=== PATIENT | male | born 1950 | race Caucasian/White ===

== ENCOUNTER 2024-02-01 20:30 | Outpatient (REF) | payer MEDICARE, SELFPAY ==
[2024-02-01 18:27] LABS: HCT 51.8 % (40.0-50.0); HGB 16.5 g/dL (13.5-17.5); MCH 28.1 pg (27.0-33.0); MCHC 31.9 % (32.0-36.0); MCV 88 fL (80-95); MPV 10.2 fL (8.0-11.0); Platelet Count 182 10^3/uL (130-400); RBC 5.88 10^6/uL (4.36-5.78); RDW 17.2 % (11.8-14.1); RDW-SD 54.5 fL; WBC 5.01 10^3/uL (4.4-10.8)
[2024-02-01 18:37] LABS: ALT 50 U/L (16-63); AST 28 U/L (15-37); Albumin 4.1 g/dL (3.4-5.0); Alkaline Phosphatase 80 U/L (46-116); Anion Gap 9.9 mmol/L (3-11); BUN 18 mg/dL (7-18); CO2 27.1 mmol/L (21.0-32.0); CREATININE 1.1 mg/dL (0.70-1.30); Calcium 9.7 mg/dL (8.5-10.1); Calculated LDL 135 mg/dL (<100); Chloride 104 mmol/L (98-107); Cholesterol 226 mg/dL (<200); Estimated GFR 71.32 (mL/min/1.73m2); Glucose 94 mg/dL (74-106); HDL Cholesterol 46 mg/dL (40-60); Potassium 4.6 mmol/L (3.5-5.1); Sodium 141 mmol/L (136-145); Total Protein 7.9 g/dL (6.4-8.2); Triglyceride 226 mg/dL (<150)
[2024-02-10 13:06] LABS: Testosterone, Free 3.07 ng/dL (3.28-12.2); Testosterone, Total 78 ng/dL (240-950)
== END 2024-02-01 20:31 | disposition home or self-care (01) ==
LOC: NCHCN 20:30
PROVIDERS: Visit Provider Family Medicine
DX: E78.5 Hyperlipidemia, unspecified (principal); E29.1 Testicular hypofunction
CPT/HCPCS: 80053; 80061; 84402; 84403; 85027

== ENCOUNTER 2024-07-19 22:07 | Outpatient (REF) | payer MEDICARE, SELFPAY ==
[2024-07-19 21:31] LABS: Bilirubin Negative (Negative); Blood Negative (Negative); Clarity Clear (Clear); Glucose Negative (Negative); Ketones Negative (Negative); Leukocyte Esterase Negative (Negative); Nitrite Negative (Negative); Specific Gravity 1.025 (1.005-1.025); Urobilinogen 0.2 mg/dL (Up to 0.2)
[2024-07-19 21:32] LABS: Abs Immature Grans 0.02 10^3/uL (0.0-0.06); Absolute Basophil Count 0.06 10^3/uL (0.0-0.2); Absolute Eosinophil Count 0.16 10^3/uL (0.0-0.7); Absolute Lymphocyte Count 2.15 10^3/uL (1.2-3.4); Absolute Monocyte Count 0.78 10^3/uL (0.1-0.8); Absolute Neutrophil Count 3.69 10^3/uL (1.2-6.7); Basophils % 0.9 %; Eosinophils % 2.3 %; HCT 54.9 % (40.0-50.0); Immature Grans % 0.3 %; Lymphocytes % 31.3 %; MCH 30.9 pg (27.0-33.0); MCHC 32.8 % (32.0-36.0); MCV 94 fL (80-95); MPV 9.9 fL (8.0-11.0); Monocytes % 11.4 %; Neutrophils % 53.8 %; Platelet Count 198 10^3/uL (130-400); RBC 5.83 10^6/uL (4.36-5.78); RDW 14.8 % (11.8-14.1); RDW-SD 51.6 fL; WBC 6.86 10^3/uL (4.4-10.8)
[2024-07-19 21:53] LABS: ALT 57 U/L (16-63); AST 30 U/L (15-37); Alkaline Phosphatase 74 U/L (46-116); Anion Gap 9.4 mmol/L (3-11); BUN 15 mg/dL (7-18); CO2 26.6 mmol/L (21.0-32.0); CREATININE 1.1 mg/dL (0.70-1.30); Chloride 101 mmol/L (98-107); Estimated GFR 70.88 (mL/min/1.73m2); Glucose 83 mg/dL (74-106); Lipase 42 U/L (16-77); Potassium 4.3 mmol/L (3.5-5.1); Sodium 137 mmol/L (136-145); Total Protein 7.8 g/dL (6.4-8.2)
[2024-07-19 21:58] LABS: Calcium 9.8 mg/dL (8.5-10.1)
--- OUTSIDE RECORDS SUMMARY | 2024-07-19 22:10 | XMS_ITS | Encounter Summary ---
Author Organization [facility] Address [address] [place] [address] Care Team Providers Care Electrical Assembler Name Role Phone Marco Aleman MD Primary Care Provider [phone] Reason for Visit * Auth/Cert (Routine) Specialty Diagnoses / Procedures Referred By Yi cummings Referred To Contact Diagnoses Chronic pain of left knee Chronic pain of left knee [M25.562, G89.29] Procedures ME ARTHROSCOPY KNEE REMOVAL LOOSE/FOREIGN BODY ME ARTHRS KNEE W/MENISCECTOMY MED&LAT W/SHAVING ME ARTHRS KNEE DEBRIDEMENT/SHAVING ARTCLR CRTLG ME ARTHROSCOPY KNEE SYNOVECTOMY LIMITED SPX ARTHROSCOPY, KNEE, WITH LOOSE OR FOREIGN BODY REMOVAL MENISCECTOMY, KNEE, MEDIAL AND LATERAL, ARTHROSCOPIC, WITH ARTICULAR CARTILAGE SHAVING ARTHROSCOPY, KNEE, WITH DEBRIDEMENT OR SHAVING OF ARTICULAR CARTILAGE ARTHROSCOPY, KNEE, WITH LIMITED SYNOVECTOMY Referral ID Status Reason Start Date Expiration Date Visits Re quested Visits Authorized [id number] 1 1 Encounter Details Date Type Department Care Team (Late st Contact Info) Description 02/16/2024 13:05 EDT - 02/16/2024 14:15 EDT Surgery [facility] Room [address] [place], [place] [id number] Asad Patel MD [address] [facility] [address] [place], [place] [address] ARTHROSCOPY, KNEE, WITH LOOSE OR FOREIGN BODY REMOVAL [[id number] (CPT??)] Surgery Details Date/Time Status Location OR Service Patient Class Case Cl ass Case Type Trauma Case? 02/16/24 1305 Posted [facility] [place] OR Orthopedics [facility] Outpatient Surgery H - Elective Panel 1 Procedure LRB Anes Op Region Wound Class Comments ARTHROSCOPY, KNEE, WITH LOOS E OR FOREIGN BODY REMOVAL Left General Knee Class I/ Clean MENISCECTOMY, KNEE, MEDIAL A ND LATERAL, ARTHROSCOPIC, WITH ARTICULAR CARTILAGE SHAVING Left General Knee Class I/ Clean ARTHROSCOPY, KNEE, WITH DEBR IDEMENT OR SHAVING OF ARTICULAR CARTILAGE Left General Knee Class I/ C lean ARTHROSCOPY, KNEE, WITH LIMI JORDEN SYNOVECTOMY Left General Knee Class I/ Clean Surgeon Surgeon Role Service Panel Asad Patel MD Primary Orthopedics 1 Mami Grover PA-C Assisting Orthopedics 1 Special Needs CM documented in this encounter Social History Tobacco Use Types Packs/Day Years Used Date Smoking Tobacco: Former Cigarettes 1 15 Smokeless Tobacco: Never Alcohol Use Standard Drinks/Week Comments Yes 7 (1 standard drink = 0.6 oz pur e alcohol) Interpersonal Safety Answer Date Record ed Physically Hurt Never 06/03/2020 Verbally Threaten Not on file 06/03/2020 Sex and Gender Information Value Date Recorded Sex Assigned at Male 12/26/2021 11:38 EST Gender Identity Male 06/20/2020 15:19 EDT Sexual Orientation Straight 12/26/2021 11 :37 EST documented as of this encounter Last Filed Vital Signs Vital Sign Reading Time Taken Comments Blood Pressure 158/81 02/16/2024 1144 EDT Pulse - - Temperature 36.5 ??C (97.7 ??F) 02/16/2024 1144 EDT Respiratory Rate 18 02/16/2024 1231 EDT Oxygen Saturation 96% 02/16/2024 1231 EDT Inhaled Oxygen Concentration - - Weight 111.1 kg (245 lb) 02/16/2024 1130 EDT Height 180.3 cm (5' 11) 02/16/2024 1130 EDT Body Mass Index 34.17 02/16/2024 1130 EDT documented in this encounter Functional Status Functional Status Response Date of Assess ment Are you deaf or do you have serious difficulty h earing? No 02/10/2023 Are you blind or do you have serious difficulty seeing, even when wearing glasses? No 02/10/2023 Do you have serious difficul ty walking or climbing stairs? (5 years old or older) No 02/10/2023 Do you have difficulty dress ing or bathing? (5 years old or older) No 02/10/2023 Because of a physical, menta l, or emotional condition, do you have difficulty doing errands alone such as visiting a doctor's office or shopping? (15 years old or older) No 02/10/2023 Cognitive Status Response Date of Assessm ent Because of a physical, menta l, or emotional condition, do you have serious difficulty concentrating, remembering, or making decisions? (5 years old or older) No 02/10/2023 documented as of this encounter Discharge Instructions * Discharge Instructions* Teresa Ortiz RN - 02/16/2024 12:00 EDT Knee Surgery Patient Information Packet Post-Operative Care Instructions In this packet, we have complied some information to make your recovery easier after surgery. If you have any questions, please don't hesitate to call the office and we will try our best to answer your questions are quickly and completely as possible. Medications You will be provided with specific prescriptions for medications at your pre- operative appointment.These medications may include specific pain medications, medications to relieve muscle spasm, anxiety, and insomnia, nausea, and medication to help prevent blood clots. In all cases, please take these medications according to the respective instructions. Post-Operative medications Medication Dosage Frequency Reason Oxycodone 5mg 1-2 tab per 6 hours Pain Robaxin 500mg 1-2 tabs per 6 hours Muscle spasm Ondansetron (Zofran) 4mg 1 per 6-8 hours Nausea Aspirin 325mg Depending on surgery DVT prevention Prescription pain Medication Take this medication with food. Additionally, pain medications may cause post- operative constipation. Please drink plenty of fluids, and take the prescribed stool softeners. Please do not: Mix with alcohol or marijuana Drive while taking prescription pain medication Take any additional Tylenol if on Vicodin, Percocet, or [place] unless instructed to by a doctor No more than 3000mg (3g) of Tylenol per 24 hour period Anti Inflammatory USE Please try to limit the use of nonsteroidal anti-inflammatories for the first 4 weeks after surgery. This does not include aspirin or indomethacin prescribed during some procedures. Should your pain not be controlled on the prescribed medications or with the addition of Tylenol at home, please contact our office for discussion regarding the possible addition of nonsteroidal anti-inflammatory medication to your pain control plan. Post-Operative Care Instructions Crutch Use Depending of the type of surgery performed, you may be required to use crutches. You will be provided with a specific physical therapy protocol which will explain the details of crutch use. BRACE/SLING Use Weight-bearing ? Non-weight bearing: No pressure may be applied to affected leg. ? Toe Touch Weight Bearing: A small amount of your weight (no more than 10 lbs) may be supported bythe affected leg. ? Partial Weight Bearing: % of your total weight may be supported by the affected leg. X Full Weight Bearing: All of your weight may be supported by the affected leg. aCTIVE fOOT/calf Pumps 10 up and down pumps of feet every hour while awake. Please perform these particularly when at rest, in a vehicle, or on an airplane Breathing Exercises You will be provided with an incentive spirometer after surgery. Please use this to perform 10 deep breaths every hour while awake. Icing AND eLEVATION Ice your knee, particularly in the first several weeks, is encouraged Icing may be performed by applying ice in a 30 minutes on/off pattern. Always have a protective layer between your skin and the ice. Elevation of the leg aids in preventing swelling and with pain control. Dressing Changes and SHOWERING Please keep dressings clean and intact You may remove the JAY JAY wrap after 3 days but keep underlying dressing intact If showering, avoid direct contact of water with dressing. Sutures Dissolvable These look like clear fishing line. They require no care. Some incisions have ???tails?? of suturefrom either end. If this is the case, they will be cut during the first follow-up appointment. These sutures gradually resorb on their own below the skin. physical therapy You will be provided with a physical therapy prescription. Please contact if any questions. It is extremely important to remain complaint with the instructions. Physical therapy typically begins the day after the surgery. fOLLOW-UP aPPOINTMENTS You will be scheduled for a follow-up appointment prior to your surgery. At this visit, your surgeon and the staff will ensure that the incision is healing well, will remove sutures if necessary, will review post-operative instructions and operative findings, and answer any and all questions that you may have. Questions / Problems Call our office or present to your primary doctor or an emergency room if the following occur: Fever (greater than 101.8 degrees F), chills, sweats Non-clear drainage from the incision and/or significant redness surrounding incision Calf swelling, redness, pain, chest pain, difficulty breathing Office Contact Number: [phone] You had tylenol 975 mg at 4 pm, next dose due at 10 pm if needed documented in this encounter Medications at Time of Discharge Medication Sig Dispensed Refills Start Date End Date ascorbic acid, vitamin C, (VITAMIN C) 500 mg tablet Take 2 Tablets by mouth daily. aspirin 325 mg tablet Take 1 Tablet by mouth daily. BENFOTIAMINE ORAL Take by mouth daily. blood glucose meter Glucose monitor,Sig: test once a day once a day 07/19/2018 blood glucose test strips Brand: One Touch Ultra, test blood sugar once daily 100 Each 3 02/04/2021 buPROPion (WELLBUTRIN SR) 150 mg SR tablet Take 1 tablet by mouth once daily 90 Tablet 09/11/2023 cholecalciferol, Vitamin D3, 125 mcg (5000 unit) capsule Take by mouth daily. clopidogreL (PLAVIX) 75 mg tabletIndications:Dyslip idemia Take 1 Tablet by mouth daily. 90 Tablet 3 10/16/2022 DIABETIC SUPPLIES, [facility] Sy[facility]cc 02/17/2017 diazePAM (VALIUM) 5 mg tablet Take 1-2 tabs 1 hr prior to flights and before procedure 10 Tablet 03/12/2023 famotidine (PEPCID) 40 mg tablet Take 1 Tablet by mouth daily. lamoTRIgine (LAMICTAL) 25 mg tablet One po bid 180 Tablet 5 02/22/2023 LANCETS & BLOOD GLUCOSE STRIPS [facility] test strips and lancets for glucose monitor , Sig: test once a day test once a day 09/20/2018 Magnesium 250 mg tablet Take 500 mg by mouth daily. niacin (NICOTINIC ACID) 100 mg tablet Take 1 Tablet by mouth daily. nitroGLYCERIN (NITROSTAT) 0.[address] 1 Tablet under the tongue as needed. 07/07/2014 Ggwrx-0-KVS-EPA-Fish Oil 1,000 (120-180) mg capsule Take 1,000 mg by mouth 2 times daily. POTASSIUM ACETATE MISC 90 mg by misc (non-drug; combo route) route daily. propRANolol (INDERAL) 10 mg tablet Take 1 Tablet by mouth 2 times daily. 20mg in AM, 10mg in PM testosterone cypionate (DEPO-TESTOSTERONE) 200 mg/mL injection Inject 1.5 mL into the muscle once a week. 2 vials of 10mL please Daily Max: 300 mg 20 mL 1 05/21/2023 VITAMIN B COMPLEX ORAL Take by mouth daily. vitamin E mixed/tocotrienol (VITAMIN E COMPLEX ORAL) Take 400 mg by mouth daily. erythromycin (ROMYCIN) 5 mg/gram (0.5 %) ophthalmic ointment Apply 11/05 strip 3.5 g 10/10/2021 06/03/2024 L.acid/L.casei/B.bif/B.l on/FOS (PROBIOTIC BLEND ORAL) Take by mouth daily. 06/03/2024 MEDICAL MARIJUANA 06/03/2024 methocarbamoL (ROBAXIN) 500 mg tablet Take 1 Tablet by mouth 4 times daily as needed for Muscle Spasms or Pain. 20 Tablet 02/16/2024 06/03/2024 ondansetron (ZOFRAN-ODT) 4 mg disintegrating tablet Take 1 Tablet by mouth every 8 hours as needed for Nausea. 15 Tablet 02/16/2024 06/03/2024 oxyCODONE (ROXICODONE) 5 mg immediate release tablet Take 1 Tablet by mouth every 6 hours as needed for Pain. Daily Max: 20 mg 9 Tablet 02/16/2024 06/03/2024 pantoprazole (PROTONIX) 40 mg tablet Take 1 tablet by mouth once daily 90 Tablet 09/11/2023 06/03/2024 ubidecarenone/vitamin E mixed (COQ10 SG 100 ORAL) Take by mouth daily. 06/03/2024 documented as of this encounter Ordered Prescriptions Prescription Sig Dispensed Refills Start Date End Da te ondansetron (ZOFRAN-ODT) 4 mg disintegrating tablet Take 1 Tablet by mouth every 8 hours as needed for Nausea. 15 Tablet 02/16/2024 06/03/2024 methocarbamoL (ROBAXIN) 500 mg tablet Take 1 Tablet by mouth 4 times daily as needed for Muscle Spasms or Pain. 20 Tablet 02/16/2024 06/03/2024 oxyCODONE (ROXICODONE) 5 mg immediate release tablet Take 1 Tablet by mouth every 6 hours as needed for Pain. Daily Max: 20 mg 9 Tablet 02/16/2024 06/03/2024 documented in this encounter Discharge Disposition Disposition Code Departure Means Destination Comment s Home or Self Care Car Home documented in this encounter H&P Notes * Asad Patel MD - 02/16/2024 1200 EDT The preoperative history and physical which was performed within 30 days of this procedure has been reviewed and the clinically appropriate elements of the physical examination have been repeated. There are no changes to the documented history and physical or if so such changes are documented below General Exam: GENERAL APPEARANCE: no acute distress, pleasant, cooperative. CHEST: normal shape and expansion. HEART: regular rate and rhythm, no murmurs. LUNGS: clear to auscultation, unlabored. ABDOMEN: no deformity, distention, no obvious distress Asad Patel MD 02/16/2024 12:00 Source Note - Asad Patel MD - 02/16/2024 11:59 EDT The patient presents today for surgical consultation. Please see prior notes full HPI. Primary concern at this time is mechanical symptoms associated with a loose body throughout the knee. At baseline, he reports that he has minimal pain. He is aware that he does have significant radiographic signsof arthritis. Interested in surgical alleviation of the mechanical symptoms. The patient is unable to tolerate an MRI secondary to severe claustrophobia. A 10-point review of systems has been reviewed and all are negative unless noted above. Past Medical History: Diagnosis Date Abnormal stress test 04/20/2017 s/p JANET Activity, other involving cardiorespiratory exercise 01/30/23- able to climb 2 FOS w/o SOB Amblyopia per pt-left eye Anemia 02/10/2023 Anomaly, cardiac cardiac stents Arrhythmia 01/30/23- currently has zio patch for palpitations, CP, and SOB Cancer ([facility]) prostates and skin cancer Cerebral artery occlusion with cerebral infarction ([facility]) 2018 01/30/23-Acute ischemic left MCA stroke. no residual deficits Chest pain 01/30/23- currently has zio patch for palpitations, CP, and SOB Claustrophobia 01/30/23- in closed room Colon polyp Exercise involving housework GERD (gastroesophageal reflux disease) 01/30/23- controlled w/ Protonix, sleeps on side for comfort History of general anesthesia Hyperlipidemia Hypertension 01/30/23- well controlled per pt LA (myocardial infarction) ([facility]) 2007 x2. 2008 & 2010. JANET x4 Poor dentition 01/30/23- reports having 2 broken teeth Rash 01/30/23- eczema on face Seizures ([facility]) 2019 01/30/23- well controlled on Lamictal, thought to be due to high dose Wellbutrin. None since 2018 Shortness of breath 01/30/23- currently has zio patch for palpitations, CP, and SOB Social History Tobacco Use Smoking status: Former Smokeless tobacco: Never Substance Use Topics Alcohol use: Yes Alcohol/week: 7.0 standard drinks of alcohol Types: 7 Glasses of wine per week Past Surgical History: Procedure Laterality Date CARDIAC CATHERIZATION 12/2004 normal - [address] Evans [facility] COLONOSCOPY 12/2004 WNL - Dr. Turcios f/u 10 yrs CORONARY ANGIOPLASTY WITH STENT PLACEMENT 2010 NSTEMI s/p JANET FOOT SURGERY Right tendon surgery RADICAL PROSTATECTOMY 12/2004 Laparoscopic radical prostatectomy, umbilical hernia repair - Dr. Encinas [facility] SINUS SURGERY nasal / sinus surgery Allergies Allergen Reactions Other - See Comments Lisinopril Swelling of tongue Sulfa (Sulfonamide Antibiotics) Shortness Of Breath and Swelling Cyclobenzaprine Other reaction(s): Unknown Ibuprofen Swelling Other reaction(s): edema Naproxen Sodium Swelling Other reaction(s): edema Tramadol Other (See Comments) Other reaction(s): DIZZINESS Medications Prior to Today's Visit Medication Sig ascorbic acid, vitamin C, (VITAMIN C) 500 mg tablet Take 2 Tablets by mouth daily. aspirin 325 mg tablet Take 1 Tablet by mouth daily. BENFOTIAMINE ORAL Take by mouth daily. blood glucose meter Glucose monitor,Sig: test once a day once a day (Patient not taking: Reported on 12/08/2023) blood glucose test strips Brand: One Touch Ultra, test blood sugar once daily (Patient not taking: Reported on 12/08/2023) buPROPion (WELLBUTRIN SR) 150 mg SR tablet Take 1 tablet by mouth once daily cholecalciferol, Vitamin D3, 125 mcg (5000 unit) capsule Take by mouth daily. clopidogreL (PLAVIX) 75 mg tablet Take 1 Tablet by mouth daily. DIABETIC SUPPLIES, MISCELLAN. MISC Syringe 3cc (Patient not taking: Reported on 12/08/2023) diazePAM (VALIUM) 5 mg tablet Take 1-2 tabs 1 hr prior to flights and before procedure erythromycin (ROMYCIN) 5 mg/gram (0.5 %) ophthalmic ointment Apply 11/05 strip (Patient not taking: Reported on 12/08/2023) L.acid/L.casei/B.bif/B.mila/FOS (PROBIOTIC BLEND ORAL) Take by mouth daily. (Patient not taking: Reported on 12/08/2023) lamoTRIgine (LAMICTAL) 25 mg tablet One po bid LANCETS & BLOOD GLUCOSE STRIPS MIS test strips and lancets for glucose monitor , Sig: test once a day test once a day Magnesium 250 mg tablet Take 500 mg by mouth daily. MEDICAL MARIJUANA niacin (NICOTINIC ACID) 100 mg tablet Take 1 Tablet by mouth 2 times daily. nitroGLYCERIN (NITROSTAT) 0.[address] 1 Tablet under the tongue as needed. Ayggw-4-HDU-EPA-Fish Oil 1,000 (120-180) mg capsule Take 1,000 mg by mouth 2 times daily. pantoprazole (PROTONIX) 40 mg tablet Take 1 tablet by mouth once daily (Patient not taking: Reported on 12/08/2023) POTASSIUM ACETATE MISC 90 mg by misc (non-drug; combo route) route daily. testosterone cypionate (DEPO-TESTOSTERONE) 200 mg/mL injection Inject 1.5 mL into the muscle once aweek. 2 vials of 10mL please Daily Max: 300 mg ubidecarenone/vitamin E mixed (COQ10 SG 100 ORAL) Take by mouth daily. vitamin E mixed/tocotrienol (VITAMIN E COMPLEX ORAL) Take 400 mg by mouth daily. No facility-administered medications prior to visit. OBJECTIVE: There were no vitals taken for this visit. On physical exam, the patient is found to be an alert and cooperative male who appears to be alert and oriented x 3. He is well-developed, well-nourished and in no significant distress. Breathing is unlabored. Skin is warm pink and dry to inspection and palpation. Overlying skin intact. No gross deformity. Mechanical symptoms not palpable currently, but the patient reports that this is not unusual for him. He states that he does have periods of time where he is asymptomatic, and then the loose body changes into a symptomatic area in his knee with significantdiscomfort. Stable to stress throughout. Distally neurovascular intact. ASSESSMENT: Left knee loose body PLAN: I had a detailed discussion with the patient today. Overall, he has a good understanding thatany potential surgical intervention from an arthroscopic standpoint would not be treating his underlying degenerative changes, but only his mechanical symptoms and loose body. He voiced understandingof this and would like to proceed. Written informed sent was obtained. He will meet with the surgery coordinator to discuss the details of operative booking. The patient will require clearance from both primary care as well as cardiology. All questions answered in detail. * Asad Patel MD - 02/16/2024 1159 EDT The patient presents today for surgical consultation. Please see prior notes full HPI. Primary concern at this time is mechanical symptoms associated with a loose body throughout the knee. At baseline, he reports that he has minimal pain. He is aware that he does have significant radiographic signsof arthritis. Interested in surgical alleviation of the mechanical symptoms. The patient is unable to tolerate an MRI secondary to severe claustrophobia. A 10-point review of systems has been reviewed and all are negative unless noted above. Past Medical History: Diagnosis Date Abnormal stress test 04/20/2017 s/p JANET Activity, other involving cardiorespiratory exercise 01/30/23- able to climb 2 FOS w/o SOB Amblyopia per pt-left eye Anemia 02/10/2023 Anomaly, cardiac cardiac stents Arrhythmia 01/30/23- currently has zio patch for palpitations, CP, and SOB Cancer ([facility]) prostates and skin cancer Cerebral artery occlusion with cerebral infarction ([facility]) 2018 01/30/23-Acute ischemic left MCA stroke. no residual deficits Chest pain 01/30/23- currently has zio patch for palpitations, CP, and SOB Claustrophobia 01/30/23- in closed room Colon polyp Exercise involving housework GERD (gastroesophageal reflux disease) 01/30/23- controlled w/ Protonix, sleeps on side for comfort History of general anesthesia Hyperlipidemia Hypertension 01/30/23- well controlled per pt LA (myocardial infarction) ([facility]) 2007 x2. 2008 & 2011. JANET x4 Poor dentition 01/30/23- reports having 2 broken teeth Rash 01/30/23- eczema on face Seizures ([facility]) 2019 01/30/23- well controlled on Lamictal, thought to be due to high dose Wellbutrin. None since 2018 Shortness of breath 01/30/23- currently has zio patch for palpitations, CP, and SOB Social History Tobacco Use Smoking status: Former Smokeless tobacco: Never Substance Use Topics Alcohol use: Yes Alcohol/week: 7.0 standard drinks of alcohol Types: 7 Glasses of wine per week Past Surgical History: Procedure Laterality Date CARDIAC CATHERIZATION 12/[address] - [address] Evans [facility] COLONOSCOPY 12/2004 WNL - Dr. Turcios f/u 10 yrs CORONARY ANGIOPLASTY WITH STENT PLACEMENT 2010 NSTEMI s/p JANET FOOT SURGERY Right tendon surgery RADICAL PROSTATECTOMY 12/2004 Laparoscopic radical prostatectomy, umbilical hernia repair - Dr. Encinas [facility] SINUS SURGERY nasal / sinus surgery Allergies Allergen Reactions Other - See Comments Lisinopril Swelling of tongue Sulfa (Sulfonamide Antibiotics) Shortness Of Breath and Swelling Cyclobenzaprine Other reaction(s): Unknown Ibuprofen Swelling Other reaction(s): edema Naproxen Sodium Swelling Other reaction(s): edema Tramadol Other (See Comments) Other reaction(s): DIZZINESS Medications Prior to Today's Visit Medication Sig ascorbic acid, vitamin C, (VITAMIN C) 500 mg tablet Take 2 Tablets by mouth daily. aspirin 325 mg tablet Take 1 Tablet by mouth daily. BENFOTIAMINE ORAL Take by mouth daily. blood glucose meter Glucose monitor,Sig: test once a day once a day (Patient not taking: Reported on 12/08/2023) blood glucose test strips Brand: One Touch Ultra, test blood sugar once daily (Patient not taking: Reported on 12/08/2023) buPROPion (WELLBUTRIN SR) 150 mg SR tablet Take 1 tablet by mouth once daily cholecalciferol, Vitamin D3, 125 mcg (5000 unit) capsule Take by mouth daily. clopidogreL (PLAVIX) 75 mg tablet Take 1 Tablet by mouth daily. DIABETIC SUPPLIES, MISCELLAN. MISC Syringe 3cc (Patient not taking: Reported on 12/08/2023) diazePAM (VALIUM) 5 mg tablet Take 1-2 tabs 1 hr prior to flights and before procedure erythromycin (ROMYCIN) 5 mg/gram (0.5 %) ophthalmic ointment Apply /4 strip (Patient not taking: Reported on 12/08/2023) L.acid/L.casei/B.bif/B.mila/FOS (PROBIOTIC BLEND ORAL) Take by mouth daily. (Patient not taking: Reported on 12/08/2023) lamoTRIgine (LAMICTAL) 25 mg tablet One po bid LANCETS & BLOOD GLUCOSE STRIPS MISC test strips and lancets for glucose monitor , Sig: test once a day test once a day Magnesium 250 mg tablet Take 500 mg by mouth daily. MEDICAL MARIJUANA niacin (NICOTINIC ACID) 100 mg tablet Take 1 Tablet by mouth 2 times daily. nitroGLYCERIN (NITROSTAT) 0.[address] 1 Tablet under the tongue as needed. Hlobd-6-NEK-EPA-Fish Oil 1,000 (120-180) mg capsule Take 1,000 mg by mouth 2 times daily. pantoprazole (PROTONIX) 40 mg tablet Take 1 tablet by mouth once daily (Patient not taking: Reported on 12/08/2023) POTASSIUM ACETATE MISC 90 mg by misc (non-drug; combo route) route daily. testosterone cypionate (DEPO-TESTOSTERONE) 200 mg/mL injection Inject 1.5 mL into the muscle once aweek. 2 vials of 10mL please Daily Max: 300 mg ubidecarenone/vitamin E mixed (COQ10 SG 100 ORAL) Take by mouth daily. vitamin E mixed/tocotrienol (VITAMIN E COMPLEX ORAL) Take 400 mg by mouth daily. No facility-administered medications prior to visit. OBJECTIVE: There were no vitals taken for this visit. On physical exam, the patient is found to be an alert and cooperative male who appears to be alert and oriented x 3. He is well-developed, well-nourished and in no significant distress. Breathing is unlabored. Skin is warm pink and dry to inspection and palpation. Overlying skin intact. No gross deformity. Mechanical symptoms not palpable currently, but the patient reports that this is not unusual for him. He states that he does have periods of time where he is asymptomatic, and then the loose body changes into a symptomatic area in his knee with significantdiscomfort. Stable to stress throughout. Distally neurovascular intact. ASSESSMENT: Left knee loose body PLAN: I had a detailed discussion with the patient today. Overall, he has a good understanding thatany potential surgical intervention from an arthroscopic standpoint would not be treating his underlying degenerative changes, but only his mechanical symptoms and loose body. He voiced understandingof this and would like to proceed. Written informed sent was obtained. He will meet with the surgery coordinator to discuss the details of operative booking. The patient will require clearance from both primary care as well as cardiology. All questions answered in detail. documented in this encounter OR Notes * OR Surgeon - Asad Patel MD - 02/16/2024 1417 EDT OPERATIVE REPORT PATIENT NAME: Roland Vega DATE OF : 52 SURGEON: Frida Patel MD [employer] OPERATOR: LAZARO Birch DATE OF SURGERY: 02/16/24 PREOPERATIVE DIAGNOSIS: Left knee medial and lateral meniscus tear Left knee synovitis and pain Left knee loose body POSTOPERATIVE DIAGNOSIS: As above PROCEDURES PERFORMED: Left knee arthroscopy with loose body removal Left knee arthroscopy with synovectomy, debridement, chondroplasty Left knee arthroscopy with partial medial and lateral meniscectomy ANESTHESIA: General IVF: Please see anesthesia report EBL: Minimal TOURNIQUET TIME: 11 minutes SPECIMENS: None DRAINS: None IMPLANTS: None DISPOSITION: Stable to PACU INDICATIONS FOR PROCEDURE: The patient is a pleasant 73 year-old who presents with a chief complaint of left knee pain. They were diagnosed with a left knee loose body. They failed to improve with nonoperative management and were offered surgery. They elected to proceed. The risks and benefits of the procedure were discussedin detail and the patient voiced their understanding and written informed consent was obtained. PROCEDURE IN DETAIL: The patient was met in the preoperative holding area where the consent was again reviewed. They voiced understanding elected to proceed. They were brought to the operating room where general anesthesia was induced without complication. The left lower extremity was prepped and draped in the usual standard sterile fashion. An orthopedic timeout was conducted to confirm correct patient name, operative site and all procedures to be performed. Antibiotics were infused. The tourniquet was inflated and a standard anterolateral viewing portal was created. The arthroscope was inserted into the knee joint and a thorough diagnostic arthroscopy was performed. This was notable for significant synovitis within the suprapatellar pouch and anterior interval. There is a large impinging osteophyte of the inferior aspect of the patella. There is a 1 cm sized loose body within the superior medial aspect of the joint. ACL and PCL intact. Peripheral tearing of the medial meniscus. Peripheral tearing of the lateral meniscus. Grade 3-4 changes in the patellofemoral compartment. Grade 3 changes in the medial and lateral compartment.. Under direct spinal needle visualization,an anterior medial working portal was created. Through this working portal, commendation mechanicalshaver and radiofrequency wand were utilized to perform a synovectomy, debridement, chondroplasty. Loose body was removed. The aforementioned impinging osteophyte was removed. Using a combination of meniscal biter and mechanical shaver, a medial and lateral partial meniscectomy was performed. Following this, attention was turned to wound closure. All wounds were thoroughly irrigated. They were closed with buried 3-0 Monocryl suture. Sterile dressings were applied. The patient was awakened from anesthesia and transferred the PACU in stable condition. All sponge and needle counts were correct at the end of the case. A skilled assistant professor surgical technology was necessary to complete the procedure in a technically safe and efficient manner. POSTOPERATIVE PLAN: The patient will be weightbearing as tolerated on the affected extremity. They were provided with all necessary postoperative instructions, follow-up information, and medications. It is our expectation that we will see the patient back in the office in 10 to 14 days, or earlier if there are any concerns. * Preprocedure Instructions - Alondra Arnold RN - 02/12/2024 1000 EDT The following preoperative instructions have been provided via phone. Date of procedure: 02/16/24 Arrival time: 1145 (this time is subject to change, we would call you the day before if a change occurs) Roland Vega has been instructed as follows regarding medication administration for the day of the scheduled procedure. Instructions for Taking Medications Day of Surgery Medication Dose and frequency Last Dose Hold Day of Surgery Take Day of Surgery ascorbic acid, vitamin C, (VITAMIN C) 500 mg tablet Take 2 Tablets by mouth daily. X aspirin 325 mg tablet Take 1 Tablet by mouth daily. X BENFOTIAMINE ORAL Take by mouth daily. X blood glucose meter Glucose monitor,Sig: test once a day once a day Patient not taking: Reported on 12/08/2023 blood glucose test strips Brand: One Touch Ultra, test blood sugar once daily Patient not taking: Reported on 12/08/2023 buPROPion (WELLBUTRIN SR) 150 mg SR tablet Take 1 tablet by mouth once daily X cholecalciferol, Vitamin D3, 125 mcg (5000 unit) capsule Take by mouth daily. X clopidogreL (PLAVIX) 75 mg tablet Take 1 Tablet by mouth daily. Hold 5 days prior DIABETIC SUPPLIES, MISCELLAN. MISC Syringe 3cc Patient not taking: Reported on 12/08/2023 diazePAM (VALIUM) 5 mg tablet Take 1-2 tabs 1 hr prior to flights and before procedure X erythromycin (ROMYCIN) 5 mg/gram (0.5 %) ophthalmic ointment Apply 1/4 strip Patient not taking: Reported on 12/08/2023 Not taking famotidine (PEPCID) 40 mg tablet Take 1 Tablet by mouth daily. X L.acid/L.casei/B.bif/B.mila/FOS (PROBIOTIC BLEND ORAL) Take by mouth daily. Patient not taking: Reported on 12/08/2023 X lamoTRIgine (LAMICTAL) 25 mg tablet One po bid Patient taking differently: Take 1 Tablet by mouth 2 times daily. Three pills po bid, for anxiety X LANCETS & BLOOD GLUCOSE STRIPS MISC test strips and lancets for glucose monitor , Sig: test once a day test once a day Patient not taking: Reported on 02/12/2024 Not Taking Magnesium 250 mg tablet Take 500 mg by mouth daily. X MEDICAL MARIJUANA Not taking niacin (NICOTINIC ACID) 100 mg tablet Take 1 Tablet by mouth daily. X nitroGLYCERIN (NITROSTAT) 0.[address] 1 Tablet under the tongue as needed. Qnggs-2-IXH-EPA-Fish Oil 1,000 (120-180) mg capsule Take 1,000 mg by mouth 2 times daily. X pantoprazole (PROTONIX) 40 mg tablet Take 1 tablet by mouth once daily Patient not taking: Reported on 12/08/2023 Not taking POTASSIUM ACETATE MISC 90 mg by misc (non-drug; combo route) route daily. Patient not taking: Reported on 02/12/2024 Not Taking testosterone cypionate (DEPO-TESTOSTERONE) 200 mg/mL injection Inject 1.5 mL into the muscle once aweek. 2 vials of 10mL please Daily Max: 300 mg X ubidecarenone/vitamin E mixed (COQ10 SG 100 ORAL) Take by mouth daily. X VITAMIN B COMPLEX ORAL Take by mouth daily. X vitamin E mixed/tocotrienol (VITAMIN E COMPLEX ORAL) Take 400 mg by mouth daily. X Instructions for Roland Marisela Vega's Procedure at [facility] . These instructions are being given for your safety and to prevent your surgery from being delayed or canceled. IF YOU FEEL SICK within 7 days of your procedure CALL YOUR SURGEON. If you have MyChart, you will receive 2 questionnaires (???Pre-surgery Questionnaire?? and ???History?? ) prior to your procedure. Please fill these out so we can safely care for you during your procedure. Getting ready at home 24 hours before your procedure: Stop any smoking, vaping or chewing products. Before your procedure: Stop eating and drinking by midnight. This includes chewing gum, mints, candy and Tums. EXCEPT: You CAN have a small sip of water (only water) with the medications your doctor or nurse asked you to take before arriving at the hospital. You CAN have water or a clear electrolyte drink 4 hours before you arrive (Pedialyte, Gatorade, Powerade, etc.) Avoid red colored drinks Grooming Please take a bath or shower to clean your skin. Do not put on any lotions, makeup, deodorants, oils, powders, perfumes or colognes. Do not shave the procedure area. Remove all nail polishes from fingers and toes. What to bring to the hospital and what to keep at home: Plan to wear clean and comfortable clothing. If you wear contacts, plan to wear glasses instead. Please leave at home: Any body piercings or jewelry, including your wedding band. Your home medications. Extra luggage or a large bag. We will provide you with a bag for any items. Valuables, valenzuela or credit cards. [facility] is not responsible for any lost items during your hospital visit. If you experience fevers, swelling, redness, rash or a break in your skin prior to your surgery contact your surgeon. Arriving for your procedure: Enter through the main entrance, and check in at the patient registration information desk. They will take your name and let us know you have arrived. A patient code and test clerk will then verify your information and give you an identification bracelet. You will then be directed to the Space Planner waiting area around the corner to check in at the window. You will be asked to provide the name and number of the responsible adult driving you home; this isrequired to receive sedation for a procedure. We recommend you are in the care of another adult for 24 hours after anesthesia. You should not drive or make any important personal decisions for 24 hours. You are at a high risk for a fall and nausea/vomiting after anesthesia. We recommend you rest at home with mild activity for the remainder of the day. Day of procedure at hospital: The nursing team will take your vital signs, check your information, and discuss what to expect. They may also prepare your procedural area (clip hair/clean skin), start an IV and give you medications as needed. Your anesthesia team will meet with you to discuss your anesthesia plan and any questions you may have prior to the procedure. Your doctor will see you before going into your procedure. They will verify the correct procedure and answer any questions you may have. Once you are ready, an operating room or procedural nurse will ask you many of the same questions for safety reasons. They will then take you to the procedural room. If you have additional questions before your procedure, please call . Updated 11/23/23 documented in this encounter Miscellaneous Notes * Brief Op Note - Asad Patel MD - 02/16/2024 1418 EDT Date: 02/16/2024 Location: [facility] [place] Name: Roland Vega, : 1950, Diagnosis Pre-Op Diagnosis Codes: * Chronic pain of left knee [M25.562, G89.29] Post-op Diagnosis * Chronic pain of left knee [M25.562, G89.29] Procedures * ARTHROSCOPY, KNEE, WITH LOOSE OR FOREIGN BODY REMOVAL * MENISCECTOMY, KNEE, MEDIAL AND LATERAL, ARTHROSCOPIC, WITH ARTICULAR CARTILAGE SHAVING * ARTHROSCOPY, KNEE, WITH DEBRIDEMENT OR SHAVING OF ARTICULAR CARTILAGE * ARTHROSCOPY, KNEE, WITH LIMITED SYNOVECTOMY Surgeons * Asad Patel MD - Primary * Mami Grover PA-C - Assisting Procedure Summary Anesthesia: General ASA: III Estimated Blood Loss: No Blood Loss Documented Total IV Fluids: As per anesthesia report mL LDAs: Peripheral IV 02/16/24 1207 Left;Posterior Hand (Active) Non-Surgical Airway (Active) Wound 02/16/24 Left Knee (Active) Staff: Vacuum Cooker Operator: Clemencia Cedeño RN Relief Scrub: Avinash Rosas RN Scrub Person: Leatha Lopez Indications: Roland Vega is an 73 y.o. male who is having surgery for Chronic pain of left knee[M25.562, G89.29] Findings: As per operative dictation Complications: None; patient tolerated the procedure well. Disposition: PACU - hemodynamically stable. Condition: stable Specimens Collected: No specimens collected during this procedure. Attending Attestation: I was present and scrubbed for the entire procedure Asad Patel MD documented in this encounter Plan of Treatment Upcoming Encounters Date Type Department Care Team (Late st Contact Info) Description 10/04/2024 9:[address] [facility] Pre-Surgical Testing [address] [place], [place] [phone] 10/14/2024 11:00 EST Hospital Encounter [facility] OR [address] [place] [address] Clemente Gerardo MD [address] [facility], [address] [place] [phone] 10/14/2024 11:00 EST - 10/14/2024 14:35 EST Surgery [facility] OR [address] [place] [phone] Clemente Gerardo MD [address] [place] [address] 5 [place] [phone] Implantation of inflatable penile prosthesis [59747 (CPT??)] 10/17/2024 9:00 EST Telemedicine [facility] [phone] Nurse Call, [facility] 10/31/2024 15:00 EST Post-op Visit [address] [phone] Clemente Gerardo MD [address] [place] [phone] 12/06/2024 10:15 EST Office Visit [address] [address] Spike Puentes MD [address] [place] [phone] Scheduled Procedures Name Priority Associated Diagnoses Date/Ti me INSERTION, PENILE PROSTHESIS, INFLATABLE, 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 10/14/2024 11:00 EST documented as of this encounter Procedures Procedure Name Priority Date/Time Associated Diagnosis Comments ECG REPORT - SCANNED 02/17/2024 15:15 EDT ARTHROSCOPY, KNEE, WITH LIMITED SYNOVECTOMY 02/16/2024 13:30 EDT Chronic pain of left knee Special Needs CM ARTHROSCOPY, KNEE, WITH DEBRIDEMENT OR SHAVING OF ARTICULAR CARTILAGE 02/16/2024 13:30 EDT Chronic pain of left knee Special Needs CM MENISCECTOMY, KNEE, MEDIAL AND LATERAL, ARTHROSCOPIC, WITH ARTICULAR CARTILAGE SHAVING 02/16/2024 13:30 EDT Chronic pain of left knee Special Needs CM ARTHROSCOPY, KNEE, WITH LOOSE OR FOREIGN BODY REMOVAL 02/16/2024 13:30 EDT Chronic pain of left knee Special Needs CM documented in this encounter Results * ECG REPORT - SCANNED (02/17/2024 15:15 EDT) 02/17/2024 15:1 5 EDT Scan 2 Health Education Coordinator PROCEDURE/MINOR BROOKE GICAL ORDERABLES documented in this encounter Visit Diagnoses Diagnosis Chronic pain of left knee- Primary Pain in joint, lower leg Chronic pain of left knee Pain in joint, lower leg Erectile dysfunction after radical prostatectomy documented in this encounter Admitting Diagnoses Diagnosis Chronic pain of left knee Pain in joint, lower leg documented in this encounter Administered Medications Inactive Administered Medications - up to 3 most recent administrations Medication Order MAR Action Action Date Dose Rate Site acetaminophen (TYLENOL) tablet 975 mg 975 mg, oral, Once (Without Time Specified), Starting on Thu02/16/24 at 1431, Until Thu02/16/24 at 1906, Routine, Recovery (only) Given 02/16/2024 15:58 EDT 975 mg BUPivacaine HCl 0.5 % (5 mg/mL) injection PRN, Starting on Thu02/16/24 at 1409, Until Thu02/16/24 at 1425, Routine, Intraprocedure Given 02/16/2024 14:09 EDT 10 mL Left Knee fentaNYL citrate (PF) injection 50 mcg 50 mcg, intravenous, EVERY 5 MIN PRN, Starting on Thu02/16/24 at 1431, Until Thu02/16/24 at 1906, Pain, Moderate-Severe Pain (Scale 4-10), Routine, Recovery (only) glycopyrrolate (ROBINUL) injection 0.2 mg 0.2 mg, intravenous, EVERY 3 MINUTES PRN, Starting on Thu02/16/24 at 1431, Until Thu02/16/24 at 1906, BRADYCARDIA, Routine, Recovery (only) lactated ringers (LR) infusion 25 mL/hr, intravenous, CONTINUOUS, Starting on Thu02/16/24 at 1145, Until Thu02/16/24 at 1906, Routine, Preprocedure Continued by Anesthesia 02/16/2024 13:40 EDT 25 mL/hr New Bag 02/16/2024 12:08 EDT 25 mL/hr 25 mL/hr lactated ringers (LR) infusion at 100 mL/hr, 1,000 mL, intravenous, PACU CONTINUOUS, Starting on Thu02/16/24 at 1500, Until Thu02/16/24 at 1906, Routine, Recovery (only) Rate Change 02/16/2024 14:59 EDT 100 mL/hr lactated Ringers irrigation solution PRN, Starting on Thu02/16/24 at 1409, Until Thu02/16/24 at 1425, Intraprocedure Given 02/16/2024 14:09 EDT 3,000 mL Left Knee oxyCODONE (ROXICODONE) immediate release tablet 5-10 mg 5-10 mg, oral, EVERY 30 MINUTES PRN, 2 doses, Starting on Thu02/16/24 at 1431, Until Thu02/16/24 at 1906, Pain, Routine, Recovery (only) Given 02/16/2024 15:58 EDT 5 mg documented in this encounter Historical Medications * This list may reflect changes made after this encounter. Medication Sig Dispensed Refills Start Date End Date propRANolol (INDERAL) 10 mg tablet Take 1 Tablet by mouth 2 times daily. 20mg in AM, 10mg in PM VITAMIN B COMPLEX ORAL Take by mouth daily. famotidine (PEPCID) 40 mg tablet Take 1 Tablet by mouth daily. added in this encounter Active and Recently Administered Medications Times are shown in EDT. Scheduled Medication Order 02/14/2024 02/15/2024 02/16/2024 acetaminophen (TYLENOL) tablet 975 mg 975 mg, oral, Once (Without Time Specified), Starting on Thu02/16/24 at 1431, Until Thu02/16/24 at 1906, Routine, Recovery (only) 1558 (Given - Provid er: Teresa Ortiz RN) ceFAZolin in dextrose 5 % (ANCEF) IVPB DUPLEX 2,000 mg (COMPLETED) 2,000 mg, intravenous, Administer over 30 Minutes, PRE-OP ONCE, 1 dose, On Thu02/16/24 at 1145, Type of Therapy: Prophylaxis, Suspected Indication (Select all that apply): Surgical prophylaxis, Routine, Preprocedure 1208 (Hold - Provide r: Becyk Bowers RN - Reason: Other - Comment: hang and hold for OR)1351 (Given - Provider: Rachel Dobbins MD) Continuous Medication Order 02/14/2024 02/15/2024 02/16/2024 lactated ringers (LR) infusion 25 mL/hr, intravenous, CONTINUOUS, Starting on Thu02/16/24 at 1145, Until Thu02/16/24 at 1906, Routine, Preprocedure 1208 (New Bag - Prov ider: Becky Bowers RN)1340 (Continued by Anesthesia - Provider: Rachel Dobbins MD)1432 (Completed - Provider: Rachel Dobbins MD) lactated ringers (LR) infusion at 100 mL/hr, 1,000 mL, intravenous, PACU CONTINUOUS, Starting on Thu02/16/24 at 1500, Until Thu02/16/24 at 1906, Routine, Recovery (only) 1459 (Rate Change - Provider: Teresa Ortiz RN) PRN Medication Order 02/14/2024 02/15/2024 02/16/2024 BUPivacaine HCl 0.5 % (5 mg/mL) injection (CANCELED) PRN, Starting on Thu02/16/24 at 1409, Until Thu02/16/24 at 1425, Routine, Intraprocedure 1409 (Given - Provid er: Asad Patel MD) fentaNYL citrate (PF) injection 50 mcg 50 mcg, intravenous, EVERY 5 MIN PRN, Starting on Thu02/16/24 at 1431, Until Thu02/16/24 at 1906, Pain, Moderate-Severe Pain (Scale 4-10), Routine, Recovery (only) glycopyrrolate (ROBINUL) injection 0.2 mg 0.2 mg, intravenous, EVERY 3 MINUTES PRN, Starting on Thu02/16/24 at 1431, Until Thu02/16/24 at 1906, BRADYCARDIA, Routine, Recovery (only) lactated Ringers irrigation solution (CANCELED) PRN, Starting on Thu02/16/24 at 1409, Until Thu02/16/24 at 1425, Intraprocedure 1409 (Given - Provid er: Asad Patel MD) oxyCODONE (ROXICODONE) immediate release tablet 5-10 mg 5-10 mg, oral, EVERY 30 MINUTES PRN, 2 doses, Starting on Thu02/16/24 at 1431, Until Thu02/16/24 at 1906, Pain, Routine, Recovery (only) 1558 (Given - Provid er: Teresa Ortiz RN) documented in this encounter Orders Medications Ordered That Vasiliy ht Not Have Been Administered Count Last Ordered Date First Ordered Date ceFAZolin in dextrose 5 % (A NCEF) IVPB DUPLEX 2,000 mg 1 02/16/2024 chlorhexidine gluconate 2 % cloth 1 Each 1 02/16/2024 fentaNYL citrate (PF) injection 50 mcg 1 glycopyrrolate (ROBINUL) injection 0.2 mg 1 02/16/2024 lidocaine (PF) 10 mg/mL (1 % ) injection 2 mg 1 02/16/2024 Discharge Count Last Ordered Date First Orde red Date DISCHARGE PATIENT 1 02/16/2024 documented in this encounter Care Teams Electrical Assembler Relationship Specialty Start Date End Date Marco Aleman MD [address] [facility] [address] [place] [address] PCP - General Emergency Medicine 12/07/23 documented as of this encounter
--- OUTSIDE RECORDS SUMMARY | 2024-07-19 22:10 | XMS_ITS | Encounter Summary ---
Author Organization [facility] Address [address] [place] [address] Care Team Providers Care Bar Pilot Name Role Phone Marco Aleman MD Primary Care Provider [phone] Encounter Details Date Type Department Care Team (Late st Contact Info) Description 07/08/2024 Prep for Procedure [facility] - [address] [phone] Clemente Gerardo MD [address] [facility], [address] [place] [phone] Erectile dysfunction after radical prostatectomy (Primary Dx) Social History Tobacco Use Types Packs/Day Years [...] :37 EST documented as of this encounter Functional Status Functional Status Response Date of Assess ment Are you deaf or do you have serious difficulty h earing? No 06/07/2024 Are you blind or do you have [...] a physical, menta l, or emotional condition, does this person have serious difficulty concentrating, remembering, or making decisions? No 07/08/2024 documented as of this encounter Plan of Treatment Upcoming Encounters Date Type Department Care Team (Late st Contact Info) Description 10/04/2024 9:50 EST Appointment [facility] Pre-Surgical Testing [address] [place] [phone] 10/14/2024 11:00 EST Hospital Encounter [facility] OR [address] [place] [phone] Clemente Gerardo MD [address] [place] [phone] 10/14/2024 11:00 EST - 10/14/2024 14:35 EST Surgery [facility] OR [address] [place] [phone] Clemente Gerardo MD [address] [place] [phone] Implantation of inflatable penile prosthesis [70555 (CPT??)] 10/17/2024 9:00 EST Telemedicine [address] [phone] Nurse Call, [facility] 10/31/2024 15:00 EST Post-op Visit [facility] [address] Clemente Gerardo MD 111 [facility], [facility], [address] [place] [phone] 12/06/2024 10:15 EST Office Visit [facility] [address] [place], [place] [address] Spike Puentes MD [address] [place] [phone] Scheduled Procedures Name Priority Associated Diagnoses Date/Ti me INSERTION, PENILE PROSTHESIS, INFLATABLE, 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 10/14/2024 11:00 EST documented as of this encounter Visit Diagnoses Diagnosis Erectile dysfunction after radical prostatectomy- Primary Erectile dysfunction after radical prostatectomy documented in this encounter Orders Case Request Count Last Ordered Date First Orde red Date CASE REQUEST OPERATING ROOM 1 07/08/2024 documented in this encounter Care Teams Bar Pilot Relationship Specialty Start Date End Date Marco Aleman MD [address] [place] [address] PCP - General Emergency Medicine 12/07/23 documented as of this encounter
--- OUTSIDE RECORDS SUMMARY | 2024-07-19 22:10 | XMS_ITS | Encounter Summary ---
Author Organization [facility] Address [address] [place] [address] Care Team Providers Care Product Expert Name Role Phone Marco Aleman MD Primary Care Provider [phone] Reason for Visit * Reason Comments Puncture Wound Left foot. Encounter Details Date Type Department Care Team (Late st Contact Info) Description 06/03/2024 12:15 EDT Walk-In [facility] [address] [place] [address] [id number] Alejandra Bullock PA-C [address] [facility] [address] [place], [place] [phone] Puncture wound (Primary Dx) Social History Tobacco Use Types [...] Sign Reading Time Taken Comments Blood Pressure 132/80 06/03/2024 1317 EDT Pulse 70 06/03/2024 1317 EDT Temperature 36.5 ??C (97.7 ??F) 06/03/2024 1317 EDT Respiratory Rate 16 06/03/2024 1317 EDT Oxygen Saturation 97% 06/03/2024 131 EDT Inhaled Oxygen Concentration - - Weight - - Height - - Body Mass Index - - documented in this encounter Functional Status Functional [...] No 02/10/2023 documented as of this encounter Patient Instructions * Attachments The following attachments cannot be sent through Care Everywhere. * Puncture Wounds (Czech) documented in this encounter Ordered Prescriptions Prescription Sig Dispensed Refills Start Date End Da te cephalexin (KEFLEX) 500 mg capsuleIndications:Punctu re wound Take 1 Capsule by mouth 3 times daily. 15 Capsule 06/03/2024 documented in this encounter Progress Notes * Bibiana Feng, GLORIA - 06/03/2024 1215 EDT CC/HPI: yesterday while wearing shoes stepped several times a long staple. Did not bleed. Soaked last in salt water and then again with salt water. 06/20/2021 Tdap vaccine Covid Screening: In the last 72 hours, has the patient had: New or unusual cough, shortness of breath, new nasal congestion, sore throat, fever, chills, body aches, or new loss of taste or smell without a reasonable alternative diagnosis? no In the past 10 days, has the patient had a positive Covid test OR a confirmed close Covid exposure?no * Alejandra Bullock PA-C - 06/03/2024 1215 EDT [facility] Chief Complaint(s): Puncture Wound (Left foot.) HPI: Patient reports he had a series of punctures to the bottom of his left foot, he reports he stepped on large formed anabela, patient reports history of neuropathy but is not a diabetic, he has been soaking his foot x 2 in warm salt water, he is otherwise well, he wonders about getting a tetanus shotalthough his last tetanus was 2020 ROS: Review of Systems Constitutional: Negative for fever. Skin: Puncture wound to the bottom of the left foot Objective: Examination: Vitals: BP 132/80 (BP Cuff Location: Left arm, BP Patient Position: Sitting, BP Cuff Sizes: Adult, regular) Pulse 70 Temp 36.5 ??C (97.7 ??F) (Oral) Resp 16 SpO2 97% Physical Exam Vitals reviewed. Skin: Comments: The bottom of the left foot is without distinct puncture wounds (patient made a comment of good luck finding them), there is no drainage, there is no spreading erythema, no ecchymosis, there does not appear to be any tenderness, skin is intact (although patient had a small bandage taped over his heel), there did not appear to be any wound that it was covering Neurological: Mental Status: He is alert. Procedures Assessment & Plan: 1. Puncture wound - cephalexin (KEFLEX) 500 mg capsule; Take 1 Capsule by mouth 3 times daily. Dispense: 15 Capsule; Refill: 0 Patient appears little bit anxious, discussed with patient that tetanus is not indicated at this time, he had one approximately 3 years ago, will cover for short course of Keflex due to the patient'shistory of neuropathy, discontinue soaking anymore in salt water, patient was given further information home care recommendations in AVS An appropriate medical screening examination was performed. The patient was assessed prior to discharge and deemed stable for discharge. documented in this encounter Plan of Treatment Upcoming Encounters Date Type Department Care Team (Late st Contact Info) Description 10/04/2024 9:50 EST Appointment [facility] Pre-Surgical Testing [address] [place] [address] [phone] 10/14/2024 11:00 EST Hospital Encounter [facility] OR [address] [place] [address] [phone] Clemente Gerardo MD [address] [place] [address] [phone] 10/14/2024 11:00 EST - 10/14/2024 14:35 EST Surgery [facility] OR [address] [place] [address] [id number] Clemente Gerardo MD [address] [place] [address] [phone] Implantation of inflatable penile prosthesis [02423 (CPT??)] 10/17/2024 9:00 EST Telemedicine [facility] Urology [address] [phone] Nurse Call, [facility] Urology 10/31/2024 15:00 EST Post-op Visit [facility] Urology [address] [phone] Clemente Gerardo MD [address] [place] [address] [phone] 12/06/2024 10:15 EST Office Visit [facility] Ophthalmology [address] [phone] Spike Puentes MD [address] [place] [address] [phone] Scheduled Procedures Name Priority Associated Diagnoses Date/Ti me INSERTION, PENILE PROSTHESIS, INFLATABLE, 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 10/14/2024 11:00 EST documented as of this encounter Visit Diagnoses Diagnosis Puncture wound- Primary Open wound(s) (multiple) of unspecified site(s), without mention of complication Erectile dysfunction after radical prostatectomy documented in this encounter Discontinued Medications Medication Sig Discontinue Reason Start Date End Da te doxycycline (VIBRA-TABS) 100 mg tablet Take 1 Tablet by mouth 2 times daily. Abstraction 04/18/2024 06/03/2024 erythromycin (ROMYCIN) 5 mg/gram (0.5 %) ophthalmic ointment Apply 11/05 strip Abstraction 10/10/2021 06/03/2024 MEDICAL MARIJUANA Abstraction 06/03/2024 methocarbamoL (ROBAXIN) 500 mg tablet Take 1 Tablet by mouth 4 times daily as needed for Muscle Spasms or Pain. Abstraction 02/16/2024 06/03/2024 ondansetron (ZOFRAN-ODT) 4 mg disintegrating tablet Take 1 Tablet by mouth every 8 hours as needed for Nausea. Abstraction 02/16/2024 06/03/2024 oxyCODONE (ROXICODONE) 5 mg immediate release tablet Take 1 Tablet by mouth every 6 hours as needed for Pain. Daily Max: 20 mg Abstraction 02/16/2024 06/03/2024 pantoprazole (PROTONIX) 40 mg tablet Take 1 tablet by mouth once daily Abstraction 09/11/2023 06/03/2024 ubidecarenone/vitamin E mixed (COQ10 SG 100 ORAL) Take by mouth daily. Abstraction 06/03/2024 L.acid/L.casei/B.bif/B.mila /FOS (PROBIOTIC BLEND ORAL) Take by mouth daily. Abstraction 06/03/2024 documented as of this encounter Historical Medications * This list may reflect changes made after this encounter. Medication Sig Dispensed Refills Start Date End Date UBIQUINONE ORAL Take 100 mg by mouth daily. famotidine (PEPCID) 20 mg tablet Take 1 Tablet by mouth 2 times daily. 05/31/2024 added in this encounter Care Teams Product Expert Relationship Specialty Start Date End Date Marco Aleman MD [address] [facility] [address] [place] [id number] PCP - General Emergency Medicine 12/07/23 documented as of this encounter
--- OUTSIDE RECORDS SUMMARY | 2024-07-19 22:10 | XMS_ITS | Encounter Summary ---
Author Organization [facility] Address [address] [place] [address] Care Team Providers Care House Mover Helper Name Role Phone Marco Aleman MD Primary Care Provider [phone] Reason for Visit * Reason Comments Foot Injury Pt stepped on metal rayshawn staple while demo'ing an old house 5 days ago, pain and redness to left foot, pt concerned there is retained piece of metal. Encounter Details Date Type Department Care Team (Late st Contact Info) Description 06/07/2024 13:52 EDT - 06/07/2024 15:39 EDT Emergency [facility] Emergency Department [address] [place] [address] Puncture wound of left foot, initial encounter (Primary Dx) Discharge Disposition: Home or Self Care Social History Tobacco Use Types Packs/Day Years [...] Sign Reading Time Taken Comments Blood Pressure 129/85 06/07/2024 1537 EDT Pulse 66 06/07/2024 1537 EDT Temperature 36.5 ??C (97.7 ??F) 06/07/2024 1241 EDT Respiratory Rate 16 06/07/2024 1537 EDT Oxygen Saturation 96% 06/07/2024 1537 EDT Inhaled Oxygen Concentration - - Weight [...] this encounter Discharge Instructions * Discharge Instructions* Jamel Mann PA-C - 06/07/2024 15:32 EDT You were seen today for a revisit for your puncture wound of the left foot. Your foot does not appear to be acutely infected. Your x-ray shows no evidence of any retention of metallic foreign body. We have updated your tetanus today. You are sending you home with a prescription for Cipro which will cover any Pseudomonas infection which is higher risk when stepping on a myriam nail. Recommend following up closely with your primary care provider sometime next week. If you develop any worsening symptoms such as significant swelling to the left foot, streaking up the leg, fevers or chills or recommend returning to the ED for further evaluation. * Attachments The following attachments cannot be sent through Care Everywhere. * Puncture Wounds (Portuguese) documented in this encounter Medications at Time [...] by mouth once daily 90 Tablet 09/11/2023 cephalexin (KEFLEX) 500 mg capsuleIndications:Pun cture wound Take 1 Capsule by mouth 3 times daily. 15 Capsule 06/03/2024 cholecalciferol, Vitamin D3, 125 mcg (5000 unit) capsule Take by mouth daily. clopidogreL (PLAVIX) 75 mg tabletIndications:Dysl ipidemia Take 1 Tablet by mouth daily. 90 Tablet 3 10/16/2022 DIABETIC SUPPLIES, IntelliFloCELLAN. MISC Syringe 3cc 02/17/2017 diazePAM (VALIUM) 5 mg tablet Take 1-2 tabs 1 hr prior to flights and before procedure 10 Tablet 03/12/2023 famotidine (PEPCID) 20 mg tablet Take 1 Tablet by mouth 2 times daily. 05/31/2024 famotidine (PEPCID) 40 mg tablet Take 1 Tablet by mouth daily. lamoTRIgine (LAMICTAL) 25 mg tablet One po bid 180 Tablet 5 02/22/2023 LANCETS & BLOOD GLUCOSE STRIPS [facility] test strips and lancets for glucose monitor , Sig: test once a day test once a day 09/20/2018 Magnesium 250 mg tablet Take 500 mg by mouth daily. niacin (NICOTINIC ACID) 100 mg tablet Take 1 Tablet by mouth daily. nitroGLYCERIN (NITROSTAT) 0.[address] 1 Tablet under the tongue as needed. 07/07/2014 Ynidw-1-GJT-EPA-Fish Oil 1,000 (120-180) mg capsule Take 1,000 [...] Max: 300 mg 20 mL 1 05/21/2023 UBIQUINONE ORAL Take 100 mg by mouth daily. VITAMIN B COMPLEX ORAL Take by mouth daily. vitamin E mixed/tocotrienol (VITAMIN E COMPLEX ORAL) Take 400 mg by mouth daily. ciprofloxacin HCl (CIPRO) 500 mg tablet Take 1 Tablet by mouth 2 times daily for 7 days. 14 Tablet 06/07/2024 06/14/2024 documented as of this encounter Ordered Prescriptions Prescription Sig Dispensed Refills Start Date End Da te ciprofloxacin HCl (CIPRO) 500 mg tablet Take 1 Tablet by mouth 2 times daily for 7 days. 14 Tablet 06/07/2024 06/14/2024 documented in this encounter Discharge Disposition Disposition Code Departure Means Destination Comment s Home or Self Longterm documented in this encounter ED Notes * Jamel Mann PA-C - 06/07/2024 1220 EDT Emergency Department Visit Medical Decision Making This is a pleasant 74-year-old male presenting to the ED with reports of stepping on a staple and afloorboard while cleaning out a residence that he owns. He states there was garbage all over the floor and accidentally stepped on a staple that went through his shoe and into the plantar aspect of his right heel. Patient was placed on a prescription of Keflex. He states he continues to experience discomfort to the left foot and is suspicious there may be a foreign body retained within the soft tissues of his foot. This prompted a left foot x- ray which showed no evidence of any radiopaque foreign bodies. Foot exam reveals no evidence of erythema or puncture wounds. Patient was placed on a regimen of Cipro to cover for any Pseudomonas. Encourage close follow-up with his PCP within the week to discuss today's visit. Imaging (independent interpretation) of the X-ray: IMPRESSION 1. No metallic foreign body detected. 2. Polyarticular osteoarthrosis. Medical Decision Making Problems Addressed: Puncture wound of left foot, initial encounter: complicated acute illness or injury Amount and/or Complexity of Data Reviewed Radiology: ordered. Risk Prescription drug management. Final diagnoses: Puncture wound of left foot, initial encounter Disposition: Discharged Chief complaint: Left foot pain GUILLE Vega is a 74 y.o. male with history of PTSD, anxiety, obesity, ASCVD, hypercholesterolemia CAD who presents to the ED for complaints of left foot pain. States that on he was emptying a large amount of garbage out of the house that he was cleaning out. He inadvertently stepped delta board which had a staple protruding from it. He states he felt as though there was a rock in his shoe. He went to check out his foot when he found a staple that had gone through his shoe and into the heel of his foot. He endorses history of neuropathy and did not notice the staple. He states thatthe staple came from a very dirty floor. He went to [facility] where he was prescribed Keflex. Hehas been taking the Keflex for a few days but states that his foot is continuing to be tender. He did not get an updated tetanus at the [facility]. And he was prescribed only Keflex. History was provided by: Patient Records reviewed include: Dr. Puentes's note dated 06/06/2024 Patient's pertinent PMH, FH, SH were reviewed and edited as necessary. Nursing notes reviewed. A medical screening exam was performed. Physical Exam BP 129/85 Pulse 66 Temp 36.5 ??C (97.7 ??F) Resp 16 SpO2 96% Physical Exam Vitals and nursing note reviewed. Constitutional: General: He is not in acute distress. Appearance: Normal appearance. He is not ill-appearing or toxic-appearing. HENT: Head: Normocephalic and atraumatic. Right Ear: External ear normal. Left Ear: External ear normal. Nose: Nose normal. Eyes: Extraocular Movements: Extraocular movements intact. Conjunctiva/sclera: Conjunctivae normal. Cardiovascular: Rate and Rhythm: Normal rate. Pulmonary: Effort: Pulmonary effort is normal. No respiratory distress. Musculoskeletal: General: Normal range of motion. Feet: Comments: No open wounds to the plantar aspect of the left foot. No evidence of edema or pronouncederythema. No fluctuance noted. There is mild tenderness when palpating the heel of the left foot. Skin: General: Skin is dry. Neurological: General: No focal deficit present. Mental Status: He is alert and oriented to person, place, and time. Psychiatric: Mood and Affect: Mood normal. Procedures Procedures documented in this encounter Plan of Treatment Upcoming Encounters Date Type Department Care Team (Late st Contact Info) Description 10/04/2024 9:50 EST Appointment [facility] Pre-Surgical Testing [address] [place] [address] [phone] 10/14/2024 11:00 EST Hospital Encounter [facility] OR [address] [place] [address] [phone] Clemente Gerardo MD [address] [place] [address] [phone] 10/14/2024 11:00 EST - 10/14/2024 14:35 EST Surgery [facility] OR [address] [place] [address] [phone] Clemente Gerardo MD [address] [place] [address] [phone] Implantation of inflatable penile prosthesis [77215 (CPT??)] 10/17/2024 9:00 EST Telemedicine [facility] Urology [address] [phone] Nurse Call, [facility] Urology 10/31/2024 15:00 EST Post-op Visit [facility] Urology [address] [phone] Clemente Gerardo MD [address] [place] [address] [phone] 12/06/2024 10:15 EST Office Visit [facility] Ophthalmology [facility] [address] [place] [address] Spike Puentes MD [address] [place] [phone] (work) Scheduled Procedures Name Priority Associated Diagnoses Date/Ti me INSERTION, PENILE PROSTHESIS, INFLATABLE, 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 10/14/2024 11:00 EST documented as of this encounter Procedures Procedure Name Priority Date/Time Associated Diagnosis Comments XR FOOT LEFT 3 OR MORE VIEWS STAT 06/07/2024 15:26 EDT documented in this encounter Results * XR FOOT LEFT 3 OR MORE VIEWS (06/07/2024 15:26 EDT) Anatomical Region Laterality Modality Lower Extremities Left Computed Radio graphy 06/07/2024 15:3 7 EDT Impressions 06/07/2024 15:37 EDT 1. No metallic foreign body detected. 2. Polyarticular osteoarthrosis. [id number] Narrative 06/07/2024 15:37 EDT XR FOOT LEFT 3 OR MORE VIEWS ?? Signs and Symptoms/Comments: ??stepped on staple whilst wearing shoes / concern for fb Comparison: 04/20/2018. FINDINGS: Right foot: 3 views. Bones: No acute fracture or malalignment. Degenerative changes: Polyarticular interphalangeal joint space narrowing is seen. There is also great toe MTP joint space narrowing. There is a plantar spur. There is a small Achilles enthesophyte.. Soft tissues: No metallic foreign body is detected.. Resulting Agency Comment [id number] Procedure Note Juaquin Mistry MD - 06/07/2024 XR FOOT LEFT 3 OR MORE VIEWS Signs and Symptoms/Comments: stepped on staple whilst wearing shoes /concern for fb Comparison: 04/20/2018. FINDINGS: Right foot: 3 views. Bones: No acute fracture or malalignment. Degenerative changes: Polyarticular interphalangeal joint space narrowingis seen. There is also great toe MTP joint space narrowing. There is aplantar spur. There is a small Achilles enthesophyte.. Soft tissues: No metallic foreign body is detected.. IMPRESSION 1. No metallic foreign body detected. 2. Polyarticular osteoarthrosis. [id number] Jamel Mann PA-C IMG DIAGNOSTIC IMAGI NG ORDERABLES documented in this encounter Visit Diagnoses Diagnosis Puncture wound of left foot, initial encounter- Primary Erectile dysfunction after radical prostatectomy documented in this encounter Care Teams House Mover Helper Relationship Specialty Start Date End Date Marco Aleman MD [address] [facility] [address] [place] [id number] PCP - General Emergency Medicine 12/07/23 documented as of this encounter
--- OUTSIDE RECORDS SUMMARY | 2024-07-19 22:10 | XMS_ITS | Encounter Summary ---
Author Organization [facility] Address [address] [place] [address] Care Team Providers Care [facility] Display Builder Name Role Phone Marco Aleman MD Primary Care Provider [phone] Reason for Visit * Reason Comments Post-OP Follow Up Encounter Details Date Type Department Care Team (Late st Contact Info) Description 02/29/2024 16:00 EDT Post-op Visit [facility] [address] [place] [address] Asad Patel MD [address] [facility] [address] [place] [address] Chronic pain of left knee (Primary Dx) Social History Tobacco Use Types [...] No 02/10/2023 documented as of this encounter Progress Notes * Asad Patel MD - 02/29/2024 1600 EDT The patient presents today approximately 2 weeks status post left knee arthroscopy with removal of loose body. Has had some persistent swelling. Has started physical therapy. Difficulty with sleep atnight. No infectious symptoms reported. A 10-point review of systems has been reviewed and all are negative unless noted above. Past Medical History: Diagnosis Date Abnormal stress test 04/20/2017 s/p JANET Activity, other involving cardiorespiratory exercise 01/30/23- able to climb 2 FOS w/o SOB Amblyopia per pt-left eye Anemia 02/10/2023 Anomaly, cardiac cardiac stents Anxiety Arrhythmia 01/30/23- currently has zio patch for palpitations, CP, and SOB Arthritis osteo CAD (coronary artery disease) Cancer ([facility]) prostates and skin cancer Cerebral artery occlusion with cerebral infarction ([facility]) 2018 01/30/23-Acute ischemic left MCA stroke. no residual deficits Chest pain 01/30/23- currently has zio patch for palpitations, CP, and SOB Claustrophobia 01/30/23- in closed room Clotting disorder ([facility]) plavix/aspirin Colon polyp Community acquired pneumonia Does not exercise Exercise involving housework Exercise involving jogging Exercise involving walking GERD (gastroesophageal reflux disease) 01/30/23- controlled w/ Protonix, sleeps on side for comfort Heart murmur History of general anesthesia Hyperlipidemia Hypertension 01/30/23- well controlled per pt Immunization not carried out unknown CO (myocardial infarction) ([facility]) 2008 x2. 2008 & 2011. JANET x4 Peripheral neuropathy CIPD Poor dentition 01/30/23- reports having 2 broken teeth Post PTCA PTSD (post-traumatic stress disorder) Rash 01/30/23- eczema on face Seizures ([facility]) 2019 01/30/23- well controlled on Lamictal, thought to be due to high dose Wellbutrin. None since 2018 Shortness of breath 01/30/23- currently has zio patch for palpitations, CP, and SOB Skin cancer Social History Tobacco Use Smoking status: Former Current packs/day: 1.00 Average packs/day: 1 pack/day for 15.0 years (15.0 ttl pk-yrs) Types: Cigarettes Smokeless tobacco: Never Substance Use Topics Alcohol use: Yes Alcohol/week: 7.0 standard drinks of alcohol Types: 7 Glasses of wine per week Past Surgical History: Procedure Laterality Date ABDOMEN SURGERY prostatectomy CARDIAC CATHERIZATION 12/2004 normal - Dr. Evans [facility] [place]OS[place] 12/2004 WNL - Dr. Turcios f/u 10 yrs CORONARY ANGIOPLASTY WITH STENT PLACEMENT 2010 NSTEMI s/p JANET FOOT SURGERY Right tendon surgery KNEE ARTHROSCOPY Left RADICAL PROSTATECTOMY 12/2004 Laparoscopic radical prostatectomy, umbilical hernia repair - Dr. Encinas [facility] SINUS SURGERY nasal / sinus surgery Allergies Allergen Reactions Other - See Comments Anaphylaxis swordfish Sulfa (Sulfonamide Antibiotics) Anaphylaxis and Shortness Of Breath Lisinopril Swelling of tongue Cyclobenzaprine psychosis Ibuprofen Swelling Other reaction(s): edema Pt does take ibuprofen Naproxen Sodium Swelling Other reaction(s): edema Tramadol [...] Touch Ultra, test blood sugar once daily buPROPion (WELLBUTRIN SR) 150 mg SR tablet [...] strip (Patient not taking: Reported on 12/08/2023) famotidine (PEPCID) 40 mg tablet Take 1 Tablet by mouth daily. L.acid/L.casei/B.bif/B.mila/FOS (PROBIOTIC BLEND ORAL) Take by mouth daily. (Patient not taking: Reported on 12/08/2023) lamoTRIgine (LAMICTAL) 25 mg tablet One po bid (Patient taking differently: Take 1 Tablet by mouth 2 times daily. Three pills po bid, for anxiety) LANCETS & BLOOD GLUCOSE STRIPS MISC test strips and lancets for glucose monitor , Sig: test once a day test once a day (Patient not taking: Reported on 02/12/2024) Magnesium 250 mg tablet Take 500 mg by mouth daily. MEDICAL MARIJUANA (Patient not taking: Reported on 02/16/2024) methocarbamoL (ROBAXIN) 500 mg tablet Take 1 Tablet by mouth 4 times daily as needed for Muscle Spasms or Pain. niacin (NICOTINIC ACID) 100 mg tablet Take 1 Tablet by mouth daily. nitroGLYCERIN (NITROSTAT) 0.[address] 1 Tablet under the tongue as needed. Klrxe-8-QOT-EPA-Fish Oil 1,000 (120-180) mg capsule Take 1,000 mg by mouth 2 times daily. ondansetron (ZOFRAN-ODT) 4 mg disintegrating tablet Take 1 Tablet by mouth every 8 hours as needed for Nausea. oxyCODONE (ROXICODONE) 5 mg immediate release tablet Take 1 Tablet by mouth every 6 hours as neededfor Pain. Daily Max: 20 mg (Patient not taking: Reported on 02/29/2024) pantoprazole (PROTONIX) 40 mg tablet Take 1 tablet by mouth once daily POTASSIUM ACETATE MISC 90 mg by misc (non-drug; combo route) route daily. (Patient not taking: Reported on 02/12/2024) propRANolol (INDERAL) 10 mg tablet Take 1 Tablet by mouth 2 times daily. 20mg in AM, 10mg in PM testosterone cypionate (DEPO-TESTOSTERONE) 200 mg/mL injection Inject 1.5 mL into the muscle once aweek. 2 vials of 10mL please Daily Max: 300 mg ubidecarenone/vitamin E mixed (COQ10 SG 100 ORAL) Take by mouth daily. VITAMIN B COMPLEX ORAL [...] palpation. Overlying skin intact. No gross deformity. Surgery incisions healing well. Some degree of ecchymosis over the region of the tourniquet, as well as some Generalized swelling about the knee. Distally neurovasc intact throughout ASSESSMENT: 2 weeks status post left knee arthroscopy PLAN: I had a detailed discussion with the patient today. We discussed surgical findings. I believethat the swelling and ecchymosis will improve over the next week. I recommend continuation of outpatient physical therapy and dedicated work at home. He voiced understanding and agreed with the plan.All questions answered in detail. Will follow-up in approximately 3 to 4 weeks. I spent a total of 15 minutes on the date of this encounter meeting with the patient and reviewing documentation/coordinating care as described in the above note. Asad Patel MD 02/29/2024 documented in this encounter Plan of Treatment Upcoming Encounters Date Type Department Care Team (Late st Contact Info) Description 10/04/2024 9:50 EST Appointment [facility] Pre-Surgical Testing [address], [place] [id number] 10/14/2024 11:00 EST Hospital Encounter [facility] OR [address] [place], [place] [phone] Clemente Gerardo MD [address] [facility], [address] [place] [phone] 10/14/2024 11:00 EST - 10/14/2024 14:35 EST Surgery [facility] OR [address] [place] [address] [id number] Clemente Gerardo MD [address] [place] [phone] Implantation of inflatable penile prosthesis [47873 (CPT??)] 10/17/2024 9:00 EST Telemedicine [facility] [address] [phone] Nurse Call, [facility] Urology 10/31/2024 15:00 EST Post-op Visit [address] [phone] Clemente Gerardo MD [address] [place] [phone] 12/06/2024 10:15 EST Office Visit [address] [phone] Spike Puentes MD [address] [place] [phone] Scheduled Procedures Name Priority Associated Diagnoses Date/Ti me INSERTION, PENILE PROSTHESIS, INFLATABLE, 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 10/14/2024 11:00 EST documented as of this encounter Visit Diagnoses Diagnosis Chronic pain of left knee- Primary Pain in joint, lower leg Erectile dysfunction after radical prostatectomy documented in this encounter Care Teams Science [facility] Display Builder Relationship Specialty Start Date End Date Marco Aleman MD [address] [facility] [address] [place] [address] PCP - General Emergency Medicine 12/07/23 documented as of this encounter
--- OUTSIDE RECORDS SUMMARY | 2024-07-19 22:10 | XMS_ITS | Encounter Summary ---
Author Organization [facility] Address [address] [place] [address] Care Team Providers Care Precision Assembler Name Role Phone Marco Aleman MD Primary Care Provider [phone] Encounter Details Date Type Department Care Team (Late st Contact Info) Description 07/19/2024 Orders Only [facility] [place] [address] [place] [id number] Gaurav Gates Social History Tobacco Use Types Packs/Day Years [...] Info) Description 10/04/2024 9:50 EST Appointment [facility] Pre-Surgical Testing [address] [place] [address] [phone] 10/14/2024 11:00 EST Hospital Encounter [facility] [place] [address] [place] [address] [phone] Clemente Gerardo MD [address] [place] [phone] 10/14/2024 11:00 EST - 10/14/2024 14:35 EST Surgery [facility] [place] [address] [place] [address] [phone] Clemente Gerardo MD [address] [place] [address] [phone] Implantation of inflatable penile prosthesis [23548 (CPT??)] 10/17/2024 9:00 EST [facility]icine [facility] [address] [phone] Nurse Call, [facility] Urology 10/31/2024 15:00 EST Post-op Visit [address] [phone] Clemente Gerardo MD [address] [place] [address] [phone] 12/06/2024 10:15 EST Office Visit [facility] Ophthalmology [facility] [address] [place] [address] Spike Puentes MD [address] [place] [phone] Scheduled Procedures Name Priority Associated Diagnoses Date/Ti me INSERTION, PENILE PROSTHESIS, INFLATABLE, 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 10/14/2024 11:00 EST documented as of this encounter Visit Diagnoses Not on filedocumented in this encounter Care Teams Precision Assembler Relationship Specialty Start Date End Date Marco Aleman MD 26 [facility] [address] [place], [place] [phone] PCP - General Emergency Medicine 12/07/23 documented as of this encounter
--- OUTSIDE RECORDS SUMMARY | 2024-07-19 22:10 | XMS_ITS | Encounter Summary ---
Author Organization [facility] Address [address] [place] [address] Care Team Providers Care Java Developer Analyst Name Role Phone Marco Aleman MD Primary Care Provider [phone] Reason for Visit * Reason Comments Tick Bite Encounter Details Date Type Department Care Team (Late st Contact Info) Description 04/18/2024 13:45 EDT [facility] [address] [place] [address] [phone] Norbert Gambino NP [address] [facility] [address] [place], [place] [phone] Tick bite of left forearm, initial encounter (Primary Dx); Polyarthralgia; Body aches Social History Tobacco Use Types Packs/Day Years [...] Sign Reading Time Taken Comments Blood Pressure 150/76 04/18/2024 1346 EDT Pulse 49 04/18/2024 1346 EDT Temperature 36.7 ??C (98 ??F) 04/18/2024 1346 EDT Respiratory Rate 18 04/18/2024 1346 EDT Oxygen Saturation 95% 04/18/2024 1346 EDT Inhaled Oxygen Concentration - - Weight [...] as of this encounter Patient Instructions * Patient Instructions* Norbert Gambino NP - 04/18/2024 13:45 EDT I am suspicious that you have tickborne infection, most likely Lyme. Take doxycycline the entire course do not stop early. Stay covered up when you are out in the sun. For worsening symptoms or concerning changes such as palpitations, irregular heart rate or trouble breathing go to the emergency. * Attachments The following attachments cannot be sent through Care Everywhere. * Tick Bite ([place]) documented in this encounter Ordered Prescriptions Prescription Sig Dispensed Refills Start Date End Da te doxycycline (VIBRA-TABS) 100 mg tablet Take 1 Tablet by mouth 2 times daily. 28 Tablet 04/18/2024 06/03/2024 documented in this encounter Progress Notes * Martha Jim RN - 04/18/2024 1345 EDT CC/HPI: c/o tick bite to L wrist, area reddened. Tick removed on night, unsure how long itwas there - was under watch, embedded. Feels unwell. No fevers, thought he maybe had an itchy rash to chest, but denies at this time. Covid Screening: In the last 72 hours, has the patient had: New or unusual cough, shortness of breath, new nasal congestion, sore throat, fever, chills, body aches, or new loss of taste or smell without a reasonable alternative diagnosis? no In the past 10 days, has the patient had a positive Covid test OR a confirmed close Covid exposure?no * Norbert Gambino NP - 04/18/2024 1345 EDT [facility] Chief Complaint(s): Chief Complaint Patient presents with Tick Bite HPI: Roland Vega is a 74 y.o. yr old male who presents for evaluation of a few days of polyarthralgia, body aches, feeling really unwell and weak. He also had pounding headache a couple of times. His joint pain is in both knees, elbows and hands. He pulled an embedded tick out of his left forearm, underneath his watch, last week. No fevers or rashes. Denies any other sick symptoms such as sore throat or cough. ROS: Social History Tobacco Use Smoking Status Former Current packs/day: 1.00 Average packs/day: 1 pack/day for 15.0 years (15.0 ttl pk-yrs) Types: Cigarettes Smokeless Tobacco Never Review of Systems Constitutional: Positive for malaise/fatigue. HENT: Negative. Respiratory: Negative. Cardiovascular: Negative. Musculoskeletal: Positive for joint pain and myalgias. Skin: Negative. Neurological: Positive for tingling. All other systems reviewed and are negative. See HPI for details Objective: Vitals and nursing notes reviewed Examination: BP (!) 150/76 Pulse (!) 49 Temp 36.7 ??C (98 ??F) (Oral) Resp 18 SpO2 95% Physical Exam Vitals and nursing note reviewed. Constitutional: Appearance: Normal appearance. HENT: Head: Normocephalic and atraumatic. Right Ear: External ear normal. Left Ear: External ear normal. Nose: Nose normal. Mouth/Throat: Mouth: Mucous membranes are moist. Pharynx: Oropharynx is clear. No oropharyngeal exudate or posterior oropharyngeal erythema. Eyes: General: No scleral icterus. Right eye: No discharge. Left eye: No discharge. Conjunctiva/sclera: Conjunctivae normal. Cardiovascular: Rate and Rhythm: Regular rhythm. Bradycardia present. Comments: Regular rate and rhythm bradycardic rate 49 Pulmonary: Effort: Pulmonary effort is normal. Breath sounds: Normal breath sounds. Musculoskeletal: Cervical back: Normal range of motion and neck supple. No rigidity. Skin: General: Skin is warm and dry. Findings: Lesion present. Comments: Small circular lesions distal left forearm scabbed over at the center with no spreading erythema or rashes. Neurological: General: No focal deficit present. Mental Status: He is alert and oriented to person, place, and time. Mental status is at baseline. Psychiatric: Mood and Affect: Mood normal. Assessment & Plan: MDM: Well-appearing 74-year-old male with systemic symptoms including polyarthralgia and hands, elbows and knees the past few days. He also has had pounding headaches, fatigue, muscle aches. On exam there is no nuchal rigidity no fever. Heart rate is 49 he does take propranolol. Rhythm is irregular. He says his heart rate is often this low he denies any lightheadedness palpitations chest pain or trouble breathing. No suspicious rashes are noted. Given that he pulled an embedded tick out of his left forearm last week and he is now having the symptoms I am concerned he has tickborne infection. We will treat him for presumed Lyme. No fevers andpatient is well-appearing, seems less likely to be anaplasmosis or babesiosis at this point given his presentation. I have asked him to return should he get worse or develop high fever at which pointI would recommend drawing labs to assess for presence of anaplasmosis or babesiosis. Patient is generally well appearing, afebrile, non toxic, well hydrated, stable on exam. I have reviewed current problem list, current medications and allergies. An appropriate medical screening examination was performed. The patient was assessed prior to discharge and deemed stable for discharge home. This note may be in part documented using [employer] dictation software. Please forgive any errors, omissions or typos that may result from use of dictation. I printed material and reviewed home management and follow up in detail with patient, see patient instructions below. Patient is advised in use of [employer] to access any lab results or other pertinentvisit information. All questions are answered. Patient is advised to follow up for urgent reassessment for any new/worsening signs and symptoms, otherwise, [facility] that persist past current course of treatment or expected resolution as discussed. Patient verbalizes understanding and agreement with this plan of care. documented in this encounter Plan of Treatment Upcoming Encounters Date Type Department Care Team (Late st Contact Info) Description 10/04/2024 9:[address] [facility] Pre-Surgical Testing [address] [place] [address] [phone] 10/14/2024 11:00 EST Hospital Encounter [facility] OR [address] [place] [address] [phone] Clemente Gerardo MD [address] [place] [address] [phone] 10/14/2024 11:00 EST - 10/14/2024 14:35 EST Surgery [facility] OR [address] [place] [address] [phone] Clemente Gerardo MD [address] [place] [address] [phone] Implantation of inflatable penile prosthesis [17008 (CPT??)] 10/17/2024 9:00 EST Telemedicine [facility] Urology - [address] [phone] Nurse Call, [facility] Urology 10/31/2024 15:00 EST Post-op Visit [facility] Urology - [facility] [address] [place], [place] [phone] Clemente Gerardo MD 111 [facility], [address] [place] [phone] 12/06/2024 10:15 EST Office Visit [facility] Ophthalmology [facility] [address] [place], [place] [phone] Spike Puentes MD [address] [place] [phone] Scheduled Procedures Name Priority Associated Diagnoses Date/Ti me INSERTION, PENILE PROSTHESIS, INFLATABLE, 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 10/14/2024 11:00 EST documented as of this encounter Visit Diagnoses Diagnosis Tick bite of left forearm, initial encounter- Primary Polyarthralgia Pain in joint, multiple sites Body aches Generalized pain Erectile dysfunction after radical prostatectomy documented in this encounter Care Teams Java Developer Analyst Relationship Specialty Start Date End Date Marco Aleman MD [address] [facility] [address] [place] [address] PCP - General Emergency Medicine 12/07/23 documented as of this encounter
--- OUTSIDE RECORDS SUMMARY | 2024-07-19 22:10 | XMS_ITS | Encounter Summary ---
Author Organization [facility] Address [address] [place] [address] Care Team Providers Care Roller Staker Name Role Phone Marco Aleman MD Primary Care Provider [phone] Reason for Visit * Auth/Cert (Routine) Specialty Diagnoses / Procedures Referred By Yi cummings Referred To Contact Diagnoses Chronic pain of left knee Chronic pain of left knee [M25.562, G89.29] Procedures IL ARTHROSCOPY KNEE REMOVAL LOOSE/FOREIGN BODY IL ARTHRS KNEE W/MENISCECTOMY MED&LAT W/SHAVING IL ARTHRS KNEE DEBRIDEMENT/SHAVING ARTCLR CRTLG IL ARTHROSCOPY KNEE SYNOVECTOMY LIMITED SPX ARTHROSCOPY, KNEE, WITH LOOSE OR FOREIGN BODY REMOVAL MENISCECTOMY, KNEE, MEDIAL AND LATERAL, ARTHROSCOPIC, WITH ARTICULAR CARTILAGE SHAVING ARTHROSCOPY, KNEE, WITH DEBRIDEMENT OR SHAVING OF ARTICULAR CARTILAGE ARTHROSCOPY, KNEE, WITH LIMITED SYNOVECTOMY Referral ID Status Reason Start Date Expiration Date Visits Re quested Visits Authorized [id number] 1 1 Encounter Details Date Type Department Care Team (Late st Contact Info) Description 02/16/2024 13:40 EDT Anesthesia Event [facility] Operating Room [address] [place] [address] Rachel Dobbins MD [address] [facility], Level 2 [place] [address] Anesthesia Record Procedure Summary Procedure Name Responsible Anesthesiologist Anesthesia Start Time Anesthesia Stop Time ARTHROSCOPY, KNEE, WITH LOOSE OR FOREIGN BODY REMOVAL (Left: Knee) Rachel Dobbins MD 02/16/24 1340 02/16/24 1432 Events Date Time Event Comment 02/16/2024 1340 An Start The patient was re-evaluated immediately before moderate or deep sedation use, before anesthesia induction, or before the anesthesia procedure. 1340 An Start Data 1347 An Induction The patient was reevaluated immediately before moderate or deep sedation use and before anesthesia induction. 1348 An Intubation 1351 Anesthesia Ready 1403 An Tourn Inflated Tourniquet Inflated - Location = L leg, Pressure = 250 mmHg 1403 Incision 1414 An Tourn Deflated Tourniquet Deflated - Duration = 11 minutes 1423 An Extubation 1424 an stop data 1432 Handoff to RN I completed my handoff to the receiving nurse during which we: 1. Identified the patient 2. Identified the responsible provider 3. Reviewed the pertinent medical history 4. Discussed the surgical course 5. Reviewed intra-op anesthesia management and issues during anesthesia 6. Set expectations for post-procedure period 7. Allowed opportunity for questions and acknowledgement of understanding. 1432 An Stop Meds Name Total ePHEDrine vial 50 mg/mL 5 mg fentanyl citrate (PF) injection 50 mcg glycopyrrolate injection 0.4 mg ketAMINE 10 mg/mL vial 20 mg midazolam (versed) 1 mg/mL 2 mL vial 2 m g ondansetron (PF) (ZOFRAN) injection 4 mg lidocaine 2% (PF) injection glass vial 6 0 mg propOFol (DIPRIVAN) injection 150 mg ceFAZolin in dextrose 5 % (ANCEF) IVPB D UPLEX 2,000 mg 2,000 mg lactated ringers (LR) infusion 500 mL * Agents Name Insp Sevoflurane Exp Sevoflurane O2 N2O Air * Blood No blood administrations on file. Lines, Drains, and Airways Type Details Placement Removal Wound 02/16/24; (was notif ed by or nurse to keep watch of .); Pressure inj; Anterior, Left; Foot; on left foot, great toe and 2nd toe. white in color on arrival to pacu. with noticble bruise from cling from hanging foot to prep leg. on discharge, toes all pink with less then 3 sec cap refill. warm to touch. no white noted. there is still a small bruise across great toe and 2nd toe. family aware to watch this and call dr. carey office if gets worse. 02/16/24 0000 by Teresa Ortiz RN Wound 02/16/24; 1346; Left ; Knee; surgical incisions consistent with left knee arthroscopy 02/16/24 1346 by Clemencia Cedeño RN Peripheral IV 02/16/24; 1207; 20; Left, Posterior; Hand; Inserted by RN; 2; 02/16/24; 1702; Discharged; No complications 02/16/24 1207 by Becky Bowers RN 02/16/24 1702 by Teresa Ortiz RN Non-Surgical Airway 02/16/24; 1401 (creyifan miller via procedure documentation); 02/16/24; 1423 02/16/24 1401 by Rachel Dobbins MD 02/16/24 1423 by Rachel Dobbins MD documented in this encounter Social History Tobacco [...] No 02/10/2023 documented as of this encounter OR Notes * Anesthesia Postprocedure Evaluation - Rachel Dobbins MD - 02/16/2024 1433 EDT Patient: Roland Vega Vital signs were reviewed with the recovery nurse. Complete vitals history is available in the [facility]. Vitals Value Taken Time BP 105/68 02/16/24 1430 Temp 36.1 ??C (97 ??F) 02/16/24 1427 Resp 13 02/16/24 1432 Pulse From Oximetry 61 BPM 02/16/24 1432 SpO2 97 % 02/16/24 1432 Heart Rate 61 BPM 02/16/24 1432 Vitals shown include unvalidated device data. Last Pain Score - Numeric Pain Level (Scale 1-10): 0 Type of Anesthesia - general Anesthesia Post Evaluation Post-procedure vitals reviewed and are stable. Level of consciousness: awake Temperature status: normothermia Respiratory status: airway patent Cardiovascular status: acceptable Hydration status: adequate Nausea/Vomiting: none Pain management: adequate Post-Op Assessment: patient tolerated procedure well with no complications Patient participation: able to participate Disposition: outpatient/home Anesthesia Complications: No apparent anesthesia complications * Anesthesia Procedure Notes - Rachel Dobbins MD - 02/16/2024 1401 EDT Associated Order(s): Airway Airway Date/Time: 02/16/2024 13:48 Urgency: elective Airway not difficult General Information and Staff Patient location during procedure: OR Anesthesiologist: Rachel Dobbins MD Performed: anesthesiologist Performed by: Rachel Dobbins MD Authorized by: Rachel Dobbins MD Indications and Patient Condition Indications for airway management: anesthesia Sedation level: GA Preoxygenated: yes Ventilation assessment: 0 - not attempted Final Airway Details Final airway type: supraglottic airway Successful airway: LMA (igel) Size 5 Number of attempts at approach: 1 * Anesthesia Preprocedure Evaluation - Rachel Dobbins MD - 02/15/2024 1328 EDT Anesthesia Preprocedure Evaluation Last plavix 02/12/24 Patient Medical History, including Anesthesia History reviewed. Chart and Nursing Notes reviewed, including NPO status and Medication History. Additional ROS/History Findings: Past Medical History: Diagnosis Date Abnormal stress test 04/20/2017 s/p JANET Activity, other involving cardiorespiratory exercise 01/30/23- able to climb 2 FOS w/o SOB Amblyopia per pt-left eye Anemia 02/10/2023 Anomaly, cardiac cardiac stents Arrhythmia 01/30/23- currently has zio patch for palpitations, CP, and SOB Cancer ([facility]) prostates and skin cancer Cerebral artery occlusion with cerebral infarction ([facility]) 2018 01/30/23-Acute ischemic left MCA stroke. no residual deficits Chest pain 01/30/23- currently has zio patch for palpitations, CP, and SOB Claustrophobia 01/30/23- in closed room Colon polyp Exercise involving housework GERD (gastroesophageal reflux disease) 01/30/23- controlled w/ Protonix, sleeps on side for comfort History of general anesthesia Hyperlipidemia Hypertension 01/30/23- well controlled per pt GA (myocardial infarction) ([facility]) 2007 x2. 2008 & 2011. JANET x4 Poor dentition 01/30/23- reports having 2 broken teeth Rash 01/30/23- eczema on face Seizures ([facility]) 2019 01/30/23- well controlled on Lamictal, thought to be due to high dose Wellbutrin. None since 2018 Shortness of breath 01/30/23- currently has zio patch for palpitations, CP, and SOB From cardiology note: ASCVD (arteriosclerotic cardiovascular disease) Overview Note: Dec 2004 MIBI ETT (preop): 10 METS, fatigue, no angina, moderate ant-apical ischemia, LVEF 51% 12/16/04 Cardiac cath : LVEDP of 10 mm, LVEF 70% nl RWMA,, mild diffuse disease in the LAD with a 30% D1 stenosis. 05/23/09 Echocardiography : LVEF 70% no RWMA, nl RV, borderline RVH, +1 MR, moderate asc aortic dilation 11/12/2010 Cardiac cath for NSTEMI: Ectatic prox LAD, 60% ost D1, 85% prox RCA, 50% os RPDA, PCI of 85% prox RCA, BMS, also proximal segment of the LAD was ectatic and ulcerated, Echo 11/13/10: EF 70%,no wall motion abnormalities 01/29/17 Echocardiography : LVEF 65%, no RWMA, nl RV, 02/26/17 Stress echo : REst- LVEF 65%, no RWMA, nl RV, Stress- PHR-130, 6:00 min, 5.5 METS, no angina, no EKG changes, DTS (-)5 04/20/17 Cardiac cath: * Three vessel coronary artery disease (LAD, LCX and RCA), * Elevated left ventricular end diastolic pressure * Successful stent insertion of the proximal OM1 lesion * Successful stent insertion of the ostial RPDA lesion * Successful stent insertion of the mid D1 lesion 09/01/2018 Cardiac cath: LM - Mild luminal irregularity, LAD - Moderate proximal ectasia; prior stent in the mid-D1 is widely patent; D1 has an ostial 60% stenosis; mild diffuse disease in the aue-po-jrxlim vessel, LCX - Mild luminal irregularities; prior stent in high OM1 is widely patent, RCA - Large caliber vessel; mid-vessel is ectactic; prior stent in the rPDA is widely patent, LVEDP 11 mmHg; no significant ksmi-qj-pzwi gradient across the aortic valve Relevant Problems No relevant active problems Past Surgical History: Procedure Laterality Date CARDIAC CATHERIZATION 12/2004 normal - Dr. Evans [facility] COLONOSCOPY 12/2004 WNL - Dr. Turcios f/u 10 yrs CORONARY ANGIOPLASTY WITH STENT PLACEMENT 2010 NSTEMI s/p JANET FOOT SURGERY Right tendon surgery RADICAL PROSTATECTOMY 12/2004 Laparoscopic radical prostatectomy, umbilical hernia repair - Dr. Encinas [facility] SINUS SURGERY nasal / sinus surgery Past Anesthetics Colonoscopy- mac 2022, no others on file SOCIAL HISTORY: [] None [] Current smoking [] Vaping [] Marijuana [] Alcohol Social History Tobacco Use Smoking Status Former Smokeless Tobacco Never Social History Substance and Sexual Activity Drug Use Not Currently Types: Marijuana Comment: medical marijuana Social History Substance and Sexual Activity Alcohol Use Yes Alcohol/week: 7.0 standard drinks of alcohol Types: 7 Glasses of wine per week FAMILY HISTORY: []No family history of allergic reactions to anesthesia No current facility-administered medications on file prior to encounter. Current Outpatient Medications on File Prior to Encounter Medication Sig Dispense Refill ascorbic acid, vitamin C, (VITAMIN C) 500 [...] daily (Patient not taking: Reported on 12/08/2023) 100 Each 3 buPROPion (WELLBUTRIN SR) 150 mg SR tablet Take 1 tablet by mouth once daily 90 Tablet 0 cholecalciferol, Vitamin D3, 125 mcg (5000 unit) capsule Take by mouth daily. clopidogreL (PLAVIX) 75 mg tablet Take 1 Tablet by mouth daily. 90 Tablet 3 DIABETIC SUPPLIES, CaterCowAN. MISC Syringe 3cc (Patient not taking: Reported on 12/08/2023) diazePAM (VALIUM) 5 mg tablet Take 1-2 tabs 1 hr prior to flights and before procedure 10 Tablet 0 erythromycin (ROMYCIN) 5 mg/gram (0.5 %) ophthalmic ointment Apply 1/4 strip (Patient not taking: Reported on 12/08/2023) 3.5 g 0 famotidine (PEPCID) 40 mg tablet Take 1 Tablet by mouth daily. L.acid/L.casei/B.bif/B.mila/FOS (PROBIOTIC BLEND ORAL) Take by mouth daily. (Patient not taking: Reported on 12/08/2023) lamoTRIgine (LAMICTAL) 25 mg tablet One po bid (Patient taking differently: Take 1 Tablet by mouth 2 times daily. Three pills po bid, for anxiety) 180 Tablet 5 LANCETS & BLOOD GLUCOSE STRIPS MISC test [...] 1 Tablet under the tongue as needed. Kdewr-3-JDE-EPA-Fish Oil 1,000 (120-180) mg capsule Take 1,000 mg by mouth 2 times daily. pantoprazole (PROTONIX) 40 mg tablet Take 1 tablet by mouth once daily (Patient not taking: Reported on 12/08/2023) 90 Tablet 0 POTASSIUM ACETATE MISC 90 mg by mis (non-drug; combo route) route daily. (Patient not taking: Reported on 02/12/2024) testosterone cypionate (DEPO-TESTOSTERONE) 200 mg/mL injection Inject 1.5 mL into the muscle once aweek. 2 vials of 10mL please Daily Max: 300 mg 20 mL 1 ubidecarenone/vitamin E mixed (COQ10 SG 100 ORAL) Take by mouth daily. VITAMIN B COMPLEX ORAL Take by mouth daily. vitamin E mixed/tocotrienol (VITAMIN E COMPLEX ORAL) Take 400 mg by mouth daily. No current facility-administered medications for this encounter. Current Outpatient Medications Medication ascorbic acid, vitamin C, (VITAMIN C) 500 mg tablet aspirin 325 mg tablet BENFOTIAMINE ORAL blood glucose meter blood glucose test strips buPROPion (WELLBUTRIN SR) 150 mg SR tablet cholecalciferol, Vitamin D3, 125 mcg (5000 unit) capsule clopidogreL (PLAVIX) 75 mg tablet DIABETIC SUPPLIES, MISCELLAN. MISC diazePAM (VALIUM) 5 mg tablet erythromycin (ROMYCIN) 5 mg/gram (0.5 %) ophthalmic ointment famotidine (PEPCID) 40 mg tablet L.acid/L.casei/B.bif/B.mila/FOS (PROBIOTIC BLEND ORAL) lamoTRIgine (LAMICTAL) 25 mg tablet LANCETS & BLOOD GLUCOSE STRIPS MISC Magnesium 250 mg tablet MEDICAL MARIJUANA niacin (NICOTINIC ACID) 100 mg tablet nitroGLYCERIN (NITROSTAT) 0.4 mg SL tablet Czvel-3-PBB-EPA-Fish Oil 1,000 (120-180) mg capsule pantoprazole (PROTONIX) 40 mg tablet POTASSIUM ACETATE MISC testosterone cypionate (DEPO-TESTOSTERONE) 200 mg/mL injection ubidecarenone/vitamin E mixed (COQ10 SG 100 ORAL) VITAMIN B COMPLEX ORAL vitamin E mixed/tocotrienol (VITAMIN E COMPLEX ORAL) Allergies Allergen Reactions Other - See Comments Anaphylaxis swordfish Sulfa (Sulfonamide Antibiotics) Anaphylaxis and Shortness Of Breath Lisinopril Swelling of tongue Cyclobenzaprine psychosis Ibuprofen Swelling Other reaction(s): edema Pt does take ibuprofen Naproxen Sodium Swelling Other reaction(s): edema Tramadol Other (See Comments) Other reaction(s): DIZZINESS Lab Results Component Value Date WBC 4.18 02/19/2023 HGB 10.5 (L) 02/19/2023 HCT 32.5 (L) 02/19/2023 MCV 96 (H) 02/19/2023 PLT 284 02/19/2023 Lab Results Component Value Date NA 137 02/12/2023 K 4.2 02/12/2023 CL 106 02/12/2023 CO2 26 02/12/2023 Lab Results Component Value Date BUN 11 02/12/2023 Lab Results Component Value Date CREATININE 0.94 02/12/2023 Blood Type: ABO Date/Time Value Ref Range Status 02/10/2023 16:49 O Final Rh Factor Date/Time Value Ref Range Status 02/10/2023 16:49 Positive Final Antibody Screen Date/Time Value Ref Range Status 02/10/2023 14:03 Negative Final Specimen Expires: Date/Time Value Ref Range Status 02/10/2023 14:03 02/13/2023 @ 23:59 Final EKG: [] None on file ECHO: 2017 (new echo ordered 2022 but never completed) Summary: 1. Study data: Comparison was made to the study of November 2010. EF 74%. 2+ MR. PAP 32 mmHg. 2. Left ventricle: The cavity size was normal. Wall thickness was increased in a pattern of moderate LVH. Systolic function was normal. The estimated ejection fraction was 60-65%. There was an increased relative contribution of atrial contraction to ventricular filling. Findings consistent with diastolic dysfunction. Doppler parameters are consistent with high ventricular filling pressure. 3. Mitral valve: Mildly calcified annulus. Mildly thickened, mildly calcified leaflets. 4. Right ventricle: The cavity size was mildly dilated. Systolic function was mildly reduced. 5. Atrial septum: No defect or patent foramen ovale was identified. 6. Pulmonary arteries: Systolic pressure could not be accurately estimated. 7. Inferior vena cava: The vessel was normal in size. The respirophasic diameter changes were in the normal range (greater than or equal to 50%), consistent with normal central venous pressure. Cardiac Stress: [] None on file Left Heart Cath: [] None on file Ht 180.3 cm (71) Wt (!) 110.7 kg (244 lb) BMI 34.03 kg/m?? Patient Vitals for the past 24 hrs: BP Temp Temp src Resp SpO2 Height Weight 02/16/24 1231 -- -- -- 18 96 % -- -- 02/16/24 1144 (!) 158/81 36.5 ??C (97.7 ??F) Oral -- 97 % -- -- 02/16/24 1143 -- -- Oral -- -- -- -- 02/16/24 1130 -- -- -- -- -- 180.3 cm (71) (!) 111.1 kg (245 lb) NPO Status: Liquids: Solids: Review of Systems HENT: Positive for congestion. Respiratory: Negative for shortness of breath and wheezing. Cardiovascular: Negative for chest pain, palpitations and leg swelling. Gastrointestinal: Negative for heartburn. Uses pepcid Neurological: Positive for tremors. Negative for seizures. Mca stroke several years ago- no residual deficit Psychiatric/Behavioral: The patient is nervous/anxious. Physical Exam Airway Mallampati: II TM distance: >3 FB Neck ROM: full Cardiovascular Rhythm: regular Rate: abnormal Comments: Luis Miguel- 40's Dental Comments: All either implants or caps- nothing comes out Pulmonary - normal exam Abdominal Anesthesia Plan ASA 3 Anesthesia Type - general Anesthesia plan and risks discussed. Informed consent obtained from patient. documented in this encounter Plan of Treatment Upcoming Encounters Date Type Department Care Team (Late st Contact Info) Description 10/04/2024 9:50 EST Appointment [facility] Pre-Surgical Testing [address] [place] [address] [phone] 10/14/2024 11:00 EST Hospital Encounter [facility] OR [address] [place] [address] [phone] Clemente Gerardo MD [address] [place] [address], Level [address] [place] [phone] 10/14/2024 11:00 EST - 10/14/2024 14:35 EST Surgery [facility] OR [address] [place], [place] [id number] Clemente Gerardo MD [address] [place] [phone] Implantation of inflatable penile prosthesis [03114 (CPT??)] 10/17/2024 9:00 EST Telemedicine [facility] Urology [address] [phone] Nurse Call, [facility] Urology 10/31/2024 15:00 EST Post-op Visit [address] [phone] Clemente Gerardo MD [address] [place] [phone] 12/06/2024 10:15 EST Office Visit [facility] [address] [place] [address] Spike Puentes MD [address] [place] [phone] Scheduled Procedures Name Priority Associated Diagnoses Date/Ti me INSERTION, PENILE PROSTHESIS, INFLATABLE, 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 10/14/2024 11:00 EST documented as of this encounter Procedures Procedure Name Priority Date/Time Associated Diagnosis Comments ANESTHESIA INTUBATION Routine 02/16/2024 13:48 EDT documented in this encounter Results * IL AN ELECTIVE SUPRAGLOTTIC AIRWAY (02/16/2024 13:48 EDT) Narrative [facility] POINT OF CARE - 02/16/2024 13:48 EDT Rachel Dobbins MD ? 02/16/2024 14:01 Airway Date/Time: 02/16/2024 13:48 Urgency: elective Airway not difficult General Information and Staff Patient location during procedure: OR Anesthesiologist: Rachel Dobbins MD Performed: anesthesiologist Performed by: Rachel Dobbins MD Authorized by: Rachel Dobbins MD ?? Indications and Patient Condition Indications for airway management: anesthesia Sedation level: GA Preoxygenated: yes Ventilation assessment: 0 - not attempted Final Airway Details Final airway type: supraglottic airway Successful airway: LMA (igel) Size 5 Number of attempts at approach: 1 Rachel Dobbins MD ANESTHESIA ORDERABLE S Performing Organization Address City/State/[facility] Co ma Phone Number [facility] POINT OF CARE documented in this encounter Visit Diagnoses Not on filedocumented in this encounter Administered Medications Inactive Administered Medications - up to 3 most recent administrations Medication Order MAR Action Action Date Dose Rate Site ceFAZolin in dextrose 5 % (ANCEF) IVPB DUPLEX 2,000 mg 2,000 mg, intravenous, Administer over 30 Minutes, PRE-OP ONCE, 1 dose, On Thu02/16/24 at 1145, Type of Therapy: Prophylaxis, Suspected Indication (Select all that apply): Surgical prophylaxis, Routine, Preprocedure Given 02/16/2024 13:51 EDT 2,000 mg ePHEDrine injection intravenous, PRN, Starting on Thu02/16/24 at 1410, Until Thu02/16/24 at 1433, Routine, Anesthesia Intraprocedure Given 02/16/2024 14:10 EDT 5 mg fentaNYL citrate (PF) injection intravenous, PRN, Starting on Thu02/16/24 at 1404, Until Thu02/16/24 at 1433, Routine, Anesthesia Intraprocedure Given 02/16/2024 14:04 EDT 50 mcg glycopyrrolate (ROBINUL) injection intravenous, PRN, Starting on Thu02/16/24 at 1345, Until Thu02/16/24 at 1433, Routine, Anesthesia Intraprocedure Given 02/16/2024 13:47 EDT 0.2 mg Given 02/16/2024 13:45 EDT 0.2 mg ketAMINE (KETALAR) IV injection vial intravenous, PRN, Starting on Thu02/16/24 at 1346, Until Thu02/16/24 at 1433, Routine, Anesthesia Intraprocedure Given 02/16/2024 14:04 EDT 10 mg Given 02/16/2024 13:46 EDT 10 mg lactated ringers (LR) infusion 25 mL/hr, intravenous, CONTINUOUS, Starting on Thu02/16/24 at 1145, Until Thu02/16/24 at 1906, Routine, Preprocedure Continued by Anesthesia 02/16/2024 13:40 EDT 25 mL/hr New Bag 02/16/2024 12:08 EDT 25 mL/hr 25 mL/hr lidocaine (PF) 20 mg/mL (2 %) injection intravenous, PRN, Starting on Thu02/16/24 at 1346, Until Thu02/16/24 at 1433, Routine, Anesthesia Intraprocedure Given 02/16/2024 13:46 EDT 60 mg midazolam (PF) (VERSED) injection intravenous, PRN, Starting on Thu02/16/24 at 1343, Until Thu02/16/24 at 1433, Routine, Anesthesia Intraprocedure Given 02/16/2024 13:43 EDT 2 mg ondansetron (PF) (ZOFRAN) injection intravenous, PRN, Starting on Thu02/16/24 at 1415, Until Thu02/16/24 at 1433, Routine, Anesthesia Intraprocedure Given 02/16/2024 14:15 EDT 4 mg propOFol (DIPRIVAN) injection intravenous, PRN, Starting on Thu02/16/24 at 1347, Until Thu02/16/24 at 1433, Routine, Anesthesia Intraprocedure Given 02/16/2024 13:47 EDT 150 mg documented in this encounter Care Teams Roller Staker Relationship Specialty Start Date End Date Marco Aleman MD [address] [facility] [address] [place] [address] PCP - General Emergency Medicine 12/07/23 documented as of this encounter
--- OUTSIDE RECORDS SUMMARY | 2024-07-19 22:10 | XMS_ITS | Encounter Summary ---
Author Organization [facility] Address [address] [place] [address] Care Team Providers Care Music Critic Name Role Phone Marco Aleman MD Primary Care Provider [phone] Encounter Details Date Type Department Care Team (Latest Contact Info) Description 06/07/2024 Travel Social History Tobacco Use Types Packs/Day Years [...] No 02/10/2023 Cognitive Status Response Date of Assess ent Because of a physical, menta l, or emotional condition, do you have serious difficulty concentrating, remembering, or making decisions? (5 years old or older) No 02/10/2023 documented as of this encounter Plan of Treatment Upcoming Encounters Date Type Department Care Team (Late st Contact Info) Description 10/04/2024 9:50 EST Appointment [facility] Pre-Surgical Testing [address] [place] [address] [phone] 10/14/2024 11:00 EST Hospital Encounter [facility] OR [address] [place] [address] [phone] Clemente Gerardo MD [address] [place] [phone] 10/14/2024 11:00 EST - 10/14/2024 14:35 EST Surgery [facility] OR [address] [place] [address] [phone] Clemente Gerardo MD [address] [place] [address] [phone] Implantation of inflatable penile prosthesis [14791 (CPT??)] 10/17/2024 9:00 EST Telemedicine [facility] U[facility] [address] [phone] Nurse Call, [facility]rology 10/31/2024 15:00 EST Post-op Visit [facility] [address] [phone] Clemente Gerardo MD [address] [place] [address] [phone] 12/06/2024 10:15 EST Office Visit [facility] Ophthalmology [facility] [address] [place] [address] Spike Puentes MD [address] [place] [phone] Scheduled Procedures Name Priority Associated Diagnoses Date/Ti me INSERTION, PENILE PROSTHESIS, INFLATABLE, 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 10/14/2024 11:00 EST documented as of this encounter Visit Diagnoses Not on filedocumented in this encounter Care Teams Music Critic Relationship Specialty Start Date End Date Marco Aleman MD [address] [facility] [address] [place] [address] PCP - General Emergency Medicine 12/07/23 documented as of this encounter
--- OUTSIDE RECORDS SUMMARY | 2024-07-19 22:10 | XMS_ITS | Encounter Summary ---
Author Organization [facility] Address [address] [place] [address] Care Team Providers Care Photovoltaic Installer Name Role Phone Marco Aleman MD Primary Care Provider [phone] Reason for Visit * Reason Comments Glaucoma Suspicion Here for complete ex am and OCT Encounter Details Date Type Department Care Team (Late st Contact Info) Description 06/06/2024 14:30 EDT Office Visit [facility] Ophthalmology [facility] [address] [place], [place] [phone] Spike Puentes MD [address] [place] [phone] Social History Tobacco Use Types Packs/Day Years [...] as of this encounter Progress Notes * Spike Puentes MD - 06/06/2024 1430 EDT Chief Complaint Patient presents with Glaucoma Suspicion Here for complete exam and OCT HPI The patient is a 74 y.o. male here for follow pu of glaucoma suspicion. He reports that his vision has been pretty stable. he has no eye pain, double vision, or new flashes/floaters. He uses some artificial tears. Right Eye: Blurred Vision Left Eye: Blurred Vision Visual Aid: Glasses Current Rx Age Location: Pain: 0 - No pain Quality: Severity: Duration: Timing: Lasts: Context: Blurred vision without glasses, with glasses on for distance and near vision is good. No pain, many floaters, seem stable. No flashes. Happy with SVL distance specs and computer/near PAL. Modifying factors: Associated Signs & Symptoms: Attestation: ROS Constitutional: NL ENT/Mouth Cardiovascular: High Blood Pressure, High Cholesterol (CAD) Respiratory: Gastrointestinal: (GERD) Genitourinary: Musculoskeletal: (arthritis) Integumentary: Neurologic: (h/o TIA/CVA) Psychiatric: Endocrine: Hematologic: (h/o prostate CA) Immunologic: Drug Allergy [employer] Driver: Exposures: None Other: Attestation: Base Eye Exam Visual Acuity (Snellen - Linear) Right Left Dist cc 20/20 20/250 Dist ph cc NI VA checked through phoropter with most recent wearing Rx, distance glasses not present today Tonometry (Applanation, 14:54) Right Left Pressure 17 20 Tonometry #2 (Applanation-MD, 15:46) Right Left Pressure 17 20 Pupils Pupils APD Right PERRL None Left PERRL None Visual Lovett (Counting fingers) Right Left Full Full Extraocular Movement Right Left Full Full Neuro/Psych Oriented x3: Yes Mood/Affect: Normal Dilation Both eyes: Phenylephrine 2.5%, Tropicamide 1% @ 14:54 Slit Lamp and Fundus Exam External Exam Right Left External Normal Normal Slit Lamp Exam Right Left Lids/Lashes Papilloma lateral upper eyelid Blepharitis Conjunctiva/Sclera White and quiet Conjunctival cyst nasally Cornea Clear Clear Anterior Chamber Deep and quiet Deep and quiet Iris Round and reactive Round and reactive Lens 1-2+ Nuclear sclerosis 1-2+ Nuclear sclerosis Fundus Exam Right Left Vitreous Posterior vitreous detachment Asteroid hyalosis, Posterior vitreous detachment Disc Normal Normal C/D Ratio 0.55 0.65 Macula Trace epiretinal membrane Normal Vessels Normal Normal Periphery Normal Normal Refraction Manifest Refraction Declines MRx DIAGNOSTIC TESTING/PROCEDURES: OCT, Optic Nerve - OU - Both Eyes Indication: glaucoma suspect OCT Optic Nerve Head and rNFL: Right: signal strength: 7/10 Avg thickness: 93 no thinning Left: signal strength: 6/10 Avg thickness: 58 thinning superior and inferior, borderline temporal IMPRESSION & PLAN: 1. 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 Cataract, both eyes Not visually significant -Monitor periodically 3. Posterior vitreous detachment, both eyes Stable, monitor periodically 4. Amblyopia, left eye Stable monitor I have reviewed the patient's past medical, family, social and surgical history. I have also reviewed the patient's medications, allergies, and problem list. I performed my own history and have reviewed the tech's ROS as well. I completed this exam personally. Spike Puentes MD documented in this encounter Plan of Treatment Upcoming Encounters Date Type Department Care Team (Late st Contact Info) Description 10/04/2024 9:50 EST Appointment [facility] Pre-Surgical Testing [address] [place] [address] 10/14/2024 11:00 EST Hospital Encounter [facility] OR [address] [place] [address] [phone] Clemente Gerardo MD [address] [place] [address] [phone] 10/14/2024 11:00 EST - 10/14/2024 14:35 EST Surgery [facility] OR [address] [place] [address] [phone] Clemente Gerardo MD [address] [place] [address] [phone] Implantation of inflatable penile prosthesis [50712 (CPT??)] 10/17/2024 9:00 EST Telemedicine [facility] Urology [address] [phone] Nurse Call, [facility] Urology 10/31/2024 15:00 EST Post-op Visit [address] [phone] Clemente Gerardo MD [address] [place] [address] [phone] 12/06/2024 10:15 EST Office Visit [facility] Ophthalmology [address] [address] Spike Puentes MD [address] [place] [address] [phone] Scheduled Procedures Name Priority Associated Diagnoses Date/Ti me INSERTION, PENILE PROSTHESIS, INFLATABLE, 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 10/14/2024 11:00 EST documented as of this encounter Procedures Procedure Name Priority Date/Time Associated Diagnosis Comments OCT, OPTIC NERVE - OU - BOTH EYES Routine 06/06/2024 15:47 EDT Glaucoma suspect, bilateral documented in this encounter Results * OCT, OPTIC NERVE - OU - BOTH EYES (06/06/2024 15:47 EDT) Narrative [facility] OPHTHALMOLOGY - 06/06/2024 15:47 EDT Indication: glaucoma suspect OCT Optic Nerve Head and rNFL: Right: signal strength: 7/10 Avg thickness: 93 no thinning Left: signal strength: 6/10 Avg thickness: 58 thinning superior and inferior, borderline temporal Spike Puentes MD OPHTH TOMOGRAPHY [facility] OPHTHALMOLOGY documented in this encounter Visit Diagnoses Diagnosis Glaucoma suspect, bilateral- Primary Senile nuclear sclerosis, right Senile nuclear sclerosis, left Posterior vitreous detachment of both eyes Vitreous degeneration Amblyopia of eye, left Erectile dysfunction after radical prostatectomy documented in this encounter Eye Exam Visual Acuity (Snellen - Linear) Right eye Left eye Dist cc 20/20 20/250 Dist ph cc NI VA checked through phoropter with most recent wearing Rx, distance glasses not present today Tonometry #1 (Applanation, 14:54) Right eye Left eye Pressure 17 20 Tonometry #2 (Applanation-MD, 15:46) Right eye Left eye Pressure 17 20 Pupils Pupils APD Right eye PERRL None Left eye PERRL None Visual Lovett (Counting fingers) Right eye Left eye Full Full Extraocular Movement Right eye Left eye Full Full Neuro/Psych Oriented x3: Yes Mood/Affect: Normal Dilation Both eyes: Phenylephrine 2.5 %, Tropicamide 1% @ 14:54 External Exam Right eye Left eye External Normal Normal Slit Lamp Exam Right eye Left eye Lids/Lashes Papilloma lateral upper eyelid B lepharitis Conjunctiva/Sclera White and quiet Conjunctival cyst nasally Cornea Clear Clear Anterior Chamber Deep and quiet Deep and quiet Iris Round and reactive Round and sharmila ctive Lens 1-2+ Nuclear sclerosis 1-2+ Nucl ear sclerosis Fundus Exam Right eye Left eye Posterior Vitreous Posterior vitreous detachment Asteroid hyalosis, Posterior vitreous detachment Disc Normal Normal C/D Ratio 0.55 0.65 Macula Trace epiretinal membrane Normal Vessels Normal Normal Periphery Normal Normal Manifest Refraction Declines MRx Care Teams Photovoltaic Installer Relationship Specialty Start Date End Date Marco Aleman MD 26 [facility] [address] [place] [phone] PCP - General Emergency Medicine 12/07/23 documented as of this encounter
--- OUTSIDE RECORDS SUMMARY | 2024-07-19 22:10 | XMS_ITS | Encounter Summary ---
Author Organization [facility] Address [address] [place] [address] Care Team Providers Care Hydrometeorology Teacher Name Role Phone Marco Aleman MD Primary Care Provider [phone] Encounter Details Date Type Department Care Team (Latest Contact Info) Description 02/23/2024 Plan of Care Documentation [facility] Rehabilitation Therapy [address] [place] [address] [phone] Social History Tobacco Use Types Packs/Day Years [...] as of this encounter Progress Notes * Ping Gee, PT - 02/23/2024 0758 EDT Outpatient Rehab Plan of Care Assessment ASSESSMENT Therapy Diagnosis: Left knee pain, decreased ROM, swelling, weakness, impaired gait causing impaired functional mobility s/p L knee scope 02/16/24 Problem List: Decreased ROM, Decreased strength, Difficulty lifting, Difficulty with prolonged standing, Impaired ADLs, Impaired ambulation, Impaired balance, Impaired stair/curb negotiation, Need for an independent home exercise program, and Pain Assessment: The patient is a pleasant 73 year old male known to this therapist who presents 6 days s/p L knee scope for loose body removal, medial and lateral meniscectomy, and debridement of articular cartilage. Patient is demonstrating decreased ROM, weakness, impaired gait, and swelling all consistent with post op state, will benefit from course of PT> Equipment Needed: none currently Barriers to Learning: none Potential Barriers to Progress: None Response to Evaluation: Well Rehabilitation Potential: Motivation/Commitment to Therapy: Good Rehabilitation Potential: Good Short-Term Goals Timeframe: 03/25/24 Improved ROM of left knee to allow sitting in a chair with 90 degree bend comfortably Improved strength to ambulate up stairs in a reciprocal fashion in his home with one hand hold Long-Term Goals Timeframe: 04/22/24 Patient will have improved strength and balance LLE to ambulate on outdoor variable terrain around his home without limitation. Patient will have no gait deviation on level ground carrying up to 30 pounds of household items unilaterally PLAN Medical Necessity: Therapy intervention is indicated in order to return to a premorbid level of function or significantly improve current level of function. Physical Therapy is recommended for: Treatment Frequency/ Duration: weekly for 8 weeks Therapy Treatment to include: 98215 - Hot Cold Pack, G0283 - Electrical Stimulation Unsupervised, 95612 - Ultrasound, 65889 - Therapeutic Exercise, 32721 - Neuromuscular Re-education, 30878 - AquaticTherapy/Exercise, 91290 - Gait Training, 46849 - Manual Therapy, 62214 - Therapeutic Activity, and 58765 - Self Care/Home Management Recommended Consults: None Development of Plan of Care: Patient participated in development of plan of care today. Plan ATTENDING PHYSICIAN: Medicare certification needed. Your signature indicates you approve the therapy goals and plan of care outlined on this document dated 02/22/2024. Thank you! Attending Physician Signature Date documented in this encounter Plan of Treatment Upcoming Encounters Date Type Department Care Team (Late st Contact Info) Description 10/04/2024 9:50 EST Appointment [facility] Pre-Surgical Testing [address] [place] [address] [phone] 10/14/2024 11:00 EST Hospital Encounter [facility] OR [address] [place] [address] [phone] Clemente Gerardo MD [address] [place] [address] [phone] 10/14/2024 11:00 EST - 10/14/2024 14:35 EST Surgery [facility] OR [address] [place] [address] [phone] Clemente Gerardo MD [address] [place] [address] [phone] Implantation of inflatable penile prosthesis [95781 (CPT??)] 10/17/2024 9:00 EST Telemedicine [facility] Urology - [address] [phone] Nurse Call, [facility] Urology 10/31/2024 15:00 EST Post-op Visit [facility] Urology - [facility] [address] [place], [place] [phone] Clemente Gerardo MD [address] [facility], [address] [place] [phone] 12/06/2024 10:15 EST Office Visit [facility] Ophthalmology [facility] [address] [place], [place] [phone] Spike Puentes MD [address] [place] [phone] Scheduled Procedures Name Priority Associated Diagnoses Date/Ti me INSERTION, PENILE PROSTHESIS, INFLATABLE, 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 10/14/2024 11:00 EST documented as of this encounter Visit Diagnoses Not on filedocumented in this encounter Care Teams Hydrometeorology Teacher Relationship Specialty Start Date End Date Marco Aleman MD 26 [facility] [address] [place] [address] PCP - General Emergency Medicine 12/07/23 documented as of this encounter
--- OUTSIDE RECORDS SUMMARY | 2024-07-19 22:10 | XMS_ITS | Encounter Summary ---
Author Organization [facility] Address [address] [place] [address] Care Team Providers Care Salt Cutter Name Role Phone Marco Aleman MD Primary Care Provider [phone] Encounter Details Date Type Department Care Team (Latest Contact Info) Description 02/16/2024 Travel Social History Tobacco Use Types Packs/Day [...] Appointment [facility] Pre-Surgical Testing [address] [place] [address] [phone] 10/14/2024 11:00 EST Hospital Encounter [facility] OR [address] [place] [address] [phone] Clemente Gerardo MD [address] [place] [address] [phone] 10/14/2024 11:00 EST - 10/14/2024 14:35 EST Surgery [facility] OR [address] [place] [address] [phone] Clemente Gerardo MD [address] [place] [address] [phone] Implantation of inflatable penile prosthesis [50792 (CPT??)] 10/17/2024 9:00 EST Telemedicine [facility] Urology [address] [phone] Nurse Call, [facility] Urology 10/31/2024 15:00 EST Post-op Visit [facility] Urology [address] [phone] Clemente Gerardo MD [address] [place] [address] [phone] 12/06/2024 10:15 EST Office Visit [facility] Ophthalmology [facility] [address] [place] [address] Spike Puentes MD [address] [place] [phone] Scheduled Procedures Name Priority Associated Diagnoses Date/Ti me INSERTION, PENILE PROSTHESIS, INFLATABLE, 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 10/14/2024 11:00 EST documented as of this encounter Visit Diagnoses Not on filedocumented in this encounter Care Teams Salt Cutter Relationship Specialty Start Date End Date Marco Aleman MD 26 [facility] [address] [place] [address] PCP - General Emergency Medicine 12/07/23 documented as of this encounter
--- OUTSIDE RECORDS SUMMARY | 2024-07-19 22:10 | XMS_ITS | Clinical Summary ---
Author Organization [facility] Address [address] [place] [address] Care Team Providers Care Ingredient Mixer Name Role Phone Marco Alemna MD Primary Care Provider [phone] Allergies Active Allergy Reactions Criticality Noted Date Comments Cyclobenzaprine Other (See Comments) Low 06/06/2019 psychosis Ibuprofen Swelling Low 06/06/2019 Other reaction(s): edema Pt does take ibuprofen Lisinopril Swelling of tongue Medium 03/07/2019 Naproxen Sodium Swelling Low 06/06/2019 Other reaction(s): edema Other - See Comments Anaphylaxis High 06/06/2019 swordfish Sulfa (Sulfonamide Antibiotics) Anaphylaxis,Shortnes s Of Breath High 04/18/2013 Tramadol Other (See Comments) Low 06/06/2019 Other reaction(s): DIZZINESS Medications Medication Sig Dispensed Refills Start Date End Date Status Pfqoy-3-AFP-EPA-Fi sh Oil 1,000 (120-180) mg capsule Take 1,000 mg by mouth 2 times daily. Active aspirin 325 mg tablet Take 1 Tablet by mouth daily. Active cholecalciferol, Vitamin D3, 125 mcg (5000 unit) capsule Take by mouth daily. Active DIABETIC SUPPLIES, MISCELLAN. [facility] Syringe 3cc 02/17/2017 Active blood glucose meter Glucose monitor,Sig: test once a day once a day 07/19/2018 Active LANCETS & BLOOD GLUCOSE STRIPS [facility] test strips and lancets for glucose monitor , Sig: test once a day test once a day 09/20/2018 Active nitroGLYCERIN (NITROSTAT) 0.[address] 1 Tablet under the tongue as needed. 07/07/2014 Active blood glucose test strips Brand: One Touch Ultra, test blood sugar once daily 100 Each 3 02/04/2021 Active clopidogreL (PLAVIX) 75 mg tabletIndications: Dyslipidemia Take 1 Tablet by mouth daily. 90 Tablet 3 10/16/2022 Active niacin (NICOTINIC ACID) 100 mg tablet Take 1 Tablet by mouth daily. Active ascorbic acid, vitamin C, (VITAMIN C) 500 mg tablet Take 2 Tablets by mouth daily. Active vitamin E mixed/tocotrienol (VITAMIN E COMPLEX ORAL) Take 400 mg by mouth daily. Active Magnesium 250 mg tablet Take 500 mg by mouth daily. Active POTASSIUM ACETATE MISC 90 mg by misc (non-drug; combo route) route daily. Active BENFOTIAMINE ORAL Take by mouth daily. Active lamoTRIgine (LAMICTAL) 25 mg tablet One po bid 180 Tablet 5 02/22/2023 Active Additional Information Patient taking differently: 25 mg oral 2 TIMES DAILY, Three pills po bid, for anxiety, Reported on 02/12/2024 diazePAM (VALIUM) 5 mg tablet Take 1-2 tabs 1 hr prior to flights and before procedure 10 Tablet 03/12/2023 Active testosterone cypionate (DEPO-TESTOSTERONE ) 200 mg/mL injection Inject 1.5 mL into the muscle once a week. 2 vials of 10mL please Daily Max: 300 mg 20 mL 1 05/21/2023 Active buPROPion (WELLBUTRIN SR) 150 mg SR tablet Take 1 tablet by mouth once daily 90 Tablet 09/11/2023 Active famotidine (PEPCID) 40 mg tablet Take 1 Tablet by mouth daily. Active VITAMIN B COMPLEX ORAL Take by mouth daily. Active propRANolol (INDERAL) 10 mg tablet Take 1 Tablet by mouth 2 times daily. 20mg in AM, 10mg in PM Active famotidine (PEPCID) 20 mg tablet Take 1 Tablet by mouth 2 times daily. 05/31/2024 Active UBIQUINONE ORAL Take 100 mg by mouth daily. Active cephalexin (KEFLEX) 500 mg capsuleIndications :Puncture wound Take 1 Capsule by mouth 3 times daily. 15 Capsule 06/03/2024 Active Active Problems Patient Care Coordination No te Formatting of this note migh t be different from the original. WORKED WQ 192 UNABLE TO CREATE LIBORIO, BCBS IS INACTIVE PER RTE 04/19/2020 KAY Patient has given permission for [facility] to verbally discuss the following information with Sunshine Bowen who has the following relationship to the patient: Spouse and daughter: Scheduling/Appt/Billing/Payment Information (does not include clinical information unless specifically indicated with separate option) Medical Information including symptoms, diagnosis, medications, test results and treatment plan (does not include Mental Health unless specifically indicated with separate option) Mental Health (Behavioral,Psychiatric,Chemical Dependency) health information, including my symptoms, diagnosis, medications and treatment plan Permission remains in effect until the patient elects to revoke it. Problem Noted Date Diagnosed Date Chronic pain of left knee 01/11/2024 Testosterone deficiency 04/20/2023 Last Assessment & Plan: Hesitant to continue intermediate testosterone due to risks including hx of CAD, stroke, prostate cancer s/p prostatectomy. Referral to urology placed. 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 Unclear etiology. Requesting records from [facility] Neuro TIA (transient ischemic attack) 10/12/2019 Reflux esophagitis 10/12/2019 Primary osteoarthritis of left knee 10/12/2019 Primary osteoarthritis of left foot 10/12/2019 Post-traumatic osteoarthritis of right foot 10/02 Pain in unspecified joint 10/12/2019 Osteoarthritis, generalized 10/12/2019 Morbid obesity due to excess calories 10/12/2019 Medical marijuana use 10/12/2019 Cannabis abuse 10/12/2019 Major depressive disorder with single episode Lung nodule < 6cm on CT 10/12/2019 Internal derangement of left knee 10/12/2019 Hypogonadism, testicular 10/12/2019 Hypoglycemia 10/12/2019 Hypercholesterolemia 10/12/2019 Overview: Overview: On statins Changed to lipitor given NSTEMI on pravachol with LDL 66 Hemorrhoids 10/12/2019 Gastroesophageal reflux disease 10/12/2019 Overview: Overview: Changed to protonix given newly added plavix dosing Familial tremor 10/12/2019 Essential hypertension 10/12/2019 Erectile dysfunction 10/12/2019 Dyslipidemia 10/12/2019 Depression 10/12/2019 Overview: Overview: On testosterone Coronary artery disease invo [place]ving [place] coronary artery of [place] heart without angina pectoris 10/12/2019 Last Assessment & Plan: Discussed rationale for PPI use on plavix given his GI bleed history. Recommend continued protonix therapy pending further research into H2 therapy. 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 Near syncope 08/23/2018 Cerebrovascular accident (CVA) due to embolism ( [facility]) 08/10/2018 Overview: Overview: History of left MCA infarct, 2018 S/P angioplasty with stent 04/20/2017 Overview: Overview: Non-STEMI 2010, status post JANET to OM1, RPDA, D1 Rheumatoid arthritis ([facility]) 03/31/2017 Autonomic neuropathy 03/31/2017 Overview: Overview: Probable small fiber neuropathy based on nerve conduction study. Negative fat pad biopsy 2005. Stocking-glove distribution of symptoms. History of prostate cancer 03/31/2017 Overview: Overview: S/p radical prostatectomy Dec 2004 History of syncope 03/31/2017 Overview: Overview: 2005 ECG 11/06 demonstrated a left anterior fascicular block, a QRS duration of 118 msec, and otherwise normal intervals. Reproduction of symptoms on tilt testing 09/07, without changes in blood pressure or heart rate. Symptoms are usually near-syncope, resolve in 30 seconds, and occur more often standing than sitting. History of symptomatic APBs; symptomatic junctional rhythm in the 90s during tilt test, competing with sinus rhythm at the same rate. Headache 03/31/2017 Chronic back pain 03/31/2017 Asthma 03/31/2017 Arteriosclerotic cardiovascular disease 11/12/19 11 Overview: Overview: ALY, NYHA Class III, progressive March 2017 Cardiac catheterization 04/01/17: pending Stress echo 02/26/17: REst- LVEF 65%, no RWMA, nl RV, Stress- PHR-130, 6:00 min, 5.5 METS, no angina, no EKG changes, DTS (-)5 Echocardiography 01/29/17: LVEF 65%, no RWMA, nl RV, NSTEMI Nov 2010 Cardiac catheteriation 11/12/10: Ectatin prox LAD, 60% ost D1, 85% prox RCA, 50% os RPDA S/p PCI 11/12/10: 85% prox RCA, BMS noted, also proximal segment of the LAD was ectatic and ulcerated Echo 11/13/10: EF 70%, no wall motion abnormalities Abnormal pre-operative ETT Dec 2004 MIBI ETT Dec 2004: 10 METS, fatigue, no angina, moderate ant-apical ischemia, LVEF 51% Cardiac catheterization 12/16/04: LVEDP of 10 mm, LVEF 70% nl RWMA,, mild diffuse disease in the LAD with a 30% D1 stenosis. Atypical chest discomfort 2004. Dyslipidemia (increased triglycerides, low HDL). Echocardiography 05/23/09: LVEF 70% no RWMA, nl RV, borderline RVH, +1 MR, moderate asc aortic dilation Acute blood loss anemia Encounters Date Type Department Care Team Description 07/19/2024 Orders Only [facility] Nuclear Medicine [address] [place] [id number] Gaurav Gates 07/12/2024 Telephone [place] [phone] Clemente Gerardo MD Anticoagulation 07/12/[address] [address] Clemente Gerardo MD Surgery Scheduling 07/08/2024 15:00 EDT Office Visit [address] [address] Clemente Gerardo MD Impotence of organic origin (Primary Dx) 07/08/2024 Prep for Procedure [facility] Urology - [facility] [address] [place] [address] Clemente Gerardo MD Erectile dysfunction after radical prostatectomy (Primary Dx) 06/07/2024 13:52 EDT - 06/07/2024 15:39 EDT Emergency [facility] Emergency Department [address] [place] [address] Puncture wound of left foot, initial encounter (Primary Dx) Discharge Disposition: Home or Self Care 06/07/2024 Travel 06/06/2024 14:30 EDT Office Visit [facility] Ophthalmology [facility] [address] [place] [address] Spike Puentes MD 06/03/2024 12:15 EDT [facility] [address] [facility] [place] [address] Alejandra Bullock, BENITO Puncture wound (Primary Dx) 04/18/2024 13:45 EDT [facility] [address] [facility] [place] [address] Norbert Gambino NP Tick bite of left forearm, initial encounter (Primary Dx); Polyarthralgia; Body aches from Last 3 Months Immunizations Name Administration Dates Next Due Covid-19 mRNA Vaccine (PFIZE R COVID-19) PF 0.3 ml IM (12 yrs+) 09/17/2021,01/02/2021 Influenza (whole) 08/23/2018,08/02/2010 Influenza Vaccine =>3yo Split IM 014,10/04/2013,08/27/2012,08/27,07/29/2010,10/30/2009 Influenza Vaccine High Dose (FLUZONE HIGH DOSE) PF 0.7 ml IM (65 yrs+) 08/23/2018,07/13/2017 Influenza Vaccine Quad (AFLU JUVENAL) PF 0.5 ml IM (3 yrs+) 10/07/2016 Influenza Vaccine Quad High Dose (FLUZONE HIGH DOSE) PF 0.7 ml IM (65 yrs+) 09/30/2021 Influenza Vaccine Recomb Fabian d RIV4 (FLUBLOK) PRSRV/ABX Free 0.5 ml IM (18 yrs+) 08/16/2019 Pneumococcal Conjugate Vacci ne 13-Valent (PCV13) (PREVNAR-13) 0.5 mL IM (6 wks+) 10/07/2016 Pneumococcal Conjugate Vacci ne 20-Valent (PCV20) (PREVNAR-20) 0.5 mL IM (6 wks+) 07/04/2022 Pneumococcal Polysaccharide (PPSV23) Vaccine (PNEUMOVAX-23) =>2YO SQ/IM 11/15/2020,08/01/2020(Deferred: To Be Administered in the Future),10/04/2013 Shingrix (Zoster Vaccine, Re combinant) IM 03/03/2023,12/17/2022 Tdap Vaccine =>7YO IM 06/07/2024,06/20/2020,07/03 Zostavax (Zoster Vaccine, Live) SQ 05/27/2012 Surgical History Surgery Date Site/Laterality Comments RADICAL PROSTATECTOMY 12/31/2004 - 01/30/2005 Laparoscopic radical prostatectomy, umbilical hernia repair - [place]. Encin[place] [facility] [place] 12/31/2004 - 01/30/2005 WNL - Dr. Turcios f/u 10 yrs CARDIAC CATHERIZATION 12/03/2004 - 12/30/2004 normal - [place]. Evans [facility] [place]GERY nasal / sinus surgery FOOT SURGERY Right tendon surgery CORONARY ANGIOPLASTY WITH STENT PLACEMENT 11/02/2010 - 11/01/2011 NSTEMI s/p JANET ABDOMEN SURGERY prostatectomy KNEE ARTHROSCOPY Left Medical History Medical History Date Comments Hypertension 01/30/23- well co ntrolled per pt Hyperlipidemia Amblyopia per pt-left eye CA (myocardial infarction) ([facility]) 2007 x2. 2008 & 2011. JANET x4 Cerebral artery occlusion wi th cerebral infarction ([facility]) 2018 01/30/23-Acute ischemic left MCA stroke. no residual deficits History of general anesthesia Claustrophobia 01/30/23- in clos ed room Poor dentition 01/30/23- reports having 2 broken teeth Activity, other involving cardiorespiratory exercise 01/30/23- able to climb 2 FO S w/o SOB Exercise involving housework Chest pain 01/30/23- current ly has zio patch for palpitations, CP, and SOB Arrhythmia 01/30/23- current ly has zio patch for palpitations, CP, and SOB Shortness of breath 01/30/23- cur rently has zio patch for palpitations, CP, and SOB GERD (gastroesophageal reflux disease) 01/30/23- controlled w/ Protonix, sleeps on side for comfort Rash 01/30/23- eczema on face Seizures ([facility]) 2019 01/30/23- well controlled on Lamictal, thought to be due to high dose Wellbutrin. None since 2018 Abnormal stress test 04/20/2017 s/p JANET Cancer ([facility]) prostates and s kin cancer Colon polyp Anomaly, cardiac cardiac stents Anemia 02/10/2023 Does not exercise Exercise involving walking Exercise involving jogging CAD (coronary artery disease) Heart murmur Post PTCA Community acquired pneumonia Clotting disorder ([facility]) plav ix/aspirin Anxiety PTSD (post-traumatic stress disorder) Peripheral neuropathy CIPD Arthritis osteo Skin cancer Immunization not carried out unk nown Family History Medical History Relation Comments Heart Disease Father AAA Heart Disease Mother CHF Breast Cancer Neg Hx Colon Cancer Neg Hx Colon Polyps Neg Hx Endometrial Cancer Neg Hx Esophageal Cancer Neg Hx Glaucoma Neg Hx Macular Degeneration Neg Hx Ovarian Cancer Neg Hx Pancreatic Cancer Neg Hx Rectal Cancer Neg Hx Retinal Detachment Neg Hx Relation Status Comments Father Mother Social History Tobacco Use Types Packs/Day Years Used Date Smoking Tobacco: Former Cigarettes 1 15 Smokeless Tobacco: Never Tobacco Cessation:Counseling Given: Not Answered Alcohol Use Standard Drinks/Week Comments Yes 7 (1 standard drink = 0.6 oz pur e alcohol) Interpersonal Safety Answer Date Record ed Physically Hurt Never 06/03/2020 Verbally Threaten Not on file 06/03/2020 Sex and Gender Information Value Date Recorded Sex Assigned at Male 12/26/2021 11:38 EST Gender Identity Male 06/20/2020 15:19 EDT Sexual Orientation Straight 12/26/2021 11 :37 EST Obstetrics History Last Filed Vital Signs Vital Sign Reading [...] Body Mass Index 34.17 02/16/2024 1130 EDT Plan of Treatment Upcoming Encounters Date Type Department Care Team (Late st Contact Info) Description 10/04/2024 9:50 EST Appointment [facility] Pre-Surgical Testing [address] [place] [address] [phone] 10/14/2024 11:00 EST Hospital Encounter [facility] [place] [address] [place] [phone] Clemente Gerardo MD [address] [place] [address] [phone] 10/14/2024 11:00 EST - 10/14/2024 14:35 EST Surgery [facility] [place] [address] [place] [address] [id number] Clemente Gerardo MD [address] [place] [address] [phone] Implantation of inflatable penile prosthesis [56852 (CPT??)] 10/17/2024 9:00 EST Telemedicine [facility] [phone] Nurse Call, [facility] 10/31/2024 15:00 EST Post-op Visit [address] [phone] Clemente Gerardo MD [address] [place] [address] [phone] 12/06/2024 10:15 EST Office Visit [facility] Ophthalmology [facility] [address] [place] [address] Spike Puentes MD [address] [place] [phone] Scheduled Procedures Name Priority Associated Diagnoses Date/Ti me INSERTION, PENILE PROSTHESIS, INFLATABLE, 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 10/14/2024 11:00 EST Health Maintenance Due Date Last Done Comments Asthma Action Plan 1950 Lung Function Test (Spirometry) 1950 Social Determinants Of Healt h (SDOH) 1951 Depression Screening 1963 Advance Directive 1969 Preventive Care Visit 1969 Cologuard (Colon Cancer Screening) 1996 FIT Test (Colon Cancer Screening) 1996 Sigmoidoscopy (Colon Cancer Screening) 1996 RSV Immunization ( o r 60+ Years) (1 - 1-dose 60+ series) 2011 Abdominal Aortic Aneurysm (A AA Screen) 2016 Fall Risk Screening 04/18/2021 04/18/2020, 03/07/2019, 07/25/2016 Colonoscopy (Colon Cancer Screening) 02/15/2024 02/14/2023, 02/02/2023, 07/03/2016 Colorectal Cancer Screening 02/15/2024 COVID-19 Vaccine (3 2022-2 4 season) 2024 09/17/2021, 01/02/2021 Influenza Immunization (Adul t) (#1) 2024 09/30/2021, 08/16/2019, 08/23/2018, Additional history exists Lipid Profile Screening (Cholesterol) 05/01/2027 05/01/2022, 11/15/2020, 06/24/2017 Tetanus (Adult) Immunization 06/07/203404/2024, 06/20/2020, 07/17/2011 Hepatitis C Screen Completed 02/05/2018 Pneumococcal Immunization (65+) Completed 07/04/2022, 11/15/2020, 10/07/2016, Additional history exists Shingles Immunization Completed 03/03/2023 , 12/17/2022, 05/27/2012 Pertussis (Adult) Immunization Completed 0 06/07/2024, 06/20/2020, 07/17/2011 Medical Devices Implanted Type Area Animal Nursery Worker Device Identifier Shelf Expiration Date Model / Serial / Lot Dental Dental Mouth Stent Stent N/A: Heart Procedures Procedure Name Priority Date/Time Associated Diagnosis Comments XR FOOT LEFT 3 OR MORE VIEWS STAT 06/07/2024 15:26 EDT OCT, OPTIC NERVE - OU - BOTH EYES Routine 06/06/2024 15:47 EDT Glaucoma suspect, bilateral COLONOSCOPY PROCEDURE Routine 02/14/2023 10:06 EDT LIPID PROFILE (INCLUDES CHOLESTEROL, TRIGLYCERIDES, HDL, LDL) Routine 05/01/2022 14:07 EDT ASCVD (arteriosclerotic cardiovascular disease) HEPATITIS C AB W REFLEX TO HCV RNA BY PCR Routine 02/05/2018 12:19 EDT from Last 3 Months or Most Recently Relevant to Health Maintenance Results * XR FOOT LEFT 3 OR MORE VIEWS (06/07/2024 15:26 EDT) Anatomical Region Laterality Modality Lower Extremities Left Computed Radio graphy 06/07/2024 15:3 7 EDT Impressions 06/07/2024 15:37 EDT 1. No metallic foreign body detected. 2. Polyarticular osteoarthrosis. [id number] Narrative 06/07/2024 15:37 EDT XR FOOT LEFT [...] foreign body is detected.. Resulting Agency Comment [id number] Procedure Note Juaquin Mistry MD - 06/07/2024 [...] metallic foreign body detected. 2. Polyarticular osteoarthrosis. [id number] Jamle Mann PA-C [facility] NG ORDERABLES * OCT, OPTIC NERVE - OU - BOTH EYES (06/06/2024 15:47 EDT) Narrative [facility] - 06/06/2024 15:47 EDT Indication: glaucoma suspect OCT Optic Nerve Head and rNFL: Right: signal strength: 7/10 Avg thickness: 93 no thinning Left: signal strength: 6/10 Avg thickness: 58 thinning superior and inferior, borderline temporal Spike Puentes MD OPHTH TOMOGRAPHY [facility] * COLONOSCOPY PROCEDURE (02/14/2023 10:06 EDT) Anatomical Region Laterality Modality Endoscopy Narrative 02/14/2023 10:06 EDT Procedure Performed Colonoscopy Indications for Exam Post polypectomy bleeding. Procedure Technique A physical exam was performed. Informed consent was obtained from the patient after explaining all the risks (perforation, bleeding, missed findings, injury to nearby organs, infection and adverse effects to the medicine), benefits and alternatives to the procedure which the patient appeared to understand and so stated. ??The patient was connected to the monitoring devices and placed in the left lateral position. Continuous oxygen was provided with a nasal cannula and IV medicine administered thru an indwelling cannula. After adequate sedation was achieved, a digital exam was performed and the colonoscope introduced into the rectum and advanced under direct visualization to the terminal ileum. The terminal ileum was identified by visual landmarks. The endoscope was subsequently removed slowly while carefully examining the color, texture, anatomy, and integrity of the mucosa on withdrawal. Retroflexion was performed in the rectum: Yes. The patient was subsequently transferred to the recovery area in satisfactory condition. Rectal Exam:Normal Estimated Blood Loss: None Complications None Medications MAC Anesthesia See Anesthesia Record [place] Bowel Prep Right Colon: 2 ? Transverse Colon: 2 ? Left Colon: 2 ?Total: 6 Findings Colon: There was old blood throughout the colon, old clots and dark red blood, no active, red blood was seen Cecum: There was a clean-based polypectomy site with a clip in place, non- bleeding. There was a pigmented spot within the ulcer base, a single clip was placed over the spot. Sigmoid colon: Diverticulosis was present Diagnosis Patient may have bled from polyp site versus diverticular bleed Post-polypectomy site, non-bleeding, clipped Sigmoid diverticulosis Recommendations Hold antiplatelets for 24 hours Continue to monitor for further bleeding Clear liquid diet tonight, advance as tolerated tomorrow If stable tomorrow, can be discharged from GI standpoint, colonoscopy as outlined by Dr. Corcoran The??procedure??was??performed??by??Dr. Norbert Stanford M.D. in the presence of Dr. Hattie Stein. The attending physician was in the room for the entire procedure. This electronic signature authenticates all electronic and/or handwritten documentation, including orders, generated by the signer during the episode of care contained in this record. 02/14/2023 10:06:38 AM By Hattie Stein MD Hattie Stein MD GI PROCEDURE ORDERA BLES * (ABNORMAL) LIPID PROFILE (INCLUDES CHOLESTEROL, TRIGLYCERIDES, HDL, LDL) (05/01/2022 14:07 EDT) Cholesterol 215(H) <200 mg/dL 05/01/2022 15:46 EDT [facility] Comment:Note that therapeuti c goals will differ between patients based on cardiac risk factors and current medical therapy. HDL 40 >=40 mg/dL 05/01/2022 15:46 EDT [facility] Comment:Note that therapeuti c goals will differ between patients based on cardiac risk factors and current medical therapy. LDL, Calculated 139 <160 mg/dL 15:46 EDT [facility] Comment:Note that therapeuti c goals will differ between patients based on cardiac risk factors and current medical therapy. Triglyceride 182(H) <=150 mg/dL 05/01/2022 15:46 EDT [facility] Comment:Note that therapeuti c goals will differ between patients based on cardiac risk factors and current medical therapy. Chol/HDL Ratio 5.4 See Note 05/01/2022 15:46 EDT [facility] Comment: NOTE: Desirable Ratio = <4.1 Patient At Risk Ratio = >5.0(Males) ?>6.0(Females) Non HDL Cholesterol 175(H) <160 mg/dL 05/01/2022 15:46 EDT [facility] Comment:Note that therapeuti c goals will differ between patients based on cardiac risk factors and current medical therapy. Blood VENOUS BLOOD / Unknown Venipuncture / Unknown 05/01/2022 14:07 EDT 05/01/2022 15:08 EDT Vel Santos MD CHEMISTRY & BLOOD GA S ORDERABLES Performing Organization Address [facility] Co de Phone Number [facility] [address] [place] [address] * HEPATITIS C AB W REFLEX TO HCV RNA BY PCR (02/05/2018 12:19 EDT) HEPATITIS C AB W/[place] [facility] Negative 02/05/2018 17:44 EDT [facility] Comment:Expected Values: Neg ative. 02/05/2018 12:1 9 EDT 02/05/2018 16:44 EDT Narrative [facility] - 02/05/2018 17:44 EDT AOT: 02/05/18 1644: HEP C AB WITH REFLEX Vel Santos MD CHEMISTRY & BLOOD GA S ORDERABLES Performing Organization Address City/[facility]/ZIP Co de Phone Number [facility] from Last 3 Months or Most Recently Relevant to Health Maintenance Advance Directives For more information, please contact: [phone] * Full Code (Latest Code Status on File) Date Activated Date Inactivated Comments 02/16/2024 11:21 02/16/2024 19:11 Question Answer Comments When the patient has NO PULSE: Full Code / CPR Who Made the Decision? Patient * Full Code Date Activated Date Inactivated Comments 02/10/2023 16:56 02/12/2023 15:34 Question Answer Comments When the patient has NO PULSE: Full Code / CPR Who Made the Decision? Patient Care Teams Ingredient Mixer Relationship Specialty Start Date End Date Marco Aleman MD [address] [address] PCP - General Emergency Medicine 12/07/23
--- OUTSIDE RECORDS SUMMARY | 2024-07-19 22:10 | XMS_ITS | Encounter Summary ---
Author Organization [facility] Address [address] [place] [address] Care Team Providers Care Motion Picture Actor Name Role Phone Marco Aleman MD Primary Care Provider [phone] Reason for Visit * Reason Onset Date Comments Surgery Scheduling 07/12/2024 Encounter Details Date Type Department Care Team (Late st Contact Info) Description 07/12/2024 Telephone [facility] [place] Urology - [address] [phone] Clemente Gerardo MD [address] [place] [address], Level 5 [place] [phone] Surgery Scheduling Social History Tobacco Use Types Packs/Day Years [...] No 07/08/2024 documented as of this encounter Miscellaneous Notes * Telephone Encounter - Alexandria Walsh - 07/12/2024 0923 EDT Spoke with Roland Vega to confirm his surgery on 10/14/[address] Gerardo. Patient will contact his PCP to schedule a pre-op history and physical within the 30 days prior. A PAT call is scheduled on 10/04/24 between 9:50 and 10:50. documented in this encounter Plan of Treatment Upcoming Encounters Date Type Department Care Team (Late st Contact Info) Description 10/04/2024 9:50 EST Appointment [facility] Pre-Surgical Testing [address] [place] [address] [phone] 10/14/2024 11:00 EST Hospital Encounter [facility] OR [address] [place] [address] [phone] Clemente Gerardo MD [address] [place] [address], Level [address] [place] [phone] 10/14/2024 11:00 EST - 10/14/2024 14:35 EST Surgery [facility] OR [address] [place] [address] [phone] Clemente Gerardo MD 111 [facility] 5 [place] [phone] Implantation of inflatable penile prosthesis [60381 (CPT??)] 10/17/2024 9:00 EST Telemedicine [facility] [place] [facility] [address] [phone] Nurse Call, [facility] Urology 10/31/2024 15:00 EST Post-op Visit [address] [phone] Clemente Gerardo MD [address] [place] [phone] 12/06/2024 10:15 EST [facility] [address] [place], [place] [phone] Spike Puentes MD [address] [place] [phone] Scheduled Procedures Name Priority Associated Diagnoses Date/Ti me INSERTION, PENILE PROSTHESIS, INFLATABLE, 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 10/14/2024 11:00 EST documented as of this encounter Visit Diagnoses Not on filedocumented in this encounter Care Teams Motion Picture Actor Relationship Specialty Start Date End Date Marco Aleman MD 26 [facility] [address] [place] [address] PCP - General Emergency Medicine 12/07/23 documented as of this encounter
--- OUTSIDE RECORDS SUMMARY | 2024-07-19 22:10 | XMS_ITS | Encounter Summary ---
Author Organization [facility] Address [address] [place] [address] Care Team Providers Care Dining Car Steward Name Role Phone Marco Aleman MD Primary Care Provider Reason for Visit * Reason Comments Follow-up (erectile dysfunctio n) * Referral (Routine) - Authorization Not Required Specialty Diagnoses / Procedures [facility] Referred To Contact Urology Diagnoses ED (erectile dysfunction) Clemente Gerardo MD [address] [place] [phone] Referral ID Status Reason Start Date Expiration Date Visits Requested Visits Authorized [id number] Authorization Not Required 1 1 Encounter Details Date Type Department Care Team (Late st Contact Info) Description 07/08/2024 15:00 EDT Office Visit [facility] [place] [facility] Urology - [address] [phone] Clemente Gerardo MD [address] [place] [phone] Impotence of organic origin (Primary Dx) Social History Tobacco Use Types [...] EST Appointment [facility] Pre-Surgical Testing [address] [place] [address] [phone] 10/14/2024 11:00 EST Hospital Encounter [facility] OR [address] [place], [place] 384[address] Clemente Gerardo MD [address] [place] [address], Level 5 [place] [phone] 10/14/2024 11:00 EST - 10/14/2024 14:35 EST Surgery [facility] OR [address] [place] [address] [phone] Clemente Gerardo MD 111 [facility] 5 [place] [phone] Implantation of inflatable penile prosthesis [23708 (CPT??)] 10/17/2024 9:00 EST Telemedicine [facility] [address] [phone] Nurse Call, [facility] Urology 10/31/2024 15:00 EST Post-op Visit [address] [phone] [facility] [address] [place] [phone] 12/06/2024 10:15 EST Office Visit [facility] [address] [place], [place] 624871 Spike Puentes MD [address] [place] [phone] Scheduled Procedures Name Priority Associated Diagnoses Date/Ti me INSERTION, PENILE PROSTHESIS, INFLATABLE, 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 10/14/2024 11:00 EST documented as of this encounter Visit Diagnoses Diagnosis Impotence of organic origin- Primary Erectile dysfunction after radical prostatectomy documented in this encounter Care Teams Dining Car Steward Relationship Specialty Start Date End Date Marco Aleman MD 26 [facility] [address] [place] [address] PCP - General Emergency Medicine 12/07/23 documented as of this encounter
--- OUTSIDE RECORDS SUMMARY | 2024-07-19 22:10 | XMS_ITS | Referral Summary ---
Author Organization [facility] Address [address] [place] [address] Care Team Providers Care Grooming Salon Manager Name Role Phone Marco Aleman MD Primary Care Provider [phone] Encounters Date Type Department Care Team Description 07/19/2024 Orders Only [facility] Nuclear Medicine [address] [place] [phone] Gaurav Gates 07/12/2024 Telephone [place] [phone] Clemente Gerardo MD Anticoagulation 07/12/[address] [address] Clemente Gerardo MD Surgery Scheduling 07/08/2024 Prep for Procedure [address] [phone] Clemente Gerardo MD Erectile dysfunction after radical prostatectomy (Primary Dx) 07/08/2024 15:00 EDT Office Visit [address] [phone] Clemente Gerardo MD Impotence of organic origin (Primary Dx) 06/07/2024 Travel 06/07/2024 13:52 EDT - 06/07/2024 15:39 EDT Emergency [facility] Emergency Department [address] [place] [address] Puncture wound of left foot, initial encounter (Primary Dx) Discharge Disposition: Home or Self Care 06/06/2024 14:[address] [facility] Ophthalmology [facility] [address] [place] [address] Spike Puentes MD 06/03/2024 12:15 EDT [facility] [address] [place] [address] Alejandra Bullock PA-C Puncture wound (Primary Dx) 04/18/2024 13:45 EDT [facility] [address] [place] [address] Norbert Gambino, BALA Tick bite of left forearm, initial encounter (Primary Dx); Polyarthralgia; Body aches from Last 3 Months Allergies Active Allergy Reactions Criticality Noted Date [...] Dispensed Refills Start Date End Date Status Dydyj-5-LYC-EPA-Fi sh Oil 1,000 (120-180) mg capsule Take 1,000 mg by mouth 2 times daily. Active aspirin 325 mg tablet Take 1 Tablet by mouth daily. Active cholecalciferol, Vitamin D3, 125 mcg (5000 unit) capsule Take by mouth daily. Active DIABETIC SUPPLIES, MISCELLAN. MISC Syringe 3cc 02/17/2017 Active blood glucose meter Glucose monitor,Sig: test once a day once a day 07/19/2018 Active LANCETS & BLOOD GLUCOSE STRIPS MIS test [...] 04/19/2020 KAY Patient has given permission for [facility] to verbally discuss the following information with [...] Last Assessment & Plan: Hesitant to continue nursing home testosterone due to risks including hx of CAD, stroke, prostate cancer s/p prostatectomy. Referral to urology placed. 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 Unclear etiology. Requesting records from [facility] Neuro TIA (transient ischemic attack) 10/12/2019 Reflux [...] On testosterone Coronary artery disease invo lving [place] coronary artery of [place] heart without angina pectoris 10/12/2019 Last Assessment & Plan: Discussed rationale for PPI use on plavix given his GI bleed history. Recommend continued protonix therapy pending further research into H2 therapy. 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 Near syncope 08/23/2018 Cerebrovascular accident (CVA) due to embolism ( [facility]) 08/10/2018 Overview: Overview: History of left MCA infarct, 2018 S/P angioplasty with stent 04/20/2017 Overview: Overview: Non-STEMI 2010, status post JANET to OM1, RPDA, D1 Rheumatoid arthritis ([facility]) 03/31/2017 Autonomic neuropathy 03/31/2017 Overview: Overview: Probable [...] asc aortic dilation Acute blood loss anemia Immunizations Name Administration Dates Next Due Covid-19 [...] 06/07/2024,06/20/2020,07/03 Zostavax (Zoster Vaccine, Live) SQ 05/27/2012 Social History Tobacco Use Types Packs/Day Years [...] Sexual Orientation Straight 12/26/2021 11 :37 EST Last Filed Vital Signs Vital Sign Reading [...] Body Mass Index 34.17 02/16/2024 1130 EDT Functional Status Functional Status Response Date of [...] concentrating, remembering, or making decisions? No 07/08/2024 Plan of Treatment Upcoming Encounters Date Type Department Care Team (Late st Contact Info) Description 10/04/2024 9:50 EST Appointment [facility] Pre-Surgical Testing [address] [place] [phone] 10/14/2024 11:00 EST Hospital Encounter [facility] OR [address] [place] [address] [phone] Clemente Gerardo MD [address] [place] [phone] 10/14/2024 11:00 EST - 10/14/2024 14:35 EST Surgery [facility] OR [address] [place] [address] [phone] Clemente Gerardo MD [address] [place] [phone] Implantation of inflatable penile prosthesis [98115 (CPT??)] 10/17/2024 9:[address] [facility] Urology - [address] [phone] Nurse Call, [facility] Urology 10/31/2024 15:00 EST Post-op Visit [facility] Urology - [facility] [address] [place], [place] [phone] Clemente Gerardo MD 111 [facility], Level 5 [place] [phone] 12/06/2024 10:[address] [facility] Ophthalmology [facility] [address] [place], [place] 479381 Spike Puentes MD 58 [place] [phone] Scheduled Procedures Name Priority Associated Diagnoses Date/Ti me INSERTION, PENILE PROSTHESIS, INFLATABLE, 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 10/14/2024 11:00 EST Medical Devices Implanted Type Area Exhibits Curator Device Identifier Shelf Expiration Date Model / [...] metallic foreign body detected. 2. Polyarticular osteoarthrosis. [id number] Narrative 06/07/2024 15:37 EDT XR FOOT LEFT [...] foreign body is detected.. Resulting Agency Comment [id number] Procedure Note Juaquin Mistry MD - 06/07/2024 [...] metallic foreign body detected. 2. Polyarticular osteoarthrosis. [id number] Jamel Mann PA-C [facility]I NG ORDERABLES * OCT, OPTIC NERVE - OU - BOTH EYES (06/06/2024 15:47 EDT) Narrative [facility] OPHTHAL[facility]OLOG[facility] - 06/06/2024 15:47 EDT Indication: glaucoma suspect OCT Optic Nerve Head and rNFL: Right: signal strength: 7/10 Avg thickness: 93 no thinning Left: signal strength: 6/10 Avg thickness: 58 thinning superior and inferior, borderline temporal Spike Puentes MD OPHTH TOMOGRAPHY [facility] OPHTHALMOLOGY * COLONOSCOPY PROCEDURE (02/14/2023 10:06 [...] None Medications MAC Anesthesia See Anesthesia Record [place] Bowel Prep Right Colon: 2 ? Transverse [...] Cholesterol 215(H) <200 mg/dL 05/01/2022 15:46 EDT [facility] Comment:Note that therapeuti c goals will differ between patients based on cardiac risk factors and current medical therapy. HDL 40 >=40 mg/dL 05/01/2022 15:46 EDT [facility] Comment:Note that therapeuti c goals will differ between patients based on cardiac risk factors and current medical therapy. LDL, Calculated 139 <160 mg/dL 15:46 [facility] Comment:Note that therapeuti c goals will differ between patients based on cardiac risk factors and current medical therapy. Triglyceride 182(H) <=150 mg/dL 05/01/2022 15:46 EDT [facility] Comment:Note that therapeuti c goals will differ between patients based on cardiac risk factors and current medical therapy. Chol/HDL Ratio 5.4 See Note 05/01/2022 15:46 T [facility] Comment: NOTE: Desirable Ratio = <4.1 Patient At Risk Ratio = >5.0(Males) ?>6.0(Females) Non HDL Cholesterol 175(H) <160 mg/dL 05/01/2022 15:46 EDT [facility] Comment:Note that therapeuti c goals will differ between patients based on cardiac risk factors and current medical therapy. Blood VENOUS BLOOD / Unknown Venipuncture / Unknown 05/01/2022 14:07 EDT 05/01/2022 15:08 EDT Vel Santos MD CHEMISTRY & BLOOD GA S ORDERABLES [facility] [address] [place] [address] * HEPATITIS C AB W REFLEX TO HCV RNA BY PCR (02/05/2018 12:19 EDT) HEPATITIS C AB W/REFLEX - [facility] Negative 02/05/2018 17:44 EDT [facility] Comment:Expected Values: Neg ative. 02/05/2018 12:1 9 EDT 02/05/2018 16:44 EDT Narrative [facility] - 02/05/2018 17:44 EDT AOT: 02/05/18 1644: HEP C AB WITH REFLEX Vel Santos MD CHEMISTRY & BLOOD GA S ORDERABLES [facility] from Last 3 Months or Most Recently Relevant to Health Maintenance Advance Directives For more information, please contact: [phone] * Full Code (Latest Code Status on [...] Who Made the Decision? Patient Care Teams Grooming Salon Manager Relationship Specialty Start Date End Date Marco Aleman MD 26 [facility] [address] [place] [address] PCP - General Emergency Medicine 12/07/23
--- OUTSIDE RECORDS SUMMARY | 2024-07-19 22:10 | XMS_ITS | Encounter Summary ---
Author Organization [facility] Address [address] [place] [address] Care Team Providers Care Manager Asset Management Name Role Phone Marco Aleman MD Primary Care Provider [phone] Encounter Details Date Type Department Care Team (Latest Contact Info) Description 03/09/2024 Documentation Visit [facility] Therapy [address] [place] [address] Ping Gee, PT [address] [facility] [address] [place] [phone] Right shoulder pain, unspecified chronicity (Primary Dx) Social History Tobacco Use Types [...] Progress Notes * Ping Gee, PT - 03/09/2024 1309 EDT [facility] Outpatient Rehabilitation Services [phone] Physical Therapy Discharge Not Seen Recently Referring Clinician: Marco Aleman MD Therapy Diagnosis: Right shoulder pain, mild loss of range of motion, weakness causing impaired activities of daily living due to right shoulder injury from lifting Rehabilitation Precautions/Restrictions: None pertaining Reporting Period: 01/12/24 - 01/26/24 Physical Therapy Program to Date: In summary, the program has included: therapeutic exercise, home program Goal Review: Short-Term Goals Timeframe: 02/12/2024 1. The patient will use a home exercise program 4 times a week or greater 2. The patient will have 50% reduced right shoulder pain with typical ADLs Long-Term Goals Timeframe: 03/11/2024 1. The patient will have no limitation for upper body dressing and grooming tasks due to the right shoulder 2. The patient will no sleep disturbance due to the right shoulder 3. The patient will have improved strength to demonstrate the ability to use the right upper extremity to lift up to 20 pounds of household items overhead without limitation Discharge Reason: Patient was being seen for L knee scope and reported R shoulder pain had improvedand no need for any continued services. Will be happy to see him for any needs in the future. Discharge patient at this time; future therapy will require a new physician's referral. documented in this encounter Plan of Treatment Upcoming Encounters Date Type Department Care Team (Late st Contact Info) Description 10/04/2024 9:[address] [facility] Pre-Surgical Testing [address] [place] [address] [phone] 10/14/2024 11:00 EST Hospital Encounter [facility] OR [address] [place] [address] [phone] Clemente Gerardo MD [address] [place] [phone] 10/14/2024 11:00 EST - 10/14/2024 14:35 EST Surgery [facility] OR [address] [place] [address] [phone] Clemente Gerardo MD [address] [place] [phone] Implantation of inflatable penile prosthesis [24387 (CPT??)] 10/17/2024 9:00 EST Telemedicine [facility] Urolog[address] [phone] Nurse Call, [facility] Urology 10/31/2024 15:00 EST Post-op Visit [facility] [phone] Clemente Gerardo MD [address] [place] [phone] 12/06/2024 10:15 EST Office Visit [address] [phone] Spike Puentes MD [address] [place] [phone] Scheduled Procedures Name Priority Associated Diagnoses Date/Ti me INSERTION, PENILE PROSTHESIS, INFLATABLE, 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 10/14/2024 11:00 EST documented as of this encounter Visit Diagnoses Diagnosis Right shoulder pain, unspecified chronicity- Primary Erectile dysfunction after radical prostatectomy documented in this encounter Care Teams Manager Asset Management Relationship Specialty Start Date End Date Marco Aleman MD [address] [address] PCP - General Emergency Medicine 12/07/23 documented as of this encounter
--- OUTSIDE RECORDS SUMMARY | 2024-07-19 22:10 | XMS_ITS | Encounter Summary ---
Author Organization [facility] Address [address] [place] [address] Care Team Providers Care Energy Project Manager Name Role Phone Marco Aleman MD Primary Care Provider [phone] Reason for Visit * Reason Onset Date Comments Anticoagulation 07/12/2024 Encounter Details Date Type Department Care Team (Late st Contact Info) Description 07/12/2024 Telephone [facility] Urology - [address] [phone] Clemente Gerardo MD [address] [place] [address], Level [address] [place] [phone] Anticoagulation Social History Tobacco Use Types Packs/Day Years [...] Telephone Encounter - Alexandria Walsh - 07/12/2024 0926 EDT Roland Vega is scheduled for surgery on 10/14/24. Would you like Aspirin, ASA 325 mg and Plavix(Clopidogrel) held? If so, for how many days? Surgery: Implantation of inflatable penile prosthesis documented in this encounter Plan of Treatment Upcoming Encounters Date Type Department Care Team (Late st Contact Info) Description 10/04/2024 9:[address] [facility] Pre-Surgical Testing [address] [place] [address] [phone] 10/14/2024 11:[address] [facility] OR [address] [place] [address] [phone] Clemente Gerardo MD [address] [place] [phone] 10/14/2024 11:00 EST - 10/14/2024 14:[address] [facility] OR [address] [place] [address] [phone] Clemente Gerardo MD [address] [place] [phone] Implantation of inflatable penile prosthesis [09123 (CPT??)] 10/17/2024 9:00 EST Telemedicine [facility] Urolog[address] [phone] Nurse Call, [facility] Urology 10/31/2024 15:00 EST Post-op Visit [address] [phone] Clemente Gerardo MD 111 [facility], Level [address] [place] [phone] 12/06/2024 10:15 EST Office Visit [address] [phone] Spike Puentes MD [address] [place] [phone] Scheduled Procedures Name Priority Associated Diagnoses Date/Ti me INSERTION, PENILE PROSTHESIS, INFLATABLE, 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 10/14/2024 11:00 EST documented as of this encounter Visit Diagnoses Not on filedocumented in this encounter Care Teams Energy Project Manager Relationship Specialty Start Date End Date Marco Aleman MD 26 [facility] [address] [place], [place] [address] PCP - General Emergency Medicine 12/07/23 documented as of this encounter
--- OUTSIDE RECORDS SUMMARY | 2024-07-19 22:11 | XMS_ITS | Encounter Summary ---
Author Organization [facility] Address [address] [place] [address] Care Team Providers Care Class C Driver Name Role Phone Marco Altamirano MD Primary Care Provider [phone] Reason for Visit * Reason Comments Glaucoma Suspicion Complete exam, OCT Encounter Details Date Type Department Care Team (Late st Contact Info) Description 06/02/2023 14:30 EDT Office Visit [facility] Ophthalmology [facility] [address] [place] [address] Spike Puentes MD [address] [place] [phone] Social History Tobacco Use Types Packs/Day Years Used Date Smoking Tobacco: Former Smokeless Tobacco: Never Alcohol Use Standard Drinks/Week [...] Progress Notes * Spike Puentes MD - 06/02/2023 1430 EDT Chief Complaint Patient presents with ??? Glaucoma Suspicion Complete exam, OCT HPI The patient is a 73 y.o. male glaucoma suspect here for complete exam and check of cataracts. Stable vision reported. he has no eye pain, double vision, or new flashes/floaters. Right Eye: Problem with Night Vision Left Eye: Problem with Night Vision Visual Aid: Glasses Current Rx Age Location: Pain: 0 - No pain Quality: Severity: Duration: Timing: Lasts: Context: Vision seems stable with glasses, without very difficult to see. No eye pain or flashes oflight. Many stable floaters. Tells me depth perception in left eye worse due to vision. Wears threeseperate pairs of glasses for distance, intermediate, and near. Modifying factors: Associated Signs & Symptoms: Attestation: ROS Constitutional: NL ENT/Mouth NL Cardiovascular: High Blood Pressure, High Cholesterol (CAD) Respiratory: NL Gastrointestinal: (GERD) Genitourinary: (h/o prostate CA) Musculoskeletal: (RA) Integumentary: NL Neurologic: (h/o TIA,CVA) Psychiatric: NL Endocrine: NL Hematologic: (h/o prostate CA) Immunologic: Drug Allergy (RA) Parking Enforcer: Exposures: None Other: Attestation: Base Eye Exam Visual Acuity (Snellen - Linear) Right Left Dist sc 20/40 -2 20/250 Dist ph sc 20/30 NI Tonometry (Applanation, 15:17) Right Left Pressure 17 20 Pupils Pupils APD Right PERRL None Left PERRL None Visual Lovett Right Left Full Full Extraocular Movement Right Left Full Full Neuro/Psych Oriented x3: Yes Mood/Affect: Normal Dilation Both eyes: Phenylephrine 2.5%, Tropicamide 1% @ 15:17 Slit Lamp and Fundus Exam External Exam [...] vitreous detachment Disc Normal Normal C/D Ratio 0.5 0.65 Macula Trace epiretinal membrane Normal Vessels Normal Normal Periphery Normal Normal Refraction Wearing Rx Sphere Cylinder [place] Add Right -0.50 +1.25 025 Left -2.00 +1.25 155 Type: SVL-dist. Wearing Rx #2 Sphere Cylinder [place] Add Right +1.00 +1.25 025 +1.25 Left -0.50 +1.25 155 +1.25 Type: computer Manifest Refraction Sphere Cylinder [place] Dist VA Add Near VA Right -0.50 +1.50 025 20/25 +2.75 J2 Left -2.00 +1.25 162 20/250-1 +2.75 J2 Final Rx Sphere Cylinder [place] Add Right -0.50 +1.50 025 +2.75 Left -2.00 +1.25 162 +2.75 Expiration Date: 06/02/2025 Final Rx #2 Sphere Cylinder [place] Add Right +0.75 +1.50 025 +1.25 Left -0.75 +1.25 162 +1.25 Type: computer Expiration Date: 06/02/2025 DIAGNOSTIC TESTING/PROCEDURES: OCT, Optic Nerve - OU - Both Eyes Indication: ocular hypertension OCT Optic Nerve Head and rNFL: Right: signal strength: 7/10 Avg thickness: 94 no thinning Left: signal strength: 6/10 Avg thickness: 55 thinning superior and inferior, borderline nasal IMPRESSION & PLAN: 1. 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 Cataract, both eyes Not visually significant -Monitor periodically 3. Epiretinal membrane, right eye Mild visual significance Discussed Recommend regular use of Amsler grid No treatment needed right now, Monitor periodically 4. Posterior vitreous detachment, both eyes Stable, monitor periodically 5. Amblyopia, left eye Dense Monitor 6. Disorder of refraction and accommodation -Give glasses Rx patient???s option to fill I have reviewed the patient's past medical, family, social and surgical history. I have also reviewed the patient's medications, allergies, and problem list. I performed my own history and have reviewed the tech's ROS as well. I completed this exam personally. Spike Puentes MD I am scribing for Spike Puentes MD, while he is personally performing the service. Nabila Ambrosio COA documented in this encounter Plan of Treatment Upcoming Encounters Date Type Department Care Team (Late st Contact Info) Description 10/04/2024 9:50 EST Appointment [facility] Pre-Surgical Testing [address] [place] [phone] 10/14/2024 11:00 EST Hospital Encounter [facility] OR [address] [place] [address] [phone] Clemente Gerardo MD [address] [place] [address], [facility] [address] [place] [phone] 10/14/2024 11:00 EST - 10/14/2024 14:35 EST Surgery [facility] OR [address] [place] [address] [phone] Clemente Gerardo MD [address] [place] [phone] Implantation of inflatable penile prosthesis [86587 (CPT??)] 10/17/2024 9:00 EST Telemedicine [facility] Urology - [address] [phone] Nurse Call, [facility] Urology 10/31/2024 15:00 EST Post-op Visit [facility] Urology - [facility] [address], [place] 514[address] Clemente Gerardo MD [address] [facility], [address] [place] [phone] 12/06/2024 10:15 EST Office Visit [facility] Ophthalmology [facility] [address] [place] [address] Spike Puentes MD [address] [place] [phone] Scheduled Procedures Name Priority Associated Diagnoses Date/Ti me INSERTION, PENILE PROSTHESIS, INFLATABLE, 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 10/14/2024 11:00 EST documented as of this encounter Procedures Procedure Name Priority Date/Time Associated Diagnosis Comments OCT, OPTIC NERVE - OU - BOTH EYES Routine 06/02/2023 16:08 EDT Glaucoma suspect, bilateral documented in this encounter Results * OCT, OPTIC NERVE - OU - BOTH EYES (06/02/2023 16:08 EDT) Narrative [facility] OPHTHALMOLOGY - 06/02/2023 16:08 EDT Indication: ocular hypertension OCT Optic Nerve Head and rNFL: Right: signal strength: 7/10 Avg thickness: 94 no thinning Left: signal strength: 6/10 Avg thickness: 55 thinning superior and inferior, borderline nasal Spike Puentes MD OPHTH TOMOGRAPHY [facility] OPHTHALMOLOGY documented in this encounter Visit Diagnoses Diagnosis Glaucoma suspect, bilateral- Primary Senile nuclear sclerosis, right Senile nuclear sclerosis, left Epiretinal membrane (ERM) of right eye Posterior vitreous detachment of both eyes Vitreous degeneration Amblyopia of eye, left Disorder of refraction and accommodation Unspecified disorder of refraction and accommodation Erectile dysfunction after radical prostatectomy documented in this encounter Eye Exam Visual Acuity (Snellen - Linear) Right eye Left eye Dist sc 20/40 -2 20/250 Dist ph sc 20/30 NI Tonometry (Applanation, 15:17) Right eye Left eye Pressure 17 20 Pupils Pupils APD Right eye PERRL None Left eye PERRL None Visual Lovett Right eye Left eye Full Full Extraocular Movement Right eye Left eye Full Full Neuro/Psych Oriented x3: Yes Mood/Affect: Normal Dilation Both eyes: Phenylephrine 2.5 %, Tropicamide 1% @ 15:17 External Exam Right eye Left eye External [...] vitreous detachment Disc Normal Normal C/D Ratio 0.5 0.65 Macula Trace epiretinal membrane Normal Vessels Normal Normal Periphery Normal Normal Wearing Rx #1 Sphere Cylinder [place] Add Right eye -0.50 +1.25 025 Left eye -2.00 +1.25 155 Type: SVL-dist. Wearing Rx #2 Sphere Cylinder [place] Add Right eye +1.00 +1.25 025 +1.25 Left eye -0.50 +1.25 155 +1.25 Type: computer Manifest Refraction Sphere Cylinder [place] Dist VA Add Near VA Right eye -0.50 +1.50 025 20/25 +2.75 J2 Left eye -2.00 +1.25 162 20/250-1 +2.75 J2 Final Rx #1 Sphere Cylinder [place] Add Right eye -0.50 +1.50 025 +2.75 Left eye -2.00 +1.25 162 +2.75 Expiration Date: 06/02/2025 Final Rx #2 Sphere Cylinder [place] Add Right eye +0.75 +1.50 025 +1.25 Left eye -0.75 +1.25 162 +1.25 Type: computer Expiration Date: 06/02/2025 Care Teams Class C Driver Relationship Specialty Start Date End Date Marco Altamirano MD [address] [place] [phone] PCP - General Family Medicine - Primary Care 03/10/23 09/13/23 documented as of this encounter
--- OUTSIDE RECORDS SUMMARY | 2024-07-19 22:11 | XMS_ITS | Encounter Summary ---
Author Organization [facility] Address [address] [place] [address] Care Team Providers Care Christian Science Nurse Name Role Phone Marco Aleman MD Primary Care Provider [phone] Encounter Details Date Type Department Care Team (Latest Contact Info) Description 12/07/2023 Transcribe Orders [facility] Lab - Main [place] [address] [place] [address] Marco Aleman MD [address] [facility] [address] [place] [address] Urinary tract infection without hematuria, site unspecified (Primary Dx) Social History Tobacco Use Types [...] [facility] Pre-Surgical Testing [address] [place] [address] [phone] 10/14/2024 11:00 EST Hospital Encounter [facility] OR [address] [place] [address] [phone] Clemente Gerardo MD [address] [place] [phone] 10/14/2024 11:00 EST - 10/14/2024 14:35 EST Surgery [facility] OR [address] [place] [address] [phone] Clemente Gerardo MD [address] [place] [phone] Implantation of inflatable penile prosthesis [64271 (CPT??)] 10/17/2024 9:00 EST Telemedicine [address] [phone] Nurse Call, [facility] Urology 10/31/2024 15:00 EST Post-op Visit [address] [phone] Clemente Gerardo MD 111 [facility], Level [address] [place] [phone] 12/06/2024 10:15 EST Office Visit [facility] [address] [place], [place] [phone] Spike Puentes MD [address] [place] [phone] Scheduled Procedures Name Priority Associated Diagnoses Date/Ti me INSERTION, PENILE PROSTHESIS, INFLATABLE, 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 10/14/2024 11:00 EST documented as of this encounter Procedures Procedure Name Priority Date/Time Associated Diagnosis Comments UA WITH REFLEX SEDIMENT (CULTURE IF POS) Routine 12/07/2023 14:38 EST Urinary tract infection without hematuria, site unspecified documented in this encounter Results * UA CASCADE TO CULTURE (12/07/2023 14:38 EST) Color UA Yellow Colorless, Yellow 12/07/2023 15:57 [facility] Clarity UA Clear Clear 12/07/2023 15:57 [facility] Glucose UA Negative Negative mg/dL 12/07/2023 15:57 [facility] Bilirubin UA Negative Negative 12/07/2023 15:57 [facility] Ketones UA Negative Negative 12/07/2023 15:57 [facility] Specific [place], Urine 1.020 1.001 - 1.030 12/07/2023 15:57 [facility] Blood UA Negative Negative 12/07/2023 15:57 [facility] pH, UA 6.0 <8.5 12/07/2023 15:57 [facility] Protein UA Negative Negative mg/dL 12/07/2023 15:57 [facility] Urobilinogen UA 0.2 0.2-1.0 mg/dL mg/dL 12/07/2023 15:57 EST [facility] Nitrite UA Negative Negative 12/07/2023 15:57 EST [facility] Leukocyte Esterase UA Negative Negative 12/07/2023 15:57 EST [facility] Urine URINE SPECIMEN OBTAINED BY CLEAN CATCH PROCEDURE / Unknown Urine Collect / Unknown 12/07/2023 14:38 EST 12/07/2023 15:17 EST Marco Aleman MD URINALYSIS ORDERABLE S Performing Organization Address City/State/[facility] Co de Phone Number [facility] [address] [place] [address] documented in this encounter Visit Diagnoses Diagnosis Urinary tract infection without hematuria, site unspecified- Primary Erectile dysfunction after radical prostatectomy documented in this encounter Care Teams Christian [employer] Nurse Relationship Specialty Start Date End Date Marco Aleman MD [address] [facility] [address] [place] [address] PCP - General Emergency Medicine 12/07/23 documented as of this encounter
--- OUTSIDE RECORDS SUMMARY | 2024-07-19 22:11 | XMS_ITS | Encounter Summary ---
Author Organization [facility] Address [address] [place] [address] Care Team Providers Care Box Order Person Name Role Phone Marco Altamirano MD Primary Care Provider [phone] Reason for Visit * Reason Onset Date Comments Medication Problem 03/17/2023 RX written in correctly. Encounter Details Date Type Department Care Team (Late st Contact Info) Description 03/17/2023 Telephone [facility] Medicine [address], [facility] [address] [place] [address] Marco Altamirano MD [address] [place] [address] [address] [place] [phone] Medication Problem (RX written incorrectly.) Social History Tobacco Use Types Packs/Day Years [...] No 02/10/2023 documented as of this encounter Ordered Prescriptions Prescription Sig Dispensed Refills Start Date End Da te testosterone cypionate (DEPO-TESTOSTERONE) 200 mg/mL injection Inject 1.5 mL into the muscle once a week. 2 vials of 10mL please Daily Max: 300 mg 20 mL 2023 05/19/2023 documented in this encounter Miscellaneous Notes * Telephone Encounter - Amy Liu - 2023 1450 EDT Notified patient. * Telephone Encounter - Rayne Baptiste PA-C - 2023 1054 EDT Sent in pls let pt know * Telephone Encounter - Jada [place] MA - 2023 1001 EDT [facility] MEDICATION REFILL Medication: Testosterone cypionate 200 mg/mL injection Medication, dose, directions verified: Inject 1.5 mL into the muscle. Pharmacy verified: [facility] Last office visit: 03/12/23 Next office visit: 04/20/23 JI-Patient called back and states that he has been trying to get this script right for 6 weeks now.Needs to go to [facility] [place] and needs to be as follows 2 10 ml viles 1.5 ml for one week 200 mg per ml. Pended for your review. * Telephone Encounter - Stella May RN - 2023 0836 EDT Labs and ov were done. We can now send in two vials as requested * Telephone Encounter - Steffen Deng - 03/18/2023 1440 EDT Patient called back and states that he has been trying to get this script right for 6 weeks now. Needs to go to [facility] and needs to be as follows 2 10 ml viles 1.5 ml for one week 200 mg per ml * Telephone Encounter - Talisha Arredondo - 03/17/2023 1638 EDT Pt called, RX for testosterone is incorrect. Pt states that it needs to be written for TWO - 10 ml viles, dosing 1.5 ml. [facility]. documented in this encounter Plan of Treatment Upcoming Encounters Date Type Department Care Team (Late st Contact Info) Description 10/04/2024 9:50 EST Appointment [facility] Pre-Surgical Testing [address] [place] [phone] 10/14/2024 11:00 EST Hospital Encounter [facility] OR [address] [place] [address] [phone] Clemente Gerardo MD [address] [place] [address], [address] [place] [phone] 10/14/2024 11:00 EST - 10/14/2024 14:35 EST Surgery [facility] OR [address] [place] [address] [phone] Clemente Gerardo MD [address] [place] [address] [phone] Implantation of inflatable penile prosthesis [01180 (CPT??)] 10/17/2024 9:00 EST Telemedicine [facility] Urology [address] [phone] Nurse Call, [facility] Urology 10/31/2024 15:00 EST Post-op Visit [facility] Urolog[address] [phone] Clemente Gerardo MD [address] [place] [address] [phone] 12/06/2024 10:15 EST Office Visit [facility] Ophthalmology [address] [phone] Spike Puentes MD [address] [place] [phone] Scheduled Procedures Name Priority Associated Diagnoses Date/Ti me INSERTION, PENILE PROSTHESIS, INFLATABLE, 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 10/14/2024 11:00 EST documented as of this encounter Visit Diagnoses Not on filedocumented in this encounter Discontinued Medications Medication Sig Discontinue Reason Start Date End Da te testosterone cypionate (DEPO-TESTOSTERONE) 200 mg/mL injection Inject 1.5 mL into the muscle every 28 days for 90 days. Daily Max: 300 mg Reorder 03/16/2023 2023 documented as of this encounter Care Teams Box Order Person Relationship Specialty Start Date End Date Marco Altamirano MD [address] [place] [phone] PCP - General Family Medicine - Primary Care 03/10/23 09/13/23 documented as of this encounter
--- OUTSIDE RECORDS SUMMARY | 2024-07-19 22:11 | XMS_ITS | Encounter Summary ---
Author Organization [facility] Address [address] [place] [address] Care Team Providers Care Roller Stitcher Name Role Phone Marco Altamirano MD Primary Care Provider [phone] Reason for Visit * Reason Comments Follow-up Encounter Details Date Type Department Care Team (Latest Contact Info) Description 03/12/2023 8:[address] [facility] Family Medicine [facility] [address] [facility], Gerardo [address] [place] [address] Rayne Baptiste PA-C [address] [facility] [address] [place] [phone] Claustrophobia (Primary Dx); Hypogonadism in male; History of anemia; Viral gastroenteritis Social History Tobacco Use Types Packs/Day Years [...] Dispensed Refills Start Date End Da te diazePAM (VALIUM) 5 mg tablet Take 1-2 tabs 1 hr prior to flights and before procedure 10 Tablet 03/12/2023 testosterone cypionate (DEPO-TESTOSTERONE) 200 mg/mL injection Inject 1.25 mL into the muscle every 7 days. Daily Max: 250 mg 20 mL 3 03/12/2023 03/16/2023 documented in this encounter Progress Notes * Rayne Baptiste PA-C - 03/12/2023 0845 EDT Primary Care Video Visit Assessment & Plan 1. Claustrophobia Discussed dx. Sent in diazepam with clear instructions. 2. Hypogonadism in male Reorder of testosterone per pt request 3. History of anemia Reviewed labs from [facility] H/h improved to 12.2/39 on 03/11/23 4. Viral gastroenteritis Improving, resolving. No imodium BRATY diet, fluids Close f'up prn Could consider stool studies if recurs. Patient education was direct. Barriers were assessed and addressed as needed. I spent a total of 39 minutes on the date of this encounter meeting with the patient and reviewing documentation/coordinating care as described in the above note. Unless otherwise noted, no procedures were performed at the time of the visit. Rena Watkins is a 72 y.o. 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 Pt here for acute visit for discussion re: claustrophobia. Extremely claustrophobic for years. Has extreme dental work in the near future and is going to have it done in [place]. Usually uses some med for calming for flights and before procedures. Also, needs refill of testosterone amended to a diff vial amt. Had recent labs at [facility]. Would like to review. Was having palpitations, dizziness, tachycardia. Had issues with colonoscopy. Ended up with bleeding after colo. See TCM notes. Went then to [facility] ED, not a great experience. Had to have 4 units of blood. This week having loose stools. Wonders about rotavirus. Exposed to virus thru grandchild. Coulnd't get off the toilet. Taking imodium and greatly helpful. Only took 2 tabs imodium. Now normal stooling. Sore in lower abdomen, but minimal. Did have +fatigue, VALDEZ, nausea, no vomiting, fever and chills. These sxs are gone. 123/73 BP at home. Stopped PPI, pantroprazole. Got heartburn sxs since the bowel issues. Restarted now. Stopped clopidogrel given bleeding after colo and off it now until dental surgery 03/25/23. Data reviewed this visit: problem list/past medical history, current medications, allergies, surgical history, last visit note, recent labs, recent specialist documentation and recent Emergency Department visit record ROS - See HPI TELEMEDICINE VIDEO VISIT Today's visit was provided through telemedicine video conferencing: The location of the patient : Home The location of the provider: Office The following staff and their role did participate in today's encounter visit: Rayne Baptiste PA-C Objective There were no vitals taken for this visit. Physical Exam Appears well. A& O. Nontoxic appearing. Eyes anicteric. Resp unlabored. Pleasant mood and affect. documented in this encounter Plan of Treatment Upcoming Encounters Date Type Department Care Team (Late st Contact Info) Description 10/04/2024 9:50 EST Appointment [facility] Pre-Surgical Testing [address] [place], [place] [phone] 10/14/2024 11:00 EST Hospital Encounter [facility] OR [address] [place] [address] Clemente Gerardo MD [address] [place] [phone] 10/14/2024 11:00 EST - 10/14/2024 14:35 EST Surgery [facility] OR [address] [place] [address] [phone] Clemente Gerardo MD [address] [place] [address] [phone] Implantation of inflatable penile prosthesis [78826 (CPT??)] 10/17/2024 9:00 EST Telemedicine [facility] Urolog[address] [phone] Nurse Call, [facility] Urology 10/31/2024 15:00 EST Post-op Visit [address] [phone] Clemente Gerardo MD [address] [place] [phone] 12/06/2024 10:15 EST Office Visit [facility] Ophthalmology [address] [phone] Spike Puentes MD [address] [place] [phone] Scheduled Procedures Name Priority Associated Diagnoses Date/Ti me INSERTION, PENILE PROSTHESIS, INFLATABLE, 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 10/14/2024 11:00 EST documented as of this encounter Visit Diagnoses Diagnosis Claustrophobia- Primary Other isolated or specific phobias Hypogonadism in male History of anemia Personal history of diseases of blood and blood-forming organs Viral gastroenteritis Intestinal infection due to other organism, not elsewhere classified Erectile dysfunction after radical prostatectomy documented in this encounter Discontinued Medications Medication Sig Discontinue Reason Start Date End Da te testosterone cypionate (DEPO-TESTOSTERONE) 200 mg/mL injection Inject 1.25 mL into the muscle every 7 days. Daily Max: 250 mg Reorder 03/06/2023 03/12/2023 amLODIPine (NORVASC) 10 mg tablet Take 1 Tablet by mouth daily for 90 days. Patient Stopped Taking 10/16/2022 03/12/2023 documented as of this encounter Care Teams Roller Stitcher Relationship Specialty Start Date End Date Marco Altamirano MD [address] [place] [address] [phone] PCP - General Family Medicine - Primary Care 03/10/23 09/13/23 documented as of this encounter
--- OUTSIDE RECORDS SUMMARY | 2024-07-19 22:11 | XMS_ITS | Encounter Summary ---
Author Organization [facility] Address [address] [place] [address] Care Team Providers Care Lead Press Operator Name Role Phone Marco Altamirano MD Primary Care Provider Reason for Visit * Reason Comments Medications Refill Encounter Details Date Type Department Care Team (Late st Contact Info) Description 09/09/2023 Refill [facility] Medicine [facility] [address], [address] [place] [address] Vel Santos MD Medications Refill Social History Tobacco Use Types Packs/Day Years [...] Dispensed Refills Start Date End Da te buPROPion (WELLBUTRIN SR) 150 mg SR tablet Take 1 tablet by mouth once daily 90 Tablet 09/11/2023 pantoprazole (PROTONIX) 40 mg tablet Take 1 tablet by mouth once daily 90 Tablet 09/11/2023 06/03/2024 documented in this encounter Miscellaneous Notes * Telephone Encounter - Mikki Talbot - 09/14/2023 0827 EST Called pt, he has switched providers and now goes to [facility] * Telephone Encounter - Carmina Banks NP - 09/11/2023 1412 EST Pls schedule as per nursing below. * Telephone Encounter - Stella May RN - 09/11/2023 1058 EST Ov 04/2023 No FU Needs FU Last labs 01/2023 after a GI bleed. documented in this encounter Plan of Treatment Upcoming Encounters Date Type Department Care Team (Late st Contact Info) Description 10/04/2024 9:50 EST Appointment [facility] Pre-Surgical Testing [address] [place] [address] 10/14/2024 11:00 EST Hospital Encounter [facility] OR [address] [place] [address] Clemente Gerardo MD [address] [place] [address] [phone] 10/14/2024 11:00 EST - 10/14/2024 14:35 EST Surgery [facility] OR [address] [place] [address] [phone] Clemente Gerardo MD [address] [place] [address] [phone] Implantation of inflatable penile prosthesis [70534 (CPT??)] 10/17/2024 9:00 EST Telemedicine [address] [phone] Nurse Call, [facility] Urology 10/31/2024 15:00 EST Post-op Visit [facility] [address] [address] Clemente Gerardo MD [address] [place] [address] [phone] 12/06/2024 10:15 EST Office Visit [facility] Ophthalmology [address] [address] Spike Puentes MD [address] [place] [phone] Scheduled Procedures Name Priority Associated Diagnoses Date/Ti me INSERTION, PENILE PROSTHESIS, INFLATABLE, 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 10/14/2024 11:00 EST documented as of this encounter Visit Diagnoses Not on filedocumented in this encounter Discontinued Medications Medication Sig Discontinue Reason Start Date End Da te buPROPion (WELLBUTRIN SR) 150 mg SR tablet Take 1 Tablet by mouth daily. 10/16/2022 09/11/2023 pantoprazole (PROTONIX) 40 mg tablet Take 1 Tablet by mouth daily for 360 days. 10/16/2022 09/11/2023 documented as of this encounter Care Teams Lead Press Operator Relationship Specialty Start Date End Date Marco Altamirano MD [address] [place] [address] [phone] PCP - General Family Medicine - Primary Care 03/10/23 09/13/23 documented as of this encounter
--- OUTSIDE RECORDS SUMMARY | 2024-07-19 22:11 | XMS_ITS | Encounter Summary ---
Author Organization [facility] Address [address] [place] [address] Care Team Providers Care Hand Or Machine Paster Name Role Phone Marco Aleman MD Primary Care Provider [phone] Reason for Visit * Reason Comments Glaucoma Suspicion [facility] 24-2 & IOP check Encounter Details Date Type Department Care Team (Late st Contact Info) Description 12/08/2023 14:30 EST Office Visit [facility] Ophthalmology [facility] [address] [place], [place] [address] Spike Puentes MD [address] [place] [phone] Social History Tobacco Use Types Packs/Day Years [...] Progress Notes * Spike Puentes MD - 12/08/2023 1430 EST Chief Complaint Patient presents with Glaucoma Suspicion [facility] 24-2 & IOP check HPI The patient is a 73 y.o. male here for follow up of glaucoma suspicion. He reports that his vision has been mostly stable. HE does have some glare when driving at night. Right Eye: Glare or Light Sensitivity, Problem with Night Vision, Dryness Left Eye: Glare or Light Sensitivity, Problem with Night Vision, Dryness Visual Aid: Glasses Current Rx Age Location: Pain: 0 - No pain Quality: Severity: Duration: Timing: Lasts: Context: pt here for follow up visit. He reports vision mostly stable. He does have issues at nightwith glare from lights & is sensitive to bright light durning the day. He has floaters, no flashes, and no eye pain.His eyes are often feeling dry in the am & pm - has crusties in the corners. Modifying factors: uses saline drops for dryness Associated Signs & Symptoms: amblyopia, left Attestation: ROS Constitutional: ENT/Mouth Cardiovascular: Respiratory: Gastrointestinal: Genitourinary: Musculoskeletal: Integumentary: Neurologic: Psychiatric: Endocrine: Hematologic: Immunologic: Equity Research Analyst: Exposures: Other: Attestation: Base Eye Exam Visual Acuity (Snellen - Linear) Right Left Dist cc 20/25 -3 20/150 -3 Dist ph cc 20/100 -3 Correction: Glasses Tonometry (Applanation, 15:25) Right Left Pressure 17 20 Tonometry #2 (Applanation-MD, 15:42) Right Left Pressure 15 20 Neuro/Psych Oriented x3: Yes Mood/Affect: Normal Slit Lamp and Fundus Exam External Exam Right Left External Normal Normal Slit Lamp Exam Right Left Lids/Lashes Papilloma lateral upper eyelid Blepharitis Conjunctiva/Sclera White and quiet Conjunctival cyst nasally Cornea Clear Clear Anterior Chamber Deep and quiet Deep and quiet Iris Round and reactive Round and reactive Lens 1-2+ Nuclear sclerosis 1-2+ Nuclear sclerosis Fundus Exam Right Left Disc no hemorrhage no hemorrhage Refraction Wearing Rx Sphere Cylinder Lakin Add Right -0.50 +1.50 025 +2.75 Left -2.00 +1.25 162 +2.75 Wearing Rx #2 Sphere Cylinder Lakin Add Right +0.75 +1.50 025 +1.25 Left -0.75 +1.25 162 +1.25 Type: computer DIAGNOSTIC TESTING/PROCEDURES: Nguyen VF 24-2 Standard - OU - Both Eyes Nguyen visual field 24-2 LEAH Standard report: Indication: Glaucoma suspect Right: Reliable (7% False Positives), Full Left: Less Reliable (4/16 Fixation losses), inferior and nasal defect IMPRESSION & PLAN: 1. 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 OR [address] [place] [address] Clemente Gerardo MD 111 [facility], Level [address] [place] [phone] 10/14/2024 11:00 EST - 10/14/2024 14:[address] [facility] OR [address] [place] [address] [phone] Clemente Gerardo MD [address] [place] [address] 5 [place] [phone] Implantation of inflatable penile prosthesis [54059 (CPT??)] 10/17/2024 9:00 EST Telemedicine [facility] Urolog[address] [phone] Nurse Call, [facility] Urology 10/31/2024 15:00 EST Post-op Visit [address] [phone] Clemente Gerardo MD [address] [place] [address] [phone] 12/06/2024 10:15 EST Office Visit [facility] Ophthalmology [address] [address] Spike Puentes MD [address] [place] [address] [phone] Scheduled Procedures Name Priority Associated Diagnoses Date/Ti me INSERTION, PENILE PROSTHESIS, INFLATABLE, 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 10/14/2024 11:00 EST documented as of this encounter Procedures Procedure Name Priority Date/Time Associated Diagnosis Comments NGUYEN VF 24-2 STANDARD - OU - BOTH EYES Routine 12/08/2023 15:48 EST Glaucoma suspect, bilateral documented in this encounter Results * NGUYEN VF 24-2 STANDARD - OU - BOTH EYES (12/08/2023 15:48 EST) Narrative [facility] - 12/08/2023 15:48 EST Nguyen visual field 24-2 LEAH Standard report: Indication: Glaucoma suspect Right: Reliable (7% False Positives), Full Left: Less Reliable (4/16 Fixation losses), inferior and nasal defect Spike Puentes MD OPHTH VISUAL FIELD [facility] documented in this encounter Visit Diagnoses Diagnosis Glaucoma suspect, bilateral- Primary Amblyopia of eye, left Erectile dysfunction after radical prostatectomy documented in this encounter Eye Exam Visual Acuity (Snellen - Linear) Right eye Left eye Dist cc 20/25 -3 20/150 -3 Dist ph cc 20/100 -3 Correction: Glasses Tonometry #1 (Applanation, 15:25) Right eye Left eye Pressure 17 20 Tonometry #2 (Applanation-MD, 15:42) Right eye Left eye Pressure 15 20 Neuro/Psych Oriented x3: Yes Mood/Affect: Normal External Exam Right eye Left eye External Normal Normal Slit Lamp Exam Right eye Left eye Lids/Lashes Papilloma lateral upper eyelid B lepharitis Conjunctiva/Sclera White and quiet Conjunctival cyst nasally Cornea Clear Clear Anterior Chamber Deep and quiet Deep and quiet Iris Round and reactive Round and sharmila ctive Lens 1-2+ Nuclear sclerosis 1-2+ Nucl ear sclerosis Fundus Exam Right eye Left eye Disc no hemorrhage no hemorrhage Wearing Rx #1 Sphere Cylinder Lakin Add Right eye -0.50 +1.50 025 +2.75 Left eye -2.00 +1.25 162 +2.75 Wearing Rx #2 Sphere Cylinder Lakin Add Right eye +0.75 +1.50 025 +1.25 Left eye -0.75 +1.25 162 +1.25 Type: computer Care Teams Hand Or Machine Paster Relationship Specialty Start Date End Date Marco Aleman MD 26 [facility] [address] [place] [phone] PCP - General Emergency Medicine 12/07/23 documented as of this encounter
--- OUTSIDE RECORDS SUMMARY | 2024-07-19 22:11 | XMS_ITS | Encounter Summary ---
Author Organization [facility] Address [address] [place] [address] Care Team Providers Care Senior Director Of Global Commercial Technology Solutions Name Role Phone Marco Altamirano MD Primary Care Provider [phone] Reason for Visit * Reason Onset Date Comments Medications Refill 05/19/2023 Encounter Details Date Type Department Care Team (Late st Contact Info) Description 05/19/[address] [facility] Family Medicine [address], [address] [place] [address] Marco Altamirano MD [address] [place] [address] [address] [place] [phone] Medications Refill Social History Tobacco Use Types [...] No 02/10/2023 documented as of this encounter Miscellaneous Notes * Telephone Encounter - Betzaida Boles MA - 05/20/2023 1401 EDT This is being taken care of in separate TE. * Telephone Encounter - Makeda Garcia - 05/19/2023 1030 EDT Patient is requesting a refill of testosterone. They are unable to be seen by primary care until 08/27/23 for where they are transferring care to. They have an appointment with their new primary carebut Dr there doesn't feel comfortable prescribing this medication without seeing the patient first. documented in this encounter Plan of Treatment Upcoming Encounters Date Type Department Care Team (Late st Contact Info) Description 10/04/2024 9:50 EST Appointment [facility] Pre-Surgical Testing [address] [place], [place] [address] 10/14/2024 11:00 EST Hospital Encounter [facility] OR [address] [place], [place] [phone] Clemente Gerardo MD 111 [facility], Level [address] [place] [phone] 10/14/2024 11:00 EST - 10/14/2024 14:35 EST Surgery [facility] OR [address] [place] [address] [phone] Clemente Gerardo MD [address] [place] [address] [phone] Implantation of inflatable penile prosthesis [96424 (CPT??)] 10/17/2024 9:00 EST Telemedicine [facility] Urolog[address] [phone] Nurse Call, [facility] Urology 10/31/2024 15:00 EST Post-op Visit [address] [address] Clemente Gerardo MD [address] [place] [address] [phone] 12/06/2024 10:15 EST Office Visit [address] [phone] Spike Puentes MD [address] [place] [phone] Scheduled Procedures Name Priority Associated Diagnoses Date/Ti me INSERTION, PENILE PROSTHESIS, INFLATABLE, 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 10/14/2024 11:00 EST documented as of this encounter Visit Diagnoses Not on filedocumented in this encounter Care Teams Senior Director Of [employer] Relationship Specialty Start Date End Date Marco Altamirano MD [address] [place] [address] [phone] PCP - General Family Medicine - Primary Care 03/10/23 09/13/23 documented as of this encounter
--- OUTSIDE RECORDS SUMMARY | 2024-07-19 22:11 | XMS_ITS | Encounter Summary ---
Author Organization [facility] Address [address] [place] [address] Care Team Providers Care Dental Amalgam Processor Name Role Phone Marco Aleman MD Primary Care Provider [phone] Encounter Details Date Type Department Care Team (Latest Contact Info) Description 02/12/2024 Travel Social History Tobacco Use Types Packs/Day [...] Info) Description 10/04/2024 9:50 EST Appointment [facility] Pre-Surgical Testing [address] [place] [address] [phone] 10/14/2024 11:[address] [facility] OR [address] [place] [address] [phone] Clemente Gerardo MD [address] [place] [address] [phone] 10/14/2024 11:00 EST - 10/14/2024 14:[address] [facility] OR [address] [place] [address] [phone] Clemente Gerardo MD [address] [place] [address] [phone] Implantation of inflatable penile prosthesis [93535 (CPT??)] 10/17/2024 9:00 EST Telemedicine [facility] Urology [address] [phone] Nurse Call, [facility] Urology 10/31/2024 15:00 EST Post-op Visit [facility] Urology [address] [phone] Clemente Gerardo MD [address] [place] [address] [phone] 12/06/2024 10:15 EST Office Visit [facility] Ophthalmology [facility] [address] [place] [address] Spike Puentes MD [address] [place] [phone] Scheduled Procedures Name Priority Associated Diagnoses Date/Ti me INSERTION, PENILE PROSTHESIS, INFLATABLE, 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 10/14/2024 11:00 EST documented as of this encounter Visit Diagnoses Not on filedocumented in this encounter Care Teams Dental Amalgam Processor Relationship Specialty Start Date End Date Marco Aleman MD [address] [place] [address] [address] [place] [address] PCP - General Emergency Medicine 12/07/23 documented as of this encounter
--- OUTSIDE RECORDS SUMMARY | 2024-07-19 22:11 | XMS_ITS | Encounter Summary ---
Author Organization [facility] Address [address] [place] [address] Care Team Providers Care Tour Guide Name Role Phone Marco Altamirano MD Primary Care Provider [phone] Reason for Referral * Consult (Routine/Next Available) - Closed Specialty Diagnoses / Procedures Referred By Yi cummings Referred To Contact Diagnoses Palpitations Marco Altamirano MD [address] [facility] [place] [address] [place] [address] Referral ID Status Reason Start Date Expiration Date V isits Requested Visits Authorized [id number] Closed Specialty Services Required 04/21/2023 1 1 Question Answer Outside Physician's Address Cardiology at [facility] Reason for Request: Palpitations, hx of CAD Reason for Visit * Reason Onset Date Comments Referral Request 04/21/2023 Encounter Details Date Type Department Care Team (Late st Contact Info) Description 04/21/2023 Telephone [facility] [place] [facility] [address] [facility], [address] [place] [address] Doreen Lynn, butcher apprentice Request Social History Tobacco Use Types Packs/Day Years [...] encounter Miscellaneous Notes * Telephone Encounter - Talisha Arredondo - 04/22/2023 1029 EDT Spoke with pt, aware that referral is being faxed. * Telephone Encounter - Marco Altamirano MD - 04/21/2023 1815 EDT referral signed * Telephone Encounter - Doreen Lynn RN - 04/21/2023 1334 EDT Call from patient advocate, needs new cardiology referral (see previous referral from 01/14/23) palpitations, CAD, to go to [facility] - Patient reports he is going to transfer all of his care there. I pended a referral - please forward to front once signed. documented in this encounter Plan of Treatment Upcoming Encounters Date Type Department Care Team (Late st Contact Info) Description 10/04/2024 9:50 EST Appointment [facility] Pre-Surgical Testing [address] [place] [address] [phone] 10/14/2024 11:00 EST Hospital Encounter [facility] OR [address] [place] [address] [phone] Clemente Gerardo MD [address] [place] [address] [phone] 10/14/2024 11:00 EST - 10/14/2024 14:35 EST Surgery [facility] OR [address] [place] [address] [phone] Clemente Gerardo MD [address] [place] [address] [phone] Implantation of inflatable penile prosthesis [40184 (CPT??)] 10/17/2024 9:00 EST Telemedicine [facility] [phone] Nurse Call, [facility] Urology 10/31/2024 15:00 EST Post-op Visit [facility] [phone] Clemente Gerardo MD [address] [place] [phone] 12/06/2024 10:[address] [facility] [address] [place] [address] Spike Puentes MD [address] [place] [phone] Scheduled Procedures Name Priority Associated Diagnoses Date/Ti me INSERTION, PENILE PROSTHESIS, INFLATABLE, 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 10/14/2024 11:00 EST Scheduled Referrals Name Type Priority Associated Diagnoses Order Schedule AMB CONS/FOLLOW UP CARDIOLOGY Outpatient Referral Routine/Next Available Palpitations Expected: 07/22/2023 (Approximate), Expires: 04/21/2024 documented as of this encounter Visit Diagnoses Diagnosis Palpitations- Primary Erectile dysfunction after radical prostatectomy documented in this encounter Care Teams Tour Guide Relationship Specialty Start Date End Date Marco Altamirano MD [address] [place] [address] [phone] PCP - General Family Medicine - Primary Care 03/10/23 09/13/23 documented as of this encounter
--- OUTSIDE RECORDS SUMMARY | 2024-07-19 22:11 | XMS_ITS | Encounter Summary ---
Author Organization [facility] Address [address] [place] [address] Care Team Providers Care Air Duct Mechanic Name Role Phone Marco Altamirano MD Primary Care Provider [phone] Reason for Referral * Consult (Routine/Next Available) - Closed Specialty Diagnoses / Procedures Referred By Yi t Referred To Contact Diagnoses Testosterone deficiency Marco Altamirano MD [address] [place] [address] [address] [place] [address] Referral ID Status Reason Start Date Expiration Date V isits Requested Visits Authorized [id number] Closed Specialty Services Required 04/20/2023 1 1 Question Answer Reason for Request: testosterone replacement, history of prostate cancer Reason for Visit * Reason Comments Tremors Abnormal Lab Encounter Details Date Type Department Care Team (Late st Contact Info) Description 04/20/2023 14:00 EDT Office Visit [facility] Family Medicine [address], [facility] [address] [place] [address] Marco Altamirano MD [address] [place] [address] 2 [place] [address] Testosterone deficiency (Primary Dx); Coronary artery disease involving [place] coronary artery of [place] heart without angina pectoris; Tremor Social History Tobacco Use Types Packs/Day Years Used Date Smoking Tobacco: Former Smokeless Tobacco: Never Tobacco Cessation:Counseling Given: Not [...] Sign Reading Time Taken Comments Blood Pressure 140/80 04/20/2023 1409 EDT Pulse 76 04/20/2023 1409 EDT Temperature 36.8 ??C (98.2 ??F) 04/20/2023 1409 EDT Respiratory Rate 16 04/20/2023 1409 EDT Oxygen Saturation - - Inhaled Oxygen Concentration - - Weight 111.6 kg (246 lb) 04/20/2023 1409 EDT Height 180.3 cm (5' 11) 04/20/2023 1409 EDT Body Mass Index 34.31 04/20/2023 1409 EDT documented in this encounter Functional Status [...] as of this encounter Progress Notes * Marco Altamirano MD - 04/20/2023 1400 EDT . Patient Name: Roland Vega Age: 73 y.o. Date: 04/20/23 ASSESSMENT/PLAN: Problem List Items Addressed This Visit Cardiac/Vasculature Coronary artery disease involving [place] coronary artery of [place] heart without angina pectoris (Chronic) Discussed rationale for PPI use on plavix given his GI bleed history. Recommend continued protonix therapy pending further research into H2 therapy. Endocrine/Metabolic Testosterone deficiency - Primary (Chronic) Hesitant to continue manager long term care testosterone due to risks including hx of CAD, stroke, prostate cancer s/p prostatectomy. Referral to urology placed. Relevant Orders AMB CONS/FOLLOW UP UROLOGY Neurological Tremor (Chronic) Resting tremor on exam. Unclear etiology. Requesting records from [facility] Neuro A total of 50 minutes was spent in reviewing medical history, performing examination and evaluation, counseling, ordering and interpreting tests, care coordination, and documenting clinical information on the day of the encounter. For any new medications prescribed today, patient was educated about indications for the medication, how to take the medication and potential side effects of the medications. Counseling given: Not Answered SUBJECTIVE Roland Vega is a 73 y.o. male here for testosterone deficiency Takes testosterone for depression, sexual health Unwilling to go off this, it really helps his mood, ask his Discussed risks especially with heart and prostate Is on a ketone diet, helps his lipids Takes asa and plavix after his stenting Wants to go off protonix Discussed risks, including GI bleed Resting tremor for years, has seen neurology, doesn't want to be told it's parkinsons, has seen neurology but they were unhelpful Review of Systems ALLERGIES/INTOLERANCES Allergies Allergen Reactions ??? Other - See Comments ??? Lisinopril Swelling of tongue ??? Sulfa (Sulfonamide Antibiotics) Shortness Of Breath and Swelling ??? Cyclobenzaprine Other reaction(s): Unknown ??? Ibuprofen Swelling Other reaction(s): edema ??? Naproxen Sodium Swelling Other reaction(s): edema ??? Tramadol Other (See Comments) Other reaction(s): DIZZINESS OBJECTIVE Vitals: 04/20/23 1409 BP: 140/80 BP Cuff Location: Right arm BP Patient Position: Sitting BP Cuff Sizes: Adult, large Pulse: 76 Resp: 16 Temp: 36.8 ??C (98.2 ??F) TempSrc: Oral Weight: (!) 111.6 kg (246 lb) Height: 180.3 cm (71) General appearance - alert, well appearing Neuro: CN 2-12 grossly normal, resting tremor bilateral hands Respiratory- no increased work of breathing Heart - normal rate Psych: normal judgement and insight, mood and affect normal Marco Altamirano MD documented in this encounter Miscellaneous Notes * Assessment & Plan Note - Marco Altamirano MD - 04/20/2023 1558 EDTAssociated Problem(s): Tremor Resting tremor on exam. Unclear etiology. Requesting records from [facility] * Assessment & Plan Note - Marco Altamirano MD - 04/20/2023 1545 EDTAssociated Problem(s): Testosterone deficiency Hesitant to continue senior care testosterone due to risks including hx of CAD, stroke, prostate cancer s/p prostatectomy. Referral to urology placed. * Assessment & Plan Note - Marco Altamirano MD - 04/20/2023 1541 EDTAssociated Problem(s): Coronary artery disease involving [place] coronary artery of [place] heart without angina pectoris Discussed rationale for PPI use on plavix given his GI bleed history. Recommend continued protonix therapy pending further research into H2 therapy. documented in this encounter Plan of Treatment Upcoming Encounters Date Type Department Care Team (Late st Contact Info) Description 10/04/2024 9:[address] [facility] Pre-Surgical Testing [address] [place] [address] 10/14/2024 11:00 EST Hospital Encounter [facility] OR [address] [place] [address] Clemente Gerardo MD [address] [facility], Level [address] [place] [phone] 10/14/2024 11:00 EST - 10/14/2024 14:35 EST Surgery [facility] OR [address] [place] [address] [phone] Clemente Gerardo MD [address] [place] [phone] Implantation of inflatable penile prosthesis [39454 (CPT??)] 10/17/2024 9:00 EST Telemedicine [facility] Urology [address] [phone] Nurse Call, [facility] Urology 10/31/2024 15:00 EST Post-op Visit [facility] Urolog[address] [phone] Clemente Gerardo MD [address] [place] [phone] 12/06/2024 10:15 EST Office Visit [address] [address] Spike Puentes MD [address] [place] [phone] Scheduled Procedures Name Priority Associated Diagnoses Date/Ti me INSERTION, PENILE PROSTHESIS, INFLATABLE, 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 10/14/2024 11:00 EST Scheduled Referrals Name Type Priority Associated Diagnoses Order Schedule AMB CONS/FOLLOW UP UROLOGY Outpatient Referral Routine/Next Available Testosterone deficiency Expected: 05/20/2023 (Approximate), Expires: 04/20/2024 documented as of this encounter Visit Diagnoses Diagnosis Testosterone deficiency- Primary Other testicular hypofunction Coronary artery disease involving [place] coronary artery of [place] heart without angina pectoris Tremor Abnormal involuntary movements Erectile dysfunction after radical prostatectomy documented in this encounter Care Teams Air Duct Mechanic Relationship Specialty Start Date End Date Marco Altamirano MD [address] [place] [phone] PCP - General Family Medicine - Primary Care 03/10/23 09/13/23 documented as of this encounter
--- OUTSIDE RECORDS SUMMARY | 2024-07-19 22:11 | XMS_ITS | Encounter Summary ---
Author Organization [facility] Address [address] [place] [address] Care Team Providers Care Air Conditioning Unit Tester Name Role Phone Marco Aleman MD Primary Care Provider [phone] Encounter Details Date Type Department Care Team (Latest Contact Info) Description 01/13/2024 Transcribe Orders [facility] Lab - Main [place] [address] [place] [address] Marco Aleman MD [address] [facility] [address] [place] [address] Diarrhea of presumed infectious origin (Primary Dx) Social History Tobacco Use [...] Appointment [facility] Pre-Surgical Testing [address] [place] [address] [phone] 10/14/2024 11:00 EST Hospital Encounter [facility] OR [address] [place] [phone] Clemente Gerardo MD [address] [place] [phone] 10/14/2024 11:00 EST - 10/14/2024 14:35 EST Surgery [facility] OR [address] [place] [address] [phone] Clemente Gerardo MD [address] [place] [phone] Implantation of inflatable penile prosthesis [37375 (CPT??)] 10/17/2024 9:00 EST Telemedicine [address] [phone] Nurse Call, [facility] Urology 10/31/2024 15:00 EST Post-op Visit [address] [phone] Clemenet Gerardo MD 111 [facility], [address] [place] [phone] 12/06/2024 10:15 EST Office Visit [facility] [address] [place], [place] [phone] Spike Puentes MD [address] [place] [phone] Scheduled Procedures Name Priority Associated Diagnoses Date/Ti me INSERTION, PENILE PROSTHESIS, INFLATABLE, 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 10/14/2024 11:00 EST documented as of this encounter Procedures Procedure Name Priority Date/Time Associated Diagnosis Comments GIARDIA/CRYPTO ANTIGEN Routine 01/13/2024 16:33 EDT Diarrhea of presumed infectious origin FECAL LACTOFERRIN FOR WBCS Routine 01/13/2024 16:33 EDT Diarrhea of presumed infectious origin documented in this encounter Results * GIARDIA/CRYPTO ANTIGEN (01/13/2024 16:33 EDT) Pathologist [facility] Giardia duodenalis Negative Negative 2023 19:39 EDT [facility] LAB CRYPTOSPORIDIUM PARVUM Negative Negative 01/13/2024 19:39 EDT [facility] LAB PARASITE SPECIMEN DESCRIPTION Soft 01/13/2024 19:39 EDT [facility] Feces SPECIMEN FROM RECTUM / Unknown Stool Collect / Unknown 01/13/2024 16:33 EDT 01/13/2024 16:33 EDT Marco Aleman MD MICROBIOLOGY - GENER AL ORDERABLES [facility] [address] [place] [address] * FECAL LACTOFERRIN FOR WBCS, QUALITATIVE (01/13/2024 16:33 EDT) Fecal Lactoferrin for WBC Result Negative 01/13/2024 22:28 EDT [facility] Feces SPECIMEN FROM RECTUM / Unknown Stool Collect / Unknown 01/13/2024 16:33 EDT 01/13/2024 16:33 EDT Marco Aleman MD MICROBIOLOGY - GENER AL ORDERABLES [facility] [address] [place] [address] documented in this encounter Visit Diagnoses Diagnosis Diarrhea of presumed infectious origin- Primary Erectile dysfunction after radical prostatectomy documented in this encounter Care Teams Air Conditioning Unit Tester Relationship Specialty Start Date End Date Marco Aleman MD 26 [facility] [address] [place] [phone] PCP - General Emergency Medicine 12/07/23 documented as of this encounter
--- OUTSIDE RECORDS SUMMARY | 2024-07-19 22:11 | XMS_ITS | Encounter Summary ---
Author Organization [facility] Address [address] [place] [address] Care Team Providers Care Safety Engineer Pressure Vessels Name Role Phone Marco Aleman MD Primary Care Provider [phone] Reason for Visit * Auth/Cert (Routine) Specialty Diagnoses / Procedures Referred By Yi cummings Referred To Contact Diagnoses Chronic pain of left knee Chronic pain of left knee [M25.562, G89.29] Procedures MI ARTHROSCOPY KNEE REMOVAL LOOSE/FOREIGN BODY MI ARTHRS KNEE W/MENISCECTOMY MED&LAT W/SHAVING MI ARTHRS KNEE DEBRIDEMENT/SHAVING ARTCLR CRTLG MI ARTHROSCOPY KNEE SYNOVECTOMY LIMITED SPX ARTHROSCOPY, KNEE, WITH LOOSE OR FOREIGN BODY REMOVAL MENISCECTOMY, KNEE, MEDIAL AND LATERAL, ARTHROSCOPIC, WITH ARTICULAR CARTILAGE SHAVING ARTHROSCOPY, KNEE, WITH DEBRIDEMENT OR SHAVING OF ARTICULAR CARTILAGE ARTHROSCOPY, KNEE, WITH LIMITED SYNOVECTOMY Referral ID Status Reason Start Date Expiration Date Visits Re quested Visits Authorized [id number] 1 1 Encounter Details Date Type Department Care Team (Late st Contact Info) Description 02/16/2024 11:15 EDT - 02/16/2024 16:56 EDT Hospital Encounter [facility] Operating Room [address] [place] [address] Asad Patel MD [address] [facility] [address] [place], [place] [address] Discharge Disposition: Home or Self Care Social [...] Sign Reading Time Taken Comments Blood Pressure 123/74 02/16/2024 1632 EDT Pulse - - Temperature 36.4 ??C (97.6 ??F) 02/16/2024 1631 EDT Respiratory Rate 12 02/16/2024 1632 EDT Oxygen Saturation 96% 02/16/2024 1632 EDT Inhaled Oxygen Concentration - - Weight [...] additional Tylenol if on Vicodin, Percocet, or Taylor unless instructed to by a doctor No [...] chest pain, difficulty breathing Office Contact Number: [phone] You had tylenol 975 mg at 4 [...] daily. 90 Tablet 3 10/16/2022 DIABETIC SUPPLIES, MISCELLAN. MISC Syringe 3cc 02/17/2017 diazePAM (VALIUM) 5 mg tablet Take 1-2 tabs 1 hr prior to flights and before procedure 10 Tablet 03/12/2023 famotidine (PEPCID) 40 mg tablet Take 1 Tablet by mouth daily. lamoTRIgine (LAMICTAL) 25 mg tablet One po bid 180 Tablet 5 02/22/2023 LANCETS & BLOOD GLUCOSE STRIPS [facility] [place] test strips and lancets for glucose monitor , Sig: test once a day test once a day 09/20/2018 Magnesium 250 mg tablet Take 500 mg by mouth daily. niacin (NICOTINIC ACID) 100 mg tablet Take 1 Tablet by mouth daily. nitroGLYCERIN (NITROSTAT) 0.[address] 1 Tablet under the tongue as needed. 07/07/2014 Bzkpp-7-ZEE-EPA-Fish Oil 1,000 (120-180) mg capsule Take 1,000 mg by mouth 2 times daily. POTASSIUM ACETATE MISC 90 mg [facility] (non-drug; combo route) route daily. propRANolol (INDERAL) [...] patch for palpitations, CP, and SOB Cancer ([facility]) prostates and skin cancer Cerebral artery occlusion with cerebral infarction ([facility]) 2018 01/30/23-Acute ischemic left MCA stroke. no residual deficits Chest pain 01/30/23- currently has zio patch for palpitations, CP, and SOB Claustrophobia 01/30/23- in closed room Colon polyp Exercise involving housework GERD (gastroesophageal reflux disease) 01/30/23- controlled w/ Protonix, sleeps on side for comfort History of general anesthesia Hyperlipidemia Hypertension 01/30/23- well controlled per pt LA (myocardial infarction) ([facility]) 2007 x2. 2007 & 2011. JANET x4 Poor dentition 01/30/23- reports having 2 broken teeth Rash 01/30/23- eczema on face Seizures ([facility]) 2019 01/30/23- well controlled on [...] CARDIAC CATHERIZATION 12/2004 normal - Dr. Evans [facility] COLONOSCOPY 12/2004 WNL - Dr. Turcios f/u 10 yrs CORONARY ANGIOPLASTY WITH STENT PLACEMENT 2010 NSTEMI s/p JANET FOOT SURGERY Right tendon surgery RADICAL PROSTATECTOMY 12/2004 Laparoscopic radical prostatectomy, umbilical hernia repair - Dr. Encinas [facility] SINUS SURGERY nasal / sinus surgery Allergies [...] 1 Tablet by mouth daily. DIABETIC SUPPLIES, Rooftop MediaCELLAN. MISC Syringe 3cc (Patient not taking: Reported [...] 1 Tablet under the tongue as needed. Aursh-5-FMM-EPA-Fish Oil 1,000 (120-180) mg capsule Take 1,000 [...] detail. * Asad Patel MD - 02/16/2024 1155 EDT The patient presents today for surgical [...] patch for palpitations, CP, and SOB Cancer ([facility]) prostates and skin cancer Cerebral artery occlusion with cerebral infarction ([facility]) 2018 01/30/23-Acute ischemic left MCA stroke. no residual deficits Chest pain 01/30/23- currently has zio patch for palpitations, CP, and SOB Claustrophobia 01/30/23- in closed room Colon polyp Exercise involving housework GERD (gastroesophageal reflux disease) 01/30/23- controlled w/ Protonix, sleeps on side for comfort History of general anesthesia Hyperlipidemia Hypertension 01/30/23- well controlled per pt LA (myocardial infarction) ([facility]) 2007 x2. 2008 & 2011. JANET x4 Poor dentition 01/30/23- reports having 2 broken teeth Rash 01/30/23- eczema on face Seizures ([facility]) 2019 01/30/23- well controlled on [...] CARDIAC CATHERIZATION 12/2004 normal - [address]. Evans [facility] COLONOSCOPY 12/2004 WNL - Dr. Turcios f/u 10 yrs CORONARY ANGIOPLASTY WITH STENT PLACEMENT 2010 NSTEMI s/p JANET FOOT SURGERY Right tendon surgery RADICAL PROSTATECTOMY 12/2004 Laparoscopic radical prostatectomy, umbilical hernia repair - Dr. Encinas [facility] SINUS SURGERY nasal / sinus surgery Allergies [...] 1 Tablet by mouth daily. DIABETIC SUPPLIES, Rooftop MediaCELLAN. MISC Syringe 3cc (Patient not taking: Reported [...] 1 Tablet under the tongue as needed. Gaqva-2-BJH-EPA-Fish Oil 1,000 (120-180) mg capsule Take 1,000 [...] Surgeon - Asad Patel MD - 02/16/2024 5444 EDT OPERATIVE REPORT PATIENT NAME: Rloand Vega DATE OF : 52 SURGEON: Frida Patel MD SEISMIC PLOTTER: LAZARO Birch DATE OF SURGERY: 02/16/24 PREOPERATIVE [...] the end of the case. A skilled miller first was necessary to complete the procedure in [...] day before if a change occurs) Roland Marisela Vega has been instructed as follows regarding [...] anxiety X LANCETS & BLOOD GLUCOSE STRIPS MIS test [...] 1 Tablet under the tongue as needed. Urfxw-1-SIG-EPA-Fish Oil 1,000 (120-180) mg capsule Take 1,000 [...] by mouth daily. X Instructions for Roland Vega's Procedure at [facility] . These instructions are [...] any items. Valuables, valenzuela or credit cards. [facility] is not responsible for any lost items during your hospital visit. If you experience fevers, swelling, redness, rash or a break in your skin prior to your surgery contact your surgeon. Arriving for your procedure: Enter through the main entrance, and check in at the patient registration information desk. They will take your name and let us know you have arrived. A patient space and storage clerk will then verify your information and give you an identification bracelet. You will then be directed to the Health Records Technology Teacher waiting area around the corner to check [...] Note - Asad Patel MD - 02/16/2024 1417 EDT Date: 02/16/2024 Location: [facility] [place] Name: Roland Vega, : 1950, Diagnosis [...] (Active) Wound 02/16/24 Left Knee (Active) Staff: Boiler Testing Technician: Clemencia Cedeño RN Relief Scrub: Avinash Rosas RN Scrub Person: Leatha Lopez Indications: Roland Vgea is an 73 y.o. male who is [...] Info) Description 10/04/2024 9:50 EST Appointment [facility] Pre-Surgical Testing [address] [place] [address] [phone] 10/14/2024 11:00 EST Hospital Encounter [facility] OR [address] [place] [address] [phone] Clemente Gerardo MD [address] [place] [phone] 10/14/2024 11:00 EST - 10/14/2024 14:35 EST Surgery [facility] OR [address] [place] [address] [phone] Clemente Gerardo MD [address] [place] [phone] Implantation of inflatable penile prosthesis [23604 (CPT??)] 10/17/2024 9:00 EST Telemedicine [facility] - [address] [phone] Nurse Call, [facility]rology 10/31/2024 15:00 EST Post-op Visit [facility] - [facility] [address] [place] [address] Clemente Gerardo MD [address] [facility], [address] [place] [phone] 12/06/2024 10:15 EST Office Visit [facility] [address] [place] [address] Spike Puentes MD [address] [place] [phone] Scheduled Procedures Name Priority Associated Diagnoses Date/Ti [...] EDT) 02/17/2024 15:1 5 EDT Scan 2 Infant And Toddler Teacher PROCEDURE/MINOR BROOKE GICAL ORDERABLES documented in this [...] (only) Given 02/16/2024 15:58 EDT 975 mg fentaNYL citrate (PF) injection 50 mcg 50 [...] Rate Change 02/16/2024 14:59 EDT 100 mL/hr oxyCODONE (ROXICODONE) immediate release tablet 5-10 mg 5-10 mg, oral, EVERY 30 MINUTES PRN, 2 doses, Starting on Thu02/16/24 at 1431, Until Thu02/16/24 at 190, Pain, Routine, Recovery (only) Given 02/16/2024 15:58 [...] Routine, Preprocedure 1208 (Hold - Provide r: Becky Bowers RN - Reason: Other - Comment: [...] Count Last Ordered Date First Ordered Date BUPivacaine HCl 0.5 % (5 mg/mL) injection 1 02/16/2024 ceFAZolin in dextrose 5 % (A NCEF) IVPB DUPLEX 2,000 mg 1 02/16/2024 chlorhexidine gluconate 2 % cloth 1 Each 1 02/16/2024 fentaNYL citrate (PF) injection 50 mcg 1 glycopyrrolate (ROBINUL) injection 0.2 mg 1 02/16/2024 lactated Ringers irrigation solution 01/31 lidocaine (PF) 10 mg/mL (1 % ) injection 2 mg 1 02/16/2024 Discharge Count Last Ordered Date First Orde red Date DISCHARGE PATIENT 1 02/16/2024 documented in this encounter Care Teams Safety Engineer Pressure Vessels Relationship Specialty Start Date End Date Marco Aleman MD 26 [facility] [address] [place] [address] PCP - General Emergency Medicine 12/07/23 documented as of this encounter
--- OUTSIDE RECORDS SUMMARY | 2024-07-19 22:11 | XMS_ITS | Encounter Summary ---
Author Organization [facility] Address [address] [place] [address] Care Team Providers Care Behavioral Specialist Name Role Phone Marco Altamirano MD Primary Care Provider Marco Aleman MD Primary Care Provider Encounter Details Date Type Department Care Team (Late st Contact Info) Description 03/10/2023 Lab Requisition [facility] Pathology & Laboratory Medicine - [facility] [address] [place] [address] Outr Resulting Lab, Provider Social History Tobacco Use Types Packs/Day Years [...] [facility] Pre-Surgical Testing [address] [place] [address] [phone] 10/14/2024 11:00 EST Hospital Encounter [facility] OR [address] [place] [address] [phone] Clemente Gerardo MD [address] [place] [address] [phone] 10/14/2024 11:00 EST - 10/14/2024 14:35 EST Surgery [facility] OR [address] [place] [address] [phone] Clemente Gerardo MD [address] [place] [address] [phone] Implantation of inflatable penile prosthesis [75206 (CPT??)] 10/17/2024 9:00 EST Telemedicine [facility] [address] [phone] Nurse Call, [facility] Urology 10/31/2024 15:00 EST Post-op Visit [address] [phone] Clemente Gerardo MD 111 [facility], Level 5 [place] [phone] 12/06/2024 10:15 EST Office Visit [facility] Ophthalmology - [place] [address] [place], [place] 295521 Spike Puentes MD [address] [place] [phone] Scheduled Procedures Name Priority Associated Diagnoses Date/Ti me INSERTION, PENILE PROSTHESIS, INFLATABLE, 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 10/14/2024 11:00 EST documented as of this encounter Procedures Procedure Name Priority Date/Time Associated Diagnosis Comments TESTOSTERONE Routine 03/10/2023 8:17 EDT documented in this encounter Results * TESTOSTERONE (03/10/2023 8:17 EDT) Testosterone 343 229 - 902 ng/dL 03/11/2023 10:26 EDT [facility] Blood VENOUS BLOOD / Unknown 03/10/2023 8:17 EDT 03/10/2023 17:04 EDT Narrative [facility] - 03/11/2023 10:26 EDT The results of this assay can be falsely elevated due to the consumption of Biotin. Provider Outr Resulting Lab CHEMISTRY & BLOOD GAS ORDERABLES [facility] [address] [place] [address] documented in this encounter Visit Diagnoses Not on filedocumented in this encounter Care Teams Behavioral Specialist Relationship Specialty Start Date End Date Marco Altamirano MD [address] [place] [address] 2 [place] [phone] PCP - General Family Medicine - Primary Care 03/10/23 09/13/23 Marco Aleman MD [address] [place] [address] [address] [place] [address] PCP - General Emergency Medicine 12/07/23 documented as of this encounter
--- OUTSIDE RECORDS SUMMARY | 2024-07-19 22:11 | XMS_ITS | Encounter Summary ---
Author Organization [facility] Address [address] [place] [address] Care Team Providers Care Ceo & Board Director Name Role Phone Marco Aleman MD Primary Care Provider [phone] Reason for Visit * Reason Onset Date Comments Other 01/08/2024 Encounter Details Date Type Department Care Team (Late st Contact Info) Description 01/08/2024 Telephone [facility]ics [facility] Medicine [address], [address] [place] [address] Asad Patel MD [address] [facility] [address] [place] [address] Other Social History Tobacco Use Types Packs/Day Years [...] encounter Miscellaneous Notes * Telephone Encounter - Teresa Thurman MA - 01/08/2024 0848 EST Patient is very claustrophobic. JPB is okay holding off on MRI. * Telephone Encounter - Teresa Thurman MA - 01/08/2024 0813 EST T/c placed to patient requesting a call back. It would be in regards to his appointment Thursday. Wondering if he would be open to us ordering a MRI to evaluate the loose body in his knee. documented in this encounter Plan of Treatment Upcoming Encounters Date Type Department Care Team (Late st Contact Info) Description 10/04/2024 9:50 EST Appointment [facility] Pre-Surgical Testing [address] [place], [place] 368001 10/14/2024 11:00 EST Hospital Encounter [facility] OR [address] [place], [place] [phone] Clemente Gerardo MD 111 [facility], Level [address] [place] [phone] 10/14/2024 11:00 EST - 10/14/2024 14:35 EST Surgery [facility] OR [address] [place] [address] [phone] Clemente Gerardo MD [address] [place] [address] [phone] Implantation of inflatable penile prosthesis [44784 (CPT??)] 10/17/2024 9:00 EST Telemedicine [facility] [address] [phone] Nurse Call, [facility] Urology 10/31/2024 15:00 EST Post-op Visit [address] [phone] Clemente Gerardo MD [address] [place] [address] [phone] 12/06/2024 10:[address] [facility] [address] [place] [address] Spike Puentes MD 58 [place] [phone] Scheduled Procedures Name Priority Associated Diagnoses Date/Ti me INSERTION, PENILE PROSTHESIS, INFLATABLE, 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 10/14/2024 11:00 EST documented as of this encounter Visit Diagnoses Not on filedocumented in this encounter Care Teams Ceo & Board Director Relationship Specialty Start Date End Date Marco Aleman MD 26 [facility] [address] [place] [address] PCP - General Emergency Medicine 12/07/23 documented as of this encounter
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
--- OUTSIDE RECORDS SUMMARY | 2024-07-19 22:11 | XMS_ITS | Encounter Summary ---
Author Organization [facility] Address [address] [place] [address] Care Team Providers Care Beadworker Name Role Phone Marco Aleman MD Primary Care Provider [phone] Reason for Visit * Reason Onset Date Comments Patient Outreach 01/05/2024 Encounter Details Date Type Department Care Team (Late st Contact Info) Description 01/05/2024 Telephone [facility] Urology - [address] [phone] Clemente Gerardo MD [address] [place] [address], [address] [place] [phone] Patient Outreach Social History Tobacco Use Types Packs/Day Years [...] encounter Miscellaneous Notes * Telephone Encounter - Ivett Oleary RN - 01/05/2024 1125 EST Explained to pt that he puts in the AMS 700 inflatable penile implant using an incision through penis or infrapubic * Telephone Encounter - Lorraine Lott - 01/05/2024 1101 EST Patient's , Xin calling along with patient to ask what type of procedure does Dr. Gerardo use for penile implant? Please call back to discuss. documented in this encounter Plan of Treatment Upcoming Encounters Date Type Department Care Team (Late st Contact Info) Description 10/04/2024 9:[address] [facility] Pre-Surgical Testing [address] [place], [place] 449[address] 10/14/2024 11:00 EST Hospital Encounter [facility] OR [address] [place], [place] [phone] Clemente Gerardo MD 111 [facility], Level [address] [place] [phone] 10/14/2024 11:00 EST - 10/14/2024 14:35 EST Surgery [facility] OR [address] [place] [address] [id number] Clemente Gerardo MD [address] [place] [address] [phone] Implantation of inflatable penile prosthesis [[id number] (CPT??)] 10/17/2024 9:00 EST Telemedicine [facility] Urology [address] [phone] Nurse Call, [facility] Urology 10/31/2024 15:00 EST Post-op Visit [address] [phone] Clemente Gerardo MD [address] [place] [address] [phone] 12/06/2024 10:15 EST Office Visit [facility] [address] [place] [address] Spike Puentes MD 58 [place] [phone] Scheduled Procedures Name Priority Associated Diagnoses Date/Ti me INSERTION, PENILE PROSTHESIS, INFLATABLE, 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 10/14/2024 11:00 EST documented as of this encounter Visit Diagnoses Not on filedocumented in this encounter Care Teams Beadworker Relationship Specialty Start Date End Date Marco Aleman MD [address] [place], [place] [phone] PCP - General Emergency Medicine 12/07/23 documented as of this encounter
--- OUTSIDE RECORDS SUMMARY | 2024-07-19 22:11 | XMS_ITS | Encounter Summary ---
Author Organization [facility] Address [address] [place] [address] Care Team Providers Care Line Supply Name Role Phone Marco Altamirano MD Primary Care Provider Reason for Visit * Reason Onset Date Comments GI Problem 03/10/2023 Fatigue 03/10/2023 Fever 03/10/2023 Labs Only 03/10/2023 Encounter Details Date Type Department Care Team (Late st Contact Info) Description 03/10/2023 Telephone [facility] Medicine [place] [address] [address], [facility] 2 [place] [address] Vel Santos MD GI Problem; Fatigue; Fever; Labs Only Social History Tobacco Use Types Packs/Day Years [...] encounter Miscellaneous Notes * Telephone Encounter - Raina Trevino RN - 03/11/2023 1106 EDT Pt notified per BS note. Pt request lab be done at [facility]. Lab slip filled out, signed by BS and given to Front to fax to [facility]. * Addendum Note - Krish Cheney MD - 03/11/2023 1032 EDTAddended by: KRISH CHENEY on: 03/11/2023 10:32 Modules accepted: Orders * Telephone Encounter - Krish Cheney MD - 03/11/2023 1031 EDT Out of an overabundance of caution let's have him go to the hospital to have a cbc drawn later today. * Telephone Encounter - Raina Trevino RN - 03/11/2023 0928 EDT Uncontrolled diarrhea for 4-5 days, last night was the worst. Ridiculous fatigue. Fever has now passed. Pt took Imodium last night and this morning and reports he is feeling a little better this morning. Pt recently inpatient and had blood transfusion, see 02/10 hospital admission. Pt was also around mother in law who had similar SXS 3-4 weeks ago. Pt advised to eat brat diet, increase fluids and rest. Pt aware to call back if SXS worsen again. BS-given recent transfusion and current SXS does pt need more care than a mychart appt tomorrow am with JG? * Telephone Encounter - Elisa Ernandez - 03/10/2023 1510 EDT Pt called and said that they think they have enough info and pt has an appt on 03/12 so they will discuss it then. She said they dont need a call back * Telephone Encounter - Felicia Celis - 03/10/2023 1435 EDT Roland & Xin calling to reports he's been sick for the last wk. He reports intestinal problems, fatigue & fever. Wondering if he is having a reaction to the transfusion? He did not get Hemoglobin A1C redrawn today as his last one was done 02/10. Medicare only covers this lab once every 3 months. What would provider advise he do? documented in this encounter Plan of Treatment Upcoming Encounters Date Type Department Care Team (Late st Contact Info) Description 10/04/2024 9:50 EST Appointment [facility] Pre-Surgical Testing [address] [place] [phone] 10/14/2024 11:00 EST Hospital Encounter [facility] OR [address] [place], [place] [phone] Clemente Gerardo MD [address] [place] [address], [address] [place] [phone] 10/14/2024 11:00 EST - 10/14/2024 14:35 EST Surgery [facility] OR [address] [place] [address] [phone] Clemente Gerardo MD [address] [place] [address] [phone] Implantation of inflatable penile prosthesis [03983 (CPT??)] 10/17/2024 9:00 EST Telemedicine [facility] Urology [address] 877301 Nurse Call, [facility] Urology 10/31/2024 15:00 EST Post-op Visit [address] [phone] Clemente Gerardo MD [address] [place] [address] [phone] 12/06/2024 10:15 EST Office Visit [facility] [address] [place] [address] Spike Puentes MD 58 [place] [phone] Scheduled Procedures Name Priority Associated Diagnoses Date/Ti me INSERTION, PENILE PROSTHESIS, INFLATABLE, 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 10/14/2024 11:00 EST documented as of this encounter Visit Diagnoses Diagnosis Acute blood loss anemia- Primary Acute posthemorrhagic anemia Erectile dysfunction after radical prostatectomy documented in this encounter Care Teams Line Supply Relationship Specialty Start Date End Date Marco Altamirano MD [address] [place] [address] [phone] PCP - General Family Medicine - Primary Care 03/10/23 09/13/23 documented as of this encounter
--- OUTSIDE RECORDS SUMMARY | 2024-07-19 22:11 | XMS_ITS | Encounter Summary ---
Author Organization [facility] Address [address] [place] [address] Care Team Providers Care Valet Parker Name Role Phone Unavailable Primary Care Provider Unavailabl e Reason for Visit * Reason Onset Date Comments DME 11/26/2023 Encounter Details Date Type Department Care Team (Late st Contact Info) Description 11/26/2023 Telephone [facility] [address], [address] [place], [place] [phone] Bibiana Swain, GLORIA [address] [place] [address] DME Social History Tobacco Use Types Packs/Day Years [...] encounter Miscellaneous Notes * Telephone Encounter - Bibiana Swain RN - 11/27/2023 1146 EST In 2017, he received an XL knee tracker from [email or web address] * Telephone Encounter - Belén Donahue - 11/27/2023 0957 EST Rolnad called back about the knee brace Today is asking If we can write a DME presciption for it , the same one and have it covered by Medicare Still wanting the same brace he got here 6 years ago * Telephone Encounter - Bibiana Swain RN - 11/27/2023 0830 EST Ms. Vega called back and she would like to have the form mailed to her and the information was also given verbally over the phone. * Telephone Encounter - Bibiana Swain RN - 11/26/2023 1535 EST Ms. Vega called and left a voice mail message requesting a call back with the kind of knee braceMrAndrey Vega received 6-7 years ago. Attempted to return her call - no answer and voice mail message left relaying that we have a copy of the form filled out for the brace in 2017. Asked if she wanted a copy of the form? Or, just the name of the brace. Awaiting call back documented in this encounter Plan of Treatment Upcoming Encounters Date Type Department Care Team (Late st Contact Info) Description 10/04/2024 9:50 EST Appointment [facility] Pre-Surgical Testing [address] [place] [address] [phone] 10/14/2024 11:00 EST Hospital Encounter [facility] OR [address] [place] [address] [phone] Clemente Gerardo MD [address] [place] [address] [phone] 10/14/2024 11:00 EST - 10/14/2024 14:35 EST Surgery [facility] OR [address] [place] [address] [phone] Clemente Gerardo MD [address] [place] [address] [phone] Implantation of inflatable penile prosthesis [47214 (CPT??)] 10/17/2024 9:00 EST Telemedicine [facility] Urolog[address] [phone] Nurse Call, [facility] Urology 10/31/2024 15:00 EST Post-op Visit [facility] Urology [address] [phone] Clemente Gerardo MD [address] [place] [address] [phone] 12/06/2024 10:15 EST Office Visit [facility] Ophthalmology [facility] [address] [place] [address] Spike Puentes MD [address] [place] [phone] Scheduled Procedures Name Priority Associated Diagnoses Date/Ti me INSERTION, PENILE PROSTHESIS, INFLATABLE, 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 10/14/2024 11:00 EST documented as of this encounter Visit Diagnoses Not on filedocumented in this encounter
--- OUTSIDE RECORDS SUMMARY | 2024-07-19 22:11 | XMS_ITS | Encounter Summary ---
Author Organization [facility] Address [address] [place] [address] Care Team Providers Care Head Insulation Board Saw Operator Name Role Phone Vel Santos MD Primary Care Provider Marco Cowart MD Primary Care Provider Marco Aleman MD Primary Care Provider [phone] Reason for Visit * Reason Onset Date Comments Patient Information Update 02/12/2023 [facility] TCM Encounter Details Date Type Department Care Team (Late st Contact Info) Description 02/12/2023 Telephone [facility] Medicine [place] [address] [address] , [facility] [address] [place] [address] Vel Santos MD Patient Information Update ([facility]) Social History Tobacco Use Types Packs/Day Years [...] Sexual Orientation Straight 12/26/2021 11 :37 EST COVID-19 Exposure Response Date Recorded In the last 10 days, have yo u been in contact with someone who was confirmed or suspected to have Coronavirus/COVID-19? No / Unsure 01/14/2023 18:08 EDT documented as of this encounter Functional Status [...] Telephone Encounter - Raina Trevino RN - 02/13/2023 1619 EDT [facility] TCM Note 1.Assess for need for language assistance or support with comprehending medical information. Implement as necessary: N/A 2.Review discharge instructions, patient's understanding of hospitalization and recommended follow up: Reviewed discharge arthur with pt. Reviewed with pt need to f/u with GI, TCM scheduled with TC. 3.Review for any outstanding or scheduled lab work or imaging or any completed results still needing review (available on discharge summary): None 4.Review signs and symptoms to monitor for: Reviewed SXS to watch for and to call this office or [facility] ED if he developed the SXS 5.Inquire about any symptoms of deterioration and develop appropriate plan should the need arise: Reviewed SXS to watch for and to call this office or go to ED if he developed the SXS 6.Reconcile medications in the virtual visit. Assess for patient's understanding of any changes. Assess for ability to obtain prescriptions, barriers to follow- through: Med's reconciled with discharge ASHTYN gibson and pt's Xin (on АННА). Pt verbalized understanding to take BP daily and to only take amlodipine if BP is above 130/80. 7.Organize post-discharge outpatient services and medical equipment: None 8.Address any other concerns they may have: Pt had no further concerns 9.Follow up appt booked as a TCM within the appropriate time frame: TCM scheduled for 02/19 with TC 10.Verify secured transportation, or refer to [facility] as necessary: No transportation concerns TC-Discharge summery requests pt discuss lab results with TC. Pt had labs done yesterday. * Telephone Encounter - Talisha Arredondo - 02/12/2023 1530 EDT Admit Date: 02/10/23 Discharge Date: 02/12/23 Facility: [facility] Discharge Location: home Diagnosis: rectal bleeding From referral: Admission follow up, lower GI bleed following polypectomy documented in this encounter Plan of Treatment Upcoming Encounters Date Type Department Care Team (Late st Contact Info) Description 10/04/2024 9:50 EST Appointment [facility] Pre-Surgical Testing [address] [place] [address] [phone] 10/14/2024 11:00 EST Hospital Encounter [facility] OR [address] [place] [address] [phone] Clemente Gerardo MD [address] [place] [address] [phone] 10/14/2024 11:00 EST - 10/14/2024 14:35 EST Surgery [facility] [place] [address] [place] [address] [phone] Clemente Gerardo MD [address] [place] [address] [phone] Implantation of inflatable penile prosthesis [00072 (CPT??)] 10/17/2024 9:00 EST Telemedicine [facility] Urology [address] [address] Nurse Call, [facility] Urology 10/31/2024 15:00 EST Post-op Visit [facility] Urology [address] [phone] Clemente Gerardo MD 111 [facility], [address] [place] [phone] 12/06/2024 10:15 EST Office Visit [facility] Ophthalmology [address] [phone] Spike Puentes MD [address] [place] [phone] Scheduled Procedures Name Priority Associated Diagnoses Date/Ti me INSERTION, PENILE PROSTHESIS, INFLATABLE, 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 10/14/2024 11:00 EST documented as of this encounter Visit Diagnoses Not on filedocumented in this encounter Historical Medications * This list may reflect changes made after this encounter. Medication Sig Dispensed Refills Start Date End Date BENFOTIAMINE ORAL Take by mouth daily. POTASSIUM ACETATE MISC 90 mg by misc (non-drug; combo route) route daily. Magnesium 250 mg tablet Take 500 mg by mouth daily. vitamin E mixed/tocotrienol (VITAMIN E COMPLEX ORAL) Take 400 mg by mouth daily. ascorbic acid, vitamin C, (VITAMIN C) 500 mg tablet Take 2 Tablets by mouth daily. niacin (NICOTINIC ACID) 100 mg tablet Take 1 Tablet by mouth daily. L.acid/L.casei/B.bif/B.l on/FOS (PROBIOTIC BLEND ORAL) Take by mouth daily. 024 added in this encounter Care Teams Head Insulation Board Saw Operator Relationship Specialty Start Date End Date Vel Santos MD PCP - General 10/30/11 03/09/23 Marco Altamirano MD [address] [place] [address] [phone] PCP - General Family Medicine - Primary Care 03/10/23 09/13/23 Marco Aleman MD [address] [address] PCP - General Emergency Medicine 12/07/23 documented as of this encounter
--- OUTSIDE RECORDS SUMMARY | 2024-07-19 22:11 | XMS_ITS | Encounter Summary ---
Author Organization [facility] Address [address] [place] [address] Care Team Providers Care Associate Veterinarian Name Role Phone Marco Aleman MD Primary Care Provider [phone] Encounter Details Date Type Department Care Team (Latest Contact Info) Description 01/13/[address] [facility] Rehabilitation Therapy [address] [place] [address] [phone] Social History Tobacco Use Types Packs/Day Years [...] Progress Notes * Ping Gee, PT - 01/13/2024 1248 EDT Outpatient Rehab Plan of Care Assessment ASSESSMENT Therapy Diagnosis: Right shoulder pain, mild loss of range of motion, weakness causing impaired activities of daily living due to right shoulder injury from lifting Problem List: Decreased ROM, Decreased strength, Difficulty lifting, Impaired ADLs, Need for an independent home exercise program, and Pain Assessment: The patient is a pleasant 73-year-old male who presents with right shoulder pain that onset this summer after lifting and overuse doing some fluid clean up and was exacerbated further September with continued activity. The patient has weakness, range of motion deficits, and pain. Signs and symptoms are consistent with some concern for labrum and biceps involvement. Patient's not had any formal intervention thus far, do recommend a course of skilled physical therapy at this time Equipment Needed: None currently Barriers to Learning: None Potential Barriers to Progress: None Response to Evaluation: Well Rehabilitation Potential: Motivation/Commitment to Therapy: Good Rehabilitation Potential: Good Short-Term Goals Timeframe: 02/12/2024 1. The patient [...] pounds of household items overhead without limitation PLAN Medical Necessity: Therapy intervention is indicated in order to return to a premorbid level of function or significantly improve current level of function. Physical Therapy is recommended for: Treatment Frequency/ Duration: Weekly for 8 weeks Therapy Treatment to include: 78874 - Hot Cold Pack, G0283 - Electrical Stimulation Unsupervised, 01294 - Ultrasound, 85333 - Therapeutic Exercise, 70429 - Neuromuscular Re-education, 92813 - AquaticTherapy/Exercise, 15056 - Manual Therapy, 11047 - Therapeutic Activity, and 20623 - Self Care/Home M anagement Recommended Consults: None Development of Plan of Care: Patient participated in development of plan of care today. Plan ATTENDING PHYSICIAN: Medicare certification needed. Your signature indicates you approve the therapy goals and plan of care outlined on this document dated 01/12/2024. Thank you! Attending Physician Signature Date documented in this encounter Plan of Treatment Upcoming Encounters Date Type Department Care Team (Late st Contact Info) Description 10/04/2024 9:50 EST Appointment [facility] Pre-Surgical Testing [address] [place] [address] [phone] 10/14/2024 11:[address] [facility] OR [address] [place] [address] [phone] Clemente Gerardo MD [address] [place] [place] [address] [phone] 10/14/2024 11:00 EST - 10/14/2024 14:[address] [facility] OR [address] [place] [address] [phone] Clemente Gerardo MD [address] [place] [place] [address] [phone] Implantation of inflatable penile prosthesis [15934 (CPT??)] 10/17/2024 9:00 EST Telemedicine [facility] [address] [place], [place] [phone] Nurse Call, [facility] Urology 10/31/2024 15:00 EST Post-op Visit [facility] Urolog[address] [phone] Clemente Gerardo MD 111 [facility], [address] [place] [phone] 12/06/2024 10:15 EST Office Visit [facility] [address] [place], [place] [phone] Spike Puentes MD [address] [place] [phone] Scheduled Procedures Name Priority Associated Diagnoses Date/Ti me INSERTION, PENILE PROSTHESIS, INFLATABLE, 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 10/14/2024 11:00 EST documented as of this encounter Visit Diagnoses Not on filedocumented in this encounter Care Teams Associate Veterinarian Relationship Specialty Start Date End Date Marco Aleman MD 26 [facility] [address] [place] [address] PCP - General Emergency Medicine 12/07/23 documented as of this encounter
--- OUTSIDE RECORDS SUMMARY | 2024-07-19 22:11 | XMS_ITS | Encounter Summary ---
Author Organization [facility] Address [address] [place] [address] Care Team Providers Care Chainstitch Elastic Attacher Name Role Phone Marco Aleman MD Primary Care Provider [phone] Reason for Visit * Reason Comments Medications Refill Encounter Details Date Type Department Care Team (Late st Contact Info) Description 12/29/2023 Refill [facility] Family Medicine [facility] [address] [facility], [address] [place] [address] Marco Altamirano MD [address] [facility] [address] [place] [phone] Medications Refill Social History Tobacco [...] encounter Miscellaneous Notes * Telephone Encounter - Yi Lemon, RN - 12/29/2023 1605 EST Refill testosterone. Pt now receives his care through [facility]. Request denied. documented in this encounter Plan of Treatment Upcoming Encounters Date Type Department Care Team (Late st Contact Info) Description 10/04/2024 9:50 EST Appointment [facility] Pre-Surgical Testing [address] [place] [address] [phone] 10/14/2024 11:00 EST Hospital Encounter [facility] OR [address] [place] [address] [phone] Clemente Gerardo MD [address] [place] [address] [phone] 10/14/2024 11:00 EST - 10/14/2024 14:35 EST Surgery [facility] OR [address] [place] [address] [phone] Clemente Gerardo MD [address] [place] [address] [phone] Implantation of inflatable penile prosthesis [43558 (CPT??)] 10/17/2024 9:00 EST Telemedicine [facility] Urology [address] [phone] Nurse Call, [facility] Urology 10/31/2024 15:00 EST Post-op Visit [facility] [address] [phone] Clemente Gerardo MD 111 [facility], Level [address] [place] [phone] 12/06/2024 10:15 EST Office Visit [facility] [address] [place], [place] 873271 Spike Puentes MD [address] [place] [phone] Scheduled Procedures Name Priority Associated Diagnoses Date/Ti me INSERTION, PENILE PROSTHESIS, INFLATABLE, 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 10/14/2024 11:00 EST documented as of this encounter Visit Diagnoses Not on filedocumented in this encounter Care Teams Chainstitch Elastic Attacher Relationship Specialty Start Date End Date Marco Aleman MD 26 [facility] [address] [place] [address] PCP - General Emergency Medicine 12/07/23 documented as of this encounter
--- OUTSIDE RECORDS SUMMARY | 2024-07-19 22:11 | XMS_ITS | Encounter Summary ---
Author Organization [facility] Address [address] [place] [address] Care Team Providers Care Architectural Job Captain Name Role Phone Unavailable Primary Care Provider Unavailabl e Encounter Details Date Type Department Care Team (Latest Contact Info) Description 09/14/2023 Transcribe Orders [facility] Lab - Main [place] [address] [place] [address] [phone] Uriah Ramirez MD [address] [place] [address] [place] [phone] Malignant neoplasm of prostate (HCC-CMS) (Primary Dx) Social History Tobacco Use Types [...] EST Appointment [facility] Pre-Surgical Testing [address] [place] [address] [phone] 10/14/2024 11:00 EST Hospital Encounter [facility] OR [address] [place] [address] [phone] Clemente Gerardo MD [address] [place] [address] [phone] 10/14/2024 11:00 EST - 10/14/2024 14:35 EST Surgery [facility] OR [address] [place] [address] [phone] Clemente Gerardo MD [address] [place] [address] [phone] Implantation of inflatable penile prosthesis [24217 (CPT??)] 10/17/2024 9:00 EST Telemedicine [facility] Urolog[address] [phone] Nurse Call, [facility] Urology 10/31/2024 15:00 EST Post-op Visit [address] [phone] Clemente Gerardo MD 111 [facility], Level [address] [place] [phone] 12/06/2024 10:15 EST Office Visit [facility] [address] [place] [address] Spike Puentes MD [address] [place] [phone] Scheduled Procedures Name Priority Associated Diagnoses Date/Ti me INSERTION, PENILE PROSTHESIS, INFLATABLE, 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 10/14/2024 11:00 EST documented as of this encounter Visit Diagnoses Diagnosis Malignant neoplasm of prostate (HCC-CMS)- Primary Malignant neoplasm of prostate Erectile dysfunction after radical prostatectomy documented in this encounter
--- OUTSIDE RECORDS SUMMARY | 2024-07-19 22:11 | XMS_ITS | Encounter Summary ---
Author Organization [facility] Address [address] [place] [address] Care Team Providers Care Fluorescent Lamp Replacer Name Role Phone Marco Aleman MD Primary Care Provider [phone] Reason for Referral * PT/OT/ST (Routine/Next Available) - Authorization Not Required Specialty Diagnoses / Procedures Referred By Yi cummings Referred To Contact Rehab Therapies Diagnoses Chronic pain of left knee Asad Patel MD [address] [facility] [address] [place] [address] [facility] [address] [place] [address] Referral ID Status Reason Start Date Expiration Date Visits Requested Visits Authorized [id number] Authorization Not Required Specialty Services Required 4 1 1 Question Answer Surgery (and Date): left knee scope, DOS TBD Reason for Request: postop care, left knee scope Comments This referral may serve as a referral to occupational therapy if appropriate. Reason for Visit * Reason Comments Follow-up * Referral (Routine) - Authorization Not Required Specialty Diagnoses / Procedures Referred By Yi cummings Referred To Contact Orthopedic Surgery Diagnoses Pain in left knee Marco Aleman MD 26 [facility] [address] [place] [address] [facility] [address] [place] [address] Referral ID Status Reason Start Date Expiration Date Visits Requested Visits Authorized [id number] Authorization Not Required 1 1 Encounter Details Date Type Department Care Team (Late st Contact Info) Description 01/11/2024 16:30 EDT Office Visit [facility] Orthopedics & Sport Medicine [address], [address] [place], [place] [phone] Asad Patel MD [address] [facility] [address] [place] [address] Chronic pain of left knee [...] Progress Notes * Asad Patel MD - 01/11/2024 1630 EDT The patient presents today for surgical [...] patch for palpitations, CP, and SOB Cancer ([facility]) prostates and skin cancer Cerebral artery occlusion with cerebral infarction ([facility]) 2018 01/30/23-Acute ischemic left MCA stroke. no residual deficits Chest pain 01/30/23- currently has zio patch for palpitations, CP, and SOB Claustrophobia 01/30/23- in closed room Colon polyp Exercise involving housework GERD (gastroesophageal reflux disease) 01/30/23- controlled w/ Protonix, sleeps on side for comfort History of general anesthesia Hyperlipidemia Hypertension 01/30/23- well controlled per pt CA (myocardial infarction) ([facility]) 2007 x2. 2007 & 2010. JANET x4 Poor dentition 01/30/23- reports having 2 broken teeth Rash 01/30/23- eczema on face Seizures ([facility]) 2019 01/30/23- well controlled on Lamictal, thought [...] CARDIAC CATHERIZATION 12/2004 normal - Dr. Evans [facility] COLONOSCOPY 12/2004 WNL - Dr. Turcios f/u 10 yrs CORONARY ANGIOPLASTY WITH STENT PLACEMENT 2010 NSTEMI s/p JANET FOOT SURGERY Right tendon surgery RADICAL PROSTATECTOMY 12/2004 Laparoscopic radical prostatectomy, umbilical hernia repair - Dr. Encinas [facility] SINUS SURGERY nasal / sinus surgery Allergies [...] 1 Tablet by mouth daily. DIABETIC SUPPLIES, Flashstock. MISC Syringe 3cc (Patient not taking: Reported [...] 1 Tablet under the tongue as needed. Mansz-0-HJW-EPA-Fish Oil 1,000 (120-180) mg capsule Take 1,000 [...] as cardiology. All questions answered in detail. Asad Patel MD 01/11/2024 documented in this encounter Plan of Treatment Upcoming Encounters Date Type Department Care Team (Late st Contact Info) Description 10/04/2024 9:50 EST Appointment [facility] Pre-Surgical Testing [address] [place] [address] [phone] 10/14/2024 11:00 EST Hospital Encounter [facility] OR [address] [place] [address] [phone] Clemente Gerardo MD [address] [place] [address] [phone] 10/14/2024 11:00 EST - 10/14/2024 14:35 EST Surgery [facility] OR [address] [place] [address] [phone] Clemente Gerardo MD [address] [place] [phone] Implantation of inflatable penile prosthesis [94707 (CPT??)] 10/17/2024 9:00 EST Telemedicine [facility] Urology [address] [phone] Nurse Call, [facility] Urology 10/31/2024 15:00 EST Post-op Visit [facility] Urolog[address] [phone] Clemente Gerardo MD [address] [place] [phone] 12/06/2024 10:15 EST Office Visit [facility] Ophthalmology [facility] [address] [place] [address] Spike Puentes MD [address] [place] [phone] Scheduled Procedures Name Priority Associated Diagnoses Date/Ti me INSERTION, PENILE PROSTHESIS, INFLATABLE, 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 10/14/2024 11:00 EST Scheduled Referrals Name Type Priority Associated Diagnoses Order Schedule AMB CONS/FOLLOW UP PHYSICAL THERAPY - [facility] Outpatient Referral Routine/Next Available Chronic pain of left knee Expected: 01/18/2024 (Approximate), Expires: 01/10/2025 documented as of this encounter Visit Diagnoses Diagnosis Chronic pain of left knee- Primary Pain in joint, lower leg Erectile dysfunction after radical prostatectomy documented in this encounter Orders Case Request Count Last Ordered Date First Orde red Date CASE REQUEST OPERATING ROOM 1 01/11/2024 documented in this encounter Care Teams Fluorescent Lamp Replacer Relationship Specialty Start Date End Date Marco Aleman MD 26 [facility] [address] [place] [address] PCP - General Emergency Medicine 12/07/23 documented as of this encounter
--- OUTSIDE RECORDS SUMMARY | 2024-07-19 22:11 | XMS_ITS | Encounter Summary ---
Author Organization [facility] Address [address] [place] [address] Care Team Providers Care Steeplechase Jockey Name Role Phone Marco Aleman MD Primary Care Provider [phone] Reason for Visit * Reason Comments New Patient Visit * Referral (Routine) - Authorization Not Required Specialty Diagnoses / Procedures Referred By Yi cummings Referred To Contact Orthopedic Surgery Diagnoses Pain in left knee Marco Aleman MD [address] [place] [address] [facility] [address] [place] [address] Referral ID Status Reason Start Date Expiration Date Visits Requested Visits Authorized [id number] Authorization Not Required 1 1 Encounter Details Date Type Department Care Team (Late st Contact Info) Description 12/23/2023 9:30 EST Office Visit [facility] [place] [facility] Medicine [address], [address] [place] [address] Ame Juan, BALA [address] [facility] [address] [place] [address] [id number] Chronic pain of left knee (Primary Dx); Loose body of left knee; Neck pain, musculoskeletal Social History Tobacco Use Types Packs/Day Years [...] Sign Reading Time Taken Comments Blood Pressure - - Pulse 61 12/23/2023 0934 EST Temperature - - Respiratory Rate - - Oxygen Saturation 96% 12/23/2023 0934 EST Inhaled Oxygen Concentration - - Weight - [...] as of this encounter Progress Notes * Ame Juan, 911 EMERGENCY DISPATCHER - 12/23/2023 0930 EST CHIEF COMPLAINT: left knee pain SUBJECTIVE: Roland Vega is a 73 y.o. male with a history of left knee OA seen in the past [place] [facility], CAD on plavix, HTN, rheumatoid arthritis, asthma, GERD, hx CVA and tremor presenting today for evaluation of his left knee. Patient reports no pain at baseline but will randomly experience sharp shooting discomfort which is associated with a a palpable, mobile mass in the knee requiring him to leland pulate and then symptoms resolve. Feels something is moving around his knee cap. Knee will occasionally swell. Using tylenol for discomfort. No instability. Mentions his right shoulder bothers him, forgot to bring this up to his PCP. Pain is throughout thetop of the shoulder and into the upper back as well as through the front pec area. Pulls when he looks to the left. No numbness or tingling. ROS: See HPI above The past medical, family and social history have been reviewed in the patient chart. I spent time preparing in advance of the visit today, which included obtaining and reviewing prior history and notes from the primary care provider and/or referring providers, as well as reviewing any relevant prior imaging and tests, which I also independently interpreted. He is a former smoker. Past Medical History: Diagnosis Date Abnormal stress test 04/20/2017 s/p JANET Activity, other involving cardiorespiratory exercise 01/30/23- able to climb 2 FOS w/o SOB Amblyopia per pt-left eye Anemia 02/10/2023 Anomaly, cardiac cardiac stents Arrhythmia 01/30/23- currently has zio patch for palpitations, CP, and SOB Cancer ([facility]) prostates and skin cancer Cerebral artery occlusion with cerebral infarction ([facility]) 2018 01/30/23-Acute ischemic left MCA stroke. no residual deficits Chest pain 01/30/23- currently has zio patch for palpitations, CP, and SOB Claustrophobia 01/30/23- in closed room Colon polyp Exercise involving housework GERD (gastroesophageal reflux disease) 01/30/23- controlled w/ Protonix, sleeps on side for comfort History of general anesthesia Hyperlipidemia Hypertension 01/30/23- well controlled per pt IN (myocardial infarction) ([facility]) 2007 x2. 2008 & 2011. JANET x4 Poor dentition 01/30/23- reports having 2 broken teeth Rash 01/30/23- eczema on face Seizures ([facility]) 2019 01/30/23- well controlled on Lamictal, [...] CARDIAC CATHERIZATION 12/2004 normal - Dr. Evans [facility] COLONOSCOPY 12/2004 WNL - Dr. Turcios f/u 10 yrs CORONARY ANGIOPLASTY WITH STENT PLACEMENT 2010 NSTEMI s/p JANET FOOT SURGERY Right tendon surgery RADICAL PROSTATECTOMY 12/2004 Laparoscopic radical prostatectomy, umbilical hernia repair - Dr. Encinas [facility] SINUS SURGERY nasal / sinus surgery Allergies [...] 1 Tablet by mouth daily. DIABETIC SUPPLIES, In FlowCELLAN. MISC Syringe 3cc (Patient not taking: Reported [...] 1 Tablet under the tongue as needed. Lsswu-6-BMN-EPA-Fish Oil 1,000 (120-180) mg capsule Take 1,000 [...] No facility-administered medications prior to visit. OBJECTIVE: Pulse 61 SpO2 96% On physical exam, the patient is found to be a very pleasant and cooperative male who appears to bealert and oriented x 3. He is well-developed, well- nourished and in no significant distress. Breathing is unlabored. Skin is warm pink and dry to inspection and palpation. Exam of the left knee reveals no swelling, no deformity. No skin changes or overlying warmth. No palpable nodule today. 5/5 strength throughout with pain. Nontender through joint lines. ROM form 0-~100 degrees. No pain or laxity with varus or valgus stress. Right shoulder with full ROM, minimal pain. Rotator cuff is strong. Tender through trapezius and parascapular musculature. Radiographs of the left knee were obtained today and independently reviewed by me. Moderate/advanced tricompartmental osteoarthritis, worst in the patellofemoral compartment. There appears to be a loose body in the medial suprapatellar recess. ASSESSMENT/PLAN: 73yoM here today for evaluation of his left knee symptoms, loose body on XR today.He does have moderate/advanced OA but denies pain at baseline, only discomfort with when loose bodyis medial. I think he would benefit from arthroscopic removal and I will arrange for follow up withsurgeon. No activity restrictions at this point. Right shoulder pain appears musculature in nature. PT referral placed. Follow up if shoulder symptoms do not resolve. Procedure: Procedures This note was prepared using voice recognition software and the EMR. There may be inadvertent errors and omissions. Ame Juan APRN 12/23/2023 documented in this encounter Plan of Treatment Upcoming Encounters Date Type Department Care Team (Late st Contact Info) Description 10/04/2024 9:50 EST Appointment [facility] Pre-Surgical Testing [address] [place] [address] [phone] 10/14/2024 11:00 EST Hospital Encounter [facility] OR [address] [place] [address] [phone] Clemente Gerardo MD [address] [place] [address] [phone] 10/14/2024 11:00 EST - 10/14/2024 14:35 EST Surgery [facility] OR [address] [place] [address] [phone] Clemente Gerardo MD [address] [place] [address] [phone] Implantation of inflatable penile prosthesis [78341 (CPT??)] 10/17/2024 9:00 EST Telemedicine [address] [phone] Nurse Call, [facility] Urology 10/31/2024 15:00 EST Post-op Visit [address] [phone] Clemente Gerardo MD [address] [place] [address] [phone] 12/06/2024 10:15 EST Office Visit [facility] [address] [place] [address] Spike Puentes MD [address] [place] [phone] Scheduled Procedures Name Priority Associated Diagnoses Date/Ti me INSERTION, PENILE PROSTHESIS, INFLATABLE, 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 10/14/2024 11:00 EST documented as of this encounter Procedures Procedure Name Priority Date/Time Associated Diagnosis Comments XR KNEE LEFT 4 OR MORE VIEWS Routine 12/23/2023 9:49 EST Chronic pain of left knee documented in this encounter Results * XR KNEE LEFT 4 OR MORE VIEWS (12/23/2023 9:49 EST) Anatomical Region Laterality Modality Lower Extremities Left Computed Radio graphy 12/23/2023 9:50 EST Impressions 12/23/2023 23:59 EST Mild tricompartmental degenerative changes. THIS DOCUMENT HAS BEEN ELECTRONICALLY SIGNED BY RONNIE JAMES MD FOR ANY QUESTIONS OR CONCERNS REGARDING THIS REPORT PLEASE CALL [facility] AT [phone] Narrative 12/23/2023 23:59 EST PROCEDURE INFORMATION: Exam: XR Left Knee Exam date and time: 12/23/2023 09:50 Age: 73 years old Clinical indication: Other chronic pain; Pain in left knee; Additional info: Left knee pain TECHNIQUE: Imaging protocol: Radiologic exam of the left knee. Views: 4 or more views. COMPARISON: CR EXP CARE ANKLE LT 3V+ 04/20/2018 15:12 FINDINGS: Bones/joints: Mild tricompartmental degenerative changes. No acute fracture or subluxation. Soft tissues: Unremarkable. ?? Procedure Note Ronnie James MD - 12/23/2023 PROCEDURE INFORMATION: Exam: XR Left Knee Exam date and time: 12/23/2023 09:50 Age: 73 years old Clinical indication: Other chronic pain; Pain in left knee; Additional info: Left knee pain TECHNIQUE: Imaging protocol: Radiologic exam of the left knee. Views: 4 or more views. COMPARISON: CR EXP CARE ANKLE LT 3V+ 04/20/2018 15:12 FINDINGS: Bones/joints: Mild tricompartmental degenerative changes. No acute fracture or subluxation. Soft tissues: Unremarkable. IMPRESSION Mild tricompartmental degenerative changes. THIS DOCUMENT HAS BEEN ELECTRONICALLY SIGNED BY RONNIE JAMES MD FOR ANY QUESTIONS OR CONCERNS REGARDING THIS REPORT PLEASE CALL [facility] [phone] Ame Juan 911 EMERGENCY DISPATCHER IMG DIAGNOSTIC IMAGI NG ORDERABLES documented in this encounter Visit Diagnoses Diagnosis Chronic pain of left knee- Primary Pain in joint, lower leg Loose body of left knee Loose body in knee Neck pain, musculoskeletal Cervicalgia Erectile dysfunction after radical prostatectomy documented in this encounter Care Teams Steeplechase Jockey Relationship Specialty Start Date End Date Marco Aleman MD [address] [id number] PCP - General Emergency Medicine 12/07/23 documented as of this encounter
--- OUTSIDE RECORDS SUMMARY | 2024-07-19 22:11 | XMS_ITS | Encounter Summary ---
Author Organization [facility] Address [address] [place] [address] Care Team Providers Care Combination Operator Name Role Phone Marco Aleman MD Primary Care Provider [phone] Encounter Details Date Type Department Care Team (Latest Contact Info) Description 01/13/2024 16:31 EDT - 01/13/2024 23:59 EDT Hospital Encounter [facility] [place] [address] [place] [address] [phone] Transfer Table Operator, [facility] Discharge Disposition: Home or Self Care Social [...] No 02/10/2023 documented as of this encounter Medications at Time of Discharge [...] daily. 90 Tablet 3 10/16/2022 [facility] Sy[facility] 3cc 02/17/2017 diazePAM (VALIUM) 5 mg tablet Take 1-2 tabs 1 hr prior to flights and before procedure 10 Tablet 03/12/2023 famotidine (PEPCID) 40 mg tablet Take 1 Tablet by mouth daily. lamoTRIgine (LAMICTAL) 25 mg tablet One po bid 180 Tablet 5 02/22/2023 LANCETS & BLOOD GLUCOSE STRIPS [facility] test strips and lancets for glucose monitor , Sig: test once a day test once a day 09/20/2018 Magnesium 250 mg tablet Take 500 mg by mouth daily. niacin (NICOTINIC ACID) 100 mg tablet Take 1 Tablet by mouth daily. nitroGLYCERIN (NITROSTAT) 0.[address] 1 Tablet under the tongue as needed. 07/07/2014 Nanmn-8-MGQ-EPA-Fish Oil 1,000 (120-180) mg capsule Take 1,000 [...] daily. 06/03/2024 documented as of this encounter Discharge Disposition Disposition Code Departure Means Destination Home or Self Care documented in this encounter Plan of Treatment Upcoming Encounters Date Type Department Care Team (Late st Contact Info) Description 10/04/2024 9:50 EST Appointment [facility] Pre-Surgical Testing [address] [place] [phone] 10/14/2024 11:00 EST Hospital Encounter [facility] OR [address] [place] [address] [phone] Clemente Gerardo MD [address] [place] [address] [phone] 10/14/2024 11:00 EST - 10/14/2024 14:35 EST Surgery [facility] OR [address] [place] [address] [phone] Clemente Gerardo MD [address] [place] [address] [phone] Implantation of inflatable penile prosthesis [94304 (CPT??)] 10/17/2024 9:00 EST Telemedicine [address] [phone] Nurse Call, [facility] Urology 10/31/2024 15:00 EST Post-op Visit [address] [phone] Clemente Gerardo MD [address] [place] [address] [phone] 12/06/2024 10:15 EST Office Visit [facility] [address] [phone] Spike Puentes MD [address] [place] [address] [phone] Scheduled Procedures Name Priority Associated Diagnoses Date/Ti me INSERTION, PENILE PROSTHESIS, INFLATABLE, 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 10/14/2024 11:00 EST documented as of this encounter Visit Diagnoses Not on filedocumented in this encounter Care Teams Combination Operator Relationship Specialty Start Date End Date Marco Aleman MD [address] [place] [address] [address] [place] [address] PCP - General Emergency Medicine 12/07/23 documented as of this encounter
--- OUTSIDE RECORDS SUMMARY | 2024-07-19 22:11 | XMS_ITS | Encounter Summary ---
Author Organization [facility] Address [address] [place] [address] Care Team Providers Care Fence Laborer Name Role Phone Vel Santos MD Primary Care Provider Unava ilable Reason for Visit * Reason Comments Other TCM Encounter Details Date Type Department Care Team (Late st Contact Info) Description 02/19/2023 14:30 EDT Office Visit [facility] Family Medicine [facility] [address] [place] [address] Vel Santos MD Acute blood loss anemia (Primary Dx); Acute reaction to situational stress Social History Tobacco Use Types Packs/Day Years [...] Sign Reading Time Taken Comments Blood Pressure 124/74 02/19/2023 1436 EDT Pulse 76 02/19/2023 1436 EDT Temperature - - Respiratory Rate 16 02/19/2023 1436 EDT Oxygen Saturation 97% 02/19/2023 1436 EDT Inhaled Oxygen Concentration - - Weight 107 kg (236 lb) 02/19/2023 1436 EDT Height 180.3 cm (5' 11) 02/19/2023 1436 EDT Body Mass Index 32.92 02/19/2023 1436 EDT documented in this encounter Functional Status [...] Dispensed Refills Start Date End Da te lamoTRIgine (LAMICTAL) 25 mg tablet One po bid 180 Tablet 5 02/22/2023 documented in this encounter Progress Notes * Vel Santos MD - 02/19/2023 1430 EDT Images from the original note were not included. Primary Care Office Visit Assessment & Plan Diagnoses and all orders for this visit: Acute blood loss anemia Comments: Clinically stable at this point. Will check CBC. Discussed rebuilding with diet with red meat, ironsupplement Orders: - COMPLETE BLOOD COUNT AND DIFFERENTIAL Acute reaction to situational stress Comments: Patient is very traumatized by the events of his recent hospitalization. He plans to write a letterto the hospital recommending improvements No follow-ups on file. Patient education was direct. Barriers were assessed and addressed as needed. I spent a total of 35 minutes on the date of this encounter meeting with the patient and reviewing documentation/coordinating care as described in the above note. Unless otherwise noted, no procedures were performed at the time of the visit. Rena Watkins is a 72 y.o. male presenting with Other (TCM) HPI *This patient is here in follow-up. He had a colonoscopy done at [facility]. Approximately 1 week later he began to have bloody stools. This progressed and he was admitted to the hospital. All told he required 4 units of blood before things were stable. He ended up having a colonoscopy doneto verify there was no active bleeding. He is very traumatized by these events. He relates how he had a consultative episode with his res counselor at the time of the colonoscopy because of Roland's refusal to have insurance involved in his care. This left a bad feeling in his mouth. When he returned to the hospital he felt as if they were not responding to him quickly enough with hours wait in the emergency room, active bleeding that was not contained on the floor with nurses having to bridle be interns into transfusing him. He said his daughter who is a nurse had to remind him to do orthostatic vitals through he was still volume depleted actively advocate for him. He says that at one point they were going to do a follow-up c olonoscopy his son had to have his work connections pressure the GI department to do it. Data reviewed this visit: problem list/past medical history, current medications and allergies ROS - See HPI Objective BP 124/74 (BP Cuff Location: Left arm, BP Patient Position: Sitting, BP Cuff Sizes: Adult, large) Pulse 76 Resp 16 Ht 180.3 cm (71) Wt (!) 107 kg (236 lb) SpO2 97% BMI 32.92 kg/m?? Physical Exam Well seeming male here with his . Lengthy conversation about the events at the hospital. This discussion included the topic of residence being involved and his care (given past experiences he is against this). ?? Component Ref Range & Units 7 d ago (02/12/23) 8 d ago (02/11/23) 8 d ago (02/11/23) 8 d ago (02/11/23) 8 d ago (02/11/23) 9 d ago (02/10/23) 9 d ago (02/10/23) WBC 4.00 - 10.40 K/cmm 6.05 7.20 7.25 7.50 7.50 5.39 RBC 4.36 - 5.78 M/cmm 2.66??Low?? 2.73??Low?? 2.97??Low?? 3.39??Low?? 3.44??Low?? 3.54??Low?? Hemoglobin 13.8 - 17.3 gm/dL 8.4??Low?? 8.7??Low?? 9.7??Low?? 9.5??Low?? 10.7??Low?? 10.9??Low?? 11.5??Low?? HCT 39.5 - 50.2 % 23.9??Low?? 24.8??Low?? 26.9??Low?? 30.8??Low?? 32.2??Low?? 33.4??Low?? MCV 81 - 95 fl 90 91 91 91 94 94 MCH 27.6 - 33.0 pg 31.6 31.9 32.0 31.6 31.7 32.5 MCHC 32.8 - 36.4 gm/dL 35.1 35.1 35.3 34.7 33.9 34.4 RDW-CV <14.2 % 15.2??High?? 15.5??High?? 14.9??High?? 14.6??High?? 14.0 13.5 RDW-SD <46.0 fl 50.3??High?? 51.0??High?? 49.7??High?? 48.6??High?? 47.4??High?? 46.9??High?? PLT 141 - 377 K/cmm 148 147 documented in this encounter Plan of Treatment Upcoming Encounters Date Type Department Care Team (Late st Contact Info) Description 10/04/2024 9:50 EST Appointment [facility] Pre-Surgical Testing [address] [place], [place] [phone] 10/14/2024 11:00 EST Hospital Encounter [facility] OR [address] [place], [place] 170341 Clemente Gerardo MD [address] [facility], [address] [place] [phone] 10/14/2024 11:00 EST - 10/14/2024 14:35 EST Surgery [facility] OR [address] [place] [address] [phone] Clemente Gerardo MD [address] [place] [address] [address] [place] [phone] Implantation of inflatable penile prosthesis [50744 (CPT??)] 10/17/2024 9:00 EST Telemedicine [facility] [phone] Nurse Call, [facility] Urology 10/31/2024 15:00 EST Post-op Visit [address] [phone] Clemente Gerardo MD [address] [place] [address] [phone] 12/06/2024 10:15 EST Office Visit [address] [address] Spike Puentes MD [address] [place] [address] [phone] Scheduled Procedures Name Priority Associated Diagnoses Date/Ti me INSERTION, PENILE PROSTHESIS, INFLATABLE, 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 10/14/2024 11:00 EST documented as of this encounter Procedures Procedure Name Priority Date/Time Associated Diagnosis Comments COMPLETE BLOOD COUNT AND DIFFERENTIAL Routine 02/19/2023 15:35 EDT Acute blood loss anemia documented in this encounter Results * (ABNORMAL) COMPLETE BLOOD COUNT AND DIFFERENTIAL (02/19/2023 15:35 EDT) WBC 4.18 4.00 - 10.40 K/cmm 02/20/2023 10:29 [facility] RBC 3.38(L) 4.36 - 5.78 M/cmm 02/20/2023 10:29 [facility] Hemoglobin 10.5(L) 13.8 - 17.3 gm/dL 02/20/2023 10:29 [facility] HCT 32.5(L) 39.5 - 50.2 % 02/20/2023 10:29 [facility] MCV 96(H) 81 - 95 fl 02/20/2023 10:29 [facility] MCH 31.1 27.6 - 33.0 pg 02/20/2023 10:29 [facility] MCHC 32.3(L) 32.8 - 36.4 gm/dL 02/20/2023 10:29 [facility] RDW-CV 15.3(H) <14.2 % 02/20/2023 10:29 [facility] RDW-SD 52.8(H) <46.0 fl 02/20/2023 10:29 [facility] PLT 284 141 - 377 K/cmm 02/20/2023 10:29 [facility] MPV 10.0 9.5 - 12.7 fl 02/20/2023 10:29 [facility] % Neutrophils 53.1 % 02/20/2023 10:29 [facility] % Lymphocytes 35.4 % 02/20/2023 10:29 [facility] % Monocytes 8.6 % 02/20/2023 10:29 [facility] % Eosinophils 1.4 % 02/20/2023 10:29 [facility] % Basophils 1.0 % 02/20/2023 10:29 [facility] % Immature Grans 0.5 % 02/21/20 10:29 [facility] Absolute Neutrophils 2.22 2.20 - 8.85 K/cmm 02/20/2023 10:29 [facility] Absolute Lymphocytes 1.48 1.09 - 3.30 K/cmm 02/20/2023 10:29 [facility] Absolute Monocytes 0.36 0.10 - 0.80 K/cmm 02/20/2023 10:29 [facility] Absolute Eosinophils 0.06 0.03 - 0.61 K/cmm 02/20/2023 10:29 [facility] ABS Basophils 0.04 0.01 - 0.11 K/cmm 02/20/2023 10:29 [facility] Absolute Immature Grans 0.02 0.00 - 0.06 K/cmm 02/20/2023 10:29 [facility] Type of Differential: Auto 02/20/2023 10:29 [facility] Blood VENOUS BLOOD / Unknown Venipuncture / Unknown 02/19/2023 15:35 EDT 02/19/2023 15:35 EDT Vel Santos MD PACKAGES & DNA PROBE ORDERABLES [facility] [address] [place] [address] documented in this encounter Visit Diagnoses Diagnosis Acute blood loss anemia- Primary Acute posthemorrhagic anemia Acute reaction to situational stress Erectile dysfunction after radical prostatectomy documented in this encounter Discontinued Medications Medication Sig Discontinue Reason Start Date End Da te acetaminophen-codeine (TYLENOL #3) 300-30 mg per tabletIndications:Close d fracture of one rib of left side, initial encounter Take 1 Tablet by mouth every 6 hours as needed for Pain. Daily Max: 4 Tablets 12/23/2021 02/22/2023 lamoTRIgine (LAMICTAL) 25 mg tablet 1 po a day for one week, then one po bid, then 2 po bid as directed , finally up to 3 pills bid 01/01/2023 02/22/2023 zoster vaccine recombinant, PF, (SHINGRIX, PF,) IM Injection - vial GIVE ONE NOW, AND REPEAT IN 2-6 MONTHS. 11/13/2020 02/22/2023 zoster vaccine recombinant, PF, (SHINGRIX, PF,) IM Injection - vial GIVE ONE NOW, AND REPEAT IN 2-6 MONTHS. 02/26/2021 02/22/2023 documented as of this encounter Care Teams Fence Laborer Relationship Specialty Start Date End Date Vel Santos MD PCP - General 10/30/11 03/09/23 documented as of this encounter
--- OUTSIDE RECORDS SUMMARY | 2024-07-19 22:12 | XMS_ITS | Encounter Summary ---
Author Organization [facility] Address [address] [place] [address] Care Team Providers Care [employer] Superintendent Name Role Phone Vel Santos MD Primary Care Provider Marco Cowart MD Primary Care Provider [phone] Marco Aleman MD Primary Care Provider [phone] Reason for Visit * Reason Onset Date Comments Medications Refill 02/04/2023 Encounter Details Date Type Department Care Team (Late st Contact Info) Description 02/04/2023 Refill [facility] Family Medicine [place] [address] [address], [facility] [address] [place] [address] Vel Santos MD Medications Refill [...] you have serious difficulty h earing? No 01/14/2023 Because of a physical, menta l, or emotional condition, does this person have difficulty doing errands alone such as visiting a doctor's office or shopping? No 03/02/2018 documented as of this encounter Plan of Treatment Upcoming Encounters Date Type Department Care Team (Late st Contact Info) Description 10/04/2024 9:[address] [facility] Pre-Surgical Testing [address] [place] [address] [phone] 10/14/2024 11:00 EST Hospital Encounter [facility] OR [address] [place] [address] [phone] Clemente Gerardo MD [address] [place] [address] [phone] 10/14/2024 11:00 EST - 10/14/2024 14:35 EST Surgery [facility] OR [address] [place] [address] [phone] Clemente Gerardo MD [address] [place] [address] [phone] Implantation of inflatable penile prosthesis [32621 (CPT??)] 10/17/2024 9:00 EST Telemedicine [address] [phone] Nurse Call, [facility] Urology 10/31/2024 15:00 EST Post-op Visit [address] [phone] Clemente Gerardo MD [address] [place] [address] [phone] 12/06/2024 10:15 EST Office Visit [facility] Ophthalmology [facility] [address] [place] [address] Spike Puentes MD [address] [place] [phone] Scheduled Procedures Name Priority Associated Diagnoses Date/Ti me INSERTION, PENILE PROSTHESIS, INFLATABLE, 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 10/14/2024 11:00 EST documented as of this encounter Visit Diagnoses Not on filedocumented in this encounter Care Teams [employer] Superintendent Relationship Specialty Start Date End Date Vel Santos MD PCP - General 10/30/11 03/09/23 Marco Altamirano MD [address] [place] [address] [phone] PCP - General Family Medicine - Primary Care 03/10/23 09/13/23 Marco Aleman MD [address] [facility] [address] [place] [phone] PCP - General Emergency Medicine 12/07/23 documented as of this encounter
--- OUTSIDE RECORDS SUMMARY | 2024-07-19 22:12 | XMS_ITS | Encounter Summary ---
Author Organization [facility] Address [address] [place] [address] Care Team Providers Care Portable Pinch Riveter Name Role Phone Vel Santos MD Primary Care Provider Unava ilable Reason for Visit * Reason Onset Date Comments Cough 12/26/2021 Telemedicine Video Visit 12/26/2021 Encounter Details Date Type Department Care Team (Late st Contact Info) Description 12/26/2021 Telephone [facility] Medicine [facility] [address] , [facility] [address] [place], [place] [phone] Vel Santos MD Cough; Telemedicine Video Visit Social History Tobacco Use Types Packs/Day Years [...] Functional Status Response Date of Assess ment Because of a physical, menta l, or emotional condition, does this person have difficulty doing errands alone such as visiting a doctor's office or shopping? No 03/02/2018 documented as of this encounter Miscellaneous Notes * Telephone Encounter - Felicia Celis - 12/26/2021 1100 EST I called Xin back, we booked short video visit today at 11:45 am. They said thank you for the quick turn around. Closing message. * Telephone Encounter - Raina Trevino RN - 12/26/2021 1052 EST Back to Front to schedule pt for a 15 min video visit today for this 1 concern * Telephone Encounter - Felicia Celis - 12/26/2021 1009 EST Patient's Xin reports he's had a cough for a couple wk's now, not going away on it's own. OnSunday he was seen by [facility] for [facility]. This cough is aggravating the rib injury. Patient would like an acute video visit with Dr. Santos to discuss treatment options. Advise if okay touse acute for this? documented in this encounter Plan of Treatment Upcoming Encounters Date Type Department Care Team (Late st Contact Info) Description 10/04/2024 9:[address] [facility] Pre-Surgical Testing [address] [place] [address] [phone] 10/14/2024 11:00 EST Hospital Encounter [facility] OR [address] [place] [address] [phone] Clemente Gerardo MD [address] [place] [address] [phone] 10/14/2024 11:00 EST - 10/14/2024 14:35 EST Surgery [facility] OR [address] [place] [address] [phone] Clemente Gerardo MD [address] [place] [address] [phone] Implantation of inflatable penile prosthesis [78275 (CPT??)] 10/17/2024 9:00 EST Telemedicine [facility] [phone] Nurse Call, [facility] Urology 10/31/2024 15:00 EST Post-op Visit [address] [phone] Clemente Gerardo MD [address] [facility], [address] [place] [phone] 12/06/2024 10:15 EST Office Visit [address] [address] Spike Puentes MD [address] [place] [phone] Scheduled Procedures Name Priority Associated Diagnoses Date/Ti me INSERTION, PENILE PROSTHESIS, INFLATABLE, 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 10/14/2024 11:00 EST documented as of this encounter Visit Diagnoses Not on filedocumented in this encounter Care Teams Portable Pinch Riveter Relationship Specialty Start Date End Date Vel Santos MD PCP - General 10/30/11 03/09/23 documented as of this encounter
--- OUTSIDE RECORDS SUMMARY | 2024-07-19 22:12 | XMS_ITS | Encounter Summary ---
Author Organization [facility] Address [address] [place] [address] Care Team Providers Care Booth Usher Name Role Phone Vel Santos MD Primary Care Provider Unava ilable Reason for Visit * Reason Comments Follow-up Follow up - S/p SLT - Left eye Encounter Details Date Type Department Care Team (Late st Contact Info) Description 01/13/2022 15:00 EDT Office Visit [facility] Ophthalmology [facility] [address] [place] [address] Spike Puentes MD [address] [place] [phone] Social History Tobacco Use Types Packs/Day Years [...] No 03/02/2018 documented as of this encounter Progress Notes * Spike Puentes MD - 01/13/2022 1500 EDT Chief Complaint Patient presents with ??? Follow-up Follow up - S/p SLT - Left eye HPI The patient is a 71 y.o. male here for follow up after SLT in the left eye. He reports that his vision has been stable. Right Eye: Floaters Left Eye: Blurred Vision, Floaters Visual Aid: Glasses Current Rx Age Location: Pain: 0 - No pain Quality: Severity: Duration: Timing: Lasts: Context: S/p SLT Left eye - 12/02/21. He reports vision has been stable. No new floaters, flashes orpain in the eyes. Modifying factors: Associated Signs & Symptoms: Attestation: ROS Constitutional: NL ENT/Mouth Cardiovascular: Respiratory: Gastrointestinal: Genitourinary: Musculoskeletal: Integumentary: Neurologic: Psychiatric: Endocrine: Hematologic: Immunologic: Ese Teacher: Exposures: None Other: Attestation: Base Eye Exam Visual Acuity (Snellen - Linear) Right Left Dist sc 20/50 20/150 -1 Dist ph sc 20/20 Tonometry (Applanation, 15:26) Right Left Pressure 17 26 Tonometry #2 (Applanation-MD, 16:23) Right Left Pressure 19 23 Neuro/Psych Oriented x3: Yes Mood/Affect: Normal Slit Lamp and Fundus Exam External Exam Right Left External Normal Normal Slit Lamp Exam Right Left Lids/Lashes Papilloma lateral upper eyelid, Blepharitis Blepharitis Conjunctiva/Sclera White and quiet Conjunctival cyst nasally Cornea Clear Clear Anterior Chamber Deep and quiet Deep and quiet Iris Round and reactive Round and reactive Lens 1-2+ Nuclear sclerosis 1-2+ Nuclear sclerosis DIAGNOSTIC TESTING/PROCEDURES: IMPRESSION & PLAN: 1. Ocular hypertension, left eye -IOP??today: -IOP better on the left eye today. -Return in about 4 months I have reviewed the patient's past medical, family, social and surgical history. I have also reviewed the patient's medications, allergies, and problem list. I performed my own HPI and have reviewed the tech's ROS as well. I completed this exam personally. Spike Puentes MD Patient Education Topic: ocular hypertension Method: Verbal Taught to: Patient Barriers: None Outcomes: independent Signature: Spiek Puentes MD documented in this encounter Plan of Treatment Upcoming Encounters Date Type Department Care Team (Late st Contact Info) Description 10/04/2024 9:50 EST Appointment [facility] Pre-Surgical Testing [address] [place] [address] [phone] 10/14/2024 11:00 EST Hospital Encounter [facility] OR [address] [place] [address] [phone] Clemente Gerardo MD [address] [place] [phone] 10/14/2024 11:00 EST - 10/14/2024 14:35 EST Surgery [facility] OR [address] [place] [address] [phone] Clemente Gerardo MD [address] [place] [address] [phone] Implantation of inflatable penile prosthesis [53136 (CPT??)] 10/17/2024 9:00 EST Telemedicine [facility] [phone] Nurse Call, [facility] Urology 10/31/2024 15:00 EST Post-op Visit [facility] Urology [address] [phone] Clemente Gerardo MD [address] [place] [phone] 12/06/2024 10:15 EST Office Visit [facility] [address] [place] [address] Spike Puentes MD [address] [place] [phone] Scheduled Procedures Name Priority Associated Diagnoses Date/Ti me INSERTION, PENILE PROSTHESIS, INFLATABLE, 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 10/14/2024 11:00 EST documented as of this encounter Visit Diagnoses Diagnosis Ocular hypertension, left- Primary Erectile dysfunction after radical prostatectomy documented in this encounter Eye Exam Visual Acuity (Snellen - Linear) Right eye Left eye Dist sc 20/50 20/150 -1 Dist ph sc 20/20 Tonometry #1 (Applanation, 15:26) Right eye Left eye Pressure 17 26 Tonometry #2 (Applanation-MD, 16:23) Right eye Left eye Pressure 19 23 Neuro/Psych Oriented x3: Yes Mood/Affect: Normal External Exam Right eye Left eye External Normal Normal Slit Lamp Exam Right eye Left eye Lids/Lashes Papilloma lateral up per eyelid, Blepharitis Blepharitis Conjunctiva/Sclera White and quiet Conjunctival cyst nasally Cornea Clear Clear Anterior Chamber Deep and quiet Deep and quiet Iris Round and reactive Round and sharmila ctive Lens 1-2+ Nuclear sclerosis 1-2+ Nucl ear sclerosis Care Teams Booth Usher Relationship Specialty Start Date End Date Vel Santos MD PCP - General 10/30/11 03/09/23 documented as of this encounter
--- OUTSIDE RECORDS SUMMARY | 2024-07-19 22:12 | XMS_ITS | Encounter Summary ---
Author Organization [facility] Address [address] [place] [address] Care Team Providers Care Professional Benefits Sales Consultant Name Role Phone Vel Santos MD Primary Care Provider Unava ilable Reason for Visit * Reason Comments Dysuria Pain rib Encounter Details Date Type Department Care Team (Late st Contact Info) Description 12/23/2021 14:00 EST Walk-In [facility] [address] [place] [address] [phone] Dayana Naidu PA-C [address] [facility] [address] [place] [address] Acute cystitis without hematuria (Primary Dx); Closed fracture of one rib of left side, initial encounter Social History Tobacco Use Types Packs/Day [...] Sign Reading Time Taken Comments Blood Pressure 137/80 12/23/2021 1418 EST Pulse 68 12/23/2021 1418 EST Temperature 36.6 ??C (97.8 ??F) 12/23/2021 1418 EST Respiratory Rate 20 12/23/2021 1418 EST Oxygen Saturation 99% 12/23/2021 1418 EST Inhaled Oxygen Concentration - - Weight - - Height - - Body Mass Index - - documented in this encounter Functional Status Functional Status Response Date of Assess ment Because of a physical, menta l, or emotional condition, does this person have difficulty doing errands alone such as visiting a doctor's office or shopping? No 03/02/2018 documented as of this encounter Patient Instructions * Patient Instructions* Dayana Naidu PA-C - 12/23/2021 14:00 EST Images from the original note were not included. [facility] Patient Instructions Broken Rib: Care Instructions Your Care Instructions A broken rib is a crack or break in one of the bones of the rib cage. Breathing can be very painfulbecause the muscles used for breathing pull on the rib. In most cases, a broken rib will heal on its own. You can take pain medicine while the rib mends. Pain relief allows you to take deep breaths. In the past, doctors recommended taping or wrapping broken ribs. This is no longer done because taping makes it hard for you to take deep breaths. Taking deep breaths may help prevent pneumonia or a partial collapse of a lung. Your rib will heal in about 6 weeks. You heal best when you take good care of yourself. Eat a variety of healthy foods, and don't smoke. Follow-up care is a purcell part of your treatment and safety. Be sure to make and go to all appointments, and call your doctor if you are having problems. It's also a good idea to know your test resultsand keep a list of the medicines you take. How can you care for yourself at home? ?? Be safe with medicines. Read and follow all instructions on the label. ? If the doctor gave you a prescription medicine for pain, take it as prescribed. ? If you are not taking a prescription pain medicine, ask your doctor if you can take an tgoz-bwt-zylfvyo medicine. ?? Even if it hurts, try to cough or take the deepest breath you can at least once every hour. Thiswill get air deeply into your lungs. This may reduce your chance of getting pneumonia or a partial collapse of a lung. Hold a pillow against your chest to make this less painful. ?? Put ice or a cold pack on the area for 10 to 20 minutes at a time. Put a thin cloth between the ice and your skin. When should you call for help? Call 911 anytime you think you may need emergency care. For example, call if: ? You have severe trouble breathing. Call your doctor now or seek immediate medical care if: ? You have some trouble breathing. ? You have a fever. ? You have a new or worse cough. Watch closely for changes in your health, and be sure to contact your doctor if: ? You have pain even after taking your medicine. ? You do not get better as expected. Where can you learn more? Go to https://www.[email or web address].Solaborate/Roojoom or log into your [employer] account at [email or web address].org Enter M135 in the search box to learn more about Broken Rib: Care Instructions. Current as of: May 02, 2021?Content Version: 13.1 ?? [employer]. Care instructions adapted under license by [facility]. If you have questions about a medical condition or this instruction, always ask your healthcare professional. [employer] disclaims any warranty or liability for your use of this information. documented in this encounter Ordered Prescriptions Prescription Sig Dispensed Refills Start Date End Da te acetaminophen-codeine (TYLENOL #3) 300-30 mg per tabletIndications:Closed fracture of one rib of left side, initial encounter Take 1 Tablet by mouth every 6 hours as needed for Pain. Daily Max: 4 Tablets 10 Tablet 12/23/2021 02/22/2023 nitrofurantoin, macrocrystal-monohydrate , (MACROBID) 100 mg capsuleIndications:Acute cystitis without hematuria Take 1 capsule by mouth 2 times daily for 7 days. 14 capsule 12/23/2021 12/30/2021 documented in this encounter Progress Notes * Mau Pardo RN - 12/23/2021 1400 EST Tried Roland and line busy. Will try again MAU PARDO RN 12/23/2021 13:52 * Mau Pardo RN - 12/23/2021 1400 EST CC/HPI:Yesterday early afternoon patient slipped on the ice and landed on left elbow, which jammed into ribs. Couldn't move for 3-5 minutes. Did not hit head of pass out. Has broken ribs in past. 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 (If yes, assign to ARC) no In the past 10 days, has the patient had a positive Covid test OR a confirmed close Covid exposure (<6ft for > 15mins in 24hr period)? (if yes, assign to ARC, regardless of vaccination status) no Is the patient fully Covid vaccinated? Approximate date of last dose? Fully vaccinated including booster (Pfizer) *may be determined by RN or in discussion with available provider (RAILWAY YARD ASSISTANT's and CCA's can defer to Charge Nurse to complete triage when appropriate) PCP: Vel Santos * Dayana Naidu PA-C - 12/23/2021 1400 EST [facility] Chief Complaint(s): Chief Complaint Patient presents with ??? Dysuria ??? Pain rib Assessment & Plan: 1. Acute cystitis without hematuria POCT URINE DIPSTICK, VISUAL READ BACTERIAL CULTURE, URINE nitrofurantoin, macrocrystal-monohydrate, (MACROBID) 100 mg capsule 2. Closed fracture of one rib of left side, initial encounter XR RIBS LEFT WITH PA CHEST acetaminophen-codeine (TYLENOL #3) 300-30 mg per tablet New Prescriptions ACETAMINOPHEN-CODEINE (TYLENOL #3) 300-30 MG PER TABLET Take 1 Tablet by mouth every 6 hours as needed for Pain. Daily Max: 4 Tablets AZITHROMYCIN (ZITHROMAX) 250 MG TABLET Take 2 tablets (500 mg) on day 1, followed by 1 tablet (250 mg) once daily on days 2 through 5. NITROFURANTOIN, MACROCRYSTAL-MONOHYDRATE, (MACROBID) 100 MG CAPSULE Take 1 capsule by mouth 2 timesdaily for 7 days. X-ray shows a suspected subtle nondisplaced fracture of the left sixth rib consistent with the areaof discomfort. He felt his pain would not be managed with Tylenol and ibuprofen alone and reports he had good effect with codeine the last time he had a rib fracture, he was provided with a small prescription of Tylenol with codeine, sedation warnings reviewed. He may also use heat and ice, Salonpas patches and rest. Discussed importance of deliberate deep breathing to prevent pneumonia. Opioid contract signed and scanned into patient documents. UA is suggestive of infection, will treat empirically while the culture is pending. We will call only if we need to make any changes to the course of antibiotics. He should follow-up if no improvement or feeling any worse. HPI: 71-year-old male presents with his for eval of left rib injury. He is also concerned he may have a urinary tract infection. 1. Yesterday he slipped on ice landing on his left side, his elbow jammed into his rib cage and he had pain immediately upon falling. He denies hitting his head, no loss of consciousness. He was in asignificant amount of pain last night and was unable to get himself seen and so took some leftover Dilaudid he had at home. He had a friend that was with him as a doctor who listened to his lungs andreported lungs are clear. He is having pain with deep breathing/cough or sneeze but otherwise no shortness of breath. No abdominal pain or chest pain. He has fractured ribs before and this feels similarly. 2. He has had frequent urinary tract infections since he was a child, he is status post total prostatectomy and reports he has had urinary urgency for about a month now. Usually this indicates he might have a UTI. He denies dysuria, no fever or chills, no nausea or vomiting. He is not having any abdominal or flank pain. ROS: Review of Systems Constitutional: Negative for chills, fever and malaise/fatigue. Cardiovascular: Positive for chest pain (Left ribs). Gastrointestinal: Negative for abdominal pain, nausea and vomiting. Genitourinary: Positive for urgency. Negative for dysuria, flank pain, frequency and hematuria. Objective: Vitals and nursing notes reviewed Examination: BP 137/80 (BP Cuff Location: Left arm, BP Patient Position: Sitting, BP Cuff Sizes: Adult, long) Pulse 68 Temp 36.6 ??C (97.8 ??F) (Oral) Resp 20 SpO2 99% Physical Exam Constitutional: General: He is not in acute distress. Appearance: Normal appearance. HENT: Head: Normocephalic and atraumatic. Eyes: Conjunctiva/sclera: Conjunctivae normal. Cardiovascular: Rate and Rhythm: Normal rate and regular rhythm. Heart sounds: Normal heart sounds. Pulmonary: Effort: Pulmonary effort is normal. Chest: Chest wall: Tenderness (Left lateral rib cage around 7-10th ribs. No bruising or crepitus.) present. Abdominal: Palpations: Abdomen is soft. Tenderness: There is no right CVA tenderness or left CVA tenderness. Musculoskeletal: Cervical back: Neck supple. Lymphadenopathy: Cervical: No cervical adenopathy. Skin: General: Skin is warm and dry. Neurological: General: No focal deficit present. Mental Status: He is alert. Data reviewed with patient (current and past results): most recent labs reviewed: UA and most recent imaging reviewed: XR chest/ribs This note was prepared using voice recognition software and the EMR. There may be inadvertent errors and omissions. documented in this encounter Plan of Treatment Upcoming Encounters Date Type Department Care Team (Late st Contact Info) Description 10/04/2024 9:50 EST Appointment [facility] Pre-Surgical Testing [address] [place] [address] [id number] 10/14/2024 11:00 EST Hospital Encounter [facility] OR [address] [place] [address] [id number] Clemente Gerardo MD [address] [place] [address] [phone] 10/14/2024 11:00 EST - 10/14/2024 14:35 EST Surgery [facility] OR [address] [place] [address] [id number] Clemente Gerardo MD [address] [place] [address] [phone] Implantation of inflatable penile prosthesis [06754 (CPT??)] 10/17/2024 9:00 EST Telemedicine [facility] [address] [phone] Nurse Call, [facility] 10/31/2024 15:00 EST Post-op Visit [address] [id number] Clemente Gerardo MD [address] [place] [address] [phone] 12/06/2024 10:15 EST Office Visit [facility] [address] [address] Spike Puentes MD [address] [place] [address] [phone] Scheduled Procedures Name Priority Associated Diagnoses Date/Ti me INSERTION, PENILE PROSTHESIS, INFLATABLE, 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 10/14/2024 11:00 EST documented as of this encounter Procedures Procedure Name Priority Date/Time Associated Diagnosis Comments BACTERIAL CULTURE, URINE Routine 12/23/2021 15:53 EST Acute cystitis without hematuria XR RIBS LEFT WITH PA CHEST STAT 12/23/2021 14:57 EST Closed fracture of one rib of left side, initial encounter POCT URINE DIPSTICK, VISUAL READ Routine 12/23/2021 Acute cystitis without hematuria documented in this encounter Results * (ABNORMAL) BACTERIAL CULTURE, URINE (12/23/2021 15:53 EST) Organism ID [id number] to 100,000 CFU/ml Escherichia coli(A) VITEK SUSCEPTIBILITY 12/26/2021 14:01 EST [facility] Comment: Cefazolin susceptibility results can be used to predict susceptibility results for the following oral cephalosporins when used for therapy of uncomplicated UTI's due to E.coli, K.pneumoniae and P.mirabilis: cefaclor, cefdinir, cefpodoxime, cefprozil, cefuroxime, cephalexin and loracarbef. ??Please note that only cefdinir, cefpodoxime, cefuroxime and cephalexin are on the [facility] inpatient formulary. Urine URINE SPECIMEN COLLECTION, CLEAN CATCH / Unknown Urine Collect / Unknown 12/23/2021 15:53 EST 12/23/2021 15:53 EST Narrative Organism Antibiotic Method Susceptibility Escherichia coli Amoxicillin Clavulan ic acid VITEK SUSCEPTIBILITY 4 ug/mL: Susceptible Escherichia coli Ampicillin VITEK SUSCEPTIBILITY 8 ug/mL: Susceptible Escherichia coli Ampicillin Sulbactam VITEK SUSCEPTIBI LITY <=2 ug/mL: Susceptible Escherichia coli Cefazolin VITEK SUSCEPTIBILITY <=4 ug/mL: Susceptible Escherichia coli Cefepime VITEK SUSCEPTIBILITY <=1 ug/mL: Susceptible Escherichia coli Ceftriaxone VITEK SUSCEPTIBILITY <=1 ug/mL: Susceptible Escherichia coli Ciprofloxacin VITEK SUSCEPTIBILITY <=0.25 ug/mL: Susceptible Escherichia coli Ertapenem VITEK SUSCEPTIBILITY <=0.5 ug/mL: Susceptible Escherichia coli Gentamicin VITEK SUSCEPTIBILITY <=1 ug/mL: Susceptible Escherichia coli Levofloxacin VITEK SUSCEPTIBILITY <=0.12 ug/mL: Susceptible Escherichia coli Nitrofurantoin VITEK SUSCEPTIBILITY <=16 ug/mL: Susceptible Escherichia coli Piperacillin Tazobactam VITEK SUSCEPT IBILITY <=4 ug/mL: Susceptible Escherichia coli Tobramycin VITEK SUSCEPTIBILITY <=1 ug/mL: Susceptible Escherichia coli Trimethoprim-Sulfame thox azole VITEK SUSCEPTIBILITY <=20 ug/mL: Susceptible Dayana Naidu PA-C MICROBIOLOGY - GENER AL ORDERABLES [facility] [address] [place] [address] * XR RIBS LEFT WITH PA CHEST (12/23/2021 14:57 EST) Anatomical Region Laterality Modality Left Computed Radiogr aphy 12/23/2021 15:0 2 EST Impressions 12/23/2021 15:02 EST 1. Suspected subtle nondisplaced lateral left 6th rib acute fracture. 2. Healed left 8th and 9th chronic rib fractures. 3. No pneumothorax detected. Narrative 12/23/2021 15:02 EST INDICATION: pain s/p fall on ice, eval for rib fracture TECHNIQUE: 3 views with PA chest COMPARISON: Chest x-ray 08/16/2019. FINDINGS: Chronic left 8th and 9th rib fractures are seen, unchanged. There appears to be a lateral left 6th rib fracture. Mild linear markings are seen at the left base, unchanged. The cardiomediastinal silhouette is unremarkable and unchanged. Procedure Note Juaquin Mistry MD - 12/23/2021 INDICATION: pain s/p fall on ice, eval for rib fracture TECHNIQUE: 3 views with PA chest COMPARISON: Chest x-ray 08/16/2019. FINDINGS: Chronic left 8th and 9th rib fractures are seen, unchanged.There appears to be a lateral left 6th rib fracture. Mild linear markingsare seen at the left base, unchanged. The cardiomediastinal silhouette isunremarkable and unchanged. IMPRESSION 1. Suspected subtle nondisplaced lateral left 6th rib acute fracture. 2. Healed left 8th and 9th chronic rib fractures. 3. No pneumothorax detected. Dayana Naidu PA-C IMG DIAGNOSTIC IMAGI NG ORDERABLES * (ABNORMAL) POCT URINE DIPSTICK, VISUAL READ (12/23/2021) Color, UA Yellow [facility] Clarity, UA Slightly Cloudy [facility] Glucose, UA Negative . mg/dL [facility] Bilirubin, UA Negative Negative [facility] Ketones, UA Negative . mg/dL [facility] Spec Grav, UA 1.020 1.005 - 1.030 [facility] Blood, UA Trace(A) Negative [facility] pH, UA 7.0 4.6 - 8.0 [facility] Protein, UA 30 mg/dL . mg/dL [facility] Urobilinogen, UA 0.2 0.2 - 1.0 E.U./dL [facility] Nitrite, UA Negative . [facility] Leuk Esterase 1+(A) Negative [facility] Comment [facility] Urine URINE SPECIMEN COLLECTION, CLEAN CATCH / Unknown 12/23/2021 Dayana Naidu PA-C POINT OF CARE TEST O RDERABLES [facility] documented in this encounter Visit Diagnoses Diagnosis Acute cystitis without hematuria- Primary Acute cystitis Closed fracture of one rib of left side, initial encounter Erectile dysfunction after radical prostatectomy documented in this encounter Care Teams Professional Benefits Sales Consultant Relationship Specialty Start Date End Date Vel Santos MD PCP - General 10/30/11 03/09/23 documented as of this encounter
--- OUTSIDE RECORDS SUMMARY | 2024-07-19 22:12 | XMS_ITS | Encounter Summary ---
Author Organization [facility] Address [address] [place] [address] Care Team Providers Care Trim Crew Supervisor Name Role Phone Vel Santos MD Primary Care Provider Dave ilmateo Encounter Details Date Type Department Care Team (Late st Contact Info) Description 02/02/2023 9:27 EDT Anesthesia Event [facility] Endoscopy [facility] [address], [place] [phone] Kwesi Farris MD Shelton, Michael, MD [address] [place] [phone] Anesthesia Record Procedure Summary Procedure Name Responsible Anesthesiologist Anesthesia Start Time Anesthesia Stop Time COLONOSCOPY Kwesi Farris MD 02/02/23 0927 02/02/23 1016 Events Date Time Event Comment 02/02/2023 0927 An Start The patient was re-evaluated immediately before moderate or deep sedation use, before anesthesia induction, or before the anesthesia procedure. 0927 An Start Data 0935 Anesthesia Ready 0955 an stop data 1016 An Stop 1025 Handoff to RN I completed my handoff to the receiving nurse during which we: 1. Identified the patient 2. Identified the responsible provider 3. Reviewed the pertinent medical history 4. Discussed the surgical course 5. Reviewed intra-op anesthesia management and issues during anesthesia 6. Set expectations for post-procedure period 7. Allowed opportunity for questions and acknowledgement of understanding. Meds Name Total lidocaine 2% (PF) injection glass vial 1 00 mg propOFol (DIPRIVAN) injection 300 mg metoprolol injection 1 mg lactated ringers (LR) infusion 200 mL * Agents Name Aux O2 flow * Blood No blood administrations on file. Lines, Drains, and Airways Type Details Placement Removal Peripheral IV 02/02/23; 0844; 22; B Knight Introcan; Posterior, Right; Hand; Inserted by RN; 1; None; Chlorhexidine; 02/02/23; 1032; Discharged; No complications, Catheter intact, Dressing applied 02/02/23 0844 by Rocio See 02/02/23 1032 by Adelina Benton RN documented in this encounter Social History Tobacco [...] No 03/02/2018 documented as of this encounter OR Notes * Anesthesia Postprocedure Evaluation - Kwesi Farris MD - 02/02/2023 1026 EDT Patient: Roland Vega Vital signs were reviewed with the recovery nurse. Complete vitals history is available in the Epicflowsheets. Vitals Value Taken Time BP 136/65 02/02/23 1010 Temp 36.4 ??C (97.5 ??F) 02/02/23 0957 Resp 22 02/02/23 1010 Pulse From Oximetry 68 BPM 02/02/23 1010 SpO2 96 % 02/02/23 1010 Heart Rate 02/02/23 1026 Last Pain Score - Numeric Pain Level (Scale 1-10): 0 Type of Anesthesia - MAC Anesthesia Post Evaluation Post-procedure vitals reviewed and are stable. Level of consciousness: alert and oriented and awake Temperature status: normothermia Respiratory status: airway patent, room air and stable Cardiovascular status: acceptable, stable and within patient's normal range Hydration status: adequate Nausea/Vomiting: none Pain management: adequate Post-Op Assessment: patient tolerated procedure well with no complications and patient satisfied with anesthesia care Patient participation: able to participate Disposition: outpatient/home Anesthesia Complications: No apparent anesthesia complications * Anesthesia Preprocedure Evaluation - Kwesi Farris MD - 02/02/2023 0923 EDT Images from the original note were not included. Anesthesia Preprocedure Evaluation Patient Medical History, including Anesthesia History reviewed. Chart and Nursing Notes reviewed, including NPO status and Medication History. Additional ROS/History Findings: Allergies Allergen Reactions ??? Other - See Comments ??? Lisinopril Swelling of tongue ??? Sulfa (Sulfonamide Antibiotics) Shortness Of Breath and Swelling ??? Cyclobenzaprine Other reaction(s): Unknown ??? Ibuprofen Swelling Other reaction(s): edema ??? Naproxen Sodium Swelling Other reaction(s): edema ??? Tramadol Other (See Comments) Other reaction(s): DIZZINESS Review of Systems Constitutional: Positive for malaise/fatigue. Respiratory: Positive for shortness of breath. Cardiovascular: Positive for chest pain and palpitations. Regular episodes of CP precipitated by exertion, resolves with rest Gastrointestinal: Negative for heartburn. All other systems reviewed and are negative. Past Medical History: Diagnosis Date ??? Abnormal stress test 04/20/2017 s/p JANET ??? Activity, other involving cardiorespiratory exercise 01/30/23- able to climb 2 FOS w/o SOB ??? Amblyopia per pt-left eye ??? Anomaly, cardiac cardiac stents ??? Arrhythmia 01/30/23- currently has zio patch for palpitations, CP, and SOB ??? Cancer ([facility]) ([facility]) prostates and skin cancer ??? Cerebral artery occlusion with cerebral infarction ([facility]) 2018 01/30/23-Acute ischemic left MCA stroke. no residual deficits ??? Chest pain 01/30/23- currently has zio patch for palpitations, CP, and SOB ??? Claustrophobia 01/30/23- in closed room ??? Colon polyp ??? Exercise involving housework ??? GERD (gastroesophageal reflux disease) 01/30/23- controlled w/ Protonix, sleeps on side for comfort ??? History of general anesthesia ??? Hyperlipidemia ??? Hypertension 01/30/23- well controlled per pt ??? CA (myocardial infarction) ([facility]) ([facility]) ([facility]) 2007 x2. 2008 & 2010. JANET x4 ??? Poor dentition 01/30/23- reports having 2 broken teeth ??? Rash 01/30/23- eczema on face ??? Seizures ([facility]) 201801/30/23- well controlled on Lamictal, thought to be due to high dose Wellbutrin. None since 2018 ??? 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[facility]) (+) Cerebrovascular accident (CVA) due to embolism ([facility]) (+) Headache (+) History of syncope (+) TIA (transient ischemic attack) CARDIOVASCULAR (+) Arteriosclerotic cardiovascular disease (+) Coronary artery disease involving northway coronary artery of northway heart without angina pectoris (+) Essential hypertension (+) Hemorrhoids GASTROINTESTINAL (+) Gastroesophageal reflux disease Other (+) Rheumatoid arthritis ([facility]) Physical Exam Airway Mallampati: IV TM distance: <3 FB Neck ROM: full Cardiovascular Rhythm: regular Rate: normal (-) murmur Dental - normal exam Pulmonary (+) decreased breath sounds Abdominal Anesthesia Plan ASA 3 Anesthesia Type - MAC Anesthesia plan and risks discussed. Informed consent obtained from patient. Specific risks discussed were myocardial infarction, nausea and vomiting. Code status discussed? No The preoperative history and physical which was performed within 30 days of this procedure, has been reviewed and the clinically appropriate elements of the physical examination have been repeated. There are no changes to the documented history and physical or, if so, such changes are documented inthis note PAT Note Notes from 01/03/23 through 02/02/23 No notes of this type exist for this encounter. documented in this encounter Plan of Treatment Upcoming Encounters Date Type Department Care Team (Late st Contact Info) Description 10/04/2024 9:50 EST Appointment [facility] Pre-Surgical Testing [address] [place] [address] [phone] 10/14/2024 11:00 EST Hospital Encounter [facility] OR [address] [place] [address] [phone] Clemente Gerardo MD [address] [place] [address] [phone] 10/14/2024 11:00 EST - 10/14/2024 14:35 EST Surgery [facility] OR [address] [place] [address] [phone] Clemente Gerardo MD [address] [place] [address] [phone] Implantation of inflatable penile prosthesis [45294 (CPT??)] 10/17/2024 9:00 EST Telemedicine [address] [phone] Nurse Call, [facility] Urology 10/31/2024 15:00 EST Post-op Visit [address] [phone] Clemente Gerardo MD [address] [place] [address] [phone] 12/06/2024 10:15 EST Office Visit [facility] [address] [place] [address] Spike Puentes MD [address] [place] [phone] Scheduled Procedures Name Priority Associated Diagnoses Date/Ti me INSERTION, PENILE PROSTHESIS, INFLATABLE, 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 10/14/2024 11:00 EST documented as of this encounter Visit Diagnoses Not on filedocumented in this encounter Administered Medications Inactive Administered Medications - up to 3 most recent administrations Medication Order MAR Action Action Date Dose Rate Site lactated ringers (LR) infusion 30 mL/hr, intravenous, PRN, Starting on 02/02/23 at 0834, Until Nydia 02/05/23 at 0204, Routine, Preprocedure Restarted 02/02/2023 9:27 EDT New Bag 02/02/2023 8:44 EDT 30 mL/hr 30 mL/hr lidocaine (PF) 20 mg/mL (2 %) injection intravenous, PRN, Starting on Thu02/02/23 at 0931, Until Thu02/02/23 at 1025, Routine, Anesthesia Intraprocedure Given 02/02/2023 9:31 EDT 100 mg metoprolol TARtrate (LOPRESSOR) injection intravenous, PRN, Starting on Thu02/02/23 at 0930, Until Thu02/02/23 at 1025, Routine, Anesthesia Intraprocedure Given 02/02/2023 9:30 EDT 1 mg propOFol (DIPRIVAN) injection intravenous, PRN, Starting on Thu02/02/23 at 0932, Until Thu02/02/23 at 1025, Routine, Anesthesia Intraprocedure Given 02/02/2023 9:48 EDT 30 mg Given 02/02/2023 9:45 EDT 20 mg Given 02/02/2023 9:42 EDT 20 mg documented in this encounter Care Teams Trim Crew Supervisor Relationship Specialty Start Date End Date Vel Santos MD PCP - General 10/30/11 03/09/23 documented as of this encounter
--- OUTSIDE RECORDS SUMMARY | 2024-07-19 22:12 | XMS_ITS | Encounter Summary ---
Author Organization [facility] Address [address] [place] [address] Care Team Providers Care [employer] Name Role Phone Vel Santos MD Primary Care Provider Unava ilable Reason for Visit * Reason Onset Date Comments Palpitations 12/31/2022 Encounter Details Date Type Department Care Team (Late st Contact Info) Description 12/31/2022 Telephone [facility] - [facility] Family Medicine [facility] [address] [place], [place] [phone] Vel Santos MD Palpitations Social History Tobacco Use Types Packs/Day Years [...] encounter Miscellaneous Notes * Telephone Encounter - Claudette Maier LPN - 01/01/2023 0917 EST Called and spoke with pt, scheduled for OV at 1630 with TC * Telephone Encounter - Vel Santos MD - 01/01/2023 0914 EST Maybe at 4:30 * Telephone Encounter - Mikki Talbot - 01/01/2023 0844 EST Daughter Sunshine Cornejo called requesting to speak directly to Dr Santos. She said if he knew who was calling he'd want to speak to her since he's been her doctor and they also worked together. She was advised a message will be sent out with her request. She can be called at [phone] * Telephone Encounter - Queenie Gee DNP - 12/31/2022 1111 EST Noted, to TC as FYI * Telephone Encounter - Claudette Maier LPN - 12/31/2022 1049 EST Called and spoke with pt and his . He reports a couple weeks of fatigue and intermittent heart palpitations. He states that he does check his BP at home and it has been as high as 180/54. He states that it is mostly around 130s/70s. He denies any chest pain or pressure, SOB, dizziness/lightheadednes. Offered OV with covering provider tomorrow, as TC has no available openings for several weeks. Pt declined, stating he would like to see TC. This scenario writer advised that it would be ideal for pt to be seen sooner than TC's next available (01/15/2023) for this and offered to book 01/15/23 with TC and book with a covering provider for acute eval tomorrow but pt declined. This scenario writer reviewed ER precautions, advised that if pt has a return of s/sx he should go to ER/EC immediately to see if theycan catch the issue on any testing. Pt agreeable. He requests to be called if TC has sooner openingand will contact office if s/sx persist or worsen. TE to covering provider for note. * Telephone Encounter - Ragini Hdz - 12/31/2022 1015 EST Patients Xin calling (on АННА) and reporting patient has been experiencing increased fatigue and heart palpitations. Requesting to see TC this week documented in this encounter Plan of Treatment Upcoming Encounters Date Type Department Care Team (Late st Contact Info) Description 10/04/2024 9:50 EST Appointment [facility] Pre-Surgical Testing [address] [place] [address] [phone] 10/14/2024 11:00 EST Hospital Encounter [facility] OR [address] [place] [address] [phone] Clemente Gerardo MD [address] [place] [address] [phone] 10/14/2024 11:00 EST - 10/14/2024 14:35 EST Surgery [facility] OR [address] [place] [address] [phone] Clemente Gerardo MD [address] [place] [address] [phone] Implantation of inflatable penile prosthesis [16860 (CPT??)] 10/17/2024 9:00 EST Telemedicine [facility] Urology - [address] [phone] Nurse Call, [facility] Urology 10/31/2024 15:00 EST Post-op Visit [facility] Urology - [facility] [address] [place], [place] [phone] Clemente Gerardo MD [address] [facility], [address] [place] [phone] 12/06/2024 10:15 EST Office Visit [facility] Ophthalmology [facility] [address] [place], [place] [phone] Spike Puentes MD [address] [place] [phone] Scheduled Procedures Name Priority Associated Diagnoses Date/Ti me INSERTION, PENILE PROSTHESIS, INFLATABLE, 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 10/14/2024 11:00 EST documented as of this encounter Visit Diagnoses Not on filedocumented in this encounter Care Teams [employer] Relationship Specialty Start Date End Date Vel Santos MD PCP - General 10/30/11 03/09/23 documented as of this encounter
--- OUTSIDE RECORDS SUMMARY | 2024-07-19 22:12 | XMS_ITS | Encounter Summary ---
Author Organization [facility] Address [address] [place] [address] Care Team Providers Care Bike Assembler Name Role Phone Vel Santos MD Primary Care Provider Unava ilable Reason for Visit * Reason Onset Date Comments Medications Refill 04/01/2022 Encounter Details Date Type Department Care Team (Late st Contact Info) Description 04/01/2022 Refill [facility] Medicine [facility] [address] [place], [place] [phone] Vel Santos MD Medications Refill Social History [...] No 03/02/2018 documented as of this encounter Ordered Prescriptions Prescription Sig Dispensed Refills Start Date End Da te buPROPion (WELLBUTRIN SR) 150 mg SR tablet TAKE 1 TABLET BY MOUTH ONCE DAILY IN THE MORNING 90 Tablet 04/02/2022 06/30/2022 documented in this encounter Miscellaneous Notes * Telephone Encounter - Sharron Hood MA - 04/02/2022 1015 EDT [facility] MEDICATION REFILL Medication: Bupropion 150mg SR tablets Medication, dose, directions verified: take one tab PO once daily in the morning Pharmacy verified: [facility] Last office visit: 02/24/22 Next office visit: none TE to - med pended for review documented in this encounter Plan of Treatment Upcoming Encounters Date Type Department Care Team (Late st Contact Info) Description 10/04/2024 9:50 EST Appointment [facility] Pre-Surgical Testing [address] [place] [address] [phone] 10/14/2024 11:00 EST Hospital Encounter [facility] OR [address] [place] [address] [phone] Clemente Gerardo MD [address] [place] [address] [phone] 10/14/2024 11:00 EST - 10/14/2024 14:35 EST Surgery [facility] OR [address] [place] [address] [phone] Clemente Gerardo MD [address] [place] [address] [phone] Implantation of inflatable penile prosthesis [91623 (CPT??)] 10/17/2024 9:00 EST Telemedicine [address] [phone] Nurse Call, [facility] Urology 10/31/2024 15:00 EST Post-op Visit [address] [phone] Clemente Gerardo MD [address] [facility], [address] [place] [phone] 12/06/2024 10:15 EST Office Visit [facility] Ophthalmology [facility] [address] [place], [place] [phone] Spike Puentes MD [address] [place] [phone] Scheduled Procedures Name Priority Associated Diagnoses Date/Ti me INSERTION, PENILE PROSTHESIS, INFLATABLE, 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 10/14/2024 11:00 EST documented as of this encounter Visit Diagnoses Not on filedocumented in this encounter Discontinued Medications Medication Sig Discontinue Reason Start Date End Da te buPROPion (WELLBUTRIN SR) 150 mg SR tablet TAKE 1 TABLET BY MOUTH ONCE DAILY IN THE MORNING 09/05/2021 04/02/2022 documented as of this encounter Care Teams Bike Assembler Relationship Specialty Start Date End Date Vel Santos MD PCP - General 10/30/11 03/09/23 documented as of this encounter
--- OUTSIDE RECORDS SUMMARY | 2024-07-19 22:12 | XMS_ITS | Encounter Summary ---
Author Organization [facility] Address [address] [place] [address] Care Team Providers Care Toddler Nanny Name Role Phone Vel Santos MD Primary Care Provider Unava ilable Reason for Referral * Cardiology (Routine/Next Available) - Authorized Specialty Diagnoses / Procedures Referred By Yi cummings Referred To Contact Diagnoses Palpitations Procedures ZIO PATCH WY EXTERNAL ECG REC>7D<15D RECORDING WY EXTERNAL ECG REC>7D<15D REVIEW & INTERPRETATION Asad Olguin MD [address] [place] [phone] [facility] Referral ID Status Reason Start Date Expiration Date V isits Requested Visits Authorized [id number] Authorized 01/14/2023 1 1 Reason for Visit * Auth/Cert (Routine) Specialty Diagnoses / Procedures Referred By Yi cummings Referred To Contact Diagnoses Rectal bleeding Anemia Referral ID Status Reason Start Date Expiration Date Visits Re quested Visits Authorized [id number] 1 1 Encounter Details Date Type Department Care Team (Late st Contact Info) Description 02/10/2023 15:23 EDT - 02/10/2023 23:59 EDT Hospital Encounter [facility] Non-Invasive Cardiology - [address] [phone] Sunshine Torres PA-C [address] [place] [address], Level [address] [place] [phone] Palpitations Discharge Disposition: Home or Self Care Social [...] No 03/02/2018 documented as of this encounter Medications at Time of Discharge Medication Sig Dispensed Refills Start Date End Date aspirin 325 mg tablet Take 1 Tablet by mouth daily. blood glucose meter Glucose monitor,Sig: test once a day once a day 07/19/2018 blood glucose test strips Brand: One Touch Ultra, test blood sugar once daily 100 Each 3 02/04/2021 cholecalciferol, Vitamin D3, 125 mcg (5000 unit) capsule Take by mouth daily. clopidogreL (PLAVIX) 75 mg tabletIndications:Dy slipidemia Take 1 Tablet by mouth daily. 90 Tablet 3 10/16/2022 DIABETIC SUPPLIES, MISCELLAN. MISC Syringe 3cc 02/17/2017 LANCETS & BLOOD GLUCOSE STRIPS [facility] test strips and lancets for glucose monitor , Sig: test once a day test once a day 09/20/2018 nitroGLYCERIN (NITROSTAT) 0.[address] 1 Tablet under the tongue as needed. 07/07/2014 Noazo-0-ODH-EPA-Fish Oil 1,000 (120-180) mg capsule Take 1,000 mg by mouth 2 times daily. acetaminophen-codein e (TYLENOL #3) 300-30 mg per tabletIndications:Cl osed fracture of one rib of left side, initial encounter Take 1 Tablet by mouth every 6 hours as needed for Pain. Daily Max: 4 Tablets 10 Tablet 12/23/2021 02/22/2023 amLODIPine (NORVASC) 10 mg tablet Take 1 Tablet by mouth daily for 90 days. 90 Tablet 3 10/16/2022 03/12/2023 azithromycin (ZITHROMAX) 250 mg tablet Take 2 tablets (500 mg) on day 1, followed by 1 tablet (250 mg) once daily on days 2 through 5. 6 Tablet 12/26/2021 02/12/2023 buPROPion (WELLBUTRIN SR) 150 mg SR tablet Take 1 Tablet by mouth daily. 90 Tablet 3 10/16/2022 09/11/2023 econazole nitrate 1 % cream Apply 1 application topically 2 times daily as needed. 11/05/2015 02/12/2023 erythromycin (ROMYCIN) 5 mg/gram (0.5 %) ophthalmic ointment Apply 1/4 strip 3.5 g 10/10/2021 06/03/2024 lamoTRIgine (LAMICTAL) 25 mg tablet 1 po a day for one week, then one po bid, then 2 po bid as directed , finally up to 3 pills bid 180 Tablet 5 01/01/2023 02/22/2023 MEDICAL MARIJUANA 06/03/2024 nystatin (MYCOSTATIN) ointment Apply 1 application topically 3 times daily as needed. 11/05/2015 02/12/2023 pantoprazole (PROTONIX) 40 mg tablet Take 1 Tablet by mouth daily for 360 days. 90 Tablet 3 10/16/2022 09/11/2023 polyethylene glycol (MIRALAX) 17 gram/dose powder Instructions mailed once procedure scheduled. 238 g 12/11/2022 06/09/2023 testosterone cypionate (DEPO-TESTOSTERONE) 200 mg/mL injection Inject 1.25 mL into the muscle every 7 days for 112 days. Patient requests 2x 10ml vials Daily Max: 250 mg 20 mL 3 06/30/2022 03/06/2023 ubidecarenone/vitami n E mixed (COQ10 SG 100 ORAL) Take by mouth daily. 024 zoster vaccine recombinant, PF, (SHINGRIX, PF,) IM Injection - vial GIVE ONE NOW, AND REPEAT IN 2-6 MONTHS. 1 Each 1 02/26/2021 02/22/2023 zoster vaccine recombinant, PF, (SHINGRIX, PF,) IM Injection - vial GIVE ONE NOW, AND REPEAT IN 2-6 MONTHS. 1 Each 1 11/13/2020 02/22/2023 documented as of this encounter Discharge Disposition Disposition Code Departure Means Destination Home or Self Care documented in this encounter Plan of Treatment Upcoming Encounters Date Type Department Care Team (Late st Contact Info) Description 10/04/2024 9:50 EST Appointment [facility] Pre-Surgical Testing [address] [place] [address] [phone] 10/14/2024 11:00 EST Hospital Encounter [facility] OR [address] [place] [address] [phone] Clemente Gerardo MD [address] [place] [phone] 10/14/2024 11:00 EST - 10/14/2024 14:35 EST Surgery [facility] OR [address] [place] [address] [phone] Clemente Gerardo MD [address] [place] [phone] Implantation of inflatable penile prosthesis [39579 (CPT??)] 10/17/2024 9:00 EST Telemedicine [facility] Urology [address] [phone] Nurse Call, [facility] Urology 10/31/2024 15:00 EST Post-op Visit [facility] [address] [phone] Clemente Gerardo MD [address] [place] [address], [place] [phone] 12/06/2024 10:15 EST Office Visit [facility] Ophthalmology [facility] [address] [place] [address] Spike Puentes MD [address] [place] [phone] Scheduled Procedures Name Priority Associated Diagnoses Date/Ti me INSERTION, PENILE PROSTHESIS, INFLATABLE, 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 10/14/2024 11:00 EST documented as of this encounter Procedures Procedure Name Priority Date/Time Associated Diagnosis Comments EXTENDED HOLTER MONITOR (7 OR 14 DAY) Routine 02/10/2023 15:23 EDT Palpitations documented in this encounter Results * EXTENDED HOLTER- 14 DAY MAILED TO PATIENT (02/10/2023 15:23 EDT) Anatomical Region Laterality Modality Other Narrative 02/14/2023 14:34 EDT Patient had a min HR of 39 bpm, max HR of 165 bpm, and avg HR of 74 bpm. Predominant underlying rhythm was Sinus Rhythm. 7 Supraventricular Tachycardia runs occurred, the run with the fastest interval lasting 4 beats with a max rate of 162 bpm, the longest lasting 13 beats with an avg rate of 112 bpm. Junctional Rhythm was present. Supraventricular Tachycardia and Junctional Rhythm were detected within +/- 45 seconds of symptomatic patient event(s). Isolated SVEs were rare (<1.0%), SVE Couplets were rare (<1.0%), and SVE Triplets were rare (<1.0%). Isolated VEs were rare (<1.0%), VE Couplets were rare (<1.0%), and no VE Triplets were present. Asad Olguin MD CARDIAC SERVICES ORD ERABLES documented in this encounter Visit Diagnoses Diagnosis Palpitations Erectile dysfunction after radical prostatectomy documented in this encounter Care Teams Toddler Nanny Relationship Specialty Start Date End Date Vel Santos MD PCP - General 10/30/11 03/09/23 documented as of this encounter
--- OUTSIDE RECORDS SUMMARY | 2024-07-19 22:12 | XMS_ITS | Encounter Summary ---
Author Organization [facility] Address [address] [place] [address] Care Team Providers Care Resource Manager Name Role Phone Vel Santos MD Primary Care Provider Unava ilable Reason for Visit * Reason Onset Date Comments Immunizations 06/30/2022 Encounter Details Date Type Department Care Team (Late st Contact Info) Description 06/30/[address] [facility] Medicine [place] [address] Swati Brewster, Gerardo [address] [place], [place] [phone] Vel Santos MD Immunizations Social History Tobacco Use Types Packs/Day Years [...] encounter Miscellaneous Notes * Telephone Encounter - Mika Wasserman MA - 07/01/2022 1127 EDT MyChart message sent. * Telephone Encounter - Claudette Maier LPN - 06/30/2022 1116 EDT Should be able to have done at pharmacy without a prescription needed. Please relaye to pt/. * Telephone Encounter - Mika Wasserman MA - 06/30/2022 0959 EDT Xin (, on АННА) calling asking for Rx for 1st Shingrix dose to be done at [facility] pharmacy in [place]. Is this needed or can direct pt to go there whenever? documented in this encounter Plan of Treatment Upcoming Encounters Date Type Department Care Team (Late st Contact Info) Description 10/04/2024 9:50 EST Appointment [facility] Pre-Surgical Testing [address] [place], [place] [phone] 10/14/2024 11:00 EST Hospital Encounter [facility] OR [address] [place] [address] [phone] Clemente Gerardo MD [address] [place] [phone] 10/14/2024 11:00 EST - 10/14/2024 14:35 EST Surgery [facility] OR [address] [place] [address] [phone] Clemente Gerardo MD [address] [place] [address] [phone] Implantation of inflatable penile prosthesis [29655 (CPT??)] 10/17/2024 9:00 EST Telemedicine [facility] Urology [address] [address] Nurse Call, [facility] Urology 10/31/2024 15:00 EST Post-op Visit [facility] [address] [phone] Clemente Gerardo MD [address] [facility], [address] [place] [phone] 12/06/2024 10:15 EST Office Visit [facility] [address] [place], [place] [phone] Spike Puentes MD [address] [place] [phone] Scheduled Procedures Name Priority Associated Diagnoses Date/Ti me INSERTION, PENILE PROSTHESIS, INFLATABLE, 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 10/14/2024 11:00 EST documented as of this encounter Visit Diagnoses Not on filedocumented in this encounter Care Teams Resource Manager Relationship Specialty Start Date End Date Vel Santos MD PCP - General 10/30/11 03/09/23 documented as of this encounter
--- OUTSIDE RECORDS SUMMARY | 2024-07-19 22:12 | XMS_ITS | Encounter Summary ---
Author Organization [facility] Address [address] [place] [address] Care Team Providers Care Wine Cellar Worker Name Role Phone Vel Santos MD Primary Care Provider Unava ilable Reason for Visit * Reason Onset Date Comments COVID-19 08/03/2022 Encounter Details Date Type Department Care Team (Late st Contact Info) Description 08/03/2022 Telephone [facility] - [address] [phone] [place] [address] [place] [phone] COVID-19 Social History Tobacco Use Types Packs/Day Years [...] Dispensed Refills Start Date End Da te nirmatrelvir-ritonavir (PAXLOVID 300-100, EUA,) 300 mg (150 mg x 2)-100 mg tablet Take 3 Tablets by mouth 2 times daily for 5 days. 30 Tablet 08/03/2022 08/08/2022 nirmatrelvir-ritonavir (PAXLOVID 300-100, EUA,) 300 mg (150 mg x 2)-100 mg tablet Take 3 Tablets by mouth 2 times daily for 5 days. 30 Tablet 08/03/2022 08/03/2022 documented in this encounter Miscellaneous Notes * Telephone Encounter - Alexandria Frankel MD - 08/03/2022 1222 EDT Pt called because pharmacy did not have rx. Confirmed it was sent to them this morning -[facility]. Resent rx. * Telephone Encounter - Tashi Marks MD - 08/03/2022 0746 EDT Call from patient 1015 last night. Tested pos for Covid. Day 2 of symptoms. Would like Paxlovid. Immunized. Paxlovid sent. With regards to clopidogrel, well outside critical post-stenting period documented in this encounter Plan of Treatment Upcoming Encounters Date Type Department Care Team (Late st Contact Info) Description 10/04/2024 9:50 EST Appointment [facility] Pre-Surgical Testing [address] [place], [place] [phone] 10/14/2024 11:00 EST Hospital Encounter [facility] OR [address] [place], [place] [phone] Clemente Gerardo MD 111 [facility], Level [address] [place] [phone] 10/14/2024 11:00 EST - 10/14/2024 14:35 EST Surgery [facility] OR [address] [place] [address] [phone] Clemente Gerardo MD [address] [place] [address] [address] [place] [phone] Implantation of inflatable penile prosthesis [24975 (CPT??)] 10/17/2024 9:00 EST Telemedicine [facility] Urology [address] [phone] Nurse Call, [facility] Urology 10/31/2024 15:00 EST Post-op Visit [address] [phone] Clemente Gerardo MD [address] [place] [address] [phone] 12/06/2024 10:15 EST Office Visit [address] [address] Spike Puentes MD [address] [place] [phone] Scheduled Procedures Name Priority Associated Diagnoses Date/Ti me INSERTION, PENILE PROSTHESIS, INFLATABLE, 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 10/14/2024 11:00 EST documented as of this encounter Visit Diagnoses Not on filedocumented in this encounter Discontinued Medications Medication Sig Discontinue Reason Start Date End Da te diazePAM (VALIUM) 5 mg tablet 1-2 tabs 90 minutes before MRI- will need a pile driver 10/30/2020 08/03/2022 nirmatrelvir-ritonavir (PAXLOVID 300-100, EUA,) 300 mg (150 mg x 2)-100 mg tablet Take 3 Tablets by mouth 2 times daily for 5 days. 08/03/2022 08/03/2022 documented as of this encounter Care Teams Wine Cellar Worker Relationship Specialty Start Date End Date Vel Santos MD PCP - General 10/30/11 03/09/23 documented as of this encounter
--- OUTSIDE RECORDS SUMMARY | 2024-07-19 22:12 | XMS_ITS | Encounter Summary ---
Author Organization [facility] Address [address] [place] [address] Care Team Providers Care Organ Recovery Coordinator Name Role Phone Vel Santos MD Primary Care Provider Unava ilable Reason for Referral * Referral (Routine) - Specialty Report Received Specialty Diagnoses / Procedures Referred By Contact Referred To Contact Gastroenterology and Hepatology Diagnoses Colon cancer screening History of colonic polyps Procedures COLONOSCOPY MN COLONOSCOPY FLX DX W/COLLJ SPEC WHEN PFRMD MN COLONOSCOPY W/BIOPSY SINGLE/MULTIPLE MN COLSC FLX W/REMOVAL LESION BY HOT BX FORCEPS ANESTHESIA LOWER INTST ENDOSCOPIC PX NOS Vel Santos MD [facility] [address] [place] [address] Referral ID Status Reason Start Date Expiration Date V isits Requested Visits Authorized [id number] Specialty Report Received 12/11/2022 1 1 Reason for Visit * Reason Onset Date Comments Referral Request 12/11/2022 Colonoscopy ref erral Encounter Details Date Type Department Care Team (Late Contact Info) Description 12/11/2022 Telephone [facility] Medicine [place] [address] [address] , [facility] [address] [place] [address] Vel Santos MD Referral Request (Colonoscopy referral) Social History Tobacco Use Types Packs/Day Years [...] Dispensed Refills Start Date End Da te polyethylene glycol (MIRALAX) 17 gram/dose powder Instructions mailed once procedure scheduled. 238 g 12/11/2022 06/09/2023 documented in this encounter Miscellaneous Notes * Telephone Encounter - Stella May RN - 12/11/2022 1522 EST Called and explained the wait will be months * Telephone Encounter - Vel Santos MD - 12/11/2022 1507 EST Call patient, referral [facility] . They will call him to schedule it. 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 Roland stated that he is not exp anysx, but is overdue for a colonoscopy. Roland requesting a referral for a colonoscopy. Would like theprocedure done at [facility]. Xin asks that we call her when the referral has been placed. Stated that Roland is overdue for a colonoscopy and would like to set up a pre op visit but isnt sure if that is to be done with pcp or with [facility]. documented in this encounter Plan of Treatment Upcoming Encounters Date Type Department Care Team (Late st Contact Info) Description 10/04/2024 9:50 EST Appointment [facility] Pre-Surgical Testing [address] [place] [address] [phone] 10/14/2024 11:00 EST Hospital Encounter [facility] OR [address] [place] [address] [phone] Clemente Gerardo MD [address] [place] [address] [phone] 10/14/2024 11:00 EST - 10/14/2024 14:35 EST Surgery [facility] OR [address] [place] [address] [phone] Clemente Gerardo MD [address] [place] [address] [phone] Implantation of inflatable penile prosthesis [84139 (CPT??)] 10/17/2024 9:00 EST Telemedicine [address] [phone] Nurse Call, [facility] Urology 10/31/2024 15:00 EST Post-op Visit [address] [phone] Clemente Gerardo MD [address] [place] [address] [phone] 12/06/2024 10:15 EST Office Visit [facility] [address] [place] [address] Spike Puentes MD [address] [place] [phone] Pending Results Name Type Priority Associated Diagnoses Date /Time COLONOSCOPY GI Routine Colon cancer screening History of colonic polyps 02/02/2023 9:35 EDT Scheduled Orders Name Type Priority Associated Diagnoses Orde r Schedule COLONOSCOPY GI Routine Colon cancer screening History of colonic polyps Expected: 12/11/2022 (Approximate), Expires: 06/10/2024 Scheduled Procedures Name Priority Associated Diagnoses Date/Ti me INSERTION, PENILE PROSTHESIS, INFLATABLE, 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 10/14/2024 11:00 EST documented as of this encounter Visit Diagnoses Diagnosis Colon cancer screening- Primary Special screening for malignant neoplasms, colon History of colonic polyps Personal history of colonic polyps Erectile dysfunction after radical prostatectomy documented in this encounter Care Teams Organ Recovery Coordinator Relationship Specialty Start Date End Date Vel Santos MD PCP - General 10/30/11 03/09/23 documented as of this encounter
--- OUTSIDE RECORDS SUMMARY | 2024-07-19 22:12 | XMS_ITS | Encounter Summary ---
Author Organization [facility] Address [address] [place] [address] Care Team Providers Care Nursing Clinical Director Name Role Phone Vel Santos MD Primary Care Provider Unava ilable Reason for Referral * Consult (Routine/Next Available) - Receiving Office to Obtain Authorization Specialty Diagnoses / Procedures Referred By Yi cummings Referred To Contact Cardiology Diagnoses Palpitations Asad Olguin MD [address] [place] [address] [facility] [address] [place], [place] [address] [address] Referral ID Status Reason Start Date Expiration Date Visits Requested Visits Authorized [id number] Receiving Office to Obtain Authorization Specialty Services Required 3 1 1 Question Answer Reason for Request: evaluation of frequent palpitations * Cardiology (Routine/Next Available) - Authorized Specialty Diagnoses / Procedures Referred By Contac t Referred To Contact Diagnoses Palpitations Procedures ZIO PATCH DE EXTERNAL ECG REC>7D<15D RECORDING DE EXTERNAL ECG REC>7D<15D REVIEW & INTERPRETATION Asad Olguin MD [address] [place] [address] [facility] Referral ID Status Reason Start Date Expiration Date V isits Requested Visits Authorized [id number] Authorized 01/14/2023 1 1 * Cardiology (Routine/Next Available) - Receiving Office to Obtain Authorization Specialty Diagnoses / Procedures Referred By Yi t Referred To Contact Diagnoses Palpitations Procedures TRANSTHORACIC ECHO (TTE) COMPLETE DE ECHO HEART XTHORACIC,COMPLETE W DOPPLER Asad Olguin MD [address] [place] [phone] [facility] Referral ID Status Reason Start Date Expiration Date Visits Requested Visits Authorized [id number] Receiving Office to Obtain Authorization 01/14/2023 1 1 Reason for Visit * Reason Comments Palpitations Patient arrives ambu latory to triage with steady gait complaining of a two hour period of feeling palpitations, flushed, dizzy, and shortness of breath. Recent admission to [facility] for the same with a diagnosis of ESTER. History of MIx2 and CVA. Encounter Details Date Type Department Care Team (Late st Contact Info) Description 01/14/2023 18:17 EDT - 01/14/2023 20:37 EDT [facility] [place] [address] [place] [phone] Young De La Rosa MD [address] [place] [phone] Palpitations (Primary Dx) Discharge Disposition: Home or Self [...] 18:08 EDT documented as of this encounter Last Filed Vital Signs Vital Sign Reading Time Taken Comments Blood Pressure 142/79 01/14/20232034 EDT Pulse 82 01/14/20231807 EDT Temperature 36.7 ??C (98.1 ??F) 01/14/20231807 EDT Respiratory Rate 18 01/14/20231949 EDT Oxygen Saturation 94% 01/14/20231949 EDT Inhaled Oxygen Concentration - - Weight 108.9 kg (240 lb) 01/14/20231807 EDT Height 180.3 cm (5' 11) 01/14/20231807 EDT Body Mass Index 33.47 01/14/20231807 EDT documented in this encounter Functional Status Functional Status Response Date of Assess ment Are you deaf or do you have serious difficulty h earing? No 01/14/2023 Because of a physical, menta l, or emotional condition, does this person have difficulty doing errands alone such as visiting a doctor's office or shopping? No 03/02/2018 documented as of this encounter Discharge Instructions * Discharge Instructions* Asad Olguin MD - 01/14/2023 20:24 EDT -Thank you for choosing [facility] for your medical care today. -Evaluation today showed no acute abnormalities. -Referral for outpatient cardiology follow-up, as well as Zio patch monitoring and echocardiogram has been placed. You should expect a phone call from the contestant coordinator to set up your appointments. -Additionally, a Lyme antibody test has been sent. The results of this test will be available in your MyChart. Please discussed the results with your primary care provider. -Return to the emergency department with any worsening or otherwise concerning symptoms. documented in this encounter Medications at Time [...] 3cc 02/17/2017 LANCETS & BLOOD GLUCOSE STRIPS [facility] test strips and lancets for glucose monitor , Sig: test once a day test once a day 09/20/2018 nitroGLYCERIN (NITROSTAT) 0.[address] 1 Tablet under the tongue as needed. 07/07/2014 Cqeps-4-BMO-EPA-Fish Oil 1,000 (120-180) mg capsule Take 1,000 [...] Code Departure Means Destination Home or Self Usp documented in this encounter ED Notes * Joao Ramos RN - 01/14/20232035 EDT Patient verbalized understanding of all discharge instructions, including prescriptions and follow up. IV removed, catheter intact, and dressing applied. Left ambulatory without incident. * Asad Olguin MD - 01/14/20231934 EDT Emergency Department Visit This documentation is recorded by Andree Johnson acting as Scribe under the direction and presence ofYoung De La Rosa MD and Asad Olguin MD. Young De La Rosa MD and Asad Olguin MD: I personally performed the services recorded by the scribe in my presence. I confirm the scribe's documentation has been reviewed by me to accurately and completely record my work, treatment, procedures, and medical decision making. Medical Decision Making The patient is a 72-year-old male with past medical history significant for hyperlipidemia, hypertension, CAD, prostate cancer, CVA, RA who presented to the emergency department for evaluation of palpitations. Differential diagnosis includes was not limited to cardiac dysrhythmia, ACS, electrolyte abnormality, infection. Plan of care includes physical examination, laboratory analysis to assess for etiology of the patient's acute symptoms. The patient was hypertensive at 142/79 on ED arrival, otherwise hemodynamically stable and afebrile. No acute abnormality noted on physical examination. EKG was assessed, showing sinus rhythm at a rate of 71. No ST segment elevations noted. No evidence of cardiac dysrhythmia. Discussed with the patient at the bedside, however, that though no cardiac dysrhythmia was noted on his twelve-lead EKG, pr ior episode could not be ruled out. Plan is to maintain on cardiac monitoring throughout the remainder of the ED course. Laboratory assessment showed BMP within normal limits, TSH within normal limits, CBC within normal limits. ACS considered less likely given lack of chest pain, duration of symptoms, and EKG findings without acute ischemia. No indication at this time for further assessment with serial troponin measurement given low likelihood of ACS. The patient was maintained on cardiac monitoring throughout the remainder of the ED course. No dysrhythmia was noted. Patient reported resolution of prior symptoms. He was able to ambulate without difficulty or return of symptoms. Further assessment in the outpatient setting were discussed with thepatient at the bedside. No immediate indication at this time for hospital admission given overall reassuring work-up. Patient was amenable to plan for discharge with outpatient follow-up. Referral for outpatient TTE and remote cardiac monitoring was placed. The patient was instructed to return to the emergency department with any worsening or otherwise concerning symptoms. Relevant Data as of 01/15/23150Jan 14, 20231944 I, Young De La Rosa MD, performed a history and exam of this patient and discussed the case with the resident. I have reviewed and edited this note, and the documentation is consistent with my findings, assessment and plan. I fully participated in the medical decision making. Chronic recurrent episodes of palpitations and presyncope, has had loop recorder cardiac evaluationwith no documented arrhythmias or clear underlying diagnosis/explanation. Normal sinus rhythm here,chemistry is reassuring, consider paroxysmal arrhythmia although given he has been extensively worked up for this in the past without any identified events it does not seem that admitting him for telemetry monitoring would be worthwhile, we will set up a Holter monitor and potentially echo given his murmur although he does not have any concerning symptoms of critical aortic stenosis that would require emergent cardiac evaluation or inpatient echo. PCP to coordinate outpatient follow-up needs [SP] Relevant Data User Index [SP] Young De La Rosa MD An EKG was obtained and independently interpreted. Laboratory data was reviewed. Medical Decision Making Amount and/or Complexity of Data Reviewed Labs: ordered. Final diagnoses: Palpitations Disposition: Discharged Chief complaint: Palpitations. GUILLE Garcia is a 72 y.o. male with history of transient ischemic attack s/p angioplasty with stent, coronary artery disease, chronic anticoagulation, cerebrovascular accident, atypical seizure, essential hypertension, morbid obesity, and near syncope who presents to the ED for reported worsening of his chronic palpitations.The patient has chronic recurrent episodes of palpitations and presyncope. He says that his palpitations are associated with dizziness, shortness of breath, and feeling flushed. He reports that his symptoms increased in frequency and intensity about 3 weeks ago. He saysthat his symptoms are debilitating and makes him weak so he wants to sit down and rest. He had a loop recorder about 4 years ago for cardiac evaluation for 9 months with no documented arrhythmias or clear underlying diagnosis or explanation. History was provided by: Patient. Records reviewed include: Past medical history. Patient's pertinent PMH, FH, SH were reviewed and edited as necessary. Nursing notes reviewed. A medical screening exam was performed. Physical Exam BP (!) 142/79 Pulse 82 Temp 36.7 ??C (98.1 ??F) (Oral) Resp 18 Ht 180.3 cm (71) Wt (!) 108.9 kg (240 lb) SpO2 94% BMI 33.47 kg/m?? Physical Exam Vitals and nursing note reviewed. Constitutional: General: He is not in acute distress. Cardiovascular: Rate and Rhythm: Normal rate and regular rhythm. Pulses: Normal pulses. Pulmonary: Effort: Pulmonary effort is normal. Breath sounds: Normal breath sounds. Abdominal: General: Abdomen is flat. There is no distension. Tenderness: There is no abdominal tenderness. Musculoskeletal: Right lower leg: No edema. Left lower leg: No edema. Skin: General: Skin is warm and dry. Capillary Refill: Capillary refill takes less than 2 seconds. Neurological: Mental Status: He is alert. Procedures Procedures * Joao Ramos, RN - 01/14/2023 1906 EDT Pt and family provided water w/provider permission. documented in this encounter Plan of Treatment Upcoming Encounters Date Type Department Care Team (Late st Contact Info) Description 10/04/2024 9:50 EST Appointment [facility] Pre-Surgical Testing [address] [place] [address] [phone] 10/14/2024 11:00 EST Hospital Encounter [facility] OR [address] [place] [address] [phone] Clemente Gerardo MD [address] [place] [phone] 10/14/2024 11:00 EST - 10/14/2024 14:35 EST Surgery [facility] OR [address] [place] [address] [phone] Clemente Gerardo MD [address] [place] [phone] Implantation of inflatable penile prosthesis [89126 (CPT??)] 10/17/2024 9:00 EST Telemedicine [address] [phone] Nurse Call, [facility] Urology 10/31/2024 15:00 EST [facility] [phone] Clemente Gerardo MD [address] [place] [phone] 12/06/2024 10:15 EST [facility] [address] [place] [address] Spike Puentes MD [address] [place] [phone] Scheduled Orders Name Type Priority Associated Diagnoses Order Schedule TRANSTHORACIC ECHO (TTE) COMPLETE Echocardiography Routine Palpitations Expected: 01/14/2023, Expires: 01/14/2025 Scheduled Procedures Name Priority Associated Diagnoses Date/Ti me INSERTION, PENILE PROSTHESIS, INFLATABLE, 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 10/14/2024 11:00 EST Scheduled Referrals Name Type Priority Associated Diagnoses Order Schedule AMB CONS/FOLLOW UP CARDIOLOGY Outpatient Referral Routine/Next Available Palpitations Expected: 02/14/2023 (Approximate), Expires: 01/15/2024 documented as of this encounter Procedures Procedure Name Priority Date/Time Associated Diagnosis Comments ECG REPORT - SCANNED 01/18/2023 21:19 EDT HOLD GREEN TOP Routine 01/14/2023 18:42 EDT HOLD BLUE TOP Routine 01/14/2023 18:42 EDT THYROID CASCADE Add-On 01/14/2023 18:42 EDT LYME AB STAT Add-on 01/14/2023 18:42 EDT COMPLETE BLOOD COUNT AND DIFFERENTIAL STAT 01/14/2023 18:42 EDT BASIC METABOLIC PANEL (BMP) STAT 01/14/2023 18:42 EDT EKG 12-LEAD STAT 01/14/2023 18:04 EDT documented in this encounter Results * EXTENDED [...] Asad Olguin MD CARDIAC SERVICES ORD ERABLES * ECG REPORT - SCANNED (01/18/2023 21:19 EDT) 01/18/2023 21:1 9 EDT Scan 2 [employer] PROCEDURE/MINOR BROOKE GICAL ORDERABLES * LYME AB (01/14/2023 18:42 EDT) Lyme Ab Negative Negative 01/15/2023 9:[address] [facility] Blood VENOUS BLOOD / Unknown Venipuncture / Unknown 01/14/2023 18:42 EDT 01/14/2023 18:48 EDT Young De La Rosa MD IMMUNOLOGY AND SEROL OGY ORDERABLES [facility] [address] [place] [address] * THYROID CASCADE (01/14/2023 18:42 EDT) TSH 2.22 0.47 - 4.68 mIU/L 01/14/2023 19:[address] [facility] Blood VENOUS BLOOD / Unknown Venipuncture / Unknown 01/14/2023 18:42 EDT 01/14/2023 18:[address] [facility] - 01/14/2023 19:48 EDT NOTE: The results of this assay can be falsely lowered due to the consumption of Biotin. Asad Olguin MD CHEMISTRY & BLOOD GA S ORDERABLES Performing Organization Address City/[facility] [place] [facility]/ZIP Co de Phone Number [facility] [address] [place] [address] * HOLD GREEN TOP (01/14/2023 18:42 EDT) Hold Hold 01/14/2023 20:[address] [facility] Blood VENOUS BLOOD / Unknown Venipuncture / Unknown 01/14/2023 18:42 EDT 01/14/2023 18:48 EDT Young De La Rosa MD LAB INFO SERVICE AND SUPPORT & PHONE RESULT Performing Organization Address [facility] [place] [facility]/ZIP Co de Phone Number [facility] [address] [place] [address] * HOLD BLUE TOP (01/14/2023 18:42 EDT) Hold Hold 01/14/2023 20:[address] [facility] Blood VENOUS BLOOD / Unknown Venipuncture / Unknown 01/14/2023 18:42 EDT 01/14/2023 18:48 EDT Young De La Rosa MD LAB INFO SERVICE AND SUPPORT & PHONE RESULT Performing Organization Address [facility] [place] [facility] Co de Phone Number [facility] [address] [place] [address] * BASIC METABOLIC PANEL (BMP) (01/14/2023 18:42 EDT) Sodium 140 136 - 145 mmol/L 01/14/2023 19:[address] [facility] Potassium 4.2 3.5 - 5.0 mmol/L 01/14/2023 19:[facility] Chloride 101 96 - 110 mmol/L 01/14/2023 19:07 [facility] CO2 Total 25 22 - 32 mmol/L 01/14/2023 19:07 [facility] Anion Gap 14 5 - 14 01/14/2023 19:07 [facility] Glucose 88 70 - 100 mg/dL 01/14/2023 19:07 [facility] Calcium 9.5 8.5 - 10.5 mg/dL 01/14/2023 19:07 [facility] BUN 17 10 - 26 mg/dL 01/14/2023 19:07 [facility] Creatinine 1.00 0.66 - 1.25 mg/dL 01/14/2023 19:07 [facility] eGFR 80 >60 mL/min/1.73 m2 01/14/2023 19:07 [facility] Blood VENOUS BLOOD / Unknown Venipuncture / Unknown 01/14/2023 18:42 EDT 01/14/2023 18:48 EDT Young De La Rosa MD CHEMISTRY & BLOOD GA S ORDERABLES Performing Organization Address City/State/[facility] Co de Phone Number [facility] [address] [place] [address] * COMPLETE BLOOD COUNT AND DIFFERENTIAL (01/14/2023 18:42 EDT) WBC 5.10 4.00 - 10.40 K/cmm 01/14/2023 19:02 [facility] RBC 5.18 4.36 - 5.78 M/cmm 01/14/2023 19:02 [facility] Hemoglobin 16.6 13.8 - 17.3 gm/dL 01/14/2023 19:02 [facility] HCT 47.7 39.5 - 50.2 % 01/14/2023 19:02 [facility] MCV 92 81 - 95 fl 01/14/2023 19:02 [facility] MCH 32.0 27.6 - 33.0 pg 01/14/2023 19:02 [facility] MCHC 34.8 32.8 - 36.4 gm/dL 01/14/2023 19:02 [facility] RDW-CV 12.9 <14.2 % 01/14/2023 19:02 [facility] RDW-SD 43.3 <46.0 fl 01/14/2023 19:02 [facility] PLT 184 141 - 377 K/cmm 01/14/2023 19:02 [facility] MPV 9.8 9.5 - 12.7 fl 01/14/2023 19:02 [facility] % Neutrophils 50.1 % 01/14/2023 19:02 [facility] % Lymphocytes 36.1 % 01/14/2023 19:02 [facility] % Monocytes 10.6 % 01/14/2023 19:02 [facility] % Eosinophils 1.6 % 01/14/2023 19:02 [facility] % Basophils 1.0 % 01/14/2023 19:02 [facility] % Immature Grans 0.6 % 01/15/20 19:02 [facility] Absolute Neutrophils 2.56 2.20 - 8.85 K/cmm 01/14/2023 19:02 [facility] Absolute Lymphocytes 1.84 1.09 - 3.30 K/cmm 01/14/2023 19:02 [facility] Absolute Monocytes 0.54 0.10 - 0.80 K/cmm 01/14/2023 19:02 [facility] Absolute Eosinophils 0.08 0.03 - 0.61 K/cmm 01/14/2023 19:02 [facility] ABS Basophils 0.05 0.01 - 0.11 K/cmm 01/14/2023 19:02 [facility] Absolute Immature Grans 0.03 0.00 - 0.06 K/cmm 01/14/2023 19:02 [facility] Type of Differential: Auto 01/14/2023 19:[address] [facility] Blood VENOUS BLOOD / Unknown Venipuncture / Unknown 01/14/2023 18:42 EDT 01/14/2023 18:48 EDT Young De La Rosa MD PACKAGES & DNA PROBE ORDERABLES [facility] [address] [place] [address] * EKG 12-LEAD (01/14/2023 18:04 EDT) 01/14/2023 18:[address] [facility] - 01/17/2023 12:19 EDT ?[facility] Emergency ? Test Date: ?2023-01-14 Pat Name: ? GLORIA GARCIA ?Department: ?? ED ? Room: ? Gender: ? Male ? Hvac Engineer: ?? [id number] : ?1950 ? Requested By: LADI Mcdonald Order Number: [id number] ? Esvin CONNOLLY: ?? FRANKLIN JESUS MD ? Measurements Intervals ?[place] ? Rate: ? 71 ? P: ?46 DE: ? 195 ?QRS: ?-79 QRSD: ? 125 ?T: ?36 QT: ? 400 ? QTc: ?437 ? Interpretive Statements SINUS RHYTHM LEFT ANTERIOR FASCICULAR BLOCK Compared to ECG 08/03/2018 16:51:36 Sinus bradycardia no longer present I reviewed the tracing and have either agreed or edited the findings in this report. Electronically Signed On 01-17-2023 12:19:16 EDT by FRANKLIN JESUS MD. Procedure Note Franklin Jesus MD - 01/17/2023 [facility] Emergency Test Date: 2023-01-14 Pat Name: GLORIA GARCIA Department: ED Room: Gender: Male Hvac Engineer: [id number] : 1950 Requested By: LADI Mcdonald Order Number: [id number] Esvin MD: FRANKLIN JESUS MD Measurements Intervals [place] Rate: 71 P: 46 DE: 195 QRS: -79 QRSD: 125 T: 36 QT: 400 QTc: 437 Interpretive Statements SINUS RHYTHM LEFT ANTERIOR FASCICULAR BLOCK Compared to ECG 08/03/2018 16:51:36 Sinus bradycardia no longer present I reviewed the tracing and have either agreed or edited the findings inthis report. Electronically Signed On 01-17-2023 12:19:16 EDT by FRANKLIN IVAN. Young De La Rosa MD CARDIAC ECG ORDERABL ES [facility] EKG documented in this encounter Visit Diagnoses Diagnosis Palpitations- Primary Palpitations Erectile dysfunction after radical prostatectomy documented in this encounter Care Teams Nursing Clinical Director Relationship Specialty Start Date End Date Vel Santos MD PCP - General 10/30/11 03/09/23 documented as of this encounter
--- OUTSIDE RECORDS SUMMARY | 2024-07-19 22:12 | XMS_ITS | Encounter Summary ---
Author Organization [facility] Address [address] [place] [address] Care Team Providers Care Professor Of Business Administration Name Role Phone Vel Santos MD Primary Care Provider Unava ilable Reason for Visit * Reason Onset Date Comments Requesting Sooner Appointment 02/21/2022 Steven schaffer needs acute visit next wk, wants to see TC Rib Injury 02/21/2022 Chest Pain 02/21/2022 Appointment Related 02/21/2022 Encounter Details Date Type Department Care Team (Late st Contact Info) Description 02/21/2022 Telephone [facility] Family Medicine [address] [address] [address], [facility] [address] [place] [address] Vel Santos MD Requesting Sooner Appointment (Patient needs acute visit next wk, wants to see TC); Rib Injury; Chest Pain; Appointment Related Social History Tobacco Use Types Packs/Day Years [...] * Telephone Encounter - Felicia Celis - 02/21/2022 1610 EDT I called patient, got him scheduled for Thursday. * Telephone Encounter - Raina Trevino RN - 02/21/2022 1602 EDT To Front-Ok to schedule in an acute spot * Telephone Encounter - Felicia Celis - 02/21/2022 1406 EDT Patient's Xin calling to report 2 months back patient broke his rib. 1 month back he fell and re-injured his rib. He reports pain level is getting worse not better. He wants to see Dr. Santos, can we schedule acute visit next wk with him? Advise. documented in this encounter Plan of Treatment Upcoming Encounters Date Type Department Care Team (Late st Contact Info) Description 10/04/2024 9:50 EST Appointment [facility] Pre-Surgical Testing [address] [place] [phone] 10/14/2024 11:00 EST Hospital Encounter [facility] OR [address] [place] [address] [phone] Clemente Gerardo MD [address] [place] [address], [address] [place] [phone] 10/14/2024 11:00 EST - 10/14/2024 14:35 EST Surgery [facility] OR [address] [place] [address] [phone] Clemente Gerardo MD [address] [facility] [address] [place] [phone] Implantation of inflatable penile prosthesis [84382 (CPT??)] 10/17/2024 9:00 EST Telemedicine [facility] [phone] Nurse Call, [facility]rology 10/31/2024 15:00 EST Post-op Visit [address] [phone] Clemente Gerardo MD [address] [place] [phone] 12/06/2024 10:15 EST Office Visit [facility] [address] [place], [place] 614[address] Spike Puentes MD [address] [place] [phone] Scheduled Procedures Name Priority Associated Diagnoses Date/Ti me INSERTION, PENILE PROSTHESIS, INFLATABLE, 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 10/14/2024 11:00 EST documented as of this encounter Visit Diagnoses Not on filedocumented in this encounter Care Teams Professor Of Business Administration Relationship Specialty Start Date End Date Vel Santos MD PCP - General 10/30/11 03/09/23 documented as of this encounter
--- OUTSIDE RECORDS SUMMARY | 2024-07-19 22:12 | XMS_ITS | Encounter Summary ---
Author Organization [facility] Address [address] [place] [address] Care Team Providers Care Tile Fitter Name Role Phone Vel Santos MD Primary Care Provider Unava ilable Reason for Visit * Reason Onset Date Comments GI Bleeding 02/10/2023 Encounter Details Date Type Department Care Team (Late st Contact Info) Description 02/10/2023 Telephone [facility] Gastroenterology - [address] [phone] Josesito Handy, DO [address] [facility], [facility] [address] [place] [phone] GI Bleeding Social History Tobacco Use Types Packs/Day Years [...] encounter Miscellaneous Notes * Telephone Encounter - Josesito Handy DO - 02/10/2023 1031 EDT Called patient to check in as he had not arrived to ER yet (we discussed him going to the ER overnight). He decided to wait until this morning to go to the ER. His will be driving him to the ER now. He continues to have significant rectal bleeding. Overall impression is post-polypectomy bleeding from colonoscopy about one week prior. Anticipate admission to hospitalist service; if on-going bleeding, will need bowel prep and colonoscopy. Please consult GI when patient arrives to ER. Josesito Handy DO PGY5 Gastroenterology & Hepatology Fellow documented in this encounter Plan of Treatment Upcoming Encounters Date Type Department Care Team (Late st Contact Info) Description 10/04/2024 9:50 EST Appointment [facility] Pre-Surgical Testing [address] [place] [address] [phone] 10/14/2024 11:00 EST Hospital Encounter [facility] OR [address] [place] [address] [phone] Clemente Gerardo MD [address] [place] [address] [phone] 10/14/2024 11:00 EST - 10/14/2024 14:35 EST Surgery [facility] [place] [address] [place] [address] [phone] Clemente Gerardo MD [address] [place] [address] [phone] Implantation of inflatable penile prosthesis [07409 (CPT??)] 10/17/2024 9:00 EST Telemedicine [facility]rolog[address] [phone] Nurse Call, [facility] Urology 10/31/2024 15:00 EST Post-op Visit [address] [phone] Clemente Gerardo MD [address] [place] [address], Level [address] [place] [phone] 12/06/2024 10:15 EST Office Visit [address] [phone] Spike Puentes MD [address] [place] [phone] Scheduled Procedures Name Priority Associated Diagnoses Date/Ti me INSERTION, PENILE PROSTHESIS, INFLATABLE, 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 10/14/2024 11:00 EST documented as of this encounter Visit Diagnoses Not on filedocumented in this encounter Care Teams Tile Fitter Relationship Specialty Start Date End Date Vel Santos MD PCP - General 10/30/11 03/09/23 documented as of this encounter
--- OUTSIDE RECORDS SUMMARY | 2024-07-19 22:12 | XMS_ITS | Encounter Summary ---
Author Organization [facility] Address [address] [place] [address] Care Team Providers Care Donor Support Technician Name Role Phone Vel Santos MD Primary Care Provider Unava ilable Reason for Visit * Reason Onset Date Comments Medications Refill 06/30/2022 Encounter Details Date Type Department Care Team (Late st Contact Info) Description 06/30/2022 Refill [facility] Medicine [facility] [address] Ger[address] [place], [place] [phone] Vel Santos MD Medications Refill Social History [...] 250 mg 20 mL 3 06/30/2022 03/06/2023 buPROPion (WELLBUTRIN SR) 150 mg SR tablet Take 1 Tablet by mouth daily. 90 Tablet 1 06/30/2022 10/16/2022 documented in this encounter Miscellaneous Notes * Telephone Encounter - Claudette Maier LPN - 06/30/2022 1425 EDT [facility] MEDICATION REFILL Medication: bupropion Medication, dose, directions verified: yes Pharmacy verified: yes Last office visit: 02/24/2022 Next office visit: none [facility] CONTROLLED MEDICATION REFILL Medication: testosterone Medication, dose, directions verified: yes Pharmacy verified: yes Last office visit: 02/24/2022 Next office visit: none Prescription due to be filled: Due Last VPMS: 06/30/2022 -Per VPMS pt last filled medication on 02/04/2022 for 84d supply with no remaining refills. Last CSA: Due Insurance may not pay for two smaller vials of testosterone over one larger one, will attempt to send in and see if insurance covers. PLEASE NOTE last Rx was written requesting 2 10mL vials. * Telephone Encounter - Erma Marie - 06/30/2022 0995 EDT Pt is calling to request testosterone cypionate 200 mg/mL be refilled and sent to [facility] in [place]. Pt would prefer 2 10 ml vials instead of 1 20. Please write it as such if possible. Pt would also like the bupropion 150 mg SR refilled and [facility] to [facility]. documented in this encounter Plan of Treatment Upcoming Encounters Date Type Department Care Team (Late st Contact Info) Description 10/04/2024 9:50 EST Appointment [facility] Pre-Surgical Testing [address] [place] [address] 10/14/2024 11:00 EST Hospital Encounter [facility] OR [address] [place], [place] [phone] Clemente Gerardo MD [address] [place] [address] [phone] 10/14/2024 11:00 EST - 10/14/2024 14:35 EST Surgery [facility] OR [address] [place] [address] [phone] Clemente Gerardo MD [address] [place] [address] [phone] Implantation of inflatable penile prosthesis [16369 (CPT??)] 10/17/2024 9:00 EST Telemedicine [address] [phone] Nurse Call, [facility] Urology 10/31/2024 15:00 EST Post-op Visit [address] [phone] Clemente Gerardo MD [address] [place] [address] [phone] 12/06/2024 10:15 EST Office Visit [facility] Ophthalmology [address] [address] Spike Puentes MD [address] [place] [phone] Scheduled Procedures Name Priority Associated Diagnoses Date/Ti me INSERTION, PENILE PROSTHESIS, INFLATABLE, 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 10/14/2024 11:00 EST documented as of this encounter Visit Diagnoses Not on filedocumented in this encounter Discontinued Medications Medication Sig Discontinue Reason Start Date End Da te buPROPion (WELLBUTRIN SR) 150 mg SR tablet TAKE 1 TABLET BY MOUTH ONCE DAILY IN THE MORNING Reorder 04/02/2022 06/30/2022 testosterone cypionate (DEPO-TESTOSTERONE) 200 mg/mL injection Inject 1.25 mL into the muscle every 7 days for 28 days. Patient requests 2x 10ml vials Daily Max: 250 mg Reorder 09/02/2021 06/30/2022 documented as of this encounter Care Teams Donor Support Technician Relationship Specialty Start Date End Date Vel Santos MD PCP - General 10/30/11 03/09/23 documented as of this encounter
--- OUTSIDE RECORDS SUMMARY | 2024-07-19 22:12 | XMS_ITS | Encounter Summary ---
Author Organization [facility] Address [address] [place] [address] Care Team Providers Care Perioperative Tech Name Role Phone Vel Santos MD Primary Care Provider Dave doe Encounter Details Date Type Department Care Team (Latest Contact Info) Description 01/30/2023 1:10 EDT - 01/30/2023 23:59 EDT Hospital Encounter [facility] Pre-Surgical Testing [address] [place] [address] Discharge Disposition: Home or Self Care Social [...] Taken Comments Blood Pressure - - Pulse - - Temperature - - Respiratory Rate - - Oxygen Saturation - - Inhaled Oxygen Concentration - - Weight 110.7 kg (244 lb) 01/30/2023 1456 EDT Height 180.3 cm (5' 11) 01/30/2023 1456 EDT Body Mass Index 34.03 01/30/2023 1456 EDT documented in this encounter Functional Status [...] daily. 90 Tablet 3 10/16/2022 DIABETIC SUPPLIES, [employer]. MISC Syringe 3cc 02/17/2017 LANCETS & BLOOD GLUCOSE STRIPS MISC test strips and lancets for glucose monitor , Sig: test once a day test once a day 09/20/2018 nitroGLYCERIN (NITROSTAT) 0.[address] 1 Tablet under the tongue as needed. 07/07/2014 Evaur-5-EOU-EPA-Fish Oil 1,000 (120-180) mg capsule Take 1,000 [...] or Self Care documented in this encounter OR Notes * Preprocedure Instructions - Mahnaz Lal RN - 01/30/2023 0110 EDT Roland Marisela Vega has been instructed as follows regarding medication administration for the day of the scheduled procedure. Date of Surgery: 02/02/23 Instructions for Taking Medications Day of Surgery Medication Dose and frequency Last Dose Hold Day of Surgery Take Day of Surgery acetaminophen-codeine (TYLENOL #3) 300-30 mg per tablet Take 1 Tablet by mouth every 6 hours as needed for Pain. Daily Max: 4 Tablets yes amLODIPine (NORVASC) 10 mg tablet Take 1 Tablet by mouth daily for 90 days. yes aspirin 325 mg tablet Take 325 mg by mouth daily. yes azithromycin (ZITHROMAX) 250 mg tablet Take 2 tablets (500 mg) on day 1, followed by 1 tablet (250 mg) once daily on days 2 through 5. yes blood glucose meter Glucose monitor,Sig: test once a day once a day blood glucose test strips Brand: One Touch Ultra, test blood sugar once daily buPROPion (WELLBUTRIN SR) 150 mg SR tablet Take 1 Tablet by mouth daily. yes Cholecalciferol, Vitamin D3, (VITAMIN D3) 2,000 unit capsule Take by mouth daily. 01/26/23 clopidogreL (PLAVIX) 75 mg tablet Take 1 Tablet by mouth daily. 01/26/23 DIABETIC SUPPLIES, MISCELLAN. MISC Syringe 3cc econazole nitrate 1 % cream Apply 1 application topically 2 times daily as needed. x erythromycin (ROMYCIN) 5 mg/gram (0.5 %) ophthalmic ointment Apply 1/4 strip x lamoTRIgine (LAMICTAL) 25 mg tablet 1 po a day for one week, then one po bid, then 2 po bid as directed , finally up to 3 pills bid Patient taking differently: Take 25 mg by mouth 2 times daily. 1 po a day for one week, then one pobid, then 2 po bid as directed , finally up to 3 pills bid yes LANCETS & BLOOD GLUCOSE STRIPS MISC test strips and lancets for glucose monitor , Sig: test once a day test once a day MEDICAL MARIJUANA x nitroGLYCERIN (NITROSTAT) 0.[address] 1 Tab under the tongue as needed. yes nystatin (MYCOSTATIN) ointment Apply 1 application topically 3 times daily as needed. x Trupm-5-BEX-EPA-Fish Oil 1,000 (120-180) mg capsule Take 1,000 mg by mouth. 01/26/23 pantoprazole (PROTONIX) 40 mg tablet Take 1 Tablet by mouth daily for 360 days. yes polyethylene glycol (MIRALAX) 17 gram/dose powder Instructions mailed once procedure scheduled. x testosterone cypionate (DEPO-TESTOSTERONE) 200 mg/mL injection Inject 1.25 mL into the muscle every7 days for 112 days. Patient requests 2x 10ml vials Daily Max: 250 mg N/A ubidecarenone/vitamin E mixed (COQ10 SG 100 ORAL) Take by mouth daily. Patient not taking: Reported on 01/30/2023 Not Taking zoster vaccine recombinant, PF, (SHINGRIX, PF,) IM Injection - vial GIVE ONE NOW, AND REPEAT IN 2-6MONTHS. Patient not taking: Reported on 12/23/2021 zoster vaccine recombinant, PF, (SHINGRIX, PF,) IM Injection - vial GIVE ONE NOW, AND REPEAT IN 2-6MONTHS. Patient not taking: Reported on 12/23/2021 MAHNAZ LAL RN 01/30/23 15:46 Stop all vitamins and supplements 7 days prior to surgery. Nonsteroidal anti-inflammatories (NSAIDS; i.e. ibuprofen, naproxen, indomethacin, ketorolac, Motrin) may continue prior to surgery. Acetaminophen (Tylenol) can be taken prior to surgery if needed. Preparing for surgery: o Fasting- Follow the eating and drinking instructions below unless otherwise instructed by your surgeon - STOP all solid FOOD and LIQUIDS Containing Fats, including Milk, at midnight the night before surgery - You May have FAT FREE CLEAR liquids until 2 hours before your scheduled time to arrive to the hospital on the day of surgery. Acceptable clear liquids include Water, apple juice, and sports drinks (Gatorade?? or Powerade?? avoid red and purple). - On the day of your procedure, no gum, mints, lozenges or hard candy. - Children under 1 year of age may have breast milk up to 4 hours and formula up to 6 hours before their procedure. - Pedialyte?? is also an acceptable clear liquid for children. o Safety - Infection prevention Shower with an ANTIBACTERIAL SOAP the night before surgery and the morning of surgery. If you were given scrub sponges, use those also, scrubbing well over the area indicated by your surgeon. Do not shave your surgical site for 3 days prior to surgery. Protect Surgical Site from injury such as cuts, bruising or rosado After your morning shower avoid any personal care products such as creams, lotion, powders, deodorant, makeup, hairspray, perfumes or colognes. - Ride home We require you have a responsible Adult to drive you home after surgery or to accompany you in getting home via Taxi or Bus Your Family Member/Ride Home should stay at the hospital during the procedure until you are discharged. If your ride can't stay in the hospital, they still need to come in to pick you up to assist with medication orange picker machine operator from pharmacy, review of discharge instructions and surgical consult. We ask that your ride stay within 15 minutes of the hospital for orange picker machine operator. - CPAP/BiPAP Bring your CPAP or BiPAP machine in with you on the day of your surgery. - Nail puerto rican and Jewelry Remove all finger nail puerto rican and makeup before surgery Remove all jewelry including rings and Body Piercings before coming in for Surgery. - Glasses and Contacts Wear glasses on the Day of surgery. For eye surgeries avoid contacts for 7 days prior to surgery, unless otherwise instructed by your surgeon. - Full beards Shaving is optional, certain aspects of the anesthetic management can be made easier without a fullbeard. - Smoking Stop smoking tobacco and marijuana prior to surgery as much as possible with a minimum of 24 hours prior to surgery. o Medications - Inhalers Bring your inhalers in with you on the day of your surgery. - Bowel cleansing Follow the instructions for bowel cleansing given to you by your surgeon. Once you start, drink lots of clear liquids, stopping them at the time your surgeon told you to stop. It would be best to stay at home while doing the bowel cleansing. o Legal Guardianship - BRING Proof of Guardianship on Day of Surgery. - Legal Guardian is to be available on the Day of Surgery by Telephone if not physically present onthe Day of Surgery. - Surgical and/or other consents will be signed by Legal Guardian prior to the Day of Surgery if possible. o Call your surgeon IF: - You become ill before your surgery. - You have any new skin problems near the area where your surgery will be, such as a rash, blister,or infection. - You have any questions. - Your surgeon may have given you other instructions to prepare for surgery. Please follow these and if you have questions call your surgeon's office. Day of surgery o Identification - Please bring a photo ID, insurance card and any other information needed for your surgery. o Arrival - General Arrival Time is 2 hours prior to your surgery time. o Medications - Take as directed above with a small sip of water on day of surgery. - Bring a list of medications you take on the day of surgery. - Leave medications at home. o Clothing - Wear casual, loose fitting and comfortable clothing. We recommend you wear/bring inexpensive (avoid silks, etc.) clothing on Day of Surgery. For arm and hand surgery wear a zip up or button up shirt with short sleeves. For eye surgery, do not wear a shirt that pulls over the head unless it has a wide neck opening. Bring a hat with a visor or a pair of sunglasses to wear home after surgery. o Medical Devices - Bring any medical devices that you would normally use during the course of your day. These items include, but are not limited to: insulin pumps, mobility aids, CPAP. o Valuables - Bring only money you may need for you hospital co-pay and to purchase any prescriptions on the way home. Let the person driving you home hold you're your money while you are in surgery. - Leave jewelry at home - Leave contact lenses at home. Wear your eye glasses and bring your eye glass case. - Leave valuable items at home. Ask a family member to bring them in after you have been admitted to the inpatient unit if possible. o Equipment - Remember to bring pillows for the car ride home to elevate your arm or leg (for arm/leg surgery).Bring Crutches if needed. - Use the Volumetric Combat Control given to you by your surgeon or nurse. Starting 2 weeks prior to your surgery use it 2 times a day, 10 times each use. Bring it with you on the day of your surgery. o Visitation - Per our Welcoming Policy ???Unit nursing staff may have to ask patients and families to limit numbers of family members at the bedside when it impacts the environment of care?? - Typically two visitors are allowed in the Preop and Recovery areas. o Bring plastic bags and paper towels in the car for the Trip Home. o Contact information - Patient/Family given Preop Contact Numbers appropriate to campus of surgery. For Day of Surgery: [facility] [place]: [phone]; [facility]; [phone]. Prior to Day of Surgery call: [phone]. Pre-op toll Free Number . - More information can also be found on our website: [email or web address] documented in this encounter Plan of Treatment Upcoming Encounters Date Type Department Care Team (Late st Contact Info) Description 10/04/2024 9:50 EST Appointment [facility] Pre-Surgical Testing [address] [place] [address] [phone] 10/14/2024 11:00 EST Hospital Encounter [facility] OR [address] [place] [address] [phone] Clemente Gerardo MD [address] [place] [address] [phone] 10/14/2024 11:00 EST - 10/14/2024 14:35 EST Surgery [facility] [place] [address] [place] [address] [phone] Clemente Gerardo MD [address] [place] [address] [phone] Implantation of inflatable penile prosthesis [74059 (CPT??)] 10/17/2024 9:00 EST Telemedicine [facility] Urology [address] [address] Nurse Call, [facility] Urology 10/31/2024 15:00 EST Post-op Visit [address] [phone] Clemente Gerardo MD [address] [place] [address] [phone] 12/06/2024 10:15 EST Office Visit [facility] Ophthalmology [facility] [address] [place] [address] Spike Puentes MD [address] [place] [phone] Scheduled Procedures Name Priority Associated Diagnoses Date/Ti me INSERTION, PENILE PROSTHESIS, INFLATABLE, 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 10/14/2024 11:00 EST documented as of this encounter Visit Diagnoses Not on filedocumented in this encounter Care Teams Perioperative Tech Relationship Specialty Start Date End Date Vel Santos MD PCP - General 10/30/11 03/09/23 documented as of this encounter
--- OUTSIDE RECORDS SUMMARY | 2024-07-19 22:12 | XMS_ITS | Encounter Summary ---
Author Organization [facility] Address [address] [place] [address] Care Team Providers Care Scientific Laboratory Supervisor Name Role Phone Vel Santos MD Primary Care Provider Unava ilable Reason for Visit * Reason Onset Date Comments Eye Problem 12/09/2021 Encounter Details Date Type Department Care Team (Late st Contact Info) Description 12/09/2021 Telephone [facility] Ophthalmology [facility] [address] [place] [address] Spike Puentes MD [address] [place] [phone] Eye Problem Social History Tobacco Use Types Packs/Day Years [...] encounter Miscellaneous Notes * Telephone Encounter - Lilian Isaac COA - 12/09/2021 1611 EST Roland noticed blister like spot on the white part of left eye with slight soreness, no change in vision. After consulting with Dr. 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 * Telephone Encounter - Gerda Jolly COA - 12/09/2021 1115 EST LM fpr patient to call back * Telephone Encounter - Iza Garces - 12/09/2021 1037 EST Roland called, states that he has a raised, swollen part on the white of his left eye. Eye redness and discomfort. SLT laser on 12/02/21. documented in this encounter Plan of Treatment Upcoming Encounters Date Type Department Care Team (Late st Contact Info) Description 10/04/2024 9:50 EST Appointment [facility] Pre-Surgical Testing [address] [place] [address] [phone] 10/14/2024 11:00 EST Hospital Encounter [facility] OR [address] [place] [address] [phone] Clemente Gerardo MD [address] [place] [address] [phone] 10/14/2024 11:00 EST - 10/14/2024 14:35 EST Surgery [facility] OR [address] [place] [address] [phone] Clemente Gerardo MD [address] [place] [address] [phone] Implantation of inflatable penile prosthesis [93349 (CPT??)] 10/17/2024 9:00 EST Telemedicine [facility] Urology [address] [phone] Nurse Call, [facility] Urology 10/31/2024 15:00 EST Post-op Visit [facility] [address] [phone] Clemente Gerardo MD [address] [place] [address], Level [address] [place] [phone] 12/06/2024 10:15 EST Office Visit [facility] [address] [place] [address] Spike Puentes MD [address] [place] [phone] Scheduled Procedures Name Priority Associated Diagnoses Date/Ti me INSERTION, PENILE PROSTHESIS, INFLATABLE, 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 10/14/2024 11:00 EST documented as of this encounter Visit Diagnoses Not on filedocumented in this encounter Care Teams Scientific Laboratory Supervisor Relationship Specialty Start Date End Date Vel Santos MD PCP - General 10/30/11 03/09/23 documented as of this encounter
--- OUTSIDE RECORDS SUMMARY | 2024-07-19 22:12 | XMS_ITS | Encounter Summary ---
Author Organization [facility] Address [address] [place] [address] Care Team Providers Care Diver Tender Name Role Phone Vel Santos MD Primary Care Provider Unava ilable Reason for Visit * Reason Comments Cough Trauma Encounter Details Date Type Department Care Team (Late st Contact Info) Description 12/26/2021 11:45 EST Telemedicine [facility] Family Medicine [facility] [address], [address] [place], [place] [phone] Vel Santos MD Bronchitis (Primary Dx); Closed fracture of one rib of left side with routine healing, subsequent encounter Social History Tobacco Use Types Packs/Day [...] Dispensed Refills Start Date End Da te azithromycin (ZITHROMAX) 250 mg tablet Take 2 tablets (500 mg) on day 1, followed by 1 tablet (250 mg) once daily on days 2 through 5. 6 Tablet 12/26/2021 02/12/2023 guaiFENesin-codeine (GUAIFENESIN AC) 100-10 mg/5 mL liquid Take 5 mL by mouth every 4 hours as needed for up to 7 days for Cough. Daily Max: 30 mL 120 mL 12/26/2021 01/02/2022 documented in this encounter Progress Notes * Vel Santos MD - 12/26/2021 1145 EST [facility] Video Visit Today's visit was provided through telemedicine video conferencing: The location of the patient: Home The location of the provider: Office Verbal consent: The concept of ???Telemedicine?? has been described to the patient.Patient has been informed of the anticipated benefits and possible risks. Patient understands the information provided regarding telemedicine, has had the opportunity to ask questions about this information, and all questions have been answered to patient???s satisfaction. Patient consents for the use of telemedicine in his/her medical care and authorizes the transmission of any relevant medical information to providers and their staff involved in patient???s medical or mental health care. Verbal consent obtained by myself or auxiliary staff: yes. Subjective: Chief Complaint(s): Cough and Trauma HPI: Last weekend this patient slipped on ice and landed hard. He fractured a rib. He went to express care. They gave him Tylenol with codeine but it just does not seem to be cutting it in terms of suppressing his cough. He is done better with the liquid version of this had a cough medicine form and asks for it today. The cough has been there about 3 weeks. This patient has constant postnasal drip year-round but this is different. It is not productive. He denies fever chills or shortness of breath with it. It is uncomfortable sleeping at night because of the rib fracture but he is able to lie flat. I have reviewed patient's tobacco history: reports that he has quit smoking. He has never used smokeless tobacco. I have reviewed current problem list and current medications. ROS: ROS See above Objective: Examination: Home Vitals: There were no vitals taken for this visit. Pertinent exam findings: appears well, non-labored breathing, no wheeze and mood and affect appropriate Data reviewed with patient: Reviewed and/or ordered active problem list, medication list tests Assessment & Plan: Roland was seen today for cough and trauma. Diagnoses and all orders for this visit: Bronchitis Comments: Antibiotics prescribed. To call if not improving cough medicine prescribed as directed. Patient warned not to drive with narcotics in his system Closed fracture of one rib of left side with routine healing, subsequent encounter Comments: Discussed. Continue to brace when coughing Other orders - guaiFENesin-codeine (GUAIFENESIN AC) 100-10 mg/5 mL liquid; Take 5 mL by mouth every 4 hours as needed for up to 7 days for Cough. Daily Max: 30 mL - azithromycin (ZITHROMAX) 250 mg tablet; Take 2 tablets (500 mg) on day 1, followed by 1 tablet (250 mg) once daily on days 2 through 5. A total of 21 minutes was spent on this encounter on the day of this encounter. The following individuals and their role did participate in today's encounter visit: Provider: Vel Santos MD Patient documented in this encounter Plan of Treatment Upcoming Encounters Date Type Department Care Team (Late st Contact Info) Description 10/04/2024 9:[address] [facility] Pre-Surgical Testing [address] [place] [address] [phone] 10/14/2024 11:00 EST Hospital Encounter [facility] OR [address] [place] [address] [phone] Clemente Gerardo MD [address] [place] [address] [phone] 10/14/2024 11:00 EST - 10/14/2024 14:35 EST Surgery [facility] OR [address] [place] [address] [phone] Clemente Gerardo MD [address] [place] [address] [phone] Implantation of inflatable penile prosthesis [64722 (CPT??)] 10/17/2024 9:00 EST Telemedicine [facility] [address] [phone] Nurse Call, [facility] 10/31/2024 15:00 EST Post-op Visit [facility] [phone] Clemente Gerardo MD [address] [facility], [address] [place] [phone] 12/06/2024 10:15 EST Office Visit [address] [phone] Spike Puentes MD [address] [place] [phone] Scheduled Procedures Name Priority Associated Diagnoses Date/Ti me INSERTION, PENILE PROSTHESIS, INFLATABLE, 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 10/14/2024 11:00 EST documented as of this encounter Visit Diagnoses Diagnosis Bronchitis- Primary Bronchitis, not specified as acute or chronic Closed fracture of one rib of left side with routine healing, subsequent encounter Erectile dysfunction after radical prostatectomy documented in this encounter Discontinued Medications Medication Sig Discontinue Reason Start Date End Da te escitalopram oxalate (LEXAPRO) 10 mg tablet 07/23/2020 2 budesonide-formoterol HFA (SYMBICORT) 80-4.5 mcg/actuation HFA aerosol inhaler inhaler Inhale 2 Puffs as directed 2 times daily. 12/26/2021 atorvastatin (LIPITOR) 20 mg tablet 05/17/2020 12/26/2021 lamoTRIgine (LAMICTAL) 25 mg tablet Take 3 Tablets by mouth 2 times daily. 09/05/2021 12/26/2021 documented as of this encounter Care Teams Diver Tender Relationship Specialty Start Date End Date Vel Santos MD PCP - General 10/30/11 03/09/23 documented as of this encounter
--- OUTSIDE RECORDS SUMMARY | 2024-07-19 22:12 | XMS_ITS | Encounter Summary ---
Author Organization [facility] Address [address] [place] [address] Care Team Providers Care Prosthetic Aides Teacher Name Role Phone Vel Santos MD Primary Care Provider Unava ilable Reason for Visit * Reason Comments Other Palpitations Encounter Details Date Type Department Care Team (Latest Contact Info) Description 01/01/2023 16:30 EST Office Visit [facility] Family Medicine [facility] [address] [place] [address] Vel Santos MD Renal insufficiency (Primary Dx); Anxiety Social History Tobacco Use Types Packs/Day Years [...] Sign Reading Time Taken Comments Blood Pressure 138/72 01/01/2023 1631 EST Pulse 76 01/01/2023 1631 EST Temperature - - Respiratory Rate - - Oxygen Saturation - - Inhaled Oxygen Concentration - - Weight 110 kg (242 lb 8 oz) 01/01/2023 1631 EST Height 180.3 cm (5' 11) 01/01/2023 1631 EST Body Mass Index 33.82 01/01/2023 1631 EST documented in this encounter Functional Status Functional Status Response Date of Assess ment Because of a physical, menta l, or emotional condition, does this person have difficulty doing errands alone such as visiting a doctor's office or shopping? No 03/02/2018 documented as of this encounter Ordered Prescriptions Prescription Sig Dispensed Refills Start Date End Da te lamoTRIgine (LAMICTAL) 25 mg tablet 1 po a day for one week, then one po bid, then 2 po bid as directed , finally up to 3 pills bid 180 Tablet 5 01/01/2023 02/22/2023 documented in this encounter Progress Notes * Vel Santos MD - 01/01/2023 1630 EST Primary Care Office Visit Assessment & Plan Diagnoses and all orders for this visit: Renal insufficiency Comments: Set up with patient regimen of regular fluid intake, with lab slip to have meds redrawn Anxiety Comments: Long teasing apart of the events leading up to his hospitalization. Discussed reassuring data from [facility]. To restart Lamictal slowly Other orders - lamoTRIgine (LAMICTAL) 25 mg tablet No follow-ups on file. Patient education was direct. Barriers were assessed and addressed as needed. I spent a total of 40 minutes on40 the date of this encounter meeting with the patient and reviewing documentation/coordinating care as described in the above note. Unless otherwise noted, no procedures were performed at the time of the visit. Rena Watkins is a 72 y.o. male presenting with Other (Palpitations) HPI From phone call: Called and spoke with pt and his . He reports a couple weeks of fatigue and intermittent heart palpitations. He states that he does check his BP at home and it has been as high as 180/54. He states that it is mostly around 130s/70s. He denies any chest pain or pressure, SOB, dizziness/lightheadednes This patient had called yesterday but with persisting symptoms went to [facility] and was admitted overnight. He has his discharge summary with him today as well as laboratory tests. Telemetry did not reveal any significant cardiac issues. EKG and troponins were negative. He is reassured. He has questions about his labs. When he went in he was diagnosed as having an acute kidney injury due to his declining GFR. He asked for IV fluids and after 3+ bags of these his labs were redrawn and his GFR went above 60 again. He looks back over the events leading up to his hospitalization and realizes that much of his his anxiety. He has been off of Lamictal which she has been successfully on now for 9+ months. He describes a tenseness and vibration in his chest which he thinks is an anxiety equivalent. 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 This was a more stressful episode that he had anticipated. He has been trying to lose weight with over 30 pounds now lost. He does this through a keto diet with some small amount of cheating. He says that he has a very slight dizzy feeling when he is up and about which is relieved somewhat by putting his head down between his knees. He admits that he does not drink enough water thus the surprise finding of an acute kidney injury when he went to the emergency room. This distresses him. 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 Physical Exam Well seeming male, makes good eye contact. is here with him today and is supportive. See discharge instructions from [facility] as well as his initial H&P. EKG looks normal. Lab work reviewed and discussed documented in this encounter Plan of Treatment Upcoming Encounters Date Type Department Care Team (Late st Contact Info) Description 10/04/2024 9:50 EST Appointment [facility] Pre-Surgical Testing [address] [place] [address] 10/14/2024 11:00 EST Hospital Encounter [facility] OR [address] [place] [address] [phone] Clemente Gerardo MD [address] [place] [address] [phone] 10/14/2024 11:00 EST - 10/14/2024 14:35 EST Surgery [facility] OR [address] [place] [address] [phone] Clemente Gerardo MD [address] [place] [address] [phone] Implantation of inflatable penile prosthesis [88803 (CPT??)] 10/17/2024 9:00 EST Telemedicine [facility] [address] [phone] Nurse Call, [facility] 10/31/2024 15:00 EST Post-op Visit [address] [phone] Clemente Gerardo MD [address] [place] [address] [phone] 12/06/2024 10:15 EST Office Visit [facility] [address] [address] Spike Puentes MD [address] [place] [address] [phone] Scheduled Procedures Name Priority Associated Diagnoses Date/Ti me INSERTION, PENILE PROSTHESIS, INFLATABLE, 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 10/14/2024 11:00 EST documented as of this encounter Visit Diagnoses Diagnosis Renal insufficiency- Primary Unspecified disorder of kidney and ureter Anxiety Anxiety state, unspecified Erectile dysfunction after radical prostatectomy documented in this encounter Discontinued Medications Medication Sig Discontinue Reason Start Date End Da te pneumococcal vaccine, PPV23, (PNEUMOVAX) 25 mcg/0.5 mL syringe Inject 0.5 mL into the muscle once for 1 dose. 11/13/2020 01/01/2023 documented as of this encounter Care Teams Prosthetic Aides Teacher Relationship Specialty Start Date End Date Vel Santos MD PCP - General 10/30/11 03/09/23 documented as of this encounter
--- OUTSIDE RECORDS SUMMARY | 2024-07-19 22:12 | XMS_ITS | Encounter Summary ---
Author Organization [facility] Address [address] [place] [address] Care Team Providers Care Bolt Labeler Name Role Phone Vel Santos MD Primary Care Provider Unava ilable Reason for Visit * Reason Comments Rib Injury Encounter Details Date Type Department Care Team (Latest Contact Info) Description 02/24/2022 14:30 EDT Office Visit [facility] [address] [place] [address] Vel Santos MD ASCVD (arteriosclerotic cardiovascular disease) (Primary Dx); Left-sided chest wall pain; Morbid obesity due to excess calories (HCC) (HCC-CMS) Social History Tobacco Use Types Packs/Day Years [...] Sign Reading Time Taken Comments Blood Pressure 139/68 02/24/2022 1435 EDT Pulse 73 02/24/2022 1435 EDT Temperature - - Respiratory Rate - - Oxygen Saturation 97% 02/24/2022 1435 EDT Inhaled Oxygen Concentration - - Weight 110.5 kg (243 lb 9.6 oz) 02/24/2022 1435 EDT Height - - Body Mass Index - - documented in this encounter Functional Status Functional Status Response Date of Assess ment Because of a physical, menta l, or emotional condition, does this person have difficulty doing errands alone such as visiting a doctor's office or shopping? No 03/02/2018 documented as of this encounter Progress Notes * Vel Santos MD - 02/24/2022 1430 EDT Primary Care Office Visit Assessment & Plan Diagnoses and all orders for this visit: ASCVD (arteriosclerotic cardiovascular disease) Comments: discussed taking step down from lipitor/crestor to less potent statin Orders: - LIPID PROFILE (INCLUDES CHOLESTEROL, TRIGLYCERIDES, HDL, LDL) Left-sided chest wall pain Comments: heat, time, care with activity as it heals. discussed nature of process. to call if any changes Morbid obesity due to excess calories (HCC) Comments: doing very well with planned wt loss. praised after reviewing his plan No follow-ups on file. Patient education was direct. Barriers were assessed and addressed as needed. I spent a total of 30 minutes on the date of this encounter meeting with the patient and reviewing documentation/coordinating care as described in the above note. Unless otherwise noted, no procedures were performed at the time of the visit. Rena Watkins is a 71 y.o. male presenting with Rib Injury HPI See last visit: fell on ice, still with pain but oddly has moved closer to midline, except occ.Side pain - no breathing issues, no exertional complaints. Did stop his statin medication due to leg cramps. Not interested in trying less potent statin. Data reviewed this visit: problem list/past medical history, current medications and allergies ROS - See HPI 12/23/2021 Narrative & Impression INDICATION: pain s/p fall on ice, eval for rib fracture ?? TECHNIQUE: 3 views with PA chest ?? COMPARISON: Chest x-ray 08/16/2019. ?? FINDINGS: Chronic left 8th and 9th rib fractures are seen, unchanged. There appears to be a lateralleft 6th rib fracture. Mild linear markings are seen at the left base, unchanged. The cardiomediastinal silhouette is unremarkable and unchanged. ?? IMPRESSION 1. Suspected subtle nondisplaced lateral left 6th rib acute fracture. 2. Healed left 8th and 9th chronic rib fractures. 3. No pneumothorax detected. Specimen Collected: 12/23/21 15:02 Last Resulted: 12/23/21 15:02 Objective BP 139/68 Pulse 73 Wt (!) 110.5 kg (243 lb 9.6 oz) SpO2 97% Physical Exam Well seeming, has intentionally lost over forty pounds of wt. Chest wall- sl pain at the costochondral junction anterior chest wall, no crepitus Lungs clear documented in this encounter Plan of Treatment Upcoming Encounters Date Type Department Care Team (Late st Contact Info) Description 10/04/2024 9:50 EST Appointment [facility] Pre-Surgical Testing [address] [place] [address] [phone] 10/14/2024 11:00 EST Hospital Encounter [facility] OR [address] [place] [address] [phone] Clemente Gerardo MD [address] [place] [address] [phone] 10/14/2024 11:00 EST - 10/14/2024 14:35 EST Surgery [facility] OR [address] [place] [address] [phone] Clemente Gerardo MD [address] [place] [address] [address] [place] [phone] Implantation of inflatable penile prosthesis [68760 (CPT??)] 10/17/2024 9:00 EST Telemedicine [address] [phone] Nurse Call, [facility]rology 10/31/2024 15:00 EST Post-op Visit [address] [phone] Clemente Gerardo MD [address] [facility], [address] [place] [phone] 12/06/2024 10:[address] [facility] [address] [place] [address] Spike Puentes MD [address] [place] [phone] Scheduled Procedures Name Priority Associated Diagnoses Date/Ti me INSERTION, PENILE PROSTHESIS, INFLATABLE, 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 10/14/2024 11:00 EST documented as of this encounter Results * (ABNORMAL) LIPID PROFILE (INCLUDES CHOLESTEROL, TRIGLYCERIDES, HDL, LDL) (05/01/2022 14:07 EDT) Cholesterol 215(H) <200 mg/dL 05/01/2022 15:46 [facility] Comment:Note that therapeuti c goals will differ between patients based on cardiac risk factors and current medical therapy. HDL 40 >=40 mg/dL 05/01/2022 15:46 [facility] Comment:Note that therapeuti c goals will differ between patients based on cardiac risk factors and current medical therapy. LDL, Calculated 139 <160 mg/dL 15:46 [facility] Comment:Note that therapeuti c goals will differ between patients based on cardiac risk factors and current medical therapy. Triglyceride 182(H) <=150 mg/dL 05/01/2022 15:46 [facility] Comment:Note that therapeuti c goals will differ between patients based on cardiac risk factors and current medical therapy. Chol/HDL Ratio 5.4 See Note 05/01/2022 15:46 [facility] Comment: NOTE: Desirable Ratio = <4.1 Patient At Risk Ratio = >5.0(Males) ?>6.0(Females) Non HDL Cholesterol 175(H) <160 mg/dL 05/01/2022 15:46 EDT [facility] Comment:Note that therapeuti c goals will differ between patients based on cardiac risk factors and current medical therapy. Blood VENOUS BLOOD / Unknown Venipuncture / Unknown 05/01/2022 14:07 EDT 05/01/2022 15:08 EDT Vel Santos MD CHEMISTRY & BLOOD GA S ORDERABLES [facility] [address] [place] [address] documented in this encounter Visit Diagnoses Diagnosis ASCVD (arteriosclerotic cardiovascular disease)- Primary Unspecified cardiovascular disease Left-sided chest wall pain Painful respiration Morbid obesity due to excess calories (HCC-CMS) Erectile dysfunction after radical prostatectomy documented in this encounter Care Teams Bolt Labeler Relationship Specialty Start Date End Date Vel Santos MD PCP - General 10/30/11 03/09/23 documented as of this encounter
--- OUTSIDE RECORDS SUMMARY | 2024-07-19 22:12 | XMS_ITS | Encounter Summary ---
Author Organization [facility] Address [address] [place] [address] Care Team Providers Care Lock Maintenance Supervisor Name Role Phone Vel Santos MD Primary Care Provider Unava ilable Encounter Details Date Type Department Care Team (Late st Contact Info) Description 05/01/2022 13:55 EDT Phlebotomy Only [facility] - Outpatient Phlebotomy Drawing [address] [place] [address] [place], [facility] [place] ASCVD (arteriosclerotic cardiovascular disease) Social History Tobacco Use Types Packs/Day Years [...] 9:50 EST Appointment [facility] [place] Pre-Surgical Testing [address] [facility] [place] [address] 10/14/2024 11:00 EST Hospital Encounter [facility] OR [address] [place] [address] [phone] Clemente Gerardo MD [address] [place] [address] [phone] 10/14/2024 11:00 EST - 10/14/2024 14:35 EST Surgery [facility] OR [address] [place] [address] [phone] Clemente Gerardo MD [address] [place] [address] [phone] Implantation of inflatable penile prosthesis [71733 (CPT??)] 10/17/2024 9:00 EST Telemedicine [address] [phone] Nurse Call, [facility] Urology 10/31/2024 15:00 EST Post-op Visit [address] [phone] Clemente Gerardo MD [address] [place] [address] [phone] 12/06/2024 10:15 EST Office Visit [facility] Ophthalmology [address] [phone] Spike Puentes MD [address] [place] [phone] Scheduled Procedures Name Priority Associated Diagnoses Date/Ti me INSERTION, PENILE PROSTHESIS, INFLATABLE, 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 10/14/2024 11:00 EST documented as of this encounter Procedures Procedure Name Priority Date/Time Associated Diagnosis Comments LIPID PROFILE (INCLUDES CHOLESTEROL, TRIGLYCERIDES, HDL, LDL) Routine 05/01/2022 14:07 EDT ASCVD (arteriosclerotic cardiovascular disease) documented in this encounter Results * (ABNORMAL) LIPID PROFILE (INCLUDES CHOLESTEROL, TRIGLYCERIDES, HDL, LDL) (05/01/2022 14:07 EDT) Cholesterol 215(H) <200 mg/dL 05/01/2022 15:46 EDT [facility] Comment:Note that therapeuti c goals will differ between patients based on cardiac risk factors and current medical therapy. HDL 40 >=40 mg/dL 05/01/2022 15:46 T [facility] Comment:Note that therapeuti c goals will differ between patients based on cardiac risk factors and current medical therapy. LDL, Calculated 139 <160 mg/dL 15:46 [facility] Comment:Note that therapeuti c goals will differ between patients based on cardiac risk factors and current medical therapy. Triglyceride 182(H) <=150 mg/dL 05/01/2022 15:46 T [facility] Comment:Note that therapeuti c goals will differ between patients based on cardiac risk factors and current medical therapy. Chol/HDL Ratio 5.4 See Note 05/01/2022 15:46 [facility] Comment: NOTE: Desirable Ratio = <4.1 Patient At Risk Ratio = >5.0(Males) ?>6.0(Females) Non HDL Cholesterol 175(H) <160 mg/dL 05/01/2022 15:46 T [facility] Comment:Note that therapeuti c goals will differ between patients based on cardiac risk factors and current medical therapy. Blood VENOUS BLOOD / Unknown Venipuncture / Unknown 05/01/2022 14:07 EDT 05/01/2022 15:08 EDT Vel Santos MD CHEMISTRY & BLOOD GA S ORDERABLES [facility] [address] [place] [address] documented in this encounter Visit Diagnoses Diagnosis ASCVD (arteriosclerotic cardiovascular disease) Unspecified cardiovascular disease Erectile dysfunction after radical prostatectomy documented in this encounter Care Teams Lock Maintenance Supervisor Relationship Specialty Start Date End Date Vel Santos MD PCP - General 10/30/11 03/09/23 documented as of this encounter
--- OUTSIDE RECORDS SUMMARY | 2024-07-19 22:12 | XMS_ITS | Encounter Summary ---
Author Organization [facility] Address [address] [place] [address] Care Team Providers Care Transmission Calibration Engineer Name Role Phone Vel Santos MD Primary Care Provider Unava ilable Reason for Visit * Reason Onset Date Comments Medications Refill 10/16/2022 Encounter Details Date Type Department Care Team (Late st Contact Info) Description 10/16/2022 Refill [facility] Medicine [facility] [address] , [address] [place], [place] [phone] Vel Santos MD Medications Refill Social History [...] Dispensed Refills Start Date End Da te clopidogreL (PLAVIX) 75 mg tabletIndications:Dyslipi demia Take 1 Tablet by mouth daily. 90 Tablet 3 10/16/2022 pantoprazole (PROTONIX) 40 mg tablet Take 1 Tablet by mouth daily for 360 days. 90 Tablet 3 10/16/2022 09/11/2023 buPROPion (WELLBUTRIN SR) 150 mg SR tablet Take 1 Tablet by mouth daily. 90 Tablet 3 10/16/2022 09/11/2023 amLODIPine (NORVASC) 10 mg tablet Take 1 Tablet by mouth daily for 90 days. 90 Tablet 3 10/16/2022 03/12/2023 documented in this encounter Miscellaneous Notes * Telephone Encounter - Jada Pitts MA - 10/16/2022 0513 EST [facility] MEDICATION REFILL Medication: Amlodipine 10 mg Medication, dose, directions verified: Take 1 tab po daily for 90 days. Pharmacy verified: [facility] Last office visit: 02/24/22 Next office visit: No nicole scheduled. [facility] MEDICATION REFILL Medication: Bupropion 150 mg SR Medication, dose, directions verified: Take 1 tab po daily. [facility] MEDICATION REFILL Medication: Clopidogrel 75 mg Medication, dose, directions verified: Take 1 tab po daily. [facility] MEDICATION REFILL Medication: Pantoprazole 40 mg Medication, dose, directions verified: Take 1 tab po daily for 360 days. documented in this encounter Plan of Treatment Upcoming Encounters Date Type Department Care Team (Late st Contact Info) Description 10/04/2024 9:50 EST Appointment [facility] Pre-Surgical Testing [address] [place] [address] [phone] 10/14/2024 11:00 EST Hospital Encounter [facility] OR [address] [place], [place] [phone] Clemente Gerardo MD [address] [place] [address], [address] [place] [phone] 10/14/2024 11:00 EST - 10/14/2024 14:35 EST Surgery [facility] OR [address] [place] [address] [phone] Clemente Gerardo MD [address] [place] [address] [phone] Implantation of inflatable penile prosthesis [44727 (CPT??)] 10/17/2024 9:00 EST Telemedicine [facility] Urology [address] [phone] Nurse Call, [facility] 10/31/2024 15:00 EST Post-op Visit [address] [phone] Clemente Gerardo MD [address] [place] [address] [phone] 12/06/2024 10:15 EST Office Visit [address] [address] Spike Puentes MD [address] [place] [phone] Scheduled Procedures Name Priority Associated Diagnoses Date/Ti me INSERTION, PENILE PROSTHESIS, INFLATABLE, 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 10/14/2024 11:00 EST documented as of this encounter Visit Diagnoses Diagnosis Dyslipidemia- Primary Other and unspecified hyperlipidemia Erectile dysfunction after radical prostatectomy documented in this encounter Discontinued Medications Medication Sig Discontinue Reason Start Date End Da te amLODIPine (NORVASC) 10 mg tablet Take 1 Tablet by mouth daily for 90 days. Reorder 10/08/2021 10/16/2022 buPROPion (WELLBUTRIN SR) 150 mg SR tablet Take 1 Tablet by mouth daily. Reorder 06/30/2022 10/16/2022 clopidogreL (PLAVIX) 75 mg tabletIndications:Dyslip idemia Take 1 Tablet by mouth daily. Reorder 10/08/2021 10/16/2022 pantoprazole (PROTONIX) 40 mg tablet Take 1 Tablet by mouth daily for 360 days. Reorder 10/08/2021 10/16/2022 documented as of this encounter Care Teams Transmission Calibration Engineer Relationship Specialty Start Date End Date Vel Santos MD PCP - General 10/30/11 03/09/23 documented as of this encounter
--- OUTSIDE RECORDS SUMMARY | 2024-07-19 22:12 | XMS_ITS | Encounter Summary ---
Author Organization [facility] Address [address] [place] [address] Care Team Providers Care Recovery Engineer Name Role Phone Vel Santos MD Primary Care Provider Unava ilable Encounter Details Date Type Department Care Team (Latest Contact Info) Description 01/14/2023 Travel Social History Tobacco Use Types Packs/Day [...] Appointment [facility] Pre-Surgical Testing [address] [place] [address] [phone] 10/14/2024 11:[address] [facility] OR [address] [place] [address] [phone] Clemente Gerardo MD [address] [place] [address] [phone] 10/14/2024 11:00 EST - 10/14/2024 14:[address] [facility] OR [address] [place] [address] [phone] Clemente Gerardo MD [address] [place] [address] [phone] Implantation of inflatable penile prosthesis [54124 (CPT??)] 10/17/2024 9:00 EST Telemedicine [facility] Urology [address] [phone] Nurse Call, [facility] Urology 10/31/2024 15:00 EST Post-op Visit [facility] [address] [phone] Clemente Gerardo MD [address] [place] [address] [phone] 12/06/2024 10:15 EST Office Visit [facility] Ophthalmology [address] [phone] Spike Puentes MD [address] [place] [address] [phone] Scheduled Procedures Name Priority Associated Diagnoses Date/Ti me INSERTION, PENILE PROSTHESIS, INFLATABLE, 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 10/14/2024 11:00 EST documented as of this encounter Visit Diagnoses Not on filedocumented in this encounter Care Teams Recovery Engineer Relationship Specialty Start Date End Date Vel Santos MD PCP - General 10/30/11 03/09/23 documented as of this encounter
--- OUTSIDE RECORDS SUMMARY | 2024-07-19 22:12 | XMS_ITS | Encounter Summary ---
Author Organization [facility] Address [address] [place] [address] Care Team Providers Care Racquet Maker Name Role Phone Vel Santos MD Primary Care Provider Unava ilable Reason for Visit * Auth/Cert (Routine) Specialty Diagnoses / Procedures Referred By Yi cummings Referred To Contact Diagnoses Rectal bleeding Anemia Referral ID Status Reason Start Date Expiration Date Visits Re quested Visits Authorized [id number] 1 1 Encounter Details Date Type Department Care Team (Late st Contact Info) Description 02/11/2023 13:[address] [facility] Endoscopy - [address] [address] Reagan Mack MD PhD [address] [place] [address] [address] [place] [phone] Anesthesia Record Procedure Summary Procedure Name Responsible Anesthesiologist Anesthesia Start Time Anesthesia Stop Time COLONOSCOPY Reagan Mack MD PhD 02/11/23 1349 1454 Events Date Time Event Comment 02/11/2023 1349 An Start The patient was re-evaluated immediately before moderate or deep sedation use, before anesthesia induction, or before the anesthesia procedure. 1349 An Start Data 1352 Anesthesia Ready 1450 an stop data 1454 An Stop 1456 Handoff to RN I completed my handoff [...] Total lidocaine 2% (PF) injection glass vial 6 0 mg propOFol (DIPRIVAN) injection 571,426 mc g * Agents Name O2 N2O Air * Blood No blood administrations on file. Lines, Drains, and Airways Type Details Placement Removal Peripheral IV 02/10/23; 1405; 18; Left; Antecubital; Inserted by RN; 02/12/23; 1300; Discharged; No complications 02/10/23 1405 by Guanaco Che, GLORIA 02/12/23 1300 by Ignacio Green, GLORIA documented in this encounter Social History Tobacco [...] OR Notes * Anesthesia Postprocedure Evaluation - Reagan Mack MD PhD - 02/11/2023 1456 EDT Patient: Roland Vega Vital signs were reviewed with the recovery nurse. [facility] Vitals Value Taken Time BP 100/50 02/11/23 1456 Temp 36 02/11/23 1456 Resp 15 02/11/23 1456 Pulse From Oximetry 54 02/11/23 1456 SpO2 98 02/11/23 1456 Heart Rate 54 02/11/23 1456 Last Pain Score - Numeric Pain Level (Scale 1-10): 0 Type of Anesthesia - MAC Anesthesia Post Evaluation Post-procedure vitals reviewed and are stable. Level of consciousness: awake Temperature status: normothermia Respiratory status: airway patent and room air Cardiovascular status: acceptable Hydration status: adequate Nausea/Vomiting: none Pain management: adequate Post-Op Assessment: patient tolerated procedure well with no complications Patient participation: unable to participate due to sedation Disposition: inpatient Anesthesia Complications: No apparent anesthesia complications * Anesthesia Preprocedure Evaluation - Reagan Mack MD PhD - 02/11/2023 1346 EDT Anesthesia Preprocedure Evaluation Colonoscopy 1 wk ago, polypectomy at that time. Now, amarjit blood per rectum, repeatedly. Patient Medical History, including Anesthesia History reviewed. [...] Comments) Other reaction(s): DIZZINESS Review of Systems Past Medical History: Diagnosis Date ??? Abnormal stress test 04/20/2017 s/p JANET ??? Activity, other involving cardiorespiratory exercise 01/30/23- able to climb 2 FOS w/o SOB ??? Amblyopia per pt-left eye ??? Anemia 02/10/2023 ??? Anomaly, cardiac cardiac stents ??? Arrhythmia 01/30/23- currently has zio patch for palpitations, CP, and SOB ??? Cancer ([facility]) ([facility]) prostates and skin cancer ??? Cerebral artery occlusion with cerebral infarction ([facility]) 201701/30/23-Acute ischemic left MCA stroke. no residual deficits ??? Chest pain 01/30/23- currently has zio patch for palpitations, CP, and SOB ??? Claustrophobia 01/30/23- in closed room ??? Colon polyp ??? Exercise involving housework ??? GERD (gastroesophageal reflux disease) 01/30/23- controlled w/ Protonix, sleeps on side for comfort ??? History of general anesthesia ??? Hyperlipidemia ??? Hypertension 01/30/23- well controlled per pt ??? CT (myocardial infarction) ([facility]) (HCC) ([facility]) 2007 x2. 2008 & 2011. JANET x4 ??? Poor dentition 01/30/23- reports having 2 broken teeth ??? Rash 01/30/23- eczema on face ??? Seizures ([facility]) 201801/30/23- well controlled on Lamictal, thought to be due to high dose Wellbutrin. None since 2018 ??? 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[facility]) (+) Cerebrovascular accident (CVA) due to embolism ([facility]) (+) Headache (+) History of syncope (+) TIA (transient ischemic attack) CARDIOVASCULAR (+) Arteriosclerotic cardiovascular disease (+) Coronary artery disease involving [place] coronary artery of [place] heart without angina pectoris (+) Essential hypertension (+) Hemorrhoids GASTROINTESTINAL (+) Gastroesophageal reflux disease Other (+) Rheumatoid arthritis ([facility]) Physical Exam Airway Mallampati: II TM distance: >3 FB Neck ROM: full Cardiovascular - normal exam Dental Comments: Multiple missing, nothing loose or removable. Pulmonary - normal exam Abdominal Anesthesia Plan ASA 3 Anesthesia Type - MAC Anesthesia plan and risks discussed. Informed consent obtained from patient. Specific risks discussed were bleeding, myocardial infarction, nerve damage and nausea. PAT Note Notes from 01/12/23 through 02/11/23 No notes of this type exist for this encounter. documented in this encounter Miscellaneous Notes * Addendum Note - Michoacano Vincent MD - 02/11/2023 1541 EDT Addendum created 02/11/23 1541 by Michoacano Vincent MD Clinical Note Signed, Order list changed, Pharmacy for encounter modified documented in this encounter Plan of Treatment Upcoming Encounters Date Type Department Care Team (Late st Contact Info) Description 10/04/2024 9:50 EST Appointment [facility] Pre-Surgical Testing [address] [place] [address] [phone] 10/14/2024 11:00 EST Hospital Encounter [facility] OR [address] [place] [address] [phone] Clemente Gerardo MD [address] [place] [address] [address] [place] [phone] 10/14/2024 11:00 EST - 10/14/2024 14:35 EST Surgery [facility] OR [address] [place] [address] [phone] Clemente Gerardo MD [address] [place] [address] [phone] Implantation of inflatable penile prosthesis [03836 (CPT??)] 10/17/2024 9:[address] [facility] Urology - [address] [phone] Nurse Call, [facility] 10/31/2024 15:00 EST Post-op Visit [facility] - [facility] [address] [place], [place] [phone] Clemente Gerardo MD [address] [facility], [address] [place] [phone] 12/06/2024 10:[address] [facility] Ophthalmology [facility] [address] [place], [place] [phone] Spike Puentes MD [address] [place] [phone] Scheduled Procedures Name Priority Associated Diagnoses Date/Ti me INSERTION, PENILE PROSTHESIS, INFLATABLE, 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 10/14/2024 11:00 EST documented as of this encounter Visit Diagnoses Not on filedocumented in this encounter Administered Medications Inactive Administered Medications - up to 3 most recent administrations Medication Order MAR Action Action Date Dose Rate Site lidocaine (PF) 20 mg/mL (2 %) injection intravenous, PRN, Starting on Thu02/11/23 at 1351, Until Thu02/11/23 at 1456, Routine, Anesthesia Intraprocedure Given 02/11/2023 13:51 EDT 60 mg propOFol (DIPRIVAN) injection intravenous, PRN, Starting on Thu02/11/23 at 1351, Until Thu02/11/23 at 1456, Routine, Anesthesia Intraprocedure Rate Change 02/11/2023 14:21 EDT 80 mcg/kg/min 51.168 mL/hr Rate Change 02/11/2023 14:17 EDT 70 mcg/kg/min 44.772 mL/h r Rate Change 02/11/2023 14:11 EDT 90 mcg/kg/min 57.564 mL/h r documented in this encounter Care Teams Racquet Maker Relationship Specialty Start Date End Date Vel Santos MD PCP - General 10/30/11 03/09/23 documented as of this encounter
--- OUTSIDE RECORDS SUMMARY | 2024-07-19 22:12 | XMS_ITS | Encounter Summary ---
Author Organization [facility] Address [address] [place] [address] Care Team Providers Care Geophysical Operator Name Role Phone Vel Santos MD Primary Care Provider Unava ilable Reason for Referral * Referral (Routine) - Specialty Report Received Specialty Diagnoses / Procedures Referred By Contact Referred To Contact Gastroenterology and Hepatology Diagnoses Colon cancer screening History of colonic polyps Procedures COLONOSCOPY LA COLONOSCOPY FLX DX W/COLLJ SPEC WHEN PFRMD LA COLONOSCOPY W/BIOPSY SINGLE/MULTIPLE LA COLSC FLX W/REMOVAL LESION BY HOT BX FORCEPS ANESTHESIA LOWER INTST ENDOSCOPIC PX NOS Vel Santos MD [facility] [place] [address] Referral ID Status Reason Start Date Expiration Date V isits Requested Visits Authorized [id number] Specialty Report Received 12/11/2022 1 1 * Referral (Routine/Next Available) - Receiving Office to Obtain Authorization Specialty Diagnoses / Procedures Referred By Contact Referred To Contact Gastroenterology and Hepatology Procedures COLONOSCOPY PROCEDURE Gigi Corcoran MD [address] [facility] [address] [place] [address] Referral ID Status Reason Start Date Expiration Date Visits Requested Visits Authorized [id number] Receiving Office to Obtain Authorization 02/02/2023 1 1 Reason for Visit * Referral (Routine) - Specialty Report Received Specialty Diagnoses / Procedures Referred By Contact Referred To Contact Gastroenterology and Hepatology Diagnoses Colon cancer screening History of colonic polyps Procedures COLONOSCOPY LA COLONOSCOPY FLX DX W/COLLJ SPEC WHEN PFRMD LA COLONOSCOPY W/BIOPSY SINGLE/MULTIPLE LA COLSC FLX W/REMOVAL LESION BY HOT BX FORCEPS ANESTHESIA LOWER INTST ENDOSCOPIC PX NOS Vel Santos MD [facility] [address] [place] [address] Referral ID Status Reason Start Date Expiration Date V isits Requested Visits Authorized [id number] Specialty Report Received 12/11/2022 1 1 Encounter Details Date Type Department Care Team (Late st Contact Info) Description 02/02/2023 8:20 EDT - 02/02/2023 23:59 EDT Hospital Encounter [facility] Endoscopy - [address] [address] Gigi Corcoran MD 111 [facility], [address] [place] [address] Nilo Anesthesiologist Kwesi Farris MD Colon cancer screening; History of colonic polyps Discharge Disposition: Home or Self Care Social [...] Sign Reading Time Taken Comments Blood Pressure 136/65 02/02/2023 1010 EDT Pulse - - Temperature 36.4 ??C (97.5 ??F) 02/02/2023 0957 EDT Respiratory Rate 22 02/02/2023 1010 EDT Oxygen Saturation 96% 02/02/2023 1010 EDT Inhaled Oxygen Concentration - - Weight 110.7 kg (244 lb) 02/02/2023 0838 EDT Height 180.3 cm (5' 11) 02/02/2023 0838 EDT Body Mass Index 34.03 02/02/2023 0838 EDT documented in this encounter Functional Status [...] daily. 90 Tablet 3 10/16/2022 [facility], [facility] Syringe 3cc 02/17/2017 LANCETS & BLOOD GLUCOSE STRIPS [facility] test strips and lancets for glucose monitor , Sig: test once a day test once a day 09/20/2018 nitroGLYCERIN (NITROSTAT) 0.[address] 1 Tablet under the tongue as needed. 07/07/2014 Fqutm-8-IXI-EPA-Fish Oil 1,000 (120-180) mg capsule Take 1,000 [...] or Self Care documented in this encounter H&P Notes * Gigi Corcoran MD - 02/02/2023 0920 EDT Endoscopy Sedation for Procedure History & Physical Date: 02/02/2023 Time: 9:23 Location: [facility] Endoscopy - [facility] Planned Procedure: Colonoscopy Chief Complaint/Indications for Procedure: h/o colon polyps History Previous Complication with Sedation and/or Anesthesia? No Allergies: Allergies Allergen Reactions ??? Other - See Comments ??? Lisinopril Swelling of tongue ??? Sulfa (Sulfonamide Antibiotics) Shortness Of Breath and Swelling ??? Cyclobenzaprine Other reaction(s): Unknown ??? Ibuprofen Swelling Other reaction(s): edema ??? Naproxen Sodium Swelling Other reaction(s): edema ??? Tramadol Other (See Comments) Other reaction(s): DIZZINESS Current Medications: Current Outpatient Medications Medication ??? acetaminophen-codeine (TYLENOL #3) 300-30 mg per tablet ??? amLODIPine (NORVASC) 10 mg tablet ??? aspirin 325 mg tablet ??? azithromycin (ZITHROMAX) 250 mg tablet ??? blood glucose meter ??? blood glucose test strips ??? buPROPion (WELLBUTRIN SR) 150 mg SR tablet ??? Cholecalciferol, Vitamin D3, 50 mcg capsule ??? clopidogreL (PLAVIX) 75 mg tablet ??? DIABETIC SUPPLIES, MISCELLAN. MISC ??? econazole nitrate 1 % cream ??? erythromycin (ROMYCIN) 5 mg/gram (0.5 %) ophthalmic ointment ??? lamoTRIgine (LAMICTAL) 25 mg tablet ? ? LANCETS & BLOOD GLUCOSE STRIPS MISC ??? MEDICAL MARIJUANA ??? nitroGLYCERIN (NITROSTAT) 0.4 mg SL tablet ??? nystatin (MYCOSTATIN) ointment ??? Tesdu-1-UKZ-EPA-Fish Oil 1,000 (120-180) mg capsule ??? pantoprazole (PROTONIX) 40 mg tablet ??? polyethylene glycol (MIRALAX) 17 gram/dose powder ??? testosterone cypionate (DEPO-TESTOSTERONE) 200 mg/mL injection ??? ubidecarenone/vitamin E mixed (COQ10 SG 100 ORAL) ??? zoster vaccine recombinant, PF, (SHINGRIX, PF,) IM Injection - vial ??? zoster vaccine recombinant, PF, (SHINGRIX, PF,) IM Injection - vial Current Facility-Administered Medications Medication Route Frequency ??? diphenhydrAMINE (BENADRYL) injection 25 mg intravenous Once PRN ??? sodium chloride 0.9 % (NS) infusion intravenous PRN Or ??? lactated ringers (LR) infusion intravenous PRN ??? lidocaine 1 % injection 2 mg intradermal PRN ??? lidocaine 1 % injection 2 mg intradermal PRN ??? ondansetron (PF) (ZOFRAN) injection 2-4 mg intravenous PRN ??? sodium chloride 0.9 % (flush) flush 3 mL intravenous PRN ??? sodium chloride 0.9 % (flush) flush 5 mL intravenous Q8H Past Medical History: Past Medical History: Diagnosis Date ??? Abnormal stress test 04/20/2017 s/p JANET ??? Activity, other involving cardiorespiratory exercise 01/30/23- able to climb 2 FOS w/o SOB ??? Amblyopia per pt-left eye ??? Anomaly, cardiac cardiac stents ??? Arrhythmia 01/30/23- currently has zio patch for palpitations, CP, and SOB ??? Cancer ([facility]) ([facility]) prostates and skin cancer ??? Cerebral artery occlusion with cerebral infarction ([facility]) 2018 01/30/23-Acute ischemic left MCA stroke. [...] Hypertension 01/30/23- well controlled per pt ??? AK (myocardial infarction) ([facility]) (HCC) ([facility]) 2008 x2. 2008 & 2011. JANET x4 ??? Poor dentition 01/30/23- reports having 2 broken teeth ??? Rash 01/30/23- eczema on face ??? Seizures ([facility]) 2019 01/30/23- well controlled on Lamictal, thought to be due to high dose Wellbutrin. None since 2018 ??? Shortness of breath 01/30/23- currently has zio patch for palpitations, CP, and SOB Social History: Past Surgical History: Procedure Laterality Date ??? CARDIAC CATHERIZATION 12/2004 normal - Dr. Evans [facility] ??? COLONOSCOPY 12/2004 WNL - Dr. Turcios f/u 10 yrs ??? CORONARY ANGIOPLASTY WITH STENT PLACEMENT 2010 NSTEMI s/p JANET ??? FOOT SURGERY Right tendon surgery ??? RADICAL PROSTATECTOMY 12/2004 Laparoscopic radical prostatectomy, umbilical hernia repair - Dr. Encinas [facility] ??? SINUS SURGERY nasal / sinus surgery Social History Tobacco Use ??? Smoking status: Former ??? Smokeless tobacco: Never Substance Use Topics ??? Alcohol use: Yes Alcohol/week: 7.0 standard drinks Types: 7 Glasses of wine per week Family History: Family History Problem Relation Age of Onset ??? Heart Disease Mother CHF ??? Heart Disease Father AAA ??? Macular Degeneration Neg Hx ??? Retinal Detachment Neg Hx ??? Glaucoma Neg Hx ??? Breast Cancer Neg Hx ??? Colon Cancer Neg Hx ??? Colon Polyps Neg Hx ??? Endometrial Cancer Neg Hx ??? Esophageal Cancer Neg Hx ??? Ovarian Cancer Neg Hx ??? Pancreatic Cancer Neg Hx ??? Rectal Cancer Neg Hx Review of Systems as pertinent: Physical Exam Vital Signs: BP (!) 136/93 Temp 36.3 ??C (97.3 ??F) (Temporal) Resp 16 Ht 180.3 cm (71) Wt(!) 110.7 kg (244 lb) SpO2 97% BMI 34.03 kg/m?? Heart Examination: Cardiac Regularity: Regular Respiratory Examination: Respiratory Pattern: Regular Breath Sounds Right: Clear Breath Sounds Left: Clear Abdominal Examination: Soft, non-tender, bowel sounds normal, no masses, no organomegaly Additional physical exam related to the proposed procedure, patient activity, disease state and treatment as pertinent: Assessment Previous complications with sedation or anesthesia?: No Airway Concerns: Asthma Anesthesia Classification: ASA 3 Plan: Proceed with sedation for procedure Fasting Time: Date of Last Liquid: 02/02/23 Time of Last Liquid: 0515 Date of Last Solid: 01/30/23 Time of Last Solid: 2358 Patient Appropriate Candidate for Planned Sedation?: Yes Gigi Corcoran MD 02/02/2023 9:23 documented in this encounter Nursing Notes * Ivett Puentes RN - 02/02/2023 0947 EDT Resolution 360 Ultra Clip x1 applied to Cecal polypectomy site. * Ivett Puentes RN - 02/02/2023 0945 EDT Eleview Lifting agent injected endoscopically into cecal polyp site. * Ivett Puentes RN - 02/02/2023 0927 EDT See anesthesia record for VS, medications, and sedation times. documented in this encounter Plan of Treatment Upcoming Encounters Date Type Department Care Team (Late st Contact Info) Description 10/04/2024 9:50 EST Appointment [facility] Pre-Surgical Testing [address] [place] [id number] 10/14/2024 11:00 EST Hospital Encounter [facility] OR [address] [place] [address] [phone] Clemente Gerardo MD [address] [place] [address], [address] [place] [phone] 10/14/2024 11:00 EST - 10/14/2024 14:35 EST Surgery [facility] OR [address] [place] [address] [phone] Clemente Gerardo MD [address] [place] [phone] Implantation of inflatable penile prosthesis [84318 (CPT??)] 10/17/2024 9:00 EST Telemedicine [facility] [address] [phone] Nurse Call, [facility] Urology 10/31/2024 15:00 EST Post-op Visit [address] [phone] Clemente Gerardo MD [address] [place] [phone] 12/06/2024 10:15 EST Office Visit [address] [address] Spike Puentes MD [address] [place] [phone] Pending Results Name Type Priority Associated Diagnoses Date /Time COLONOSCOPY GI Routine Colon cancer screening History of colonic polyps 02/02/2023 9:35 EDT Scheduled Orders Name Type Priority Associated Diagnoses Orde r Schedule COLONOSCOPY GI Routine Colon cancer screening History of colonic polyps 1 Occurrences starting 02/02/2023 until 02/02/2023 Scheduled Procedures Name Priority Associated Diagnoses Date/Ti me INSERTION, PENILE PROSTHESIS, INFLATABLE, 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 10/14/2024 11:00 EST documented as of this encounter Procedures Procedure Name Priority Date/Time Associated Diagnosis Comments COLONOSCOPY PROCEDURE Routine 02/02/2023 9:57 EDT SURGICAL PATHOLOGY Routine 02/02/2023 9: 46 EDT Colon cancer screening History of colonic polyps documented in this encounter Results * COLONOSCOPY PROCEDURE (02/02/2023 9:57 EDT) Anatomical Region Laterality Modality Endoscopy Narrative 02/02/2023 9:57 EDT Procedure Performed Colonoscopy Indications for Exam Surveillance, ??History of colonic polyps. Procedure Technique A physical exam was performed. [...] and advanced under direct visualization to the Cecum. The Cecum was identified by visual landmarks. The endoscope was subsequently removed slowly while carefully examining the color, texture, anatomy, and integrity of the mucosa on withdrawal. Retroflexion was performed in the rectum: Yes. The patient was subsequently transferred to the recovery area in satisfactory condition. Rectal Exam:Normal rectal exam Estimated Blood Loss: None Complications None Medications MAC Anesthesia See Anesthesia Record [place] Bowel Prep Right Colon: 2 ? Transverse Colon: 2 ? Left Colon: 2 ?Total: 6 Findings 10 mm flat polyp in the cecum. Polypectomy performed with EMR with submucosal injection and snare resection using forced coag 2 settings. One endoclip placed. 3 mm flat elevated polyp in the ascending colon. Polypectomy performed with cold biopsy forcep. Diverticulosis in the sigmoid colon. Prep was fair to inadequate. internal hemorrhoids. Diagnosis 10 mm flat polyp in the cecum. Polypectomy performed with EMR with submucosal injection and snare resection using forced coag 2 settings. One endoclip placed. 3 mm flat elevated polyp in the ascending colon. Polypectomy performed with cold biopsy forcep. Diverticulosis in the sigmoid colon. Prep was fair to inadequate. internal hemorrhoids. Recommendations Follow biopsy results. Repeat colonoscopy in 1 year (secondary to fair to inadequate prep). Recommend better prep for future procedures (not Miralax) This electronic signature authenticates all electronic and/or handwritten documentation, including orders, generated by the signer during the episode of care contained in this record. 02/02/2023 09:57:23 AM By Gigi Corcoran MD Gigi Corcoran MD GI PROCEDURE ORDE CLINT * SURGICAL PATHOLOGY (02/02/2023 9:46 EDT) Note to Patient The following pathology results have been interpreted by your pathologist and may be available to you before your health provider has had the opportunity to review them. Please allow time for your provider to receive these results and explore management options, if applicable. 02/03/2023 19:01 [facility] Final Diagnosis A. COLON, CECUM, POLYP, BIOPSY: - Fragments of sessile serrated adenoma. B. COLON, ASCENDING, POLYP, BIOPSY: - Tubular adenoma. 02/03/2023 19:01 [facility] Attestation By the signature below, the attending physician certifies that they have 1) personally conducted a gross and/or microscopic examination of the described specimen(s), and/or personally interpreted the results of laboratory testing of the described specimen(s), and 2) personally rendered or confirmed the above diagnosis. 02/03/2023 19:01 [facility] at 1901 Clinical History History of colon polyps 02/03/2023 19:01 [facility] Gross Description A. Received in formalin labelled with proper patient identification (initials H, P) and cecal polyp is an aggregate of conde tissue fragments (1.0 x 0.8 x 0.4 cm). Entirely submitted in A1. B. Received in formalin labelled with proper patient identification (initials H, P) and ascending colon polyp is a conde-pink tissue (0.5 x 0.4 x 0.2 cm). Entirely submitted in B1. LAZARO CURRY(ASCP) 02/02/2023 14:10 02/03/2023 19:01 [facility] Performing Lab [facility] 02/03/2023 19:01 [facility] Scanned Images 02/03/2023 19:01 [facility] Tissue POLYP OF COLON / Unknown 02/02/2023 9:46 EDT 02/02/2023 10:48 EDT Comment:History of Colon Frandy yps Tissue specimen (specimen) POLYP OF COLON / Unknown 02/02/2023 9:48 EDT 02/02/2023 10:48 EDT Comment:History of Colon Frandy yps Gigi Corcoran MD PATHOLOGY ORDERAB LES [facility] [address] [place] [phone] documented in this encounter Visit Diagnoses Diagnosis Colon cancer screening Special screening for malignant neoplasms, colon History of colonic polyps Personal history of colonic polyps Erectile dysfunction after radical prostatectomy documented in this encounter Administered Medications Inactive Administered Medications - up to 3 most recent administrations Medication Order MAR Action Action Date Dose Rate Site lactated ringers (LR) infusion 30 mL/hr, intravenous, PRN, Starting on 02/02/23 at 0834, Until Nydia 02/05/23 at 0204, Routine, Preprocedure Restarted 02/02/2023 9:27 EDT New Bag 02/02/2023 8:44 EDT 30 mL/hr 30 mL/hr documented in this encounter Orders Medications Ordered That Vasiliy ht Not Have Been Administered Count Last Ordered Date First Ordered Date atropine 0.1 mg/mL syringe 0.5 mg 1 023 diphenhydrAMINE (BENADRYL) injection 25 mg 1 02/02/2023 lactated ringers (LR) infusion 1 02/02/2023 lidocaine 1 % injection 2 mg 2 02/02/2023 naloxone (NARCAN) injection 0.2 mg 1 2022 ondansetron (PF) (ZOFRAN) injection 2-4 mg 1 02/02/2023 sodium chloride 0.9 % (flush) flush 3 mL 1 02/02/2023 sodium chloride 0.9 % (flush) flush 5 mL 1 02/02/2023 sodium chloride 0.9 % (NS) infusion 1 02/02 documented in this encounter Care Teams Geophysical Operator Relationship Specialty Start Date End Date Vel Santos MD PCP - General 10/30/11 03/09/23 documented as of this encounter
--- OUTSIDE RECORDS SUMMARY | 2024-07-19 22:12 | XMS_ITS | Encounter Summary ---
Author Organization [facility] Address [address] [place] [address] Care Team Providers Care Wash Barrel Leader Name Role Phone Vel Santos MD Primary Care Provider Marco Cowart MD Primary Care Provider [phone] Marco Aleman MD Primary Care Provider [phone] Encounter Details Date Type Department Care Team (Late st Contact Info) Description 02/10/2023 Documentation Visit [facility] Gastroenterology - [address] [address] Josesito Handy DO 111 [facility], [address] [place] [phone] Social History Tobacco Use Types Packs/Day Years [...] as of this encounter Progress Notes * Josesito Handy DO - 02/10/2023 0143 EDT Patient underwent colonoscopy about one week prior with polypectomy. He is calling due to rectal bleeding that began yesterday. Went to [facility] ED yesterday and had blood work and was discharged. Reports on-going copious rectal bleeding; no other symptoms. I advised he go to [facility] ER. Explained that he should be admitted to the hospital. He agrees and willmake his way over to [facility]. Plan will be for bowel prep followed by Col onoscopy later today versus tomorrow pending timing of bowel prep. Josesito Handy PGY5 GI Fellow documented in this encounter Plan of Treatment Upcoming Encounters Date Type Department Care Team (Late st Contact Info) Description 10/04/2024 9:50 EST Appointment [facility] Pre-Surgical Testing [address] [place] [address] [phone] 10/14/2024 11:00 EST Hospital Encounter [facility] OR [address] [place] [address] [phone] Clemente Gerardo MD [address] [place] [address], [facility] [address] [place] [phone] 10/14/2024 11:00 EST - 10/14/2024 14:35 EST Surgery [facility] OR [address] [place] [address] [phone] Clemente Gerardo MD [address] [phone] Implantation of inflatable penile prosthesis [79515 (CPT??)] 10/17/2024 9:00 EST Telemedicine [facility] Urology [address] [phone] Nurse Call, [facility] Urology 10/31/2024 15:00 EST Post-op Visit [address] [phone] Clemente Gerardo MD [address] [place] [phone] 12/06/2024 10:15 EST Office Visit [address] [phone] Spike Puentes MD [address] [place] [phone] Scheduled Procedures Name Priority Associated Diagnoses Date/Ti me INSERTION, PENILE PROSTHESIS, INFLATABLE, 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 10/14/2024 11:00 EST documented as of this encounter Visit Diagnoses Not on filedocumented in this encounter Care Teams Wash Barrel Leader Relationship Specialty Start Date End Date Vel Santos MD PCP - General 10/30/11 03/09/23 Marco Altamirano MD [address] [place] [phone] PCP - General Family Medicine - Primary Care 03/10/23 09/13/23 Marco Aleman MD [address] [place] [address] [place] [address] [phone] PCP - General Emergency Medicine 12/07/23 documented as of this encounter
--- OUTSIDE RECORDS SUMMARY | 2024-07-19 22:12 | XMS_ITS | Encounter Summary ---
Author Organization [facility] Address [address] [place] [address] Care Team Providers Care Communications Writer Name Role Phone Vel Santos MD Primary Care Provider Unava ilable Reason for Referral * Follow Up (Routine/Next Available) - Closed Specialty Diagnoses / Procedures Referred By Yi cummings Referred To Contact Diagnoses Rectal bleeding Acute blood loss anemia [facility] 6 Gen Med/Tele [address] [place] [address] [facility] [address], [facility] [address] [place] [address] Referral ID Status Reason Start Date Expiration Date V isits Requested Visits Authorized [id number] Closed Continuity of Care 02/12/2023 1 1 Question Answer Reason for Request: Admission follow up, lower GI bleed following polypectomy Reason for Visit * Reason Comments Rectal Bleeding Pt arrives to triage after c/o ~ 24 hours rectal bleeding. Had colonoscopy last Thursday, spoke w/ GI last night who told him to come in. Endorses nausea/dizziness. * Auth/Cert (Routine) Specialty Diagnoses / Procedures Referred By Yi cummings Referred To Contact Diagnoses Rectal bleeding Anemia Referral ID Status Reason Start Date Expiration Date Visits Re quested Visits Authorized [id number] 1 1 Encounter Details Date Type Department Care Team (Late st Contact Info) Description 02/10/2023 12:31 EDT - 02/12/2023 13:20 EDT Hospital Encounter [facility] 6 General Medicine Telemetry Unit [address], [place] [id number] Sunshine Torres PA-C [address] [facility] [address] [place] [phone] Chepe Eid MD [address] [facility] [address] [place] [phone] Dustin Hubbard MD Burnett, Maria, MD [address] [phone] Rectal bleeding (Primary Dx); Acute blood loss anemia Discharge Disposition: Home or Self Care Social [...] Sign Reading Time Taken Comments Blood Pressure 93/81 02/12/2023516 EDT Pulse 75 02/11/2023 210 EDT Temperature 36.5 ??C (97.7 ??F) 02/12/2023 0517 EDT Respiratory Rate 16 02/12/202317 EDT Oxygen Saturation 93% 02/12/2023516 EDT Inhaled Oxygen Concentration - - Weight 106.6 kg (235 lb) 02/10/2023 1215 EDT Height 180.3 cm (5' 11) 02/10/2023 1215 EDT Body Mass Index 32.78 02/10/2023 1215 EDT documented in this encounter Functional Status [...] 02/10/2023 documented as of this encounter Discharge Summaries * Annia Machado MD - 02/12/2023 1234 EDT HOSPITAL MEDICINE DISCHARGE SUMMARY Primary Care Provider: Vel Santos Attending Physician: Annia Machado MD Admit Date: 02/10/23 Discharge Date: 02/12/2023 Disposition (location): Home or self care Condition at Discharge: Stable Reason for Admission (chief complaint): Bleeding post colonoscopy with polypectomy Principal/Final Diagnosis: Rectal bleeding Additional Problems Managed in the Hospital: Active Hospital Problems Diagnosis Date Noted ??? *Rectal bleeding 02/10/2023 ??? Anemia 02/10/2023 ??? Acute blood loss anemia Resolved Hospital Problems No resolved problems to display. Transition of care: [facility] Transition of Care report automatically routed to PCP office on discharge.Additional handoff communication performed via: [employer] Staff Message Clinical Issues Needing Follow-up 1. Pertinent medication changes: Hold amlodipine 10 mg daily based on BP. Check BP every day; take medication if >130/80 and holdmedication if < 130/80. 2. Recommended follow-up tests/procedures needed: Follow up with primary care in a week; follow up with GI as scheduled 3. Anticoagulation on discharge: No, but on antiplatelet agents Indication(s): CVA prophylaxis Medication: Plavix 75 mg and ASA 325 mg 4. Changes to goals of care at time of discharge (if applicable): No changes to goals of care Hospital Course: Mr. Gloria Garcia is a 72 yo M with history CAD, CVA, anxiety who presented to the ED with 1 day of progressive melena versus BRBPR after recent routine colonoscopy during which he had polypectomy. On admission he was hemodynamically stable/normal, labs most notable for mild anemia to 11.6 (but profoundly symptomatic with dizziness and recent decline from baseline hgb 16) otherwise normal. Given how symptomatic he was in the setting of this hgb drop he was transfused 1u pRBC's; due to continued inadequate response to transfusion, the patient received and additional two units of pRBCs. GI was consulted out of concern for post polypectomy lower GI bleed. His antihypertensives and antiplatelets (asa 325 and plavix 75mg daily for hx PCI and CVA) were held due to active bleed. He was preppedovernight and underwent a colonoscopy on 02/11 that showed old blood throughout the colon but no active bleeding, a clean-based polypectomy ulcer with a pigmented spot within the ulcer base that was clipped. Diverticulosis was also noted to be another possible source of bleeding. After the colonoscopy, the patient received an additional unit of pRBC. On the day of discharge (02/12) the patient tolerated clear liquid diet well and was HD stable. He had no additional bloody BM post procedure and had no symptomatic complaints. He was instructed to closely monitor his bowel movements in the coming days and eat enough protein to help restore his blood. His plavix 75 mg and ASA 325 mg was restarted before discharge. He was discharged home and recommended to follow up with his primary care provider in the next week. Relevant Imaging/Procedures Performed: Colonoscopy 02/11/2023 Findings Colon: There was old blood throughout the colon, old clots and dark red blood, no active, red bloodwas seen Cecum: There was a clean-based polypectomy site with a clip in place, non- bleeding. There was a pigmented spot within the ulcer base, a single clip was placed over the spot. Sigmoid colon: Diverticulosis was present Results Pending at Discharge: Test results still pending from this admission None Follow-up appointments and procedures Amb Consult/Follow Up Primary Care Physician - [facility] Reason for Request: Admission follow up, lower GI bleed following polypectomy Authorizing Provider: Kris Hernandez MD Internal Medicine PGY-1 Pager #[phone] KRIS HERNANDEZ 02/12/2023 12:34 Attending Attestation I interviewed and examined the patient; reviewed interval labs, events, and notes. I discussed the case with the medicine house staff team and agree with and edited the findings and plan of care as documented in resident discharge summary above. I personally spent 35 minutes counseling and preparing the patient for discharge and coordinating outpatient follow-up. Annia Machado MD Internal Medicine Hospitalist 02/12/2023 17:11 documented in this encounter Discharge Instructions * Discharge Instr - AVS First Page* Kris Hernandez - 02/12/2023 12:01 EDT Mr. Gloria Garcia, you were admitted to the hospital for a gastrointestinal (GI) bleed. This was very severe at first, and you were given several units of blood. There was concern that you were bleeding from the site of polyp removal that you had last week, so another colonoscopy was performed. It showed no active bleeding at the site, but because it certainly could have been the source of bleeding, another clip was placed. You were also noted to have a finding called diverticulosis, which involves the sides of the colon forming small pouches called diverticuli. These diverticuli are usually asymptomatic but do carry a small risk of bleeding. You may restart your clopidogrel and aspirin. However, we would like you to hold your amlodipine (blood pressure medication) if your blood pressure is running low; see below for instructions. Follow up: Please see your recommended follow-up below. Primary care in one week GI as scheduled Labs / Imaging: You can speak to your primary care physician about your lab results. Major Medication Changes: Please review the complete list of your medications below. Some of the most important new medication changes you will have going forward include: HOLD amlodipine 10 mg daily based on your blood pressure. Please check your blood pressure at leastonce every day. If your blood pressure > 130/80, you may take the medication. If your blood pressure is < 130/80, do not take the medication. CONTINUE taking all your other medications as prescribed. Please speak to your primary care physician about any questions you have regarding your medications. Thank you for choosing [facility] for your care! documented in this encounter Medications at Time [...] Tablet under the tongue as needed. 07/07/2014 Apbzs-6-LML-EPA-Fish Oil 1,000 (120-180) mg capsule Take 1,000 mg by mouth 2 times daily. POTASSIUM ACETATE MISC 90 mg by misc (non-drug; combo route) route daily. vitamin E mixed/tocotrienol (VITAMIN E COMPLEX ORAL) Take 400 mg by mouth daily. acetaminophen-codein e (TYLENOL #3) 300-30 mg per tabletIndications:Cl osed fracture of one rib of left side, initial encounter Take 1 Tablet by mouth every 6 hours as needed for Pain. Daily Max: 4 Tablets 10 Tablet 12/23/2021 02/22/2023 amLODIPine (NORVASC) 10 mg tablet Take 1 Tablet by mouth daily for 90 days. 90 Tablet 3 10/16/2022 03/12/2023 buPROPion (WELLBUTRIN SR) 150 mg SR tablet Take 1 Tablet by mouth daily. 90 Tablet 3 10/16/2022 09/11/2023 erythromycin (ROMYCIN) 5 mg/gram (0.5 %) ophthalmic ointment Apply 1/4 strip 3.5 g 10/10/2021 06/03/2024 L.acid/L.casei/B.bif /B.mila/FOS (PROBIOTIC BLEND ORAL) Take by mouth daily. 024 lamoTRIgine (LAMICTAL) 25 mg tablet 1 po a day for one week, then one po bid, then 2 po bid as directed , finally up to 3 pills bid 180 Tablet 5 01/01/2023 02/22/2023 MEDICAL MARIJUANA 06/03/2024 pantoprazole (PROTONIX) 40 mg tablet Take [...] Code Departure Means Destination Home or Self [facility] documented in this encounter Progress Notes * Micky Reynolds - 02/12/2023 1139 EDT Discharge Note CASE MANAGEMENT DISCHARGE NOTE DISCHARGE DATE/TIME: 02/12/2023; 1200ish DESTINATION: Home TRANSPORTATION: Provided by family FACTORY HAND/CHARGE/MD NOTIFIED (Y/N): Yes FORMS: (Acute to acute, COLST, MOLST, AMANDA, Screen, PASRR, Ambulance): N/A IM SIGNED (Y/NA): Y HOME HEALTH: N/A DME: N/A PHARMACY/PRESCRIPTIONS: No new medications MEDS TO BEDS UTILIZED : No Patient and/or family who participated in discharge plan: Family, providing ride. OTHER: * Tianna Green RN - 02/12/2023 0811 EDT Nursing Discharge Note D: Patient noted with discharge orders to: Home with family. A: No new scripts Reviewed discharge instructions and prescriptions with Patient IV d/c'd. Belongings collected and sent home with patient. R: Patient and Family verbalized understanding of discharge instructions and denied further questions. TIANNA GREEN RN 02/12/2023 8:11 * Micky Reynolds - 02/11/2023 1740 EDT Gloria Garcia 1950 Rectal bleeding Chart review completed and discussed the plan of care with the direct care RN and/or primary care team. Primary Insurance: Medicare Secondary Insurance: [employer] Patient with no apparent Case Management needs at this time. No housing, transportation, insurance,resources concerns identified at this time. Supports in place to achieve a safe post-hospital transition. No identified barriers to accessing necessary care and/or follow-up after discharge. skin tanner/Intervention Analyst will continue to follow patient's progress and remain available if situation changes for coordination of care, psychosocial support and/or discharge planning. Pt expects to discharge home tomorrow, 02/12. Daughter will be providing ride home, likely about 11am. 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 MICKY REYNOLDS 02/11/2023 17:40 * Michoacano Vincent MD - 02/11/2023 1538 EDT Brief Anesthesiology Note Called to evaluate pain in patient's right eye after GI procedure. Clear right lateral corneal abrasion. Diagnostic test with lidocaine was positive. Discussed conservative management using ointment for 2 days. Wrote orders for erythromycin QID for 2 days. Called in the abrasion to the anesthesiology quality hotline. Michoacano Vincent MD PhD 02/11/2023 15:41 * Norbert Stanford MD - 02/11/2023 1456 EDT Procedure Performed Colonoscopy Indications for Exam Post polypectomy bleeding. Procedure Technique A physical exam was performed. Informed consent was obtained from the patient after explaining all the risks (perforation, bleeding, missed findings, injury to nearby organs, infection and adverse effects to the medicine), benefits and alternatives to the procedure which the patient appeared to understand and so stated. The patient was connected to the monitoring devices [...] None Medications MAC Anesthesia See Anesthesia Record [place] Bowel Prep Right Colon: 2 Transverse Colon: 2 Left Colon: 2 Total: 6 Findings Colon: There was old blood throughout the colon, old clots and dark red blood, no active, red bloodwas seen Cecum: There was a clean-based polypectomy [...] standpoint, colonoscopy as outlined by Dr. Corcoran * Annia Machado MD - 02/11/2023 1030 EDT Medicine Progress Note Service Date: 02/11/2023 Admit Date: 02/10/2023 12:31 Reason for Admission: 72 y.o. male admitted presenting to [facility] for rectal bleeding status post colonoscopy (02/02) with polypectomy. 24 Hour Events: - 3 units of blood transfused - Prep for colonoscopy Subjective/Objective Subjective The patient is very upset due to the course of his hospital stay. He believes that the care team has not been attentive to his needs and concerns, and is not happy that his bowel prep medication was not available as an inpatient medication since he did not tolerate GoLytely in the past. He continues to have bloody BM due to prep for afternoon colonoscopy. He is not in acute distress. He does endorse dizziness and visual disturbances when he stands up but this improves when he sits or lays down.He denies fever, chills, SOB, nausea, and cough. Review of Systems Pertinent positive and negative findings listed in HPI, otherwise negative Objective Vital Signs Temp: [36.2 ??C (97.1 ??F)-37.1 ??C (98.7 ??F)] , Heart Rate: [70 BPM-94 BPM] , Resp: [16-20] , BP:(79-132)/(57-84) , SpO2: [95 %-100 %] Physical Exam Gen: comfortable in room, NAD HEENT: NCAT. Mask in place. Pulm: Comfortable on RA. CTA bilaterally, no wheezing/crackles/rales CV: RRR, no MRG Abd: Obese. Mildly tender to light palpation BL R and L upper quadrants, no rebound or guarding Ext: WWP, trace LE edema b/l. Skin: Warm, dry, no rashes or lesions appreciated on exposed skin Neuro: Alert and oriented to provider Psych: Appears euthymic, calm Is PICC or central line present? No, PICC/Central line not present. Medications Reviewed: Current Facility-Administered Medications: ??? buPROPion (WELLBUTRIN SR) SR tablet 150 mg, 150 mg, oral, DAILY, Linda Falcon MD, 150 mg at02/11/23912 ??? lactated ringers (LR) infusion, 1,000 mL, intravenous, CONTINUOUS, Igor Govea MD, Last Rate: 100 mL/hr at 02/11/23854, Rate Verify at 02/11/23854 ??? lamoTRIgine (LAMICTAL) tablet 25 mg, 25 mg, oral, QHS, Igor Govea MD, 25 mg at 02/10/232226 ??? lamoTRIgine (LAMICTAL) tablet 50 mg, 50 mg, oral, DAILY, Igor Govea MD, 50 mg at 02/11/23912 ??? lidocaine (PF) 10 mg/mL (1 %) injection 2 mg, 2 mg, intradermal, PRN, Linda Falcon MD ??? ondansetron (ZOFRAN-ODT) disintegrating tablet 4 mg, 4 mg, oral, Q4H PRN OR ondansetron (PF) (ZOFRAN) injection 4 mg, 4 mg, intravenous, Q4H PRN, Igor Govea MD ??? polyethylene glycol (GoLYTELY;NuLYTELY) suspension 4 L, 4 L, oral, SEE ADMIN INSTRUCTIONS, Madeline Centeno MD Labs Reviewed: Notable labs: anemia in the setting of blood loss Latest Reference Range & Units 02/11/23 08:41 RBC 4.36 - 5.78 M/cmm 2.97 (L) Hemoglobin 13.8 - 17.3 gm/dL 9.5 (L) HCT 39.5 - 50.2 % 26.9 (L) (L): Data is abnormally low Imaging Reviewed: No new imaging. Assessment/Plan Assessment Gloria Garcia is a 72 y.o. male with a PMHx significant for hx of CAD (hx PCI x4, last occurred about 10 years ago), CVA (no neuro deficits, occurred 5 yrs ago), HTN, anxiety who presented to the ED with 1 day of progressive dark bowel movements after recent (02/02/23) colonoscopy with polypectomy.Admitted for medical management of acute blood loss anemia symptomatic by dizziness and visual disturbances. GI has been consulted and he will undergo a colonoscopy with general anesthesia this afternoon. Plan Principal Problem: Acute anemia secondary to rectal bleeding Most likely in the setting of recent colonoscopy with polypectomy given temporal association with procedure, also on ddx is hemorrhoidal bleeding given hx of internal hemorrhoids. Could not tolerate GoLytely due to nausea/vomiting and had to take SuPrep, which is not available as an inpatient medication. - Clear liquid diet at this time, NPO started last night - Given that patient is symptomatic with downtrending Hgb, 3 units of blood transfused; continue observation - trend CBC q12h - Transfusion < 8 if symptomatic - Colonoscopy planned for this afternoon; appreciate management recs based on findings per GI Chronic conditions: Hx CAD and CVA Prophylactic lavix and aspirin was started for CVA event in 2018 - Continue holding BOLT MAKER asa 325mg and plavix 75mg daily iso active lower GI bleed Hypertension - Continue holding BOLT MAKER amlodipine 10 mg daily Mood - Continue with BOLT MAKER bupropion 150 mg daily and lamotrigine 50 mg qan/25 mg at bedtime VTE Prophylaxis Holding plavix and aspirin due to active bleeding, sequential compression device and ambulate Discharge Plan Home or self-care upon discharge following resolution of GI bleed Consults GI Jovanny An 02/11/2023 10:30 Attestation statement: I was present with the medical student for the history, exam, and medical decision making documented. I have personally performed my own physical exam and medical decision making. I have verified and agree with (or, as indicated, have edited) the medical student's documentation. Kris Hernandez MD Internal Medicine PGY-1 Pager #[phone] 02/11/23 13:52 Attending Attestation The resident was present with the medical student for the history, exam, and medical decision making documented. I have personally performed my own physical exam and medical decision making on 02/11. I have verified and agree with (or have edited in underline) the combined medical student's and resident's documentation. Annia Machado MD 02/12/2023 17:10 * Huan Bender RN - 02/11/2023 0625 EDT FOUR EYES SKIN ASSESSMENT Four Eyes skin assessment was performed on admission to the unit by Huan Bender RN and Kwesi Huston RN. Patient has the following devices at the time of this assessment: none. Device related pressure injury present? No All skin intact verified by: Huan Bender RN. Last See Score: 20 Instructions: ??? Add LDA for any identified wounds ??? Add [place] image for any suspected PI or non surgical wounds ??? Order wound consult if suspected PI identified ? ? If See is < or = to 16, initiate Pressure Injury Prevention Bundle ([id number]). 02/11/2023 6:25 * Huan Bender RN - 02/11/2023 0619 EDT Patient complaining of weakness and dizzy when sitting or standing. Patient requesting more blood. Dr. Madeline Centeno notified. documented in this encounter H&P Notes * Norbert Stanford MD - 02/11/2023 1332 EDT Endoscopy Sedation for Procedure History & Physical Date: 02/11/2023 Time: 13:32 Location: [place] [id number] General Medicine Telemetry Unit Planned Procedure: Colonoscopy Chief Complaint/Indications for Procedure: Post-polypectomy bleeding History Previous Complication with Sedation and/or Anesthesia? No Allergies: Allergies Allergen Reactions ??? Other - See Comments ??? Lisinopril Swelling of tongue ??? Sulfa (Sulfonamide Antibiotics) Shortness Of Breath and Swelling ??? Cyclobenzaprine Other reaction(s): Unknown ??? Ibuprofen Swelling Other reaction(s): edema ??? Naproxen Sodium Swelling Other reaction(s): edema ??? Tramadol Other (See Comments) Other reaction(s): DIZZINESS Current Medications: Current Facility-Administered Medications Medication Route Frequency ??? buPROPion (WELLBUTRIN SR) SR tablet 150 mg oral DAILY ??? diphenhydrAMINE (BENADRYL) injection 25 mg intravenous Once PRN ??? sodium chloride 0.9 % (NS) infusion intravenous PRN Or ??? lactated ringers (LR) infusion intravenous PRN ??? lamoTRIgine (LAMICTAL) tablet 25 mg oral QHS ??? lamoTRIgine (LAMICTAL) tablet 50 mg oral DAILY ??? lidocaine (PF) 10 mg/mL (1 %) injection 2 mg intradermal PRN ??? lidocaine (PF) 10 mg/mL (1 %) injection 2 mg intradermal PRN ??? lidocaine (PF) 10 mg/mL (1 %) injection 2 mg intradermal PRN ??? ondansetron (PF) (ZOFRAN) injection 4 mg intravenous PRN ??? ondansetron (ZOFRAN-ODT) disintegrating tablet 4 mg oral Q4H PRN Or ??? ondansetron (PF) (ZOFRAN) injection 4 mg intravenous Q4H PRN ??? polyethylene glycol (GoLYTELY;NuLYTELY) suspension 4 L oral SEE ADMIN INSTRUCTIONS ??? sodium chloride 0.9 % (flush) flush 5 mL intravenous Q8H ??? sodium chloride 0.9 % (flush) flush 5 mL intravenous PRN Past Medical History: Past Medical History: Diagnosis Date ??? Abnormal stress test 04/20/2017 s/p JANET ??? Activity, other involving cardiorespiratory exercise 01/30/23- able to climb 2 FOS w/o SOB ??? Amblyopia per pt-left eye ??? Anemia 02/10/2023 ??? Anomaly, cardiac cardiac stents ??? Arrhythmia 01/30/23- currently has zio patch for palpitations, CP, and SOB ??? 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 Cerebral artery occlusion with cerebral infarction (HCC-CMS) 2018 01/30/23-Acute ischemic left MCA stroke. no [...] Hypertension 01/30/23- well controlled per pt ??? SC (myocardial infarction) ([facility]) (HCC) ([facility]) 2007 x2. 2008 & 2011. JANET x4 ??? Poor dentition 01/30/23- reports having 2 broken teeth ??? Rash 01/30/23- eczema on face ??? Seizures ([facility]) 2019 01/30/23- well controlled on Lamictal, thought to be due to high dose Wellbutrin. None since 2018 ??? Shortness of breath 01/30/23- currently has zio patch for palpitations, CP, and SOB Social History: Past Surgical History: Procedure Laterality Date ??? CARDIAC CATHERIZATION 12/2004 normal - [place]. [place] [facility] ??? COLONOSCOPY 12/2004 WNL - Dr. Turcios f/u 10 yrs ??? CORONARY ANGIOPLASTY WITH STENT PLACEMENT 2010 NSTEMI s/p JANET ??? FOOT SURGERY Right tendon surgery ??? RADICAL PROSTATECTOMY 12/2004 Laparoscopic radical prostatectomy, umbilical hernia repair - Dr. Encinas [facility] ??? SINUS SURGERY nasal / sinus surgery [...] as pertinent: Physical Exam Vital Signs: BP 140/78 Pulse 79 Temp 36.7 ??C (98.1 ??F) (Temporal) Resp 16 Ht 180.3 cm (71) Wt (!) 106.6 kg (235 lb) SpO2 98% BMI 32.78 kg/m?? Heart Examination: Cardiac Regularity: Regular Respiratory Examination: Respiratory Pattern: Regular Breath Sounds Right: Clear Breath Sounds Left: Clear Abdominal Examination: Soft, non-tender, bowel sounds normal, no masses, no organomegaly Additional physical exam related to the proposed procedure, patient activity, disease state and treatment as pertinent: Assessment Previous complications with sedation or anesthesia?: No Anesthesia Classification: ASA 2 Plan: Proceed with sedation for procedure Fasting Time: Date of Last Liquid: 02/11/23 Time of Last Liquid: 1000 Date of Last Solid: 02/09/23 Time of Last Solid: 2359 Patient Appropriate Candidate for Planned Sedation?: Yes NORBERT STANFORD MD 02/11/2023 13:32 * Dustin Hubbard MD - 02/10/2023 1540 EDT Hospital Medicine Admission History & Physical Service Date: 02/10/2023 Admit Date: N/A Primary Care Provider: Vel Santos Chief Complaint: rectal bleeding HPI Gloria Garcia is a 72 y.o. male with a PMHx of CAD (s/p PCI x4, most recently 10y ago) and prior CVA (~5y ago), HTN, anxiety, presenting for rectal bleeding. Recently underwent routine colonoscopy with polypectomy 02/[address] Corcoran. Removed 10mm flat polyp in the cecum with submucosal injection and snare resection as well as endoclip placement. Also noted to have diverticulosis and internal hemorrhoids. Initially post procedure course uncomplicatedthough did have mild constipation. Had hard painful BM yesterday morning then later that afternoon had a dark/black but soft stool. He was worried about post polyp bleed versus hemorrhoid. Later thatevening had add'l 2 black stools and went to [facility] ED where Hgb was stable and he was HD normal sodischarged home. Overnight proceeded to have further increased frequency of black BM's, states as many as 1/hr, causing dizziness/lightheadedness with minimal exertion. Ultimately reached out to GI provider who recommended ED eval. Patient denies fevers or chills. Has had diffuse whole body myalgias and mild upper/epigastric painthat improved after having some PO fluids in the ED. Had nausea on arrival, also improved. No hematemesis. Last PO intake was last night around 1999 and had no abdominal pain or nausea with food. Last BM was around 1200 today. BMs are not painful. Reports occasional IBU use - takes a couple times per week (600mg). +ASA 325mg daily for CAD and plavix (long-term Rx x10 yrs since stent, states that he was told to take full dose ASA not baby ASA after having CVA in 2018). Drinks 1 glass wine/night, no hx of withdrawal. Prior tobacco use, quit 10y ago. Has medical marijuana for pain, but rarely uses. Otherwise no substance use. Lives with in [facility]. 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 In the ED he was afebrile, HD stable/normal with normal HR and BP. Labs ie CMP and CBC were largelynormal aside from anemia to 11.5 (from hgb 16.6 on 01/14). Received 500cc NS. GI consulted re concern for bleeding from polypectomy site. He was admitted to medicine for medical mgmt of mild acute blood loss anemia due to presumed lower GI bleed with plan for ON colonoscopy prep and colonoscopy in the morning. He is feeling a little better overall but still quite dizzy with minimal exertion and very appreciative of RBC transfusion. Aware that GI planning for colonoscopy, has questions about prepbecause he reportedly did not tolerate golytely prep in the past due to nausea (last prep done withmiralax). Review of Systems A complete 10 point ROS was performed and pertinent positive and negative findings listed in HPI, otherwise negative. Past Medical History: Diagnosis Date ??? Abnormal stress test 04/20/2017 s/p JANET ??? Activity, other involving cardiorespiratory exercise 01/30/23- able to climb 2 FOS w/o SOB ??? Amblyopia per pt-left eye ??? Anemia 02/10/2023 ??? Anomaly, cardiac cardiac stents ??? Arrhythmia 01/30/23- currently has zio patch for palpitations, CP, and SOB ??? Cancer ([facility]) (HCC) prostates and skin cancer ??? Cerebral artery occlusion with cerebral infarction (HCC-CMS) 2018 01/30/23-Acute ischemic left MCA stroke. no [...] Hypertension 01/30/23- well controlled per pt ??? SC (myocardial infarction) ([facility]) (HCC) ([facility]) 2007 x2. 2008 & 2011. JANET x4 ??? Poor dentition 01/30/23- reports having 2 broken teeth ??? Rash 01/30/23- eczema on face ??? Seizures ([facility]) 2019 01/30/23- well controlled on Lamictal, thought to be due to high dose Wellbutrin. None since 2018 ??? Shortness of breath 01/30/23- currently has zio patch for palpitations, CP, and SOB Past Surgical History: Procedure Laterality Date ??? CARDIAC CATHERIZATION 12/2004 normal - [address]. [place] [facility] ??? COLONOSCOPY 12/2004 WNL - Dr. Turcios f/u 10 yrs ??? CORONARY ANGIOPLASTY WITH STENT PLACEMENT 2010 NSTEMI s/p JANET ??? FOOT SURGERY Right tendon surgery ??? RADICAL PROSTATECTOMY 12/2004 Laparoscopic radical prostatectomy, umbilical hernia repair - Dr. Encinas [facility] ??? SINUS SURGERY nasal / sinus surgery Social History Tobacco Use ??? Smoking status: Former ??? Smokeless tobacco: Never Substance Use Topics ??? Alcohol use: Yes Alcohol/week: 7.0 standard drinks Types: 7 Glasses of wine per week Family History Problem Relation Age of Onset [...] Neg Hx ??? Rectal Cancer Neg Hx Current Outpatient Medications Medication Sig ??? acetaminophen-codeine (TYLENOL #3) 300-30 mg per tablet Take 1 Tablet by mouth every 6 hours asneeded for Pain. Daily Max: 4 Tablets (Patient not taking: No sig reported) ??? amLODIPine (NORVASC) 10 mg tablet Take 1 Tablet by mouth daily for 90 days. ??? aspirin 325 mg tablet Take 325 mg by mouth daily. ??? azithromycin (ZITHROMAX) 250 mg tablet Take 2 tablets (500 mg) on day 1, followed by 1 tablet (250 mg) once daily on days 2 through 5. (Patient not taking: No sig reported) ??? blood glucose meter Glucose monitor,Sig: test once a day once a day ??? blood glucose test strips Brand: One Touch Ultra, test blood sugar once daily ??? buPROPion (WELLBUTRIN SR) 150 mg SR tablet Take 1 Tablet by mouth daily. ??? Cholecalciferol, Vitamin D3, 50 mcg capsule Take by mouth daily. ??? clopidogreL (PLAVIX) 75 mg tablet Take 1 Tablet by mouth daily. ??? DIABETIC SUPPLIES, MISCELLAN. MISC Syringe 3cc ??? econazole nitrate 1 % cream Apply 1 application topically 2 times daily as needed. (Patient nottaking: Reported on 02/02/2023) ??? erythromycin (ROMYCIN) 5 mg/gram (0.5 %) ophthalmic ointment Apply 1/4 strip (Patient not taking: Reported on 02/02/2023) ??? lamoTRIgine (LAMICTAL) 25 mg tablet 1 po a day for one week, then one po bid, then 2 po bid as directed , finally up to 3 pills bid (Patient taking differently: Take 25 mg by mouth 2 times daily.1 po a day for one week, then one po bid, then 2 po bid as directed , finally up to 3 pills bid) ? ? LANCETS & BLOOD GLUCOSE STRIPS [facility] test strips and lancets for glucose monitor , Sig: testonce a day test once a day ??? MEDICAL MARIJUANA (Patient not taking: Reported on 02/02/2023) ??? nitroGLYCERIN (NITROSTAT) 0.[address] 1 Tab under the tongue as needed. (Patient nottaking: Reported on 02/02/2023) ??? nystatin (MYCOSTATIN) ointment Apply 1 application topically 3 times daily as needed. (Patient not taking: Reported on 02/02/2023) ??? Xmniz-2-FCA-EPA-Fish Oil 1,000 (120-180) mg capsule Take 1,000 mg by mouth. ??? pantoprazole (PROTONIX) 40 mg tablet Take 1 Tablet by mouth daily for 360 days. ??? polyethylene glycol (MIRALAX) 17 gram/dose powder Instructions mailed once procedure scheduled. ??? testosterone cypionate (DEPO-TESTOSTERONE) 200 mg/mL injection Inject 1.25 mL into the muscle every 7 days for 112 days. Patient requests 2x 10ml vials Daily Max: 250 mg ??? ubidecarenone/vitamin E mixed (COQ10 SG 100 ORAL) Take by mouth daily. ??? zoster vaccine recombinant, PF, (SHINGRIX, PF,) IM Injection - vial GIVE ONE NOW, AND REPEAT IN2-6 MONTHS. (Patient not taking: Reported on 12/23/2021) ??? zoster vaccine recombinant, PF, (SHINGRIX, PF,) IM Injection - vial GIVE ONE NOW, AND REPEAT IN2-6 MONTHS. (Patient not taking: Reported on 12/23/2021) Allergies Allergen Reactions ??? Other - See Comments ??? Lisinopril Swelling of tongue ??? Sulfa (Sulfonamide Antibiotics) Shortness Of Breath and Swelling ??? Cyclobenzaprine Other reaction(s): Unknown ??? Ibuprofen Swelling Other reaction(s): edema ??? Naproxen Sodium Swelling Other reaction(s): edema ??? Tramadol Other (See Comments) Other reaction(s): DIZZINESS Objective Vitals Temp: [36.6 ??C (97.9 ??F)] , Heart Rate: [89 BPM] , Pulse: --, Resp: --, BP: (113)/(78) , SpO2: [100 %] , Numeric Pain Level (Scale 1-10): 4 Weight: Weight : (!) 106.6 kg (235 lb) Body mass index is 32.78 kg/m??. Physical Exam Gen: comfortable in room, NAD HEENT: NCAT. Mask in place. Pulm: Comfortable on RA. CTA bilaterally, no wheezing/crackles/rales CV: RRR, no MRG Abd: Obese. Mildly tender to light palpation BL R and L upper quadrants, no rebound or guarding Ext: WWP, trace LE edema b/l. Skin: Warm, dry, no rashes or lesions appreciated on exposed skin Neuro: Alert and oriented to provider Psych: Appears euthymic, calm Labs I have personally reviewed Recent Labs 02/10/23 1403 WBC 5.39 RBC 3.54* HGB 11.5* HCT 33.4* MCV 94 MCH 32.5 MCHC 34.4 PLT 226 NEUTROABS 2.71 Recent Labs 02/10/23 1403 NA 137 K 4.4 CL 104 CO2 23 BUN 24 CREATININE 1.13 CALCIUM 8.1* LABALBU 3.7 Recent Labs 02/10/23 1403 TBIL 0.7 ALKPHOS 43 AST 32 ALT 32 Imaging No new imaging. Assessment Gloria Garcia is a 72 y.o. male with a PMHx significant for hx of CAD (hx PCI x4, last occurred about 10 years ago), CVA (no neuro deficits, occurred 5 yrs ago), HTN, anxiety who presented to the ED with 1 day of progressive dark bowel movements after recent (02/02/23) colonoscopy with polypectomy.Admitted for medical mgmt of acute blood loss anemia symptomatic by dizziness. GI consulted and will advise re bowel prep for procedure - likely will under colonoscopy tomorrow. Plan Acute anemia in the setting of rectal bleeding Concern for lower GI bleeding s/p recent polypectomy given temporal association with procedure, also on ddx is hemorrhoidal bleeding given hx of internal hemorrhoids. - GI consulted, appreciate recs - Clear liquid diet at this time, NPO at midnight - Given that patient is symptomatic with downtrending Hgb, will plan for transfusion at this time. Ordered for 1u pRBC and post transfusion CBC - CBC tonight (approx 2000) and again daily - Transfusion < 8 if symptomatic Chronic/stable: Hx CAD, CVA: holding bell captain asa 325mg and plavix 75mg daily iso active lower GI bleed -> would restart plavix in AM and only hold part of DAPT, may require heme/cardiology assistance depending on colonoscopy findings for further guidance HTN: holding bell captain amlodipine 10mg daily Mood: cw bell captain wellbutrin 150mg daily and lamictal 50mg qam/25mg at bedtime VTE Prophylaxis Seqential Compression Device and Ambulate Code: Full Code Discharge Plan Home or self care anticipated with resolution of lower GI bleed Consults GI Admission status Inpatient admission due to anticipated duration of hospitalization is two midnights or greater due to acute anemia. IGOR GOVEA MD 02/10/2023 17:00 Attending Attestation I have interviewed and examined the patient. I personally reviewed laboratories studies, radiographic studies, ECG, and prior records. I discussed the case with: Drs. Govea and Ezekiel ( Residents)I agree with and edited (in purple) the findings and plan of care as documented in the note above. Dustin Hubbard MD 02/10/2023 21:06 documented in this encounter Consult Notes * Hattie Stein MD - 02/10/2023 1640 EDT Images from the original note were not included. INITIAL GI CONSULT NOTE: Reason for Consultation/Chief Complaint: post-polypectomy bleeding Attending Physician: Chepe Eid MD;F* Admit date: 02/10/2023 Assessment/Plan: Gloria Garcia is a 72 y.o. male with a PMH of Seizures, anxiety, TIA, CAD with PCI 2007 (TTE 2017EF 60-65%), HLD, MDD, CVA (12/2022 w/o deficits) now presenting with BRBPR. Patient underwent colonoscopy 02/02/2023 where 10 mm flat polyp was removed with EMR in the cecum, 3 mm polyp in the ascendingcolon. Patient likely presenting with post polypectomy bleeding, will likely need colonoscopic inter vention and therapeutics. Recommendations: 1. Please order SuPrep, link below (6PM and 6AM) for instructions 2. Patient may benefit from Zofran during prep 3. Plan for colonoscopy pending anesthesia availability 4. Please maintain adequate IV access 5. If patient develops hemodynamically significant bleeding and/or anemia, would recommend stabilization in the ICU. [email or web address]?[email or web address]=&esrc=s&source=web&cd=&cad=[email or web address] [email or web address] Case discussed with GI attending Dr. Stein, who agrees with the above assessment and plan. Attending addendum to follow. GI team to follow. Please feel free to call the GI Consult pager if there is an acute change in the patient's clinical status or if you require additional assistance/clarification. HPI: Gloria Garcia is a 72 y.o. male with PMH of Seizures, anxiety, TIA, CAD with PCI 2007 (TTE 2017 EF 60-65%), HLD, MDD, CVA (12/2022 w/o deficits) now presenting with BRBPR Patient reports he initially did well following his colonoscopy, however over the last 48 hours he developed bright red blood per rectum. The blood was described as maroon in color, almost black. He states this occurred after he pushed a large, firm bowel movement yesterday. Since then he has hadroughly 12- 13 bloody bowel movements daily. He has had some presyncopal symptoms as well as some mild abdominal discomfort. He denies hematemesis, chest pain, shortness of breath. Patient reports he has had previous colonoscopies in the past. Patient also reports having difficulty with the colonoscopy prep and would prefer to try something else in order to provide adequate visualization of his colon. Vitals with temperature 36.6, heart rate 89, blood pressure 113/78, 100% on room air. Admission labs showed sodium 137, creatinine 1.13, ALT 32, AST 32, total bilirubin 0.7, total alk phos 43, white blood cell count 5.39, hemoglobin 11.5 from 16.6 01/14/2023, platelets 226. Patient was given 500 cc of normal saline. Drinks 1 glass of red wine daily, former smoker, no recreational drug use, no family history of colon cancer. Last colonoscopy 02/02/23: Diagnosis 10 mm flat polyp in the cecum. Polypectomy performed with EMR with submucosal injection and snare resection using forced coag 2 settings. One endoclip placed. 3 mm flat elevated polyp in the ascending colon. Polypectomy performed with cold biopsy forcep. Diverticulosis in the sigmoid colon. Prep was fair to inadequate. internal hemorrhoids. ?? Recommendations Follow biopsy results. Repeat colonoscopy in 1 year (secondary to fair to inadequate prep). Recommend better prep for future procedures (not Miralax) ROS: Completed ROS performed except as discussed in HPI, all systems reviewed and negative. Past Medical History: Diagnosis Date ??? Abnormal stress test 04/20/2017 s/p JANET ??? Activity, other involving cardiorespiratory exercise 01/30/23- able to climb 2 FOS w/o SOB ??? Amblyopia per pt-left eye ??? Anemia 02/10/2023 ??? Anomaly, cardiac cardiac stents ??? Arrhythmia 01/30/23- currently has zio patch for palpitations, CP, and SOB ??? Cancer ([facility]) ([facility]) prostates and skin cancer ??? Cerebral artery occlusion with cerebral infarction ([facility]) 2018 01/30/23-Acute ischemic left MCA [...] Hypertension 01/30/23- well controlled per pt ??? SC (myocardial infarction) ([facility]) (HCC) ([facility]) 2007 x2. 2008 & 2011. JANET x4 ??? Poor dentition 01/30/23- reports having 2 broken teeth ??? Rash 01/30/23- eczema on face ??? Seizures ([facility]) 2019 01/30/23- well controlled on Lamictal, thought to be due to high dose Wellbutrin. None since 2018 ??? Shortness of breath 01/30/23- currently has zio patch for palpitations, CP, and SOB Past Surgical History: Procedure Laterality Date ??? CARDIAC CATHERIZATION 12/2004 normal - [address] Evans [facility] ??? COLONOSCOPY 12/2004 WNL - Dr. Turcios f/u 10 yrs ??? CORONARY ANGIOPLASTY WITH STENT PLACEMENT 2010 NSTEMI s/p JANET ??? FOOT SURGERY Right tendon surgery ??? RADICAL PROSTATECTOMY 12/2004 Laparoscopic radical prostatectomy, umbilical hernia repair - Dr. Encinas [facility] ??? SINUS SURGERY nasal / sinus surgery Current Facility-Administered Medications Medication Dose Route Frequency Provider Last Rate Last Admin ??? [START ON 02/11/2023] buPROPion (WELLBUTRIN SR) SR tablet 150 mg 150 mg oral DAILY Linda Falcon MD ??? [START ON 02/11/2023] lactated ringers (LR) infusion 1,000 mL intravenous CONTINUOUS Igor Govea MD ??? lamoTRIgine (LAMICTAL) tablet 25 mg 25 mg oral QHS Igor Govea MD ??? [START ON 02/11/2023] lamoTRIgine (LAMICTAL) tablet 50 mg 50 mg oral DAILY Igor Govea MD ??? lidocaine (PF) 10 mg/mL (1 %) injection 2 mg 2 mg intradermal PRN Linda Falcon MD Current Outpatient Medications Medication Sig Dispense Refill ??? acetaminophen-codeine (TYLENOL #3) 300-30 mg per tablet Take 1 Tablet by mouth every 6 hours asneeded for Pain. Daily Max: 4 Tablets (Patient not taking: No sig reported) 10 Tablet 0 ??? amLODIPine (NORVASC) 10 mg tablet Take 1 Tablet by mouth daily for 90 days. 90 Tablet 3 ??? aspirin 325 mg tablet Take 325 mg by mouth daily. ??? azithromycin (ZITHROMAX) 250 mg tablet Take 2 tablets (500 mg) on day 1, followed by 1 tablet (250 mg) once daily on days 2 through 5. (Patient not taking: No sig reported) 6 Tablet 0 ??? blood glucose meter Glucose monitor,Sig: test once a day once a day ??? blood glucose test strips Brand: One Touch Ultra, test blood sugar once daily 100 Each 3 ??? buPROPion (WELLBUTRIN SR) 150 mg SR tablet Take 1 Tablet by mouth daily. 90 Tablet 3 ??? Cholecalciferol, Vitamin D3, 50 mcg capsule Take by mouth daily. ??? clopidogreL (PLAVIX) 75 mg tablet Take 1 Tablet by mouth daily. 90 Tablet 3 ??? DIABETIC SUPPLIES, MISCELLAN. MISC Syringe 3cc ??? econazole nitrate 1 % cream Apply 1 application topically 2 times daily as needed. (Patient nottaking: Reported on 02/02/2023) ??? erythromycin (ROMYCIN) 5 mg/gram (0.5 %) ophthalmic ointment Apply 1/4 strip (Patient not taking: Reported on 02/02/2023) 3.5 g 0 ??? lamoTRIgine (LAMICTAL) 25 mg tablet 1 po a day for one week, then one po bid, then 2 po bid as directed , finally up to 3 pills bid (Patient taking differently: Take 25 mg by mouth 2 times daily.1 po a day for one week, then one po bid, then 2 po bid as directed , finally up to 3 pills bid) 180 Tablet 5 ? ? LANCETS & BLOOD GLUCOSE STRIPS MISC test strips and lancets for glucose monitor , Sig: testonce a day test once a day ??? MEDICAL MARIJUANA (Patient not taking: Reported on 02/02/2023) ??? nitroGLYCERIN (NITROSTAT) 0.[address] 1 Tab under the tongue as needed. (Patient nottaking: Reported on 02/02/2023) ??? nystatin (MYCOSTATIN) ointment Apply 1 application topically 3 times daily as needed. (Patient not taking: Reported on 02/02/2023) ??? Aukam-2-QOZ-EPA-Fish Oil 1,000 (120-180) mg capsule Take 1,000 mg by mouth. ??? pantoprazole (PROTONIX) 40 mg tablet Take 1 Tablet by mouth daily for 360 days. 90 Tablet 3 ??? polyethylene glycol (MIRALAX) 17 gram/dose powder Instructions mailed once procedure scheduled.238 g 0 ??? testosterone cypionate (DEPO-TESTOSTERONE) 200 mg/mL injection Inject 1.25 mL into the muscle every 7 days for 112 days. Patient requests 2x 10ml vials Daily Max: 250 mg 20 mL 3 ??? ubidecarenone/vitamin E mixed (COQ10 SG 100 ORAL) Take by mouth daily. ??? zoster vaccine recombinant, PF, (SHINGRIX, PF,) IM Injection - vial GIVE ONE NOW, AND REPEAT IN2-6 MONTHS. (Patient not taking: Reported on 12/23/2021) 1 Each 1 ??? zoster vaccine recombinant, PF, (SHINGRIX, PF,) IM Injection - vial GIVE ONE NOW, AND REPEAT IN2-6 MONTHS. (Patient not taking: Reported on 12/23/2021) 1 Each 1 Allergies Allergen Reactions ??? Other - See Comments ??? Lisinopril Swelling of tongue ??? Sulfa (Sulfonamide Antibiotics) Shortness Of Breath and Swelling ??? Cyclobenzaprine Other reaction(s): Unknown ??? Ibuprofen Swelling Other reaction(s): edema ??? Naproxen Sodium Swelling Other reaction(s): edema ??? Tramadol Other (See Comments) Other reaction(s): DIZZINESS Family History Problem Relation Age of Onset [...] Neg Hx ??? Rectal Cancer Neg Hx Social History Socioeconomic History ??? Marital status: Spouse name: Not on file ??? Number of children: Not on file ??? Years of education: Not on file ??? Highest education level: Not on file Occupational History ??? Not on file Tobacco Use ??? Smoking status: Former ??? Smokeless tobacco: Never Substance and Sexual Activity ??? Alcohol use: Yes Alcohol/week: 7.0 standard drinks Types: 7 Glasses of wine per week ??? Drug use: Yes Types: Marijuana Comment: medical marijuana ??? Sexual activity: Not on file Other Topics Concern ??? Not on file Social History Narrative ??? Not on file Social Determinants of Health Financial Resource Strain: Not on file Food Insecurity: Not on file Transportation Needs: Not on file Physical Activity: Not on file Stress: Not on file Social Connections: Not on file Housing Stability: Not on file Physical Exam: Last Vitals: BP 113/78 (BP Cuff Location: Left arm, BP Patient Position: Sitting) Temp 36.6 ??C (97.9 ??F) (Temporal) Ht 180.3 cm (71) Wt (!) 106.6 kg (235 lb) SpO2 100% BMI 32.78 kg/m?? Vitals: 02/10/23 1213 02/10/23 1215 BP: 113/78 BP Cuff Location: Left arm BP Patient Position: Sitting Temp: 36.6 ??C (97.9 ??F) TempSrc: Temporal SpO2: 100% Weight: (!) 106.6 kg (235 lb) Height: 180.3 cm (71) General appearance: Laying comfortably in bed in no acute distress HEENT: Normocephalic, atraumatic. No scleral icterus Pulm: Normal respiratory effort. CV: Regular rate and rhythm. Abdomen: Nondistended. Nontender to palpation without rebound or guarding. Skin: No jaundice Extremities: No edema Neurologic: A&Ox4 Labs: Data reviewed. I have reviewed all lab results Imaging: No orders to display Portions of this document may have been prepared with speech recognition software or keyboard oracle data warehouse developer techniques. Minor irregularities or keyboarding misprints may be present. Recommendations at top of note Norbert Stanford M.D. Gastroenterology Fellow Attestation statement: I performed or was present during the purcell or critical portions of the visit and participated in the management of the patient. I agree with the findings and plan of care documented in the resident's/fellow's note. Mr. Garcia is a 72yo man with KENDALL, anxiety, seizure disorder,HLD, CAD s/p SPINE SPECIALIST (2007), presenting with BRBPR after recent colonoscopy and polyp removal. He endorses doing well for 1 week s/p colonoscopy, followed by the passage of 10-12 loose, maroon-colored stools associated with mild dizziness and abdominal discomfort. On arrival, VS were stable, abdomen benign, and BRBPR documented. Blood work demonstrated Hgb of 11 (decreased from 16 one month ago). Mr. Garcia's symptoms are most consistent with postpolypectomy bleed (althoug the timeline is a littlelong; usually < 1 week). Postpolypectomy bleed is a condition in which bleeding occurs ~ 1 week after snare cautery polypectomy, as the eschar at the base of the removed polyp sloughs. Management includes repeat colonoscopy with control of bleeding (epinephrine injection, clip placement). That said, cannot completely rule out the possibility of diverticular or hemorrhoidal bleeding. Agree withrecommendation for colonoscopy. documented in this encounter ED Notes * Maxi Montero RN - 02/10/[id number] EDT The patient completed the first series of bowel prep. The patient continues to fell light headed. The patient did initially ambulate to the bathroom but a wheelchair was used for additional bathroom requirements for safety. * Sunshine Torres PA-C - 02/10/2023 1353 EDT Emergency Department Visit Medical Decision Making An EKG was obtained and independently interpreted. Laboratory data was reviewed. Medical Decision Making Gloria Garcia is a 72 y.o. male with past medical history significant for hypertension, hyperlipidemia, coronary artery disease, status post colonoscopy 1 week ago who presents to the ED for evaluation of rectal bleeding. Patient arrives with stable vital signs, is seated supine in the stretcher in no acute distress. Hedoes note lightheadedness with positional changes. Abdomen is soft and nontender Patient is spoken with GI prior to arrival, who notes that he likely will require admission to medicine with a colonoscopy if he continues to have rectal bleeding Plan for 2 IVs, type and screen, CBC, CMP, and rehydration Hgb is 11.5, down from 16 in December (unclear what his Hbg was yesterday but family was told it was normal.) EKG sinus rhythm without ischemic changes D/w GI who plan to scope the patient either today or tomorrow depending on bleeding Pt was admitted to Medicine for further monitoring pending GI evaluation Rectal bleeding: acute illness or injury Amount and/or Complexity of Data Reviewed Independent Historian: spouse External Data Reviewed: notes. Labs: ordered. ECG/medicine tests: ordered. Risk Decision regarding hospitalization. Final diagnoses: Rectal bleeding Disposition: Admitted Chief complaint: Chief Complaint Patient presents with ??? Rectal Bleeding Pt arrives to triage after c/o ~ 24 hours rectal bleeding. Had colonoscopy last Thursday, spoke w/ Juan Carlosast night who told him to come in. Endorses nausea/dizziness. HPI Gloria Garcia is a 72 y.o. male with past medical history significant for hypertension, hyperlipidemia, coronary artery disease, status post colonoscopy 1 week ago who presents to the ED for evaluation of rectal bleeding. Patient states his colonoscopy went well, 2 polyps were removed. Yesterday he felt constipated and had a very hard bowel movement that took significant pushing to evacuate. Around 2 PM he states that he had a bowel movement that was large volume, dark and bloody, mixed with stool. He had a repeat bowel movement that was similar around 4 PM. He was seen at [facility] yesterday, had a H&H that was unremarkable, and was discharged with plan to continue to monitor his symptoms. He reached out to GI, and was encouraged to come to the ED for further evaluation with any persistent symptoms. Despite monitoring, Gloria reports he has had approximately 13 additional bloody bowel movements, filling the toilet with blood, and has developed lightheadedness and dizziness, as well as a near syncopal episodes several times at home and in the emergency department. History was provided by: patient, , GI Records reviewed include: Colonoscopy procedure report 02/02/2023 Patient's pertinent PMH, FH, SH were reviewed and edited as necessary. Nursing notes reviewed. A medical screening exam was performed. Physical Exam BP 93/81 (BP Cuff Location: Left arm, BP Patient Position: Sitting) Pulse 75 Temp 36.5 ??C (97.7 ??F) (Oral) Resp 16 Ht 180.3 cm (71) Wt (!) 106.6 kg (235 lb) SpO2 93% BMI 32.78 kg/m?? Physical Exam Vitals and nursing note reviewed. Constitutional: Appearance: Normal appearance. He is well-developed. Comments: Elevated BMI HENT: Head: Normocephalic and atraumatic. Eyes: Comments: Conjunctive a pale Cardiovascular: Rate and Rhythm: Normal rate and regular rhythm. Pulses: Normal pulses. Pulmonary: Effort: Pulmonary effort is normal. No respiratory distress. Abdominal: Tenderness: There is abdominal tenderness. Comments: Generalized tenderness to palpation, abdomen is soft, nondistended Musculoskeletal: General: Normal range of motion. Cervical back: Normal range of motion. Skin: General: Skin is warm and dry. Neurological: Mental Status: He is alert and oriented to person, place, and time. Psychiatric: Mood and Affect: Mood normal. Procedures Procedures Associated attestation - Nayan Yuen MD - 02/13/2023 0830 EDT I, Nayan Yuen MD, performed a history and exam of this patient and discussed the case with the Physician Civil Cad Designer. I have reviewed and may have edited this note, as appropriate. The signeddocumentation is consistent with my findings, assessment and plan. I fully participated in the medical decision making. Ongoing bleeding, with now a hemoglobin drop to 11.6, symptomatic with orthostatic dizziness. Admitted to medicine, after conversation with GI by Faustina Torres. (Edits to the PA's note will be in blue font.) * Hilary Menodza RN - 02/10/2023 1215 EDT Chief Complaint Patient presents with ??? Rectal Bleeding Pt arrives to triage after c/o ~ 24 hours rectal bleeding. Had colonoscopy last Thursday, spoke w/ Juan Carlosast night who told him to come in. Endorses nausea/dizziness. documented in this encounter Miscellaneous Notes * Plan of Care - Tianna Green RN - 02/12/2023 0811 EDT Data: VSS on RA (bp soft 90's/80s). No pain. No nausea. Regular diet. OOB independently. Skin intact. Action: Meds given per dec. No PRNs required. IV pulled for d/c. Reviewed paperwork with patient and family. Response: Tolerated regular diet. Tolerating activity with minimal weakness. Discharge home today. TIANNA GREEN RN 02/12/2023 8:11 Problem: HEMODYNAMIC STATUS Goal: Patient Has Stable VS & Fluid Balance Outcome: Ongoing Problem: NUTRITION Description: Altered Nutrition and Hydration Goal: Patient maintains adequate hydration Outcome: Ongoing Problem: High Fall Risk: Goal: Patient Will Remain Free from Fall-Related Injury Outcome: Ongoing * Plan of Care - Gigi Cedeño RN - 02/12/2023 0336 EDT Problem: High Fall Risk: Goal: Patient Will Remain Free from Fall-Related Injury Outcome: Ongoing Problem: Daily Care Plan Goals Goal: Care Plan Documentation Outcome: Ongoing Data: Patient A&Ox3, VSS. No bloody stools or GI upset noted this shift. Continues on clear liquid diet. Continues on tele showing NSR. Action: medications administered per emar, clustered care to promote rest. Response: patient spent most of shift resting in room. No bloody stools this shift, denies GI upsetalong with dizziness. See flowsheet for all assessments. Gigi Cedeño RN 02/12/2023 3:36 * Plan of Care - Julita Foss RN - 02/11/2023 1942 EDT Problem: Daily Care Plan Goals Goal: Care Plan Documentation Flowsheets (Taken 02/11/2023 0900) Area of Focus: Circulatory Status Goal This Shift: Patient will receive blood and remain hemodynamically stable Note: Data: Assumed care of patient at 0700. A&Ox3. Patient here with GI bleed. NPO. Continuous fluids running. Patient reporting extreme dizziness this morning when going from laying to sitting. LargeBP drop when transitioned from laying to sitting- provider notified and aware. Had been having bloody bowel movements overnight with the last one at 0600. Action: Communicated with care team throughout day. 1 unit of packed red blood cells administered this shift. Telemetry monitored- normal sinus rhythm. Vital signs monitored. Patient had colonoscopy completed. Transitioned to clear liquid diet after. Response: One bowel movement today just before colonoscopy which the patient reported was bloody but more clear than previous bowel movements. No bowel movements this shift after procedure. Vital signs stable since arrival back to unit. Patient states dizziness has improved and is tolerating ambulation to and from bathroom with contact guard assist. Tolerating clear liquids well. JULITA FOSS RN 02/11/2023 19:42 * Plan of Care - Huan Bender RN - 02/11/2023 0504 EDT Problem: Daily Care Plan Goals Goal: Care Plan Documentation Outcome: Ongoing Data: Upon arrival to unit last night from the ER, patient was going to the bathroom constantly. Stool was dark red in color. Patient was complaining of weakness and a feeling of impending doom. Action: MD was notified immediately and a unit of blood was transfused. Response: Patient has only had one BM this morning with stool ink maker red. Will continue to monitor. HUAN BENDER RN 02/11/2023 5:54 documented in this encounter Plan of Treatment Upcoming Encounters Date Type Department Care Team (Late st Contact Info) Description 10/04/2024 9:50 EST Appointment [facility] Pre-Surgical Testing [address] [place] [address] [phone] 10/14/2024 11:00 EST Hospital Encounter [facility] [place] [address] [place] [address] [phone] Clemente Gerardo MD [address] [place] [address] [phone] 10/14/2024 11:00 EST - 10/14/2024 14:35 EST Surgery [facility] [place] [address] [place] [address] [phone] Clemente Gerardo MD [address] [place] [address] [phone] Implantation of inflatable penile prosthesis [75388 (CPT??)] 10/17/2024 9:00 EST Telemedicine [facility] Urology [address] [phone] Nurse Call, [facility] 10/31/2024 15:00 EST Post-op Visit [address] [phone] Clemente Gerardo MD [address] [place] [address] [phone] 12/06/2024 10:15 EST Office Visit [facility] [address] [place] [address] Spike Puentes MD [address] [place] [phone] Pending Results Name Type Priority Associated Diagnoses Date /Time COLONOSCOPY GI Routine 02/11/2023 13 :53 EDT Scheduled Orders Name Type Priority Associated Diagnoses Orde r Schedule COLONOSCOPY GI Routine One Time for 1 Occurrences starting 02/11/2023 until 02/11/2023 Scheduled Procedures Name Priority Associated Diagnoses Date/Ti me INSERTION, PENILE PROSTHESIS, INFLATABLE, 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 10/14/2024 11:00 EST Scheduled Referrals Name Type Priority Associated Diagnoses Order Schedule AMB CONS/FOLLOW UP PRIMARY CARE PHYSICIAN - [facility] Outpatient Referral Routine/Next Available Rectal bleeding Acute blood loss anemia Expected: 02/19/2023 (Approximate), Expires: 02/13/2024 documented as of this encounter Procedures Procedure Name Priority Date/Time Associated Diagnosis Comments ECG REPORT - SCANNED 02/18/2023 13:04 EDT COLONOSCOPY PROCEDURE Routine 02/14/2023 10:06 EDT COMPLETE BLOOD COUNT Routine 02/12/2023 10:08 EDT BASIC METABOLIC PANEL (BMP) Routine 02/12/2023 10:08 EDT COMPLETE BLOOD COUNT Routine 02/11/2023 18:44 EDT HGB Routine 02/11/2023 12:15 EDT TRANSFUSE RED BLOOD CELLS Routine 02/11/2023 9:32 EDT COMPLETE BLOOD COUNT Routine 02/11/2023 8:41 EDT BASIC METABOLIC PANEL (BMP) Routine 02/11/2023 8:41 EDT COMPLETE BLOOD COUNT STAT 02/11/2023 1:53 EDT TRANSFUSE RED BLOOD CELLS Routine 02/10/2023 22:00 EDT COMPLETE BLOOD COUNT Timed 02/10/2023 21:11 EDT PREPARE RED BLOOD CELLS Routine 02/10/2023 20:57 EDT PREPARE RED BLOOD CELLS STAT 02/10/2023 20:57 EDT TRANSFUSE RED BLOOD CELLS Routine 02/10/2023 17:52 EDT PATIENT RE-TYPE Routine 02/10/2023 16:49 EDT PREPARE RED BLOOD CELLS Routine 02/10/2023 15:54 EDT ECG REPORT - SCANNED 02/10/2023 14:18 EDT EKG 12-LEAD STAT 02/10/2023 14:11 EDT HOLD BLUE TOP Routine 02/10/2023 14:04 EDT COMPLETE BLOOD COUNT AND DIFFERENTIAL STAT 02/10/2023 14:03 EDT TYPE AND SCREEN STAT 02/10/2023 14:03 EDT HEMOGLOBIN A1C Add-On 02/10/2023 14:03 EDT COMPREHENSIVE METABOLIC PANEL (CMP) STAT 02/10/2023 14:03 EDT documented in this encounter Results * ECG REPORT - SCANNED (02/18/2023 13:04 EDT) 02/18/2023 13:0 4 EDT Scan 2 Bundle Shaker PROCEDURE/MINOR BROOKE GICAL ORDERABLES * COLONOSCOPY PROCEDURE (02/14/2023 10:06 EDT) Anatomical [...] None Medications MAC Anesthesia See Anesthesia Record [place] Bowel Prep Right Colon: 2 ? Transverse [...] MD GI PROCEDURE ORDERA BLES * (ABNORMAL) COMPLETE BLOOD COUNT (02/12/2023 10:08 EDT) WBC 6.05 4.00 - 10.40 K/cmm 02/12/2023 11:46 [facility] RBC 2.66(L) 4.36 - 5.78 M/cmm 02/12/2023 11:46 [facility] Hemoglobin 8.4(L) 13.8 - 17.3 gm/dL 02/12/2023 11:46 [facility] HCT 23.9(L) 39.5 - 50.2 % 02/12/2023 11:46 [facility] MCV 90 81 - 95 fl 02/12/2023 11:46 [facility] MCH 31.6 27.6 - 33.0 pg 02/12/2023 11:46 [facility] MCHC 35.1 32.8 - 36.4 gm/dL 02/12/2023 11:46 [facility] RDW-CV 15.2(H) <14.2 % 02/12/2023 11:46 [facility] RDW-SD 50.3(H) <46.0 fl 02/12/2023 11:46 [facility] PLT 148 141 - 377 K/cmm 02/12/2023 11:46 [facility] MPV 10.0 9.5 - 12.7 fl 02/12/2023 11:46 [facility] Blood VENOUS BLOOD / Unknown Venipuncture / Unknown 02/12/2023 10:08 EDT 02/12/2023 11:00 EDT Kris Hernandez HEMATOLOGY & PF4 ORD ERABLES [facility] [address] [place] [address] * (ABNORMAL) BASIC METABOLIC PANEL (BMP) (02/12/2023 10:08 EDT) Pathologist [facility] Sodium 137 136 - 145 mmol/L 02/12/2023 11:42 T [facility] Potassium 4.2 3.5 - 5.0 mmol/L 02/12/2023 11:42 [facility] Chloride 106 96 - 110 mmol/L 02/12/2023 11:42 [facility] CO2 Total 26 22 - 32 mmol/L 02/12/2023 11:42 [facility] Anion Gap 5 5 - 14 02/12/2023 11:42 [facility] Glucose 84 70 - 100 mg/dL 02/12/2023 11:42 [facility] Calcium 8.3(L) 8.5 - 10.5 mg/dL 02/12/2023 11:42 [facility] BUN 11 10 - 26 mg/dL 02/12/2023 11:42 [facility] Creatinine 0.94 0.66 - 1.25 mg/dL 02/12/2023 11:42 [facility] eGFR 87 >60 mL/min/1.73 m2 02/12/2023 11:42 [facility] Blood VENOUS BLOOD / Unknown Venipuncture / Unknown 02/12/2023 10:08 EDT 02/12/2023 11:13 EDT Dustin Hubbard MD CHEMISTRY & BLOO D GAS ORDERABLES Performing Organization Address City/State/[facility] Co de Phone Number [facility] [address] [place] [phone] * (ABNORMAL) COMPLETE BLOOD COUNT (02/11/2023 18:44 EDT) Pathologist [facility] WBC 7.20 4.00 - 10.40 K/cmm 02/11/2023 19:03 [facility] RBC 2.73(L) 4.36 - 5.78 M/cmm 02/11/2023 19:03 [facility] Hemoglobin 8.7(L) 13.8 - 17.3 gm/dL 02/11/2023 19:03 [facility] HCT 24.8(L) 39.5 - 50.2 % 02/11/2023 19:03 [facility] MCV 91 81 - 95 fl 02/11/2023 19:03 [facility] MCH 31.9 27.6 - 33.0 pg 02/11/2023 19:03 [facility] MCHC 35.1 32.8 - 36.4 gm/dL 02/11/2023 19:03 [facility] RDW-CV 15.5(H) <14.2 % 02/11/2023 19:03 [facility] RDW-SD 51.0(H) <46.0 fl 02/11/2023 19:03 [facility] PLT 147 141 - 377 K/cmm 02/11/2023 19:03 [facility] MPV 9.6 9.5 - 12.7 fl 02/11/2023 19:03 [facility] Blood VENOUS BLOOD / Unknown Venipuncture / Unknown 02/11/2023 18:44 EDT 02/11/2023 18:51 EDT Kris Hernandez HEMATOLOGY & PF4 ORD ERABLES Performing Organization Address City/[facility]/ZIP Co de Phone Number [facility] [address] [place] [address] * (ABNORMAL) HGB (02/11/2023 12:15 EDT) Hemoglobin 9.7(L) 13.8 - 17.3 gm/dL 02/11/2023 13:01 EDT [facility] Blood VENOUS BLOOD / Unknown Venipuncture / Unknown 02/11/2023 12:15 EDT 02/11/2023 12:53 EDT Kris Hernandez HEMATOLOGY & PF4 ORD ERABLES [facility] [address] [place] [address] * TRANSFUSE RED BLOOD CELLS (02/11/2023 11:06 EDT) Blood Madeline Centeno MD NURSING TREATMENT - BLOOD ADMINISTRATION * TRANSFUSE RED BLOOD CELLS (02/11/2023 11:06 EDT) Blood Madeline Centeno MD NURSING TREATMENT - BLOOD ADMINISTRATION * (ABNORMAL) COMPLETE BLOOD COUNT (02/11/2023 8:41 EDT) WBC 7.25 4.00 - 10.40 K/cmm 02/11/2023 9:42 [facility] RBC 2.97(L) 4.36 - 5.78 M/cmm 02/11/2023 9:42 [facility] Hemoglobin 9.5(L) 13.8 - 17.3 gm/dL 02/11/2023 9:42 [facility] HCT 26.9(L) 39.5 - 50.2 % 02/11/2023 9:42 [facility] MCV 91 81 - 95 fl 02/11/2023 9:42 [facility] MCH 32.0 27.6 - 33.0 pg 02/11/2023 9:42 [facility] MCHC 35.3 32.8 - 36.4 gm/dL 02/11/2023 9:42 [facility] RDW-CV 14.9(H) <14.2 % 02/11/2023 9:42 [facility] RDW-SD 49.7(H) <46.0 fl 02/11/2023 9:42 [facility] PLT 190 141 - 377 K/cmm 02/11/2023 9:42 [facility] MPV 10.1 9.5 - 12.7 fl 02/11/2023 9:42 [facility] Blood VENOUS BLOOD / Unknown Venipuncture / Unknown 02/11/2023 8:41 EDT 02/11/2023 9:35 EDT Madeline Centeno MD HEMATOLOGY & PF4 ORD ERABLES Performing Organization Address City/[facility]/ZIP Co de Phone Number [facility] [address] [place] [address] * (ABNORMAL) BASIC METABOLIC PANEL (BMP) (02/11/2023 8:41 EDT) Sodium 140 136 - 145 mmol/L 02/11/2023 10:14 EDT [facility] Potassium 4.1 3.5 - 5.0 mmol/L 02/11/2023 10:14 T [facility] Chloride 105 96 - 110 mmol/L 02/11/2023 10:14 T [facility] CO2 Total 22 22 - 32 mmol/L 02/11/2023 10:14 [facility] Anion Gap 13 5 - 14 02/11/2023 10:14 [facility] Glucose 115(H) 70 - 100 mg/dL 02/11/2023 10:14 [facility] Calcium 8.1(L) 8.5 - 10.5 mg/dL 02/11/2023 10:14 [facility] BUN 20 10 - 26 mg/dL 02/11/2023 10:14 [facility] Creatinine 0.99 0.66 - 1.25 mg/dL 02/11/2023 10:14 [facility] eGFR 81 >60 mL/min/1.73 m2 02/11/2023 10:14 [facility] Blood VENOUS BLOOD / Unknown Venipuncture / Unknown 02/11/2023 8:41 EDT 02/11/2023 9:37 EDT Dustin Hubbard MD CHEMISTRY & BLOO D GAS ORDERABLES Performing Organization Address City/[facility]/ZIP Co de Phone Number [facility] [address] [place] [address] * (ABNORMAL) COMPLETE BLOOD COUNT (02/11/2023 1:53 EDT) WBC 7.50 4.00 - 10.40 K/cmm 02/11/2023 2:10 T [facility] RBC 3.39(L) 4.36 - 5.78 M/cmm 02/11/2023 2:10 [facility] Hemoglobin 10.7(L) 13.8 - 17.3 gm/dL 02/11/2023 2:10 [facility] HCT 30.8(L) 39.5 - 50.2 % 02/11/2023 2:10 [facility] MCV 91 81 - 95 fl 02/11/2023 2:10 [facility] MCH 31.6 27.6 - 33.0 pg 02/11/2023 2:10 [facility] MCHC 34.7 32.8 - 36.4 gm/dL 02/11/2023 2:10 [facility] RDW-CV 14.6(H) <14.2 % 02/11/2023 2:10 [facility] RDW-SD 48.6(H) <46.0 fl 02/11/2023 2:10 [facility] PLT 150 141 - 377 K/cmm 02/11/2023 2:10 [facility] MPV 9.8 9.5 - 12.7 fl 02/11/2023 2:10 [facility] Blood VENOUS BLOOD / Unknown Venipuncture / Unknown 02/11/2023 1:53 EDT 02/11/2023 2:01 EDT Madeline Centeno MD HEMATOLOGY & PF4 ORD ERABLES [facility] [address] [place] [address] * TRANSFUSE RED BLOOD CELLS (02/11/2023 0:20 EDT) Blood Madeline Centeno MD NURSING TREATMENT - BLOOD ADMINISTRATION * (ABNORMAL) COMPLETE BLOOD COUNT (02/10/2023 21:11 EDT) WBC 7.50 4.00 - 10.40 K/cmm 02/10/2023 21:49 [facility] RBC 3.44(L) 4.36 - 5.78 M/cmm 02/10/2023 21:49 [facility] Hemoglobin 10.9(L) 13.8 - 17.3 gm/dL 02/10/2023 21:49 [facility] HCT 32.2(L) 39.5 - 50.2 % 02/10/2023 21:49 [facility] MCV 94 81 - 95 fl 02/10/2023 21:49 [facility] MCH 31.7 27.6 - 33.0 pg 02/10/2023 21:49 [facility] MCHC 33.9 32.8 - 36.4 gm/dL 02/10/2023 21:49 [facility] RDW-CV 14.0 <14.2 % 02/10/2023 21:49 [facility] RDW-SD 47.4(H) <46.0 fl 02/10/2023 21:49 [facility] PLT 230 141 - 377 K/cmm 02/10/2023 21:49 [facility] MPV 10.0 9.5 - 12.7 fl 02/10/2023 21:49 [facility] Blood VENOUS BLOOD / Unknown Venipuncture / Unknown 02/10/2023 21:11 EDT 02/10/2023 21:32 EDT Linda Falcon MD HEMATOLOGY & PF4 ORD ERABLES [facility] [address] [place] [address] * PREPARE RED BLOOD CELLS (02/10/2023 20:57 EDT) Product Code Q6422R48 [facility] Donor Number [id number] U [facility] Unit [facility] Rh POS [facility] Unit Status TR^Transfuse [facility] Product Expiration Date [id number] [facility] Unit Blood Type Code 5100 [facility] Volume 330 [facility] Coding System [id number] [facility] 02/10/2023 20:5 7 EDT Madeline Centeno MD BLOOD BANK ORDERABLE S [facility] [address] [place] [address] * PREPARE RED BLOOD CELLS (02/10/2023 20:57 EDT) Product Code [id number] [facility] Donor Number [id number] [facility] B[facility] Unit ABO O [facility] Unit Rh POS [facility] Unit Status PT^Presumed Transfuse [facility] Product Expiration Date [id number] [facility] Unit Blood Type Code 5100 [facility] Volume 330 [facility] Coding System [id number] [facility] Blood 02/10/2023 20:5 7 EDT Madeline Centeno MD BLOOD BANK ORDERABLE S [facility] [address] [place] [address] * TRANSFUSE RED BLOOD CELLS (02/10/2023 19:47 EDT) Blood Dustin Hubbard MD NURSING TREATMEN T - BLOOD ADMINISTRATION * TRANSFUSE RED BLOOD CELLS (02/10/2023 19:47 EDT) Blood Dustin Hubbard MD NURSING TREATMEN T - BLOOD ADMINISTRATION * PATIENT RE-TYPE (02/10/2023 16:49 EDT) ABO O 02/10/2023 17:08 EDT [facility] Rh Factor Positive 02/10/2023 17:08 EDT [facility] Blood VENOUS BLOOD / Unknown Venipuncture / Unknown 02/10/2023 16:49 EDT 02/10/2023 16:54 EDT Chepe Eid MD BLOOD BANK TESTS Performing Organization Address City/[facility]/ZIP Co de Phone Number [facility] [address] [facility] [place] [address] * PREPARE RED BLOOD CELLS (02/10/2023 15:54 EDT) Product Code [id number] [facility] Donor Number [id number] [facility] B[facility] Unit ABO O [facility] B[facility]OD [facility] Unit Rh POS [facility] BLOOD [facility] Unit Status TR^Transfuse [facility] BLOOD [facility] Product Expiration Date [id number] [facility] Unit Blood Type Code 5100 [facility] Volume 330 [facility] Coding System [id number] [facility] Blood 02/10/2023 15:5 4 EDT Igor Govea MD BLOOD BANK ORDERABLE S [facility] [address] [place] [address] * ECG REPORT - SCANNED (02/10/2023 14:18 EDT) 02/10/2023 14:1 8 EDT Scan 2 Bundle Shaker PROCEDURE/MINOR BROOKE GICAL ORDERABLES * EKG 12-LEAD (02/10/2023 14:11 EDT) 02/10/2023 14:1 1 EDT Narrative [facility] E[facility] - 02/10/2023 14:12 EDT ?[facility] ? Test Date: ?2023-02-10 Pat Name: ? GLORIA GARCIA ?Department: ?? ED ? Room: ? GT45 Gender: ? Male ? 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 [id number] : ?1950 ? Requested By: PEBBLES INMAN Order Number: [id number] ? Reading MD: ?? EJ BECKER MD ? Measurements Intervals ?Candia ? Rate: ? 67 ? P: ?33 ND: ? 177 ?QRS: ?-64 QRSD: ? 112 ?T: ?30 QT: ? 385 ? QTc: ?407 ? Interpretive Statements SINUS RHYTHM MODERATE INTRAVENTRICULAR CONDUCTION DELAY I reviewed the tracing and have either agreed or edited the findings in this report. Electronically Signed On 02-10-2023 14:12:30 EDT by EJ BECKER MD. 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 Electronically Signed On 02-10-2023 14:12:30 EDT by EJ RICHARDSON. Sunshine Torres PA-C CARDIAC ECG ORDERABLES [facility] * HOLD BLUE TOP (02/10/2023 14:04 EDT) [facility] Signature Hold Hold 02/10/2023 15:15 EDT [facility] Blood VENOUS BLOOD / Unknown Venipuncture / Unknown 02/10/2023 14:04 EDT 02/10/2023 14:07 EDT Sunshine Torres PA-C LAB INFO SER VICE AND SUPPORT & PHONE RESULT Performing Organization Address [facility] Co de Phone Number [facility] [address] [place] [address] * HEMOGLOBIN A1C (02/10/2023 14:03 EDT) Hemoglobin A1c 5.0 <5.7 % 02/10/2023 18:55 EDT [facility] Comment: Glycemic Status References: Normal: ??<5.7% Pre-Diabetes: ??5.7% - 6.4% Diagnostic of Diabetes: ??> or = 6.5% (if confirmed) Est Avg Glucose 97 mg/dL 18:55 EDT [facility] Comment:The eAG represents t he A1c result expressed as average glucose in mg/dL. Blood VENOUS BLOOD / Unknown Venipuncture / Unknown 02/10/2023 14:03 EDT 02/10/2023 14:07 EDT Dustin Hubbard MD CHEMISTRY & BLOO D GAS ORDERABLES Performing Organization Address [facility] Co de Phone Number [facility] [address] [place] [address] * (ABNORMAL) COMPREHENSIVE METABOLIC PANEL (CMP) (02/10/2023 14:03 EDT) Sodium 137 136 - 145 mmol/L 02/10/2023 14:25 EDT [facility] Potassium 4.4 3.5 - 5.0 mmol/L 02/10/2023 14:25 EDT [facility] Chloride 104 96 - 110 mmol/L 02/10/2023 14:25 EDT [facility] CO2 Total 23 22 - 32 mmol/L 02/10/2023 14:25 [facility] Glucose 115(H) 70 - 100 mg/dL 02/10/2023 14:25 [facility] BUN 24 10 - 26 mg/dL 02/10/2023 14:25 [facility] Creatinine 1.13 0.66 - 1.25 mg/dL 02/10/2023 14:25 [facility] eGFR 69 >60 mL/min/1.7 3m2 02/10/2023 14:25 [facility] Total Protein 6.5 6.3 - 8.2 g/dL 02/10/2023 14:25 [facility] Albumin 3.7 3.4 - 4.9 g/dL 02/10/2023 14:25 [facility] Alkaline Phosphatase 43 38 - 126 U/L 02/10/2023 14:25 [facility] AST 32 15 - 46 U/L 02/10/2023 14:25 [facility] ALT 32 <50 U/L 02/10/2023 14:25 [facility] Bilirubin, Total 0.7 <1.4 mg/dL 02/11/20 14:25 [facility] Calcium 8.1(L) 8.5 - 10.5 mg/dL 02/10/2023 14:25 [facility] Albumin/Globulin Ratio 1.3 1.0 - 2.5 02/10/2023 14:25 [facility] Anion Gap 10 5 - 14 02/10/2023 14:25 [facility] Blood VENOUS BLOOD / Unknown Venipuncture / Unknown 02/10/2023 14:03 EDT 02/10/2023 14:06 T Sunshine Torres PA-C CHEMISTRY & BLOOD GAS ORDERABLES [facility] [address] [place] [address] * (ABNORMAL) COMPLETE BLOOD COUNT AND DIFFERENTIAL (02/10/2023 14:03 [facility]) WBC 5.39 4.00 - 10.40 K/cmm 02/10/2023 14:40 [facility] RBC 3.54(L) 4.36 - 5.78 M/cmm 02/10/2023 14:40 [facility] Hemoglobin 11.5(L) 13.8 - 17.3 gm/dL 02/10/2023 14:40 [facility] HCT 33.4(L) 39.5 - 50.2 % 02/10/2023 14:40 [facility] MCV 94 81 - 95 fl 02/10/2023 14:40 [facility] MCH 32.5 27.6 - 33.0 pg 02/10/2023 14:40 [facility] MCHC 34.4 32.8 - 36.4 gm/dL 02/10/2023 14:40 [facility] RDW-CV 13.5 <14.2 % 02/10/2023 14:40 [facility] RDW-SD 46.9(H) <46.0 fl 02/10/2023 14:40 [facility] PLT 226 141 - 377 K/cmm 02/10/2023 14:40 [facility] MPV 10.1 9.5 - 12.7 fl 02/10/2023 14:40 [facility] % Neutrophils 50.2 % 02/10/2023 14:40 [facility] % Lymphocytes 38.4 % 02/10/2023 14:40 [facility] % Monocytes 9.5 % 02/10/2023 14:40 [facility] % Eosinophils 0.6 % 02/10/2023 14:40 [facility] % Basophils 0.7 % 02/10/2023 14:40 [facility] % Immature Grans 0.6 % 02/11/20 14:40 [facility] Absolute Neutrophils 2.71 2.20 - 8.85 K/cmm 02/10/2023 14:40 EDT [facility] Absolute Lymphocytes 2.07 1.09 - 3.30 K/cmm 02/10/2023 14:40 EDT [facility] Absolute Monocytes 0.51 0.10 - 0.80 K/cmm 02/10/2023 14:40 EDT [facility] Absolute Eosinophils 0.03 0.03 - 0.61 K/cmm 02/10/2023 14:40 EDT [facility] ABS Basophils 0.04 0.01 - 0.11 K/cmm 02/10/2023 14:40 T [facility] Absolute Immature Grans 0.03 0.00 - 0.06 K/cmm 02/10/2023 14:40 EDT [facility] Type of Differential: Auto 02/10/2023 14:40 EDT [facility] Blood VENOUS BLOOD / Unknown Venipuncture / Unknown 02/10/2023 14:03 EDT 02/10/2023 14:07 EDT Sunshine Torres PA-C PACKAGES & D NA PROBE ORDERABLES Performing Organization Address City/State/[facility] Co de Phone Number [facility] [address] [place] [address] * TYPE AND SCREEN (02/10/2023 14:03 EDT) ABO O 02/10/2023 15:00 EDT [facility] Rh Factor Positive 02/10/2023 15:00 EDT [facility] Antibody Screen Negative 02/10/2023 15:00 EDT [facility] Specimen Expires: 02/13/2023 @ 23:59 02/10/2023 15:00 EDT [facility] Blood VENOUS BLOOD / Unknown Venipuncture / Unknown 02/10/2023 14:03 EDT 02/10/2023 14:07 EDT Sunshine Torres PA-C BLOOD BANK T ESTS [facility] [address] [facility] [place] [address] documented in this encounter Visit Diagnoses Diagnosis Rectal bleeding- Primary Hemorrhage of rectum and anus Rectal bleeding Hemorrhage of rectum and anus Acute blood loss anemia Acute posthemorrhagic anemia Anemia Anemia, unspecified Acute blood loss anemia Acute posthemorrhagic anemia Erectile dysfunction after radical prostatectomy documented in this encounter Admitting Diagnoses Diagnosis Anemia Anemia, unspecified documented in this encounter Administered Medications Inactive Administered Medications - up to 3 most recent administrations Medication Order MAR Action Action Date Dose Rate Site acetaminophen (TYLENOL) solution unit dose cup 650 mg 650 mg, oral, PRN, 1 dose, Starting on Thu02/11/23 at 1400, Until Thu02/12/23 at 1529, Pain, Routine, Recovery (only) acetaminophen (TYLENOL) tablet 650 mg 650 mg, oral, PRN, 1 dose, Starting on Thu02/11/23 at 1400, Until Thu02/12/23 at 1529, Pain, Routine, Recovery (only) atropine 0.1 mg/mL syringe 0.5 mg 0.5 mg, intravenous, PRN, Starting on Thu02/11/23 at 1359, Until Thu02/12/23 at 1529, Symptomatic HR < 50, Routine, Recovery (only) buPROPion (WELLBUTRIN SR) SR tablet 150 mg 150 mg, oral, DAILY, First dose on Thu02/11/23 at 0900, Until Discontinued, Routine Given 02/12/2023 10:06 EDT 150 mg Given 02/11/2023 9:13 EDT 150 mg erythromycin (ROMYCIN) 5 mg/gram (0.5 %) ophthalmic ointment right eye, 4 TIMES DAILY, 8 doses, First dose on Thu02/11/23 at 1700, Last dose on Thu02/13/23 at 1200 Given 02/12/2023 10:07 EDT Given 02/11/2023 20:14 EDT Given 02/11/2023 16:09 EDT lactated ringers (LR) infusion at 100 mL/hr, 1,000 mL, intravenous, CONTINUOUS, Starting on Thu02/11/23 at 0000, Until Thu02/11/23 at 1205, Routine Rate Documented 02/11/2023 8:55 EDT 100 mL /hr IV New Bag 02/11/2023 2:06 EDT 1,000 mL 100 mL/hr lactated ringers (LR) infusion 30 mL/hr, intravenous, PRN, Starting on Thu02/11/23 at 1258, Until Thu02/12/23 at 1529, Routine, Preprocedure New Bag 02/11/2023 13:07 EDT 30 mL/hr 30 mL/hr lamoTRIgine (LAMICTAL) tablet 25 mg 25 mg, oral, AT BEDTIME, First dose on Thu02/10/23 at 2100, Until Discontinued, Routine Given 02/11/2023 20:14 EDT 25 mg Given 02/10/2023 22:27 EDT 25 mg lamoTRIgine (LAMICTAL) tablet 50 mg 50 mg, oral, DAILY, First dose on Thu02/11/23 at 0900, Until Discontinued, Routine Given 02/12/2023 10:05 EDT 50 mg Given 02/11/2023 9:13 EDT 50 mg lidocaine (PF) 10 mg/mL (1 %) injection 2 mg 2 mg, intradermal, PRN, 4 doses, Starting on Thu02/11/23 at 1258, Until Nydia 02/12/23 at 1529, peripheral intravenous catheter placement, Routine, Preprocedure lidocaine (PF) 10 mg/mL (1 %) injection 2 mg 2 mg, intradermal, PRN, 2 doses, Starting on Thu02/11/23 at 1258, Until Nydia 02/12/23 at 1529, line access, Routine, Preprocedure naloxone (NARCAN) injection 0.2 mg 0.2 mg, intravenous, PRN, Starting on Thu02/11/23 at 1359, Until Nydia 02/12/23 at 1529, Opioid Reversal, Routine, Recovery (only) ondansetron (PF) (ZOFRAN) injection 4 mg 4 mg, intravenous, EVERY 4 HOURS PRN, Starting on Thu02/10/23 at 1803, Until Thu02/12/23 at 1529, Nausea, Routine ondansetron (PF) (ZOFRAN) injection 4 mg 4 mg, intravenous, PRN, Starting on Thu02/11/23 at 1258, Until Nydia 02/12/23 at 1529, Nausea, Vomiting, Routine, Intraprocedure ondansetron (ZOFRAN-ODT) disintegrating tablet 4 mg 4 mg, oral, EVERY 4 HOURS PRN, Starting on Thu02/10/23 at 1803, Until Thu02/12/23 at 1529, Nausea, Routine oxyCODONE (ROXICODONE) immediate release tablet 5-10 mg 5-10 mg, oral, EVERY 30 MINUTES PRN, 2 doses, Starting on Thu02/11/23 at 1359, Until Thu02/12/23 at 1529, Pain, Routine, Recovery (only) polyethylene glycol (GoLYTELY;NuLYTELY) suspension 4 L 4 L, oral, SEE ADMIN INSTRUCTIONS, 4 doses, Starting on Thu02/10/23 at 2143, Until Thu02/12/23 at 1529, Routine, Scheduling/ADT sodium chloride 0.9 % (flush) flush 5 mL 5 mL, intravenous, EVERY 8 HOURS, First dose on Thu02/11/23 at 1600, Until Discontinued, Routine, Preprocedure Given 02/11/2023 23:29 EDT 5 mL Given 02/11/2023 16:09 EDT 5 mL sodium chloride 0.9 % (flush) flush 5 mL 5 mL, intravenous, PRN, Starting on Thu02/11/23 at 1258, Until Thu02/12/23 at 1529, Line Care, Routine, Preprocedure sodium chloride 0.9 % (NS) infusion 30 mL/hr, intravenous, PRN, Starting on Thu02/11/23 at 1258, Until Thu02/12/23 at 1529, Routine, Preprocedure sodium chloride 0.9 % BOLUS 500 mL 500 mL, intravenous, NOW X1, 1 dose, On Thu02/10/23 at 1330, STAT New Bag 02/10/2023 14:08 EDT 500 mL sodium,potassium,mag sulfates (SUPREP BOWEL PREP) kit oral, 2 TIMES DAILY, 2 doses, First dose on Thu02/10/23 at 1900, Last dose on Thu02/11/23 at 0700, Routine Given 02/10/2023 19:23 EDT documented in this encounter Discontinued Medications Medication Sig Discontinue Reason Start Date End Da te econazole nitrate 1 % cream Apply 1 application topically 2 times daily as needed. 11/05/2015 02/12/2023 nystatin (MYCOSTATIN) ointment Apply 1 application topically 3 times daily as needed. 11/05/2015 02/12/2023 azithromycin (ZITHROMAX) 250 mg tablet Take 2 tablets (500 mg) on day 1, followed by 1 tablet (250 mg) once daily on days 2 through 5. 12/26/2021 02/12/2023 documented as of this encounter Active and Recently Administered Medications Times are shown in EDT. Scheduled Medication Order 02/10/2023 02/11/2023 02/12/2023 buPROPion (WELLBUTRIN SR) SR tablet 150 mg 150 mg, oral, DAILY, First dose on Thu02/11/23 at 0900, Until Discontinued, Routine 912 (Given - Provider: Ramana Carranza) 1006 (Given - Provider: Tianna Green, GLORIA) erythromycin (ROMYCIN) 5 mg/gram (0.5 %) ophthalmic ointment right eye, 4 TIMES DAILY, 8 doses, First dose on Thu02/11/23 at 1700, Last dose on Thu02/13/23 at 1200 1609 (Given - Provider: Julita Foss RN)2013 (Given - Provider: Gigi Cedeño, GLORIA) 1007 (Given - Provider: Tianna Green, GLORIA)1200 (Canceled Entry - Provider: Batch Job User Admin - Comment: Automatically canceled at discontinue of medication order) lamoTRIgine (LAMICTAL) tablet 25 mg 25 mg, oral, AT BEDTIME, First dose on Thu02/10/23 at 2100, Until Discontinued, Routine 2227 (Given - Provider: Huan Bender, GLORIA) 2013 (Given - Provider: Gigi Cedeño, GLORIA) lamoTRIgine (LAMICTAL) tablet 50 mg 50 mg, oral, DAILY, First dose on Thu02/11/23 at 0900, Until Discontinued, Routine 09 (Given - Provider: Ramana Carranza) 1005 (Given - Provider: Tianna Green, RN) polyethylene glycol (GoLYTELY;NuLYTELY) suspension 4 L 4 L, oral, SEE ADMIN INSTRUCTIONS, 4 doses, Starting on Thu02/10/23 at 2143, Until Nydia 02/12/23 at 1529, Routine, Scheduling/ADT sodium chloride 0.9 % (flush) flush 5 mL(Linked Group 1) 5 mL, intravenous, EVERY 8 HOURS, First dose on Thu02/11/23 at 1600, Until Discontinued, Routine, Preprocedure 1609 (Given - Provider: Julita Foss, RN)2329 (Given - Provider: Gigi Cedeño, GLORIA) 1006 (Not Given - Provider: Tianna Green RN - Reason: Discontinued - Comment: discharging) sodium chloride 0.9 % BOLUS 500 mL (COMPLETED) 500 mL, intravenous, NOW X1, 1 dose, On Thu02/10/23 at 1330, STAT 1408 (New Bag - Provider: Guanaco Che RN) sodium,potassium,mag sulfates (SUPREP BOWEL PREP) kit (CANCELED) oral, 2 TIMES DAILY, 2 doses, First dose on Thu02/10/23 at 1900, Last dose on Thu02/11/23 at 0700, Routine 1923 (Given - Provider: Maxi Montero RN) Continuous Medication Order 02/10/2023 02/11/2023 02/12/2023 lactated ringers (LR) infusion () at 100 mL/hr, 1,000 mL, intravenous, CONTINUOUS, Starting on Thu02/11/23 at 0000, Until Thu02/11/23 at 1205, Routine 0206 (New Bag - Provider: Huan Bender RN)0855 (Rate Documented - Provider: Ramana Carranza) PRN Medication Order 02/10/2023 02/11/2023 02/12/2023 acetaminophen (TYLENOL) solution unit dose cup 650 mg(Linked Group 2) 650 mg, oral, PRN, 1 dose, Starting on Thu02/11/23 at 1400, Until Nydia 02/12/23 at 1529, Pain, Routine, Recovery (only) acetaminophen (TYLENOL) tablet 650 mg(Linked Group 2) 650 mg, oral, PRN, 1 dose, Starting on Thu02/11/23 at 1400, Until Nydia 02/12/23 at 1529, Pain, Routine, Recovery (only) atropine 0.1 mg/mL syringe 0.5 mg 0.5 mg, intravenous, PRN, Starting on Thu02/11/23 at 1359, Until Nydia 02/12/23 at 1529, Symptomatic HR < 50, Routine, Recovery (only) lactated ringers (LR) infusion(Linked Group 3) 30 mL/hr, intravenous, PRN, Starting on Thu02/11/23 at 1258, Until Nydia 02/12/23 at 1529, Routine, Preprocedure 1307 (New Bag - Provider: Vanessa Johnson RN)1515 (IV Stopped - Provider: Jessica Herron RN) lidocaine (PF) 10 mg/mL (1 %) injection 2 mg 2 mg, intradermal, PRN, 4 doses, Starting on Thu02/10/23 at 1656, Until Thu02/12/23 at 1529, peripheral intravenous catheter placement, Routine lidocaine (PF) 10 mg/mL (1 %) injection 2 mg 2 mg, intradermal, PRN, 4 doses, Starting on Thu02/11/23 at 1258, Until Nydia 02/12/23 at 1529, peripheral intravenous catheter placement, Routine, Preprocedure lidocaine (PF) 10 mg/mL (1 %) injection 2 mg 2 mg, intradermal, PRN, 2 doses, Starting on Thu02/11/23 at 1258, Until Nydia 02/12/23 at 1529, line access, Routine, Preprocedure naloxone (NARCAN) injection 0.2 mg 0.2 mg, intravenous, PRN, Starting on Thu02/11/23 at 1359, Until Thu02/12/23 at 1529, Opioid Reversal, Routine, Recovery (only) ondansetron (PF) (ZOFRAN) injection 4 mg(Linked Group 4) 4 mg, intravenous, EVERY 4 HOURS PRN, Starting on Thu02/10/23 at 1803, Until Thu02/12/23 at 1529, Nausea, Routine ondansetron (PF) (ZOFRAN) injection 4 mg 4 mg, intravenous, PRN, Starting on Thu02/11/23 at 1258, Until Nydia 02/12/23 at 1529, Nausea, Vomiting, Routine, Intraprocedure ondansetron (ZOFRAN-ODT) disintegrating tablet 4 mg(Linked Group 4) 4 mg, oral, EVERY 4 HOURS PRN, Starting on Thu02/10/23 at 1803, Until Thu02/12/23 at 1529, Nausea, Routine oxyCODONE (ROXICODONE) immediate release tablet 5-10 mg 5-10 mg, oral, EVERY 30 MINUTES PRN, 2 doses, Starting on Thu02/11/23 at 1359, Until Thu02/12/23 at 1529, Pain, Routine, Recovery (only) sodium chloride 0.9 % (flush) flush 5 mL 5 mL, intravenous, PRN, Starting on Thu02/11/23 at 1258, Until Thu02/12/23 at 1529, Line Care, Routine, Preprocedure sodium chloride 0.9 % (NS) infusion(Linked Group 3) 30 mL/hr, intravenous, PRN, Starting on Thu02/11/23 at 1258, Until Thu02/12/23 at 1529, Routine, Preprocedure 1307 (See Alternative - Provider: Vanessa Johnson RN)1515 (See Alternative - Provider: Jessica Herron RN) Linked Groups Order Group 1: Insert Saline Lock (CANCELED) Routine, ONE TIME, On Thu02/11/23 at 1300, For 1 occurrence, Preprocedure And sodium chloride 0.9 % (flush) flush 5 mLJump to med 5 mL, intravenous, EVERY 8 HOURS, First dose on Thu02/11/23 at 1600, Until Discontinued, Routine, Preprocedure Group 2: acetaminophen (TYLENOL) solution unit dose cup 650 mgJump to med 650 mg, oral, PRN, 1 dose, Starting on Thu02/11/23 at 1400, Until Nydia 02/12/23 at 1529, Pain, Routine, Recovery (only) Or acetaminophen (TYLENOL) tablet 650 mgJump to med 650 mg, oral, PRN, 1 dose, Starting on Thu02/11/23 at 1400, Until Nydia 02/12/23 at 1529, Pain, Routine, Recovery (only) Group 3: sodium chloride 0.9 % (NS) infusionJump to med 30 mL/hr, intravenous, PRN, Starting on Thu02/11/23 at 1258, Until Thu02/12/23 at 1529, Routine, Preprocedure Or lactated ringers (LR) infusionJump to med 30 mL/hr, intravenous, PRN, Starting on Thu02/11/23 at 1258, Until Nydia 02/12/23 at 1529, Routine, Preprocedure Group 4: ondansetron (ZOFRAN-ODT) disintegrating tablet 4 mgJump to med 4 mg, oral, EVERY 4 HOURS PRN, Starting on Thu02/10/23 at 1803, Until Nydia 02/12/23 at 1529, Nausea, Routine Or ondansetron (PF) (ZOFRAN) injection 4 mgJump to med 4 mg, intravenous, EVERY 4 HOURS PRN, Starting on Thu02/10/23 at 1803, Until Thu02/12/23 at 1529, Nausea, Routine documented in this encounter Orders Medications Ordered That Vasiliy ht Not Have Been Administered Count Last Ordered Date First Ordered Date acetaminophen (TYLENOL) solu tion unit dose cup 650 mg 1 02/11/2023 acetaminophen (TYLENOL) tablet 650 mg 1 10/2023 atropine 0.1 mg/mL syringe 0.5 mg 1 023 diphenhydrAMINE (BENADRYL) injection 25 mg 1 02/11/2023 lactated ringers (LR) infusion 1 02/11/2023 lidocaine (PF) 10 mg/mL (1 % ) injection 2 mg 4 02/11/2023 02/10/2023 naloxone (NARCAN) injection 0.2 mg 1 2022 ondansetron (PF) (ZOFRAN) injection 4 mg 2 02/11/2023 02/10/2023 oxyCODONE (ROXICODONE) immed iate release tablet 5-10 mg 1 02/11/2023 sodium chloride 0.9 % (flush) flush 5 mL 1 02/11/2023 sodium chloride 0.9 % (NS) infusion 1 02/11 ondansetron (ZOFRAN-ODT) dis integrating tablet 4 mg 1 02/10/2023 polyethylene glycol (GoLYTEL Y;NuLYTELY) suspension 4 L 1 02/10/2023 sodium,potassium,mag sulfate s (SUPREP BOWEL PREP) kit 6 oz 1 02/10/2023 Diet Count Last Ordered Date First Orde red Date DISCHARGE DIET 1 02/12/2023 Nursing Count Last Ordered Date First Orde red Date ACTIVITY INSTRUCTIONS 1 02/12/2023 BATHING INSTRUCTIONS 1 02/12/2023 DRIVING INSTRUCTIONS 1 02/12/2023 Admission Count Last Ordered Date First Orde red Date ADMIT TO INPATIENT 1 02/10/2023 Transfer Count Last Ordered Date First Orde red Date ED BED REQUEST 1 02/10/2023 Discharge Count Last Ordered Date First Orde red Date DISCHARGE PATIENT 1 02/12/2023 Legal Count Last Ordered Date First Orde red Date MISCELLANEOUS DISCHARGE INSTRUCTIONS 1 01/31 documented in this encounter Care Teams Communications Writer Relationship Specialty Start Date End Date Vel Santos MD PCP - General 10/30/11 03/09/23 documented as of this encounter
--- OUTSIDE RECORDS SUMMARY | 2024-07-19 22:12 | XMS_ITS | Encounter Summary ---
Author Organization [facility] Address [address] [place] [address] Care Team Providers Care Typesetting Machine Tender Name Role Phone Vel Santos MD Primary Care Provider Unava ilable Reason for Visit * Reason Onset Date Comments Heart Problem 01/14/2023 Pt and his calling pt thinks he has a heart problem looking for TC to answer his question and he only wants TC to answer Encounter Details Date Type Department Care Team (Late st Contact Info) Description 01/14/2023 Telephone [facility] Family Medicine [place] [address] [address] , [facility] [address] [place] [address] Vel Santos MD Heart Problem (Pt and his calling pt thinks he has a heart problem looking for TC to answer his question and he only wants TC to answer ) Social History Tobacco Use Types Packs/Day Years [...] Telephone Encounter - Raina Trevino RN - 01/15/2023 1023 EDT Pt went to ED yesterday. * Telephone Encounter - Elisa Ernandez - 01/14/2023 1547 EDT Pt calling thinks that he has a heart issue he states that he has rapid pulse and difficulty breathing when exercising he is wondering if he should go to ER or if a referral to [facility] cardiology would be better. documented in this encounter Plan of Treatment Upcoming Encounters Date Type Department Care Team (Late st Contact Info) Description 10/04/2024 9:50 EST Appointment [facility] Pre-Surgical Testing [address] [place] [address] [phone] 10/14/2024 11:00 EST Hospital Encounter [facility] [place] [address] [place] [address] [phone] Clemente Gerardo MD [address] [place] [phone] 10/14/2024 11:00 EST - 10/14/2024 14:35 EST Surgery [facility] [place] [address] [place] [address] [phone] Clemente Gerardo MD [address] [place] [phone] Implantation of inflatable penile prosthesis [62397 (CPT??)] 10/17/2024 9:00 EST Telemedicine [facility] [phone] Nurse Call, [facility] 10/31/2024 15:00 EST Post-op Visit [address] [id number] Clemente Gerardo MD [address] [place] [address], Level [address] [place] [phone] 12/06/2024 10:15 EST Office Visit [facility] [address] [place], [place] [phone] Spike Puentes MD [address] [place] [phone] Scheduled Procedures Name Priority Associated Diagnoses Date/Ti me INSERTION, PENILE PROSTHESIS, INFLATABLE, 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 10/14/2024 11:00 EST documented as of this encounter Visit Diagnoses Not on filedocumented in this encounter Care Teams Typesetting Machine Tender Relationship Specialty Start Date End Date Vel Santos MD PCP - General 10/30/11 03/09/23 documented as of this encounter
--- OUTSIDE RECORDS SUMMARY | 2024-07-19 22:13 | XMS_ITS | Encounter Summary ---
Author Organization [facility] Address [address] [place] [address] Care Team Providers Care Summer Associate Name Role Phone Vel Santos MD Primary Care Provider Unava ilable Reason for Visit * Reason Onset Date Comments Medication Problem 02/04/2021 Encounter Details Date Type Department Care Team (Late st Contact Info) Description 02/04/2021 Telephone [facility] [address] , [address] [place], [place] [phone] Vel Santos MD Medication Problem Social History Tobacco Use Types Packs/Day [...] testosterone cypionate (DEPO-TESTOSTERONE) 200 mg/mL injection Inject 1 mL into the muscle every 7 days. Daily Max: 200 mg 12 mL 5 02/04/2021 08/23/2021 documented in this encounter Miscellaneous Notes * Telephone Encounter - Vel Santos MD - 02/04/2021 1417 EDT done * Telephone Encounter - Raina Trevino RN - 02/04/2021 1353 EDT TC-med repended to be resent * Telephone Encounter - Jj Joseph - 02/04/2021 1341 EDT asaf accidentally deleted the testosterone rx that we sent the other day, can we please resend, pt needs to sweet pickle maker today documented in this encounter Plan of Treatment Upcoming Encounters Date Type Department Care Team (Late st Contact Info) Description 10/04/2024 9:50 EST Appointment [facility] Pre-Surgical Testing [address] [place] [address] [phone] 10/14/2024 11:00 EST Hospital Encounter [facility] OR [address] [place] [address] [phone] Clemente Gerardo MD [address] [place] [address] [phone] 10/14/2024 11:00 EST - 10/14/2024 14:35 EST Surgery [facility] OR [address] [place] [address] [phone] Clemente Gerardo MD [address] [place] [address] [phone] Implantation of inflatable penile prosthesis [16626 (CPT??)] 10/17/2024 9:00 EST Telemedicine [facility] Urology [address] [phone] Nurse Call, [facility] Urology 10/31/2024 15:00 EST Post-op Visit [facility] [phone] Clemente Gerardo MD [address] [facility], [address] [place] [phone] 12/06/2024 10:15 EST Office Visit [address] 910281 Spike Puentes MD [address] [place] [phone] Scheduled Procedures Name Priority Associated Diagnoses Date/Ti me INSERTION, PENILE PROSTHESIS, INFLATABLE, 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 10/14/2024 11:00 EST documented as of this encounter Visit Diagnoses Not on filedocumented in this encounter Discontinued Medications Medication Sig Discontinue Reason Start Date End Da te testosterone cypionate (DEPO-TESTOSTERONE) 200 mg/mL injection Inject 1 mL into the muscle every 7 days. Daily Max: 200 mg Reorder 01/29/2021 02/04/2021 documented as of this encounter Care Teams Summer Associate Relationship Specialty Start Date End Date Vel Santos MD PCP - General 10/30/11 03/09/23 documented as of this encounter
--- OUTSIDE RECORDS SUMMARY | 2024-07-19 22:13 | XMS_ITS | Encounter Summary ---
Author Organization [facility] Address [address] [place] [address] Care Team Providers Care Campaign Advisor Name Role Phone Vel Santos MD Primary Care Provider Unava ilable Reason for Visit * Reason Onset Date Comments Medications Refill 10/19/2020 question dosi ng Encounter Details Date Type Department Care Team (Late st Contact Info) Description 10/19/2020 Refill [facility] [address] [place], [place] [phone] Vel Santos MD Medications Refill (question dosing) Social History Tobacco Use Types Packs/Day Years [...] SR) 150 mg SR tablet Take 1 Tab by mouth every morning. 90 Tab 10/30/2020 11/05/2020 amLODIPine (NORVASC) 5 mg tablet Take 1 Tab by mouth daily. 90 Tab 4 10/30/2020 11/05/2020 lamoTRIgine (LAMICTAL) 25 mg tablet Take 3 Tabs by mouth 2 times daily. 180 Tab 10/25/2020 11/05/2020 documented in this encounter Miscellaneous Notes * Telephone Encounter - Qing Madison RN - 10/30/2020 1351 EST It appears that Xin has requested medication refills be sent to [facility] in the previous documentation. Medication dosing needs verification by TC will forward for review and sending. * Telephone Encounter - Tashi Marks MD - 10/25/2020 1311 EST Patient's called back today. Didn't get message yesterday. Confirms Dr. Santos increased lamotrigine to 75mg BID - sent in 30 day supply. To PCP for further * Telephone Encounter - Jj Joseph - 10/24/2020 1542 EST [facility] called, let them know we are waiting for call back from pt * Telephone Encounter - Qnig Madison RN - 10/24/2020 1327 EST LM * Telephone Encounter - Sarah Tsang RN - 10/23/2020 0912 EST [facility] MEDICATION REFILL Medication: amlodipine 5mg Medication, dose, directions verified: 2 tabs po daily? Pharmacy verified: [facility] Last office visit: 07/31/20 Next office visit: none Medication: bupropion 150mg Medication, dose, directions verified: 3 tabs po every morning ? Pharmacy verified[facility] Last office visit: 07/31/20 Next office visit: none Medication: lamictal 25mg Medication, dose, directions verified: 1 tab BID Pharmacy verified: [facility] Last office visit: 07/31/20 Next office visit: none TE to Dr. Santos, I pended meds. Your last office note mentions that he is only taking 5mg of amlodipine not 10mg daily. Also note that lamictal is 1 tab BID not 3 tabs BID? * Telephone Encounter - Queenie Loredo - 10/22/2020 1250 EST Xin called the script line asking for updated prescriptions for three of Roland's medications, stating that Dr. Santos had modified the doses since they were last ordered. She reported that Roland takes bupropion hcl sr 150mg (1 tab/day), amlodipine 5mg (2 tabs/day), and lamotrigine 25mg (3 tabs BID). She also said that despite previously ordering through [facility], they would like the have these orders processed by [facility]. * Telephone Encounter - Talisha Arredondo - 10/22/2020 1026 EST Marlene from [facility] called, pt is requesting a refill but they don't see that the pt has had any refills since December. Is pt still supposed to be taking this? documented in this encounter Plan of Treatment Upcoming Encounters Date Type Department Care Team (Late st Contact Info) Description 10/04/2024 9:50 EST Appointment [facility] Pre-Surgical Testing [address] [place], [place] [phone] 10/14/2024 11:00 EST Hospital Encounter [facility] OR [address] [place] [address] Clemente Gerardo MD [address] [phone] 10/14/2024 11:00 EST - 10/14/2024 14:35 EST Surgery [facility] OR [address] [place] [address] [phone] Clemente Gerardo MD [address] [place] [address] [phone] Implantation of inflatable penile prosthesis [14796 (CPT??)] 10/17/2024 9:00 EST Telemedicine [facility] Urolog[address] [phone] Nurse Call, [facility] Urology 10/31/2024 15:00 EST Post-op Visit [address] [phone] Clemente Gerardo MD [address] [place] [phone] 12/06/2024 10:15 EST Office Visit [facility] Ophthalmology [address] [address] Spike Puentes MD [address] [place] [phone] Scheduled Procedures Name Priority Associated Diagnoses Date/Ti me INSERTION, PENILE PROSTHESIS, INFLATABLE, 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 10/14/2024 11:00 EST documented as of this encounter Visit Diagnoses Not on filedocumented in this encounter Discontinued Medications Medication Sig Discontinue Reason Start Date End Da te lamoTRIgine (LAMICTAL) 25 mg tablet Take 25 mg by mouth 2 times daily. Reorder 10/23/2020 amLODIPine (NORVASC) 5 mg tablet Take 1 Tab by mouth daily. Reorder 2020 10/30/2020 buPROPion (WELLBUTRIN SR) 150 mg SR tablet Take 1 Tab by mouth every morning. Reorder 04/06/2014 10/30/2020 documented as of this encounter Care Teams Campaign Advisor Relationship Specialty Start Date End Date Vel Santos MD PCP - General 10/30/11 03/09/23 documented as of this encounter
--- OUTSIDE RECORDS SUMMARY | 2024-07-19 22:13 | XMS_ITS | Encounter Summary ---
Author Organization [facility] Address [address] [place] [address] Care Team Providers Care Track Leader Name Role Phone Vel Santos MD Primary Care Provider Unava ilable Encounter Details Date Type Department Care Team (Late st Contact Info) Description 11/15/2020 Results Only [facility] Family Medicine [place] [address] [place] , [facility] [address] [place], [place] [phone] Vel Santos MD Social History Tobacco Use Types Packs/Day Years [...] Info) Description 10/04/2024 9:50 EST Appointment [facility] Pre-Surgical Testing [address] [place] [address] 10/14/2024 11:00 EST Hospital Encounter [facility] OR [address] [place] [address] [phone] Clemente Gerardo MD [address] [place] [address] [phone] 10/14/2024 11:00 EST - 10/14/2024 14:35 EST Surgery [facility] OR [address] [place] [address] [phone] Clemente Gerardo MD [address] [place] [address] [phone] Implantation of inflatable penile prosthesis [22499 (CPT??)] 10/17/2024 9:00 EST Telemedicine [facility] Urology [address] [phone] Nurse Call, [facility] Urology 10/31/2024 15:00 EST Post-op Visit [address] [phone] Clemente Gerardo MD [address] [place] [address] [phone] 12/06/2024 10:15 EST Office Visit [facility] Ophthalmology [address] [address] Spike Puentes MD [address] [place] [address] [phone] Scheduled Procedures Name Priority Associated Diagnoses Date/Ti me INSERTION, PENILE PROSTHESIS, INFLATABLE, 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 10/14/2024 11:00 EST documented as of this encounter Procedures Procedure Name Priority Date/Time Associated Diagnosis Comments TESTOSTERONE, TOTAL AND FREE Routine 11/15/2020 13:40 EST VITAMIN B12 Routine 11/15/2020 13:40 EST BASIC METABOLIC PANEL (BMP) Routine 11/15/2020 13:40 EST documented in this encounter Results * (ABNORMAL) TESTOSTERONE, TOTAL AND FREE (11/15/2020 13:40 EST) SEX HORMONE BINDING GLOBULIN - [facility] 23.0 21.6 - 113.1 nmol/L 11/16/2020 16:09 EST [facility] Comment: The results of this assay can be falsely lowered due to the consumption of Biotin. TESTOSTERONE FREE - [facility] 1.0(A) 3.3 - 11.6 ng/dL 11/16/2020 16:09 EST [facility] Comment: This test is not recommended in patients with plasma protein abnormalities. Test performed [place] [address] TESTOSTERONE TOTAL - [facility] 43(A) 229 - 902 ng/dL 11/16/2020 16:09 EST [facility] Comment: The results of this assay can be falsley elevated due to the consumption of Biotin. 11/15/2020 13:4 0 EST 11/15/2020 13:40 EST Narrative [facility] - 11/16/2020 16:09 EST Does PT Have a Latex Allergy? NO Vel Santos MD CHEMISTRY & BLOOD GA S ORDERABLES [facility] [address] [place] [address] * VITAMIN B12 (11/15/2020 13:40 EST) VITAMIN B12 - [facility] 635 239 - 931 pg/mL 11/15/2020 15:08 EST [facility] Comment: The results of this assay can be falsely elevated due to the consumption of Biotin. 11/15/2020 13:4 0 EST 11/15/2020 13:40 EST Narrative [facility] - 11/15/2020 15:08 EST Does PT Have a Latex Allergy? NO Vel Santos MD CHEMISTRY & BLOOD GA S ORDERABLES Performing Organization Address City/[facility]/ZIP Co de Phone Number [facility] [address] [place] [address] * BASIC METABOLIC PANEL (BMP) (11/15/2020 13:40 EST) BUN - [facility] 19 10 - 26 mg/dL 11/15/2020 14:09 [facility] CALCIUM - [facility] 9.7 8.5 - 10.5 mg/dL 11/15/2020 14:09 [facility] Chloride 104 96 - 110 mmol/L 11/15/2020 14:09 [facility] CO2 Total 26 21 - 32 mEq/L 11/15/2020 14:09 [facility] CREATININE 0.90 0.66 - 1.25 mg/dL 11/15/2020 14:09 [facility] eGFR >60 11/15/2020 14:09 [facility] Comment: Chronic renal impairment is defined as GFR <60 Multiply result by 1.210 for patients. Anion Gap 8 0 - 18 11/15/2020 14:09 [facility] GLUCOSE - [facility] 98 70 - 100 mg/dL 11/15/2020 14:09 [facility] Potassium 4.3 3.5 - 5.0 mEq/L 11/15/2020 14:09 [facility] Sodium 138 136 - 145 mEq/L 11/15/2020 14:09 [facility] 11/15/2020 13:4 0 EST 11/15/2020 13:40 EST Narrative [facility] - 11/15/2020 14:09 EST Does PT Have a Latex Allergy? NO Vel Santos MD CHEMISTRY & BLOOD GA S ORDERABLES Performing Organization Address City/[facility]/ZIP Co de Phone Number [facility] [address] [place] [phone] documented in this encounter Visit Diagnoses Not on filedocumented in this encounter Care Teams Track Leader Relationship Specialty Start Date End Date Vel Santos MD PCP - General 10/30/11 03/09/23 documented as of this encounter
--- OUTSIDE RECORDS SUMMARY | 2024-07-19 22:13 | XMS_ITS | Encounter Summary ---
Author Organization [facility] Address [address] [place] [address] Care Team Providers Care Color Weigher Name Role Phone Vel Santos MD Primary Care Provider Marco Cowart MD Primary Care Provider [phone] Marco Aleman MD Primary Care Provider [phone] Encounter Details Date Type Department Care Team (Late st Contact Info) Description 11/15/2020 Lab Requisition [facility] Pathology & Laboratory Medicine - [address] [address] Outr Resulting Lab, Provider Social History Tobacco [...] [facility] Pre-Surgical Testing [address] [place] [address] [phone] 10/14/2024 11:00 EST Hospital Encounter [facility] OR [address] [place] [address] [phone] Clemente Gerardo MD [address] [place] [address] [phone] 10/14/2024 11:00 EST - 10/14/2024 14:35 EST Surgery [facility] OR [address] [place] [address] [phone] Clemente Gerardo MD [address] [place] [phone] Implantation of inflatable penile prosthesis [42206 (CPT??)] 10/17/2024 9:00 EST Telemedicine [facility] Urology [address] [phone] Nurse Call, [facility] Urology 10/31/2024 15:00 EST Post-op Visit [facility]rolog[address] [phone] Clemente Gerardo MD [address] [place] [address] [phone] 12/06/2024 10:15 EST Office Visit [address] [phone] Spike Puentes MD [address] [place] [address] [phone] Scheduled Procedures Name Priority Associated Diagnoses Date/Ti me INSERTION, PENILE PROSTHESIS, INFLATABLE, 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 10/14/2024 11:00 EST documented as of this encounter Procedures Procedure Name Priority Date/Time Associated Diagnosis Comments TESTOSTERONE, TOTAL AND FREE Routine 11/15/2020 13:40 EST documented in this encounter Results * (ABNORMAL) TESTOSTERONE, TOTAL AND FREE (11/15/2020 13:40 EST) Testosterone 43(L) 229 - 902 ng/dL 11/16/2020 14:49 EST [facility] Comment:The results of this assay can be falsley elevated due to the consumption of Biotin. Sex Hormone Bnd Glob 23.0 21.6 - 113.1 nmol/L 11/16/2020 14:49 EST [facility] Comment:The results of this assay can be falsely lowered due to the consumption of Biotin. Free Testosterone 1.0(L) 3.3 - 11.6 ng/dL 11/16/2020 14:49 EST [facility] Blood VENOUS BLOOD / Unknown 11/15/2020 13:40 EST 11/15/2020 21:48 EST Narrative [facility] - 11/16/2020 14:49 EST This test is not recommended in patients with plasma protein abnormalities. Provider Outr Resulting Lab CHEMISTRY & BLOOD GAS ORDERABLES Performing Organization Address City/State/[facility] Co de Phone Number [facility] [address] [place] [address] documented in this encounter Visit Diagnoses Not on filedocumented in this encounter Care Teams Color Weigher Relationship Specialty Start Date End Date Vel Santos MD PCP - General 10/30/11 03/09/23 Marco Altamirano MD [address] [place] [address] [phone] PCP - General Family Medicine - Primary Care 03/10/23 09/13/23 Marco Aleman MD [address] [place] [address] [place] [phone] PCP - General Emergency Medicine 12/07/23 documented as of this encounter
--- OUTSIDE RECORDS SUMMARY | 2024-07-19 22:13 | XMS_ITS | Encounter Summary ---
Author Organization [facility] Address [address] [place] [address] Care Team Providers Care Coil Inspector Name Role Phone Vel Santos MD Primary Care Provider Unava ilable Reason for Visit * Reason Comments Other Encounter Details Date Type Department Care Team (Late st Contact Info) Description 07/13/2020 8:30 EDT Telemedicine [facility] Family Medicine [facility] [address] , [address] [place] [address] Vel Santos MD Pulmonary nodule (Primary Dx); Dilatation of aorta (HCC-CMS) Social History Tobacco Use Types Packs/Day [...] Progress Notes * Vel Santos MD - 07/13/2020 0830 EDT [facility] Telephone Visit Verbal consent: The concept of ???Telemedicine?? has been described to the patient. Patient has been informed of the anticipated benefits and possible risks. Patient understands the information provided regarding telemedicine, has had the opportunity to ask questions about this information, and all questions havebeen answered to patient???s satisfaction. Patient consents for the use of telemedicine in his/her medical care and authorizes the transmission of any relevant medical information to providers and their staff involved in patient???s medical or mental health care. Verbal consent obtained by myself or auxiliary staff: yes. Subjective: Chief Complaint(s): Other HPI: Needs mri: I need the node checked. I have a constant cough. In one of the studies they saw a separation in my aorta and it needs checked. In left lung. I do have claustrophobia- they knock me out. I had to have the stuff they do with endoscopy. 2) I get raw eczema. I keep my self cream. Eyebrows, near eyes, nose, mostly there and chin.. Not scalp. I have reviewed patient's tobacco history: reports that he has quit smoking. He has never used smokeless tobacco. I have reviewed current problem list and current medications. ROS: ROS See hpi Objective: Examination: Home Vitals: There were no vitals taken for this visit. Pertinent exam findings: speaking in full sentences and mood and affect appropriate Data reviewed with patient: Reviewed and/or ordered active problem list, medication list, imaging tests Assessment & Plan: Roland was seen today for other. Diagnoses and all orders for this visit: Pulmonary nodule Comments: will get f/u ct scan Dilatation of aorta (HCC-CMS) Comments: by echo, mild. will have him f/u with his american sign language interpreter as to the interval needed for echo f/u Patient initiated phone contact with the office: yes. Patient is an established patient (parent, guardian) yes. E/M provided within previous 7 days for same medical assessment: no Anticipate E/M service within 24hrs or next available urgent appointment no. This visit was conducted by telephone. A total of 21 minutes was spent on this encounter on the dayof this encounter. 21 min documented in this encounter Plan of Treatment Upcoming Encounters Date Type Department Care Team (Late st Contact Info) Description 10/04/2024 9:50 EST Appointment [facility] Pre-Surgical Testing [address] [place] [address] [phone] 10/14/2024 11:00 EST Hospital Encounter [facility] OR [address] [place] [address] [phone] Clemente Gerardo MD [address] [place] [address] [phone] 10/14/2024 11:00 EST - 10/14/2024 14:35 EST Surgery [facility] OR [address] [place] [address] [phone] Clemente Gerardo MD [address] [place] [phone] Implantation of inflatable penile prosthesis [70852 (CPT??)] 10/17/2024 9:00 EST Telemedicine [facility] Urolog[address] [phone] Nurse Call, [facility] Urology 10/31/2024 15:00 EST Post-op Visit [address] [phone] Clemente Gerardo MD [address] [place] [address] [phone] 12/06/2024 10:15 EST Office Visit [facility] [address] [place], [place] [phone] Spike Puentes MD [address] [place] [phone] Scheduled Procedures Name Priority Associated Diagnoses Date/Ti me INSERTION, PENILE PROSTHESIS, INFLATABLE, 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 10/14/2024 11:00 EST documented as of this encounter Visit Diagnoses Diagnosis Pulmonary nodule- Primary Solitary pulmonary nodule Dilatation of aorta (HCC-CMS) Aortic ectasia, unspecified site Erectile dysfunction after radical prostatectomy documented in this encounter Historical Medications * This list may reflect changes made after this encounter. Medication Sig Dispensed Refills Start Date End Date atorvastatin (LIPITOR) 20 mg tablet 05/1712/26/2021 escitalopram oxalate (LEXAPRO) 10 mg tablet 07/23/2020 12/26/2021 added in this encounter Care Teams Coil Inspector Relationship Specialty Start Date End Date Vel Santos MD PCP - General 10/30/11 03/09/23 documented as of this encounter
--- OUTSIDE RECORDS SUMMARY | 2024-07-19 22:13 | XMS_ITS | Encounter Summary ---
Author Organization [facility] Address [address] [place] [address] Care Team Providers Care Crystal Grinder Name Role Phone Vel Santos MD Primary Care Provider Marco Cowart MD Primary Care Provider [phone] Marco Aleman MD Primary Care Provider [phone] Encounter Details Date Type Department Care Team (Late st Contact Info) Description 11/15/2020 Results Only Imaging [facility] Radiology Results [address] [place], [place] [phone] Vel Santos MD Social History Tobacco Use [...] Appointment [facility] Pre-Surgical Testing [address] [place] [address] [phone] 10/14/2024 11:00 EST Hospital Encounter [facility] OR [address] [place] [address] [phone] Clemente Gerardo MD [address] [place] [address] [phone] 10/14/2024 11:00 EST - 10/14/2024 14:35 EST Surgery [facility] OR [address] [place] [address] [phone] Clemente Gerardo MD [address] [place] [address] [phone] Implantation of inflatable penile prosthesis [70878 (CPT??)] 10/17/2024 9:00 EST Telemedicine [facility] Urology [address] [phone] Nurse Call, [facility] Urology 10/31/2024 15:00 EST Post-op Visit [facility] Urology [address] [phone] Clemente Gerardo MD [address] [place] [address] [phone] 12/06/2024 10:15 EST Office Visit [facility] Ophthalmology [address] 642161 Spike Puentes MD [address] [place] [address] [phone] Scheduled Procedures Name Priority Associated Diagnoses Date/Ti me INSERTION, PENILE PROSTHESIS, INFLATABLE, 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 10/14/2024 11:00 EST documented as of this encounter Procedures Procedure Name Priority Date/Time Associated Diagnosis Comments CT CHEST W CONTRAST 11/15/2020 1 5:23 EST documented in this encounter Results * CT CHEST W CONTRAST (11/15/2020 15:23 EST) Anatomical Region Laterality Modality Chest Computed Tomogra phy 11/15/2020 15:2 0 EST Narrative 11/15/2020 15:23 EST ? EXAM: CAT SCAN/CHEST WITH CONTRAST ?EX. D/ (1441) ? CLINICAL INFORMATION: ? R91.1 PULMONARY NODULE SEEN @ [facility] [place]ST [place] ? CHEST WITH CONTRAST ? Signs and Symptoms/Comments: ??R91.1 PULMONARY NODULE SEEN @ [facility] [place] LAST [place]AR ? Comparison: Outside CT chest from [facility] ? on 03/08/2019. ? Technique: CT chest was performed with the administration of 75 cc ? intravenous Omnipaque 350 contrast. Multiplanar reformations were ? performed. ? FINDINGS: ? Image Quality: The images are mildly motion degraded. Best study ? obtainable at this time. ? Chest Wall: An implantable cardiac monitoring device has been removed ? from the upper left chest wall compared to 2019. ? Mediastinum: Extensive calcified coronary atherosclerotic plaque is ? present. No mediastinal mass or hemorrhage is identified. The ? pericardium is unremarkable. ? Lymph Nodes: No enlarged mediastinal, hilar, or axillary lymph nodes ? are identified. ? Airways: Unremarkable. ? Lungs: A 4 mm left lower lobe superior segment nodule is stable ? compared to March 2019 and may reflect a normal intrapulmonary lymph ? node (axial series 4 image 120). A subtle tree-in-bud opacity in the ? left upper lobe likely reflects a mild inflammatory process (axial ? series 4 image 158). No suspicious pulmonary nodule is identified, ? however please note sensitivity is reduced somewhat by mild motion ? artifact. Mild patchy groundglass opacities in the dependent portions ? of both lungs are compatible with atelectasis. ? Pleura: No pneumothorax or pleural effusion is present. ? Bones: Mild-moderate cervicothoracic degenerative changes are ? present. ? Upper Abdomen: The visible upper abdomen is unremarkable. ? IMPRESSION: ? 1. ??Stable 4 mm left lower lobe nodule. Per Fleischner Society ? guidelines, no further follow-up is required. ? 2. ??Subtle left upper lobe tree-in-bud opacity, likely reflecting a ? PAGE 1 ? Signed Report ? (CONTINUED) ? mild inflammatory process. Lungs otherwise clear. ? 3. ??Additional incidental findings detailed above. ? REPORT SIGNED IN OTHER VENDOR SYSTEM 11/15/2020 ?Reported By: Tito Abad MD ? CC: ? Transcribed Date/Time: 11/15/2020 (1523) ? Social Media Analyst: ? Printed Date/Time: 11/15/2020 (1523) ? PAGE 2 ? Signed Report ? Procedure Note Tito Abad MD - 11/15/2020 EXAM: CAT SCAN/CHEST WITH CONTRAST EX. D/ (1441) CLINICAL INFORMATION: R91.1 PULMONARY NODULE SEEN @ [facility] [place]ST [place] CHEST WITH CONTRAST Signs and Symptoms/Comments: R91.1 PULMONARY NODULE SEEN @ [facility] [place] LAST YEAR Comparison: Outside CT chest from [facility] on 03/08/2019. Technique: CT chest was performed with the administration of 75 cc intravenous Omnipaque 350 contrast. Multiplanar reformations were performed. FINDINGS: Image Quality: The images are mildly motion degraded. Best study obtainable at this time. Chest Wall: An implantable cardiac monitoring device has beenremoved from the upper left chest wall compared to 2019. Mediastinum: Extensive calcified coronary atherosclerotic plaque is present. No mediastinal mass or hemorrhage is identified. The pericardium is unremarkable. Lymph Nodes: No enlarged mediastinal, hilar, or axillary lymphnodes are identified. Airways: Unremarkable. Lungs: A 4 mm left lower lobe superior segment nodule is stable compared to March 2019 and may reflect a normal intrapulmonary lymph node (axial series 4 image 120). A subtle tree-in-bud opacity inthe left upper lobe likely reflects a mild inflammatory process (axial series 4 image 158). No suspicious pulmonary nodule is identified, however please note sensitivity is reduced somewhat by mild motion artifact. Mild patchy groundglass opacities in the dependentportions of both lungs are compatible with atelectasis. Pleura: No pneumothorax or pleural effusion is present. Bones: Mild-moderate cervicothoracic degenerative changes are present. Upper Abdomen: The visible upper abdomen is unremarkable. IMPRESSION: 1. Stable 4 mm left lower lobe nodule. Per Fleischner Society guidelines, no further follow-up is required. 2. Subtle left upper lobe tree-in-bud opacity, likely reflecting a PAGE 1 Signed Report (CONTINUED) mild inflammatory process. Lungs otherwise clear. 3. Additional incidental findings detailed above. REPORT SIGNED IN OTHER VENDOR SYSTEM 11/15/2020 Reported By: Tito Abad MD CC: Transcribed Date/Time: 11/15/2020 (2036) Social Media Analyst: Printed Date/Time: 11/15/2020 (3339) PAGE 2 Signed Report Vel Santos MD IMG CT ORDERABLES documented in this encounter Visit Diagnoses Not on filedocumented in this encounter Care Teams Crystal Grinder Relationship Specialty Start Date End Date Vel Santos MD PCP - General 10/30/11 03/09/23 Marco Altamirano MD [address] [place] [address] [phone] PCP - General Family Medicine - Primary Care 03/10/23 09/13/23 Marco Aleman MD [address] [facility] [address] [place], [place] [address] PCP - General Emergency Medicine 12/07/23 documented as of this encounter
--- OUTSIDE RECORDS SUMMARY | 2024-07-19 22:13 | XMS_ITS | Encounter Summary ---
Author Organization [facility] Address [address] [place] [address] Care Team Providers Care Bilingual Sales Consultant Name Role Phone Vel Santos MD Primary Care Provider Unava ilable Reason for Visit * Reason Onset Date Comments Immunizations 11/15/2020 shingrix? Encounter Details Date Type Department Care Team (Late st Contact Info) Description 11/15/2020 Telephone [facility] [place] Medicine [facility] [address] , [address] [place], [place] [phone] Vel Santos MD Immunizations (shingrix?) Social History Tobacco Use Types Packs/Day Years [...] Notes * Telephone Encounter - Mika Wasserman - 11/20/2020 1253 EST LDVM: relayed information about medicare coverage and affordability of the Shingrix vaccine. Informed them that it would be his 1st and that a pharmacy would most likely be cheaper, but to check withtheir insurance company. Told them to call back with any additional questions outside costs. * Telephone Encounter - Claudette Maier LPN - 11/16/2020 0800 EST TE to front office, please advise pt on below from TC. If they have questions on insurance coveragethey can call their insurance to find out most affordable place to get vaccine--I believe pharmacy is cheaper for Medicare pts. * Telephone Encounter - Vel Santos MD - 11/15/2020 1722 EST We have no record of shingrix so he would get first shot. If he is on medicare, needs to be in pharmacy due to medicare guidelines. * Telephone Encounter - Sarah Tsang RN - 11/15/[address] Santos, looks like he is due for the 1st Shingrix. Ok for nurse visit for this? * Telephone Encounter - Talisha Arredondo - 11/15/2020 1455 EST Pt's called. Pt is unsure if he has had the first shingrix shot or if he is just due for the 2nd shot. Pt thinks that it would be better based on his insurance to have it done in our office. Please call to schedule NV if appropriate. documented in this encounter Plan of Treatment Upcoming Encounters Date Type Department Care Team (Late st Contact Info) Description 10/04/2024 9:50 EST Appointment [facility] Pre-Surgical Testing [address] [place] [address] [phone] 10/14/2024 11:00 EST Hospital Encounter [facility] OR [address] [place] [address] [phone] Clemente Gerardo MD [address] [place] [address] [phone] 10/14/2024 11:00 EST - 10/14/2024 14:35 EST Surgery [facility] OR [address] [place] [address] [phone] Clemente Gerardo MD [address] [place] [address] [phone] Implantation of inflatable penile prosthesis [14719 (CPT??)] 10/17/2024 9:00 EST Telemedicine [facility] Urology [address] [phone] Nurse Call, [facility] Urology 10/31/2024 15:00 EST Post-op Visit [facility] Urology [address] [phone] Clemente Gerardo MD [address] [place] [address] [phone] 12/06/2024 10:15 EST Office Visit [facility] Ophthalmology [address] [phone] Spike Puentes MD [address] [place] [address] [phone] Scheduled Procedures Name Priority Associated Diagnoses Date/Ti me INSERTION, PENILE PROSTHESIS, INFLATABLE, 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 10/14/2024 11:00 EST documented as of this encounter Visit Diagnoses Not on filedocumented in this encounter Care Teams Bilingual Sales Consultant Relationship Specialty Start Date End Date Vel Santos MD PCP - General 10/30/11 03/09/23 documented as of this encounter
--- OUTSIDE RECORDS SUMMARY | 2024-07-19 22:13 | XMS_ITS | Encounter Summary ---
Author Organization [facility] Address [address] [place] [address] Care Team Providers Care Poultry Scalder Name Role Phone Vel Santos MD Primary Care Provider Unava ilable Reason for Visit * Reason Onset Date Comments Knee Pain 01/16/2021 Encounter Details Date Type Department Care Team (Late st Contact Info) Description 01/16/2021 Telephone [facility] - [facility] [place] Family Medicine [place] [phone] [address], [address] [place], [place] [phone] Vel Santos MD Knee Pain Social History Tobacco Use Types Packs/Day Years [...] encounter Miscellaneous Notes * Telephone Encounter - Jj Joseph - 01/17/2021 0902 EDT 2pm ended up being booked, so we kept at 11:30 but changed to office visit, Xin notified * Telephone Encounter - Raina Trevino RN - 01/17/2021 0841 EDT Inadvertently sent to TC, resending to Front * Telephone Encounter - Raina Trevino RN - 01/17/2021 0840 EDT To Front to please reschedule 01/22 11:30 zoom to 2:00 OV, TC to room * Telephone Encounter - Vel Santos MD - 01/16/20212028 EDT In person visit, next Thursday at 2pm. I will room * Telephone Encounter - Corinne Banks DO - 01/16/2021 1826 EDT Noted. * Telephone Encounter - Raina Trevino RN - 01/16/2021 1652 EDT Pt advised to go to [facility] to have his knee evaluated. Pt was noncommittal to going to [facility]. SM-FYI TC-FYI * Telephone Encounter - Jj Joseph - 01/16/2021 1557 EDT Pt was walking along and left knee started working, no injury, it has been a week and a half but it is NOT getting better, getting worse, we made a zoom for 01/22 but she is worried he has a torn acl and might need to be seen sooner. Appt on waitlist, pain worst down the side of left knee, now it hurts even when he is not on it documented in this encounter Plan of Treatment Upcoming Encounters Date Type Department Care Team (Late st Contact Info) Description 10/04/2024 9:50 EST Appointment [facility] Pre-Surgical Testing [address] [place] [address] [phone] 10/14/2024 11:00 EST Hospital Encounter [facility] OR [address] [place] [address] [phone] Clemente Gerardo MD [address] [place] [address] [phone] 10/14/2024 11:00 EST - 10/14/2024 14:35 EST Surgery [facility] OR [address] [place] [address] [phone] Clemente Gerardo MD [address] [place] [address] [phone] Implantation of inflatable penile prosthesis [21075 (CPT??)] 10/17/2024 9:00 EST Telemedicine [facility] Urology [address] [phone] Nurse Call, [facility] Urology 10/31/2024 15:00 EST Post-op Visit [facility] Urology [address] [phone] lCemente Gerardo MD [address] [place] [address] [phone] 12/06/2024 10:15 EST Office Visit [facility] Ophthalmology - [place] [address] [place] [address] Spike Puentes MD [address] [place] [phone] Scheduled Procedures Name Priority Associated Diagnoses Date/Ti me INSERTION, PENILE PROSTHESIS, INFLATABLE, 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 10/14/2024 11:00 EST documented as of this encounter Visit Diagnoses Not on filedocumented in this encounter Care Teams Poultry Scalder Relationship Specialty Start Date End Date Vel Santos MD PCP - General 10/30/11 03/09/23 documented as of this encounter
--- OUTSIDE RECORDS SUMMARY | 2024-07-19 22:13 | XMS_ITS | Encounter Summary ---
Author Organization [facility] Address [address] [place] [address] Care Team Providers Care Analytical Data Miner Name Role Phone Vel Santos MD Primary Care Provider Unava ilable Reason for Visit * Reason Onset Date Comments Immunizations 02/26/2021 Encounter Details Date Type Department Care Team (Late st Contact Info) Description 02/26/2021 Telephone [facility] [address] , [address] [place], [place] [phone] Vel Santos MD Immunizations Social History Tobacco [...] Dispensed Refills Start Date End Da te zoster vaccine recombinant, PF, (SHINGRIX, PF,) IM Injection - vial GIVE ONE NOW, AND REPEAT IN 2-6 MONTHS. 1 Each 1 02/26/2021 02/22/2023 documented in this encounter Miscellaneous Notes * Telephone Encounter - Vel Santos MD - 02/26/2021 1818 EDT Printed script so he could shop for best berry documented in this encounter Plan of Treatment Upcoming Encounters Date Type Department Care Team (Late st Contact Info) Description 10/04/2024 9:50 EST Appointment [facility] Pre-Surgical Testing [address] [place] [address] [phone] 10/14/2024 11:00 EST Hospital Encounter [facility] OR [address] [place] [address] [phone] Clemente Gerardo MD [address] [place] [address] [phone] 10/14/2024 11:00 EST - 10/14/2024 14:35 EST Surgery [facility] OR [address] [place] [address] [phone] Clemente Gerardo MD [address] [place] [address] [phone] Implantation of inflatable penile prosthesis [64018 (CPT??)] 10/17/2024 9:00 EST Telemedicine [facility] Urology [address] [phone] Nurse Call, [facility] Urology 10/31/2024 15:00 EST Post-op Visit [address] [phone] Clemente Gerardo MD [address] [place] [address] [phone] 12/06/2024 10:15 EST Office Visit [facility] Ophthalmology [facility] [address] [place] [address] Spike Puentes MD [address] [place] [phone] Scheduled Procedures Name Priority Associated Diagnoses Date/Ti me INSERTION, PENILE PROSTHESIS, INFLATABLE, 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 10/14/2024 11:00 EST documented as of this encounter Visit Diagnoses Not on filedocumented in this encounter Care Teams Analytical Data Miner Relationship Specialty Start Date End Date Vel Santos MD PCP - General 10/30/11 03/09/23 documented as of this encounter
--- OUTSIDE RECORDS SUMMARY | 2024-07-19 22:13 | XMS_ITS | Encounter Summary ---
Author Organization [facility] Address [address] [place] [address] Care Team Providers Care Analytical Data Miner Name Role Phone Vel Santos MD Primary Care Provider Marco Cowart MD Primary Care Provider [phone] Marco Aleman MD Primary Care Provider [phone] Encounter Details Date Type Department Care Team (Late st Contact Info) Description 11/16/2020 Results Only Imaging [facility] Radiology Results [address] [place], [place] [phone] Vel Santos MD Social History Tobacco Use [...] [facility] Pre-Surgical Testing [address] [place] [address] [phone] 10/14/2024 11:00 EST Hospital Encounter [facility] OR [address] [place] [address] [phone] Clemente Gerardo MD [address] [place] [address] [phone] 10/14/2024 11:00 EST - 10/14/2024 14:35 EST Surgery [facility] OR [address] [place] [address] [phone] Clemente Gerardo MD [address] [place] [address] [phone] Implantation of inflatable penile prosthesis [95184 (CPT??)] 10/17/2024 9:00 EST Telemedicine [facility] Urology [address] [phone] Nurse Call, [facility] Urology 10/31/2024 15:00 EST Post-op Visit [facility] Urology [address] [phone] Clemente Gerardo MD [address] [place] [address] [phone] 12/06/2024 10:15 EST Office Visit [facility] Ophthalmology [address] [phone] Spike Puentes MD [address] [place] [address] [phone] Scheduled Procedures Name Priority Associated Diagnoses Date/Ti me INSERTION, PENILE PROSTHESIS, INFLATABLE, 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 10/14/2024 11:00 EST documented as of this encounter Procedures Procedure Name Priority Date/Time Associated Diagnosis Comments XR THORACIC SPINE 3 VIEWS 11/16/2020 9:44 EST documented in this encounter Results * XR THORACIC SPINE 3 VIEWS (11/16/2020 9:44 EST) Anatomical Region Laterality Modality Spine Computed Radiogr aphy 11/16/2020 9:41 EST Narrative 11/16/2020 9:44 EST ? EXAM: RADIOLOGY/THORACIC SPINE 3 VIEW ? EX. D/ (1413) ? CLINICAL INFORMATION: ? M54.6 THORACIC SPINE PAIN ? PROBABLE OSTEOARTHRITIC AREA; WILL R/O ? MET, FRACTURE ? INDICATION: Thoracic spine pain: ? COMPARISON: Thoracic spine radiograph 2008. ? TECHNIQUE: AP, lateral swimmer's and lateral views of the thoracic ? spine. ? FINDINGS: There is mild degenerative disc disease throughout the ? thoracic spine. There is minimal accentuation of the thoracic ? kyphosis and there is a minimal thoracic scoliosis. No fracture or ? subluxation is identified. ? IMPRESSION: Degenerative spondylosis and minimal scoliosis of the ? thoracic spine. ? REPORT SIGNED IN OTHER VENDOR SYSTEM 11/16/2020 ?Reported By: Philip Bain MD ? CC: ? Transcribed Date/Time: 11/16/2020 (4944) ? Environmental Monitoring Specialist: ? Printed Date/Time: 11/16/2020 (2560) ? PAGE 1 ? Signed Report ? Procedure Note Philip Bain MD - 11/16/2020 EXAM: RADIOLOGY/THORACIC SPINE 3 VIEW EX. D/ (1413) CLINICAL INFORMATION: M54.6 THORACIC SPINE PAIN PROBABLE OSTEOARTHRITIC AREA; WILL R/O MET, FRACTURE INDICATION: Thoracic spine pain: COMPARISON: Thoracic spine radiograph 2008. TECHNIQUE: AP, lateral swimmer's and lateral views of the thoracic spine. FINDINGS: There is mild degenerative disc disease throughout the thoracic spine. There is minimal accentuation of the thoracic kyphosis and there is a minimal thoracic scoliosis. No fracture or subluxation is identified. IMPRESSION: Degenerative spondylosis and minimal scoliosis of the thoracic spine. REPORT SIGNED IN OTHER VENDOR SYSTEM 11/16/2020 Reported By: Philip Bain MD CC: Transcribed Date/Time: 11/16/2020 (0944) Environmental Monitoring Specialist: Printed Date/Time: 11/16/2020 (0902) PAGE 1 Signed Report Vel Santos MD IMG DIAGNOSTIC IMAGI NG ORDERABLES documented in this encounter Visit Diagnoses Not on filedocumented in this encounter Care Teams Analytical Data Miner Relationship Specialty Start Date End Date Vel Santos MD PCP - General 10/30/11 03/09/23 Marco Altamirano MD [address] [place] [address] [phone] PCP - General Family Medicine - Primary Care 03/10/23 09/13/23 Marco Aleman MD [address] [place] [address] [address] [place] [address] PCP - General Emergency Medicine 12/07/23 documented as of this encounter
--- OUTSIDE RECORDS SUMMARY | 2024-07-19 22:13 | XMS_ITS | Encounter Summary ---
Author Organization [facility] Address [address] [place] [address] Care Team Providers Care Student Teaching Coordinator Name Role Phone Vel Santos MD Primary Care Provider Unava ilable Reason for Visit * Reason Comments Knee Pain Encounter Details Date Type Department Care Team (Late st Contact Info) Description 01/22/2021 11:30 EDT Office Visit [facility] Family Medicine [facility] [address], [address] [place] [address] Vel Santos MD Recurrent left knee instability (Primary Dx); Morbid obesity due to excess calories ([facility]) Social History Tobacco Use Types Packs/Day Years [...] Sign Reading Time Taken Comments Blood Pressure 120/82 01/22/2021 1128 EDT Pulse 69 01/22/2021 1128 EDT Temperature - - Respiratory Rate - - Oxygen Saturation - - Inhaled Oxygen Concentration - - Weight 124.7 kg (275 lb) 01/22/2021 1128 EDT Height - - Body Mass Index - - documented in this encounter Functional Status Functional Status Response Date of Assess ment Because of a physical, menta l, or emotional condition, does this person have difficulty doing errands alone such as visiting a doctor's office or shopping? No 03/02/2018 documented as of this encounter Progress Notes * Vel Santos MD - 01/22/2021 1130 EDT [facility] Primary Care Subjective: Chief Complaint(s): Knee Pain HPI: This patient is here today with left knee instability. This was an issue in the past to a minor degree and with no subsequent injury he now has a very unstable knee. He has on a brace, and without it he says his knee will collapse laterally with walking every five minutes unless he is careful.He has pain in the lateral hamstrings as well with this. He has a slight effusion noted with difficulty flexing his knee. 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 2) is on a modified keto diet. No wt drop with it. Was at 299 in past, starting diet at 275. Concerned about fatty liver, stress on joints, heart issues etc all with his weight a factor. I have reviewed patient's tobacco history: reports that he has quit smoking. He has never used smokeless tobacco. Allergies Allergen Reactions ??? Other - See Comments ??? Cyclobenzaprine Other reaction(s): Unknown ??? Ibuprofen Other reaction(s): edema ??? Lisinopril Swelling of tongue ??? Naproxen Sodium Other reaction(s): edema ??? Sulfa (Sulfonamide Antibiotics) ??? Tramadol Other reaction(s): DIZZINESS Current Outpatient Medications: ??? amLODIPine (NORVASC) 10 mg tablet, Take 1 Tab by mouth daily for 90 days., Disp: 90 Tab, Rfl: 3 ??? aspirin 325 mg tablet, Take 325 mg by mouth daily., Disp: , Rfl: ??? atorvastatin (LIPITOR) 20 mg tablet, Take 3 Tabs by mouth at bedtime for 90 days., Disp: 270 Tab, Rfl: 3 ??? atorvastatin (LIPITOR) 20 mg tablet, , Disp: , Rfl: ??? blood glucose meter, Glucose monitor,Sig: test once a day once a day, Disp: , Rfl: ??? budesonide-formoterol HFA (SYMBICORT) 80-4.5 mcg/actuation HFA aerosol inhaler inhaler, Inhale 2 Puffs as directed 2 times daily., Disp: , Rfl: ??? buPROPion (WELLBUTRIN SR) 150 mg SR tablet, TAKE 1 TABLET BY MOUTH ONCE DAILY IN THE MORNING, Disp: 90 Tab, Rfl: 3 ??? Cholecalciferol, Vitamin D3, (VITAMIN D3) 2,000 unit capsule, Take by mouth daily., Disp: , Rfl: ??? clopidogreL (PLAVIX) 75 mg tablet, Take 1 tablet by mouth once daily, Disp: 90 Tab, Rfl: 3 ??? DIABETIC SUPPLIES, MISCELLAN. MISC, Syringe 3cc, Disp: , Rfl: ??? diazePAM (VALIUM) 5 mg tablet, 1-2 tabs 90 minutes before MRI- will need a pile driver engineer, Disp: 2 Tab,Rfl: 0 ??? econazole nitrate 1 % cream, Apply 1 application topically 2 times daily as needed., Disp: , Rfl: ??? escitalopram oxalate (LEXAPRO) 10 mg tablet, , Disp: , Rfl: ??? lamoTRIgine (LAMICTAL) 25 mg tablet, TAKE 3 TABLETS BY MOUTH TWICE DAILY, Disp: 540 Tab, Rfl: 3 ? ? LANCETS & BLOOD GLUCOSE STRIPS [facility] [place], test strips and lancets for glucose monitor , Sig: test once a day test once a day, Disp: , Rfl: ??? MEDICAL MARIJUANA, , Disp: , Rfl: ??? nitroGLYCERIN (NITROSTAT) 0.4 mg SL tablet, Place 1 Tab under the tongue as needed., Disp: , Rfl: ??? nystatin (MYCOSTATIN) ointment, Apply 1 application topically 3 times daily as needed., Disp: ,Rfl: ??? Utizu-5-GIN-EPA-Fish Oil 1,000 (120-180) mg capsule, Take 1,000 mg by mouth., Disp: , Rfl: ??? pantoprazole (PROTONIX) 40 mg tablet, Take 1 Tab by mouth daily for 360 days., Disp: 90 Tab, Rfl: 3 ??? pneumococcal vaccine, PPV23, (PNEUMOVAX) 25 mcg/0.5 mL syringe, Inject 0.5 mL into the muscle once for 1 dose., Disp: 1 mL, Rfl: 0 ??? ubidecarenone/vitamin E mixed (COQ10 SG 100 ORAL), Take by mouth daily., Disp: , Rfl: ??? zoster vaccine recombinant, PF, (SHINGRIX, PF,) IM Injection - vial, GIVE ONE NOW, AND REPEAT IN 2-6 MONTHS., Disp: 1 Each, Rfl: 1 Past Medical History: Diagnosis Date ??? Amblyopia per pt-left eye ??? Cerebral artery occlusion with cerebral infarction (HCC-CMS) ??? Hyperlipidemia ??? Hypertension ??? IA (myocardial infarction) ([facility]) ??? Rheumatoid disease ([facility]) Family History Problem Relation Age of Onset ??? Macular Degeneration Neg Hx ??? Retinal Detachment Neg Hx ??? Glaucoma Neg Hx Past Surgical History: Procedure Laterality Date ??? CARDIAC CATHERIZATION 12/2004 normal - Dr. [place] [facility] ??? COLONOSCOPY 12/2004 WNL - Dr. Turcios f/u 10 yrs ??? RADICAL PROSTATECTOMY 12/2004 Laparoscopic radical prostatectomy, umbilical hernia repair - Dr. Encinas [facility] ??? SINUS SURGERY nasal / sinus surgery Social History Socioeconomic History ??? Marital status: Spouse name: Not on file ??? Number of children: Not on file ??? Years of education: Not on file ??? Highest education level: Not on file Occupational History ??? Not on file Social Needs ??? Financial resource strain: Not on file ??? Food insecurity Worry: Not on file Inability: Not on file ??? Transportation needs Medical: Not on file Non-medical: Not on file Tobacco Use ??? Smoking status: Former Smoker ??? Smokeless tobacco: Never Used Substance and Sexual Activity ??? Alcohol use: Yes Alcohol/week: 7.0 standard drinks Types: 7 Glasses of wine per week ??? Drug use: Not on file ??? Sexual activity: Not on file Lifestyle ??? Physical activity Days per week: Not on file Minutes per session: Not on file ??? Stress: Not on file Relationships ??? Social connections Talks on phone: Not on file Gets together: Not on file Attends yazidism service: Not on file Active member of club or organization: Not on file Attends meetings of clubs or organizations: Not on file Relationship status: Not on file ??? Intimate partner violence Fear of current or ex partner: Not on file Emotionally abused: Not on file Physically abused: Not on file Forced sexual activity: Not on file Other Topics Concern ??? Not on file Social History Narrative ??? Not on file I have reviewed current problem list and current medications. ROS: ROS See hpi Objective: Examination: Vitals: BP 120/82 (BP Cuff Location: Right arm, BP Patient Position: Sitting, BP Cuff Sizes: Adult, large) Pulse 69 Wt (!) 124.7 kg (275 lb) There is no height or weight on file to calculate BMI. Physical Exam Bright man, looks younger than stated age Left knee: well muscled. Reduced flexion and extension. Sl pain in hamstrings laterally. He has a sanchez cyst. Negative Jeanne's . Hard to assess ACL given guarding Data reviewed with patient none Assessment & Plan: 1. Recurrent left knee instability AMB CONS/FOLLOW UP ORTHOPEDICS ORtho consult needed. etiology unclear but degree of disability is pronounced. MRI, possible surgery? continue now with brace, walking stick 2. Morbid obesity due to excess calories ([facility]) discussed what we know about sucessful weight loss. Goal of stable weight until knee is fixed, thenmore activity Vel Santos MD documented in this encounter Plan of Treatment Upcoming Encounters Date Type Department Care Team (Late st Contact Info) Description 10/04/2024 9:50 EST Appointment [facility] Pre-Surgical Testing [address] [place] [address] [phone] 10/14/2024 11:00 EST Hospital Encounter [facility] OR [address] [place], [place] [phone] Clemente Gerardo MD [address] [facility], [address] 5 [place] [phone] 10/14/2024 11:00 EST - 10/14/2024 14:35 EST Surgery [facility] OR [address] [place], [place] 625[address] Clemente Gerardo MD [address] [place] [address] [phone] Implantation of inflatable penile prosthesis [62949 (CPT??)] 10/17/2024 9:00 EST Telemedicine [facility] Urology [address] [phone] Nurse Call, [facility] Urology 10/31/2024 15:00 EST Post-op Visit [facility] [phone] Clemente Gerardo MD [address] [place] [address] [phone] 12/06/2024 10:15 EST Office Visit [address] [address] Spike Puentes MD [address] [place] [phone] Scheduled Procedures Name Priority Associated Diagnoses Date/Ti me INSERTION, PENILE PROSTHESIS, INFLATABLE, 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 10/14/2024 11:00 EST documented as of this encounter Visit Diagnoses Diagnosis Recurrent left knee instability- Primary Other joint derangement, not elsewhere classified, lower leg Morbid obesity due to excess calories ([facility]) Erectile dysfunction after radical prostatectomy documented in this encounter Care Teams Student Teaching Coordinator Relationship Specialty Start Date End Date Vel Santos MD PCP - General 10/30/11 03/09/23 documented as of this encounter
--- OUTSIDE RECORDS SUMMARY | 2024-07-19 22:13 | XMS_ITS | Encounter Summary ---
Author Organization [facility] Address [address] [place] [address] Care Team Providers Care Mail Order Clerk Name Role Phone Vel Santos MD Primary Care Provider Unava ilable Reason for Visit * Reason Onset Date Comments Medication Management 09/05/2021 Fax Multip le Refills Encounter Details Date Type Department Care Team (Late st Contact Info) Description 09/05/2021 Telephone [facility] Family Medicine [facility] [address] , [address] [place] [address] Vel Santos MD Medication Management (Fax Multiple Refills) Social History Tobacco Use Types Packs/Day Years [...] Dispensed Refills Start Date End Da te pantoprazole (PROTONIX) 40 mg tablet Take 1 Tablet by mouth daily for 360 days. 90 Tablet 3 09/05/2021 10/08/2021 lamoTRIgine (LAMICTAL) 25 mg tablet Take 3 Tablets by mouth 2 times daily. 540 Tablet 3 09/05/2021 12/26/2021 clopidogreL (PLAVIX) 75 mg tabletIndications:Dyslip idemia Take 1 Tablet by mouth daily. 90 Tablet 3 09/05/2021 10/08/2021 buPROPion (WELLBUTRIN SR) 150 mg SR tablet TAKE 1 TABLET BY MOUTH ONCE DAILY IN THE MORNING 90 Tablet 3 09/05/2021 04/02/2022 amLODIPine (NORVASC) 10 mg tablet Take 1 Tablet by mouth daily for 90 days. 90 Tablet 3 09/05/2021 10/08/2021 documented in this encounter Miscellaneous Notes * Telephone Encounter - Claudette Maier LPN - 09/05/2021 0919 EDT [facility] MEDICATION REFILL Medication: multiple Medication, dose, directions verified: yes Pharmacy verified: yes Last office visit: 01/22/2021 Next office visit: none Last BMP drawn 11/15/2020, results WNL at that time. * Telephone Encounter - Talisha Arredondo - 09/05/2021 0830 EDT Received Fax Clopidogrel 75MG Tablet Pantoprazole 40MG Tablet, delayed release Amlodipine 10MG Tablet Bupropion HCL SR 150MG Tablet 12 HR Sustained-release Lamotrigine 25MG tablet [facility] documented in this encounter Plan of Treatment Upcoming Encounters Date Type Department Care Team (Late st Contact Info) Description 10/04/2024 9:50 EST Appointment [facility] Pre-Surgical Testing [address] [place], [place] [phone] 10/14/2024 11:00 EST Hospital Encounter [facility] OR [address] [place], [place] [phone] Clemente Gerardo MD [address] [phone] 10/14/2024 11:00 EST - 10/14/2024 14:35 EST Surgery [facility] OR [address] [place] [address] [phone] Clemente Gerardo MD [address] [place] [address] [phone] Implantation of inflatable penile prosthesis [28506 (CPT??)] 10/17/2024 9:00 EST Telemedicine [address] [phone] Nurse Call, [facility] Urology 10/31/2024 15:00 EST Post-op Visit [address] [phone] Clemente Gerardo MD [address] [place] [phone] 12/06/2024 10:15 EST Office Visit [facility] Ophthalmology [address] [address] Spike Puentes MD [address] [place] [phone] Scheduled Procedures Name Priority Associated Diagnoses Date/Ti me INSERTION, PENILE PROSTHESIS, INFLATABLE, 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 10/14/2024 11:00 EST documented as of this encounter Visit Diagnoses Diagnosis Dyslipidemia- Primary Other and unspecified hyperlipidemia Erectile dysfunction after radical prostatectomy documented in this encounter Discontinued Medications Medication Sig Discontinue Reason Start Date End Da te amLODIPine (NORVASC) 10 mg tablet Take 1 Tab by mouth daily for 90 days. Reorder 11/13/2020 09/05/2021 pantoprazole (PROTONIX) 40 mg tablet Take 1 Tab by mouth daily for 360 days. Reorder 11/13/2020 09/05/2021 clopidogreL (PLAVIX) 75 mg tabletIndications:Dyslip idemia Take 1 tablet by mouth once daily Reorder 12/07/2020 09/05/2021 lamoTRIgine (LAMICTAL) 25 mg tablet TAKE 3 TABLETS BY MOUTH TWICE DAILY Reorder 12/07/2020 09/05/2021 buPROPion (WELLBUTRIN SR) 150 mg SR tablet TAKE 1 TABLET BY MOUTH ONCE DAILY IN THE MORNING Reorder 01/31/2021 09/05/2021 documented as of this encounter Care Teams Mail Order Clerk Relationship Specialty Start Date End Date Vel Santos MD PCP - General 10/30/11 03/09/23 documented as of this encounter
--- OUTSIDE RECORDS SUMMARY | 2024-07-19 22:13 | XMS_ITS | Encounter Summary ---
Author Organization [facility] Address [address] [place] [address] Care Team Providers Care Photo Mask Cleaner Name Role Phone Vel Santos MD Primary Care Provider Unava ilable Reason for Visit * Reason Onset Date Comments Prior Auth, Medication 10/31/2020 Encounter Details Date Type Department Care Team (Late st Contact Info) Description 10/31/2020 Telephone [facility] [address], [address] [place] [address] Raina Trevino RN Prior Auth, Medication Social History Tobacco Use Types Packs/Day Years [...] Telephone Encounter - Raina Trevino RN - 11/09/2020 1151 EST Another PA request was received. On Cover mymed's the PA said , this insurance writer attempted to renew it and it said no eligibility found. Spoke to Nikky Connor, to see if pt had already picked up the med. Geeta stated the med has notbeen picked up and the pt has new insurance. She stated the med will be $4 and she is changing it to a valenzuela sale. * Telephone Encounter - Raina Trevino RN - 10/31/2020 1214 EST Cover my meds sent fax requesting PA reji streeter 5mg. Hyatt [id number]. PA completed and submitted electronically. documented in this encounter Plan of Treatment Upcoming Encounters Date Type Department Care Team (Late st Contact Info) Description 10/04/2024 9:50 EST Appointment [facility] Pre-Surgical Testing [address] [place] [address] [phone] 10/14/2024 11:00 EST Hospital Encounter [facility] OR [address] [place] [address] [phone] Clemente Gerardo MD [address] [place] [address] [phone] 10/14/2024 11:00 EST - 10/14/2024 14:35 EST Surgery [facility] OR [address] [place] [address] [phone] Clemente Gerardo MD [address] [place] [phone] Implantation of inflatable penile prosthesis [33740 (CPT??)] 10/17/2024 9:00 EST Telemedicine [facility] - [address] [phone] Nurse Call, [facility] Urology 10/31/2024 15:00 EST Post-op Visit [facility] - [facility] [address] [place], [place] [address] Clemente Gerardo MD 111 [facility], [address] [place] [phone] 12/06/2024 10:15 EST Office Visit [facility] [address] [place] [address] Spike Puentes MD [address] [place] [phone] Scheduled Procedures Name Priority Associated Diagnoses Date/Ti me INSERTION, PENILE PROSTHESIS, INFLATABLE, 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 10/14/2024 11:00 EST documented as of this encounter Visit Diagnoses Not on filedocumented in this encounter Care Teams Photo Mask Cleaner Relationship Specialty Start Date End Date Vel Santos MD PCP - General 10/30/11 03/09/23 documented as of this encounter
--- OUTSIDE RECORDS SUMMARY | 2024-07-19 22:13 | XMS_ITS | Encounter Summary ---
Author Organization [facility] Address [address] [place] [address] Care Team Providers Care Sleep Scientist Name Role Phone Vel Santos MD Primary Care Provider Unava ilable Reason for Visit * Reason Onset Date Comments Medications Refill 12/07/2020 Encounter Details Date Type Department Care Team (Late st Contact Info) Description 12/07/2020 Refill [facility] Medicine [facility] [address] , [address] [place], [place] [phone] Vel Santos MD Medications Refill Social History [...] Dispensed Refills Start Date End Da te atorvastatin (LIPITOR) 20 mg tablet Take 3 Tabs by mouth at bedtime for 90 days. 270 Tab 3 12/07/2020 03/07/2021 lamoTRIgine (LAMICTAL) 25 mg tablet TAKE 3 TABLETS BY MOUTH TWICE DAILY 540 Tab 3 12/07/2020 09/05/2021 clopidogreL (PLAVIX) 75 mg tabletIndications:Dyslipi demia Take 1 tablet by mouth once daily 90 Tab 3 12/07/2020 09/05/2021 buPROPion (WELLBUTRIN SR) 150 mg SR tablet TAKE 1 TABLET BY MOUTH ONCE DAILY IN THE MORNING 90 Tab 3 12/07/2020 01/31/2021 documented in this encounter Miscellaneous Notes * Telephone Encounter - Mahnaz Mcgovern RN - 12/07/2020 1555 EST Last ov 11/13/20, no follow up scheduled. Tabbed all x 90 day supplies. * Telephone Encounter - Sharron Hood - 12/07/2020 1352 EST Patient's spouse calling the Rx line requesting refills of the following medications: Clopidogrel 75mg tablets Buproprion ER-SR 150mg tablets Atorvastatin 20mg tablets Lamotrigine 25mg tablets - patient's spouse states that he only received a 30- day supply for his last refill; patient takes 6 tabs daily, so they are requesting 180-day supply with refills. All other refills are 90-days Pharmacy: [facility] documented in this encounter Plan of Treatment Upcoming Encounters Date Type Department Care Team (Late st Contact Info) Description 10/04/2024 9:50 EST Appointment [facility] Pre-Surgical Testing [address] [place] [address], [place] [phone] 10/14/2024 11:00 EST Hospital Encounter [facility] OR [address] [place], [place] [phone] Clemente Gerardo MD 111 [facility], Level [address] [place] [phone] 10/14/2024 11:00 EST - 10/14/2024 14:[address] [facility] OR [address] [place] [address] [phone] Clemente Gerardo MD [address] [place] [address] [address] [place] [phone] Implantation of inflatable penile prosthesis [11292 (CPT??)] 10/17/2024 9:00 EST Telemedicine [facility] Urology [address] [phone] Nurse Call, [facility] Urology 10/31/2024 15:00 EST Post-op Visit [address] [phone] Clemente Gerardo MD [address] [place] [address] [phone] 12/06/2024 10:15 EST Office Visit [address] [address] Spike Puentes MD [address] [place] [address] [phone] Scheduled Procedures Name Priority Associated Diagnoses Date/Ti [...] Take 1 Tab by mouth every morning. 11/05/2020 12/07/2020 clopidogreL (PLAVIX) 75 mg tabletIndications:Dyslip idemia Take 1 Tab by mouth daily for 360 days. 12/26/2019 12/07/2020 lamoTRIgine (LAMICTAL) 25 mg tablet Take 3 Tabs by mouth 2 times daily. 11/05/2020 12/07/2020 atorvastatin (LIPITOR) 20 mg tablet Take 3 Tabs by mouth at bedtime for 90 days. Reorder 02/14/2020 12/07/2020 documented as of this encounter Care Teams Sleep Scientist Relationship Specialty Start Date End Date Vel Santos MD PCP - General 10/30/11 03/09/23 documented as of this encounter
--- OUTSIDE RECORDS SUMMARY | 2024-07-19 22:13 | XMS_ITS | Encounter Summary ---
Author Organization [facility] Address [address] [place] [address] Care Team Providers Care Sales Estimator Name Role Phone Vel Santos MD Primary Care Provider Unava ilable Reason for Visit * Reason Onset Date Comments Medications Refill 11/05/2020 Encounter Details Date Type Department Care Team (Late st Contact Info) Description 11/05/2020 Refill [facility] Medicine [facility] [address] , [address] [place], [place] [phone] Vel Santos MD Medications Refill Social History [...] Tab by mouth every morning. 90 Tab 11/05/2020 12/07/2020 lamoTRIgine (LAMICTAL) 25 mg tablet Take 3 Tabs by mouth 2 times daily. 180 Tab 11/05/2020 12/07/2020 amLODIPine (NORVASC) 5 mg tablet Take 1 Tab by mouth daily. 90 Tab 4 11/05/2020 11/13/2020 documented in this encounter Miscellaneous Notes * Telephone Encounter - Claudette Maier LPN - 11/05/2020 1537 EST [facility] MEDICATION REFILL Medication: multiple Medication, dose, directions verified: yes Pharmacy verified: yes Last office visit: 07/31/2020 Next office visit: none * Telephone Encounter - Jj Joseph - 11/05/2020 1423 EST Refill lamotragine to [facility], 90 day supply with refills. Can the amlodipine and bupropion be sent to [facility]? They are not using [facility] anymore documented in this encounter Plan of Treatment Upcoming Encounters Date Type Department Care Team (Late st Contact Info) Description 10/04/2024 9:50 EST Appointment [facility] Pre-Surgical Testing [address] [place] [phone] 10/14/2024 11:00 EST Hospital Encounter [facility] OR [address] [place] [address] [phone] Clemente Gerardo MD [address] [place] [phone] 10/14/2024 11:00 EST - 10/14/2024 14:35 EST Surgery [facility] OR [address] [place] [address] [phone] Clemente Gerardo MD [address] [place] [address] [phone] Implantation of inflatable penile prosthesis [68175 (CPT??)] 10/17/2024 9:00 EST Telemedicine [address] [phone] Nurse Call, [facility] Urology 10/31/2024 15:00 EST Post-op Visit [address] [phone] Clemente Gerardo MD [address] [facility], [facility] 5 [place] [phone] 12/06/2024 10:15 EST Office Visit [address] [phone] Spike Puentes MD [address] [place] [phone] Scheduled Procedures Name Priority Associated Diagnoses Date/Ti me INSERTION, PENILE PROSTHESIS, INFLATABLE, 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 10/14/2024 11:00 EST documented as of this encounter Visit Diagnoses Not on filedocumented in this encounter Discontinued Medications Medication Sig Discontinue Reason Start Date End Da te amLODIPine (NORVASC) 5 mg tablet Take 1 Tab by mouth daily. Reorder 10/30/2020 11/05/2020 lamoTRIgine (LAMICTAL) 25 mg tablet Take 3 Tabs by mouth 2 times daily. Reorder 10/25/2020 11/05/2020 buPROPion (WELLBUTRIN SR) 150 mg SR tablet Take 1 Tab by mouth every morning. Reorder 10/30/2020 11/05/2020 documented as of this encounter Care Teams Sales Estimator Relationship Specialty Start Date End Date Vel Santos MD PCP - General 10/30/11 03/09/23 documented as of this encounter
--- OUTSIDE RECORDS SUMMARY | 2024-07-19 22:13 | XMS_ITS | Encounter Summary ---
Author Organization [facility] Address [address] [place] [address] Care Team Providers Care Heel Shaver Name Role Phone Vel Santos MD Primary Care Provider Unava ilable Reason for Visit * Reason Onset Date Comments Dizziness 07/26/2020 Returning Call 07/26/2020 Encounter Details Date Type Department Care Team (Late st Contact Info) Description 07/26/2020 Telephone [facility] Family Medicine [facility] [address] [place], [place] [phone] Vel Santos MD Dizziness; Returning Call Social History Tobacco Use Types Packs/Day Years [...] encounter Miscellaneous Notes * Telephone Encounter - Brenna Thomas RN - 07/26/2020 6252 EDT He said TC knows about the spells I have that I see a neurologist for, but but had a dizzy spell yesterday and today that was different,lasted about 15 - 20 min, both times he was working over his head with neck bent back, no sob or chest pain,also large areas of bruising over the last month,abd, leg arm, doesn t remember any injury, no more fatiged than usual , is trying to stay well hydrated, Ischeduled him for 07/31 with instructions to call with any worsening or new symtoms * Telephone Encounter - Felicia Celis - 07/26/2020 1554 EDT Xin calling back for patient. He accidentally hung up on nurse when she called. Please try him again. * Telephone Encounter - Brenna Thomas RN - 07/26/2020 1542 EDT na * Telephone Encounter - Jada Pitts - 07/26/2020 1418 EDT Patients blood pressure is at 152/90 today. Patient is dizzy. documented in this encounter Plan of Treatment Upcoming Encounters Date Type Department Care Team (Late st Contact Info) Description 10/04/2024 9:[address] [facility] Pre-Surgical Testing [address] [place] [place], [place] [address] 10/14/2024 11:00 EST Hospital Encounter [facility] OR [address] [place], [place] [phone] Clemente Gerardo MD [address] [facility], Level [address] [place] [phone] 10/14/2024 11:00 EST - 10/14/2024 14:35 EST Surgery [facility] OR [address] [place] [address] [phone] Clemente Gerardo MD [address] [place] [address] 5 [place] [phone] Implantation of inflatable penile prosthesis [04298 (CPT??)] 10/17/2024 9:00 EST Telemedicine [facility] [phone] Nurse Call, [facility] Urology 10/31/2024 15:00 EST Post-op Visit [address] [phone] Clemente Gerardo MD [address] [place] [phone] 12/06/2024 10:15 EST Office Visit [facility] [address] [place] [address] Spike Puentes MD [address] [place] [phone] Scheduled Procedures Name Priority Associated Diagnoses Date/Ti me INSERTION, PENILE PROSTHESIS, INFLATABLE, 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 10/14/2024 11:00 EST documented as of this encounter Visit Diagnoses Not on filedocumented in this encounter Care Teams Heel Shaver Relationship Specialty Start Date End Date Vel Santos MD PCP - General 10/30/11 03/09/23 documented as of this encounter
--- OUTSIDE RECORDS SUMMARY | 2024-07-19 22:13 | XMS_ITS | Encounter Summary ---
Author Organization [facility] Address [address] [place] [address] Care Team Providers Care Disability Counselor Name Role Phone Vel Santos MD Primary Care Provider Unava ilable Reason for Visit * Reason Comments Glaucoma Suspicion Yearly f/u glaucoma suspect Encounter Details Date Type Department Care Team (Late st Contact Info) Description 10/10/2021 14:00 EST Office Visit [facility] Ophthalmology [facility] [address] [place] [address] Spike Puentes MD [address] [place] [phone] Social History Tobacco Use Types Packs/Day Years [...] this encounter Patient Instructions * Patient Instructions* Spike Puentes MD - 10/10/2021 14:00 EST Eyelid and Eyelash Hygiene for: Blepharitis: chronic inflammation of the eyelids Meibomian gland dysfunction: imbalance of the oily secretions from glands on the eyelid Treatment steps: Warm compress- twice daily: 1. Apply warm moistened facecloth to closed eyes for 2-5 minutes 2. Gently massage the eyelids either with your fingertip or the facecloth Eyelid scrub- once daily: 1. Place 3 drops of Baby shampoo (e.g. Anival & Anival) in 1 cup of warm water OR OcuSoft foam cleanser 2. Use a cotton tip swab or facecloth to gently scrub the upper and lower eyelids and eyelashes with the solution from step 1. 3. Gently rinse the eyelids with warm water 4. Dry with a clean towel documented in this encounter Ordered Prescriptions Prescription Sig Dispensed Refills Start Date End Da te erythromycin (ROMYCIN) 5 mg/gram (0.5 %) ophthalmic ointment Apply 1/4 strip 3.5 g 10/10/2021 06/03/2024 documented in this encounter Progress Notes * Spike Puentes MD - 10/10/2021 1400 EST Chief Complaint Patient presents with ??? Glaucoma Suspicion Yearly f/u glaucoma suspect HPI The patient is a 71 y.o. male with glaucoma suspicion here for complete exam ad check of cataracts.He reports that his vision in low light has been getting worse. He also has difficulty driving at night due to glare from headlights. he has no eye pain, double vision, or new flashes/floaters. Right Eye: Blurred Vision, Glare or Light Sensitivity, Pain/Soreness, Eyelid Swelling Left Eye: Blurred Vision, Glare or Light Sensitivity, Pain/Soreness, Eyelid Swelling Visual Aid: Glasses Current Rx Age Location: Pain: Quality: Severity: Duration: Timing: Lasts: Context: pt here for yearly f/u visit. He reports vision has been changing, may need update in RX. He notices increase in glare sensitivity, both at night & during the day. He has had 6-8 episodes of waking up with blurry vision lasting about 1min. His eyelids are uncomfortable often with some possible swelling. Modifying factors: Pre- diabetes Associated Signs & Symptoms: Practicing Keto Diet for the past 6 months. Attestation: RENE Constitutional: ENT/Mouth NL Cardiovascular: High Blood Pressure, High Cholesterol Respiratory: NL Gastrointestinal: (GERD) Genitourinary: NL Musculoskeletal: NL Integumentary: (seboria) Neurologic: (neuropathy in feet) Psychiatric: Endocrine: (pre-diabetes) Hematologic: NL Immunologic: Drug Allergy Boat Deckhand: NL Exposures: Other: Attestation: Base Eye Exam Visual Acuity (Snellen - Linear) Right Left Dist cc 20/25 20/200 -1 Correction: Glasses VA w/Glasses RX in phoropter Tonometry (Applanation, 15:04) Right Left Pressure 19 27 Tonometry #2 (Applanation-MD, 15:32) Right Left Pressure 17 27 Pupils Pupils Dark Light APD Right PERRL 5 4 None Left PERRL 5 4 None Visual Lovett (Counting fingers) Right Left Full Full Extraocular Movement Right Left Full Full Neuro/Psych Oriented x3: Yes Mood/Affect: Normal Dilation Both eyes: Tropicamide 0.5% @ 15:04 Slit Lamp and Fundus Exam External Exam [...] vitreous detachment Disc Normal Normal C/D Ratio 0.65 0.65 Macula Trace epiretinal membrane Normal Vessels Normal Normal Periphery Normal Normal Refraction Wearing Rx Sphere Cylinder [place] Add Right -0.50 +1.25 025 Left -2.00 +1.25 155 Type: SVL Wearing Rx #2 Sphere Cylinder [place] Add Right +1.00 +1.25 025 +1.25 Left -0.50 +1.25 155 +1.25 Type: computer Manifest Refraction Sphere Cylinder [place] Dist VA Add Near VA Right -0.50 +1.75 020 20/20 +2.75 J1+ Left -1.75 +2.00 153 20/200-1 +2.75 J1+ DIAGNOSTIC TESTING/PROCEDURES: Nguyen VF 24-2 Standard - OU - Both Eyes Nguyen visual field 24-2 LEAH Standard report: Indication: Glaucoma suspect Right: Reliable (4% False Negatives), Rim defect Left: Unreliable (14/17 Fixation losses), Generalized scatter on total deviation, greater inferior on pattern deviation. OCT, Optic Nerve - OU - Both Eyes Indication: Glaucoma suspect, both eyes OCT Optic Nerve Head and rNFL: Right: signal strength: 7/10 Avg thickness: 91 no thinning Left: signal strength: 6/10 Avg thickness: 59 thinning superior and inferior IMPRESSION & PLAN: 1. Glaucoma suspect, both eyes -IOP??today: (more highly elevated with left eye) -HVF 24-2 &??OCT-rNFL today -IOP too high on left eye today, with risk of RVO at this level. -Gave option of adding an eye drop vs. SLT laser (patient elects laser) Return for next available SLT 2. Cataract, both eyes Not visually significant -Monitor periodically 3. Posterior vitreous detachment, both eyes Stable, monitor periodically 4. Epiretinal membrane, right eye Mild visual significance Discussed Recommend regular use of Amsler grid, and demonstrated its use No treatment needed right now, Monitor periodically 5. Amblyopia, left eye Dense Monitor 6. Blepharitis, both eyes -Recommend warm compresses with lid massage to eyelids 2-5 mins twice daily -Eyelid scrubs daily -Artificial tears as needed I have reviewed the patient's past medical, family, social and surgical history. I have also reviewed the patient's medications, allergies, and problem list. I performed my own HPI and have reviewed the [facility]'s ROS as well. I completed this exam personally. Spike Puentes MD I am scribing for Spike Puentes MD, while he is personally performing the service. Nabila Ambrosio, JOZEF Patient Education Topic: glaucoma suspect, blepharitis Method: Verbal Taught to: Patient Barriers: None Outcomes: independent Signature: Spike Puentes MD documented in this encounter Plan of Treatment Upcoming Encounters Date Type Department Care Team (Late st Contact Info) Description 10/04/2024 9:50 EST Appointment [facility] Pre-Surgical Testing [address] [place] [id number] 10/14/2024 11:00 EST Hospital Encounter [facility] OR [address] [place] [address] [phone] Clemente Gerardo MD [address] [place] [phone] 10/14/2024 11:00 EST - 10/14/2024 14:35 EST Surgery [facility] OR [address] [place] [address] [phone] Clemente Gerardo MD [address] [place] [address] [phone] Implantation of inflatable penile prosthesis [19922 (CPT??)] 10/17/2024 9:00 EST Telemedicine [facility] Urology [address] [phone] Nurse Call, [facility] Urology 10/31/2024 15:00 EST Post-op Visit [facility] [phone] Clemente Gerardo MD [address] [place] [phone] 12/06/2024 10:15 EST Office Visit [address] [address] Spike Puentes MD [address] [place] [phone] Scheduled Procedures Name Priority Associated Diagnoses Date/Ti me INSERTION, PENILE PROSTHESIS, INFLATABLE, 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 10/14/2024 11:00 EST documented as of this encounter Procedures Procedure Name Priority Date/Time Associated Diagnosis Comments OCT, OPTIC NERVE - OU - BOTH EYES Routine 10/10/2021 16:05 EST Glaucoma suspect, bilateral NGUYEN VF 24-2 STANDARD - OU - BOTH EYES Routine 10/10/2021 16:04 EST Glaucoma suspect, bilateral documented in this encounter Results * OCT, OPTIC NERVE - OU - BOTH EYES (10/10/2021 16:05 EST) Narrative [facility] POINT [facility] CARE - 10/10/2021 16:05 EST Indication: Glaucoma suspect, both eyes OCT Optic Nerve Head and rNFL: Right: signal strength: 7/10 Avg thickness: 91 no thinning Left: signal strength: 6/10 Avg thickness: 59 thinning superior and inferior Spike Puentes MD OPHTH TOMOGRAPHY Performing Organization Address [facility] Co de Phone Number [facility]INT [facility] * NGUYEN VF 24-2 STANDARD - OU - BOTH EYES (10/10/2021 16:04 EST) Narrative [facility]INT [facility] - 10/10/2021 16:04 EST Nguyen visual field 24-2 LEAH Standard report: Indication: Glaucoma suspect Right: Reliable (4% False Negatives), Rim defect Left: Unreliable (14/17 Fixation losses), Generalized scatter on total deviation, greater inferior on pattern deviation. Spike Puentes MD OPH VISUAL FIELD Performing Organization Address [facility] Co de Phone Number [facility] documented in this encounter Visit Diagnoses Diagnosis Glaucoma suspect, bilateral- Primary Senile nuclear sclerosis, right Senile nuclear sclerosis, left Posterior vitreous detachment of both eyes Vitreous degeneration Epiretinal membrane (ERM) of right eye Amblyopia of eye, left Erectile dysfunction after radical prostatectomy documented in this encounter Eye Exam Visual Acuity (Snellen - Linear) Right eye Left eye Dist cc 20/25 20/200 -1 Correction: Glasses VA w/Glasses RX in phoropter Tonometry #1 (Applanation, 15:04) Right eye Left eye Pressure 19 27 Tonometry #2 (Applanation-, 15:32) Right eye Left eye Pressure 17 27 Pupils Pupils Dark Light APD Right eye PERRL 5 4 None Left eye PERRL 5 4 None Visual Lovett (Counting fingers) Right eye Left eye Full Full Extraocular Movement Right eye Left eye Full Full Neuro/Psych Oriented x3: Yes Mood/Affect: Normal Dilation Both eyes: Tropicamide 0.5% @ 15:04 External Exam Right eye Left eye External Normal Normal Slit Lamp Exam Right eye Left eye Lids/Lashes Papilloma lateral up per eyelid, Blepharitis Blepharitis Conjunctiva/Sclera White and quiet Conjunctival cyst nasally Cornea Clear Clear Anterior Chamber Deep and quiet Deep and quiet Iris Round and reactive Round and sharmila ctive Lens 1-2+ Nuclear sclerosis 1-2+ Nucl ear sclerosis Vitreous Posterior vitreous detachment As teroid hyalosis, Posterior vitreous detachment Fundus Exam Right eye Left eye Disc Normal Normal C/D Ratio 0.65 0.65 Macula Trace epiretinal membrane Normal Vessels Normal Normal Periphery Normal Normal Wearing Rx #1 Sphere Cylinder [place] Add Right eye -0.50 +1.25 025 Left eye -2.00 +1.25 155 Type: SVL Wearing Rx #2 Sphere Cylinder [place] Add Right eye +1.00 +1.25 025 +1.25 Left eye -0.50 +1.25 155 +1.25 Type: computer Manifest Refraction Sphere Cylinder [place] Dist VA Add Near VA Right eye -0.50 +1.75 020 20/20 +2.75 J1+ Left eye -1.75 +2.00 153 20/200-1 +2.75 J1+ Care Teams Disability Counselor Relationship Specialty Start Date End Date Vel Santos MD PCP - General 10/30/11 03/09/23 documented as of this encounter
--- OUTSIDE RECORDS SUMMARY | 2024-07-19 22:13 | XMS_ITS | Encounter Summary ---
Author Organization [facility] Address [address] [place] [address] Care Team Providers Care Roller Painter Name Role Phone Vel Santos MD Primary Care Provider Unava ilable Reason for Visit * Reason Onset Date Comments Medications Refill 01/29/2021 Encounter Details Date Type Department Care Team (Late st Contact Info) Description 01/29/2021 Refill [facility] Medicine [facility] [address] [place] [address] Vel Santos MD Medications Refill Social History [...] Daily Max: 200 mg 12 mL 5 01/29/2021 02/04/2021 documented in this encounter Miscellaneous Notes * Telephone Encounter - Raina Graves LPN - 01/29/2021 1402 EDT MADELIN: 01/22/21, No upcoming OV scheduled. Testosterone injection last refilled on 02/14/20 for 12 mL with 5 refills. Last Testerone leveles completed on 11/15/20. Medication pended as last prescribed (hewould like to be able to get 2 vials at a time, I don't think insurance will allow this - we are already providing a 90 days supply), if okay please sign and close TE. * Telephone Encounter - Sharron Hood MA - 01/29/2021 1352 EDT Patient's EC calling the Rx line requesting refills of the following medications: Testosterone 200mg/mL injection; 10mL vial Patient would like two vials, if possible Pharmacy: [facility] [place] documented in this encounter Plan of Treatment Upcoming Encounters Date Type Department Care Team (Late st Contact Info) Description 10/04/2024 9:50 EST Appointment [facility] Pre-Surgical Testing [address] [place] [address] [phone] 10/14/2024 11:00 EST Hospital Encounter [facility] OR [address] [place] [address] [phone] Clemente Gerardo MD [address] [place] [address], Level [address] [place] [phone] 10/14/2024 11:00 EST - 10/14/2024 14:35 EST Surgery [facility] OR [address] [place] [address] [phone] Clemente Gerardo MD 111 [facility] 5 [place] [phone] Implantation of inflatable penile prosthesis [13524 (CPT??)] 10/17/2024 9:00 EST Telemedicine [facility] Urolog[address] [phone] Nurse Call, [facility] Urology 10/31/2024 15:00 EST Post-op Visit [address] [phone] [place], Clemente Boyd MD [address] [place] [phone] 12/06/2024 10:15 EST Office Visit [address] [address] Spike Puentes MD [address] [place] [phone] Scheduled Procedures Name Priority Associated Diagnoses Date/Ti me INSERTION, PENILE PROSTHESIS, INFLATABLE, 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 10/14/2024 11:00 EST documented as of this encounter Visit Diagnoses Not on filedocumented in this encounter Discontinued Medications Medication Sig Discontinue Reason Start Date End Da te testosterone cypionate (DEPO-TESTOSTERONE) 200 mg/mL injection Inject 1 mL into the muscle every 7 days for 90 days. Daily Max: 200 mg Reorder 02/14/2020 01/29/2021 documented as of this encounter Care Teams Roller Painter Relationship Specialty Start Date End Date Vel Santos MD PCP - General 10/30/11 03/09/23 documented as of this encounter
--- OUTSIDE RECORDS SUMMARY | 2024-07-19 22:13 | XMS_ITS | Encounter Summary ---
Author Organization Health system Address [address] [place] [address] Care Team Providers Care Band Saw Runner Name Role Phone Vel Santos MD Primary Care Provider Unava ilable Encounter Details Date Type Department Care Team (Latest Contact Info) Description 05/22/2021 Travel Social History Tobacco Use Types Packs/Day [...] Exposure Response Date Recorded In the last month, have you been in contact with someone who was confirmed or suspected to have Coronavirus / COVID-19? No / Unsure 05/22/2021 16:30 EDT documented as of this encounter Functional [...] 9:50 EST Appointment [facility] Pre-Surgical Testing [address] [place] [address] 10/14/2024 11:00 EST Hospital Encounter [facility] OR [address] [place] [address] [phone] Clemente Gerardo MD [address] [place] [phone] 10/14/2024 11:00 EST - 10/14/2024 14:35 EST Surgery [facility] OR [address] [place] [address] [phone] Clemente Gerardo MD [address] [place] [address] [phone] Implantation of inflatable penile prosthesis [81564 (CPT??)] 10/17/2024 9:00 EST Telemedicine [facility] Urology [address] [phone] Nurse Call, [facility] Urology 10/31/2024 15:00 EST Post-op Visit [address] [phone] Clemente Gerardo MD [address] [place] [address] [phone] 12/06/2024 10:15 EST Office Visit [facility] Ophthalmology [address] [address] Spike Puentes MD [address] [place] [address] [phone] Scheduled Procedures Name Priority Associated Diagnoses Date/Ti me INSERTION, PENILE PROSTHESIS, INFLATABLE, 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 10/14/2024 11:00 EST documented as of this encounter Visit Diagnoses Not on filedocumented in this encounter Care Teams Band Saw Runner Relationship Specialty Start Date End Date Vel Santos MD PCP - General 10/30/11 03/09/23 documented as of this encounter
--- OUTSIDE RECORDS SUMMARY | 2024-07-19 22:13 | XMS_ITS | Encounter Summary ---
Author Organization [facility] Address [address] [place] [address] Care Team Providers Care Dye And Chemical Coordinator Name Role Phone Vel Santos MD Primary Care Provider Unava ilable Reason for Visit * Reason Comments Back Pain Encounter Details Date Type Department Care Team (Late st Contact Info) Description 11/13/2020 8:15 EST Telemedicine [facility] Family Medicine [facility] [address] [place], [place] [phone] Vel Santos MD Thoracic spine pain (Primary Dx); Essential hypertension; Hypogonadism in male; Vitamin B12 deficiency; Hypercholesterolemia; Vaccine counseling Social History Tobacco Use Types Packs/Day Years [...] Dispensed Refills Start Date End Da te pneumococcal vaccine, PPV23, (PNEUMOVAX) 25 mcg/0.5 mL syringe Inject 0.5 mL into the muscle once for 1 dose. 1 mL 11/13/2020 01/01/2023 pantoprazole (PROTONIX) 40 mg tablet Take 1 Tab by mouth daily for 360 days. 90 Tab 3 11/13/2020 09/05/2021 amLODIPine (NORVASC) 10 mg tablet Take 1 Tab by mouth daily for 90 days. 90 Tab 3 11/13/2020 09/05/2021 zoster vaccine recombinant, PF, (SHINGRIX, PF,) IM Injection - vial GIVE ONE NOW, AND REPEAT IN 2-6 MONTHS. 1 Each 1 11/13/2020 02/22/2023 documented in this encounter Progress Notes * Vel Santos MD - 11/13/2020 0815 EST [facility] Video Visit Today's visit was provided through [...] or auxiliary staff: yes. Subjective: Chief Complaint(s): Back Pain HPI: Unknown cause of back pain, ? Bending over computer. sudden onset of pain like a broken rib, right side back... pain spreads with twisting, took ibuprofen.. feels so much better. Radiates outward Called the chiropractor- told him to get an xray. NO rash over site- 2) wants to catch up on his immunizations- shingrix, pneumovax 3) ? Labs- has not had in over a year, wonders what he is due for. 4) discusses claustrophobia with CT scan. Happy to hear you enter feet first and head is exposed! 5) bp today: 122/70 I have reviewed patient's tobacco history: reports that he has quit smoking. He has never used smokeless tobacco. I have reviewed current problem list and current medications. ROS: ROS See hpi plus- sl edema with adding ibuprofen, bp control great, no low bs or blood pressure issues noted, is happy, business is good, mother in law lives with them now. covid safe. Objective: Examination: Home Vitals: There were no vitals taken for this visit. Pertinent exam findings: appears well, non-labored breathing, mood and affect appropriate and stands, turns to camera, points to an area to right of thoracic spine, no defect seen, or rash. Data reviewed with patient: Reviewed and/or ordered active problem list, medication list, lab results, Assessment & Plan: Roland was seen today for back pain. Diagnoses and all orders for this visit: Thoracic spine pain - XR THORACIC SPINE 3 VIEWS; Future Essential hypertension - BASIC METABOLIC PANEL (BMP); Future - LIPID PROFILE (INCLUDES CHOLESTEROL, TRIGLYCERIDES, HDL, LDL) Hypogonadism in male - BASIC METABOLIC PANEL (BMP); Future - TESTOSTERONE, TOTAL AND FREE; Future Vitamin B12 deficiency - VITAMIN B12; Future Hypercholesterolemia - LIPID PROFILE (INCLUDES CHOLESTEROL, TRIGLYCERIDES, HDL, LDL) Other orders - zoster vaccine recombinant, PF, (SHINGRIX, PF,) IM Injection - vial; GIVE ONE NOW, AND REPEAT IN 2-6 MONTHS. - amLODIPine (NORVASC) 10 mg tablet; Take 1 Tab by mouth daily for 90 days. - pantoprazole (PROTONIX) 40 mg tablet; Take 1 Tab by mouth daily for 360 days. A total of 31 minutes was spent on this encounter on the day of this encounter. The following individuals and their role did participate in today's encounter visit: Provider: Vel Santos MD Patient Spouse documented in this encounter Plan of Treatment Upcoming Encounters Date Type Department Care Team (Late st Contact Info) Description 10/04/2024 9:50 EST Appointment [facility] Pre-Surgical Testing [address] [place] [address] [phone] 10/14/2024 11:00 EST Hospital Encounter [facility] OR [address] [place], [place] [phone] Clemente Gerardo MD [address] [place] [address] [phone] 10/14/2024 11:00 EST - 10/14/2024 14:35 EST Surgery [facility] OR [address] [place] [address] [phone] Clemente Gerardo MD [address] [place] [address] [phone] Implantation of inflatable penile prosthesis [02051 (CPT??)] 10/17/2024 9:00 EST Telemedicine [facility] [phone] Nurse Call, [facility] Urology 10/31/2024 15:00 EST Post-op Visit [address] [phone] Clemente Gerardo MD [address] [place] [address] [phone] 12/06/2024 10:15 EST Office Visit [address] [address] Spike Puentes MD [address] [place] [address] [phone] Scheduled Procedures Name Priority Associated Diagnoses Date/Ti me INSERTION, PENILE PROSTHESIS, INFLATABLE, 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 10/14/2024 11:00 EST documented as of this encounter Procedures Procedure Name Priority Date/Time Associated Diagnosis Comments LIPID PROFILE (INCLUDES CHOLESTEROL, TRIGLYCERIDES, HDL, LDL) Routine 11/15/2020 13:40 EST Essential hypertension Hypercholesterolemi a documented in this encounter Results * LIPID PROFILE (INCLUDES CHOLESTEROL, TRIGLYCERIDES, HDL, LDL) (11/15/2020 13:40 EST) Triglyceride 251 <150 mg/dL 11/15/2020 14:09 [facility] Comment: Adult: Normal: ?<150 mg/dl ? Borderline High: 150-199 mg/dl ? High: ?200-499 mg/dl ? Very High: >xa=811 Cholesterol 174 <200 mg/dL 11/15/2020 14:09 [facility] Comment: Acceptable: ??<200 Borderline: ??200-239 High: ?> or = 240 Chol/HDL Ratio 3.9 0 - 5.0 11/15/2020 14:09 [facility] Comment: DESIRABLE RATIO IS LESS THAN 4.1 PATIENTS ARE CONSIDERED AT RISK: WOMEN RATIO >5 MEN RATIO >6 FASTING? - [facility] Unknown 13:40 [facility] HDL 44 40 - 60 mg/dL 11/15/2020 14:09 [facility] Comment: ?? Reference Range Low: ? < 40 ??mg/dL Normal: ??40-60 mg/dL High: ?>= 60 mg/dL LDL CHOLESTEROL - [facility] 80 60 - 100 mg/dL 11/15/2020 14:09 [facility] Non HDL Cholesterol 130 mg/dl 11/15/2020 14:09 [facility] Comment: Desirable: ?Less than 130 Borderline High: ??130-159 High: ? 160-189 Very High: ?Greater than or equal to 190 Blood VENOUS BLOOD / Unknown 11/15/2020 13:40 EST 11/15/2020 13:40 EST [facility] - 11/15/2020 14:09 EST Does PT Have a Latex Allergy? NO Vel Santos MD CHEMISTRY & BLOOD GA S ORDERABLES [facility] [address] [place] [address] documented in this encounter Visit Diagnoses Diagnosis Thoracic spine pain- Primary Pain in thoracic spine Essential hypertension Unspecified essential hypertension Hypogonadism in male Vitamin B12 deficiency Other B-complex deficiencies Hypercholesterolemia Pure hypercholesterolemia Vaccine counseling Other specified counseling Erectile dysfunction after radical prostatectomy documented in this encounter Discontinued Medications Medication Sig Discontinue Reason Start Date End Da te pantoprazole (PROTONIX) 40 mg tablet Take 1 Tab by mouth daily. Reorder 03/06/2020 11/13/2020 amLODIPine (NORVASC) 5 mg tablet Take 1 Tab by mouth daily. Reorder 11/05/2020 11/13/2020 documented as of this encounter Care Teams Dye And Chemical Coordinator Relationship Specialty Start Date End Date Vel Santos MD PCP - General 10/30/11 03/09/23 documented as of this encounter
--- OUTSIDE RECORDS SUMMARY | 2024-07-19 22:13 | XMS_ITS | Encounter Summary ---
Author Organization [facility] Address [address] [place] [address] Care Team Providers Care Operations Research Group Manager Name Role Phone Vel Santos MD Primary Care Provider Unava ilable Reason for Visit * Reason Onset Date Comments Other 06/13/2021 pt to have oral surgery, needs to hold meds Encounter Details Date Type Department Care Team (Late st Contact Info) Description 06/13/2021 Telephone [place] [address] [address] , [facility] [address] [place], [place] [phone] Vel Santos MD Other (pt to have oral surgery, needs to hold meds) Social History Tobacco Use Types Packs/Day Years [...] encounter Miscellaneous Notes * Telephone Encounter - Barbara Kruse - 06/17/2021 1642 EDT Printed and faxed w/ med list to [facility] at [phone] * Telephone Encounter - Rayne Baptiste PA-C - 06/14/2021 0845 EDT Printed, in pod 2 outbox. To front. * Telephone Encounter - Mahnaz Mcgovern RN - 06/14/2021 0826 EDT I spoke to Indy at [facility] as Kiera was unavailable. She spoke to Dr. Campos and informed me that holding 7 days prior would be acceptable. Rayne I pended a letter for you to sign with this information. Front staff will need to fax this along with a med list for patient. * Telephone Encounter - Rayne Baptiste PA-C - 06/13/2021 1640 EDT Is the oral surgeon okay with stopping both 7 d before surgery? This is what I would recommend. * Telephone Encounter - Mahnaz Mcgovern RN - 06/13/2021 1608 EDT Forwarding to Rayne Baptiste PA-C as is out of the office. Are you ok with this? We will have front staff fax your response. * Telephone Encounter - Talisha Arredondo - 06/13/2021 1600 EDT Kiera from [facility] called. Pt is scheduled for oral surgery 06/26 and they would like pt to be off plavix and aspirin for ten days prior to surgery. Is TC ok with this? Can fax approval response to [phone]. documented in this encounter Plan of Treatment Upcoming Encounters Date Type Department Care Team (Late st Contact Info) Description 10/04/2024 9:50 EST Appointment [facility] Pre-Surgical Testing [address] [place] [address] [phone] 10/14/2024 11:00 EST Hospital Encounter [facility] OR [address] [place] [address] [phone] Clemente Gerardo MD [address] [place] [address] [phone] 10/14/2024 11:00 EST - 10/14/2024 14:35 EST Surgery [facility] [place] [address] [place] [address] [phone] Clemente Gerardo MD [address] [place] [address] [phone] Implantation of inflatable penile prosthesis [17752 (CPT??)] 10/17/2024 9:00 EST Telemedicine [facility] Urology [address] [phone] Nurse Call, [facility] Urology 10/31/2024 15:00 EST Post-op Visit [address] [phone] Clemente Gerardo MD [address] [place] [address] [phone] 12/06/2024 10:15 EST Office Visit [facility] [address] [place] [address] Spike Puentes MD [address] [place] [phone] Scheduled Procedures Name Priority Associated Diagnoses Date/Ti me INSERTION, PENILE PROSTHESIS, INFLATABLE, 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 10/14/2024 11:00 EST documented as of this encounter Visit Diagnoses Not on filedocumented in this encounter Care Teams Operations Research Group Manager Relationship Specialty Start Date End Date Vel Santos MD PCP - General 10/30/11 03/09/23 documented as of this encounter
--- OUTSIDE RECORDS SUMMARY | 2024-07-19 22:13 | XMS_ITS | Encounter Summary ---
Author Organization [facility] Address [address] [place] [address] Care Team Providers Care Utility Systems Repairer Operator Name Role Phone Vel Santos MD Primary Care Provider Marco Cowart MD Primary Care Provider [phone] Marco Aleman MD Primary Care Provider [phone] Encounter Details Date Type Department Care Team (Late st Contact Info) Description 09/03/2021 Lab Requisition [facility] Pathology & Laboratory Medicine - [facility] [address] [place], [place] [phone] Quirino David MD [address] [place] [address] [address] [place] [phone] Neoplasm of uncertain behavior of skin Social History Tobacco Use Types Packs/Day Years [...] Appointment [facility] Pre-Surgical Testing [address] [place] [phone] 10/14/2024 11:00 EST Hospital Encounter [facility] OR [address] [place] [address] [phone] Clemente Gerardo MD [address] [place] [address] [phone] 10/14/2024 11:00 EST - 10/14/2024 14:35 EST Surgery [facility] OR [address] [place] [phone] Clemente Gerardo MD [address] [place] [address] [phone] Implantation of inflatable penile prosthesis [90296 (CPT??)] 10/17/2024 9:00 EST Telemedicine [facility] [phone] Nurse Call, [facility] 10/31/2024 15:00 EST Post-op Visit [facility]rology [address] [phone] Clemente Gerardo MD [address] [place] [phone] 12/06/2024 10:15 EST Office Visit [facility] [address] [place], [place] [phone] Spike Puentes MD [address] [place] [phone] Scheduled Procedures Name Priority Associated Diagnoses Date/Ti me INSERTION, PENILE PROSTHESIS, INFLATABLE, 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 10/14/2024 11:00 EST documented as of this encounter Procedures Procedure Name Priority Date/Time Associated Diagnosis Comments SURGICAL PATHOLOGY Today 09/02/2021 15 :16 EDT Neoplasm of uncertain behavior of skin documented in this encounter Results * SURGICAL PATHOLOGY (09/02/2021 15:16 EDT) Note to Patient The following pathology results have been interpreted by your pathologist and may be available to you before your health provider has had the opportunity to review them. Please allow time for your provider to receive these results and explore management options, if applicable. 09/04/2021 9:51 [facility] Final Diagnosis A. SKIN OF EAR, LEFT SUPERIOR POSTERIOR HELIX, SHAVE BIOPSY: - Basal cell carcinoma, superficial and nodular types. - Lesion extends to peripheral edge and base of biopsy specimen. 09/04/2021 9:51 [facility] Attestation By the signature below, the attending physician certifies that they have 1) personally conducted a gross and/or microscopic examination of the described specimen(s), and/or personally interpreted the results of laboratory testing of the described specimen(s), and 2) personally rendered or confirmed the above diagnosis. 09/04/2021 9:51 [facility] at 0951 Clinical History Pearly telangiectatic papule; DDx: Basal cell carcinoma vs. other; clinical diagnosis code: D48.5 09/04/2021 9:51 [facility] Gross Description A. Received in formalin labelled with proper patient identification (initials H, P) and left superior posterior helix is a shave biopsy of white-pink skin (0.6 x 0.5 x 0.1 cm). There is a conde-red encrusted focus (0.2 x 0.1 cm) located on the skin surface. The margin is inked blue. The tissue is bisected and entirely submitted in A1. LAZARO CURRY(ASCP) 09/03/2021 13:52 09/04/2021 9:51 EDT [facility] Performing Lab [facility] 09/04/2021 9:51 EDT [facility] Scanned Images 09/04/2021 9:51 EDT [facility] Tissue TISSUE SPECIMEN FROM SKIN / Unknown 09/02/2021 15:16 EDT 09/03/2021 11:50 EDT Quirino David MD PATHOLOGY ORDER [facility] [address] [place] [address] documented in this encounter Visit Diagnoses Diagnosis Neoplasm of uncertain behavior of skin Erectile dysfunction after radical prostatectomy documented in this encounter Care Teams Utility Systems Repairer Operator Relationship Specialty Start Date End Date Vel Santos MD PCP - General 10/30/11 03/09/23 Marco Altamirano MD [address] [place] [address] [phone] PCP - General Family Medicine - Primary Care 03/10/23 09/13/23 Marco Aleman MD [address] [facility] [address] [place] [address] PCP - General Emergency Medicine 12/07/23 documented as of this encounter
--- OUTSIDE RECORDS SUMMARY | 2024-07-19 22:13 | XMS_ITS | Encounter Summary ---
Author Organization [facility] Address [address] [place] [address] Care Team Providers Care Duct Cleaner Name Role Phone Vel Santos MD Primary Care Provider Unava ilable Reason for Visit * Reason Onset Date Comments Medication Management 09/02/2021 Encounter Details Date Type Department Care Team (Late st Contact Info) Description 09/02/2021 Telephone [facility] [address] , [address] [place], [place] [phone] Vel Santos MD Medication Management Social History Tobacco Use Types Packs/Day Years [...] vials Daily Max: 250 mg 20 mL 2 09/02/2021 06/30/2022 documented in this encounter Miscellaneous Notes * Telephone Encounter - Vel Santos MD - 09/02/2021 1229 EDT done * Telephone Encounter - Mahnaz Mcgovern RN - 09/02/2021 0949 EDT Last appt 01/22/21, no follow up scheduled. Last refilled as tabbed on 08/23/21- now they are requesting different quantity (see note below). If you are ok with this, can adjust dispense amt. * Telephone Encounter - Jada Pitts - 09/02/2021 0916 EDT Patient would like RX Testosterone cypionate They would like 2, 10 ml vialwith 200 ml per mls . If they cannot get 2 they would still like 1, 10 ml vial with 200 ml per ml. documented in this encounter Plan of Treatment Upcoming Encounters Date Type Department Care Team (Late st Contact Info) Description 10/04/2024 9:50 EST Appointment [facility] Pre-Surgical Testing [address] [place], [place] [address] 10/14/2024 11:00 EST Hospital Encounter [facility] OR [address] [place], [place] [address] Clemente Gerardo MD [address] [place] [address], [address] [place] [phone] 10/14/2024 11:00 EST - 10/14/2024 14:35 EST Surgery [facility] OR [address] [place], [place] [address] Clemente Gerardo MD [address] [place] [address] [phone] Implantation of inflatable penile prosthesis [31468 (CPT??)] 10/17/2024 9:00 EST Telemedicine [facility] Urology [address] [phone] Nurse Call, [facility] 10/31/2024 15:00 EST Post-op Visit [address] [phone] Clemente Gerardo MD [address] [place] [address] [phone] 12/06/2024 10:15 EST Office Visit [address] [address] Spike Puentes MD [address] [place] [phone] Scheduled Procedures Name Priority Associated Diagnoses Date/Ti me INSERTION, PENILE PROSTHESIS, INFLATABLE, 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 10/14/2024 11:00 EST documented as of this encounter Visit Diagnoses Not on filedocumented in this encounter Discontinued Medications Medication Sig Discontinue Reason Start Date End Da te testosterone cypionate (DEPO-TESTOSTERONE) 200 mg/mL injection Inject 1.25 mL into the muscle every 7 days for 28 days. Daily Max: 250 mg Reorder 08/23/2021 09/02/2021 documented as of this encounter Care Teams Duct Cleaner Relationship Specialty Start Date End Date Vel Santos MD PCP - General 10/30/11 03/09/23 documented as of this encounter
--- OUTSIDE RECORDS SUMMARY | 2024-07-19 22:13 | XMS_ITS | Encounter Summary ---
Author Organization [facility] Address [address] [place] [address] Care Team Providers Care Insulation Board Coater Operator Name Role Phone Vel Santos MD Primary Care Provider Unava ilable Reason for Visit * Reason Onset Date Comments Hypertension 08/27/2020 Patient Information Update 10/24/2020 Encounter Details Date Type Department Care Team (Late st Contact Info) Description 08/27/2020 Telephone [facility] Medicine [facility] [address] , [address] [place], [place] [phone] Vel Santos MD Hypertension; Patient Information Update Social History Tobacco Use Types Packs/Day Years [...] 90 minutes before MRI- will need a armored car driver 2 Tab 10/30/2020 08/03/2022 documented in this encounter Miscellaneous Notes * Telephone Encounter - Raina Trevino RN - 11/01/2020 1052 EST Pt was read TC note and was still not sure the dose was high enough but was agreeable to trying it. * Telephone Encounter - Vel Santos MD - 10/31/2020 1651 EST I sent it in so he has the option of taking two pills. 10mg of valium is a hefty dose and should work * Telephone Encounter - Raina Trevino RN - 10/31/2020 1209 EST Pt notified that diazepam was sent in for his MRI. Pt aware he will need to be driven to/from the MRI. Pt aware to have fasting lab drawn prior to MRI. TC-pt states last time he took the diazepam 1 tab on the ride in and 1 tab when he got to the hospital and it didn't work, no effect really. Pt wondering if a higher dose would work better. * Telephone Encounter - Raina Trevino RN - 10/31/2020 1043 EST Pt will need to be notified as well that he will need a armored car driver for his MRI due to taking diazepam. * Telephone Encounter - Raina Trevino RN - 10/30/2020 1019 EST LM for pt to call back. Pt needs to be notified of med sent in and of lab needing to be drawn. * Telephone Encounter - Vel Santos MD - 10/30/2020 0909 EST Diazepam ordered. Lab order signed . Inform justin * Telephone Encounter - Raina Trevino RN - 10/30/2020 0825 EST TC-can you order a med to help with pt's claustrophobia for his imaging. BMP pended, unsure if pulmonary nodule works for this lab dx code as well. * Telephone Encounter - Felicia Celis - 10/24/2020 1401 EST I called [facility] Radiology to schedule scan. They gave pt apt of 10/29 @ 3 pm. I called pt to notify him, he declined this apt. Pt said he will have this done locally @ [facility]. He is calling DI to see if they can complete this scan feet first because he states he is very claustrophobic. He will need medication to complete this scan as well as a creatinine lab order. Advise. I spoke with [place] in [place], she will reach out to pt to get him scheduled after order has been protocolled. * Telephone Encounter - Brenna Thomas RN - 08/29/2020 0912 EDT Please ccall [facility] and see what s up with this * Telephone Encounter - Vel Santos MD - 08/28/2020 1501 EDT I ordered it today and 07/31- I am now sure I am able to order an xray at [facility]. Can you call and clarify this- if so, he needs to ask one of his [facility] docs to order it or we would do it here * Telephone Encounter - Brenna Thomas RN - 08/28/2020 1335 EDT Xin advised, she also said they haven t heard anything about [facility] referral for CT * Telephone Encounter - Vel Santos MD - 08/28/2020 1313 EDT Double up on amlodipine To 10mg a day ( 2x5) and recheck in a few days * Telephone Encounter - Brenna Thomas RN - 08/28/2020 1307 EDT To TC * Telephone Encounter - Jj Joseph - 08/28/2020 1125 EDT Pt called back, unable to reach nurse * Telephone Encounter - Ragini Hdz - 08/27/2020 1459 EDT reports pt's blood pressure has been running around 167/99 And it is currently 151/92... pt iscurrently taking blood pressure medication and has had a stroke and pt is nervous. documented in this encounter Plan of Treatment Upcoming Encounters Date Type Department Care Team (Late st Contact Info) Description 10/04/2024 9:50 EST Appointment [facility] Pre-Surgical Testing [address], [place] [phone] 10/14/2024 11:00 EST Hospital Encounter [facility] OR [address] [place], [place] [phone] Clemente Gerardo MD [address] [facility], [address] [place] [phone] 10/14/2024 11:00 EST - 10/14/2024 14:35 EST Surgery [facility] OR [address] [place] [id number] Clemente Gerardo MD [address] [place] [address] 5 [place] [phone] Implantation of inflatable penile prosthesis [37202 (CPT??)] 10/17/2024 9:00 EST Telemedicine [facility] Urology [address] [phone] Nurse Call, [facility] Urology 10/31/2024 15:00 EST Post-op Visit [address] [phone] Clemente Gerardo MD [address] [place] [address] 5 [place] [phone] 12/06/2024 10:15 EST Office Visit [address] [address] Spike Puentes MD [address] [place] [phone] Scheduled Procedures Name Priority Associated Diagnoses Date/Ti me INSERTION, PENILE PROSTHESIS, INFLATABLE, 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 10/14/2024 11:00 EST documented as of this encounter Visit Diagnoses Diagnosis Pulmonary nodule- Primary Solitary pulmonary nodule Renal insufficiency Unspecified disorder of kidney and ureter Erectile dysfunction after radical prostatectomy documented in this encounter Care Teams Insulation Board Coater Operator Relationship Specialty Start Date End Date Vel Santos MD PCP - General 10/30/11 03/09/23 documented as of this encounter
--- OUTSIDE RECORDS SUMMARY | 2024-07-19 22:13 | XMS_ITS | Encounter Summary ---
Author Organization [facility] Address [address] [place] [address] Care Team Providers Care Carpenter Labor Supervisor Name Role Phone Vel Santos MD Primary Care Provider Unava ilable Reason for Visit * Reason Comments Follow-up Wound Care Encounter Details Date Type Department Care Team (Late st Contact Info) Description 05/22/2021 16:30 EDT Office Visit [facility] [address], [address] [place] [address] Owen Cazares, [facility] [address] [place] [address] Acquired adductovarus rotation of toe, left (Primary Dx); Pain of toe of left foot; Exostosis of toe Social History Tobacco Use Types Packs/Day Years [...] 16:30 EDT documented as of this encounter Last Filed Vital Signs Vital Sign Reading Time Taken Comments Blood Pressure - - Pulse 78 05/22/2021 1632 EDT Temperature - - Respiratory Rate - - Oxygen Saturation 97% 05/22/2021 1632 EDT Inhaled Oxygen Concentration - - [...] as of this encounter Progress Notes * Owen Cazares DPM - 05/22/2021 1630 EDT Right hallux planta callus. Left 5th toe corn medial proximal nail fold SUBJECTIVE: Chief Complaint Patient presents with ??? Left Foot - Follow-up, Wound Care HPI Roland Vega is a 71 yo male established patient here today for a left toe wound. Previously seen on 11/03/2019 by K[facility] where a corn on the left fifth toe was one of the concerns. Left fifth toe can be quite painful. Pain level is variable but when it is acting up it is a significant problem. Causes a limp. 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 Has found that gel tubes worn on the adjacent fourth toe seems to help somewhat. There are times when he would not be able to work without it. The past medical, family and social history have been reviewed in the patient chart. Medications and allergies reviewed. I spent time preparing advance of the visit today, which included reviewing prior history and notes, as well as reviewing any relevant prior imaging and tests, which I also independently interpreted. Review of Systems Constitutional: negative for, fever, fatigue, malaise. Cardiovascular: negative for, chest pain, dyspnea on exertion, palpitations. Respiratory: negative for cough, wheezing. Musculoskeletal: Positive for toe pain. Dermatologic: Negative for, rash, discoloration, lesions. Neurological: Negative for, Numbness, Tingling, Weakness. Hematologic/lymphatic: Negative for, bleeding, bruising. OBJECTIVE: Pulse 78 SpO2 97% General Exam: Alert and oriented. No acute distress. Appropriate affect. Normal cognition. Vascular Exam: DP and PT pulses are normal. Trace edema in the legs. Cap refill 1 second.. Tepid skin temperature. Dermatologic Exam: There is a corn on the medial distal left fifth toe overlying a prominent condyle of the base of the distal phalanx. After debridement, this condylectomy distinctly felt and has somewhat of a sharp edge. Adductovarus contracture of the fifth toe is present. Semiflexible. Orthopedic Exam: Adductovarus left fifth toe, moderate degree of contracture and is semiflexible. Even after debridement there is tenderness to palpation at the prominent medial distal phalanx condyle. Neurologic Exam: Cutaneous sensation and motor function are grossly intact and symmetrical. ASSESSMENT AND PLAN: 1. Acquired adductovarus rotation of toe, left 2. Pain of toe of left foot 3. Exostosis of toe Thorough discussion on the digital contracture and the prominent medial condyle. Debrided the corn.Patient could experiment between the gel 2 that he wears on the fourth toe versus wearing one on the fifth toe. A Silipos brand gel sleeve with the gel on the medial side of the fifth toe may work better than the tube he is using on the fourth. Also had a thorough discussion regarding surgical correction. A hammertoe repair, derotational arthroplasty of the fifth toe would likely work very well on a long-term, permanent basis. Could also try a medial condylectomy/exostectomy. While it is possible that that alone would solve the issue permanently, I would be a little bit concerned about continued or recurrent pain if the adductovarus wasnot corrected. Patient does think he wants surgical correction, but after the summer. He is going to think it over Patient Active Problem List Diagnosis ??? Tremor ??? TIA (transient ischemic attack) ??? S/P angioplasty with stent ??? Rheumatoid arthritis (HCC-CMS) ??? Reflux esophagitis ??? Primary osteoarthritis of left knee ??? Primary osteoarthritis of left foot ??? Post-traumatic osteoarthritis of right foot ??? Autonomic neuropathy ??? Pain in unspecified joint ??? Osteoarthritis, generalized ??? Obesity, unspecified ??? Near syncope ??? Medical marijuana use ??? Cannabis abuse ??? Malignant neoplasm of prostate (HCC-CMS) ??? Major depressive disorder with single episode ? ? Lung nodule < 6cm on CT ??? Internal derangement of left knee ??? Hypogonadism, testicular ??? Hypoglycemia ??? Hypercholesterolemia ??? History of syncope ??? Hemorrhoids ??? Headache ??? Gastroesophageal reflux disease ??? Familial tremor ??? Essential hypertension ??? Erectile dysfunction ??? Dyslipidemia ??? Depression ??? Coronary artery disease involving gulkana coronary artery of gulkana heart without angina pectoris ??? Claustrophobia ??? Chronic back pain ??? Chronic anticoagulation ??? Asthma ??? Cerebrovascular accident (CVA) due to embolism (HCC-CMS) ??? Arteriosclerotic cardiovascular disease ??? Asteroid hyalosis of left eye ??? Anxiety ??? Memory loss ??? Posttraumatic stress disorder ??? Atypical seizure (HCC-CMS) Past Medical History: Diagnosis Date ??? Amblyopia per pt-left eye ??? Cerebral artery occlusion with cerebral infarction (HCC-CMS) ??? Hyperlipidemia ??? Hypertension ??? NE (myocardial infarction) (HCC-CMS) ??? Rheumatoid disease (HCC-CMS) Past Surgical History: Procedure Laterality Date ??? CARDIAC [place]ERIZ[place] 12/2004 normal [place] [facility] ??? COLONOSCOPY 12/2004 WNL - Dr. Turcios f/u 10 yrs ??? RADICAL PROSTATECTOMY 12/2004 Laparoscopic radical prostatectomy, umbilical hernia repair - [place]. Encinas [facility] ??? SINUS SURGERY nasal / sinus surgery Social History Tobacco Use ??? Smoking status: Former Smoker ??? Smokeless tobacco: Never Used Substance Use Topics ??? Alcohol use: Yes Alcohol/week: 7.0 standard drinks Types: 7 Glasses of wine per week Family History Problem Relation Age of Onset ??? Macular Degeneration Neg Hx ??? Retinal Detachment Neg Hx ??? Glaucoma Neg Hx Current Outpatient Medications Medication Sig Dispense Refill ??? amLODIPine (NORVASC) 10 mg tablet Take 1 Tab by mouth daily for 90 days. 90 Tab 3 ??? aspirin 325 mg tablet Take 325 mg by mouth daily. ??? atorvastatin (LIPITOR) 20 mg tablet ??? blood glucose meter Glucose monitor,Sig: test once a day once a day ??? blood glucose test strips Brand: One Touch Rezzie, test blood sugar once daily 100 Each 3 ??? budesonide-formoterol HFA (SYMBICORT) 80-4.5 mcg/actuation HFA aerosol inhaler inhaler Inhale 2Puffs as directed 2 times daily. ??? buPROPion (WELLBUTRIN SR) 150 mg SR tablet TAKE 1 TABLET BY MOUTH ONCE DAILY IN THE MORNING 90 Tab 3 ??? Cholecalciferol, Vitamin D3, (VITAMIN D3) 2,000 unit capsule Take by mouth daily. ??? clopidogreL (PLAVIX) 75 mg tablet Take 1 tablet by mouth once daily 90 Tab 3 ??? DIABETIC SUPPLIES, MISCELLAN. MISC Syringe 3cc ??? diazePAM (VALIUM) 5 mg tablet 1-2 tabs 90 minutes before MRI- will need a tow truck driver 2 Tab 0 ??? econazole nitrate 1 % cream Apply 1 application topically 2 times daily as needed. ??? escitalopram oxalate (LEXAPRO) 10 mg tablet ??? lamoTRIgine (LAMICTAL) 25 mg tablet TAKE 3 TABLETS BY MOUTH TWICE DAILY 540 Tab 3 ? ? LANCETS & BLOOD GLUCOSE STRIPS MISC test strips and lancets for glucose monitor , Sig: testonce a day test once a day ??? MEDICAL MARIJUANA ??? nitroGLYCERIN (NITROSTAT) 0.[address] 1 Tab under the tongue as needed. ??? nystatin (MYCOSTATIN) ointment Apply 1 application topically 3 times daily as needed. ??? Txjef-9-QNJ-EPA-Fish Oil 1,000 (120-180) mg capsule Take 1,000 mg by mouth. ??? pantoprazole (PROTONIX) 40 mg tablet Take 1 Tab by mouth daily for 360 days. 90 Tab 3 ??? pneumococcal vaccine, PPV23, (PNEUMOVAX) 25 mcg/0.5 mL syringe Inject 0.5 mL into the muscle once for 1 dose. 1 mL 0 ??? testosterone cypionate (DEPO-TESTOSTERONE) 200 mg/mL injection Inject 1 mL into the muscle every 7 days. Daily Max: 200 mg 12 mL 5 ??? ubidecarenone/vitamin E mixed (COQ10 SG 100 ORAL) Take by mouth daily. ??? zoster vaccine recombinant, PF, (SHINGRIX, PF,) IM Injection - vial GIVE ONE NOW, AND REPEAT IN2-6 MONTHS. 1 Each 1 ??? zoster vaccine recombinant, PF, (SHINGRIX, PF,) IM Injection - vial GIVE ONE NOW, AND REPEAT IN2-6 MONTHS. 1 Each 1 No current facility-administered medications for this visit. Allergies Allergen Reactions ??? Other - See Comments ??? Cyclobenzaprine Other reaction(s): Unknown ??? Ibuprofen Other reaction(s): edema ??? Lisinopril Swelling of tongue ??? Naproxen Sodium Other reaction(s): edema ??? Sulfa (Sulfonamide Antibiotics) ??? Tramadol Other reaction(s): DIZZINESS Owen Cazares DPM [facility] [place], [place] documented in this encounter Plan of Treatment Upcoming Encounters Date Type Department Care Team (Late st Contact Info) Description 10/04/2024 9:50 EST Appointment [facility] [place] [facility] Pre-Surgical Testing [address] [place] [phone] 10/14/2024 11:00 EST Hospital Encounter [facility] OR [address] [place] [phone] Clemente Gerardo MD [address] [place] [phone] 10/14/2024 11:00 EST - 10/14/2024 14:35 EST Surgery [facility] OR [address] [place] [phone] Clemente Gerardo MD [address] [place] [phone] Implantation of inflatable penile prosthesis [99644 (CPT??)] 10/17/2024 9:00 EST Telemedicine [facility] Urology - [address] [phone] Nurse Call, [facility] Urology 10/31/2024 15:00 EST Post-op Visit [facility] - [facility] [address], [place] [address] Clemente Gerardo MD [address] [facility], [address] [place] [phone] 12/06/2024 10:15 EST Office Visit [facility] Ophthalmology [facility] [address] [place] [address] Spike Puentes MD [address] [place] [phone] Scheduled Procedures Name Priority Associated Diagnoses Date/Ti me INSERTION, PENILE PROSTHESIS, INFLATABLE, 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 10/14/2024 11:00 EST documented as of this encounter Visit Diagnoses Diagnosis Acquired adductovarus rotation of toe, left- Primary Pain of toe of left foot Pain in limb Exostosis of toe Exostosis of unspecified site Erectile dysfunction after radical prostatectomy documented in this encounter Care Teams Carpenter Labor Supervisor Relationship Specialty Start Date End Date Vel Santos MD PCP - General 10/30/11 03/09/23 documented as of this encounter
--- OUTSIDE RECORDS SUMMARY | 2024-07-19 22:13 | XMS_ITS | Encounter Summary ---
Author Organization [facility] Address [address] [place] [address] Care Team Providers Care Cash Grain Grower Name Role Phone Vel Santos MD Primary Care Provider Unava ilable Reason for Visit * Reason Comments Hypertension Diabetes Mood Disorder Seizures Encounter Details Date Type Department Care Team (Latest Contact Info) Description 2020 16:00 EDT Telemedicine [facility] Medicine [facility] [address], [address] [place] [address] Vel Santos MD Arteriosclerotic cardiovascular disease (Primary Dx); Essential hypertension; Dysthymia; Atypical seizure (HCC-CMS); Bradycardia Social History Tobacco Use Types Packs/Day Years Used Date Smoking Tobacco: Former Smokeless Tobacco: Never Alcohol Use Standard Drinks/Week Comments Not Asked 0 (1 standard drink = 0.6 oz pur e alcohol) Sex and Gender Information Value Date Recorded [...] Dispensed Refills Start Date End Da te amoxicillin (AMOXIL) 500 mg capsule Take 4 Caps by mouth daily for 1 day. 4 Cap 2020 03/20/2020 amoxicillin (AMOXIL) 500 mg capsule Take 4 Caps by mouth daily for 1 day. 4 Cap 2020 03/20/2020 amLODIPine (NORVASC) 5 mg tablet Take 1 Tab by mouth daily. 90 Tab 4 2020 10/30/2020 documented in this encounter Progress Notes * Vel Santos MD - 2020 1600 EDT [facility] Video Visit Today's visit was provided through telemedicine video conferencing: The location of the patient: Home The location of the provider: Home office Verbal consent: The concept of ???Telemedicine?? has [...] or auxiliary staff: yes. Subjective: Chief Complaint(s): Hypertension; Diabetes; Mood Disorder; and Seizures HPI: This patient calls today because of a concern that with his pulse oximeter his pulse rate is low and at times his oxygen saturation is also in the low 90s. He is maintained on a beta-emily twice a day. At times he does feel dizzy when he stands up. His oxygen saturation usually is around 93% and he wonders why it is not higher though this is been chronic for him. It is been a stressful few months with the pandemic affecting his [employer] business. He is happy things are opening back up again soon. He has gained weight through this period of time with weight now up to about 270. It is his goal that he cut his dose of metoprolol out and switch to something out else as his bloodpressure is still not under great control. He says that systolics run around 158 159 with an occasional 130 only seen on an occasional basis. His heart rate is sometimes in the mid 40s as well which concerns him. He does have slight edema in his extremities though this is minor. He relates how I had him once delta diuretic for his blood pressure but he did not really change anything He mentions that he has been to see his neurologist who placed him on Lamictal for his seizure likeactivities these have completely gone away and he is quite relieved about this 1 factor seems like affecting it was the high dose of Wellbutrin he was on. He seems to be tolerating the lower dose of Wellbutrin now with a very stable mood the best I been in years. In terms of cardiac symptoms he has none it is been 3 to 4 years since his last hospitalization forthis. I have reviewed patient's tobacco history: reports that he has quit smoking. He has never used smokeless tobacco. I have reviewed current problem list and current medications. ROS: ROS See hpi Objective: Examination: Home Vitals: There were no vitals taken for this visit. Pertinent exam findings: appears well, neck supple, non-labored breathing and mood and affect appropriate Data reviewed with patient: Reviewed and/or ordered active problem list, medication list, notes from last encounter tests Assessment & Plan: Roland was seen today for hypertension, diabetes, mood disorder and seizures. Diagnoses and all orders for this visit: Arteriosclerotic cardiovascular disease Comments: doing well, should be fine off of a betablocker given the length of time since mi Essential hypertension Comments: trial amlodipine, to call in 7-10 days with results Dysthymia Comments: stable on low dose of meds Atypical seizure (HCC-CMS) Bradycardia Comments: due to dizziness, and less than optimal control of bp, will switch off of it and try other class ofmeds Other orders - Discontinue: metoprolol XL (TOPROL-XL) 50 mg tablet; 1/2 tab(s) - amLODIPine (NORVASC) 5 mg tablet; Take 1 Tab by mouth daily. - Discontinue: amoxicillin (AMOXIL) 500 mg capsule; Take 4 Caps by mouth daily for 1 day. - amoxicillin (AMOXIL) 500 mg capsule; Take 4 Caps by mouth daily for 1 day. A total of 40 minutes was spent on this encounter on the day of this encounter. The following individuals and their role did participate in today's encounter visit: Provider: Vel Santos MD Patient, his Xin documented in this encounter Plan of Treatment Upcoming Encounters Date Type Department Care Team (Late st Contact Info) Description 10/04/2024 9:50 EST Appointment [facility] Pre-Surgical Testing [address] [place] [address] [phone] 10/14/2024 11:00 EST Hospital Encounter [facility] OR [address] [place] [address] [phone] Clemente Gerrado MD [address] [place] [address] [phone] 10/14/2024 11:00 EST - 10/14/2024 14:35 EST Surgery [facility] OR [address] [place] [address] [phone] Clemente Gerardo MD [address] [place] [address] [phone] Implantation of inflatable penile prosthesis [53126 (CPT??)] 10/17/2024 9:00 EST Telemedicine [facility] Urology [address] [phone] Nurse Call, [place] [facility] Urology 10/31/2024 15:00 EST Post-op Visit [facility] [address] [phone] Clemente Gerardo MD [address] [place] [phone] 12/06/2024 10:15 EST Office Visit [facility] Ophthalmology [address] [phone] Spike Puentes MD [address] [place] [phone] Scheduled Procedures Name Priority Associated Diagnoses Date/Ti me INSERTION, PENILE PROSTHESIS, INFLATABLE, 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 10/14/2024 11:00 EST documented as of this encounter Visit Diagnoses Diagnosis Arteriosclerotic cardiovascular disease- Primary Unspecified cardiovascular disease Essential hypertension Unspecified essential hypertension Dysthymia Dysthymic disorder Atypical seizure (HCC-CMS) Other convulsions Bradycardia Other specified cardiac dysrhythmias Erectile dysfunction after radical prostatectomy documented in this encounter Discontinued Medications Medication Sig Discontinue Reason Start Date End Da te metoprolol XL (TOPROL-XL) 50 mg tablet 1/2 tab(s) 03/20/2020 amoxicillin (AMOXIL) 500 mg capsule Take 4 Caps by mouth daily for 1 day. Reorder 2020 03/20/2020 documented as of this encounter Historical Medications * This list may reflect changes made after this encounter. Medication Sig Dispensed Refills Start Date End Date metoprolol XL (TOPROL-XL) 50 mg tablet 1/2 tab(s) 03/20/2020 added in this encounter Care Teams Cash Grain Grower Relationship Specialty Start Date End Date Vel Santos MD PCP - General 10/30/11 03/09/23 documented as of this encounter
--- OUTSIDE RECORDS SUMMARY | 2024-07-19 22:13 | XMS_ITS | Encounter Summary ---
Author Organization [facility] Address [address] [place] [address] Care Team Providers Care Squeegeer And Former Name Role Phone Vel Santos MD Primary Care Provider Unava ilable Reason for Visit * Reason Onset Date Comments Medications Refill 02/01/2021 Encounter Details Date Type Department Care Team (Late st Contact Info) Description 02/01/[address] [facility] Medicine [facility] [address] [place], [place] [phone] Vel Santos MD Medications Refill Social History [...] Dispensed Refills Start Date End Da te blood glucose test strips Brand: One Touch Ultra, test blood sugar once daily 100 Each 3 02/04/2021 documented in this encounter Miscellaneous Notes * Telephone Encounter - Raina Trevino RN - 02/04/2021 0958 EDT [facility] MEDICATION REFILL Medication:test strips Medication, dose, directions verified: tet daily Pharmacy verified: [facility] Last office visit: 01/22/21 Next office visit: none TC-med pended * Telephone Encounter - Sharron Hood MA - 02/01/2021 1645 EDT Patient's EC calling the Rx line requesting refills of the following medications: One Touch Ultra test strips; 90-day supply Pharmacy: [facility] in [place] documented in this encounter Plan of Treatment Upcoming Encounters Date Type Department Care Team (Late st Contact Info) Description 10/04/2024 9:50 EST Appointment [facility] Pre-Surgical Testing [address] [place] [address] [phone] 10/14/2024 11:00 EST Hospital Encounter [facility] OR [address] [place] [address] [phone] Clemente Gerardo MD [address] [place] [address] [phone] 10/14/2024 11:00 EST - 10/14/2024 14:35 EST Surgery [facility] OR [address] [place] [address] [phone] Clemente Gerardo MD [address] [place] [address] [phone] Implantation of inflatable penile prosthesis [28164 (CPT??)] 10/17/2024 9:00 EST Telemedicine [facility] Urology - [address] [phone] Nurse Call, [facility] Urology 10/31/2024 15:00 EST Post-op Visit [facility] Urology - [address] [phone] Clemente Gerardo MD [address] [place] [address], [address] [place] [phone] 12/06/2024 10:15 EST Office Visit [facility] Ophthalmology [facility] [address] [place], [place] [phone] Spike Puentes MD [address] [place] [phone] Scheduled Procedures Name Priority Associated Diagnoses Date/Ti me INSERTION, PENILE PROSTHESIS, INFLATABLE, 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 10/14/2024 11:00 EST documented as of this encounter Visit Diagnoses Not on filedocumented in this encounter Care Teams Squeegeer And Former Relationship Specialty Start Date End Date Vel Santos MD PCP - General 10/30/11 03/09/23 documented as of this encounter
--- OUTSIDE RECORDS SUMMARY | 2024-07-19 22:13 | XMS_ITS | Encounter Summary ---
Author Organization [facility] Address [address] [place] [address] Care Team Providers Care Vat Packer Name Role Phone Vel Santos MD Primary Care Provider Unava ilable Reason for Visit * Reason Comments Puncture Wound Need Tetnus Encounter Details Date Type Department Care Team (Late st Contact Info) Description 06/20/2020 15:30 EDT Walk-In [facility] [address] [place] [address] [phone] Ale Louise, PA-C [address] [place] [phone] Puncture wound (Primary Dx) Social History Tobacco [...] Reading Time Taken Comments Blood Pressure 137/80 06/20/2020 1538 EDT Pulse 80 06/20/2020 1538 EDT Temperature 37.1 ??C (98.7 ??F) 06/20/2020 1538 EDT Respiratory Rate 16 06/20/2020 1538 EDT Oxygen Saturation 97% 06/20/2020 1538 EDT Inhaled Oxygen Concentration - - Weight [...] this encounter Patient Instructions * Patient Instructions* Ale Louise PA-C - 06/20/2020 15:30 EDT You have declined imaging today. I can not entirely exclude a foreign body or bone involvement. Take cipro as directed. Soak the affected foot several times daily. Follow-up with your PCP in 2-3 daysfor recheck or sooner for worsening symptoms. documented in this encounter Ordered Prescriptions Prescription Sig Dispensed Refills Start Date End Da te ciprofloxacin HCl (CIPRO) 500 mg tabletIndications:Puncture wound Take 1 Tab by mouth 2 times daily for 5 days. 10 Tab 06/20/2020 06/25/2020 documented in this encounter Progress Notes * Luke Muhammad RN - 06/20/2020 1530 EDT CC: Has the patient contacted their PCP regarding this chief complaint? No Covid Screening: Fever, chills, body aches: No New or unusual cough, SOB: No Decrease/change in sense of taste or smell: No Sore throat or headache: No Have you been in close contact (less than 6 ft for more than 15 minutes) with suspected or confirmed person with Covid-19 in past 14 days: No Travel outside of [place] in last 14 days? No If yes, was it to a low risk location? Reference [place] Travel Map to see if the location falls within a low risk area (<400 casesper million): https://accd.[place].gov/covid-19/restart/trtrc-iyvbu-nhugko * Ale Louise PA-C - 06/20/2020 1530 EDT [facility] Chief Complaint(s): Puncture Wound (Need Tetnus) HPI: This is a 70-year-old male who presents to express care stating that he stepped on a nail that was sticking through a board while wearing his sneaker yesterday. Last Tdap greater than 5 years. He reports that his did irrigate the wound. Has noticed mild redness today. No drainage. No fever or chills. No history of MRSA infections in the past. I have reviewed current problem list, current medications and allergies ROS: Review of Systems Constitutional: Negative. HENT: Negative. Respiratory: Negative. Cardiovascular: Negative. Objective: Examination: Vitals: BP 137/80 Pulse 80 Temp 37.1 ??C (98.7 ??F) Resp 16 SpO2 97% Physical Exam Vitals signs and nursing note reviewed. HENT: Head: Normocephalic. Musculoskeletal: Comments: Examination of the right foot reveals a puncture wound plantar surface overlying the distal 3rd MT. Minimal erythema. Mild tenderness. No palpable or visible fb. No lymphangitic streaking. Distal sensation intact. Pulses intact. Good cap refill. Neurological: Mental Status: He is alert. Procedures Assessment & Plan: 1. Puncture wound 70yo afebrile male with a puncture wound right foot that was sustained yesterday. Imaging is declined by the patient. I have prescribed a short course of ciprfloxacin-medication precautions discussed. Tdap is given. Follow-up precautions reviewed. - ciprofloxacin HCl (CIPRO) 500 mg tablet; Take 1 Tab by mouth 2 times daily for 5 days. Dispense: 10 Tab; Refill: 0 - TDAP VACCINE =>7YO IM Questions and concerns were answered. Patient expressed understanding of plan. documented in this encounter Plan of Treatment Upcoming Encounters Date Type Department Care Team (Late st Contact Info) Description 10/04/2024 9:50 EST Appointment [facility] Pre-Surgical Testing [address] [place] [address] [phone] 10/14/2024 11:00 EST Hospital Encounter [facility] OR [address] [place] [address] [phone] Clemente Gerardo MD [address] [place] [address] [phone] 10/14/2024 11:00 EST - 10/14/2024 14:35 EST Surgery [facility] OR [address] [place] [address] [phone] Clemente Gerardo MD [address] [place] [address] [phone] Implantation of inflatable penile prosthesis [28872 (CPT??)] 10/17/2024 9:00 EST Telemedicine [facility] Urology [address] [phone] Nurse Call, [facility] Urology 10/31/2024 15:00 EST Post-op Visit [facility]rolog[address] [phone] Clemente Gerardo MD [address] [place] [address] [phone] 12/06/2024 10:15 EST Office Visit [facility] Ophthalmology [address] [phone] Spike Puentes MD [address] [place] [address] [phone] Scheduled Procedures Name Priority Associated Diagnoses Date/Ti me INSERTION, PENILE PROSTHESIS, INFLATABLE, 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 10/14/2024 11:00 EST documented as of this encounter Visit Diagnoses Diagnosis Puncture wound- Primary Open wound(s) (multiple) of unspecified site(s), without mention of complication Erectile dysfunction after radical prostatectomy documented in this encounter Discontinued Medications Medication Sig Discontinue Reason Start Date End Da te Alcohol Swabs pads, medicated use as directed prior to Trimix administration 06/13/2011 06/20/2020 azithromycin (ZITHROMAX) 250 mg tablet Take 2 tablets (500 mg) on day 1, followed by 1 tablet (250 mg) once daily on days 2 through 5. 01/27/2020 06/20/2020 mupirocin (BACTROBAN) 2 % ointment Apply 1 application topically 3 times daily. 06/06/2019 06/20/2020 Misc[facility] Medical Supply misc needles gauge:22 length:1, Sig: self IM once a week for testosterone 02/17/2017 06/20/2020 Misc[facility] Medical Supply misc needles gauge: 18 length:, Si.5 in self IM once a week for testosterone 11/09/2013 06/20/2020 documented as of this encounter Orders Immunization/Injection Count Last Ordered Date First Ordered Date TDAP VACCINE =>7YO IM 1 06/20/2020 documented in this encounter Care Teams Vat Packer Relationship Specialty Start Date End Date Vel Santos MD PCP - General 10/30/11 03/09/23 documented as of this encounter
--- OUTSIDE RECORDS SUMMARY | 2024-07-19 22:13 | XMS_ITS | Encounter Summary ---
Author Organization [facility] Address [address] [place] [address] Care Team Providers Care Horse Trainer Name Role Phone Vel Santos MD Primary Care Provider Unava ilable Reason for Visit * Reason Onset Date Comments Medication Management 10/07/2021 Fax Refill s needed Encounter Details Date Type Department Care Team (Late st Contact Info) Description 10/07/2021 Telephone [facility] Family Medicine [facility] [address] , [address] [place] [address] Vel Santos MD Medication Management (Fax Refills needed) Social History Tobacco Use Types Packs/Day Years [...] Tablet by mouth daily. 90 Tablet 3 10/08/2021 10/16/2022 pantoprazole (PROTONIX) 40 mg tablet Take 1 Tablet by mouth daily for 360 days. 90 Tablet 3 10/08/2021 10/16/2022 amLODIPine (NORVASC) 10 mg tablet Take 1 Tablet by mouth daily for 90 days. 90 Tablet 3 10/08/2021 10/16/2022 documented in this encounter Miscellaneous Notes * Telephone Encounter - Mahnaz Mcgovern RN - 10/08/2021 1041 EST These were sent as tabbed to [facility] mail order pharmacy on 09/05/21 for a year. I called Roland- theyactually decided not to use this mail order pharmacy. He would like these re-sent to [email or web address]. Done * Telephone Encounter - Talisha Arredondo - 10/07/2021 1528 EST Received Fax System cancelled the following scripts, can we please send new ones? Amlodipine Pant oprazole Plavix [facility] documented in this encounter Plan of Treatment Upcoming Encounters Date Type Department Care Team (Late st Contact Info) Description 10/04/2024 9:50 EST Appointment [facility] Pre-Surgical Testing [address], [place] [phone] 10/14/2024 11:00 EST Hospital Encounter [facility] OR [address] [place], [place] [phone] Clemente Gerardo MD [address] [facility], Level [address] [place] [phone] 10/14/2024 11:00 EST - 10/14/2024 14:35 EST Surgery [facility] OR [address] [place] [address] [phone] Clemente Gerardo MD 111 [facility] 5 [place] [phone] Implantation of inflatable penile prosthesis [22615 (CPT??)] 10/17/2024 9:00 EST Telemedicine [facility] Urology [address] [phone] Nurse Call, [facility] Urology 10/31/2024 15:00 EST Post-op Visit [facility] [address] [phone] Clemente Gerardo MD [address] [place] [address] [phone] 12/06/2024 10:15 EST Office Visit [address] [phone] Spike Puentes MD [address] [place] [phone] Scheduled Procedures Name Priority Associated Diagnoses Date/Ti [...] by mouth daily for 90 days. Reorder 09/05/2021 10/08/2021 clopidogreL (PLAVIX) 75 mg tabletIndications:Dyslip idemia Take 1 Tablet by mouth daily. Reorder 09/05/2021 10/08/2021 pantoprazole (PROTONIX) 40 mg tablet Take 1 Tablet by mouth daily for 360 days. Reorder 09/05/2021 10/08/2021 documented as of this encounter Care Teams Horse Trainer Relationship Specialty Start Date End Date Vel Santos MD PCP - General 10/30/11 03/09/23 documented as of this encounter
--- OUTSIDE RECORDS SUMMARY | 2024-07-19 22:13 | XMS_ITS | Encounter Summary ---
Author Organization [facility] Address [address] [place] [address] Care Team Providers Care Parole Director Name Role Phone Vel Santos MD Primary Care Provider Dave ilmateo Encounter Details Date Type Department Care Team (Latest Contact Info) Description 04/18/2020 Travel Social History Tobacco Use Types Packs/Day [...] have Coronavirus / COVID-19? No / Unsure 04/18/2020 13:00 EDT documented as of this encounter Functional [...] [facility] Pre-Surgical Testing [address] [place] [address] 10/14/2024 11:00 EST Hospital Encounter [facility] OR [address] [place] [address] [phone] Clemente Gerardo MD [address] [place] [address] [phone] 10/14/2024 11:00 EST - 10/14/2024 14:35 EST Surgery [facility] OR [address] [place] [address] [phone] Clemente Gerardo MD [address] [place] [address] [phone] Implantation of inflatable penile prosthesis [71947 (CPT??)] 10/17/2024 9:00 EST Telemedicine [facility] Urology [address] [phone] Nurse Call, [facility] Urology 10/31/2024 15:00 EST Post-op Visit [address] [phone] Clemente Gerardo MD [address] [place] [address] [phone] 12/06/2024 10:15 EST Office Visit [facility] Ophthalmology [address] [address] Spike Puentes MD [address] [place] [phone] Scheduled Procedures Name Priority Associated Diagnoses Date/Ti me INSERTION, PENILE PROSTHESIS, INFLATABLE, 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 10/14/2024 11:00 EST documented as of this encounter Visit Diagnoses Not on filedocumented in this encounter Care Teams Parole Director Relationship Specialty Start Date End Date Vel Santos MD PCP - General 10/30/11 03/09/23 documented as of this encounter
--- OUTSIDE RECORDS SUMMARY | 2024-07-19 22:13 | XMS_ITS | Encounter Summary ---
Author Organization [facility] Address [address] [place] [address] Care Team Providers Care Environmental Technical Officer Name Role Phone Vel Santos MD Primary Care Provider Unava ilable Reason for Visit * Reason Comments Dizziness Bruise Encounter Details Date Type Department Care Team (Latest Contact Info) Description 07/31/2020 13:00 EDT Office Visit [facility] Family Medicine [facility] [address], [address] [place] [address] Vel Santos MD Arteriosclerotic cardiovascular disease (Primary Dx); Bruising; Atypical seizure (HCC-CMS); Pulmonary nodule Social History Tobacco Use Types Packs/Day Years [...] Sign Reading Time Taken Comments Blood Pressure 144/84 07/31/2020 1312 EDT Pulse 91 07/31/2020 1312 EDT Temperature - - Respiratory Rate - - Oxygen Saturation 94% 07/31/2020 1312 EDT Inhaled Oxygen Concentration - - Weight 126 kg (277 lb 12.8 oz) 07/31/2020 1312 E DT Height - - Body Mass Index - - documented in this encounter Functional Status Functional Status Response Date of Assess ment Because of a physical, menta l, or emotional condition, does this person have difficulty doing errands alone such as visiting a doctor's office or shopping? No 03/02/2018 documented as of this encounter Progress Notes * Vel Santos MD - 07/31/2020 1300 EDT [facility] [place] Subjective: Chief Complaint(s): Dizziness and Bruise HPI: Roland comes in today with numerous concerns 1. Had some bruising now resolved one was on his left arm the other on his abdomen where air conditioner pressed up against it and another on his leg and foot. He does take Plavix. Has not added any NSAIDs to this. Would like some baseline labs to check this out. 2. Has noticed in certain certain situations that his balance is not as good speaks about trying towork on something at one point he was standing on top of a utility panel up close to something leaned his head back, and has glasses on which did not help, and he fell backwards. Has noticed this same type of situation in the shower when he tilts his head back. Has not had any focal loss of strength in his legs or arms. 3. Has work with Dr. Aguirre for a number of years after it became difficult to see Dr. Benavidez at [facility]. Called her recently because of what felt like an onset of focal type seizures in his back. Kegley as if the conversation was very rude and that she just was throwing out medication to him. He isdone so well on the Lamictal he would like to just go up on the dose subtly and give this a try (maynor 50 mg twice daily and would like to go to 75 mg twice daily). Asks my permission to do this and backup. Is thinking about whether he wants to reengage with another neurologist at this point. 4. Understands my hesitancy to order an MRI of his heart given the echocardiogram findings that he sent to me he will discuss this with his drain layer #5 wonders when the follow-up for the pulmonary nodules will occur. I have reviewed patient's tobacco history: reports that he has quit smoking. He has never used smokeless tobacco. Allergies Allergen Reactions ??? Other - See Comments ??? Cyclobenzaprine Other reaction(s): Unknown ??? Ibuprofen Other reaction(s): edema ??? Lisinopril Swelling of tongue ??? Naproxen Sodium Other reaction(s): edema ??? Sulfa (Sulfonamide Antibiotics) ??? Tramadol Other reaction(s): DIZZINESS Current Outpatient Medications: ??? amLODIPine (NORVASC) 5 mg tablet, Take 1 Tab by mouth daily., Disp: 90 Tab, Rfl: 4 ??? aspirin 325 mg tablet, Take 325 mg by mouth daily., Disp: , Rfl: ??? atorvastatin (LIPITOR) 20 mg tablet, , Disp: , Rfl: ??? blood glucose meter, Glucose monitor,Sig: test once a day once a day, Disp: , Rfl: ??? budesonide-formoterol HFA (SYMBICORT) 80-4.5 mcg/actuation HFA aerosol inhaler inhaler, Inhale 2 Puffs as directed 2 times daily., Disp: , Rfl: ??? buPROPion (WELLBUTRIN SR) 150 mg SR tablet, Take 1 Tab by mouth every morning., Disp: , Rfl: ??? Cholecalciferol, Vitamin D3, (VITAMIN D3) 2,000 unit capsule, Take by mouth daily., Disp: , Rfl: ??? clopidogreL (PLAVIX) 75 mg tablet, Take 1 Tab by mouth daily for 360 days., Disp: 90 Tab, Rfl: 3 ??? DIABETIC SUPPLIES, MISCELLAN. MIS, Syringe 3cc, Disp: , Rfl: ??? econazole nitrate 1 % cream, Apply 1 application topically 2 times daily as needed., Disp: , Rfl: ??? escitalopram oxalate (LEXAPRO) 10 mg tablet, , Disp: , Rfl: ??? lamoTRIgine (LAMICTAL) 25 mg tablet, Take 25 mg by mouth 2 times daily., Disp: , Rfl: ? ? LANCETS & BLOOD GLUCOSE STRIPS MISC, test strips and lancets for glucose monitor , Sig: test once a day test once a day, Disp: , Rfl: ??? MEDICAL MARIJUANA, , Disp: , Rfl: ??? nitroGLYCERIN (NITROSTAT) 0.4 mg SL tablet, Place 1 Tab under the tongue as needed., Disp: , Rfl: ??? nystatin (MYCOSTATIN) ointment, Apply 1 application topically 3 times daily as needed., Disp: ,Rfl: ??? Efwgx-0-JYF-EPA-Fish Oil 1,000 (120-180) mg capsule, Take 1,000 mg by mouth., Disp: , Rfl: ??? pantoprazole (PROTONIX) 40 mg tablet, Take 1 Tab by mouth daily., Disp: 90 Tab, Rfl: 3 ??? ubidecarenone/vitamin E mixed (COQ10 SG 100 ORAL), Take by mouth daily., Disp: , Rfl: Past Medical History: Diagnosis Date ??? Amblyopia per pt-left eye ??? Cerebral artery occlusion with cerebral infarction (HCC-CMS) ??? Hyperlipidemia ??? Hypertension ??? UT (myocardial infarction) ([facility]-CMS) ??? Rheumatoid disease ([facility]-CMS) Family History Problem Relation Age of Onset ??? Macular Degeneration Neg Hx ??? Retinal Detachment Neg Hx ??? Glaucoma Neg Hx Past Surgical History: Procedure Laterality Date ??? CARDIAC CATHERIZATION 12/2004 normal [place] [facility] [place]?? COLONOSCOPY 12/2004 WNL - Dr. Turcios f/u 10 yrs ??? RADICAL PROSTATECTOMY 12/2004 Laparoscopic radical prostatectomy, umbilical hernia repair - Dr. Encinas [facility] [place]?? SINUS SURGERY nasal / sinus surgery [...] file Gets together: Not on file Attends alevism service: Not on file Active member of [...] list and current medications. ROS: ROS See HPI Objective: Examination: Vitals: BP (!) 144/84 (BP Cuff Location: Left arm, BP Patient Position: Sitting, BP Cuff Sizes: Adult, large) Pulse 91 Wt (!) 126 kg (277 lb 12.8 oz) SpO2 94% There is no height or weight on file to calculate BMI. Physical Exam General appearance: Bright man makes good eye contact Skin: No bruising seen. Normal skin color. Neuro: I had the patient stand up the middle the room with his eyes open he does fine but when he shuts his eyes he does start to waver [id number]. I did some gentle pushing and he is slightly unsteady on his feet though able to maintain his stance. Data reviewed with patient echo cardiogram results from [facility], past CT scan. Assessment & Plan: 1. Arteriosclerotic cardiovascular disease Stable at present. Reminded to get flu shot at pharmacy. 2. Bruising PNEUMOCOCCAL POLYSACCHARIDE (PPSV23) VACCINE (PNEUMOVAX-23) 23- VALENT =>2YO SQ/IM COMPLETE BLOOD COUNT HEPATIC FUNCTION PANEL (ALB,ALK PHOS,ALT,AST,DBIL,TOT CHRISTIANNE,TOT PROT) Baseline labs to be checked 3. Atypical seizure (HCC-[facility]) Permission given to increase Lamictal to 75 mg twice daily. To call, if working well and tolerated to increase dose at pharmacy 4. Pulmonary nodule To have follow-up CT scan. Reassurance given to patient. Vel Santos MD documented in this encounter Plan of Treatment Upcoming Encounters Date Type Department Care Team (Late st Contact Info) Description 10/04/2024 9:50 EST Appointment [facility] Pre-Surgical Testing [address] [place] [address] 10/14/2024 11:00 EST Hospital Encounter [facility] [place] [address] [place] [address] [phone] Clemente Gerardo MD [address] [place] [address] [phone] 10/14/2024 11:00 EST - 10/14/2024 14:35 EST Surgery [facility] OR [address] [place] [address] [phone] Clemente Gerardo MD [address] [place] [address] [phone] Implantation of inflatable penile prosthesis [94671 (CPT??)] 10/17/2024 9:00 EST Telemedicine [facility] Urology [address] [phone] Nurse Call, [facility] Urology 10/31/2024 15:00 EST Post-op Visit [facility] [phone] Clemente Gerardo MD [address] [place] [address] [phone] 12/06/2024 10:15 EST Office Visit [facility] Ophthalmology [address] [phone] Spike Puentes MD [address] [place] [phone] Scheduled Orders Name Type Priority Associated Diagnoses Orde r Schedule HEPATIC FUNCTION PANEL (ALB,ALK PHOS,ALT,AST,DBIL,TOT CHRISTIANNE,TOT PROT) Lab Routine Bruising Ordered: 08/01/2020 Scheduled Procedures Name Priority Associated Diagnoses Date/Ti me INSERTION, PENILE PROSTHESIS, INFLATABLE, 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 10/14/2024 11:00 EST documented as of this encounter Visit Diagnoses Diagnosis Arteriosclerotic cardiovascular disease- Primary Unspecified cardiovascular disease Bruising Contusion of unspecified site Atypical seizure (HCC-CMS) Other convulsions Pulmonary nodule Solitary pulmonary nodule Erectile dysfunction after radical prostatectomy documented in this encounter Orders Immunization/Injection Count Last Ordered Date First Ordered Date PNEUMOCOCCAL POLYSACCHARIDE (PPSV23) VACCINE (PNEUMOVAX-23) 23-VALENT =>2YO SQ/IM 1 08/01/2020 documented in this encounter Care Teams Environmental Technical Officer Relationship Specialty Start Date End Date Vel Santos MD PCP - General 10/30/11 03/09/23 documented as of this encounter
--- OUTSIDE RECORDS SUMMARY | 2024-07-19 22:13 | XMS_ITS | Encounter Summary ---
Author Organization [facility] Address [address] [place] [address] Care Team Providers Care Telephone Worker Name Role Phone Vel Santos MD Primary Care Provider Unava ilable Reason for Visit * Reason Onset Date Comments Medication Management 01/31/2021 Encounter Details Date Type Department Care Team (Late st Contact Info) Description 01/31/2021 Telephone [facility] Medicine [facility] [address] [place], [place] [phone] Vel Santos MD Medication Management Social History [...] DAILY IN THE MORNING 90 Tab 3 01/31/2021 09/05/2021 documented in this encounter Miscellaneous Notes * Telephone Encounter - Claudette Maier LPN - 01/31/2021 0849 EDT [facility] MEDICATION REFILL Medication: bupropion Medication, dose, directions verified: yes Pharmacy verified: yes Last office visit: 01/22/2021 Next office visit: pending * Telephone Encounter - Ragini Hdz - 01/31/2021 0836 EDT Pt needs refill on bupROPion [facility] pharmacy. documented in this encounter Plan of Treatment Upcoming Encounters Date Type Department Care Team (Late st Contact Info) Description 10/04/2024 9:50 EST Appointment [facility] Pre-Surgical Testing [address] [place] [address] [phone] 10/14/2024 11:00 EST Hospital Encounter [facility] OR [address] [place] [address] [phone] Clemente Gerardo MD [address] [place] [address] [address] [place] [phone] 10/14/2024 11:00 EST - 10/14/2024 14:35 EST Surgery [facility] OR [address] [place] [address] [phone] Clemente Gerardo MD [address] [place] [address] [phone] Implantation of inflatable penile prosthesis [11209 (CPT??)] 10/17/2024 9:00 EST Telemedicine [facility] Urology - [facility] [address] [place], [place] [phone] Nurse Call, [facility] Urology 10/31/2024 15:00 EST Post-op Visit [facility] Urology - [facility] [address] [place], [place] [phone] Clemente Gerardo MD [address] [facility], [address] [place] [phone] 12/06/2024 10:15 EST Office Visit [facility] Ophthalmology [facility] [address] [place] [address] Spike Puentes MD [address] [place] [phone] Scheduled Procedures Name Priority Associated Diagnoses Date/Ti me INSERTION, PENILE PROSTHESIS, INFLATABLE, 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 10/14/2024 11:00 EST documented as of this encounter Visit Diagnoses Not on filedocumented in this encounter Discontinued Medications Medication Sig Discontinue Reason Start Date End Da te buPROPion (WELLBUTRIN SR) 150 mg SR tablet TAKE 1 TABLET BY MOUTH ONCE DAILY IN THE MORNING Reorder 12/07/2020 01/31/2021 documented as of this encounter Care Teams Telephone Worker Relationship Specialty Start Date End Date Vel Santos MD PCP - General 10/30/11 03/09/23 documented as of this encounter
--- OUTSIDE RECORDS SUMMARY | 2024-07-19 22:13 | XMS_ITS | Encounter Summary ---
Author Organization [facility] Address [address] [place] [address] Care Team Providers Care Highway Painter Helper Name Role Phone Vel Santos MD Primary Care Provider Unava ilable Reason for Visit * Reason Comments Follow-up Patient returns for SLT, left eye Encounter Details Date Type Department Care Team (Late st Contact Info) Description 12/02/2021 13:15 EST Office Visit [facility] Ophthalmology [facility] [address] [place] [address] Spike Puentes MD [address] [place] [phone] Social History Tobacco Use Types Packs/Day Years [...] Progress Notes * Spike Puentes MD - 12/02/2021 1315 EST Laser Trabeculoplasty Selective - OS - Left Eye Selective Laser Trabeculoplasty Note Roland Vega is here and consented to the following: Procedure Selective laser trabeculoplasty Indication: Ocular hypertension Side: Left Eye Surgeon: Spike Puentes MD Allergies Allergen Reactions ??? Other - See Comments ??? Cyclobenzaprine Other reaction(s): Unknown ??? Ibuprofen Other reaction(s): edema ??? Lisinopril Swelling of tongue ??? Naproxen Sodium Other reaction(s): edema ??? Sulfa (Sulfonamide Antibiotics) ??? Tramadol Other reaction(s): DIZZINESS There were no vitals taken for this visit. PROCEDURE NOTE: Eye Drops: 0.5% Iopidine drop prior to procedure, and immediately after procedure Anesthesia Type: Topical Proparacaine 0.5% Ophthalmic solution. Pre-Procedure verification: A timeout immediately prior to incision/procedure has been conducted. The patient's identity, procedure and when applicable: fire risk assessment, pre- procedure checklist, side/site, or special requirements was verbally confirmed prior to the procedure. Operative Note: After informed consent was obtained the procedural site was marked and a procedural time-out took place (as documented above). Drops of proparacaine 0.5% were given in the left eye, followed by 1 drop of Iopidine 0.5%. A total of 102 exposures were applied to the trabecular meshwork 360 degrees using a gonioscopy lens. The power was 0.4-0.6 millijoules per shot (for a total of 57.31 mJ) . After the procedure the patient was given 1 drop of Iopidine 0.5% and the intraocular pressure was checked 30 mins after procedure. Lens used: gonioscopy precision lens polisher: JOZEF Caruso Complications/Disposition: The patient tolerated the procedure well and left the office in good condition. Patient advised to call if tobin or flashes of light are seen, or has any concerns. Post operative floaters are typical and were discussed. Post-procedure instructions: Return in 1-2 weeks, call if any problems occur. Signature: Spike Puentes MD documented in this encounter Plan of Treatment Upcoming Encounters Date Type Department Care Team (Late st Contact Info) Description 10/04/2024 9:[address] [facility] Pre-Surgical Testing [address] [place] [address] [phone] 10/14/2024 11:[address] [facility] OR [address] [place] [address] [phone] Clemente Gerardo MD [address] [place] [address] [phone] 10/14/2024 11:00 EST - 10/14/2024 14:[address] [facility] [place] [address] [place] [address] [phone] Clemente Gerardo MD [address] [place] [address] [phone] Implantation of inflatable penile prosthesis [21260 (CPT??)] 10/17/2024 9:00 EST Telemedicine [facility] [phone] Nurse Call, [facility] Urology 10/31/2024 15:00 EST Post-op Visit [facility] [phone] Clemente Gerardo MD [address] [place] [phone] 12/06/2024 10:[address] [facility] [address] [place] [address] Spike Puentes MD [address] [place] [phone] Scheduled Procedures Name Priority Associated Diagnoses Date/Ti me INSERTION, PENILE PROSTHESIS, INFLATABLE, 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 10/14/2024 11:00 EST documented as of this encounter Procedures Procedure Name Priority Date/Time Associated Diagnosis Comments LASER TRABECULOPLASTY SELECTIVE - OS - LEFT EYE Routine 12/02/2021 14:45 EST Ocular hypertension, left documented in this encounter Results * LASER TRABECULOPLASTY SELECTIVE - OS - LEFT EYE (12/02/2021 14:45 EST) Narrative [facility] POINT OF CARE - 12/02/2021 14:45 EST Selective Laser Trabeculoplasty Note Roland Marisela Vega is here and consented to the following: Procedure ??Selective laser trabeculoplasty Indication: ??Ocular hypertension Side: ??Left Eye ?? Surgeon: ??Spike Puentes MD ?? Allergies Allergen Reactions ? ? Other - See Comments ? Cyclobenzaprine ?Other reaction(s): Unknown ? ? Ibuprofen ?Other reaction(s): edema ? ? Lisinopril Swelling of tongue ? ? Naproxen Sodium ?Other reaction(s): edema ? ? Sulfa (Sulfonamide Antibiotics) ? Tramadol ?Other reaction(s): DIZZINESS There were no vitals taken for this visit. PROCEDURE NOTE: Eye Drops: 0.5% Iopidine drop prior to procedure, and immediately after procedure Anesthesia Type: Topical Proparacaine 0.5% Ophthalmic solution. Pre-Procedure verification: A timeout immediately prior to incision/procedure has been conducted. The patient's identity, procedure and when applicable: fire risk assessment, pre-procedure checklist, side/site, or special requirements was verbally confirmed prior to the procedure. Operative Note: After informed consent was obtained the procedural site was marked and a procedural time-out took place (as documented above). Drops of proparacaine 0.5% were given in the left eye, followed by 1 drop of Iopidine 0.5%. A total of 102 exposures were applied to the trabecular meshwork 360 degrees using a gonioscopy lens. The power was 0.4-0.6 millijoules per shot (for a total of 57.31 mJ) . After the procedure the patient was given 1 drop of Iopidine 0.5% and the intraocular pressure was checked 30 mins after procedure. Lens used: gonioscopy precision lens polisher: JOZEF Caruso Complications/Disposition: The patient tolerated the procedure well and left the office in good condition. Patient advised to call if tobin or flashes of light are seen, or has any concerns. Post operative floaters are typical and were discussed. Post-procedure instructions: Return in 1-2 weeks, call if any problems occur. Signature: Spike Puentes MD Spike Puentes MD O[facility]TH [facility] PROCEDU [facility] POINT OF CARE documented in this encounter Visit Diagnoses Diagnosis Ocular hypertension, left- Primary Erectile dysfunction after radical prostatectomy documented in this encounter Eye Exam Visual Acuity (Snellen - Linear) Right eye Left eye Dist cc 20/20 20/200 +/- Correction: Glasses Tested through phoropter with most recent refraction Tonometry #1 (Applanation, 13:32) Right eye Left eye Pressure 17 31 Tonometry #2 (Applanation, 14:36) Right eye Left eye Pressure 32 Neuro/Psych Oriented x3: Yes Mood/Affect: Normal Care Teams Highway Painter Helper Relationship Specialty Start Date End Date Vel Santos MD PCP - General 10/30/11 03/09/23 documented as of this encounter
--- OUTSIDE RECORDS SUMMARY | 2024-07-19 22:13 | XMS_ITS | Encounter Summary ---
Author Organization [facility] Address [address] [place] [address] Care Team Providers Care Agriculture Science Teacher Name Role Phone Vel Santos MD Primary Care Provider Unava ilable Reason for Visit * Reason Comments Glaucoma Suspicion bilateral Encounter Details Date Type Department Care Team (Late st Contact Info) Description 04/18/2020 13:00 EDT Office Visit [facility] [address] [place] [address] Spike Puetnes MD [address] [place] [phone] Social History Tobacco Use Types Packs/Day Years [...] Progress Notes * Spike Puentes MD - 04/18/2020 1300 EDT Chief Complaint Patient presents with ??? Glaucoma Suspicion bilateral HPI The patient is a 70 y.o. male here for follow up of glaucoma suspicion. he has no eye pain, double vision, or new flashes/floaters. He reports that he is wearing the eye glasses more. Right Eye: NL Left Eye: Blurred Vision Visual Aid: Glasses Current Rx Age 2 year Location: Left eye Pain: 0 - No pain Quality: Blurry Severity: Moderate Duration: Years Timing: Constant Lasts: Years Context: vision same over last yr, satisfied with glasses Rxd last yr, no new floaters, rarely has flashes, no pain Modifying factors: Associated Signs & Symptoms: Pre diabetic, BS runs about 100 in am, does not recall last Ha1c Attestation: ROS Constitutional: NL ENT/Mouth NL Cardiovascular: High Blood Pressure, High Cholesterol Respiratory: (activity induced asthma) Gastrointestinal: (GERD) Genitourinary: NL Musculoskeletal: NL Integumentary: (eczema) Neurologic: Seizures Psychiatric: Depression Endocrine: (pr diabetic) Hematologic: (on Plavix) Immunologic: Drug Allergy Uppers Edge Burnisher: Exposures: None Other: Attestation: Base Eye Exam Visual Acuity (Snellen - Linear) Right Left Dist cc 20/20 -1 20/200 Near cc J1+ J16 Tonometry (Applanation, 13:40) Right Left Pressure 20 24 Tonometry #2 (Applanation, 14:14) Right Left Pressure 19 23 Pupils Dark Light Shape React APD Right 4 3 Round Brisk None Left 4 3 Round Brisk None Visual Lovett (Counting fingers) Right Left Full Full Extraocular Movement Right Left Full Full Neuro/Psych Oriented x3: Yes Mood/Affect: Normal Dilation Both eyes: Tropicamide 1%, Phenylephrine 2.5% @ 13:42 Slit Lamp and Fundus Exam External Exam Right Left External Normal Normal Slit Lamp Exam Right Left Lids/Lashes Normal Normal Conjunctiva/Sclera White and quiet small cyst nasal Cornea Clear Clear Anterior Chamber Deep and quiet Deep and quiet Iris Round and reactive Round and reactive Lens 1+ Nuclear sclerosis 1+ Nuclear sclerosis Fundus Exam Right Left Vitreous Posterior vitreous detachment Asteroid hyalosis, Andrews ring Disc Normal Normal C/D Ratio 0.65 0.65 Macula trace Epiretinal membrane Normal Vessels Normal Normal Periphery Normal Normal Refraction Wearing Rx Sphere Cylinder [place] Add Right -0.50 +1.25 025 Left -2.00 +1.25 155 Age: 2yr Type: SVL Wearing Rx #2 Sphere Cylinder [place] Add Right +1.00 +1.25 025 +1.25 Left -0.50 +1.25 155 +1.25 Age: 2yr Type: computer Manifest Refraction Satisfied with glasses , no MR done DIAGNOSTIC TESTING/PROCEDURES: Nguyen VF 24-2 Standard - OU - Both Eyes Nguyen visual field 24-2 LEAH Standard report: Indication: Glaucoma suspect Right: Reliable (1/14 Fixation losses), Full Left: Reliable (35 False Negatives), central depression- no significant change from prior OCT, Optic Nerve - OU - Both Eyes Indication: glaucoma suspect OCT Optic Nerve Head and rNFL: Right: signal strength: 7/10 Avg thickness: 87 no thinning Left: signal strength: 5/10 Avg thickness: 65 thinning superior, borderline inferior, minimal artifact today due to asteroid hyalosis, stable compared to prior. IMPRESSION & PLAN: 1. Glaucoma suspect -IOP??today stable (IOP is always elevated in the left) -HVF 24-2 &??rNFL OCT today are stable. Continue to monitor with OCT rNFL and HVF 24-2 in 1 year 2. Cataract, both eyes Not visually significant -Monitor periodically 3. Posterior vitreous detachment, both eye(s) Stable, monitor periodically 4. Amblyopia, left eye Dense Monitor I have reviewed the patient's past medical, family, social and surgical history. I have also reviewed the patient's medications, allergies, and problem list. I performed my own HPI and have reviewed the [facility]'s ROS as well. I completed this exam personally. Spike Puentes MD Patient Education Topic: glaucoma suspect Method: Verbal Taught to: Patient Barriers: None Outcomes: independent Signature: Spike Puentes MD documented in this encounter Plan of Treatment Upcoming Encounters Date Type Department Care Team (Late st Contact Info) Description 10/04/2024 9:50 EST Appointment [facility] Pre-Surgical Testing [address] [place] [address] 10/14/2024 11:00 EST Hospital Encounter [facility] OR [address] [place] [address] [phone] Clemente Gerardo MD [address] [place] [address] [phone] 10/14/2024 11:00 EST - 10/14/2024 14:35 EST Surgery [facility] OR [address] [place] [address] [id number] Clemente Gerardo MD [address] [place] [address] [phone] Implantation of inflatable penile prosthesis [04557 (CPT??)] 10/17/2024 9:00 EST Telemedicine [facility] [address] [phone] Nurse Call, [facility] 10/31/2024 15:00 EST Post-op Visit [facility] [phone] Clemente Gerardo MD [address] [place] [address] [phone] 12/06/2024 10:15 EST Office Visit [facility] [address] [address] Spike Puentes MD [address] [place] [address] [phone] Scheduled Procedures Name Priority Associated Diagnoses Date/Ti me INSERTION, PENILE PROSTHESIS, INFLATABLE, 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 10/14/2024 11:00 EST documented as of this encounter Procedures Procedure Name Priority Date/Time Associated Diagnosis Comments NGUYEN VF 24-2 STANDARD - OU - BOTH EYES Routine 04/18/2020 14:30 EDT Glaucoma suspect, bilateral OCT, OPTIC NERVE - OU - BOTH EYES Routine 04/18/2020 14:29 EDT Glaucoma suspect, bilateral documented in this encounter Results * NGUYEN VF 24-2 STANDARD - OU - BOTH EYES (04/18/2020 14:30 EDT) Narrative [facility] - 04/18/2020 14:30 EDT Nguyen visual field 24-2 LEAH Standard report: Indication: Glaucoma suspect Right: Reliable (1/14 Fixation losses), Full Left: Reliable (35 False Negatives), central depression- no significant change from prior Spike Puentes MD OPHTH VISUAL FIELD Performing Organization Address [facility] Co de Phone Number [facility] * OCT, OPTIC NERVE - OU - BOTH EYES (04/18/2020 14:29 EDT) Narrative [facility] - 04/18/2020 14:29 EDT Indication: glaucoma suspect OCT Optic Nerve Head and rNFL: Right: signal strength: 7/10 Avg thickness: 87 no thinning Left: signal strength: 5/10 Avg thickness: 65 thinning superior, borderline inferior, minimal artifact today due to asteroid hyalosis, stable compared to prior. Spike Puentes MD OPHTH TOMOGRAPHY Performing Organization Address [facility] Co de Phone Number [facility] documented in this encounter Visit Diagnoses Diagnosis Glaucoma suspect, bilateral- Primary Senile nuclear sclerosis, right Senile nuclear sclerosis, left Posterior vitreous detachment of both eyes Vitreous degeneration Amblyopia of eye, left Erectile dysfunction after radical prostatectomy documented in this encounter Eye Exam Visual Acuity (Snellen - Linear) Right eye Left eye Dist cc 20/20 -1 20/200 Near cc J1+ J16 Tonometry #1 (Applanation, 13:40) Right eye Left eye Pressure 20 24 Tonometry #2 (Applanation, 14:14) Right eye Left eye Pressure 19 23 Pupils Dark Light Shape React APD Right eye 4 3 Round Brisk None Left eye 4 3 Round Brisk None Visual Lovett (Counting fingers) Right eye Left eye Full Full Extraocular Movement Right eye Left eye Full Full Neuro/Psych Oriented x3: Yes Mood/Affect: Normal Dilation Both eyes: Tropicamide 1%, P henylephrine 2.5% @ 13:42 External Exam Right eye Left eye External Normal Normal Slit Lamp Exam Right eye Left eye Lids/Lashes Normal Normal Conjunctiva/Sclera White and quiet small cyst na nataliia Cornea Clear Clear Anterior Chamber Deep and quiet Deep and quiet Iris Round and reactive Round and sharmila ctive Lens 1+ Nuclear sclerosis 1+ Nuclear sclerosis Vitreous Posterior vitreous detachment As teroid hyalosis, Andrews ring Fundus Exam Right eye Left eye Disc Normal Normal C/D Ratio 0.65 0.65 Macula trace Epiretinal membrane Normal Vessels Normal Normal Periphery Normal Normal Wearing Rx #1 Sphere Cylinder Melbourne Add Right eye -0.50 +1.25 025 Left eye -2.00 +1.25 155 Age: 2yr Type: SVL Wearing Rx #2 Sphere Cylinder [place] Add Right eye +1.00 +1.25 025 +1.25 Left eye -0.50 +1.25 155 +1.25 Age: 2yr Type: computer Manifest Refraction Satisfied with glasses , no MR done Care Teams Agriculture Science Teacher Relationship Specialty Start Date End Date Vel Santos MD PCP - General 10/30/11 03/09/23 documented as of this encounter
--- OUTSIDE RECORDS SUMMARY | 2024-07-19 22:13 | XMS_ITS | Encounter Summary ---
Author Organization [facility] Address [address] [place] [address] Care Team Providers Care Design Center Consultant Name Role Phone Vel Santos MD Primary Care Provider Unava ilable Reason for Visit * Reason Onset Date Comments Medications Refill 03/06/2020 Encounter Details Date Type Department Care Team (Late st Contact Info) Description 03/06/2020 Refill [facility] Medicine [facility] [address], [address] [place], [place] [phone] Vel Santos MD Medications Refill Social History [...] 1 Tab by mouth daily. 90 Tab 3 03/06/2020 11/13/2020 documented in this encounter Miscellaneous Notes * Telephone Encounter - Claudette Maier LPN - 03/06/2020 1511 EDT Noted, thanks * Telephone Encounter - Vel Santos MD - 03/06/2020 1505 EDT [place] [facility] thus not needed * Telephone Encounter - Claudette Maier LPN - 03/06/2020 1321 EDT TE to TC, would you recommend pt come in for blood draw? Plz advise on timeframe in which you recommend pt appointment with provider? * Telephone Encounter - Claudette Maier LPN - 03/06/2020 0857 EDT [facility] MEDICATION REFILL Medication: pantoprazole Medication, dose, directions verified: yes Pharmacy verified: yes Last office visit: 01/27/2020 Next office visit: none Pt's last lab was BMP in 03/2019, largely WNL. Due for updated labs, plz advise on timeframe for scheduling next appointment * Telephone Encounter - Janeth Gilliland - 03/06/2020 0816 EDT Pt calling script line documented in this encounter Plan of Treatment Upcoming Encounters Date Type Department Care Team (Late st Contact Info) Description 10/04/2024 9:50 EST Appointment [facility] Pre-Surgical Testing [address], [place] [phone] 10/14/2024 11:[address] [facility] OR [address] [place] [address] Clemente Gerardo MD [address] [phone] 10/14/2024 11:00 EST - 10/14/2024 14:[address] [facility] OR [address] [place] [address] [phone] Clemente Gerardo MD [address] [place] [address] [phone] Implantation of inflatable penile prosthesis [33992 (CPT??)] 10/17/2024 9:00 EST Telemedicine [facility] [phone] Nurse Call, [facility]rology 10/31/2024 15:00 EST Post-op Visit [address] [phone] Clemente Gerardo MD [address] [place] [phone] 12/06/2024 10:15 EST Office Visit [facility] Ophthalmology [address] [address] Spike Puentes MD [address] [place] [phone] Scheduled Procedures Name Priority Associated Diagnoses Date/Ti me INSERTION, PENILE PROSTHESIS, INFLATABLE, 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 10/14/2024 11:00 EST documented as of this encounter Visit Diagnoses Not on filedocumented in this encounter Discontinued Medications Medication Sig Discontinue Reason Start Date End Da te ranitidine (ZANTAC) 300 mg tablet Take 300 mg by mouth daily. 03/06/2020 pantoprazole (PROTONIX) 40 mg tablet Take 1 Tab by mouth daily. Reorder 03/06/2020 documented as of this encounter Care Teams Design Center Consultant Relationship Specialty Start Date End Date Vel Santos MD PCP - General 10/30/11 03/09/23 documented as of this encounter
--- OUTSIDE RECORDS SUMMARY | 2024-07-19 22:14 | XMS_ITS | Encounter Summary ---
Author Organization [facility] Address [address] [place] [address] Care Team Providers Care Sensitized Paper Tester Name Role Phone Vel Santos MD Primary Care Provider Unava ilable Reason for Visit * Reason Onset Date Comments Medications Refill 12/26/2019 Medications Refill 12/28/2019 Encounter Details Date Type Department Care Team (Late st Contact Info) Description 12/26/2019 Refill [facility] Medicine [facility] [address] , [facility] [address] [place], [place] [phone] Vel Santos MD Medications Refill; Medications Refill Social History Tobacco Use Types [...] End Da te clopidogreL (PLAVIX) 75 mg tabletIndications:Dyslipid emia Take 1 Tab by mouth daily for 360 days. 90 Tab 3 12/26/2019 12/07/2020 documented in this encounter Miscellaneous Notes * Telephone Encounter - Gigi Browne - 12/26/2019 1148 EST [facility] MEDICATION REFILL Medication: Plavix Medication, dose, directions verified: Yes Last Refill: 11/16/18 (12 months) Pharmacy verified: Yes Last office visit: 08/16/19 Next office visit: None Last Lipid: 06/24/17 Other notes: Historical Results Only on 03/08/2019 Component Date Value Ref Range Status ??? RUBEOLA IGG ANTIBODY - [facility] 03/08/2019 Positive Negative Final Presumed immune to Measles infection. ??? BUN - [facility] 03/08/2019 14 10 - 26 mg/dL Final ??? CALCIUM - [facility] 03/08/2019 9.4 8.5 - 10.5 mg/dL Final ??? Chloride 03/08/2019 100 96 - 110 mmol/L Final ??? CO2 Total 03/08/2019 26 21 - 32 mEq/L Final ??? Creatinine 03/08/2019 1.10 0.66 - 1.25 mg/dL Final ? ? eGFR 03/08/2019 >60 Final Comment: Chronic renal impairment is defined as GFR <60 Multiply result by 1.210 for patients. ??? Anion Gap 03/08/2019 9 0 - 18 Final ??? GLUCOSE - [facility] 03/08/2019 90 70 - 100 mg/dL Final ??? Potassium 03/08/2019 4.1 3.5 - 5.0 mEq/L Final ??? Sodium 03/08/2019 135* 136 - 145 mEq/L Final * Telephone Encounter - Courtney Downs - 12/26/2019 1057 EST Xin called Rx line requesting a refill for Plavix 75mg sent to [facility]. documented in this encounter Plan of Treatment Upcoming Encounters Date Type Department Care Team (Late st Contact Info) Description 10/04/2024 9:50 EST Appointment [facility] Pre-Surgical Testing [address] [place] [address] 10/14/2024 11:00 EST Hospital Encounter [facility] OR [address] [place] [address] [phone] Clemente Gerardo MD [address] [place] [address] [phone] 10/14/2024 11:00 EST - 10/14/2024 14:35 EST Surgery [facility] OR [address] [place] [address] [phone] Clemente Gerardo MD [address] [place] [address] [phone] Implantation of inflatable penile prosthesis [66549 (CPT??)] 10/17/2024 9:00 EST Telemedicine [facility] Urology [address] [phone] Nurse Call, [facility] Urology 10/31/2024 15:00 EST Post-op Visit [address] [phone] Clemente Gerardo MD [address] [place] [address] [phone] 12/06/2024 10:15 EST Office Visit [facility] Ophthalmology [address] [address] Spike Puentes MD [address] [place] [address] [phone] Scheduled Procedures Name Priority Associated Diagnoses Date/Ti me INSERTION, PENILE PROSTHESIS, INFLATABLE, 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 10/14/2024 11:00 EST documented as of this encounter Visit Diagnoses Diagnosis Dyslipidemia- Primary Other and unspecified hyperlipidemia Erectile dysfunction after radical prostatectomy documented in this encounter Discontinued Medications Medication Sig Discontinue Reason Start Date End Da te clopidogrel (PLAVIX) 75 mg tablet Take 75 mg by mouth daily. Reorder 12/26/2019 documented as of this encounter Care Teams Sensitized Paper Tester Relationship Specialty Start Date End Date Vel Santos MD PCP - General 10/30/11 03/09/23 documented as of this encounter
--- OUTSIDE RECORDS SUMMARY | 2024-07-19 22:14 | XMS_ITS | Encounter Summary ---
Author Organization [facility] Address [address] [place] [address] Care Team Providers Care Rate Analyst Name Role Phone Vel Santos MD Primary Care Provider Unava ilable Encounter Details Date Type Department Care Team (Late st Contact Info) Description 01/27/2020 Results Only [facility] Infectious Disease [address] [facility], [place] [address] Nata Cassidy MD [address] [facility], [address] [place] [phone] Social History Tobacco Use Types Packs/Day Years [...] 9:50 EST Appointment [facility] [place] Pre-Surgical Testing [address] [place] [address] 10/14/2024 11:00 EST Hospital Encounter [facility] OR [address] [place] [address] [phone] Clemente Gerardo MD [address] [place] [address] [phone] 10/14/2024 11:00 EST - 10/14/2024 14:35 EST Surgery [facility] OR [address] [place] [address] [phone] Clemente Gerardo MD [address] [place] [address] [phone] Implantation of inflatable penile prosthesis [74028 (CPT??)] 10/17/2024 9:00 EST Telemedicine [facility] Urology [address] [phone] Nurse Call, [facility] 10/31/2024 15:00 EST Post-op Visit [facility] [phone] Clemente Gerardo MD [address] [place] [address] [phone] 12/06/2024 10:15 EST Office Visit [facility] Ophthalmology [address] [address] Spike Puentes MD [address] [place] [phone] Scheduled Procedures Name Priority Associated Diagnoses Date/Ti me INSERTION, PENILE PROSTHESIS, INFLATABLE, 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 10/14/2024 11:00 EST documented as of this encounter Procedures Procedure Name Priority Date/Time Associated Diagnosis Comments SARS-COV2,RNA DETECTION Routine 01/27/2020 13:13 EDT documented in this encounter Results * SARS-COV2,RNA DETECTION (01/27/2020 13:13 EDT) SARS-CoV2 RNA Undetected Undetected 01/30/2020 8:01 EDT [facility] Comment: SARS-CoV-2 RNA is not detected. ADDITIONAL INFORMATION Testing was performed using the nupur SARS-CoV-2 assay ([employer] on the nupur Segetis0 System. Fact sheets for this Emergency Use Authorization (EUA) assay can be found at the following links: For Healthcare Providers: https://www.fda.gov/media/816511/download For Patients: https://www.fda.gov/media/288496/download Test Performed by: [place] [address] [employer] Homes Repairer: Michoacano Alvarez M.D. Ph.D.; CLIA# [id number] SPECIMEN SOURCE Nasopharynx () 01/30/20 20 8:01 EDT [facility] 01/27/2020 13:1 3 EDT 01/27/2020 15:09 EDT Nata Cassidy MD MICROBIOLOGY - GENER AL ORDERABLES [facility] documented in this encounter Visit Diagnoses Not on filedocumented in this encounter Care Teams Rate Analyst Relationship Specialty Start Date End Date Vel Santos MD PCP - General 10/30/11 03/09/23 documented as of this encounter
--- OUTSIDE RECORDS SUMMARY | 2024-07-19 22:14 | XMS_ITS | Encounter Summary ---
Author Organization [facility] Address [address] [place] [address] Care Team Providers Care Aging Room Hand Name Role Phone Vel Santos MD Primary Care Provider Dave doe Encounter Details Date Type Department Care Team (Latest Contact Info) Description 04/05/2018 13:46 EDT - 04/05/2018 23:59 EDT Hospital Encounter [facility] [address] [place] [address] Unknown, Provider, Discharge Disposition: Home or Self Care Social [...] daily. DIABETIC SUPPLIES, MISCELLAN. MISC Syringe 3cc 02/17/2017 nitroGLYCERIN (NITROSTAT) 0.[address] 1 Tablet under the tongue as needed. 07/07/2014 Nqefm-8-GJU-EPA-Fish Oil 1,000 (120-180) mg capsule Take 1,000 mg by mouth 2 times daily. Alcohol Swabs pads, medicated use as directed prior to Trimix administration 06/13/2011 06/20/2020 alpha lipoic acid 200 mg capsule Take by mouth. 10/20/2019 ALPRAZolam (XANAX) 1 mg tablet Take 1 mg by mouth as needed. 10/20/2019 atorvastatin (LIPITOR) 40 mg tablet Take 40 mg by mouth daily. 10/20/2019 buPROPion (WELLBUTRIN SR) 150 mg SR tablet Take 1 Tab by mouth every morning. 04/06/2014 10/30/2020 buPROPion (WELLBUTRIN) 75 mg tablet Take 75 mg by mouth 3 times daily 10/20/2019 Calcium Citrate 250 mg calcium tablet Take 500 mg by mouth. 1 12/21/2018 cyclobenzaprine (FLEXERIL) 10 mg tablet Take 10 mg by mouth 2 times daily. 10/20/2019 econazole nitrate 1 % cream Apply 1 application topically 2 times daily as needed. 11/05/2015 02/12/2023 folic acid (FOLVITE) 800 mcg tablet Take 800 mcg by mouth daily. 10/20/2019 Hydrocodone-Acetamino phen 10-660 mg tablet Take by mouth as needed. 10/20/2019 lisinopril (PRINIVIL, ZESTRIL) 5 mg tablet Take 5 mg by mouth daily. 10/20/2019 Magnesium 100 mg tablet Take 80 mg by mouth. 019 MEDICAL MARIJUANA 06/03/2024 metoprolol XL (TOPROL-XL) 100 mg tablet Take 100 mg by mouth daily. 10/20/2019 metoprolol XL (TOPROL-XL) 50 mg tablet Take 1 Tab by mouth daily. 06/05/2014 11/07/2019 Miscellaneous Medical Supply misc needles gauge: 18 length:, Si.5 in self IM once a week for testosterone 11/09/2013 06/20/2020 Miscellaneous Medical Supply misc needles gauge:22 length:1, Sig: self IM once a week for testosterone 02/17/2017 06/20/2020 nystatin (MYCOSTATIN) ointment Apply 1 application topically 3 times daily as needed. 11/05/2015 02/12/2023 omeprazole (PRILOSEC) 20 mg capsule Take 20 mg by mouth daily. 10/20/2019 Zinc 10 mg tablet Take 10 mg by mouth. documented as of this encounter Discharge Disposition Disposition Code Departure Means Destination Home or Self Retirement documented in this encounter Plan of Treatment Upcoming Encounters Date Type Department Care Team (Late st Contact Info) Description 10/04/2024 9:50 EST Appointment [facility] Pre-Surgical Testing [address] [place] [address] [phone] 10/14/2024 11:00 EST Hospital Encounter [facility] [place] [address] [place] [address] [phone] Clemente Gerardo MD [address] [place] [address] [phone] 10/14/2024 11:00 EST - 10/14/2024 14:35 EST Surgery [facility] OR [address] [place] [address] [phone] Clemente Gerardo MD [address] [place] [address] [phone] Implantation of inflatable penile prosthesis [61618 (CPT??)] 10/17/2024 9:00 EST Telemedicine [facility] [address] [phone] Nurse Call, [facility] Urology 10/31/2024 15:00 EST Post-op Visit [facility] [address] [phone] Clemente Gerardo MD [address] [place] [address] [phone] 12/06/2024 10:15 EST Office Visit [facility] - [place] [address] [place] [address] Spike Puentes MD [address] [place] [phone] Scheduled Procedures Name Priority Associated Diagnoses Date/Ti me INSERTION, PENILE PROSTHESIS, INFLATABLE, 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 10/14/2024 11:00 EST documented as of this encounter Visit Diagnoses Not on filedocumented in this encounter Care Teams Aging Room Hand Relationship Specialty Start Date End Date Vel Santos MD PCP - General 10/30/11 03/09/23 documented as of this encounter
--- OUTSIDE RECORDS SUMMARY | 2024-07-19 22:14 | XMS_ITS | Encounter Summary ---
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 blood glucose meter Glucose monitor,Sig: test once a day once a day 07/19/2018 DIABETIC SUPPLIES, IAINVital ConnectAN. [facility] Syringe 3cc 02/17/2017 LANCETS & BLOOD GLUCOSE STRIPS [facility] test strips and lancets for glucose monitor , Sig: test once a day test once a day 09/20/2018 nitroGLYCERIN (NITROSTAT) 0.[address] 1 Tablet under the tongue as needed. 07/07/2014 Arcea-9-VQW-EPA-Fish Oil 1,000 (120-180) mg capsule Take 1,000 [...] Appointment [facility] Pre-Surgical Testing [address] [place] [address] [phone] 10/14/2024 11:00 EST Hospital Encounter [facility] OR [address] [place] [address] [phone] Clemente Gerardo MD [address] [place] [address], [address] [phone] 10/14/2024 11:00 EST - 10/14/2024 14:35 EST Surgery [facility] OR [address] [place] [address] [phone] Clemente Gerardo MD [address] [place] [address] [address] [place] [phone] Implantation of inflatable penile prosthesis [51037 (CPT??)] 10/17/2024 9:00 EST Telemedicine [facility] Urology - [facility] [address] [place], [place] [phone] Nurse Call, [facility] Urology 10/31/2024 15:00 EST Post-op Visit [facility] Urology - [facility] [address] [place], [place] 186851 Clemente Gerardo MD [address] [facility], [address] [place] [phone] 12/06/2024 10:15 EST Office Visit [facility] Ophthalmology [facility] [address] [place] [address] Spike Puentes MD [address] [place] [phone] Scheduled Procedures Name Priority Associated Diagnoses Date/Ti me INSERTION, PENILE PROSTHESIS, INFLATABLE, 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 10/14/2024 11:00 EST documented as of this encounter Visit Diagnoses Not on filedocumented in this encounter Care Teams Assembler Erector Relationship Specialty Start Date End Date Vel Santos MD PCP - General 10/30/11 03/09/23 documented as of this encounter
--- OUTSIDE RECORDS SUMMARY | 2024-07-19 22:14 | XMS_ITS | Encounter Summary ---
Author Organization [facility] Address [address] [place] [address] Care Team Providers Care Engineering Drafter Name Role Phone Vel Santos MD Primary Care Provider Unava ilable Encounter Details Date Type Department Care Team (Late st Contact Info) Description 06/24/2018 Historical Results Only [facility] Lab - [facility] [address] [address] Tyler Dinero, TRIMMER AND REINFORCER [address] [facility] [address] [place] [address] Social History Tobacco Use Types Packs/Day Years [...] 10/04/2024 9:50 EST Appointment [facility] [place] [facility] Pre-Surgical Testing [address] [place] [address] 10/14/2024 11:00 EST Hospital Encounter [facility] OR [address] [place] [address] [phone] Clemente Gerardo MD [address] [place] [address] [phone] 10/14/2024 11:00 EST - 10/14/2024 14:35 EST Surgery [facility] OR [address] [place] [address] [phone] Clemente Gerardo MD [address] [place] [address] [phone] Implantation of inflatable penile prosthesis [40309 (CPT??)] 10/17/2024 9:00 EST Telemedicine [facility] [address] [phone] Nurse Call, [facility]rology 10/31/2024 15:00 EST Post-op Visit [address] [phone] Clemente Gerardo MD [address] [place] [address] [phone] 12/06/2024 10:15 EST Office Visit [facility] Ophthalmology [address] [address] Spike Puentes MD [address] [place] [address] [phone] Scheduled Procedures Name Priority Associated Diagnoses Date/Ti me INSERTION, PENILE PROSTHESIS, INFLATABLE, 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 10/14/2024 11:00 EST documented as of this encounter Procedures Procedure Name Priority Date/Time Associated Diagnosis Comments BACTERIAL CULTURE, URINE Routine 06/24/2018 9:42 EDT documented in this encounter Results * BACTERIAL CULTURE, URINE (06/24/2018 9:42 EDT) ESCHERIACHIA COLI - [facility] ESCHERICHIA COLI 06/26/2018 7:[address] [facility] CitrateConcentration 10,000-100,00 0 CFU/ML 06/26/2018 7:[address] [facility] 06/24/2018 9:42 EDT 06/24/2018 11:05 EDT Comment:VOID Narrative Organism Antibiotic Method Susceptibility Escherichia coli Ampicillin Sulbactam GRAM NEGAT ROSALIE SUSCEPTIBILITY - [facility] <=2: Susceptible Escherichia coli Ampicillin GRAM NEGATIVE SUSCEPTIBILITY - [facility] <=2: Susceptible Escherichia coli Amoxicillin Clavulan ic acid GRAM NEGATIVE SUSCEPTIBILITY - [facility] <=2: Susceptible Escherichia coli Ceftriaxone GRAM NEGATIVE SUSCEPTIBILITY - [facility] <=1: Susceptible Escherichia coli Cefazolin GRAM NEGATIVE SUSCEPTIBILITY - [facility] <=4: Susceptible Escherichia coli Ciprofloxacin GRAM NEGATIVE SUSCEPTIBILITY - [facility] <=0.25: Susceptible Escherichia coli Cefepime GRAM NEGATIVE SUSCEPTIBILITY - [facility] <=1: Susceptible Escherichia coli Ertapenem GRAM NEGATIVE SUSCEPTIBILITY - [facility] <=0.5: Susceptible Escherichia coli Nitrofurantoin GRAM NEGATIVE SUSCEPTIBILITY - [facility] <=16: Susceptible Escherichia coli Gentamicin GRAM NEGATIVE SUSCEPTIBILITY - [facility] <=1: Susceptible Escherichia coli Levofloxacin GRAM NEGATIVE SUSCEPTIBILITY - [facility] 1: Susceptible Escherichia coli Piperacillin Tazobactam GRAM NEGATIVE SUSCEPTIBILITY - [facility] <=4: Susceptible Escherichia coli Trimethoprim-Sulfame th oxazole GRAM NEGATIVE SUSCEPTIBILITY - [facility] <=20: Susceptible Escherichia coli Tobramycin GRAM NEGATIVE SUSCEPTIBILITY - [facility] <=1: Susceptible Comment:See Reason(s) for St udy Tyler Dinero TRIMMER AND REINFORCER MICROBIOLOGY - [facility] ORDERABLES [facility] documented in this encounter Visit Diagnoses Not on filedocumented in this encounter Care Teams Engineering Drafter Relationship Specialty Start Date End Date Vel Santos MD PCP - General 10/30/11 03/09/23 documented as of this encounter
--- OUTSIDE RECORDS SUMMARY | 2024-07-19 22:14 | XMS_ITS | Encounter Summary ---
Author Organization [facility] Address [address] [place] [address] Care Team Providers Care News Wire Photo Operator Name Role Phone Vel Santos MD Primary Care Provider Unava ilable Reason for Visit * Reason Comments Cough Encounter Details Date Type Department Care Team (Late st Contact Info) Description 01/27/2020 13:00 EDT Nurse Only [facility] Testing Department [address] [place], [place] [phone] Nurse, [facility] Screening for viral disease (Primary Dx) Social History Tobacco Use Types [...] as of this encounter Progress Notes * Kim Sheldon - 01/27/2020 1300 EDT Patient presented for Covid-19 testing. Swab obtained per orders. documented in this encounter Plan of Treatment Upcoming Encounters Date Type Department Care Team (Late st Contact Info) Description 10/04/2024 9:50 EST Appointment [facility] Pre-Surgical Testing [address] [place] [address] [phone] 10/14/2024 11:00 EST Hospital Encounter [facility] OR [address] [place] [address] [phone] Clemente Gerardo MD [address] [place] [address] [phone] 10/14/2024 11:00 EST - 10/14/2024 14:35 EST Surgery [facility] OR [address] [place] [address] [phone] Clemente Gerardo MD [address] [place] [address] [phone] Implantation of inflatable penile prosthesis [33825 (CPT??)] 10/17/2024 9:00 EST Telemedicine [facility] Urology [address] [phone] Nurse Call, [facility] Urology 10/31/2024 15:00 EST Post-op Visit [facility] Urology [address] [phone] Clemente Gerardo MD [address] [place] [address] [phone] 12/06/2024 10:15 EST Office Visit [facility] Ophthalmology [address] [address] Spike Puentes MD [address] [place] [phone] Scheduled Procedures Name Priority Associated Diagnoses Date/Ti me INSERTION, PENILE PROSTHESIS, INFLATABLE, 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 10/14/2024 11:00 EST documented as of this encounter Visit Diagnoses Diagnosis Screening for viral disease- Primary Special screening examination for unspecified viral disease Erectile dysfunction after radical prostatectomy documented in this encounter Care Teams News Wire Photo Operator Relationship Specialty Start Date End Date Vel Santos MD PCP - General 10/30/11 03/09/23 documented as of this encounter
--- OUTSIDE RECORDS SUMMARY | 2024-07-19 22:14 | XMS_ITS | Encounter Summary ---
Author Organization [facility] Address [address] [place] [address] Care Team Providers Care Instrument Technician Helper Name Role Phone Vel Santos MD Primary Care Provider Unava ilable Reason for Visit * Reason Onset Date Comments Results 01/30/2020 Encounter Details Date Type Department Care Team (Late st Contact Info) Description 01/30/2020 Telephone [facility] - [address] [address] Vel Santos MD Results Social History Tobacco Use Types Packs/Day Years [...] encounter Miscellaneous Notes * Telephone Encounter - Concepcion Navas - 01/30/2020 1450 EDT The coronavirus, testing came back negative. There are many other influenza or common cold like illness in the community. If you have already received a diagnosis determined by your healthcare provider, please follow their advice. If your symptoms worsen please call your PCP office for evaluation. Let them know your testing was negative. We advise: ? Stay home, get rest, and hydrate. ? Take OTC pain relievers, fever reducers, decongestants or cough medicine to manage symptoms. (check with PCP first if you have chronic health conditions). ? Avoid close contact with people at home ( kissing, hugging, shaking hands) ? Cover your coughs and sneezes with a tissue. ? Clean your hands often either with soap and water for 20 seconds or an alcohol-based hand vice president talent management that contains at least 60% alcohol. ? Clean high-touch surfaces daily (counter, tables, doorknobs, toilet, computer, etc) Please contact your employer about returning to work. Generally we recommend you stay home until your symptoms have improved AND you are fever-free for 72 hours OR at least 7 days have passed since your symptoms first appeared. documented in this encounter Plan of Treatment Upcoming Encounters Date Type Department Care Team (Late st Contact Info) Description 10/04/2024 9:50 EST Appointment [facility] Pre-Surgical Testing [address] [place] [address] [phone] 10/14/2024 11:00 EST Hospital Encounter [facility] OR [address] [place] [address] [phone] Clemente Gerardo MD [address] [place] [address] [phone] 10/14/2024 11:00 EST - 10/14/2024 14:35 EST Surgery [facility] OR [address] [place] [address] [phone] Clemente Gerardo MD [address] [place] [address] [phone] Implantation of inflatable penile prosthesis [32700 (CPT??)] 10/17/2024 9:00 EST Telemedicine [facility] Urology [address] 979201 Nurse Call, [facility] Urology 10/31/2024 15:00 EST Post-op Visit [facility] [address] [phone] Clemente Gerardo MD [address] [facility], Level [address] [place] [phone] 12/06/2024 10:15 EST Office Visit [facility] [address] [place] [address] Spike Puentes MD [address] [place] [phone] Scheduled Procedures Name Priority Associated Diagnoses Date/Ti me INSERTION, PENILE PROSTHESIS, INFLATABLE, 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 10/14/2024 11:00 EST documented as of this encounter Visit Diagnoses Not on filedocumented in this encounter Care Teams Instrument Technician Helper Relationship Specialty Start Date End Date Vel Santos MD PCP - General 10/30/11 03/09/23 documented as of this encounter
--- OUTSIDE RECORDS SUMMARY | 2024-07-19 22:14 | XMS_ITS | Encounter Summary ---
Author Organization [facility] Address [address] [place] [address] Care Team Providers Care Pricing Clerk Name Role Phone Vel Santos MD Primary Care Provider Unava ilable Reason for Visit * Reason Onset Date Comments Eye Problem 02/22/2019 Encounter Details Date Type Department Care Team (Late st Contact Info) Description 02/22/2019 Telephone [facility] Ophthalmology [facility] [address] [place] [address] Spike Puentes MD [address] [place] [phone] Eye Problem Social History Tobacco Use Types [...] encounter Miscellaneous Notes * Telephone Encounter - Jaimee Swain OTA - 02/22/2019 1627 EDT Earlier today Roland noticed a prism of light in his right eye, this lasted about 1 hour and is now gone. He denied any new floaters or flashing lights, he also denied any headache. He is having a little trouble focusing but no real blurred vision. He got a reminder call to schedule his routine exam, I had Iza set him up for an earlier appointment with Dr. Puentes and advised him to call back if he develops new floaters, flashes or persistent blurred vision. I explained an ocular migraine which heagreed seemed to match his symptoms. * Telephone Encounter - Iza Garces - 02/22/2019 7591 EDT Xin called, states that Roland is seeing prisms of light in his vision. Please call to triage. [phone] documented in this encounter Plan of Treatment Upcoming Encounters Date Type Department Care Team (Late st Contact Info) Description 10/04/2024 9:50 EST Appointment [facility] Pre-Surgical Testing [address] [place] [address] [phone] 10/14/2024 11:00 EST Hospital Encounter [facility] OR [address] [place] [address] [phone] Clemente Gerardo MD [address] [place] [address] [phone] 10/14/2024 11:00 EST - 10/14/2024 14:35 EST Surgery [facility] OR [address] [place] [address] [phone] Clemente Gerardo MD [address] [place] [address] [phone] Implantation of inflatable penile prosthesis [93390 (CPT??)] 10/17/2024 9:00 EST Telemedicine [facility] Urology [address] [phone] Nurse Call, [facility] Urology 10/31/2024 15:00 EST Post-op Visit [facility] Urolog[address] [phone] Clemente Gerardo MD [address] [facility], [address] [place] [phone] 12/06/2024 10:15 EST Office Visit [facility] [address] [place], [place] 112331 Spike Puentes MD [address] [place] [phone] Scheduled Procedures Name Priority Associated Diagnoses Date/Ti me INSERTION, PENILE PROSTHESIS, INFLATABLE, 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 10/14/2024 11:00 EST documented as of this encounter Visit Diagnoses Not on filedocumented in this encounter Care Teams Pricing Clerk Relationship Specialty Start Date End Date Vel Santos MD PCP - General 10/30/11 03/09/23 documented as of this encounter
--- OUTSIDE RECORDS SUMMARY | 2024-07-19 22:14 | XMS_ITS | Encounter Summary ---
Author Organization [facility] Address [address] [place] [address] Care Team Providers Care Lab Animal Technologist Name Role Phone Vel Santos MD Primary Care Provider Unava ilable Encounter Details Date Type Department Care Team (Late st Contact Info) Description 01/23/2020 Orders Only [facility] Adult Primary Care - [address] [phone] Cht Panel Coordinator, [facility] Family Social History Tobacco Use Types Packs/Day Years [...] Appointment [facility] Pre-Surgical Testing [address] [place] [address] 10/14/2024 11:[address] [facility] [place] [address] [place] [address] [phone] Clemente Gerardo MD [address] [place] [address] [phone] 10/14/2024 11:00 EST - 10/14/2024 14:[address] [facility] [place] [address] [place] [address] [phone] Clemente Gerardo MD [address] [place] [address] [phone] Implantation of inflatable penile prosthesis [75830 (CPT??)] 10/17/2024 9:00 EST Telemedicine [facility] Urolog[address] [phone] Nurse Call, [facility] Urology 10/31/2024 15:00 EST Post-op Visit [address] [phone] Clemente Gerardo MD [address] [place] [address] [phone] 12/06/2024 10:15 EST Office Visit [facility] Ophthalmology [address] [address] Spike Puentes MD [address] [place] [phone] Scheduled Procedures Name Priority Associated Diagnoses Date/Ti me INSERTION, PENILE PROSTHESIS, INFLATABLE, 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 10/14/2024 11:00 EST documented as of this encounter Procedures Procedure Name Priority Date/Time Associated Diagnosis Comments COLONOSCOPY PROCEDURE Routine 07/03/2016 documented in this encounter Results * COLONOSCOPY PROCEDURE (07/03/2016) Colonoscopy Comment:adenoma, 5y f/u Colonoscopy, External Anatomical Region Laterality Modality Endoscopy Historical Provider GI PROCEDURE JOSE JARAMILLO documented in this encounter Visit Diagnoses Not on filedocumented in this encounter Care Teams Lab Animal Technologist Relationship Specialty Start Date End Date Vel Santos MD PCP - General 10/30/11 03/09/23 documented as of this encounter
--- OUTSIDE RECORDS SUMMARY | 2024-07-19 22:14 | XMS_ITS | Encounter Summary ---
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 documented in this encounter Progress Notes * Laquita Delcid RN - 11/03/2019 1115 EST 69 year old male here for follow up left foot pain. Last seen 07/18/19. Podiatry: ? Vascular??DP pulses are weak bilat. PT pulses normal bilat. Digital hair present. Tepid skin temp. Pitting edema 1+ bilat legs, none in the foot. .? Dermatological??Slight thickening of most toenails. Corns are present on medial side of left fifth distal interphalangeal joint and lateral side of left fourth proximal interphalangeal joint.No dermal breakdown. No tinea pedis. Webspaces are otherwise normal.? Orthopedic??Pes planus foot type, semiflexible bilateral right and a little bit more pronounced and a little bit more stiff.. Mild pain on palpation anterior right ankle and sinus tarsi and lateral subtalar joint right foot. Nonweightbearing passive and active motion pain-free. No painon strength testing/resisted motion. Adductovarus fifth toe left and fourth and fifth toes right. Rather severe contractures on the right foot, going underneath the adjacent toes. (Fifth on her fourth and fourth under third). Right fourth and fifth are asymptomatic. On the left, there is mild abduction and moderate varus rotation of the fifth toe. Little bit prominent on palpation at the medial di stal IP joint. (Even after debridement).Relative and soft tissue equinus bilateral, right greater than left. Subtalar motion is decreased right and skewed in a pronatory direction, versus normal on the left foot. Midtarsal range of motion is decreased bilateral, right greater than the left. Mild 1st metatarsal cuneiform hypermobility bilateral. Mildly decreased motion 1st MTP joint bilateral. .?? * Owen Cazares DPM - 11/03/2019 1115 EST HPI Patient is a 69 y/o M here for a follow up Osteoarthritis right foot, last seen 07/18/2019. Patient reports the new insoles he got are useful, but he's been having a lot of neuropathy pain. He's been treating it with homemade CBD oil. When brought up, the patient said that Cortisone injections were painful, and brought little comfort. Patient says his left fifth toe corn had some discomfort, to which the Patient trimmed the corn himself with moderate relief. There is pain at the right anterior lateral ankle / lateral rearfoot. Pain there is generally proportional to WB activty. Sometimes the little toe is the thing hurting the most. Interested in knowing what would take to solve that problem permanently. Patient Active Problem List Diagnosis ??? Tremor [...] ??? Depression ??? Coronary artery disease involving [place] ir[place] coronary artery of [place] heart without angina pectoris ??? Claustrophobia ??? Chronic back pain ??? Chronic anticoagulation ??? Asthma ??? Cerebrovascular accident (CVA) due to embolism (HCC-CMS) ??? Arteriosclerotic cardiovascular disease ??? Asteroid hyalosis of left eye Past Medical History: Diagnosis Date ??? Amblyopia per pt-left eye ??? Hyperlipidemia ??? Hypertension ??? Rheumatoid disease (HCC-CMS) Past Surgical History: Procedure Laterality Date ??? CARDIAC CATHERIZATION 12/2004 normal - Dr. Evans [facility] [place] ??? COLONOSCOPY 12/2004 WNL - Dr. Turcios f/u 10 yrs ??? RADICAL PROSTATECTOMY 12/2004 Laparoscopic radical prostatectomy, umbilical hernia repair - Dr. Encinas [facility] [place] ??? SINUS SURGERY nasal / sinus surgery Social History Tobacco Use ??? Smoking status: Former Smoker ??? Smokeless tobacco: Never Used Substance Use Topics ??? Alcohol use: Not on file Family History Problem Relation Age of Onset ??? Macular Degeneration Neg Hx ??? Retinal Detachment Neg Hx ??? Glaucoma Neg Hx Current Outpatient Medications Medication Sig Dispense Refill ??? Alcohol Swabs pads, medicated use as directed prior to Trimix administration ??? aspirin 325 mg tablet Take 325 mg by mouth daily. ??? atorvastatin (LIPITOR) 20 mg tablet Take 3 Tabs by mouth at bedtime. ??? blood glucose meter Glucose monitor,Sig: test once a day once a day ??? budesonide-formoterol HFA (SYMBICORT) 80-4.5 mcg/actuation HFA aerosol inhaler inhaler Inhale 2Puffs as directed 2 times daily. ??? buPROPion (WELLBUTRIN SR) 150 mg SR tablet Take 1 Tab by mouth every morning. ??? Cholecalciferol, Vitamin D3, (VITAMIN D3) 2,000 unit capsule Take by mouth daily. ??? clopidogrel (PLAVIX) 75 mg tablet Take 75 mg by mouth daily. ??? DIABETIC SUPPLIES, MISCELLAN. MISC Syringe 3cc ??? econazole nitrate 1 % cream Apply 1 application topically 2 times daily as needed. ??? lamoTRIgine (LAMICTAL) 25 mg tablet Take 25 mg by mouth 2 times daily. ? ? LANCETS & BLOOD GLUCOSE STRIPS [facility] test strips and lancets for glucose monitor , Sig: testonce a day test once a day ??? MEDICAL MARIJUANA ??? metoprolol XL (TOPROL-XL) 50 mg tablet Take 1 Tab by mouth daily. ??? Miscellaneous Medical Supply [facility] needles gauge: 18 length:, Si.5 in self IM once a week for testosterone ??? Miscellaneous Medical Supply [facility] needles gauge:22 length:1, Sig: self IM once a week for testosterone ??? mupirocin (BACTROBAN) 2 % ointment Apply 1 application topically 3 times daily. ??? nitroGLYCERIN (NITROSTAT) 0.[address] 1 Tab under the tongue as needed. ??? nystatin (MYCOSTATIN) ointment Apply 1 application topically 3 times daily as needed. ??? Pbywk-0-ENC-EPA-Fish Oil 1,000 (120-180) mg capsule Take 1,000 mg by mouth. ??? pantoprazole (PROTONIX) 40 mg tablet Take 1 Tab by mouth daily. ??? ranitidine (ZANTAC) 300 mg tablet Take 300 mg by mouth daily. ??? testosterone cypionate (DEPO-TESTOSTERONE) 200 mg/mL injection Inject 200 mg into the muscle every 7 days. ??? ubidecarenone/vitamin E mixed (COQ10 SG 100 ORAL) Take by mouth daily. No current facility-administered medications for this visit. Allergies Allergen Reactions ??? Other - See Comments ? Plaquenil : visual changes Swordfish - anaphylaxis ??? Cyclobenzaprine Other reaction(s): Unknown ??? Ibuprofen Other reaction(s): edema ??? Lisinopril Swelling of tongue ??? Naproxen Sodium Other reaction(s): edema ??? Sulfa (Sulfonamide Antibiotics) ??? Tramadol Other reaction(s): DIZZINESS Review of Systems: Constitutional: negative for, fever, fatigue, malaise. Cardiovascular: negative for, chest pain, dyspnea on exertion, palpitations. Respiratory: negative for cough, wheezing. Musculoskeletal: Positive for foot pain. Dermatologic: Negative for, rash, discoloration, lesions. Neurological: Negative for, Numbness, Tingling, Weakness. Hematologic/lymphatic: Positive for, easily bruising. BP 128/80 (BP Cuff Location: Right arm) Pulse 63 Temp 36.8 ??C (98.3 ??F) (Oral) SpO2 98% Physical Exam: General Exam: Alert and oriented. No acute distress. Appropriate affect. Normal cognition. Moderately overweight. Ortho Exam: Right foot tenderness to palpation in the sinus tarsi area. Excaerbated with eversion. Pes planus foot type, semiflexible bilateral. Right is more severe in degree of deformity. No pain on strength testing/resisted motion. Adductovarus left 5th toe. Vascular Exam: DP pulses are weak bilat. PT pulses normal bilat. Digital hair present. Tepid skin temp. Cap refill 1-2 seconds. Pitting edema 1+ bilat legs, no edema in the feet. Derm Exam: [place] at medial proximal nail fold left 5th toe. No dermal breakdown or infections. Assessment 1. Sinus tarsi syndrome of right foot We will try increasing support to lessen the impingement anterior lateral ankle and lateral rear foot. 2. Adductovarus rotation of toe, acquired, left Discussed surgical correction of the adductovarus derotational arthroplasty. Discussed the technical aspects, normal postoperative course, expected outcome, and potential complications. For now conservative measures of debridement of the hyperkeratotic lesion and use of a gel toe sleeve or toe Would be appropriate. Shoe choices also discussed to lessen pressure on the toes. 3. Pes planovalgus, acquired, right The pes planovalgus on the right side is fairly severe and is the ultimate cause of the impingementsyndrome at the fibular calcaneal junction and the sinus tarsi. Plan: Added additional medial posting/support to the patient's Right Orthotic. The Orthotics are specifically a Spenco Total Support. On the right, sinus tarsi inpingement/arthritic pain would likely be helped by decreasing eversion.Will try increased medial support with full length varus posting and medial longitudinal arch support, applied to Spenco total support orthotic. Debrided the [place] on the medial left fifth toe. Educated on derotational arthroplasty for correction of the toe deformity. This document has been reviewed by Bret Wesley, who scribes for Owen Cazares DPM. Provider Attestation: By signing this visit note, I, as the provider for this encounter, personallyperformed the services described in this documentation. All medical record entries made by the scribe were at my direction and in my presence. I have reviewed the chart and any discharge instructionsand agree that the record reflects my personal performance and is accurate and complete. documented in this encounter Plan of Treatment Upcoming Encounters Date Type Department Care Team (Late st Contact Info) Description 10/04/2024 9:50 EST Appointment [facility] Pre-Surgical Testing [address] [place] [address] [phone] 10/14/2024 11:00 EST Hospital Encounter [facility] OR [address] [place] [address] [phone] Clemente Gerardo MD [address] [place] [address] [phone] 10/14/2024 11:00 EST - 10/14/2024 14:35 EST Surgery [facility] OR [address] [place] [address] [id number] Clemente Gerardo MD [address] [place] [address] [phone] Implantation of inflatable penile prosthesis [37957 (CPT??)] 10/17/2024 9:00 EST Telemedicine [address] [phone] Nurse Call, [facility] Urology 10/31/2024 15:00 EST Post-op Visit [address] [phone] Clemente Gerardo MD [address] [place] [address] [phone] 12/06/2024 10:15 EST Office Visit [facility] Ophthalmology [facility] [address] [place] [address] Spike Puentes MD [address] [place] [phone] Scheduled Procedures Name Priority Associated Diagnoses Date/Ti me INSERTION, PENILE PROSTHESIS, INFLATABLE, 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 10/14/2024 11:00 EST documented as of this encounter Visit Diagnoses Diagnosis Sinus tarsi syndrome of right foot- Primary Adductovarus rotation of toe, acquired, left Pes planovalgus, acquired, right Erectile dysfunction after radical prostatectomy documented in this encounter Care Teams Vice President Mission Integration Relationship Specialty Start Date End Date Vel Santos MD PCP - General 10/30/11 03/09/23 documented as of this encounter
--- OUTSIDE RECORDS SUMMARY | 2024-07-19 22:14 | XMS_ITS | Encounter Summary ---
Author Organization [facility] Address [address] [place] [address] Care Team Providers Care Gas Booster Engineer Name Role Phone Vel Santos MD Primary Care Provider Dave doe Encounter Details Date Type Department Care Team (Latest Contact Info) Description 08/16/2019 12:59 EDT - 08/16/2019 23:59 EDT Hospital Encounter [facility] [address] [place] [address] Unknown, Provider, Discharge Disposition: Home or Self [...] once a day once a day 07/19/2018 cholecalciferol, Vitamin D3, 125 mcg (5000 unit) capsule Take by mouth daily. DIABETIC SUPPLIES, [place]. [facility] Syringe 3cc 02/17/2017 LANCETS & BLOOD GLUCOSE STRIPS [facility] test strips and lancets for glucose monitor , Sig: test once a day test once a day 09/20/2018 nitroGLYCERIN (NITROSTAT) 0.[address] 1 Tablet under the tongue as needed. 07/07/2014 Afvvn-1-OCY-EPA-Fish Oil 1,000 (120-180) mg capsule Take 1,000 [...] Take 500 mg by mouth. 1 12/21/2018 clopidogrel (PLAVIX) 75 mg tablet Take 75 mg by mouth daily. 12/26/2019 cyclobenzaprine (FLEXERIL) 10 mg tablet Take 10 [...] once a week for testosterone 02/17/2017 06/20/2020 mupirocin (BACTROBAN) 2 % ointment Apply 1 application topically 3 times daily. 06/06/2019 020 nystatin (MYCOSTATIN) ointment Apply 1 application topically 3 times daily as needed. 11/05/2015 02/12/2023 omeprazole (PRILOSEC) 20 mg capsule Take 20 mg by mouth daily. 10/20/2019 ranitidine (ZANTAC) 300 mg tablet Take 300 mg by mouth daily. 03/06/2020 testosterone cypionate (DEPO-TESTOSTERONE) 200 mg/mL injection Inject 200 mg into the muscle every 7 days. 02/13/2020 ubidecarenone/vitamin E mixed (COQ10 SG 100 ORAL) Take by mouth daily. 024 Zinc 10 mg tablet Take 10 mg by mouth. documented as of this encounter Discharge Disposition Disposition Code Departure Means Destination Home or Self [facility] documented in this encounter Plan of Treatment Upcoming Encounters Date Type Department Care Team (Late st Contact Info) Description 10/04/2024 9:50 EST Appointment [facility] Pre-Surgical Testing [address] [place] [phone] 10/14/2024 11:00 EST Hospital Encounter [facility] OR [address] [place] [address] [phone] Clemente Gerardo MD [address] [place] [address] [phone] 10/14/2024 11:00 EST - 10/14/2024 14:35 EST Surgery [facility] OR [address] [place] [address] [phone] Clemente Gerardo MD [address] [place] [address] [phone] Implantation of inflatable penile prosthesis [10967 (CPT??)] 10/17/2024 9:00 EST Telemedicine [address] [phone] Nurse Call, [facility] Urology 10/31/2024 15:00 EST Post-op Visit [address] [phone] Clemente Gerardo MD [address] [facility], Level [address] [place] [phone] 12/06/2024 10:15 EST Office Visit [facility] [address] [place], [place] [phone] Spike Puentes MD [address] [place] [phone] Scheduled Procedures Name Priority Associated Diagnoses Date/Ti me INSERTION, PENILE PROSTHESIS, INFLATABLE, 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 10/14/2024 11:00 EST documented as of this encounter Visit Diagnoses Not on filedocumented in this encounter Care Teams Gas Booster Engineer Relationship Specialty Start Date End Date Vel Santos MD PCP - General 10/30/11 03/09/23 documented as of this encounter
--- OUTSIDE RECORDS SUMMARY | 2024-07-19 22:14 | XMS_ITS | Encounter Summary ---
Author Organization [facility] Address [address] [place] [address] Care Team Providers Care Manager Transfer Name Role Phone Vel Santos MD Primary Care Provider Unava ilable Reason for Visit * Reason Onset Date Comments Referral Request 10/06/2019 Other 10/06/2019 Requesting notes to support urgent referral Encounter Details Date Type Department Care Team (Late st Contact Info) Description 10/06/[address], [facility] [address] [place], [place] [phone] Vel Santos MD Referral Request; Other (Requesting notes to support urgent referral) Social History Tobacco Use Types Packs/Day [...] encounter Miscellaneous Notes * Telephone Encounter - Cheri Rodrigues RN - 10/17/2019 1441 EST Talked to [facility] gastro. They got our referral, they do not need anything from our office as they have documentation from their fellow regarding this. Tc made verbally aware will close this TE * Telephone Encounter - Cheri Rodrigues RN - 10/17/2019 1344 EST To nurse * Telephone Encounter - Vel Santos MD - 10/17/2019 1236 EST [place] [facility] [place] from the 07 of October. He needs an upper endoscopy. His reasons have to do with the sensation of food catching and persistent coughing. Can you call these numbers and see what needs to happen next? * Telephone Encounter - Cheri Rodrigues RN - 10/14/2019 1453 EST To TC * Telephone Encounter - Felicia Celis - 10/14/2019 1312 EST Lloyd called from [facility] Gastro Dept today to request further supportive notes to support urgent referral for patient. Lloyd stated they can't keep taking angry phone calls from this patient. He asked ifreferral is for EUS or EGD? If EUS it is ready to schedule. If EGD they need more to go off of notewise. [facility] urgent fax # [phone], phone # [phone]. Please advise. Called patient to notify him of the additional info request from [facility]. Patient stated he has pain in chest with food & drink as well as persistent coughing. * Telephone Encounter - Jada Pitts - 10/11/2019 1031 EST Refaxed and showing as completed. * Telephone Encounter - Vel Santos MD - 10/06/2019 0853 EST Can you check to see if his referral to dr travis Dunaway [place] [facility] has gone through? sent an email saying it did not but maybe it has happened. Let me know if not and I will resend. documented in this encounter Plan of Treatment Upcoming Encounters Date Type Department Care Team (Late st Contact Info) Description 10/04/2024 9:50 EST Appointment [facility] Pre-Surgical Testing [address] [place] [address] [phone] 10/14/2024 11:00 EST Hospital Encounter [facility] OR [address] [place] [address] [phone] Clemente Gerardo MD [address] [place] [address] [phone] 10/14/2024 11:00 EST - 10/14/2024 14:35 EST Surgery [facility] OR [address] [place] [address] [phone] Clemente Gerardo MD [address] [place] [address] [address] [place] [phone] Implantation of inflatable penile prosthesis [28469 (CPT??)] 10/17/2024 9:00 EST Telemedicine [address] [phone] Nurse Call, [facility] Urology 10/31/2024 15:00 EST Post-op Visit [address] [phone] Clemente Gerardo MD [address] [facility], Level [address] [place] [phone] 12/06/2024 10:15 EST Office Visit [facility] Ophthalmology [facility] [address] [place], [place] 364211 Spike Puentes MD [address] [place] [phone] Scheduled Procedures Name Priority Associated Diagnoses Date/Ti me INSERTION, PENILE PROSTHESIS, INFLATABLE, 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 10/14/2024 11:00 EST documented as of this encounter Visit Diagnoses Not on filedocumented in this encounter Care Teams Manager Transfer Relationship Specialty Start Date End Date Vel Santos MD PCP - General 10/30/11 03/09/23 documented as of this encounter
--- OUTSIDE RECORDS SUMMARY | 2024-07-19 22:14 | XMS_ITS | Encounter Summary ---
Author Organization [facility] Address [address] [place] [address] Care Team Providers Care Eviction Specialist Name Role Phone Vel Santos MD Primary Care Provider Unava ilable Encounter Details Date Type Department Care Team (Late st Contact Info) Description 10/20/[address] 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 Social History Tobacco Use Types Packs/Day Years [...] Appointment [facility] Pre-Surgical Testing [address], [place] [phone] 10/14/2024 11:00 EST Hospital Encounter [facility] [place] [address] [place] [address] [phone] Clemente Gerardo MD [address] [place] [address] [phone] 10/14/2024 11:00 EST - 10/14/2024 14:35 EST Surgery [facility] [place] [address] [place] [address] [phone] Clemente Gerardo MD [address] [place] [address] [phone] Implantation of inflatable penile prosthesis [82836 (CPT??)] 10/17/2024 9:00 EST Telemedicine [facility] Urolog[address] [phone] Nurse Call, [facility] Urology 10/31/2024 15:00 EST Post-op Visit [address] [phone] Clemente Gerardo MD [address] [place] [address] [phone] 12/06/2024 10:15 EST Office Visit [facility] Ophthalmology [address] [address] Spike Puentes MD [address] [place] [phone] Scheduled Procedures Name Priority Associated Diagnoses Date/Ti me INSERTION, PENILE PROSTHESIS, INFLATABLE, 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 10/14/2024 11:00 EST documented as of this encounter Visit Diagnoses Not on filedocumented in this encounter Discontinued Medications Medication Sig Discontinue Reason Start Date End Da te atorvastatin (LIPITOR) 40 mg tablet Take 40 mg by mouth daily. Duplicate order 10/20/2019 metoprolol XL (TOPROL-XL) 100 mg tablet Take 100 mg by mouth daily. Duplicate order 10/20/2019 buPROPion (WELLBUTRIN) 75 mg tablet Take 75 mg by mouth 3 times daily Duplicate order 10/20/2019 aspirin 325 mg tablet Take 1 Tab by mouth daily. Error 10/20/2019 alpha lipoic acid 200 mg capsule Take by mouth. Duplicate order 10/20/2019 ALPRAZolam (XANAX) 1 mg tablet Take 1 mg by mouth as needed. Duplicate order 10/20/2019 Calcium Citrate 250 mg calcium tablet Take 500 mg by mouth. Duplicate order 10/20/2019 cyclobenzaprine (FLEXERIL) 10 mg tablet Take 10 mg by mouth 2 times daily. Duplicate order 10/20/2019 folic acid (FOLVITE) 800 mcg tablet Take 800 mcg by mouth daily. Duplicate order 10/20/2019 Hydrocodone-Acetaminophen 10-660 mg tablet Take by mouth as needed. Duplicate order 10/20/2019 lisinopril (PRINIVIL, ZESTRIL) 5 mg tablet Take 5 mg by mouth daily. Duplicate order 10/20/2019 Magnesium 100 mg tablet Take 80 mg by mouth. Duplicate order 10/20/2019 omeprazole (PRILOSEC) 20 mg capsule Take 20 mg by mouth daily. Duplicate order 10/20/2019 Zinc 10 mg tablet Take 10 mg by mouth. Duplicate order 10/20/2019 documented as of this encounter Historical Medications * This list may reflect changes made after this encounter. Medication Sig Dispensed Refills Start Date End Date nitroGLYCERIN (NITROSTAT) 0.[address] 1 Tablet under the tongue as needed. 07/07/2014 LANCETS & BLOOD GLUCOSE STRIPS [facility] test strips and lancets for glucose monitor , Sig: test once a day test once a day 09/20/2018 blood glucose meter Glucose monitor,Sig: test once a day once a day 07/19/2018 DIABETIC SUPPLIES, EvaluAgentAN. [facility] Syringe 3cc 02/17/2017 Alcohol Swabs pads, medicated use as directed prior to Trimix administration 06/13/2011 06/20/2020 nystatin (MYCOSTATIN) ointment Apply 1 application topically 3 times daily as needed. 11/05/2015 02/12/2023 econazole nitrate 1 % cream Apply 1 application topically 2 times daily as needed. 11/05/2015 02/12/2023 aspirin 325 mg tablet Take 1 Tab by mouth daily. 10/20/2019 lamoTRIgine (LAMICTAL) 25 mg tablet Take 25 mg by mouth 2 times daily. 10/23/2020 budesonide-formoterol HFA (SYMBICORT) 80-4.5 mcg/actuation HFA aerosol inhaler inhaler Inhale 2 Puffs as directed 2 times daily. 12/26/19 buPROPion (WELLBUTRIN SR) 150 mg SR tablet Take 1 Tab by mouth every morning. 04/06/2014 10/30/2020 metoprolol XL (TOPROL-XL) 50 mg tablet Take 1 Tab by mouth daily. 06/05/2014 11/07/2019 mupirocin (BACTROBAN) 2 % ointment Apply 1 application topically 3 times daily. 06/06/2019 020 atorvastatin (LIPITOR) 20 mg tablet Take 3 Tabs by mouth at bedtime. 02/14/2020 pantoprazole (PROTONIX) 40 mg tablet Take 1 Tab by mouth daily. 03/06/2020 Miscellaneous Medical Supply misc needles gauge:22 length:1, Sig: self IM once a week for testosterone 02/17/2017 06/20/2020 [employer] misc needles gauge: 18 length:, Si.5 in self IM once a week for testosterone 11/09/2013 06/20/2020 added in this encounter Care Teams Eviction Specialist Relationship Specialty Start Date End Date Vel Santos MD PCP - General 10/30/11 03/09/23 documented as of this encounter
--- OUTSIDE RECORDS SUMMARY | 2024-07-19 22:14 | XMS_ITS | Encounter Summary ---
Author Organization [facility] Address [address] [place] [address] Care Team Providers Care Crate Tier Name Role Phone Vel Santos MD Primary Care Provider Marco Cowart MD Primary Care Provider [phone] Marco Aleman MD Primary Care Provider [phone] Encounter Details Date Type Department Care Team (Late st Contact Info) Description 08/16/2019 Results Only Imaging [facility] Radiology Results [address] [place], [place] [phone] Vel Santos MD Social History Tobacco Use [...] 10/04/2024 9:50 EST Appointment [facility] Pre-Surgical Testing [address] [place] [address] 10/14/2024 11:[address] [facility] OR [address] [place] [address] [phone] Clemente Gerardo MD [address] [place] [address] [phone] 10/14/2024 11:00 EST - 10/14/2024 14:[address] [facility] [place] [address] [place] [address] [phone] Clemente Gerardo MD [address] [place] [address] [phone] Implantation of inflatable penile prosthesis [47679 (CPT??)] 10/17/2024 9:00 EST Telemedicine [facility] Urology [address] [phone] Nurse Call, [facility] Urology 10/31/2024 15:00 EST Post-op Visit [address] [phone] Clemente Gerardo MD [address] [place] [address] [phone] 12/06/2024 10:15 EST Office Visit [facility] Ophthalmology [address] [address] Spike Puentes MD [address] [place] [address] [phone] Scheduled Procedures Name Priority Associated Diagnoses Date/Ti me INSERTION, PENILE PROSTHESIS, INFLATABLE, 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 10/14/2024 11:00 EST documented as of this encounter Procedures Procedure Name Priority Date/Time Associated Diagnosis Comments XR CHEST 2 VIEWS 08/16/2019 18:2 4 EDT documented in this encounter Results * XR CHEST 2 VIEWS (08/16/2019 18:24 EDT) Anatomical Region Laterality Modality Other 08/16/2019 18:2 4 EDT Narrative 08/16/2019 18:24 EDT ? EXAM: RADIOLOGY/CHEST PA ?? LAT ?EX. D/ (1738) ? CLINICAL INFORMATION: ? R05 COUGH. ??R/O PNEUMONIA ? PROCEDURE INFORMATION: ? Exam: XR Chest, 2 Views ? Exam date and time: 08/16/2019 5:18 PM ? Clinical history: 69 years old, male; Cough and other: R/O ? pneumonia; Additional info: R05 cough. R/O pneumonia ? TECHNIQUE: ? Imaging protocol: XR of the chest ? Views: 2 views. ? COMPARISON: ? CR CHEST (PA ?? LAT) 08/03/2018 5:18 PM ? FINDINGS: ? Lungs: Unremarkable. No consolidation. ? Pleural space: Unremarkable. No pleural effusion. No ? pneumothorax. ? Heart/Mediastinum: Unremarkable. No cardiomegaly. ? Vasculature: Pulmonary vascular markings upper normal. ? Bones/joints: Old left rib fractures. ? IMPRESSION: ? No acute abnormality identified. ? REPORT SIGNED IN OTHER VENDOR SYSTEM 08/16/2019 ?Reported By: Paul Smith MD ? CC: ? Transcribed Date/Time: 08/16/2019 (1823) ? Air Pollution Analyst: ? Printed Date/Time: 08/16/2019 (1823) ? PAGE 1 ? Signed Report ? Procedure Note Paul Smith MD - 09/10/2019 EXAM: RADIOLOGY/CHEST PA LAT EX. D/ (1738) CLINICAL INFORMATION: R05 COUGH. R/O PNEUMONIA PROCEDURE INFORMATION: Exam: XR Chest, 2 Views Exam date and time: 08/16/2019 5:18 PM Clinical history: 69 years old, male; Cough and other: R/O pneumonia; Additional info: R05 cough. R/O pneumonia TECHNIQUE: Imaging protocol: XR of the chest Views: 2 views. COMPARISON: CR CHEST (PA LAT) 08/03/2018 5:18 PM FINDINGS: Lungs: Unremarkable. No consolidation. Pleural space: Unremarkable. No pleural effusion. No pneumothorax. Heart/Mediastinum: Unremarkable. No cardiomegaly. Vasculature: Pulmonary vascular markings upper normal. Bones/joints: Old left rib fractures. IMPRESSION: No acute abnormality identified. REPORT SIGNED IN OTHER VENDOR SYSTEM 08/16/2019 Reported By: Paul Smith MD CC: Transcribed Date/Time: 08/16/2019 (1823) Air Pollution Analyst: Printed Date/Time: 08/16/2019 (1823) PAGE 1 Signed Report Vel Santos MD IMG DIAGNOSTIC IMAGI NG ORDERABLES documented in this encounter Visit Diagnoses Not on filedocumented in this encounter Care Teams Crate Tier Relationship Specialty Start Date End Date Vel Santos MD PCP - General 10/30/11 03/09/23 Marco Altamirano MD [address] [place] [phone] PCP - General Family Medicine - Primary Care 03/10/23 09/13/23 Marco Aleman MD [address] [facility] [address] [place] [phone] PCP - General Emergency Medicine 12/07/23 documented as of this encounter
--- OUTSIDE RECORDS SUMMARY | 2024-07-19 22:14 | XMS_ITS | Encounter Summary ---
Author Organization [facility] Address [address] [place] [address] Care Team Providers Care Tap Dancer Name Role Phone Vel Santos MD Primary Care Provider Dave doe Encounter Details Date Type Department Care Team (Latest Contact Info) Description 08/03/2018 11:37 EDT - 08/03/2018 23:59 EDT Hospital Encounter [facility] [address] [place] [address] Unknown, Provider, Discharge Disposition: Home or Self [...] day once a day 07/19/2018 DIABETIC SUPPLIES, MISCELLAN. MISC Syringe 3cc 02/17/2017 nitroGLYCERIN (NITROSTAT) 0.[address] 1 Tablet under the tongue as needed. 07/07/2014 Hkaqx-7-EHA-EPA-Fish Oil 1,000 (120-180) mg capsule Take 1,000 [...] mouth daily. 06/05/2014 11/07/2019 Misc[facility] needles gauge: 18 length:, Si.5 in self IM once a week for testosterone 11/09/2013 06/20/2020 Miscellaneous Medical [facility] needles gauge:22 length:1, Sig: self IM once [...] [facility] Pre-Surgical Testing [address] [place] [address] [phone] 10/14/2024 11:00 EST Hospital Encounter [facility] OR [address] [place] [address] [phone] Clemente Gerardo MD [address] [place] [address] [phone] 10/14/2024 11:00 EST - 10/14/2024 14:35 EST Surgery [facility] OR [address] [place] [address] [phone] Clemente Gerardo MD [address] [place] [address] [phone] Implantation of inflatable penile prosthesis [65985 (CPT??)] 10/17/2024 9:00 EST Telemedicine [address] [phone] Nurse Call, [facility] Urology 10/31/2024 15:00 EST Post-op Visit [address] [phone] Clemente Gerardo MD [address] [place] [address] [phone] 12/06/2024 10:15 EST Office Visit [facility] Ophthalmology [facility] [address] [place] [address] Spike Puentes MD [address] [place] [phone] Scheduled Procedures Name Priority Associated Diagnoses Date/Ti me INSERTION, PENILE PROSTHESIS, INFLATABLE, 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 10/14/2024 11:00 EST documented as of this encounter Visit Diagnoses Not on filedocumented in this encounter Care Teams Tap Dancer Relationship Specialty Start Date End Date Vel aSntos MD PCP - General 10/30/11 03/09/23 documented as of this encounter
--- OUTSIDE RECORDS SUMMARY | 2024-07-19 22:14 | XMS_ITS | Encounter Summary ---
Author Organization [facility] Address [address] [place] [address] Care Team Providers Care Podiatric Surgeon Name Role Phone Vel Santos MD Primary Care Provider Unava ilable Encounter Details Date Type Department Care Team (Late st Contact Info) Description 03/08/2019 Historical Results Only [facility] Lab - Main [address] [phone] Vel Santos MD Social History Tobacco Use [...] Appointment [facility] Pre-Surgical Testing [address] [place] [address] 10/14/2024 11:[address] [facility] OR [address] [place], [place] [phone] Clemente Gerardo MD [address] [place] [address] [phone] 10/14/2024 11:00 EST - 10/14/2024 14:[address] [facility] OR [address] [place] [address] [phone] Clemente Gerardo MD [address] [place] [address] [phone] Implantation of inflatable penile prosthesis [46679 (CPT??)] 10/17/2024 9:00 EST Telemedicine [address] [phone] Nurse Call, [facility] Urology 10/31/2024 15:00 EST Post-op Visit [address] [phone] Clemente Gerardo MD [address] [place] [address] [phone] 12/06/2024 10:15 EST Office Visit [facility] Ophthalmology [address] [address] Spike Puentes MD [address] [place] [phone] Scheduled Procedures Name Priority Associated Diagnoses Date/Ti me INSERTION, PENILE PROSTHESIS, INFLATABLE, 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 10/14/2024 11:00 EST documented as of this encounter Procedures Procedure Name Priority Date/Time Associated Diagnosis Comments MEASLES IGG AB Routine 03/08/2019 15:24 EDT BASIC METABOLIC PANEL (BMP) Routine 03/08/2019 15:23 EDT documented in this encounter Results * MEASLES IGG AB (03/08/2019 15:24 EDT) Pathologist [facility] RUBEOLA IGG ANTIBODY - [facility] Positive Negative 03/10/2019 22:49 EDT [facility] Comment:Presumed immune to M easles infection. 03/08/2019 15:2 4 EDT 03/08/2019 15:24 EDT Narrative [facility] - 03/10/2019 22:49 EDT Does PT Have a Latex Allergy? NO Vel Santos MD IMMUNOLOGY AND SERROSALVA DOCKERY ORDERABLES [facility] * (ABNORMAL) BASIC METABOLIC PANEL (BMP) (03/08/2019 15:23 EDT) Pathologist [facility] BUN - [facility] 14 10 - 26 mg/dL 03/08/2019 16:40 [facility] CALCIUM - [facility] 9.4 8.5 - 10.5 mg/dL 03/08/2019 16:40 [facility] Chloride 100 96 - 110 mmol/L 03/08/2019 16:40 [facility] CO2 Total 26 21 - 32 mEq/L 03/08/2019 16:40 [facility] CREATININE 1.10 0.66 - 1.25 mg/dL 03/08/2019 16:40 [facility] eGFR >60 03/08/2019 16:40 [facility] Comment: Chronic renal impairment is defined as GFR <60 Multiply result by 1.210 for patients. Anion Gap 9 0 - 18 03/08/2019 16:40 [facility] GLUCOSE - [facility] 90 70 - 100 mg/dL 03/08/2019 16:40 [facility] Potassium 4.1 3.5 - 5.0 mEq/L 03/08/2019 16:40 [facility] Sodium 135(L) 136 - 145 mEq/L 03/08/2019 16:40 [facility] 03/08/2019 15:2 3 EDT 03/08/2019 15:23 EDT Narrative [facility] - 03/08/2019 16:40 EDT Does PT Have a Latex Allergy? NO Vel Santos MD CHEMISTRY & BLOOD GA S ORDERABLES [facility] documented in this encounter Visit Diagnoses Not on filedocumented in this encounter Care Teams Podiatric Surgeon Relationship Specialty Start Date End Date Vel Santos MD PCP - General 10/30/11 03/09/23 documented as of this encounter
--- OUTSIDE RECORDS SUMMARY | 2024-07-19 22:14 | XMS_ITS | Encounter Summary ---
Author Organization [facility] Address [address] [place] [address] Care Team Providers Care Jerker Name Role Phone Vel Santos MD Primary Care Provider Unava ilable Reason for Visit * Reason Onset Date Comments Other 01/23/2020 Covid 19 Call Ce nter Encounter Details Date Type Department Care Team (Late st Contact Info) Description 01/26/2020 Telephone [facility] Family Medicine [facility] [address] , [address] [place], [place] [phone] Aliza Blankenship RN Other (Covid 19 Call Center) Social History Tobacco Use Types Packs/Day Years [...] encounter Miscellaneous Notes * Telephone Encounter - Loretta Zamorano - 01/26/2020 1606 EDT ..C-19 screening recommended by provider. Routed for testing ordering. Vehicle [employer] F250 Color: Dark Red/Brown Cell #: [phone] Spoke to patient and verbally gave instructions for Testing Facility. Patient is instructed to be there at 1:00 pm sharp on 01/27/2020. * Telephone Encounter - Dayana Naidu PA-C - 01/26/2020 1546 EDT Please call this pt to schedule testing. Thank you. * Telephone Encounter - Aliza Blankenship - 01/26/2020 1533 EDT This patient is calling the [facility] COVID-19 information center with concern for COVID-19. The patient has had fever, achiness, fatigue, sore throat, cough, shortness of breath, headache for3 days. This patient does fall under category for testing per the [facility] algorithm due to age and co-morbidities. The patient is stable to wait until testing can be scheduled. documented in this encounter Plan of Treatment Upcoming Encounters Date Type Department Care Team (Late st Contact Info) Description 10/04/2024 9:50 EST Appointment [facility] Pre-Surgical Testing [address] [place] [phone] 10/14/2024 11:00 EST Hospital Encounter [facility] OR [address] [place] [address] [phone] Clemente Gerardo MD [address] [place] [address] [phone] 10/14/2024 11:00 EST - 10/14/2024 14:35 EST Surgery [facility] OR [address] [place] [address] [phone] Clemente Gerardo MD [address] [place] [address] [place] [phone] Implantation of inflatable penile prosthesis [07109 (CPT??)] 10/17/2024 9:00 EST Telemedicine [facility] Urology [address] [phone] Nurse Call, [facility] Urology 10/31/2024 15:00 EST Post-op Visit [facility] Urolog[address] [phone] Clemente Gerardo MD [address] [place] [address] [phone] 12/06/2024 10:15 EST Office Visit [facility] [address] [place] [address] Spike Puentes MD [address] [place] [phone] Scheduled Procedures Name Priority Associated Diagnoses Date/Ti me INSERTION, PENILE PROSTHESIS, INFLATABLE, 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 10/14/2024 11:00 EST documented as of this encounter Visit Diagnoses Diagnosis Cough- Primary Erectile dysfunction after radical prostatectomy documented in this encounter Care Teams Jerker Relationship Specialty Start Date End Date Vel Santos MD PCP - General 10/30/11 03/09/23 documented as of this encounter
--- OUTSIDE RECORDS SUMMARY | 2024-07-19 22:14 | XMS_ITS | Encounter Summary ---
Author Organization [facility] Address [address] [place] [address] Care Team Providers Care Conservation Planner Name Role Phone Vel Santos MD Primary Care Provider Unava ilable Reason for Visit * Reason Onset Date Comments Other 04/12/2018 Encounter Details Date Type Department Care Team (Late st Contact Info) Description 04/12/2018 Telephone [facility] Ophthalmology [facility] [address] [place] [address] Spike Puentes MD [address] [place] [phone] Other Social History Tobacco Use Types Packs/Day [...] encounter Miscellaneous Notes * Telephone Encounter - Erma Cruz - 04/12/2018 6166 EDT Will e-mail patient copy of computer glasses. ERMA CRUZ * Telephone Encounter - Iza Garces - 04/12/2018 1216 EDT Roland called, wants his computer RX given to him over the phone. Please call to discuss. documented in this encounter Plan of Treatment Upcoming Encounters Date Type Department Care Team (Late st Contact Info) Description 10/04/2024 9:50 EST Appointment [facility] Pre-Surgical Testing [address] [place] [address] [phone] 10/14/2024 11:00 EST Hospital Encounter [facility] OR [address] [place] [address] [phone] Clemente Gerardo MD [address] [place] [address] [phone] 10/14/2024 11:00 EST - 10/14/2024 14:35 EST Surgery [facility] OR [address] [place] [address] [phone] Clemente Gerardo MD [address] [place] [address] [phone] Implantation of inflatable penile prosthesis [83241 (CPT??)] 10/17/2024 9:00 EST Telemedicine [facility] [address] [phone] Nurse Call, [facility] Urology 10/31/2024 15:00 EST Post-op Visit [address] [phone] Clemente Gerardo MD [address] [place] [address] [phone] 12/06/2024 10:15 EST Office Visit [facility] Ophthalmology [facility] [address] [place] [address] Spike Puentes MD [address] [place] [phone] Scheduled Procedures Name Priority Associated Diagnoses Date/Ti me INSERTION, PENILE PROSTHESIS, INFLATABLE, 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 10/14/2024 11:00 EST documented as of this encounter Visit Diagnoses Not on filedocumented in this encounter Care Teams Conservation Planner Relationship Specialty Start Date End Date Vel Santos MD PCP - General 10/30/11 03/09/23 documented as of this encounter
--- OUTSIDE RECORDS SUMMARY | 2024-07-19 22:14 | XMS_ITS | Encounter Summary ---
Author Organization [facility] Address [address] [place] [address] Care Team Providers Care Programming Manager Name Role Phone Vel Santos MD Primary Care Provider Unava ilable Encounter Details Date Type Department Care Team (Late st Contact Info) Description 11/25/2018 Results Only [facility] [phone] Quirino Nickerson MD [address] [place] [address] [address] [place] [phone] Social History Tobacco Use Types Packs/Day Years [...] 9:[address] [facility] [place] Pre-Surgical Testing [address], [place] [phone] 10/14/2024 11:00 EST Hospital Encounter [facility] OR [address] [place] [address] 482001 Clemente Gerardo MD [address] [place] [address] [phone] 10/14/2024 11:00 EST - 10/14/2024 14:35 EST Surgery [facility] OR [address] [place] [address] [phone] Clemente Gerardo MD [address] [place] [address] [phone] Implantation of inflatable penile prosthesis [36139 (CPT??)] 10/17/2024 9:00 EST Telemedicine [facility] Urology [address] [phone] Nurse Call, [facility] Urology 10/31/2024 15:00 EST Post-op Visit [facility] [phone] Clemente Gerardo MD [address] [place] [address] [phone] 12/06/2024 10:15 EST Office Visit [facility] Ophthalmology [address] [address] Spike Puentes MD [address] [place] [address] [phone] Scheduled Procedures Name Priority Associated Diagnoses Date/Ti me INSERTION, PENILE PROSTHESIS, INFLATABLE, 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 10/14/2024 11:00 EST documented as of this encounter Procedures Procedure Name Priority Date/Time Associated Diagnosis Comments SURGICAL PATHOLOGY Routine 11/25/2018 13 :57 EST documented in this encounter Results * SURGICAL PATHOLOGY (11/25/2018 13:57 EST) Pathology Report: SURGICAL PATHOLOGY REPORT Reports generated via electronic interface contain original data; however they are lacking the format of the original report. Caution should be taken when reading/interpreting unformatted reports. Name: ? GLORIA GARCIA ? Accession #: ? [id number] ? : ? 1950 (Age: 68) ??M ? Collect Date: ? 11/25/2018 ? Location: ? [facility] ? Receive Date: ? 11/26/2018 ? Provider: QUIRINO NICKERSON MD Copy to: VEL SANTOS MD ? Final Pathologic Diagnosis: SKIN OF NASAL DORSUM, RIGHT, SHAVE BIOPSY: - Verruca vulgaris. Microscopic Description: The stratum corneum is thickened by compact orthohyperkeratosis with tiers of parakeratosis and foci of hemorrhage. ??The epidermis is hyperplastic with papillomatosis and acanthosis. ??The acanthotic rete ridges have an inward-bending configuration. ??The superficial keratinocytes have perinuclear vacuoles. ??The granular layer is accentuated. ??(Dr. Agarwal)/[facility] Document reviewed and electronically signed by: ROSE MARIE AGARWAL MD Report ??Date: 11/29/2018 12:23 By the signature above, the attending physician certifies that he/she has personally conducted a gross and/or microscopic examination of the described specimens and rendered or confirmed the above diagnosis. Specimen(s) Received: Right nasal dorsum shave biopsy Clinical History: Cutaneous horn, DDx: Squamous cell carcinoma vs verruca vulgaris vs HAK vs SK vs other, Mohs; clinical diagnosis code: ??D48.5 Gross Description: ? Received in formalin labelled with proper patient identification (initials H, P) and right nasal dorsum is a firm granular conde cutaneous horn, 0.7 cm in length and 0.3 cm in diameter. The base margin is inked. Entirely submitted in 1. LAZARO Bassett (ASCP) 11/26/2018 2:11 PM End of Report [facility] 11/25/2018 13:5 7 EST 11/26/2018 13:57 EST Quirino Nickerson MD PATHOLOGY ORDER [facility] [address] [place] [address] documented in this encounter Visit Diagnoses Not on filedocumented in this encounter Care Teams Programming Manager Relationship Specialty Start Date End Date Vel Santos MD PCP - General 10/30/11 03/09/23 documented as of this encounter
--- OUTSIDE RECORDS SUMMARY | 2024-07-19 22:14 | XMS_ITS | Encounter Summary ---
Author Organization [facility] Address [address] [place] [address] Care Team Providers Care Centerless Grinder Set Up Operator Name Role Phone Vel Santos MD Primary Care Provider Unava ilable Encounter Details Date Type Department Care Team (Late st Contact Info) Description 04/20/2018 Historical Results Only [facility] Radiology Results [address] [place], [place] [phone] Rachel Segundo MD [address] [facility] [address] [place] [address] Social History Tobacco Use Types Packs/Day [...] [facility] Pre-Surgical Testing [address] [place] [address] 10/14/2024 11:00 EST Hospital Encounter [facility] OR [address] [place] [address] [phone] Clemente Gerardo MD [address] [place] [address] [phone] 10/14/2024 11:00 EST - 10/14/2024 14:35 EST Surgery [facility] OR [address] [place] [address] [phone] Clemente Gerardo MD [address] [place] [address] [phone] Implantation of inflatable penile prosthesis [13692 (CPT??)] 10/17/2024 9:00 EST Telemedicine [facility] Urology [address] [phone] Nurse Call, [facility] Urology 10/31/2024 15:00 EST Post-op Visit [address] [phone] Clemente Gerardo MD [address] [place] [address] [phone] 12/06/2024 10:15 EST Office Visit [facility] Ophthalmology [address] [address] Spike Puentes MD [address] [place] [address] [phone] Scheduled Procedures Name Priority Associated Diagnoses Date/Ti me INSERTION, PENILE PROSTHESIS, INFLATABLE, 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 10/14/2024 11:00 EST documented as of this encounter Procedures Procedure Name Priority Date/Time Associated Diagnosis Comments XR ANKLE LEFT 3 OR MORE VIEWS 04/20/2018 15:35 EDT XR FOOT LEFT 3 OR MORE VIEWS 04/20/2018 15:32 EDT documented in this encounter Results * XR ANKLE LEFT 3 OR MORE VIEWS (04/20/2018 15:35 EDT) Anatomical Region Laterality Modality Lower Extremities, Ankle Left Other 04/20/2018 15:3 5 EDT Narrative 04/20/2018 15:38 EDT ? EXAM: RADIOLOGY EXPRESS CARE/EXP CARE ANK EX. D/ (1520) ? CLINICAL INFORMATION: ? LEFT LATERAL ANKLE PAIN AND SWELLING, NO ACUTE INJURY ? INDICATION: LEFT LATERAL ANKLE PAIN AND SWELLING, NO ACUTE INJURY, ? PERIPHERAL NEUROPATHY. ? COMPARISON: None.. ? TECHNIQUE: 3+ views of the left ankle were obtained. ? FINDINGS: ? There is swelling of the ankle soft tissues. There are small ? calcaneal spurs. There are mild degenerative arthritic changes within ? the ankle joint. There is mild irregularity and periostitis along the ? medial metaphysis of the distal tibia possibly secondary to an old ? syndesmosis sprain. There is a mild deformity of the distal ? metaphysis of the tibia suspicious for an old healed fracture. ? Correlate clinically. If there is no prior history of fracture to the ? distal tibia then further assessment with MRI should be considered. ? There are mild vascular calcifications within the lower leg. ? IMPRESSION: ? 1. Swelling of the ankle soft tissues. ? 2. Mild deformity of the distal tibia metaphysis with mild ? periostitis along the lateral surface of the distal tibia metaphysis ? likely the sequelae of old fracture and syndesmosis injury. Correlate ? clinically. If there is been no prior history of fracture then ? further assessment with MRI should be considered. ? REPORT SIGNED IN OTHER VENDOR SYSTEM 04/20/2018 ?Reported By: Philip Bain MD ? CC: ? Transcribed Date/Time: 04/20/2018 (1538) ? Service Tester: [email or web address] ? Printed Date/Time: 04/22/2019 (0910) ? PAGE 1 ? Signed Report ? Procedure Note Philip Bain MD - 09/07/2019 EXAM: RADIOLOGY EXPRESS CARE/EXP CARE ANK EX. D/ (1520) CLINICAL INFORMATION: LEFT LATERAL ANKLE PAIN AND SWELLING, NO ACUTE INJURY INDICATION: LEFT LATERAL ANKLE PAIN AND SWELLING, NO ACUTE INJURY, PERIPHERAL NEUROPATHY. COMPARISON: None.. TECHNIQUE: 3+ views of the left ankle were obtained. FINDINGS: There is swelling of the ankle soft tissues. There are small calcaneal spurs. There are mild degenerative arthritic changeswithin the ankle joint. There is mild irregularity and periostitis alongthe medial metaphysis of the distal tibia possibly secondary to an old syndesmosis sprain. There is a mild deformity of the distal metaphysis of the tibia suspicious for an old healed fracture. Correlate clinically. If there is no prior history of fracture tothe distal tibia then further assessment with MRI should be considered. There are mild vascular calcifications within the lower leg. IMPRESSION: 1. Swelling of the ankle soft tissues. 2. Mild deformity of the distal tibia metaphysis with mild periostitis along the lateral surface of the distal tibiametaphysis likely the sequelae of old fracture and syndesmosis injury.Correlate clinically. If there is been no prior history of fracture then further assessment with MRI should be considered. REPORT SIGNED IN OTHER VENDOR SYSTEM 04/20/2018 Reported By: Philip Bain MD CC: Transcribed Date/Time: 04/20/2018 (1538) Service Tester: Printed Date/Time: 04/22/2019 (1366) PAGE 1 Signed Report Rachel Segundo MD IMG DIAGNOSTIC IMAGI NG ORDERABLES * XR FOOT LEFT 3 OR MORE VIEWS (04/20/2018 15:32 EDT) Anatomical Region Laterality Modality Lower Extremities Left Other 04/20/2018 15:3 2 EDT Narrative 04/20/2018 15:35 EDT ? EXAM: RADIOLOGY EXPRESS CARE/EXP CARE JESSY EX. D/ (9520) ? CLINICAL INFORMATION: ? LATERAL LEFT FOOT PAIN AND SWELLING, NO ACUTE INJURY ? INDICATION: LATERAL LEFT FOOT PAIN AND SWELLING, NO ACUTE INJURY, ? PERIPHERAL NEUROPATHY. ? COMPARISON: Left foot radiograph 04/28/2017. ? TECHNIQUE: 3 views of the left foot were obtained. ? FINDINGS: ? Mild swelling of the foot soft tissues. ? Small calcaneal spurs. ? Osteochondroma at the medial metaphysis of the great toe distal ? phalanx. ? Mild degenerative arthrosis of the great toe metatarsal phalangeal ? joint. ? Mild degenerative arthritic changes within the interphalangeal joints ? of all toes. ? Normal bone density. ? No fracture. ? No radiopaque soft tissue foreign body. ? IMPRESSION: ? 1. Soft tissue swelling. ? 2. Osteoarthritis. ? 3. No fracture. ? REPORT SIGNED IN OTHER VENDOR SYSTEM 04/20/2018 ?Reported By: Philip Bain MD ? CC: ? Transcribed Date/Time: 04/20/2018 (3777) ? Service Tester: ? Printed Date/Time: 04/22/2019 (1989) ? PAGE 1 ? Signed Report ? Procedure Note Philip Bain MD - 09/07/2019 EXAM: RADIOLOGY EXPRESS CARE/EXP CARE JESSY EX. D/ (1520) CLINICAL INFORMATION: LATERAL LEFT FOOT PAIN AND SWELLING, NO ACUTE INJURY INDICATION: LATERAL LEFT FOOT PAIN AND SWELLING, NO ACUTE INJURY, PERIPHERAL NEUROPATHY. COMPARISON: Left foot radiograph 04/28/2017. TECHNIQUE: 3 views of the left foot were obtained. FINDINGS: Mild swelling of the foot soft tissues. Small calcaneal spurs. Osteochondroma at the medial metaphysis of the great toe distal phalanx. Mild degenerative arthrosis of the great toe metatarsal phalangeal joint. Mild degenerative arthritic changes within the interphalangealjoints of all toes. Normal bone density. No fracture. No radiopaque soft tissue foreign body. IMPRESSION: 1. Soft tissue swelling. 2. Osteoarthritis. 3. No fracture. REPORT SIGNED IN OTHER VENDOR SYSTEM 04/20/2018 Reported By: Philip Bain MD CC: Transcribed Date/Time: 04/20/2018 (8164) Service Tester: Printed Date/Time: 04/22/2019 (2524) PAGE 1 Signed Report Rachel Segundo MD IMG DIAGNOSTIC IMAGI NG ORDERABLES documented in this encounter Visit Diagnoses Not on filedocumented in this encounter Care Teams Centerless Grinder Set Up Operator Relationship Specialty Start Date End Date Vel Santos MD PCP - General 10/30/11 03/09/23 documented as of this encounter
--- OUTSIDE RECORDS SUMMARY | 2024-07-19 22:14 | XMS_ITS | Encounter Summary ---
Author Organization [facility] Address [address] [place] [address] Care Team Providers Care Irrigationist Name Role Phone Vel Santos MD Primary Care Provider Unava ilable Reason for Visit * Reason Onset Date Comments Medications Refill 02/13/2020 refill Medications Refill 02/14/2020 Encounter Details Date Type Department Care Team (Late st Contact Info) Description 02/13/2020 Telephone [facility] [address], [facility] [address] [place], [place] [phone] Vel Santos MD Medications Refill (refill); Medications Refill Social History Tobacco Use Types [...] for 90 days. Daily Max: 200 mg 12 mL 5 02/14/2020 02/14/2020 documented in this encounter Miscellaneous Notes * Telephone Encounter - Cheri Rodrigues RN - 02/14/2020 1450 EDT To [facility] for refill * Telephone Encounter - Lisa Smith - 02/14/2020 1434 EDT Patients called, states pharmacy did not have the 10 ml bottle of this medication. She is wondering if she can get prescription called into [facility] in [place] instead because they have the 10ml bottle. * Telephone Encounter - Janeth Gilliland - 02/13/2020 1413 EDT CV MEDICATION REFILL Medication: testosterone Medication, dose, directions verified: yes Pharmacy verified: yes Last office visit: 01/27/2020 Next office visit: NONE * Telephone Encounter - Cheri Rodrigues RN - 02/13/2020 1333 EDT To [facility] for refill proccess * Telephone Encounter - Lisa Smith - 02/13/2020 1220 EDT Patients called, states patient needs refill of testosterone cypionate 200 mg/ml. States he usually gets it in a 10 ml bottle. Would like this sent to [facility] in [place]. documented in this encounter Plan of Treatment Upcoming Encounters Date Type Department Care Team (Late st Contact Info) Description 10/04/2024 9:50 EST Appointment [facility] Pre-Surgical Testing [address] [place] [address] 10/14/2024 11:00 EST Hospital Encounter [facility] OR [address] [place] [address] [phone] Clemente Gerardo MD [address] [place] [address] [phone] 10/14/2024 11:00 EST - 10/14/2024 14:35 EST Surgery [facility] OR [address] [place] [address] [phone] Clemente Gerardo MD [address] [place] [address] [phone] Implantation of inflatable penile prosthesis [84911 (CPT??)] 10/17/2024 9:00 EST Telemedicine [facility] Urology [address] [phone] Nurse Call, [facility] Urology 10/31/2024 15:00 EST Post-op Visit [facility] [address] [phone] Clemente Gerardo MD [address] [place] [address] [phone] 12/06/2024 10:15 EST Office Visit [facility] Ophthalmology [address] [address] Spike Puentes MD [address] [place] [phone] Scheduled Procedures Name Priority Associated Diagnoses Date/Ti me INSERTION, PENILE PROSTHESIS, INFLATABLE, 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 10/14/2024 11:00 EST documented as of this encounter Visit Diagnoses Not on filedocumented in this encounter Discontinued Medications Medication Sig Discontinue Reason Start Date End Da te testosterone cypionate (DEPO-TESTOSTERONE) 200 mg/mL injection Inject 200 mg into the muscle every 7 days. Reorder 02/13/2020 documented as of this encounter Care Teams Irrigationist Relationship Specialty Start Date End Date Vel Santos MD PCP - General 10/30/11 03/09/23 documented as of this encounter
--- OUTSIDE RECORDS SUMMARY | 2024-07-19 22:14 | XMS_ITS | Encounter Summary ---
Author Organization [facility] Address [address] [place] [address] Care Team Providers Care Plastics Bench Mechanic Name Role Phone Vel Santos MD Primary Care Provider Marco Cowart MD Primary Care Provider [phone] Marco Aleman MD Primary Care Provider [phone] Reason for Visit * Reason Onset Date Comments Cough 01/26/2020 Triage- cough/ b chas aches Encounter Details Date Type Department Care Team (Late st Contact Info) Description 01/26/2020 Telephone [facility] Family Medicine [place] [address], [facility] [address] [place] [address] Vel Santos MD Cough (Triage- cough/ body aches) Social History Tobacco Use Types Packs/Day Years [...] daily on days 2 through 5. 6 Tab 01/27/2020 06/20/2020 documented in this encounter Miscellaneous Notes * Telephone Encounter - Ragini Hdz - 01/30/2020 1403 EDT I created a visit on 01/26 * Telephone Encounter - Vel Santos MD - 01/27/2020 1003 EDT I did a telemedicine call to them. Please create an encounter for me * Telephone Encounter - Vel Santos MD - 01/27/2020 0959 EDT Called the patient at home. He has two weeks of symptoms, now with malaise, low grade fevers, deep chest cough, headache, and sore throat. was ill with similar but she is coming around. He is prone to pneumonia. For this reason, after discussion will send in antibiotic to [facility]. Reinforced the need to self quarantine- they are set up for Covid-19 testing today at 1pm given comorbidities. * Telephone Encounter - Cheri Rodrigues RN - 01/26/2020 1641 EDT Patient is schedule for testing 01/26 at 1pm. To TC patient stated that when he talked to the provider at the call center they mentioned about PNA and needs to be eval by the PCP for PNA. Patient is not short of breath, I informed patient that Iwill relay the message to TC And most likely we would wait for him to be cleared or get the result for covid-19 before we can proceed with the plan, patient able to understand. Will do supportive care * Telephone Encounter - Sherita RodriguesBouchra, RN - 01/26/2020 6866 EDT Health teaching given below: COVID counseling/scripting [facility] [place] only recommending COVID testing for high risk individuals (>60 with medical comorbidities, immunocompromised patients, women), hospitalized patient, health care workers, and first responders due to limited testing supplies. If you do not fall into one of these categories then COVID testing will not be done. COVID is a viral illness that cannot be treated with antibiotics or antivirals, and there is no vaccine. We treat it like any other viral illness but ask people to self-isolate. Symptoms are fever, cough, and shortness of breath that can last 2-4 weeks. Some people will have sore throat, body aches, or diarrhea. It is spread through person to person contact or by touching objects and surfaces that are contaminated with the virus and then touching your mouth, nose, or eyes. We advise that you stay home and self-isolate until 72 hours after fever resolves and at least for a total of 7 days, except to get medical care. ? Stay home, get rest, and hydrate. ? Take OTC pain relievers, fever reducers, decongestants or cough medicine to manage symptoms. (check with PCP first if you have chronic health conditions) ? Do not go to work/school/public areas. ? Avoid public transportation/ride-sharing/taxis. ? Separate yourself from other people and animals in your home. ? Stay in a specific room away from other people. ? Use a separate bathroom if available. ? Cover your coughs and sneezes with a tissue. ? Wear a facemask when around other people. ? Avoid sharing personal household items (cups, dishes, utensils, towels, bedding) ? Clean your hands often either with soap and water for 20 seconds or an alcohol-based hand brush trimming machine setter that contains at least 60% alcohol. ? Clean high-touch surfaces every day (counter, tables, doorknobs, toilet, computer, etc) We ask that you check your temperature and monitor your symptoms daily. Seek prompt medical care ifyour illness is worsening. Complications of the illness include pneumonia, organ failure, and in some cases . Severe symptoms include: ? Severe shortness of breath or difficulty breathing (feeling like you can't get enough air or are gasping, unable to speak without stopping for air, feelings of distress). ? Weakness, dizziness, or chest pain. If you are experiencing any of these symptoms please call your primary care office BEFORE seeking care, or call 911 if it's a medical emergency. Inform your PCP office or bus and trolley dispatcher that you are on self-isolation for possible COVID19 and have worsening symptoms. Please put on a facemask before entering the facility. These steps will help reduce possible transmission to other people. * Telephone Encounter - Cheri Rodrigues RN - 01/26/2020 1553 EDT See call center hotline notes. Orders for covid-19 were done. Will call in a bit * Telephone Encounter - Vel Santos MD - 01/26/2020 1539 EDT Call. Order created for testing given his age, and his co morbid condition of heart disease. Inform they look over the requests and call to set him upwith an appointment time at the drive up which is here in our parking lot. He and need to self-isolate mian * Telephone Encounter - Cheri Rodrigues RN - 01/26/2020 1531 EDT To TC, * Telephone Encounter - Lisa Smith - 01/26/2020 1505 EDT Patients called stating patient is experiencing low grade fever, cough, body aches, headaches and nausea intermittently for the past two and a half weeks. 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 documented in this encounter Plan of Treatment Upcoming Encounters Date Type Department Care Team (Late st Contact Info) Description 10/04/2024 9:50 EST Appointment [facility] Pre-Surgical Testing [address] [place] [address] [phone] 10/14/2024 11:00 EST Hospital Encounter [facility] OR [address] [place] [address] [phone] Clemente Gerardo MD [address] [place] [address] [phone] 10/14/2024 11:00 EST - 10/14/2024 14:35 EST Surgery [facility] OR [address] [place] [address] [phone] Clemente Gerardo MD [address] [place] [address] [phone] Implantation of inflatable penile prosthesis [83613 (CPT??)] 10/17/2024 9:00 EST Telemedicine [facility] Urolog[address] [phone] Nurse Call, [facility] Urology 10/31/2024 15:00 EST Post-op Visit [facility] Urology [address] [phone] Clemente Gerardo MD [address] [place] [phone] 12/06/2024 10:15 EST Office Visit [facility] Ophthalmology [facility] [address] [place] [address] Spike Puentes MD [address] [place] [phone] Scheduled Procedures Name Priority Associated Diagnoses Date/Ti me INSERTION, PENILE PROSTHESIS, INFLATABLE, 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 10/14/2024 11:00 EST documented as of this encounter Visit Diagnoses Diagnosis Cough in adult- Primary ASCVD (arteriosclerotic cardiovascular disease) Unspecified cardiovascular disease Erectile dysfunction after radical prostatectomy documented in this encounter Care Teams Plastics Bench Mechanic Relationship Specialty Start Date End Date Vel Santos MD PCP - General 10/30/11 03/09/23 Marco Altamirano MD [address] [place] [address] [phone] PCP - General Family Medicine - Primary Care 03/10/23 09/13/23 Marco Aleman MD [address] [place] [address] [place] [address] PCP - General Emergency Medicine 12/07/23 documented as of this encounter
--- OUTSIDE RECORDS SUMMARY | 2024-07-19 22:14 | XMS_ITS | Encounter Summary ---
Author Organization [facility] Address [address] [place] [address] Care Team Providers Care Irish Moss Bleacher Name Role Phone Vel Santos MD Primary Care Provider Unava ilable Reason for Referral * (Routine) - Closed Specialty Diagnoses / Procedures Referred By Contac t Referred To Contact Diagnoses Glaucoma suspect, bilateral Procedures OCT (OPHTHALMIC DIGITAL IMAGING, POSTERIOR SEGMENT) Spike Puentes MD [address] [place] [phone] Referral ID Status Reason Start Date Expiration Date Visits Re quested Visits Authorized [id number] Closed 03/07/2019 1 1 * (Routine) - Closed Specialty Diagnoses / Procedures Referred By [facility] Referred To Contact Diagnoses Glaucoma suspect, bilateral Procedures VISUAL FIELD EXAM, EXTENDED Spike Puentes MD [address] [place] [phone] Referral ID Status Reason Start Date Expiration Date Visits Re quested Visits Authorized [id number] Closed 03/07/2019 1 1 Reason for Visit * Reason Comments Eye Problem 1 episode of distort ed vision (thinks right eye only) lasting about 30 mins Glaucoma Suspicion Yearly visit/follow up Encounter Details Date Type Department Care Team (Late st Contact Info) Description 03/07/2019 8:15 EDT Office Visit [facility] - [place] [address] [place] [address] Spike Puentes MD [address] [place] [phone] Social History Tobacco Use Types Packs/Day Years [...] Progress Notes * Spike Puentes MD - 03/07/2019 0815 EDT Chief Complaint Patient presents with ??? Eye Problem 1 episode of distorted vision (thinks right eye only) lasting about 30 mins ??? Glaucoma Suspicion Yearly visit/follow up HPI The patient is a 68 y.o. male here for yearly follow up visit for Glaucoma Suspicion and for recentepisode of distorted vision, lasting about 30 minutes. Overall his vision is stable, with possible slight decrease, mostly for close, eyes feel stained often with some doubling when tired. He had an episode of distorted vision in the right eye with crescent shape crystal lasting about half hour, with no headache. He has many floaters in the left eye, also notices some in the right, no flashes. Noeye pain. Right Eye: Floaters, Distorted Vision, Blurred Vision, Tired, Mucous / Discharge Left Eye: Floaters, Blurred Vision, Tired, Mucous / Discharge Visual Aid: Glasses Current Rx Age Location: Pain: 0 - No pain Quality: Severity: Moderate Duration: Months Timing: Constant Lasts: Continuous Context: Pt had an episode of distorted vision in the right eye - lasting about 30 mins. - vision was decreased in right eye then noticed crystal crescent shape. He feels vision may be decreasing gradually, uses computer alot, has strained feeling eyes, crusty in mornings. 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 diabetic ) Hematologic: NL Immunologic: Drug Allergy(sordfish, mild seasonal allergies) Biofuels Production Manager: NL Exposures: None Other: Attestation: Base Eye Exam Visual Acuity (Snellen - Linear) Right Left Dist cc 20/25 -2 20/200 -1 Tonometry (Applanation, 9:16) Right Left Pressure 18 21 Pupils Dark Light APD Right 4.5 3.5 None Left 4.5 3.5 None Visual Lovett (Counting fingers) Right Left Full Full Extraocular Movement Right Left Full Full Neuro/Psych Oriented x3: Yes Mood/Affect: Normal Dilation Both eyes: 1.0% Mydriacyl, 2.5% Phenylephrine @ 9:16 Slit Lamp and Fundus Exam Slit Lamp Exam Right Left Lids/Lashes Normal [...] Normal Normal Refraction Wearing Rx Sphere Cylinder Alvord Add Right -0.75 +1.25 030 +3.00 Left -1.75 +1.25 160 +3.00 Manifest Refraction Sphere Cylinder Alvord Dist VA Add Right -0.50 +1.25 022 20/20 +3.00 Left -2.00 +1.25 160 20/200 +3.00 Final Rx Sphere Cylinder Alvord Add Right -0.50 +1.25 022 Left -2.00 +1.25 160 Type: svl-distance Final Rx #2 Sphere Cylinder Alvord Add Right +1.00 +1.25 022 +1.25 Left -0.50 +1.25 160 +1.25 DIAGNOSTIC TESTS: Indication: glaucoma suspect OCT Optic nerve head and rNFL: Right: signal strength: 8/10 avg thickness 90 Left: signal strength: 6/10 avg thickness 61 thinning superior and inferior (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 Glaucoma suspect -IOP today stable -HVF 24-2 & rNFL OCT today are stable. Continue to monitor with OCT rNFL and HVF 24-2 in 1 year 2. Migraine aura without headache Normal dilated retinal exam. -Reassurance provided -Discussed possible triggers -Encouraged relaxation and keeping lifestyle/symptom journal to identify possible triggers -Return with more frequent episodes, new neurologic symptoms, or symptoms of retinal detachment. 3. Cataract, both eyes Not visually significant -Monitor periodically 4. Posterior vitreous detachment, both eye(s) Stable, monitor periodically 5. Amblyopia, left eye -stable I have reviewed the patient's past medical, family, social and surgical history. I have also reviewed the patient's medications, allergies, and problem list. I performed my own HPI and have reviewed the tech's ROS as well. I completed this exam personally. Spike Puentes MD I am scribing for Spike Puentes MD, while he is personally performing the service. JOZEF Caruso Patient Education Topic: glaucoma suspect, ocular migraine, cataracts Method: Verbal Taught to: Patient Barriers: None Outcomes: independent Signature: Spike Puentes MD documented in this encounter Plan of Treatment Upcoming Encounters Date Type Department Care Team (Late st Contact Info) Description 10/04/2024 9:50 EST Appointment [facility] Pre-Surgical Testing [address] [place] [address] 10/14/2024 11:00 EST Hospital Encounter [facility] OR [address] [place] [address] Clemente Gerardo MD [address] [facility], Level [address] [place] [phone] 10/14/2024 11:00 EST - 10/14/2024 14:35 EST Surgery [facility] OR [address] [place] [address] [phone] Clemente Gerardo MD [address] [place] [address] 5 [place] [phone] Implantation of inflatable penile prosthesis [95640 (CPT??)] 10/17/2024 9:00 EST Telemedicine [facility] [phone] Nurse Call, [facility] Urology 10/31/2024 15:00 EST Post-op Visit [address] [phone] Clemente Gerardo MD [address] [place] [address] 5 [place] [phone] 12/06/2024 10:15 EST Office Visit [facility] Ophthalmology [address] [address] Spike Puentes MD [address] [place] [phone] Scheduled Orders Name Type Priority Associated Diagnoses Orde r Schedule VISUAL FIELD EXAM, EXTENDED Ophthalmology Routine Glaucoma Suspect, Bilateral Ordered: 03/07/2019 OCT (OPHTHALMIC DIGITAL IMAGING, POSTERIOR SEGMENT) Ophthalmology Routine Glaucoma Suspect, Bilateral Ordered: 03/07/2019 Scheduled Procedures Name Priority Associated Diagnoses Date/Ti me INSERTION, PENILE PROSTHESIS, INFLATABLE, 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 10/14/2024 11:00 EST documented as of this encounter Visit Diagnoses Diagnosis Glaucoma suspect, bilateral- Primary Migraine aura without headache Migraine with aura, without mention of intractable migraine without mention of status migrainosus Senile nuclear sclerosis, right Senile nuclear sclerosis, left Posterior vitreous detachment of both eyes Vitreous degeneration Amblyopia of eye, left Erectile dysfunction after radical prostatectomy documented in this encounter Historical Medications * This list may reflect changes made after this encounter. Medication Sig Dispensed Refills Start Date End Date cholecalciferol, Vitamin D3, 125 mcg (5000 unit) capsule Take by mouth daily. testosterone cypionate (DEPO-TESTOSTERONE) 200 mg/mL injection Inject 200 mg into the muscle every 7 days. 02/13/2020 ranitidine (ZANTAC) 300 mg tablet Take 300 mg by mouth daily. 03/06/2020 clopidogrel (PLAVIX) 75 mg tablet Take 75 mg by mouth daily. 12/26/2019 ubidecarenone/vitamin E mixed (COQ10 SG 100 ORAL) Take by mouth daily. 06/03/2024 added in this encounter Eye Exam Visual Acuity (Snellen - Linear) Right eye Left eye Dist cc 20/25 -2 20/200 -1 Tonometry (Applanation, 9:16) Right eye Left eye Pressure 18 21 Pupils Dark Light APD Right eye 4.5 3.5 None Left eye 4.5 3.5 None Visual Lovett (Counting fingers) Right eye Left eye Full Full Extraocular Movement Right eye Left eye Full Full Neuro/Psych Oriented x3: Yes Mood/Affect: Normal Dilation Both eyes: 1.0% Mydriacyl, 2 .5% Phenylephrine @ 9:16 Slit Lamp Exam Right eye Left eye [...] Normal Normal Periphery Normal Normal Wearing Rx Sphere Cylinder Alvord Add Right eye -0.75 +1.25 030 +3.00 Left eye -1.75 +1.25 160 +3.00 Manifest Refraction Sphere Cylinder Alvord Dist VA Add Right eye -0.50 +1.25 022 20/20 +3.00 Left eye -2.00 +1.25 160 20/200 +3.00 Final Rx #1 Sphere Cylinder Alvord Add Right eye -0.50 +1.25 022 Left eye -2.00 +1.25 160 Type: svl-distance Final Rx #2 Sphere Cylinder Alvord Add Right eye +1.00 +1.25 022 +1.25 Left eye -0.50 +1.25 160 +1.25 Care Teams Irish Moss Bleacher Relationship Specialty Start Date End Date Vel Santos MD PCP - General 10/30/11 03/09/23 documented as of this encounter
--- OUTSIDE RECORDS SUMMARY | 2024-07-19 22:14 | XMS_ITS | Encounter Summary ---
Author Organization [facility] Address [address] [place] [address] Care Team Providers Care Purchaser [employer]otive [employer] Name Role Phone Vel Santos MD Primary Care Provider Unava ilable Reason for Visit * Reason Onset Date Comments Medications Refill 10/12/2019 Encounter Details Date Type Department Care Team (Late st Contact Info) Description 10/12/2019 Refill [facility] [address], [address] [place], [place] [phone] Vel Santos MD Medications Refill Social History [...] EST Appointment [facility] [place] Pre-Surgical Testing [address] [place] [address] 10/14/2024 11:00 EST Hospital Encounter [facility] OR [address] [place] [address] [id number] Clemente Gerardo MD [address] [place] [phone] 10/14/2024 11:00 EST - 10/14/2024 14:35 EST Surgery [facility] OR [address] [place] [address] [id number] Clemente Gerardo MD [address] [place] [phone] Implantation of inflatable penile prosthesis [91516 (CPT??)] 10/17/2024 9:00 EST Telemedicine [facility] Urology [address] [phone] Nurse Call, [facility] Urology 10/31/2024 15:00 EST Post-op Visit [address] [phone] Clemente Gerardo MD [address] [place] [phone] 12/06/2024 10:15 EST Office Visit [facility] Ophthalmology [address] [address] Spike Puentes MD [address] [place] [phone] Scheduled Procedures Name Priority Associated Diagnoses Date/Ti me INSERTION, PENILE PROSTHESIS, INFLATABLE, 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 10/14/2024 11:00 EST documented as of this encounter Visit Diagnoses Not on filedocumented in this encounter Care Teams [employer] Relationship Specialty Start Date End Date Vel Santos MD PCP - General 10/30/11 03/09/23 documented as of this encounter
--- OUTSIDE RECORDS SUMMARY | 2024-07-19 22:14 | XMS_ITS | Encounter Summary ---
Author Organization [facility] Address [address] [place] [address] Care Team Providers Care Beautician Apprentice Name Role Phone Vel Santos MD Primary Care Provider Marco Cowart MD Primary Care Provider [phone] Marco Aleman MD Primary Care Provider [phone] Reason for Visit * Reason Onset Date Comments Medications Refill 02/14/2020 refill Encounter Details Date Type Department Care Team (Late st Contact Info) Description 02/14/2020 Refill [facility] Family Medicine [place] [address] [address], [facility] 2 [place] [address] Vel Santos MD Medications Refill (refill) Social History Tobacco Use Types Packs/Day Years [...] bedtime for 90 days. 270 Tab 3 02/14/2020 12/07/2020 documented in this encounter Miscellaneous Notes * Telephone Encounter - Janeth Gilliland - 02/14/2020 1057 EDT [facility] MEDICATION REFILL ?? Medication: atorvastatin Medication, dose, directions verified: yes Pharmacy verified: yes Last office visit: 01/27/2020 Next office visit: NONE * Telephone Encounter - hCeri Rodrigues RN - 02/14/2020 1013 EDT To [facility] for refill process * Telephone Encounter - Lisa Smith - 02/14/2020 1009 EDT Patients called, patient needs refill of atorvastatin 20 mg- 3 times daily. States he needs 3 months supply sent to [facility]. documented in this encounter Plan of Treatment Upcoming Encounters Date Type Department Care Team (Late st Contact Info) Description 10/04/2024 9:50 EST Appointment [facility] Pre-Surgical Testing [address] [place] [address] [phone] 10/14/2024 11:00 EST Hospital Encounter [facility] OR [address] [place] [address] [phone] Clemente Gerardo MD [address] [place] [phone] 10/14/2024 11:00 EST - 10/14/2024 14:35 EST Surgery [facility] OR [address] [place] [address] [phone] Clemente Gerardo MD [address] [place] [address] 5 [place] [phone] Implantation of inflatable penile prosthesis [79651 (CPT??)] 10/17/2024 9:00 EST Telemedicine [facility] Urology [address] [phone] Nurse Call, [facility] Urology 10/31/2024 15:00 EST Post-op Visit [facility] Urology [address] [phone] Clemente Gerardo MD [address] [place] [phone] 12/06/2024 10:15 EST Office Visit [facility] Ophthalmology [address] [address] Spike Puentes MD [address] [place] [phone] Scheduled Procedures Name Priority Associated Diagnoses Date/Ti me INSERTION, PENILE PROSTHESIS, INFLATABLE, 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 10/14/2024 11:00 EST documented as of this encounter Visit Diagnoses Not on filedocumented in this encounter Discontinued Medications Medication Sig Discontinue Reason Start Date End Da te atorvastatin (LIPITOR) 20 mg tablet Take 3 Tabs by mouth at bedtime. Reorder 02/14/2020 documented as of this encounter Care Teams Beautician Apprentice Relationship Specialty Start Date End Date Vel Santos MD PCP - General 10/30/11 03/09/23 Marco Altamirano MD [address] [place] [phone] PCP - General Family Medicine - Primary Care 03/10/23 09/13/23 Marco Aleman MD [address] [place] [address] [place] [phone] PCP - General Emergency Medicine 12/07/23 documented as of this encounter
--- OUTSIDE RECORDS SUMMARY | 2024-07-19 22:14 | XMS_ITS | Encounter Summary ---
Author Organization [facility] Address [address] [place] [address] Care Team Providers Care Car Body Mechanic Name Role Phone Vel Santos MD Primary Care Provider Unava ilable Reason for Visit * Reason Onset Date Comments Referral Request 10/04/2019 Encounter Details Date Type Department Care Team (Late st Contact Info) Description 10/04/2019 Telephone [facility] Medicine [facility] [address], [address] [place] [address] Vel Santos MD Referral Request Social History Tobacco Use Types Packs/Day [...] Notes * Telephone Encounter - Jada Pitts - 10/11/2019 1030 EST Moved to urgent and faxed. * Telephone Encounter - Vel Santos MD - 10/04/2019 1214 EST Okay to change to urgent * Telephone Encounter - Sarah Tsang RN - 10/04/2019 1045 EST Referral looks like it was placed 09/20; however, referral was marked as routine/next available. * Telephone Encounter - Janet Carrillo - 10/04/2019 1019 EST Pt's called stating she sent TC a personal e-mail regarding pt, she would like to speak with TC regarding referral to [facility] [place]. She is wondering if this has been sent yet or how it can be sent to them, states this should have been/be marked as an urgent referral. Their fax number is: [phone] - once faxed call [phone] to confirm they received it. They are trying to get pt in with them before the end of the year. documented in this encounter Plan of Treatment Upcoming Encounters Date Type Department Care Team (Late st Contact Info) Description 10/04/2024 9:50 EST Appointment [facility] Pre-Surgical Testing [address] [place] [address] [phone] 10/14/2024 11:00 EST Hospital Encounter [facility] OR [address] [place], [place] [phone] Clemente Gerardo MD [address] [facility], Level [address] [place] [phone] 10/14/2024 11:00 EST - 10/14/2024 14:35 EST Surgery [facility] OR [address] [place] [address] [phone] Clemente Gerardo MD [address] [place] [address] 5 [place] [phone] Implantation of inflatable penile prosthesis [44355 (CPT??)] 10/17/2024 9:[address] [facility] Urology [address] [phone] Nurse Call, [facility] Urology 10/31/2024 15:00 EST Post-op Visit [facility] [address] [phone] Clemente Gerardo MD [address] [place] [phone] 12/06/2024 10:15 EST Office Visit [address] [address] Spike Puentes MD [address] [place] [phone] Scheduled Procedures Name Priority Associated Diagnoses Date/Ti me INSERTION, PENILE PROSTHESIS, INFLATABLE, 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 10/14/2024 11:00 EST documented as of this encounter Visit Diagnoses Not on filedocumented in this encounter Care Teams Car Body Mechanic Relationship Specialty Start Date End Date Vel Santos MD PCP - General 10/30/11 03/09/23 documented as of this encounter
--- OUTSIDE RECORDS SUMMARY | 2024-07-19 22:14 | XMS_ITS | Encounter Summary ---
Author Organization [facility] Address [address] [place] [address] Care Team Providers Care Facsimile Operator Name Role Phone Vel Santos MD Primary Care Provider Unava ilable Reason for Visit * Reason Onset Date Comments Medications Refill 02/14/2020 Encounter Details Date Type Department Care Team (Late st Contact Info) Description 02/14/2020 Refill [facility] [address] [place] [address] Vel Santos MD Medications Refill Social History [...] Max: 200 mg 12 mL 5 02/14/2020 01/29/2021 documented in this encounter Miscellaneous Notes * Telephone Encounter - Janeth Gilliland - 02/14/2020 0501 EDT See other te un able to get 10 ml bottle at other pharmacy pls re sign new order documented in this encounter Plan of Treatment Upcoming Encounters Date Type Department Care Team (Late st Contact Info) Description 10/04/2024 9:50 EST Appointment [facility] Pre-Surgical Testing [address] [place] [address] [phone] 10/14/2024 11:00 EST Hospital Encounter [facility] OR [address] [place] [address] [phone] Clemente Gerardo MD [address] [place] [phone] 10/14/2024 11:00 EST - 10/14/2024 14:35 EST Surgery [facility] OR [address] [place] [address] [phone] Clemente Gerardo MD [address] [place] [phone] Implantation of inflatable penile prosthesis [52310 (CPT??)] 10/17/2024 9:00 EST Telemedicine [address] [phone] Nurse Call, [facility] Urology 10/31/2024 15:00 EST Post-op Visit [address] [phone] Clemente Gerardo MD [address] [place] [phone] 12/06/2024 10:15 EST Office Visit [facility] Ophthalmology [facility] [address] [place] [address] Spike Puentes MD [address] [place] [phone] Scheduled Procedures Name Priority Associated Diagnoses Date/Ti [...] days. Daily Max: 200 mg Reorder 02/14/2020 02/14/2020 documented as of this encounter Care Teams Facsimile Operator Relationship Specialty Start Date End Date Vel Santos MD PCP - General 10/30/11 03/09/23 documented as of this encounter
--- OUTSIDE RECORDS SUMMARY | 2024-07-19 22:14 | XMS_ITS | Encounter Summary ---
Author Organization [facility] Address [address] [place] [address] Care Team Providers Care Tin Can Laborer Name Role Phone Vel Santos MD Primary Care Provider Unava ilable Encounter Details Date Type Department Care Team (Late st Contact Info) Description 08/03/2018 Historical Results Only [facility] Radiology Results [address] [place] [address] Deny Shane MD [address] [place] [phone] Social History Tobacco Use Types Packs/Day Years [...] EST Appointment [facility] [place] Pre-Surgical Testing [address] [place] [address] [phone] 10/14/2024 11:00 EST Hospital Encounter [facility] OR [address] [place] [address] [phone] Clemente Gerardo MD [address] [place] [address] [phone] 10/14/2024 11:00 EST - 10/14/2024 14:35 EST Surgery [facility] OR [address] [place] [address] [phone] Clemente Gerardo MD [address] [place] [address] [phone] Implantation of inflatable penile prosthesis [87761 (CPT??)] 10/17/2024 9:00 EST Telemedicine [facility] Urology [address] [phone] Nurse Call, [facility] Urology 10/31/2024 15:00 EST Post-op Visit [address] [phone] Clemente Gerardo MD [address] [place] [address] [phone] 12/06/2024 10:15 EST Office Visit [facility] Ophthalmology [address] [address] Spike Puentes MD [address] [place] [phone] Scheduled Procedures Name Priority Associated Diagnoses Date/Ti me INSERTION, PENILE PROSTHESIS, INFLATABLE, 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 10/14/2024 11:00 EST documented as of this encounter Procedures Procedure Name Priority Date/Time Associated Diagnosis Comments TROPONIN I Routine 08/03/2018 19:52 EDT XR CHEST 2 VIEWS 08/03/2018 17:5 3 EDT COMPLETE BLOOD COUNT WITH DIFFERENTIAL (AUTO) Routine 08/03/2018 16:50 EDT TROPONIN I Routine 08/03/2018 16:50 EDT MAGNESIUM Routine 08/03/2018 16:50 EDT COMPREHENSIVE METABOLIC PANEL (CMP) Routine 08/03/2018 16:50 EDT documented in this encounter Results * TROPONIN I (08/03/2018 19:52 EDT) Troponin I (ng/mL) <0.012 0.000 - 0.034 ng/mL 08/03/2018 20:[address] [facility] Comment: Interpretation comments: ??Cutoff for a positive troponin result is set at the 99th percentile of the upper reference limit. ??Elevated troponin must always be interpreted in the context of the clinical presentation. ?Serial troponin testing 3-6 hr from baseline is favored over relying on a single troponin level. ?? The results of this assay can be falsely lowered due to the consumption of Biotin. 08/03/2018 19:5 2 EDT 08/03/2018 19:[address] [facility] - 08/03/2018 20:52 EDT Time to be drawn: 1950 Clemente Yañez MD CHEMISTRY & BLOOD GA S ORDERABLES [facility] * XR CHEST 2 VIEWS (08/03/2018 17:53 EDT) Anatomical Region Laterality Modality Other 08/03/2018 17:5 3 EDT Narrative 08/03/2018 17:54 EDT ? EXAM: RADIOLOGY/CHEST (PA ?? LAT) ?EX. D/ (9147) ? CLINICAL INFORMATION: ? cp ? EXAM: ?XR Chest, 2 Views ? EXAM DATE/TIME: ?08/03/2018 4:42 PM ? CLINICAL HISTORY: ?68 years old, male; Pain; Chest pain; Type not specified; ? Additional info: Cp ? TECHNIQUE: ?XR of the chest, 2 views. ? COMPARISON: ?CR CHEST (PA ?? LAT) 04/05/2018 8:56 PM ? FINDINGS: ?Lungs: Unremarkable. No consolidation. ?Pleural space: Unremarkable. No pleural effusion. No ? pneumothorax. ?Heart/Mediastinum: Unremarkable. No cardiomegaly. ?Bones/joints: Unremarkable for patient's age. ? IMPRESSION: ? No acute findings. ? REPORT SIGNED IN OTHER VENDOR SYSTEM 08/03/2018 ?Reported By: Ernst Licea MD ? CC: Deny Shane MD ? Transcribed Date/Time: 08/03/2018 (1754) ? Insights Manager: .VRAD ? Printed Date/Time: 04/23/2019 (0744) ? PAGE 1 ? Signed Report ? Procedure Note Ernst Licea MD - 09/08/2019 EXAM: RADIOLOGY/CHEST (PA LAT) EX. D/ (8464) CLINICAL INFORMATION: cp EXAM: XR Chest, 2 Views EXAM DATE/TIME: 08/03/2018 4:42 PM CLINICAL HISTORY: 68 years old, male; Pain; Chest pain; Type not specified; Additional info: Cp TECHNIQUE: XR of the chest, 2 views. COMPARISON: CR CHEST (PA LAT) 04/05/2018 8:56 PM FINDINGS: Lungs: Unremarkable. No consolidation. Pleural space: Unremarkable. No pleural effusion. No pneumothorax. Heart/Mediastinum: Unremarkable. No cardiomegaly. Bones/joints: Unremarkable for patient's age. IMPRESSION: No acute findings. REPORT SIGNED IN OTHER VENDOR SYSTEM 08/03/2018 Reported By: Ernst Licea MD CC: Deny Shane MD Transcribed Date/Time: 08/03/2018 (6970) Insights Manager: Printed Date/Time: 04/23/2019 (3366) PAGE 1 Signed Report Deny Shane MD IMG DIAGNOSTIC I MAGING ORDERABLES * MAGNESIUM (08/03/2018 16:50 EDT) Magnesium 1.80 1.7 - 2.8 mg/dL 08/03/2018 17:[address] [facility] 08/03/2018 16:5 0 EDT 08/03/2018 16:54 EDT Deny Shane MD CHEMISTRY & BLOO D GAS ORDERABLES [facility] * (ABNORMAL) COMPREHENSIVE METABOLIC PANEL (CMP) (08/03/2018 16:50 EDT) Albumin % 4.1 3.4 - 4.9 g/dL 08/03/2018 17:[address] [facility] ALKALINE PHOSPHATASE - [facility] 93 38 - 126 U/L 08/03/2018 17:[address] [facility] BILIRUBIN TOTAL 0.7 0.2 - 1.3 mg/dL 08/03/2018 17:[address] [facility] BUN - [facility] 15 10 - 26 mg/dL 08/03/2018 17:15 [facility] CALCIUM - [facility] 9.6 8.5 - 10.5 mg/dL 08/03/2018 17:15 [facility] Chloride 102 96 - 110 mmol/L 08/03/2018 17:15 [facility] CO2 Total 25 21 - 32 mEq/L 08/03/2018 17:15 [facility] CREATININE 1.12 0.66 - 1.25 mg/dL 08/03/2018 17:15 [facility] eGFR >60 08/03/2018 17:15 [facility] Comment: Chronic renal impairment is defined as GFR <60 Multiply result by 1.210 for patients. Anion Gap 13 0 - 18 08/03/2018 17:15 [facility] GLUCOSE - [facility] 104(H) 70 - 100 mg/dL 08/03/2018 17:15 [facility] Potassium 4.4 3.5 - 5.0 mEq/L 08/03/2018 17:15 [facility] Sodium 140 136 - 145 mEq/L 08/03/2018 17:15 [facility] TOTAL PROTEIN - [facility] 7.8 6.2 - 8.2 gm/dL 08/03/2018 17:15 [facility] SGOT/AST - [facility] 61(H) 17 - 59 U/L 08/03/2018 17:15 [facility] SGPT/ALT - [facility] 110(H) 21 - 72 U/L 08/03/2018 17:15 [facility] 08/03/2018 16:5 0 EDT 08/03/2018 16:54 EDT Deny Shane MD CHEMISTRY & BLOO D GAS ORDERABLES [facility] * TROPONIN I (08/03/2018 16:50 EDT) Troponin I (ng/mL) <0.012 0.000 - 0.034 ng/mL 08/03/2018 17:[address] [facility] Comment: Interpretation comments: ??Cutoff for a positive troponin result is set at the 99th percentile of the upper reference limit. ??Elevated troponin must always be interpreted in the context of the clinical presentation. ?Serial troponin testing 3-6 hr from baseline is favored over relying on a single troponin level. ?? The results of this assay can be falsely lowered due to the consumption of Biotin. 08/03/2018 16:5 0 EDT 08/03/2018 16:54 EDT Deny Shane MD CHEMISTRY & BLOO D GAS ORDERABLES [facility] * (ABNORMAL) COMPLETE BLOOD COUNT WITH DIFFERENTIAL (AUTO) (08/03/2018 16:50 EDT) ABSOLUTE NEUTROPHIL COUN - [facility] 2.78 1.7 - 7.0 10e3/ul 08/03/2018 17:[address] [facility] BASO # - [facility] 0.02 0.0 - 0.3 10e3/uL 08/03/2018 17:[address] [facility] BASO % - [facility] 0 0 - 2 % 08/03/2018 17:[address] [facility] EOS # - [facility] 0.09 0.05 - 0.5 10e3/uL 08/03/2018 17:[address] [facility] EOS % - [facility] 2 0 - 5 % 08/03/2018 17:[address] [facility] GRAN % - [facility] 47 40 - 80 % 08/03/2018 17:[address] [facility] HEMATOCRIT - [facility] 42.4 36.0 - 52.0 % 08/03/2018 17:[address] [facility] HEMOGLOBIN - [facility] 13.9 13.7 - 17.5 g/dl 08/03/2018 17:[address] [facility] IG# - [facility] 0.01 0 - 0.07 10e3/uL 08/03/2018 17:[address] [facility] IG% - [facility] 0.2 0 - 0.9 % 08/03/2018 17:[address] [facility] LYMPH # - [facility] 2.38 0.9 - 2.9 10e3/uL 08/03/2018 17:[address] [facility] LYMPH% - [facility] 41(H) 20 - 40 % 08/03/2018 17:[address] [facility] MEAN CORPUSCULAR HGB - [facility] 30.5 26 - 34 pg 08/03/2018 17:[address] [facility] MEAN CORPUSCULAR HGB CONC - [facility] 32.8 31 - 36 g/dL 08/03/2018 17:00 [facility] MEAN CELL VOLUME - [facility] 93.0 77 - 100 fl 08/03/2018 [facility] # - [facility] 0.60 0.3 - 0.9 10e3/uL 08/03/2018 17:[address] [facility] MONO% - [facility] 10 0 - 12 % 08/03/2018 17:[address] [facility] PLATELET COUNT 169 150 - 400 10e3/ul 08/03/2018 [facility] RED BLOOD COUNT - [facility] 4.56 4.3 - 5.7 10e6/ul 08/03/2018 [facility] RED CELL DISTRI WIDTH - [facility] 13.2 11.8 - 15.6 % 08/03/2018 17:[address] [facility] WHITE BLOOD COUNT - [facility] 5.9 3.5 - 10.5 10e3/ul 08/03/2018 [facility] 08/03/2018 16:5 0 EDT 08/03/2018 16:54 EDT Deny Shane MD HEMATOLOGY & PF4 ORDERABLES [facility] documented in this encounter Visit Diagnoses Not on filedocumented in this encounter Care Teams Tin Can Laborer Relationship Specialty Start Date End Date Vel Santos MD PCP - General 10/30/11 03/09/23 documented as of this encounter
--- OUTSIDE RECORDS SUMMARY | 2024-07-19 22:14 | XMS_ITS | Encounter Summary ---
Author Organization [facility] Address [address] [place] [address] Care Team Providers Care Fitting Room Maintenance Mechanic Name Role Phone Vel Santos MD Primary Care Provider Unava ilable Reason for Visit * Reason Onset Date Comments Referral Request 09/13/2019 Encounter Details Date Type Department Care Team (Late st Contact Info) Description 09/13/2019 Telephone [facility] Family Medicine [facility] [address] , [address] [place] [address] Vel Santos MD Referral Request Social History [...] Telephone Encounter - Vel Santos MD - 09/13/2019 1505 EST Cancel his appt. With albin and rona, and change his referral for [place] [facility] [place]- I sent this in. documented in this encounter Plan of Treatment Upcoming Encounters Date Type Department Care Team (Late st Contact Info) Description 10/04/2024 9:50 EST Appointment [facility] Pre-Surgical Testing [address] [place] [address] [phone] 10/14/2024 11:00 EST Hospital Encounter [facility] OR [address] [place] [address] [phone] Clemente Gerardo MD [address] [place] [address] [phone] 10/14/2024 11:00 EST - 10/14/2024 14:35 EST Surgery [facility] OR [address] [place] [address] [phone] Clemente Gerardo MD [address] [place] [address] [phone] Implantation of inflatable penile prosthesis [65144 (CPT??)] 10/17/2024 9:00 EST Telemedicine [facility] Urology [address] [phone] Nurse Call, [facility] Urology 10/31/2024 15:00 EST Post-op Visit [facility] Urology [address] [phone] Clemente Gerardo MD [address] [place] [phone] 12/06/2024 10:15 EST Office Visit [facility] Ophthalmology [facility] [address] [place], [place] [phone] Spike Puentes MD [address] [place] [phone] Scheduled Procedures Name Priority Associated Diagnoses Date/Ti me INSERTION, PENILE PROSTHESIS, INFLATABLE, 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 10/14/2024 11:00 EST documented as of this encounter Visit Diagnoses Diagnosis Reflux esophagitis- Primary Erectile dysfunction after radical prostatectomy documented in this encounter Care Teams Fitting Room Maintenance Mechanic Relationship Specialty Start Date End Date Vel Santos MD PCP - General 10/30/11 03/09/23 documented as of this encounter
--- OUTSIDE RECORDS SUMMARY | 2024-07-19 22:14 | XMS_ITS | Encounter Summary ---
Author Organization [facility] Address [address] [place] [address] Care Team Providers Care Sporting Goods Sales Associate Name Role Phone Vel Santos MD Primary Care Provider Unava ilable Reason for Visit * Reason Onset Date Comments Medications Refill 11/03/2019 Medications Refill 11/07/2019 Encounter Details Date Type Department Care Team (Late st Contact Info) Description 11/03/2019 Refill [facility] Medicine [facility] [address] , [facility] [address] [place], [place] [phone] Vel Santos MD Medications Refill; Medications Refill [...] Dispensed Refills Start Date End Da te metoprolol succinate 25 mg capsule,sprinkle,ER 24hr Take 50 mg by mouth daily for 90 days. 180 Cap 3 11/07/2019 02/05/2020 documented in this encounter Miscellaneous Notes * Telephone Encounter - Cheri Rodrigues RN - 11/07/2019 0949 EST Pended meds for TC to review * Telephone Encounter - Jj Joseph - 11/03/2019 1558 EST Xin needs refill/new rx for metoprolol succenate 50mg - is it possible to get it in the 25mg capsules (just take 2) as we continue to adjust this medication. Formerly [facility], 90 day supply documented in this encounter Plan of Treatment Upcoming Encounters Date Type Department Care Team (Late st Contact Info) Description 10/04/2024 9:50 EST Appointment [facility] Pre-Surgical Testing [address] [place] [address] [phone] 10/14/2024 11:00 EST Hospital Encounter [facility] OR [address] [place] [address] [phone] Clemente Gerardo MD [address] [place] [address] [phone] 10/14/2024 11:00 EST - 10/14/2024 14:35 EST Surgery [facility] OR [address] [place] [address] [phone] Clemente Gerardo MD [address] [place] [address] [address] [place] [phone] Implantation of inflatable penile prosthesis [77515 (CPT??)] 10/17/2024 9:00 EST Telemedicine [facility] Urology - [address] [phone] Nurse Call, [facility] Urology 10/31/2024 15:00 EST Post-op Visit [facility] Urology - [facility] [address] [place], [place] [phone] Clemente Gerardo MD [address] [facility], [address] [place] [phone] 12/06/2024 10:15 EST Office Visit [facility] Ophthalmology [facility] [address] [place] [address] Spike Puentes MD [address] [place] [phone] Scheduled Procedures Name Priority Associated Diagnoses Date/Ti me INSERTION, PENILE PROSTHESIS, INFLATABLE, 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 10/14/2024 11:00 EST documented as of this encounter Visit Diagnoses Not on filedocumented in this encounter Discontinued Medications Medication Sig Discontinue Reason Start Date End Da te metoprolol XL (TOPROL-XL) 50 mg tablet Take 1 Tab by mouth daily. Order modification 06/05/2014 11/07/2019 documented as of this encounter Care Teams Sporting Goods Sales Associate Relationship Specialty Start Date End Date Vel Santos MD PCP - General 10/30/11 03/09/23 documented as of this encounter
--- OUTSIDE RECORDS SUMMARY | 2024-07-19 22:14 | XMS_ITS | Encounter Summary ---
Author Organization [facility] Address [address] [place] [address] Care Team Providers Care Property Claims Adjuster Name Role Phone Vel Santos MD Primary Care Provider Unava ilable Reason for Referral * (Routine) - New Request Specialty Diagnoses / Procedures Referred By Yi cummings Referred To Contact Diagnoses Glaucoma suspect, bilateral Procedures OCT (OPHTHALMIC DIGITAL IMAGING, POSTERIOR SEGMENT) Spike Puentes MD [address] [place] [phone] Referral ID Status Reason Start Date Expiration Date V isits Requested Visits Authorized [id number] New Request 03/02/2018 1 1 * (Routine) - New Request Specialty Diagnoses / Procedures Referred By Yi cummings Referred To Contact Diagnoses Glaucoma suspect, bilateral Procedures VISUAL FIELD EXAM, EXTENDED Spike Puentes MD [address] [place] [phone] Referral ID Status Reason Start Date Expiration Date V isits Requested Visits Authorized [id number] New Request 03/02/2018 1 1 Reason for Visit * Reason Comments Glaucoma Suspicion Amblyopia - Left eye .Complete exam, HVF 24-2 and RNFL OCT. Encounter Details Date Type Department Care Team (Late st Contact Info) Description 03/02/2018 13:45 EDT Office Visit [facility] Ophthalmology - [place] [address] [place] [address] Spike Puentes MD [address] [place] [phone] Social History Tobacco Use Types Packs/Day Years [...] Progress Notes * Spike Puentes MD - 03/02/2018 1345 EDT Chief Complaint Patient presents with ??? Glaucoma Suspicion Amblyopia - Left eye .Complete exam, HVF 24-2 and RNFL OCT. HPI The patient is a 67 y.o. male here for yearly eye exam. A few months ago he started seeing verticalflashes in the left eye. Now floaters in the left eye look different, darker & blurry and flashes have lessened. Both of his eyes tear often. No pain. Right Eye: Glare or Light Sensitivity, Tearing Left Eye: Blurred Vision, Floaters, Flashes, Glare or Light Sensitivity, Tearing Visual Aid: Glasses Current Rx Age Location: Pain: 0 - No pain Quality: Severity: Duration: Timing: Lasts: Context: About 2 months ago he started having flashes of light out of left eye. He now has new blurry floaters out of left eye. His vision is alot darker and blurry. Both eyes tear alot and he had a gritty feeling in left eye with some soreness when the flashes started . Modifying factors: Associated Signs & Symptoms: Attestation: ROS Constitutional: NL ENT/Mouth NL Cardiovascular: High Blood Pressure, High Cholesterol Respiratory: NL Gastrointestinal: NL Genitourinary: NL Musculoskeletal: NL Integumentary: NL Neurologic: NL Psychiatric: NL Endocrine: NL Hematologic: NL Immunologic: Drug Allergy Radio Officer: Exposures: None Other: Attestation: Base Eye Exam Visual Acuity (Snellen - Linear) Right Left Dist cc 20/20 20/200 Near cc J1+ Tonometry (Applanation, 14:36) Right Left Pressure 18 20 Pupils Pupils Dark APD Right PERRL 3 None Left PERRL 3 None Visual Lovett (Counting fingers) Right Left Result Full Full Neuro/Psych Oriented x3: Yes Mood/Affect: Normal Dilation Both eyes: 1.0% Mydriacyl, 2.5% Phenylephrine @ 14:38 Slit Lamp and Fundus Exam Slit Lamp Exam Right Left Lids/Lashes Normal Normal Conjunctiva/Sclera White and quiet small cyst nasal Cornea Clear Clear Anterior Chamber Deep and quiet Deep and quiet Iris Round and reactive Round and reactive Lens 1+ Nuclear sclerosis 1+ Nuclear sclerosis Fundus Exam Right Left Vitreous Posterior vitreous detachment Asteroid hyalosis, Andrews ring Disc Normal Normal C/D Ratio 0.6 0.7 Macula trace Epiretinal membrane Normal Vessels Normal Normal Periphery Normal Normal Refraction Wearing Rx Sphere Cylinder Adkins Add Right -1.00 +1.25 030 +3.00 Left -1.25 +1.25 161 +3.00 Age: 5yrs Type: Bifocal Manifest Refraction Sphere Cylinder Adkins Dist Add Near Right -0.75 +1.25 030 20/20 +3.00 J1+ Left -1.75 +1.25 160 20/150-1 +3.00 Final Rx Sphere Cylinder Adkins Add Right -0.75 +1.25 030 +3.00 Left -1.75 +1.25 160 +3.00 Expiration Date: 03/02/2020 DIAGNOSTIC TESTS: Indication: glaucoma suspect OCT Optic nerve head and rNFL: Right: signal strength: 8/10 avg thickness 90 no thinning Left: signal strength: 7/10 avg thickness 67 thinning superiorly, borderline inferiorly Indication: glaucoma suspect HVF 24-2: Right: reliable (6%FP), full Left: reliable (11/16 FL), full (displaced blind spot due to poor fixation.) IMPRESSION & PLAN: 1. Glaucoma suspect -IOP today stable -HVF 24-2 & rNFL OCT today are stable. Continue to monitor with OCT rNFL and HVF 24-2 2. Posterior vitreous detachment, left eye No retinal breaks or tears on 360 degree scleral depression -Discussed signs/symptoms of retinal detachment and the patient knows to call/return if they occur -Return in 1 year for complete 3. Posterior vitreous detachment, right eye(s) Stable, monitor periodically 4. Cataract, both eyes Not visually significant -Monitor periodically 5. Amblyopia, left eye -stable 6. Disorder of refraction and accommodation -Give glasses Rx patient???s option to fill - polycarbonate lenses recommended I have reviewed the patient's past medical, family, social and surgical history. I have also reviewed the patient's medications, allergies, and problem list. I performed my own HPI and have reviewed the tech's ROS as well. I completed this exam personally. Spike Puentes MD I am scribing for Spike Puentes MD, while he is personally performing the service. JOZEF Caruso Patient Education Topic: Posterior vitreous detachment, glasses - polycarbonate, glaucoma suspect Method: Verbal Taught to: Patient Barriers: None Outcomes: independent Signature: Spike Puentes MD documented in this encounter Plan of Treatment Upcoming Encounters Date Type Department Care Team (Late st Contact Info) Description 10/04/2024 9:50 EST Appointment [facility] Pre-Surgical Testing [address] [place] [address] [phone] 10/14/2024 11:00 EST Hospital Encounter [facility] OR [address] [place] [address] [phone] Clemente Gerardo MD [address] [place] [phone] 10/14/2024 11:00 EST - 10/14/2024 14:35 EST Surgery [facility] OR [address] [place] [address] [phone] Clemente Gerardo MD [address] [place] [phone] Implantation of inflatable penile prosthesis [46051 (CPT??)] 10/17/2024 9:00 EST Telemedicine [facility] [phone] Nurse Call, [facility] Urology 10/31/2024 15:00 EST Post-op Visit [facility] [address] Clemente Gerardo MD [address] [place] [address], [address] [place] [phone] 12/06/2024 10:15 EST Office Visit [facility] Ophthalmology [address] [address] Spike Puentes MD [address] [place] [phone] Scheduled Orders Name Type Priority Associated Diagnoses Orde r Schedule VISUAL FIELD EXAM, EXTENDED Ophthalmology Routine Glaucoma Suspect, Bilateral Ordered: 03/02/2018 OCT (OPHTHALMIC DIGITAL IMAGING, POSTERIOR SEGMENT) Ophthalmology Routine Glaucoma Suspect, Bilateral Ordered: 03/02/2018 Scheduled Procedures Name Priority Associated Diagnoses Date/Ti me INSERTION, PENILE PROSTHESIS, INFLATABLE, 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 10/14/2024 11:00 EST documented as of this encounter Visit Diagnoses Diagnosis Glaucoma suspect, bilateral- Primary PVD (posterior vitreous detachment), left Posterior vitreous detachment of right eye Vitreous degeneration Senile nuclear sclerosis, right Senile nuclear sclerosis, left Amblyopia of eye, left Disorder of refraction and accommodation Unspecified disorder of refraction and accommodation Erectile dysfunction after radical prostatectomy documented in this encounter Eye Exam Visual Acuity (Snellen - Linear) Right eye Left eye Dist cc 20/20 20/200 Near cc J1+ Tonometry (Applanation, 14:36) Right eye Left eye Pressure 18 20 Pupils Pupils Dark APD Right eye PERRL 3 None Left eye PERRL 3 None Visual Lovett (Counting fingers) Right eye Left eye Full Full Neuro/Psych Oriented x3: Yes Mood/Affect: Normal Dilation Both eyes: 1.0% Mydriacyl, 2 .5% Phenylephrine @ 14:38 Slit Lamp Exam Right eye Left eye [...] Left eye Disc Normal Normal C/D Ratio 0.6 0.7 Macula trace Epiretinal membrane Normal Vessels Normal Normal Periphery Normal Normal Wearing Rx Sphere Cylinder Adkins Add Right eye -1.00 +1.25 030 +3.00 Left eye -1.25 +1.25 161 +3.00 Age: 5yrs Type: Bifocal Manifest Refraction Sphere Cylinder Adkins Dist VA Add Near VA Right eye -0.75 +1.25 030 20/20 +3.00 J1+ Left eye -1.75 +1.25 160 20/150-1 +3.00 Final Rx Sphere Cylinder Adkins Add Right eye +0.75 +1.25 030 +1.50 Left eye -0.25 +1.25 160 +1.50 Type: Computer Expiration Date: 04/12/2020 Comments: Polycarbonate Care Teams Property Claims Adjuster Relationship Specialty Start Date End Date Vel Santos MD PCP - General 10/30/11 03/09/23 documented as of this encounter
--- OUTSIDE RECORDS SUMMARY | 2024-07-19 22:14 | XMS_ITS | Encounter Summary ---
Author Organization [facility] Address [address] [place] [address] Care Team Providers Care Curriculum Consultant Name Role Phone Vel Santos MD Primary Care Provider Unava ilable Encounter Details Date Type Department Care Team (Late st Contact Info) Description 04/05/2018 Historical Results Only [facility] Radiology Results [address] [place] [address] Deny Shane MD [address] [place] [phone] Social History Tobacco Use Types [...] Info) Description 10/04/2024 9:50 EST Appointment [facility] [address] [place] [address] [phone] 10/14/2024 11:00 EST Hospital Encounter [facility] OR [address] [place] [address] [phone] Clemente Gerardo MD [address] [place] [phone] 10/14/2024 11:00 EST - 10/14/2024 14:35 EST Surgery [facility] OR [address] [place] [address] [phone] Clemente Gerardo MD [address] [place] [address] [phone] Implantation of inflatable penile prosthesis [01376 (CPT??)] 10/17/2024 9:00 EST Telemedicine [facility] Urology [address] [phone] Nurse Call, [facility] Urology 10/31/2024 15:00 EST Post-op Visit [address] [phone] Clemente Gerardo MD [address] [place] [phone] 12/06/2024 10:15 EST Office Visit [facility] Ophthalmology [facility] [address] [place] [address] Spike Puentes MD [address] [place] [phone] Scheduled Procedures Name Priority Associated Diagnoses Date/Ti me INSERTION, PENILE PROSTHESIS, INFLATABLE, 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 10/14/2024 11:00 EST documented as of this encounter Procedures Procedure Name Priority Date/Time Associated Diagnosis Comments XR CHEST 2 VIEWS 04/05/2018 21:0 2 EDT COMPLETE BLOOD COUNT WITH DIFFERENTIAL (AUTO) Routine 04/05/2018 20:23 EDT TROPONIN I Routine 04/05/2018 20:23 EDT C REACTIVE PROTEIN Routine 04/05/2018 20 :23 EDT MAGNESIUM Routine 04/05/2018 20:23 EDT COMPREHENSIVE METABOLIC PANEL (CMP) Routine 04/05/2018 20:23 EDT documented in this encounter Results * XR CHEST 2 VIEWS (04/05/2018 21:02 EDT) Anatomical Region Laterality Modality Other 04/05/2018 21:0 2 EDT Narrative 04/05/2018 21:02 EDT ? EXAM: RADIOLOGY/CHEST (PA ?? LAT) ?EX. D/ (2054) ? CLINICAL INFORMATION: ? CHEST PAIN ? EXAM: ? XR Chest, 2 Views ? CLINICAL HISTORY: ? 68 years old, male; Pain; Chest pain; Type not specified ? TECHNIQUE: ? Frontal and lateral views of the chest. ? COMPARISON: ? CR - ([id number], CHEST, CHEST PA) 2017-01-21 12:15 ? FINDINGS: ? Mild cardiomegaly. Increased lung volumes just COPD. ? No active process otherwise seen. ? REPORT SIGNED IN OTHER VENDOR SYSTEM 04/05/2018 ?Reported By: Ernst Cooley MD ? CC: Deny Shane MD ? Transcribed Date/Time: 04/05/2018 (2101) ? Air Traffic Systems Technician: ? Printed Date/Time: 04/22/2019 (3900) ? PAGE 1 ? Signed Report ? Procedure Note Ernst Cooley A - 09/07/2019 EXAM: RADIOLOGY/CHEST (PA LAT) EX. D/ (2054) CLINICAL INFORMATION: CHEST PAIN EXAM: XR Chest, 2 Views CLINICAL HISTORY: 68 years old, male; Pain; Chest pain; Type not specified TECHNIQUE: Frontal and lateral views of the chest. COMPARISON: CR - ([id number], CHEST, CHEST PA) 2017-01-21 12:15 FINDINGS: Mild cardiomegaly. Increased lung volumes just COPD. No active process otherwise seen. REPORT SIGNED IN OTHER VENDOR SYSTEM 04/05/2018 Reported By: Ernst Cooley MD CC: Deny Shane MD Transcribed Date/Time: 04/05/2018 (2101) Air Traffic Systems Technician: Printed Date/Time: 04/22/2019 (1548) PAGE 1 Signed Report Deny Shane MD IMG DIAGNOSTIC I MAGING ORDERABLES * MAGNESIUM (04/05/2018 20:23 EDT) Magnesium 1.80 1.7 - 2.8 mg/dL 04/05/2018 20:43 EDT [facility] 04/05/2018 20:2 3 EDT 04/05/2018 20:28 EDT Narrative [facility] - 04/05/2018 21:33 EDT Does PT Have a Latex Allergy? NO AOT: 06/04/18 2046: CRP Deny Shane MD CHEMISTRY & BLOO D GAS ORDERABLES [facility] * C REACTIVE PROTEIN (04/05/2018 20:23 EDT) [facility] C-Reactive Protein <5.0 <10.0 mg/L 04/05/2018 21:33 EDT [facility] 04/05/2018 20:2 3 EDT 04/05/2018 20:28 EDT Narrative [facility] - 04/05/2018 21:33 EDT Does PT Have a Latex Allergy? NO AOT: 04/05/186: CRP Deny Shane MD CHEMISTRY & BLOO D GAS ORDERABLES Performing Organization Address City/[facility]/ZIP Co de Phone Number [facility] * (ABNORMAL) COMPREHENSIVE METABOLIC PANEL (CMP) (04/05/2018 20:23 EDT) [facility] Albumin % 4.2 3.4 - 4.9 g/dL 04/05/2018 20:43 [facility] ALKALINE PHOSPHATASE - [facility] 82 38 - 126 U/L 04/05/2018 20:43 [facility] BILIRUBIN TOTAL 0.4 0.2 - 1.3 mg/dL 04/05/2018 20:43 [facility] BUN - [facility] 12 10 - 26 mg/dL 04/05/2018 20:43 [facility] CALCIUM - [facility] 9.4 8.5 - 10.5 mg/dL 04/05/2018 20:43 [facility] Chloride 103 96 - 110 mmol/L 04/05/2018 20:43 [facility] CO2 Total 22 21 - 32 mEq/L 04/05/2018 20:43 [facility] CREATININE 0.89 0.66 - 1.25 mg/dL 04/05/2018 20:43 [facility] eGFR >60 04/05/2018 20:43 EDT [facility] Comment: Chronic renal impairment is defined as GFR <60 Multiply result by 1.210 for patients. Anion Gap 14 0 - 18 04/05/2018 20:43 EDT [facility] GLUCOSE - [facility] 118(H) 70 - 100 mg/dL 04/05/2018 20:43 EDT [facility] Potassium 4.1 3.5 - 5.0 mEq/L 04/05/2018 20:43 EDT [facility] Sodium 139 136 - 145 mEq/L 04/05/2018 20:43 EDT [facility] TOTAL PROTEIN - [facility] 7.7 6.2 - 8.2 gm/dL 04/05/2018 20:43 EDT [facility] SGOT/AST - [facility] 72(H) 17 - 59 U/L 04/05/2018 20:43 EDT [facility] SGPT/ALT - [facility] 112(H) 21 - 72 U/L 04/05/2018 20:43 EDT [facility] 04/05/2018 20:2 3 EDT 04/05/2018 20:28 EDT Narrative [facility] - 04/05/2018 21:33 EDT Does PT Have a Latex Allergy? NO AOT: 04/05/18 2046: CRP Deny Shane MD CHEMISTRY & BLOO D GAS ORDERABLES [facility] * TROPONIN I (04/05/2018 20:23 EDT) Troponin I (ng/mL) <0.012 0.000 - 0.034 ng/mL 04/05/2018 20:55 EDT [facility] Comment: Interpretation comments: ??Cutoff for a positive troponin result is set at the 99th percentile of the upper reference limit. ??Elevated troponin must always be interpreted in the context of the clinical presentation. ?Serial troponin testing 3-6 hr from baseline is favored over relying on a single troponin level. 04/05/2018 20:2 3 EDT 04/05/2018 20:28 EDT Narrative [facility] - 04/05/2018 20:55 EDT Does PT Have a Latex Allergy? NO Deny Shane MD CHEMISTRY & BLOO D GAS ORDERABLES [facility] * COMPLETE BLOOD COUNT WITH DIFFERENTIAL (AUTO) (04/05/2018 20:23 EDT) ABSOLUTE NEUTROPHIL COUN - [facility] 3.16 1.7 - 7.0 10e3/ul 04/05/2018 20:34 EDT [facility] BASO # - [facility] 0.02 0.0 - 0.3 10e3/uL 04/05/2018 [facility] - [facility] 0 0 - 2 % 04/05/2018 [facility] EOS # - [facility] 0.10 0.05 - 0.5 10e3/uL 04/05/2018 20[facility] EOS % - [facility] 2 0 - 5 % 04/05/2018 20:34 EDT [facility] GRAN % - [facility] 56 40 - 80 % 04/05/2018 20:34 [facility] HEMATOCRIT - [facility] 46.3 36.0 - 52.0 % 04/05/2018 20[facility] HEMOGLOBIN - [facility] 15.4 13.7 - 17.5 g/dl 04/05/2018 20:34 EDT [facility] IG# - [facility] 0.02 0 - 0.07 10e3/uL 04/05/2018 20:34 EDT [facility] IG% - [facility] 0.4 0 - 0.9 % 04/05/2018 20:34 [facility] LYMPH # - [facility] 1.88 0.9 - 2.9 10e3/uL 04/05/2018 20:34 [facility] LYMPH% - [facility] 33 20 - 40 % 04/05/2018 20[facility] MEAN CORPUSCULAR HGB - [facility] 31.1 26 - 34 pg 04/05/2018 20:34 [facility] MEAN CORPUSCULAR HGB CONC - [facility] 33.3 31 - 36 g/dL 04/05/2018 20:34 [facility] MEAN CELL VOLUME - [facility] 93.5 77 - 100 fl 04/05/2018 20:34 [facility] MONO # - [facility] 0.47 0.3 - 0.9 10e3/uL 04/05/2018 20:34 [facility] MONO% - [facility] 8 0 - 12 % 04/05/2018 20:34 [facility] PLATELET COUNT 170 150 - 400 10e3/ul 04/05/2018 20:34 [facility] RED BLOOD COUNT - [facility] 4.95 4.3 - 5.7 10e6/ul 04/05/2018 20:34 [facility] RED CELL DISTRI WIDTH - [facility] 12.8 11.8 - 15.6 % 04/05/2018 20:34 [facility] WHITE BLOOD COUNT - [facility] 5.7 3.5 - 10.5 10e3/ul 04/05/2018 20:34 [facility] 04/05/2018 20:2 3 EDT 04/05/2018 20:28 EDT Narrative [facility] - 04/05/2018 20:34 EDT Does PT Have a Latex Allergy? NO Deny Shane MD HEMATOLOGY & PF4 ORDERABLES [facility] documented in this encounter Visit Diagnoses Not on filedocumented in this encounter Care Teams Curriculum Consultant Relationship Specialty Start Date End Date Vel Santos MD PCP - General 10/30/11 03/09/23 documented as of this encounter
--- OUTSIDE RECORDS SUMMARY | 2024-07-19 22:15 | XMS_ITS | Encounter Summary ---
Author Organization [facility] Address [address] [place] [address] Care Team Providers Care Senior Training Specialist Name Role Phone Vel Santos MD Primary Care Provider Marco Cowart MD Primary Care Provider [phone] Marco Aleman MD Primary Care Provider [phone] Encounter Details Date Type Department Care Team (Late st Contact Info) Description 01/29/2017 Historical Results Only [facility] [address] [place] [address] Unknown, Provider, Social History Tobacco Use Types Packs/Day Years [...] visiting a doctor's office or shopping? No 07/25/2016 documented as of this encounter Plan of Treatment Upcoming Encounters Date Type Department Care Team (Late st Contact Info) Description 10/04/2024 9:50 EST Appointment [facility] [place] [facility] Pre-Surgical Testing [address] [place] [address] [phone] 10/14/2024 11:00 EST Hospital Encounter [facility] OR [address] [place] [address] [phone] Clemente Gerardo MD [address] [place] [address] [phone] 10/14/2024 11:00 EST - 10/14/2024 14:35 EST Surgery [facility] OR [address] [place] [address] [phone] Clemente Gerardo MD [address] [place] [address] [phone] Implantation of inflatable penile prosthesis [33105 (CPT??)] 10/17/2024 9:00 EST Telemedicine [facility] Urology [address] [phone] Nurse Call, [facility] Urology 10/31/2024 15:00 EST Post-op Visit [facility]rolog[address] [phone] Clemente Gerardo MD [address] [place] [address] [phone] 12/06/2024 10:15 EST Office Visit [facility] Ophthalmology [address] [phone] Spike Puentes MD [address] [place] [address] [phone] Scheduled Procedures Name Priority Associated Diagnoses Date/Ti me INSERTION, PENILE PROSTHESIS, INFLATABLE, 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 10/14/2024 11:00 EST documented as of this encounter Procedures Procedure Name Priority Date/Time Associated Diagnosis Comments TRANSTHORACIC ECHO (TTE) COMPLETE 01/29/2017 8:27 EDT documented in this encounter Results * TRANSTHORACIC ECHO (TTE) COMPLETE (01/29/2017 8:27 EDT) Anatomical Region Laterality Modality Ultrasound 01/29/2017 8:27 EDT Narrative 01/29/2017 8:27 EDT ?[facility] [address] [place] [id number] ? [id number] ? E C H O C A R D I O G R A M ? R E P O R T NAME: GLORIA GARCIA ?: 52 ? LOCATION: CARD ? TELEPHONE: [phone] ?MR#: [id number] ? *[facility]* *[facility]* [address] [place] [address] Date of study: 01/29/2017 Transthoracic Echocardiography M-mode, complete 2D, complete spectral Doppler, and color Doppler *STUDY CONCLUSIONS* Summary: 1. Study data: Comparison was made to the study of November 2010. EF 74%. ?? 2+ MR. PAP 32 mmHg. 2. Left ventricle: The cavity size was normal. Wall thickness was ?? increased in a pattern of moderate LVH. Systolic function was normal. ?? The estimated ejection fraction was 60-65%. There was an increased ?? relative contribution of atrial contraction to ventricular filling. ?? Findings consistent with diastolic dysfunction. Doppler parameters ?? are consistent with high ventricular filling pressure. 3. Mitral valve: Mildly calcified annulus. Mildly thickened, mildly ?? calcified leaflets. 4. Right ventricle: The cavity size was mildly dilated. Systolic ?? function was mildly reduced. 5. Atrial septum: No defect or patent foramen ovale was identified. 6. Pulmonary arteries: Systolic pressure could not be accurately ?? estimated. 7. Inferior vena cava: The vessel was normal in size. The respirophasic ?? diameter changes were in the normal range (greater than or equal to ?? 50%), consistent with normal central venous pressure. *PATIENT PRESENTATION* Height: ? 180.3cm ((71in) ) S/D Pressure: 131 / 74 Weight: ? 129.3kg ((284.4lb) ) BSA: ?2.6m S 2 Test start time: ??08:27 AM. Test stop time: ??08:53 AM. REFERRING ?Hussain Shane FACILITIES ENGINEERING MANAGER ??Batool Oliver PERFORMING ?? [facility] [place] ? Hussain Shane ?[address] [place], [place] [address] ? [id number] ? E C H O C A R D I O G R A M ? R E P O R T NAME: GLORIA GARCIA ?: 52 ? LOCATION: CARD ? TELEPHONE: [phone] ?MR#: [id number] ? *PROCEDURE DATA* Procedure information: ??This study was interpreted by [facility]. Pertinent images and digital data are archived for permanent storage and are available for subsequent review. Comparison was made to the study of November 2010. ??Study status: ??Routine. Transthoracic echocardiography. M-mode, complete 2D, complete spectral Doppler, and color Doppler. A Transthoracic Echocardiogram was performed. Scanning was performed from the parasternal, apical, subcostal, and suprasternal notch acoustic windows. Images were obtained using a [facility] IE33 1 cardiac ultrasound machine. Image quality was adequate. ??Study completion: ??The patient tolerated the procedure well. *INDICATIONS AND HISTORY* Indications: ??ALY *CARDIAC ANATOMY* Left ventricle: ??The cavity size was normal. Wall thickness was increased in a pattern of moderate LVH. Systolic function was normal. The estimated ejection fraction was 60-65%. There was an increased relative contribution of atrial contraction to ventricular filling. The deceleration time of the early transmitral flow velocity was increased. The tissue Doppler parameters were abnormal. Findings consistent with diastolic dysfunction. Doppler parameters are consistent with high ventricular filling pressure. Aortic valve: ?? Doppler: ?? There was no stenosis. ?? There was no regurgitation. Aorta: ??Aortic root: The aortic root was normal in size. Ascending aorta: The ascending aorta was mildly dilated. Mitral valve: ?? Mildly calcified annulus. Mildly thickened, mildly calcified leaflets. ??Doppler: ?? There was no evidence for stenosis. There was no significant regurgitation. Left atrium: ??The atrium was normal in size. Atrial septum: ??No defect or patent foramen ovale was identified. Right ventricle: ??The cavity size was mildly dilated. Systolic function was mildly reduced. Pulmonic valve: ?Doppler: ??Transvalvular velocity was within the normal range. There was no evidence for stenosis. There was no regurgitation. Tricuspid valve: ?? Doppler: ??There was no significant regurgitation. Pulmonary artery: ?? Poorly visualized. ??Systolic pressure could not be accurately estimated. Right atrium: ??Poorly visualized. Pericardium: ??There was no pericardial effusion. Systemic veins: ?[facility] [address] [place], [place] [address] ? [id number] ? E C H O C A R D I O G R A M ? R E P O R T NAME: GLORIA GARCIA ?: 52 ? LOCATION: CARD ? TELEPHONE: [phone] ?MR#: [id number] ? Inferior vena cava: The vessel was normal in size. The respirophasic diameter changes were in the normal range (greater than or equal to 50%), consistent with normal central venous pressure. Baseline ECG: ?? Normal sinus rhythm. Measurements Left ventricle ? Value ?Reference LV end-diastolic volume, 1-p A2C ? 32 ?ml ? LV ejection fraction, 1-p A2C ?54 ?% ? LV end-diastolic volume, 1-p A4C ? 27 ?ml ? LV ejection fraction, 1-p A4C ?56 ?% ? LV IVRT, DP ?92 ?ms ? 60 - 100 LV e', lateral ? 0.058 m/sec ?? LV E/e', lateral ? 12 ? LV e', medial ?0.05 ??m/sec ?? LV E/e', medial ?14 ? LV e', average ? 0.054 m/sec ?? LV E/e', average ? 13 ? Ventricular septum ? Value ?Reference IVS thickness, ED, PLAX ?1.3 ?? cm ? Aorta ?Value ?Reference Aortic root ID ? 3.6 ?? cm ? Ascending aorta ID, A-P ?3.7 ?? cm ? Ascending aorta ID, A-P, S ? 3.7 ?? cm ? Left atrium ?Value ?Reference LA ID, A-P, ES ? 5.3 ?? cm ? LA ID/bsa, A-P ? 2.0 ?? cm/m S 2 <=2.2 LA area, ES, A4C ? 21.8 ??cm S 2 ?? 8.8 - 23.4 LA area, ES, A2C ? 25 ?cm S 2 ?? LA volume, ES, 2-p ? 70 ?ml ? LA volume/bsa, ES, 2-p ? 27 ?ml/m S 2 LA/aortic root ratio ? 1.47 ? Mitral valve ? Value ?Reference Mitral E-wave peak velocity ?0.7 ?? m/sec ?? Mitral A-wave peak velocity ?1.19 ??m/sec ?? Mitral deceleration time ? (H) ? 257 ?? ms ? 150 - 230 Mitral E/A ratio, peak ? 0.6 ? Legend: (L) ??and ??(H) ??adrian values outside specified reference range. I have personally reviewed the images and have reviewed and edited the reported findings. Electronically signed by Ernst Kim MD ?[facility] [address] [place] [address] ? [id number] ? E C H O C A R D I O G R A M ? R E P O R T NAME: GLORIA GARCIA ?: 52 ? LOCATION: CARD ? TELEPHONE: [phone] ?MR#: [id number] ? 01/29/2017 12:22 Procedure Note Ernst Kim - 08/21/2019 [address] [place], [place] [id number] E C H O C A R D I O G R A M R E P O R T NAME: GLORIA GARCIA : 52LOCATION: CARD TELEPHONE: [phone] MR#: [id number] *[facility]* *[facility]* [address] [place] [address] Date of study: 01/29/2017 Transthoracic Echocardiography M-mode, complete 2D, complete spectral Doppler, and color Doppler *STUDY CONCLUSIONS* Summary: 1. Study data: Comparison was made [...] 50%), consistent with normal central venous pressure. *PATIENT PRESENTATION* Height: 180.3cm ((71in) ) S/D Pressure: 131 / 74 Weight: 129.3kg ((284.4lb) ) BSA: 2.6m S 2 Test start time: 08:27 AM. Test stop time: 08:53 AM. REFERRING Hussain Shane FACILITIES ENGINEERING MANAGER Batool Oliver PERFORMING [employer] ORDERING Hussain Shane [address] [place] [id number] E C H O C A R D I O G R A M R E P O R T NAME: GLORIA GARCIA : 52LOCATION: CARD TELEPHONE: [phone] MR#: [id number] [facility]#:[id number] *PROCEDURE DATA* Procedure information: This study was interpreted by [facility]. Pertinent images and digital data are archived for permanent storage and are available for subsequent review. Comparison was made to the study of November 2010. Study status: Routine. Transthoracic echocardiography. M-mode, complete 2D, complete spectral Doppler, and color Doppler. A Transthoracic Echocardiogram was performed. Scanning was performed from the parasternal, apical, subcostal, and suprasternal notch acoustic windows. Images were obtained using a [facility] IE33 1 cardiac ultrasound machine. Image quality was adequate. Study completion: The patient tolerated the procedure well. *INDICATIONS AND HISTORY* Indications: ALY *CARDIAC ANATOMY* Left ventricle: The cavity size was normal. Wall thickness was increased in a pattern of moderate LVH. Systolic function was normal. The estimated ejection fraction was 60-65%. There was an increased relative contribution of atrial contraction to ventricular filling. The deceleration time of the early transmitral flow velocity was increased. The tissue Doppler parameters were abnormal. Findings consistent with diastolic dysfunction. Doppler parameters are consistent with high ventricular filling pressure. Aortic valve: Doppler: There was no stenosis. There was no regurgitation. Aorta: Aortic root: The aortic root was normal in size. Ascending aorta: The ascending aorta was mildly dilated. Mitral valve: Mildly calcified annulus. Mildly thickened, mildly calcified leaflets. Doppler: There was no evidence for stenosis. There was no significant regurgitation. Left atrium: The atrium was normal in size. Atrial septum: No defect or patent foramen ovale was identified. Right ventricle: The cavity size was mildly dilated. Systolic function was mildly reduced. Pulmonic valve: Doppler: Transvalvular velocity was within the normal range. There was no evidence for stenosis. There was no regurgitation. Tricuspid valve: Doppler: There was no significant regurgitation. Pulmonary artery: Poorly visualized. Systolic pressure could not be accurately estimated. Right atrium: Poorly visualized. Pericardium: There was no pericardial effusion. Systemic veins: [address] [place], [place] [address] [id number] E C H O C A R D I O G R A M R E P O R T NAME: GLORIA GARCIA : 52LOCATION: CARD TELEPHONE: [phone] MR#: [id number] [id number] Inferior vena cava: The vessel was normal in size. The respirophasic diameter changes were in the normal range (greater than or equal to 50%), consistent with normal central venous pressure. Baseline ECG: Normal sinus rhythm. Measurements Left ventricle Value Reference LV end-diastolic volume, 1-p A2C 32 ml LV ejection fraction, 1-p A2C 54 % LV end-diastolic volume, 1-p A4C 27 ml LV ejection fraction, 1-p A4C 56 % LV IVRT, DP 92 ms 60 - 100 LV e', lateral 0.058 m/sec LV E/e', lateral 12 LV e', medial 0.05 m/sec LV E/e', medial 14 LV e', average 0.054 m/sec LV E/e', average 13 Ventricular septum Value Reference IVS thickness, ED, PLAX 1.3 cm Aorta Value Reference Aortic root ID 3.6 cm Ascending aorta ID, A-P 3.7 cm Ascending aorta ID, A-P, S 3.7 cm Left atrium Value Reference LA ID, A-P, ES 5.3 cm LA ID/bsa, A-P 2.0 cm/m S 2 <=2.2 LA area, ES, A4C 21.8 cm S 2 8.8 - 23.4 LA area, ES, A2C 25 cm S 2 LA volume, ES, 2-p 70 ml LA volume/bsa, ES, 2-p 27 ml/m S 2 LA/aortic root ratio 1.47 Mitral valve Value Reference Mitral E-wave peak velocity 0.7 m/sec Mitral A-wave peak velocity 1.19 m/sec Mitral deceleration time (H) 257 ms 150 - 230 Mitral E/A ratio, peak 0.6 Legend: (L) and (H) adrian values outside specified reference range. I have personally reviewed the images and have reviewed and edited the reported findings. Electronically signed by Ernst Kim MD [address] [place] [phone] [id number] E C H O C A R D I O G R A M R E P O R T NAME: GLORIA GARCIA : 52LOCATION: CARD TELEPHONE: [phone] MR#: [id number] 01/29/2017 12:22 Provider Unknown CARDIAC ECHO ORDERAB LES documented in this encounter Visit Diagnoses Not on filedocumented in this encounter Care Teams Senior Training Specialist Relationship Specialty Start Date End Date Vel Santos MD PCP - General 10/30/11 03/09/23 Marco Altamirano MD [address] [place] [address] [phone] PCP - General Family Medicine - Primary Care 03/10/23 09/13/23 Marco Aleman MD [address] [place] [address] [place] [address] [phone] PCP - General Emergency Medicine 12/07/23 documented as of this encounter
--- OUTSIDE RECORDS SUMMARY | 2024-07-19 22:15 | XMS_ITS | Encounter Summary ---
Author Organization [facility] Address [address] [place] [address] Care Team Providers Care Analysis Reporting Developer Name Role Phone Vel Santos MD Primary Care Provider Unava ilable Reason for Visit * Reason Comments Eye Flashes And/Or Floaters floaters 1 m onth ago right eye. Encounter Details Date Type Department Care Team (Late st Contact Info) Description 06/16/2016 14:15 EDT Office Visit [facility] Ophthalmology [facility] [address] [place] [address] Spike Puentes MD [address] [place] [phone] Social History Tobacco Use Types Packs/Day Years [...] Sign Reading Time Taken Comments Blood Pressure 138/86 06/16/2016 1435 EDT Pulse - - Temperature - - Respiratory Rate - - Oxygen Saturation - - Inhaled Oxygen Concentration - - Weight - - Height - - Body Mass Index - - documented in this encounter Functional Status Functional Status Response Date of Assess ment Because of a physical, menta l, or emotional condition, does this person have difficulty doing errands alone such as visiting a doctor's office or shopping? No 06/16/2016 documented as of this encounter Progress Notes * Spike Puentes MD - 06/16/2016 1521 EDT Chief Complaint Patient presents with ??? Eye Flashes And/Or Floaters floaters 1 month ago right eye. HPI The patient is a 66 y.o. male here for a problem of new floater in the right eye, has not seen any flashes of light. No pain, No double vision. Right Eye: Blurred Vision, Floaters Left Eye: Blurred Vision, Loss of Vision Visual Aid: Glasses Current Rx Age Location: Left eye Pain: 0 - No pain Quality: Blurry Severity: Severe Duration: Years Timing: Constant Lasts: Continuous Context: Patient notes about a month ago notice bright spots in vision. Has not noticed flashing lights. No pain but right eye has felt dry at times. Patient did see an animal ecologist and he recommendedfollow up vision. Modifying factors: Associated Signs & Symptoms: Attestation: ROS Constitutional: NL ENT/Mouth Hearing Loss Cardiovascular: High Blood Pressure, High Cholesterol Respiratory: NL Gastrointestinal: NL Genitourinary: NL Musculoskeletal: Integumentary: Skin Rash (excema) Neurologic: NL Psychiatric: Depression Endocrine: NL Hematologic: NL Immunologic: Drug Allergy, Food Allergy (allergic to swordfish) Cloth Dyeing Range Tender: Exposures: None Other: Attestation: Base Eye Exam Visual Acuity (Snellen - Linear) Right Left Dist cc 20/20 -1 20/400 Correction: Glasses Tonometry (Applanation, 14:48) Right Left Pressure 17 23 Pupils Pupils Light APD Right PERRL 3 None Left PERRL 3 None Extraocular Movement Right Left Result Full, Ortho Full, Ortho Neuro/Psych Oriented x3: Yes Mood/Affect: Normal Dilation Both eyes: 1.0% Mydriacyl, 2.5% Phenylephrine @ 14:50 Slit Lamp and Fundus Exam Slit Lamp Exam Right Left Lids/Lashes Normal Normal Conjunctiva/Sclera White and quiet White and quiet Cornea Clear Clear Anterior Chamber Deep and quiet Deep and quiet Iris Round and reactive Round and reactive Lens 1+ Nuclear sclerosis 1+ Nuclear sclerosis Fundus Exam Right Left Vitreous Olney's sign negative, Andrews ring Asteroid hyalosis Disc Normal Normal C/D Ratio 0.55 0.6 Macula Normal Normal Vessels Cotton wool spot along inferior arcade Normal Periphery Normal Normal DIAGNOSTIC TESTS: Indication: Cotton wool spot OCT macula: Right: signal strength: 08/10, normal foveal contour, no intra/subretinal fluid, inner retinal edema in area of cotton wool spot IMPRESSION & PLAN: 1. Posterior vitreous detachment, right eye No retinal breaks or tears on 360 degree scleral depression -Discussed signs/symptoms of retinal detachment and the patient knows to call/return if they occur -Return 1 month for repeat dilated exam 2. Cotton wool spot, right eye -OCT obtained -BP today is 138/86 -Patient currently on HTN medication; recently checked for diabetes -Will be having work-up of lyme disease -Recommend workup if there concern for other etiologies including carotid/cardiac emboli, leukemia,anemia, or any hypercoagulable state. 3. Glaucoma suspect -IOPs stable -Will recheck testing in 6 months 4. Cataract, both eyes Not visually significant -Monitor periodically 5. Amblyopia, left eye -No treatment -Advised button cutter glasses wear I have reviewed the patient's past medical, family, social and surgical history. I have also reviewed the patient's medications, allergies, and problem list. I performed my own HPI and have reviewed the tech's ROS as well. I completed this exam personally. Spike Puentes MD I am scribing for Spike Puentes MD, while he is personally performing the service. JOZEF Gomez Patient Education Topic: PVD Method: Verbal Taught to: Patient Barriers: None Outcomes: independent and verbalized understanding Signature: Spike Puentes MD documented in this encounter Plan of Treatment Upcoming Encounters Date Type Department Care Team (Late st Contact Info) Description 10/04/2024 9:50 EST Appointment [facility] Pre-Surgical Testing [address] [place] [address] 10/14/2024 11:00 EST Hospital Encounter [facility] OR [address] [place] [address] Clemente Gerardo MD [address] [facility], [address] [place] [phone] 10/14/2024 11:00 EST - 10/14/2024 14:35 EST Surgery [facility] OR [address] [place] [address] [phone] Clemente Gerardo MD [address] [place] [address] [address] [place] [phone] Implantation of inflatable penile prosthesis [07049 (CPT??)] 10/17/2024 9:00 EST Telemedicine [address] [phone] Nurse Call, [facility] 10/31/2024 15:00 EST Post-op Visit [address] [phone] Clemente Gerardo MD [address] [place] [address] [address] [place] [phone] 12/06/2024 10:15 EST Office Visit [facility] Ophthalmology [address] [address] Spike Puentes MD [address] [place] [address] [phone] Scheduled Procedures Name Priority Associated Diagnoses Date/Ti me INSERTION, PENILE PROSTHESIS, INFLATABLE, 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 10/14/2024 11:00 EST documented as of this encounter Visit Diagnoses Diagnosis Posterior vitreous detachment, right- Primary Cotton wool spots Retinal edema Glaucoma suspect, bilateral Nuclear cataract of both eyes Amblyopia of eye, left Erectile dysfunction after radical prostatectomy documented in this encounter Eye Exam Visual Acuity (Snellen - Linear) Right eye Left eye Dist cc 20/20 -1 20/400 Correction: Glasses Tonometry (Applanation, 14:48) Right eye Left eye Pressure 17 23 Pupils Pupils Light APD Right eye PERRL 3 None Left eye PERRL 3 None Extraocular Movement Right eye Left eye Full, Ortho Full, Ortho Neuro/Psych Oriented x3: Yes Mood/Affect: Normal Dilation Both eyes: 1.0% Mydriacyl, 2 .5% Phenylephrine @ 14:50 Slit Lamp Exam Right eye Left eye Lids/Lashes Normal Normal Conjunctiva/Sclera White and quiet White and sindi et Cornea Clear Clear Anterior Chamber Deep and quiet Deep and quiet Iris Round and reactive Round and sharmila ctive Lens 1+ Nuclear sclerosis 1+ Nuclear sclerosis Vitreous Olney's sign negative, Andrews ri ng Asteroid hyalosis Fundus Exam Right eye Left eye Disc Normal Normal C/D Ratio 0.55 0.6 Macula Normal Normal Vessels Cotton wool spot along inferior arcade Normal Periphery Normal Normal Care Teams Analysis Reporting Developer Relationship Specialty Start Date End Date Vel Santos MD PCP - General 10/30/11 03/09/23 documented as of this encounter
--- OUTSIDE RECORDS SUMMARY | 2024-07-19 22:15 | XMS_ITS | Encounter Summary ---
Author Organization [facility] Address [address] [place] [address] Care Team Providers Care Improvement Manager Name Role Phone Vel Santos MD Primary Care Provider Unava ilable Encounter Details Date Type Department Care Team (Late st Contact Info) Description 10/30/2015 Historical Results Only [facility] Radiology Results [address] [place] [address] Vel Santos MD Social History Tobacco Use Types Packs/Day Years Used Date Smoking Tobacco: Former Alcohol Use Standard Drinks/Week Comments Not Asked 0 (1 standard drink = 0.6 oz pur e alcohol) Sex and Gender Information Value Date Recorded Sex Assigned at Male 12/26/2021 11:38 EST Gender Identity Male 06/20/2020 15:19 EDT Sexual Orientation Straight 12/26/2021 11 :37 EST documented as of this encounter Plan of Treatment Upcoming Encounters Date Type Department Care Team (Late st Contact Info) Description 10/04/2024 9:50 EST Appointment [facility] Pre-Surgical Testing [address] [place] [address] [phone] 10/14/2024 11:00 EST Hospital Encounter [facility] OR [address] [place], [place] [phone] Clemente Gerardo MD [address] [facility], Level [address] [place] [phone] 10/14/2024 11:00 EST - 10/14/2024 14:35 EST Surgery [facility] OR [address] [place] [address] [phone] Clemente Gerardo MD [address] [place] [address] 5 [place] [phone] Implantation of inflatable penile prosthesis [40801 (CPT??)] 10/17/2024 9:00 EST Telemedicine [facility] Urolog[address] [phone] Nurse Call, [facility] Urology 10/31/2024 15:00 EST Post-op Visit [address] 119321 Clemente Gerardo MD [address] [place] [phone] 12/06/2024 10:15 EST Office Visit [address] [address] Spike Puentes MD [address] [place] [phone] Scheduled Procedures Name Priority Associated Diagnoses Date/Ti me INSERTION, PENILE PROSTHESIS, INFLATABLE, 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 10/14/2024 11:00 EST documented as of this encounter Visit Diagnoses Not on filedocumented in this encounter Care Teams Improvement Manager Relationship Specialty Start Date End Date Vel Santos MD PCP - General 10/30/11 03/09/23 documented as of this encounter
--- OUTSIDE RECORDS SUMMARY | 2024-07-19 22:15 | XMS_ITS | Encounter Summary ---
Author Organization [facility] Address [address] [place] [address] Care Team Providers Care Senior Accountant Analyst Name Role Phone Vel Santos MD Primary Care Provider Unava ilable Reason for Visit * Reason Onset Date Comments Advice Only 11/12/2016 Consult about po ssible traumatic contusion Encounter Details Date Type Department Care Team (Late st Contact Info) Description 11/12/2016 Telephone [facility] Neurosurgery - Main [place] [address] [place], [place] [phone] Asad Ritchie MD [facility] PRUDENTCLEMENTINE FONSECA [address] [phone] Advice Only (Consult about possible traumatic contusion) Social History Tobacco Use Types Packs/Day Years [...] No 07/25/2016 documented as of this encounter Miscellaneous Notes * Telephone Encounter - Asad Ritchie MD - 11/12/2016 5075 EST Called via PAS by PA in ED at [facility] re: possible right frontal traumatic intraparenchymal contusion.Patient presented to ED today s/p mechanical fall found to have rib fractures, during conversation with ED provider indicated that he feel two weeks ago and hit his head on a beam. He did not seek treatment at that time but did state that he was having headache, nausea and dizziness. These symptomshave since been resolving but a HCT was ordered since patient take a full dose ASA for prior ME. Per PA at [facility] he is neurologically intact on exam. HCT was read as hyperdenisty in left frontal lobe concerning for intraparenchymal contusion. Images reviewed by myself and senior neurosurgery resident- felt that the hyperdenisity is likely artifact given that the patient is two weeks out from closed head trauma (would not expect this hyperdense 2 weeks out), lack of any surrounding edema (common with IP contusion). Also, since the accident occurred two weeks ago even if this was blood products there would be no additional interventions or management needed at this point. This was conveyed to the PA. Asad Ritchie MD Neurosurgery resident 11/12/2016 13:27 Page 1106 with questions documented in this encounter Plan of Treatment Upcoming Encounters Date Type Department Care Team (Late st Contact Info) Description 10/04/2024 9:50 EST Appointment [facility] Pre-Surgical Testing [address] [place] [address] [phone] 10/14/2024 11:00 EST Hospital Encounter [facility] OR [address] [place] [address] [phone] Clemente Gerardo MD [address] [place] [address], [address] [place] [phone] 10/14/2024 11:00 EST - 10/14/2024 14:35 EST Surgery [facility] OR [address] [place] [address] [phone] Clemente Gerardo MD [address] [place] [address] 5 [place] [phone] Implantation of inflatable penile prosthesis [42813 (CPT??)] 10/17/2024 9:00 EST Telemedicine [facility] [address] [phone] Nurse Call, [facility] Urology 10/31/2024 15:00 EST Post-op Visit [address] [phone] Clemente Gerardo MD [address] [place] [phone] 12/06/2024 10:15 EST Office Visit [address] [address] Spike Puentes MD [address] [place] [phone] Scheduled Procedures Name Priority Associated Diagnoses Date/Ti me INSERTION, PENILE PROSTHESIS, INFLATABLE, 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 10/14/2024 11:00 EST documented as of this encounter Visit Diagnoses Not on filedocumented in this encounter Care Teams Senior Accountant Analyst Relationship Specialty Start Date End Date Vel Santos MD PCP - General 10/30/11 03/09/23 documented as of this encounter
--- OUTSIDE RECORDS SUMMARY | 2024-07-19 22:15 | XMS_ITS | Encounter Summary ---
Author Organization [facility] Address [address] [place] [address] Care Team Providers Care Hotel Service Manager Name Role Phone Vel Santos MD Primary Care Provider Unava ilable Encounter Details Date Type Department Care Team (Late st Contact Info) Description 07/03/2016 Historical Results Only [facility] - Main [address] [phone] Oliver Live MD Social History Tobacco Use Types Packs/Day [...] No 06/16/2016 documented as of this encounter Plan of Treatment Upcoming Encounters Date Type Department Care Team (Late st Contact Info) Description 10/04/2024 9:50 EST Appointment [facility] Pre-Surgical Testing [address] [place] [address] 10/14/2024 11:00 EST Hospital Encounter [facility] OR [address] [place], [place] [phone] Clemente Gerardo MD [address] [place] [phone] 10/14/2024 11:00 EST - 10/14/2024 14:35 EST Surgery [facility] OR [address] [place] [address] [phone] Clemente Gerardo MD [address] [place] [phone] Implantation of inflatable penile prosthesis [07984 (CPT??)] 10/17/2024 9:00 EST Telemedicine [address] [phone] Nurse Call, [facility] Urology 10/31/2024 15:00 EST Post-op Visit [address] [phone] Clemente Gerardo MD [address] [place] [address] [phone] 12/06/2024 10:15 EST Office Visit [facility] Ophthalmology [address] [address] Spike Puentes MD [address] [place] [phone] Scheduled Procedures Name Priority Associated Diagnoses Date/Ti me INSERTION, PENILE PROSTHESIS, INFLATABLE, 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 10/14/2024 11:00 EST documented as of this encounter Procedures Procedure Name Priority Date/Time Associated Diagnosis Comments SURGICAL PATHOLOGY Routine 07/03/2016 documented in this encounter Results * SURGICAL PATHOLOGY (07/03/2016) 07/03/2016 07/03/2016 11: 28 EDT Narrative [facility] - 07/04/2016 11:37 EDT ----- ------- Name: GLORIA GARCIA ?: 52 ?Age/Sex: 69/M ?Unit#: [id number] ? Loc: END ? Status: DEP CLI ?? Reg Date: 07/03/16 ? Pt.Phone Number: ? ----- ------- Specimen: [id number] ? STATUS: SOUT ?Spec Date:07/03/16 ? Physician Copies: ?Oliver Live MD ?? Tissues: A ?? Endoscopy specimen (ASCENDING) ? Vel Santos MD ? B ?? Endoscopy specimen (DESCENDING) ? CPT: 45530 ?? Units: ??2 ?FINAL DIAGNOSIS ? A. ASCENDING COLON, POLYP, BIOPSY; ? -Sessile serrated adenoma. ? B. DESCENDING COLON, POLYP, BIOPSY; ? -Tubular adenoma. ? GROSS DESCRIPTION ? A. ??Received in formalin labeled with the patient's name and Ascending colon ? polyp is a single mucosal tissue fragment measuring 0.5 cm. es 1 ? B. ??Received in formalin labeled with the patient's name and Descending colon ? polyp is a single mucosal tissue fragment measuring 0.6 cm. es 1 NM ?? PREOP DX/CLINICAL HISTORY ?Screening colonoscopy Signed ____(signature on file)____ Brenna Murillo M.D. 07/04/16 ? By the signature above, the attending physician certifies that he/she has personally conducted a gross and/or microscopic examination of the described specimens and rendered or confirmed the above diagnosis. Test Performed by [facility], [address] [place] [address] Pay Station Collector: Fransisca Ventura MD PHD ----- ------- Oliver Live MD PATHOLOGY ORDERABLES Performing Organization Address City/State/[facility] Co de Phone Number [facility] documented in this encounter Visit Diagnoses Not on filedocumented in this encounter Care Teams Hotel Service Manager Relationship Specialty Start Date End Date Vel Santos MD PCP - General 10/30/11 03/09/23 documented as of this encounter
--- OUTSIDE RECORDS SUMMARY | 2024-07-19 22:15 | XMS_ITS | Encounter Summary ---
Author Organization [facility] Address [address] [place] [address] Care Team Providers Care Palliative Care Coordinator Name Role Phone Vel Santos MD Primary Care Provider Unava ilable Encounter Details Date Type Department Care Team (Late st Contact Info) Description 10/07/2016 Historical Results Only [facility] - Main [address] [phone] Vel Santos MD Social History Tobacco Use [...] Appointment [facility] Pre-Surgical Testing [address] [place] [address] 10/14/2024 11:00 EST Hospital Encounter [facility] OR [address] [place], [place] 567161 Clemente Gerardo MD [address] [place] [phone] 10/14/2024 11:00 EST - 10/14/2024 14:35 EST Surgery [facility] OR [address] [place] [address] [phone] Clemente Gerardo MD [address] [place] [phone] Implantation of inflatable penile prosthesis [90007 (CPT??)] 10/17/2024 9:00 EST Telemedicine [address] [phone] Nurse Call, [facility] Urology 10/31/2024 15:00 EST Post-op Visit [address] 115111 Clemente Gerardo MD [address] [place] [address] [phone] 12/06/2024 10:15 EST Office Visit [facility] Ophthalmology [address] [address] Spike Puentes MD [address] [place] [phone] Scheduled Procedures Name Priority Associated Diagnoses Date/Ti me INSERTION, PENILE PROSTHESIS, INFLATABLE, 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 10/14/2024 11:00 EST documented as of this encounter Procedures Procedure Name Priority Date/Time Associated Diagnosis Comments URIC ACID Routine 10/07/2016 12:01 EST documented in this encounter Results * URIC ACID (10/07/2016 12:01 EST) URIC ACID - [facility] 6.1 2.6 - 7.2 mg/dl 10/07/2016 16:50 EST [facility] 10/07/2016 12:0 1 EST 10/07/2016 16:14 EST Vel Santos MD CHEMISTRY & BLOOD GA S ORDERABLES [facility] documented in this encounter Visit Diagnoses Not on filedocumented in this encounter Care Teams Palliative Care Coordinator Relationship Specialty Start Date End Date Vel Santos MD PCP - General 10/30/11 03/09/23 documented as of this encounter
--- OUTSIDE RECORDS SUMMARY | 2024-07-19 22:15 | XMS_ITS | Encounter Summary ---
Author Organization [facility] Address [address] [place] [address] Care Team Providers Care Recording Artist Name Role Phone Vel Santos MD Primary Care Provider Unava ilable Encounter Details Date Type Department Care Team (Late st Contact Info) Description 12/08/2016 Historical Results Only [facility] Radiology Results [address] [place], [place] [phone] Kwesi Lott MD 13[address] [facility] [address] [place] [phone] Social History Tobacco Use Types Packs/Day [...] 9:50 EST Appointment [facility] Main [place] Pre-Surgical Testing [address] [place] [address] 10/14/2024 11:00 EST Hospital Encounter [facility] OR [address] [place] [address] [phone] Clemente Gerardo MD [address] [place] [phone] 10/14/2024 11:00 EST - 10/14/2024 14:35 EST Surgery [facility] OR [address] [place] [address] [phone] Clemente Gerardo MD [address] [place] [address] [phone] Implantation of inflatable penile prosthesis [16739 (CPT??)] 10/17/2024 9:00 EST Telemedicine [facility] Urology [address] [phone] Nurse Call, [facility] Urology 10/31/2024 15:00 EST Post-op Visit [address] [phone] Clemente Gerardo MD [address] [place] [phone] 12/06/2024 10:15 EST Office Visit [facility] Ophthalmology [address] [address] Spike Puentes MD [address] [place] [phone] Scheduled Procedures Name Priority Associated Diagnoses Date/Ti me INSERTION, PENILE PROSTHESIS, INFLATABLE, 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 10/14/2024 11:00 EST documented as of this encounter Procedures Procedure Name Priority Date/Time Associated Diagnosis Comments XR KNEE LEFT 4 OR MORE VIEWS 12/08/2016 14:17 EST documented in this encounter Results * XR KNEE LEFT 4 OR MORE VIEWS (12/08/2016 14:17 EST) Anatomical Region Laterality Modality Lower Extremities Left Other 12/08/2016 14:1 7 EST Narrative 12/08/2016 14:22 EST ? EXAM: RADIOLOGY/KNEE LT ARTHRITIS SERIES ??EX. D/ (1324) ? CLINICAL INFORMATION: ? LEFT KNEE PAIN XR DONE AT [facility] ? -M25.562 ? KNEE LT ARTHRITIS SERIES 4V ? Signs and Symptoms/Comments: ??LEFT KNEE PAIN XR DONE AT [facility]: ? -M25.562 ? Comparison: None ? Findings: ? Right Knee: A single standing PA flexion view was performed. No acute ? fracture or malalignment is visible on the single view provided. No ? significant degenerative changes are present. The absence of a ? lateral view precludes complete evaluation for joint effusion. ? Left Knee: Standing AP, PA flexion, lateral and sunrise views were ? performed. No acute fracture or malalignment is identified. Mild ? tricompartmental degenerative changes are present as evidenced by ? mild joint space narrowing, early osteophytosis and mild subchondral ? sclerosis. Degenerative changes are slightly more prominent in the ? patellofemoral compartment. Mild spurring is present at the tibial ? spines. A small suprapatellar joint effusion is present. ? IMPRESSION: ? 1. ??Mild left knee tricompartmental osteoarthrosis. ? 2. ??Small left knee joint effusion. ? REPORT SIGNED IN OTHER VENDOR SYSTEM 12/08/2016 ?Reported By: Tito Abad MD ? CC: ? Transcribed Date/Time: 12/08/2016 (1422) ? Cell Reliner: ? Printed Date/Time: 04/16/2019 (6837) ? PAGE 1 ? Signed Report ? Procedure Note Tito Abad MD - 09/07/2019 EXAM: RADIOLOGY/KNEE LT ARTHRITIS SERIES EX. D/ (1324) CLINICAL INFORMATION: LEFT KNEE PAIN XR DONE AT [facility] -M25.562 KNEE LT ARTHRITIS SERIES 4V Signs and Symptoms/Comments: LEFT KNEE PAIN XR DONE AT [facility]: -M25.562 Comparison: None Findings: Right Knee: A single standing PA flexion view was performed. Noacute fracture or malalignment is visible on the single view provided. No significant degenerative changes are present. The absence of a lateral view precludes complete evaluation for joint effusion. Left Knee: Standing AP, PA flexion, lateral and sunrise views were performed. No acute fracture or malalignment is identified. Mild tricompartmental degenerative changes are present as evidenced by mild joint space narrowing, early osteophytosis and mildsubchondral sclerosis. Degenerative changes are slightly more prominent in the patellofemoral compartment. Mild spurring is present at the tibial spines. A small suprapatellar joint effusion is present. IMPRESSION: 1. Mild left knee tricompartmental osteoarthrosis. 2. Small left knee joint effusion. REPORT SIGNED IN OTHER VENDOR SYSTEM 12/08/2016 Reported By: Tito Abad MD CC: Transcribed Date/Time: 12/08/2016 (1422) Cell Reliner: Printed Date/Time: 04/16/2019 (6514) PAGE 1 Signed Report Kwesi Lott MD IMG DIAGNOSTIC I MAGING ORDERABLES documented in this encounter Visit Diagnoses Not on filedocumented in this encounter Care Teams Recording Artist Relationship Specialty Start Date End Date Vel Santos MD PCP - General 10/30/11 03/09/23 documented as of this encounter
--- OUTSIDE RECORDS SUMMARY | 2024-07-19 22:15 | XMS_ITS | Encounter Summary ---
Author Organization [facility] Address [address] [place] [address] Care Team Providers Care Loop Drier Operator Name Role Phone Vel Santos MD Primary Care Provider Unava ilable Encounter Details Date Type Department Care Team (Late st Contact Info) Description 11/12/2016 Historical Results Only [facility] Radiology Results [address] [place], [place] [phone] Joe Joel MD Social History Tobacco Use Types Packs/Day [...] [facility] Pre-Surgical Testing [address] [place] [address] 10/14/2024 11:00 EST Hospital Encounter [facility] OR [address] [place], [place] [phone] Clemente Gerardo MD [address] [place] [address] [phone] 10/14/2024 11:00 EST - 10/14/2024 14:35 EST Surgery [facility] OR [address] [place] [address] [phone] Clemente Gerardo MD [address] [place] [address] [phone] Implantation of inflatable penile prosthesis [55932 (CPT??)] 10/17/2024 9:00 EST Telemedicine [address] [phone] Nurse Call, [facility] Urology 10/31/2024 15:00 EST Post-op Visit [address] [phone] Clemente Gerardo MD [address] [place] [address] [phone] 12/06/2024 10:15 EST Office Visit [facility] Ophthalmology [address] [address] Spike Puentes MD [address] [place] [phone] Scheduled Procedures Name Priority Associated Diagnoses Date/Ti me INSERTION, PENILE PROSTHESIS, INFLATABLE, 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 10/14/2024 11:00 EST documented as of this encounter Procedures Procedure Name Priority Date/Time Associated Diagnosis Comments XR HIP LEFT 2 VIEWS W/ PELVIS 11/12/2016 12:17 EST XR RIBS LEFT WITH PA CHEST 11/12/2016 12:[address] HEAD WO CONTRAST 11/12/2016 1 1:36 EST documented in this encounter Results * XR HIP LEFT 2 VIEWS W/ PELVIS (11/12/2016 12:17 EST) Anatomical Region Laterality Modality Lower Extremities Other 11/12/2016 12:1 7 EST Narrative 11/12/2016 12:58 EST ? EXAM: RADIOLOGY/HIP LEFT 2 VIEWS W/ PELVI EX. D/ (1204) ? CLINICAL INFORMATION: ? FALL WITH HIP PAIN ? INDICATION: ? FALL WITH HIP PAIN HIP/BACK PAIN ? TECHNIQUE: ??One view pelvis. 2 views left hip. ? COMPARISON: None. ? FINDINGS: Early bilateral hip joint space narrowing is seen. ? Bilateral acetabular roof marginal osteophytes are seen. No left hip ? fractures seen. The left pubic rami appear intact. ? IMPRESSION: ? 1. No left hip fracture detected. ? 2. Early bilateral hip osteoarthritis. ? REPORT SIGNED IN OTHER VENDOR SYSTEM 11/12/2016 ?Reported By: Ag Chau MD ? CC: ? Transcribed Date/Time: 11/12/2016 (1258) ? Diamond Blender: ? Printed Date/Time: 04/15/2019 (1955) ? PAGE 1 ? Signed Report ? Procedure Note Ag Chau MD - 09/07/2019 EXAM: RADIOLOGY/HIP LEFT 2 VIEWS W/ PELVI EX. D/ (1204) CLINICAL INFORMATION: FALL WITH HIP PAIN INDICATION: FALL WITH HIP PAIN HIP/BACK PAIN TECHNIQUE: One view pelvis. 2 views left hip. COMPARISON: None. FINDINGS: Early bilateral hip joint space narrowing is seen. Bilateral acetabular roof marginal osteophytes are seen. No lefthip fractures seen. The left pubic rami appear intact. IMPRESSION: 1. No left hip fracture detected. 2. Early bilateral hip osteoarthritis. REPORT SIGNED IN OTHER VENDOR SYSTEM 11/12/2016 Reported By: Ag Chau MD CC: Transcribed Date/Time: 11/12/2016 (8960) Diamond Blender: Printed Date/Time: 04/15/2019 (7815) PAGE 1 Signed Report Joe Joel MD IMG DIAGNOSTIC IMAGI NG ORDERABLES * XR RIBS LEFT WITH PA CHEST (11/12/2016 12:16 EST) Anatomical Region Laterality Modality Left Other 11/12/2016 12:1 6 EST Narrative 11/12/2016 12:20 EST ? EXAM: RADIOLOGY/RIBS LEFT 3+VIEW(W/PA DAMON EX. D/ (1204) ? CLINICAL INFORMATION: ? FALL WITH RIB PAIN ? INDICATION: FALL WITH RIB PAIN HIP/BACK PAIN ? TECHNIQUE: 3 views with PA chest ? COMPARISON: 05/18/2009 ? FINDINGS: ??The cardiomediastinal silhouette and pulmonary vessels are ? within normal limits. ??The lungs are clear. ??There is a nondisplaced ? posterior left-sided 9th and 10th rib fracture.. No pneumothorax or ? effusion is seen. ? IMPRESSION: ? 1. Lungs clear. ? 2. Posterior left 9th and 10th rib fractures. ? REPORT SIGNED IN OTHER VENDOR SYSTEM 11/12/2016 ?Reported By: Juaquin Mistry MD ? CC: ? Transcribed Date/Time: 11/12/2016 (1220) ? Diamond Blender: ? Printed Date/Time: 04/15/2019 (1955) ? PAGE 1 ? Signed Report ? Procedure Note Juaquin Mistry MD - 09/07/2019 EXAM: RADIOLOGY/RIBS LEFT 3+VIEW(W/PA DAMON EX. D/ (1204) CLINICAL INFORMATION: FALL WITH RIB PAIN INDICATION: FALL WITH RIB PAIN HIP/BACK PAIN TECHNIQUE: 3 views with PA chest COMPARISON: 05/18/2009 FINDINGS: The cardiomediastinal silhouette and pulmonary vesselsare within normal limits. The lungs are clear. There is anondisplaced posterior left-sided 9th and 10th rib fracture.. No pneumothorax or effusion is seen. IMPRESSION: 1. Lungs clear. 2. Posterior left 9th and 10th rib fractures. REPORT SIGNED IN OTHER VENDOR SYSTEM 11/12/2016 Reported By: Juaquin Mistry MD CC: Transcribed Date/Time: 11/12/2016 (1220) Diamond Blender: Printed Date/Time: 04/15/2019 (1955) PAGE 1 Signed Report Joe Joel MD IMG DIAGNOSTIC IMAGI NG ORDERABLES * CT HEAD WO CONTRAST (11/12/2016 11:36 EST) Anatomical Region Laterality Modality Head Other 11/12/2016 11:3 6 EST Narrative 11/12/2016 11:51 EST ? EXAM: CAT SCAN/HEAD WITHOUT CONTRAST ?EX. D/ (1134) ? CLINICAL INFORMATION: ? HEADACHE AFTER FALL ??TAKES ASA ? HEAD WITHOUT CONTRAST 11/12/2016 11:34 AM ? Signs and Symptoms: HIP/BACK PAIN HEADACHE AFTER FALL ??TAKES ASA ? Comparison: 05/18/2009 ? Technique: ??Axial unenhanced CT imaging of the brain was obtained. ? Findings: ? Posterior fossa: ? No brain stem, cerebellar or cerebellopontine angle abnormality. ? Ventricles: ? 4th ventricle midline in position. 3rd and lateral ventricles normal ? in position. No midline shift. ? Cortical atrophy with proportionate ex vacuo ventricular dilation is ? present. ? Intracranial findings: ? There is focal increase in density which is asymmetric noted in the ? right anterior frontal lobe (axial #40). This was not evident on the ? comparison CT of 05/18/2009. This is concerning for small intracranial ? hemorrhage. ? Milner-white differentiation preserved. ? No extra cerebral fluid collection identified. Minimal intracranial ? atherosclerosis is present. ? Sinuses and orbits: ? The paranasal sinuses are clear. There are likely postsurgical ? changes in the left-sided air cells with a large defect noted in the ? left aspect of the ethmoid (axial #20) ? Visualized portions of the orbits are unremarkable. ? Scalp/calvarium: ? Bone windows unremarkable. The scalp and surrounding soft tissues are ? unremarkable. ? Impression: ? 1. ??Small focus of increased density right anterior frontal lobe new ? since 05/18/2009, concerning for brain contusion. No underlying ? calvarial fracture. ? 2. ??Atherosclerosis. ? 3. ?? Mild cortical atrophy. ? PAGE 1 ? Signed Report ? (CONTINUED) ? I discussed the case with LAZARO Moreno at 11/12/2016 11:44 ? AM. ? REPORT SIGNED IN OTHER VENDOR SYSTEM 11/12/2016 ?Reported By: Ag Chau MD ? CC: ? Transcribed Date/Time: 11/12/2016 (1151) ? Diamond Blender: ? Printed Date/Time: 04/15/2019 (195) ? PAGE 2 ? Signed Report ? Procedure Note Ag Chau MD - 09/07/2019 EXAM: CAT SCAN/HEAD WITHOUT CONTRAST EX. D/ (1134) CLINICAL INFORMATION: HEADACHE AFTER FALL TAKES ASA HEAD WITHOUT CONTRAST 11/12/2016 11:34 AM Signs and Symptoms: HIP/BACK PAIN HEADACHE AFTER FALL TAKES ASA Comparison: 05/18/2009 Technique: Axial unenhanced CT imaging of the brain was obtained. Findings: Posterior fossa: No brain stem, cerebellar or cerebellopontine angle abnormality. Ventricles: 4th ventricle midline in position. 3rd and lateral ventriclesnormal in position. No midline shift. Cortical atrophy with proportionate ex vacuo ventricular dilationis present. Intracranial findings: There is focal increase in density which is asymmetric noted in the right anterior frontal lobe (axial #40). This was not evident onthe comparison CT of 05/18/2009. This is concerning for smallintracranial hemorrhage. Milner-white differentiation preserved. No extra cerebral fluid collection identified. Minimal intracranial atherosclerosis is present. Sinuses and orbits: The paranasal sinuses are clear. There are likely postsurgical changes in the left-sided air cells with a large defect noted inthe left aspect of the ethmoid (axial #20) Visualized portions of the orbits are unremarkable. Scalp/calvarium: Bone windows unremarkable. The scalp and surrounding soft tissuesare unremarkable. Impression: 1. Small focus of increased density right anterior frontal lobenew since 05/18/2009, concerning for brain contusion. No underlying calvarial fracture. 2. Atherosclerosis. 3. Mild cortical atrophy. PAGE 1 Signed Report (CONTINUED) I discussed the case with LAZARO Moreno at 11/12/201611:44 AM. REPORT SIGNED IN OTHER VENDOR SYSTEM 11/12/2016 Reported By: Ag Chau MD CC: Transcribed Date/Time: 11/12/2016 (1151) Diamond Blender: Printed Date/Time: 04/15/2019 (242) PAGE 2 Signed Report Ale Louise PA-C IMG CT ORDER BENNY documented in this encounter Visit Diagnoses Not on filedocumented in this encounter Care Teams Loop Drier Operator Relationship Specialty Start Date End Date Vel Santos MD PCP - General 10/30/11 03/09/23 documented as of this encounter
--- OUTSIDE RECORDS SUMMARY | 2024-07-19 22:15 | XMS_ITS | Encounter Summary ---
Author Organization [facility] Address [address] [place] [address] Care Team Providers Care Inclusion Specialist Name Role Phone Vel Santos MD Primary Care Provider Dave doe Encounter Details Date Type Department Care Team (Latest Contact Info) Description 11/12/2016 13:20 EST - 11/12/2016 23:59 EST Hospital Encounter [facility] [address] [place] [address] Unknown, Provider, Discharge Disposition: Home or Self [...] No 07/25/2016 documented as of this encounter Medications at Time of Discharge Medication Sig Dispensed Refills Start Date End Date aspirin 325 mg tablet Take 1 Tablet by mouth daily. nitroGLYCERIN (NITROSTAT) 0.[address] 1 Tablet under the tongue as needed. 07/07/2014 Hzjgx-7-LIO-EPA-Fish Oil 1,000 (120-180) mg capsule Take 1,000 [...] once a week for testosterone 11/09/2013 06/20/2020 nystatin (MYCOSTATIN) ointment Apply 1 application topically 3 times daily as needed. 11/05/2015 02/12/2023 omeprazole (PRILOSEC) 20 mg capsule Take 20 mg by mouth daily. 10/20/2019 Zinc 10 mg tablet Take 10 mg by mouth. 12 / documented as of this encounter Discharge Disposition Disposition Code Departure Means Destination Home or Self M[facility] documented in this encounter Plan of Treatment Upcoming Encounters Date Type Department Care Team (Late st Contact Info) Description 10/04/2024 9:50 EST Appointment [facility] Pre-Surgical Testing [address] [place] [phone] 10/14/2024 11:00 EST Hospital Encounter [facility] OR [address] [place] [address] [phone] Clemente Gerardo MD [address] [place] [address] [phone] 10/14/2024 11:00 EST - 10/14/2024 14:35 EST Surgery [facility] OR [address] [place] [address] [phone] Clemente Gerardo MD [address] [place] [address] [phone] Implantation of inflatable penile prosthesis [64502 (CPT??)] 10/17/2024 9:00 EST Telemedicine [facility] [phone] Nurse Call, [facility] Urology 10/31/2024 15:00 EST Post-op Visit [facility] Urology [address] [phone] Clemente Gerardo MD [address] [place] [address] [phone] 12/06/2024 10:15 EST Office Visit [facility] [address] [place] [address] Spike Puentes MD [address] [phone] Scheduled Procedures Name Priority Associated Diagnoses Date/Ti me INSERTION, PENILE PROSTHESIS, INFLATABLE, 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 10/14/2024 11:00 EST documented as of this encounter Visit Diagnoses Not on filedocumented in this encounter Care Teams Inclusion Specialist Relationship Specialty Start Date End Date Vel Santos MD PCP - General 10/30/11 03/09/23 documented as of this encounter
--- OUTSIDE RECORDS SUMMARY | 2024-07-19 22:15 | XMS_ITS | Encounter Summary ---
Author Organization [facility] Address [address] [place] [address] Care Team Providers Care Studio Hand Name Role Phone Vel Santos MD Primary Care Provider Marco Cowart MD Primary Care Provider [phone] Marco Aleman MD Primary Care Provider [phone] Encounter Details Date Type Department Care Team (Late st Contact Info) Description 02/26/2017 Historical Results Only [facility] [address] [place] [address] Unknown, Provider, Social History Tobacco [...] Appointment [facility] Pre-Surgical Testing [address] [place] [address] [phone] 10/14/2024 11:00 EST Hospital Encounter [facility] OR [address] [place] [address] [phone] Clemente Gerardo MD [address] [place] [address] [phone] 10/14/2024 11:00 EST - 10/14/2024 14:35 EST Surgery [facility] OR [address] [place] [address] [phone] Clemente Gerardo MD [address] [place] [address] [phone] Implantation of inflatable penile prosthesis [05971 (CPT??)] 10/17/2024 9:00 EST Telemedicine [facility] Urology [address] [phone] Nurse Call, [facility]rology 10/31/2024 15:00 EST Post-op Visit [facility] [address] [phone] Clemente Gerardo MD [address] [place] [address] [phone] 12/06/2024 10:15 EST Office Visit [facility] Ophthalmology [address] [phone] Spike Puentes MD [address] [place] [address] [phone] Scheduled Procedures Name Priority Associated Diagnoses Date/Ti me INSERTION, PENILE PROSTHESIS, INFLATABLE, 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 10/14/2024 11:00 EST documented as of this encounter Procedures Procedure Name Priority Date/Time Associated Diagnosis Comments HISTORICAL STRESS TEST 02/26/2017 14:00 EDT TESTOSTERONE, TOTAL AND FREE Routine 02/26/2017 13:43 EDT documented in this encounter Results * HISTORICAL STRESS TEST (02/26/2017 14:00 EDT) Anatomical Region Laterality Modality Nuclear Stress 02/26/2017 14:0 0 EDT Narrative 02/26/2017 14:00 EDT ? [facility] ?[facility] ?[address] [address] ? [id number] ?C A R D I A C ?S T R E S S ?T E S T ?R E P O R T NAME: GLORIA GARCIA ?: 52 TELEPHONE: [phone] ? MR#: [id number] ? *[facility]* *[facility]* [address] [place] [address] Stress Electrocardiography Kevyn protocol Date of study: ??02/26/2017 *PATIENT PRESENTATION* Height: ? 180.3cm ((71in) ) Blood Pressure: Weight: ? 130.5kg ((287lb) ) BSA: ?2.61m S 2 Ordering physician: Hussain Shane Impressions: ?? Indeterminate stress test due to inadequate heart rate. Summary: 1. Stress ECG conclusions: The stress ECG is negative. Winters treadmill ?? score: 5. This score predicts a moderate risk of cardiac events. 2. Impressions: Indeterminate stress test due to inadequate heart rate. ?? Recommend pharmacologic perfusion scan. Indication: ?? ([place]). History: ??PAST 6 MONTHS, INCREASING SOB WITH MINIMAL EXERTION. NO C/O CHEST PAIN. NO ASSOCIATED SYMPTOMS. OCC , RANDOM PALPITATIONS WITH ASSOCIATED DIZZINESS. 2012- NUC STRESS- NEGATIVE FOR ISCHEMIA. 2010- NSTEMI- STENT X 1. ??PMH: ?? Asthma. ??Risk factors: ??Family history of coronary artery disease. Former tobacco use. Hypertension. Dyslipidemia, on statin (HMG-CoA reductase inhibitor) therapy. Cholesterol: 156mg/dl. HDL: 36mg/dl. LDL: 72mg/dl. Triglycerides: 240mg/dl. MEDS: SEE E-CLINICAL. Protocol: ??Kevyn protocol. 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 Stress protocol: ? [facility] ?[facility] ?[facility] [address] [place], [place] [address] ? [id number] ?C A R D I A C ?S T R E S S ?T E S T ?R E P O R T NAME: GLORIA GARCIA ?: 52 TELEPHONE: [phone] ? MR#: [id number] ? + +---+ +---+ !Stage ? !HR !BP (mmHg) ??!Sat! + +---+ +---+ !Baseline supine ? !84 !135/80 (98)!---! + +---+ +---+ !Baseline standing ? !93 !137/78 (98)!---! + +---+ +---+ !Stage I; 1.7mph, 10degrees; 3 min !115!179/59 (99)!95%! + +---+ +---+ !Stage II; 2.5mph, 12degrees; 3 min!128! !94%! + +---+ +---+ !Peak stress ? !130! !93%! + +---+ +---+ !Recovery; 1 min ? !122!161/65 (97)!92%! + +---+ +---+ !Recovery; 3 min ? !106!146/71 (96)!97%! + +---+ +---+ !Recovery; 6 min ? !104!138/80 (99)!---! + +---+ +---+ * Stress results: ?? Maximal heart rate during stress was 130bpm (84% of maximal predicted heart rate). The maximal predicted heart rate was 155bpm. The rate-pressure product for the peak heart rate and blood pressure was 33980dn Hg/min. Stress ECG: ??MARKEDLY DECREASED FUNCTIONAL CAPACITY POOR EXERCISE ARACELIS- 5.5 METS( 4 MINUTES 36 SECONDS IN KEVYN PROTOCOL- STOPPED DUE TO SOB O2 SAT 93%) MAX HR- 130 BPM ( 84% OF MAX HR) NORMAL BP RESPONSE A FEW PVC'S NO CHEST PAIN NO ISCHEMIC ECG CHANGES AT SUBOPTIMAL HR. ??The stress ECG is negative. Winters treadmill score: 5. This score predicts a moderate risk of cardiac events. Study data: ??Ernst Kim MD supervised and was readily available during the procedure. This study was interpreted by [facility] [place] [facility]iology. ??Study status: ??Routine. ??Consent: ??The risks, benefits, and alternatives to the procedure were explained to the patient and informed consent was obtained. ??Procedure: ??Initial setup. A baseline ECG was recorded. Surface ECG leads and manual cuff blood pressure measurements were monitored. Heart sounds: Normal. Lung sounds: Normal. Treadmill exercise testing was performed using the Kevyn protocol. The patient exercised for 4 min 36 sec, to protocol stage 2, to a maximal work rate of 5.5mets. ??Study completion: ??The patient tolerated the procedure well and was discharged from the lab. ??Discharge: ??The patient left the laboratory in stable condition. ? Birthdate: ??Patient birthdate: ? [facility] ?[facility] ?[address] [place], [place] [address] ? [id number] ?C A R D I A C ?S T R E S S ?T E S T ?R E P O R T NAME: GLORIA GARCIA Marisela ?: 52 TELEPHONE: [phone] ? MR#: [id number] ? 1950. ??Sex: ??Gender: male. ??Study date: ??Study date: 02/26/2017. Study time: 02:00 PM. Electronically signed by Ernst Kim MD 02/26/2017 18:25 Procedure Note Ernst Kim - 08/21/2019 [facility] [address] [place], [place] [address] [id number] C A R D I A C S T R E S S T E S T R E P O R T NAME: HOLLGLORIA PARK EDOB: [birth year] TELEPHONE: [phone] MR#: [id number] [facility]#:[id number] *[facility]* *[facility]* [address] [place] [address] Stress Electrocardiography Kevyn protocol Date of study: 02/26/2017 *PATIENT PRESENTATION* Height: 180.3cm ((71in) ) Blood Pressure: Weight: 130.5kg ((287lb) ) BSA: 2.61m S 2 Ordering physician: Hussain Shane Impressions: Indeterminate stress test due to inadequate heart rate. Summary: 1. Stress ECG conclusions: The stress ECG is negative. Winters treadmill score: 5. This score predicts a moderate risk of cardiac events. 2. Impressions: Indeterminate stress test due to inadequate heart rate. Recommend pharmacologic perfusion scan. Indication: ([place]). History: PAST 6 MONTHS, INCREASING SOB WITH MINIMAL EXERTION. NO C/O CHEST PAIN. NO ASSOCIATED SYMPTOMS. OCC , RANDOM PALPITATIONS WITH ASSOCIATED DIZZINESS. NUC STRESS- NEGATIVE FOR ISCHEMIA. 2011- NSTEMI- STENT X 1. PMH: Asthma. Risk factors: Family history of coronary artery disease. Former tobacco use. Hypertension. Dyslipidemia, on statin (HMG-CoA reductase inhibitor) therapy. Cholesterol: 156mg/dl. HDL: 36mg/dl. LDL: 72mg/dl. Triglycerides: 240mg/dl. MEDS: SEE E-CLINICAL. Protocol: Kevyn protocol. 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 Stress protocol: [facility] [address] [place] [id number] C A R D I A C S T R E S S T E S T R E P O R T NAME: GLORIA GARCIA EDOB: [birth year] TELEPHONE: [phone] MR#: [id number] + +---+ +---+ !Stage !HR !BP (mmHg) !Sat! + +---+ +---+ !Baseline supine !84 !135/80 (98)!---! + +---+ +---+ !Baseline standing !93 !137/78 (98)!---! + +---+ +---+ !Stage I; 1.7mph, 10degrees; 3 min !115!179/59 (99)!95%! + +---+ +---+ !Stage II; 2.5mph, 12degrees; 3 min!128! !94%! + +---+ +---+ !Peak stress !130! !93%! + +---+ +---+ !Recovery; 1 min !122!161/65 (97)!92%! + +---+ +---+ !Recovery; 3 min !106!146/71 (96)!97%! + +---+ +---+ !Recovery; 6 min !104!138/80 (99)!---! + +---+ +---+ * Stress results: Maximal heart rate during stress was 130bpm (84% of maximal predicted heart rate). The maximal predicted heart rate was 155bpm. The rate-pressure product for the peak heart rate and blood pressure was 50536iw Hg/min. Stress ECG: MARKEDLY DECREASED FUNCTIONAL CAPACITY POOR EXERCISE ARACELIS- 5.5 METS( 4 MINUTES 36 SECONDS IN KEVYN PROTOCOL- STOPPED DUE TO SOB O2 SAT 93%) MAX HR- 130 BPM ( 84% OF MAX HR) NORMAL BP RESPONSE A FEW PVC'S NO CHEST PAIN NO ISCHEMIC ECG CHANGES AT SUBOPTIMAL HR. The stress ECG is negative. Winters treadmill score: 5. This score predicts a moderate risk of cardiac events. Study data: Ernst Kim MD supervised and was readily available during the procedure. This study was interpreted by [facility] [place] [facility]iology. Study status: Routine. Consent: The risks, benefits, and alternatives to the procedure were explained to the patient and informed consent was obtained. Procedure: Initial setup. A baseline ECG was recorded. Surface ECG leads and manual cuff blood pressure measurements were monitored. Heart sounds: Normal. Lung sounds: Normal. Treadmill exercise testing was performed using the Kevyn protocol. The patient exercised for 4 min 36 sec, to protocol stage 2, to a maximal work rate of 5.5mets. Study completion: The patient tolerated the procedure well and was discharged from the lab. Discharge: The patient left the laboratory in stable condition. Birthdate: Patient birthdate: [facility] [address] [place] [address] [id number] C A R D I A C S T R E S S T E S T R E P O R T NAME: GLORIA GARCIA EDOB: [birth year] TELEPHONE: [phone] MR#: [id number] [id number] 1950. Sex: Gender: male. Study date: Study date: 02/26/2017. Study time: 02:00 PM. Electronically signed by Ernst Kim MD 02/26/2017 18:25 Provider Unknown MD CARDIAC NM ORDERABLE S * (ABNORMAL) TESTOSTERONE, TOTAL AND FREE (02/26/2017 13:43 EDT) [facility] Signature SEX HORMONE BINDING GLOBULIN - [facility] 31.1 17.3 - 65.8 nmol/L 02/27/2017 8:36 EDT [facility] TESTOSTERONE FREE - [facility] 23.1(A) 5.0 - 21.0 ng/dl 02/27/2017 8:36 T [facility] Comment: Test not recommended in patients with plasma protein abnormalities. Test Performed by: [place] [address] Java Tech Lead: Joe Geller MD , Ph D TESTOSTERONE TOTAL - [facility] 935(A) 241 - 827 ng/dl 02/27/2017 8:36 [facility] 02/26/2017 13:4 3 EDT 02/26/2017 13:43 EDT Narrative [facility] - 02/27/2017 8:36 EDT Does PT Have a Latex Allergy? NO Vel Santos MD CHEMISTRY & BLOOD GA S ORDERABLES [facility] documented in this encounter Visit Diagnoses Not on filedocumented in this encounter Care Teams Studio Hand Relationship Specialty Start Date End Date Vel Santos MD PCP - General 10/30/11 03/09/23 Marco Altamirano MD [address] [place] [address] [phone] PCP - General Family Medicine - Primary Care 03/10/23 09/13/23 Marco Aleman MD [address] [place] [address] [place] [address] PCP - General Emergency Medicine 12/07/23 documented as of this encounter
--- OUTSIDE RECORDS SUMMARY | 2024-07-19 22:15 | XMS_ITS | Encounter Summary ---
Author Organization [facility] Address [address] [place] [address] Care Team Providers Care Import Export Coordinator Name Role Phone Vel Santos MD Primary Care Provider Unava ilable Reason for Visit * Reason Comments Referral Request Visual Disturbance Encounter Details Date Type Department Care Team (Late st Contact Info) Description 04/18/2013 9:15 EDT Office Visit [facility] Ophthalmology [address] [address] Lissette Webb [address], [place] [address] Social History Tobacco Use Types Packs/Day Years Used Date Smoking Tobacco: Former Sex and Gender Information Value Date Recorded Sex Assigned at Male 12/26/2021 11:38 EST Gender Identity Male 06/20/2020 15:19 EDT Sexual Orientation Straight 12/26/2021 11 :37 EST documented as of this encounter Progress Notes * Lissette Webb - 04/18/2013 0940 EDT Chief Complaint Patient presents with ??? Referral Request Visual Disturbance HPI The patient is a 63 y.o. male Right Eye: NL Left Eye: Blurred Vision;Fluctuating Visual Acuity;Distorted Vision Visual Aid: Glasses Current Rx Age > 2 years Location: Left eye Pain: 0 - No pain Quality: Severity: Moderate Duration: Minutes Timing: Infrequently Lasts: Weeks Context: Pt has had 2 episodes within the past 3 weeks of a visual disturbance that he fels is in his left eye only. His VA seems to vibrate f or 1/2 hour and then returns to normal. No other changes in VA and no pain. Modifying factors: Associated Signs & Symptoms: Attestation: ROS Constitutional: NL ENT/Mouth NL Cardiovascular: High Blood Pressure;High Cholesterol Respiratory: NL Gastrointestinal: NL Genitourinary: NL Musculoskeletal: NL Integumentary: NL Neurologic: NL Psychiatric: NL Endocrine: NL Hematologic: NL Immunologic: NL Transit Police Officer: Exposures: None Other: Attestation: Base Ophthalmology Exam Visual Acuity Right Left Dist sc 20/20 -2 20/200 Dist ph cc NI Method: Snellen - Linear Correction: Glasses Tonometry Right Left Pressure 24 32 Method: Applanation Time: 9:28 Wearing Rx Sphere Cylinder [place] Add Right [place] -0.75 104 +2.25 Left -0.25 -1.00 75 +2.25 Dilation Both eyes: 1.0% Mydriacyl, 2.5% Phenylephrine @ 9:36 Pupils Pupils Dark APD Right PERRL 4 None Left PERRL 4 None Final Rx Sphere Cylinder [place] Add Right 0.00 -0.75 104 +2.25 Left -0.25 -1.00 75 +2.25 Main Ophthalmology Exam Slit Lamp Exam Right Left Lids/Lashes Normal Normal Conjunctiva/Sclera White and quiet White and quiet Cornea Clear Clear Anterior Chamber Deep and quiet Deep and quiet Iris Round and reactive Round and reactive Lens Clear Clear Fundus Exam Right Left Vitreous Normal 3+ Asteroid hyalosis Disc Normal Normal C/D Ratio 0.45 0.45 Macula Normal Normal Vessels Normal Normal Periphery Normal Normal, No holes, no tears Neuro/Psych Oriented x3: Yes Mood/Affect: Normal DIAGNOSTIC TESTS: IMPRESSION & PLAN: Asteroid Hyalosis, 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 I have also reviewed the patient's medications, allergies, and problem list. I performed my own HPI and have reviewed the tech's ROS as well. I personally completed this exam myself. Lissette Webb MD I am scribing for Lissette Webb MD, while she is personally performing the service. Patient Education Topic: visual disturbance Method: Verbal Taught to: Patient Barriers: None Outcomes: independent Signature: Chely Ortiz COA documented in this encounter Plan of Treatment Upcoming Encounters Date Type Department Care Team (Late st Contact Info) Description 10/04/2024 9:50 EST Appointment [facility] Pre-Surgical Testing [address] [place] [address] [phone] 10/14/2024 11:00 EST Hospital Encounter [facility] OR [address] [place] [address] [phone] Clemente Gerardo MD [address] [place] [address] [phone] 10/14/2024 11:00 EST - 10/14/2024 14:35 EST Surgery [facility] OR [address] [place] [address] [phone] Clemente Gerardo MD [address] [place] [address] [phone] Implantation of inflatable penile prosthesis [10638 (CPT??)] 10/17/2024 9:00 EST Telemedicine [facility] [address] [phone] Nurse Call, [facility] Urology 10/31/2024 15:00 EST Post-op Visit [address] [phone] Clemente Gerardo MD [address] [place] [address] [phone] 12/06/2024 10:15 EST Office Visit [facility] Ophthalmology [facility] [address] [place] [address] Spike Puentes MD [address] [place] [phone] Scheduled Procedures Name Priority Associated Diagnoses Date/Ti me INSERTION, PENILE PROSTHESIS, INFLATABLE, 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 10/14/2024 11:00 EST documented as of this encounter Visit Diagnoses Diagnosis 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 Medication Sig Dispensed Refills Start Date End Date aspirin 325 mg tablet Take 1 Tablet by mouth daily. Jylhx-0-OMU-EPA-Fish Oil 1,000 (120-180) mg capsule Take 1,000 mg by mouth 2 times daily. Zinc 10 mg tablet Take 10 mg by mouth. Magnesium 100 mg tablet Take 80 mg by mouth. 10/20/2019 Calcium Citrate 250 mg calcium tablet Take 500 mg by mouth. 10/20/2019 folic acid (FOLVITE) 800 mcg tablet Take 800 mcg by mouth daily. 10/20/2019 alpha lipoic acid 200 mg capsule Take by mouth. 10/20/2019 omeprazole (PRILOSEC) 20 mg capsule Take 20 mg by mouth daily. 10/20/2019 ALPRAZolam (XANAX) 1 mg tablet Take 1 mg by mouth as needed. 10/20/2019 Hydrocodone-Acetaminophen 10-660 mg tablet Take by mouth as needed. 10/20/2019 cyclobenzaprine (FLEXERIL) 10 mg tablet Take 10 mg by mouth 2 times daily. 10/20/2019 metoprolol XL (TOPROL-XL) 100 mg tablet Take 100 mg by mouth daily. 10/20/2019 atorvastatin (LIPITOR) 40 mg tablet Take 40 mg by mouth daily. 10/20/2019 lisinopril (PRINIVIL, ZESTRIL) 5 mg tablet Take 5 mg by mouth daily. 10/20/2019 added in this encounter Eye Exam Visual Acuity (Snellen - Linear) Right eye Left eye Dist sc 20/20 -2 20/200 Dist ph cc NI Correction: Glasses Tonometry (Applanation, 9:28) Right eye Left eye Pressure 24 32 Pupils Pupils Dark APD Right eye PERRL 4 None Left eye PERRL 4 None Neuro/Psych Oriented x3: Yes Mood/Affect: Normal Dilation Both eyes: 1.0% Mydriacyl, 2 .5% Phenylephrine @ 9:36 Slit Lamp Exam Right eye Left eye Lids/Lashes Normal Normal Conjunctiva/Sclera White and quiet White and sindi et Cornea Clear Clear Anterior Chamber Deep and quiet Deep and quiet Iris Round and reactive Round and sharmila ctive Lens Clear Clear Vitreous Normal 3+ Asteroid hyal osis Fundus Exam Right eye Left eye Disc Normal Normal C/D Ratio 0.45 0.45 Macula Normal Normal Vessels Normal Normal Periphery Normal Normal, No holes , no tears Wearing Rx Sphere Cylinder [place] Add Right eye [place] -0.75 104 +2.25 Left eye -0.25 -1.00 75 +2.25 Final Rx Sphere Cylinder [place] Add Right eye 0.00 -0.75 104 +2.25 Left eye -0.25 -1.00 75 +2.25 Care Teams Import Export Coordinator Relationship Specialty Start Date End Date Vel Santos MD PCP - General 10/30/11 03/09/23 documented as of this encounter
--- OUTSIDE RECORDS SUMMARY | 2024-07-19 22:15 | XMS_ITS | Encounter Summary ---
Author Organization [facility] Address [address] [place] [address] Care Team Providers Care Senior Clinical Research Associate Name Role Phone Vel Santos MD Primary Care Provider Dave doe Encounter Details Date Type Department Care Team (Latest Contact Info) Description 04/28/2017 14:58 EDT - 04/28/2017 23:59 EDT Hospital Encounter [facility] [address] [place] [address] Unknown, Provider, Discharge Disposition: Home or Self [...] visiting a doctor's office or shopping? No 03/02/2017 documented as of this encounter Medications at Time of Discharge Medication Sig Dispensed Refills Start Date End Date aspirin 325 mg tablet Take 1 Tablet by mouth daily. DIABETIC SUPPLIES, MISCELLAN. MISC Syringe 3cc 02/17/2017 nitroGLYCERIN (NITROSTAT) 0.[address] 1 Tablet under the tongue as needed. 07/07/2014 Fmsfq-3-VDB-EPA-Fish Oil 1,000 (120-180) mg capsule Take 1,000 [...] Code Departure Means Destination Home or Self Alf documented in this encounter Plan of Treatment Upcoming Encounters Date Type Department Care Team (Late st Contact Info) Description 10/04/2024 9:[address] [facility] Pre-Surgical Testing [address] [place] [address] [phone] 10/14/2024 11:00 EST Hospital Encounter [facility] OR [address] [place] [address] [phone] Clemente Gerardo MD [address] [place] [address] [phone] 10/14/2024 11:00 EST - 10/14/2024 14:35 EST Surgery [facility] OR [address] [place] [address] [phone] Clemente Gerardo MD [address] [place] [address] [phone] Implantation of inflatable penile prosthesis [02459 (CPT??)] 10/17/2024 9:00 EST Telemedicine [facility] Urology [address] [phone] Nurse Call, [facility] Urology 10/31/2024 15:00 EST Post-op Visit [facility] Urology [address] [phone] Clemente Gerardo MD [address] [place] [address] [phone] 12/06/2024 10:15 EST Office Visit [facility] Ophthalmology - [place] [address] [place] [address] Spike Puentes MD [address] [place] [phone] Scheduled Procedures Name Priority Associated Diagnoses Date/Ti me INSERTION, PENILE PROSTHESIS, INFLATABLE, 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 10/14/2024 11:00 EST documented as of this encounter Visit Diagnoses Not on filedocumented in this encounter Care Teams Senior Clinical Research Associate Relationship Specialty Start Date End Date Vel Santos MD PCP - General 10/30/11 03/09/23 documented as of this encounter
--- OUTSIDE RECORDS SUMMARY | 2024-07-19 22:15 | XMS_ITS | Encounter Summary ---
Author Organization [facility] Address [address] [place] [address] Care Team Providers Care Water Gas Operator Name Role Phone Vel Santos MD Primary Care Provider Unava ilable Reason for Referral * (Routine) - Closed Specialty Diagnoses / Procedures Referred By Contac t Referred To Contact Diagnoses Glaucoma suspect Procedures OCT (OPHTHALMIC DIGITAL IMAGING, POSTERIOR SEGMENT) Spike Puentes MD [address] [place] [phone] Referral ID Status Reason Start Date Expiration Date Visits Re quested Visits Authorized [id number] Closed 12/15/2014 1 1 * (Routine) - Closed Specialty Diagnoses / Procedures Referred By Contac t Referred To Contact Diagnoses Glaucoma suspect Procedures VISUAL FIELD EXAM, INTERMEDIATE Spike Puentes MD [address] [place] [phone] Referral ID Status Reason Start Date Expiration Date Visits Re quested Visits Authorized [id number] Closed 12/15/2014 1 1 Reason for Visit * Reason Comments Glaucoma Suspicion 24-2 HVF today RFNL today Amblyopia left eye, with left esotropia Encounter Details Date Type Department Care Team (Late st Contact Info) Description 12/15/2014 14:30 EST Office Visit [facility] Ophthalmology [address] [address] Spike Puentes MD [address] [place] [phone] Social History Tobacco Use Types [...] Progress Notes * Spike Puentes MD - 12/15/2014 1632 EST Chief Complaint Patient presents with ??? Glaucoma Suspicion 24-2 HVF today RFNL today ??? Amblyopia left eye, with left esotropia HPI The patient is a 64 y.o. male Right Eye: Blurred Vision, Glare or Light Sensitivity Left Eye: Blurred Vision, Glare or Light Sensitivity Visual Aid: Glasses Current Rx Age > 2 years Location: Pain: 0 - No pain Quality: Severity: Duration: Timing: Lasts: Context: Patient notes that he has had a rapid decrease in vision both dist. and near. Used to be able to see fairly well without glasses but now he can't read his phone or small print. Dist. vision is blurry. Modifying factors: Associated Signs & Symptoms: Attestation: ROS Constitutional: NL ENT/Mouth Cardiovascular: High Blood Pressure (patient on bp med because he had a heart attack) Respiratory: Gastrointestinal: Genitourinary: Musculoskeletal: Integumentary: Neurologic: Psychiatric: Endocrine: Hematologic: Immunologic: Agency Cashier: Exposures: Other: Attestation: Base Eye Exam Visual Acuity (Snellen - Linear) Right Left Dist cc 20/20 -2 20/200 Near cc J1+ 20/400 Correction: Glasses Tonometry (Applanation, 15:35) Right Left Pressure 17 24 Pupils Light APD Right 3 None Left 3 None Extraocular Movement Right Left Result Full Abnormal -- -- -- -- -- -- -- -- 0 0 0 0 0 0 0 0 Left esotropia Neuro/Psych Oriented x3: Yes Mood/Affect: Normal Dilation Both eyes: 1.0% Mydriacyl, 2.5% Phenylephrine @ 15:36 Refraction Wearing Rx Sphere Cylinder [place] Right -1.00 +1.00 010 Left -1.25 -1.25 161 Manifest Refraction Sphere Cylinder [place] Dist Add Near Right -1.00 +1.25 030 20/20 +3.00 J1+ Left -1.25 +1.25 164 20/200 +3.00 20/400 DIAGNOSTIC TESTS: Indication: glaucoma suspect OCT rNFL: Right: signal strength: 8/10 avg thickness 97.94- no thinning Left: signal strength: 3/10 avg thickness 74.95 (artifact from asteroid hyalosis)- borderline thinning inferior, nasal, and superior Indication: glaucoma suspect HVF: Right: reliable (0 FN,FL,FP), full Left: reliable (5/11 FL), diffuse scatter, no pattern. IMPRESSION & PLAN: 1. Glaucoma suspect with optic nerve cupping and elevated IOP. CCT: 600/596 Family history: none Tmax: 24/32 -HVF today is largely normal. -rNFL OCT today -Return 1 year 2. Cataract, both eyes Not visually significant -Monitor periodically 3. Amblyopia, left eye No treatment 4. Disorder of refraction and accommodation -Give glasses Rx patient???s option to fill. -Given distance prescription and separate computer/reading prescription I have reviewed the patient's past medical, family, social and surgical history. I have also reviewed the patient's medications, allergies, and problem list. I performed my own HPI and have reviewed the [facility]'s ROS as well. I completed this exam personally. Spike Puentes MD I am scribing for Spike Puentes MD, while he is personally performing the service. Gerda Jolly Patient Education Topic: glaucoma suspect Method: Verbal Taught to: Patient Barriers: None Outcomes: independent Signature: Spike Puentes MD documented in this encounter Plan of Treatment Upcoming Encounters Date Type Department Care Team (Late st Contact Info) Description 10/04/2024 9:50 EST Appointment [facility] Pre-Surgical Testing [address] [place] [phone] 10/14/2024 11:00 EST Hospital Encounter [facility] OR [address] [place] [address] [phone] Clemente Gerardo MD [address] [place] [address] [phone] 10/14/2024 11:00 EST - 10/14/2024 14:35 EST Surgery [facility] [place] [address] [place] [address] [phone] Clemente Gerardo MD [address] [place] [address] [phone] Implantation of inflatable penile prosthesis [07901 (CPT??)] 10/17/2024 9:00 EST Telemedicine [facility] Urology [address] [phone] Nurse Call, [facility] Urology 10/31/2024 15:00 EST Post-op Visit [address] [phone] Clemente Gerardo MD [address] [place] [address] [phone] 12/06/2024 10:15 EST Office Visit [facility] Ophthalmology [address] [address] Spike Puentes MD [address] [place] [address] [phone] Scheduled Orders Name Type Priority Associated Diagnoses Orde r Schedule VISUAL FIELD EXAM, INTERMEDIATE Ophthalmology Routine Glaucoma suspect Ordered: 12/15/2014 OCT (OPHTHALMIC DIGITAL IMAGING, POSTERIOR SEGMENT) Ophthalmology Routine Glaucoma suspect Ordered: 12/15/2014 Scheduled Procedures Name Priority Associated Diagnoses Date/Ti me INSERTION, PENILE PROSTHESIS, INFLATABLE, 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 10/14/2024 11:00 EST documented as of this encounter Visit Diagnoses Diagnosis Glaucoma suspect- Primary Preglaucoma, unspecified 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 Medication Sig Dispensed Refills Start Date End Date MEDICAL MARIJUANA 06/03/2024 buPROPion (WELLBUTRIN) 75 mg tablet Take 75 mg by mouth 3 times daily 10/20/2019 added in this encounter Eye Exam Visual Acuity (Snellen - Linear) Right eye Left eye Dist cc 20/20 -2 20/200 Near cc J1+ 20/400 Correction: Glasses Tonometry (Applanation, 15:35) Right eye Left eye Pressure 17 24 Pupils Light APD Right eye 3 None Left eye 3 None Extraocular Movement Right eye Left eye Full Abnormal Up gaze -- -- -- 0 0 0 Right/left gaze -- -- -- 0 -- 0 Down gaze -- -- -- 0 0 0 Left esotropia Neuro/Psych Oriented x3: Yes Mood/Affect: Normal Dilation Both eyes: 1.0% Mydriacyl, 2 .5% Phenylephrine @ 15:36 Slit Lamp Exam Right eye Left eye Lids/Lashes Normal Normal Conjunctiva/Sclera White and quiet White and sindi et Cornea Clear Clear Anterior Chamber Deep and quiet Deep and quiet Iris Round and reactive Round and sharmila ctive Lens Trace Nuclear sclerosis Trace Nu clear sclerosis Vitreous Normal Asteroid hyalosi s Fundus Exam Right eye Left eye Disc Normal Normal C/D Ratio 0.55 0.65 Macula Normal Normal Vessels Normal Normal Periphery Normal Normal Wearing Rx Sphere Cylinder [place] Right eye -1.00 +1.00 010 Left eye -1.25 -1.25 161 Manifest Refraction Sphere Cylinder [place] Dist VA Add Near VA Right eye -1.00 +1.25 030 20/20 +3.00 J1+ Left eye -1.25 +1.25 164 20/200 +3.00 20/400 Final Rx #1 Sphere Cylinder [place] Add Right eye -1.00 +1.25 030 +3.00 Left eye -1.25 +1.25 164 +3.00 Final Rx #2 Sphere Cylinder [place] Add Right eye +0.50 +1.25 30 +1.50 Left eye +0.25 +1.25 165 +1.50 Final Rx Comments #1 distance glasses #2 computer/reading Care Teams Water Gas Operator Relationship Specialty Start Date End Date Vel Santos MD PCP - General 10/30/11 03/09/23 documented as of this encounter
--- OUTSIDE RECORDS SUMMARY | 2024-07-19 22:15 | XMS_ITS | Encounter Summary ---
Author Organization [facility] Address [address] [place] [address] Care Team Providers Care Collection Clerk Name Role Phone Vel Santos MD Primary Care Provider Unava ilable Encounter Details Date Type Department Care Team (Late st Contact Info) Description 01/21/2017 Historical Results Only [facility] Radiology Results [address] [place], [place] [id number] Hussain Shane MD [address] [phone] Social History Tobacco Use Types Packs/Day Years [...] Description 10/04/2024 9:50 EST Appointment [facility] [address] [place] [address] 10/14/2024 11:00 EST Hospital Encounter [facility] OR [address] [place] [address] [phone] Clemente Gerardo MD [address] [place] [address] [phone] 10/14/2024 11:00 EST - 10/14/2024 14:35 EST Surgery [facility] OR [address] [place] [address] [phone] Clemente Gerardo MD [address] [place] [address] [phone] Implantation of inflatable penile prosthesis [10329 (CPT??)] 10/17/2024 9:00 EST Telemedicine [facility] Urology [address] [phone] Nurse Call, [facility] Urology 10/31/2024 15:00 EST Post-op Visit [address] [phone] Clemente Gerardo MD [address] [place] [address] [phone] 12/06/2024 10:15 EST Office Visit [facility] Ophthalmology [address] [address] Spike Puentes MD [address] [place] [phone] Scheduled Procedures Name Priority Associated Diagnoses Date/Ti me INSERTION, PENILE PROSTHESIS, INFLATABLE, 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 10/14/2024 11:00 EST documented as of this encounter Procedures Procedure Name Priority Date/Time Associated Diagnosis Comments XR CHEST 2 VIEWS 01/21/2017 13:3 3 EDT COMPLETE BLOOD COUNT WITH DIFFERENTIAL (AUTO) Routine 01/21/2017 13:02 EDT TSH Routine 01/21/2017 13:01 EDT COMPREHENSIVE METABOLIC PANEL (CMP) Routine 01/21/2017 13:01 EDT NT PRO BNP Routine 01/21/2017 12:52 EDT documented in this encounter Results * XR CHEST 2 VIEWS (01/21/2017 13:33 EDT) Anatomical Region Laterality Modality Other 01/21/2017 13:3 3 EDT Narrative 01/21/2017 13:39 EDT ? EXAM: RADIOLOGY/CHEST (PA ?? LAT) ?EX. D/ (1318) ? CLINICAL INFORMATION: ? R06.2 SOB ON EXERTION ? INDICATION: R06.2 SOB ON EXERTION SOB, R06.02 ? TECHNIQUE: ??Chest, PA and lateral views ? COMPARISON: 11/12/2016 ? FINDINGS: The lungs are clear. There is no pleural effusion or ? pneumothorax. The cardiac silhouette and pulmonary vascularity are ? normal. The osseous structures are normal for age. ? IMPRESSION: ? No acute pulmonary process ? REPORT SIGNED IN OTHER VENDOR SYSTEM 01/21/2017 ?Reported By: Brian Hood MD ? CC: ? Transcribed Date/Time: 01/21/2017 (4410) ? Manager Laboratory: ? Printed Date/Time: 04/16/2019 (3015) ? PAGE 1 ? Signed Report ? Procedure Note Brian Hood E - 09/07/2019 EXAM: RADIOLOGY/CHEST (PA LAT) EX. D/ (1318) CLINICAL INFORMATION: R06.2 SOB ON EXERTION INDICATION: R06.2 SOB ON EXERTION SOB, R06.02 TECHNIQUE: Chest, PA and lateral views COMPARISON: 11/12/2016 FINDINGS: The lungs are clear. There is no pleural effusion or pneumothorax. The cardiac silhouette and pulmonary vascularity are normal. The osseous structures are normal for age. IMPRESSION: No acute pulmonary process REPORT SIGNED IN OTHER VENDOR SYSTEM 01/21/2017 Reported By: Brian Hood MD CC: Transcribed Date/Time: 01/21/2017 (5806) Manager Laboratory: Printed Date/Time: 04/16/2019 (8174) PAGE 1 Signed Report Hussain Shane MD IMG DIAGNOSTIC IMAG ING ORDERABLES * COMPLETE BLOOD COUNT WITH DIFFERENTIAL (AUTO) (01/21/2017 13:02 EDT) ABSOLUTE NEUTROPHIL COUN - [facility] 4.13 1.7 - 7.0 10e3/ul 01/21/2017 13:47 EDT [facility] BASO # - [facility] 0.02 0.0 - 0.3 10e3/uL 01/21/2017 13:47 EDT [facility] BASO % - [facility] 0 0 - 2 % 01/21/2017 13:47 EDT [facility] EOS # - [facility] 0.07 0.05 - 0.5 10e3/uL 01/21/2017 13:47 EDT [facility] EOS % - [facility] 1 0 - 5 % 01/21/2017 13:47 EDT [facility] GRAN % - [facility] 56 40 - 80 % 01/21/2017 13:47 [facility] HEMATOCRIT - [facility] 50.1 36.0 - 52.0 % 01/21/2017 13:47 [facility] HEMOGLOBIN - [facility] 16.3 13.7 - 17.5 g/dl 01/21/2017 13:47 [facility] IG# - [facility] 0.02 0 - 0.07 10e3/uL 01/21/2017 13:47 [facility] IG% - [facility] 0.3 0 - 0.9 % 01/21/2017 13:47 [facility] LYMPH # - [facility] 2.27 0.9 - 2.9 10e3/uL 01/21/2017 13:47 [facility] LYMPH% - [facility] 31 20 - 40 % 01/21/2017 13:47 [facility] MEAN CORPUSCULAR HGB - [facility] 31.7 26 - 34 pg 01/21/2017 13:47 [facility] MEAN CORPUSCULAR HGB CONC - [facility] 32.5 31 - 36 g/dL 01/21/2017 13:47 [facility] MEAN CELL VOLUME - [facility] 97.3 77 - 100 fl 01/21/2017 13:47 [facility] MONO # - [facility] 0.80 0.3 - 0.9 10e3/uL 01/21/2017 13:47 [facility] MONO% - [facility] 11 0 - 12 % 01/21/2017 13:47 [facility] PLATELET COUNT 200 150 - 400 10e3/ul 01/21/2017 13:47 [facility] RED BLOOD COUNT - [facility] 5.15 4.3 - 5.7 10e6/ul 01/21/2017 13:47 [facility] RED CELL DISTRI WIDTH - [facility] 13.6 11.8 - 15.6 % 01/21/2017 13:47 [facility] WHITE BLOOD COUNT - [facility] 7.3 3.5 - 10.5 10e3/ul 01/21/2017 13:47 [facility] 01/21/2017 13:0 2 EDT 01/21/2017 13:03 EDT Narrative [facility] - 01/21/2017 13:47 EDT Does PT Have a Latex Allergy? NO Hussain Shane MD HEMATOLOGY & PF4 OR DERABLES [facility] * TSH (01/21/2017 13:01 EDT) [facility] THYROID STIM HORMONE - [facility] 2.17 0.35 - 5.50 uIU/mL [facility]/21[facility]2017 [facility] 13:0 1 EDT 01/21/2017 13:[address] [facility] - 01/21/2017 14:31 EDT Does PT Have a Latex Allergy? NO Hussain Shane MD CHEMISTRY & BLOOD G ORDERABLES [facility] * (ABNORMAL) COMPREHENSIVE METABOLIC PANEL (CMP) (01/21/2017 13:01 EDT) [facility] Albumin % 3.8 3.4 - 5.0 g/dL 01/21/2017 14:26 [facility] ALKALINE PHOSPHATASE - [facility] 91 42 - 122 U/L 01/21/2017 14:26 [facility] BILIRUBIN TOTAL 0.6 0.0 - 1.0 mg/dL 01/21/2017 14:26 [facility] BUN - [facility] 11 7 - 18 mg/dL 01/21/2017 14:26 [facility] CALCIUM - [facility] 9.1 8.5 - 10.1 mg/dL 01/21/2017 14:26 [facility] Chloride 103 98 - 107 mEq/L 01/21/2017 14:26 [facility] CO2 Total 30 21 - 32 mEq/L 01/21/2017 14:26 [facility] CREATININE 1.05 0.5 - 1.3 mg/dL 01/21/2017 14:26 EDT [facility] eGFR >60 01/21/2017 14:26 [facility] Comment: Chronic renal impairment is defined as GFR <60 Multiply result by 1.210 for patients. Anion Gap 6 5 - 15 01/21/2017 14:26 [facility] GLUCOSE - [facility] 80 70 - 100 mg/dL 01/21/2017 14:26 [facility] Potassium 4.6 3.5 - 5.0 mEq/L 01/21/2017 14:26 T [facility] Sodium 139 135 - 145 mEq/L 01/21/2017 14:26 [facility] TOTAL PROTEIN - [facility] 7.5 6.4 - 8.2 gm/dl 01/21/2017 14:26 [facility] SGOT/AST - [facility] 62(H) 10 - 37 U/L 01/21/2017 14:26 [facility] SGPT/ALT - [facility] 117(H) 12 - 78 U/L 01/21/2017 14:26 EDT [facility] 01/21/2017 13:0 1 EDT 01/21/2017 13:[address] [facility] - 01/21/2017 14:31 EDT Does PT Have a Latex Allergy? NO Hussain Shane MD CHEMISTRY & BLOOD G ORDERABLES Performing Organization Address City/[facility]/ZIP Co de Phone Number [facility] * NT PRO BNP (01/21/2017 12:52 EDT) [facility] Signature NATRIURETIC PEPTIDE (BNP) - [facility] 24 0 - 100 pg/ml 01/21/2017 15:16 EDT [facility] 01/21/2017 12:5 2 EDT 01/21/2017 13:[address] [facility] - 01/21/2017 15:16 EDT Does PT Have a Latex Allergy? NO Hussain Shane MD CHEMISTRY & BLOOD G ORDERABLES [facility] documented in this encounter Visit Diagnoses Not on filedocumented in this encounter Care Teams Collection Clerk Relationship Specialty Start Date End Date Vel Santos MD PCP - General 10/30/11 03/09/23 documented as of this encounter
--- OUTSIDE RECORDS SUMMARY | 2024-07-19 22:15 | XMS_ITS | Encounter Summary ---
Author Organization [facility] Address [address] [place] [address] Care Team Providers Care Office Nurse Practitioner Name Role Phone Vel Santos MD Primary Care Provider Unava ilable Encounter Details Date Type Department Care Team (Late st Contact Info) Description 03/23/2017 Historical Results Only [facility] - Main [address] [id number] Vel Santos MD Social History Tobacco Use [...] No 03/02/2017 documented as of this encounter Plan of Treatment Upcoming Encounters Date Type Department Care Team (Late st Contact Info) Description 10/04/2024 9:[address] [facility] Pre-Surgical Testing [address] [place] [address] 10/14/2024 11:00 EST Hospital Encounter [facility] OR [address] [place], [place] 512561 Clemente Gerardo MD [address] [place] [address] [phone] 10/14/2024 11:00 EST - 10/14/2024 14:35 EST Surgery [facility] OR [address] [place] [address] [phone] Clemente Gerardo MD [address] [place] [address] [phone] Implantation of inflatable penile prosthesis [92284 (CPT??)] 10/17/2024 9:00 EST Telemedicine [address] [phone] Nurse Call, [facility] Urology 10/31/2024 15:00 EST Post-op Visit [address] [phone] Clemente Gerardo MD [address] [place] [address] [phone] 12/06/2024 10:15 EST Office Visit [facility] Ophthalmology [address] [address] Spike Puentes MD [address] [place] [phone] Scheduled Procedures Name Priority Associated Diagnoses Date/Ti me INSERTION, PENILE PROSTHESIS, INFLATABLE, 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 10/14/2024 11:00 EST documented as of this encounter Procedures Procedure Name Priority Date/Time Associated Diagnosis Comments TESTOSTERONE, TOTAL AND FREE Routine 03/23/2017 15:07 EDT documented in this encounter Results * TESTOSTERONE, TOTAL AND FREE (03/23/2017 15:07 EDT) SEX HORMONE BINDING GLOBULIN - [facility] 25.7 21.6 - 113.1 nmol/L 03/23/2017 22:39 EDT [facility] Comment:New re-standardized reagent in use 03/04/17. TESTOSTERONE FREE - [facility] 10.0 3.3 - 11.6 ng/dl 03/23/2017 22:39 EDT [facility] Comment: Test not recommended in patients with plasma protein abnormalities. Test Performed by: [place] [address] Agriculture Department Chair: Joe Geller MD , Ph D TESTOSTERONE TOTAL - [facility] 423 87 - 780 ng/dl 03/23/2017 22:39 EDT [facility] Comment:Testosterone II assa y in use 03/04/17. 03/23/2017 15:0 7 EDT 03/23/2017 15:09 EDT Narrative [facility] - 03/23/2017 22:39 EDT Does PT Have a Latex Allergy? NO Vel Santos MD CHEMISTRY & BLOOD GA S ORDERABLES [facility] documented in this encounter Visit Diagnoses Not on filedocumented in this encounter Care Teams Office Nurse Practitioner Relationship Specialty Start Date End Date Vel Santos MD PCP - General 10/30/11 03/09/23 documented as of this encounter
--- OUTSIDE RECORDS SUMMARY | 2024-07-19 22:15 | XMS_ITS | Encounter Summary ---
Author Organization [facility] Address [address] [place] [address] Care Team Providers Care Melangeur Operator Name Role Phone Vel Santos MD Primary Care Provider Unava ilable Encounter Details Date Type Department Care Team (Late st Contact Info) Description 06/24/2017 Historical Results Only [facility] Lab - Main [address] [address] Hussain Shane MD [address] [place] [phone] Social History Tobacco Use Types Packs/Day [...] [facility] Pre-Surgical Testing [address] [place] [address] 10/14/2024 11:00 EST Hospital Encounter [facility] OR [address] [place] [address] [phone] Clemente Gerardo MD [address] [place] [address] [phone] 10/14/2024 11:00 EST - 10/14/2024 14:35 EST Surgery [facility] OR [address] [place] [address] [phone] Clemente Gerardo MD [address] [place] [address] [phone] Implantation of inflatable penile prosthesis [64864 (CPT??)] 10/17/2024 9:00 EST Telemedicine [facility] Urology [address] [phone] Nurse Call, [facility] Urology 10/31/2024 15:00 EST Post-op Visit [address] [phone] Clemente Gerardo MD [address] [place] [address] [phone] 12/06/2024 10:15 EST Office Visit [facility] Ophthalmology [address] [address] Spike Puentes MD [address] [place] [address] [phone] Scheduled Procedures Name Priority Associated Diagnoses Date/Ti me INSERTION, PENILE PROSTHESIS, INFLATABLE, 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 10/14/2024 11:00 EST documented as of this encounter Procedures Procedure Name Priority Date/Time Associated Diagnosis Comments LIPID PROFILE (INCLUDES CHOLESTEROL, TRIGLYCERIDES, HDL, LDL) Routine 06/24/2017 11:21 EDT documented in this encounter Results * (ABNORMAL) LIPID PROFILE (INCLUDES CHOLESTEROL, TRIGLYCERIDES, HDL, LDL) (06/24/2017 11:21 EDT) Triglyceride 247(H) 35 - 150 mg/dL 06/24/2017 13:09 EDT [facility] Cholesterol 150 120 - 200 mg/dL 06/24/2017 13:09 EDT [facility] Chol/HDL Ratio 4.0 0 - 5.0 06/24/2017 13:09 [facility] Comment: DESIRABLE RATIO IS LESS THAN 4.1 PATIENTS ARE CONSIDERED AT RISK: WOMEN RATIO >5 MEN RATIO >6 FASTING? - [facility] HDL 37(L) 40 - 60 mg/dL 06/24/2017 [facility] LDL CHOLESTEROL - [facility] 64 60 - 100 mg/dL 06/24/2017 13:09 [facility] Non HDL Cholesterol 113 mg/dl 06/24/2017 13:09 [facility] Comment: Desirable: ?Less than 130 Borderline High: ??130-159 High: ? 160-189 Very High: ?Greater than or equal to 190 06/24/2017 11:2 1 EDT 06/24/2017 11:21 EDT Narrative [facility] - 06/24/2017 13:09 EDT Does PT Have a Latex Allergy? NO Hussain Shane MD CHEMISTRY & BLOOD G ORDERABLES [facility] documented in this encounter Visit Diagnoses Not on filedocumented in this encounter Care Teams Melangeur Operator Relationship Specialty Start Date End Date Vel Santos MD PCP - General 10/30/11 03/09/23 documented as of this encounter
--- OUTSIDE RECORDS SUMMARY | 2024-07-19 22:15 | XMS_ITS | Encounter Summary ---
Author Organization [facility] Address [address] [place] [address] Care Team Providers Care Dance Choreographer Name Role Phone Vel Santos MD Primary Care Provider Dave doe Encounter Details Date Type Department Care Team (Latest Contact Info) Description 03/14/2014 8:10 EDT - 03/14/2014 23:59 EDT Hospital Encounter [facility] [address] [place] [address] Unknown, Provider, Discharge Disposition: Home or Self [...] :37 EST documented as of this encounter Medications at Time of Discharge Medication Sig Dispensed Refills Start Date End Date aspirin 325 mg tablet Take 1 Tablet by mouth daily. Ffekz-7-BDN-EPA-Fish Oil 1,000 (120-180) mg capsule Take 1,000 mg by mouth 2 times daily. Alcohol Swabs pads, medicated use as directed prior to Trimix administration 06/13/2011 06/20/2020 alpha lipoic acid 200 mg capsule Take by mouth. 10/20/2019 ALPRAZolam (XANAX) 1 mg tablet Take 1 mg by mouth as needed. 10/20/2019 atorvastatin (LIPITOR) 40 mg tablet Take 40 mg by mouth daily. 10/20/2019 Calcium Citrate 250 mg calcium tablet Take 500 mg by mouth. 1 12/21/2018 cyclobenzaprine (FLEXERIL) 10 mg tablet Take 10 mg by mouth 2 times daily. 10/20/2019 folic acid (FOLVITE) 800 mcg tablet Take 800 mcg by mouth daily. 10/20/2019 Hydrocodone-Acetamino phen 10-660 mg tablet Take by mouth as needed. 10/20/2019 lisinopril (PRINIVIL, ZESTRIL) 5 mg tablet Take 5 mg by mouth daily. 10/20/2019 Magnesium 100 mg tablet Take 80 mg by mouth. 019 metoprolol XL (TOPROL-XL) 100 mg tablet Take 100 mg by mouth daily. 10/20/2019 Miscellaneous Medical [facility] needles gauge: 18 length:, Si.5 in self IM once a week for testosterone 11/09/2013 06/20/2020 omeprazole (PRILOSEC) 20 mg capsule Take 20 mg by mouth daily. 10/20/2019 Zinc 10 mg tablet Take 10 mg by mouth. documented as of this encounter Discharge Disposition Disposition Code Departure Means Destination Home or Self Nursing Home documented in this encounter Plan of Treatment Upcoming Encounters Date Type Department Care Team (Late st Contact Info) Description 10/04/2024 9:50 EST Appointment [facility] Pre-Surgical Testing [address] [place] [address] [phone] 10/14/2024 11:00 EST Hospital Encounter [facility] OR [address] [place] [address] [phone] Clemente Gerardo MD [address] [place] [address] [phone] 10/14/2024 11:00 EST - 10/14/2024 14:35 EST Surgery [facility] OR [address] [place] [phone] Clemente Gerardo MD [address] [place] [address], [place] [phone] Implantation of inflatable penile prosthesis [68046 (CPT??)] 10/17/2024 9:00 EST Telemedicine [address] [phone] Nurse Call, [facility] Urology 10/31/2024 15:00 EST Post-op Visit [address] [phone] Clemente Gerardo MD [address] [phone] 12/06/2024 10:15 EST Office Visit [facility] [address] [place] [address] Spike Puentes MD [address] [place] [phone] Scheduled Procedures Name Priority Associated Diagnoses Date/Ti me INSERTION, PENILE PROSTHESIS, INFLATABLE, 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 10/14/2024 11:00 EST documented as of this encounter Visit Diagnoses Not on filedocumented in this encounter Care Teams Dance Choreographer Relationship Specialty Start Date End Date Vel Santos MD PCP - General 10/30/11 03/09/23 documented as of this encounter
--- OUTSIDE RECORDS SUMMARY | 2024-07-19 22:15 | XMS_ITS | Encounter Summary ---
Author Organization [facility] Address [address] [place] [address] Care Team Providers Care Tack Maker Name Role Phone Vel Santos MD Primary Care Provider Unava ilable Reason for Visit * Reason Comments Follow-up 8m f/u PVD/cotton wo ol spots, right eye/GS/cataracts Encounter Details Date Type Department Care Team (Late st Contact Info) Description 03/02/2017 13:45 EDT Office Visit [facility] Ophthalmology [facility] [address] [place] [address], [place] [phone] Spiek Puentes MD [address] [place] [phone] Social History Tobacco Use Types Packs/Day Years [...] No 03/02/2017 documented as of this encounter Progress Notes * Spike Puentes MD - 03/02/2017 1345 EDT Chief Complaint Patient presents with ??? Follow-up 8m f/u PVD/cotton wool spots, right eye/GS/cataracts HPI The patient is a 66 y.o. male here for complete exam sometimes left eye aches. Has floaters worse in left eye. No double. Vision. Right Eye: Gritty/Foreign Body sensation, Burning, Tearing, Blurred Vision, Pain/Soreness, Mucous /Discharge Left Eye: Gritty/Foreign Body sensation, Burning, Tearing, Blurred Vision, Pain/Soreness, Mucous / Discharge Visual Aid: Current Rx Age Location: Both eyes Pain: 5.0 Quality: Aching Severity: Moderate Duration: Months Timing: Intermittent Lasts: Hours Context: Pt here for f/u visit PVD/Cotton wool spots - right eye. He has been having FB sensation, blurriness with computer use, tearing, burning, crusty discharge & on & off ache in his eyes. Uses rewetting drops 2-3x daily. Modifying factors: Associated Signs & Symptoms: Attestation: ROS Constitutional: NL ENT/Mouth (undergoing sleep study) Cardiovascular: High Blood Pressure, High Cholesterol, Short of breath with Exercise Respiratory: Breathless Gastrointestinal: Heartburn (GERD) Genitourinary: NL Musculoskeletal: Muscle Pain, Joint Pain Integumentary: Skin Rash (ecezma) Neurologic: (CIDP) Psychiatric: Depression Endocrine: NL Hematologic: NL Immunologic: Drug Allergy (dogs) Wheel Blocker: NL Exposures: None Other: Attestation: Base Eye Exam Visual Acuity (Snellen - Linear) Right Left Dist cc 20/20 20/200 Near cc J1+ Correction: Glasses Tonometry (Applanation, 14:21) Right Left Pressure 17 22 Pupils Dark Light APD Right 5 4 None Left 5 4 none Visual Lovett (Counting fingers) Right Left Result Full Full Extraocular Movement Right Left Result Full Full Neuro/Psych Oriented x3: Yes Mood/Affect: Normal Slit Lamp and Fundus Exam Slit Lamp Exam Right Left Lids/Lashes Normal Normal Conjunctiva/Sclera White and quiet, 1+ staining nasal w/ LG small cyst nasal, 1+ staining nasal w/LG Cornea Clear Clear Anterior Chamber Deep and quiet Deep and quiet Iris Round and reactive Round and reactive Lens 1+ Nuclear sclerosis 1+ Nuclear sclerosis Fundus Exam Right Left Vitreous Mohamud's sign negative , Posterior vitreous detachment Asteroid hyalosis Disc Normal Normal C/D Ratio 0.5 0.55 Macula trace Epiretinal membrane Normal Vessels Normal Normal Periphery Normal Normal Refraction Wearing Rx Sphere Cylinder Iredell Add Right -1.00 +1.25 030 +3.00 Left -1.25 +1.25 161 +3.00 Type: Bifocal Manifest Refraction (Auto) Sphere Cylinder Iredell Dist Right -0.25 +1.50 025 20/20 Left -1.50 +2.25 150 20/200 DIAGNOSTIC TESTS: Indication: glaucoma suspect OCT rNFL: Right: signal strength: 8/10 Avg thickness: 89 no thinning Left: signal strength: 4/10 Avg thickness: 58 thinning all but temporal, significant artifact due to asteroid hyalosis IMPRESSION & PLAN: 1. Glaucoma suspect -IOP L>R. -6 months IOP check and HVF 24-2 ?? 2. Cataract, both eyes Not visually significant -Monitor periodically ?? 3. Amblyopia, left eye -No treatment -Advised time clock inspector glasses wear 4. Dry eye syndrome, both eyes -Discussed contributing factors -Recommend proactive use of artificial tears 3-4 times daily 5. Posterior vitreous detachment, right eye Stable, monitor periodically 6. Asteroid Hyalosis, left eye Stable. I have reviewed the patient's past medical, family, social and surgical history. I have also reviewed the patient's medications, allergies, and problem list. I performed my own HPI and have reviewed the tech's ROS as well. I completed this exam personally. Spike Puentes MD I am scribing for Spike Puentes MD, while he is personally performing the service. FAMILIA Brink Patient Education Topic: Glaucoma suspect Method: Verbal Taught to: Patient Barriers: None Outcomes: independent Signature: Spike Puentes MD documented in this encounter Plan of Treatment Upcoming Encounters Date Type Department Care Team (Late st Contact Info) Description 10/04/2024 9:50 EST Appointment [facility] Pre-Surgical Testing [address] [place] [address] 10/14/2024 11:00 EST Hospital Encounter [facility] OR [address] [place], [place] 9[address] Clemente Gerardo MD [address] [place] [address] [phone] 10/14/2024 11:00 EST - 10/14/2024 14:35 EST Surgery [facility] OR [address] [place] [address] [phone] Clemente Gerardo MD [address] [place] [address] [phone] Implantation of inflatable penile prosthesis [10401 (CPT??)] 10/17/2024 9:00 EST Telemedicine [address] [phone] Nurse Call, [facility] Urology 10/31/2024 15:00 EST Post-op Visit [address] [phone] Clemente Gerardo MD [address] [place] [address] [phone] 12/06/2024 10:15 EST Office Visit [facility] Ophthalmology [address] [address] Spike Puentes MD [address] [place] [address] [phone] Scheduled Procedures Name Priority Associated Diagnoses Date/Ti me INSERTION, PENILE PROSTHESIS, INFLATABLE, 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 10/14/2024 11:00 EST documented as of this encounter Visit Diagnoses Diagnosis Glaucoma suspect, bilateral- Primary Posterior vitreous detachment, right Senile nuclear sclerosis, right Senile nuclear sclerosis, left Amblyopia of eye, left Dry eye Tear film insufficiency, unspecified Erectile dysfunction after radical prostatectomy documented in this encounter Eye Exam Visual Acuity (Snellen - Linear) Right eye Left eye Dist cc 20/20 20/200 Near cc J1+ Correction: Glasses Tonometry (Applanation, 14:21) Right eye Left eye Pressure 17 22 Pupils Dark Light APD Right eye 5 4 None Left eye 5 4 none Visual Lovett (Counting fingers) Right eye Left eye Full Full Extraocular Movement Right eye Left eye Full Full Neuro/Psych Oriented x3: Yes Mood/Affect: Normal Slit Lamp Exam Right eye Left eye Lids/Lashes Normal Normal Conjunctiva/Sclera White and quiet, 1+ staining nasal w/ LG small cyst nasal, 1+ staining nasal w/LG Cornea Clear Clear Anterior Chamber Deep and quiet Deep and quiet Iris Round and reactive Round and sharmila ctive Lens 1+ Nuclear sclerosis 1+ Nuclear sclerosis Vitreous Portage's sign negati ve , Posterior vitreous detachment Asteroid hyalosis Fundus Exam Right eye Left eye Disc Normal Normal C/D Ratio 0.5 0.55 Macula trace Epiretinal membrane Normal Vessels Normal Normal Periphery Normal Normal Wearing Rx Sphere Cylinder Iredell Add Right eye -1.00 +1.25 030 +3.00 Left eye -1.25 +1.25 161 +3.00 Type: Bifocal Manifest Refraction (Auto) Sphere Cylinder Iredell Dist VA Right eye -0.25 +1.50 025 20/20 Left eye -1.50 +2.25 150 20/200 Care Teams Tack Maker Relationship Specialty Start Date End Date Vel Santos MD PCP - General 10/30/11 03/09/23 documented as of this encounter
--- OUTSIDE RECORDS SUMMARY | 2024-07-19 22:15 | XMS_ITS | Encounter Summary ---
Author Organization [facility] Address [address] [place] [address] Care Team Providers Care Forepart Reducer Name Role Phone Vel Santos MD Primary Care Provider Unava ilable Reason for Visit * Reason Comments Follow-up PVD, right eye / Cot ton wool spot, right eye Encounter Details Date Type Department Care Team (Late st Contact Info) Description 07/25/2016 9:00 EDT Office Visit [facility] Ophthalmology [facility] [address] [place], [place] [phone] Spike Puentes MD [address] [place] [phone] Social History Tobacco Use Types Packs/Day Years [...] No 07/25/2016 documented as of this encounter Progress Notes * Spike Puentes MD - 07/25/2016 1009 EDT Chief Complaint Patient presents with ??? Follow-up PVD, right eye / Cotton wool spot, right eye HPI The patient is a 66 y.o. male here for follow up. He has noticed the floater in the right eye less,no flashes, no pain. Right Eye: Floaters Left Eye: Blurred Vision Visual Aid: Glasses Current Rx Age Location: Left eye Pain: Quality: Blurry Severity: Severe Duration: Years Timing: Constant Lasts: Continuous Context: Has not noticed floater in the right eye as much, no flashes of light, no pain. Modifying factors: Associated Signs & Symptoms: Attestation: ROS Constitutional: NL ENT/Mouth Hearing Loss Cardiovascular: High Blood Pressure, High Cholesterol Respiratory: NL Gastrointestinal: NL Genitourinary: NL Musculoskeletal: Integumentary: Skin Rash (excema) Neurologic: NL Psychiatric: Depression Endocrine: NL Hematologic: NL Immunologic: Drug Allergy, Food Allergy (allergic to swordfish) Clinical Scientist: Exposures: None Other: Attestation: Base Eye Exam Visual Acuity (Snellen - Linear) Right Left Dist cc 20/20 20/400 Tonometry (Applanation, 9:33) Right Left Pressure 18 20 Pupils Pupils Right PERRL Left PERRL Visual Lovett (Counting fingers) Right Left Result Full Full Extraocular Movement Right Left Result Full Full Neuro/Psych Oriented x3: Yes Mood/Affect: Normal Dilation Both eyes: 1.0% Mydriacyl, 2.5% Phenylephrine @ 9:34 Slit Lamp and Fundus Exam Slit Lamp Exam Right Left Lids/Lashes Normal Normal Conjunctiva/Sclera White and quiet White and quiet Cornea Clear Clear Anterior Chamber Deep and quiet Deep and quiet Iris Round and reactive Round and reactive Lens 1+ Nuclear sclerosis 1+ Nuclear sclerosis Fundus Exam Right Left Vitreous Britton's sign negative, Andrews ring Asteroid hyalosis Disc Normal Normal C/D Ratio 0.55 0.5 Macula trace Epiretinal membrane Normal Vessels Normal Normal Periphery Normal, flat to 360 SD Normal DIAGNOSTIC TESTS: IMPRESSION & PLAN: 1. Posterior vitreous detachment, right eye No retinal breaks or tears on 360 degree scleral depression -Discussed signs/symptoms of retinal detachment and the patient knows to call/return if they occur -Return as scheduled ?? 2. Cotton wool spot, right eye -resolved, will continue to monitor -Patient reports that his work up has been negative -Return in 6-8 months 3. Glaucoma suspect -IOPs stable -Will recheck testing in 6 months ?? 4. Cataract, both eyes Not visually significant -Monitor periodically ?? 5. Amblyopia, left eye -No treatment -Advised safe deposit attendant glasses wear I have reviewed the patient's [...] the service. JOZEF Caruso Patient Education Topic: follow up Method: Verbal Taught to: Patient Barriers: None Outcomes: independent Signature: Spike Puentes MD documented in this encounter Plan of Treatment Upcoming Encounters Date Type Department Care Team (Late st Contact Info) Description 10/04/2024 9:50 EST Appointment [facility] Pre-Surgical Testing [address] [place] [address] [phone] 10/14/2024 11:00 EST Hospital Encounter [facility] OR [address] [place] [address] [phone] Clemente Gerardo MD [address] [place] [address] [phone] 10/14/2024 11:00 EST - 10/14/2024 14:35 EST Surgery [facility] OR [address] [place] [address] [phone] Clemente Gerardo MD [address] [place] [address] [phone] Implantation of inflatable penile prosthesis [93407 (CPT??)] 10/17/2024 9:00 EST Telemedicine [facility] Urology - [address] [phone] Nurse Call, [facility] Urology 10/31/2024 15:00 EST Post-op Visit [facility] Urology - [facility] [address] [place], [place] 7[address] Clemente Gerardo MD [address] [facility], [address] [place] [phone] 12/06/2024 10:15 EST Office Visit [facility] Ophthalmology [facility] [address] [place], [place] [phone] Spike Puentes MD [address] [place] [phone] Scheduled Procedures Name Priority Associated Diagnoses Date/Ti me INSERTION, PENILE PROSTHESIS, INFLATABLE, 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 10/14/2024 11:00 EST documented as of this encounter Visit Diagnoses Diagnosis Posterior vitreous detachment, right- Primary Cotton wool spots Retinal edema ERM OD (epiretinal membrane, right eye) Macular puckering of retina Glaucoma suspect, bilateral Senile nuclear sclerosis, right Senile nuclear sclerosis, left Erectile dysfunction after radical prostatectomy documented in this encounter Eye Exam Visual Acuity (Snellen - Linear) Right eye Left eye Dist cc 20/20 20/400 Tonometry (Applanation, 9:33) Right eye Left eye Pressure 18 20 Pupils Pupils Right eye PERRL Left eye PERRL Visual Lovett (Counting fingers) Right eye Left eye Full Full Extraocular Movement Right eye Left eye Full Full Neuro/Psych Oriented x3: Yes Mood/Affect: Normal Dilation Both eyes: 1.0% Mydriacyl, 2 .5% Phenylephrine @ 9:34 Slit Lamp Exam Right eye Left eye Lids/Lashes Normal Normal Conjunctiva/Sclera White and quiet White and sindi et Cornea Clear Clear Anterior Chamber Deep and quiet Deep and quiet Iris Round and reactive Round and sharmila ctive Lens 1+ Nuclear sclerosis 1+ Nuclear sclerosis Vitreous Mohamud's sign negative, Andrews ri ng Asteroid hyalosis Fundus Exam Right eye Left eye Disc Normal Normal C/D Ratio 0.55 0.5 Macula trace Epiretinal membrane Normal Vessels Normal Normal Periphery Normal, flat to 360 SD Normal Care Teams Forepart Reducer Relationship Specialty Start Date End Date Vel Santos MD PCP - General 10/30/11 03/09/23 documented as of this encounter
--- OUTSIDE RECORDS SUMMARY | 2024-07-19 22:15 | XMS_ITS | Encounter Summary ---
Author Organization [facility] Address [address] [place] [address] Care Team Providers Care Educational Institution President Name Role Phone Vel Santos MD Primary Care Provider Unava ilable Reason for Visit * Reason Comments Follow-up HVF, IOP, Pachemetry Encounter Details Date Type Department Care Team (Late st Contact Info) Description 08/19/2013 14:30 EDT Office Visit [facility] Ophthalmology [address] [address] Spike Puentes MD [address] [place] [phone] Social History Tobacco Use Types Packs/Day Years [...] Progress Notes * Spike Puentes MD - 08/19/2013 1611 EDT Chief Complaint Patient presents with ??? Follow-up HVF, IOP, Pachemetry HPI The patient is a 63 y.o. male Right Eye: Pain/Soreness;Blurred Vision;Tearing;Problem with Night Vision Left Eye: Pain/Soreness;Blurred Vision;Floaters;Tearing;Problem with Night Vision Visual Aid: Glasses Current Rx Age > 2 years Location: Both eyes Pain: 7 Quality: Stabbing Severity: Moderate Duration: Weeks Timing: Fluctuates Lasts: Minutes Context: PT has been noticing past 6 weeks alot more pressure in both eyes. Puts hands over & allpies a little pressure & hurts then feels better. Blurry viison Dist&Near Modifying factors: Associated Signs & Symptoms: Attestation: ROS Constitutional: NL ENT/Mouth Cardiovascular: High Blood Pressure Respiratory: Gastrointestinal: Genitourinary: Musculoskeletal: Integumentary: Neurologic: Psychiatric: Endocrine: Hematologic: Immunologic: Motorman/Woman: Exposures: None Other: Attestation: Base Eye Exam Visual Acuity Right Left Dist cc 20/20 -3 20/200 Dist ph cc 20/20 NI Near cc J1+ 20/400 Method: Snellen - Linear Tonometry Right Left Pressure 18 19 Method: Applanation Time: 15:18 Tonometry #2 Right Left Pressure 16 20 Method: Tonopen Time: 15:24 Tonometry #3 Right Left Pressure 14 19 Method: Applanation Time: 16:04 Pachymetry Right Left Thickness 600 596 Date: 08/19/2013 Pupils Pupils Dark Light Right PERRL 4 3 Left PERRL 4 3 Visual Lovett Right Left Result Full Full Method: Counting fingers Extraocular Movement Right Left Result Full Full Neuro/Psych Oriented x3: Yes Mood/Affect: Normal Slit Lamp and Fundus Exam Slit Lamp Exam Right Left Lids/Lashes 1+ Blepharitis 1+ Blepharitis Conjunctiva/Sclera Pinguecula, lateral White and quiet Cornea Clear Clear Anterior Chamber Deep and quiet Deep and quiet Iris Round and reactive Round and reactive Lens 1+ Nuclear sclerosis 1+ Nuclear sclerosis Vitreous Normal Asteroid hyalosis Fundus Exam Right Left Disc optic disc 1.9mm, no heme optic disc 1.8mm, no heme C/D Ratio 0.6 0.6 Comments: undilated DIAGNOSTIC TESTS: HVF: Right: 09/12 FL, unreliable, otherwise full Left: 8% FP mostly reliable, full IMPRESSION & PLAN: 1. Glaucoma suspect with optic nerve cupping and elevated IOP. CCT: 600/596 Family history: none Tmax: Several normal VFs in past OHTS risk calculator: 5.6% No need for treatment yet. -Return in April 2014, for complete exam, HVF 24-2 & RNFL OCT 2. Amblyopia, left eye No treatment. I have reviewed the patient's past medical, family, social and surgical history. I have also reviewed the patient's medications, allergies, and problem list. I performed my own HPI and have reviewed the tech's ROS as well. I personally completed this exam myself. Spike Puentes MD I am scribing for Spike Puentes MD, while he is personally performing the service. CATHLEEN Caruso Patient Education Topic: Glaucoma suspect Method: Verbal Taught to: Patient Barriers: None Outcomes: independent Signature: Spike Puentes MD documented in this encounter Plan of Treatment Upcoming Encounters Date Type Department Care Team (Late st Contact Info) Description 10/04/2024 9:50 EST Appointment [facility] Pre-Surgical Testing [address] [place] [address] [phone] 10/14/2024 11:00 EST Hospital Encounter [facility] OR [address] [place] [address] [phone] Clemente Gerardo MD [address] [place] [address] [phone] 10/14/2024 11:00 EST - 10/14/2024 14:35 EST Surgery [facility] OR [address] [place] [address] [phone] Clemente Gerardo MD [address] [place] [address] [phone] Implantation of inflatable penile prosthesis [10466 (CPT??)] 10/17/2024 9:00 EST Telemedicine [facility] Urology - [address] [phone] Nurse Call, [facility] Urology 10/31/2024 15:00 EST Post-op Visit [facility] Urology - [facility] [address] [place], [place] [address] Clemente Gerardo MD [address] [facility], [address] [place] [phone] 12/06/2024 10:15 EST Office Visit [facility] Ophthalmology [facility] [address] [place] [address] Spike Puentes MD [address] [place] [phone] Scheduled Procedures Name Priority Associated Diagnoses Date/Ti me INSERTION, PENILE PROSTHESIS, INFLATABLE, 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 10/14/2024 11:00 EST documented as of this encounter Visit Diagnoses Diagnosis Glaucoma suspect- Primary Preglaucoma, unspecified Erectile dysfunction after radical prostatectomy documented in this encounter Eye Exam Visual Acuity (Snellen - Linear) Right eye Left eye Dist cc 20/20 -3 20/200 Dist ph cc 20/20 NI Near cc J1+ 20/400 Tonometry #1 (Applanation, 15:18) Right eye Left eye Pressure 18 19 Tonometry #2 (Tonopen, 15:24) Right eye Left eye Pressure 16 20 Tonometry #3 (Applanation, 16:04) Right eye Left eye Pressure 14 19 Pachymetry (08/19/2013) Right eye Left eye Thickness 600 596 Pupils Pupils Dark Light Right eye PERRL 4 3 Left eye PERRL 4 3 Visual Lovett (Counting fingers) Right eye Left eye Full Full Extraocular Movement Right eye Left eye Full Full Neuro/Psych Oriented x3: Yes Mood/Affect: Normal Slit Lamp Exam Right eye Left eye Lids/Lashes 1+ Blepharitis 1+ Blepharitis Conjunctiva/Sclera Pinguecula, lateral White and quiet Cornea Clear Clear Anterior Chamber Deep and quiet Deep and quiet Iris Round and reactive Round and sharmila ctive Lens 1+ Nuclear sclerosis 1+ Nuclear sclerosis Vitreous Normal Asteroid hyalosi s Fundus Exam Right eye Left eye Disc optic disc 1.9mm, no heme optic disc 1.8mm, no heme C/D Ratio 0.6 0.6 undilated Care Teams Educational Institution President Relationship Specialty Start Date End Date Vel Santos MD PCP - General 10/30/11 03/09/23 documented as of this encounter
--- OUTSIDE RECORDS SUMMARY | 2024-07-19 22:15 | XMS_ITS | Encounter Summary ---
Author Organization [facility] Address [address] [place] [address] Care Team Providers Care Moving Consultant Name Role Phone Vel Santos MD Primary Care Provider Unava ilable Encounter Details Date Type Department Care Team (Late st Contact Info) Description 06/24/2017 Historical Results Only [facility] Lab - Main [address] [address] Hussain Shane MD [address] [place] [phone] Social History Tobacco Use Types Packs/Day [...] [facility] Pre-Surgical Testing [address] [place] [address] 10/14/2024 11:00 EST Hospital Encounter [facility] OR [address] [place] [address] [phone] Clemente Gerardo MD [address] [place] [address] [phone] 10/14/2024 11:00 EST - 10/14/2024 14:35 EST Surgery [facility] OR [address] [place] [address] [phone] Clemente Gerardo MD [address] [place] [address] [phone] Implantation of inflatable penile prosthesis [61315 (CPT??)] 10/17/2024 9:00 EST Telemedicine [facility] Urology [address] [phone] Nurse Call, [facility] Urology 10/31/2024 15:00 EST Post-op Visit [address] [phone] Clemente Gerardo MD [address] [place] [address] [phone] 12/06/2024 10:15 EST Office Visit [facility] Ophthalmology [address] 524161 Spike Puentes MD [address] [place] [phone] Scheduled Procedures Name Priority Associated Diagnoses Date/Ti me INSERTION, PENILE PROSTHESIS, INFLATABLE, 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 10/14/2024 11:00 EST documented as of this encounter Procedures Procedure Name Priority Date/Time Associated Diagnosis Comments HEPATIC FUNCTION PANEL (ALB,ALK PHOS,ALT,AST,DBIL,T OT CHRISTIANNE,TOT PROT) Routine 06/24/2017 11:21 EDT documented in this encounter Results * (ABNORMAL) HEPATIC FUNCTION PANEL (ALB,ALK PHOS,ALT,AST,DBIL,TOT CHRISTIANNE,TOT PROT) (06/24/2017 11:21 EDT) Albumin % 3.8 3.4 - 5.0 g/dL 06/24/2017 13:09 [facility] ALKALINE PHOSPHATASE [place] [facility] [place] 42 - 122 U/L 06/24/2017 13:09 [facility] BILIRUBIN TOTAL 1.0 0.0 - 1.0 mg/dL 06/24/2017 13:09 [facility] TOTAL PROTEIN [place] [facility] 7.8 6.4 - 8.2 gm/dl 06/24/2017 13:09 [facility] SGOT/AST [place] [facility] 39(H) 10 - 37 U/L 06/24/2017 13:09 [facility] SGPT/ALT [place] [facility] 76 12 - 78 U/L 06/24/2017 13:09 [facility] BILIRUBIN DIRECT [place] [facility] 0.2 0.0 - 0.2 mg/dL 06/24/2017 13:09 [facility] 06/24/2017 11:2 1 EDT 06/24/2017 11:21 EDT Narrative [facility] - 06/24/2017 13:09 EDT Does PT Have a Latex Allergy? NO Hussain Shane MD CHEMISTRY & BLOOD G ORDERABLES [facility] documented in this encounter Visit Diagnoses Not on filedocumented in this encounter Care Teams Moving Consultant Relationship Specialty Start Date End Date Vel Santos MD PCP - General 10/30/11 03/09/23 documented as of this encounter
--- OUTSIDE RECORDS SUMMARY | 2024-07-19 22:15 | XMS_ITS | Encounter Summary ---
Author Organization [facility] Address [address] [place] [address] Care Team Providers Care Wood Die Maker Name Role Phone Vel Santos MD Primary Care Provider Unava ilable Encounter Details Date Type Department Care Team (Late st Contact Info) Description 06/12/2017 Historical Results Only [facility] Lab - Main [address] [address] Hussain Shane MD [address] [place] [phone] Social History Tobacco Use Types Packs/Day [...] Appointment [facility] Pre-Surgical Testing [address] [place] [address] 10/14/2024 11:00 EST Hospital Encounter [facility] OR [address] [place] [address] [phone] Clemente Gerardo MD [address] [place] [address] [phone] 10/14/2024 11:00 EST - 10/14/2024 14:35 EST Surgery [facility] OR [address] [place] [address] [phone] Clemente Gerardo MD [address] [place] [address] [phone] Implantation of inflatable penile prosthesis [29443 (CPT??)] 10/17/2024 9:00 EST Telemedicine [facility] Urology [address] [phone] Nurse Call, [facility] Urology 10/31/2024 15:00 EST Post-op Visit [address] [phone] Clemente Gerardo MD [address] [place] [address] [phone] 12/06/2024 10:15 EST Office Visit [facility] Ophthalmology [address] [address] Spike Puentes MD [address] [place] [address] [phone] Scheduled Procedures Name Priority Associated Diagnoses Date/Ti me INSERTION, PENILE PROSTHESIS, INFLATABLE, 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 10/14/2024 11:00 EST documented as of this encounter Procedures Procedure Name Priority Date/Time Associated Diagnosis Comments COMPLETE BLOOD COUNT WITH DIFFERENTIAL (AUTO) Routine 06/12/2017 11:25 EDT BASIC METABOLIC PANEL (BMP) Routine 06/12/2017 11:25 EDT documented in this encounter Results * (ABNORMAL) BASIC METABOLIC PANEL (BMP) (06/12/2017 11:25 EDT) [facility] - [facility] 14 7 - 18 mg/dL 06/12/2017 13:27 [facility] CALCIUM - [facility] 9.0 8.5 - 10.1 mg/dL 06/12/2017 13:27 [facility] Chloride 105 98 - 107 mEq/L 06/12/2017 13:27 [facility] CO2 Total 26 21 - 32 mEq/L 06/12/2017 13:27 [facility] CREATININE 0.94 0.5 - 1.3 mg/dL 06/12/2017 13:27 [facility] eGFR >60 06/12/2017 13:27 [facility] Comment: Chronic renal impairment is defined as GFR <60 Multiply result by 1.210 for patients. Anion Gap 9 5 - 15 06/12/2017 13:27 [facility] GLUCOSE - [facility] 68(L) 70 - 100 mg/dL 06/12/2017 13:27 [facility] Potassium 4.1 3.5 - 5.0 mEq/L 06/12/2017 13:27 [facility] Sodium 139 135 - 145 mEq/L 06/12/2017 13:27 [facility] 06/12/2017 11:2 5 EDT 06/12/2017 11:25 EDT Narrative [facility] - 06/12/2017 13:27 EDT Does PT Have a Latex Allergy? NO Hussain Shane MD CHEMISTRY & BLOOD G ORDERABLES [facility] * (ABNORMAL) COMPLETE BLOOD COUNT WITH DIFFERENTIAL (AUTO) (06/12/2017 11:25 EDT) ABSOLUTE NEUTROPHIL COUN - [facility] 2.05 1.7 - 7.0 10e3/ul 06/12/2017 12:39 [facility] BASO # - [facility] 0.01 0.0 - 0.3 10e3/uL 06/12/2017 12:39 [facility] BASO % - [facility] 0 0 - 2 % 06/12/2017 12:39 [facility] EOS # - [facility] 0.06 0.05 - 0.5 10e3/uL 06/12/2017 12:39 [facility] EOS % - [facility] 1 0 - 5 % 06/12/2017 12:39 [facility] GRAN % - [facility] 44 40 - 80 % 06/12/2017 12:39 [facility] HEMATOCRIT - [facility] 48.5 36.0 - 52.0 % 06/12/2017 12:39 [facility] HEMOGLOBIN - [facility] 16.3 13.7 - 17.5 g/dl 06/12/2017 12:39 [facility] IG# - [facility] 0.01 0 - 0.07 10e3/uL 06/12/2017 12:39 [facility] IG% - [facility] 0.2 0 - 0.9 % 06/12/2017 12:39 [facility] LYMPH # - [facility] 1.95 0.9 - 2.9 10e3/uL 06/12/2017 12:39 [facility] LYMPH% - [facility] 42(H) 20 - 40 % 06/12/2017 12:39 [facility] MEAN CORPUSCULAR HGB - [facility] 30.9 26 - 34 pg 06/12/2017 12:39 [facility] MEAN CORPUSCULAR HGB CONC - [facility] 33.6 31 - 36 g/dL 06/12/2017 12:39 [facility] MEAN CELL VOLUME - [facility] 91.9 77 - 100 fl 06/12/2017 12:39 [facility] MONO # - [facility] 0.61 0.3 - 0.9 10e3/uL 06/12/2017 12:39 EDT [facility] MONO% - [facility] 13(H) 0 - 12 % 06/12/2017 12:39 EDT [facility] PLATELET COUNT 176 150 - 400 10e3/ul 06/12/2017 12:39 EDT [facility] RED BLOOD COUNT - [facility] 5.28 4.3 - 5.7 10e6/ul 06/12/2017 12:39 EDT [facility] RED CELL DISTRI WIDTH - [facility] 14.6 11.8 - 15.6 % 06/12/2017 12:39 EDT [facility] WHITE BLOOD COUNT - [facility] 4.7 3.5 - 10.5 10e3/ul 06/12/2017 12:39 T [facility] 06/12/2017 11:2 5 EDT 06/12/2017 11:25 EDT Narrative [facility] - 06/12/2017 12:39 EDT Does PT Have a Latex Allergy? NO Hussain Shane MD HEMATOLOGY & PF4 OR DERABLES [facility] documented in this encounter Visit Diagnoses Not on filedocumented in this encounter Care Teams Wood Die Maker Relationship Specialty Start Date End Date Vel Santos MD PCP - General 10/30/11 03/09/23 documented as of this encounter
--- OUTSIDE RECORDS SUMMARY | 2024-07-19 22:15 | XMS_ITS | Encounter Summary ---
Author Organization [facility] Address [address] [place] [address] Care Team Providers Care Foreign Banknote Teller Trader Name Role Phone Vel Santos MD Primary Care Provider Unava ilable Reason for Visit * Reason Comments Follow-up Patient here for com plete exam, HVF and RNFL OCT, Glaucoma suspect, Amblyopia left eye w/ esotropia, Cataract. Encounter Details Date Type Department Care Team (Late st Contact Info) Description 12/18/2015 14:15 EST Office Visit [facility] Ophthalmology [facility] [address] [place] [address] Spike Puentes MD [address] [place] [phone] Social History Tobacco Use Types Packs/Day Years [...] visiting a doctor's office or shopping? No 12/18/2015 documented as of this encounter Progress Notes * Spike Puentes MD - 12/18/2015 1527 EST Chief Complaint Patient presents with ??? Follow-up Patient here for complete exam, HVF and RNFL OCT, Glaucoma suspect, Amblyopia left eye w/ esotropia, Cataract. HPI The patient is a 65 y.o. male glaucoma suspect here for HVf 24-2 & complete exam, Amblyopia left eye. He has itchiness and burning in his eyes. he has no eye pain, double vision, or new flashes/floaters. Right Eye: Itching, Burning, Tearing, Blurred Vision Left Eye: Itching, Burning, Tearing, Blurred Vision Visual Aid: Current Rx Age Location: Pain: 0 - No pain Quality: Severity: Duration: Timing: Lasts: Context: Patient notes has itching burning and tearing. Uses OTC drops and helps. Does do warm compresses but for sinus. Modifying factors: Associated Signs & Symptoms: Attestation: ROS Constitutional: ENT/Mouth Cardiovascular: High Blood Pressure Respiratory: Gastrointestinal: Genitourinary: Musculoskeletal: Integumentary: Neurologic: Psychiatric: Endocrine: Hematologic: Immunologic: Technical Rep: Exposures: Other: Attestation: Base Eye Exam Visual Acuity (Snellen - Linear) Right Left Dist cc 20/20 20/200 Near sc J5 20/800 Correction: Glasses Tonometry (Applanation, 15:12) Right Left Pressure 17 23 Pupils Pupils Light APD Right PERRL 5 None Left PERRL 5 None Visual Lovett (Counting fingers) Right Left Result Full Full Extraocular Movement Right Left Result Full Full Left esotropia Neuro/Psych Oriented x3: Yes Mood/Affect: Normal Dilation Both eyes: 1.0% Mydriacyl, 2.5% Phenylephrine @ 15:16 Slit Lamp and Fundus Exam Slit Lamp Exam Right Left Lids/Lashes Normal Normal Conjunctiva/Sclera White and quiet White and quiet Cornea Clear Clear Anterior Chamber Deep and quiet Deep and quiet Iris Round and reactive Round and reactive Lens 1+ Nuclear sclerosis 1+ Nuclear sclerosis Fundus Exam Right Left Vitreous Normal Asteroid hyalosis Disc Normal, no heme Normal C/D Ratio 0.65 0.65 Macula Normal Normal Vessels Normal Normal Periphery Normal Normal Refraction Wearing Rx Sphere Cylinder Delton Right -1.00 +1.25 031 Left -1.25 +1.25 165 Type: SVL dist Patient wears OTC readers Manifest Refraction Patient happy with current RX no MR done today. DIAGNOSTIC TESTS: Indication: glaucoma suspect OCT rNFL: Right: signal strength: 9/10 avg thickness: 87 no thinning Left: signal strength: 4/10 avg thickness: 60 (artifactually thin superior and inferior) Indication: glaucoma suspect HVF: Right: reliable (1/14 FL), full Left: reliable (3% FN), full, scatter IMPRESSION & PLAN: 1. Glaucoma suspect with optic nerve cupping and elevated IOP. CCT: 600/596 Family history: none Tmax: -HVF today is normal -rNFL OCT only shows artifact in the left eye. Continue to monitor off of eye drops. -Return 1 year with OCT and HVF 2. Cataract, both eyes Not visually significant -Monitor periodically 3. Amblyopia, left eye No treatment I have reviewed the patient's past medical, [...] Appointment [facility] Pre-Surgical Testing [address] [place] [phone] 10/14/2024 11:00 EST Hospital Encounter [facility] OR [address] [place], [place] [address] Clemente Gerardo MD [address] [place] [address], [address] [place] [phone] 10/14/2024 11:00 EST - 10/14/2024 14:35 EST Surgery [facility] OR [address] [place] [address] [phone] Clemente Gerardo MD [address] [place] [address] [phone] Implantation of inflatable penile prosthesis [05332 (CPT??)] 10/17/2024 9:00 EST Telemedicine [facility] Urology [address] [phone] Nurse Call, [facility] Urology 10/31/2024 15:00 EST Post-op Visit [facility] [address] [phone] Clemente Gerardo MD [address] [place] [address] [phone] 12/06/2024 10:15 EST Office Visit [facility] Ophthalmology [address] [address] Spike Puentes MD [address] [place] [address] [phone] Scheduled Procedures Name Priority Associated Diagnoses Date/Ti me INSERTION, PENILE PROSTHESIS, INFLATABLE, 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 10/14/2024 11:00 EST documented as of this encounter Visit Diagnoses Diagnosis Glaucoma suspect, bilateral- Primary Nuclear cataract of both eyes Amblyopia of eye, left Erectile dysfunction after radical prostatectomy documented in this encounter Eye Exam Visual Acuity (Snellen - Linear) Right eye Left eye Dist cc 20/20 20/200 Near sc J5 20/800 Correction: Glasses Tonometry (Applanation, 15:12) Right eye Left eye Pressure 17 23 Pupils Pupils Light APD Right eye PERRL 5 None Left eye PERRL 5 None Visual Lovett (Counting fingers) Right eye Left eye Full Full Extraocular Movement Right eye Left eye Full Full Left esotropia Neuro/Psych Oriented x3: Yes Mood/Affect: Normal Dilation Both eyes: 1.0% Mydriacyl, 2 .5% Phenylephrine @ 15:16 Slit Lamp Exam Right eye Left eye Lids/Lashes Normal Normal Conjunctiva/Sclera White and quiet White and sindi et Cornea Clear Clear Anterior Chamber Deep and quiet Deep and quiet Iris Round and reactive Round and sharmila ctive Lens 1+ Nuclear sclerosis 1+ Nuclear sclerosis Vitreous Normal Asteroid hyalosi s Fundus Exam Right eye Left eye Disc Normal, no heme Normal C/D Ratio 0.65 0.65 Macula Normal Normal Vessels Normal Normal Periphery Normal Normal Wearing Rx Sphere Cylinder Delton Right eye -1.00 +1.25 031 Left eye -1.25 +1.25 165 Type: SVL dist Patient wears OTC readers Manifest Refraction Patient happy with current RX no MR done today. Care Teams Foreign Banknote Teller Trader Relationship Specialty Start Date End Date Vel Santos MD PCP - General 10/30/11 03/09/23 documented as of this encounter
--- OUTSIDE RECORDS SUMMARY | 2024-07-19 22:15 | XMS_ITS | Encounter Summary ---
Author Organization [facility] Address [address] [place] [address] Care Team Providers Care Building Energy Consultant Name Role Phone Vel Santos MD Primary Care Provider Unava ilable Encounter Details Date Type Department Care Team (Late st Contact Info) Description 10/31/2015 Historical Results Only [facility] Radiology Results [address] [place] [address] Vel Santos MD Social History Tobacco Use [...] Appointment [facility] Pre-Surgical Testing [address] [place] [address] [phone] 10/14/2024 11:00 EST Hospital Encounter [facility] OR [address] [place], [place] [phone] Clemente Gerardo MD [address] [facility], Level [address] [place] [phone] 10/14/2024 11:00 EST - 10/14/2024 14:35 EST Surgery [facility] OR [address] [place] [address] [phone] Clemente Gerardo MD [address] [place] [address] 5 [place] [phone] Implantation of inflatable penile prosthesis [84590 (CPT??)] 10/17/2024 9:00 EST Telemedicine [facility] Urology [address] [phone] Nurse Call, [facility] Urology 10/31/2024 15:00 EST Post-op Visit [address] [phone] Clemente Gerardo MD [address] [place] [address] [phone] 12/06/2024 10:15 EST Office Visit [facility] [address] [place] [address] Spike Puentes MD [address] [place] [phone] Scheduled Procedures Name Priority Associated Diagnoses Date/Ti me INSERTION, PENILE PROSTHESIS, INFLATABLE, 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 10/14/2024 11:00 EST documented as of this encounter Procedures Procedure Name Priority Date/Time Associated Diagnosis Comments XR FINGER LEFT 2 OR MORE VIEWS 10/31/2015 9:29 EST documented in this encounter Results * XR FINGER LEFT 2 OR MORE VIEWS (10/31/2015 9:29 EST) Anatomical Region Laterality Modality Upper Extremities Left Other 10/31/2015 9:29 EST Narrative 10/31/2015 9:52 EST ? EXAM: RADIOLOGY/THUMB-LEFT ?EX. D/ (8167) ? CLINICAL INFORMATION: ? S69.92XA LEFT THUMB INJURY ? Indication: Left thumb injury. ? Comparison: None. ? Technique: 3 views of the left thumb were obtained. ? Findings: There is moderate degenerative arthritis of the thumb ? metacarpophalangeal and interphalangeal joints. No acute displaced ? fracture or dislocation is identified. There is mild osteoarthritis ? of the thumb carpometacarpal joint. Bone density is normal. ? Impression: Osteoarthritis. ? REPORT SIGNED IN OTHER VENDOR SYSTEM 10/31/2015 ?Reported By: Philip Bain MD ? CC: ? Transcribed Date/Time: 10/31/2015 (0952) ? Digitizer: FAB ? Printed Date/Time: 04/13/2019 (0744) ? PAGE 1 ? Signed Report ? Procedure Note Philip Bain MD - 09/07/2019 EXAM: RADIOLOGY/THUMB-LEFT EX. D/ (0651) CLINICAL INFORMATION: S69.92XA LEFT THUMB INJURY Indication: Left thumb injury. Comparison: None. Technique: 3 views of the left thumb were obtained. Findings: There is moderate degenerative arthritis of the thumb metacarpophalangeal and interphalangeal joints. No acute displaced fracture or dislocation is identified. There is mild osteoarthritis of the thumb carpometacarpal joint. Bone density is normal. Impression: Osteoarthritis. REPORT SIGNED IN OTHER VENDOR SYSTEM 10/31/2015 Reported By: Philip Bain MD CC: Transcribed Date/Time: 10/31/2015 (0952) Digitizer: FAB Printed Date/Time: 04/13/2019 (0749) PAGE 1 Signed Report Vel Santos MD IMG DIAGNOSTIC IMAGI NG ORDERABLES documented in this encounter Visit Diagnoses Not on filedocumented in this encounter Care Teams Building Energy Consultant Relationship Specialty Start Date End Date Vel Santos MD PCP - General 10/30/11 03/09/23 documented as of this encounter
--- OUTSIDE RECORDS SUMMARY | 2024-07-19 22:15 | XMS_ITS | Encounter Summary ---
Author Organization [facility] Address [address] [place] [address] Care Team Providers Care Floor Covering Printer Assistant Name Role Phone Vel Santos MD Primary Care Provider Unava ilable Encounter Details Date Type Department Care Team (Late st Contact Info) Description 10/07/2016 Historical Results Only [facility] - Main [address] [phone] Vel Santos MD Social History Tobacco Use [...] [facility] Pre-Surgical Testing [address] [place] [address] 10/14/2024 11:00 EST Hospital Encounter [facility] OR [address] [place], [place] [address] Clemente Gerardo MD [address] [place] [address] [phone] 10/14/2024 11:00 EST - 10/14/2024 14:35 EST Surgery [facility] OR [address] [place] [address] [phone] Clemente Gerardo MD [address] [place] [address] [phone] Implantation of inflatable penile prosthesis [83011 (CPT??)] 10/17/2024 9:00 EST Telemedicine [address] [phone] Nurse Call, [facility] Urology 10/31/2024 15:00 EST Post-op Visit [address] [phone] Clemente Gerardo MD [address] [place] [address] [phone] 12/06/2024 10:15 EST Office Visit [facility] Ophthalmology [address] [address] Spike Puentes MD [address] [place] [phone] Scheduled Procedures Name Priority Associated Diagnoses Date/Ti me INSERTION, PENILE PROSTHESIS, INFLATABLE, 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 10/14/2024 11:00 EST documented as of this encounter Procedures Procedure Name Priority Date/Time Associated Diagnosis Comments BASIC METABOLIC PANEL (BMP) Routine 10/07/2016 12:01 EST documented in this encounter Results * BASIC METABOLIC PANEL (BMP) (10/07/2016 12:01 EST) BUN - [facility] 17 7 - 18 mg/dL 10/07/2016 16:50 [facility] CALCIUM - [facility] 9.2 8.5 - 10.1 mg/dL 10/07/2016 16:50 [facility] Chloride 103 98 - 107 mEq/L 10/07/2016 16:50 [facility] CO2 Total 25 21 - 32 mEq/L 10/07/2016 16:50 [facility] CREATININE 1.02 0.5 - 1.3 mg/dL 10/07/2016 16:50 [facility] eGFR >60 10/07/2016 16:50 [facility] Comment: Chronic renal impairment is defined as GFR <60 Multiply result by 1.210 for patients. Anion Gap 12 5 - 15 10/07/2016 16:50 [facility] GLUCOSE - [facility] 87 70 - 100 mg/dL 10/07/2016 16:58 [facility] Comment: ?Specimen compromised Serum should be from cells within 2 hours of collection. Potassium 4.2 3.5 - 5.0 mEq/L 10/07/2016 16:50 [facility] Sodium 140 135 - 145 mEq/L 10/07/2016 16:50 [facility] 10/07/2016 12:0 1 EST 10/07/2016 16:14 EST Vel Santos MD CHEMISTRY & BLOOD GA S ORDERABLES [facility] documented in this encounter Visit Diagnoses Not on filedocumented in this encounter Care Teams Floor Covering Printer Assistant Relationship Specialty Start Date End Date Vel Santos MD PCP - General 10/30/11 03/09/23 documented as of this encounter
--- OUTSIDE RECORDS SUMMARY | 2024-07-19 22:15 | XMS_ITS | Encounter Summary ---
Author Organization [facility] Address [address] [place] [address] Care Team Providers Care Station Engineer Chief Name Role Phone Vel Santos MD Primary Care Provider Unava ilable Reason for Visit * Reason Onset Date Comments Other 08/28/2014 Encounter Details Date Type Department Care Team (Late st Contact Info) Description 08/28/2014 Telephone [facility] Ophthalmology - [place] [address] [place] [address] Spike Puentes MD [address] [place] [phone] Other Social History Tobacco Use Types Packs/Day Years Used Date Smoking Tobacco: Former Alcohol Use Standard Drinks/Week Comments Not Asked 0 (1 standard drink = 0.6 oz pur e alcohol) Sex and Gender Information Value Date Recorded Sex Assigned at Male 12/26/2021 11:38 EST Gender Identity Male 06/20/2020 15:19 EDT Sexual Orientation Straight 12/26/2021 11 :37 EST documented as of this encounter Miscellaneous Notes * Telephone Encounter - Gerda Jolly - 08/30/2014 1120 EDT Pt says his vision has been blurry off and on for a few weeks. I suggested pt use warm compresses twice a day and artificial tears 2-3 times a day to see if this improves his symptoms. If it does nothe will call back and see if he can get in sooner. * Telephone Encounter - Gerda Jolly - 08/28/2014 1640 EDT LM for patient to call back. * Telephone Encounter - Lilly Ray - 08/28/2014 1559 EDT Roland has an nicole 12/15/14 for eye exam and vf. He was supposed to come in in April of this year, got a reminder in december and never called for the nicole. Now his seems to think should get in within the next few weeks because of glaucoma. He has been placed on wait list but would like to discuss with electronic engineering technician.. documented in this encounter Plan of Treatment Upcoming Encounters Date Type Department Care Team (Late st Contact Info) Description 10/04/2024 9:50 EST Appointment [facility] Pre-Surgical Testing [address] [place] [address] [phone] 10/14/2024 11:00 EST Hospital Encounter [facility] OR [address] [place] [address] [phone] Clemente Gerardo MD [address] [place] [address] [phone] 10/14/2024 11:00 EST - 10/14/2024 14:35 EST Surgery [facility] OR [address] [place] [address] [phone] Clemente Gerardo MD [address] [place] [address] [phone] Implantation of inflatable penile prosthesis [64123 (CPT??)] 10/17/2024 9:00 EST Telemedicine [facility] Urology - [address] [address] Nurse Call, [facility] Urology 10/31/2024 15:00 EST Post-op Visit [facility] Urology - [facility] [address] [place], [place] [phone] Clemente Gerardo MD 111 [facility], [address] [place] [phone] 12/06/2024 10:15 EST Office Visit [facility] Ophthalmology [facility] [address] [place], [place] 515[address] Spike Puentes MD [address] [place] [phone] Scheduled Procedures Name Priority Associated Diagnoses Date/Ti me INSERTION, PENILE PROSTHESIS, INFLATABLE, 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 10/14/2024 11:00 EST documented as of this encounter Visit Diagnoses Not on filedocumented in this encounter Care Teams Station Engineer Chief Relationship Specialty Start Date End Date Vel Santos MD PCP - General 10/30/11 03/09/23 documented as of this encounter
--- OUTSIDE RECORDS SUMMARY | 2024-07-19 22:15 | XMS_ITS | Encounter Summary ---
Author Organization [facility] Address [address] [place] [address] Care Team Providers Care Printer Operator Name Role Phone Vel Santos MD Primary Care Provider Unava ilable Encounter Details Date Type Department Care Team (Late st Contact Info) Description 11/12/2016 Results Only Imaging [facility]- PRISM [phone] Unknown, Provider, Social History Tobacco Use Types [...] [facility] Pre-Surgical Testing [address], [place] [phone] 10/14/2024 11:00 EST Hospital Encounter [facility] OR [address] [place] [address] [phone] Clemente Gerardo MD [address] [place] [address] [phone] 10/14/2024 11:00 EST - 10/14/2024 14:35 EST Surgery [facility] OR [address] [place] [address] [phone] Clemente Gerardo MD [address] [place] [address] [phone] Implantation of inflatable penile prosthesis [02572 (CPT??)] 10/17/2024 9:00 EST Telemedicine [facility] Urolog[address] [phone] Nurse Call, [facility] Urology 10/31/2024 15:00 EST Post-op Visit [facility] [address]rolog[address] [phone] Clemente Gerardo MD [address] [place] [address] [phone] 12/06/2024 10:15 EST Office Visit [facility] Ophthalmology [address] [address] Spike Puentes MD [address] [place] [phone] Pending Results Name Type Priority Associated Diagnoses Date /Time OUTSIDE IMAGES - CT NEURO Imaging 11/12/2016 12:59 EST OUTSIDE IMAGES - PLAIN FILM MSK Imaging 11/12/2016 12:59 EST OUTSIDE IMAGES - OTHER CHEST Imaging 11/12/2016 12:59 EST Scheduled Procedures Name Priority Associated Diagnoses Date/Ti me INSERTION, PENILE PROSTHESIS, INFLATABLE, 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 10/14/2024 11:00 EST documented as of this encounter Visit Diagnoses Not on filedocumented in this encounter Care Teams Printer Operator Relationship Specialty Start Date End Date Vel Santos MD PCP - General 10/30/11 03/09/23 documented as of this encounter
--- OUTSIDE RECORDS SUMMARY | 2024-07-19 22:15 | XMS_ITS | Encounter Summary ---
Author Organization [facility] Address [address] [place] [address] Care Team Providers Care Reel Stripper Name Role Phone Vel Santos MD Primary Care Provider Dave doe Encounter Details Date Type Department Care Team (Latest Contact Info) Description 10/30/2015 9:40 EST - 10/30/2015 23:59 EST Hospital Encounter [facility] [address] [place] [address] Unknown, Provider, Discharge Disposition: Home or Self [...] Tablet under the tongue as needed. 07/07/2014 Nojtb-5-NVD-EPA-Fish Oil 1,000 (120-180) mg capsule Take 1,000 [...] mouth daily. 06/05/2014 11/07/2019 [facility] needles gauge: 18 length:, Si.5 in self [...] [facility] Pre-Surgical Testing [address] [place], [place] [phone] 10/14/2024 11:00 EST Hospital Encounter [facility] OR [address] [place] [address] Clemente Gerardo MD [address] [place] [address] [phone] 10/14/2024 11:00 EST - 10/14/2024 14:35 EST Surgery [facility] OR [address] [place] [address] Clemente Gerardo MD [address] [place] [address] [phone] Implantation of inflatable penile prosthesis [75610 (CPT??)] 10/17/2024 9:00 EST Telemedicine [address] [phone] Nurse Call, [facility] Urology 10/31/2024 15:00 EST Post-op Visit [address] [phone] Clemente Gerardo MD [address] [place] [address] [phone] 12/06/2024 10:15 EST Office Visit [address] [address] Spike Puentes MD [address] [place] [phone] Scheduled Procedures Name Priority Associated Diagnoses Date/Ti me INSERTION, PENILE PROSTHESIS, INFLATABLE, 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 10/14/2024 11:00 EST documented as of this encounter Visit Diagnoses Not on filedocumented in this encounter Care Teams Reel Stripper Relationship Specialty Start Date End Date Vel Santos MD PCP - General 10/30/11 03/09/23 documented as of this encounter
--- OUTSIDE RECORDS SUMMARY | 2024-07-19 22:15 | XMS_ITS | Encounter Summary ---
Author Organization [facility] Address [address] [place] [address] Care Team Providers Care Sales Force Developer Name Role Phone Vel Santos MD Primary Care Provider Unava ilable Encounter Details Date Type Department Care Team (Late st Contact Info) Description 04/28/2017 Historical Results Only [facility] Radiology Results [address] [place], [place] 917182 Owen Cazares, [facility] [address] [place] [address] Social History Tobacco Use Types Packs/Day Years [...] 9:50 EST Appointment [facility] Pre-Surgical Testing [address] [place] [address] [phone] 10/14/2024 11:00 EST Hospital Encounter [facility] OR [address] [place] [address] [phone] Clemente Gerardo MD [address] [place] [address] [phone] 10/14/2024 11:00 EST - 10/14/2024 14:35 EST Surgery [facility] OR [address] [place] [address] [phone] Clemente Gerardo MD [address] [place] [address] [phone] Implantation of inflatable penile prosthesis [91654 (CPT??)] 10/17/2024 9:00 EST Telemedicine [facility] Urology [address] [phone] Nurse Call, [facility] Urology 10/31/2024 15:00 EST Post-op Visit [address] [phone] Clemente Gerardo MD [address] [place] [address] [phone] 12/06/2024 10:15 EST Office Visit [facility] Ophthalmology [facility] [address] [place] [address] Spike Puentes MD [address] [place] [phone] Scheduled Procedures Name Priority Associated Diagnoses Date/Ti me INSERTION, PENILE PROSTHESIS, INFLATABLE, 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 10/14/2024 11:00 EST documented as of this encounter Procedures Procedure Name Priority Date/Time Associated Diagnosis Comments XR FOOT RIGHT 3 OR MORE VIEWS 04/28/2017 12:41 EDT XR FOOT LEFT 3 OR MORE VIEWS 04/28/2017 12:39 EDT documented in this encounter Results * XR FOOT RIGHT 3 OR MORE VIEWS (04/28/2017 12:41 EDT) Anatomical Region Laterality Modality Lower Extremities Right Other 04/28/2017 12:4 1 EDT Narrative 04/28/2017 12:44 EDT ? EXAM: RADIOLOGY/FOOT RIGHT 3+VIEW ? EX. D/ (1234) ? CLINICAL INFORMATION: ? M25.571 PAIN IN JOINT, FOOT, RIGHT ? 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 TECHNIQUE: 3 views right foot. ? COMPARISON: None. ? Findings: Early great toe MTP joint space narrowing is seen. ? Alignment is unremarkable. There appears to be very early ? interphalangeal joint space narrowing throughout the foot. There is a ? area of sclerosis extending through the mid calcaneus. Joint space ? narrowing and subchondral sclerosis is seen at the mid and posterior ? subtalar joint and at the ankle. ? IMPRESSION: ? 1. 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 ? 2. Early great toe MTP joint osteoarthritis. ? REPORT SIGNED IN OTHER VENDOR SYSTEM 04/28/2017 ?Reported By: Juaquin Mistry MD ? CC: ? Transcribed Date/Time: 04/28/2017 (1784) ? Getter Filler: ? Printed Date/Time: 04/18/2019 (2565) ? PAGE 1 ? Signed Report ? Procedure Note Juaquin Mistry MD - 09/07/2019 EXAM: RADIOLOGY/FOOT RIGHT 3+VIEW EX. 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 COMPARISON: None. Findings: Early great toe MTP joint space narrowing is seen. Alignment is unremarkable. There appears to be very early interphalangeal joint space narrowing throughout the foot. There rhonda area of sclerosis extending through the mid calcaneus. Joint space narrowing and subchondral sclerosis is seen at the mid andposterior subtalar joint and at the ankle. IMPRESSION: 1. 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 2. Early great toe MTP joint osteoarthritis. REPORT SIGNED IN OTHER VENDOR SYSTEM 04/28/2017 Reported By: Juaquin Mistry MD CC: Transcribed Date/Time: 04/28/2017 (1244) Getter Filler: Printed Date/Time: 04/18/2019 (5849) PAGE 1 Signed Report Owen Cazares DPM IMG DIAGNOSTIC IMAG ING ORDERABLES * XR FOOT LEFT 3 OR MORE VIEWS (04/28/2017 12:39 EDT) Anatomical Region Laterality Modality Lower Extremities Left Other 04/28/2017 12:3 9 EDT Narrative 04/28/2017 12:43 EDT ? EXAM: RADIOLOGY/FOOT LEFT 3+VIEW ?EX. D/ (4934) ? CLINICAL INFORMATION: ? M25.572 PAIN IN JOINT, FOOT, LEFT ? Indication: M25.572 PAIN IN JOINT, FOOT, LEFT NON-DIABETIC ? 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 Technique: 3 view imaging of the left foot. ? Comparison: 08/22/2008. ? Findings: Early joint space narrowing is seen at the great toe MTP ? joint with a very small marginal osteophyte. Very early polyarticular ? joint space narrowing spans the interphalangeal joints. There is a ? small distal Achilles enthesophyte. ? IMPRESSION: ? 1. Early great toe MTP joint osteoarthritis. ? 2. No acute osseous abnormality detected. ? 3. Small Achilles enthesophyte. ? REPORT SIGNED IN OTHER VENDOR SYSTEM 04/28/2017 ?Reported By: Juaquin Mistry MD ? CC: ? Transcribed Date/Time: 04/28/2017 (1243) ? Getter Filler: ? Printed Date/Time: 04/18/2019 (0844) ? PAGE 1 ? Signed Report ? Procedure Note Juaquin Mistry MD - 09/07/2019 EXAM: RADIOLOGY/FOOT LEFT 3+VIEW EX. D/ (1234) CLINICAL INFORMATION: M25.572 PAIN IN JOINT, FOOT, LEFT Indication: M25.572 PAIN IN JOINT, FOOT, LEFT NON-DIABETIC NEUROPATHY, AND 10 YEARS S/P R HEEL Technique: 3 view imaging of the left foot. Comparison: 08/22/2008. Findings: Early joint space narrowing is seen at the great toe MTP joint with a very small marginal osteophyte. Very earlypolyarticular joint space narrowing spans the interphalangeal joints. There is a small distal Achilles enthesophyte. IMPRESSION: 1. Early great toe MTP joint osteoarthritis. 2. No acute osseous abnormality detected. 3. Small Achilles enthesophyte. REPORT SIGNED IN OTHER VENDOR SYSTEM 04/28/2017 Reported By: Juaquin Mistyr MD CC: Transcribed Date/Time: 04/28/2017 (1243) Getter Filler: Printed Date/Time: 04/18/2019 (0824) PAGE 1 Signed Report Owen Cazares DPM IMG DIAGNOSTIC IMAG ING ORDERABLES documented in this encounter Visit Diagnoses Not on filedocumented in this encounter Care Teams Sales Force Developer Relationship Specialty Start Date End Date Vel Santos MD PCP - General 10/30/11 03/09/23 documented as of this encounter
--- OUTSIDE RECORDS SUMMARY | 2024-07-19 22:15 | XMS_ITS | Encounter Summary ---
Author Organization [facility] Address [address] [place] [address] Care Team Providers Care Hospice/Home Health Aide Name Role Phone Vel Santos MD Primary Care Provider Unava ilable Reason for Visit * Reason Onset Date Comments Appointment Related 05/21/2016 Encounter Details Date Type Department Care Team (Late st Contact Info) Description 05/21/2016 Telephone [facility] Ophthalmology [facility] [address] [place] [address] Spike Puentes MD [address] [place] [phone] Appointment Related Social History Tobacco Use Types [...] No 12/18/2015 documented as of this encounter Miscellaneous Notes * Telephone Encounter - Guerda Doan - 05/21/2016 0821 EDT Patient had called and was seen by Dr. Long who said to follow up in 6 weeks. He wanted me to askDr. Puentes about time frame. Dr. Puentes stated he should be seen sooner, left message on phone. documented in this encounter Plan of Treatment Upcoming Encounters Date Type Department Care Team (Late st Contact Info) Description 10/04/2024 9:50 EST Appointment [facility] Pre-Surgical Testing [address] [place] [address] [phone] 10/14/2024 11:00 EST Hospital Encounter [facility] OR [address] [place] [address] [phone] Clemente Gerardo MD [address] [place] [address] [phone] 10/14/2024 11:00 EST - 10/14/2024 14:35 EST Surgery [facility] OR [address] [place] [address] [phone] Clemente Gerardo MD [address] [place] [address] [phone] Implantation of inflatable penile prosthesis [98174 (CPT??)] 10/17/2024 9:00 EST Telemedicine [facility] Urology [address] [phone] Nurse Call, [facility] Urology 10/31/2024 15:00 EST Post-op Visit [facility] Urology [address] [phone] Clemente Gerardo MD [address] [place] [address] [phone] 12/06/2024 10:15 EST Office Visit [facility] Ophthalmology - [place] [address] [place] [address] Spike Puentes MD [address] [place] [phone] Scheduled Procedures Name Priority Associated Diagnoses Date/Ti me INSERTION, PENILE PROSTHESIS, INFLATABLE, 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 10/14/2024 11:00 EST documented as of this encounter Visit Diagnoses Not on filedocumented in this encounter Care Teams Hospice/Home Health Aide Relationship Specialty Start Date End Date Vel Santos MD PCP - General 10/30/11 03/09/23 documented as of this encounter
--- OUTSIDE RECORDS SUMMARY | 2024-07-19 22:15 | XMS_ITS | Encounter Summary ---
Author Organization [facility] Address [address] [place] [address] Care Team Providers Care Wood Lather Name Role Phone Vel Santos MD Primary Care Provider Unava ilable Encounter Details Date Type Department Care Team (Late st Contact Info) Description 02/05/2018 Historical Results Only [facility] - Main [address] [phone] Vel Santos MD Social History Tobacco Use [...] [facility] Pre-Surgical Testing [address] [place] [address] 10/14/2024 11:00 EST Hospital Encounter [facility] OR [address] [place], [place] [phone] Clemente Gerardo MD [address] [place] [address] [phone] 10/14/2024 11:00 EST - 10/14/2024 14:35 EST Surgery [facility] OR [address] [place] [address] [phone] Clemente Gerardo MD [address] [place] [address] [phone] Implantation of inflatable penile prosthesis [46566 (CPT??)] 10/17/2024 9:00 EST Telemedicine [address] [phone] Nurse Call, [facility] Urology 10/31/2024 15:00 EST Post-op Visit [address] [phone] Clemente Gerardo MD [address] [place] [address] [phone] 12/06/2024 10:15 EST Office Visit [facility] Ophthalmology [address] [address] Spike Puentes MD [address] [place] [phone] Scheduled Procedures Name Priority Associated Diagnoses Date/Ti me INSERTION, PENILE PROSTHESIS, INFLATABLE, 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 10/14/2024 11:00 EST documented as of this encounter Procedures Procedure Name Priority Date/Time Associated Diagnosis Comments COMPLETE BLOOD COUNT WITH DIFFERENTIAL (AUTO) Routine 02/05/2018 12:19 EDT THYROID CASCADE Routine 02/05/2018 12:19 EDT HEPATITIS C AB W REFLEX TO HCV RNA BY PCR Routine 02/05/2018 12:19 EDT HEMOGLOBIN A1C Routine 02/05/2018 12:19 EDT COMPREHENSIVE METABOLIC PANEL (CMP) Routine 02/05/2018 12:19 EDT documented in this encounter Results * HEMOGLOBIN A1C (02/05/2018 12:19 EDT) Pathologist [facility] Hemoglobin A1c 6.0 4.0 - 6.0 % 02/05/2018 19:35 EDT [facility] Est Avg Glucose 126 mg/dL 8 19:35 [facility] 02/05/2018 12:1 9 EDT 02/05/2018 12:19 EDT Narrative [facility] - 02/05/2018 19:35 EDT Does PT Have a Latex Allergy? NO Vel Santos MD CHEMISTRY & BLOOD GA S ORDERABLES [facility] * (ABNORMAL) COMPREHENSIVE METABOLIC PANEL (CMP) (02/05/2018 12:19 EDT) Pathologist [facility] Albumin % 4.0 3.4 - 4.9 g/dL 02/05/2018 13:24 [facility] ALKALINE PHOSPHATASE - [facility] 89 38 - 126 U/L 02/05/2018 13:24 [facility] BILIRUBIN TOTAL 0.7 0.2 - 1.3 mg/dL 02/05/2018 13:24 [facility] BUN - [facility] 10 10 - 26 mg/dL 02/05/2018 13:24 [facility] CALCIUM - [facility] 9.5 8.5 - 10.5 mg/dL 02/05/2018 13:24 [facility] Chloride 101 96 - 110 mmol/L 02/05/2018 13:24 [facility] CO2 Total 26 21 - 32 mEq/L 02/05/2018 13:24 [facility] CREATININE 0.86 0.66 - 1.25 mg/dL 02/05/2018 13:24 [facility] eGFR >60 02/05/2018 13:24 [facility] Comment: Chronic renal impairment is defined as GFR <60 Multiply result by 1.210 for patients. Anion Gap 13 0 - 18 02/05/2018 13:24 [facility] GLUCOSE - [facility] 96 70 - 100 mg/dL 02/05/2018 13:24 [facility] Potassium 4.4 3.5 - 5.0 mEq/L 02/05/2018 13:24 [facility] Sodium 140 136 - 145 mEq/L 02/05/2018 13:24 [facility] TOTAL PROTEIN - [facility] 7.2 6.2 - 8.2 gm/dL 02/05/2018 13:24 [facility] SGOT/AST - [facility] 66(H) 17 - 59 U/L 02/05/2018 13:24 [facility] SGPT/ALT - [facility] 122(H) 21 - 72 U/L 02/05/2018 13:24 [facility] 02/05/2018 12:1 9 EDT 02/05/2018 12:19 EDT Narrative [facility] - 02/05/2018 13:24 EDT COMMENTS: PLEASE DRAW SUFFICIENT TIGER TOP FOR POSSIBLE ?HEPC AB W REFLEX ADD-ON COMMENT: FROM DR SANTOS Does PT Have a Latex Allergy? NO Vel Santos MD CHEMISTRY & BLOOD GA S ORDERABLES [facility] * THYROID CASCADE (02/05/2018 12:19 EDT) TSH 2.02 0.46 - 4.68 uIU/mL 02/05/2018 13:58 [facility] 02/05/2018 12:1 9 EDT 02/05/2018 12:19 EDT Narrative [facility] - 02/05/2018 13:58 EDT COMMENTS: PLEASE DRAW SUFFICIENT TIGER TOP FOR POSSIBLE ?HEPC AB W REFLEX ADD-ON COMMENT: FROM DR SANTOS Does PT Have a Latex Allergy? NO Vel Santos MD CHEMISTRY & BLOOD GA S ORDERABLES [facility] * HEPATITIS C AB W REFLEX TO HCV RNA BY PCR (02/05/2018 12:19 EDT) HEPATITIS C AB W/REFLEX - [facility] Negative 02/05/2018 17:44 EDT [facility] Comment:Expected Values: Neg ative. 02/05/2018 12:1 9 EDT 02/05/2018 16:44 EDT Narrative [facility] - 02/05/2018 17:44 EDT AOT: 02/05/18 1644: HEP C AB WITH REFLEX Vel Santos MD CHEMISTRY & BLOOD GA S ORDERABLES Performing Organization Address City/[facility]/ZIP Co de Phone Number [facility] * COMPLETE BLOOD COUNT WITH DIFFERENTIAL (AUTO) (02/05/2018 12:19 EDT) ABSOLUTE NEUTROPHIL COUN - [facility] 3.41 1.7 - 7.0 10e3/ul 02/05/2018 12:52 EDT [facility] BASO # - [facility] 0.01 0.0 - 0.3 10e3/uL 02/05/2018 12:52 EDT [facility] BASO % - [facility] 0 0 - 2 % 02/05/2018 12:52 EDT [facility] EOS # - [facility] 0.06 0.05 - 0.5 10e3/uL 02/05/2018 12:52 EDT [facility] EOS % - [facility] 1 0 - 5 % 02/05/2018 12:52 EDT [facility] GRAN % - [facility] 58 40 - 80 % 02/05/2018 12:52 [facility] HEMATOCRIT - [facility] 44.6 36.0 - 52.0 % 02/05/2018 12:52 [facility] HEMOGLOBIN - [facility] 14.9 13.7 - 17.5 g/dl 02/05/2018 12:52 [facility] IG# - [facility] 0.02 0 - 0.07 10e3/uL 02/05/2018 12:52 [facility] IG% - [facility] 0.3 0 - 0.9 % 02/05/2018 12:52 [facility] LYMPH # - [facility] 1.78 0.9 - 2.9 10e3/uL 02/05/2018 12:52 [facility] LYMPH% - [facility] 30 20 - 40 % 02/05/2018 12:52 [facility] MEAN CORPUSCULAR HGB - [facility] 31.6 26 - 34 pg 02/05/2018 12:52 [facility] MEAN CORPUSCULAR HGB CONC - [facility] 33.4 31 - 36 g/dL 02/05/2018 12:52 [facility] MEAN CELL VOLUME - [facility] 94.7 77 - 100 fl 02/05/2018 12:52 [facility] MONO # - [facility] 0.59 0.3 - 0.9 10e3/uL 02/05/2018 12:52 [facility] MONO% - [facility] 10 0 - 12 % 02/05/2018 12:52 [facility] PLATELET COUNT 178 150 - 400 10e3/ul 02/05/2018 12:52 [facility] RED BLOOD COUNT - [facility] 4.71 4.3 - 5.7 10e6/ul 02/05/2018 12:52 [facility] RED CELL DISTRI WIDTH - [facility] 13.3 11.8 - 15.6 % 02/05/2018 12:52 [facility] WHITE BLOOD COUNT - [facility] 5.9 3.5 - 10.5 10e3/ul 02/05/2018 12:52 [facility] 02/05/2018 12:1 9 EDT 02/05/2018 12:19 EDT Narrative [facility] - 02/05/2018 12:52 EDT Does PT Have a Latex Allergy? NO Vel Santos MD HEMATOLOGY & PF4 ORD ERABLES [facility] documented in this encounter Visit Diagnoses Not on filedocumented in this encounter Care Teams Wood Lather Relationship Specialty Start Date End Date eVl Santos MD PCP - General 10/30/11 03/09/23 documented as of this encounter
--- OUTSIDE RECORDS SUMMARY | 2024-07-19 22:15 | XMS_ITS | Encounter Summary ---
Author Organization [facility] Address [address] [place] [address] Care Team Providers Care Watch Inspector Final Movement Name Role Phone Unavailable Primary Care Provider Unavailabl e Encounter Details Date Type Department Care Team (Late st Contact Info) Description 06/07/2007 Before PRISM Converted Visit (Maple) [facility] - Maple conversion [address] [place] [address] Home Josue Chi, MD [address] [facility], [address] [place] [address] Social History Tobacco Use Types Packs/Day Years Used Date Smoking Tobacco: Never Assessed Sex and Gender Information Value Date Recorded Sex Assigned at Male 12/26/2021 11:38 EST Gender Identity Male 06/20/2020 15:19 EDT Sexual Orientation Straight 12/26/2021 11 :37 EST documented as of this encounter Consult Notes * Home Josue Chi, MD - 09/06/2009 0353 EST DIVISION OF RHEUMATOLOGY CONSULTATION - 06/07/2007 CHIEF COMPLAINT A 57-year-old male being evaluated at the request of Dr. Sky Benavidez and Dr. Vel Santos with history of rheumatoid arthritis; chronic bilateral foot pains. HISTORY OF PRESENT ILLNESS Patient began having diffuse joint pains 16 years ago at which time bertha Penny at [facility] rheumatology division and based on blood testing was told he may have rheumatoid arthritis. He did a trial of ibuprofen which caused both feet to swell. He also offered gold treatments, which he refused. He recalls doing some trials of prednisone with some benefit. In 2000, he was seen at [facility] and evaluated by Dr. Parish Ayala, at which time again he was told hedid have positive rheumatoid factor and offered a trial of Plaquenil. He did take Plaquenil but without any benefit, which was stopped. He never went on to methotrexate. He has not seen a fur coat sewer within the past six to seven years. Patient had onset of bilateral foot numbness 10 years ago which eventually lead to a formal neurologic evaluation by Dr. 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 The patient did undergo subcutaneous abdominal fat pad aspiration which was negative for amyloidosis. He eventually went on to receive six series of Solu-Medrol 1 gram infusions that were done daily for a three day series with some improvement in the paresthesias in the feet, although he continues to have low-grade constant paresthesias in the feet extending to the ankles as well as a lesser degree in the fingers of both hands. He is here today for an evaluation of chronic bilateral foot swelling and pain with the pain most notable in the balls of both feet which he has had for years (over 10 years). The left fifthtoe is always the most painful. He also has achiness in his hands at the DIP and PIP joints which is worse with use. He has chronic achiness in bilateral shoulders, neck, low back (does have history of low back strain injuries), right hip in the anterioriliac crest and episodic pain and subjective swelling of the ankles. He denies pain or swelling involving wrists, elbows, left hip and knees. The Solu-Medrol infusions did not help with any of the joint pains andin particular did not help the foot pains. At night he does have times when the foot discomfort is severe enough to keep him awake and is of a throbbing nature. In the mornings both feet feel stiff but the pain is not necessarilyworse. Oftentimes the pain in the feet is constant without any change with activity. The patient does have increased difficulty with weightbearing, however, because of the sensitivity of the feet. Healso feels his feet are always swollen. Patient has not used Neurontin for neuropathy. He has used Naprosyn without benefit. He has also used doxycycline, metronidazole, Noroxin to treat inflammation, all of which were not beneficial. Patient did have a decrease in the severity of his arthralgias six years ago when he was diagnosed with low testosterone level and shortly after he started testosterone weekly injections. His arthralgias and fatigue improved. REVIEW OF SYSTEMS A 12-point review of systems was done and is as documented in the rheumatology new patient intake form. This was negative except for voluntary weight loss in recent years, chronic dryness of the eyes, worse over the past year, mild dryness of the mouth, hyperlipidemia, dyspnea on exertion associated with exercise-induced asthma, episodic reflux symptoms, urinary tract infection seven years ago, recurrent mild dry rash on the nasolabial fold of the face thought to be due to eczema, chronic paresthesias in the fingers and feet as noted in HPI. MEDICATIONS 1. Prilosec 20 mg daily. 2. Crestor 5 mg daily. 3. Testosterone injections 1.5 ml weekly. 4. Enteric-coated aspirin 975 mg daily. ALLERGIES SULFA DRUGS CAUSING ANAPHYLACTIC REACTION. 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 He does smoke a half a pack a day for the past year and a half and does have a previous smoking history from age 5 to the age of 29 of 1/2 to one pack per day and quit at age 29 before restarting again. He drinks an average of 10 beers a week. 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 PAST MEDICAL HISTORY 1. Gastroesophageal reflux disease. 2. Peripheral neuropathy of unclear etiology. 3. Sinus surgery 2005. 4. Prostatectomy for BPH and suspected prostate cancer 2003. 5. Dysrhythmia not requiring medication. 6. Hyperlipidemia. 7. Exercise-induced asthma. 8. Skin cancer removal 2005. 9. Testosterone deficiency diagnosed in 2001. FAMILY HISTORY Brother had Parkinson's disease, father also had numb feet and of complications of aortic rupture. Mother of congestive heart failure. Paternal grandmother had arthritis. PHYSICAL EXAM Pleasant middle-aged male in no acute distress. Blood pressure 130/84, pulse 76 and regular. Height6 feet, weight 225 pounds. Skin reveals brandon complexion with sunburn on sun-exposed areas of the body. HEENT exam reveals mildly injected sclerae, moist mucous membranes without aphthous ulcers. Neck reveals no thyromegaly or adenopathy. Lungs clear. Cardiac normal S1, S2, no murmurs, rubs or gallops. Abdomen no organomegaly. Neurologic exam reveals patient to be oriented times three, no focal deficits except for dysesthesias in both feet extending 6 cm proximal to the ankle in stocking distribution bilaterally. Musculoskeletal Exam: Non-antalgic gait. Lumbar flexion intact. Decreased full extension and mildlydecreased rotation of C-spine with subjective stiffness. Discomfort on external rotation of both shoulder, right more so than left. Elbows and wrists have no swelling or tenderness. MCP joints of both hands are without acute swelling or tenderness with good range of motion. There is diffuse moderate bony enlargements with slight tenderness throughout the PIP and DIP joints of both hands. Intact range of motion of both hips. There is moderate prepatellar bursal thickening anterior to both patellae of the knees which are nontender. No knee effusions. Intact range of motion of both knees. Ankles without swelling or tenderness. MTP joints of both feet are with mild bony enlargements and mild tenderness of the first MTP joints but otherwise without acute swelling at the MTP joints andwith subjective discomfort on palpation. IP joints of the toes have bony enlargement diffusely withlittle tenderness. (Patient's and the patient pointed out that they thought the balls of his feet were swollen, although I could not appreciate any significant soft tissue swelling.) LABORATORY Labs dated March 31, 2006 from [facility] showing normal basic metabolic panel, WBC 4.2, hemoglobin 17.7, hematocrit 52.4, platelet count 201,000. We did review outside notes from Dr. Kevin Benavidez which noted that patient had EMG and nerve conduction studies which showed some active denervation in C-6, C-7 route distribution on the right. IMAGING I also personally reviewed bilateral foot x-rays dated June 04, 2007. Aside from some mild osteoarthritis changes at the first MTP joints, there is no evidence for inflammation, erosions in any of the other MTP joints. IMPRESSION/RECOMMENDATIONS 1. Chronic bilateral foot pains (dating over 10 years) with patient describing chronic swelling at balls of the feet. I do not find any objective evidence for joint swelling in the feet on my exam today despite the patient and his stating that they thought there was swelling. My concern is that the patient is feeling discomfort and subjecting swelling discomfort due to neuropathic source of pain. Patient does have peripheral neuropathy based on formal neurologic evaluation. Although rheumatoid arthritis can frequently affect the feet and the MTP joints, on exam today there is no evidence for active peripheral joint inflammation. Patient does describe worsening dry eyes for which we will screen him with autoantibodies for primary Sj?? gren disease which can also be associated with positive rheumatoid factor. It is not clear from his history that he has had classic joint swelling implicating rheumatoid arthritis but apparently has had positive rheumatoid factors on past lab testing. 2. Peripheral neuropathy most symptomatic in the feet. Unclear etiology. I am assuming that his neurologists have screened for the obvious culprits such as diabetes & vitamin deficiencies; he has had abdominal fat pad aspirations that were negative for amyloidosis. We will do autoimmune screening with antibody testing today. Patient derived some benefit from high-dose Solu-Medrol infusions. 3. 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 4. Hormonal deficiency with testosterone insufficiency. Etiology of this is unclear except possiblyage related. Patient does not have any objective signs or symptoms of hemochromatosis or vasculitis that could be contributing to gonadal failure. Patient will have an updated CBC, chemistries and routine urinalysis screening for proteinuria today. We will get complete autoantibody profile including rheumatoid factor, KIRAN, anti-SSA and SSB, anti-Salazar, anti-ROD TAPE OPERATOR, avkm-[id number] DNA, sedimentation rate and C-reactive protein as well as serum protein electrophoresis. To treat some of his osteoarthritis symptoms as well as the chronic pain in the feet which may be neuropathic, patient did accept a prescription for an NSAID such as flurbiprofen to try 100 mg b.i.d.to t.i.d. (or if his insurance will not cover flurbiprofen he can consider trying Relafen or Voltaren). Patient will also try glucosamine and chondroitin sulfate for three months to see if this improves on some of his chronic achiness. He did accept a prescription for Neurontin 300 mg tablets to take one to two at bedtime to see if this helps alleviate some of the foot pains. If he tolerates low-dose Neurontin but dose is inadequate to control foot pains, dose can be increased gradually to 1800to 3600 mg daily for pain control. Finally, if patient continues to require repeat high-dose corticosteroid infusions to control neuropathic symptoms then we may be forced to consider a steroid-sparing drug even if no autoimmune entity is diagnosed. Patient will follow up routinely in three to four months at [facility]. We will contact him if lab work to date reveals any significant abnormalities. P.S. As of 06/10/07, labs have not been done. Signed by Home Josue MD 06/10/2007 13:24 Felecia Chambers Chi, Chi, Felecia Josue MD Home Josue MD -Home Josue MD -SOPHIA Job ID: [id number] Doc ID: [id number] cc: MD Vel Parker MD Chi Chi Lau, MD - sophia Job ID: [id number] Doc ID: [id number] cc: MD Vel Parker MD documented in this encounter Plan of Treatment Upcoming Encounters Date Type Department Care Team (Late st Contact Info) Description 10/04/2024 9:[address] [facility] Pre-Surgical Testing [address] [place] [address] [phone] 10/14/2024 11:00 EST Hospital Encounter [facility] OR [address] [place] [address] [phone] Clemente Gerardo MD [address] [place] [address] [phone] 10/14/2024 11:00 EST - 10/14/2024 14:35 EST Surgery [facility] OR [address] [place] [address] [phone] Clemente Gerardo MD [address] [place] [address] [phone] Implantation of inflatable penile prosthesis [23788 (CPT??)] 10/17/2024 9:00 EST Telemedicine [address] [id number] Nurse Call, [facility] Urology 10/31/2024 15:00 EST Post-op Visit [address] [id number] Clemente Gerardo MD [address] [place] [address], [address] [place] [phone] 12/06/2024 10:15 EST Office Visit [facility] [address] [place], [place] [id number] Spike Puentes MD [address] [place] [phone] Scheduled Procedures Name Priority Associated Diagnoses Date/Ti me INSERTION, PENILE PROSTHESIS, INFLATABLE, 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 10/14/2024 11:00 EST documented as of this encounter Visit Diagnoses Not on filedocumented in this encounter
--- OUTSIDE RECORDS SUMMARY | 2024-07-19 22:15 | XMS_ITS | Encounter Summary ---
Author Organization [facility] Address [address] [place] [address] Care Team Providers Care Licensing Registration Examiner Name Role Phone Unavailable Primary Care Provider Unavailabl e Encounter Details Date Type Department Care Team (Late st Contact Info) Description 06/07/2007 10:43 EDT Hospital Encounter [facility] [address] [place] [address] Home Josue Chi, MD [address] [facility], [address] [place] [phone] Social History Tobacco Use Types [...] 18:08 EDT documented as of this encounter Plan of Treatment Upcoming Encounters Date Type Department Care Team (Late st Contact Info) Description 10/04/2024 9:[address] [facility] Pre-Surgical Testing [address] [place] [address] [phone] 10/14/2024 11:00 EST Hospital Encounter [facility] [place] [address] [place] [address] [phone] Clemente Gerardo MD [address] [place] [phone] 10/14/2024 11:00 EST - 10/14/2024 14:35 EST Surgery [facility] OR [address] [place] [address] [phone] Clemente Gerardo MD [address] [place] [phone] Implantation of inflatable penile prosthesis [42201 (CPT??)] 10/17/2024 9:00 EST Telemedicine [facility] [address] [phone] Nurse Call, [facility] 10/31/2024 15:00 EST Post-op Visit [facility] [phone] Clemente Gerardo MD [address] [place] [phone] 12/06/2024 10:15 EST Office Visit [address] [phone] Spike Puentes MD [address] [place] [phone] Scheduled Procedures Name Priority Associated Diagnoses Date/Ti me INSERTION, PENILE PROSTHESIS, INFLATABLE, 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 10/14/2024 11:00 EST documented as of this encounter Procedures Procedure Name Priority Date/Time Associated Diagnosis Comments ECHOCARDIOGRAM 10/29/2011 9:11 EST documented in this encounter Results * ECHOCARDIOGRAM (10/29/2011 9:11 EST) Anatomical Region Laterality Modality Other 10/29/2011 9:11 EST Narrative 10/29/2011 12:23 EST *Interpreting Group:* *[facility]* [address] [place] [address] *STUDY CONCLUSIONS* Summary: 1. Left ventricle: The cavity size was normal. Wall ?? thickness was increased increased in a pattern of mild to ?? moderate LVH. Systolic function was hyperdynamic. The ?? estimated ejection fraction was 65-70%. Wall motion was ?? normal; there were no regional wall motion abnormalities. 2. Mitral valve: Mildly calcified annulus. Mild ?? regurgitation. 3. Left atrium: The atrium was mildly dilated. 4. Right atrium: The atrium was mildly dilated. *PATIENT PRESENTATION* Height: ? 182.9cm (72in ) S/D Pressure: 170 / 82 Weight: ? 110.7kg (243.5lb ) BSA: ?2.32m^2 REFERRING ?Vel Santos ATTENDING ?Uriah Robles ORDERING ? Uriah Robles REFERRING ?Travis HARVEST FIELD TICKETER ??Reji Cristina PERFORMING ?? [facility] *PROCEDURE DATA* Procedure information: ??This study was interpreted by [facility]. ??Study status: ??Routine. Transthoracic echocardiography. ??M-mode, complete 2D, complete spectral Doppler, and color Doppler. A Transthoracic Echocardiogram was performed. Scanning was performed from the parasternal, apical, subcostal, and suprasternal notch acoustic windows. Images were obtained using a [employer] cardiac ultrasound machine. Image quality was suboptimal. ??Study completion: The patient tolerated the procedure well. *INDICATIONS AND HISTORY* Indications: ?? TIA 435.9. *CARDIAC ANATOMY* Left ventricle: ??The cavity size was normal. Wall thickness was increased increased in a pattern of mild to moderate LVH. Systolic function was hyperdynamic. The estimated ejection fraction was 65-70%. Wall motion was normal; there were no regional wall motion abnormalities. Aortic valve: ?? Probably trileaflet; mildly thickened leaflets. Mobility was not restricted. ??Doppler: Transvalvular velocity was within the normal range. There was no stenosis. ??No regurgitation. Aorta: ??Aortic root: The aortic root was at upper normal limits. Ascending aorta: The ascending aorta was mildly dilated. Mitral valve: ?? Mildly calcified annulus. Mobility was not restricted. ??Doppler: ??Transvalvular velocity was within the normal range. There was no evidence for stenosis. ??Mild regurgitation. ?Peak gradient: 3.9mm Hg (D). Left atrium: ??The atrium was mildly dilated. Right ventricle: ??The cavity size was normal. Wall thickness was normal. Systolic function was normal. Pulmonic valve: ?Doppler: ??Transvalvular velocity was within the normal range. There was no evidence for stenosis. Tricuspid valve: ?? Structurally normal valve. ?Doppler: Transvalvular velocity was within the normal range. ??Mild regurgitation. Pulmonary artery: ?? Pulmonary systolic pressure was within the normal range. Right atrium: ??The atrium was mildly dilated. Pericardium: ??There was no pericardial effusion. Systemic veins: Inferior vena cava: The vessel was normal in size; the respirophasic diameter changes were in the normal range (= 50%); findings are consistent with normal central venous pressure. *MEASUREMENT TABLES* 2D measurements ?Normal Left ventricle LV internal dimension, ED, chordal ? 45.9 mm ? 43-52 level, PLAX LV internal dimension, ES, chordal ?*22.3 mm ? 23-38 level, PLAX Fractional shortening, chordal level, ?51 % ?>29 PLAX Area, ED, A4C ?31.6 cm^2 ?? 17.7-47.3 Area, ES, A4C ?13.8 cm^2 ?? 7.9-31.5 Fractional area change, A4C ?56 % ?--------- LV posterior wall thickness, ED ?13.8 mm ? --------- IVS/LVPW ratio, ED ?1 ?<1.3 Volume, ED, MOD, 1-plane ? 94.9 ml ? --------- Volume, ES, MOD, 1-plane ? 24 ml ? --------- Ejection fraction, MOD, 1-plane ? 74.71 % ?--------- Volume index, ED, MOD, 1-plane ? 41 ml/m^2 --------- Volume index, ES, MOD, 1-plane ? 10 ml/m^2 --------- Ventricular septum Septal thickness, ED ? 13.8 mm ? --------- Aorta Ascending aorta anterior-posterior ? 41.3 mm ? --------- diameter, S Left atrium Anterior-posterior dimension ES, PLAX *45.8 mm ? 23-38 M-mode measurements ?Normal Left ventricle LV internal dimension, ED ?54 mm ? 37-56 LV internal dimension, ES ?30.7 mm ? --------- Fractional shortening ?43 % ?29-45 LV posterior wall, ED ? *12 mm ? 6-11 Septal/posterior wall ratio, ED ? 1 ?--------- Relative wall thickness, ED ? 0.4 ?<0.45 Ejection fraction, Teichshaniquez ? 73.8 % ?64-83 Wall mass ? 264.4 g ?--------- Wall mass index ? 114 g/m^2 ??--------- Mass/height ?1.45 g/cm ?? --------- Ventricular septum Septal thickness, ED ? 12 mm ? --------- Doppler measurements ? Normal Left ventricle IVRT ? *117 ms ? 60-100 Mitral valve Peak E-wave velocity ? 99 cm/s ?? --------- Peak A-wave velocity ?102 cm/s ?? --------- Deceleration time ? 192 ms ? 150-230 Peak gradient, D ?3.9 mm Hg ??--------- Peak E/A ratio ? 0.97 ?--------- Legend: Mean values are shown as u=mean value. Asterisk (*) templeton values outside specified normal range. Electronically signed by Norbert Mir MD [id number] Procedure Note 10/29/2011 *Interpreting Group:* *[facility]* [address] [place] [address] *STUDY CONCLUSIONS* Summary: 1. Left ventricle: The cavity size was normal. Wall thickness was increased increased in a pattern of mild to moderate LVH. Systolic function was hyperdynamic. The estimated ejection fraction was 65-70%. Wall motion was normal; there were no regional wall motion abnormalities. 2. Mitral valve: Mildly calcified annulus. Mild regurgitation. 3. Left atrium: The atrium was mildly dilated. 4. Right atrium: The atrium was mildly dilated. *PATIENT PRESENTATION* Height: 182.9cm (72in ) S/D Pressure: 170 / 82 Weight: 110.7kg (243.5lb ) BSA: 2.32m^2 REFERRING Vel Santos Martin C ORDERING Johns, Martin C REFERRING Johns HARVEST FIELD TICKETER Reji Cristina [facility] *PROCEDURE DATA* Procedure information: This study was interpreted by [facility]. Study status: Routine. Transthoracic echocardiography. M-mode, complete 2D, complete spectral Doppler, and color Doppler. A Transthoracic Echocardiogram was performed. Scanning was performed from the parasternal, apical, subcostal, and suprasternal notch acoustic windows. Images were obtained using a [employer] cardiac ultrasound machine. Image quality was suboptimal. Study completion: The patient tolerated the procedure well. *INDICATIONS AND HISTORY* Indications: TIA 435.9. *CARDIAC ANATOMY* Left ventricle: The cavity size was normal. Wall thickness was increased increased in a pattern of mild to moderate LVH. Systolic function was hyperdynamic. The estimated ejection fraction was 65-70%. Wall motion was normal; there were no regional wall motion abnormalities. Aortic valve: Probably trileaflet; mildly thickened leaflets. Mobility was not restricted. Doppler: Transvalvular velocity was within the normal range. There was no stenosis. No regurgitation. Aorta: Aortic root: The aortic root was at upper normal limits. Ascending aorta: The ascending aorta was mildly dilated. Mitral valve: Mildly calcified annulus. Mobility was not restricted. Doppler: Transvalvular velocity was within the normal range. There was no evidence for stenosis. Mild regurgitation. Peak gradient: 3.9mm Hg (D). Left atrium: The atrium was mildly dilated. Right ventricle: The cavity size was normal. Wall thickness was normal. Systolic function was normal. Pulmonic valve: Doppler: Transvalvular velocity was within the normal range. There was no evidence for stenosis. Tricuspid valve: Structurally normal valve. Doppler: Transvalvular velocity was within the normal range. Mild regurgitation. Pulmonary artery: Pulmonary systolic pressure was within the normal range. Right atrium: The atrium was mildly dilated. Pericardium: There was no pericardial effusion. Systemic veins: Inferior vena cava: The vessel was normal in size; the respirophasic diameter changes were in the normal range (= 50%); findings are consistent with normal central venous pressure. *MEASUREMENT TABLES* 2D measurements Normal Left ventricle LV internal dimension, ED, chordal 45.9 mm 43-52 level, PLAX LV internal dimension, ES, chordal *22.3 mm 23-38 level, PLAX Fractional shortening, chordal level, 51 % >29 PLAX Area, ED, A4C 31.6 cm^2 17.7-47.3 Area, ES, A4C 13.8 cm^2 7.9-31.5 Fractional area change, A4C 56 % --------- LV posterior wall thickness, ED 13.8 mm --------- IVS/LVPW ratio, ED 1 <1.3 Volume, ED, MOD, 1-plane 94.9 ml --------- Volume, ES, MOD, 1-plane 24 ml --------- Ejection fraction, MOD, 1-plane 74.71 % --------- Volume index, ED, MOD, 1-plane 41 ml/m^2 --------- Volume index, ES, MOD, 1-plane 10 ml/m^2 --------- Ventricular septum Septal thickness, ED 13.8 mm --------- Aorta Ascending aorta anterior-posterior 41.3 mm --------- diameter, S Left atrium Anterior-posterior dimension ES, PLAX *45.8 mm 23-38 M-mode measurements Normal Left ventricle LV internal dimension, ED 54 mm 37-56 LV internal dimension, ES 30.7 mm --------- Fractional shortening 43 % 29-45 LV posterior wall, ED *12 mm 6-11 Septal/posterior wall ratio, ED 1 --------- Relative wall thickness, ED 0.4 <0.45 Ejection fraction, Isauro 73.8 % 64-83 Wall mass 264.4 g --------- Wall mass index 114 g/m^2 --------- Mass/height 1.45 g/cm --------- Ventricular septum Septal thickness, ED 12 mm --------- Doppler measurements Normal Left ventricle IVRT *117 ms 60-100 Mitral valve Peak E-wave velocity 99 cm/s --------- Peak A-wave velocity 102 cm/s --------- Deceleration time 192 ms 150-230 Peak gradient, D 3.9 mm Hg --------- Peak E/A ratio 0.97 --------- Legend: Mean values are shown as u=mean value. Asterisk (*) templeton values outside specified normal range. Electronically signed by Norbert Mir MD [id number] Uriah Robles MD CARDIAC ECHO ORDERAB LES documented in this encounter Visit Diagnoses Not on filedocumented in this encounter
--- OUTSIDE RECORDS SUMMARY | 2024-07-19 22:16 | XMS_ITS | Encounter Summary ---
Author Organization [facility] [place] [address] Care Team Providers Care Worm Picker Name Role Phone Marco Aleman MD Primary Care Provider [phone] Reason for Visit * Consultation (Routine) - Closed Specialty Diagnoses / Procedures Referred By Yi t Referred To Contact Urology Diagnoses Erectile dysfunction of nonorganic origin Coronary artery disease, unspecified vessel or lesion type, unspecified whether angina present, unspecified whether southern ute or transplanted heart ED Marco Aleman MD [address] [place] [address] Uriah Ramirez MD [facility] [place] [address] Referral ID Status Reason Start Date Expiration Date V isits Requested Visits Authorized [id number] Closed Consult, Test & Treat PCP Updated and/or Approved 06/05/2023 06/04/2024 12 12 Encounter Details Date Type Department Care Team (Late st Contact Info) Description 08/12/2023 3:20 PM EDT [place] [id number] Uriah Ramirez MD [facility] [place] [address] Malignant neoplasm of prostate; Erectile dysfunction after radical prostatectomy; Peyronie's disease Social History Tobacco Use Types Packs/Day Years Used Date Smoking Tobacco: Former Cigarettes Q uit: 08/10/2010 Smokeless Tobacco: Never Tobacco Cessation:Counseling Given: Not Answered Alcohol Use Standard Drinks/Week Comments Yes 14 (1 standard drink = 0.6 oz pu re alcohol) Sex and Gender Information Value Date Recorded Sex Assigned at Not on file Gender Identity Not on file Sexual Orientation Not on file documented as of this encounter Last Filed Vital Signs Vital Sign Reading Time Taken Comments Blood Pressure 149/81 08/12/2023 3:18 PM EDT Pulse 57 08/12/2023 3:18 PM EDT Temperature - - Respiratory Rate - - Oxygen Saturation - - Inhaled Oxygen Concentration - - Weight 111.1 kg (245 lb) 08/12/2023 3:18 PM EDT Height 180.3 cm (5' 11) 08/12/2023 3:18 PM EDT Body Mass Index 34.17 08/12/2023 3:18 PM EDT documented in this encounter Progress Notes * Uriah Ramirez MD - 08/12/2023 3:20 PM EDT S: I have been requested by Dr. Aleman to see Mr. Vega for my opinion regarding his erectile dysfunction. He is a very pleasant 73-year-old gentleman with a history of erectile dysfunction followingprostatectomy for the last 18 years. He says his penile rigidity is approximately 0% at best without medications. With PDE5 inhibitors he is able to achieve the same erection. He has also been on intracavernosal injection in the past (about 18 years ago) and used this method for 4-6 months. He had penile with this method. He has since been using a JORDAN and had found it to be less effective with time. His intentional erections are absent. His sustaining capacities are absent. Nocturnal/morning spontaneous erections are absent, and less frequent than previous. He rates his sexual desire at 100% and says it is intact. He says his ejaculation is absent following radical prostatectomy. He denies leakage of urine with arousal and orgasm. Orgasmic capability isorgasm. He notes leftward 10 degree penile curvature since prostatectomy. He denies penile indentation. He notes penile length loss. He denies penile pain. He denies a history of penile trauma. He denies a history of pelvic or perineal trauma. He denies a history of regular bicycle riding. Sexual Health Inventory for Men (BRET) 1. Rate your confidence: 1 2. Hard enough for penetration: 0 3. Maintain after penetration: 0 4. Maintain to completion: 0 5. Satisfaction from intercourse: 0 -- TOTAL 1 -- 1-7 Severe ED 8-11 Moderate ED 12-16 Mild to Moderate ED 17-21 Mild ED Other issues include a history of laparoscopic radical prostatectomy in 2004. He has not had recent PSA and he elected to recheck PSA today. Per his report previous values were undetectable. Regarding his continence, he denies SAAD but notes occasional urinary urgency with prevoid and postvoid dribbling. He also has symptomatic hypogonadism and is on testosterone replacement therapy. He has been on a regimen of injectable testosterone cypionate dosed 1.5 mL of 200 mg/mL per week. He denies any adverse effects from this medication. He does note improvement in his hypogonadal symptoms on this medication. His last testosterone measurement was 343 in March. His last CBC showed a hematocrit of 32.5 in January. Past medical history is notable for CAD (on aspirin and Plavix), NC x2, CVA, hyperlipidemia, hypertension, depression, anxiety, GERD. Past surgical history includes coronary stents, nasal. From a social perspective, he quit smoking 15 years ago and has a 24 year history smoking. Alcohol usage is [address] drug usage is denied. He is . 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 Family history is negative for any genitourinary cancers. His allergies were reviewed and are consistent with those in the electronic medical record. His medications were reviewed and are consistent with those in the electronic medical record. A review of systems was performed and he has no pertinent positives, except for those listed in thehistory of present illness. O: On physical exam today he is in general a healthy, well-appearing man. He is awake, alert and oriented to person place and time. Mood and affect are normal. Gait: Normal and neurologically intact. No focal motor or sensory deficits are noted. Skin: Skin is warm and dry. There are no visible scars, rashes or lesions. HEENT: He is normocephalic and atraumatic. There is no scleral icterus. Pupils are equally round and reactive to light and accommodation. Extraocular motions intact. Trachea is midline. Lungs: No audible wheezing, normal respiratory effort. Chest rise is symmetric. Extremities: Extremities do not demonstrate clubbing, cyanosis or edema. His abdomen is soft, nontender, nondistended. There is no abdominal tenderness, guarding or rebound. No abdominal or inguinal hernias are seen. His phallus is circumcised. There are no penile lesions or palpable plaques. He has a patent, orthotopic urinary meatus. Both testes are scrotally located. The bilateral cords are palpable and withinnormal limits. There are no testicular masses or nodules bilaterally. His scrotum is without edema or erythema. A digital rectal exam was deferred. A: This is a 73-year-old gentleman with erectile dysfunction and probable Peyronie's disease. He also has a history of prostate cancer status post laparoscopic prostatectomy. P: We discussed erectile dysfunction and Peyronie's disease at length, including the etiologies andnatural histories of the diseases. We specifically talked about the management of concomitant erectile dysfunction and Peyronie's disease, and I explained his management options for both conditions. We specifically discussed inflatable penile prosthesis placement as the most logical treatment solution for both his Peyronie's disease and erectile dysfunction. He seemed most comfortable with proceeding with inflatable penile prosthesis placement after extensive explanation of the risks and benefits. I explained to him the perioperative course at length, including the preoperative visit, the overnight observation stay, and the postoperative visit schedule. We also discussed that surgery will be performed in [place] or [employer] (depending on his health screening assessment) and that the overnight observation stay allows for adequate prophylactic antibiotic dosing as well as pain management. I also explained the risks of surgery, including bleeding, bruising, swelling, infection, injury tosurrounding structures, mechanical failure, and device erosion. I explained that, in the modern era, penile prosthesis infection rates are approximally 1-3%. I explained the risks of injury to the urethra during cylinder placement and to the bladder, bowels and vasculature during reservoir placement. I explained that modern IPPs can potentially last 15-20 years without issue, but that mechanical breakdown can occur at any time. I also explained that he cannot leave the device inflated for protracted periods of time due to erosion risk. We discussed methods of curvature correction during penile implant placement for Peyronie's disease, including manual modeling, penile plication, and plaque incision or excision with or without grafting. Given the increased potential risk of device complications and infection with plication or plaque incision or excision with or without grafting, I recommended proceeding with manual modeling withthe understanding that he may not be completely straight immediately after surgery. I also explained that lost penile length from Peyronie's disease cannot be regained with penile implant surgery, but that erect penile girth improvement is feasible with penile implant surgery. He expressed understanding. I explained that his reservoir will be placed via a counterincision into the abdominal wall given his history of laparoscopic prostatectomy. I explained the utility and safety of topical reservoir placement. We also discussed the normal expectations for postoperative pain following penile prosthesis surgery. I explained that pain is often increased in duration for patients who are diabetic or undergo modeling procedures for Peyronie's disease, but that in general he can expect 1-2 weeks of lessening discomfort. We also discussed changes in the cosmetic appearance of his flaccid and erect penis as well as his scrotum following prosthesis surgery. I further explained that rarely additional procedures are needed to adjust device placement because of component migration or to improve patient satisfaction. We also discussed device function and I demonstrated how the device works. I also gave him literature to review regarding the surgical process and the device itself. Given his concomitant erectile dysfunction and Peyronie's disease I also recommended proceeding with intracavernosal injection and duplex Doppler ultrasonography prior to inflatable penile prosthesisplacement in order to assess penile curvature further. I explained this procedure in detail, including the risk of priapism, and he expressed understanding and wishes to proceed in October at [facility]. My staff will get this scheduled. If he wishes to proceed with inflatable penile prosthesis placement, my office will contact him with surgical dates and obtain prior authorization from his insurance company. He will also need clearance from cardiology. Prior to surgery he would have a preoperative visit to review preoperative and postoperative instructions in detail. We discussed the importance of following all of these instructions. I have also ordered a PSA for follow-up of his prostate cancer history and I will contact him with the results. He expressed understanding, and all questions were answered to his satisfaction. I will keep you updated as we move forward. Thank you very much for this kind referral. Please do not hesitate to contact me if you have any questions. documented in this encounter Plan of Treatment Upcoming Encounters Date Type Department Care Team (Late st Contact Info) Description 08/09/2024 10:30 AM EDT Hospital Encounter [place] [address] Navi Montero MD [facility] [place] [address] 08/09/2024 10:30 AM EDT - 08/09/2024 11:15 AM EDT [place] [address] Navi Montero MD [facility] [place] [address] COLONOSCOPY,SCREENI NG (WRVU 3.26) Scheduled Procedures Name Priority Associated Diagnoses Date/Ti me COLONOSCOPY,SCREENING (WRVU 3.26) polyps 08/09/2024 10:30 AM EDT documented as of this encounter Visit Diagnoses Diagnosis Malignant neoplasm of prostate Erectile dysfunction after radical prostatectomy Peyronie's disease documented in this encounter Care Teams Worm Picker Relationship Specialty Start Date End Date Marco Aleman MD [address] [place] [address] PCP - General Family Medicine 06/05/23 documented as of this encounter
--- OUTSIDE RECORDS SUMMARY | 2024-07-19 22:16 | XMS_ITS | Encounter Summary ---
Author Organization [facility] [place] [address] Care Team Providers Care Still Pump Operator Name Role Phone Vel Santos MD Primary Care Provider [phone] Encounter Details Date Type Department Care Team (Latest Contact Info) Description 09/23/2019 9:04 AM EST - 09/23/2019 2:20 PM EST Hospital Encounter [place] [address] Sharron Lechuga MD [facility] [place] [address] Discharge Disposition: Home Social History Tobacco Use Types Packs/Day Years Used Date Smoking Tobacco: Former Cigarettes Q uit: 08/10/2010 Smokeless Tobacco: Never Alcohol Use Standard Drinks/Week Comments Yes 14 (1 standard drink = 0.6 oz pu re alcohol) Sex and Gender Information Value Date Recorded Sex Assigned at Not on file Gender Identity Not on file Sexual Orientation Not on file documented as of this encounter Last Filed Vital Signs Vital Sign Reading Time Taken Comments Blood Pressure 132/77 09/23/2019 2:00 PM EST Pulse 60 09/23/2019 1:25 PM EST Temperature 36.7 ??C (98.1 ??F) 09/23/2019 1:35 PM ES T Respiratory Rate 16 09/23/2019 2:00 PM EST Oxygen Saturation 95% 09/23/2019 2:00 PM EST Inhaled Oxygen Concentration - - Weight - - Height - - Body Mass Index - - documented in this encounter Discharge Instructions * Patient Instructions* Kris León MD - 09/23/2019 1:50 PM EST LOOP RECORDER EXPLANT RECOMMENDATIONS: ?? You may use ice packs over the incision. Make sure to use a chief cloth finishing range operator (such as a towel) in between the ice pack and the bare skin and that it stays DRY. ?? Follow up with your PCP clinic in 10 days for a wound check. WOUND CARE FOR YOUR INCISION: Your wound will usually heal in 7-10 days. Your wound may be tender, it may appear slightly red andbumpy and there may be dry, crusty scabbing. These are all normal. How to Care for your Incision: - Either you or someone with you needs to look at the wound every day. - Report any signs of infection immediately: ?? Drainage ?? Swelling ?? Warmth ?? Increased pain ?? Fevers/chills - Call if you are concerned about infection or the edges of the wound separate - A needle should not be put into the wound area because this can damage the device. ?? You may need to remind your healthcare provider of this concern - There are sutures inside the incision that will dissolve on their own - Do not scratch or rub the wound - Do not apply creams, lotions, or ointments to the incision until is completely healed. - You may cover the wound with gauze if it rubs on clothing and causes discomfort - Protect your wound from injury until the skin has had sufficient time to heal - While in the shower, turn your back to the water nozzle so you avoid direct water pressure on thewound. Continue this for 7-10 days. - After 48 hours, you may wash the wound gently with soap and water (unless there is DermaBond on the incision - see below) - Do not submerge the incision (bathtubs, hot tubs, or swimming) for at least two weeks Your incision has been covered with a Mepilex dressing. - This dressing will stay on for 7 days. - If the edges pull up substantially or fluid gets underneath the Mepilex dressing, remove it sooner - Once removed, you may notice some grayish discoloration. This is normal. Your incision has been closed with: Dermabond - This is a sterile, liquid skin adhesive that holds wound edges together. The film will usually remain in place for a few weeks, then naturally sloughs (falls) off your skin. - Do not scratch, rub, or pick at the Dermabond adhesive film. This may loosen the film before yourwound is healed. - Protect the wound from prolonged exposure to sunlight or tanning lamps while the film is in place - You may occasionally and briefly wet your wound in the shower or bath. Do not soak or scrub your wound, do not swim, and avoid periods of heavy perspiration until the Dermabond adhesive has naturally fallen off. After showering or bathing, gently blot your wound dry with a soft towel CALL IMMEDIATELY: If you develop chest pain, shortness of breath, bleeding, discharge from the incision, opening of the incision and/or fever/temperature >100 degrees F. The office scheduling phone number is [phone]. documented in this encounter Medications at Time of Discharge Medication Sig Dispensed Refills Start Date End Date lamoTRIgine (LAMICTAL) 25 mg Tablet Take 25 mg by mouth 2 times daily. cholecalciferol, Vitamin D3, 2,000 unit Capsule Take by mouth. ONETOUCH ULTRA BLUE TEST STRIP Strip use as directed twice a day 0 08/03/2018 ONETOUCH ULTRA2 Kit use as directed twice a day 0 08/03/2018 aspirin 325 mg Tablet Take 1 tablet by mouth daily. 90 tablet 3 08/11/2018 clopidogrel (PLAVIX) 75 mg Tablet Take 1 tablet by mouth daily. 90 tablet 1 04/21/2017 buPROPion SR (Wellbutrin SR) 150 mg SR 12 hr tablet Take 450 mg by mouth daily. coQ10, ubiquinol, 100 mg Capsule Take 1 capsule by mouth 2 times daily. nitroGLYcerin (NITROSTAT) 0.4 mg SL tablet 0.4 MG = 1 Tablet(s), Sublingual, prn 11/13/2010 marijuana Oil - medicinal use LOTION THAT IS RUBBED ON HIS FEET... AND CANDY THAT HE EATS.. HARDLY EVER USES IT 12/10/2023 pantoprazole (PROTONIX) 40 mg Tablet, Delayed Release (E.C.) Take 1 tablet by mouth daily. 90 tablet 3 04/13/2018 12/10/2023 nystatin (MYCOSTATIN) Cream Apply to affected areas on the face twice daily as needed. 30 g 3 08/20/2015 12/10/2023 testosterone enanthate (DELATESTRYL) 200 mg/mL Oil Inject into the muscle every 7 days. Patient injects 1.25 cc weekly 12/10/2023 ketoconazole (NIZORAL) 2 % Shampoo shampoo, rinse after 5-10 min, daily for flares or weekly for prevention. 120 mL 3 08/10/2015 08/12/2023 atorvastatin (LIPITOR) 40 mg tablet 40 MG = 1 Tablet(s), PO, Once daily 11/13/2010 08/12/2023 metoprolol succinate (TOPROL-XL) 100 mg XL tablet Take by mouth. 11/13/2010 08/12/2023 documented as of this encounter H&P Notes * Kris León MD - 09/23/2019 11:51 AM EST Roland Lydia Vega [id number] 09/23/2019 69 y.o. Admission History and Physical PCP: Vel Santos MD Date of Evaluation: 09/23/2019 Date of Admission: 09/23/2019 HPI 68yr old male with history of left MCA CVA, CAD s/p PCI and syncope who had a loop recorder implanted for arrhythmia monitoring presents for loop recorder explant because of pain at the site of implant. Procedure details and risks reviewed and consent signed. Problem List: Active Non-Hospital Problems Diagnosis ??? Near syncope ??? Acute ischemic left MCA stroke ??? S/P angioplasty with stent ??? Peripheral neuropathy ??? History of syncope ??? Asthma ??? Rheumatoid arthritis(714.0) ??? Malignant neoplasm of prostate ??? Headache(784.0) ??? Chronic back pain ??? Depression ??? Hyperlipidemia ??? Gastroesophageal reflux ??? ASCVD (arteriosclerotic cardiovascular disease) ??? CIS - CIDP ROS/PMHx/Fam Hx/Soc Hx: Reviewed, see outpatient note. Physical Exam: Vital signs: BP 146/85 (BP Location (NBP): Right arm) Pulse 58 Temp 36.8 ??C (98.2 ??F) (Temporal) Resp 16 SpO2 97% Physical Exam Constitutional: He is oriented to person, place, and time. He appears well- developed and well-nourished. No distress. HENT: Head: Normocephalic. Eyes: Pupils are equal, round, and reactive to light. Neck: Normal range of motion. Cardiovascular: Regular rhythm, normal heart sounds and intact distal pulses. No murmur heard. Pulmonary/Chest: Effort normal and breath sounds normal. Abdominal: Soft. Bowel sounds are normal. He exhibits no distension. There is no tenderness. Musculoskeletal: Normal range of motion. Neurological: He is alert and oriented to person, place, and time. Skin: Skin is warm. Assessment: 69yr old man with prior ILR implant for monitoring who presents for ILR explant because of pain at the site of implant. Plan: Proceed with ILR explant with moderate sedation. Kris León MD 09/23/2019 documented in this encounter Plan of Treatment Upcoming Encounters Date Type Department Care Team (Late st Contact Info) Description 08/09/2024 10:30 AM EDT Hospital Encounter [place] [address] Navi Montero MD [facility] [place] [address] 08/09/2024 10:30 AM EDT - 08/09/2024 11:15 AM EDT [place] [address] Navi Montero MD [facility] [address] COLONOSCOPY,SCREENI NG (WRVU 3.26) Scheduled Procedures Name Priority Associated Diagnoses Date/Ti me COLONOSCOPY,SCREENING (WRVU 3.26) polyps 08/09/2024 10:30 AM EDT documented as of this encounter Visit Diagnoses Not on filedocumented in this encounter Administered Medications Inactive Administered Medications - up to 3 most recent administrations Medication Order MAR Action Action Date Dose Rate Site BUpivacaine (PF) (MARCAINE) 0.5 % (5 mg/mL) injection 150 mg 150 mg (30 mL), Subcutaneous, ONCE, 1 dose, On Thu09/23/19 at 1215, EP (Intra-Procedure), Routine Given 09/23/2019 12:28 PM EST 150 mg fentaNYL 50 mcg/mL multi-dose injection ONCE PRN, Starting on Thu09/23/19 at 1221, Until Thu09/23/19 at 1328, Cath (Intra-Procedure), Routine Given 09/23/2019 12:46 PM EST 25 mcg Given 09/23/2019 12:27 PM EST 25 mcg Given 09/23/2019 12:21 PM EST 25 mcg lidocaine (XYLOCAINE) 20 mg/mL (2 %) injection 400 mg 400 mg (20 mL), Subcutaneous, ONCE, 1 dose, On Thu09/23/19 at 1215, EP (Intra-Procedure), Routine Given 09/23/2019 12:28 PM EST 400 mg midazolam (PF) (VERSED) multi-dose injection ONCE PRN, Starting on Thu09/23/19 at 1221, Until Thu09/23/19 at 1328, Cath (Intra-Procedure), Routine Given 09/23/2019 12:27 PM EST 0.5 mg Given 09/23/2019 12:21 PM EST 1 mg documented in this encounter Active and Recently Administered Medications Times are shown in EST. Scheduled Medication Order 09/21/2019 09/22/2019 09/23/2019 BUpivacaine (PF) (MARCAINE) 0.5 % (5 mg/mL) injection 150 mg (COMPLETED) 150 mg (30 mL), Subcutaneous, ONCE, 1 dose, On Thu09/23/19 at 1215, EP (Intra-Procedure), Routine 1228 (Given - Provid er: Afsaneh Victoria RN) lidocaine (XYLOCAINE) 20 mg/mL (2 %) injection 400 mg (COMPLETED) 400 mg (20 mL), Subcutaneous, ONCE, 1 dose, On Thu09/23/19 at 1215, EP (Intra-Procedure), Routine 1228 (Given - Provid er: Afsaneh Victoria RN) PRN Medication Order 09/21/2019 09/22/2019 09/23/2019 fentaNYL 50 mcg/mL multi-dose injection (CANCELED) ONCE PRN, Starting on Thu09/23/19 at 1221, Until Thu09/23/19 at 1328, Cath (Intra-Procedure), Routine 1221 (Given - Provid er: Afsaneh Victoria RN)1227 (Given - Provider: Afsaneh Victoria RN)1246 (Given - Provider: Afsaneh Victoria RN) midazolam (PF) (VERSED) multi-dose injection (CANCELED) ONCE PRN, Starting on Thu09/23/19 at 1221, Until Thu09/23/19 at 1328, Cath (Intra-Procedure), Routine 1221 (Given - Provid er: Afsaneh Victoria RN)1227 (Given - Provider: Afsaneh Victoria RN) documented in this encounter Care Teams Still Pump Operator Relationship Specialty Start Date End Date Vel Santos MD [address] [place] [phone] PCP - General 09/24/10 06/04/23 documented as of this encounter
--- OUTSIDE RECORDS SUMMARY | 2024-07-19 22:16 | XMS_ITS | Encounter Summary ---
Author Organization [facility] [place] [address] Care Team Providers Care Web Design Specialist Name Role Phone Vel Santos MD Primary Care Provider [phone] Encounter Details Date Type Department Care Team (Late st Contact Info) Description 10/24/2019 1:30 PM EST - 10/24/2019 2:00 PM EST Surgery [place] [address] Donavan Dunaway MD [facility] [place] [address] EGD, UPPER GI ENDOSCOPY (WRVU 2.09) Social History Tobacco Use Types Packs/Day Years [...] Sign Reading Time Taken Comments Blood Pressure 140/77 10/24/2019 2:00 PM EST Pulse 58 10/24/2019 1:02 PM EST Temperature 36.6 ??C (97.9 ??F) 10/24/2019 1:02 PM ES T Respiratory Rate 16 10/24/2019 2:00 PM EST Oxygen Saturation 95% 10/24/2019 2:00 PM EST Inhaled Oxygen Concentration - - Weight 122.5 kg (270 lb) 10/24/2019 1:02 PM EST Height - - Body Mass Index 37.66 11/04/2018 10:56 AM EST documented in this encounter Discharge Instructions * Discharge Instructions* Aliza Hernandez, RN - 10/24/2019 1:58 PM EST Upper GI Endoscopy: What to Expect at Home Your Recovery You will be able to go home after your doctor or nurse checks to make sure you are not having any problems. You may have to stay overnight if you had treatment during the test. You may have a sore throat fora day or two after the test. This care sheet gives you a general idea about what to expect after the test. How can you care for yourself at home? Activity Rest when you feel tired. ?? You can do your normal activities when it feels okay to do so. Diet ?? Follow your doctor's directions for eating. ?? Unless your doctor has told you not to, drink plenty of fluids. This helps to replace the fluidsthat were lost during the prep. ?? Do not drink alcohol. Medicines ?? Your doctor will tell you if and when you can restart your medicines. He or she will also give you instructions about taking any new medicines. ?? If you take blood thinners, such as warfarin (Coumadin), clopidogrel (Plavix), or aspirin, be sure to talk to your doctor. He or she will tell you if and when to start taking those medicines again. Make sure that you understand exactly what your doctor wants you to do. ?? If polyps were removed or a biopsy was done during the test, your doctor may tell you not to take aspirin or other anti-inflammatory medicines for a few days. These include ibuprofen (Advil, Motrin) and naproxen (Aleve). ?? If you have a sore throat the day after the procedure, use an mqry-chn-sngvapz spray to numb your throat. Sucking on throat lozenges and gargling with warm salt water may also help relieve your symptoms. Other instructions ?? For your safety, do not drive or operate machinery until the medicine wears off and you can think clearly. Your doctor may tell you not to drive or operate machinery until the day after your test. ?? Do not sign legal documents or make major decisions until the medicine wears off and you can think clearly. The anesthesia can make it hard for you to fully understand what you are agreeing to. Additional Information for Sedation Patients For patients who received sedation: ?? You may have received medications before and/or during your procedure which effects your judgement and reaction time. ?? Do not drive, operate machinery, drink alcoholic beverages or make important decisions for 24 hours. ?? Be careful on stairs as you may be unsteady on your feet. ?? You may eat a regular diet as tolerated. ?? Do not smoke if you are alone. ?? IV site: Slight redness or tenderness is normal, you can use a warm compress if you would like. If tenderness and/or redness increase or if foul drainage occurs, please contact your Doctor. Please call [phone] before 8pm Mon-Fri with problems, questions or concerns. If you call after 8pm or on weekends, call the Hospital at [phone] and ask to speak to the Master Tax Advisor instrumentation manager and the barrel dedenting machine operator will contact that person for you. When should you call for help? Call [phone] anytime you think you may need emergency care. For example, call if: ?? You passed out (lost consciousness). ?? You pass maroon or bloody stools. ?? You have trouble breathing. Call your doctor now or seek immediate medical care if: ?? You have pain that does not get better after you take pain medicine. ?? You are sick to your stomach or cannot drink fluids. ?? You have new or worse belly pain. ?? You have blood in your stools. ?? You have a fever. ?? You cannot pass stools or gas. Watch closely for changes in your health, and be sure to contact your doctor if you have any problems. Where can you learn more? [facility] View your After Visit Summary and more online at [email or web address] If you would like to provide feedback about your hospital experience, please call the Office of Patient and Family Relations at . If you have received this After Visit Summary in error, please immediately return it in person to the department, or notify the [facility] Privacy Office by calling toll free at between the hours of 8AM and 5PM to arrange for our retrieval of the documents at no cost to you. Content Version: 12.2 ?? [phone] [employer]. Care instructions adapted under license by [facility]. If you have questions about a medical condition or this instruction, always ask your healthcare professional. [employer] disclaims any warranty or liability for your use of this information. * Patient Instructions* Donavan Dunaway MD - 10/24/2019 1:45 PM EST Please see Recommendations in the Provation procedure report which is documented in the procedural note in E-DH. documented in this encounter Medications at Time [...] as of this encounter H&P Notes * Donavan Dunaway MD - 10/24/2019 1:10 PM EST Gastroenterology and Hepatology Pre-Procedure History and Physical Exam Procedure: EGD: Indication: GERD/chest discomfort and chronic cough. Patient Active Problem List Diagnosis Code ??? ASCVD (arteriosclerotic cardiovascular disease) I25.10 ??? CIS - CIDP ??? Depression F32.9 ??? Hyperlipidemia E78.5 ??? Gastroesophageal reflux K21.9 ??? Peripheral neuropathy G62.9 ??? History of syncope Z87.898 ??? Asthma J45.909 ??? Rheumatoid arthritis(714.0) M06.9 ??? Malignant neoplasm of prostate C61 ??? Headache(784.0) R51 ??? Chronic back pain M54.9, G89.29 ??? S/P angioplasty with stent Z95.820 ??? Acute ischemic left MCA stroke I63.512 ??? Near syncope R55 EXAM: HEENT: Airway examined, oropharynx clear Mallampati Score: Per anesthesia LUNGS: Clear to auscultation HEART: Regular rate and rhythm, normal S1, S2 ABDOMEN: Normal bowel sounds, soft, non tender, non distended, A/P Proceed with the planned endoscopic procedure. ASA 3 - Patient with moderate systemic disease with functional limitations Sedation Plan: anesthesia Risks and benefits of the procedure explained to the patient. Consent signed. documented in this encounter Miscellaneous Notes * Op Note - Donavan Dunaway MD - 10/24/2019 1:45 PM EST [facility] [place]ative Note Patient Name: Roland Vega : [id number] MR#: [id number] Case Date: 10/24/2019 Surgeon: Surgeon(s) and Role: * Donavan Dunaway MD - Primary Preoperative diagnosis: REFLUX ESOPHAGITIS Ok per AISLINN Postoperative diagnosis: * No post-op diagnosis entered * Procedure(s) (LRB): EGD, UPPER GI ENDOSCOPY (N/A) Anesthesia: MAC Full procedure note is documented under the Procedure section of eDH. documented in this encounter Plan of Treatment Upcoming Encounters Date Type Department Care Team (Late st Contact Info) Description 08/09/2024 10:30 AM EDT Hospital Encounter [place] [address] Navi Montero MD [facility] [place] [address] 08/09/2024 10:30 AM EDT - 08/09/2024 11:15 AM EDT Surgery [place] [address] Navi Montero MD [facility] [place] [address] COLONOSCOPY,SCREENI NG (WRVU 3.26) Scheduled Procedures Name Priority Associated Diagnoses Date/Ti me COLONOSCOPY,SCREENING (WRVU 3.26) polyps 08/09/2024 10:30 AM EDT documented as of this encounter Procedures Procedure Name Priority Date/Time Associated Diagnosis Comments Upper GI Endoscopy, Diagnostic (36523) 10/24/2019 1:36 PM EST REFLUX ESOPHAGITIS Ok per AISLINN UPPER GI ENDOSCOPY Routine 10/24/2019 1: 17 PM EST documented in this encounter Results * UPPER GI ENDOSCOPY (10/24/2019 1:17 PM EST) UPPER GI ENDOSCOPY [facility] ___ Procedure Date: 10/24/2019 1:17 PM ? Patient Name: Roland Vega ? Date of : 1950 ? Age: 69 ? Order #: [id number] ? Instrument Name: [id number] ? ___ Procedure: ? Upper GI endoscopy Indications: ? Follow-up of gastro-esophageal reflux ? disease, chronic cough, atypical ? chest pain Providers: ? Donavan Dunaway MD, Yanelis Queen. ? GLORIA Golden, Mya Bower, ? Manager Of Compensation Referring MD: ?Vel Santos MD Medicines: ? Propofol per Anesthesia Complications: ? No immediate complications. ___ Procedure: ? Pre-Anesthesia Assessment: ? - Prior to the procedure, a History ? and Physical was performed, and ? patient medications, allergies and ? sensitivities were reviewed. The ? patient's tolerance of previous ? anesthesia was reviewed. ? - The risks and benefits of the ? procedure and the sedation options ? and risks were discussed with the ? patient. All questions were answered ? and informed consent was obtained. ? - ASA Grade Assessment: III - A ? patient with severe systemic disease. ? - Using IV propofol under the ? supervision of an anesthesiologist ? was determined to be medically ? necessary for this procedure based on ? age 65 or older and severe ? comorbidity (greater than ASA Grade ? II). ? The procedure, indications, benefits, ? risks and alternatives were explained ? to the patient. Specifically ? discussed were potential ? complications including, but not ? limited to, bleeding, perforation, ? infection, missing a cancer, and ? adverse medication reactions. The ? Endoscope was introduced through the ? mouth, and advanced to the second ? part of duodenum. The patient ? tolerated the procedure well. The ? patient tolerated the procedure well. ? Findings: ? The esophagus was normal. ? The Z-line was found 43 cm from the incisors. ? The stomach was normal. ? The examined duodenum was normal. ? Moderate Sedation: ? Not applicable - See Anesthesia documentation Impression: ?- Normal exam. There was no active ? esophagitis or Bower's. Recommendation: ?- Observe patient's clinical course. ? - Consider pH probe study if symptoms ? persist. ? Attending Participation: ? I personally performed the entire procedure. ? Donavan Dunaway MD 10/24/2019 1:48:28 PM This report has been signed electronically. Number of Addenda: 0 Note Initiated On: 10/24/2019 1:17 PM PROVATION 10/24/2019 1:17 PM EST Vel Santos MD GENERAL SURGICAL ORD ERABLES PROVATION documented in this encounter Visit Diagnoses Not on filedocumented in this encounter Administered Medications Inactive Administered Medications - up to 3 most recent administrations Medication Order MAR Action Action Date Dose Rate Site lactated ringers infusion 100 mL/hr, Intravenous, CONTINUOUS, Starting on Thu10/24/19 at 1315, Until Thu10/24/19 at 1443, Endoscopy (Day of Procedure) New Bag 10/24/2019 1:26 PM EST 100 mL/hr 100 mL/hr documented in this encounter Active and Recently Administered Medications Times are shown in EST. Continuous Medication Order 10/22/2019 10/23/2019 10/24/2019 lactated ringers infusion (CANCELED) 100 mL/hr, Intravenous, CONTINUOUS, Starting on 10/24/19 at 1315, Until Thu10/24/19 at 1443, Endoscopy (Day of Procedure) 1326 (New Bag - Prov ider: Teresa Johnson RN)1342 (Stopped - Provider: Akila Tavarez CRNA) documented in this encounter Care Teams Web Design Specialist Relationship Specialty Start Date End Date Vel Santos MD [address] [place] [phone] PCP - General 09/24/10 06/04/23 documented as of this encounter
--- OUTSIDE RECORDS SUMMARY | 2024-07-19 22:16 | XMS_ITS | Encounter Summary ---
Author Organization [facility] [place] [address] Care Team Providers Care Antisubmarine Weapons Officer Name Role Phone Marco Aleman MD Primary Care Provider [phone] Reason for Referral * Consultation (Routine) - Closed Specialty Diagnoses / Procedures Referred By Yi cummings Referred To Contact Gastroenterology Diagnoses Tubular adenoma POLYP OF COLON Marco Aleman MD [address] [place] [address] [facility] [address] [place] [address] Referral ID Status Reason Start Date Expiration Date V isits Requested Visits Authorized [id number] Closed Surgical PCP Updated and/or Approved 12/02/2023 12/01/2024 1 1 Encounter Details Date Type Department Care Team (Late st Contact Info) Description 12/02/2023 Transcribe Orders eD Incoming Referrals [phone] Marco Aleman MD [address] [place] [address] Tubular adenoma Social History Tobacco Use Types Packs/Day Years Used Date Smoking Tobacco: Former Cigarettes Q uit: 08/10/2010 Smokeless Tobacco: Never Alcohol Use Standard Drinks/Week Comments Yes 14 (1 standard drink = 0.6 oz pu re alcohol) Sex and Gender Information Value Date Recorded Sex Assigned at Not on file Gender Identity Not on file Sexual Orientation Not on file documented as of this encounter Plan of Treatment Upcoming Encounters Date Type Department Care Team (Late st Contact Info) Description 08/09/2024 10:30 AM EDT Hospital Encounter [place] [address] Navi Montero MD [facility] [place] [address] 08/09/2024 10:30 AM EDT - 08/09/2024 11:15 AM EDT Surgery [place] [address] Navi Montero MD [facility] [place] [address] COLONOSCOPY,SCREENI NG (WRVU 3.26) Scheduled Procedures Name Priority Associated Diagnoses Date/Ti me COLONOSCOPY,SCREENING (WRVU 3.26) polyps 08/09/2024 10:30 AM EDT Scheduled Referrals Name Type Priority Associated Diagnoses Order Schedule REFERRAL TO COLONOSCOPY PROCEDURE Outpatient Referral Routine Tubular adenoma Ordered: 12/02/2023 documented as of this encounter Visit Diagnoses Diagnosis Tubular adenoma Benign neoplasm of unspecified site documented in this encounter Care Teams Antisubmarine Weapons Officer Relationship Specialty Start Date End Date Marco Aleman MD [address] [place] [id number] PCP - General Family Medicine 06/05/23 documented as of this encounter
--- OUTSIDE RECORDS SUMMARY | 2024-07-19 22:16 | XMS_ITS | Encounter Summary ---
Author Organization [facility] Address [facility] [place] [address] Care Team Providers Care Color Technician Name Role Phone Marco Aleman MD Primary Care Provider [phone] Encounter Details Date Type Department Care Team (Latest Contact Info) Description 12/10/2023 Travel Social History Tobacco Use Types Packs/Day [...] 10:30 AM EDT Hospital Encounter [place] [address] Navi Montero MD [facility] [place] [address] 08/09/2024 10:30 AM EDT - 08/09/2024 11:15 AM EDT Surgery [place] [phone] Navi Montero MD [facility] [place] [address] COLONOSCOPY,SCREENI NG (WRVU 3.26) Scheduled Procedures Name Priority Associated Diagnoses Date/Ti me COLONOSCOPY,SCREENING (WRVU 3.26) polyps 08/09/2024 10:30 AM EDT documented as of this encounter Visit Diagnoses Not on filedocumented in this encounter Care Teams Color Technician Relationship Specialty Start Date End Date Marco Aleman MD [address] [place] [phone] PCP - General Family Medicine 06/05/23 documented as of this encounter
--- OUTSIDE RECORDS SUMMARY | 2024-07-19 22:16 | XMS_ITS | Encounter Summary ---
[place] [address] Care Team Providers Care Youth Probation Officer Name Role Phone Marco Aleman MD Primary Care Provider [phone] Encounter Details Date Type Department Care Team (Late st Contact Info) Description 12/24/2023 Telephone [place] [phone] Micah Walker Social History Tobacco Use Types Packs/Day Years Used Date Smoking Tobacco: Former Cigarettes Q uit: 08/10/2010 Smokeless Tobacco: Never Alcohol Use Standard Drinks/Week Comments Yes 14 (1 standard drink = 0.6 oz pu re alcohol) Sex and Gender Information Value Date Recorded Sex Assigned at Not on file Gender Identity Not on file Sexual Orientation Not on file documented as of this encounter Miscellaneous Notes * Telephone Encounter - Micah Walker - 12/24/2023 10:56 AM EST Roland Vega [id number] Diagnosis/Indication: polyps Please review patient chart to confirm if previous Endoscopy procedure was performed within system. If yes, take note of Anesthesia type used. If previous procedure found, and with MAC/propofol Anesthesia support was used, schedule this procedure with Anesthesia and skip the Anesthesia portion of questions. If not performed within system, not performed at all, or performed with IVCS, ask Anesthesia questions. SCHEDULING QUESTIONS (ask all patient these questions) Have you ever had a/an Colonoscopy before? Yes: Date January 2023 If yes, did you have any problems with the procedure (such as waking up during the procedure, pain or difficulties afterwards, etc.)? No What type of sedation was used: Other: unknown (ASK ONLY FOR COLONOSCOPY PROCEDURES) Are you aware, or have you ever been told that you had a poor prep or failed prep with a previous colonoscopy? Yes If yes, assign the Extended MiraLAX Prep (ASK ONLY FOR COLONOSCOPY PROCEDURES) Do you have an ongoing history of constipation? (E.g., hard stools, >2 days without a bowel movement, straining or difficulty passing stool) Yes If yes, assign the Extended MiraLAX Prep Do you take any blood thinners or have you been diagnosed with a bleeding disorder that increases your risk of bleeding with procedures? No Do you have a Pacemaker or Defibrillator device? If yes, send pool message to Cardiology with patient information and date or procedure. No Do you have diabetes? If yes, call PCP/managing provider to discuss use of prep and any questions or concerns related to. No If yes, assign the Extended MiraLAX Prep Do you take any iron supplements or vitamins that contain iron? No Do you have a preference regarding the gender of your provider? No ANESTHESIA QUESTIONS (YES to any question, please book with Anesthesia support) Have you ever been diagnosed with Pulmonary Hypertension and/or Congential Heart Disease? No Have you been diagnosed with A-Fib (atrial fibrillation) that is NOT being well controled with medications? No Have you ever had an allergic or adverse reaction to Fentanyl or Versed? No Have you had a problem with sedation or anesthesia? (Waking up during procedure, extreme confusion after, etc.) No Do you have a diagnosis of Obstructive Sleep Apnea that requires the use of a c- pap machine? No Do you use an oxygen tank at home? No Do you use a rescue inhaler more than twice per day? (COPD, severe asthma) No Do you experience breathing problems when you lay flat for a period of time? Yes Do you regularly take prescription opioid pain medications on a daily basis? (Includes oxycodone, Percocet, Suboxone, methadone, etc.) No If yes, assign the Extended MiraLAX Prep SCHEDULING CONFIRMATIONS: Please note any and all parts of your conversation with the patient here. We offer all new patients an opportunity to have an appointment with one of our associate care providers to learn more about your upcoming procedure, ask questions and get answers. These appointmentsare offered via telehealth. Would you be interested in scheduling this appointment? (Only ask if NEW referral patient; skip this question if GI provider ordered the procedure.) No Is there any other information or concerns you would like to us to share with your care team in relation to your upcoming scheduled procedure? No You must have a responsible democrat who will drive you to your procedure, stay on campus for the entire duration of your procedure, and drive you home from your procedure. Who will likely be your customer service driver for the procedure? *Please Verify the height and weight, and adjust if height and/or weight have changed* Estimated body mass index is 34.56 kg/m?? as calculated from the following: Height as of 12/10/23: 180.3 cm (5' 11). Weight as of 12/10/23: 112.4 kg (247 lb 12.8 oz). Age:73 y.o. documented in this encounter Plan of Treatment Upcoming Encounters Date Type Department Care Team (Late st Contact Info) Description 08/09/2024 10:30 AM EDT Hospital En[place] [address] Navi Montero MD [facility] [place] [address] 08/09/2024 10:30 AM EDT - 08/09/2024 11:15 AM EDT [place] [address] Navi Montero MD [facility] [place] [address] COLONOSCOPY,SCREENI NG (WRVU 3.26) Scheduled Procedures Name Priority Associated Diagnoses Date/Ti me COLONOSCOPY,SCREENING (WRVU 3.26) polyps 08/09/2024 10:30 AM EDT documented as of this encounter Visit Diagnoses Not on filedocumented in this encounter Care Teams Youth Probation Officer Relationship Specialty Start Date End Date Marco Aleman MD [address] [place] [address] PCP - General Family Medicine 06/05/23 documented as of this encounter
--- OUTSIDE RECORDS SUMMARY | 2024-07-19 22:16 | XMS_ITS | Encounter Summary ---
[place] [address] Care Team Providers Care Sanitation Director Name Role Phone Vel Santos MD Primary Care Provider [phone] Encounter Details Date Type Department Care Team (Late st Contact Info) Description 10/14/2019 Telephone [place] [phone] Saul Vegas Social History Tobacco Use Types Packs/Day Years [...] encounter Miscellaneous Notes * Telephone Encounter - Saul Vegas - 10/14/2019 11:48 AM EST Spoke with racing secretary at D's office, explaining that we have received two contradictory referrals and cannot proceed without clarification and records. If we have not received the information by the end of today we will be closing the referral and redirecting to patient's PCP for follow up. documented in this encounter Plan of Treatment Upcoming Encounters Date Type Department Care Team (Late st Contact Info) Description 08/09/2024 10:30 AM EDT Hospital Encounter [place] [address] Navi Montero MD [facility] [place] [address] 08/09/2024 10:30 AM EDT - 08/09/2024 11:15 AM EDT Surgery [place] [address] Navi Montero MD [facility] [place] [address] COLONOSCOPY,SCREENI NG (WRVU 3.26) Scheduled Procedures Name Priority Associated Diagnoses Date/Ti me COLONOSCOPY,SCREENING (WRVU 3.26) polyps 08/09/2024 10:30 AM EDT documented as of this encounter Visit Diagnoses Not on filedocumented in this encounter Care Teams Sanitation Director Relationship Specialty Start Date End Date Vel Santos MD [address] [place] [phone] PCP - General 09/24/10 06/04/23 documented as of this encounter
--- OUTSIDE RECORDS SUMMARY | 2024-07-19 22:16 | XMS_ITS | Encounter Summary ---
Author Organization [facility] Address [facility] [place] [address] Care Team Providers Care Woodwind Instrument Repairer Name Role Phone Vel Santos MD Primary Care Provider [phone] Reason for Visit * Reason Comments Left Knee Pain * Consultation (Routine) - Closed Specialty Diagnoses / Procedures Referred By Yi cummings Referred To Contact Orthopaedics Diagnoses Chronic instability of knee, left knee Vel Santos MD [address] [place] [phone] [facility] [address] [place] [phone] Referral ID Status Reason Start Date Expiration Date V isits Requested Visits Authorized [id number] Closed Consult, [facility] PCP Updated and/or Approved 01/22/2021 01/22/2022 6 6 Encounter Details Date Type Department Care Team (Late st Contact Info) Description 01/31/2021 11:00 AM EDT [place] [phone] Violette Hopper PA [facility] [place] [address] Acute pain of left knee (Primary Dx); Joint laxity of left knee Social History Tobacco Use Types Packs/Day Years [...] Sign Reading Time Taken Comments Blood Pressure 136/69 01/31/2021 10:36 AM EDT Pulse 65 01/31/2021 10:36 AM EDT Temperature - - Respiratory Rate - - Oxygen Saturation - - Inhaled Oxygen Concentration - - Weight 122.5 kg (270 lb) 01/31/2021 10:36 AM EDT Height 180.3 cm (5' 11) 01/31/2021 10:36 AM EDT Body Mass Index 37.66 01/31/2021 10:36 AM EDT documented in this encounter Progress Notes * Violette Hopper PA - 01/31/2021 11:00 AM EDT Images from the original note were not included. Department of Orthopaedics Division of Adult Joint Reconstructive Surgery CHIEF COMPLAINT: Chief Complaint Patient presents with ??? Left Knee Pain ARTHROPLASTY HISTORY/PREVIOUS KNEE SURGERY: 1. none Roland was referred from Vel Santos MD [address] [place] [phone] I.D.: Roland Vega is a 70 y.o. year old male being seen today to discuss his left knee. His history and physical exam were reviewed in detail. Onset of the symptoms was about a month ago. There was not an inciting event. Has never had any knee trouble however did break the tib fib in the ankle years ago. History of right calc fracture which was not surgical repaired. He feels something shift in the knee and then has lateral knee pain. This will go away quickly. He comes to clinic wearing a hinged knee brace. Not taking OTC He has had prior hip problems. 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 QUESTIONNAIRE RESPONSES: General Health, Prior Treatments, PreExisting Condition, Health Habits, About You 01/31/2021 PROMIS-10 General Health Very Good PROMIS-10 Quality of Life Excellent PROMIS-10 Physical Health Very Good PROMIS-10 Mental Health Very Good PROMIS-10 Social Activity Excellent PROMIS-10 Everyday Activities Moderately PROMIS-10 Pain 10 - Worst Imaginable Pain PROMIS-10 Fatigue Mild PROMIS-10 Social Roles Very Good PROMIS-10 Anxious or Depressed Never PROMIS PHYSICAL SCORE (range 16-68) 39.8 PROMIS MENTAL SCORE (range 21-68) 62.5 KOOS JR Scores 61.58 TKA Grade 3 Alzheimers or dementia No Cirrohosis or liver disease No HIV/AIDS No Pain in more than one joint in legs Yes Back or neck pain Yes Heart attack Yes Heart failure No Unclog/bypass leg arteries Yes Stroke, blood clot, TIA Yes Difficulty moving arm/leg No Asthma No Emphysema, chronic bronchities, or COPD No Stomach ulcers/peptic ulcer disease No Diabetes No Poor kidney function No Rheumatic condtions No Cancer No Weight (lbs) 270 Height (feet) 6 feet Height (Inches) 0 BMI 36.61 (Obese) Ever used tobacco products Yes Tobacco frequency Never WHO - Tobacco Advice 0 (You are at low risk of health and other problems from your current pattern of use.) Ever used alcoholic beverages Yes Alcohol frequency Daily or almost daily WHO - Alcohol Advice 6 (You are at risk of health and other problems from your current pattern of alcohol use.) Live Alone No Marital situation Schooling High school graduate or GED Combined Household Income $75,000 or more # People Supported 2 Malian, , No, not Malian// Race White Health Literacy Extremely Currently working Yes Current job situation Full-time [facility] Response 01/31/2021 KOOS JR Scores 61.58 Spine [facility] Response 01/31/2021 KOOS JR Scores 61.58 ALLERGIES Allergies Allergen Reactions ??? Lisinopril Other (See Comments) and Angioedema Tongue swelling ??? Other [Unclassified Drug] ??? Shellfish Containing Products Anaphylaxis and Other (See Comments) Swordfish ??? Sulfa (Sulfonamide Antibiotics) Anaphylaxis ??? Cyclobenzaprine Other reaction(s): Unknown ??? Hydroxychloroquine Sulfate Other (See Comments) visual changes ??? Naproxen Sodium Other reaction(s): edema ??? Tramadol Other reaction(s): DIZZINESS SOCIAL HISTORY: reports that he quit smoking about 10 years ago. He has never used smokeless tobacco. He reports current alcohol use of about 14.0 standard drinks of alcohol per week. He reports current drug use. Drug: Marijuana. SIGNIFICANT MEDICAL COMORBIDITIES: Patient Active Problem List Diagnosis Code ??? [...] MCA stroke I63.512 ??? Near syncope R55 VITALS: BP Readings from Last 1 Encounters: 01/31/21 136/69 Pulse Readings from Last 1 Encounters: 01/31/21 65 Height: 180.3 cm (5' 11) Weight: 122.5 kg (270 lb) Body mass index is 37.66 kg/m??. PHYSICAL EXAM: Constitution: Roland sits in the clinic today alert, appears stated age and cooperative. The patientis alert and oriented. I have made the following determinations: Knee Exam: Left Prior surgery on this joint: No Knee ROM: Extension:0 Flexion: 125 Alignment: 0-4 degrees Neutral Stability: A/P Translation <5mm Varus (lateral stability) <5mm Valgus (medial stability) 5-10mm Extension La degrees or less Radiographic evidence of joint damage: [0= normal; 1=minimal ; 2= some osteophytes , some narrowing ; 3= moderate osteophytes, significantnarrowing, mild deformity; 4= large osteophytes, marked narrowing, obvious deformity]: 3= moderate osteophytes, significant narrorwing, mild deformity Patella Tracking: Normal Skin Integrity: Normal Pulses Palpable: Left PT:Yes Left DP:Yes Motor/Sensory: Distal Motor:Normal Distal Sensory: Normal Quadriceps Strength:4 Knee Effusion: 0-1+ Ecchymosis: none Patella: Patellar apprehension test: no Patellar compression test: positive Tenderness: medial joint line IMAGING: X-rays of the left knee demonstrate significant joint space narrowing deep to the patella, lateral joint space narrowing as well as osteophyte formation. ASSESSMENT AND PLAN: Mr. Vega is a 70 y.o. year old male with moderate osteoarthritis of his left knee. We had a long discussion about the nature of his discomfort. He has good knee ROM however is a bit lax with lateral pressure. He is experiencing instances where the knee gives out, however denies anytrue locking. We discussed the elective management of osteoarthritis treatment. We discussed attempting conservative therapy first with [id number]-zdf-[id number] anti-inflammatories such as ibuprofen or naproxen along with acetaminophen if they can be tolerated. We also discussed attempting formal physical therapy, as that can help keep core and quad musculature strong, in conjunction with focusing on range of motion. We also discussed using walking aids, continue and regular exercise along with maintaining an appropriate weight. The patient is receptive to this. We also discussed corticosteroid injection. Risks and benefits explained including but not limited to steroid flare, increase in blood glucose, infection, continued pain, bleeding, damage to nerves and vessels and can safely be given every 3-4 months. We reviewed the indications of total knee arthroplasty and the elective management of this. We discussed the procedure, recovery, and expectations post- operatively. We reviewed risks andbenefits, which include but are not limited to infection, bleeding, damage to nerves and vessels, hardware failure, fracture, dislocation, blood clot, heart attack, stroke, adverse reaction to anesthesia, and continued pain. Patient demonstrates and understanding of the above. I would like him to use a hinged knee brace. He has an old, torn knee brace now and will be ordering a new brace. He will be trying topical Voltaren gel for pain relief and will be performing HEP Ultimately he would like to try conservative management. LAZARO Acosta documented in this encounter Plan of Treatment Upcoming Encounters Date Type Department Care Team (Late st Contact Info) Description 08/09/2024 10:30 AM EDT Hospital Encounter [place] [phone] Navi Montero MD [facility] [place] [place] [address] 08/09/2024 10:30 AM EDT - 08/09/2024 11:15 AM EDT Surgery [place] [phone] Navi Montero MD [facility] [place] [address] COLONOSCOPY,SCREENI NG (WRVU 3.26) Scheduled Procedures Name Priority Associated Diagnoses Date/Ti me COLONOSCOPY,SCREENING (WRVU 3.26) polyps 08/09/2024 10:30 AM EDT documented as of this encounter Results * XR Knee Standing Alignment AP Lat [place] Left (01/31/2021 10:19 AM EDT) Anatomical Region Laterality Modality Left Digital Radiogra phy Impressions 01/31/2021 11:45 AM EDT Moderate osteoarthropathy of the left knee patellofemoral compartment. I have personally reviewed the image(s) and the resident's interpretation and agree with the findings, Prasanna Alberto MD at 01/31/2021 11:45 AM Thank you for letting us participate in the care of this patient. ??If you are a health care provider and have any questions regarding this report, please contact the number below. ??For patients who have questions please contact the health care advocate that requested your imaging first. ? Electronically signed by: Prasanna Alberto MD, [facility] ([phone]), at 01/31/2021 11:45 AM Narrative 01/31/2021 11:45 AM EDT EXAMINATION: XR KNEE STANDING ALIGNMENT AP LAT [place] SKY[place] LEFT CLINICAL HISTORY: New Left Knee pain TECHNIQUE: Separate images of the pelvis, knees and feet were acquired in the AP projection with the patient standing. These images were stitched together to form a composite image of the pelvis and legs allowing for evaluation of lower extremity alignment in the weight bearing position. 4 views of the left knee. COMPARISON: None FINDINGS: Mechanical axis is midline bilaterally. Right knee: Joint spaces are preserved. Left knee: No fracture, dislocation or erosions. Tricompartmental osteophytes. Small joint effusion. Lateral and patellofemoral compartment osteophytes. Moderate narrowing of the patellofemoral compartment joint space. Lateral and medial compartment joint spaces are preserved. Procedure Note Prasanna Alberto MD - 01/31/2021 EXAMINATION: XR KNEE STANDING ALIGNMENT AP LAT [place] SKYLINE LEFT CLINICAL HISTORY: New Left Knee pain TECHNIQUE: Separate images of the pelvis, knees and feet were acquired inthe AP projection with the patient standing. These images were stitched togetherto form a composite image of the pelvis and legs allowing for evaluation oflower extremity alignment in the weight bearing position. 4 views of the leftknee. COMPARISON: None FINDINGS: Mechanical axis is midline bilaterally. Right knee: Joint spaces are preserved. Left knee: No fracture, dislocation or erosions. Tricompartmentalosteophytes. Small joint effusion. Lateral and patellofemoral compartmentosteophytes. Moderate narrowing of the patellofemoral compartment joint space. Lateraland medial compartment joint spaces are preserved. IMPRESSION Moderate osteoarthropathy of the left knee patellofemoral compartment. I have personally reviewed the image(s) and the resident's interpretationand agree with the findings, Prasanna Alberto MD at 01/31/2021 11:45 AM Thank you for letting us participate in the care of this patient. If youare a health care provider and have any questions regarding this report,please contact the number below. For patients who have questions please contactthe health care advocate that requested your imaging first. Electronically signed by: Prasanna Alberto MD, [facility]([phone]), at 01/31/2021 11:45 AM Micky Eden MD IMG DX ORDERABLES documented in this encounter Visit Diagnoses Diagnosis Acute pain of left knee- Primary Joint laxity of left knee Acute pain of left knee documented in this encounter Care Teams Woodwind Instrument Repairer Relationship Specialty Start Date End Date Vel Santos MD [address] [place] [phone] PCP - General 09/24/10 06/04/23 documented as of this encounter
--- OUTSIDE RECORDS SUMMARY | 2024-07-19 22:16 | XMS_ITS | Clinical Summary ---
Author Organization [facility] [place] [address] Care Team Providers Care Wire Charger Name Role Phone Marco Aleman MD Primary Care Provider [phone] Allergies Active Allergy Reactions Criticality Noted Date Comments Cyclobenzaprine 06/06/2019 Other reaction(s): Unknown Hydroxychloroquine Sulfate Other (See Comments) visual changes Lisinopril Other (See Comments),Angioedem a High 04/20/2017 Tongue swelling Naproxen Sodium 06/06/2019 Other reaction(s): edema Unclassified Drug High 06/06/2019 Shellfish Containing Products Anaphylaxis,Other (See Comments) High 09/09/2018 Swordfish Sulfa (Sulfonamide Antibiotics) Anaphylaxis High Tramadol 06/06/2019 Other reaction(s): DIZZINESS Medications Medication Sig Dispensed Refills Start Date End Date Status nitroGLYcerin (NITROSTAT) 0.4 mg SL tablet 0.4 MG = 1 Tablet(s), Sublingual, prn 11/13/2010 Active buPROPion SR (Wellbutrin SR) 150 mg SR 12 hr tablet Take 450 mg by mouth daily. Active coQ10, ubiquinol, 100 mg Capsule Take 1 capsule by mouth 2 times daily. Active clopidogrel (PLAVIX) 75 mg Tablet Take 1 tablet by mouth daily. 90 tablet 1 04/21/2017 Active aspirin 325 mg Tablet Take 1 tablet by mouth daily. 90 tablet 3 08/11/2018 Active ONETOUCH ULTRA BLUE TEST STRIP Strip use as directed twice a day 0 08/03/2018 Active ONETOUCH ULTRA2 Kit use as directed twice a day 0 08/03/2018 Active cholecalciferol, Vitamin D3, 2,000 unit Capsule Take by mouth. Active lamoTRIgine (LAMICTAL) 25 mg Tablet Take 25 mg by mouth 2 times daily. Active testosterone cypionate (DepoTESTOSTERONE Cypionate) (200mg/mL) injection INJECT 1.5ML INTO THE MUSCLE ONCE WEEKLY. Active niacin (Niacor) 100 mg tablet Take 100 mg by mouth Twice daily. Active magnesium 250 mg tablet Take 500 mg by mouth Daily. Active ascorbic acid, Vitamin C, (Vitamin C) 500 mg tablet Take 1,000 mg by mouth Daily. Active amLODIPine (Norvasc) 10 mg tablet Take 10 mg by mouth daily. Active evolocumab (Repatha) 140 mg/mL Pen InjectorIndications: Hyperlipidemia, unspecified hyperlipidemia type Inject 1 mL subcutaneously every 14 days. 6 mL 3 12/10/2023 Active Active Problems Problem Noted Date Diagnosed Date Systolic murmur 11/05/2023 Assessment & Plan (11/05/2023 12:32 PM EST): His systolic murmur is concerning for aortic valve stenosis. Will assess during stress echocardiogram. Erectile dysfunction after radical prostatectomy 08/12/2023 Peyronie's disease 08/12/2023 Near syncope 08/23/2018 Acute ischemic left MCA stroke 08/10/2018 Overview (09/17/2018): History of left MCA infarct, 2017 Peripheral neuropathy 03/31/2017 Overview (03/31/2017): Probable small fiber neuropathy based on nerve conduction study. Negative fat pad biopsy 2005. Stocking-glove distribution of symptoms. History of syncope 03/31/2017 Overview (03/31/2017): 2006 ECG 11/06 demonstrated a left anterior fascicular [...] with sinus rhythm at the same rate. Asthma 03/31/2017 Rheumatoid arthritis(714.0) 03/31/2017 Malignant neoplasm of prostate 03/31/2017 Overview (03/31/2017): S/p radical prostatectomy Dec 2004 Headache(784.0) 03/31/2017 Chronic back pain 03/31/2017 ASCVD (arteriosclerotic cardiovascular disease) 11/12/2010 Overview (11/04/2023): Dec 2004 MIBI ETT (preop): 10 METS, [...] was ectatic and ulcerated, Echo 11/13/10: EF 70%, no wall motion abnormalities 01/29/17 Echocardiography : LVEF [...] 60% stenosis; mild diffuse disease in the ulv-md-[id number] vessel, LCX - Mild luminal irregularities; prior stent in high OM1 is widely patent, RCA - Large caliber vessel; mid-vessel is ectactic; prior stent in the rPDA is widely patent, LVEDP 11 mmHg; no significant bmcr-bx-ygzg gradient across the aortic valve Assessment & Plan (11/05/2023 12:26 PM EST): Has had two mild episodes of L arm discomfort. Has not been on lipid lowering therapy for years with known CAD with s/p PCIs. CV exam concerning for . Will obtain stress echocardiogram. CIS - CIDP Depression Overview (01/07/2011): On testosterone Hyperlipidemia Overview (03/31/2017): On statins Changed to lipitor given NSTEMI on pravachol with LDL 66 Assessment & Plan (11/05/2023 12:33 PM EST): Will obtain lipid panel, Lp(a), hsCRP. Since he did not tolerate statins, does not remember doses, will try to prescribe PCSK9 inhibitor. Gastroesophageal reflux Overview (01/07/2011): Changed to protonix given newly added plavix dosing Resolved Problems Problem Noted Date Diagnosed Date Resolved Date S/P angioplasty with stent 04/20/2017 0 11/04/2023 Overview (09/17/2018): Non-STEMI 2010, status post JANET to OM1, RPDA, D1 Immunizations Name Administration Dates Next Due Influenza Adjuvanted (FluAd) Trivalent, PF 65yrs + 08/23/2018 Influenza Vaccine, Whole 08/02/2010 Social History Tobacco Use Types Packs/Day Years Used Date Smoking Tobacco: Former Cigarettes Q uit: 08/10/2010 Smokeless Tobacco: Never Tobacco Cessation:Counseling Given: Not Answered Alcohol Use Standard Drinks/Week Comments Yes 14 (1 standard drink = 0.6 oz pu re alcohol) Sex and Gender Information Value Date Recorded Sex Assigned at Not on file Gender Identity Not on file Sexual Orientation Not on file Last Filed Vital Signs Vital Sign Reading Time Taken Comments Blood Pressure 150/83 12/10/2023 2:44 PM EST Pulse 69 12/10/2023 2:44 PM EST Temperature 36.6 ??C (97.9 ??F) 10/24/2019 1:02 PM ES T Respiratory Rate 16 10/24/2019 2:15 PM EST Oxygen Saturation 98% 12/10/2023 2:44 PM EST Inhaled Oxygen Concentration - - Weight 112.4 kg (247 lb 12.8 oz) 12/10/2023 2:44 PM EST Height 180.3 cm (5' 11) 12/10/2023 2:44 PM EST Body Mass Index 34.56 12/10/2023 2:44 PM EST Plan of Treatment Upcoming Encounters Date Type Department Care Team (Late st Contact Info) Description 08/09/2024 10:30 AM EDT Hospital En[place] [address] Navi Montero MD [facility] [address] 08/09/2024 10:30 AM EDT - 08/09/2024 11:15 AM EDT [place] [address] Navi Montero MD [facility] [place] [address] COLONOSCOPY,SCREENI NG (WRVU 3.26) Scheduled Procedures Name Priority Associated Diagnoses Date/Ti me COLONOSCOPY,SCREENING (WRVU 3.26) polyps 08/09/2024 10:30 AM EDT Health Maintenance Due Date Last Done Comments CT Colonography 1950 FIT DNA 1950 FIT 1950 Sigmoidoscopy 1950 Pneumoccocal Vaccine: 65+ (1 of 2 - PCV) 1957 Hepatitis C Screening 1969 Tdap adult 1970 Tetanus vaccine 1970 Zoster vaccine (1 of 2) 2001 Advance Directive 2006 AAA Screen 2016 Colonoscopy 03/08/2024 03/08/2014, 03/08/2014 Colorectal Cancer Screening 03/08/2024 Sigmoidoscopy (10 year) with FIT yearly 03/08/2024 03/08/2014, 03/08/2014 Covid-19 Vaccine (3 - 2023-2 4 season) 2024 09/17/2021, 01/02/2021 Influenza (Flu) vaccine (1 o f 1 - Influenza standard series) 07/03/2024 08/23/2018, 08/02/2010 Lipid Screening 11/05/2028 11/05/2023, 06/2018, 11/13/2010 Diabetes Screening (HgbA1C o r Glucose) Discontinued 08/22/2018, 08/10/2018, 08/10/2018, Additional history exists Medical Devices Implanted Type Area Graining Operator Device Identifier Shelf Expiration Date Model / Serial / Lot Mdt : Lnq11 : [id number] Implanted:12/2018 (Quantity not on file) Implantable Diagnostic Monitor [employer] [id number] / [id number] S / Procedures Procedure Name Priority Date/Time Associated Diagnosis Comments LIPID PANEL (REFLEX DIRECT LDL) Routine 11/05/2023 1:06 PM EST Hyperlipidemia, unspecified hyperlipidemia type BASIC METABOLIC PANEL STAT 08/22/2018 9:30 PM EDT COLONOSCOPY Routine 03/08/2014 9:33 AM EDT from Last 3 Months or Most Recently Relevant to Health Maintenance Results * Lipid Panel (Reflex Direct LDL) (11/05/2023 1:06 PM EST) Cholesterol, Total 186 mg/dL [facility] Comment: Lower Risk: <200 mg/dL Average Risk: 200-239 mg/dL Higher Risk: >yu=129 mg/dL Triglyceride 314 mg/dL [facility] Comment: Average Risk/Lower Risk: <150 mg/dL Borderline High Risk: 150-199 mg/dL High Risk: 200-499 mg/dL Very High Risk: >qb=786 mg/dL HDL Cholesterol 39 mg/dL [facility] Comment: Males: ?? Higher Risk: <40 mg/dL Females: ?? Higher Risk: <50 mg/dL LDL Cholesterol 84 mg/dL [facility] Comment: Lowest Risk: <100 mg/dL Lower Risk: 100-129 mg/dL Borderline High Risk: 130-159 mg/dL High Risk: 160-189 mg/dL Very High Risk: >gp=097 mg/dL Cholesterol/HDL Ratio 4.8 ratio [facility] Lipid Interpretation See Note [facility] Comment: Lipid management should be guided by a patient? s ASCVD risk, goals and preferences. ACC/AHA Guidelines recommend high intensity statin if clinical ASCVD or LDL greater than or equal to 190 mg/dL. [email or web address]-[email or web address]-[email or web address] Adults aged 40-75 with LDL 70-189 mg/dL should have their 10 year ASCVD risk estimated with the ACC/AHA ASCVD risk crating and moving estimator http://tools.acc.org/NDFSS-Xqcm-Uzbbbnlck/ Statin should be discussed if risk greater than or equal to 7.5% in non-diabetics. With diabetes, moderate intensity statin is recommended if risk less than 7.5%, high intensity if risk greater than or equal to 7.5%. Annual lipid monitoring on statins is not necessary. Evaluate secondary causes of Triglycerides greater than 500 mg/dL or LDL greater than 190 mg/dL: See table 6 of ACC/AHA Guideline. Lifestyle modification is a critical component of ASCVD risk reduction. Blood 11/05/2023 1:06 PM EST 11/05/2023 1:12 PM EST Narrative Resulting Agency Comment Spec In Lab Nacho Tyler MD CHEMISTRY ORDERABLES [facility] [place] [address] * Basic Metabolic Panel (non-fasting) (08/22/2018 9:30 PM EDT) Glucose 77 65 - 199 mg/dL [facility] Comment:Diabetes: >=200 mg/d L plus symptoms Blood Urea Nitrogen 16 10 - 20 mg/dL [facility] Creatinine 1.06 0.80 - 1.50 mg/dL [facility] Sodium 140 135 - 145 mmol/L [facility] Potassium 4.3 3.5 - 5.0 mmol/L [facility] Comment: Please note: ??Patients with WBC >100,000 may have falsely elevated Potassium levels. ??For accurate Potassium quantification in these patients send serum separator tube (gold top) for subsequent determinations. ??Contact the Clinical Chemistry Laboratory if there are any questions. Chloride 101 98 - 107 mmol/L [facility] Carbon Dioxide 28 22 - 31 mmol/L [facility] Anion Gap 11 5 - 15 mmol/L [facility] Calcium 9.6 8.5 - 10.5 mg/dL [facility] Est Glomerular Filtration Rate 72 >=60 mL/min/1. 73 m?? [facility] Comment: The eGFR was calculated using the CKD-EPI equation. As with all creatinine based estimates of kidney function, eGFR values calculated with the CKD-EPI equation are not accurate in patients with acute kidney failure, extremes of body mass or the acutely ill. http://[employer]/EnteroMedicsnkf eGFR 84 >=60 mL/min/1. 73 m?? [facility] Comment: The eGFR was calculated using the CKD-EPI equation. As with all creatinine based estimates of kidney function, eGFR values calculated with the CKD-EPI equation are not accurate in patients with acute kidney failure, extremes of body mass or the acutely ill. [email or web address]/EnteroMedicsnkf Blood specimen (specimen) 08/22/2018 9:30 PM EDT 08/22/2018 9:58 PM EDT Narrative Resulting Agency Comment Spec In Lab Brenna Corbett MD CHEMISTRY ORDERABLES [facility] [place] [address] * COLONOSCOPY (03/08/2014 9:33 AM EDT) COLONOSCOPY [facility] Endoscopy ___ Patient Name: Roland Angel ? Procedure Date: 03/08/2014 9:33 AM ? Date of : 1950 ? Age: 63 ? Order #: [id number] ? ___ Procedure: ? Colonoscopy Indications: ? Abdominal pain in the right lower ? quadrant, Change in bowel habits, ? Constipation Patient Profile: ? change in bowel habits about 2 months ? ago with hx diarrhea now only ? constipation, also RLQ discomfort and ? brbpr (for a few years), hx ? prostatectomy 9 years ago, ? osteoarthritis, asthma, peripheral ? neuropathy, s/p cardiac stent around ? 5 years ago with no recent symptoms, ? off plavix for over a year (changed ? in e-DH), s/p sinus operation, foot ? surgery, hx claustrophobia Providers: ? Brandy Dickerson MD, Donnell Fonseca, ? RN, Brenna Cantor, Ship Runner Referring MD: ?Vel Santos MD Medicines: ? Midazolam 3.5 mg IV, Fentanyl 175 ? micrograms IV. This resulted in the ? patient being appropriately sedated ? and comfortable for the procedure, ? which he tolerated extremely well Complications: ? No immediate complications. ___ Procedure: [...] and informed consent was obtained. ? - Airway Examination: normal ? oropharyngeal airway and neck ? mobility. ? - Respiratory Examination: clear to ? auscultation. ? - CV Examination: normal. ? - ASA Grade Assessment: II - A ? patient with mild systemic disease. ? - After reviewing the risks and ? benefits, the patient was deemed in ? satisfactory condition to undergo the ? procedure. ? - The anesthesia plan was to use ? moderate sedation/analgesia ? (conscious sedation). ? - Immediately prior to administration ? of medications, the patient was ? re-assessed for adequacy to receive ? sedatives. ? - Sedation was administered by an ? endoscopy nurse. The sedation level ? attained was moderate. ? - The heart rate, respiratory rate, ? oxygen saturations, blood pressure, ? adequacy of pulmonary ventilation, ? and response to care were monitored ? throughout the procedure. ? - The physical status of the patient ? was re-assessed after the procedure. ? The procedure, indications, benefits, ? risks and alternatives were explained ? to the patient. Specifically ? discussed were potential ? complications including, but not ? limited to, bleeding, perforation, ? infection, missing a cancer, and ? adverse medication reactions. The ? patient was placed in the left ? lateral decubitus position, and a ? digital rectal exam was performed. ? The Colonoscope was inserted in the ? anus and under direct visualization, ? advanced to the cecum, identified by ? appendiceal orifice & ileocecal ? valve. Careful inspection was made as ? the colonoscope was withdrawn. The ? quality of the bowel preparation was ? good. ? Findings: ? The entire examined colon appeared normal. ? Impression: ?- The entire examined colon is normal. Recommendation: ?- Current recommendations for average ? risk individuals is to repeat ? colonoscopy in 10 years for screening ? purposes. He will f/u with his PCP. ? Also, pt had deferred the abdominal ? CT ordered by his PCP thinking it was ? similar to the colo, but will f/u ? with his PCP now. ? - Return to primary care physician. ? Brandy Dickerson MD 03/08/2014 10:32 AM This report has been signed electronically. Number of Addenda: 0 Note Initiated On: 03/08/2014 9:33 AM PROVATION 03/08/2014 9:33 AM EDT Vel Santos MD GENERAL SURGICAL ORD ERABLES [employer]OVATION from Last 3 Months or Most Recently Relevant to Health Maintenance Advance Directives Documents on File Type Date Recorded Patient School Commissioner Juan ricketts Personal School Commissioner 09/01/2018 4:14 PM sunshine fleming Personal School Commissioner 08/27/2018 8:13 AM xin angel Personal School Commissioner 08/23/2018 2:18 PM * Full Code (Latest Code Status on File) Date Activated Date Inactivated Comments 10/24/2019 1:09 PM 10/24/2019 4:43 PM Question Answer Comments Does patient have capacity to make decision: Yes * Full Code Date Activated Date Inactivated Comments 09/23/2019 11:46 AM 09/23/2019 4:20 PM Question Answer Comments Does patient have capacity to make decision: Yes * Full Code Date Activated Date Inactivated Comments 11/04/2018 11:07 AM 11/04/2018 3:47 PM Question Answer Comments Does patient have capacity to make decision: Yes * Full Code Date Activated Date Inactivated Comments 11/04/2018 10:59 AM 11/04/2018 11:07 AM Question Answer Comments Does patient have capacity to make decision: Yes * Full Code Date Activated Date Inactivated Comments 09/01/2018 2:28 PM 11/04/2018 10:37 AM Question Answer Comments Does patient have capacity to make decision: Yes Care Teams Wire Charger Relationship Specialty Start Date End Date Marco Aleman MD [address] [place] [address] PCP - General Family Medicine 06/05/23
--- OUTSIDE RECORDS SUMMARY | 2024-07-19 22:16 | XMS_ITS | Encounter Summary ---
Author Organization [facility] [place] [address] Care Team Providers Care Bone Drier Name Role Phone Vel Santos MD Primary Care Provider [phone] Encounter Details Date Type Department Care Team (Late st Contact Info) Description 08/01/2019 Telephone Cardiology at [address] [phone] Moon South RN Social History Tobacco Use Types Packs/Day Years [...] encounter Miscellaneous Notes * Telephone Encounter - Moon South RN - 08/01/2019 5:54 PM EDT He was dizzy and out of control and thought he would pass out. His neurologist thinks this is seizure activity that was provoked by Wellbutrin and since being off this it has reduced the incidence by95% though today this was a strong one. His heart rate looks regular and in the 50's. documented in this encounter Plan of Treatment Upcoming Encounters Date Type Department Care Team (Late st Contact Info) Description 08/09/2024 10:30 AM EDT Hospital Encounter [place] [address] Navi Montero MD [facility] [place] [address] 08/09/2024 10:30 AM EDT - 08/09/2024 11:15 AM EDT [place] [address] Navi Montero MD [facility] [place] [address] COLONOSCOPY,SCREENI NG (WRVU 3.26) Scheduled Procedures Name Priority Associated Diagnoses Date/Ti me COLONOSCOPY,SCREENING (WRVU 3.26) polyps 08/09/2024 10:30 AM EDT documented as of this encounter Visit Diagnoses Not on filedocumented in this encounter Care Teams Bone Drier Relationship Specialty Start Date End Date Vel Santos MD [address] [place] [phone] PCP - General 09/24/10 06/04/23 documented as of this encounter
--- OUTSIDE RECORDS SUMMARY | 2024-07-19 22:16 | XMS_ITS | Encounter Summary ---
Author Organization [facility] Address [facility] [place] [address] Care Team Providers Care Child Care Nurse Name Role Phone Marco Aleman MD Primary Care Provider [phone] Encounter Details Date Type Department Care Team (Late st Contact Info) Description 09/09/2023 Orders [place] [phone] Uriah Ramirez MD [facility] [place] [address] Erectile dysfunction after radical prostatectomy; Peyronie's disease [...] 10:30 AM EDT Hospital Encounter [place] [phone] Navi Montero MD [facility] [place] [address] 08/09/2024 10:30 AM EDT - 08/09/2024 11:15 AM EDT Surgery [place] [address] Navi Montero MD [facility] [place] [address] COLONOSCOPY,SCREENI NG (WRVU 3.26) Scheduled Procedures Name Priority Associated Diagnoses Date/Ti nj COLONOSCOPY,SCREENING (WRVU 3.26) polyps 08/09/2024 10:30 AM EDT documented as of this encounter Visit Diagnoses Diagnosis Erectile dysfunction after radical prostatectomy Peyronie's disease documented in this encounter Care Teams Child Care Nurse Relationship Specialty Start Date End Date Marco Aleman MD [address] [place] [id number] PCP - General Family Medicine 06/05/23 documented as of this encounter
--- OUTSIDE RECORDS SUMMARY | 2024-07-19 22:16 | XMS_ITS | Encounter Summary ---
Author Organization [facility] [place] [address] Care Team Providers Care Drum Sander Setter Name Role Phone Marco Aleman MD Primary Care Provider [phone] Reason for Visit * Reason Onset Date Comments Medication Refill 11/06/2023 Encounter Details Date Type Department Care Team (Late st Contact Info) Description 11/06/2023 Refill Cardiology at [address] [address] Nacho Tyler MD [facility] [place] [address] Medication Refill Social History Tobacco Use Types Packs/Day [...] Miscellaneous Notes * Telephone Encounter - Stella Zarate RN - 11/06/2023 9:08 AM EST Spoke with Mr Vega, who states he will take 140 mg, Repatha, Q 14 days,. Prescription being pended to MD for review and signature. Stella Zarate (Jodie), RN, BSN [facility] documented in this encounter Plan of Treatment Upcoming Encounters Date Type Department Care Team (Late st Contact Info) Description 08/09/2024 10:30 AM EDT Hospital Encounter [place] [address] Navi Montero MD [facility] [place] [address] 08/09/2024 10:30 AM EDT - 08/09/2024 11:15 AM EDT [place] [address] Navi Montero MD [facility] [place] [address] COLONOSCOPY,SCREENI NG (WRVU 3.26) Scheduled Procedures Name Priority Associated Diagnoses Date/Ti me COLONOSCOPY,SCREENING (WRVU 3.26) polyps 08/09/2024 10:30 AM EDT documented as of this encounter Visit Diagnoses Diagnosis Hyperlipidemia, unspecified hyperlipidemia type documented in this encounter Care Teams Drum Sander Setter Relationship Specialty Start Date End Date Marco Aleman MD [address] [place] [address] PCP - General Family Medicine 06/05/23 documented as of this encounter
--- OUTSIDE RECORDS SUMMARY | 2024-07-19 22:16 | XMS_ITS | Encounter Summary ---
[place] [address] Care Team Providers Care Shopper Marketing Manager Name Role Phone Vel Santos MD Primary Care Provider [phone] Encounter Details Date Type Department Care Team (Late st Contact Info) Description 10/04/2019 Telephone [place] [phone] Saul Vegas Social History Tobacco Use Types [...] Miscellaneous Notes * Telephone Encounter - Erma Boston - 10/07/2019 12:07 PM EST Referral finally came in. I spoke to pt's (she called to follow up), but pt was also next to her talking. I let them know it was here and that I would notify you. Should I actually have it reviewed if it isnt urgent or should I just send it to [facility] for scheduling? * Telephone Encounter - Saul Vegas - 10/04/2019 9:46 AM EST Took call from scheduling. Pt expressed that he is frustrated that a referral has not been received from his PCP. After reviewing the chart, I explained to him that at this point we still have not received it. Advised patient to contact his PCP's office and ask them to resubmit it as urgent, and to have themcall our office once they had, so we can confirm that we have received it. Once we have received it, will have referral triaged by fellows for urgency and scheduling, and will contact patient. documented in this encounter Plan of Treatment Upcoming Encounters Date Type Department Care Team (Late st Contact Info) Description 08/09/2024 10:30 AM EDT Hospital Encounter [place] [address] Navi Montero MD [facility] [place] [address] 08/09/2024 10:30 AM EDT - 08/09/2024 11:15 AM EDT Surgery [place] [address] Navi Montero MD [facility] [place] [address] COLONOSCOPY,SCREENI NG (WRVU 3.26) Scheduled Procedures Name Priority Associated Diagnoses Date/Ti me COLONOSCOPY,SCREENING (WRVU 3.26) polyps 08/09/2024 10:30 AM EDT documented as of this encounter Visit Diagnoses Not on filedocumented in this encounter Care Teams Shopper Marketing Manager Relationship Specialty Start Date End Date Vel Santos MD [address] [place] [phone] PCP - General 09/24/10 06/04/23 documented as of this encounter
--- OUTSIDE RECORDS SUMMARY | 2024-07-19 22:16 | XMS_ITS | Encounter Summary ---
Author Organization [facility] [place] [address] Care Team Providers Care Routing Clerk Name Role Phone Marco Aleman MD Primary Care Provider Reason for Referral * Consultation (Routine) - Closed Specialty Diagnoses / Procedures Referred By Yi t Referred To Contact Urology Diagnoses Erectile dysfunction of nonorganic origin Coronary artery disease, unspecified vessel or lesion type, unspecified whether angina present, unspecified whether [place] or transplanted heart ED Marco Aleman MD [address] [place] [address] Uriah Ramriez MD [facility] [place] [address] Referral ID Status Reason Start Date Expiration Date V isits Requested Visits Authorized [id number] Closed Consult, Test & Treat PCP Updated and/or Approved 06/05/2023 06/04/2024 12 12 Encounter Details Date Type Department Care Team (Latest Contact Info) Description 06/05/2023 Transcribe Orders eDH Incoming Referrals [phone] Marco Aleman MD [address] [place] [address] Erectile dysfunction of nonorganic origin; Coronary artery disease, unspecified vessel or lesion type, unspecified whether angina present, unspecified whether [place] or transplanted heart Social History Tobacco Use Types Packs/Day Years [...] 10:30 AM EDT Hospital En[place] [address] Navi Montero MD [facility] [place] [address] 08/09/2024 10:30 AM EDT - 08/09/2024 11:15 AM EDT [place] [address] Navi Montero MD [facility] [place] [address] COLONOSCOPY,SCREENI NG (WRVU 3.26) Scheduled Procedures Name Priority Associated Diagnoses Date/Ti me COLONOSCOPY,SCREENING (WRVU 3.26) polyps 08/09/2024 10:30 AM EDT Scheduled Referrals Name Type Priority Associated Diagnoses Orde r Schedule Referral to Urology Outpatient Referral Routine Erectile dysfunction of nonorganic origin Coronary artery disease, unspecified vessel or lesion type, unspecified whether angina present, unspecified whether [place] or transplanted heart Ordered: 06/05/2023 documented as of this encounter Visit Diagnoses Diagnosis 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
--- OUTSIDE RECORDS SUMMARY | 2024-07-19 22:16 | XMS_ITS | Encounter Summary ---
Author Organization [facility] [place] [address] Care Team Providers Care Credit Union Manager Name Role Phone Vel Santos MD Primary Care Provider [phone] Encounter Details Date Type Department Care Team (Late st Contact Info) Description 08/15/2019 Telephone Cardiology at [address] [phone] Moon South RN Social History Tobacco Use [...] Telephone Encounter - Moon South RN - 08/15/2019 8:46 AM EDT Getting stabbing pains in his chest over his heart. He said he has had angina in the past and that was more of a dull achy feeling for him. The stabbing came and went lasting about 10-15 minutes each. His B/P was 145/90-high for him at the time. He then went to bed and has had none since. He has NTG S/L but has only taken it one ever. He is aware these transmissions donot diagnose AL. documented in this encounter Plan of Treatment Upcoming Encounters Date Type Department Care Team (Late st Contact Info) Description 08/09/2024 10:30 AM EDT Hospital En[place] [address] Navi Montero MD [facility] [place] [address] 08/09/2024 10:30 AM EDT - 08/09/2024 11:15 AM EDT [place] [phone] Navi Montero MD [facility] [place] [address] COLONOSCOPY,SCREENI NG (WRVU 3.26) Scheduled Procedures Name Priority Associated Diagnoses Date/Ti me COLONOSCOPY,SCREENING (WRVU 3.26) polyps 08/09/2024 10:30 AM EDT documented as of this encounter Visit Diagnoses Not on filedocumented in this encounter Care Teams Credit Union Manager Relationship Specialty Start Date End Date Vel Santos MD [address] [place] [phone] PCP - General 09/24/10 06/04/23 documented as of this encounter
--- OUTSIDE RECORDS SUMMARY | 2024-07-19 22:16 | XMS_ITS | Encounter Summary ---
Author Organization [facility] Address [facility] [place] [address] Care Team Providers Care Well Service Pump Equipment Operator Name Role Phone Marco Aleman MD Primary Care Provider [phone] Encounter Details Date Type Department Care Team (Latest Contact Info) Description 11/23/2023 Travel Social History Tobacco Use Types Packs/Day [...] 10:30 AM EDT Hospital Encounter [place] [address] Navi Montero MD [facility] [address] 08/09/2024 10:30 AM EDT - 08/09/2024 11:15 AM EDT Surgery [place] [phone] Navi Montero MD [facility] [place] [address] COLONOSCOPY,SCREENI NG (WRVU 3.26) Scheduled Procedures Name Priority Associated Diagnoses Date/Ti me COLONOSCOPY,SCREENING (WRVU 3.26) polyps 08/09/2024 10:30 AM EDT documented as of this encounter Visit Diagnoses Not on filedocumented in this encounter Care Teams Well Service Pump Equipment Operator Relationship Specialty Start Date End Date Marco Aleman MD [address] [place] [address] PCP - General Family Medicine 06/05/23 documented as of this encounter
--- OUTSIDE RECORDS SUMMARY | 2024-07-19 22:16 | XMS_ITS | Encounter Summary ---
Author Organization [facility] Address [facility] [place] [address] Care Team Providers Care Service Tester Name Role Phone Vel Santos MD Primary Care Provider [phone] Encounter Details Date Type Department Care Team (Late st Contact Info) Description 08/31/2019 Orders Only Cardiology at [address] [phone] Social History Tobacco Use Types Packs/Day Years [...] 10:30 AM EDT Hospital Encounter [place] [phone] Navi Montero MD [facility] [place] [address] 08/09/2024 10:30 AM EDT - 08/09/2024 11:15 AM EDT [place] [phone] Navi Montero MD [facility] [place] [address] COLONOSCOPY,SCREENI NG (WRVU 3.26) Scheduled Procedures Name Priority Associated Diagnoses Date/Ti me COLONOSCOPY,SCREENING (WRVU 3.26) polyps 08/09/2024 10:30 AM EDT documented as of this encounter Procedures Procedure Name Priority Date/Time Associated Diagnosis Comments CARDIAC DEVICE CHECK - REMOTE Routine 08/31/2019 6:41 PM EDT documented in this encounter Results * Cardiac Device Check - Remote (08/31/2019 6:41 PM EDT) Date Time Interrogation Session [id number] [employer] Implantable Pulse Generator Education Courses Sales Representative [employer] Implantable Pulse Generator Model [id number] [employer] Implantable Pulse Generator Serial Number [id number] [employer] Type Interrogation Session Remote [employer] Implantable Pulse Generator Type Implantable Diagnostic Monitor [employer] Implantable Pulse Generator Implant Date [id number] [employer] Anatomical Region Laterality Modality Other 08/31/2019 6:41 PM EDT Physician Cardiology IMPLANTABLE CARD IAC DEVICE documented in this encounter Visit Diagnoses Not on filedocumented in this encounter Care Teams Service Tester Relationship Specialty Start Date End Date Vel Santos MD [address] [place] [phone] PCP - General 09/24/10 06/04/23 documented as of this encounter
--- OUTSIDE RECORDS SUMMARY | 2024-07-19 22:16 | XMS_ITS | Encounter Summary ---
Author Organization [facility] [place] [address] Care Team Providers Care Press Pipe Inspector Name Role Phone Vel Santos MD Primary Care Provider [phone] Encounter Details Date Type Department Care Team (Latest Contact Info) Description 10/24/2019 12:25 PM EST - 10/24/2019 2:43 PM EST Hospital Encounter [place] [address] Donavan Dunaway MD [facility] [place] [address] Discharge Disposition: Home Social History Tobacco Use [...] Sign Reading Time Taken Comments Blood Pressure 108/71 10/24/2019 2:15 PM EST Pulse 58 10/24/2019 1:02 PM EST Temperature 36.6 ??C (97.9 ??F) 10/24/2019 1:02 PM ES T Respiratory Rate 16 10/24/2019 2:15 PM EST Oxygen Saturation 95% 10/24/2019 2:15 PM EST Inhaled Oxygen Concentration - - [...] the day after the procedure, use an oayw-vlz-htagzoc spray to numb your throat. Sucking on [...] occurs, please contact your Doctor. Please call [phone] before 8pm Mon-Fri with problems, questions or concerns. If you call after 8pm or on weekends, call the Hospital at [phone] and ask to speak to the Factory Expert firestop/containment worker and the welding machine operator gas will contact that person for you. When should you call for help? Call [phone] anytime you think you may need emergency [...] any problems. Where can you learn more? [facility]- View your After Visit Summary and more online at [email or web address] If you would like to provide feedback about your hospital experience, please call the Office of Patient and Family Relations at . If you have received this After Visit Summary in error, please immediately return it in person to the department, or notify the [facility] Privacy Office by calling toll free at between the hours of 8AM and 5PM to arrange for our retrieval of the documents at no cost to you. Content Version: 12.2 ?? 7780-1338 [employer]. Care instructions adapted under license by [facility]. If you have questions about a medical condition or this instruction, always ask your healthcare professional. [employer] disclaims any warranty or liability for your [...] Dunaway MD - 10/24/2019 1:45 PM EST [facility] Operative Note Patient Name: Roland Vega : [id number] MR#: [id number] Case Date: 10/24/2019 Surgeon: Surgeon(s) and Role: [...] 10:30 AM EDT Hospital Encounter [place] [address] Navi Montero MD [facility] [place] [address] 08/09/2024 10:30 AM EDT - 08/09/2024 11:15 AM EDT Surgery [place] [address] Navi Montero MD [facility] [place] [address] COLONOSCOPY,SCREENI NG (WRVU 3.26) Scheduled Procedures Name Priority Associated Diagnoses Date/Ti me COLONOSCOPY,SCREENING (WRVU 3.26) polyps 08/09/2024 10:30 AM EDT documented as of this encounter Procedures Procedure Name Priority Date/Time Associated Diagnosis Comments Upper GI Endoscopy, Diagnostic (08423) 10/24/2019 1:36 PM EST REFLUX ESOPHAGITIS Ok per AISLINN UPPER GI ENDOSCOPY Routine 10/24/2019 1: 17 PM EST documented in this encounter Results * UPPER GI ENDOSCOPY (10/24/2019 1:17 PM EST) UPPER GI ENDOSCOPY [facility] Endoscopy ___ Procedure Date: 10/24/2019 1:17 PM ? Patient Name: Roland Vega ? Date of : 1950 ? Age: 69 ? Order #: [id number] ? Instrument Name: [id number] ? ___ Procedure: ? Upper GI endoscopy Indications: ? Follow-up of gastro-esophageal reflux ? disease, chronic cough, atypical ? chest pain Providers: ? Donavan Dunaway MD, Yanelis Queen. ? GLORIA Golden, Mya Bower, ? Surgery Attendant Referring MD: ?Vel Santos MD Medicines: ? [...] (CANCELED) 100 mL/hr, Intravenous, CONTINUOUS, Starting on Thu10/24/19 at 1315, Until Thu10/24/19 at 1443, Endoscopy (Day of Procedure) 1326 (New Bag - Prov ider: Teresa Johnson RN)1342 (Stopped - Provider: Akila Tavarez CRNA) documented in this encounter Care Teams Press Pipe Inspector Relationship Specialty Start Date End Date Vel Santos MD [address] [place] [phone] PCP - General 09/24/10 06/04/23 documented as of this encounter
--- OUTSIDE RECORDS SUMMARY | 2024-07-19 22:16 | XMS_ITS | Encounter Summary ---
Author Organization [facility] [place] [address] Care Team Providers Care Elevator Installer Name Role Phone Vel Santos MD Primary Care Provider [phone] Encounter Details Date Type Department Care Team (Late st Contact Info) Description 06/06/2019 Telephone Cardiology at [address] [phone] Moon South, RN Social History Tobacco Use Types Packs/Day [...] Telephone Encounter - Moon South RN - 06/06/2019 2:09 PM EDT I called him to review symptom activations on his ILR. I encouraged him to send manual transmissions after every symptom activation and to call and let us know what the symptoms were. The 06/01/19 episode was pain under his left pectoral muscle, that lasted about 10 minutes. Other times he has had presyncopal episodes, but he has never passed. He states that if the chest pain would have continuedhe would have gone to the hospital, as I told him this would not diagnose an [place]. documented in this encounter Plan of Treatment Upcoming Encounters Date Type Department Care Team (Late st Contact Info) Description 08/09/2024 10:30 AM EDT Hospital Encounter [place] [address] Navi Montero MD [facility] [place] [address] 08/09/2024 10:30 AM EDT - 08/09/2024 11:15 AM EDT Surgery [place] [address] Navi Montero MD [facility] [place] [address] COLONOSCOPY,SCREENI NG (WRVU 3.26) Scheduled Procedures Name Priority Associated Diagnoses Date/Ti me COLONOSCOPY,SCREENING (WRVU 3.26) polyps 08/09/2024 10:30 AM EDT documented as of this encounter Visit Diagnoses Not on filedocumented in this encounter Care Teams Elevator Installer Relationship Specialty Start Date End Date Vel Santos MD [address] [place] [phone] PCP - General 09/24/10 06/04/23 documented as of this encounter
--- OUTSIDE RECORDS SUMMARY | 2024-07-19 22:16 | XMS_ITS | Encounter Summary ---
[place] [address] Care Team Providers Care Game Programmer Name Role Phone Marco Aleman MD Primary Care Provider [phone] Reason for Visit * Reason Comments Prior Authorization Repatha Sureclick 14 0mg/ml Encounter Details Date Type Department Care Team (Late st Contact Info) Description 11/19/2023 Specialty [place] [address] Nata Rubio, MOSAIC LAYER Social History Tobacco Use Types Packs/Day Years Used Date Smoking Tobacco: Former Cigarettes Q uit: 08/10/2010 Smokeless Tobacco: Never Alcohol Use Standard Drinks/Week Comments Yes 14 (1 standard drink = 0.6 oz pu re alcohol) Sex and Gender Information Value Date Recorded Sex Assigned at Not on file Gender Identity Not on file Sexual Orientation Not on file documented as of this encounter Progress Notes * Nata Rubio - 11/19/2023 3:37 PM EST [facility], Medication Prior Authorization Submission Patient: Roland Tangchaya Patient : 1950 Patient Address: [address] [facility] [address] Phone: [phone] (home) Medication Name: REPATHA SURECLICK 140 MG/ML SUBCUTANEOUS PEN INJECTOR Medication ID: Subscriber Insurance: [employer] Medicare Subscriber Insurance Comment: Fax: Physician: JAYDA IRVING Physician Comment: Sent Via: [facility] Hyatt: [id number] Ref/Case/PA#: n/a Medication Strength Frequency Requested: Repatha Sureclick 140mg/ml- Inject the contents of 1 pen (140mg) subcutaneously every 28 days Qty/Day Supply: New Start: New to Therapy Diagnosis & ICD-10 Code: ASCVD-I25.10 Patient Notified: No Submission Notes: Charmaine Rubio 11/19/23 3:40 PM * Jake Celis - 11/19/2023 3:37 PM EST [facility] Specialty Pharmacy, Prior Authorization Approval Medication Name: REPATHA SURECLICK 140 MG/ML SUBCUTANEOUS PEN INJECTOR Medication ID: Approval Dates: 11/02/2023 to 11/01/2024 Insurance requirements/notes: None Other Notes: None Case/Reference #: [id number] Approval notification Received via: [facility] Copay: $742.35 Copay assistance: Copay Notes: Insurance mandated Pharmacy: Unknown Fillable at [facility] Specialty Pharmacy: Yes Patient Notified: No Pharmacy staff will be reaching out to the patient to inform them of their medication's [facility]. If applicable, a pharmacist will speak with the patient to offer our specialty pharmacy services and to arrange delivery of their medication. Jake Celis 11/20/23 10:38 AM documented in this encounter Plan of Treatment Upcoming Encounters Date Type Department Care Team (Late st Contact Info) Description 08/09/2024 10:30 AM EDT Hospital Encounter [place] [address] Navi Montero MD [facility] [place] [address] 08/09/2024 10:30 AM EDT - 08/09/2024 11:15 AM EDT Surgery [place] [address] Navi Montero MD [facility] [place] [address] COLONOSCOPY,SCREENI NG (WRVU 3.26) Scheduled Procedures Name Priority Associated Diagnoses Date/Ti me COLONOSCOPY,SCREENING (WRVU 3.26) polyps 08/09/2024 10:30 AM EDT documented as of this encounter Visit Diagnoses Not on filedocumented in this encounter Care Teams Game Programmer Relationship Specialty Start Date End Date Marco Aleman MD [address] [place] [address] PCP - General Family Medicine 06/05/23 documented as of this encounter
--- OUTSIDE RECORDS SUMMARY | 2024-07-19 22:16 | XMS_ITS | Encounter Summary ---
Author Organization [facility] [place] [address] Care Team Providers Care Aluminum Boat Assembly Supervisor Name Role Phone Vel Santos MD Primary Care Provider [phone] Encounter Details Date Type Department Care Team (Late st Contact Info) Description 06/15/2019 Telephone Cardiology at [address] [phone] Avelina Aragon RN Social History Tobacco Use Types Packs/Day [...] encounter Miscellaneous Notes * Telephone Encounter - Avelina Aragon RN - 06/17/2019 8:18 AM EDT Return call to patient- and spoke with spouse- Xin- who was given the following response from - He can stop the plavix for 7 days as requested. ??Restart a few days after surgery when OK from surgery standpoint. Thanks Shaun Mrs. Vega verbalized her understanding and will relay the message to her . She has no other concerns at this time. Patient and spouse know how to contact Cardiology office and understands they may do so at any timewith further questions or concerns. Avelina Aragon RN, BSN Ambulatory Cardiology Department * Telephone Encounter - Avelina Aragon RN - 06/15/2019 2:28 PM EDT Return call to patient spouse who left earlier message asking if he could be taken off of plavix for 7 days prior to anticipated left arm surgery to remove cyst on left bicep. Advised patient that I would forward the message to Dr. Rubio and get back with his response. Verbalized understanding and agreement to this plan. No other concerns at this time. Patient knows how to contact Cardiology office and understands he may do so at any time with further questions or concerns.\ Avelina Aragon RN, BSN Ambulatory Cardiology Department documented in this encounter Plan of Treatment Upcoming Encounters Date Type Department Care Team (Late st Contact Info) Description 08/09/2024 10:30 AM EDT Hospital En[place] [address] Navi Montero MD [facility] [place] [address] 08/09/2024 10:30 AM EDT - 08/09/2024 11:15 AM EDT [place] [address] Navi Montero MD [facility] [place] [address] COLONOSCOPY,SCREENI NG (WRVU 3.26) Scheduled Procedures Name Priority Associated Diagnoses Date/Ti me COLONOSCOPY,SCREENING (WRVU 3.26) polyps 08/09/2024 10:30 AM EDT documented as of this encounter Visit Diagnoses Not on filedocumented in this encounter Care Teams Aluminum Boat Assembly Supervisor Relationship Specialty Start Date End Date Vel Santos MD [address] [place] [phone] PCP - General 09/24/10 06/04/23 documented as of this encounter
--- OUTSIDE RECORDS SUMMARY | 2024-07-19 22:16 | XMS_ITS | Encounter Summary ---
Author Organization [facility] Address [facility] [place] [address] Care Team Providers Care President Consumer Electronics Company Name Role Phone Vel Santos MD Primary Care Provider [phone] Encounter Details Date Type Department Care Team (Late st Contact Info) Description 09/13/2019 External Results Cardiology at [address] [phone] Social History Tobacco Use Types Packs/Day Years [...] 10:30 AM EDT Hospital Encounter [place] [phone] Navi Montero MD [facility] [place] [address] 08/09/2024 10:30 AM EDT - 08/09/2024 11:15 AM EDT [place] [phone] Navi Montero MD [facility] [place] [address] COLONOSCOPY,SCREENI NG (WRVU 3.26) Scheduled Procedures Name Priority Associated Diagnoses Date/Ti me COLONOSCOPY,SCREENING (WRVU 3.26) polyps 08/09/2024 10:30 AM EDT documented as of this encounter Procedures Procedure Name Priority Date/Time Associated Diagnosis Comments EP DEVICE SCAN Routine 08/14/2019 documented in this encounter Results * Scan Doc: EP Device (08/14/2019) Anatomical Region Laterality Modality Other Historical Provider MEDIA MGR SCAN EX T ORDR/RSLT documented in this encounter Visit Diagnoses Not on filedocumented in this encounter Care Teams President [employer] Relationship Specialty Start Date End Date Vel Santos MD [address] [place] [phone] PCP - General 09/24/10 06/04/23 documented as of this encounter
--- OUTSIDE RECORDS SUMMARY | 2024-07-19 22:16 | XMS_ITS | Encounter Summary ---
Author Organization [facility] [place] [address] Care Team Providers Care Photogrammetric Technician Name Role Phone Vel Santos MD Primary Care Provider [phone] Encounter Details Date Type Department Care Team (Late st Contact Info) Description 10/24/2019 1:30 PM EST Anesthesia [place] [address] Ernst Sevilla MD [facility] [place] [address] Anesthesia Record Procedure Summary Procedure Name Responsible Anesthesiologist Anesthesia Start Time Anesthesia Stop Time EGD, UPPER GI ENDOSCOPY (WRVU 2.09) (Trunk) Ernst Sevilla MD 10/24/19 1330 10/24/19 1351 Events Date Time Event Comment 10/24/2019 1308 1330 AN Verify 1330 Start 1330 An Start Data 1335 An Induction 1336 Anesthesia Ready 1346 an stop data 1351 Recovery or ICU Handoff Rose ent care was transferred to the destination unit staff after review of the patient's medical history, current anesthetic/surgical status and plan, according to the Provider Handoff Checklist. 1351 Stop Meds Name Total Midazolam 2 mg IV Lidocaine 100 mg Propofol 100 mg Propofol INF 110.25 mg lactated ringers infusion 200 mL * Agents Name O2 Air N2O O2 Auxiliary Flowmeter 1 * Blood No blood administrations on file. Lines, Drains, and Airways Type Details Placement Removal Incision 11/04/18; 1156; ches t; 08/29/22 (LDA cleanup utility RA#[id number]); 1715 (LDA cleanup utility RA#[id number]) 11/04/18 1156 by Raina Blair RN 06/30/22 1715 by Sharmila Trevino (RETIRED) Peripheral IV Line - Single Lumen 10/24/19; 1325; median cubital vein (antecubital fossa), right; pgtq-[id number]-ynohxy catheter system; 20 gauge, 1 in length; Sylvia CASTRO; distraction, tolerated well; 1; metacarpal vein (top of hand), right; 10/24/19; 1435 10/24/19 1325 by Teresa Johnson RN 10/24/19 1435 by Aliza Hernandez RN documented in this encounter Social History [...] on file documented as of this encounter OR Notes * Anesthesia Postprocedure Evaluation - Ernst Sevilla MD - 10/24/2019 3:32 PM EST Department of Anesthesiology Post-procedure Note Patient: Roland Vega Procedure Summary Date: 10/24/19 Room / Location: [facility] ENDO 2 / [facility] ENDOSCOPY Anesthesia Start: 1330 Anesthesia Stop: 1351 Procedure: EGD, UPPER GI ENDOSCOPY (N/A Trunk) Diagnosis: (REFLUX ESOPHAGITIS) (Black TAO) Surgeon: Donavan Dunaway MD Responsible Provider: Ernst Sevilla MD Anesthesia Type: MAC ASA Status: 3 All Anesthesia Providers: Anesthesiologist: Ernst Sevilla MD CHILD CAREGIVER: Akila Tavarez CRNA Vitals Value Taken Time BP 108/71 10/24/2019 2:15 PM Temp Pulse Resp 16 10/24/2019 2:15 PM SpO2 94 % 10/24/2019 2:28 PM Pain Level 0 10/24/2019 2:15 PM Vitals shown include unvalidated device data. Patient Location: PACU/SDP Level of Consciousness: Awake and Alert Pain Management: Satisfactory Analgesia PONV: None Cardiovascular Status: At Baseline Respiratory Status: At Baseline Postoperative Fluid Status: Intravascular EUvolemia Possible Anesthetic Complications: NONE apparent at time of evaluation Final Primary Anesthesia Type: General (The anesthetic type performed was the same as planned.) Comments: Anxious. 2 mg of midazolam. in room as patient was induced * Anesthesia Preprocedure Evaluation - Ernst Sevilla MD - 10/24/2019 1:04 PM EST Pre-Anesthesia Evaluation for: Roland Vega a 69 y.o. male. Procedure(s): EGD, UPPER GI ENDOSCOPY Patient Active Problem List Diagnosis ??? Near syncope ??? Acute ischemic left MCA stroke History of left MCA infarct, 2017 ??? S/P angioplasty with stent Non-STEMI 2010, status post JANET to OM1, RPDA, D1 ??? Peripheral neuropathy Probable small fiber neuropathy based on nerve conduction study. Negative fat pad biopsy 2005. Stocking-glove distribution of symptoms. ??? History of syncope 2005 ECG 11/06 demonstrated a left anterior [...] with sinus rhythm at the same rate. ??? Asthma ??? Rheumatoid arthritis(714.0) ??? Malignant neoplasm of prostate S/p radical prostatectomy Dec 2004 ??? Headache(784.0) ??? Chronic back pain ??? Depression On testosterone ??? Hyperlipidemia On statins Changed to lipitor given NSTEMI on pravachol with LDL 66 ??? Gastroesophageal reflux Changed to protonix given newly added plavix dosing ??? ASCVD (arteriosclerotic cardiovascular disease) ALY, NYHA Class III, progressive March 2017 [...] nl RWMA,, mild diffuse disease in the LADwith a 30% D1 stenosis. Atypical chest discomfort 2004. Dyslipidemia (increased triglycerides, low HDL). Echocardiography 05/23/09: LVEF 70% no RWMA, nl RV, borderline RVH, +1 MR, moderate asc aortic dilation ??? CIS - CIDP Past Medical History: Diagnosis Date ??? Malignant neoplasm of prostate 03/31/2017 Past Surgical History: Procedure Laterality Date ??? PRO COLONOSCOPY, DIAGNOSTIC 03/08/2014 COLONOSCOPY, DIAGNOSTIC performed by Brandy iDckerson MD at [facility] ENDOSCOPY Social History Tobacco Use ??? Smoking status: Former Smoker Last attempt to quit: 08/10/2010 Years since quittin.2 ??? Smokeless tobacco: Never Used Substance Use Topics ??? Alcohol use: Yes Alcohol/week: 14.0 standard drinks Types: 14 Glasses of wine per week Social History Substance and Sexual Activity Drug Use Yes ??? Types: Marijuana Comment: medical- hardly used Allergies Allergen Reactions ??? Lisinopril Other (See Comments) and Angioedema Tongue swelling ??? Shellfish Containing Products Anaphylaxis and Other (See Comments) Swordfish ??? Sulfa (Sulfonamide Antibiotics) Anaphylaxis ??? Hydroxychloroquine Sulfate Other (See Comments) visual changes ??? Nsaids (Non-Steroidal Anti-Inflammatory Drug) Other (See Comments) swelling Medications: MAR and/or home medications have been reviewed. Physical Exam: There were no vitals filed for this visit. There is no height or weight on file to calculate BMI. Airway Assessment: Mallampati: II TM distance: >3 FB Cardiovascular Assessment: cardiovascular exam normal Pulmonary Assessment: (+) rhonchi pulmonary exam normal Dental Assessment: Misc Assessment: Anesthesia Plan: ASA 3 MAC, with a(n) intravenous induction 68yr old male with history of left MCA CVA, CAD s/p PCI and syncope Informed Consent: Anesthetic plan and risks discussed with patient. The patient achieved a maximum heart rate of 86 bpm which is 56% of the maximum predicted heart rate (153 beats/min). The target heart rate was not achieved (HR did increase from 53 bpm to 86 bpm, but sub-target for age). 3. The total exercise duration was: 7:03 min (5 METS). Low Ramp Protocol was used. Patient exercised into Stage 14. The study was terminated because of fatigue. The study was terminated because of dyspnea (8/10 shortness of breath at peak exercise). The patient did not express feelings of chest discomfort. The patient experienced shortness of breath. The blood pressure response was normal. Exercise capacity was fair. 4. Echo: Mild concentric left ventricular hypertrophy is observed. There is normal global left ventricular systolic function. Ejection fraction is estimated to be 65%. There are no left ventricular segmental wall motion abnormalities. During the immediate post exercise period, there is normal recruitment of all neff; however, target HR not achieved. Seizure disorder PAT Clinic Note Wt Readings from Last 3 Encounters: 10/24/19 122.5 kg (270 lb) 11/04/18 127.5 kg (281 lb) 10/07/18 127.5 kg (281 lb) Temp Readings from Last 3 Encounters: 10/24/19 36.6 ??C (97.9 ??F) (Oral) 09/23/19 36.7 ??C (98.1 ??F) (Temporal) 11/04/18 36.5 ??C (97.7 ??F) (Temporal) BP Readings from Last 3 Encounters: 10/24/19 135/84 09/23/19 132/77 11/04/18 131/74 Pulse Readings from Last 3 Encounters: 10/24/19 58 09/23/19 60 11/04/18 76 Lab Results Component Value Date WBC 6.0 08/22/2018 HGB 14.6 08/22/2018 HCT 44.4 08/22/2018 MCV 92.5 08/22/2018 PLATELET 208 08/22/2018 Lab Results Component Value Date NA 140 08/22/2018 K 4.3 08/22/2018 CL 101 08/22/2018 CO2 28 08/22/2018 BUN 16 08/22/2018 CREATININE 1.06 08/22/2018 GLUCOSE 77 08/22/2018 GLUCFASTING 145 (H) 08/10/2018 CALCIUM 9.6 08/22/2018 ESTGFR 72 08/22/2018 Significant anxiety documented in this encounter Plan of Treatment Upcoming Encounters Date Type Department Care Team (Late st Contact Info) Description 08/09/2024 10:30 AM EDT Hospital Encounter [place] [address] Navi Montero MD [facility] [place] [address] 08/09/2024 10:30 AM EDT - 08/09/2024 11:15 AM EDT Surgery [place] [address] Navi Montero MD [facility] [place] [address] COLONOSCOPY,SCREENI NG (WRVU 3.26) Scheduled Procedures Name Priority Associated Diagnoses Date/Ti me COLONOSCOPY,SCREENING (WRVU 3.26) polyps 08/09/2024 10:30 AM EDT documented as of this encounter Visit Diagnoses Not on filedocumented in this encounter Administered Medications Inactive Administered Medications - up to 3 most recent administrations Medication Order MAR Action Action Date Dose Rate Site lidocaine (PF) (XYLOCAINE) 100 mg/5 mL (2 %) injection PRN, Starting on Thu10/24/19 at 1335, Until Thu10/24/19 at 1351, Anesthesia Intra-op, Routine Given 10/24/2019 1:35 PM EST 100 mg midazolam (PF) (VERSED) multi-dose injection PRN, Starting on Thu10/24/19 at 1325, Until Thu10/24/19 at 1351, Anesthesia Intra-op, Routine Given 10/24/2019 1:25 PM EST 2 mg propofol (DIPRIVAN) 10 mg/mL bolus injection (Anesthesia) PRN, Starting on Thu10/24/19 at 1335, Until Thu10/24/19 at 1351, Anesthesia Intra-op Given 10/24/2019 1:35 PM EST 100 mg propofol (DIPRIVAN) infusion CONTINUOUS PRN, Starting on Thu10/24/19 at 1335, Until Thu10/24/19 at 1351, Anesthesia Intra-op, Routine New Bag 10/24/2019 1:35 PM EST 150 mcg/kg/min 110.3 mL/hr documented in this encounter Care Teams Photogrammetric Technician Relationship Specialty Start Date End Date Vel Santos MD [address] [place] [phone] PCP - General 09/24/10 06/04/23 documented as of this encounter
--- OUTSIDE RECORDS SUMMARY | 2024-07-19 22:16 | XMS_ITS | Encounter Summary ---
[place] [address] Care Team Providers Care Supplemental Manager Name Role Phone Vel Santos MD Primary Care Provider [phone] Encounter Details Date Type Department Care Team (Late st Contact Info) Description 10/19/2019 Telephone [place] [address] Joana Maddox Social History Tobacco Use Types Packs/Day Years [...] encounter Miscellaneous Notes * Telephone Encounter - Joana Maddox - 10/19/2019 3:45 PM EST Roland Vega [id number] Diagnosis: EGD 1. Have you ever had a EGD before? [x] YES [] NO If Yes, Date of Last EGD: 06/01/2000 If yes, did you have any problems with the procedure? [] YES [x] NO Explain: What type of sedation was used: iv 2. Do you take any Blood Thinners? [x] YES [] NO If Yes, type: Plavix 3. Do you have a Pacemaker or Defibrillator device? [] YES [x] NO If Yes send [employer] message to [employer] ENDO DEVICE CHECK 4. Are you a diabetic? [] YES [x] NO If yes, controlled by meds or diet? 5. Do you have any Allergies to Eggs, Latex or Medications? [x] YES [] NO If Yes, what:____Sulfa 6. Do you take any Oral Iron Supplements (Including multi vitamins)? [] YES [x] NO 7. Do you have a history of three or more abdominal surgeries? [] YES [x] NO 8. Have you had a problem with sedation or anesthesia? [] YES [x] NO 9. Do you have a c-pap machine or oxygen tank? [] C-PAP [] Oxygen [x] NO 10. Do you take prescription narcotic pain medications? [] YES [x] NO 11. You must have a responsible libertarian stay at the facility during your procedure and drive you home? [] YES 12. Is there any other information you would like to give us to aid in scheduling? Height: _6'__ Weight:270__ BMI: 36.6____ Age:69 y.o. documented in this encounter Plan of Treatment Upcoming Encounters Date Type Department Care Team (Late st Contact Info) Description 08/09/2024 10:30 AM EDT Hospital Encounter [place] [address] Navi Montero MD [facility] [place] [address] 08/09/2024 10:30 AM EDT - 08/09/2024 11:15 AM EDT Surgery [place] [address] Navi Montero MD [facility] [place] [address] COLONOSCOPY,SCREENI NG (WRVU 3.26) Scheduled Procedures Name Priority Associated Diagnoses Date/Ti me COLONOSCOPY,SCREENING (WRVU 3.26) polyps 08/09/2024 10:30 AM EDT documented as of this encounter Visit Diagnoses Not on filedocumented in this encounter Care Teams Supplemental Manager Relationship Specialty Start Date End Date Vel Santos MD [address] [place] [phone] PCP - General 09/24/10 06/04/23 documented as of this encounter
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
--- OUTSIDE RECORDS SUMMARY | 2024-07-19 22:16 | XMS_ITS | Encounter Summary ---
Author Organization Formerly [facility] [place] [address] Care Team Providers Care Airplane Charter Clerk Name Role Phone Marco Aleman MD Primary Care Provider [phone] Reason for Referral * Diagnostic Test (Routine) - Closed Specialty Diagnoses / Procedures Referred By Contac t Referred To Contact Diagnoses ASCVD (arteriosclerotic cardiovascular disease) Systolic murmur Procedures Echocardiogram Stress (Treadmill) Nacho Irving MD [facility] [address] [facility] [place] [address] Referral ID Status Reason Start Date Expiration Date V isits Requested Visits Authorized [id number] Closed Specialty Service Requested 11/05/2023 11/04/2024 1 1 Reason for Visit * Diagnostic Test (Routine) - Closed Specialty Diagnoses / Procedures Referred By Contac t Referred To Contact Diagnoses ASCVD (arteriosclerotic cardiovascular disease) Systolic murmur Procedures Echocardiogram Stress (Treadmill) Nacho Irving MD [facility] [address] [facility] [place] [address] Referral ID Status Reason Start Date Expiration Date V isits Requested Visits Authorized [id number] Closed Specialty Service Requested 11/05/2023 11/04/2024 1 1 Encounter Details Date Type Department Care Team (Latest Contact Info) Description 11/23/2023 12:16 PM EST - 11/23/2023 11:59 PM EST Hospital Encounter [place] [address] Nacho Irving MD [facility] [place] [address] ASCVD (arteriosclerotic cardiovascular disease); Systolic murmur Discharge Disposition: Home Social History Tobacco Use [...] on file documented as of this encounter Medications at Time of Discharge Medication Sig Dispensed Refills Start Date End Date testosterone cypionate (DepoTESTOSTERONE Cypionate) (200mg/mL) injection INJECT 1.5ML INTO THE MUSCLE ONCE WEEKLY. niacin (Niacor) 100 mg tablet Take 100 mg by mouth Twice daily. magnesium 250 mg tablet Take 500 mg by mouth Daily. ascorbic acid, Vitamin C, (Vitamin C) 500 mg tablet Take 1,000 mg by mouth Daily. amLODIPine (Norvasc) 10 mg tablet Take 10 mg by mouth daily. lamoTRIgine (LAMICTAL) 25 mg Tablet Take 25 mg by mouth 2 times daily. cholecalciferol, Vitamin D3, 2,000 unit Capsule Take by mouth. MinervaxTOUCH ULTRA BLUE TEST STRIP Strip use as [...] MG = 1 Tablet(s), Sublingual, prn 11/13/2010 evolocumab (Repatha) 140 mg/mL Pen InjectorIndications:Hy perlipidemia, unspecified hyperlipidemia type Inject 1 mL subcutaneously every 14 days. 6 mL 3 11/09/2023 12/10/2023 marijuana Oil - medicinal use LOTION THAT [...] days. Patient injects 1.25 cc weekly 12/10/2023 documented as of this encounter Plan of Treatment Upcoming Encounters Date Type Department Care Team (Late st Contact Info) Description 08/09/2024 10:30 AM EDT Hospital Encounter [place] [address] Navi Montero MD [facility] [place] [address] 08/09/2024 10:30 AM EDT - 08/09/2024 11:15 AM EDT Surgery [place] [address] Navi Montero MD [facility] [place] [address] COLONOSCOPY,SCREENI NG (WRU 3.26) Scheduled Procedures Name Priority Associated Diagnoses Date/Ti me COLONOSCOPY,SCREENING (WRVU 3.26) polyps 08/09/2024 10:30 AM EDT documented as of this encounter Procedures Procedure Name Priority Date/Time Associated Diagnosis Comments STRESS ECHO W LMTD SPEC DOPP COLOR DOPP Routine 11/23/2023 1:53 PM EST ASCVD (arteriosclerotic cardiovascular disease) Systolic murmur documented in this encounter Results * STRESS ECHO W LMTD SPEC DOPP COLOR DOPP (11/23/2023 1:53 PM EST) EF 63 [facility] SYSTEM Anatomical Region Laterality Modality Cardiac Other 11/23/2023 1:06 PM EST Narrative 11/23/2023 2:44 PM EST 1 [place] [address] ? Exercise Stress Echocardiogram Report Name: GLORIA GARCIA ?Study Date: 11/23/2023 01:06 PMBP: 112/78 mmHg ? Patient Location: 4A ? HR: 74 : 1950 ? Account: [id number] Age: 73 yrs Gender: Male Ordering Physician: NACHO IRVING Referring Physician: NACHO IRVING Performed By: Mikki Naqvi RDCS Reason For Study: ASCVD Interpreting Fellow: Mariajose Little. Exam Location: [facility]. Interpretation Summary Conclusion: Exercise echo is negative [...] Note Víctor Stratton MD - 11/23/2023 1 [place] [address] Exercise Stress Echocardiogram Report Name: GLORIA GARCIA Study Date: 1:06 PMBP: 112/78 mmHg Patient Location: HR: 74 : 1950 Account: [id number] Age: 73 yrs Gender: Male Ordering Physician: NACHO IRVING Referring Physician: NACHO IRVING Performed By: Mikki Naqvi RDCS Reason For Study: ASCVD Interpreting Fellow: Mariajose Little. Exam Location: [facility]. Interpretation Summary Conclusion: Exercise echo is negative [...] Dyskinetic 3-5moderate 5 - 6-14large Aneurysmal 15-16diffuse Nacho Irving MD ECHO ORDERABLES documented in this encounter Visit Diagnoses Diagnosis ASCVD (arteriosclerotic cardiovascular disease) Unspecified cardiovascular disease Systolic murmur Undiagnosed cardiac murmurs documented in this encounter Care Teams Airplane Charter Clerk Relationship Specialty Start Date End Date Marco Aleman MD [address] [place] [address] PCP - General Family Medicine 06/05/23 documented as of this encounter
--- OUTSIDE RECORDS SUMMARY | 2024-07-19 22:16 | XMS_ITS | Encounter Summary ---
Author Organization [facility] [place] [address] Care Team Providers Care Protection Mgr Name Role Phone Marco Aleman MD Primary Care Provider [phone] Reason for Visit * Reason Onset Date Comments Prior Authorization 11/09/2023 Repatha Encounter Details Date Type Department Care Team (Late st Contact Info) Description 11/09/2023 [place] [address] Clementina Moura CMA Prior Authorization (Nikita) Social History Tobacco Use Types Packs/Day Years [...] encounter Miscellaneous Notes * Telephone Encounter - Clementina Moura CMA - 11/09/2023 8:05 AM EST Images from the original note were not included. documented in this encounter Plan of Treatment Upcoming Encounters Date Type Department Care Team (Late st Contact Info) Description 08/09/2024 10:30 AM EDT Hospital Encounter [place] [address] Navi Montero MD [facility] [place] [address] 08/09/2024 10:30 AM EDT - 08/09/2024 11:15 AM EDT Surgery [place] [address] Navi Montero MD [facility] [place] [address] COLONOSCOPY,SCREENI NG (WRVU 3.26) Scheduled Procedures Name Priority Associated Diagnoses Date/Ti me COLONOSCOPY,SCREENING (WRVU 3.26) polyps 08/09/2024 10:30 AM EDT documented as of this encounter Visit Diagnoses Not on filedocumented in this encounter Care Teams Protection Mgr Relationship Specialty Start Date End Date Marco Aleman MD [address] [place] [phone] PCP - General Family Medicine 06/05/23 documented as of this encounter
--- OUTSIDE RECORDS SUMMARY | 2024-07-19 22:16 | XMS_ITS | Encounter Summary ---
[place] [address] Care Team Providers Care Open Cut Examiner Name Role Phone Marco Aleman MD Primary Care Provider [phone] Encounter Details Date Type Department Care Team (Late st Contact Info) Description 10/14/2023 Telephone [place] [address] Shayna Frazier, RN Social History Tobacco Use Types Packs/Day [...] encounter Miscellaneous Notes * Telephone Encounter - Shayna Frazier, RN - 10/14/2023 9:27 AM EST Called patient x2, went straight to [facility]. Left message reminding Roland to have his PSA drawn. Requested he call back with any questions. documented in this encounter Plan of Treatment Upcoming Encounters Date Type Department Care Team (Late st Contact Info) Description 08/09/2024 10:30 AM EDT Hospital Encounter [place] [address] Navi Montero MD [facility] [place] [address] 08/09/2024 10:30 AM EDT - 08/09/2024 11:15 AM EDT Surgery [place] [address] Navi Montero MD [facility] [place] [address] COLONOSCOPY,SCREENI NG (WRVU 3.26) Scheduled Procedures Name Priority Associated Diagnoses Date/Ti me COLONOSCOPY,SCREENING (WRVU 3.26) polyps 08/09/2024 10:30 AM EDT documented as of this encounter Visit Diagnoses Not on filedocumented in this encounter Care Teams Open Cut Examiner Relationship Specialty Start Date End Date Marco Aleman MD [address] [place] [address] PCP - General Family Medicine 06/05/23 documented as of this encounter
--- OUTSIDE RECORDS SUMMARY | 2024-07-19 22:16 | XMS_ITS | Encounter Summary ---
Author Organization [facility] Address [facility] [place] [address] Care Team Providers Care Foreign Student Adviser Name Role Phone Vel Santos MD Primary Care Provider [phone] Encounter Details Date Type Department Care Team (Late st Contact Info) Description 08/14/2019 Orders Only Cardiology at [address] [phone] Social History Tobacco Use Types Packs/Day Years [...] 10:30 AM EDT Hospital Encounter [place] [address] Navi Montero MD [facility] [place] [address] 08/09/2024 10:30 AM EDT - 08/09/2024 11:15 AM EDT Surgery [place] [address] Navi Montero MD [facility] [place] [address] COLONOSCOPY,SCREENI NG (WRVU 3.26) Scheduled Procedures Name Priority Associated Diagnoses Date/Ti me COLONOSCOPY,SCREENING (WRVU 3.26) polyps 08/09/2024 10:30 AM EDT documented as of this encounter Procedures Procedure Name Priority Date/Time Associated Diagnosis Comments CARDIAC DEVICE CHECK - REMOTE Routine 08/14/2019 9:29 PM EDT documented in this encounter Results * Cardiac Device Check - Remote (08/14/2019 9:29 PM EDT) Date Time Interrogation Session IDCO Implantable Pulse Generator Closing Supervisor Medtronic IDCO Implantable Pulse Generator Model [id number] IDCO Implantable Pulse Generator Serial Number [id number] IDCO Type Interrogation Session Remote IDCO Implantable Pulse Generator Type Implantable Diagnostic Monitor IDCO Implantable Pulse Generator Implant Date IDCO Zone Setting Detection Interval 2,000 ms IDCO Zone Setting Detection Interval 3,000 ms IDCO Zone Setting Type Category AT/AF IDCO Zone Setting Type Category VF IDCO Zone Setting Type Category VT IDCO Zone Setting Detection Interval 370 ms IDCO Battery Status OK IDCO Episode Identifier 43 IDCO Episode Type Category Patient Activated IDCO Episode Date Time IDCO Atrial Tachy Statistic Date Time Start IDCO Atrial Tachy Statistic Date Time End IDCO Atrial Tachy Statistic AT/AF [place] Percent 0 % IDCO Episode Statistic Recent Count 0 IDCO Episode Statistic Recent Count 0 IDCO Episode Statistic Recent Count 0 IDCO Episode Statistic Recent Count 0 IDCO Episode Statistic Recent Count 1 IDCO Episode Statistic Type Category Patient Activated IDCO Episode Statistic Recent Count 0 IDCO Episode Statistic Type Category AT/AF IDCO Episode Statistic Recent Date Time Start [id number] IDCO Episode Statistic Recent Date Time End IDCO Episode Statistic Recent Date Time Start [id number] IDCO Episode Statistic Recent Date Time End IDCO Episode Statistic Recent Date Time Start [id number] IDCO Episode Statistic Recent Date Time End IDCO Episode Statistic Recent Date Time Start IDCO Episode Statistic Recent Date Time End [id number] IDCO Episode Statistic Recent Date Time Start [id number] IDCO Episode Statistic Recent Date Time End [id number] IDCO Episode Statistic Recent Date Time Start [id number] IDCO Episode Statistic Recent Date Time End [id number] IDCO Episode Statistic Total Count 0 IDCO Episode Statistic Total Count 4 IDCO Episode Statistic Total Count 0 IDCO Episode Statistic Total Count 0 IDCO Episode Statistic Total Count 39 IDCO Episode Statistic Type Category Patient Activated IDCO Episode Statistic Total Count 0 IDCO Episode Statistic Type Category AT/AF IDCO Episode Statistic Total Date Time Start [id number] IDCO Episode Statistic Total Date Time End [id number] IDCO Episode Statistic Total Date Time Start 80405453141072 IDCO Episode Statistic Total Date Time End [id number] IDCO Episode Statistic Total Date Time Start [id number] IDCO Episode Statistic Total Date Time End [id number] IDCO Episode Statistic Total Date Time Start 07157308901290 IDCO Episode Statistic Total Date Time End [id number] IDCO Episode Statistic Total Date Time Start 89445892151524 IDCO Episode Statistic Total Date Time End [id number] IDCO Episode Statistic Total Date Time Start 21526301452941 IDCO Episode Statistic Total Date Time End 24177536333336 IDCO Anatomical Region Laterality Modality Other 08/14/2019 9:29 PM EDT Physician Cardiology IMPLANTABLE CARD IAC DEVICE documented in this encounter Visit Diagnoses Not on filedocumented in this encounter Care Teams Foreign Student Adviser Relationship Specialty Start Date End Date Vel Santos MD [address] [place] [phone] PCP - General 09/24/10 06/04/23 documented as of this encounter
--- OUTSIDE RECORDS SUMMARY | 2024-07-19 22:16 | XMS_ITS | Encounter Summary ---
Author Organization [facility] Address [facility] [place] [address] Care Team Providers Care Assistant Community Director Name Role Phone Vel Santos MD Primary Care Provider [phone] Encounter Details Date Type Department Care Team (Late st Contact Info) Description 01/31/2021 10:00 AM EDT - 01/31/2021 11:59 PM EDT Hospital Encounter XRay at [address] [place] [address] Micky Eden MD [facility] [place] [address] Acute pain of left knee Discharge Disposition: Home Social History Tobacco Use [...] MG = 1 Tablet(s), Sublingual, prn 11/13/2010 amLODIPine (Norvasc) 10 mg Tablet Take 10 mg by mouth Daily. 11/13/2020 02/11/2021 budesonide-formoteroL (SYMBICORT) 80-4.5 mcg/actuation HFA Aerosol Inhaler Inhale 2 puffs into the lungs Twice daily. 08/12/2023 marijuana Oil - medicinal use LOTION THAT [...] 11/13/2010 08/12/2023 documented as of this encounter Plan of Treatment Upcoming Encounters Date Type Department Care Team (Late st Contact Info) Description 08/09/2024 10:30 AM EDT Hospital Encounter [place] [address] Navi Montero MD [facility] [place] [address] 08/09/2024 10:30 AM EDT - 08/09/2024 11:15 AM EDT Surgery [place] [address] Navi Montero MD [facility] [place] [address] COLONOSCOPY,SCREENI NG (WRVU 3.26) Scheduled Procedures Name Priority Associated Diagnoses Date/Ti me COLONOSCOPY,SCREENING (WRVU 3.26) polyps 08/09/2024 10:30 AM EDT documented as of this encounter Procedures Procedure Name Priority Date/Time Associated Diagnosis Comments XR KNEE STANDING ALIGNMENT AP LAT [place] LEFT Routine 01/31/2021 10:19 AM EDT Acute pain of left knee documented in this encounter Results * XR Knee Standing Alignment AP Lat [place] Left (01/31/2021 10:19 AM EDT) Anatomical Region [...] who have questions please contact the health neonatal critical care nurse that requested your imaging first. ? Narrative 01/31/2021 11:45 AM EDT EXAMINATION: XR [...] patients who have questions please contactthe health neonatal critical care nurse that requested your imaging first. Micky Eden MD IMG DX ORDERABLES documented in this encounter Visit Diagnoses Diagnosis Acute pain of left knee documented in this encounter Care Teams Assistant Community Director Relationship Specialty Start Date End Date Vel Santos MD [address] [place] [phone] PCP - General 09/24/10 06/04/23 documented as of this encounter
--- OUTSIDE RECORDS SUMMARY | 2024-07-19 22:16 | XMS_ITS | Encounter Summary ---
Author Organization [facility] [place] [facility] Address [facility] [place] [address] Care Team Providers Care Investments Manager Name Role Phone Marco Aleman MD Primary Care Provider [phone] Encounter Details Date Type Department Care Team (Latest Contact Info) Description 11/05/2023 Travel Social History Tobacco Use Types Packs/Day [...] 10:30 AM EDT Hospital Encounter [place] [address] Navi Montero MD [facility] [place] [address] 08/09/2024 10:30 AM EDT - 08/09/2024 11:15 AM EDT Surgery [place] [address] Navi Montero MD [facility] [place] [address] COLONOSCOPY,SCREENI NG (WRVU 3.26) Scheduled Procedures Name Priority Associated Diagnoses Date/Ti me COLONOSCOPY,SCREENING (WRVU 3.26) polyps 08/09/2024 10:30 AM EDT documented as of this encounter Visit Diagnoses Not on filedocumented in this encounter Care Teams Investments Manager Relationship Specialty Start Date End Date Marco Aleman MD [address] [place] [phone] PCP - General Family Medicine 06/05/23 documented as of this encounter
--- OUTSIDE RECORDS SUMMARY | 2024-07-19 22:16 | XMS_ITS | Encounter Summary ---
Author Organization [facility] Address [facility] [place] [address] Care Team Providers Care Steam Bone Press Tender Name Role Phone Vel Santos MD Primary Care Provider [phone] Encounter Details Date Type Department Care Team (Late st Contact Info) Description 01/05/2020 External Results Cardiology at [address] [phone] Social History Tobacco Use Types Packs/Day Years [...] 10:30 AM EDT Hospital Encounter [place] [address] Navi Montero MD [facility] [place] [address] 08/09/2024 10:30 AM EDT - 08/09/2024 11:15 AM EDT [place] [address] Navi Montero MD [facility] [place] [address] COLONOSCOPY,SCREENI NG (WRVU 3.26) Scheduled Procedures Name Priority Associated Diagnoses Date/Ti me COLONOSCOPY,SCREENING (WRVU 3.26) polyps 08/09/2024 10:30 AM EDT documented as of this encounter Procedures Procedure Name Priority Date/Time Associated Diagnosis Comments EP DEVICE SCAN Routine 12/15/2018 documented in this encounter Results * Scan Doc: EP Device (12/15/2018) Anatomical Region Laterality Modality Other Historical Provider MEDIA MGR SCAN EX T ORDR/RSLT documented in this encounter Visit Diagnoses Not on filedocumented in this encounter Care Teams Steam Bone Press Tender Relationship Specialty Start Date End Date Vel Santos MD [address] [place] [phone] PCP - General 09/24/10 06/04/23 documented as of this encounter
--- OUTSIDE RECORDS SUMMARY | 2024-07-19 22:16 | XMS_ITS | Encounter Summary ---
Author Organization [facility] [place] [address] Care Team Providers Care Teacher Education Instructor Name Role Phone Marco Aleman MD Primary Care Provider Reason for Referral * Consultation (Routine) - Closed Specialty Diagnoses / Procedures Referred By Contac t Referred To Contact Cardiology Diagnoses Coronary artery disease, unspecified vessel or lesion type, unspecified whether angina present, unspecified whether [place] or transplanted heart H/O CAD, HLD, HTN. Marco Aleman MD [address] [place] [address] [facility] Cardiology [address] [place] [phone] Referral ID Status Reason Start Date Expiration Date V isits Requested Visits Authorized [id number] Closed Consult, Test & Treat PCP Updated and/or Approved 06/05/2023 06/04/2024 12 12 Encounter Details Date Type Department Care Team (Latest Contact Info) Description 06/05/2023 Transcribe Orders eDH Incoming Referrals [phone] Marco Aleman MD [address] [place] [address] Coronary artery disease, unspecified vessel or lesion type, unspecified whether angina present, unspecified whether [place] or transplanted heart Social History Tobacco Use [...] 10:30 AM EDT Hospital Encounter [place] [address] Navi Montero MD [facility] [place] [address] 08/09/2024 10:30 AM EDT - 08/09/2024 11:15 AM EDT Surgery [place] [address] Navi Montero MD [facility] [place] [address] COLONOSCOPY,SCREENI NG (WRVU 3.26) Scheduled Procedures Name Priority Associated Diagnoses Date/Ti me COLONOSCOPY,SCREENING (WRVU 3.26) polyps 08/09/2024 10:30 AM EDT Scheduled Referrals Name Type Priority Associated Diagnoses Orde r Schedule Referral to Cardiology Outpatient Referral Routine Coronary artery disease, unspecified vessel or lesion type, unspecified whether angina present, unspecified whether [place] or transplanted heart Ordered: 06/05/2023 documented as of this encounter Visit Diagnoses Diagnosis Coronary artery disease, unspecified vessel or lesion type, unspecified whether angina present, unspecified whether [place] or transplanted heart documented in this encounter Care Teams Teacher Education Instructor Relationship Specialty Start Date End Date Marco Aleman MD [address] [place] [address] PCP - General Family Medicine 06/05/23 documented as of this encounter
--- OUTSIDE RECORDS SUMMARY | 2024-07-19 22:16 | XMS_ITS | Encounter Summary ---
Author Organization [facility] Address [facility] [place] [address] Care Team Providers Care Station Supervisor Name Role Phone Vel Santos MD Primary Care Provider [phone] Encounter Details Date Type Department Care Team (Late st Contact Info) Description 09/13/2019 Telephone Cardiology at [address] [phone] Adrian Rubio MD [facility] [place] [address] Social History Tobacco Use Types Packs/Day Years [...] encounter Miscellaneous Notes * Telephone Encounter - Adrian Rubio MD - 09/13/2019 9:53 AM EST I received a call from the patient's reporting that he has had a number of recent diagnoses including the recognition that he was having multiple seizures, 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 He is now discontinued that and is on appropriate therapies and is actually feeling much better. Overall, he is doing remarkably well with no new cardiovascular symptoms. His biggest complaint is pain around the site of the implantable loop recorder which was placed about a year ago. This was done to look for any occult episodes of atrial dysrhythmias. In reviewing the trends, he has had none. Unfortunately, he continues to have significant pain around the site, particularly at night when he lays on it. It is very annoying to him and he is requesting that it be removed. From a medical perspective, I am not sure that we need to continue to have this given that [email or web address] understand a little better about what his episodes were and that they were likely related to seizure activity. I will send my note directly to the EP schedulers to see if we can schedule for ILR removal sometime in the next month or so at their discretion. I explained to the that they would be contactingher and the patient directly regarding next steps. documented in this encounter Plan of Treatment Upcoming Encounters Date Type Department Care Team (Late st Contact Info) Description 08/09/2024 10:30 AM EDT Hospital Encounter [place] [address] Navi Montero MD [facility] [place] [address] 08/09/2024 10:30 AM EDT - 08/09/2024 11:15 AM EDT Surgery [place] [address] Navi Montero MD [facility] [place] [address] COLONOSCOPY,SCREENI NG (WRVU 3.26) Scheduled Procedures Name Priority Associated Diagnoses Date/Ti me COLONOSCOPY,SCREENING (WRVU 3.26) polyps 08/09/2024 10:30 AM EDT documented as of this encounter Visit Diagnoses Not on filedocumented in this encounter Care Teams Station Supervisor Relationship Specialty Start Date End Date Vel Santos MD [address] [place] [phone] PCP - General 09/24/10 06/04/23 documented as of this encounter
--- OUTSIDE RECORDS SUMMARY | 2024-07-19 22:16 | XMS_ITS | Encounter Summary ---
Author Organization [facility] Address [facility] [place] [address] Care Team Providers Care Door Trimmer Name Role Phone Marco Aleman MD Primary Care Provider [phone] Encounter Details Date Type Department Care Team (Latest Contact Info) Description 08/12/2023 Travel Social History Tobacco Use Types Packs/Day [...] 10:30 AM EDT Hospital Encounter [place] [address] Navi Montero MD [facility] [place] [address] 08/09/2024 10:30 AM EDT - 08/09/2024 11:15 AM EDT [place] [phone] Navi Montero MD [facility] [place] [address] COLONOSCOPY,SCREENI NG (WRVU 3.26) Scheduled Procedures Name Priority Associated Diagnoses Date/Ti me COLONOSCOPY,SCREENING (WRVU 3.26) polyps 08/09/2024 10:30 AM EDT documented as of this encounter Visit Diagnoses Not on filedocumented in this encounter Care Teams Door Trimmer Relationship Specialty Start Date End Date Marco Aleman MD [address] [place] [phone] PCP - General Family Medicine 06/05/23 documented as of this encounter
--- OUTSIDE RECORDS SUMMARY | 2024-07-19 22:16 | XMS_ITS | Encounter Summary ---
Author Organization [facility] Address [facility] [place] [address] Care Team Providers Care Shellfish Bed Worker Name Role Phone Vel Santos MD Primary Care Provider [phone] Encounter Details Date Type Department Care Team (Late st Contact Info) Description 09/19/2019 Orders [place] [phone] Kendra Jung PA [facility] [place] [address] Status post placement of implantable loop recorder Social History Tobacco Use Types Packs/Day Years [...] 10:30 AM EDT Hospital Encounter [place] [phone] Navi Montero MD [facility] [place] [address] 08/09/2024 10:30 AM EDT - 08/09/2024 11:15 AM EDT Surgery Gastroenterology at [facility] [place] [address] Navi Montero MD [facility] [place] [address] COLONOSCOPY,SCREENI NG (WRVU 3.26) Scheduled Procedures Name Priority Associated Diagnoses Date/Ti me COLONOSCOPY,SCREENING (WRVU 3.26) polyps 08/09/2024 10:30 AM EDT documented as of this encounter Procedures Procedure Name Priority Date/Time Associated Diagnosis Comments ELECTROPHYSIOLOGY PROCEDURE Routine 09/23/2019 1:25 PM EST Status post placement of implantable loop recorder documented in this encounter Results * ELECTROPHYSIOLOGY PROCEDURE (09/23/2019 1:25 PM EST) Anatomical Region Laterality Modality Other Narrative 09/25/2019 3:19 PM EST LOOP RECORDER EXPLANT PROCEDURE NOTE Maintenance Equipment Operator: Sharron Lechuga MD Fellow:Kris León MD Patient history: ??History of repeated syncope found to have a seizure disorder after extensive cardiac work up including ILR implant. ??He wishes to have the ILR removed. Procedures performed: Loop recorder explant Procedure description: The patient was brought to the cardiac electrophysiology laboratory in a fasting state. The patient had received 3 scrubs to the implant area. ?? Informed consent was obtained. A peripheral IV was in place. Continuous electrocardiographic, blood pressure, oxygen saturation and CO2 monitoring was initiated. The patient was then prepped and draped in the usual sterile fashion. The prior implant area was infiltrated with a 50/50 mixture of lidocaine (2%) and bupivicaine (0.5%). A stab incision was then made over the initial insertion site. Various forceps were used to explore the subcutaneous tissues to retrieve the device without success. A second incision was made distal to the initial incision and the incision was tunneled down to the level of the device with a Bovie which was found encapsulated in the subcutaneous tissues. The loop recorder was explanted from the subcutaneous tissues with a forceps. A 2-0 vicryl and 4-0 silk was used to appose the the skin. Dermabond and Mepilex dressing were applied to the skin. The patient was hemodynamically stable, tolerated the procedure well and was transferred in stable condition. Dr. Lechuga was present and participated in the entire procedure. Explanted hardware: ?? [employer] Model No. Serial No. Generator [id number] [id number] Sedation start: 12:50, sedation stop: 13:25 Medication summary: IV Midazolam 2mg Conclusions: Successful loop recorder explant. ISharron MD, was present throughout the procedure and was the oil well perforator operator. ??Sharron Carroll MD, was present throughout the period of sedation as documented by the sedation nurse. Owen Delgado MD EP PROCEDURE ORDERAB LES documented in this encounter Visit Diagnoses Diagnosis Status post placement of implantable loop recorder Other specified cardiac device in situ Status post placement of implantable loop recorder Other specified cardiac device in situ documented in this encounter Care Teams Shellfish Bed Worker Relationship Specialty Start Date End Date Vle Santos MD [address] [place] [phone] PCP - General 09/24/10 06/04/23 documented as of this encounter
--- OUTSIDE RECORDS SUMMARY | 2024-07-19 22:16 | XMS_ITS | Encounter Summary ---
Author Organization [facility] [place] [address] Care Team Providers Care Nurses Assistant Name Role Phone Vel Santos MD Primary Care Provider [phone] Encounter Details Date Type Department Care Team (Late st Contact Info) Description 09/23/2019 1:05 PM EST - 09/23/2019 2:05 PM EST Surgery Electrophysiology [place] [address] Sharron Lechuga MD [facility] [place] [address] ELECTROPHYSIOLOGY PROCEDURE Social History Tobacco Use Types Packs/Day Years [...] the incision. Make sure to use a clother in (such as a towel) in between the [...] F. The office scheduling phone number is [phone]. documented in this encounter Medications at Time [...] MD - 09/23/2019 11:51 AM EST Roland Vega [id number] 09/23/2019 69 y.o. Admission History and Physical [...] 10:30 AM EDT Hospital Encounter [place] [address] Navi Montero MD [facility] [place] [address] 08/09/2024 10:30 AM EDT - 08/09/2024 11:15 AM EDT Surgery [place] [address] Navi Montero MD [facility] [place] [address] COLONOSCOPY,SCREENI NG (WRVU 3.26) Scheduled Procedures Name Priority Associated Diagnoses Date/Ti mo COLONOSCOPY,SCREENING (WRVU 3.26) polyps 08/09/2024 10:30 AM EDT documented as of this encounter Visit Diagnoses Diagnosis Status post placement of implantable loop recorder Other specified cardiac device in situ documented in this encounter Administered Medications Inactive [...] RN) documented in this encounter Care Teams Nurses Assistant Relationship Specialty Start Date End Date Vel Santos MD [address] [place] [phone] PCP - General 09/24/10 06/04/23 documented as of this encounter
--- OUTSIDE RECORDS SUMMARY | 2024-07-19 22:17 | XMS_ITS | Encounter Summary ---
[place] [address] Care Team Providers Care Television Camera Operator Name Role Phone Vel Santos MD Primary Care Provider [phone] Reason for Visit * Reason Comments Palpitations Dizziness * Auth/Cert Specialty Diagnoses / Procedures Referred By Yi t Referred To Contact Diagnoses Near syncope Referral ID Status Reason Start Date Expiration Date Visits Re quested Visits Authorized [id number] 1 1 Encounter Details Date Type Department Care Team (Late st Contact Info) Description 08/22/2018 7:34 PM EDT - 08/23/2018 2:56 PM EDT [place] [address] Brenna Corbett MD [facility] [place] [address] Audie Peralta MD [facility] [place] [address] Palpitations (Primary Dx); Near syncope Discharge Disposition: Home Social History Tobacco Use [...] Sign Reading Time Taken Comments Blood Pressure 108/73 08/23/2018 2:55 PM EDT Pulse 65 08/23/2018 2:55 PM EDT Temperature 36.6 ??C (97.8 ??F) 08/23/2018 2:55 PM ED T Respiratory Rate 16 08/23/2018 2:55 PM EDT Oxygen Saturation 94% 08/23/2018 2:55 PM EDT Inhaled Oxygen Concentration - - Weight 125.6 kg (277 lb) 08/22/2018 6:55 PM EDT Height 180.3 cm (5' 11) 08/22/2018 6:55 PM EDT Body Mass Index 38.63 08/22/2018 6:55 PM EDT documented in this encounter Discharge Instructions * Attachments The following attachments cannot be sent through Care Everywhere. * PALPITATIONS (KHMER) documented in this encounter Medications at Time of Discharge Medication Sig Dispensed Refills Start Date End Date ONETOUCH ULTRA BLUE TEST STRIP Strip use [...] MG = 1 Tablet(s), Sublingual, prn 11/13/2010 pantoprazole (PROTONIX) 40 mg Tablet, Delayed Release [...] for prevention. 120 mL 3 08/10/2015 08/12/2023 [place]-3 Fatty Acids-Vitamin E (OMEGA-3 FISH OIL) 1,000-5 mg-unit Cap 11/13/2010 09/09/20 atorvastatin (LIPITOR) 40 mg tablet 40 MG = 1 Tablet(s), PO, Once daily 11/13/2010 08/12/2023 metoprolol succinate (TOPROL-XL) 100 mg XL tablet Take by mouth. 11/13/2010 08/12/2023 documented as of this encounter ED Notes * Odalys Shea, AUDIT REVIEWER - 08/23/2018 2:37 PM EDT Patient Name: Roland Vega Patient Age: 68 y.o. Birthdate: 1950 Admit date: 08/22/2018 Attending Physician: Audie Peralta MD CLINICAL DECISION UNIT - DISCHARGE SUMMARY Patient Name: Roland Vega Patient Age: 68 y.o. Birthdate: 1950 Admit date: 08/22/2018 Discharge date and time: 08/23/2018 Attending Physician: Audie Peralta MD Discharge Diagnoses: Chest pain Palpitations History of Presentation (from ED Note): 68 y.o. male with history of recent CVA on 08/09, HLD, RA, and NSTEMI who presents to the Emergency Department with palpitations and presyncope. Patient reports that throughout the day today he has had significant palpitations and presyncope with exertion. He denies any associated CP or SOB with exertion. The palpitations and presyncope immediately resolve with rest. He is scheduled for a heart cath at the end of the month. The patient took his blood pressure at home and it was 154/88. He stopped his isosorbide mononitrate at discharge from the hospital. He reports that he does get numbness inhis tongue, but denies vertigo or any other numbness. He denies any new weakness or numbness. He continues to have difficulties with word finding, but has not had any changes. The reports that there has been no change in his gait or concern for his strength. Exam at Time of Discharge: BP 131/78 (BP Location (NBP): Right arm, Patient Position: Sitting) Pulse 54 Temp 36.8 ??C (98.2 ??F) (Oral) Resp 12 Ht 180.3 cm (5' 11) Wt 125.6 kg (277 lb) SpO2 93% BMI 38.63 kg/m?? Constitutional: oriented to person, place, and time. Appears well-developed and well-nourished. No distress. HENT: Head: Normocephalic and atraumatic. Eyes: EOM are normal. Neck: Normal range of motion. Neck supple. No JVD present. No tracheal deviation present. Cardiovascular: Normal rate and regular rhythm. Exam reveals no gallop and no friction rub. No murmur heard. Pulmonary/Chest: Effort normal and breath sounds normal. No respiratory distress. No wheezes. No rales. Exhibits no tenderness. Abdominal: Soft. Exhibits no distension. There is no tenderness. There is no rebound and no guarding. Normal bowel sounds Musculoskeletal: Exhibits no edema or tenderness. Neurological: Alert and oriented to person, place, and time. Skin: Skin is warm and dry. No rash noted. Not diaphoretic. No erythema. No pallor. Emergency Department/Clinical Decision Unit Course: H & PE Monitor EKG Recent Results (from the past 24 hour(s)) Troponin Result Value Ref Range Troponin-T <0.01 0.00 - 0.00 ng/mL Basic Metabolic Panel (non-fasting) Result Value Ref Range Glucose Lvl 77 65 - 199 mg/dL BUN 16 10 - 20 mg/dL Creatinine 1.06 0.80 - 1.50 mg/dL Sodium 140 135 - 145 mmol/L Potassium 4.3 3.5 - 5.0 mmol/L Chloride 101 98 - 107 mmol/L CO2 28 22 - 31 mmol/L Anion Gap 11 5 - 15 mmol/L Calcium 9.6 8.5 - 10.5 mg/dL eGFR 72 >=60 mL/min/1.73 m?? eGFR 84 >=60 mL/min/1.73 m?? Magnesium Result Value Ref Range Magnesium 0.87 0.69 - 1.07 mmol/L Phosphorus Result Value Ref Range Phosphorus 4.0 2.5 - 4.5 mg/dL Hemogram Result Value Ref Range WBC 6.0 4.0 - 9.5 x10(3)/mcL RBC 4.80 4.58 - 5.54 x10(6)/mcL Hemoglobin 14.6 13.7 - 16.5 gm/dL Hematocrit 44.4 40.5 - 48.5 % MCV 92.5 82.9 - 93.1 fL MCH 30.4 27.5 - 32.1 pg MCHC 32.9 32.0 - 35.7 gm/dL Platelets 208 145 - 357 x10(3)/mcL RDWSD 43.9 36.0 - 45.0 fL RDWCV 12.9 11.4 - 13.8 % MPV 9.7 7.6 - 12.9 fL nRBC % Auto 0.0 % nRBC Abs Auto 0.000 0.000 - 0.000 x10(3)/mcL Differential, Automated Result Value Ref Range Neutrophils % 46.1 % Neutr Abs (ANC) 2.78 1.70 - 6.10 x10(3)/mcL Lymphocytes % 40.8 % Lymphocytes Abs 2.5 0.9 - 3.2 x10(3)/mcL Monocytes % 10.9 % Monocyte Abs 0.7 0.3 - 0.9 x10(3)/mcL Eosinophils % 1.2 % Eosinophils Abs 0.1 0.0 - 0.4 x10(3)/mcL Basophils % 0.5 % Basophils Abs 0.0 0.0 - 0.1 x10(3)/mcL Immature Gran % 0.50 % Amanda Gran Abs 0.03 0.00 - 0.04 x10(3)/mcL Blue Tube HOLD Result Value Ref Range Blue Hold Sample in lab. Gold Tube HOLD Result Value Ref Range Gold Hold Sample in lab. Troponin Result Value Ref Range Troponin-T <0.01 0.00 - 0.00 ng/mL SUMMARY: ?? 1. Exercise echo is indeterminate for ischemia because the target HR was not achieved. No ischemia at this level of stress. 2. The patient achieved a maximum heart rate [...] all neff; however, target HR not achieved. 5. ECG: NSR. No significant ST changes with stress. 6. Other details as noted below. ?? Cardiology Consult: please refer to their note Summary of Important Studies and Lab Data: See above Pending Studies and Lab Data: Follow up with [facility] Discharge Condition: good Discharge to: Home with family Discharge Medications: Your Medications Some of the medications listed here do not show instructions, such as how often to take the medication. Ask your doctor or nurse how to use these medications. Specifically ask about this and similar medications: [place]-3 Fatty Acids-Vitamin E (OMEGA-3 FISH OIL) 1,000-5 mg-unit Cap UNREVIEWED medications - Discuss With Your Provider Dose Details aspirin 325 mg Tab Take 1 tablet by mouth daily. 325 mg Quantity: 90 tablet Refills: 3 BUPROBAN 150 mg Sr12 Take 150 mg by mouth 2 times daily. Generic drug: buPROPion 150 mg Refills: 0 clopidogrel 75 mg Tab Commonly known as: PLAVIX Take 1 tablet by mouth daily. 75 mg Quantity: 90 tablet Refills: 1 coQ10 (ubiquinol) 100 mg Cap Take 1 capsule by mouth daily. 1 capsule Refills: 0 ketoconazole 2 % Sham Commonly known as: NIZORAL shampoo, rinse after 5-10 min, daily for flares or weekly for prevention. Quantity: 120 mL Refills: 3 LIPITOR 40 mg Tab 40 MG = 1 Tablet(s), PO, Once daily Generic drug: atorvastatin Refills: 0 metoprolol succinate 100 mg Tablet sr Commonly known as: TOPROL-XL 100 MG = 1 Tablet(s), PO, Once daily Refills: 0 nitroGLYcerin 0.4 mg Subl Commonly known as: NITROSTAT 0.4 MG = 1 Tablet(s), Sublingual, prn Refills: 0 nystatin Crea Commonly known as: MYCOSTATIN Apply to affected areas on the face twice daily as needed. Quantity: 30 g Refills: 3 OME[place]-3 FISH OIL 1,000-5 mg-unit Cap Generic drug: [place]-3 Fatty Acids-Vitamin E Refills: 0 ONETOUCH ULTRA BLUE TEST STRIP Strp use as directed twice a day Generic drug: blood sugar diagnostic strips Refills: 0 ONETOUCH ULTRA2 Kit use as directed twice a day Generic drug: blood-glucose meter Refills: 0 pantoprazole 40 mg Tbec Commonly known as: PROTONIX Take 1 tablet by mouth daily. 40 mg Quantity: 90 tablet Refills: 3 testosterone enanthate 200 mg/mL Oil Commonly known as: DELATESTRYL Inject into the muscle every 7 days. Patient injects 1.25 cc weekly Refills: 0 Updated Allergies/ADRs: Allergies Allergen Reactions ??? Cis Free Text Allergy Swordfish. CIS - Anaphylaxis ??? Cis Free Text Allergy Swordfish. CIS - Anaphylaxis ??? Lisinopril Angioedema Tongue swelling ??? Sulfa (Sulfonamide Antibiotics) CIS - Anaphylaxis, CIS - Anaphylaxis, CIS - Anaphylaxis ??? Hydroxychloroquine Sulfate CIS - visual changes, CIS - visual changes ??? Nsaids (Non-Steroidal Anti-Inflammatory Drug) CIS - swelling, CIS - swelling Future Appointments and Orders Future Appointments and Orders Future Appointments Provider Department Dept Phone 08/31/2018 2:00 PM Niki Zamorano MD [facility]rology at [place] [phone] General Instructions None I have asked Dr Peralta to see this patient today. For questions regarding this document or issues relating to this admission, please contact the Clinical Decision Unit through the [facility] County Manager . Odalys Shea APRN 08/23/18 [id number] * Jackie Ribera LPN - 08/23/2018 2:25 PM EDT Cardiology at bedside discussing plan of care. * Jackie Ribera LPN - 08/23/2018 1:50 PM EDT Pt stated that he doesn't have time to sit around and wait for Cardiology. He'd rather be home and if Cardiology doesn't get there soon they will leave. Animal Hospital Clerk educated Pt on waiting for Cardiology to see their recommendations. Pt agreed to stay. Further, Pt requested information on advanced directives and health care proxy. In addition, asked to be added as his account manager sales representative to discuss Pt's health. * Audie Peralta MD - 08/23/2018 1:45 PM EDT CLINICAL DECISION UNIT - ED ATTENDING DAY OF DISCHARGE NOTE Reason for CDU Admission: Chest Pain Brief Clinical Summary: 68 y.o. male presented to ED with chest pain concerning for possible ACS, and palpitations and lightheadedness. Initial evaluation in the ED did not reveal any objective evidence of cardiac ischemia or an alternative cause to explain the patient's pain. Subsequent course in the CDU also did not reveal any objective evidence of ischemia. Stress imaging was obtained and did not reveal evidence of ischemia. The patient is currently chest pain free with no new complaints. Discharge Vital Signs: BP 131/78 (BP Location (NBP): Right arm, Patient Position: Sitting) Pulse 54 Temp 36.8 ??C (98.2 ??F) (Oral) Resp 12 Ht 180.3 cm (5' 11) Wt 125.6 kg (277 lb) SpO2 93% BMI 38.63 kg/m?? Medical Decision Making: Chest pain of unclear etiology. ACS has essentially been ruled out given negative serial troponin, non-ischemic serial ECGs and non- ischemic stress imaging. Other life threatening causes of chest pain were considered and felt to be unlikely. There have been no other active clinical issues identified. I have determined that the patient meets criteria for discharge at this time. The discharge plan was reviewed with the patient, they have had an opportunity to ask questions, and are in agreement with the plan. He was actually evaluated on a combined set of protocols including chest pain and the syncope protocol due to his lightheadedness. 1 of the main points of the stress test was to see whether or not heredeveloped his symptoms of palpitations and lightheadedness during the exercise component and he did not. He has a Zio patch in place and this will help determine whether or not his palpitations are significant. The patient was seen in conjunction with Ms. Martinneil. Audie Peralta MD 08/23/18 0418 * Arabella Clements RN - 08/23/2018 10:00 AM EDT Late Entry: Patient and his have questions regarding the type of stroke he had earlier in the month and whether more testing is needed. I told them I will ask BALA Morrow to come and talk with them to help clarify some of the issues they have. * Arabella Clements RN - 08/23/2018 9:50 AM EDT Patient returns from stress testing, he wasn't able to obtain his target heart rate due to his neuropathy. He denies chest pain or SOB. Monitor placed back on Sinus Bradycardia. * Jackie Ribera LPN - 08/23/2018 7:37 AM EDT Introductions made to Pt and . Pt is resting comfortably with eyes closed. stated they didn't get a room to around 0200 so they both are very tired. Will continue to monitor. * Karolina Flowers LPN - 08/23/2018 3:[address] Chatterjee, no repeat EKG/Trop at this time. Waiting for am stress test to possibly replicate pts symptoms (palpitations/dizziness). Pt resting comfortable. Call light within reach, spouse at bedside. Will continue to monitor. * Karolina Flowers LPN - 08/23/2018 2:07 AM EDT Report received from GLORIA Quintana Patient moved from admin 1 to room 10B Ambulated c out assistance, denies sob. Cp or palpitations. * Lilian Oglesby NRP - 08/22/2018 11:40 PM EDT Pt denies any pain. States that he had a quick episode of palpitations about 10 minutes ago that lasted a few seconds. * Isaac Cowart MD - 08/22/2018 7:39 PM EDT ED Resident Note Roland Vega is an 68 y.o. male who presents to the ED with: Chief Complaint Patient presents with ??? Palpitations ??? Dizziness I saw this patient on 08/22/2018. History is from patient and . HPI Roland Vega is a 68 y.o. male with history of recent CVA on 08/09, HLD, RA, and NSTEMI who presents to the Emergency Department with palpitations and presyncope. Patient reports that throughout the day today he has had significant palpitations and presyncope with exertion. He denies any associated CP or SOB with exertion. The palpitations and presyncope immediately resolve with rest. He is scheduled for a heart cath at the end of the month. The patient took his blood pressure at home and it was 154/88. He stopped his isosorbide mononitrate at discharge from the hospital. He reports that hedoes get numbness in his tongue, but denies vertigo or any other numbness. He denies any new weakness or numbness. He continues to have difficulties with word finding, but has not had any changes. The reports that there has been no change in his gait or concern for his strength. Review of Systems: Review of Systems Constitutional: Negative for chills and fever. HENT: Negative for nosebleeds, rhinorrhea and sore throat. Eyes: Negative for pain and visual disturbance. Respiratory: Negative for shortness of breath and wheezing. Cardiovascular: Negative for chest pain and leg swelling. Gastrointestinal: Negative for abdominal pain, anal bleeding, blood in stool, constipation, diarrhea, nausea and vomiting. Endocrine: Negative for cold intolerance and heat intolerance. Genitourinary: Negative for dysuria, flank pain and hematuria. Musculoskeletal: Negative for back pain and neck pain. Skin: Negative for rash. Neurological: Positive for speech difficulty. Negative for syncope and headaches. Physical Exam: Patient Vitals for the past 24 hrs: BP Temp Temp src Pulse Resp SpO2 Height Weight 08/22/18 1855 137/79 36.5 ??C (97.7 ??F) Oral 54 20 96 % 180.3 cm (5' 11) 125.6 kg (277 lb) GEN: No acute distress. HEENT: Oropharynx clear, pink, and moist, without discharge. PULM: Clear to auscultation bilaterally, no wheezes, rales, or rhonchi. CV: Regular rate and rhythm, no murmurs, rubs, or gallups. ABD: Soft, non-distended, non-tender to palpation. MSK: No gross deformities. NEURO: AAOx3. PERRL. CN2-12 intact. Upper and lower extremity intact to light touch. Strength 5/5 in biceps, triceps, wrist flexors and extensors, quads, foot dorsal and plantar flexors. No pronator drift. Rapid alternating hand movements intact. Patient able to ambulate in unit. Moves extremities equally. No facial droop. PSYCH: Normal mood and thought pattern. SKIN: No rashes. ED Course: - Patient seen under the supervision of the attending physician. - Medications, allergies, and past medical history reviewed. No results found for this or any previous visit (from the past 24 hour(s)). Assessment and Plan: 68 y.o. male with history of recent CVA on 08/09, HLD, RA, and NSTEMI who presents to the Emergency Department with palpitations and presyncope. Vital signs stable at presentation. Physical exam reassuring, with a non-focal neuro exam. Initial differential diagnoses considered include arrhythmia, ACS, and cardiovascular disease among others. Initial work-up included CBC, BMP, phos, mag, troponin, and EKG. All lab work was wnl. EKG was largely unchanged from previous. He attempted to walk in the department and developed his similar symptoms without any noted arrhythmia. Patient currently has a ziopatch and is planned for cardiac cath on 09/01. Given his vasculopathy history, cardiology was consulted and the patient was admitted to CDU for further observation. Isaac Cowart MD Resident 08/23/18 0041 Associated attestation - Brenna Corbett MD - 08/25/2018 8:24 AM EDT ED ATTENDING ATTESTATION The patient was seen in conjunction with the resident physician. I have independently performed thekey portions of the history and physical exam. I have personally reviewed nursing notes, vital signs, and diagnostic studies including labs, imaging studies and EKGs. I have discussed the details of the case with the resident and agree with the assessment and plan as described in the resident's note, unless stated otherwise in my separate note. 68 YO M with recent CVA and NSTEMI presents with exertional palpitations and pre-syncope. Patient is schedule for cardiac cath at the end of the month. This was postponed in the setting of recent CVA. Patient denies other systemic symptoms, recent illness or new neurologic symptoms. He is clinically well and non-toxic appearing with mild bradycardia and otherwise normal vitals. Exam notable for mild word-finding difficulty (at baseline) with otherwise non-focal exam. EKG is non-ischemic and troponin is negative. Labs including lytes are unremarkable. Cardiology was consulted and patient was admitted to CDU for observation and TTE. documented in this encounter Miscellaneous Notes * Consult Note - Gabby Youssef MD - 08/23/2018 1:30 AM EDT [facility] Department of Cardiology Initial Cardiology Consult Note Patient info: Roland Vega 1950 [id number] Vel Santos MD Date of Admission: 08/22/2018 ( Hospital Day 0 days ) Consult Attending: Dr. Rosen Primary Team: Emergency Department Source: patient, patient's partner, electronic medical record Reason for Consult: We are consulted at the request of Dr. Corbett and Dr. Chatterjee for recommendationsregarding exertional palpitations, fatigue and dizziness. Patient ID: Roland Vega is a 68 y.o. 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 History of Present Illness: Mr. Vega reports that he was in his usual state of health until about three weeks ago. He had anepisode of palpitations and left arm discomfort which prompted his presentation to [facility]. He was evaluated ruled out for ACS and arranged with outpatient cardiac catheterization. However, shortly before his scheduled outpatient catheterization he developed right scalp and facial numbness as well as asense that he could not control his tongue and he presented for evaluation here where he was found to have an acute L MCA territory stroke. He was admitted to Neurology for further management. Cardiology was consulted and recommended delaying the planned cardiac catheterization (done in discussion with his outpatient Handle Maker) which was rescheduled for 09/01. Of note, vascular imaging demonstrated hyperdense filling in the L M2 as a result of which Neuro concluding calcific embolism was the likely cause of the patient's stroke. Nevertheless, he was discharged with a Ziopatch to assess for atrial fibrillation given his reported history of PAF (not substantiated in our records as far asI can tell) and palpitations. During all this time the patient has continued to have intermittent palpitations which most commonly come on with exercise (although sometimes at rest) which are accompanied by a profound sense of fatigue and sometimes dizziness. He also notes although they most commonly come on with exertion that sometimes he exerts himself without symptoms. He reports his symptoms are not worsening and his palpitations which he describes as a piston like sensation have actuallyoverall become less intense. However he is sick of having the symptoms he is having which is seemingly why he presented this time. He had a brief episode while in the ED without any corresponding arrhythmia on telemetry. His rhythm is sinus bradycardia 45-55 with normal blood pressures. His Ziopatch is in place. He denies any chest pain/pressure, ALY/SOB or recurrent arm pain (only episode of armpain was the initial [facility] presentation three weeks ago). His current symptoms are unlike his prior ischemic equivalents which were back pain in 2010 (with RCA NSTEMI) and dyspnea in 2017. ROS: Negative other than as noted in the HPI. 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 Current Outpatient Medications on File Prior to Encounter Medication Sig Dispense Refill ??? ONETOUCH ULTRA BLUE TEST STRIP Strip use as directed twice a day 0 ??? ONETOUCH ULTRA2 Kit use as directed twice a day 0 ??? aspirin 325 mg Tablet Take 1 tablet by mouth daily. 90 tablet 3 ??? pantoprazole (PROTONIX) 40 mg Tablet, Delayed Release (E.C.) Take 1 tablet by mouth daily. 90 tablet 3 ??? clopidogrel (PLAVIX) 75 mg Tablet Take 1 tablet by mouth daily. 90 tablet 1 ??? nystatin (MYCOSTATIN) Cream Apply to affected areas on the face twice daily as needed. 30 g 3 ??? buPROPion (BUPROBAN) 150 mg Tablet Sustained Release Take 150 mg by mouth 2 times daily. ??? coQ10, ubiquinol, 100 mg Capsule Take 1 capsule by mouth daily. ??? testosterone enanthate (DELATESTRYL) 200 mg/mL Oil Inject into the muscle every 7 days. Patientinjects 1.25 cc weekly ??? ketoconazole (NIZORAL) 2 % Shampoo shampoo, rinse after 5-10 min, daily for flares or weekly for prevention. 120 mL 3 ??? [place]-3 Fatty Acids-Vitamin E (OMEGA-3 FISH OIL) 1,000-5 mg-unit Cap ??? nitroGLYcerin (NITROSTAT) 0.4 mg SL tablet 0.4 MG = 1 Tablet(s), Sublingual, prn ??? atorvastatin (LIPITOR) 40 mg tablet 40 MG = 1 Tablet(s), PO, Once daily ??? metoprolol succinate (TOPROL-XL) 100 mg XL tablet 100 MG = 1 Tablet(s), PO, Once daily Allergies: Allergies Allergen Reactions ??? Cis Free Text Allergy Swordfish. CIS - Anaphylaxis ??? Cis Free Text Allergy Swordfish. CIS - Anaphylaxis ??? Lisinopril Angioedema Tongue swelling ??? Sulfa (Sulfonamide Antibiotics) CIS - Anaphylaxis, CIS - Anaphylaxis, CIS - Anaphylaxis ??? Hydroxychloroquine Sulfate CIS - visual changes, CIS - visual changes ??? Nsaids (Non-Steroidal Anti-Inflammatory Drug) CIS - swelling, CIS - swelling Social History: Social History Socioeconomic History ??? Marital status: Spouse name: Not on file ??? Number of children: Not on file ??? Years of education: Not on file ??? Highest education level: Not on file Social Needs ??? Financial resource strain: Not on file ??? Food insecurity - worry: Not on file ??? Food insecurity - inability: Not on file ??? Transportation needs - medical: Not on file ??? Transportation needs - non-medical: Not on file Occupational History ??? Not on file Tobacco Use ??? Smoking status: Former Smoker Last attempt to quit: 08/10/2010 Years since quittin.0 ??? Smokeless tobacco: Never Used Substance and Sexual Activity ??? Alcohol use: Yes Alcohol/week: 8.4 oz Types: 14 Glasses of wine per week ??? Drug use: No ??? Sexual activity: Not on file Other Topics Concern ??? Not on file Social History Narrative ??? Not on file Family History: History reviewed. No pertinent family history. PHYSICAL EXAM: Vitals: Last value Range last 24 hrs Temperature Temp: 36.5 ??C (97.7 ??F) Temp: [36.5 ??C (97.7 ??F)] Heart Rate Heart Rate: 51 Heart Rate: [45-57] Blood Pressure BP: 112/75 BP: (106-148)/(63-85) Respiratory Rate Resp: 17 Resp: [13-20] SpO2 SpO2: 94 % SpO2: [94 %-98 %] No intake or output data in the 24 hours ending 08/23/18 0130 Patient Vitals for the past 168 hrs: Weight 08/22/18 1855 125.6 kg (277 lb) Wt Readings from Last 3 Encounters: 08/22/18 125.6 kg (277 lb) 08/11/18 127.6 kg (281 lb 4.9 oz) 04/21/17 (!) 129.2 kg (284 lb 13.4 oz) Physical Exam: Gen: Pleasant non-toxic appearing older male, anxious but in NAD HEENT: NC/AT, EOMI, Anicteric sclera, MMM, OP clear Neck: Supple with normal ROM, JVP flat CV: Regular bradycardia, S1 and S2 noted, no m/g/r appreciated. Ziopatch taped to left chest. Resp: CTAB with good air movement throughout, normal effort Abd: +normoactive BS, soft obese NTND EXT: Feet cool and hyperpigmented. No cyanosis or edema, DP pulses 2+ and symmetric bilaterally Skin: No rashes, sores or ulcers noted on limited exam. Hyperpigmented skin from mid sahu to ankles. Neuro: Alert and oriented, face symmetric, strength grossly intact Labs: Recent Labs 08/22/18 2130 WBC 6.0 HGB 14.6 HCT 44.4 PLATELET 208 NEUTROABS 2.78 Recent Labs 08/22/18 2130 NA 140 K 4.3 CL 101 CO2 28 BUN 16 CREATININE 1.06 Recent Labs 08/22/18 2130 CALCIUM 9.6 MAGNESIUM 0.87 PHOS 4.0 No results for input(s): AST, ALT, ALKPHOS, BILITOT, BILIDIR in the last 168 hours. No results for input(s): INR, PT, PTT in the last 72 hours. Imaging Studies: None new Cardiovascular Studies: EKG (08/23/2018): Sinus bayron Nonspecific IVCB, nonspecific inferior TW changes No significant change from prior TTE (08/10/2018): SUMMARY: ?? 1. Moderate concentric left ventricular hypertrophy is observed. There is normal global left ventricular systolic function. Ejection fraction is estimated to be 65%. There are no left ventricular segmental wall motion abnormalities. 2. The right ventricle is mildly dilated. Right ventricular global systolic function is normal. 3. There is no hemodynamically significant valve disease. 4. There is mild dilatation of the aortic root. There is moderate dilatation of the ascending aorta. 5. When comapred with study dated 2010, the aorta is not dilated. Otherwise, no significant change was found. 6. See remainder of report for additional findings. 7. See remainder of report for additional findings. Assessment: Roland Vega is a 68 y.o. 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 Overall, Mr. Vega's story would make an unusual ischemic syndrome despite the fact that symptomsmost often come on with exertion. Evaluation at [facility], here 10 days ago and now again in our ED this evening is reassuring with unchanged EKG, negative troponin and otherwise normal lab profile. His symptoms are unlike his prior ischemic syndromes. With the current information, I don't think expediting cath further (ie inpatient) is indicated at this time. I am not even entirely sure his symptoms are cardiac since the patient had symptoms while in the ED without any arrhythmia on telemetry, whichI personally reviewed. The patient was left with the impression after his last discharge that a clot in the heart was the cause of his stroke even though Neurology notes indicate calcified atheroemb olism was the most likely culprit. I think the most helpful next step in addition to completing the troponin rule- out is to obtain an exercise echocardiogram. This could identify exercise induced arrhythmia, chronotropic incompetence or high risk ischemia. Pending results, further disposition can be determined. Please note that with regards to the exercise stress test, the patient's partner expresses concern that he will not able to complete a treadmill stress test due to his peripheral neuropathy, however,the major goal of this study is not necessarily to achieve a diagnostic level of stress but rather to reproduce his symptoms with rhythm and hemodynamic monitoring. Given that he can achieve a level of exercise at home that can induce symptoms I expect he should be able to do so here; even if he does not achieve target HR there is diagnostic utility in that. Recommendations: ?? CDU admission ?? Complete troponin trend ?? Telemetry monitoring ?? Exercise echocardiogram in the morning ?? No indication for urgent/emergent cath at this time Preliminary recommendations are as above. This consult will be staffed with the attending in the morning. Please follow up the addendum to this note for additional and/or modified recommendations. Cardiology will follow up the testing results. Gabby Youssef MD PGY-5, Cardiovascular Diseases Fellow Personal Pager #[phone] 08/23/2018 Associated attestation - Kevin Rosen MD - 08/23/2018 3:34 PM EDT I have read the fellow's note and reviewed related information. I agree with the management. Kevin Rosen MD * ED Triage - Nydia Kirk RN - 08/22/2018 6:56 PM EDT Patient presents to the ED tonight with concern of worsening dizziness and palpitations that are causing him to feel as though he is going to pass out. Patient was seen two weeks ago for CVA, and hadhad palpitation sensation, some fogginess and some tongue numbness. Patient endorses that the palpitation sensation resolved after his discharge but returned in the past several days. He endorses theseverity is similar but the frequency of palpitations is stronger than it was before. Patient is awake and alert, oriented x4. Slow to speak and process through answers. Tongue midline, no facial droop, moving all extremities and sensation intact. No pronator drift. Headache began while patient was sitting in waiting room. PWD, NAD, RRR even and unlabored. Ambulatory with steady gait. documented in this encounter Plan of Treatment Upcoming Encounters Date Type Department Care Team (Late st Contact Info) Description 08/09/2024 10:30 AM EDT Hospital Encounter [place] [address] Navi Montero MD [facility] [place] [address] 08/09/2024 10:30 AM EDT - 08/09/2024 11:15 AM EDT Surgery [place] [address] Navi Montero MD [facility] [place] [address] COLONOSCOPY,SCREENI NG (WRVU 3.26) Scheduled Procedures Name Priority Associated Diagnoses Date/Ti me COLONOSCOPY,SCREENING (WRVU 3.26) polyps 08/09/2024 10:30 AM EDT documented as of this encounter Procedures Procedure Name Priority Date/Time Associated Diagnosis Comments STRESS ECHO W CONTRAST Routine 08/23/2018 9:52 AM EDT Near syncope TROPONIN STAT 08/23/2018 5:10 AM EDT EKG 12-LEAD STAT 08/23/2018 5:02 AM EDT HEMOGRAM STAT 08/22/2018 9:30 PM EDT DIFFERENTIAL, AUTOMATED STAT 08/22/2018 9:30 PM EDT GOLD TUBE HOLD STAT 08/22/2018 9:30 PM EDT BLUE TUBE HOLD STAT 08/22/2018 9:30 PM EDT CBC (WITH DIFF) STAT 08/22/2018 9:30 PM EDT TROPONIN STAT 08/22/2018 9:30 PM EDT PHOSPHORUS STAT 08/22/2018 9:30 PM EDT MAGNESIUM STAT 08/22/2018 9:30 PM EDT BASIC METABOLIC PANEL STAT 08/22/2018 9:30 PM EDT EKG 12-LEAD STAT 08/22/2018 7:08 PM EDT documented in this encounter Results * STRESS ECHO W CONTRAST (08/23/2018 9:52 AM EDT) EF 65 HEARTLAB SYSTEM Anatomical Region Laterality Modality Other 08/23/2018 Narrative 08/23/2018 10:41 AM EDT Procedure: ?Stress Echocardiogram Patient: ?RADHA Antonio ? (Age): 1950(68y) Med Rec#: ? [id number] ?Sex: ?M ? Site Loc: ? [facility] ?Ht / Wt: ??181(cm)/126(kg) Pt. Loc: ?Echo Lab ?BSA: ?2.43 Study Date: ?? 08/23/2018 ?Pt. Type: Tape: ? Referring: Mckenzie Chatterjee Reading: Víctor Stratton ([id number]) Weighter: Erma Hood Goal Umpire: Santana Carson Diagnosis: *Syncope and collapse (R55) Stage ? BP ?HR ? Rest ?132/68 ?60 ? Peak ?170/68 ?86 ? Recovery ?112/68 ?63 ? SUMMARY: 1. Exercise echo is indeterminate for ischemia because the target HR was not achieved. No ischemia at this level of stress. ?? 2. The patient achieved a maximum heart rate of 86 bpm which is 56% of the maximum predicted heart rate (153 beats/min). The target heart rate was not achieved (HR did increase from 53 bpm to 86 bpm, but sub-target for age). 3. The total exercise duration was: 7:03 min (5 METS). ??Low Ramp Protocol was used. Patient exercised into Stage 14. ??The study was terminated because of fatigue. ??The study was terminated because of dyspnea (8/10 shortness of breath at peak exercise). The patient did not express feelings of chest discomfort. The patient experienced shortness of breath. The blood pressure response was normal. Exercise capacity was fair. 4. Echo: Mild concentric left ventricular hypertrophy is observed. There is normal global left ventricular systolic function. ??Ejection fraction is estimated to be 65%. There are no left ventricular segmental wall motion abnormalities. ??During the immediate post exercise period, there is normal recruitment of all neff; however, target HR not achieved. ?? 5. ECG: NSR. ??No significant ST changes with stress. 6. Other details as noted below. Findings Rest: Study Quality: ? Technically limited Left Ventricle: ? The left ventricular chamber size is normal. ?Mild concentric left ventricular hypertrophy is observed. ?There is no evidence of LVOT obstruction. ?There is normal global left ventricular systolic function. ??Ejection fraction is estimated to be 65%. ?There are no left ventricular segmental wall motion abnormalities. Aortic Valve: ? The aortic valve is not well visualized. ?There is no evidence of aortic valve stenosis. Stress: ? EKG: normal sinus rhythm. ?EKG: Interventricular conduction delay. ?The patient's oxygen saturation was 97% ?The patient is taking a beta emily. ?The patient is taking a lipid lowering agent. ?The patient is taking a nitrate. ?The patient is taking aspirin. ?The patient is taking an anti-platelet medication. Misc: ? Definity contrast (one 1.5 ml vial)was used to enhance endocardial definition. Excess contrast was discarded. ?Stress echo and ECG interpretation performed. Findings Peak: Predicted Values:The patient achieved a maximum heart rate of 86 which is 56% of the maximum predicted heart rate (153 beats/min). ??The target heart rate was not achieved. Left Ventricle: ? There is normal global left ventricular systolic function. ?There are no left ventricular segmental wall motion abnormalities. Stress: ? The total exercise duration was:7:03 mins. Low Ramp Protocol was used. Pt exercised into STage 14. Stage 14 was held for 3 seconds. ?The study was terminated because of fatigue. ?The study was terminated because of dyspnea.8/10 shortness of breath at peak exercise. ?The patient did not express feelings of chest discomfort. ?The patient experienced shortness of breath. ?The blood pressure response was normal. ?Exercise capacity was fair. ?The patient achieved a level of 5 METS. ?There were single ventricular premature beats. ?There were no significant ST segment changes. ?The electrocardiographic response is indeterminate for ischemia: failed to achieve target heart rate. ?EKG: normal sinus rhythm. ?The patient's oxygen saturation was 95%. Wall Motion: Segment Name ?Rest ? Peak ? Base-Anteroseptal ?? Normal ? Normal ? Base-Anterior ? Normal ? Normal ? Base-Anterolateral ??Normal ? Normal ? Base-Posterolateral Normal ? Normal ? Base-Inferior ? Normal ? Normal ? Base-Inferoseptal ?? Normal ? Normal ? Mid-Anteroseptal ?Normal ? Normal ? Mid-Anterior ?Normal ? Normal ? Mid-Anterolateral ?? Normal ? Normal ? Mid-Posterolateral ??Normal ? Normal ? Mid-Inferior ?Normal ? Normal ? Mid-Inferoseptal ?Normal ? Normal ? [place]-Septal ? Normal ? Normal ? [place]-Anterior ? Normal ? Normal ? [place]-Lateral ?Normal ? Normal ? [place]-Inferior ? Normal ? Normal ? [place]-Tip ?Normal ? Normal ? This report has been electronically signed by: Víctor Stratton MD ? 08/23/2018 10:41:16 Images reviewed and interpretation verified [facility] Cardiac Ultrasound Laboratory Procedure Note Víctor Stratton MD - 08/23/2018 Procedure: Stress Echocardiogram Patient: RADHA ZAMORANO(Age): 1950(68y) Med Rec#: [id number] Sex: M Site Loc: [facility] Ht / Wt: 181(cm)/126(kg) Pt. Loc: Echo Lab BSA: 2.43 Study Date: 08/23/2018 Pt. Type: Tape: Referring: Mckenzie Chatterjee Reading: Víctor Stratton ([id number]) Weighter: Erma Hood Goal Umpire: Santana Carson Diagnosis: *Syncope and collapse (R55) Stage BP HR Rest 132/68 60 Peak 170/68 86 Recovery 112/68 63 SUMMARY: 1. Exercise echo is indeterminate for ischemia because the target HR was not achieved. No ischemia at this level of stress. 2. The patient achieved a maximum heart rate [...] all neff; however, target HR not achieved. 5. ECG: NSR. No significant ST changes with stress. 6. Other details as noted below. Findings Rest: Study Quality: Technically limited Left Ventricle: The left ventricular chamber size is normal. Mild concentric left ventricular hypertrophy is observed. There is no evidence of LVOT obstruction. There is normal global left ventricular systolic function. Ejection fraction is estimated to be 65%. There are no left ventricular segmental wall motion abnormalities. Aortic Valve: The aortic valve is not well visualized. There is no evidence of aortic valve stenosis. Stress: EKG: normal sinus rhythm. EKG: Interventricular conduction delay. The patient's oxygen saturation was 97% The patient is taking a beta emily. The patient is taking a lipid lowering agent. The patient is taking a nitrate. The patient is taking aspirin. The patient is taking an anti-platelet medication. Misc: Definity contrast (one 1.5 ml vial)was used to enhance endocardial definition. Excess contrast was discarded. Stress echo and ECG interpretation performed. Findings Peak: Predicted Values:The patient achieved a maximum heart rate of 86 which is 56% of the maximum predicted heart rate (153 beats/min). The target heart rate was not achieved. Left Ventricle: There is normal global left ventricular systolic function. There are no left ventricular segmental wall motion abnormalities. Stress: The total exercise duration was:7:03 mins. Low Ramp Protocol was used. Pt exercised into STage 14. Stage 14 was held for 3 seconds. The study was terminated because of fatigue. The study was terminated because of dyspnea.8/10 shortness of breath at peak exercise. The patient did not express feelings of chest discomfort. The patient experienced shortness of breath. The blood pressure response was normal. Exercise capacity was fair. The patient achieved a level of 5 METS. There were single ventricular premature beats. There were no significant ST segment changes. The electrocardiographic response is indeterminate for ischemia: failed to achieve target heart rate. EKG: normal sinus rhythm. The patient's oxygen saturation was 95%. Wall Motion: Segment Name Rest Peak Base-Anteroseptal Normal Normal Base-Anterior Normal Normal Base-Anterolateral Normal Normal Base-Posterolateral Normal Normal Base-Inferior Normal Normal Base-Inferoseptal Normal Normal Mid-Anteroseptal Normal Normal Mid-Anterior Normal Normal Mid-Anterolateral Normal Normal Mid-Posterolateral Normal Normal Mid-Inferior Normal Normal Mid-Inferoseptal Normal Normal [place]-Septal Normal Normal [place]-Anterior Normal Normal [place]-Lateral Normal Normal [place]-Inferior Normal Normal [place]-Tip Normal Normal This report has been electronically signed by: Víctor Stratton MD 08/23/2018 10:41:16 Images reviewed and interpretation verified [facility] Cardiac Ultrasound [facility] Mckenzie Chatterjee MD ECHO ORDERABLES * Troponin (08/23/2018 5:10 AM EDT) Pathologist [facility] Troponin-T <0.01 0.00 - 0.00 ng/mL [facility] Comment: The 99th percentile for Troponin T is less than 0.01 ng/mL, any detectable cTnT concentration using this assay should be considered elevated. According to the third universal definition of myocardial infarction the following criteria with a clinical presentation consistent with acute myocardial ischemia meets the diagnosis for a myocardial infarction (SC). Detection of a rise and/or fall of cTnT, with at least one value greater than the 99th percentile (> or = 0.01) and with at least one of the following ?? Symptoms of ischemia ?? New or presumed new significant KA-oilxugu-A wave (ST-T) changes or new left bundle branch block (LBBB) ?? Development of pathologic Q waves in the ECG ?? Imaging evidence of new loss of viable myocardium or new regional wall motion abnormality ?? Identification of an intracoronary thrombus by angiography or autopsy Samples for cTnT testing should be obtained serially upon first assessment and again 3 to 6 hours later. If the clinical suspicion is high and previous samples have been negative an additional sample may be indicated. Reference: Third [place] Definition of Myocardial Infarction. Journal of the [place] [employer] 2012;60:1581-98 Blood specimen (specimen) 08/23/2018 5:10 AM EDT 08/23/2018 6:02 AM EDT Narrative Resulting Agency Comment Spec In Lab Mckenzie Chatterjee MD CHEMISTRY ORDERABLE S [facility] [place] [address] * EKG 12 Lead (08/23/2018 5:02 AM EDT) Ventricular rate 57 BPM MUSE SYSTEM Atrial Rate 57 BPM MUSE SYSTEM P-R Interval 182 ms MUSE SYSTEM QRS Duration 118 ms MUSE SYSTEM Q-T Interval 468 ms MUSE SYSTEM QTC Calculated (Bezet) 455 ms MUSE SYSTEM Calculated P [place] 23 degrees MUSE SYSTEM Calculated R [place] -52 degrees MUSE SYSTEM Calculated T [place] -7 degrees MUSE SYSTEM INTERPRETATION Sinus bradycardia Left anterior fascicular block Non-specific intra-ventricu lar conduction block Late transition Abnormal ECG When compared with ECG of 22-AUG-2018 19:08, (unconfirmed) No significant change was found Confirmed by MD Jessika, Kevin Viramontes ([id number]) on 08/23/2018 9:06:24 AM MUSE SYSTEM 08/23/2018 5:02 AM EDT 08/23/2018 9:06 AM EDT Mckenzie Chatterjee MD ECG ORDERABLES MUSE SYSTEM * Gold Tube HOLD (08/22/2018 9:30 PM EDT) Gold Hold Sample in lab. [facility] Blood specimen (specimen) Venous Draw / Unknown 08/22/2018 9:30 PM EDT 08/22/2018 9:59 PM EDT Isaac Cowart MD CHEMISTRY ORDERABLE S Performing Organization Address City/[facility]/ZIP Co de Phone Number [facility] [place] [address] * Blue Tube HOLD (08/22/2018 9:30 PM EDT) Blue Hold Sample in lab. [facility] Blood specimen (specimen) Venous Draw / Unknown 08/22/2018 9:30 PM EDT 08/22/2018 9:58 PM EDT Isaac Cowart MD HEMATOLOGY ORDERABL ES Performing Organization Address City/[facility]/ZIP Co de Phone Number [facility] [place] [address] * Differential, Automated (08/22/2018 9:30 PM EDT) Neutrophil % 46.1 % [facility] Neutrophil Absolute 2.78 1.70 - 6.10 x10(3)/mcL [facility] Lymph % 40.8 % [facility] Lymphocytes Abs 2.5 0.9 - 3.2 x10(3)/[facility] Monocyte % 10.9 % [facility] Monocyte Abs 0.7 0.3 - 0.9 x10(3)/[facility] Eos % 1.2 % [facility] Eosinophils Abs 0.1 0.0 - 0.4 x10(3)/[facility] Basophil % 0.5 % [facility] Baso Absolute 0.0 0.0 - 0.1 x10(3)/[facility] Immature Gran % 0.50 % [facility] Comment: Immature granulocytes(IG's)percentage and absolute count will include metamyelocytes, myelocytes, and promyelocytes. Blood smears from CBCs yielding IG's will be scanned manually for concordance. If this scan disagrees with the automated IG or if promyelocytes are noted, a manual differential will be performed. Immature Gran Absolute 0.03 0.00 - 0.04 x10(3)/[facility] Blood specimen (specimen) 08/22/2018 9:30 PM EDT 08/22/2018 9:58 PM EDT Narrative Resulting Agency Comment Spec In Lab Isaac Cowart MD HEMATOLOGY ORDERABL ES [facility] [place] [address] * Hemogram (08/22/2018 9:30 PM EDT) White Blood Cell 6.0 4.0 - 9.5 x10(3)/[facility] Red Blood Cell 4.80 4.58 - 5.54 x10(6)/[facility] Hemoglobin 14.6 13.7 - 16.5 gm/dL [facility] Hematocrit 44.4 40.5 - 48.5 % [facility] Mean Cell Volume 92.5 82.9 - 93.1 fL [facility] Mean Cell Hemoglobin 30.4 27.5 - 32.1 pg [facility] Mean Cell Hemoglobin Concentration 32.9 32.0 - 35.7 gm/dL [facility] Platelet 208 145 - 357 x10(3)/[facility] RDW Standard Deviation 43.9 36.0 - 45.0 [facility] RDW coefficient of variation 12.9 11.4 - 13.8 % [facility] Mean Platelet Volume 9.7 7.6 - 12.9 [facility] NRBC% auto 0.0 % [facility] NRBC Absolute 0.000 0.000 - 0.000 x10(3)/[facility] Blood specimen (specimen) 08/22/2018 9:30 PM EDT 08/22/2018 9:58 PM EDT Narrative Resulting Agency Comment Spec In Lab Isaac Cowart MD HEMATOLOGY ORDERABL ES Performing Organization Address City/[facility]/[place] [address] * Phosphorus (08/22/2018 9:30 PM EDT) Phosphorus 4.0 2.5 - 4.5 mg/dL [facility] Blood specimen (specimen) 08/22/2018 9:30 PM EDT 08/22/2018 9:58 PM EDT Narrative Resulting Agency Comment Spec In Lab Brenna Corbett MD CHEMISTRY ORDERABLES Performing Organization Address City/[facility]/ZIP Co de Phone Number [facility] [place] [address] * Magnesium (08/22/2018 9:30 PM EDT) Magnesium 0.87 0.69 - 1.07 mmol/L [facility] Blood specimen (specimen) 08/22/2018 9:30 PM EDT 08/22/2018 9:58 PM EDT Narrative Resulting Agency Comment Spec In Lab Brenna Corbett MD CHEMISTRY ORDERABLES [facility] [place] [address] * Basic Metabolic Panel (non-fasting) (08/22/2018 9:30 PM EDT) Glucose 77 65 - 199 mg/dL [facility] Comment:Diabetes: >=200 mg/d L plus symptoms Blood Urea Nitrogen 16 10 - 20 mg/dL [facility] Creatinine 1.06 0.80 - 1.50 mg/dL [facility] Sodium 140 135 - 145 mmol/L [facility] Potassium 4.3 3.5 - 5.0 mmol/L [facility] Comment: Please note: ??Patients with WBC >100,000 may have falsely elevated Potassium levels. ??For accurate Potassium quantification in these patients send serum separator tube (gold top) for subsequent determinations. ??Contact the Clinical Chemistry Laboratory if there are any questions. Chloride 101 98 - 107 mmol/L [facility] Carbon Dioxide 28 22 - 31 mmol/L [facility] Anion Gap 11 5 - 15 mmol/L [facility] Calcium 9.6 8.5 - 10.5 mg/dL [facility] Est Glomerular Filtration Rate 72 >=60 mL/min/1. 73 m?? [facility] Comment: The eGFR was calculated using the CKD-EPI equation. As with all creatinine based estimates of kidney function, eGFR values calculated with the CKD-EPI equation are not accurate in patients with acute kidney failure, extremes of body mass or the acutely ill. http://Strut/DHMCnkf eGFR 84 >=60 mL/min/1. 73 m?? [facility] Comment: The eGFR was calculated using the CKD-EPI equation. As with all creatinine based estimates of kidney function, eGFR values calculated with the CKD-EPI equation are not accurate in patients with acute kidney failure, extremes of body mass or the acutely ill. http://Poup.com/DHMCnkf Blood specimen (specimen) 08/22/2018 9:30 PM EDT 08/22/2018 9:58 PM EDT Narrative Resulting Agency Comment Spec In Lab Brenna Corbett MD CHEMISTRY ORDERABLES Performing Organization Address [facility] Co de Phone Number [facility] [place] [address] * Troponin (08/22/2018 9:30 PM EDT) Troponin-T <0.01 0.00 - 0.00 ng/mL [facility] Comment: The 99th percentile for Troponin T is less than 0.01 ng/mL, any detectable cTnT concentration using this assay should be considered elevated. According to the third universal definition of myocardial infarction the following criteria with a clinical presentation consistent with acute myocardial ischemia meets the diagnosis for a myocardial infarction (SC). Detection of a rise and/or fall of cTnT, with at least one value greater than the 99th percentile (> or = 0.01) and with at least one of the following ?? Symptoms of ischemia ?? New or presumed new significant WJ-alcmgww-W wave (ST-T) changes or new left bundle branch block (LBBB) ?? Development of pathologic Q waves in the ECG ?? Imaging evidence of new loss of viable myocardium or new regional wall motion abnormality ?? Identification of an intracoronary thrombus by angiography or autopsy Samples for cTnT testing should be obtained serially upon first assessment and again 3 to 6 hours later. If the clinical suspicion is high and previous samples have been negative an additional sample may be indicated. Reference: Third [place] Definition of Myocardial Infarction. Journal of the [place] [employer] 2012;60:1581-98 Blood specimen (specimen) 08/22/2018 9:30 PM EDT 08/22/2018 9:58 PM EDT Narrative Resulting Agency Comment Spec In Lab Brenna Corbett MD CHEMISTRY ORDERABLES Performing Organization Address [facility]/ZIP Co de Phone Number [facility] [place] [address] * EKG 12 Lead (08/22/2018 7:08 PM EDT) Ventricular rate 52 BPM MUSE SYSTEM Atrial Rate 52 BPM MUSE SYSTEM P-R Interval 188 ms MUSE SYSTEM QRS Duration 128 ms MUSE SYSTEM Q-T Interval 484 ms MUSE SYSTEM QTC Calculated (Bezet) 450 ms MUSE SYSTEM Calculated P [place] 33 degrees MUSE SYSTEM Calculated R [place] -51 degrees MUSE SYSTEM Calculated T [place] -12 degrees MUSE SYSTEM INTERPRETATION Sinus bradycardia Left axis deviation Non-specific intra-ventricu lar conduction block Late transition Abnormal ECG When compared with ECG of 09-AUG-2018 21:30, No significant change was found Confirmed by MD Jessika, Kevin Viramontes ([id number]) on 08/23/2018 9:06:00 AM MUSE SYSTEM 08/22/2018 7:08 PM EDT 08/23/2018 9:06 AM EDT Brenna Corbett MD ECG ORDERABLES MUSE SYSTEM documented in this encounter Visit Diagnoses Diagnosis Palpitations- Primary Near syncope Syncope and collapse Near syncope Syncope and collapse documented in this encounter Admitting Diagnoses Diagnosis Near syncope Syncope and collapse documented in this encounter Active and Recently Administered Medications Care Teams Television Camera Operator Relationship Specialty Start Date End Date Vel Santos MD [address] [place] [phone] PCP - General 09/24/10 06/04/23 documented as of this encounter
--- OUTSIDE RECORDS SUMMARY | 2024-07-19 22:17 | XMS_ITS | Encounter Summary ---
Author Organization [place] [address] Care Team Providers Care Structural Iron Erector Name Role Phone Vel Santos MD Primary Care Provider [phone] Encounter Details Date Type Department Care Team (Latest Contact Info) Description 11/04/2018 10:35 AM EST - 11/04/2018 1:47 PM EST Hospital Encounter [place] [address] Owen Delgado MD [facility] [place] [address] Discharge Disposition: Home Social History Tobacco Use [...] Sign Reading Time Taken Comments Blood Pressure 131/74 11/04/2018 12:58 PM EST Pulse 76 11/04/2018 12:58 PM EST Temperature 36.5 ??C (97.7 ??F) 11/04/2018 10:[address] Respiratory Rate 16 11/04/2018 12:58 PM EST Oxygen Saturation 92% 11/04/2018 12:58 PM EST Inhaled Oxygen Concentration - - Weight 127.5 kg (281 lb) 11/04/2018 10:56 AM EST Height 180.3 cm (5' 11) 11/04/2018 10:56 AM EST Body Mass Index 39.19 11/04/2018 10:56 AM EST documented in this encounter Discharge Instructions * Patient Instructions* Kris León MD - 11/04/2018 1:01 PM EST FINAL LOOP RECORDER RECOMMENDATIONS: 1. Standard post implant discharge instructions (see below): 2. Medications as listed above. ?? You may use ice packs over the incision. Make sure to use a cloth handler (such as a towel) in between the ice pack and the bare skin and that it stays DRY. 3. Follow up in pacemaker clinic in 10 days for a wound check and device check. DEVICE CLINIC 1. You will be scheduled for a ~10 day wound check in the Device Clinic for: ?? Incision check ?? Device interrogation ?? Review of remote follow up and set up of home monitor 2. Your device will be checked every 3 months (either in clinic or by remote). 3. Prior to discharge, you will be given a home monitor so that your device can send clinical data to the device clinic nurses. If you are unable to set this up at home prior to your wound check, we will review this at the time of your appointment NOTE: The device data we review from your home monitor is comparable to an in- office appointment. Therefore, your insurance company will be billed for review of your data. Depending on your coverage,you may be responsible for a portion of his charge. We recommend that you contact your insurance carrier for more details about your particular coverage. WOUND CARE FOR YOUR INCISION: Your wound [...] has had sufficient time to heal - Do not shower for 48 hours after implant - While in the shower, turn your [...] F. The office scheduling phone number is [phone]. documented in this encounter Medications at Time of Discharge Medication Sig Dispensed Refills Start Date End Date cholecalciferol, Vitamin D3, 2,000 unit Capsule Take [...] H&P Notes * Kris León MD - 11/04/2018 10:57 AM EST Roland Vega [id number] 11/04/2018 68 y.o. Admission History and Physical PCP: Vel Santos MD Date of Evaluation: 11/04/2018 Date of Admission: 11/04/2018 HPI: 68yr old male with history of left MCA CVA, CAD s/p PCI and syncope who is referred for loop recorder implant. He was seen by in clinic for complaints of intermittent episodes of lightheadedness/dizziness. He has had near syncopal episodes and syncope in the past but none recently. He underwent EST echo which was deemed indeterminate because of not reaching target HR(was on BB). He also had a Zio patch monitoring in September which showed limited HR excursion with max HR at 90bpm. No pauses, atrial or ventricular arrhythmia was found. His symptoms has continued and is unexplained hence isreferred for loop recorder implant to exclude arrhythmia as the cause of his symptoms. Procedure details has been discussed with patient, risks and potential complication of procedure explained to patient and consent signed. Problem List: Active Non-Hospital [...] outpatient note. Physical Exam: Vital signs: BP (!) 140/93 (BP Location (NBP): Left arm) Pulse 82 Temp 36.5 ??C (97.7 ??F) (Temporal) Resp 18 Ht 180.3 cm (5' 11) Wt 127.5 kg (281 lb) BMI 39.19 kg/m?? Physical Exam Constitutional: He appears well-developed and well-nourished. No distress. HENT: Head: Normocephalic. Eyes: Pupils are equal, round, and reactive to light. Neck: Normal range of motion. Cardiovascular: Normal rate, regular rhythm, normal heart sounds and intact distal pulses. No murmur heard. Pulmonary/Chest: Effort normal and breath sounds normal. No respiratory distress. He has no wheezes. He has no rales. Abdominal: Soft. Bowel sounds are normal. He exhibits no distension. There is no tenderness. There is no rebound and no guarding. ASSESSMENT 68yr old male with history of syncope, CAD and CVA who is referred for ILR implant for evaluation of intermittent dizziness and lightheadedness. He has had a Zio patch which did not show any arrhythmia, pauses but showed limited HR variability with Max HR 90bpm. He also had a stress test with Max HR of 84bpm on BB. He is referred for ILR implant to exclude electrical conduction abnormalities associated with his symptoms. PLAN Proceed with ILR implant Local anesthesia Kris León MD 11/04/2018 11:39 AM Associated attestation - Owen Delgado MD - 11/04/2018 1:33 PM EST Cardiac Electrophysiology Attending Addendum: The patient was seen, interviewed and examined by me, and Dr. León's note above was reviewed by me and agreed with. Specifically, the pertinent diagnoses and recommendations were discussed with me. Proceed to ILR implant to determine presence of paroxysmal atrial fibrillation/flutter/need for anticoagulation. Owen Delgado MD, PhD, [facility] Cardiac Electrophysiology documented in this encounter Plan of Treatment Upcoming Encounters Date Type Department Care Team (Late st Contact Info) Description 08/09/2024 10:30 AM EDT Hospital Encounter [place] [address] Navi Montero MD [facility] [place] [address] 08/09/2024 10:30 AM EDT - 08/09/2024 11:15 AM EDT Surgery [place] [address] Navi Montero MD [facility] [place] [address] COLONOSCOPY,KENDALL DAN ([facility] 3.26) Scheduled Procedures Name Priority Associated Diagnoses Date/Ti me COLONOSCOPY,SCREENING ([facility] 3.26) polyps 08/09/2024 10:30 AM EDT documented as of this encounter Visit Diagnoses Not on filedocumented in this encounter Administered Medications Inactive Administered Medications - up to 3 most recent administrations Medication Order MAR Action Action Date Dose Rate Site BUpivacaine (PF) (MARCAINE) 0.5 % (5 mg/mL) injection 150 mg 150 mg (30 mL), Subcutaneous, ONCE, 1 dose, On Nydia 11/04/18 at 1200, EP (Intra-Procedure), Routine Given 11/04/2018 11:56 AM EST 150 mg ceFAZolin (ANCEF) 2g in dextrose 5% 100 mL 2 g, Intravenous, ONCE, 1 dose, On Nydia 11/04/18 at 1130, Administer over 30 Minutes, For use in the electrophysiology lab (EP lab) only for procedural sedation with direct provider supervision and verbal order., EP (Intra-Procedure), Indication for (Active or Suspected): Prophylaxis New Bag 11/04/2018 11:34 AM EST 2 g 200 mL/hr fentaNYL (PF) 50mcg/mL injection 25-50 mcg, Intravenous, EVERY 5 MIN PRN, Starting on Nydia 11/04/18 at 1226, Until Nydia 11/04/18 at 1346, Pain, As needed to induce or maintain moderate sedation per [facility] Moderate Sedation Policy for the duration of the EP procedure., As needed to induce or maintain moderate sedation per [facility] Moderate Sedation Policy for the duration of the EP procedure. For use in the electrophysiology lab (EP lab) only for procedural sedation with direct provider supervision and verbal order. RASS goal (-)2 to (-)3. Start at 25 mcg, Dose not to exceed 50 mcg/dose, 250 mcg/hr, or 20 mcg/kg per case., EP (Intra-Procedure), Routine Given 11/04/2018 12:31 PM EST 25 mcg Given 11/04/2018 12:26 PM EST 25 mcg lidocaine (XYLOCAINE) 20 mg/mL (2 %) injection 400 mg 400 mg (20 mL), Subcutaneous, ONCE, 1 dose, On Nydia 11/04/18 at 1200, EP (Intra-Procedure), Routine Given 11/04/2018 11:56 AM EST 400 mg documented in this encounter Active and Recently Administered Medications Times are shown in EST. Scheduled Medication Order 11/02/2018 11/03/2018 11/04/2018 BUpivacaine (PF) (MARCAINE) 0.5 % (5 mg/mL) injection 150 mg (COMPLETED) 150 mg (30 mL), Subcutaneous, ONCE, 1 dose, On Nydia 19 at 1200, EP (Intra-Procedure), Routine 1156 (Given - Provid er: Raina Blair RN) ceFAZolin (ANCEF) 2g in dextrose 5% 100 mL (COMPLETED) 2 g, Intravenous, ONCE, 1 dose, On Nydia 11/04/18 at 1130, Administer over 30 Minutes, For use in the electrophysiology lab (EP lab) only for procedural sedation with direct provider supervision and verbal order., EP (Intra-Procedure), Indication for (Active or Suspected): Prophylaxis 1134 (New Bag - Prov ider: Raina Blair RN)1204 (Stopped - Provider: Raina Blair RN) lidocaine (XYLOCAINE) 20 mg/mL (2 %) injection 400 mg (COMPLETED) 400 mg (20 mL), Subcutaneous, ONCE, 1 dose, On Nydia 11/04/18 at 1200, EP (Intra-Procedure), Routine 1156 (Given - Provid er: Raina Blair RN) PRN Medication Order 11/02/2018 11/03/2018 11/04/2018 fentaNYL (PF) 50mcg/mL injection (CANCELED) 25-50 mcg, Intravenous, EVERY 5 MIN PRN, Starting on Nydia 11/04/18 at 1226, Until Nydia 119 at 1346, Pain, As needed to induce or maintain moderate sedation per [facility] Moderate Sedation Policy for the duration of the EP procedure., As needed to induce or maintain moderate sedation per [facility] Moderate Sedation Policy for the duration of the EP procedure. For use in the electrophysiology lab (EP lab) only for procedural sedation with direct provider supervision and verbal order. RASS goal (-)2 to (-)3. Start at 25 mcg, Dose not to exceed 50 mcg/dose, 250 mcg/hr, or 20 mcg/kg per case., EP (Intra-Procedure), Routine 1226 (Given - Provid er: Riana Blair RN)1231 (Given - Provider: Raina C Blair, RN) documented in this encounter Care Teams Structural Iron Erector Relationship Specialty Start Date End Date Vel Santos MD [address] [place] [phone] PCP - General 09/24/10 06/04/23 documented as of this encounter
--- OUTSIDE RECORDS SUMMARY | 2024-07-19 22:17 | XMS_ITS | Encounter Summary ---
Author Organization Counts Include [address] [facility] [address] Care Team Providers Care Fingerprinter Name Role Phone Vel Santos MD Primary Care Provider [phone] Encounter Details Date Type Department Care Team (Late st Contact Info) Description 09/21/2018 Telephone Cardiology at [address] [phone] Claudia Crespo, RN Social History Tobacco Use Types Packs/Day [...] encounter Miscellaneous Notes * Telephone Encounter - Claudia Lopez, RN - 09/21/2018 12:20 PM EST Pt and calling in to day to advise that pt has been feeling considerably better the past two weeks on the reduced dose of Metoprolol succinate 50 mg daily. Pt did however, have a profound episode of palpitations, dizziness ( to the point he had to sit down) which occurred approx 1 hr after taking the metoprolol dose. Pt states that he was walking into his PCP's office at the time of this incident. Pt says that his PCP is wondering if Dr. Rubio would consider pt coming off Metoprolol completely at this point as he feels symptoms are due to medication not condition. Advised pt will forward this message to Dr. Rubio for a response and someone will call him back with an answer. Pt in ag reement with this plan. documented in this encounter Plan of Treatment Upcoming Encounters Date Type Department Care Team (Late st Contact Info) Description 08/09/2024 10:30 AM EDT Hospital En[place] [address] Navi Montero MD [facility] [place] [address] 08/09/2024 10:30 AM EDT - 08/09/2024 11:15 AM EDT [place] [address] Navi Montero MD [facility] [place] [address] COLONOSCOPY,SCREENI NG ([facility] 3.26) Scheduled Procedures Name Priority Associated Diagnoses Date/Ti me COLONOSCOPY,SCREENING ([facility] 3.26) polyps 08/09/2024 10:30 AM EDT documented as of this encounter Visit Diagnoses Not on filedocumented in this encounter Care Teams Fingerprinter Relationship Specialty Start Date End Date Vel Santos MD [address] [place] [phone] PCP - General 09/24/10 06/04/23 documented as of this encounter
--- OUTSIDE RECORDS SUMMARY | 2024-07-19 22:17 | XMS_ITS | Encounter Summary ---
[place] [address] Care Team Providers Care Cash Surrender Calculator Name Role Phone Vel Santos MD Primary Care Provider [phone] Encounter Details Date Type Department Care Team (Late st Contact Info) Description 01/17/2019 Telephone Cardiology at [address] [phone] Moon South RN Social History Tobacco Use [...] Telephone Encounter - Moon South RN - 01/17/2019 8:04 AM EDT CALLED TO ASK SYMPTOM,not available. documented in this encounter Plan of Treatment Upcoming Encounters Date Type Department Care Team (Late st Contact Info) Description 08/09/2024 10:30 AM EDT Hospital Encounter [place] [phone] [facility] [place] [address] 08/09/2024 10:30 AM EDT - 08/09/2024 11:15 AM EDT Surgery [place] [address] [facility] [address] [place] [address] COLONOSCOPY,SCREENI NG (WRVU 3.26) Scheduled Procedures Name Priority Associated Diagnoses Date/Ti me COLONOSCOPY,SCREENING ([facility] 3.26) polyps 08/09/2024 10:30 AM EDT documented as of this encounter Visit Diagnoses Not on filedocumented in this encounter Care Teams Cash Surrender Calculator Relationship Specialty Start Date End Date Vel Santos MD [address] [place] [phone] PCP - General 09/24/10 06/04/23 documented as of this encounter
--- OUTSIDE RECORDS SUMMARY | 2024-07-19 22:17 | XMS_ITS | Encounter Summary ---
[place] [address] Care Team Providers Care Recooperer Name Role Phone Vel Santos MD Primary Care Provider [phone] Reason for Visit * Auth/Cert Specialty Diagnoses / Procedures Referred By Yi t Referred To Contact Diagnoses Near syncope Referral ID Status Reason Start Date Expiration Date Visits Re quested Visits Authorized [id number] 1 1 Encounter Details Date Type Department Care Team (Latest Contact Info) Description 08/23/2018 9:00 AM EDT - 08/23/2018 11:59 PM EDT Hospital Encounter Non-Invasive [place] [address] Discharge Disposition: Home Social History Tobacco Use [...] for prevention. 120 mL 3 08/10/2015 08/12/2023 Harrison-3 Fatty Acids-Vitamin E (OMEGA-3 FISH OIL) 1,000-5 mg-unit Cap 11/13/2010 09/09/20 18 atorvastatin (LIPITOR) 40 mg tablet 40 MG = 1 Tablet(s), PO, Once daily 11/13/2010 08/12/2023 metoprolol succinate (TOPROL-XL) 100 mg XL tablet Take by mouth. 11/13/2010 08/12/2023 documented as of this encounter Plan of Treatment Upcoming Encounters Date Type Department Care Team (Late st Contact Info) Description 08/09/2024 10:30 AM EDT Hospital Encounter [place] [address] Navi Montero MD [facility] [place] [address] 08/09/2024 10:30 AM EDT - 08/09/2024 11:15 AM EDT Surgery [place] [phone] Navi Montero MD [facility] [place] [address] COLONOSCOPY,SCREENI NG (WRVU 3.26) Scheduled Procedures Name Priority Associated Diagnoses Date/Ti wi COLONOSCOPY,SCREENING ([facility] 3.26) polyps 08/09/2024 10:30 AM EDT documented as of this encounter Procedures Procedure Name Priority Date/Time Associated Diagnosis Comments STRESS ECHO W CONTRAST Routine 08/23/2018 9:52 AM EDT Near syncope documented in this encounter Visit Diagnoses Not on filedocumented in this encounter Administered Medications Inactive Administered Medications - up to 3 most recent administrations Medication Order MAR Action Action Date Dose Rate Site perflutren lipid microspheres (DEFINITY) injection 1.5 mL 1.5 mL, Intravenous, ONCE PRN, 1 dose, Starting on Thu08/23/18 at 0952, Until Thu08/23/18 at 0953, prn, Routine Given 08/23/2018 9:53 AM EDT 1.5 mLs documented in this encounter Care Teams Recooperer Relationship Specialty Start Date End Date Vel Santos MD [address] [place] [phone] PCP - General 09/24/10 06/04/23 documented as of this encounter
--- OUTSIDE RECORDS SUMMARY | 2024-07-19 22:17 | XMS_ITS | Encounter Summary ---
Author Organization [facility] Address [facility] [address] Care Team Providers Care Burner Tender Name Role Phone Vel Santos MD Primary Care Provider [phone] Encounter Details Date Type Department Care Team (Late st Contact Info) Description 01/19/2019 Notes Only Cardiology at [address] [phone] Sharron Lechuga MD [facility] [place] [address] Social History Tobacco Use Types Packs/Day Years [...] as of this encounter Progress Notes * Sharron Lechuga MD - 01/19/2019 3:09 PM EDT ILR Remote Transmission Interpretation Date of transmission: 01/15/19 Date of implant: 11/04/18 Reason for implant: syncope Battery: OK Events - There have been no episodes of tachycardia, pauses, bradycardia, AT/AF as programmed - There have been 21 symptom episodes since implant. ID #25 01/15/19: sinus rhythm with rare isolated PVCs ID #24 3/3/19: sinus rhythm with artifact ID #23 01/02/19: sinus rhythm with rare isolated PVCs and artifact ID #22 01/02/19: Irregular rhythm with normal rate ranging from about 50 to 80 bpm. Because this event was not automatically classified, the duration of the episode cannot be determined but lasted at least 6 minutes based on the recorded period. This appears to be sinus rhythm with significant sinus arrhythmia and frequent supraventricular ectopy. ID #21 01/01/19: sinus rhythm with likely brief run of nonsustained ventricular tachycardia lasting 12 seconds ID #20 12/30/18: likely sinus rhythm (complete report not available) ID #19 12/29/18: likely sinus rhythm (complete report not available) ID #18 12/28/18: likely sinus rhythm (complete report not available) Conclusion(s): 1). Dozens of symptom episodes triggered since implant most of which correlate with likely sinus rhythm 2). One episode on 01/02/19 with an irregular rhythm that likely represents sinus rhythm with significant sinus arrhythmia and frequent supraventricular ectopy. 3). Battery OK documented in this encounter Plan of Treatment Upcoming Encounters Date Type Department Care Team (Late st Contact Info) Description 08/09/2024 10:30 AM EDT Hospital En[place] [address] Navi Montero MD [facility] [place] [address] 08/09/2024 10:30 AM EDT - 08/09/2024 11:15 AM EDT [place] [address] Navi Montero MD [facility] [place] [address] COLONOSCOPY,SCREENI NG (WRVU 3.26) Scheduled Procedures Name Priority Associated Diagnoses Date/Ti me COLONOSCOPY,SCREENING (WRVU 3.26) polyps 08/09/2024 10:30 AM EDT documented as of this encounter Visit Diagnoses Not on filedocumented in this encounter Care Teams Burner Tender Relationship Specialty Start Date End Date Vel Santos MD [address] [place] [phone] PCP - General 09/24/10 06/04/23 documented as of this encounter
--- OUTSIDE RECORDS SUMMARY | 2024-07-19 22:17 | XMS_ITS | Encounter Summary ---
Author Organization [facility] [place] [address] Care Team Providers Care Esthetician Makeup Artist Name Role Phone Vel Santos MD Primary Care Provider [phone] Encounter Details Date Type Department Care Team (Late st Contact Info) Description 11/04/2018 11:45 AM EST - 11/04/2018 12:45 PM EST Surgery [place] [address] Owen Delgado MD [facility] [place] [address] ELECTROPHYSIOLOGY PROCEDURE Social History Tobacco Use Types [...] Sign Reading Time Taken Comments Blood Pressure 131/76 11/04/2018 12:45 PM EST Pulse 72 11/04/2018 12:45 PM EST Temperature 36.5 ??C (97.7 ??F) 11/04/2018 10:[address] Respiratory Rate 21 11/04/2018 12:45 PM EST Oxygen Saturation 94% 11/04/2018 12:45 PM EST Inhaled Oxygen Concentration - - [...] incision. Make sure to use a cloth grader supervisor (such as a towel) in between the [...] F. The office scheduling phone number is [phone]. documented in this encounter Medications at Time [...] MD - 11/04/2018 10:57 AM EST Roland Antonio Silvia [id number] 11/04/2018 68 y.o. Admission History and Physical [...] fibrillation/flutter/need for anticoagulation. Owen Delgado MD, PhD, [facility] Cardiac Electrophysiology documented in this encounter Plan of Treatment Upcoming Encounters Date Type Department Care Team (Late st Contact Info) Description 08/09/2024 10:30 AM EDT Hospital Encounter [place] [address] Navi Montero MD [facility] [place] [address] 08/09/2024 10:30 AM EDT - 08/09/2024 11:15 AM EDT [place] [address] Navi Montero MD [facility] [place] [address] COLONOSCOPY,SCREENI NG (WRVU 3.26) Scheduled Procedures Name Priority Associated Diagnoses Date/Ti me COLONOSCOPY,SCREENING (WRVU 3.26) polyps 08/09/2024 10:30 AM EDT documented as of this encounter Visit Diagnoses Diagnosis Near syncope Syncope and collapse Acute ischemic left MCA stroke Unspecified cerebral artery occlusion with cerebral infarction documented in this encounter Administered Medications Inactive [...] to induce or maintain moderate sedation per [facility] Moderate Sedation Policy for the duration of the EP procedure., As needed to induce or maintain moderate sedation per [facility] Moderate Sedation Policy for the duration of [...] (Intra-Procedure), Routine 1156 (Given - Provid er: Raian Blair RN) PRN Medication Order 11/02/2018 11/03/2018 11/04/2018 fentaNYL (PF) 50mcg/mL injection (CANCELED) 25-50 mcg, Intravenous, EVERY 5 MIN PRN, Starting on Nydia 119 at 1226, Until Nydia 119 at 1346, Pain, As needed to induce or maintain moderate sedation per [facility] Moderate Sedation Policy for the duration of the EP procedure., As needed to induce or maintain moderate sedation per [facility] Moderate Sedation Policy for the duration of the EP procedure. For use in the electrophysiology lab (EP lab) only for procedural sedation with direct provider supervision and verbal order. RASS goal (-)2 to (-)3. Start at 25 mcg, Dose not to exceed 50 mcg/dose, 250 mcg/hr, or 20 mcg/kg per case., EP (Intra-Procedure), Routine 1226 (Given - Provid er: Raina Blair RN)1231 (Given - Provider: Raina Blair RN) documented in this encounter Care Teams Esthetician Makeup Artist Relationship Specialty Start Date End Date Vel Santos MD [address] [place] [phone] PCP - General 09/24/10 06/04/23 documented as of this encounter
--- OUTSIDE RECORDS SUMMARY | 2024-07-19 22:17 | XMS_ITS | Encounter Summary ---
[place] [address] Care Team Providers Care Quality Assurance Intern Name Role Phone Vel Santos MD Primary Care Provider [phone] Reason for Referral * Diagnostic Test (Routine) - Closed Specialty Diagnoses / Procedures Referred By Yi cummings Referred To Contact Diagnoses Cerebrovascular accident (CVA), unspecified mechanism Procedures Maxi Lopez PA [facility] [place] [address] [address] Referral ID Status Reason Start Date Expiration Date V isits Requested Visits Authorized [id number] Closed Specialty Service Requested 08/11/2018 08/11/2019 1 1 Reason for Visit * Auth/Cert Specialty Diagnoses / Procedures Referred By Yi cummings Referred To Contact Diagnoses TIA (transient ischemic attack) Acute ischemic left MCA stroke Cerebral infarction due to embolism of left middle cerebral artery Cerebrovascular accident (CVA), unspecified mechanism Referral ID Status Reason Start Date Expiration Date Visits Re quested Visits Authorized [id number] 1 1 Encounter Details Date Type Department Care Team (Latest Contact Info) Description 08/11/2018 2:00 PM EDT - 08/11/2018 11:59 PM EDT Hospital Encounter [place] [address] Cerebrovascular accident (CVA), unspecified mechanism Discharge Disposition: Home Social History Tobacco Use [...] for prevention. 120 mL 3 08/10/2015 08/12/2023 [place]-3 Fatty Acids-Vitamin E (OMEGA-3 FISH OIL) 1,000-5 [...] 10:30 AM EDT Hospital Encounter [place] [address] Navi Montero MD [facility] [place] [address] 08/09/2024 10:30 AM EDT - 08/09/2024 11:15 AM EDT Surgery [place] [phone] Navi Montero MD [facility] [place] [address] COLONOSCOPY,SCREENI NG (WRVU 3.26) Scheduled Procedures Name Priority Associated Diagnoses Date/Ti me COLONOSCOPY,SCREENING (WRVU 3.26) polyps 08/09/2024 10:30 AM EDT documented as of this encounter Procedures Procedure Name Priority Date/Time Associated Diagnosis Comments ZIOPATCH Routine 08/11/2018 2:42 PM EDT Cerebrovascular accident (CVA), unspecified mechanism documented in this encounter Results * Ziopatch (08/11/2018 2:42 PM EDT) Anatomical Region Laterality Modality Other Narrative 09/06/2018 11:15 PM EST [facility] ? Zio Patch? Ambulatory Cardiac Event Monitor Report Indication: stroke Duration of recording ? 6 days, 17 hours Summary Data Predominant rhythm ? sinus rhythm with 1st deg AV block Minimum sinus rate 43 bpm Maximum sinus rate 90 bpm Average heart rate 57 bpm Very little heart rate variability is observed. Atrial fibrillation none Ectopic beats <1% atrial premature beats (APC? s) <1% ventricular premature beats (VPC's) 3 runs of SVT were detected with the longest being 18 beats at 124 bpm. These are nonsustained and are most likely brief runs of atrial tachycardia or atrial premature beats. One 12 beat run of nonsustained tachycardia was observed with avg heart rate of 116 bpm. This was labeled as nonsustained ventricular tachycardia but review of the strip suggests that this is supraventricular in origin. NSVT cannot be entirely excluded. Triggered and Patient Diary Events There were 19 triggered and 0 patient diary events: Triggered events heart rate range is 47 to 69 bpm. Most episodes occur during sinus rhythm. 5 occur in the setting of infrequent atrial or ventricular ectopy. 1 occurred during possible NSVT vs. Nonsustained SVT. Conclusion(s): ?? 1) Predominant rhythm is sinus with very little heart rate variability and the sinus rate not exceeding 90 bpm. 2) No atrial fibrillation is detected. 3) Symptoms occurred primarily during normal sinus rhythm or sinus bradycardia without significant arrhythmia. 4) Possible nonsustained ventricular tachycardia was detected, though this most likely represents a supraventricular nonsustained tachycardia. Raymond Cyr MD S Cardiac Electrophysiology 09/06/2018 11:14 PM Niki Zamorano MD [facility] documented in this encounter Visit Diagnoses Diagnosis Cerebrovascular accident (CVA), unspecified mechanism documented in this encounter Care Teams Quality Assurance Intern Relationship Specialty Start Date End Date Vel Santos MD [address] [place] [phone] PCP - General 09/24/10 06/04/23 documented as of this encounter
--- OUTSIDE RECORDS SUMMARY | 2024-07-19 22:17 | XMS_ITS | Encounter Summary ---
[place] [address] Care Team Providers Care Home Health Nurse Name Role Phone Vel Santos MD Primary Care Provider [phone] Reason for Referral * Diagnostic Test (Routine) - Closed Specialty Diagnoses / Procedures Referred By Contac t Referred To Contact Radiology Diagnoses Lung nodule Procedures CT Chest wo Contrast (Generic) CT Chest w Contrast Vel Santos MD [address] [place] [phone] [facility] [place] [address] Referral ID Status Reason Start Date Expiration Date V isits Requested Visits Authorized [id number] Closed Specialty Service Requested 09/03/2018 09/03/2019 1 1 Reason for Visit * Diagnostic Test (Routine) - Closed Specialty Diagnoses / Procedures Referred By Contac t Referred To Contact Radiology Diagnoses Lung nodule Procedures CT Chest wo Contrast (Generic) CT Chest w Contrast Vel Santos MD [address] [place] [phone] [facility] [place] [address] Referral ID Status Reason Start Date Expiration Date V isits Requested Visits Authorized [id number] Closed Specialty Service Requested 09/03/2018 09/03/2019 1 1 Encounter Details Date Type Department Care Team (Latest Contact Info) Description 03/08/2019 11:27 AM EDT - 03/08/2019 11:59 PM EDT Hospital [place] [address] Vel Santos MD [address] [place] [phone] Lung nodule Discharge Disposition: Home Social History Tobacco Use [...] 10:30 AM EDT Hospital Encounter [place] [address] Navi Montero MD [facility] [place] [address] 08/09/2024 10:30 AM EDT - 08/09/2024 11:15 AM EDT Surgery [place] [address] Navi Montero MD [facility] [place] [address] COLONOSCOPY,SCREENI NG (WRVU 3.26) Scheduled Procedures Name Priority Associated Diagnoses Date/Ti me COLONOSCOPY,SCREENING (WRVU 3.26) polyps 08/09/2024 10:30 AM EDT documented as of this encounter Procedures Procedure Name Priority Date/Time Associated Diagnosis Comments CT CHEST WO CONTRAST (GENERIC) Routine 03/08/2019 12:04 PM EDT Lung nodule documented in this encounter Results * CT Chest wo Contrast (Generic) (03/08/2019 12:04 PM EDT) Anatomical Region Laterality Modality Chest Computed Tomogra phy Impressions 03/08/2019 1:13 PM EDT Single indeterminate 4 mm left lung nodule, unchanged from 08/09/2018 CT neck. Per 2017 updated Fleischner Society guidelines, no routine follow-up needed for a less than 6 mm nodule at the patient is low risk. If the patient is in a high risk category, such as smoking history or history of prior neoplasm, consider repeat noncontrast CT in 12 months. Thank you for letting us participate in the care of this patient. For questions regarding this report, please contact the number below. ? Narrative 03/08/2019 1:13 PM EDT EXAMINATION: CT CHEST WO CONTRAST (GENERIC) CLINICAL HISTORY: need ct follow up in 6mon to assess a 4mm lt lower lobe nodule NO AUTH NEEDED; ORDER IN SCAN DOC TECHNIQUE: 2.5mm thick axial contiguous sections were obtained through the chest via helical acquisition without intravenous contrast administration, using low radiation dose technique. Thin-section reconstructions as well as coronal and sagittal reformatted images were generated. COMPARISON: CT neck 08/19/[address] chest 11/12/2010.. FINDINGS: Pulmonary parenchyma: 4 mm nodular opacity seen along the plane of the left major fissure on the CT neck series 6 image 606, unchanged in series 5 image 156, new from 2010. No other nodules identified. Mild dependent atelectasis dorsally in both lungs. Airways: No endobronchial opacities Pleura: No pleural effusion. Lymph nodes:Within limits of noncontrast technique, no thoracic lymphadenopathy seen. Heart, pericardium, and great vessels: No pericardial effusion finding. Left circumflex coronary stent appears present. Question a small diagonal branch stent. Other mediastinal structures: No significant findings. Lower neck: No significant findings. Upper abdomen: No significant findings. Body wall soft tissues: Implantable loop recorder in the subcutaneous soft tissues of the left anterior chest wall, new from 2010. Skeletal structures: No significant findings. Procedure Note Sidra Cabrera MD - 03/08/2019 EXAMINATION: CT CHEST WO CONTRAST (GENERIC) CLINICAL HISTORY: need ct follow up in 6mon to assess a 4mm lt lower lobenodule NO AUTH NEEDED; ORDER IN SCAN DOC TECHNIQUE: 2.5mm thick axial contiguous sections were obtained through thechest via helical acquisition without intravenous contrast administration, usinglow radiation dose technique. Thin-section reconstructions as well as coronaland sagittal reformatted images were generated. COMPARISON: CT neck 08/19/[address] chest 11/12/2010.. FINDINGS: Pulmonary parenchyma: 4 mm nodular opacity seen along the plane of theleft major fissure on the CT neck series 6 image 606, unchanged in series 5image 156, new from 2010. No other nodules identified. Mild dependentatelectasis dorsally in both lungs. Airways: No endobronchial opacities Pleura: No pleural effusion. Lymph nodes:Within limits of noncontrast technique, no thoraciclymphadenopathy seen. Heart, pericardium, and great vessels: No pericardial effusion finding.Left circumflex coronary stent appears present. Question a small diagonalbranch stent. Other mediastinal structures: No significant findings. Lower neck: No significant findings. Upper abdomen: No significant findings. Body wall soft tissues: Implantable loop recorder in the subcutaneoussoft tissues of the left anterior chest wall, new from 2010. Skeletal structures: No significant findings. IMPRESSION Single indeterminate 4 mm left lung nodule, unchanged from 08/09/2018 CTneck. Per 2017 updated Fleischner Society guidelines, no routine follow-upneeded for a less than 6 mm nodule at the patient is low risk. If the patient is in ahigh risk category, such as smoking history or history of prior neoplasm,consider repeat noncontrast CT in 12 months. Thank you for letting us participate in the care of this patient. Forquestions regarding this report, please contact the number below. Vel Santos MD IMG CT ORDERABLES documented in this encounter Visit Diagnoses Diagnosis Lung nodule Solitary pulmonary nodule documented in this encounter Care Teams Home Health Nurse Relationship Specialty Start Date End Date Vel Santos MD [address] [place] [phone] PCP - General 09/24/10 06/04/23 documented as of this encounter
--- OUTSIDE RECORDS SUMMARY | 2024-07-19 22:17 | XMS_ITS | Encounter Summary ---
Author Organization [facility] [place] [address] Care Team Providers Care Client Server Developer Name Role Phone Vel Santos MD Primary Care Provider [phone] Reason for Visit * Reason Onset Date Comments Request For Record 03/02/2019 Encounter Details Date Type Department Care Team (Late st Contact Info) Description 03/02/2019 [place] [address] Kevin Benavidez MD [facility] [place] [address] Request For Record Social History Tobacco Use Types Packs/Day Years [...] encounter Miscellaneous Notes * Telephone Encounter - Nesha Saez RN - 03/02/2019 2:34 PM EDT Calling to state that they believe that Roland has Parkinson's. It is difficult to travel here so hehas an appt locally with Dr Aguirre. Asked if we could send records to her from his visits and testing with Dr Benavidez several years ago. Faxed those notes and EMG's however given number for film library and medical release for other notes and imaging. Thankful for help. documented in this encounter Plan of Treatment Upcoming Encounters Date Type Department Care Team (Late st Contact Info) Description 08/09/2024 10:30 AM EDT Hospital Encounter [place] [address] Navi Montero MD [facility] [place] [address] 08/09/2024 10:30 AM EDT - 08/09/2024 11:15 AM EDT Surgery [place] [address] Navi Montero MD [facility] [place] [address] COLONOSCOPY,SCREENI NG (WRVU 3.26) Scheduled Procedures Name Priority Associated Diagnoses Date/Ti me COLONOSCOPY,SCREENING (WRVU 3.26) polyps 08/09/2024 10:30 AM EDT documented as of this encounter Visit Diagnoses Not on filedocumented in this encounter Care Teams Client Server Developer Relationship Specialty Start Date End Date Vel Santos MD [address] [place] [phone] PCP - General 09/24/10 06/04/23 documented as of this encounter
--- OUTSIDE RECORDS SUMMARY | 2024-07-19 22:17 | XMS_ITS | Encounter Summary ---
Author Organization [facility] [place] [address] Care Team Providers Care Immigration Judge Name Role Phone Vel Santos MD Primary Care Provider [phone] Encounter Details Date Type Department Care Team (Latest Contact Info) Description 09/30/2018 10:00 AM EST [place] [address] Niki Zamorano MD [facility] [place] [address] Cerebrovascular accident (CVA), unspecified mechanism Social History Tobacco Use Types Packs/Day Years [...] Sign Reading Time Taken Comments Blood Pressure 125/71 09/30/2018 10:03 AM EST Pulse 57 09/30/2018 10:03 AM EST Temperature - - Respiratory Rate - - Oxygen Saturation - - Inhaled Oxygen Concentration - - Weight 128.3 kg (282 lb 12.8 oz) 2017 10:03 AM EST Height 180.3 cm (5' 11) 09/30/2018 10: 03 AM EST reported Body Mass Index 39.44 09/30/2018 10:03 AM EST documented in this encounter Progress Notes * Niki Zamorano MD - 09/30/2018 10:00 AM EST Roland Vega is a 68 y.o. right handed male with past medical history significant for hypertension, hyperlipidemia, history of CIDP, unclear history of atrial fibrillation (not on anticoagulation), history of an STEMI (2010 and 2016 status post drug-eluting stents x3-on Plavix, peripheral neuropathy, asthma, prostate cancer (status post radical prostatectomy in 2004) who presents on 08/09/2018 with TIA-like symptoms of right facial numbness, resolved on admission. NIHSS 0. ?? Found with acute L frontal infarct this course, which corresponds to presenting sx. Etiology of stroke is concerning for cardioembolism given nature/location. He was monitored closely on tele withoutevidence of afib. Given lack of evidnece for cardioembolic source he was continued on DAPT given concurrent intracranial disease and cardiac history. He continues to have spells of dizziness/light headedness, SOB and near syncope. He is unsure if these are heart or stroke related. He is very anxious and frustrated as he seems not to improve despite being complaint with medications. He is under signficant stress and wonder if this can be contrinuting to his symptoms. L MCA embolic stroke. - Suspecting cardioembolis. - Ziopatch negative for Afib. Recommend prolonged monitoring with a ILR. - Continue current antiplat and statin fro stroke prevention. - Stress management and excersice highly recommended. Follow up in 6 months Modifiable Risk Factors in Secondary Stroke Prevention Risk Factor Treatment Goals Hypertension Patients with hypertension: <140/90 mm Hg; 10-mm Hg reduction in systolic BP and 5-mm Hg reduction in diastolic BP from baseline Patients with diabetes mellitus or renal disease: <130/80 mm Hg; 10-mm Hg reduction in systolic BP and 5-mm Hg reduction in diastolic BP from baseline Patients without hypertension: <120/80 mm Hg; 10-mm Hg reduction in systolic BP and 5-mm Hg reduction in diastolic BP from baseline Dyslipidemia Atherosclerotic stroke or TIA: low-density lipoprotein (LDL) cholesterol level <70 mg/dl or 50% reduction in LDL cholesterol level from baseline Nonatherosclerotic stroke or TIA: per National Cholesterol Education Program (NCEP) Adult TreatmentPanel III (ATP-III) goals Diabetes Mellitus HgA1c level <7% Cigarette Smoking Complete cessation Alcohol Consumption Men: two or fewer drinks per day Non woman: one or fewer drinks per day Physical Activity At least 30 minutes of moderate intensity physical exercise 1- 3 times per week Diet Low-fat, low-sodium, and Mediterranean or Dietary Approaches to Stop Hypertension diets (diabetic diet when applicable) Obesity Goal body mass index of 18.5-25 kg/m2 documented in this encounter Plan of Treatment Upcoming Encounters Date Type Department Care Team (Late st Contact Info) Description 08/09/2024 10:30 AM EDT Hospital Encounter [place] [address] Navi Montero MD [facility] [place] [address] 08/09/2024 10:30 AM EDT - 08/09/2024 11:15 AM EDT [place] [address] Navi Montero MD [facility] [place] [address] COLONOSCOPY,SCREENI NG (WRVU 3.26) Scheduled Procedures Name Priority Associated Diagnoses Date/Ti me COLONOSCOPY,SCREENING (WRVU 3.26) polyps 08/09/2024 10:30 AM EDT documented as of this encounter Visit Diagnoses Diagnosis Cerebrovascular accident (CVA), unspecified mechanism documented in this encounter Care Teams Immigration Judge Relationship Specialty Start Date End Date Vel Santos MD [address] [place] [phone] PCP - General 09/24/10 06/04/23 documented as of this encounter
--- OUTSIDE RECORDS SUMMARY | 2024-07-19 22:17 | XMS_ITS | Encounter Summary ---
Author Organization [facility] Address [facility] [place] [address] Care Team Providers Care Ferry Boat Captain Name Role Phone Vel Santos MD Primary Care Provider [phone] Encounter Details Date Type Department Care Team (Late st Contact Info) Description 11/08/2018 Orders Only Cardiology at [address] [phone] Social History Tobacco Use Types Packs/Day Years [...] 10:30 AM EDT Hospital En[place] [phone] Navi Montero MD [facility] [place] [address] 08/09/2024 10:30 AM EDT - 08/09/2024 11:15 AM EDT [place] [phone] Navi Montero MD [facility] [place] [place] [address] COLONOSCOPY,SCREENI NG (WRVU 3.26) Scheduled Procedures Name Priority Associated Diagnoses Date/Ti me COLONOSCOPY,SCREENING (WRVU 3.26) polyps 08/09/2024 10:30 AM EDT documented as of this encounter Procedures Procedure Name Priority Date/Time Associated Diagnosis Comments CARDIAC DEVICE CHECK - REMOTE Routine 11/08/2018 12:02 PM EST documented in this encounter Results * Cardiac Device Check - Remote (11/08/2018 12:02 PM EST) Date Time Interrogation Session IDCO Implantable Pulse Generator Cloth Stretcher Toolwitronic IDCO Implantable Pulse Generator Model [id number] IDCO Implantable Pulse Generator Serial Number [id number] IDCO Type Interrogation Session Remote IDCO Implantable Pulse Generator Type Implantable Diagnostic Monitor IDCO Implantable Pulse Generator Implant Date IDCO Zone Setting Detection Interval 2,000 ms IDCO Zone Setting Detection Interval 3,000 ms IDCO Zone Setting Type Category AT/AF IDCO Zone Setting Type Category VF IDCO Zone Setting Type Category VT IDCO Zone Setting Detection Interval 370 ms IDCO Battery Status OK IDCO Atrial Tachy Statistic Date Time Start IDCO Atrial Tachy Statistic Date Time End IDCO Atrial Tachy Statistic AT/AF [place] Percent 0 % IDCO Episode Statistic Recent Count 0 IDCO Episode Statistic Recent Count 0 IDCO Episode Statistic Recent Count 0 IDCO Episode Statistic Recent Count 0 IDCO Episode Statistic Recent Count 0 IDCO Episode Statistic Type Category Patient Activated [...] IDCO Episode Statistic Recent Date Time Start [id number] IDCO Episode Statistic Recent Date Time End IDCO Episode Statistic Total Count 0 IDCO Episode Statistic Total Count 4 IDCO Episode Statistic Total Count 0 IDCO Episode Statistic Total Count 0 IDCO Episode Statistic Total Count 0 IDCO Episode Statistic Type Category Patient Activated IDCO Episode Statistic Total Count 0 IDCO Episode Statistic Type Category AT/AF IDCO Episode Statistic Total Date Time Start IDCO Episode Statistic Total Date Time End IDCO Episode Statistic Total Date Time Start IDCO Episode Statistic Total Date Time End IDCO Episode Statistic Total Date Time Start IDCO Episode Statistic Total Date Time End IDCO Episode Statistic Total Date Time Start IDCO Episode Statistic Total Date Time End IDCO Episode Statistic Total Date Time Start IDCO Episode Statistic Total Date Time End IDCO Episode Statistic Total Date Time Start IDCO Episode Statistic Total Date Time End IDCO Anatomical Region Laterality Modality Other 11/08/2018 12:0 2 PM EST Physician Cardiology IMPLANTABLE CARD IAC DEVICE documented in this encounter Visit Diagnoses Not on filedocumented in this encounter Care Teams Ferry Boat Captain Relationship Specialty Start Date End Date Vel Santos MD [address] [place] [phone] PCP - General 09/24/10 06/04/23 documented as of this encounter
--- OUTSIDE RECORDS SUMMARY | 2024-07-19 22:17 | XMS_ITS | Encounter Summary ---
Author Organization [facility] Address [facility] [place] [address] Care Team Providers Care Logistics System Engineer Name Role Phone Vel Santos MD Primary Care Provider [phone] Encounter Details Date Type Department Care Team (Late st Contact Info) Description 06/02/2019 Orders Only Cardiology at [address] [phone] Social History Tobacco Use Types Packs/Day Years [...] 10:30 AM EDT Hospital Encounter [place] [phone] Navi Montero MD [facility] [place] [address] 08/09/2024 10:30 AM EDT - 08/09/2024 11:15 AM EDT Surgery [place] [phone] Navi Montero MD [facility] [place] [address] COLONOSCOPY,SCREENI NG (WRVU 3.26) Scheduled Procedures Name Priority Associated Diagnoses Date/Ti me COLONOSCOPY,SCREENING (WRVU 3.26) polyps 08/09/2024 10:30 AM EDT documented as of this encounter Procedures Procedure Name Priority Date/Time Associated Diagnosis Comments CARDIAC DEVICE CHECK - REMOTE Routine 06/02/2019 6:42 PM EDT documented in this encounter Results * Cardiac Device Check - Remote (06/02/2019 6:42 PM EDT) Date Time Interrogation Session [id number] IDCO Implantable Pulse Generator Dress Cutter Medtronic IDCO Implantable Pulse Generator Model LNQ11 IDCO Implantable Pulse Generator Serial Number [id number] IDCO Type Interrogation Session Remote IDCO Implantable Pulse Generator Type Implantable Diagnostic Monitor IDCO Implantable Pulse Generator Implant Date IDCO Anatomical Region Laterality Modality Other 06/02/2019 6:42 PM EDT Physician Cardiology IMPLANTABLE CARD IAC DEVICE documented in this encounter Visit Diagnoses Not on filedocumented in this encounter Care Teams Logistics System Engineer Relationship Specialty Start Date End Date Vel Santos MD [address] [place] [phone] PCP - General 09/24/10 06/04/23 documented as of this encounter
--- OUTSIDE RECORDS SUMMARY | 2024-07-19 22:17 | XMS_ITS | Encounter Summary ---
Author Organization [facility] Address [facility] [place] [address] Care Team Providers Care Egg Pasteurizer Name Role Phone Vel Santos MD Primary Care Provider [phone] Encounter Details Date Type Department Care Team (Late st Contact Info) Description 11/08/2018 [place] [phone] Joao Arriaga Social History Tobacco Use Types Packs/Day Years [...] 10:30 AM EDT Hospital En[place] [address] Navi Montero MD [facility] [place] [address] 08/09/2024 10:30 AM EDT - 08/09/2024 11:15 AM EDT [place] [phone] Navi Montero MD [facility] [place] [address] COLONOSCOPY,SCREENI NG (WRVU 3.26) Scheduled Procedures Name Priority Associated Diagnoses Date/Ti me COLONOSCOPY,SCREENING (WRVU 3.26) polyps 08/09/2024 10:30 AM EDT documented as of this encounter Visit Diagnoses Not on filedocumented in this encounter Care Teams Egg Pasteurizer Relationship Specialty Start Date End Date Vel Santos MD [address] [place] [phone] PCP - General 09/24/10 06/04/23 documented as of this encounter
--- OUTSIDE RECORDS SUMMARY | 2024-07-19 22:17 | XMS_ITS | Encounter Summary ---
Author Organization [facility] [place] [address] Care Team Providers Care Shipwright Helper Name Role Phone Vel Santos MD Primary Care Provider [phone] Encounter Details Date Type Department Care Team (Latest Contact Info) Description 10/07/2018 3:00 PM EST Office Visit Cardiology at [address] [phone] Adrian Rubio MD [facility] [place] [address] ASCVD (arteriosclerotic cardiovascular disease); Hyperlipidemia, unspecified hyperlipidemia type; S/P angioplasty with stent; Near syncope; Acute ischemic left MCA stroke; History of syncope Social History Tobacco Use Types Packs/Day Years [...] Sign Reading Time Taken Comments Blood Pressure 131/83 10/07/2018 3:03 PM EST Pulse 62 10/07/2018 3:03 PM EST Temperature - - Respiratory Rate - - Oxygen Saturation 97% 10/07/2018 3:03 PM EST Inhaled Oxygen Concentration - - Weight 127.5 kg (281 lb) 10/07/2018 3:03 PM EST Height 180.3 cm (5' 11) 10/07/2018 3:03 PM EST Body Mass Index 39.19 10/07/2018 3:03 PM EST documented in this encounter Progress Notes * Adrian Rubio MD - 10/07/2018 3:00 PM EST Images from the original note were not included. Formerly [facility] [place] [address] CARDIOVASCULAR MEDICINE OUTPATIENT CONSULTATION [facility] Roland Vega Primary Care Provider: Vel Santos MD REFERRING PROVIDER: Vel Santos CHIEF COMPLAINT: dizziness PROBLEM LIST: 1. ASCVD A. Non-STEMI 2010, status post JANET to OM1, RPDA, D1 2. 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 History of prostate cancer, status post radical prostatectomy 2004 4. History of left MCA infarct, 2018 5. History of paroxysmal atrial fibrillation by report, none on recent Zio monitor 6. Hypertension 7. GERD 8. Overweight 9. History of asthma 10. Borderline diabetes mellitus HISTORY OF PRESENT ILLNESS: This 68-year-old gentleman is seen in conjunction with his partner to discuss options and management for multiple symptoms including dizziness and palpitation. The patient's medical history is notable for palpitations and left arm discomfort which prompted anoutpatient evaluation by his local supervisor parking lot. He was referred to [facility] for possible catheterization, but prior to that date he developed right scalp and facial numbness as well as tongue paralysis and presented to the [facility] ER where he was found to have an acute left MCA territory stroke. Workup that time was essentially unrevealing with no high-grade carotid disease and noevidence of significant arrhythmia. He was given a Zio monitor to wear to look for any signs of occult atrial fibrillation. He does report ongoing intermittent palpitation although chest discomfort has been less of a symptom. Echo showed preserved LV function and no obvious source of embolus. His review of systems is positive for difficulty sleeping, dizziness and lightheadedness which is multifactorial, generalized weakness, intermittent palpitations, some intermittent leg swelling, and occasional chest discomfort. He does describe shortness of breath with moderate activity. He now presents to continue the evaluation. PAST MEDICAL HISTORY (Problem List) Patient Active Problem List Diagnosis ??? Near syncope ??? Acute ischemic left MCA stroke History of left MCA infarct, 2018 ??? S/P angioplasty with stent Non-STEMI 2010, [...] asc aortic dilation ??? CIS - CIDP SOCIAL HISTORY: Reviewed and updated as appropriate in the medical record. FAMILY HISTORY: Reviewed and updated as appropriate in the medical record. Review of Systems: As noted in the the HPI; all others negative MEDICATIONS: Current Outpatient Medications Medication Sig Dispense Refill ??? cholecalciferol, Vitamin D3, 2,000 unit Capsule Take by mouth. ??? marijuana Oil - medicinal use LOTION THAT IS RUBBED ON HIS FEET... AND CANDY THAT HE EATS.. HARDLY EVER USES IT ??? ONETOUCH ULTRA BLUE TEST STRIP Strip [...] (BUPROBAN) 150 mg Tablet Sustained Release Take 450 mg by mouth daily. ??? coQ10, ubiquinol, 100 mg Capsule Take 1 capsule by mouth 2 times daily. ??? testosterone enanthate (DELATESTRYL) 200 mg/mL Oil Inject into the muscle every 7 days. Patientinjects 1.25 cc weekly ??? ketoconazole (NIZORAL) 2 % Shampoo shampoo, rinse after 5-10 min, daily for flares or weekly for prevention. 120 mL 3 ??? nitroGLYcerin (NITROSTAT) 0.4 mg SL tablet 0.4 MG = 1 Tablet(s), Sublingual, prn ??? atorvastatin (LIPITOR) 40 mg tablet 40 MG = 1 Tablet(s), PO, Once daily (Patient taking differently: 60 mg daily) ??? metoprolol succinate (TOPROL-XL) 100 mg XL tablet 100 MG = 1 Tablet(s), PO, Once daily (Patienttaking differently: 25 mg daily) ALLERGIES: Reviewed and updated as appropriate in the medical record. PHYSICAL EXAMINATION: BP 131/83 Pulse 62 Ht 180.3 cm (5' 11) Wt 127.5 kg (281 lb) SpO2 97% BMI 39.19 kg/m?? Exam Details: Pleasant gentleman who is in no acute distress. Neck is supple with JVP estimated at 6-7 cm. Lung sherman are clear to auscultation bilaterally. Cardiac exam reveals a regular rate without audible murmur or gallop. Abdomen is soft, nontender, with no appreciable organomegaly and normalactive bowel sounds. No abdominal bruits are heard. Lower extremities show no significant edema. The re are 2+ dorsalis pedis and posterior tibial pulses. Femoral pulses and radial pulses are 2+. There are normal Vinayak's test bilaterally. Neurologically, his exam is nonfocal Psych: mood and affect normal Skin: intact with no breakdown Neuro: grossly non-focal Heme/Lymph: no lymphadenopthy ECHO STRESS SUMMARY 08/2018: ?? 1. Exercise echo is indeterminate for [...] 6. Other details as noted below. ?? Cath 08/2018: Findings: LM - Mild luminal irregularity LAD - Moderate proximal ectasia; prior stent in the mid-D1 is widely patent; D1 has an ostial 60% stenosis; mild diffuse disease in the yqi-jk-gyytly vessel LCX - Mild luminal irregularities; prior stent in high OM1 is widely patent RCA - Large caliber vessel; mid-vessel is ectactic; prior stent in the rPDA is widely patent LVEDP 11 mmHg; no significant ycoc-ds-kbop gradient across the aortic valve. ZIO Summary Data 09/2018: ?? Predominant rhythm - sinus rhythm with 1st deg AV block ?? Minimum sinus rate 43 bpm Maximum sinus rate 90 bpm ?? Average heart rate 57 bpm ?? Very little heart rate variability is observed. ?? Atrial fibrillation none ?? Ectopic beats ?? <1% atrial premature beats (APC? s) <1% ventricular premature beats (VPC's) ?? 3 runs of SVT were detected with the longest being 18 beats at 124 bpm. These are nonsustained and are most likely brief runs of atrial tachycardia or atrial premature beats. ?? One 12 beat run of nonsustained tachycardia was observed with avg heart rate of 116 bpm. This was labeled as nonsustained ventricular tachycardia but review of the strip suggests that this is supraventricular in origin. NSVT cannot be entirely excluded. ?? Triggered and Patient Diary Events ?? There were 19 triggered and 0 patient diary events: Triggered events heart rate range is 47 to 69 bpm. Most episodes occur during sinus rhythm. 5 occurin the setting of infrequent atrial or ventricular ectopy. 1 occurred during possible NSVT vs. Nonsustained SVT. ? Conclusion(s): 1. Predominant rhythm is sinus with very little heart rate variability and the sinus rate not exceeding 90 bpm. 2. No atrial fibrillation is detected. 3. Symptoms occurred primarily during normal sinus rhythm or sinus bradycardia without significant arrhythmia. Possible nonsustained ventricular tachycardia was detected, though this most likely represents a supraventricular nonsustained tachycardia. ASSESSMENT: 1. Known ASCVD with no recent ACS and stable coronary anatomy by catheterization 2. Preserved LV function and no inducible ischemia by recent stress testing (sub-max ) 3. No significant arrhythmias by Zio monitoring 4. Probable orthostasis based on clinical history 5. Overweight RECOMMENDATIONS: Proceed with ILR to look for afib- will schedule with EP Good medical therapy currently. Follow up in 6 months. documented in this encounter Plan of Treatment Upcoming Encounters Date Type Department Care Team (Late st Contact Info) Description 08/09/2024 10:30 AM EDT Hospital Encounter [place] [phone] Navi Montero MD [facility] [place] [address] 08/09/2024 10:30 AM EDT - 08/09/2024 11:15 AM EDT Surgery [place] [phone] Navi Montero MD [facility] [place] [address] COLONOSCOPY,SCREENI NG (WRVU 3.26) Scheduled Procedures Name Priority Associated Diagnoses Date/Ti me COLONOSCOPY,SCREENING (WRVU 3.26) polyps 08/09/2024 10:30 AM EDT documented as of this encounter Procedures Procedure Name Priority Date/Time Associated Diagnosis Comments ELECTROPHYSIOLOGY PROCEDURE Routine 11/04/2018 12:44 PM EST Near syncope Acute ischemic left MCA stroke documented in this encounter Results * ELECTROPHYSIOLOGY PROCEDURE (11/04/2018 12:44 PM EST) Anatomical Region Laterality Modality Other Narrative 11/05/2018 7:20 AM EST LOOP RECORDER IMPLANT PROCEDURE NOTE Roller Skater: Owen Delgado MD, PhD Fellow: Kris León MD 2nd [employer] Mechanic Helper: LAZARO Chase Patient history: 68yr old male with history of syncope, coronary artery disease and stroke who is referred for loop recorder implant. He has been complaining of intermittent dizziness and lightheadedness for the past several months. He had a Zio patch which did not show any arrhythmia, pauses but showed limited HR variability with Max HR 90bpm. He also had a stress test with Max HR of 84bpm on metoprolol. Given uncertainty with regards to his symptoms, he was referred for ILR implant for jail monitoring to help diagnose electrical conduction abnormalities which maybe associated with his symptoms. Procedure description: The patient was brought to the cardiac electrophysiology laboratory in a post-absorptive, fasting state. The patient had received 3 scrubs to the implant area. ??Informed consent was obtained. A peripheral IV was in place. Continuous electrocardiographic, blood pressure, oxygen saturation and CO2 monitoring was initiated. Self-adhesive cardioversion patches were positioned on the chest. The patient was then prepped and draped in the usual sterile fashion. IV antibiotics were administered. The implant area was infiltrated with a 50/50 mixture of lidocaine (2%) and bupivicaine (0.5%). A stab incision was made lateral to the left edge of the sternum at the 4th intercostal space. The implantation tool was inserted at a 45 degree angle and the ILR was implanted. Hemostasis was maintained with manual compression. The ILR was interrogated and adequate sensing characteristics were obtained. The skin was closed ??With a 2-0 vicryl and Dermabond. Mepilex dressing was applied to the skin. The patient was hemodynamically stable, tolerated the procedure well and was transferred in stable condition. Dr. Mayorga present for the participated in the entire procedure. Generator data: Admitted Attorneys Model No. Serial No. Generator [employer] [id number] Sense data: Sensed wave (mV) Ventricle 0.21-0.24 Final programming: Mode Lower rate Upper rate Pause Detection 30 bpm @ 4 beats 167 bpm @ 16 beats 3 seconds Medication summary: ?? IV Fentanyl 50mcg ?? SC Lidocaine/Epinephrine 20ml Conclusions: 1. Successful loop recorder implant on the left chest. Procedures performed: Loop recorder implantation Kris León MD Research/Program Director Cardiac Electrophysiology Attending Addendum/Attestation I was present for and participated in all purcell portions of this procedure. Note above reviewed and agreed with. Owen Delgado MD, PhD, [facility] Cardiac Electrophysiology Adrian Rubio MD EP PROCEDURE ORDERAB LES documented in this encounter Visit Diagnoses Diagnosis ASCVD (arteriosclerotic cardiovascular disease) Unspecified cardiovascular disease Hyperlipidemia, unspecified hyperlipidemia type S/P angioplasty with stent Postsurgical percutaneous transluminal coronary angioplasty status Near syncope Syncope and collapse Acute ischemic left MCA stroke Unspecified cerebral artery occlusion with cerebral infarction History of syncope Personal history of other specified diseases Near syncope Syncope and collapse Acute ischemic left MCA stroke Unspecified cerebral artery occlusion with cerebral infarction documented in this encounter Care Teams Shipwright Helper Relationship Specialty Start Date End Date Vel Santos MD [address] [place] [phone] PCP - General 09/24/10 06/04/23 documented as of this encounter
--- OUTSIDE RECORDS SUMMARY | 2024-07-19 22:17 | XMS_ITS | Encounter Summary ---
[place] [address] Care Team Providers Care Conservation Engineer Name Role Phone Vel Santos MD Primary Care Provider [phone] Reason for Visit * Auth/Cert Specialty Diagnoses / Procedures Referred By Yi cummings Referred To Contact Diagnoses Unstable angina Unstable angina [I20.0] Procedures 1 Referral ID Status Reason Start Date Expiration Date Visits Re quested Visits Authorized [id number] 1 1 Encounter Details Date Type Department Care Team (Latest Contact Info) Description 09/01/2018 9:44 AM EDT - 09/01/2018 5:15 PM EDT Hospital Encounter [place] [address] Ernst Puentes MD [facility] [place] [address] Unstable angina Discharge Disposition: Home Social History Tobacco Use [...] Reading Time Taken Comments Blood Pressure 128/80 09/01/2018 4:46 PM EDT Pulse 52 09/01/2018 4:24 PM EDT Temperature 36.4 ??C (97.5 ??F) 09/01/2018 12:22 PM E DT Respiratory Rate 18 09/01/2018 4:46 PM EDT Oxygen Saturation 95% 09/01/2018 4:46 PM EDT Inhaled Oxygen Concentration - - Weight 125.6 kg (277 lb) 09/01/2018 12:22 PM EDT Height 180.3 cm (5' 11) 09/01/2018 12:22 PM EDT Body Mass Index 38.63 09/01/2018 12:22 PM EDT documented in this encounter Discharge Instructions * Discharge Instructions* Wilfred Elias RN - 09/01/2018 4:53 PM EDT Radial Access for Heart Cath Activity If you are discharged the same day as your procedure, do not drive yourself home. Arrange to have another person drive. You may walk around when you get home, but keep your activity at a minimum until the morning. Try to avoid bending your wrist for the first 12-24 hours after the procedure to allow the artery to fully heal. Do not participate in active sports for 48 hours. Do not lift anything greater than 5 lbs. You may engage in sexual activity after 48 hours. Catheter Insertion Area Care Take the dressing off of the catheter insertion site the morning following the procedure. Leave thesite open to air. If the site is oozing you may cover it with a band aid. You may take a shower if you wish. Look for signs of infection over the next several days. It is uncommon to have any visible blood at the site, any obvious bleeding is abnormal. A bruise around the wrist or small lump under the skin is normal: they generally disappear in 3-5 days. Expect some mild tenderness over the area where the catheter was inserted. You will notice this after the local anesthetic (numbing medicine) wears off. This should improve during the 24-48 hours after the procedure. You may use acetaminophen (tylenol) if needed. Contact your doctor if the discomfort worsens. Problems to Watch for If there is bright red blood flowing from the catheter insertion area: *stop what you are doing *hold pressure steadily on the area for 15 minutes *call for help *if the bleeding does not stop in 15 minutes call 911 for an ambulance. If there is swelling with black and blue color at the catheter insertion site, there may be bleeding inside. Contact the doctor if there is any increase in size. Look at the insertion site for the first few days at home. Signs of infection are: *redness *swelling *yellow, white, green or brown foul smelling drainage. *increased soreness If you think there is an infection, take your temperature. Then call your doctor. The limb on the side where you had your catheterization should look and feel normal in color, sensation, and temperature. If your hand or fingers become cool, pale, blue or change color contact your doctor. If you are having numbness or tingling in your fingers or hand contact your doctor. If you feel faint or dizzy, lie down with your feet elevated. Have someone call the doctor. If you are alert, drink fluids. How to Deal with Chest Pain If you had only the cardiac catheterization, treat any angina or chest discomfort as instructed. Stop what you are doing, and sit or lie down. If prescribed, take nitroglycerin under your tongue. If the angina isn't relieved, take another nitroglycerin in 5 minutes. After another 5 minutes, a third nitroglycerin may be taken. If the angina isn't improved you should call for an ambulance to bring you to the nearest hospital emergency room. If your angina is more frequent or severe than before, contact your doctor. We usually would not expect you to have angina after an angioplasty. If you do get angina, treat itas you did before, but also contact your doctor. Return to Work The doctor will usually have told you when to return to work. If you do not perform heavy physical labor, most people can return to work in a few days. Diet Follow your previous diet unless otherwise instructed. Cardiac Risk Factor If you have coronary artery disease, it is important that you help control it by reducing your cardiac risk factors. If you smoke, we urge you to stop now. If you think this is going to be a problem,let us know so that we may help you. We have dieticians who can help you learn about a low fat, lowcholesterol diet. Cardiac rehabilitation programs can help you set up a regular exercise program. Work with your doctor if you have high blood pressure or sugar diabetes to keep these under control. Medications Take your usual medications medication changes If you are taking medications prescribed by your doctor, do not take any zerw-xtg-zkdgjyh medicinesor herbal preparations without first discussing this with your doctor or pharmacist. There is the possibility of side effects and interactions when these are combined. Follow Up Care Who to call with questions or problems If there are any questions or problems that you think might be related to your cardiac cath or angioplasty, contact the thread clipper communications media professor by calling [facility] at . * Patient Instructions* Teresa Sims MD - 09/01/2018 2:29 PM EDT Cardiology Instructions Call your doctor if: Chest pain, dyspnea, pain or swelling in legs occurs. If you have non-emergent questions between now and the time of your follow up appointments: -During 8am-5pm Thursday through Thursday call [phone] to speak with a nurse in the cardiology clinic -All other times call [phone] and ask to speak to the christian science practitioner communications media professor. MEDICATIONS -continue your medications as before Return to work/ usual actvities: 1 week, as tolerated. Do not lift anything greater than 1 gallon for milk for 1 week. Okay to shower. Driving: No driving for 24 hours after catheterization. Follow up Appointments: Primary care provider: Cardiology: Vel Santos MD [phone] Follow up as planned or as needed. Dr. Shane. Call for a followup appointment in 4-6 weeks. documented in this encounter Medications at Time [...] for prevention. 120 mL 3 08/10/2015 08/12/2023 [place]-3 Fatty Acids-Vitamin E (OMEGA-3 FISH OIL) 1,000-5 mg-unit Cap 11/13/2010 09/09/20 18 atorvastatin (LIPITOR) 40 mg tablet 40 MG = 1 Tablet(s), PO, Once daily 11/13/2010 08/12/2023 metoprolol succinate (TOPROL-XL) 100 mg XL tablet Take by mouth. 11/13/2010 08/12/2023 documented as of this encounter Progress Notes * Teresa Sims MD - 09/01/2018 12:26 PM EDT Images from the original note were not included. Pre Cardiac Catheterization Note 68 y.o. male presents for left heart catheterization. He had been having unusal symptoms for several months that he now relates to the stroke he had about 3 weeks ago. Among these symptoms is chest discomfort and left arm discomfort. The chest discomfort most frequently happens after eating meals. He also gets left arm discomfort at times. He had this discomfort on his way here. His prior symptoms of NJ/angina were back pain and fatigue; this is different. He had a stress test but was not able to reach target heart rate. He is known to have CAD and has prior stents to OM1, ostial RPDA, D1 sophie prior RCA stent. He notes he is pre-diabetic. He has hyperlipidemia. He is former smoker, quit about 8 years ago. He does not have family history of CAD. He did not take his aspirin and clopidogrelthis morning. He will take his clopidogrel now. His residual symptoms from his stroke include memory and cognition. No planned upcoming surgeries. No recent or ongoing bleeding events. BP 124/81 (BP Location (NBP): Right arm) Pulse 52 Temp 36.4 ??C (97.5 ??F) (Temporal) Resp 16 Ht 180.3 cm (5' 11) Wt 125.6 kg (277 lb) SpO2 97% BMI 38.63 kg/m?? Gen: Pleasant male in no apparent distress, able to lay flat Cor: Regular rate and rhythm; S1/S2 of normal character and amplitude, no murmurs, rubs or gallops.JVP are not elevated Pulm: Clear and equal to auscultation bilaterally Ext: Bilateral Vinayak's Test normal (both the radial and ulnar arteries alone provide ample circulation to the hand arcade). Femoral arteries are with adequate upstroke and without overlying evidence of infection. DP/PT ++ Neuro: Awake, alert, answers questions appropriately. No facial droop. ASA: 2: Patient with mild systemic disease Mallampati: III: only the base of the uvula can be seen Last 3 wbc, hgb, hct plt Recent Labs 08/22/18212908/10/1832908/09/182134 WBC 6.0 4.1 5.6 HGB 14.6 12.9* 13.3* HCT 44.4 39.3* 40.4* PLATELET 208 148 161 Last 3 Lytes Recent Labs 08/22/18212908/10/180 08/09/182134 NA 140 140 141 K 4.3 3.9 3.9 CL 101 102 103 CO2 28 26 25 BUN 16 16 17 CREATININE 1.06 0.93 0.97 Previous Catheterization: 04/20/2017 * Three vessel coronary artery disease (LAD, LCX and RCA) * Elevated left ventricular end diastolic pressure * Successful stent insertion of the proximal OM1 lesion * Successful stent insertion of the ostial RPDA lesion * Successful stent insertion of the mid D1 lesion * Recommend continuing clopidogrel 75 mg PO daily for 6 months (see DAPT Recommendations above for more information.) * Drug eluitng stents placed. The indications, expected benefits, and potential risks of heart catheterization were reviewed in detail with the patient. The potential for , heart attack, stroke, kidney failure, hemorrhage, allergic reaction, vascular complications and infection were reviewed in detail. The possibility of stenting and other percutaneous intervention, with associated risk, was reviewed. The possible need for emergent coronary artery bypass surgery was reviewed. Alternatives were discussed and the patient's questions were answered in full. Following this discussion, the patient consented to the procedure and signed a form attesting to this, which is in the chart. Plan: Coronary Angio via right radial artery. No C/I to long-term DAPT Moderate Sedation OK Teresa Sims MD 09/01/2018 documented in this encounter H&P Notes * Ernst Puentes MD - 09/01/2018 5:15 PM EDT Images from the original note were not included. History & Physical Examination 09/01/2018 Patient Name: Roland Vega Patient Age: 68 y.o. Birthdate: 1950 Briefly, Mr. Vega is a 68 y.o. male who presents today for selective coronary angiography. As summarized in Dr. Sims's note and prior cardiology consult note, he had been having atypical symptoms in the past month, among these symptoms are chest discomfort and left arm discomfort. The chest discomfort most frequently happens after eating meals. Note that his prior symptoms of NJ/angina were back pain and fatigue; and his present features are different. He had a recent noninvasive stress test but was not able to reach target heart rate. He is known to have CAD and has prior stents to OM1, ostial RPDA, D1 and a prior RCA stent. He has cardiac risk factors pertinent for hyperlipidemia, prior smoking, and recent TIA/CVA earlier this month (discharged 08/11/18). Patient's past medical/family/social history and medications reviewed in EDH. ROS otherwise negative. BP 124/81 (BP Location (NBP): Right arm) Pulse 52 Temp 36.4 ??C (97.5 ??F) (Temporal) Resp 16 Ht 180.3 cm (5' 11) Wt 125.6 kg (277 lb) SpO2 97% BMI 38.63 kg/m?? Gen: Pleasant male in no apparent distress, able to lay flat Cor: Regular rate and rhythm; S1/S2 of normal character and amplitude, no murmurs, rubs or gallops.JVP are not elevated Pulm: Clear and equal to auscultation bilaterally Ext: Bilateral Vinayak's Test normal (both the radial and ulnar arteries alone provide ample circulation to the hand arcade). Femoral arteries are with adequate upstroke and without overlying evidence of infection. DP/PT ++ Neuro: Awake, alert, answers questions appropriately. No facial droop. ?? ASA: 2: Patient with mild systemic disease ?? Mallampati: III: only the base of the uvula can be seen ? Recent Labs 08/22/18212908/10/1832908/09/182134 WBC 6.0 4.1 5.6 HGB 14.6 12.9* 13.3* HCT 44.4 39.3* 40.4* PLATELET 208 148 161 ?? Last 3 Lytes Recent Labs 08/22/18212908/10/1832908/09/182134 NA 140 140 141 K 4.3 3.9 3.9 CL 101 102 103 CO2 28 26 25 BUN 16 16 17 CREATININE 1.06 0.93 0.97 ? Previous Catheterization: 04/20/2017 ?* Three vessel coronary artery disease (LAD, LCX and RCA) ?* Elevated left ventricular end diastolic pressure ?* Successful stent insertion of the proximal OM1 lesion ?* Successful stent insertion of the ostial RPDA lesion ?* Successful stent insertion of the mid D1 lesion ?* Recommend continuing clopidogrel 75 mg PO daily for 6 months (see DAPT ?Recommendations above for more information.) ?* Drug eluitng stents placed. ? Planned for cardiac catheterization today with me. The indications, expected benefits, and potential risks of heart catheterization were reviewed in detail with the patient. The potential for , heart attack, stroke, kidney failure, hemorrhage, allergic reaction, vascular complications and infection were reviewed in detail. The possibility of stenting and other percutaneous intervention, withassociated risk, was reviewed. The possible need for emergent coronary artery bypass surgery was reviewed. Alternatives were discussed and the patient's questions were answered in full. Following this discussion, the patient consented to the procedure and signed a form attesting to this, which is in the chart. documented in this encounter Miscellaneous Notes * Brief Op Note - Ernst Puentes MD - 09/01/2018 2:16 PM EDT Brief Operative Note Patient Name: Roland Vega : [id number] MR#: [id number] Case Date: 09/01/2018 Surgeon: Surgeon(s) and Role: * Ernst Puentes MD - Primary * Teresa Sims MD - Fellow-Interventional * Isaac Aguero PA - Physician Vice President Of Customer Service Preoperative diagnosis: Chronic stable angina pectoris Postoperative diagnosis: Chronic stable angina pectoris Procedure(s) (LRB): CARDIAC CATHETERIZATION (N/A) Right transradial arterial access Selective coronary angiography Left heart catheterization Findings: LM - Mild luminal irregularity LAD - Moderate proximal ectasia; prior stent in the mid-D1 is widely patent; D1 has an ostial 60% stenosis; mild diffuse disease in the pac-ro-puohbf vessel LCX - Mild luminal irregularities; prior stent in high OM1 is widely patent RCA - Large caliber vessel; mid-vessel is ectactic; prior stent in the rPDA is widely patent LVEDP 11 mmHg; no significant pkni-os-tkxk gradient across the aortic valve Complications: None Frailty 3 documented in this encounter Plan of Treatment Upcoming Encounters Date Type Department Care Team (Late st Contact Info) Description 08/09/2024 10:30 AM EDT Hospital En[place] [address] Navi Montero MD [facility] [place] [address] 08/09/2024 10:30 AM EDT - 08/09/2024 11:15 AM EDT Surgery [place] [address] Navi Montero MD [facility] [place] [address] COLONOSCOPY,SCREENI NG (WRVU 3.26) Scheduled Procedures Name Priority Associated Diagnoses Date/Ti me COLONOSCOPY,SCREENING (WRVU 3.26) polyps 08/09/2024 10:30 AM EDT documented as of this encounter Procedures Procedure Name Priority Date/Time Associated Diagnosis Comments POCT GLUCOSE Routine 09/01/2018 1:02 PM EDT EKG 12-LEAD Routine 09/01/2018 12:28 PM EDT Unstable angina documented in this encounter Results * POCT Glucose (09/01/2018 1:02 PM EDT) Glucose, POC 99 65 - 199 mg/dL [facility] Comment: Supplemental ranges: <140 mg/dL before meals <180 mg/dL all other times of the day Blood specimen (specimen) 09/01/2018 1:02 PM EDT 09/01/2018 1:02 PM EDT Ernst Puentes MD POINT OF CARE TEST O RDERABLES Performing Organization Address City/[facility]/ZIP Co de Phone Number [facility] [place] [address] * EKG 12 Lead (09/01/2018 12:28 PM EDT) Ventricular rate 52 BPM MUSE SYSTEM Atrial Rate 52 BPM MUSE SYSTEM P-R Interval 182 ms MUSE SYSTEM QRS Duration 118 ms MUSE SYSTEM Q-T Interval 474 ms MUSE SYSTEM QTC Calculated (Bezet) 440 ms MUSE SYSTEM Calculated P [place] 18 degrees MUSE SYSTEM Calculated R [place] -53 degrees MUSE SYSTEM Calculated T [place] -16 degrees MUSE SYSTEM INTERPRETATION Sinus bradycardia Left anterior fascicular block Poor R-wave progression T wave abnormality, consider inferior ischemia Abnormal ECG When compared with ECG of 23-AUG-2018 05:02, No significant change was found Confirmed by Taiwo Stahl MD ([id number]) on 09/01/2018 3:45:14 PM MUSE SYSTEM 09/01/2018 12:2 8 PM EDT 09/01/2018 3:45 PM EDT Toni Oneal MD ECG ORDERABLES MUSE SYSTEM documented in this encounter Visit Diagnoses Diagnosis Unstable angina Intermediate coronary syndrome documented in this encounter Administered Medications Inactive Administered Medications - up to 3 most recent administrations Medication Order MAR Action Action Date Dose Rate Site sodium chloride 0.9% infusion 150 mL/hr, Intravenous, CONTINUOUS, Starting on Thu09/01/18 at 1515, Until Thu09/01/18 at 1714, Recovery (Recovery-Hospital Unit) New Bag 09/01/2018 3:00 PM EDT 150 mL/hr 150 mL /hr documented in this encounter Active and Recently Administered Medications Times are shown in EDT. Continuous Medication Order 08/30/2018 08/31/2018 09/01/2018 sodium chloride 0.9% infusion 150 mL/hr, Intravenous, CONTINUOUS, Starting on Thu09/01/18 at 1515, Until Thu09/01/18 at 1714, Recovery (Recovery-Hospital Unit) 1500 (New Bag - Prov ider: Emili Florian RN) PRN Medication Order 08/30/2018 08/31/2018 09/01/2018 fentaNYL 50 mcg/mL multi-dose injection (CANCELED) ONCE PRN, Starting on Thu09/01/18 at 1330, Until Thu09/01/18 at 1421, Intra-Operative (Intra-Procedure), Routine 1330 (Given - Provid er: Avinash Torres RN)1337 (Given - Provider: Soheila Grimaldo RN)1352 (Given - Provider: Brenna Stevens RN) heparin (porcine) injection (CANCELED) ONCE PRN, Starting on Thu09/01/18 at 1342, Until Thu09/01/18 at 1421, Cath (Intra-Procedure), Routine 1342 (Given - Provid er: Brenna Stevens RN) iohexol (OMNIPAQUE) 350 mg/mL solution (CANCELED) ONCE PRN, Starting on Thu09/01/18 at 1417, Until Thu09/01/18 at 1421, Cath (Intra-Procedure), Routine 1417 (Given - Provid er: Ernst Puentes MD) midazolam (PF) (VERSED) multi-dose injection (CANCELED) ONCE PRN, Starting on Thu09/01/18 at 1328, Until Thu09/01/18 at 1421, Cath (Intra-Procedure), Routine 1328 (Given - Provid er: Avinash Torres RN)1338 (Given - Provider: Soheila Grimaldo RN)1353 (Given - Provider: Brenna Stevens RN) nitroGLYcerin 100 mcg/mL intracoronary dilution (CANCELED) ONCE PRN, Starting on Thu09/01/18 at 1342, Until Thu09/01/18 at 1421, Cath (Intra-Procedure), Routine 1342 (Given - Provid er: Teresa Sims MD) verapamil (ISOPTIN) injection (CANCELED) ONCE PRN, Starting on Thu09/01/18 at 1341, Until Thu09/01/18 at 1421, Administer over 2 Minutes, Cath (Intra-Procedure) 1341 (Given - Provid er: Teresa Sims MD) documented in this encounter Care Teams Conservation Engineer Relationship Specialty Start Date End Date Vel Santos MD [address] [place] [phone] PCP - General 09/24/10 06/04/23 documented as of this encounter
--- OUTSIDE RECORDS SUMMARY | 2024-07-19 22:17 | XMS_ITS | Encounter Summary ---
Author Organization [facility] Address [place] [address] Care Team Providers Care Color Adviser Name Role Phone Vel Santos MD Primary Care Provider [phone] Encounter Details Date Type Department Care Team (Late st Contact Info) Description 03/04/2019 Orders Only Cardiology at [address] [phone] Social History Tobacco Use Types Packs/Day Years [...] 10:30 AM EDT Hospital Encounter [place] [phone] Navi Montero MD [facility] [place] [address] 08/09/2024 10:30 AM EDT - 08/09/2024 11:15 AM EDT Surgery [place] [phone] Navi Montero MD [facility] [place] [address] COLONOSCOPY,SCREENI NG (WRVU 3.26) Scheduled Procedures Name Priority Associated Diagnoses Date/Ti me COLONOSCOPY,SCREENING (WRVU 3.26) polyps 08/09/2024 10:30 AM EDT documented as of this encounter Procedures Procedure Name Priority Date/Time Associated Diagnosis Comments CARDIAC DEVICE CHECK - REMOTE Routine 03/04/2019 6:36 PM EDT documented in this encounter Results * Cardiac Device Check - Remote (03/04/2019 6:36 PM EDT) Date Time Interrogation Session [id number] [employer] Implantable Pulse Generator Judge'S Clerk [employer] IDCO Implantable Pulse Generator Model [id number] [employer] Implantable Pulse Generator Serial Number [id number] IDCO Type Interrogation Session Remote [employer]CO Implantable Pulse Generator Type Implantable Diagnostic Monitor [employer] Implantable Pulse Generator Implant Date IDCO Anatomical Region Laterality Modality Other 03/04/2019 6:36 PM EDT Physician Cardiology IMPLANTABLE CARD IAC DEVICE documented in this encounter Visit Diagnoses Not on filedocumented in this encounter Care Teams Color Adviser Relationship Specialty Start Date End Date Vel Santos MD [address] [place] [phone] PCP - General 09/24/10 06/04/23 documented as of this encounter
--- OUTSIDE RECORDS SUMMARY | 2024-07-19 22:17 | XMS_ITS | Encounter Summary ---
[place] [address] Care Team Providers Care Patient Attendant Name Role Phone Vel Santos MD Primary Care Provider [phone] Reason for Visit * Auth/Cert Specialty Diagnoses / Procedures Referred By Yi cummings Referred To Contact Diagnoses Unstable angina Unstable angina [I20.0] Procedures 1 Referral ID Status Reason Start Date Expiration Date Visits Re quested Visits Authorized [id number] 1 1 Encounter Details Date Type Department Care Team (Late st Contact Info) Description 09/01/2018 10:30 AM EDT - 09/01/2018 11:30 AM EDT Surgery [place] [address] Ernst Puentes MD [facility] [place] [address] CARDIAC CATHETERIZATION Social History Tobacco Use Types Packs/Day Years Used Date Smoking Tobacco: Former Cigarettes Q uit: 08/10/2010 Smokeless Tobacco: Never Alcohol Use Standard Drinks/Week Comments Yes 14 (1 standard drink = 0.6 oz pu re alcohol) Sex and Gender Information Value Date Recorded Sex Assigned at Not on file Gender Identity Not on file Sexual Orientation Not on file documented as of this encounter Discharge Instructions [...] by your doctor, do not take any xdqh-lrx-jfvyumb medicinesor herbal preparations without first discussing this with your doctor or pharmacist. There is the possibility of side effects and interactions when these are combined. Follow Up Care Who to call with questions or problems If there are any questions or problems that you think might be related to your cardiac cath or angioplasty, contact the technical training specialist donkey ride operator by calling [facility] at . * Patient Instructions* Teresa Sims MD - 09/01/2018 2:29 PM EDT Cardiology Instructions Call your doctor if: Chest pain, dyspnea, pain or swelling in legs occurs. If you have non-emergent questions between now and the time of your follow up appointments: -During 8am-5pm Thursday through Thursday call [phone] to speak with a nurse in the cardiology clinic -All other times call [phone] and ask to speak to the nursery worker donkey ride operator. MEDICATIONS -continue your medications as before Return to work/ usual actvities: 1 week, as tolerated. Do not lift anything greater than 1 gallon for milk for 1 week. Okay to shower. Driving: No driving for 24 hours after catheterization. Follow up Appointments: Primary care provider: Cardiology: Vel Santos MD [phone] Follow up as planned or as needed. [...] for prevention. 120 mL 3 08/10/2015 08/12/2023 Kingfisher-3 Fatty Acids-Vitamin E (OMEGA-3 FISH OIL) 1,000-5 [...] his way here. His prior symptoms of MD/angina were back pain and fatigue; this is [...] 148 161 Last 3 Lytes Recent Labs 08/22/18212908/10/1832908/09/182134 NA [...] meals. Note that his prior symptoms of MD/angina were back pain and fatigue; and his [...] uvula can be seen ? Recent Labs 08/22/18212908/10/180 08/09/182134 WBC 6.0 4.1 5.6 HGB 14.6 12.9* [...] Operative Note Patient Name: Roland Vega : [id number] MR#: [id number] Case Date: 09/01/2018 Surgeon: Surgeon(s) and Role: * Ernst Puentes MD - Primary * Teresa Sims MD - Fellow-Interventional * Isaac Aguero PA - Physician Rig Supervisor Preoperative diagnosis: Chronic stable angina pectoris Postoperative diagnosis: Chronic stable angina pectoris Procedure(s) (LRB): CARDIAC CATHETERIZATION (N/A) Right transradial arterial access Selective coronary angiography Left heart catheterization Findings: LM - Mild luminal irregularity LAD - Moderate proximal ectasia; prior stent in the mid-D1 is widely patent; D1 has an ostial 60% stenosis; mild diffuse disease in the nnz-dm-ptrinn vessel LCX - Mild luminal irregularities; prior stent in high OM1 is widely patent RCA - Large caliber vessel; mid-vessel is ectactic; prior stent in the rPDA is widely patent LVEDP 11 mmHg; no significant fege-bx-jedp gradient across the aortic valve Complications: None Frailty 3 documented in this encounter Plan of Treatment Upcoming Encounters Date Type Department Care Team (Late st Contact Info) Description 08/09/2024 10:30 AM EDT Hospital En[place] [address] Navi Montero MD [facility] [place] [address] 08/09/2024 10:30 AM EDT - 08/09/2024 11:15 AM EDT [place] [phone] Navi Montero MD [facility] [place] [address] COLONOSCOPY,SCREENI NG (WRVU 3.26) Scheduled Procedures Name [...] Glucose, POC 99 65 - 199 mg/dL [facility] Comment: Supplemental ranges: <140 mg/dL before meals <180 mg/dL all other times of the day Blood specimen (specimen) 09/01/2018 1:02 PM EDT 09/01/2018 1:02 PM EDT Ernst Puentes MD POINT OF CARE TEST O NASIR [facility] [place] [address] * EKG 12 Lead (09/01/2018 12:28 PM EDT) Ventricular rate 52 BPM MUSE SYSTEM Atrial Rate 52 BPM MUSE SYSTEM P-R Interval 182 ms MUSE SYSTEM QRS Duration 118 ms MUSE SYSTEM Q-T Interval 474 ms MUSE SYSTEM QTC Calculated (Bezet) 440 ms MUSE SYSTEM Calculated P [place] 18 degrees MUSE SYSTEM Calculated R [place] -53 degrees MUSE SYSTEM Calculated T [place] -16 degrees MUSE SYSTEM INTERPRETATION Sinus bradycardia [...] Diagnoses Diagnosis Unstable angina Intermediate coronary syndrome Unstable angina Intermediate coronary syndrome documented in this encounter Administered Medications Inactive Administered Medications - up to 3 most recent administrations Medication Order MAR Action Action Date Dose Rate Site fentaNYL 50 mcg/mL multi-dose injection ONCE PRN, Starting on Thu09/01/18 at 1330, Until Thu09/01/18 at 1421, Intra-Operative (Intra-Procedure), Routine Given 09/01/2018 1:52 PM EDT 25 mcg Given 09/01/2018 1:37 PM EDT 12.5 mcg Given 09/01/2018 1:30 PM EDT 12.5 mcg heparin (porcine) injection ONCE PRN, Starting on Thu09/01/18 at 1342, Until Thu09/01/18 at 1421, Cath (Intra-Procedure), Routine Given 09/01/2018 1:42 PM EDT 6,000 Units iohexol (OMNIPAQUE) 350 mg/mL solution ONCE PRN, Starting on Thu09/01/18 at 1417, Until Thu09/01/18 at 1421, Cath (Intra-Procedure), Routine Given 09/01/2018 2:17 PM EDT 110 mLs midazolam (PF) (VERSED) multi-dose injection ONCE PRN, Starting on Thu09/01/18 at 1328, Until Thu09/01/18 at 1421, Cath (Intra-Procedure), Routine Given 09/01/2018 1:53 PM EDT 0.5 mg Given 09/01/2018 1:38 PM EDT 0.5 mg Given 09/01/2018 1:28 PM EDT 0.5 mg nitroGLYcerin 100 mcg/mL intracoronary dilution ONCE PRN, Starting on Thu09/01/18 at 1342, Until Thu09/01/18 at 1421, Cath (Intra-Procedure), Routine Given 09/01/2018 1:42 PM EDT 150 mcg sodium chloride 0.9% infusion 150 mL/hr, Intravenous, CONTINUOUS, Starting on Thu09/01/18 at 1515, Until Thu09/01/18 at 1714, Recovery (Recovery-Hospital Unit) New Bag 09/01/2018 3:00 PM EDT 150 mL/hr 150 mL /hr verapamil (ISOPTIN) injection ONCE PRN, Starting on Thu09/01/18 at 1341, Until Thu09/01/18 at 1421, Administer over 2 Minutes, Cath (Intra-Procedure) Given 09/01/2018 1:41 PM EDT 2.5 mg documented in this encounter Active and [...] Routine 1342 (Given - Provid er: Brenna Stevens, GLORIA) iohexol (OMNIPAQUE) 350 mg/mL solution (CANCELED) ONCE [...] MD) documented in this encounter Care Teams Patient Attendant Relationship Specialty Start Date End Date Vel Santos MD [address] [place] [address] [phone] PCP - General 09/24/10 06/04/23 documented as of this encounter
--- OUTSIDE RECORDS SUMMARY | 2024-07-19 22:17 | XMS_ITS | Encounter Summary ---
Author Organization [facility] Address [facility] [place] [address] Care Team Providers Care Asic Verification Engineer Name Role Phone Vel Santos MD Primary Care Provider [phone] Encounter Details Date Type Department Care Team (Late st Contact Info) Description 11/05/2018 Telephone Cardiology at [address] [phone] Moon South RN Social History [...] Telephone Encounter - Moon South RN - 11/05/2018 10:48 AM EST Called to review the function of his ILR and let him know the initial transmission was recieved documented in this encounter Plan of Treatment Upcoming Encounters Date Type Department Care Team (Late st Contact Info) Description 08/09/2024 10:30 AM EDT Hospital Encounter [place] [address] Navi Montero MD [facility] [place] [address] 08/09/2024 10:30 AM EDT - 08/09/2024 11:15 AM EDT Surgery [place] [address] Navi Montero MD [facility] [place] [address] COLONOSCOPY,SCREENI NG (WRVU 3.26) Scheduled Procedures Name Priority Associated Diagnoses Date/Ti me COLONOSCOPY,SCREENING (WRVU 3.26) polyps 08/09/2024 10:30 AM EDT documented as of this encounter Visit Diagnoses Not on filedocumented in this encounter Care Teams Asic Verification Engineer Relationship Specialty Start Date End Date Vel Santos MD [address] [place] [address] [phone] PCP - General 09/24/10 06/04/23 documented as of this encounter
--- OUTSIDE RECORDS SUMMARY | 2024-07-19 22:17 | XMS_ITS | Encounter Summary ---
Author Organization [facility] Address [facility] [address] Care Team Providers Care Physical Therapy Aide Name Role Phone Vel Santos MD Primary Care Provider [phone] Encounter Details Date Type Department Care Team (Late st Contact Info) Description 11/05/2018 Orders Only Cardiology at [address] [phone] Social History Tobacco Use Types Packs/Day Years [...] 10:30 AM EDT Hospital Encounter [place] [phone] Navi Montero MD [facility] [place] [address] 08/09/2024 10:30 AM EDT - 08/09/2024 11:15 AM EDT [place] [phone] Navi Montero MD [facility] [place] [address] COLONOSCOPY,SCREENI NG (WRVU 3.26) Scheduled Procedures Name Priority Associated Diagnoses Date/Ti me COLONOSCOPY,SCREENING (WRVU 3.26) polyps 08/09/2024 10:30 AM EDT documented as of this encounter Procedures Procedure Name Priority Date/Time Associated Diagnosis Comments CARDIAC DEVICE CHECK - REMOTE Routine 11/05/2018 5:46 AM EST documented in this encounter Results * Cardiac Device Check - Remote (11/05/2018 5:46 AM EST) Date Time Interrogation Session IDCO Implantable Pulse Generator [employer] Counter Person Knowledge Delivery Systemstronic IDCO Implantable Pulse Generator Model [id number] IDCO Implantable Pulse Generator Serial Number [id number] IDCO Type Interrogation Session Remote IDCO Implantable [...] IDCO Battery Status OK IDCO Episode Identifier 4 IDCO Episode Date Time IDCO Episode Duration 11.59 s IDCO Episode Identifier 3 IDCO Episode Date Time [id number] IDCO Episode Duration 27.56 s IDCO Episode Identifier 2 IDCO Episode Date Time IDCO Episode Duration 3.25 s IDCO Episode Identifier 1 IDCO Episode Date Time [id number] IDCO Episode Duration 4.91 s IDCO Atrial Tachy Statistic Date Time Start IDCO Atrial Tachy Statistic Date Time End IDCO Atrial Tachy Statistic AT/AF [place] Percent 0 % IDCO Episode Statistic Recent Count 0 IDCO Episode Statistic Recent Count 4 IDCO Episode Statistic Recent Count 0 IDCO Episode Statistic Recent Count 0 IDCO Episode Statistic Recent Count 0 IDCO Episode Statistic Type Category Patient Activated IDCO Episode Statistic Recent Count 0 IDCO Episode Statistic Type Category AT/AF IDCO Episode Statistic Recent Date Time Start IDCO Episode Statistic Recent Date Time End IDCO Episode Statistic Recent Date Time Start [id number] IDCO Episode Statistic Recent Date Time End [id number] IDCO Episode Statistic Recent Date Time Start [id number] IDCO Episode Statistic Recent Date Time End 24328314301660 IDCO Episode Statistic Recent Date Time Start 37991451180146 IDCO Episode Statistic Recent Date Time End [id number] IDCO Episode Statistic Recent Date Time Start 14076342452711 IDCO Episode Statistic Recent Date Time End 54464692066300 IDCO Episode Statistic Recent Date Time Start 20602561500194 IDCO Episode Statistic Recent Date Time End 80848156196153 IDCO Episode Statistic Total Count 0 IDCO Episode Statistic Total Count 4 IDCO Episode Statistic Total Count 0 IDCO Episode Statistic Total Count 0 IDCO Episode Statistic Total Count 0 IDCO Episode Statistic Type Category Patient Activated IDCO Episode Statistic Total Count 0 IDCO Episode Statistic Type Category AT/AF IDCO Episode Statistic Total Date Time Start 16858017109927 IDCO Episode Statistic Total Date Time End 81695052904838 IDCO Episode Statistic Total Date Time Start 19838115102444 IDCO Episode Statistic Total Date Time End 66216581844019 IDCO Episode Statistic Total Date Time Start 76394604701466 IDCO Episode Statistic Total Date Time End 21733905079588 IDCO Episode Statistic Total Date Time Start 43237257748469 IDCO Episode Statistic Total Date Time End 70278885089135 IDCO Episode Statistic Total Date Time Start 76565878275775 IDCO Episode Statistic Total Date Time End 29551486670549 IDCO Episode Statistic Total Date Time Start 61057377099363 IDCO Episode Statistic Total Date Time End 16026559089626 IDCO Anatomical Region Laterality Modality Other 11/05/2018 5:46 AM EST Physician Cardiology IMPLANTABLE CARD IAC DEVICE documented in this encounter Visit Diagnoses Not on filedocumented in this encounter Care Teams Physical Therapy Aide Relationship Specialty Start Date End Date Vel Santos MD [address] [place] [phone] PCP - General 09/24/10 06/04/23 documented as of this encounter
--- OUTSIDE RECORDS SUMMARY | 2024-07-19 22:17 | XMS_ITS | Encounter Summary ---
Author Organization [facility] Address [facility] [place] [address] Care Team Providers Care Bilingual Middle School Teacher Name Role Phone Vel Santos MD Primary Care Provider [phone] Encounter Details Date Type Department Care Team (Late st Contact Info) Description 06/04/2019 Orders Only Cardiology at [address] [phone] Social History Tobacco Use Types Packs/Day Years [...] 10:30 AM EDT Hospital En[place] [phone] Navi Montero MD [facility] [address] 08/09/2024 10:30 AM EDT - 08/09/2024 11:15 AM EDT [place] [phone] Navi Montero MD [facility] [address] COLONOSCOPY,SCREENI NG (WRVU 3.26) Scheduled Procedures Name Priority Associated Diagnoses Date/Ti me COLONOSCOPY,SCREENING (WRVU 3.26) polyps 08/09/2024 10:30 AM EDT documented as of this encounter Procedures Procedure Name Priority Date/Time Associated Diagnosis Comments CARDIAC DEVICE CHECK - REMOTE Routine 06/04/2019 2:19 AM EDT documented in this encounter Results * Cardiac Device Check - Remote (06/04/2019 2:19 AM EDT) Date Time Interrogation Session [id number] IDCO Implantable Pulse Generator Cement Paver Medtronic IDCO Implantable Pulse Generator Model [id number] IDCO Implantable Pulse Generator Serial Number [id number] IDCO Type Interrogation Session Remote IDCO Implantable [...] IDCO Battery Status OK IDCO Episode Identifier 41 IDCO Episode Type Category Patient Activated IDCO Episode Date Time [id number] IDCO Episode Identifier 40 IDCO Episode Type Category Patient Activated IDCO Episode Date Time [id number] IDCO Episode Identifier 39 IDCO Episode Type Category Patient Activated IDCO Episode Date Time [id number] IDCO Episode Identifier 38 IDCO Episode Type Category Patient Activated IDCO Episode Date Time [id number] IDCO Episode Identifier 37 IDCO Episode Type Category Patient Activated IDCO Episode Date Time [id number] IDCO Episode Identifier 36 IDCO Episode Type Category Patient Activated IDCO Episode Date Time [id number] IDCO Episode Identifier 35 IDCO Episode Type Category Patient Activated IDCO Episode Date Time [id number] IDCO Episode Identifier 34 IDCO Episode Type Category Patient Activated IDCO Episode Date Time [id number] IDCO Episode Identifier 33 IDCO Episode Type Category Patient Activated IDCO Episode Date Time 15329948004907 IDCO Episode Identifier 32 IDCO Episode Type Category Patient Activated IDCO Episode Date Time [id number] IDCO Atrial Tachy Statistic Date Time Start 59507206916895 IDCO Atrial Tachy Statistic Date Time End IDCO Atrial Tachy Statistic AT/AF [place] Percent 0 % IDCO Episode Statistic Recent Count 0 IDCO Episode Statistic Recent Count 0 IDCO Episode Statistic Recent Count 0 IDCO Episode Statistic Recent Count 0 IDCO Episode Statistic Recent Count 16 IDCO Episode Statistic Type Category Patient Activated IDCO Episode Statistic Recent Count 0 IDCO Episode Statistic Type Category AT/AF IDCO Episode Statistic Recent Date Time Start IDCO Episode Statistic Recent Date Time End IDCO Episode Statistic Recent Date Time Start 04369328590488 IDCO Episode Statistic Recent Date Time End IDCO Episode Statistic Recent Date Time Start IDCO Episode Statistic Recent Date Time End IDCO Episode Statistic Recent Date Time Start 91910567126004 IDCO Episode Statistic Recent Date Time End IDCO Episode Statistic Recent Date Time Start IDCO Episode Statistic Recent Date Time End IDCO Episode Statistic Recent Date Time Start 23634915370155 IDCO Episode Statistic Recent Date Time End IDCO Episode Statistic Total Count 0 IDCO Episode Statistic Total Count 4 IDCO Episode Statistic Total Count 0 IDCO Episode Statistic Total Count 0 IDCO Episode Statistic Total Count 37 IDCO Episode Statistic Type Category Patient Activated IDCO Episode Statistic Total Count 0 IDCO Episode Statistic Type Category AT/AF IDCO Episode Statistic Total Date Time Start 57389698851242 IDCO Episode Statistic Total Date Time End 04186618919394 IDCO Episode Statistic Total Date Time Start 38558249443363 IDCO Episode Statistic Total Date Time End 63327436688142 IDCO Episode Statistic Total Date Time Start 65566543763441 IDCO Episode Statistic Total Date Time End 01109876652496 IDCO Episode Statistic Total Date Time Start 11068847811194 IDCO Episode Statistic Total Date Time End 03265513632517 IDCO Episode Statistic Total Date Time Start 55790716758402 IDCO Episode Statistic Total Date Time End 70371988826070 IDCO Episode Statistic Total Date Time Start 82649016333538 IDCO Episode Statistic Total Date Time End 58704446384609 IDCO Anatomical Region Laterality Modality Other 06/04/2019 2:19 AM EDT Physician Cardiology IMPLANTABLE CARD IAC DEVICE documented in this encounter Visit Diagnoses Not on filedocumented in this encounter Care Teams Bilingual [employer] Teacher Relationship Specialty Start Date End Date Vel Santos MD [address] [place] [address] [phone] PCP - General 09/24/10 06/04/23 documented as of this encounter
--- OUTSIDE RECORDS SUMMARY | 2024-07-19 22:17 | XMS_ITS | Encounter Summary ---
Author Organization [facility] [place] [address] Care Team Providers Care Hiv Nurse Name Role Phone Vel Santos MD Primary Care Provider [phone] Encounter Details Date Type Department Care Team (Latest Contact Info) Description 09/09/2018 3:20 PM EST Office Visit Cardiology at [address] [phone] Adrian Rubio MD [facility] [place] [address] ASCVD (arteriosclerotic cardiovascular disease); Hyperlipidemia, unspecified hyperlipidemia type; S/P angioplasty with stent; Acute ischemic left MCA stroke; Near syncope Social History Tobacco Use Types Packs/Day [...] Sign Reading Time Taken Comments Blood Pressure 120/70 09/09/2018 3:22 PM EST Pulse 55 09/09/2018 3:22 PM EST Temperature - - Respiratory Rate - - Oxygen Saturation 95% 09/09/2018 3:22 PM EST Inhaled Oxygen Concentration - - Weight 126.5 kg (278 lb 14.4 oz) 09/09/2018 3:22 PM EST Height 182.9 cm (6') 09/09/2018 3:22 PM EST Body Mass Index 37.83 09/09/2018 3:22 PM EST documented in this encounter Patient Instructions * Patient Instructions* Adrian Rubio MD - 09/09/2018 3:20 PM EST Follow up in 4 weeks. documented in this encounter Progress Notes * Adrian Rubio MD - 09/09/2018 3:20 PM EST [facility] [place] [address] CARDIOVASCULAR MEDICINE OUTPATIENT CONSULTATION [facility] Roland Vega Primary Care Provider: Vel Santos [...] which prompted anoutpatient evaluation by his local fire prevention forester. He was referred to [facility] for possible catheterization, but prior to that date he developed right scalp and facial numbness as well as tongue paralysis and presented to the [facility] ER where he was found to [...] S/P angioplasty with stent ??? 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 DOCOSAHEXANOIC ACID ORAL Take 3,000 mg by mouth daily. ??? ONETOUCH ULTRA BLUE TEST STRIP Strip [...] Sustained Release Take 450 mg by mouth 2 times daily. ??? [...] Tablet(s), PO, Once daily (Patient taking differently: 80 MG = 1 Tablet(s), PO, Once daily) ??? metoprolol succinate (TOPROL-XL) 100 mg XL tablet 100 MG = 1 Tablet(s), PO, Once daily ALLERGIES: Reviewed and updated as appropriate in the medical record. PHYSICAL EXAMINATION: BP 120/70 Pulse 55 Ht 182.9 cm (6') Wt 126.5 kg (278 lb 14.4 oz) SpO2 95% BMI 37.83 kg/m?? Exam Details: Pleasant gentleman who is [...] 60% stenosis; mild diffuse disease in the mfh-pg-ivtvrf vessel LCX - Mild luminal irregularities; prior stent in high OM1 is widely patent RCA - Large caliber vessel; mid-vessel is ectactic; prior stent in the rPDA is widely patent LVEDP 11 mmHg; no significant dqch-hu-zhve gradient across the aortic valve. ZIO Summary [...] based on clinical history 5. Overweight RECOMMENDATIONS: At present, I see no need for any acute cardiovascular interventions. He is status post recent MCA infarct and is on good medical therapy for this. 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 Agree with current strategy of antiplatelet therapy and high intensity statin. His recent arrhythmia monitor has not demonstrated any sustained or dangerous arrhythmias. 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 For now, I think we should focus on gradual increase in activity, monitored exercise program, and afocus on weight loss with a target of 270 pounds or less at the next visit in 4 weeks. At that time, we will touch base regarding next steps. Thank you for requesting this consultation. For questions, please feel free to contact me via any of the following methods: documented in this encounter Plan of Treatment Upcoming Encounters Date Type Department Care Team (Late st Contact Info) Description 08/09/2024 10:30 AM EDT Hospital En[place] [address] Navi Montero MD [facility] [place] [address] 08/09/2024 10:30 AM EDT - 08/09/2024 11:15 AM EDT [place] [address] Navi Montero MD [facility] [place] [address] COLONOSCOPY,SCREENI NG (WRVU 3.26) Scheduled Procedures Name Priority Associated Diagnoses Date/Ti me COLONOSCOPY,SCREENING (WRVU 3.26) polyps 08/09/2024 10:30 AM EDT documented as of this encounter Visit Diagnoses Diagnosis ASCVD (arteriosclerotic cardiovascular disease) Unspecified cardiovascular disease Hyperlipidemia, unspecified hyperlipidemia type S/P angioplasty with stent Postsurgical percutaneous transluminal coronary angioplasty status Acute ischemic left MCA stroke Unspecified cerebral artery occlusion with cerebral infarction Near syncope Syncope and collapse documented in this encounter Care Teams Hiv Nurse Relationship Specialty Start Date End Date Vel Santos MD [address] [place] [phone] PCP - General 09/24/10 06/04/23 documented as of this encounter
--- OUTSIDE RECORDS SUMMARY | 2024-07-19 22:17 | XMS_ITS | Encounter Summary ---
Author Organization [facility]ending [facility] [place] [address] Care Team Providers Care Hand Plug Shaper Name Role Phone Vel Santos MD Primary Care Provider [phone] Encounter Details Date Type Department Care Team (Late st Contact Info) Description 01/16/2019 Orders Only Cardiology at [address] [phone] Social History Tobacco Use Types Packs/Day Years [...] AM EDT Hospital Encounter [place] [phone] Navi Montero MD [facility] [place] [address] 08/09/2024 10:30 AM EDT - 08/09/2024 11:15 AM EDT Surgery [place] [phone] Navi Montero MD [facility] [place] [address] COLONOSCOPY,SCREENI NG (WRVU 3.26) Scheduled Procedures Name Priority Associated Diagnoses Date/Ti me COLONOSCOPY,SCREENING (WRVU 3.26) polyps 08/09/2024 10:30 AM EDT documented as of this encounter Procedures Procedure Name Priority Date/Time Associated Diagnosis Comments CARDIAC DEVICE CHECK - REMOTE Routine 01/16/2019 12:44 AM EDT documented in this encounter Results * Cardiac Device Check - Remote (01/16/2019 12:44 AM EDT) Date Time Interrogation Session [id number] IDCO Implantable Pulse Generator Electric Appliance Installer Medtronic IDCO Implantable Pulse Generator Model [id number] IDCO Implantable Pulse Generator Serial Number [id number] IDCO Type Interrogation Session Remote IDCO Implantable [...] IDCO Battery Status OK IDCO Episode Identifier 25 IDCO Episode Type Category Patient Activated IDCO Episode Date Time [id number] IDCO Episode Identifier 24 IDCO Episode Type Category Patient Activated IDCO Episode Date Time [id number] IDCO Episode Identifier 23 IDCO Episode Type Category Patient Activated IDCO Episode Date Time [id number] IDCO Episode Identifier 22 IDCO Episode Type Category Patient Activated IDCO Episode Date Time [id number] IDCO Episode Identifier 21 IDCO Episode Type Category Patient Activated IDCO Episode Date Time [id number] IDCO Episode Identifier 20 IDCO Episode Type Category Patient Activated IDCO Episode Date Time [id number] IDCO Episode Identifier 19 IDCO Episode Type Category Patient Activated IDCO Episode Date Time [id number] IDCO Episode Identifier 18 IDCO Episode Type Category Patient Activated IDCO Episode Date Time [id number] IDCO Episode Identifier 17 IDCO Episode Type Category Patient Activated IDCO Episode Date Time [id number] IDCO Episode Identifier 16 IDCO Episode Type Category Patient Activated IDCO Episode Date Time [id number] IDCO Atrial Tachy Statistic Date Time Start [id number] IDCO Atrial Tachy Statistic Date Time End [id number] IDCO Atrial Tachy Statistic AT/AF [place] Percent 0 % IDCO Episode Statistic Recent Count 0 IDCO Episode Statistic Recent Count 0 IDCO Episode Statistic Recent Count 0 IDCO Episode Statistic Recent Count 0 IDCO Episode Statistic Recent Count 21 IDCO Episode Statistic Type Category Patient Activated IDCO Episode Statistic Recent Count 0 IDCO Episode Statistic Type Category AT/AF IDCO Episode Statistic Recent Date Time Start IDCO Episode Statistic Recent Date Time End [id number] IDCO Episode Statistic Recent Date Time Start IDCO Episode Statistic Recent Date Time End [id number] IDCO Episode Statistic Recent Date Time Start IDCO Episode Statistic Recent Date Time End [id number] IDCO Episode Statistic Recent Date Time Start IDCO Episode Statistic Recent Date Time End [id number] IDCO Episode Statistic Recent Date Time Start IDCO Episode Statistic Recent Date Time End [id number] IDCO Episode Statistic Recent Date Time Start IDCO Episode Statistic Recent Date Time End [id number] IDCO Episode Statistic Total Count 0 IDCO Episode Statistic Total Count 4 IDCO Episode Statistic Total Count 0 IDCO Episode Statistic Total Count 0 IDCO Episode Statistic Total Count 21 IDCO Episode Statistic Type Category Patient Activated IDCO Episode Statistic Total Count 0 IDCO Episode Statistic Type Category AT/AF IDCO Episode Statistic Total Date Time Start [id number] IDCO Episode Statistic Total Date Time End [id number] IDCO Episode Statistic Total Date Time Start [id number] IDCO Episode Statistic Total Date Time End [id number] IDCO Episode Statistic Total Date Time Start [id number] IDCO Episode Statistic Total Date Time End [id number] IDCO Episode Statistic Total Date Time Start [id number] IDCO Episode Statistic Total Date Time End [id number] IDCO Episode Statistic Total Date Time Start [id number] IDCO Episode Statistic Total Date Time End [id number] IDCO Episode Statistic Total Date Time Start 22478919805437 IDCO Episode Statistic Total Date Time End [id number] IDCO Anatomical Region Laterality Modality Other 01/16/2019 12:4 4 AM EDT Physician Cardiology IMPLANTABLE CARD IAC DEVICE documented in this encounter Visit Diagnoses Not on filedocumented in this encounter Care Teams Hand Plug Shaper Relationship Specialty Start Date End Date Vel Santos MD [address] [place] [phone] PCP - General 09/24/10 06/04/23 documented as of this encounter
--- OUTSIDE RECORDS SUMMARY | 2024-07-19 22:17 | XMS_ITS | Encounter Summary ---
Author Organization [facility] Address [facility] [place] [address] Care Team Providers Care Insulator Tester Name Role Phone Vel Santos MD Primary Care Provider [phone] Encounter Details Date Type Department Care Team (Late st Contact Info) Description 03/07/2019 Notes Only Cardiology at [address] [phone] Kirk Dumont MD [facility] [place] [address] Social History Tobacco Use Types Packs/Day Years [...] as of this encounter Progress Notes * Kirk Dumont MD - 03/07/2019 2:02 PM EDT Remote Device Download Medtronic Carelink 03/07/19 Device: ILR Model: LINQ LNQ11 There are 19 symptom episodes in the episode list. Since the last transmission (January 15, 2019), there have been 8 symptom events Most of these appear to represent sinus rhythm/sinus tachycardia, with occasional oversensing of noise P waves are somewhat difficult to see during these recordings Impression 8 new symptom events submitted since the last patient ILR download These appear to represent sinus rhythm/sinus tachycardia at times with some recording artifact Follow Up 8 new submitted symptom episodes No significant arrhythmias KIRK DUMONT MD documented in this encounter Plan of Treatment Upcoming Encounters Date Type Department Care Team (Late st Contact Info) Description 08/09/2024 10:30 AM EDT Hospital Encounter [place] [address] Navi Montero MD [facility] [place] [address] 08/09/2024 10:30 AM EDT - 08/09/2024 11:15 AM EDT Surgery [place] [address] Navi Montero MD [facility] [place] [address] COLONOSCOPY,SCREENI NG (WRVU 3.26) Scheduled Procedures Name Priority Associated Diagnoses Date/Ti me COLONOSCOPY,SCREENING (WRVU 3.26) polyps 08/09/2024 10:30 AM EDT documented as of this encounter Visit Diagnoses Not on filedocumented in this encounter Care Teams Insulator Tester Relationship Specialty Start Date End Date Vel Santos MD [address] [place] [phone] PCP - General 09/24/10 06/04/23 documented as of this encounter
--- OUTSIDE RECORDS SUMMARY | 2024-07-19 22:17 | XMS_ITS | Encounter Summary ---
Author Organization [facility] Address [facility] [place] [address] Care Team Providers Care Weather Observer Name Role Phone Vel Santos MD Primary Care Provider [phone] Encounter Details Date Type Department Care Team (Late st Contact Info) Description 12/04/2018 Orders Only Cardiology at [address] [phone] Social History Tobacco Use Types Packs/Day Years [...] 10:30 AM EDT Hospital Encounter [place] [phone] Navi Montero MD [facility] [address] 08/09/2024 10:30 AM EDT - 08/09/2024 11:15 AM EDT Surgery [place] [phone] Navi Montero MD [facility] [address] COLONOSCOPY,SCREENI NG (WRVU 3.26) Scheduled Procedures Name Priority Associated Diagnoses Date/Ti me COLONOSCOPY,SCREENING (WRVU 3.26) polyps 08/09/2024 10:30 AM EDT documented as of this encounter Procedures Procedure Name Priority Date/Time Associated Diagnosis Comments CARDIAC DEVICE CHECK - REMOTE Routine 12/04/2018 6:09 PM EST documented in this encounter Results * Cardiac Device Check - Remote (12/04/2018 6:09 PM EST) Date Time Interrogation Session [id number] IDCO Implantable Pulse Generator Sisal Operator Medtronic IDCO Implantable Pulse Generator Model LNQ11 IDCO Implantable Pulse Generator Serial Number [id number] IDCO Type Interrogation Session Remote IDCO Implantable Pulse Generator Type Implantable Diagnostic Monitor IDCO Implantable Pulse Generator Implant Date IDCO Anatomical Region Laterality Modality Other 12/04/2018 6:09 PM EST Physician Cardiology IMPLANTABLE CARD IAC DEVICE documented in this encounter Visit Diagnoses Not on filedocumented in this encounter Care Teams Weather Observer Relationship Specialty Start Date End Date Vel Satnos MD [address] [place] [phone] PCP - General 09/24/10 06/04/23 documented as of this encounter
--- OUTSIDE RECORDS SUMMARY | 2024-07-19 22:17 | XMS_ITS | Encounter Summary ---
[place] [address] Care Team Providers Care Scientific Diver Name Role Phone Vel Santos MD Primary Care Provider [phone] Encounter Details Date Type Department Care Team (Late st Contact Info) Description 08/13/2018 [place] [phone] Kim Carlson RN Social History Tobacco Use Types Packs/Day [...] encounter Miscellaneous Notes * Telephone Encounter - Kenya Conory - 08/13/2018 3:32 PM EDT Clinical [place] Message Caller: Patient If not Pt / Relation to pt: Call back Number: patient did not have time to give number. He stated that it was the same number that Marguerite used before Best time to reach caller: did not divulge Reason for call: Patient returned call. Message/additional information for the nurse: Disposition of Call ?? Routine Message sent to the Nurse * Telephone Encounter - Kim Carlson RN - 08/13/2018 1:38 PM EDT Call placed to pt 08/13/2018 3:06, pt in middle of something and will call back Call returned to pt, pt again not able to speak. Pt instructed to call back Thursday after 8am. Pt asked if he has any questions before the weekend, says he thinks he is all set. 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 a) If yes, what was the concern and the plan? b) Any changes to your medications or treatment plan? 2) *Any falls since discharge? a) If yes, were there any injuries? b) Are you using a walker, cane, ski poles, or other tools to help you move around inside and outside your home? i) If yes, is this new? MEDICATION 1) New Medication started: 2) Discontinued Medication: 3) Medications with dose or instruction changes: 4) *Has there been any problem getting or taking medications (especially Plavix, Coumadin, Lovenox,or other anticoagulants)? 5) Has there been any new symptoms or side effects since starting the new medications? a) Any new bleeding, bruising, constipation? 6) *Were you provided with clear instructions on how and when to take your scheduled medications atdischarge? APPOINTMENTS Assure that patient understands reason for follow up appointments and contact information. 1) PCP Appointment: 2) Specialist: 08/31/2018 2:00 PM Niki Zamorano MD Neurology at [place] [phone] 3) Diagnostic (lab/radiology): Ziopatch placed on discharge 4) Discuss planning ahead for your office visit by bringing in written questions. DISCHARGE SERVICES 1) *Is there an agency coming to help at home with physical therapy, occupational therapy, or nursing? a) Name of agency? b) Offer referral for therapy in a local hospital or with a local company if patient is not gettinghome care services? 2) Are coordination of discharge services needed (home care/DME/meals on wheels)? a) If yes, assure that patient understands reason for services and contact information. i) Name of agency: ii) Type of Service: iii) Stroke Support Group? HOSPITAL STAY 1) *Was the educational material regarding stroke/TIA helpful? 2) *Do you feel confident that you and your family have the information you need now that you are home? SIGNS OF STROKE 1) *Reviewed the 5 signs of stroke with patient and what to do if any urgent/emergent symptoms occur: a) NUMBNESS or weakness of face, arm, or leg, especially on one side of the body. b) CONFUSION, trouble speaking or understanding speech. c) TROUBLE SEEING in one or both eyes. d) TROUBLE WALKING, dizziness, loss of balance or coordination. e) SEVERE HEADACHE with no known cause. documented in this encounter Plan of Treatment Upcoming Encounters Date Type Department Care Team (Late st Contact Info) Description 08/09/2024 10:30 AM EDT Hospital Encounter [place] [address] Navi Montero MD [facility] [place] [address] 08/09/2024 10:30 AM EDT - 08/09/2024 11:15 AM EDT Surgery [place] [address] Navi Montero MD [facility] [place] [address] COLONOSCOPY,SCREENI NG (WRVU 3.26) Scheduled Procedures Name Priority Associated Diagnoses Date/Ti me COLONOSCOPY,SCREENING (WRVU 3.26) polyps 08/09/2024 10:30 AM EDT documented as of this encounter Visit Diagnoses Not on filedocumented in this encounter Care Teams Scientific Diver Relationship Specialty Start Date End Date Vel Santos MD [address] [place] [phone] PCP - General 09/24/10 06/04/23 documented as of this encounter
--- OUTSIDE RECORDS SUMMARY | 2024-07-19 22:18 | XMS_ITS | Encounter Summary ---
Author Organization [facility] [place] [address] Care Team Providers Care Guest Services Officer Name Role Phone Vel Santos MD Primary Care Provider [phone] Encounter Details Date Type Department Care Team (Late st Contact Info) Description 11/13/2010 5:00 AM EST - 11/13/2010 11:59 PM [facility] Hospital Encounter [place] [address] Social History Tobacco Use Types Packs/Day Years Used Date Smoking Tobacco: Never Assessed Sex and Gender Information Value Date Recorded Sex Assigned at Not on file Gender Identity Not on file Sexual Orientation Not on file documented as of this encounter Medications at Time of Discharge Medication Sig Dispensed Refills Start Date End Date nitroGLYcerin (NITROSTAT) 0.4 mg SL tablet 0.4 MG = 1 Tablet(s), Sublingual, prn 11/13/2010 [facility] Med - calcium citrate w/ D, Mg and kathy 11/13/2010 [facility] Free [facility] Med - immunoglobulin 11/13/2010 08/10/2015 testosterone enanthate (DELATESTRYL) 200 mg/mL injection 11/13/2010 08/10/2015 folic acid (FOLVITE) 400 mcg tablet 11/13/2010 08/10/2015 ascorbic acid (VITAMIN C) 1,000 mg tablet 11/13/2010 08/10/2015 VITAMIN E ACETATE (VITAMIN E ORAL) 11/13/2010 08/10/2015 [place]-3 Fatty Acids-Vitamin E (OMEGA-3 FISH OIL) 1,000-5 mg-unit Cap 11/13/2010 09/09/20 18 aspirin 325 mg tablet 11/13/20102014 pantoprazole (PROTONIX) 20 mg tablet 20 MG = 1 Tablet(s), PO, Once daily 11/13/2010 08/10/2015 clopidogrel (PLAVIX) 75 mg tablet 75 MG = 1 Tablet(s), PO, Once daily 11/13/2010 03/08/2014 atorvastatin (LIPITOR) 40 mg tablet 40 MG = 1 Tablet(s), PO, Once daily 11/13/2010 08/12/2023 ALPHA LIPOIC ACID ORAL 11/13/201008/10 CHOLECALCIFEROL, VITAMIN D3, (VITAMIN D-3 ORAL) 11/13/201008/10 metoprolol succinate (TOPROL-XL) 100 mg XL tablet Take by mouth. 11/13/2010 08/12/2023 lisinopril (PRINIVIL;ZESTRIL) 5 mg tablet 5 MG = 1 Tablet(s), PO, Once daily 11/13/2010 04/17/2017 documented as of this encounter Plan of Treatment Upcoming Encounters Date Type Department Care Team (Late st Contact Info) Description 08/09/2024 10:30 AM EDT Hospital Encounter [place] [address] Navi Montero MD [facility] [place] [address] 08/09/2024 10:30 AM EDT - 08/09/2024 11:15 AM EDT Surgery [place] [address] Navi Montero MD [facility] [place] [address] COLONOSCOPY,SCREENI NG (WRVU 3.26) Scheduled Procedures Name Priority Associated Diagnoses Date/Ti me COLONOSCOPY,SCREENING (WRVU 3.26) polyps 08/09/2024 10:30 AM EDT documented as of this encounter Visit Diagnoses Not on filedocumented in this encounter Care Teams Guest Services Officer Relationship Specialty Start Date End Date Vel Santos MD [address] [place] [phone] PCP - General 09/24/10 06/04/23 documented as of this encounter
--- OUTSIDE RECORDS SUMMARY | 2024-07-19 22:18 | XMS_ITS | Encounter Summary ---
Author Organization [facility] [place] [address] Care Team Providers Care Wrapper Operator Name Role Phone Vel Santos MD Primary Care Provider [phone] Encounter Details Date Type Department Care Team (Late st Contact Info) Description 08/20/2015 Orders Only Dermatology at [facility] [address] [place] [address] Rl Martinez MD [address] [facility] [place] [address] Social History Tobacco Use Types Packs/Day Years [...] 10:30 AM EDT Hospital Encounter [place] [address] Navi Montero MD [facility] [place] [address] 08/09/2024 10:30 AM EDT - 08/09/2024 11:15 AM EDT Surgery [place] [address] Navi Montero MD [facility] [place] [address] COLONOSCOPY,SCREENI NG (WRVU 3.26) Scheduled Procedures Name Priority Associated Diagnoses Date/Ti me COLONOSCOPY,SCREENING (WRVU 3.26) polyps 08/09/2024 10:30 AM EDT documented as of this encounter Visit Diagnoses Not on filedocumented in this encounter Care Teams Wrapper Operator Relationship Specialty Start Date End Date Vel Santos MD [address] [place] [phone] PCP - General 09/24/10 06/04/23 documented as of this encounter
--- OUTSIDE RECORDS SUMMARY | 2024-07-19 22:18 | XMS_ITS | Encounter Summary ---
Author Organization [facility] Address [facility] [place] [address] Care Team Providers Care Siphoner Name Role Phone Vel Santos MD Primary Care Provider [phone] Encounter Details Date Type Department Care Team (Late st Contact Info) Description 03/31/2017 Orders Only Cardiology at [address] [phone] Juliano Acuna PA [facility] [place] [address] ASCVD (arteriosclerotic cardiovascular disease) Social History Tobacco [...] 10:30 AM EDT Hospital Encounter [place] [phone] Navi Montero MD [facility] [place] [address] 08/09/2024 10:30 AM EDT - 08/09/2024 11:15 AM EDT Surgery [place] [address] Navi Montero MD [facility] [place] [address] COLONOSCOPY,SCREENI NG (WRVU 3.26) Scheduled Procedures Name Priority Associated Diagnoses Date/Ti me COLONOSCOPY,SCREENING (WRVU 3.26) polyps 08/09/2024 10:30 AM EDT documented as of this encounter Visit Diagnoses Diagnosis ASCVD (arteriosclerotic cardiovascular disease) Unspecified cardiovascular disease documented in this encounter Care Teams Siphoner Relationship Specialty Start Date End Date Vel Santos MD [address] [place] [phone] PCP - General 09/24/10 06/04/23 documented as of this encounter
--- OUTSIDE RECORDS SUMMARY | 2024-07-19 22:18 | XMS_ITS | Encounter Summary ---
Author Organization [facility] [place] [address] Care Team Providers Care Transcript Evaluator Name Role Phone Vel Santos MD Primary Care Provider [phone] Reason for Referral * Consultation (Routine) - Specialty Diagnoses / Procedures Referred By Yi cummings Referred To Contact Cardiac Rehabilitation Diagnoses S/P angioplasty with stent Adrian Rubio MD [facility] [place] [address] Referral ID Status Reason Start Date Expiration Date V isits Requested Visits Authorized [id number] Consult, Test & Treat 04/21/2017 10/18/2017 36 36 Reason for Visit * Auth/Cert Specialty Diagnoses / Procedures Referred By Yi cummings Referred To Contact Diagnoses Atherosclerotic heart disease of torres martinez coronary artery without angina pectoris ASCVD Procedures PRO CATH PLMT LEFT HEART CATH & ARTS W/INJ & ANGIO IMG S&I CARDIAC CATHETERIZATION Referral ID Status Reason Start Date Expiration Date Visits Re quested Visits Authorized [id number] 1 1 Encounter Details Date Type Department Care Team (Latest Contact Info) Description 04/20/2017 8:06 AM EDT - 04/21/2017 11:17 AM EDT Hospital Encounter Intermediate [place] [address] Adrian Rubio MD [facility] [place] [address] ASCVD (arteriosclerotic cardiovascular disease); S/P angioplasty with stent Discharge Disposition: Home Social History Tobacco Use [...] Sign Reading Time Taken Comments Blood Pressure 127/75 04/21/2017 7:36 AM EDT Pulse 57 04/21/2017 5:00 AM EDT Temperature 36.4 ??C (97.5 ??F) 04/21/2017 7:36 AM ED T Respiratory Rate 18 04/21/2017 7:36 AM EDT Oxygen Saturation 95% 04/21/2017 7:36 AM EDT Inhaled Oxygen Concentration - - Weight 129.2 kg (284 lb 13.4 oz) 04/21/2017 6:17 AM EDT Height 180.3 cm (5' 11) 04/20/2017 8:40 AM EDT Body Mass Index 39.73 04/20/2017 8:40 AM EDT documented in this encounter Discharge Summaries * Lita Alberts MD - 04/21/2017 10:08 AM EDT Discharge Summary Patient Name: Roland Vega Patient Age: 67 y.o. Language: Lithuanian Race: White Ethnicity: Not nor Admit date: 04/20/2017 Discharge date and time: 04/21/2017 Attending Physician: Adrian Rubio MD Discharge Physician: Adrian Rubio MD Follow-up Recommendations for Providers: - dual antiplatelet regimen as follows: - aspirin 81 mg daily lifelong - clopidogrel 75 mg daily for 6 months after PCI - while on plavix recommend use of pantoprazole instead of omeprazole; prescription provided - recommend follow up with cardiology in 3-4 weeks; Dr Hussain Shane Inpatient Provider Contact Information: Adrian Rubio MD - attending Discharge Diagnoses (Hospital Problems) and Secondary Diagnoses (Chronic Problems): Active Hospital Problems Diagnosis ??? S/P angioplasty with stent Resolved Hospital Problems Diagnosis Date Resolved No resolved problems to display. Active Non-Hospital Problems Diagnosis ??? Peripheral neuropathy Probable small fiber neuropathy [...] the same rate. ??? Asthma ??? Rheumatoid arthritis ??? Malignant neoplasm of prostate S/p radical prostatectomy Dec 2004 ??? Headache ??? Chronic back pain ??? Depression On [...] asc aortic dilation ??? CIS - CIDP Operations/Major Procedures: Operations: Procedure(s) with comments: CARDIAC CATHETERIZATION - Procedure: Coronary Angiography History of Presentation: Mr Vega has known CAD s/p NSTEMI with PCI to RCA in 2010, HTN, HLD, and tobacco use, who was referred for cardiac catheterization for progressive anginal symptoms and abnormal stress test. He underwent cardiac catheterization on 04/20/2017 via a right radial arteriotomy, with successful placement of drug eluting stents to the RPDA, OM1 and Diagonal 1. Hospital Course: The patient was admitted following cardiac catheterization for overnight monitoring and observation. The patient did well overnight without significant chest pain or arrhythmias on telemetry. The right radial access site was evaluated and the radial pulse was palpable with no evidence of vascular co mpromise to the right hand. Cardiac biomarkers and a repeat ECG were reviewed with no evidence of active ischemia. VS and renal function remained stable. The patient ambulated with nursing without chest discomfort or exertional dyspnea. The patient met criteria for discharge, and was released home in stable condition. Functional and Cognitive Status: Independent in ALDs and IADLs, A&O x 3, at baseline Important Studies and Lab Data: Labs: Lab Results Component Value Date WBC 6.0 04/20/2017 HGB 16.6 (H) 04/20/2017 HCT 50.0 (H) 04/20/2017 PLATELET 184 04/20/2017 No results for input(s): INR in the last 168 hours. Lab Results Component Value Date NA 141 04/20/2017 K 4.3 04/20/2017 CL 103 04/20/2017 CO2 25 04/20/2017 BUN 17 04/20/2017 CREATININE 1.05 04/20/2017 Recent Labs 04/20/17 1628 CK 188 TROPONINT <0.03 Lab Results Component Value Date CHLPL 157 11/13/2010 HDL 25 (L) 11/13/2010 CHOLHDL 6.3 11/13/2010 TRIG 329 (H) 11/13/2010 LDLCHOL 66 11/13/2010 Pending Studies and Lab Data: None Discharge Conditions/Prognosis: Good Discharge to: Home Updated Allergies/ADRs: Allergies Allergen Reactions ??? Cis Free Text Allergy Swordfish. CIS - Anaphylaxis ??? Cis Free Text Allergy Swordfish. CIS - Anaphylaxis ??? Lisinopril Angioedema Tongue swelling ??? Sulfa (Sulfonamide Antibiotics) CIS - Anaphylaxis, CIS - Anaphylaxis, CIS - Anaphylaxis ??? Hydroxychloroquine Sulfate CIS - visual changes, CIS - visual changes ??? Nsaids (Non-Steroidal Anti-Inflammatory Drug) CIS - swelling, CIS - swelling Immunizations Given this Hospitalization: Immunization History Administered Date(s) Administered ??? Influenza Vaccine, Whole 08/02/2010 Discharge Medications: Your Medications Notice Some of the medications listed here do not show instructions, such as how often to take the medication. Ask your doctor or nurse how to use these medications. Specifically ask about this and similar medications: [place]-3 Fatty Acids-Vitamin E (OMEGA-3 FISH OIL) 1,000-5 mg-unit Cap New Medications Dose Details clopidogrel 75 mg Tab Commonly known as: PLAVIX Take 1 tablet by mouth daily. 75 mg Quantity: 90 tablet Refills: 1 pantoprazole 40 mg Tbec Commonly known as: PROTONIX Take 1 tablet by mouth daily. 40 mg Quantity: 90 tablet Refills: 3 Continued medications, unchanged Dose Details Acetylcarnitine 500 mg Cap Take 1 capsule by mouth daily. 1 capsule Refills: 0 aspirin 81 mg Tbec Take 81 mg by mouth daily. 81 mg Refills: 0 BUPROBAN 150 mg Tb12 Take 150 mg by mouth 2 times daily. Generic drug: buPROPion 150 mg Refills: 0 coQ10 (ubiquinol) 100 mg Cap Take 1 capsule by mouth daily. 1 capsule Refills: 0 diaZEPam 5 mg Tab Commonly known as: VALIUM Take 5 mg by mouth every 6 hours as needed for Anxiety. 5 mg Refills: 0 ketoconazole 2 % Sham Commonly known as: NIZORAL shampoo, rinse after 5-10 min, daily for flares or weekly for prevention. Quantity: 120 mL Refills: 3 LIPITOR 40 mg Tab 40 MG = 1 Tablet(s), PO, Once daily Generic drug: atorvastatin Refills: 0 loratadine 10 mg Tab Commonly known as: CLARITIN Take 10 mg by mouth daily. 10 mg Refills: 0 meTOPROLOL succinate 100 mg Tablet sr Commonly known [...] 3 OMEGA-3 FISH OIL 1,000-5 mg-unit Cap ?nk?wn!?? Generic drug: [place]-3 Fatty Acids-Vitamin E Refills: 0 testosterone enanthate 200 mg/mL Oil Commonly known as: DELATESTRYL Inject into the muscle every 7 days. Patient injects 1.25 cc weekly Refills: 0 STOPPED Medications omeprazole 20 mg Cpdr Commonly known as: PriLOSEC Smoking Status at Discharge: History Smoking Status ??? Former Smoker ??? Quit date: 08/10/2010 Smokeless Tobacco ??? Never Used Instructions Given to Patient at Discharge: Patient Instructions Cardiology Instructions Call your doctor if: Chest pain, dyspnea, pain or swelling in legs occurs. If you have non-emergent questions between now and the time of your follow up appointments: -During 8am-5pm Thursday through Thursday call [phone] to speak with a nurse in the cardiology clinic -All other times call [phone] and ask to speak to the beet worker nurse practitioner physicians assistant. MEDICATIONS - while on plavix we have switched your omeprazole to pantoprazole - you need to be on daily Plavix for at least 6 months and aspirin for lifetime to help prevent clots forming inside of your stent. - keep nitroglycerin with you at all times, if you have chest pain, can take 1 tablet under your tongue every 5 minutes up to 3 tablets. If your pain does not resolve you need to call 911. Return to work/ usual actvities: 1 week, as tolerated. Do not lift anything greater than 1 gallon for milk for 1 week You can shower the day after your procedure, but don't take any tub baths or soak in pools for 1 week after your procedure. Driving: No driving for 48 hours after catheterization. Follow up Appointments: Primary care provider: Cardiology: Vel Santos MD [phone] Follow up as planned or as needed. Dr. Hussain Shane Call to confirm follow-up General Instructions None Future Appointments and Orders Future Orders Complete By Expires Referral to Cardiac Rehab [MYR500 Custom] As directed Process Instructions: If no progress note charted, please enter Clinical details in comments. Scheduling Instructions: Questions: My question or request is: s/p PCI cardiac rehab either at [facility] or [facility] Discharge References/Attachments None documented in this encounter Discharge Instructions * Patient Instructions* Lita Alberts MD - 04/20/2017 12:42 PM EDT Cardiology Instructions Call your doctor if: Chest pain, dyspnea, pain or swelling in legs occurs. If you have non-emergent questions between now and the time of your follow up appointments: -During 8am-5pm Thursday through Thursday call [phone] to speak with a nurse in the cardiology clinic -All other times call [phone] and ask to speak to the beet worker nurse practitioner physicians assistant. MEDICATIONS - while on plavix we have switched your omeprazole to pantoprazole - you need to be on daily Plavix for at least 6 months and aspirin for lifetime to help prevent clots forming inside of your stent. - keep nitroglycerin with you at all times, if you have chest pain, can take 1 tablet under your tongue every 5 minutes up to 3 tablets. If your pain does not resolve you need to call 911. Return to work/ usual actvities: 1 week, as tolerated. Do not lift anything greater than 1 gallon for milk for 1 week You can shower the day after your procedure, but don't take any tub baths or soak in pools for 1 week after your procedure. Driving: No driving for 48 hours after catheterization. Follow up Appointments: Primary care provider: Cardiology: Vel Santos MD [phone] Follow up as planned or as needed. Dr. Hussain Shane Call to confirm follow-up documented in this encounter Medications at Time of Discharge Medication Sig Dispensed Refills Start Date End Date clopidogrel (PLAVIX) 75 mg Tablet Take 1 [...] tablet by mouth daily. 90 tablet 3 04/21/2017 04/13/2018 aspirin 81 mg Tablet, Delayed Release (E.C.) Take 81 mg by mouth daily. 08/11/2018 nystatin (MYCOSTATIN) Cream Apply to affected areas on the face twice daily as needed. 30 g 3 08/20/2015 12/10/2023 Acetylcarnitine 500 mg Capsule Take 1 capsule by mouth daily. 08/10/2018 testosterone enanthate (DELATESTRYL) 200 mg/mL Oil Inject into the muscle every 7 days. Patient injects 1.25 cc weekly 12/10/2023 ketoconazole (NIZORAL) 2 % Shampoo shampoo, rinse after 5-10 min, daily for flares or weekly for prevention. 120 mL 3 08/10/2015 08/12/2023 [place]-3 Fatty Acids-Vitamin E (OMEGA-3 FISH OIL) 1,000-5 mg-unit Cap 11/13/2010 09/09/20 18 atorvastatin (LIPITOR) 40 mg tablet 40 MG = 1 Tablet(s), PO, Once daily 11/13/2010 08/12/2023 metoprolol succinate (TOPROL-XL) 100 mg XL tablet Take by mouth. 11/13/2010 08/12/2023 documented as of this encounter Progress Notes * Lilly Bishop RN - 04/21/2017 10:07 AM EDT Up ambulating in the hallway when pt. stated he was having left sided chest discomfort /10 described as sharp- stabbing' localized & intermittent. This pain has been going on for about an hour.Pain does not change with inspiration or palpitation. VVS. EKG completed this morning. Pt. wondering if its GI r/t to taking percocet last night. * Lita Alberts MD - 04/21/2017 10:03 AM EDT After being seen this morning, Mr Vega reported to his nurse that he had been experiencing some constant left sided chest discomfort. This was unchanged by walking or exerting. I re-evaluated Mr Vega. He has an ache along his left and left lateral chest wall, extending into the submammary and axillary area. Unchanged by exertion or rest. Minimally pleuritic. Now improving with onset after taking his morning medications. Not similar to the dyspnea and chest discomfort he had experienced prior to his cardiac cath. On palpation he reported that the ache seemed to move locations. AM EKG which was done during time of symptoms, telemetry and lab work were all reviewed. The ache being described is unlikely cardiac in origin. Reviewed warning signs and symptoms that would be morerelated to his cardiac status for which he should seek medical attention. He showed good understanding of his condition. He may proceed with discharge home. * Adrian Rubio MD - 04/21/2017 8:46 AM EDT Inpatient Interventional Cardiology Discharge Day Note Patient Name: Roland Vega Service: interventional cardiology Responsible Attending: Adrian Rubio MD Reason for continued hospitalization: Overnight observation after PCI Pending discharge today Active Problems: Active Hospital Problems Diagnosis ??? S/P angioplasty with stent Resolved Hospital Problems Diagnosis Date Resolved No resolved problems to display. Interval History: - uneventful night - no angina or dyspnea - no access site pain - no arrhythmia on telemetry Telemetry: reviewed Meds: ??? aspirin 81 mg Oral Daily ??? atorvastatin 40 mg Oral QPM ??? buPROPion 150 mg Oral BID ??? loratadine 10 mg Oral Daily ??? meTOPROLOL succinate 100 mg Oral Daily ??? clopidogrel 75 mg Oral Daily ??? pantoprazole 40 mg Oral Daily Physical Exam: Vital Signs: reviewed Physical Exam Gen: NAD HEENT: No pallor, no jaundice CV: RRR, no m/g/r, JVP at 7 cmH2O Pulm: CTAB, no w/r/r Abd: Soft, NT, ND, +BS Vasc: 2+ radial and femoral pulses bilat. Access site c/d/i without hematoma or ecchymosis, drsg c/d/i Extr: Wwp, no c/c/e Lab Comments: Lab Results Component Value Date WBC 6.0 04/20/2017 HGB 16.6 (H) 04/20/2017 HCT 50.0 (H) 04/20/2017 MCV 89.0 04/20/2017 PLATELET 184 04/20/2017 Lab Results Component Value Date CREATININE 1.05 04/20/2017 BUN 17 04/20/2017 NA 141 04/20/2017 K 4.3 04/20/2017 CL 103 04/20/2017 CO2 25 04/20/2017 Lab Results Component Value Date CK 188 04/20/2017 TROPONINT <0.03 04/20/2017 Pertinent Radiographic/Diagnostic Results: ECG: reviewed Discharge Medication Checklist: Aspirin continue lifelong Clopidogrel/prasugrel clopidogrel 75mg daily for 6 months Parmjit inhibitor/or ARB Beta Joo continue metoprolol Lipid Lowering continue lipitor Nitroglycerin SL NTG PRN Assessment: Roland Vega is a 67 y.o. male who is POD #1 s/p PCI to PDA, OM, and Diagonal who was admitted overnight for observation. There were no overnight events, patient tolerated ambulating without angina or dyspnea, remained hemodynamically stable, no evidence of active ischemia or vascular complications, stable renal fx. Patient is stable for discharge today. Plan: 1. Discharge today 2. F/U with cardiology in 3-4 weeks: Dr. Hussain Alberts MD Attending Addendum: The patient was seen and examined in conjunction with the resident on rounds. My history, physical exam findings, assessment, and plan are reflected in that note. Lab and relevant imaging data was reviewed and the plan was communicated with the patient and available family. Reviewed medications and plan for discharge. Questions answered and plan reviewed. Adrian Rubio MD, [facility] Attending Skid Machine Operator Pager [phone] documented in this encounter H&P Notes * Adrian Rubio MD - 04/20/2017 11:36 AM EDT Post-PCI Admission History and Physical PCP: Vel Santos MD Referring: Hussain Shane MD Date of Admission: 04/20/2017 Admission Diagnosis: S/p PCI Problem List: Patient Active Problem List Diagnosis ??? Peripheral neuropathy Overview Note: Probable small fiber neuropathy based on nerve conduction study. Negative fat pad biopsy 2005. Stocking-glove distribution of symptoms. ??? History of syncope Overview Note: 2005 ECG [...] the same rate. ??? Asthma ??? Rheumatoid arthritis ??? Malignant neoplasm of prostate Overview Note: S/p radical prostatectomy Dec 2004 ??? Headache ??? Chronic back pain ??? Depression Overview Note: On testosterone ??? Hyperlipidemia Overview Note: On statins Changed to lipitor given NSTEMI on pravachol with LDL 66 ??? Gastroesophageal reflux Overview Note: Changed to protonix given newly added plavix dosing ??? ASCVD (arteriosclerotic cardiovascular disease) Overview Note: ALY, NYHA Class III, progressive March 2017 [...] asc aortic dilation ??? CIS - CIDP HPI: This 67 y.o. male is admitted with a chief complaint of CAD s/p PCI. I have reviewed the available records, interviewed and examined the patient. This patient is admitted post PCI for IV hydration, pain management, access site management in the setting of anticoagulation, serial cardiac biomarker monitoring, telemetry monitoring, evaluation oftheir medical condition, and cardiac rehabilitation. ROS/PMHx/Fam Hx/Soc Hx: Reviewed, see outpatient note. Physical Exam BP 138/87 Pulse 61 Temp 36.4 ??C (97.5 ??F) Resp 16 Ht 180.3 cm (5' 11) Wt (!) 128.7 kg (283 lb 12.8 oz) SpO2 97% BMI 39.58 kg/m2 Gen: Well-appearing, NAD HEENT: No pallor, no jaundice CV: RRR, no m/g/r, JVP at 7 cm H20 Lungs: CTAB, no increased WOB Abd: Soft, NTND, +NABS Ext: Wwp, no c/c/e Vasc: 2+ radial and femoral pulses, access site c/d/i Labs: Lab Results Component Value Date WBC 6.0 04/20/2017 HGB 16.6 (H) 04/20/2017 HCT 50.0 (H) 04/20/2017 MCV 89.0 04/20/2017 PLATELET 184 04/20/2017 Lab Results Component Value Date CREATININE 1.05 04/20/2017 BUN 17 04/20/2017 NA 141 04/20/2017 K 4.3 04/20/2017 CL 103 04/20/2017 CO2 25 04/20/2017 Lab Results Component Value Date CK 87 11/13/2010 TROPONINT 0.08 (H) 11/13/2010 Assessment/ Plan: #CAD, s/p PCI to PDA, OM, and Diagonal - Admit for overnight monitoring - Telemetry, serial ECGs, cycle cardiac biomarkers - Dual antiplatelet therapy - IVF - Monitor access site - Cardiac rehab consult - Anticipate discharge in am Lita Alberts MD Attending Addendum: The patient was seen and examined in conjunction with the resident on rounds. My history, physical exam findings, assessment, and plan are reflected in that note. Lab and relevant imaging data was reviewed and the plan was communicated with the patient and available family. Admit for post PCI monitoring. Adrian Rubio MD, [facility] Attending Skid Machine Operator Pager [phone] * Adrian Rubio MD - 04/20/2017 9:02 AM EDT Complete Adult Pre-Procedural H&P Patient Name: Roland Vega : [id number] 67 y.o. MR#: [id number] Chief Complaint: SOB with exertion. Planned Procedure: Right and left heart catheterization History of Present Illness: HPI Known CAD with progressive symptoms and abnormal stress test. Stent to the RCA. Previous tobacco HTN HLP CIPD I have reviewed and updated as necessary the Medical, Surgical, Family, and Social History capturedwithin the EMR. I have reviewed and updated as necessary the patient's allergies and current medication list withinthe EMR. Review of Systems: Review of Systems Physical Exam: Vitals: 04/20/17 0840 BP: 138/87 Pulse: 61 Resp: 16 Temp: 36.4 ??C (97.5 ??F) SpO2: 97% Weight: (!) 128.7 kg (283 lb 12.8 oz) Height: 180.3 cm (5' 11) Physical Exam RR, soft SURINDER 2+ radial pulse, normal Allens test abd soft Nt 1+ pedal pulses Slight resting tremors. Assessment and Plan: CAD Progressive SOB Positive stress test Cath risk reviewed as outlined in the consent form. Planning for right and left via the radial approach. Risks reviewed and informed consent obtained. Ready to proceed. Adrian Rubio MD 04/20/2017 documented in this encounter Miscellaneous Notes * Consult Note - Grace Whelan RN - 04/20/2017 3:51 PM EDT Roland Vega is s/p PCI to D1, OM1, RPDA. He was seen today by Cardiac Rehabilitation for: Activity evaluation - No his lunch had just arrived; RN will do this tyson Educational packet regarding CAD, cardiac risk factors, and managing angina given to the patient. Heart diagram reviewed. Mediterranean diet guidelines and weight management briefly reviewed. He has gained 40 lbs recentlyand states he has tried to do well with his diet. Being worked up for endo issues Given parameters for home exercise. His mobility is a bit limited by periph neuropathy. He does hada [employer] Step machine at home which he tolerates well but hasn't been using regularly. Is able to nieves 8-10 min walks which I enc hime to do as well as the NuStep Participation to an outpatient cardiac rehabilitation program at Either [facility] or [facility]. [place]ants to visit each of those programs before he decides. He will call us once he knows and we'll fax order and DCS was discussed. Patient agrees to a referral to one of these program. . documented in this encounter Plan of Treatment Upcoming Encounters Date Type Department Care Team (Late st Contact Info) Description 08/09/2024 10:30 AM EDT Hospital Encounter [place] [address] Navi Montero MD [facility] [place] [address] 08/09/2024 10:30 AM EDT - 08/09/2024 11:15 AM EDT Surgery [place] [address] Navi Montero MD [facility] [place] [address] COLONOSCOPY,SCREENI NG (WRVU 3.26) Scheduled Procedures Name Priority Associated Diagnoses Date/Ti me COLONOSCOPY,SCREENING (WRVU 3.26) polyps 08/09/2024 10:30 AM EDT Scheduled Referrals Name Type Priority Associated Diagnoses Orde r Schedule Referral to Cardiac Rehab Outpatient Referral Routine S/P angioplasty with stent Ordered: 04/21/2017 documented as of this encounter Procedures Procedure Name Priority Date/Time Associated Diagnosis Comments DIRECTOR RADIATION ONCOLOGY SCAN 04/22/2017 12:00 AM EDT EKG 12-LEAD Routine 04/21/2017 7:40 AM EDT ASCVD (arteriosclerotic cardiovascular disease) CARDIAC ENZYMES ([facility]) STAT 04/20/2017 4:28 PM EDT EKG 12-LEAD Routine 04/20/2017 12:00 PM EDT ASCVD (arteriosclerotic cardiovascular disease) POINT OF CARE BLOOD GAS HISTORICAL Routine 04/20/2017 10:06 AM EDT EKG 12-LEAD Routine 04/20/2017 8:52 AM EDT ASCVD (arteriosclerotic cardiovascular disease) BMP W/FASTING GLUCOSE STAT 04/20/2017 8:20 AM EDT ASCVD (arteriosclerotic cardiovascular disease) HEMOGRAM STAT 04/20/2017 8:20 AM EDT ASCVD (arteriosclerotic cardiovascular disease) DIFFERENTIAL, AUTOMATED STAT 04/20/2017 8:20 AM EDT ASCVD (arteriosclerotic cardiovascular disease) CBC (WITH DIFF) STAT 04/20/2017 8:20 AM EDT ASCVD (arteriosclerotic cardiovascular disease) documented in this encounter Results * SCAN DOC: DIRECTOR RADIATION ONCOLOGY (04/22/2017 12:00 AM EDT) Anatomical Region Laterality Modality Other Narrative 04/22/2017 12:00 AM EDT Ordered by an unspecified provider. Scanning Provider MEDIA MGR SCAN EXT O RDR/RSLT * EKG 12 Lead (04/21/2017 7:40 AM EDT) Ventricular rate 56 BPM MUSE SYSTEM Atrial Rate 56 BPM MUSE SYSTEM P-R Interval 174 ms MUSE SYSTEM QRS Duration 126 ms MUSE SYSTEM Q-T Interval 448 ms MUSE SYSTEM QTC Calculated (Bezet) 432 ms MUSE SYSTEM Calculated P [place] 33 degrees MUSE SYSTEM Calculated R [place] -73 degrees MUSE SYSTEM Calculated T [place] 0 degrees MUSE SYSTEM INTERPRETATION ??Sinus bradycardia Left axis deviation Non-specific intra-ventricu lar conduction block Abnormal ECG When compared with ECG of 20-APR-2017 12:00, Premature ventricular complexes are no longer Present Confirmed by MD Loaiza Jon ([id number]) on 04/21/2017 3:24:22 PM MUSE SYSTEM 04/21/2017 7:40 AM EDT 04/21/2017 3:24 PM EDT Adrian Rubio MD ECG ORDERABLES MUSE SYSTEM * Cardiac Enzymes (04/20/2017 4:28 PM EDT) Troponin-T <0.03 <=0.03 ng/mL [facility] Comment: 0.03 ng/mL: Represents the 99th percentile upper reference limit for normals. >0.03 ng/mL: Elevated cardiac troponin T level indicative of myocardial damage. Diagnosis of acute, evolving or recent HI requires a typical rise and gradual fall of cTnT with at least ONE of the following: a) Ischemic symptoms b) Development of pathologic Q waves on the ECG c) ECG changes indicative of eschemia (S-T segment elevation/depression) d) Coronary artery intervention Serial bloods should be obtained for testing on admission, at 6 to 9 hrs and again at 12 to 24 hrs if earlier samples are negative and the clinical index of suspicion is high. Reference: [Myocardial infarction redefined? a consensus document of the Joint Society of Cardiology/[place] [employer] Committee for the redefinition of myocardial infarction. ??Journal of the [place] [employer] 2000; 36: 959-969] Creatine Kinase 188 0 - 200 unit/L [facility] Blood specimen (specimen) 04/20/2017 4:28 PM EDT 04/20/2017 4:35 PM EDT Narrative Resulting Agency Comment Spec In Lab Adrian Rubio MD CHEMISTRY ORDERABLES Performing Organization Address [facility] Co de Phone Number [facility] [place] [phone] * EKG 12 Lead (04/20/2017 12:00 PM EDT) Ventricular rate 57 BPM MUSE SYSTEM Atrial Rate 57 BPM MUSE SYSTEM P-R Interval 178 ms MUSE SYSTEM QRS Duration 128 ms MUSE SYSTEM Q-T Interval 464 ms MUSE SYSTEM QTC Calculated (Bezet) 451 ms MUSE SYSTEM Calculated P [place] 15 degrees MUSE SYSTEM Calculated R [place] -62 degrees MUSE SYSTEM Calculated T [place] -14 degrees MUSE SYSTEM INTERPRETATION Sinus bradycardia Occasional Premature ventricular complexes Left bundle branch block Abnormal ECG When compared with ECG of 20-APR-2017 08:52, No significant change was found Confirmed by Taiwo Stahl MD ([id number]) on 04/20/2017 4:28:19 PM MUSE SYSTEM 04/20/2017 12:0 0 PM EDT 04/20/2017 4:28 PM EDT Adrian Rubio MD ECG ORDERABLES Performing Organization Address [facility]/ZIP Co de Phone Number MUSE SYSTEM * (ABNORMAL) Point of Care Blood Gas Historical (04/20/2017 10:06 AM EDT) pH, POC 7.39 7.35 - 7.45 [facility] pCO2, POC 42 35 - 45 mmHg [facility] pO2, POC 62(L) 85 - 104 mmHg [facility] Base Excess, POC 0.0 -3.0 - 3.0 mmol/L [facility] Bicarbonate, POC 25.2 20.0 - 26.0 mmol/L [facility] Sodium, POC 139 135 - 145 mmol/L [facility] POC Potassium 3.9 3.5 - 5.0 mmol/L [facility] Ionized Calcium, POC 1.24 1.15 - 1.33 mmol/L [facility] POC Hematocrit 49.0 40.0 - 51.0 % [facility] POC Calc Hgb 16.7 13.7 - 17.5 gm/dL [facility] Comment:The calculation of h emoglobin from hematocrit assumes a normal MCHC. POC Bgas Loc CC LAB [facility] Blood specimen (specimen) 04/20/2017 10:06 AM EDT 04/24/2017 8:11 AM EDT Adrian Rubio MD CHEMISTRY ORDERABLES [facility] [place] [address] * EKG 12 Lead (04/20/2017 8:52 AM EDT) Ventricular rate 63 BPM MUSE SYSTEM Atrial Rate 63 BPM MUSE SYSTEM P-R Interval 176 ms MUSE SYSTEM QRS Duration 124 ms MUSE SYSTEM Q-T Interval 432 ms MUSE SYSTEM QTC Calculated (Bezet) 442 ms MUSE SYSTEM Calculated P [place] 41 degrees MUSE SYSTEM Calculated R [place] -73 degrees MUSE SYSTEM Calculated T [place] -10 degrees MUSE SYSTEM INTERPRETATION Sinus rhythm Occasional Premature ventricular complexes Left anterior fascicular block Nonspecific ST and T wave abnormality Abnormal ECG When compared with ECG of 13-NOV-2010 07:44, Premature ventricular complexes are now Present Confirmed by Taiwo Stahl MD ([id number]) on 04/20/2017 4:27:55 PM MUSE SYSTEM 04/20/2017 8:52 AM EDT 04/20/2017 4:27 PM EDT Adrian Rubio MD ECG ORDERABLES MUSE SYSTEM * Differential, Automated (04/20/2017 8:20 AM EDT) Neutrophil % 46.8 % [facility] Neutrophil Absolute 2.82 1.70 - 6.10 x10(3)/[facility] Lymph % 38.6 % [facility] Lymphocytes Abs 2.3 0.9 - 3.2 x10(3)/[facility] Monocyte % 12.6 % [facility] Monocyte Abs 0.8 0.3 - 0.9 x10(3)/[facility] Eos % 1.2 % [facility] Eosinophils Abs 0.1 0.0 - 0.4 x10(3)/[facility] Basophil % 0.5 % [facility] Baso Absolute 0.0 0.0 - 0.1 x10(3)/[facility] Immature Gran % 0.30 % [facility] Comment: Immature granulocytes(IG's)percentage and absolute count will include metamyelocytes, myelocytes, and promyelocytes. Blood smears from CBCs yielding IG's will be scanned manually for concordance. If this scan disagrees with the automated IG or if promyelocytes are noted, a manual differential will be performed. Immature Gran Absolute 0.02 0.00 - 0.04 x10(3)/[facility] Blood specimen (specimen) 04/20/2017 8:20 AM EDT 04/20/2017 8:22 AM EDT Narrative Resulting Agency Comment Spec In Lab Adrian Rubio MD HEMATOLOGY ORDERABLE S [facility] [place] [address] * (ABNORMAL) Hemogram (04/20/2017 8:20 AM EDT) White Blood Cell 6.0 4.0 - 9.5 x10(3)/ L [facility] Red Blood Cell 5.62(H) 4.58 - 5.54 x10(6)/[facility] Hemoglobin 16.6(H) 13.7 - 16.5 gm/dL [facility] Hematocrit 50.0(H) 40.5 - 48.5 % [facility] Mean Cell Volume 89.0 82.9 - 93.1 fL [facility] Mean Cell Hemoglobin 29.5 27.5 - 32.1 pg [facility] Mean Cell Hemoglobin Concentration 33.2 32.0 - 35.7 gm/dL [facility] Platelet 184 145 - 357 x10(3)/[facility]ORY RDW Standard Deviation 42.8 36.0 - [address].0 [facility]AT[facility] RDW coefficient of variation 13.1 11.4 - 13.8 % [facility] Mean Platelet Volume 10.0 7.6 - 12.9 [facility] LABORATORY NRBC% auto 0.0 % [facility] NRBC Absolute 0.000 0.000 - 0.000 x10(3)/[facility] Blood specimen (specimen) 04/20/2017 8:20 AM EDT 04/20/2017 8:22 AM EDT Narrative Resulting Agency Comment Spec In Lab Adrian Rubio MD HEMATOLOGY ORDERABLE S [facility] [place] [address] * (ABNORMAL) BMP w/fasting Glucose (04/20/2017 8:20 AM EDT) Pathologist [facility] Glucose Fasting 108(H) 65 - 99 mg/dL [facility] Comment: ?Fasting* Glucose Interpretive Criteria Normal ?65-99 mg/dL Impaired Fasting glucose ?100-125 mg/dL Consistent with Diabetes Mellitus ? >or= 126 mg/dL *Fasting is defined as no caloric intake for at least 8 hours In the absence of unequivocal hyperglycemia a plasma glucose value of >or= 126 mg/dL should be repeated on a subsequent day. Diagnosis and Classification of Diabetes Mellitus, Position Statement from the [place] [employer]. ??Diabetes Care, Volume 33, Supplement 1, Nov 2009 Blood Urea Nitrogen 17 10 - 20 mg/dL [facility] Creatinine 1.05 0.80 - 1.50 mg/dL [facility] Comment: Please note that the pediatric reference intervals supplied above were not validated at [facility]. Results from pediatric patients should be interpreted in conjunction to the patient's age, height and muscle mass. Sodium 141 135 - 145 mmol/L [facility] Potassium 4.3 3.5 - 5.0 mmol/L [facility] Comment: Please note: ??Patients with WBC >100,000 may have falsely elevated Potassium levels. ??For accurate Potassium quantification in these patients send serum separator tube (gold top) for subsequent determinations. ??Contact the Clinical Chemistry Laboratory if there are any questions. Chloride 103 98 - 107 mmol/L [facility] Carbon Dioxide 25 22 - 31 mmol/L [facility] Anion Gap 13 5 - 15 mmol/L [facility] Calcium 9.1 8.5 - 10.5 mg/dL [facility] Est Glomerular Filtration Rate >60 >=60 [facility] Comment: This estimated GFR (eGFR) value was calculated using the MDRD equation which has been validated on patients between the ages of 18 and 70. The MDRD should not be used to assess kidney function in patients < 18 years of age or in patients with extremes of body mass, or in patients with acute kidney failure. This value should be multiplied by 1.2 for patients. For further information please copy and paste the following links into your internet browser. http://[email or web address]/DHnkdep [email or web address]://[email or web address] Blood specimen (specimen) 04/20/2017 8:20 AM EDT 04/20/2017 8:22 AM EDT Narrative Resulting Agency Comment Spec In Lab Adrian Rubio MD CHEMISTRY ORDERABLES [facility] [place] [address] documented in this encounter Visit Diagnoses Diagnosis ASCVD (arteriosclerotic cardiovascular disease) Unspecified cardiovascular disease S/P angioplasty with stent Postsurgical percutaneous transluminal coronary angioplasty status S/P angioplasty with stent Postsurgical percutaneous transluminal coronary angioplasty status documented in this encounter Admitting Diagnoses Diagnosis S/P angioplasty with stent Postsurgical percutaneous transluminal coronary angioplasty status documented in this encounter Administered Medications Inactive Administered Medications - up to 3 most recent administrations Medication Order MAR Action Action Date Dose Rate Site acetaminophen (TYLENOL) tablet 650 mg 650 mg, Oral, EVERY 6 HOURS PRN, Starting on Thu04/20/17 at 1141, Until Thu04/21/17 at 1318, Pain, Mild Pain, Maximum dose of acetaminophen is 4000 mg from all sources in 24 hours., Routine Given 04/20/2017 2:08 PM EDT 650 mg aspirin EC tablet 81 mg 81 mg, Oral, DAILY, First dose on Thu04/21/17 at 0900, Until Discontinued, Routine Given 04/21/2017 8:27 AM EDT 81 mg atorvastatin (LIPITOR) tablet 40 mg 40 mg, Oral, EVERY EVENING, First dose on Thu04/20/17 at 1700, Until Discontinued, Routine Given 04/20/2017 4:36 PM EDT 40 mg buPROPion (WELLBUTRIN SR or ZYBAN) SR tablet 150 mg 150 mg, Oral, 2 TIMES DAILY, First dose on Thu04/20/17 at 2100, Until Discontinued, DO NOT CRUSH OR OPEN, Routine Given 04/21/2017 8:27 AM EDT 150 mg Given 04/20/2017 8:50 PM EDT 150 mg clopidogrel (PLAVIX) tablet 75 mg 75 mg, Oral, DAILY, First dose on Thu04/21/17 at 0900, Until Discontinued, Routine Given 04/21/2017 8:28 AM EDT 75 mg eptifibatide (INTEGRILIN) 0.75 mg/mL infusion 15 mg/hr (20 mL/hr), Intravenous, CONTINUOUS, Starting on Thu04/20/17 at 1200, Until Thu04/21/17 at 1318, Integrilin IV infusion for total of 12 hours New Bag 04/20/2017 9:32 PM EDT 15 mg/hr 20 mL/hr New Bag 04/20/2017 4:25 PM EDT 15 mg/hr 20 mL/hr Rate/Dose Verify 04/20/2017 12:05 PM EDT 15 mg/hr 20 mL/ hr HYDROcodone-acetaminophen (NORCO) 5-325 mg per tablet 1 tablet 1 tablet, Oral, EVERY 6 HOURS PRN, Starting on Thu04/20/17 at 2235, Until Thu04/21/17 at 1318, Pain, Maximum dose of acetaminophen is 4000 mg from all sources in 24 hours. , Routine meTOPROLOL succinate (TOPROL-XL) XL tablet 100 mg 100 mg, Oral, DAILY, First dose on Thu04/20/17 at 1700, Until Discontinued, DO NOT CRUSH OR OPEN, Routine Given 04/21/2017 8:33 AM EDT 100 mg Given 04/20/2017 4:36 PM EDT 100 mg nitroGLYcerin (NITROSTAT) SL tablet 0.4 mg 0.4 mg, Sublingual, EVERY 5 MIN PRN, Starting on Thu04/20/17 at 1142, Until Thu04/21/17 at 1318, Chest pain, May repeat every 5 minutes for a total of three doses. Notify provider if chest pain not relieved with nitroglycerin. Do not administer nitroglycerin if the patinet has received or taken phosphodiesterase (PDE-5) inhibitors such as sildenafil, tadalafil or vardenafil within the last 24 to 72 hours., Recovery (Recovery-Hospital Unit), Routine oxyCODONE-acetaminophen (PERCOCET) 5-325 mg per tablet 1 tablet 1 tablet, Oral, EVERY 4 HOURS PRN, Starting on Thu04/20/17 at 1902, Until Thu04/20/17 at 2236, Pain, Maximum dose of acetaminophen is 4000 mg from all sources in 24 hours., Routine Given 04/20/2017 7:35 PM EDT 1 tablet pantoprazole (PROTONIX) tablet 40 mg 40 mg, Oral, DAILY, First dose on Thu04/20/17 at 1700, Until Discontinued, DO NOT CRUSH OR OPEN Given 04/21/2017 8:33 AM EDT 40 mg Given 04/20/2017 4:38 PM EDT 40 mg sodium chloride 0.9% infusion 100 mL/hr, Intravenous, CONTINUOUS, Starting on Thu04/20/17 at 1200, Until Thu04/20/17 at 1459, Recovery (Recovery-Hospital Unit) Continued Bag 04/20/2017 12:05 PM EDT 100 mL/hr 100 mL/hr documented in this encounter Active and Recently Administered Medications Times are shown in EDT. Scheduled Medication Order 04/19/2017 04/20/2017 04/21/2017 aspirin EC tablet 81 mg 81 mg, Oral, DAILY, First dose on Thu04/21/17 at 0900, Until Discontinued, Routine 08 (Given - Provid er: Lilly Bishop RN) atorvastatin (LIPITOR) tablet 40 mg 40 mg, Oral, EVERY EVENING, First dose on Thu04/20/17 at 1700, Until Discontinued, Routine 163 (Given - Provider: Lilly Bishpo RN) buPROPion (WELLBUTRIN SR or ZYBAN) SR tablet 150 mg 150 mg, Oral, 2 TIMES DAILY, First dose on Thu04/20/17 at 2100, Until Discontinued, DO NOT CRUSH OR OPEN, Routine 2049 (Given - Provider: Giorgio Carson RN) 08 (Given - Provider: Lilly Bishop RN) clopidogrel (PLAVIX) tablet 75 mg 75 mg, Oral, DAILY, First dose on Thu04/21/17 at 0900, Until Discontinued, Routine 0828 (Given - Provid er: Lilly Bishop RN) loratadine (CLARITIN) tablet 10 mg 10 mg, Oral, DAILY, First dose on Thu04/21/17 at 0900, Until Discontinued, Routine 0900 (Not Given - Provider: Lilly Bishop RN - Reason: Patient/family refused) meTOPROLOL succinate (TOPROL-XL) XL tablet 100 mg 100 mg, Oral, DAILY, First dose on Thu04/20/17 at 1700, Until Discontinued, DO NOT CRUSH OR OPEN, Routine 1636 (Given - Provider: Lilly Bishop RN) 0833 (Given - Provider: Lilly Bishop RN) pantoprazole (PROTONIX) tablet 40 mg 40 mg, Oral, DAILY, First dose on Thu04/20/17 at 1700, Until Discontinued, DO NOT CRUSH OR OPEN 1638 (Given - Provider: Lilly Bishop RN) 0833 (Given - Provider: Lilly Bishop RN) Continuous Medication Order 04/19/2017 04/20/2017 04/21/2017 eptifibatide (INTEGRILIN) 0.75 mg/mL infusion 15 mg/hr (20 mL/hr), Intravenous, CONTINUOUS, Starting on Thu04/20/17 at 1200, Until Thu04/21/17 at 1318, Integrilin IV infusion for total of 12 hours 1205 (Rate/Dose Verify - Provider: Emili Florian RN)1625 (New Bag - Provider: Lilly Bishop RN)2132 (New Bag - Provider: Kenya Jaime RN) 0000 (Stopped - Provider: Giorgio Carson RN) sodium chloride 0.9% infusion () 100 mL/hr, Intravenous, CONTINUOUS, Starting on Thu04/20/17 at 1200, Until Thu04/20/17 at 1459, Recovery (Recovery-Hospital Unit) 1205 (Continued Bag - Provider: Emili Florian RN) PRN Medication Order 04/19/2017 04/20/2017 04/21/2017 acetaminophen (TYLENOL) tablet 650 mg 650 mg, Oral, EVERY 6 HOURS PRN, Starting on Thu04/20/17 at 1141, Until Thu04/21/17 at 1318, Pain, Mild Pain, Maximum dose of acetaminophen is 4000 mg from all sources in 24 hours., Routine 1408 (Given - Provider: Emili Florian RN) clopidogrel (PLAVIX) tablet (CANCELED) ONCE PRN, Starting on Thu04/20/17 at 1026, Until Thu04/20/17 at 1440, Intra-Operative (Intra-Procedure), Routine 1026 (Given - Provider: Maria E Ward RN) diaZEPam (VALIUM) tablet 5 mg 5 mg, Oral, EVERY 6 HOURS PRN, Starting on Thu04/20/17 at 1512, Until Thu04/21/17 at 1318, Anxiety, Routine eptifibatide (INTEGRILIN) 0.75 mg/mL infusion (CANCELED) CONTINUOUS PRN, Starting on Thu04/20/17 at 1125, Until Thu04/20/17 at 1440, Cath (Intra-Procedure) 1125 (New Bag - Provider: Adrian Rubio MD)1128 (Canceled Entry - Provider: Adrian Rubio MD) eptifibatide (INTEGRILIN) injection (CANCELED) ONCE PRN, Starting on Thu04/20/17 at 1122, Until Thu04/20/17 at 1440, Cath (Intra-Procedure), Routine 1122 (Given - Provider: Balbina Chamorro RN)1135 (Given - Provider: Balbina Chamorro RN) fentaNYL 50 mcg/mL multi-dose injection (CANCELED) ONCE PRN, Starting on Thu04/20/17 at 0952, Until Thu04/20/17 at 1440, Intra-Operative (Intra-Procedure), Routine 0952 (Given - Provider: Maria E Ward RN) fentaNYL 50 mcg/mL multi-dose injection (CANCELED) ONCE PRN, Starting on Thu04/20/17 at 0959, Until Thu04/20/17 at 1436, Cath (Intra-Procedure), Routine 0959 (Given - Provider: Maria E Ward RN)1023 (Given - Provider: Maria E Ward RN) heparin (porcine) injection (CANCELED) ONCE PRN, Starting on Thu04/20/17 at 1009, Until Thu04/20/17 at 1440, Cath (Intra-Procedure), Routine 1009 (Given - Provider: Maria E Ward RN)1027 (Given - Provider: Maria E Ward RN)1058 (Given - Provider: Maria E Ward RN) HYDROcodone-acetaminophen (NORCO) 5-325 mg per tablet 1 tablet 1 tablet, Oral, EVERY 6 HOURS PRN, Starting on Thu04/20/17 at 2235, Until Thu04/21/17 at 1318, Pain, Maximum dose of acetaminophen is 4000 mg from all sources in 24 hours. , Routine iohexol (OMNIPAQUE) 350 mg/mL solution (CANCELED) ONCE PRN, Starting on Thu04/20/17 at 1124, Until Thu04/20/17 at 1440, Cath (Intra-Procedure), Routine 1124 (Given - Provider: Adrian Rubio MD) midazolam (PF) (VERSED) 1 mg/mL multi-dose injection (CANCELED) ONCE PRN, Starting on Thu04/20/17 at 0952, Until Thu04/20/17 at 1436, Cath (Intra-Procedure), Routine 0952 (Given - Provider: Marai E Ward RN)0959 (Given - Provider: Maria E Ward RN)1023 (Given - Provider: Maria E Ward, RN)1058 (Given - Provider: Maria E Ward RN)1118 (Given - Provider: Balbina Chamorro RN) nitroGLYcerin (NITROSTAT) SL tablet 0.4 mg 0.4 mg, Sublingual, EVERY 5 MIN PRN, Starting on Thu04/20/17 at 1142, Until Thu04/21/17 at 1318, Chest pain, May repeat every 5 minutes for a total of three doses. Notify provider if chest pain not relieved with nitroglycerin. Do not administer nitroglycerin if the patinet has received or taken phosphodiesterase (PDE-5) inhibitors such as sildenafil, tadalafil or vardenafil within the last 24 to 72 hours., Recovery (Recovery-Hospital Unit), Routine nitroGLYcerin 100 mcg/mL intracoronary dilution (CANCELED) ONCE PRN, Starting on Thu04/20/17 at 1008, Until Thu04/20/17 at 1440, Cath (Intra-Procedure), Routine 1008 (Given - Provider: Adrian Rubio MD)1050 (Given - Provider: Adrian Rubio MD)1111 (Given - Provider: Adrian Rubio MD) oxyCODONE-acetaminophen (PERCOCET) 5-325 mg per tablet 1 tablet (CANCELED) 1 tablet, Oral, EVERY 4 HOURS PRN, Starting on Thu04/20/17 at 1902, Until Thu04/20/17 at 2236, Pain, Maximum dose of acetaminophen is 4000 mg from all sources in 24 hours., Routine 1934 (Given - Provider: Giorgio Carson RN) verapamil (ISOPTIN) injection (CANCELED) ONCE PRN, Starting on Thu04/20/17 at 1008, Until Thu04/20/17 at 1440, Administer over 2 Minutes, Cath (Intra-Procedure) 1008 (Given - Provider: Maria E Ward RN) documented in this encounter Care Teams Transcript Evaluator Relationship Specialty Start Date End Date Vel Santos MD [address] [place] [address] [phone] PCP - General 09/24/10 06/04/23 documented as of this encounter
--- OUTSIDE RECORDS SUMMARY | 2024-07-19 22:18 | XMS_ITS | Encounter Summary ---
Author Organization [facility] Address [facility] [place] [address] Care Team Providers Care French Folder Name Role Phone Vel Santos MD Primary Care Provider [phone] Encounter Details Date Type Department Care Team (Latest Contact Info) Description 11/12/2010 2:30 PM EST - 11/13/2010 3:22 PM EST Hospital Encounter Intermediate [place] [address] Kevyn Abdi MD [facility] [place] [address] Discharge Disposition: Home Social History Tobacco Use [...] - Inhaled Oxygen Concentration - - Weight 121.3 kg (267 lb 6.7 oz) 11/12/2010 3:03 PM EST Height 72 cm (2' 4.35) 11/12/2010 3:03 PM EST Body Mass Index 233.93 11/12/2010 3:03 PM EST documented in this encounter Medications at Time [...] E ACETATE (VITAMIN E ORAL) 11/13/2010 08/10/2015 [place]-3 Fatty Acids-Vitamin E (OMEGA-3 FISH OIL) 1,000-5 [...] 10:30 AM EDT Hospital Encounter [place] [phone] Navi Montero MD [facility] [place] [address] 08/09/2024 10:30 AM EDT - 08/09/2024 11:15 AM EDT Surgery [place] [phone] Navi Montero MD [facility] [place] [address] COLONOSCOPY,SCREENI NG (WRVU 3.26) Scheduled Procedures Name Priority Associated Diagnoses Date/Ti me COLONOSCOPY,SCREENING (WRVU 3.26) polyps 08/09/2024 10:30 AM EDT documented as of this encounter Visit Diagnoses Not on filedocumented in this encounter Care Teams French Folder Relationship Specialty Start Date End Date Vel Santos MD [address] [place] [address] [phone] PCP - General 09/24/10 06/04/23 documented as of this encounter
--- OUTSIDE RECORDS SUMMARY | 2024-07-19 22:18 | XMS_ITS | Encounter Summary ---
Author Organization [facility] [place] [address] Care Team Providers Care Veterans Services Specialist Name Role Phone Vel Santos MD Primary Care Provider [phone] Encounter Details Date Type Department Care Team (Late st Contact Info) Description 03/08/2014 9:15 AM EDT - 03/08/2014 10:00 AM EDT [place] [address] Brandy Dickerson MD [facility] [place] [address] COLONOSCOPY, DIAGNOSTIC (WRVU 3.26) Social History Tobacco Use Types Packs/Day Years Used Date Smoking Tobacco: Former Alcohol Use Standard Drinks/Week Comments Yes 14 (1 standard drink = 0.6 oz pu re alcohol) Sex and Gender Information Value Date Recorded Sex Assigned at Not on file Gender Identity Not on file Sexual Orientation Not on file documented as of this encounter Last Filed Vital Signs Vital Sign Reading Time Taken Comments Blood Pressure 118/78 03/08/2014 10:31 AM EDT Pulse 73 03/08/2014 10:31 AM EDT Temperature - - Respiratory Rate 18 03/08/2014 10:31 AM EDT Oxygen Saturation 96% 03/08/2014 10:31 AM EDT Inhaled Oxygen Concentration - - Weight - - Height - - Body Mass Index - - documented in this encounter Discharge Instructions * Discharge Instructions* Raina Miller RN - 03/08/2014 10:32 AM EDT Please call [phone], before 5pm with problems, questions or concerns, after 5pm call the Hospital at [phone] and ask to speak to the Utility Mechanic personal carer and the clicker operator will contactthat person for you. Discharge instructions reviewed with patient who expresses understanding. You may have received medications before and/or during your procedure which effects your judgement and reaction time. Do not drive, operate machinery, drink alcoholic beverages or make important decisions for 24 hours. Be careful on stairs as you may be unsteady on your feet. You may eat a regular diet as tolerated. Do not smoke if you are alone. IV site: Slight redness or tenderness is normal, you can use a warm compress if you would like. If tenderness and/or redness increase or if foul drainage occurs, please contact your Doctor. * Patient Instructions* Brandy Dickerson MD - 03/08/2014 10:24 AM EDT Please see Recommendations in the Provation procedure report which is documented in the procedural note in E-DH. * Attachments The following attachments cannot be sent through Care Everywhere. * COLONOSCOPY : POSTOP ([place]) documented in this encounter Medications at Time of Discharge Medication Sig Dispensed Refills Start Date End Date nitroGLYcerin (NITROSTAT) 0.4 mg SL tablet 0.4 MG = 1 Tablet(s), Sublingual, prn 11/13/2010 Gabapentin, Bulk, 100 % PowdIndications:CIDP (chronic inflammatory demyelinating polyneuropathy) by [facility].(Non-Drug; Combo Route) route 3 times daily. Cleo 10%,linwood 5%,toy 10% apply tid to toes 60 g prn 06/23/2011 08/10/2015 UNABLE TO FIND Apply topically. Med Name: cleo 10% linwood 10 % toy 10 % 2-3 times per day to toes 60 g PRN 06/17/2011 08/10/2015 CIS Free Text Med - topical comopounding for toes 12/18/2010 10/09/ 2015 CIS Free Text Med - calcium citrate w/ D, Mg and kathy 11/13/2010 CIS Free Text Med - immunoglobulin 11/13/2010 08/10/2015 testosterone enanthate (DELATESTRYL) 200 mg/mL injection 11/13/2010 08/10/2015 folic acid (FOLVITE) 400 mcg tablet 11/13/2010 08/10/2015 ascorbic acid (VITAMIN C) 1,000 mg tablet 11/13/2010 08/10/2015 VITAMIN E ACETATE (VITAMIN E ORAL) 11/13/2010 08/10/2015 [place]-3 Fatty Acids-Vitamin E (OMEGA-3 FISH OIL) 1,000-5 mg-unit Cap 11/13/2010 09/09/20 18 aspirin 325 mg tablet 11/13/20102014 pantoprazole (PROTONIX) 20 mg tablet 20 MG = 1 Tablet(s), PO, Once daily 11/13/2010 08/10/2015 atorvastatin (LIPITOR) 40 mg tablet 40 MG = 1 Tablet(s), PO, Once daily 11/13/2010 08/12/2023 ALPHA LIPOIC ACID ORAL 11/13/201008/10 CHOLECALCIFEROL, VITAMIN D3, (VITAMIN D-3 ORAL) 11/13/201008/10 metoprolol succinate (TOPROL-XL) 100 mg XL tablet Take by mouth. 11/13/2010 08/12/2023 lisinopril (PRINIVIL;ZESTRIL) 5 mg tablet 5 MG = 1 Tablet(s), PO, Once daily 11/13/2010 04/17/2017 documented as of this encounter H&P Notes * Brandy Dickerson MD - 03/08/2014 9:50 AM EDT Gastroenterology and Hepatology Pre-Procedure History and Physical Exam Procedure: Colonoscopy: Indication: change in bowel habits, abd pain Patient Active Problem List Diagnosis Code ??? CIS - CAD T999.0 ??? 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 CIS - Depression T999.0 ??? CIS - Dyslipidemia T999.0 ??? CIS - GERD T999.0 EXAM: HEENT: Airway examined, oropharynx clear LUNGS: Clear to auscultation HEART: Regular rate and rhythm, normal S1, S2 ABDOMEN: Normal bowel sounds, soft, non tender, non distended, A/P Proceed with the planned endoscopic procedure. Risks and benefits of the procedure explained to the patient. Consent signed. documented in this encounter Miscellaneous Notes * Miscellaneous - Provider, Scanning - 03/08/2014 9:51 PM EDT * Miscellaneous - Provider, Scanning - 03/08/2014 2:14 PM EDT * Op Note - Brandy Dickerson MD - 03/08/2014 10:24 AM EDT [facility] Operative Note Patient Name: Roland Vega : [id number] MR#: [id number] Case Date: 03/08/2014 Surgeon: Surgeon(s) and Role: * Brandy Dickerson MD - Primary Preoperative diagnosis: persistent abd pain, change in bowels from regular to constipation Full procedure note is documented under the Procedure section of eDH. documented in this encounter Plan of Treatment Upcoming Encounters Date Type Department Care Team (Late st Contact Info) Description 08/09/2024 10:30 AM EDT Hospital En[place] [address] Navi Montero MD [facility] [place] [address] 08/09/2024 10:30 AM EDT - 08/09/2024 11:15 AM EDT [place] [address] Navi Miller MD [facility] [place] [address] COLONOSCOPY,SCREENI NG (WRVU 3.26) Scheduled Procedures Name Priority Associated Diagnoses Date/Ti me COLONOSCOPY,SCREENING (WRVU 3.26) polyps 08/09/2024 10:30 AM EDT documented as of this encounter Procedures Procedure Name Priority Date/Time Associated Diagnosis Comments COLONOSCOPY, DIAGNOSTIC (WRVU 3.26) 03/08/2014 9:50 AM EDT persistent abd pain, change in bowels from regular to constipation COLONOSCOPY Routine 03/08/2014 9:33 AM EDT documented in this encounter Results * COLONOSCOPY (03/08/2014 9:33 AM EDT) COLONOSCOPY [facility] ___ Patient Name: Roland Vega ? Procedure Date: 03/08/2014 9:33 AM ? N: [id number] ? Date of : 1950 ? Age: 63 ? Order #: [id number] ? ___ Procedure: ? Colonoscopy Indications: ? [...] MD, Donnell Fonseca, ? RN, Brenna Cantor, Comprehensive Advisor Referring MD: ?Vel Santos MD Medicines: ? [...] Action Action Date Dose Rate Site fentaNYL 50mcg/mL injection ONCE PRN, Starting on Thu03/08/14 at 0954, Until Thu03/08/14 at 1041, Pain, Intra-Operative (Intra-Procedure), Routine Given 03/08/2014 10:10 AM EDT 25 mcg Given 03/08/2014 10:07 AM EDT 25 mcg Given 03/08/2014 10:04 AM EDT 25 mcg lactated ringers infusion 100 mL/hr, Intravenous, CONTINUOUS, Starting on Thu03/08/14 at 0830, Until Thu03/08/14 at 1041, Endoscopy (Day of Procedure) New Bag 03/08/2014 8:20 AM EDT 100 mL/hr 100 mL/hr midazolam (PF) (VERSED) 1 mg/mL injection ONCE PRN, Starting on Thu03/08/14 at 0954, Until Thu03/08/14 at 1041, Sleep, Intra-Operative (Intra-Procedure), Routine Given 03/08/2014 10:10 AM EDT 0.5 mg Given 03/08/2014 10:07 AM EDT 0.5 mg Given 03/08/2014 10:04 AM EDT 0.5 mg documented in this encounter Active and Recently Administered Medications Times are shown in EDT. Continuous Medication Order 03/06/2014 03/07/2014 03/08/2014 lactated ringers infusion (CANCELED) 100 mL/hr, Intravenous, CONTINUOUS, Starting on Thu03/08/14 at 0830, Until Thu03/08/14 at 1041, Endoscopy (Day of Procedure) 0820 (New Bag - Prov ider: Candice Farias RN) PRN Medication Order 03/06/2014 03/07/2014 03/08/2014 fentaNYL 50mcg/mL injection (CANCELED) ONCE PRN, Starting on Thu03/08/14 at 0954, Until Thu03/08/14 at 1041, Pain, Intra-Operative (Intra-Procedure), Routine 0954 (Given - Provid er: Donnell Fonseca RN)0957 (Given - Provider: Donnell Fonseca RN)1004 (Given - Provider: Donnell Fonseca RN)1007 (Given - Provider: Donnell Fonseca RN)1010 (Given - Provider: Donnell Fonseca RN) midazolam (PF) (VERSED) 1 mg/mL injection (CANCELED) ONCE PRN, Starting on Thu03/08/14 at 0954, Until Thu03/08/14 at 1041, Sleep, Intra-Operative (Intra-Procedure), Routine 0954 (Given - Provid er: Donnell Fonseca RN)0957 (Given - Provider: Donnell Fonseca RN)1004 (Given - Provider: Donnell Fonseca RN)1007 (Given - Provider: Donnell Fonseca RN)1010 (Given - Provider: Donnell Fonseca RN) documented in this encounter Care Teams Veterans Services Specialist Relationship Specialty Start Date End Date Vel Santos MD [address] [place] [phone] PCP - General 09/24/10 06/04/23 documented as of this encounter
--- OUTSIDE RECORDS SUMMARY | 2024-07-19 22:18 | XMS_ITS | Encounter Summary ---
Author Organization [facility] [place] [address] Care Team Providers Care Asbestos Removal Worker Name Role Phone Vel Santos MD Primary Care Provider [phone] Reason for Visit * Reason Onset Date Comments Medication Refill 06/17/2011 Encounter Details Date Type Department Care Team (Late st Contact Info) Description 06/17/2011 [place] [address] Kevin Benavidez MD [facility] [place] [address] Social History Tobacco Use Types Packs/Day Years Used Date Smoking Tobacco: Never Assessed Sex and Gender Information Value Date Recorded Sex Assigned at Not on file Gender Identity Not on file Sexual Orientation Not on file documented as of this encounter Miscellaneous Notes * Telephone Encounter - Nory Cedeño LPN - 06/17/2011 1:21 PM EDT Last appointment: 07/29/10 Medication Name: Med Name: cleo 10% linwood 10 % toy 10 % Dose: to toes 2-3 times a day Date of Last Rx: 12-18-10 Amnt:60 grams # of Refills: documented in this encounter Plan of Treatment Upcoming Encounters Date Type Department Care Team (Late st Contact Info) Description 08/09/2024 10:30 AM EDT Hospital Encounter [place] [address] Navi Montero MD [facility] [place] [address] 08/09/2024 10:30 AM EDT - 08/09/2024 11:15 AM EDT Surgery [place] [address] Navi Montero MD [facility] [place] [address] COLONOSCOPY,SCREENI NG (WRVU 3.26) Scheduled Procedures Name Priority Associated Diagnoses Date/Ti me COLONOSCOPY,SCREENING (WRVU 3.26) polyps 08/09/2024 10:30 AM EDT documented as of this encounter Visit Diagnoses Not on filedocumented in this encounter Care Teams Asbestos Removal Worker Relationship Specialty Start Date End Date Vel Santos MD [address] [place] [phone] PCP - General 09/24/10 06/04/23 documented as of this encounter
--- OUTSIDE RECORDS SUMMARY | 2024-07-19 22:18 | XMS_ITS | Encounter Summary ---
[place] [address] Care Team Providers Care Hospice/Home Health Aide Name Role Phone Vel Santos MD Primary Care Provider [phone] Reason for Visit * Reason Onset Date Comments Medication Refill 06/23/2011 Encounter Details Date Type Department Care Team (Late st Contact Info) Description 06/23/2011 [place] [address] Kevin Benavidez MD [facility] [place] [address] CIDP (chronic inflammatory demyelinating polyneuropathy) (Primary Dx) Social History Tobacco Use Types [...] 10:30 AM EDT Hospital En[place] [address] Navi Montero MD [facility] [place] [address] 08/09/2024 10:30 AM EDT - 08/09/2024 11:15 AM EDT [place] [address] Navi Montero MD [facility] [place] [address] COLONOSCOPY,SCREENI NG (WRVU 3.26) Scheduled Procedures Name Priority Associated Diagnoses Date/Ti nh COLONOSCOPY,SCREENING (WRVU 3.26) polyps 08/09/2024 10:30 AM EDT documented as of this encounter Visit Diagnoses Diagnosis CIDP (chronic inflammatory demyelinating polyneuropathy)- Primary Chronic inflammatory demyelinating polyneuritis documented in this encounter Care Teams Hospice/Home Health Aide Relationship Specialty Start Date End Date Vel Santos MD [address] [place] [phone] PCP - General 09/24/10 06/04/23 documented as of this encounter
--- OUTSIDE RECORDS SUMMARY | 2024-07-19 22:18 | XMS_ITS | Encounter Summary ---
Author Organization [facility] Address [facility] [place] [address] Care Team Providers Care Dancer Or Choreographer Name Role Phone Marco Aleman MD Primary Care Provider [phone] Encounter Details Date Type Department Care Team (Late st Contact Info) Description 09/11/2006 Orders Only Dermatology at [facility] [address] [place] [address] Ernst Robertson MD [facility] [address] [place] [address] Social History Tobacco Use Types Packs/Day Years [...] 10:30 AM EDT Hospital Encounter [place] [phone] Navi Montero MD [facility] [place] [address] 08/09/2024 10:30 AM EDT - 08/09/2024 11:15 AM EDT [place] [phone] Navi Montero MD [facility] [place] [address] COLONOSCOPY,SCREENI NG (WRVU 3.26) Scheduled Procedures Name Priority Associated Diagnoses Date/Ti me COLONOSCOPY,SCREENING (WRVU 3.26) polyps 08/09/2024 10:30 AM EDT documented as of this encounter Procedures Procedure Name Priority Date/Time Associated Diagnosis Comments SURGICAL PATHOLOGY REPORT Routine 09/11/2006 1:07 PM EST documented in this encounter Results * Surgical Pathology Report (09/11/2006 1:07 PM EST) Surgical Pathology Report [id number] ? Location: The signing pathologist has (i) examined the relevant preparation(s) for the specimen(s) and (ii) rendered or confirmed the diagnosis(es). . ?Pathology Surgical Pathology Final Report Clinical Information Specimen Submitted: A - Left side abdomen shave B - Right side abdomen excision Clinical History: A - 1 cm irregular pigmented brown macule with irregular border and ?multiple colors; Nevus R/O atypia B - Abdominal fat pad bx for amyloidosis, please do Congo stain. Fat pad bx ?for amyloid Gross Description A - Labeled/Fixative: A, formalin. Qty/Size/Weight: ?One, 1.0 x 0.8 x 0.2 cm. Tissue Description: ?? Irregular portion of mottled, castro-white to conde-brown ?tissue. Sections/Processi ng: ??The specimen is inked and serially sectioned. ??The ?ends are submitted in (1); the remainder of the ?specimen submitted in (2). ??(T2) B - Labeled/Fixative: B, formalin. Qty/Size/Weight: ?Single, 4.0 x 1.7 x 1.4 cm. Tissue Description: ?? Ellipse of unremarkable, pink-conde skin and underlying ?fatty subcutaneous tissue. Sections/Processi ng: ??The specimen is inked and serially sectioned. ??The ?ends are submitted in (1); the remainder of the ?specimen submitted in (2-8). ?? (T8) ??aje/EJR Microscopic Description Slides reviewed, microscopic description not recorded. 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 B - Skin, no pathologic diagnosis, excision, skin of right side of abdomen (see Comment). CR-0 09/14/06 HAZEL 09/15/06 Verified by: ? Kerry Watkins MD ?Dermatopatholog ist ?(Electronic Signature) The attending pathologist whose signature appears on this report has reviewed all diagnostic slides and has edited the gross and/or microscopic portion of the report in rendering the final pathologic diagnosis. Comment B - Amyloid deposits are not identified. ??Congo red stains on blocks B3 and B5 are negative. RACHEL WATSONIUM 09/11/2006 1:07 PM EST Ernst Robertson MD PATHOLOGY/CYTOL OGY ORDERABLES RACHEL DOMINGUEZ documented in this encounter Visit Diagnoses Not on filedocumented in this encounter Care Teams Dancer Or Choreographer Relationship Specialty Start Date End Date Marco Aleman MD [address] [place] [address] PCP - General Family Medicine 06/05/23 documented as of this encounter
--- OUTSIDE RECORDS SUMMARY | 2024-07-19 22:18 | XMS_ITS | Encounter Summary ---
Author Organization [facility] [place] [address] Care Team Providers Care Lead Material Handler Name Role Phone Vel Santos MD Primary Care Provider [phone] Encounter Details Date Type Department Care Team (Late st Contact Info) Description 04/14/2017 Orders Only Cardiology at [address] [phone] Juliano Acuna PA [facility] [address] ASCVD (arteriosclerotic cardiovascular disease) Social History Tobacco [...] 10:30 AM EDT Hospital Encounter [place] [phone] Navi Montero MD [facility] [place] [address] 08/09/2024 10:30 AM EDT - 08/09/2024 11:15 AM EDT Surgery [place] [phone] Navi Montero MD [facility] [place] [address] COLONOSCOPY,SCREENI NG (WRVU 3.26) Scheduled Procedures Name Priority Associated Diagnoses Date/Ti me COLONOSCOPY,SCREENING (WRVU 3.26) polyps 08/09/2024 10:30 AM EDT documented as of this encounter Procedures Procedure Name Priority Date/Time Associated Diagnosis Comments CARDIAC CATHETERIZATION Routine 04/20/2017 11:35 AM EDT ASCVD (arteriosclerotic cardiovascular disease) documented in this encounter Results * CARDIAC CATHETERIZATION (04/20/2017 11:35 AM EDT) Anatomical Region Laterality Modality Other Narrative 04/23/2017 8:43 AM EDT ?[facility] ? Cardiac Catheterization/Intervention Report ? Patient Name: Star Vegajose Coello ? Procedure Date: 04/20/2017 ? A #: [id number] ? Primary Physician: Ramiro, Adrian T ? Case #: [id number] ? File Name: [id number] ? Catheterization Order Number: [id number] ? [facility] ? Final Report [place], [place] ? Patient Name: ? Roland Vega ? ID#: ?[id number] ? : ?1950 ? Procedure Date: ? April 20, 2017 ?Case #: ? [id number] ? Room: ? 6 ? Case Physicians: ?Adrian T Ramiro, M.D. ?Start: ?09:46 ?Lita Alberts M.D. ? Admission: ??04/20/2017 ? Referring ? Hussain Shane M.D. ? Physicians: ?Vel Santos M.D. ? Procedures: ?* Coronary Angiography ?* Left Heart Catheterization ?* Right Heart Catheterization ?* Oximetry ?* Coronary Stent Insertion ?* Arterial Blood Gases ? History ?Roland Vega is a 67 year old man. He has a family history of ?coronary artery disease. The patient has a history of smoking (20 pack ?years). He has hypercholesterolemia managed with lipid therapy. The ?patient has stable angina and a prior history of coronary artery disease. ?He is status post a remote myocardial infarction. The patient had a ?remote coronary intervention procedure. He has a history of dyspnea with ?NYHA functional class III. The patient also has a history of an abnormal ?stress test. Prior to the initiation of this procedure, the patient was ?designated as ASA Class III. ? Patient Status at Catheterization: ?The patient presented with: stable angina (w/i 42 days). [place] ?Cardiovascular Society angina class was III. This patient was on beta ?blockers and nitrates prior to the procedure. An echo stress test was ?performed and results were Positive and Intermediate Risk ischemia ?assessment. ? Technique: ?A 6 SLFr sheath was inserted in the right radial artery utilizing the ?Seldinger technique. A 6Fr sheath was inserted in the right median ?antecubital vein utilizing the Seldinger technique. The left coronary ?artery was injected utilizing a 5Fr Adalid Radial catheter. A 5Fr Adalid ?Radial catheter was used to inject the right coronary artery. Right heart ?catheterization was performed utilizing a 6Fr Balloon wedge catheter. ?Left ventricular pressure was performed with a 5Fr Adalid Radial catheter. ?Coronary stent insertion was performed and the equipment utilized will be ?described in the intervention summary section. 12,000 units of heparin ?were administered. Intracoronary nitroglycerin was given during this ?case. A total of 400cc of Omnipaque were opened, 350cc of Omnipaque were ?administered and 50cc of Omnipaque were wasted. Radiation: Fluoro time ?was 24.0 minutes, dose area product was 297,663 mGYcm2 and air kerma was ?3,692 mGY. ?The patient received the following medications prior to and during the ?procedure: Aspirin (any), Clopidogrel and Unfractionated Heparin (any). ? Hemodynamics: ?Right Heart Pressures ? Hemodynamics: ? Syst Diast ? EDP ?a ?v ? m ?RA ? 10 ? 5 ? 4 ?RV 31 ?7 ?PA 31 ? 6 ?18 ?PCW ?10 ?10 ? 6 ? Hemodynamic Profile: ?Profile 1 ?CO ? 6.87 ?CI ? 2.80 ?TSR ? 1,013 ?SVR ?967 ?TPR ?210 ?PVR ?140 ?Technique ?Estimated Jose ?Left Heart Pressures ? Resting: ? Syst Diast ? EDP ?a ?v ? m ?Ao 107 ?? 69 ?87 ?LV 107 ? 20 ? Oximetry: ?Location ? %Sat ?Location ?%Sat ?Main Pulmonary Artery ??70.0 ?radial ?91.0 ? Coronary Angiography: ?Dominance: Right ?Left Main ? There was mild diffuse disease of the entire vessel segment of the ? left main artery. ?Left Anterior Descending ? There was mild diffuse disease of the entire vessel segment of the ? left anterior descending artery (LAD). ??The proximal segment of the ? LAD had a ulcerated and aneurysmal diffuse 30% stenosis. ? There was a 50% single discrete stenosis of the ostial segment of ? the first diagonal branch (Diagonal 1) of the LAD. ??The mid segment ? of the Diagonal 1 had a single discrete 90% stenosis. ?Left Circumflex ? There was mild diffuse disease of the entire vessel segment of the ? left circumflex artery (LCX). ? There was an 80% single discrete stenosis of the proximal segment of ? the first obtuse marginal branch (OM1) of the LCX. ?Right Coronary Artery ? There was a 90% stenosis of the ostial segment of the right ? posterior descending branch (RPDA) of the right coronary artery ? (RCA). ? Indication for Intervention: ?Coronary intervention was indicated for treatment of stable angina, CCS ?Class III. Left ventricular Ejection Fraction was estimated at 65 ?percent. The priority for the procedure was Elective. The NCDR indication ?for the procedure was Stable angina. Right Heart catheterization was ?initiated for Congestive heart failure (428.0). ? Intervention Summary: ?First Diagonal Branch of the LAD ? Mid 90% ? Stent insertion was performed on the 90% stenosis in the mid ? segment of the Diagonal 1. This was a de liliya lesion. ? According to the ACC/AHA classification system, this lesion ? was a type B2 moderate risk lesion. Primary prevention of ? restenosis was the indication for stent insertion. This was ? the culprit lesion. Vessel flow pre intervention was ELVIN 3. ? Stent insertion was accomplished through a 6 Fr. EBU 3.5 ? guide. ??The lesion was predilated with a 2.00mm MINI TREK 12 ? MM balloon with a maximum inflation pressure of 12 ? atmospheres. ??A premounted 2.25 x 15 mm Xience Alpine (JANET) ? was deployed with a maximum inflation pressure of 12 ? atmospheres. ? The final outcome was defined as successful. There was no ? residual stenosis following this intervention. The final ELVIN ? flow was 3. ?First Obtuse Marginal Branch of the LCX ? Proximal 80% ? Stent insertion was performed on the 80% stenosis in the ? proximal segment of the OM1. This was a de liliya lesion. This ? lesion was designated a type B1 moderate risk lesion based on ? ACC/AHA classification system. Primary prevention of ? restenosis was the indication for stent insertion. This was ? the culprit lesion. Vessel flow pre intervention was ELVIN 3. ? Stent insertion was accomplished through a 6 Fr. EBU 3.5 ? guide. ??The lesion was predilated with a 2.50mm TREK 12 MM ? balloon with a maximum inflation pressure of 12 atmospheres. ? A premounted 2.75 x 15 mm Maxine Rayoine (JANET) was deployed ? with a maximum inflation pressure of 18 atmospheres. ? The final outcome was defined as successful. There was no ? residual stenosis following this intervention. The final ELVIN ? flow was 3. ?Right Posterior Descending Branch of the RCA ? Ostial 90% ? Stent insertion was performed on the 90% stenosis in the ? ostial segment of the RPDA. This was a de liliya lesion. ? According to the ACC/AHA classification system, this lesion ? was a type B2 moderate risk lesion. Primary prevention of ? restenosis was the indication for stent insertion. This was ? the culprit lesion. Vessel flow pre intervention was ELVIN 3. ? Stent insertion was accomplished through a 6 Fr. MAC 3.0 30 ? guide. ??The lesion was predilated with a 2.50mm TREK 12 MM ? balloon with a maximum inflation pressure of 12 atmospheres. ? A premounted 2.75 x 15 mm Maxine Rayoine (JANET) was deployed ? with a maximum inflation pressure of 12 atmospheres. ? Following stent deployment, the lesion was dilated using a ? 3.50mm NC TREK 12 MM balloon with a maximum inflation pressure ? of 12 atmospheres. ? The final outcome was defined as successful. The residual ? stenosis following this intervention was 10%. The final ELVIN ? flow was 3. ? Vascular Access: ?Vascular Access Management: ? Manual Compression of the right median antecubital vein access site ? was performed. ? Mechanical Compression of the right radial artery access site was ? performed. ? Point of Care Testing: ?ABG: ? Arterial Blood gasses were performed using the I-Stat analyzer at ? 10:06: pH: 7.39, pCO2: 42.0, pO2: 62.0, sPO2: 91%, HCO3: 25 on FIO2: ? 21. ? Dual Antiplatelet (DAPT) Recommendations: ?Drug eluting stent (JANET) inserted for stable ischemic heart disease ?(SIHD). ?P2Y12 Loading dose Clopidogrel 600 mg PO given in lab. ?Recommend continuing clopidogrel 75 mg PO daily for 6 months. ??Recommend ?continuing aspirin 81 mg unless intolerant. ? Conclusions: ?* Three vessel coronary artery disease (LAD, [...] information.) ?* Drug eluitng stents placed. ? Complications/Events: ?The patient had no complications during these procedures. ? Comments: ?Positive stress test with progressive SOB. ?The attending physician was present for the entire procedure. ?Dr. Adrian Rubio M.D. was present during the moderate sedation ?intraservice time as documented by the sedation nurse. ??Case time = 01:24. ?Dr. Adrian Rubio M.D. performed the coronary angiography, left heart ?catheterization, right heart catheterization, oximetry, stent ?insertion-coronary and ABG. Dr. Lita Alberts M.D. performed the stent ?insertion-coronary, coronary angiography, left heart catheterization, right ?heart catheterization, oximetry and ABG. ? Adrian Rubio M.D. ? Report Finalized: 04/23/2017 ??07:09 ? Report Last Ammended: 04/23/2017 ??08:38 ? Procedure Note Adrian Rubio MD - 04/23/2017 [facility] Cardiac Catheterization/Intervention Report Patient Name: Roland Vega Procedure Date: 04/20/2017 A #: [id number] Primary Physician: Adrian Rubio Case #: [id number] File Name: [id number] Catheterization Order Number: [id number] [facility] FinalReport [place], [place] Patient Name: Roland Vega ID#:[id number] :1950 Procedure Date: April 20, 2017 Case #: [id number] Room: 6 Case Physicians: Adrian Rubio M.D. Start: 09:46 Lita Alberts M.D. Admission:04/20/2017 Referring Hussain Shane M.D. Physicians: Vel Santos M.D. Procedures: * Coronary Angiography * Left Heart Catheterization * Right Heart Catheterization * Oximetry * Coronary Stent Insertion * Arterial Blood Gases History Roland Vega is a 67 year old man. He has a family history of coronary artery disease. The patient has a history of smoking (20pack years). He has hypercholesterolemia managed with lipid therapy. The patient has stable angina and a prior history of coronary arterydisease. He is status post a remote myocardial infarction. The patient had a remote coronary intervention procedure. He has a history of dyspneawith NYHA functional class III. The patient also has a history of anabnormal stress test. Prior to the initiation of this procedure, the patientwas designated as ASA Class III. Patient Status at Catheterization: The patient presented with: stable angina (w/i 42 days). [place] [employer] angina class was III. This patient was onbeta blockers and nitrates prior to the procedure. An echo stress testwas performed and results were Positive and Intermediate Risk ischemia assessment. Technique: A 6 SLFr sheath was inserted in the right radial artery utilizingthe Seldinger technique. A 6Fr sheath was inserted in the right median antecubital vein utilizing the Seldinger technique. The leftcoronary artery was injected utilizing a 5Fr Adalid Radial catheter. A 5FrJacky Radial catheter was used to inject the right coronary artery. Rightheart catheterization was performed utilizing a 6Fr Balloon wedgecatheter. Left ventricular pressure was performed with a 5Fr Adalid Radialcatheter. Coronary stent insertion was performed and the equipment utilizedwill be described in the intervention summary section. 12,000 units ofheparin were administered. Intracoronary nitroglycerin was given during this case. A total of 400cc of Omnipaque were opened, 350cc of Omnipaquewere administered and 50cc of Omnipaque were wasted. Radiation: Fluorotime was 24.0 minutes, dose area product was 297,663 mGYcm2 and air kermawas 3,692 mGY. The patient received the following medications prior to and duringthe procedure: Aspirin (any), Clopidogrel and Unfractionated Heparin(any). Hemodynamics: Right Heart Pressures Hemodynamics: Syst Diast EDP a v m RA 10 5 4 RV 31 7 PA 31 6 18 PCW 10 10 6 Hemodynamic Profile: Profile 1 CO 6.87 CI 2.80 TSR 1,013 SVR 967 TPR 210 PVR 140 Technique Estimated Jose Left Heart Pressures Resting: Syst Diast EDP a v m Ao 107 69 87 LV 107 20 Oximetry: Location %Sat Location %Sat Main Pulmonary Artery 70.0 radial 91.0 Coronary Angiography: Dominance: Right Left Main There was mild diffuse disease of the entire vessel segment ofthe left main artery. Left Anterior Descending There was mild diffuse disease of the entire vessel segment ofthe left anterior descending artery (LAD). The proximal segment ofthe LAD had a ulcerated and aneurysmal diffuse 30% stenosis. There was a 50% single discrete stenosis of the ostial segmentof the first diagonal branch (Diagonal 1) of the LAD. The midsegment of the Diagonal 1 had a single discrete 90% stenosis. Left Circumflex There was mild diffuse disease of the entire vessel segment ofthe left circumflex artery (LCX). There was an 80% single discrete stenosis of the proximalsegment of the first obtuse marginal branch (OM1) of the LCX. Right Coronary Artery There was a 90% stenosis of the ostial segment of the right posterior descending branch (RPDA) of the right coronary artery (RCA). Indication for Intervention: Coronary intervention was indicated for treatment of stable angina,CCS Class III. Left ventricular Ejection Fraction was estimated at 65 percent. The priority for the procedure was Elective. The NCDRindication for the procedure was Stable angina. Right Heart catheterization was initiated for Congestive heart failure (428.0). Intervention Summary: First Diagonal Branch of the LAD Mid 90% Stent insertion was performed on the 90% stenosis in themid segment of the Diagonal 1. This was a de liliya lesion. According to the ACC/AHA classification system, thislesion was a type B2 moderate risk lesion. Primary prevention of restenosis was the indication for stent insertion. Thiswas the culprit lesion. Vessel flow pre intervention was TIMI3. Stent insertion was accomplished through a 6 Fr. EBU 3.5 guide. The lesion was predilated with a 2.00mm MINI TREK12 MM balloon with a maximum inflation pressure of 12 atmospheres. A premounted 2.25 x 15 mm Xience Alpine(JANET) was deployed with a maximum inflation pressure of 12 atmospheres. The final outcome was defined as successful. There was no residual stenosis following this intervention. The finalTIMI flow was 3. First Obtuse Marginal Branch of the LCX Proximal 80% Stent insertion was performed on the 80% stenosis in the proximal segment of the OM1. This was a de liliya lesion.This lesion was designated a type B1 moderate risk lesionbased on ACC/AHA classification system. Primary prevention of restenosis was the indication for stent insertion. Thiswas the culprit lesion. Vessel flow pre intervention was TIMI3. Stent insertion was accomplished through a 6 Fr. EBU 3.5 guide. The lesion was predilated with a 2.50mm TREK 12MM balloon with a maximum inflation pressure of 12atmospheres. A premounted 2.75 x 15 mm Xience Alpine (JANET) wasdeployed with a maximum inflation pressure of 18 atmospheres. The final outcome was defined as successful. There was no residual stenosis following this intervention. The finalTIMI flow was 3. Right Posterior Descending Branch of the RCA Ostial 90% Stent insertion was performed on the 90% stenosis in the ostial segment of the RPDA. This was a de liliya lesion. According to the ACC/AHA classification system, thislesion was a type B2 moderate risk lesion. Primary prevention of restenosis was the indication for stent insertion. Thiswas the culprit lesion. Vessel flow pre intervention was TIMI3. Stent insertion was accomplished through a 6 Fr. MAC 3.030 guide. The lesion was predilated with a 2.50mm TREK 12MM balloon with a maximum inflation pressure of 12atmospheres. A premounted 2.75 x 15 mm Xience Alpine (JANET) wasdeployed with a maximum inflation pressure of 12 atmospheres. Following stent deployment, the lesion was dilated usinga 3.50mm NC TREK 12 MM balloon with a maximum inflationpressure of 12 atmospheres. The final outcome was defined as successful. The residual stenosis following this intervention was 10%. The finalTIMI flow was 3. Vascular Access: Vascular Access Management: Manual Compression of the right median antecubital vein accesssite was performed. Mechanical Compression of the right radial artery access sitewas performed. Point of Care Testing: ABG: Arterial Blood gasses were performed using the I-Stat analyzerat 10:06: pH: 7.39, pCO2: 42.0, pO2: 62.0, sPO2: 91%, HCO3: 25 onFIO2: 21. Dual Antiplatelet (DAPT) Recommendations: Drug eluting stent (JANET) inserted for stable ischemic heart disease (SIHD). P2Y12 Loading dose Clopidogrel 600 mg PO given in lab. Recommend continuing clopidogrel 75 mg PO daily for 6 months.Recommend continuing aspirin 81 mg unless intolerant. Conclusions: * Three vessel coronary artery disease (LAD, LCX and RCA) * Elevated left ventricular end diastolic pressure * Successful stent insertion of the proximal OM1 lesion * Successful stent insertion of the ostial RPDA lesion * Successful stent insertion of the mid D1 lesion * Recommend continuing clopidogrel 75 mg PO daily for 6 months (seeDAPT Recommendations above for more information.) * Drug eluitng stents placed. Complications/Events: The patient had no complications during these procedures. Comments: Positive stress test with progressive SOB. The attending physician was present for the entire procedure. Dr. Adrian Rubio M.D. was present during the moderate sedation intraservice time as documented by the sedation nurse. Case time =01:24. Dr. Adrian Rubio M.D. performed the coronary angiography, leftheart catheterization, right heart catheterization, oximetry, stent insertion-coronary and ABG. Dr. Lita Alberts M.D. performed the stent insertion-coronary, coronary angiography, left heart catheterization,right heart catheterization, oximetry and ABG. Adrian Rubio M.D. Report Finalized: 04/23/2017 07:09 Report Last Ammended: 04/23/2017 08:38 Adrian Rubio MD CARDIAC CATH ORDERAB LES documented in this encounter Visit Diagnoses Diagnosis ASCVD (arteriosclerotic cardiovascular disease) Unspecified cardiovascular disease ASCVD (arteriosclerotic cardiovascular disease) Unspecified cardiovascular disease documented in this encounter Care Teams Lead Material Handler Relationship Specialty Start Date End Date Vel Santos MD [address] [place], [place] [phone] (work) PCP - General 09/24/10 06/04/23 documented as of this encounter
--- OUTSIDE RECORDS SUMMARY | 2024-07-19 22:18 | XMS_ITS | Encounter Summary ---
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 Procedures PRO CATH PLMT LEFT HEART CATH & ARTS W/INJ & ANGIO IMG S&I CARDIAC CATHETERIZATION Referral ID Status Reason Start Date Expiration Date Visits Re quested Visits Authorized [id number] 1 1 Encounter Details Date Type Department Care Team (Late st Contact Info) Description 04/20/2017 9:00 AM EDT - 04/20/2017 10:00 AM EDT Surgery [place] [address] Adrian Rubio MD [facility] [place] [address] CARDIAC CATHETERIZATION Social History Tobacco Use Types [...] Sign Reading Time Taken Comments Blood Pressure 138/87 04/20/2017 8:40 AM EDT Pulse 61 04/20/2017 8:40 AM EDT Temperature 36.4 ??C (97.5 ??F) 04/20/2017 8:40 AM ED T Respiratory Rate 16 04/20/2017 8:40 AM EDT Oxygen Saturation 97% 04/20/2017 8:40 AM EDT Inhaled Oxygen Concentration - - Weight 128.7 kg (283 lb 12.8 oz) 04/20/2017 8:40 AM EDT Height 180.3 cm (5' 11) 04/20/2017 8:40 AM EDT Body Mass Index 39.73 04/20/2017 8:40 AM EDT documented in this encounter Discharge Summaries * Lita Alberts MD - 04/21/2017 10:08 AM EDT Discharge Summary Patient Name: Roland Vega Patient Age: 67 y.o. Language: Israeli Race: White Ethnicity: Not nor Admit date: [...] Specifically ask about this and similar medications: [place]-3 Fatty Acids-Vitamin E (OMEGA-3 FISH OIL) 1,000-5 [...] OIL 1,000-5 mg-unit Cap ?nk?wn!?? Generic drug: [place]-3 Fatty Acids-Vitamin E Refills: 0 testosterone enanthate [...] appointments: -During 8am-5pm Thursday through Thursday call [phone] to speak with a nurse in the cardiology clinic -All other times call [phone] and ask to speak to the pantograph operator color separation photographer. MEDICATIONS - while on plavix we have [...] does not resolve you need to call [phone]. Return to work/ usual actvities: 1 week, [...] Primary care provider: Cardiology: Vel Santos MD [phone] Follow up as planned or as needed. Dr. Hussain Shane Call to confirm follow-up General Instructions None Future Appointments and Orders Future Orders Complete By Expires Referral to Cardiac Rehab [[id number] Custom] As directed Process Instructions: If no progress note charted, please enter Clinical details in comments. Scheduling Instructions: Questions: My question or request is: s/p PCI cardiac rehab either at [facility] or [facility] Discharge References/Attachments None documented in this encounter Discharge Instructions * Patient Instructions* Lita Alberts MD - 04/20/2017 12:42 PM EDT Cardiology Instructions Call your doctor if: Chest pain, dyspnea, pain or swelling in legs occurs. If you have non-emergent questions between now and the time of your follow up appointments: -During 8am-5pm Thursday through Thursday call [phone] to speak with a nurse in the cardiology clinic -All other times call [phone] and ask to speak to the pantograph operator color separation photographer. MEDICATIONS - while on plavix we have [...] Primary care provider: Cardiology: Vel Santos MD [phone] Follow up as planned or as needed. [...] for prevention. 120 mL 3 08/10/2015 08/12/2023 [place]ale-3 Fatty Acids-Vitamin E (OMEGA-3 FISH OIL) 1,000-5 [...] he was having left sided chest discomfort 02/09 described as sharp- stabbing' localized & intermittent. [...] answered and plan reviewed. Adrian Rubio MD, [facility], [facility] Attending Smart Grid Engineer Pager [phone] documented in this encounter H&P Notes * Adrian Rubio MD - 04/20/2017 11:36 AM EDT Post-PCI Admission History and Physical PCP: Vle Santos MD Referring: Hussain Shane MD Date [...] for post PCI monitoring. Adrian Rubio MD, [facility], [facility] Attending Smart Grid Engineer Pager [phone] * Adrian Rubio MD - 04/20/2017 9:02 AM EDT Complete Adult Pre-Procedural H&P Patient Name: Roland Vega : [id number] 67 y.o. MR#: [id number] Chief Complaint: SOB with exertion. Planned Procedure: [...] an outpatient cardiac rehabilitation program at Either [facility] or [facility]. Hewants to visit each of those programs before he decides. He will call us once he knows and we'll fax order and DCS was discussed. Patient agrees to a referral to one of these program. . documented in this encounter Plan of Treatment Upcoming Encounters Date Type Department Care Team (Late st Contact Info) Description 08/09/2024 10:30 AM EDT Hospital [place] [address] Navi Montero MD [facility] [place] [address] 08/09/2024 10:30 AM EDT - 08/09/2024 11:15 AM EDT [place] [address] Navi Monteor MD [facility] [place] [address] COLONOSCOPY,SCREENI NG (WRVU 3.26) Scheduled Procedures Name Priority Associated Diagnoses Date/Ti me COLONOSCOPY,SCREENING (WRVU 3.26) polyps 08/09/2024 10:30 AM EDT Scheduled Referrals Name Type Priority Associated Diagnoses Orde r Schedule Referral to Cardiac Rehab Outpatient Referral Routine S/P angioplasty with stent Ordered: 04/21/2017 documented as of this encounter Procedures Procedure Name Priority Date/Time Associated Diagnosis Comments APPLE THINNER SCAN 04/22/2017 12:00 AM EDT EKG 12-LEAD Routine 04/21/2017 7:40 AM EDT ASCVD (arteriosclerotic cardiovascular disease) CARDIAC ENZYMES [place] 04/20/2017 4:28 PM EDT EKG 12-LEAD [...] in this encounter Results * SCAN DOC: APPLE THINNER (04/22/2017 12:00 AM EDT) Anatomical Region Laterality [...] (Bezet) 432 ms MUSE SYSTEM Calculated P [place] 33 degrees MUSE SYSTEM Calculated R [place] -73 degrees MUSE SYSTEM Calculated T [place] 0 degrees MUSE SYSTEM INTERPRETATION ??Sinus bradycardia Left axis deviation Non-specific intra-ventricu lar conduction block Abnormal ECG When compared with ECG of 20-APR-2017 12:00, Premature ventricular complexes are no longer Present Confirmed by MD Fadia, Nayan ([id number]) on 04/21/2017 3:24:22 PM MUSE SYSTEM 04/21/2017 7:40 AM EDT 04/21/2017 3:24 PM EDT Adrian Rubio MD ECG ORDERABLES MUSE SYSTEM * Cardiac Enzymes (04/20/2017 4:28 PM EDT) Troponin-T <0.03 <=0.03 ng/mL [facility] Comment: 0.03 ng/mL: Represents the 99th percentile upper reference limit for normals. >0.03 ng/mL: Elevated cardiac troponin T level indicative of myocardial damage. Diagnosis of acute, evolving or recent MT requires a typical rise and gradual fall [...] consensus document of the Joint Society of Cardiology/[place] College of Cardiology Committee for the redefinition of myocardial infarction. ??Journal of the [place] College of Cardiology 2000; 36: 959-969] Creatine Kinase 188 0 - 200 unit/L [facility] Blood specimen (specimen) 04/20/2017 4:28 PM EDT 04/20/2017 4:35 PM EDT Narrative Resulting Agency Comment Spec In Lab Adrian Rubio MD CHEMISTRY ORDERABLES Performing Organization Address [facility] de Phone Number [facility] [place] [address] * EKG 12 Lead (04/20/2017 12:00 PM EDT) Ventricular rate 57 BPM MUSE SYSTEM Atrial Rate 57 BPM MUSE SYSTEM P-R Interval 178 ms MUSE SYSTEM QRS Duration 128 ms MUSE SYSTEM Q-T Interval 464 ms MUSE SYSTEM QTC Calculated (Bezet) 451 ms MUSE SYSTEM Calculated P [place] 15 degrees MUSE SYSTEM Calculated R [place] -62 degrees MUSE SYSTEM Calculated T [place] -14 degrees MUSE SYSTEM INTERPRETATION Sinus bradycardia Occasional Premature ventricular complexes Left bundle branch block Abnormal ECG When compared with ECG of 20-APR-2017 08:52, No significant change was found Confirmed by Taiwo Stahl MD ([id number]) on 04/20/2017 4:28:19 PM MUSE SYSTEM 04/20/2017 12:0 0 PM EDT 04/20/2017 4:28 PM EDT Adrian Rubio MD ECG ORDERABLES Performing Organization Address [facility] Phone Number MUSE SYSTEM * (ABNORMAL) Point of Care Blood Gas Historical (04/20/2017 10:06 AM EDT) pH, POC 7.39 7.35 - 7.45 [facility] pCO2, POC 42 35 - 45 mmHg [facility] pO2, POC 62(L) 85 - 104 mmHg [facility] Base Excess, POC 0.0 -3.0 - 3.0 mmol/L [facility] Bicarbonate, POC 25.2 20.0 - 26.0 mmol/L [facility] Sodium, POC 139 135 - 145 mmol/L [facility] POC Potassium 3.9 3.5 - 5.0 mmol/L [facility] Ionized Calcium, POC 1.24 1.15 - 1.33 mmol/L [facility] POC Hematocrit 49.0 40.0 - 51.0 % [facility] POC Calc Hgb 16.7 13.7 - 17.5 gm/dL [facility] Comment:The calculation of h emoglobin from hematocrit assumes a normal MCHC. POC Bgas Loc CC LAB [facility] Blood specimen (specimen) 04/20/2017 10:06 AM EDT 04/24/2017 8:11 AM EDT Adrian Rubio MD CHEMISTRY ORDERABLES Performing Organization Address [facility] Co de Phone Number [facility] [place] [address] * EKG 12 Lead (04/20/2017 8:52 AM EDT) Ventricular rate 63 BPM MUSE SYSTEM Atrial Rate 63 BPM MUSE SYSTEM P-R Interval 176 ms MUSE SYSTEM QRS Duration 124 ms MUSE SYSTEM Q-T Interval 432 ms MUSE SYSTEM QTC Calculated (Bezet) 442 ms MUSE SYSTEM Calculated P [place] 41 degrees MUSE SYSTEM Calculated R [place] -73 degrees MUSE SYSTEM Calculated T [place] -10 degrees MUSE SYSTEM INTERPRETATION Sinus rhythm Occasional Premature ventricular complexes Left anterior fascicular block Nonspecific ST and T wave abnormality Abnormal ECG When compared with ECG of 13-NOV-2010 07:44, Premature ventricular complexes are now Present Confirmed by Favio CONNOLLY [facility] ([id number]) on 04/20/2017 4:27:55 PM MUSE SYSTEM 04/20/2017 8:52 AM EDT 04/20/2017 4:27 PM EDT Adrian Rubio MD ECG ORDERABLES Performing Organization Address [facility] Co de Phone Number MUSE SYSTEM * Differential, Automated (04/20/2017 8:20 AM EDT) Neutrophil % 46.8 % [facility] Neutrophil Absolute 2.82 1.70 - 6.10 x10(3)/mcL [facility] Lymph % 38.6 % [facility] Lymphocytes Abs 2.3 0.9 - 3.2 x10(3)/[facility] Monocyte % 12.6 % [facility] Monocyte Abs 0.8 0.3 - 0.9 x10(3)/[facility] Eos % 1.2 % [facility] Eosinophils Abs 0.1 0.0 - 0.4 x10(3)/[facility] Basophil % 0.5 % [facility] Baso Absolute 0.0 0.0 - 0.1 x10(3)/[facility] Immature Gran % 0.30 % [facility] Comment: Immature granulocytes(IG's)percentage and absolute count will include metamyelocytes, myelocytes, and promyelocytes. Blood smears from CBCs yielding IG's will be scanned manually for concordance. If this scan disagrees with the automated IG or if promyelocytes are noted, a manual differential will be performed. Immature Gran Absolute 0.02 0.00 - 0.04 x10(3)/[facility] Blood specimen (specimen) 04/20/2017 8:20 AM EDT 04/20/2017 8:22 AM EDT Narrative Resulting Agency Comment Spec In Lab Adrian Rubio MD HEMATOLOGY ORDERABLE S [facility] [place] [address] * (ABNORMAL) Hemogram (04/20/2017 8:20 AM EDT) White Blood Cell 6.0 4.0 - 9.5 x10(3)/ L [facility] Red Blood Cell 5.62(H) 4.58 - 5.54 x10(6)/ L [facility] Hemoglobin 16.6(H) 13.7 - 16.5 gm/dL [facility] Hematocrit 50.0(H) 40.5 - 48.5 % [facility] Mean Cell Volume 89.0 82.9 - 93.1 fL [facility] Mean Cell Hemoglobin 29.5 27.5 - 32.1 pg [facility] Mean Cell Hemoglobin Concentration 33.2 32.0 - 35.7 gm/dL [facility] Platelet 184 145 - 357 x10(3)/mc L [facility] RDW Standard Deviation 42.8 36.0 - 45.0 fL [facility] RDW coefficient of variation 13.1 11.4 - 13.8 % [facility] Mean Platelet Volume 10.0 7.6 - 12.9 fL [facility] NRBC% auto 0.0 % [facility] NRBC Absolute 0.000 0.000 - 0.000 x10(3)/mc L [facility] Blood specimen (specimen) 04/20/2017 8:20 AM EDT 04/20/2017 8:22 AM EDT Narrative Resulting Agency Comment Spec In Lab Adrian Rubio MD HEMATOLOGY ORDERABLE S [facility] [place] [address] * (ABNORMAL) BMP w/fasting Glucose (04/20/2017 8:20 AM EDT) Glucose Fasting 108(H) 65 - 99 mg/dL [facility] Comment: ?Fasting* Glucose Interpretive Criteria [...] of Diabetes Mellitus, Position Statement from the [place] Diabetes Association. ??Diabetes Care, Volume 33, Supplement 1, Nov 2009 Blood Urea Nitrogen 17 10 - 20 mg/dL [facility] Creatinine 1.05 0.80 - 1.50 mg/dL [facility] Comment: Please note that the pediatric reference intervals supplied above were not validated at [facility]. Results from pediatric patients should be interpreted in conjunction to the patient's age, height and muscle mass. Sodium 141 135 - 145 mmol/L [facility] Potassium 4.3 3.5 - 5.0 mmol/L [facility] Comment: Please note: ??Patients with WBC >100,000 may have falsely elevated Potassium levels. ??For accurate Potassium quantification in these patients send serum separator tube (gold top) for subsequent determinations. ??Contact the Clinical Chemistry Laboratory if there are any questions. Chloride 103 98 - 107 mmol/L [facility] Carbon Dioxide 25 22 - 31 mmol/L [facility] Anion Gap 13 5 - 15 mmol/L [facility] Calcium 9.1 8.5 - 10.5 mg/dL [facility] Est Glomerular Filtration Rate >60 >=60 [facility] Comment: This estimated GFR (eGFR) [...] the following links into your internet browser. [email or web address] Blood specimen (specimen) 04/20/2017 8:20 AM EDT 04/20/2017 8:22 AM EDT Narrative Resulting Agency Comment Spec In Lab Adrian Rubio MD CHEMISTRY ORDERABLES [facility] [place] [address] documented in this encounter Visit Diagnoses Diagnosis ASCVD (arteriosclerotic cardiovascular disease) Unspecified cardiovascular disease S/P angioplasty with stent Postsurgical percutaneous transluminal coronary angioplasty status ASCVD (arteriosclerotic cardiovascular disease) Unspecified cardiovascular disease documented in this encounter Admitting Diagnoses Diagnosis [...] Given 04/21/2017 8:28 AM EDT 75 mg clopidogrel (PLAVIX) tablet ONCE PRN, Starting on Thu04/20/17 at 1026, Until Thu04/20/17 at 1440, Intra-Operative (Intra-Procedure), Routine Given 04/20/2017 10:26 AM EDT 600 mg eptifibatide (INTEGRILIN) 0.75 mg/mL infusion CONTINUOUS PRN, Starting on Thu04/20/17 at 1125, Until Thu04/20/17 at 1440, Cath (Intra-Procedure) New Bag 04/20/2017 11:25 AM EDT 2 mcg/kg/min 20.6 mL/hr eptifibatide (INTEGRILIN) 0.75 mg/mL infusion 15 mg/hr (20 mL/hr), Intravenous, CONTINUOUS, Starting on Thu04/20/17 at 1200, Until Thu04/21/17 at 1318, Integrilin IV infusion for total of 12 hours New Bag 04/20/2017 9:32 PM EDT 15 mg/hr 20 mL/hr New Bag 04/20/2017 4:25 PM EDT 15 mg/hr 20 mL/hr Rate/Dose Verify 04/20/2017 12:05 PM EDT 15 mg/hr 20 mL/ hr eptifibatide (INTEGRILIN) injection ONCE PRN, Starting on Thu04/20/17 at 1122, Until Thu04/20/17 at 1440, Cath (Intra-Procedure), Routine Given 04/20/2017 11:35 AM EDT 22.6 mg Given 04/20/2017 11:22 AM EDT 22.6 mg fentaNYL 50 mcg/mL multi-dose injection ONCE PRN, Starting on Thu04/20/17 at 0952, Until Thu04/20/17 at 1440, Intra-Operative (Intra-Procedure), Routine Given 04/20/2017 9:52 AM EDT 25 mcg fentaNYL 50 mcg/mL multi-dose injection ONCE PRN, Starting on Thu04/20/17 at 0959, Until Thu04/20/17 at 1436, Cath (Intra-Procedure), Routine Given 04/20/2017 10:23 AM EDT 25 mcg Given 04/20/2017 9:59 AM EDT 25 mcg heparin (porcine) injection ONCE PRN, Starting on Thu04/20/17 at 1009, Until Thu04/20/17 at 1440, Cath (Intra-Procedure), Routine Given 04/20/2017 10:58 AM EDT 3,000 Units Given 04/20/2017 10:27 AM EDT 3,000 Units Given 04/20/2017 10:09 AM EDT 6,000 Units HYDROcodone-acetaminophen (NORCO) 5-325 mg per tablet 1 tablet 1 tablet, Oral, EVERY 6 HOURS PRN, Starting on Thu04/20/17 at 2235, Until Thu04/21/17 at 1318, Pain, Maximum dose of acetaminophen is 4000 mg from all sources in 24 hours. , Routine iohexol (OMNIPAQUE) 350 mg/mL solution ONCE PRN, Starting on Thu04/20/17 at 1124, Until Thu04/20/17 at 1440, Cath (Intra-Procedure), Routine Given 04/20/2017 11:24 AM EDT 350 mLs meTOPROLOL succinate (TOPROL-XL) XL tablet 100 mg 100 mg, Oral, DAILY, First dose on Thu04/20/17 at 1700, Until Discontinued, DO NOT CRUSH OR OPEN, Routine Given 04/21/2017 8:33 AM EDT 100 mg Given 04/20/2017 4:36 PM EDT 100 mg midazolam (PF) (VERSED) 1 mg/mL multi-dose injection ONCE PRN, Starting on Thu04/20/17 at 0952, Until Thu04/20/17 at 1436, Cath (Intra-Procedure), Routine Given 04/20/2017 11:18 AM EDT 1 mg Given 04/20/2017 10:58 AM EDT 1 mg Given 04/20/2017 10:23 AM EDT 1 mg nitroGLYcerin (NITROSTAT) SL tablet 0.4 mg [...] Unit), Routine nitroGLYcerin 100 mcg/mL intracoronary dilution ONCE PRN, Starting on Thu04/20/17 at 1008, Until Thu04/20/17 at 1440, Cath (Intra-Procedure), Routine Given 04/20/2017 11:11 AM EDT 100 mcg Given 04/20/2017 10:50 AM EDT 100 mcg Given 04/20/2017 10:08 AM EDT 100 mcg oxyCODONE-acetaminophen (PERCOCET) 5-325 mg per tablet 1 [...] 12:05 PM EDT 100 mL/hr 100 mL/hr verapamil (ISOPTIN) injection ONCE PRN, Starting on Thu04/20/17 at 1008, Until Thu04/20/17 at 1440, Administer over 2 Minutes, Cath (Intra-Procedure) Given 04/20/2017 10:08 AM EDT 2.5 mg documented in this encounter [...] on Thu04/20/17 at 1700, Until Discontinued, Routine 1636 (Given - Provider: Lilly Bishop RN) buPROPion (WELLBUTRIN SR or ZYBAN) SR tablet 150 mg 150 mg, Oral, 2 TIMES DAILY, First dose on Thu04/20/17 at 2100, Until Discontinued, DO NOT CRUSH OR OPEN, Routine 2049 (Given - Provider: Giorgio Carson RN) 0827 (Given - Provider: Lilly Bishop RN) clopidogrel [...] Cath (Intra-Procedure), Routine 0952 (Given - Provider: Maria E Ward RN)0959 (Given - Provider: Maria E Ward RN)1023 (Given - Provider: Maria E Ward RN)1058 [...] from all sources in 24 hours., Routine 1935 (Given - Provider: Giorgio Carson RN) verapamil (ISOPTIN) injection (CANCELED) ONCE PRN, Starting on Thu04/20/17 at 1008, Until Thu04/20/17 at 1440, Administer over 2 Minutes, Cath (Intra-Procedure) 1008 (Given - Provider: Maria E Ward RN) documented in this encounter Care Teams Healthcare Liaison Relationship Specialty Start Date End Date Vel Santos MD [address] [place] [phone] PCP - General 09/24/10 06/04/23 documented as of this encounter
--- OUTSIDE RECORDS SUMMARY | 2024-07-19 22:18 | XMS_ITS | Encounter Summary ---
Author Organization [facility] Address [facility] [place] [address] Care Team Providers Care Digitizer Name Role Phone Marco Aleman MD Primary Care Provider [phone] Encounter Details Date Type Department Care Team (Late st Contact Info) Description 10/09/2006 Orders Only Dermatology at [facility] [address] [place] [address] Ernst Robertson MD [facility] [address] [place] [address] Social History Tobacco Use Types Packs/Day Years [...] 10:30 AM EDT Hospital Encounter [place] [phone] Navi Montero MD [facility] [place] [address] 08/09/2024 10:30 AM EDT - 08/09/2024 11:15 AM EDT Surgery [place] [phone] Navi Montero MD [facility] [place] [address] COLONOSCOPY,SCREENI NG (WRVU 3.26) Scheduled Procedures Name Priority Associated Diagnoses Date/Ti me COLONOSCOPY,SCREENING (WRVU 3.26) polyps 08/09/2024 10:30 AM EDT documented as of this encounter Procedures Procedure Name Priority Date/Time Associated Diagnosis Comments SURGICAL PATHOLOGY REPORT Routine 10/09/2006 12:38 PM EST documented in this encounter Results * Surgical Pathology Report (10/09/2006 12:38 PM EST) Surgical Pathology Report [id number] ? Location: The signing pathologist has (i) examined the relevant preparation(s) for the specimen(s) and (ii) rendered or confirmed the diagnosis(es). . ?Pathology Surgical Pathology Final Report Clinical Information Specimen Submitted: A - Skin. re-excision. DN. (L) abdomen. Clinical History: -[id number]. ??Clinical Diagnosis: DN. Gross Description Labeled/Fixativ e: ? Labeled with the patient's name and medical record ?number, formalin. Qty/Size/Weight : ?Single, 3.5 x 1.5 x 1.0 cm. Tissue Description: ?? Ellipse of hair-bearing, conde-white skin. ??There is a ?central, depressed area of recent biopsy, ?1.0 x 0.7 cm in greatest dimension. Sections/Proces sing: ??The specimen is inked and serially sectioned. ??The ?ends are submitted in (1); the remainder of the ?specimen submitted in (2-5) with the previous biopsy ?site in (3-4). ?? (T5) ??aje/PPS Microscopic Description Slides reviewed, microscopic description not recorded. Diagnosis Skin, left abdomen, re-excision: 1 - No residual atypical nevus identified; dermal scar and changes consistent with prior procedure 10/09/06 PAS 10/11/06 Verified by: ? Alejandra Warren ?Pathologist/D ermatopathologi st ?(Electronic Signature) The attending pathologist whose signature appears on this report has reviewed all diagnostic slides and has edited the gross and/or microscopic portion of the report in rendering the final pathologic diagnosis. Comment Selected slides from the previous biopsy ([id number]) are reviewed. RACHEL DOMINGUEZ 10/09/2006 12:3 8 PM EST Ernst Robertson MD PATHOLOGY/CYTOL OGY ORDERABLES Performing Organization Address City/State/[facility] Co de Phone Number RACHEL DOMINGUEZ documented in this encounter Visit Diagnoses Not on filedocumented in this encounter Care Teams Digitizer Relationship Specialty Start Date End Date Marco Aleman MD [address] [place] [address] PCP - General Family Medicine 06/05/23 documented as of this encounter
--- OUTSIDE RECORDS SUMMARY | 2024-07-19 22:18 | XMS_ITS | Encounter Summary ---
[place] [address] Care Team Providers Care Silk Weaver Name Role Phone Vel Santos MD Primary Care Provider [phone] Reason for Referral * Diagnostic Test (Routine) - Closed Specialty Diagnoses / Procedures Referred By Contac t Referred To Contact Diagnoses Cerebrovascular accident (CVA), unspecified mechanism Procedures Maxi Lopez PA [facility] [place] [address] [phone] Referral ID Status Reason Start Date Expiration Date V isits Requested Visits Authorized [id number] Closed Specialty Service Requested 08/11/2018 08/11/2019 1 1 Reason for Visit * Reason Comments Numbness Blurred Vision * Auth/Cert Specialty Diagnoses / Procedures Referred By Contac t Referred To Contact Diagnoses TIA (transient ischemic attack) Acute ischemic left MCA stroke Cerebral infarction due to embolism of left middle cerebral artery Cerebrovascular accident (CVA), unspecified mechanism Referral ID Status Reason Start Date Expiration Date Visits Re quested Visits Authorized [id number] 1 1 Encounter Details Date Type Department Care Team (Latest Contact Info) Description 08/09/2018 8:21 PM EDT - 08/11/2018 2:35 PM EDT Hospital Encounter Intermediate [place] [address] Brenna Corbett MD [facility] [place] [address] Yarelis Jaime MD [facility] [place] [address] Sulaiman Lopez MD [facility] [place] [address] Niki Zamorano MD [facility] [place] [address] TIA (transient ischemic attack); Cerebrovascular accident (CVA), unspecified mechanism; Cerebral infarction due to embolism of left middle cerebral artery Discharge Disposition: Home Social History Tobacco Use [...] Sign Reading Time Taken Comments Blood Pressure 119/74 08/11/2018 12:05 PM EDT Pulse 68 08/11/2018 12:05 PM EDT Temperature 37.3 ??C (99.1 ??F) 08/11/2018 1 2:05 PM EDT Respiratory Rate 20 08/11/2018 12:0 5 PM EDT Oxygen Saturation 96% 08/11/2018 12: 05 PM EDT Inhaled Oxygen Concentration - - Weight 127.6 kg (281 lb 4.9 oz) 08/11/2018 5:15 AM EDT Height 180.3 cm (5' 11) 08/10/2018 3:00 PM EDT reported Body Mass Index 39.23 08/10/2018 3:00 PM EDT documented in this encounter Discharge Summaries * Maxi Robles PA - 08/11/2018 1:10 PM EDT Images from the original note were not included. Discharge Summary Patient Name: Roland Vega Patient Age: 68 y.o. Language: Turkish Race: White Ethnicity: Not nor Admit date: 08/09/2018 Discharge date and time: 181:13 PM Attending Physician: Niki Zamorano MD Discharge Physician: Niki Zamorano MD Follow-up Recommendations for Providers: -aspirin increased to 325mg daily. Continue dual antiplatelet therapy and statin for stroke prevention -follow-up ziopatch placed at discharge -cardiac catheterization delayed 2-3 week per cardiology recommendations -Incidental finding 4mm nodule seem in superior segment of left lower lobe. If high risk for malignancy, consider CT follow-up. Inpatient Provider Contact Information: For questions regarding this document or issues related to this hospitalization on the Neurology Service, please contact the author(s) of this discharge summary through the [facility] [employer] . Discharge Diagnoses: Left MCA infarct, etiology possibly calcific cardioembolism Active Hospital Problems Diagnosis ??? Acute ischemic left MCA stroke Resolved Hospital Problems Diagnosis Date Resolved No resolved problems to display. Past medical History: Past Medical History: Diagnosis Date ??? Malignant neoplasm of prostate 03/31/2017 Active Non Hospital Problems: Active Non-Hospital Problems Diagnosis ??? S/P angioplasty with stent ??? Peripheral neuropathy ??? History of syncope ??? Asthma ??? Rheumatoid arthritis(714.0) ??? Malignant neoplasm of prostate ??? Headache(784.0) ??? Chronic back pain ??? Depression ??? Hyperlipidemia ??? Gastroesophageal reflux ??? ASCVD (arteriosclerotic cardiovascular disease) ??? CIS - CIDP History of Presentation: Roland Vega is a 68 y.o. right handed male with past medical history significant for hypertension, hyperlipidemia, history of CIDP, history of an STEMI (2010 and 2016 status post drug-eluting stents x3-on Plavix, peripheral neuropathy, asthma, prostate cancer (status post radical prostatectomy in 2004) who presents with TIA-like symptoms. ?? Patient notes that around 5 PM today he had sudden onset of right scalp and face numbness which also included the right side of his tongue. This lasted for several minutes then went away. He denies any symptoms in his right arm or leg at the time of onset. During the onset he fell as though he could not control his tongue. While this was all happening patient noted to his that he felt as though he was having a stroke. Based on that his got him ready to come to the emergency department. They stopped to get a bite to eat and patient had a repeat of his symptoms, which included right scalp, face, right tongue numbness. This once again lasted for several minutes and then dissipated. Upon presentation to the emergency department his symptoms had subsided and were no longer apparent. He describes difficulty finding words but notes that his did not notice any slurred speech during his conversations with her leaving up to his presentation to the emergency department. ?? Patient notes that he took 3x325 mg aspirins at the onset of his symptoms. He notes that he takes ababy aspirin daily and is on Plavix as well. ?? Patient notes that he is has an appointment to have a cardiac catheterization done on Thursday, 1 week ago he was having dizziness with exertion and to believe that he may have a cardiac cause. ?? Denies history of headaches or seizures. ?? Physical Exam at Admission: Gen: Patient of apparent stated age, well nourished, well developed, awake, alert, NAD HEENT: Supple, no meningismus, no carotid bruit, no occipital tenderness CV: Regular rate, no murmurs, gallops or rubs appreciated Resp: good respiratory effort Abd: +normoactive bowel sounds, soft, nontender, nondistended Ext: No edema. No bony deformity Neuro Exam: MS: AAOx4, clear language, no dysarthria, follows commands appropriately CN: PERRL, EOMI, visual sherman full Facial sensation intact, no facial asymmetry Hearing intact to finger rub Palate elevates symmetrically, tongue protrudes midline SCM and trap strength intact Motor: Normal bulk and tone. UE: 5/5 R, 5/5 L Arm abduction at shoulder 5/5 R, 5/5 L Elbow extension 5/5 R, 5/5 L Elbow flexion 5/5 R, 5/5 L Press Machine Feeder LE: 5/5 R, 5/5 L Hip flexion 5/5 R, 5/5 L Knee extension 5/5 R, 5/5 L Knee flexion 5/5 R, 5/5 L Foot dorsiflexion 5/5 R, 5/5 L Foot plantar flexion Sensation: Intact to light touch, temperature, and vibration throughout Reflexes: DTRs Unable to obtain in biceps, triceps, brachioradialis, patellas or ankles Toes - R down, L down Coordination: Finger to nose intact, no overt dysmetria Rapid alternating movements & finger tapping smooth and symmetric Heel-sahu intact No tremor Gait: deferred NIH stroke Scale: NIH Stroke Scale at Initial Evaluation: ?? 1.a. Level of consciousness: 0-Alert 1-Not alert, but arousable with minimal stimulation 2-Not alert, requires repeat stimulation to attend 3-Coma 1.b. Ask patient the month and their age: 0-Answers both correctly 1-Answers one correctly 2-Both incorrect 1.c. Ask patient to open and close eyes: 0-Obeys both correctly 1-Obeys one correctly 2-Both incorrect 2. Best gaze (horizontal eye movement): 0-Normal 1-Partial gaze palsy 2-Forced deviation 3. Visual field testin-No visual field loss 1-Partial hemianopia 2-Complete hemianopia 3-Bilateral hemianopia (blind including cortical blindness) 4. Facial paresis (Ask patient to show teeth or raise eyebrows and close eyes tightly): 0-Normal symmetrical movement 1-Minor paralysis (flattened nasolabial fold, asymmetry on smiling) 2-Partial paralysis (total or near paralysis of lower face) 3-Complete paralysis of one or both sides (absence of facial movement in the upper and lower face) 5. Motor function right arm: 0-Normal (extends arm 90 degrees for 10 seconds without drift) 1-Drift 2-Some effort against gravity 3-No effort against gravity 4-No movement UT-Untestable (Joint fused or limb amputated) 5. Motor function- left arm: 0-Normal (extends arm 90 degrees for 10 seconds without drift) 1-Drift 2-Some effort against gravity 3-No effort against gravity (but baseline) 4-No movement UT-Untestable (Joint fused or limb amputated) 6. Motor function right le-Normal (extends leg 30 degrees for 5 seconds without drift) 1-Drift 2-Some effort against gravity 3-No effort against gravity 4-No movement UT-Untestable (Joint fused or limb amputated) 6. Motor function-left le-Normal (extends leg 30 degrees for 5 seconds without drift) 1-Drift 2-Some effort against gravity 3-No effort against gravity 4-No movement UT-Untestable (Joint fused or limb amputated) 7. Limb ataxia: 0-No ataxia 1-Present in one limb 2-Present in two limbs 8. Sensory (Use pinprick to test arms, legs, trunk and face compare side to side): 0-Normal 1-Mild to moderate decrease in sensation 2-Severe to total sensory loss 9. Best language (describe picture, name items, read sentences): 0-No aphasia 1-Mild to moderate aphasia 2-Severe aphasia 3-Mute 10. Dysarthria (read several words): 0-Normal articulation 1-Mild to moderate slurring of words 2-Near unintelligible or unable to speak UT-Intubated or other physical barrier 11. Extinction and inattention: 0-Normal 1-Inattention or extinction to bilateral simultaneous in one of the sensory modalities 2-Severe marcela-inattention or marcela-inattention to more than one modality ?? TOTAL SCORE: 0 Hospital Course:: Roland Vega is a 68 y.o. male with PMHx of CAD, HTN, HLD, CIDP who was admitted to the neurology service for further evaluation of transient right scalp and facial numbness. Neurological examination on admission was unremarkable with NIHSS 0. Head CT revealed evidence of left MCA infarct. Patien t was monitored with frequent checks of vitals and neurological status. Telemetry monitoring showedno atrial fibrillation. Permissive HTN was allowed, with labetalol administered prn for SBP >220. MRI demonstrated left MCA infarct . Vascular imaging showed hyperdense filling in left M2 concerning for embolic calcium, otherwise vessels were without significant stenosis or occlusion. TTE revealed EF 65%. See detailed reports as below. Most likely etiology of stroke was calcific cardioembolism. Ziopatch placed at discharge to assess for occult dysrhythmia. #Stroke: Pt was on aspirin 81mg and clopidogrel 75mg daily prior to this event given his prior cardiac history. Aspirin increased to 325mg daily. Home statin continued. He was scheduled for cardiac cath day of admission but this was delayed 2-3 weeks in consultation with cardiology. Patient reported remote history of afib but details on this unclear. Ziopatch placed at discharge to further assess. Patient was evaluated by rehabilitation services and deemed appropriate for home. Operations & Procedures: none Consultations: 1. PT/OT/SL Diagnostic Tests & Neuroimaging: Date Study Results ECG NSR HR [address] HEAD / CTA Head and Neck Noncontrast CT head: ?? There is hypodensity seen in the deep white matter of the left frontal lobe with local castro-white differentiation abnormality concerning for an acute infarction. There is relatively asymmetric hypodense attenuation in the left insula. There is a high density calcific structure in the distal MCA distribution as described below. No acute intracranial hemorrhage. No sulcal effacement. There is parenchymal cortical atrophy with commensurate ventriculomegaly. The mastoid air cells are clear. No calvarial lesions seen. Mucosal retention cyst is seen in the left sphenoid sinus. There is also mucosal thickening seen in the ethmoid air cells and right maxillary sinus. The orbits are normal. ?? A 4 mm nodule is seen in the superior segment of the left lower lobe on series 6, image 608. The thyroid is normal. ?? CTA carotids and [place]: ?? The visualized thoracic aorta is normal in caliber. There is a common origin of the right brachiocephalic and left common carotid artery. No stenosis at the origin of any of the aortic branch vasculature. The visualized subclavian and axillary arteries are normal. The common carotid arteries are widely patent. There is calcified atherosclerotic plaque seen in the carotid bulb on the right. No significant stenosis as measurable by NASCET criteria at the origin of the ICA. ECA origins are bilaterally normal. Calcified plaque is seen in the carotid siphon without significant stenosis. ?? There is a high density filling defect seen in the left M2 distribution as identified on series 6, image 93. This is new since the prior CT in 2005. The right MCA distribution is normal without filling defects seen. The bilateral ACAs are also normal without filling defects seen. ?? Patient has a dominant left vertebral artery. No significant stenosis seen at the origins of either vertebral artery. The vertebral arteries maintain a consistent caliber throughout their course in the neck. The basilar artery is widely patent. The posterior cerebral arteries are widely patent. The PCOMs are not visualized. ?? IMPRESSION 1. Acute left MCA division infarct. 2. Hyperdense filling defect in the left M2 division as above is concerning for embolic calcium in the setting of an acute infarct. Focal atherosclerosis is also a consideration, but less likely. 3. No acute intracranial hemorrhage. 4. Unexpected findin mm nodule seen in the superior segment of the left lower lobe. If the patient is high-risk for malignancy, consider follow-up CT in one year. Otherwise, no follow-up is needed as per Fleischner Society guidelines 2017. MRI BRAIN Area of restricted diffusion within the inferior left frontal lobe measuring approximately 2.4 x 2.0 cm, consistent with acute infarction. There is associated T2 hyperintensity in this region of the infarct. Mass effect is local with sulcal effacement. No additional areas of restricted diffusion or abnormal parenchymal signal. No intracranial hemorrhage. No mass, mass effect or midline shift. No extra-axial collection. The ventricles are normal in size and shape. The basal cisterns are patent. The paranasal sinuses and mastoid air cells are clear. No orbital or calvarial abnormality. ?? IMPRESSION Small, cortically-based left MCA territory infarct involving the left frontal lobe. TTE 1. Moderate concentric left ventricular hypertrophy is [...] See remainder of report for additional findings. Labs: Lipid Panel Lab Results Component Value Date CHLPL 161 08/09/2018 HDL 33 08/09/2018 CHOLHDL 4.9 08/09/2018 TRIG 291 08/10/2018 LDLCHOL 66 11/13/2010 LDLDIRECT 90 08/09/2018 Lab Results Component Value Date HA1C 6.1 (H) 08/10/2018 Last wbc, hgb, hct plt Recent Labs 08/10/18329 WBC 4.1 HGB 12.9* HCT 39.3* Last 3 Lytes Recent Labs 08/10/1832908/09/182134 NA 140 141 K 3.9 3.9 CL 102 103 CO2 26 25 BUN 16 17 CREATININE 0.93 0.97 Last 3 LFTs Recent Labs 08/10/18329 AST 40* ALT 71* ALKPHOS 83 BILITOT 0.2 BILIDIR 0.1 Last 3 Lipids Recent Labs 08/10/1832908/09/182134 CHLPL -- 161 HDL -- 33 LDLDIRECT -- 90 TRIG 291 -- Pending Studies and Lab Data: The patient will need the following 3 tests completed on: 08/09/2018 1. Urinalysis with reflex Culture 3. Prothrombin Time 2. APTT Diagnosis: Authorizing Provider: Sulaiman Lopez MD Vital Signs at Discharge: BP: 119/74, Heart Rate: 68, Temp: 37.3 ??C (99.1 ??F), Resp: 20, Height: 180.3 cm (5' 11) (reported) (08/10/18 1500) Weight: 127.6 kg (281 lb 4.9 oz) (08/11/18 0515) Functional and Cognitive Status: Patient tolerated session well and was able to stand and ambulate under supervision (about 200 ft) without difficulties with a steady gait. He has no current complaints. very mild word finding difficulties and feeling cognitively off. Pt A&Ox4, following all commands, conversing appropriately throughout session. Demonstrated ability to ambulate a household distance safely without assist and perform LB dressing. He reports his will be able to assist if needed upon d/c Physical Exam at Discharge: Gen: Patient of apparent stated age, well nourished, well developed, awake, alert, NAD HEENT: Supple, no meningismus, no carotid bruit, no occipital tenderness CV: Regular rate, no murmurs, gallops or rubs appreciated Resp: good respiratory effort Abd: +normoactive bowel sounds, soft, nontender, nondistended Ext: No edema. No bony deformity Neuro Exam: MS: AAOx4, clear language, no dysarthria, follows commands appropriately CN: PERRL, EOMI, visual sherman full Facial sensation intact, no facial asymmetry Hearing intact to finger rub Palate elevates symmetrically, tongue protrudes midline SCM and trap strength intact Motor: Normal bulk and tone. UE: 5/5 R, 5/5 L Arm abduction at shoulder 5/5 R, 5/5 L Elbow extension 5/5 R, 5/5 L Elbow flexion 5/5 R, 5/5 L Press Machine Feeder LE: 5/5 R, 5/5 L Hip flexion 5/5 R, 5/5 L Knee extension 5/5 R, 5/5 L Knee flexion 5/5 R, 5/5 L Foot dorsiflexion 5/5 R, 5/5 L Foot plantar flexion Sensation: Intact to light touch, temperature, and vibration throughout Reflexes: DTRs Unable to obtain in biceps, triceps, brachioradialis, patellas or ankles Toes - R down, L down Coordination: Finger to nose intact, no overt dysmetria Rapid alternating movements & finger tapping smooth and symmetric Heel-sahu intact No tremor Gait: deferred Discharge Conditions/Prognosis: Stable/fair Discharge to: Home Updated Allergies/ADRs: Allergies Allergen [...] Specifically ask about this and similar medications: Alverda-3 Fatty Acids-Vitamin E (OMEGA-3 FISH OIL) 1,000-5 mg-unit Cap Continued medications, unchanged Dose Details BUPROBAN 150 mg Sr12 Take 150 mg by mouth 2 times daily. Generic drug: buPROPion 150 mg Refills: 0 clopidogrel 75 mg Tab Commonly known as: PLAVIX Take 1 tablet by mouth daily. 75 mg Quantity: 90 tablet Refills: 1 coQ10 (ubiquinol) 100 mg Cap Take 1 capsule by mouth daily. 1 capsule Refills: 0 diazePAM 5 mg Tab Commonly known as: VALIUM Take 5 mg by mouth every 6 hours as needed for Anxiety. 5 mg Refills: 0 isosorbide mononitrate 30 mg Tablet sr Commonly known as: IMDUR Take 30 mg by mouth daily. 30 mg Refills: 0 ketoconazole 2 % Sham Commonly known as: NIZORAL shampoo, rinse after 5-10 min, daily for flares or weekly for prevention. Quantity: 120 mL Refills: 3 LIPITOR 40 mg Tab 40 MG = 1 Tablet(s), PO, Once daily Generic drug: atorvastatin Refills: 0 loratadine 10 mg Tab Commonly known as: CLARITIN Take 10 mg by mouth daily. 10 mg Refills: 0 metoprolol succinate 100 mg Tablet [...] OIL 1,000-5 mg-unit Cap ?nk?wn!?? Generic drug: Alverda-3 Fatty Acids-Vitamin E Refills: 0 pantoprazole 40 mg Tbec Commonly known as: PROTONIX Take 1 tablet by mouth daily. 40 mg Quantity: 90 tablet Refills: 3 testosterone enanthate 200 mg/mL Oil Commonly known as: DELATESTRYL Inject into the muscle every 7 days. Patient injects 1.25 cc weekly Refills: 0 STOPPED Medications Acetylcarnitine 500 mg Cap aspirin 81 mg Tbec Smoking Status at Discharge: History Smoking Status ??? Former Smoker ??? Quit date: 08/10/2010 SECONDARY STROKE PREVENTION: Preventative measure Antithrombotic agent for stroke prevention (aspirin,clopidogrel, ticagrelor, therapeutic anticoagulation etc...) was Initiated. If documented history of atrial fibrillation/flutter, anticoagulation therapy was not prescribed due to no documented afib for stroke prevention. Cholesterol-lowering medication (including statins) was prescribed Smoking cessation: If patient smoked within the past year, smoking cessation counseling was not performed due to not recent smoker. Nicotine supplements were NA. Education: Stroke information packet provided to patient and/or family, which included personal modifiable risk factors for stroke, stroke warning signs and symptoms, how to activate EMS for stroke, and need for follow-up after discharge was performed. Modified Janette Score (MRS) on discharge Score Description 0 No symptoms at all 1 No significant disability despite symptoms; able to carry out all usual duties and activities 2 Slight disability; unable to carry out all previous activities, but able to look after own affairs without assistance 3 Moderate disability; requiring some help, but able to walk without assistance 4 Moderately severe disability; unable to walk without assistance 5 Severe disability; bedridden, incontinent and requiring constant nursing care and attention 6 Total Score: 1 NIH Stroke Scale at Discharge Evaluation: 1.a. Level of consciousness: 0-Alert 1-Not alert, but arousable with minimal stimulation 2-Not alert, requires repeat stimulation to attend 3-Coma 1.b. Ask patient the month and their age: 0-Answers both correctly 1-Answers one correctly 2-Both incorrect 1.c. Ask patient to open and close eyes: 0-Obeys both correctly 1-Obeys one correctly 2-Both incorrect 2. Best gaze (horizontal eye movement): 0-Normal 1-Partial gaze palsy 2-Forced deviation 3. Visual field testin-No visual field loss 1-Partial hemianopia 2-Complete hemianopia 3-Bilateral hemianopia (blind including cortical blindness) 4. Facial paresis (Ask patient to show teeth or raise eyebrows and close eyes tightly): 0-Normal symmetrical movement 1-Minor paralysis (flattened nasolabial fold, asymmetry on smiling) 2-Partial paralysis (total or near paralysis of lower face) 3-Complete paralysis of one or both sides (absence of facial movement in the upper and lower face) 5. Motor function right arm: 0-Normal (extends arm 90 degrees for 10 seconds without drift) 1-Drift 2-Some effort against gravity 3-No effort against gravity 4-No movement 9-Untestable (Joint fused or limb amputated) 5. Motor function- left arm: 0-Normal (extends arm 90 degrees for 10 seconds without drift) 1-Drift 2-Some effort against gravity 3-No effort against gravity 4-No movement 9-Untestable (Joint fused or limb amputated) 6. Motor function right le-Normal (extends leg 30 degrees for 5 seconds without drift) 1-Drift 2-Some effort against gravity 3-No effort against gravity 4-No movement 9-Untestable (Joint fused or limb amputated) 6. Motor function-left le-Normal (extends leg 30 degrees for 5 seconds without drift) 1-Drift 2-Some effort against gravity 3-No effort against gravity 4-No movement 9-Untestable (Joint fused or limb amputated) 7. Limb ataxia: 0-No ataxia 1-Present in one limb 2-Present in two limbs 8. Sensory (Use pinprick to test arms, legs, trunk and face compare side to side): 0-Normal 1-Mild to moderate decrease in sensation 2-Severe to total sensory loss 9. Best language (describe picture, name items, read sentences): 0-No aphasia 1-Mild to moderate aphasia 2-Severe aphasia 3-Mute 10. Dysarthria (read several words): 0-Normal articulation 1-Mild to moderate slurring of words 2-Near unintelligible or unable to speak 9-Intubated or other physical barrier 11. Extinction and inattention: 0-Normal 1-Inattention or extinction to bilateral simultaneous in one of the sensory modalities 2-Severe marcela-inattention or marcela-inattention to more than one modality TOTAL SCORE: 0 Instructions Given to Patient at Discharge: There are no outpatient Patient Instructions on file for this admission. General Instructions None Future Appointments and Orders Future Appointments Provider Department Dept Phone 08/31/2018 2:00 PM Niki Zamorano MD Neurology at [facility] [phone] Future Orders Complete By Alina Collier [[email or web address] Custom] 08/11/2018 (Approximate) 02/10/2019 Process Instructions: Scheduling Instructions: Questions: Does the patient have a pacemaker? If yes provide HI/LO settings: Which location will this be performed?: [facility] Primary Care Provider: Vel Santos MD [address] [place] [address] Discharge References/Attachments None documented in this encounter Discharge Instructions * Attachments The following attachments cannot be sent through Care Everywhere. * STROKE (SYRIAN) * STROKE REHABILITATION: GENERAL INFO (SYRIAN) * STROKE: EMOTIONS: GENERAL INFO (SYRIAN) * STROKE: SYMPTOMS: GENERAL INFO (SYRIAN) documented in this encounter Medications at Time [...] for prevention. 120 mL 3 08/10/2015 08/12/2023 Alverda-3 Fatty Acids-Vitamin E (OMEGA-3 FISH OIL) 1,000-5 mg-unit Cap 11/13/2010 09/09/20 atorvastatin (LIPITOR) 40 mg tablet 40 MG = 1 Tablet(s), PO, Once daily 11/13/2010 08/12/2023 metoprolol succinate (TOPROL-XL) 100 mg XL tablet Take by mouth. 11/13/2010 08/12/2023 documented as of this encounter Progress Notes * Toni Mittal RN - 08/11/2018 2:02 PM EDT No complaints, no pain. Neuro checks negative save baseline L eye blindness + BLE neuropathy, and ?New anascoria. Discharge instructions given, questions answered. IV removed. Pt to go to Cardiac clinic for Zio patch upon discharge. Directions given. Pt discharged without incident. * Niki Zamorano MD - 08/11/2018 6:55 AM EDT Vascular Neurology Progress Note Patient name: Roland Vega Date of : 1950 PCP: Vel Santos MD ID : Roland Vega is a 68 y.o. right handed male with past medical history significant for hypertension, hyperlipidemia, history of CIDP, history of an STEMI (2010 and 2016 status post drug-eluting stents x3-on Plavix, peripheral neuropathy, asthma, prostate cancer (status post radical prostatectomy in 2004) who presents with TIA-like symptoms including R face numbness. NIHSS 0 on admission, however found with L frontal infarcts. Admitted for workup. Interval Events - Continued on DAPT and statin on admission - TTE with EF 65%, no LA thrombus - MRI Brain with acute L frontal infarct; CTA showing hyperdense L M2 vessel - Cardiology consulted yest, will plans to delay cath until 2-3 weeks -Overnight, VSS. NSR on tele all night with HR 40s-50s. SBP 100s - Doing well this am, no new complaints Current Medications: Scheduled Meds: ??? aspirin 81 mg Oral Daily ??? atorvastatin 40 mg Oral Daily ??? buPROPion 150 mg Oral BID ??? clopidogrel 75 mg Oral Daily ??? ubiquinone (coenzyme Q10) 100 mg Oral Daily ??? isosorbide mononitrate 30 mg Oral Daily ??? vitamin E 400 Units Oral Daily ??? pantoprazole 40 mg Oral Daily ??? sodium chloride 0.9 % 5 mL Intravenous BID ??? senna-docusate 2 tablet Oral BID ??? polyethylene glycol (MIRALAX)oral powder 17 g Oral Daily ??? enoxaparin 40 mg Subcutaneous Nightly ??? meTOPROLOL 12.5 mg Oral Q6H SERENITY Continuous Infusions: PRN Meds:.nitroGLYcerin, sodium chloride 0.9 %, lidocaine, magnesium hydroxide, bisacodyl, labetalol, acetaminophen OR acetaminophen OR acetaminophen Physical Exam: Vitals: Temp: [36.4 ??C (97.5 ??F)-36.8 ??C (98.2 ??F)] Heart Rate: [57-70] Resp: [14-20] BP: (106-147)/(60-78) SpO2: [93 %-97 %] Heart Rate from SPO2: [57 bpm-68 bpm] Gen: Patient of apparent stated age, well nourished, well developed, awake, alert, NAD HEENT: Supple, no meningismus, no carotid bruit, no occipital tenderness CV: Regular rate, no murmurs, gallops or rubs appreciated Resp: good respiratory effort Abd: +normoactive bowel sounds, soft, nontender, nondistended Ext: No edema. No bony deformity Neuro Exam: MS: AAOx4, clear language, no dysarthria, follows commands appropriately CN: PERRL, EOMI, visual sherman full Facial sensation intact, no facial asymmetry Hearing intact to finger rub Palate elevates symmetrically, tongue protrudes midline SCM and trap strength intact Motor: Normal bulk and tone. UE: 5/5 R, 5/5 L Arm abduction at shoulder 5/5 R, 5/5 L Elbow extension 5/5 R, 5/5 L Elbow flexion 5/5 R, 5/5 L Press Machine Feeder LE: 5/5 R, 5/5 L Hip flexion 5/5 R, 5/5 L Knee extension 5/5 R, 5/5 L Knee flexion 5/5 R, 5/5 L Foot dorsiflexion 5/5 R, 5/5 L Foot plantar flexion Sensation: Intact to light touch, temperature, and vibration throughout Reflexes: DTRs Unable to obtain in biceps, triceps, brachioradialis, patellas or ankles Toes - R down, L down Coordination: Finger to nose intact, no overt dysmetria Rapid alternating movements & finger tapping smooth and symmetric Heel-sahu intact No tremor Gait: deferred NIH Stroke Scale: (bold applicable choices) NIH Stroke Scale at discharge 1.a. Level of consciousness: 0-Alert 1-Not alert, but arousable with minimal stimulation 2-Not alert, requires repeat stimulation to attend 3-Coma 1.b. Ask patient the month and their age: 0-Answers both correctly 1-Answers one correctly 2-Both incorrect 1.c. Ask patient to open and close eyes: 0-Obeys both correctly 1-Obeys one correctly 2-Both incorrect 2. Best gaze (horizontal eye movement): 0-Normal 1-Partial gaze palsy 2-Forced deviation 3. Visual field testin-No visual field loss 1-Partial hemianopia 2-Complete hemianopia 3-Bilateral hemianopia (blind including cortical blindness) 4. Facial paresis (Ask patient to show teeth or raise eyebrows and close eyes tightly): 0-Normal symmetrical movement 1-Minor paralysis (flattened nasolabial fold, asymmetry on smiling) 2-Partial paralysis (total or near paralysis of lower face) 3-Complete paralysis of one or both sides (absence of facial movement in the upper and lower face) 5. Motor function right arm: 0-Normal (extends arm 90 degrees for 10 seconds without drift) 1-Drift 2-Some effort against gravity 3-No effort against gravity 4-No movement UT-Untestable (Joint fused or limb amputated) 5. Motor function- left arm: 0-Normal (extends arm 90 degrees for 10 seconds without drift) 1-Drift 2-Some effort against gravity 3-No effort against gravity (but baseline) 4-No movement UT-Untestable (Joint fused or limb amputated) 6. Motor function right le-Normal (extends leg 30 degrees for 5 seconds without drift) 1-Drift 2-Some effort against gravity 3-No effort against gravity 4-No movement UT-Untestable (Joint fused or limb amputated) 6. Motor function-left le-Normal (extends leg 30 degrees for 5 seconds without drift) 1-Drift 2-Some effort against gravity 3-No effort against gravity 4-No movement UT-Untestable (Joint fused or limb amputated) 7. Limb ataxia: 0-No ataxia 1-Present in one limb 2-Present in two limbs 8. Sensory (Use pinprick to test arms, legs, trunk and face compare side to side): 0-Normal 1-Mild to moderate decrease in sensation 2-Severe to total sensory loss 9. Best language (describe picture, name items, read sentences): 0-No aphasia 1-Mild to moderate aphasia 2-Severe aphasia 3-Mute 10. Dysarthria (read several words): 0-Normal articulation 1-Mild to moderate slurring of words 2-Near unintelligible or unable to speak UT-Intubated or other physical barrier 11. Extinction and inattention: 0-Normal 1-Inattention or extinction to bilateral simultaneous in one of the sensory modalities 2-Severe marcela-inattention or marcela-inattention to more than one modality TOTAL SCORE: 0 Labs: Recent Results (from the past 24 hour(s)) Prothrombin Time Result Value Ref Range PT 12.7 (H) 9.4 - 12.5 sec INR 1.1 APTT Result Value Ref Range PTT 28 25 - 37 sec Prothrombin Time Result Value Ref Range PT 12.3 9.4 - 12.5 sec INR 1.1 Diagnostic Tests and Imaging: MRI Brain IMPRESSION Small, cortically-based left MCA territory infarct involving the left frontal Lobe. TTE SUMMARY: 1. Moderate concentric left ventricular hypertrophy is [...] dilated. Otherwise, no significant change was found. Assessment and Plan: Roland Vega is a 68 y.o. right handed male with past medical history significant for hypertension, hyperlipidemia, history of CIDP, history of prior atrial fibrillation (not on anticoagulation), history of an STEMI (2010 and 2017 status post drug-eluting stents x3-on Plavix, peripheral neuropathy, asthma, prostate cancer (status post radical prostatectomy in 2004) who presents with TIA-like symptoms of right facial numbness, resolved on admission. NIHSS 0. Found with acute L frontal infarct this course, which corresponds to presenting sx. Etiology of stroke is concerning for cardioembolism given nature/location and hx of afib. He was monitored closely on tele without evidence of afib, but this is certainly our main suspicion currently. Will continue DAPT given concurrent intracranial vessel disease. Continue home statin. He has been seen by cardiology who will delay his planned outpt cath until 2-3 weeks post stroke. Pt was clearedfor home discharge. Given ongoing concern for cardiac etiology, will dc with ziopatch, dapt and statin. Plan to follow up in 2 weeks #Left MCA infarct -Admit to neurology, floor level of care -Neuro check & vitals Q4hrs / Q4hrs -Permissive HTN, treat SBP >220 with prn labetalol, enalaprilat -Continue aspirin 81 mg daily -Continue on home plavix -Continue on home atorvastatin 40 mg QD -PT/OT--cleared for home discharge # Depression -Continue home bupropion 150 mg BID #Housekeeping -Continue home metoprolol -Continue on home ubiquinol 100 mg daily -Continue on home indoor 30 mg daily -Continue on home pantoprazole 40 mg daily -Vitamin D 400 units in the lieu of home fish oil -Hold home nystatin cream -Hold home loratadine 10 mg daily -Hold home testosterone q. weekly # Prophylaxis -Lovenox 40mg SC daily -RBOs -SCDs # Supportive care -Regular diet Dispo- home today # FULL code Bethany Mckinnon MD 08/11/18 Neurology Resident - PGY-3 Vascular Neurology team pager [phone] Neurology Attending Attestation I evaluated the patient with the Neurology Residents during bedside rounds on 08/11/2018. I have reviewed the medical records and patient's history, as well as the resident???s and student's history and examination findings and I agree with the details as written. My neurologic examination confirmsthe resident???s findings. We formulated the assessment and plan after a detailed discussion, as documented. Niki Zamorano MD Vascular Neurology Standard [facility] [place] Swallow Screen: This screen is to be used to document a Swallow Screen prior to ingestion of water and /or oral medications for patients with possible stroke (Ischemic or Hemorrhagic). Exclusion Criteria: A swallow screen is not to be performed on patients who: ?? have a decreased level of consciousness. ?? are not able to follow simple commands. ?? are hypoxic, or have increasing O2 needs or may need to be intubated. ?? have a G/J tube for nutrition. ?? have a recent history of a swallowing disorder *These patients should remain NPO (HOLD MEDS) and the physician notified for further orders. Swallow Screen Using Water: None of the Exclusion Criteria as mentioned above is present? Patient is alert and sitting upright? Able to close lips and tongue is midline? Able to cough, manage oral secretions with dry voice? ONLY IF ABOVE ALL YES, Able to swallow 30 ml of water without coughing, displaying a wet voice or choking? Repeat Twice. ??? If YES to all responses, proceed with water and oral medications as well as diet as medical provider deems appropriate. 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 ??? If NO to any of the responses, stop immediately, keep patient NPO and notify physician. ??? * Zarina Jonas RN - 08/10/2018 5:16 PM EDT Roland arrived from ED. Alert and Ox4. Neuro check WDL. Connected to tele SB/NSR. Oriented to room and call light. MRI safety sheet filled out and premedicated with one time dose of IV ativan before patient went for MRI of head. Plan is to monitor with Q4hr neuro check MRI results pending * Ernst Quintana RN - 08/10/2018 2:42 PM EDT Report called to accepting RN on [facility]. All questions answered, all belongings to be sent with patient. Will continue to monitor until transpo arrives * Sharron Galvez RN - 08/10/2018 6:59 AM EDT Upon review of MRI safety sheet with patient he stated I am claustrophobic, I need to be completely out to do an MRI, not even aware at all of what's happening or where I am, sedated. Pt also stated he has cardiac stents that may not be MRI safe, pt has cards with more info about stents and MRI for MDs to review. Pt states he has had metal in eyes before but it was taken out. documented in this encounter H&P Notes * Bennett Batista MD - 08/10/2018 12:15 AM EDT Neurology Admission History and Physical Patient name: Roland Vega Date of : 1950 PCP: Vel Santos MD Onset of symptoms (if witnessed) or time of symptom discovery: 500 PM Last known well: 445 PM Stroke Alert Activated: N/A CC: Right facial numbness and right tongue numbness HPI: Roland Vega is a 68 y.o. right handed male with past medical history significant for hypertension, hyperlipidemia, history of CIDP, history of an STEMI (2010 and 2016 status post drug-eluting stents x3-on Plavix, peripheral neuropathy, asthma, prostate cancer (status post radical prostatectomy in 2004) who presents with TIA-like symptoms. Patient notes that around 5 PM today he had sudden onset of right scalp and face numbness which also included the right side of his tongue. This lasted for several minutes then went away. He denies any symptoms in his right arm or leg at the time of onset. During the onset he fell as though he could not control his tongue. While this was all happening patient noted to his that he felt as though he was having a stroke. Based on that his got him ready to come to the emergency department. They stopped to get a bite to eat and patient had a repeat of his symptoms, which included right scalp, face, right tongue numbness. This once again lasted for several minutes and then dissipated. Upon presentation to the emergency department his symptoms had subsided and were no longer apparent. He describes difficulty finding words but notes that his did not notice any slurred speech during his conversations with her leaving up to his presentation to the emergency department. Patient notes that he took 3x325 mg aspirins at the onset of his symptoms. He notes that he takes ababy aspirin daily and is on Plavix as well. Patient notes that he is has an appointment to have a cardiac catheterization done on 1 week ago he was having dizziness with exertion and to believe that he may have a cardiac cause. Denies history of headaches or seizures. Current Medications: Scheduled Meds: ??? aspirin 81 mg Oral Daily ??? atorvastatin 40 mg Oral Daily ??? buPROPion 150 mg Oral BID ??? clopidogrel 75 mg Oral Daily ??? coQ10 (ubiquinol) 1 capsule Oral Daily ??? isosorbide mononitrate 30 mg Oral Daily ??? vitamin E 400 Units Oral Daily ??? pantoprazole 40 mg Oral Daily ??? sodium chloride 0.9 % 5 mL Intravenous BID ??? senna-docusate 2 tablet Oral BID ??? polyethylene glycol (MIRALAX)oral powder 17 g Oral Daily ??? [START ON 08/11/2018] enoxaparin 40 mg Subcutaneous Nightly Continuous Infusions: PRN Meds:.nitroGLYcerin, sodium chloride 0.9 %, lidocaine, magnesium hydroxide, bisacodyl, labetalol, acetaminophen OR acetaminophen OR acetaminophen Past Medical & Surgical History: Past Medical History: Diagnosis Date ??? Malignant neoplasm of prostate 03/31/2017 Past Surgical History: Procedure Laterality Date ??? PRO COLONOSCOPY, DIAGNOSTIC 03/08/2014 COLONOSCOPY, DIAGNOSTIC performed by Brandy Dickerson MD at [facility] Home Medications: No current facility-administered medications on file prior to encounter. Current Outpatient Prescriptions on File Prior to Encounter Medication Sig Dispense Refill ??? pantoprazole (PROTONIX) 40 mg Tablet, Delayed Release (E.C.) Take 1 tablet by mouth daily. 90 tablet 3 ??? clopidogrel (PLAVIX) 75 mg Tablet Take 1 tablet by mouth daily. 90 tablet 1 ??? aspirin 81 mg Tablet, Delayed Release (E.C.) Take 81 mg by mouth daily. ??? nystatin (MYCOSTATIN) Cream Apply to affected [...] weekly for prevention. 120 mL 3 ??? Alverda-3 Fatty Acids-Vitamin E (OMEGA-3 FISH OIL) 1,000-5 mg-unit Cap ??? atorvastatin (LIPITOR) 40 mg tablet 40 MG = 1 Tablet(s), PO, Once daily ??? metoprolol succinate (TOPROL-XL) 100 mg XL tablet 100 MG = 1 Tablet(s), PO, Once daily ??? loratadine (CLARITIN) 10 mg Tablet Take 10 mg by mouth daily. ??? diaZEPam (VALIUM) 5 mg Tablet Take 5 mg by mouth every 6 hours as needed for Anxiety. ??? [DISCONTINUED] Acetylcarnitine 500 mg Capsule Take 1 capsule by mouth daily. ??? nitroGLYcerin (NITROSTAT) 0.4 mg SL tablet 0.4 MG = 1 Tablet(s), Sublingual, prn Allergy: Allergies Allergen Reactions ??? Cis Free Text Allergy Swordfish. CIS - Anaphylaxis ??? Cis Free Text Allergy Swordfish. CIS - Anaphylaxis ??? Lisinopril Angioedema Tongue swelling ??? Sulfa (Sulfonamide Antibiotics) CIS - Anaphylaxis, CIS - Anaphylaxis, CIS - Anaphylaxis ??? Hydroxychloroquine Sulfate CIS - visual changes, CIS - visual changes ??? Nsaids (Non-Steroidal Anti-Inflammatory Drug) CIS - swelling, CIS - swelling Family History: No family history on file. 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 Marital status: Spouse name: N/A ??? Number of children: N/A ??? Years of education: N/A Occupational History ??? Not on file. Social History Main Topics ??? Smoking status: Former Smoker Quit date: 08/10/2010 ??? Smokeless tobacco: Never Used ??? Alcohol use 8.4 oz/week 14 Glasses of wine per week ??? Drug use: No ??? Sexual activity: Not on file Other Topics Concern ??? Not on file Social History Narrative Review of systems: Constitutional: No fevers or chills Eyes: No vision changes, no diplopia, no blurry vision ENT: No rhinorrhea or pharyngitis, no meningismus CV: No chest pain or palpitations Resp: No cough, no shortness of breath GI: No nausea, vomiting, diarrhea or constipation : No dysuria, no incontinence Heme: No bleeding or bruising Endo: No polyuria or cold intolerance Neuro: See HPI Psych: No depression, normal sleep [x] Review of systems otherwise negative Physical Exam: Vitals: Temp: [36.2 ??C (97.1 ??F)-36.8 ??C (98.2 ??F)] Heart Rate: [54-69] Resp: [13-22] BP: (114-149)/(67-92) SpO2: [94 %-99 %] Heart Rate from SPO2: [50 bpm-64 bpm] Gen: Patient of apparent stated age, well nourished, well developed, awake, alert, NAD HEENT: Supple, no meningismus, no carotid bruit, no occipital tenderness CV: Regular rate, no murmurs, gallops or rubs appreciated Resp: good respiratory effort Abd: +normoactive bowel sounds, soft, nontender, nondistended Ext: No edema. No bony deformity Neuro Exam: MS: AAOx4, clear language, no dysarthria, follows commands appropriately CN: PERRL, EOMI, visual sherman full Facial sensation intact, no facial asymmetry Hearing intact to finger rub Palate elevates symmetrically, tongue protrudes midline SCM and trap strength intact Motor: Normal bulk and tone. UE: 5/5 R, 5/5 L Arm abduction at shoulder 5/5 R, 5/5 L Elbow extension 5/5 R, 5/5 L Elbow flexion 5/5 R, 5/5 L Press Machine Feeder LE: 5/5 R, 5/5 L Hip flexion 5/5 R, 5/5 L Knee extension 5/5 R, 5/5 L Knee flexion 5/5 R, 5/5 L Foot dorsiflexion 5/5 R, 5/5 L Foot plantar flexion Sensation: Intact to light touch, temperature, and vibration throughout Reflexes: DTRs Unable to obtain in biceps, triceps, brachioradialis, patellas or ankles Toes - R down, L down Coordination: Finger to nose intact, no overt dysmetria Rapid alternating movements & finger tapping smooth and symmetric Heel-sahu intact No tremor Gait: deferred NIH Stroke Scale: (bold applicable choices) NIH Stroke Scale at Initial Evaluation: 1.a. Level of consciousness: 0-Alert 1-Not alert, but arousable with minimal stimulation 2-Not alert, requires repeat stimulation to attend 3-Coma 1.b. Ask patient the month and their age: 0-Answers both correctly 1-Answers one correctly 2-Both incorrect 1.c. Ask patient to open and close eyes: 0-Obeys both correctly 1-Obeys one correctly 2-Both incorrect 2. Best gaze (horizontal eye movement): 0-Normal 1-Partial gaze palsy 2-Forced deviation 3. Visual field testin-No visual field loss 1-Partial hemianopia 2-Complete hemianopia 3-Bilateral hemianopia (blind including cortical blindness) 4. Facial paresis (Ask patient to show teeth or raise eyebrows and close eyes tightly): 0-Normal symmetrical movement 1-Minor paralysis (flattened nasolabial fold, asymmetry on smiling) 2-Partial paralysis (total or near paralysis of lower face) 3-Complete paralysis of one or both sides (absence of facial movement in the upper and lower face) 5. Motor function right arm: 0-Normal (extends arm 90 degrees for 10 seconds without drift) 1-Drift 2-Some effort against gravity 3-No effort against gravity 4-No movement UT-Untestable (Joint fused or limb amputated) 5. Motor function- left arm: 0-Normal (extends arm 90 degrees for 10 seconds without drift) 1-Drift 2-Some effort against gravity 3-No effort against gravity (but baseline) 4-No movement UT-Untestable (Joint fused or limb amputated) 6. Motor function right le-Normal (extends leg 30 degrees for 5 seconds without drift) 1-Drift 2-Some effort against gravity 3-No effort against gravity 4-No movement UT-Untestable (Joint fused or limb amputated) 6. Motor function-left le-Normal (extends leg 30 degrees for 5 seconds without drift) 1-Drift 2-Some effort against gravity 3-No effort against gravity 4-No movement UT-Untestable (Joint fused or limb amputated) 7. Limb ataxia: 0-No ataxia 1-Present in one limb 2-Present in two limbs 8. Sensory (Use pinprick to test arms, legs, trunk and face compare side to side): 0-Normal 1-Mild to moderate decrease in sensation 2-Severe to total sensory loss 9. Best language (describe picture, name items, read sentences): 0-No aphasia 1-Mild to moderate aphasia 2-Severe aphasia 3-Mute 10. Dysarthria (read several words): 0-Normal articulation 1-Mild to moderate slurring of words 2-Near unintelligible or unable to speak UT-Intubated or other physical barrier 11. Extinction and inattention: 0-Normal 1-Inattention or extinction to bilateral simultaneous in one of the sensory modalities 2-Severe marcela-inattention or marcela-inattention to more than one modality TOTAL SCORE: 0 Labs: Recent Results (from the past 24 hour(s)) Basic Metabolic Panel (non-fasting) Result Value Ref Range Glucose Lvl 102 65 - 199 mg/dL BUN 17 10 - 20 mg/dL Creatinine 0.97 0.80 - 1.50 mg/dL Sodium 141 135 - 145 mmol/L Potassium 3.9 3.5 - 5.0 mmol/L Chloride 103 98 - 107 mmol/L CO2 25 22 - 31 mmol/L Anion Gap 13 5 - 15 mmol/L Calcium 9.4 8.5 - 10.5 mg/dL eGFR 80 >=60 mL/min/1.73 m?? eGFR 93 >=60 mL/min/1.73 m?? Troponin Result Value Ref Range Troponin-T <0.01 0.00 - 0.00 ng/mL HDL/Cholesterol Profile Result Value Ref Range Chol, Total 161 mg/dL HDL 33 mg/dL Chol/HDL Ratio 4.9 ratio Chol/HDL Interpretation See Note LDL Cholesterol, Direct Result Value Ref Range LDL Chol Direct 90 mg/dL Hemogram Result Value Ref Range WBC 5.6 4.0 - 9.5 x10(3)/mcL RBC 4.35 (L) 4.58 - 5.54 x10(6)/mcL Hemoglobin 13.3 (L) 13.7 - 16.5 gm/dL Hematocrit 40.4 (L) 40.5 - 48.5 % MCV 92.9 82.9 - 93.1 fL MCH 30.6 27.5 - 32.1 pg MCHC 32.9 32.0 - 35.7 gm/dL Platelets 161 145 - 357 x10(3)/mcL RDWSD 44.2 36.0 - 45.0 fL RDWCV 13.1 11.4 - 13.8 % MPV 9.6 7.6 - 12.9 fL nRBC % Auto 0.0 % nRBC Abs Auto 0.000 0.000 - 0.000 x10(3)/mcL Differential, Automated Result Value Ref Range Neutrophils % 51.6 % Neutr Abs (ANC) 2.90 1.70 - 6.10 x10(3)/mcL Lymphocytes % 37.0 % Lymphocytes Abs 2.1 0.9 - 3.2 x10(3)/mcL Monocytes % 8.9 % Monocyte Abs 0.5 0.3 - 0.9 x10(3)/mcL Eosinophils % 1.6 % Eosinophils Abs 0.1 0.0 - 0.4 x10(3)/mcL Basophils % 0.5 % Basophils Abs 0.0 0.0 - 0.1 x10(3)/mcL Immature Gran % 0.40 % Amanda Gran Abs 0.02 0.00 - 0.04 x10(3)/mcL Blue Tube HOLD Result Value Ref Range Blue Hold Sample in lab. Gold Tube HOLD Result Value Ref Range Gold Hold Sample in lab. Diagnostic Tests and Imaging: Head CT w/out: [address] Spann IMPRESSION 1. Acute left MCA division infarct. 2. Hyperdense filling defect in the left M2 division as above is concerning for embolic calcium in the setting of an acute infarct. Focal atherosclerosis is also a consideration, but less likely. 3. No acute intracranial hemorrhage. 4. Unexpected findin mm nodule seen in the superior segment of the left lower lobe. If the patient is high-risk for malignancy, consider follow-up CT in one year. Otherwise, no follow-up is needed as per Fleischner Society guidelines 2017. Swallow Screen Results: PASSED (All YES responses) Time 1211 AM Assessment and Plan: Roland Vega is a 68 y.o. right handed male with past medical history significant for hypertension, hyperlipidemia, history of CIDP, history of atrial fibrillation (not on anticoagulation), history of an STEMI (2010 and 2017 status post drug-eluting stents x3-on Plavix, peripheral neuropathy, asthma, prostate cancer (status post radical prostatectomy in 2004) who presents with TIA-like symptoms. The symptoms localize to left MCA territory and likely etiology is due cardioembolism. Will admit patient for continued stroke workup including MRI brain and cardiac ECHO. Patient also asked about his cardiac catheterization scheduled for Thursday and this will unfortunately, most likely be pushedback. Thrombolytics were considered and not given secondary to Stroke severity too mild and out of time window . 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 weekly # Prophylaxis -Lovenox 40mg SC daily -RBOs -SCDs # Supportive care -Regular diet -Tylenol PRN -Up with assistance # FULL code Bennett Batista MD Neurology Resident - PGY-3 Vascular Neurology (Stroke) team pager: [phone] 08/10/18 Standard [facility] Swallow Screen: This screen is to be used to document a Swallow Screen prior to ingestion of water and /or oral medications for patients with possible stroke (Ischemic or Hemorrhagic). Exclusion Criteria: A swallow screen is not to be performed on patients who: ?? have a decreased level of consciousness. ?? are not able to follow simple commands. ?? are hypoxic, or have increasing O2 needs or may need to be intubated. ?? have a G/J tube for nutrition. ?? have a recent history of a swallowing disorder *These patients should remain NPO (HOLD MEDS) and the physician notified for further orders. Swallow Screen Using Water: None of the Exclusion Criteria as mentioned above is present? Patient is alert and sitting upright? Able to close lips and tongue is midline? Able to cough, manage oral secretions with dry voice? ONLY IF ABOVE ALL YES, Able to swallow 30 ml of water without coughing, displaying a wet voice or choking? Repeat Twice. ??? If YES to all responses, proceed with water and oral medications as well as diet as medical provider deems appropriate. 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 ??? If NO to any of the responses, stop immediately, keep patient NPO and notify physician. ??? Associated attestation - Niki Zamorano MD - 08/10/2018 5:24 PM EDT I have reviewed the above resident's history during the visit and I agree with the details as written. My physical examination confirms the resident's findings. The assessment and plan were formulated in discussion with me at the time of the visit and I agree with them as documented. I have examined the patient myself and personally reviewed all studies. In addition, I certify thatI am a D-H credentialed attending provider with admitting privileges and that the patient meets or has met medical necessity to require an inpatient IPI level of care meeting a minimum of two midnights or is on the CMS inpatient only procedure list (status C) due to: - neurologic instability requiring neurologic checks at least every 4 hours. - acute stroke requiring neurologic checks at least every 4 hours. MCCs and CCs on admission (Present if in bold): Clinically significant cerebral edema, vasogenic Hyponatremia CHF acute, systolic Brain compression Hypernatremia CHF acute on chronic, systolic Clinically significant cerebral edema, cytotoxic Cerebellar ataxia CHF acute on chronic, diastolic Coma Hypertension, malignant CHF acute diastolic Hemiplegia Hypertension accelerated CHFchronic diastolic Hemiparesis Hypertensive encephalopathy Dementia with delrium Quadraplegia Malnutrition BMI<19 Dementia with depression Encephalopathy, metabolic Cachexia Alzheimer's Dementia with behavioral disturbance Encephalopathy, toxic Morbid obesity, BMI>40 Anoxic brain damage Encephalopathy, other CKD stage 4 (eGFR 15-30ml/min/1.73m2) Acute Kidney Injury Delirium, drug induced CKD stage 5 or ESRD documented in this encounter ED Notes * Nydia Kirk RN - 08/10/2018 2:15 AM EDT 2044; Introductions made to patient, lying supine on stretcher with HOB elevated. Awake and alert, oriented x4, reports that his symptoms have resolved at this time. When symptoms initially began he felt a weird sensation in his head, numbness and alteration in sensation to the right side of his face and the right side of his tongue. Does not recall any extremity involvement, does not recalland facial droop. She exited the room and quickly returned and patient felt as though his symptoms were resolving. Patient reports he felt he had to speak very deliberately and endorses it seemed like he was speaking slowly and had difficulty expressing words. Patient reports he has had issues with his cognition ongoing for ~6 months, described very vaguely a bizarre event that caused him to go to the ER for similar symptoms of feeling as though he wasn't right in his mind and reports he felt great two days after that episode. 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 Patient has history of intermittent atrial fibrillation, reports he has history of going in and out but was random whereas now he notes that he feels palpitation after climbing stairs or stress/exertion. Patient was seen at OSH last week for cardiac work up with was negative and has cardiac cath scheduled for this week here at [facility]. Has had blockages and stents in the past. PERRLA, no facial droop, tongue midline, motor and sensation present and equal in upper extremities. Motor intact to legs with altered sensation though has this at baseline from neuropathy. Explained call ramirez to patient and spouse, pending provider evaluation. 2134; IV access established to right antecubital, blood work obtained as ordered. Patient toleratedwell. Patient verified with two identifiers and labeled at the bedside. Dr. Corbett at bedside. 2145; Patient to CT via stretcher with INSPECTOR GOLF BALL. 2245; Pending disposition, VS stable. 2305; Patient resting with eyes closed. 2340; Patient requesting food, to remain NPO at this time. Warm blanket provided, lights out, awaiting neurology. 0010; Neurology at bedside. 0030; Patient transferred to hospital bed in room 13, ambulatory from hallway into room, gait steady without incident. Neuro exam unchanged. Requesting food, will check with neurology. 0050; Food provided, patient with call ramirez in reach. NAD. 0215; Report to GLORIA Mcdermott. * Octavio Kerr T - 08/09/2018 9:06 PM EDT Chief Complaint Patient presents with ??? Numbness ??? Blurred Vision HPI 68M with a PMH of CAD c/b NSTEMI nd 04/2017 s/p DESx3 on plavix, stocking- glove peripheral neuropathy, asthma, prostate cancer s/p radical prostatectomy in 2004, HLD who presents with stuttering TIA symptoms. Patient had sudden-onset R scalp and R facial numbness (unclear if forehead spared) along with tongue numbness on R lasting a few minutes which came on at 5:30PM today. Had associated mild dizziness but no other FNDs. Symptoms completely resolved and patient opted to come to ED. Had second episode of similar symptoms while stopping for dinner on the way to the ED around 8PM, again lasting just a few minutes. Does have a history of AF for the last 20 years and not on AC. Allergies Allergen Reactions ??? Cis Free Text Allergy Swordfish. CIS - Anaphylaxis ??? Cis Free Text Allergy Swordfish. CIS - Anaphylaxis ??? Lisinopril Angioedema Tongue swelling ??? Sulfa (Sulfonamide Antibiotics) CIS - Anaphylaxis, CIS - Anaphylaxis, CIS - Anaphylaxis ??? Hydroxychloroquine Sulfate CIS - visual changes, CIS - visual changes ??? Nsaids (Non-Steroidal Anti-Inflammatory Drug) CIS - swelling, CIS - swelling Review of Systems Constitutional: Negative for appetite change and fever. HENT: Negative for rhinorrhea and sore throat. Eyes: Negative for visual disturbance. Respiratory: Negative for cough and shortness of breath. Cardiovascular: Negative for chest pain. Gastrointestinal: Negative for abdominal pain, nausea and vomiting. Genitourinary: Negative for dysuria and frequency. Skin: Negative for rash. Neurological: Positive for dizziness and numbness. Negative for light-headedness and headaches. Psychiatric/Behavioral: Negative for confusion. Physical Exam BP 138/83 (Patient Position: Lying) Pulse 61 Temp 36.8 ??C (98.2 ??F) (Oral) Resp 21 Wt 127kg (280 lb) SpO2 97% BMI 39.05 kg/m2 GEN: awake, alert; appears well and in NAD HEENT: MMM, PERRL NECK: supple CV: RRR w/o MRG PULM: normal WOB on RA; CTAB ABD: soft, ND, NT EXT: WWP NEURO: philosophy specialist 2-12 intact; UE and LE strength 5/5; gait steady and balanced; finger-nose and heel-shintesting intact. Normal sensation to LT on BL upper extremities; reduced sensation to LT extending from feet to distal shins; otherwise normal sensation to LT on BL lower extremities. DERM: no rash or other lesion PSYCH: appropriate behavior and speech Procedures MDM and ED Course: Patient is 68 yo M with AF not on AC and with history of vascular disease who presents with fluctuating stroke-like symptoms found to have acute L MCA infarct. Patient has had aspirin 325 at home. Will be admitted to neurology for further risk factor modification and observation. I discussed the need for anticoagulation with patient given [id number] score of at least 4. CBC, BMP and troponin unremarkable. Octavio Kerr MD Resident 08/10/18 0001 Associated attestation - Brenna Corbett MD - 08/14/2018 9:40 AM EDT ED ATTENDING ATTESTATION The patient [...] my separate note. 68 YO M with significant cardiac disease presents with two episodes of transient facial numbness and word finding difficulty. Patient is well and non-toxic appearing with non-focal neurologic exam. CT demonstrates L MCA infarct, admitted to Neurology for ongoing management. documented in this encounter Miscellaneous Notes * Initial Assessments - Nina Gee RN - 08/11/2018 2:35 PM EDT Office of Care Management Initial Assessment Nina Gee RN reviewed record and discussed patient with Care Team. Source of Information: Patient and medical record Introduced self/reviewed role; services accepted. Admission order reviewed: # [id number] Date :08/10/2018 Attending of Record upon admission:John Reason for Hospitalization: Acute ischemic stroke Past Medical History: Diagnosis Date ??? Malignant neoplasm of prostate 03/31/2017 Hospitalizations Within the Past 30 Days: None Anticipated Length Of Stay (If known): discharging today Current Decision-Making Capacity: Self, A&Ox3, Full Capacity Advance Care Planning: Full Code <no information> Current Coping/Education/Information Needs: Coping well Current Functional Ability: independent Functional Status Prior to Admission: Independent Home Environment: lives with office is upstairs [address] [facility] [address] Social & Family Supports/Community Resources: Extended Emergency Contact Information Primary Emergency Contact: Xin Vega Address: [address] [place] [address] [facility] Mobile Relation: Spouse Secondary Emergency Contact: Sunshine Vega [facility] Mobile Relation: Child Behavioral Health History: n/a Substance Use/Abuse: Social History Substance Use Topics ??? Smoking status: Former Smoker Quit date: 08/10/2010 ??? Smokeless tobacco: Never Used ??? Alcohol use 8.4 oz/week 14 Glasses of wine per week Other Pertinent/Service Specific Information: n/a Health/Prescription Coverage: Primary Insurance: MEDICARE Payor: MEDICARE / Plan: MEDICARE PART A & B / Product Type: *No Product type* / Secondary Insurance: [employer] [facility] Prescription Coverage: yes Preferred Pharmacy: [facility] [address] [address] [facility] - [place], [place] - [address] [place] [address] Other: Primary Care Provider: Vel Santos MD [phone] Patient/Caregiver Goals of Treatment: discharge to home Potential Needs for Transition of Care: Rehab/SNF: na Home Health: na DME: NA Dialysis: NA Community Resources: n/a Transportation: Family or Friend Other: n/a Anticipated Barriers to Discharge/Special Considerations: None Plan: Patient will discharge when medically stable MR for discharge. A member of the Care Management team will continue to monitor progress, follow for continuity of care and assist with transition of care planning. Nina Gee [phone] * Plan of Care - Nayla Stahl RN - 08/11/2018 3:42 AM EDT Problem: Patient Care Overview Goal: Plan of Care Review Outcome: Ongoing (Interventions Implemented as Appropriate) 08/11/18 0335 Coping/Psychosocial Plan Of Care Reviewed With patient Plan of Care Review Progress progress toward functional goals as expected OUTCOME EVALUATION NOTE: OUTCOME SUMMARY: Mr. Vega had a good night. He was able to sleep in between care. q4 hour neuro checks were stable. Spoke with neuro team to confirm that cardiac cath was not taking place on 08/11/2018, as scheduled. Team confirmed that cardiology would like to hold off for two to three weeks. Sign and held orders for cardiac cath are from before this hospital admission. Vital signs remained stable, as charted. PLAN MOVING FORWARD: Plan for medication management and possible discharge. Awaiting reads on MRI from team INDIVIDUALIZED FALL PREVENTION INTERVENTIONS: Patient-specific fall risk factors per assessment: [current deficits]: Generalized weakness Assistance [level of assistance required for transfers and ambulation]: Standby assist when out of bed. Rings appropriately Supervision [direct monitoring required during toileting and ADLs]: Direct supervision when pt is out of bed Surveillance [continuous indirect monitoring]: Continuous indirect monitoring through tele Patient-specific fall prevention interventions for sensory deficits provided, if applicable: [X] N/A CPG GOAL OUTCOME EVALUATION: Goal outcome is ongoing Goal: Fall Prevention-Safe Patient Handling Outcome: Ongoing (Interventions Implemented as Appropriate) 08/10/18 1720 08/10/18199908/11/18 0200 Holden Fall Risk History of Falling -- 0 -- Secondary Diagnosis -- 15 -- Ambulatory Aids -- 0 -- Intravenous Therapy/Heparin/Saline Lock -- 20 -- Gait/Transferring -- 0 -- Mental Status -- 0 -- Score -- 35 -- OTHER Holden Fall Risk -- Med -- Restraint Interventions Safety Promotion/Fall Prevention -- -- safety round/check completed Positioning Body Position -- independent -- Activity Activity Type activity adjusted per tolerance -- -- Activity Assistance Provided assistance, stand-by -- -- Assistive Device Utilized none -- -- Goal: Infection Control Outcome: Ongoing (Interventions Implemented as Appropriate) 08/10/181999 Safety Interventions Isolation Precautions standard precautions maintained Infection Prevention single patient room provided;rest/sleep promoted Coping Strategies Supportive Measures active listening utilized;self-care encouraged;verbalization of feelings encouraged Goal: Discharge Needs Assessment Outcome: Ongoing (Interventions Implemented as Appropriate) 08/11/18334 Discharge Needs Assessment Concerns To Be Addressed no discharge needs identified Current Health Anticipated Changes Related to Illness none Activity/Self Care Review of Systems Equipment Currently Used at Home none Living Environment Transportation Available family or friend will provide Goal: Interdisciplinary Rounds/Family Conf Outcome: Ongoing (Interventions Implemented as Appropriate) 08/11/185 Interdisciplinary Rounds/Family Conf Participants patient * Plan of Care - Ritchie Lewis OT - 08/10/2018 3:50 PM EDT Occupational Therapy Evaluation Pertinent History of Current Problem: Roland Vega is a 68 y.o. right handed male with past medical history significant for hypertension, hyperlipidemia, history of CIDP, history of an STEMI (2016 status post drug-eluting stents x3-on Plavix, peripheral neuropathy, asthma, prostate cancer (status post radical prostatectomy in 2004) who presents with TIA-like symptoms. Precautions Comments: fall risk Assessment: Pt has been seen for occupational therapy evaluation, please refer to associated flowsheet data listed below for details. Roland Vega presents with the following performance skill deficits and client factors: very mild word finding difficulties and feeling cognitively off. Pt A&Ox4, following all commands, conversing appropriately throughout session. Demonstrated ability to ambulate a household distance safely without assist and perform LB dressing. He reports his will be able to assist if needed upon d/c. Anticipate that pt will return home with assistance once medically ready. Do not anticipate further OT needs while hospitalized. Staff Recommendations: Encourage OOB activity and participation in all self care tasks; supervision Anticipated Discharge Disposition: home Pager: [phone] RITCHIE LEWIS OT 08/10/2018 Occupational Therapy Rehabilitation Department 2017 OT Evaluation Code Rationale: ?? Diagnosis & Pertinent Co-Morbidities affecting Plan of Care: see PMHx ?? Occupational Profile & Client History: Brief Expanded Extensive X ?? Assessment of Occupational Performance: 1-3 performance deficits X 3-5 performance deficits 5 + performance deficits ?? Clinical Decision Making: Low Moderate High X Clinical decision making of low complexity using standardized patient assessment instrument and measurable assessment of functional outcome. 08/10/18 1311 Rehab Evaluation Document Type evaluation Total Evaluation Minutes, Occupational Therapy 23 (eval) Patient Effort excellent Symptoms Noted During/After Treatment none General Information Patient/Family/Caregiver Comments/Observations I have trouble finding words but I'm ok right now. Pertinent History of Current Problem Roland Vega is a 68 y.o. right handed male with past medical history significant for hypertension, hyperlipidemia, history of CIDP, history of an STEMI (2010 and 2016 status post drug-eluting stents x3-on Plavix, peripheral neuropathy, asthma, prostate cancer (status post radical prostatectomy in 2004) who presents with TIA-like symptoms. Hearing Precautions/Limitations WFL Precautions Comments fall risk Treatment Number OT 1 Living Environment Patient population Adult Living Environment Living Environment Comment Pt lives with , currently at a motel they are rennovating. They are staying on the first floor. 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 Self-Care Dominant Hand right Vision Assessment/Intervention Additional Documentation (vision baseline, denies changes, wears glasses) Cognitive Assessment Interventions Behavior/Mood Observations (Cognitive) alert;cooperative;behavior appropriate to situation Orientation Status (Cognitive) oriented x 4 Attention (Cognitive) WNL/WFL Follows Commands/Answers Questions (Cognitive) able to follow multi-step instructions Personal Safety (Cognitive) good awareness, safety precautions Cognitive Assessment/Interventions Comment very mild word finding deficits Pain Scale/Rating Pain Assessment Scale Numbers (Numeric Rating Pain Scale) Pain Level 0 Bed Mobility Assessment/Treatment Tyench-lo-Dep Ledger (Bed Mobility) independent Yiz-gp-Sjpmps Ledger (Bed Mobility) independent Transfer Assessment/Treatment Ledger (Sit-Stand Transfers) supervision required Ledger (Stand-Sit Transfers) supervision required Gait Assessment/Treatment Ledger (Gait) supervision required Distance in Feet (Gait) ~200 Comment (Gait) overall steady ADL Assessment/Intervention Additional Documentation Lower Body Dressing Assessment/Training (Group) Lower Body Dressing Assessment/Training Position (LB Dressing) sitting;standing Ledger Level (LB Dressing) independent Plan of Care Review Plan Of Care Reviewed With patient Clinical Impression Therapy Frequency evaluation only Anticipated Equipment Needs at Discharge (none) Anticipated Discharge Disposition home * Plan of Care - Gricelda Fleming, PT - 08/10/2018 1:39 PM EDT Physical Therapy Evaluation Pertinent History of Current Problem: Roland Vega is a 68 y.o. right handed male with past medical history significant for hypertension, hyperlipidemia, history of CIDP, history of an STEMI (2016 status post drug-eluting stents x3-on Plavix, peripheral neuropathy, asthma, prostate cancer (status post radical prostatectomy in 2004) who presents with TIA-like symptoms. Precautions/Restrictions: fall Assessment: Pt seen today for PT evaluation in ED today. Patient tolerated session well and was able to stand and ambulate under supervision (about 200 ft) without difficulties with a steady gait. Hehas no current complaints. He reports that at times he experiences some word finding difficulties or feels that his cognition is slightly off, but not currently. At this point no further inpatient PT needs were identified; will monitor patient while in hospital, otherwise cleared to d/c from a PT standpoint. Staff Mobility Recommendations: Supervision Discharge Recommendation: Home 08/10/18 1310 Rehab Evaluation Document Type evaluation Total Evaluation Minutes, Physical Therapy 23 Patient Effort excellent Symptoms Noted During/After Treatment none General Information Patient Profile Review yes Patient/Family/Caregiver Comments/Observations Right now I feel fine General Observations of Patient in no acute distress, pleasant, cooperative Pertinent History of Current Problem Roland Vega is a 68 y.o. right handed male with past medical history significant for hypertension, hyperlipidemia, history of CIDP, history of an STEMI (2010 and 2017 status post drug-eluting stents x3-on Plavix, peripheral neuropathy, asthma, prostate cancer (status post radical prostatectomy in 2004) who presents with TIA-like symptoms. Precautions/Restrictions fall Treatment Number PT 1 Living Environment Patient population Adult Living Environment Living Environment Comment Pt lives with , currently at a motel they are rennovating. They are staying on the first floor. 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 Hand right Vital Signs Heart Rate 61 SpO2 95 % O2 Device RA Cognitive Assessment/Intervention Additional Documentation (a&o x 3, follows all commands) Pain Scale/Rating Pain Assessment Scale Numbers (Numeric Rating Pain Scale) Pain Level 0 ROM (Range of Motion) Additional Documentation (BLE WFL) MMT (Manual Muscle Testing) Additional Documentation (BLE WFL) Mobility Assessment/Training Additional Documentation Bed Mobility Assessment/Treatment (Group);Gait Assessment/Treatment (Group);Transfer Assessment/Treatment (Group) Bed Mobility Assessment/Treatment Upocfj-rz-Mpy Ledger (Bed Mobility) independent Cul-lu-Emjucs Ledger (Bed Mobility) independent Transfer Assessment/Treatment Ledger (Sit-Stand Transfers) supervision required Ledger (Stand-Sit Transfers) supervision required Gait Assessment/Treatment Ledger (Gait) supervision required Distance in Feet (Gait) 200 ft Comment (Gait) steady Motor Skills/Interventions Additional Documentation Balance Skills Training (Group) Balance Skills Training Sitting Balance: Static good balance Sitting Balance: Dynamic good balance [id number] Balance good balance Standing Balance: Static good balance Standing Balance: Dynamic fair balance Coping Observed Emotional State accepting Plan of Care Review Plan Of Care Reviewed With patient Clinical Impression Therapy Frequency evaluation only Pager: [phone] Gricelda Fleming DPT, NCS Physical Therapy Rehabilitation Department 2017 PT Evaluation Code Rationale: ?? Diagnosis & Pertinent Co-Morbidities, personal factors, and present illness affecting Plan of Care: Patient Active Problem List Diagnosis Code ??? ASCVD (arteriosclerotic cardiovascular disease) I25.10 ??? CIS - CIDP ??? Depression F32.9 ??? Hyperlipidemia E78.5 ??? Gastroesophageal reflux K21.9 ??? Peripheral neuropathy G62.9 ??? History of syncope Z87.898 ??? Asthma J45.909 ??? Rheumatoid arthritis(714.0) M06.9 ??? Malignant neoplasm of prostate C61 ??? Headache(784.0) R51 ??? Chronic back pain M54.9, G89.29 ??? S/P angioplasty with stent Z95.9 ??? Acute ischemic left MCA stroke I63.512 Additional personal factors or co-morbidities that impact plan: ?? Total # of Factors: 0 1-2 3+ x ?? Examination of body system impairments, functional limitations and behaviors, and/or participation restrictions. Addressing 1-2 elements x Addressing 3 + elements Addressing 4 + elements ?? Clinical presentation: See assessment above. Stable/Uncomplicated Evolving/Fluctuating Symptoms Unstable/Unpredictable x ?? Clinical decision making of low complexity based on pt's functional performance as outlined in this evaluation. G-Code: Mobility Status Modifier CURRENT CI - At least 1 percent but less than 20 percent impaired, limited or restricted PROJECTED CI - At least 1 percent but less than 20 percent impaired, limited or restricted DISCHARGE CI - At least 1 percent but less than 20 percent impaired, limited or restricted G Code Rationale: This G-Code and these disability modifiers were selected as the primary therapy goal based upon the patient's evaluation including the following functional test(s) FOMs. Current ability measures, co-morbidities and clinical judgement were also used to select the disability modifier. * Consult Note - Ambar Baker - 08/10/2018 11:38 AM EDT CARDIOLOGY PROGRESS NOTE Patient ID: Roland Vega is a 68 y.o. male with past medical history significant for CAD (s/p NSTEMI 2010, s/p JANET pOM1, ostial RPDA, mid D1 04/2017), hypertension, hyperlipidemia, paroxysmal atrial fibrillation (not on anticoagulation), peripheral neuropathy, asthma, prostate cancer (s/p radical prostatectomy in 2004) who presents with TIA-like symptoms. CT head showed acute Left MCA infarct. Per Neurology, most likely 2/2 cardioembolism. Admitted for stroke workup including MRI brain and echo. TTE with preserved EF at 65% and no WMAs. Troponin here negative x 1. ECG with NSR, non-specific IVCD, no significant changes noted. Patient was seen at [facility] on 08/03 for several days of exertional angina. There he ruled out for ACS with negative troponin and ECG not remarkable for acute changes. Recommendation was made for cardiac catheterization, which was scheduled for tomorrow, 08/11/[address] Puentes. I contacted patient's primary Fab[employer] Lay Out Worker, Dr. Shane in [place], [place], who agreed with the plan topostpone the catheterization for the next 2-3 weeks, given the patient's recent TIA vs CVA. Dr. Puentes additionally in agreement with this plan. Will meet with patient again tomorrow, as he is admitted to Neurology, and re-evaluate his outpatient medication regimen prior to discharge. Ambar Baker MD Cardiovascular Disease Fellow, PGY-4 [facility] # [id number] * Plan of Care - Sharron Galvez RN - 08/10/2018 5:30 AM EDT Problem: Patient Care Overview Goal: Plan of Care Review Outcome: Ongoing (Interventions Implemented as Appropriate) 08/10/18 0504 Coping/Psychosocial Plan Of Care Reviewed With patient Plan of Care Review Progress no change OUTCOME EVALUATION NOTE: OUTCOME SUMMARY: RN assumed care of pat around 0215. Pt noted to have unequal pupil, notified. Pt stated he has decreased vision baseline in L eye. Pt occasioanll having difficulty with word searching, couldn't think of word stroke. Pt stated he had fallen X1 last year and sustained broken ribs and a brain bleed. When asked fi the MDs were made aware of this pt stated I'm not sure. Pt resting in bed, pt voided however specimen was emptied before sample could be collected. PLAN MOVING FORWARD: Q4 neuros, admit to floor, MRI INDIVIDUALIZED FALL PREVENTION INTERVENTIONS: Patient-specific fall risk factors per assessment: [current deficits]: MCA, hospital environment, Assistance [level of assistance required for transfers and ambulation]: Stand by Supervision [direct monitoring required during toileting and ADLs]: Eyes on, Surveillance [continuous indirect monitoring]: Masimo, purposeful rounding,bedside NKE, Patient-specific fall prevention interventions for sensory deficits provided, if applicable: CPG GOAL OUTCOME EVALUATION: documented in this encounter Plan of Treatment Upcoming Encounters Date Type Department Care Team (Late st Contact Info) Description 08/09/2024 10:30 AM EDT Hospital Encounter [place] [address] Navi Montero MD [facility] [place] [address] 08/09/2024 10:30 AM EDT - 08/09/2024 11:15 AM EDT [place] [address] Navi Montero MD [facility] [place] [address] COLONOSCOPY,SCREENI NG (WRVU 3.26) Scheduled Procedures Name Priority Associated Diagnoses Date/Ti me COLONOSCOPY,SCREENING (WRVU 3.26) polyps 08/09/2024 10:30 AM EDT documented as of this encounter Procedures Procedure Name Priority Date/Time Associated Diagnosis Comments BRUSHER WARP SCAN 08/12/2018 12:00 AM EDT PROTHROMBIN TIME Routine 08/11/2018 6:20 AM EDT MRI BRAIN WO CONTRAST STAT 08/10/2018 5:07 PM EDT APTT Routine 08/10/2018 10:45 AM EDT PROTHROMBIN TIME Routine 08/10/2018 10:4 5 AM EDT ECHO COMPLETE W CONTRAST Routine 08/10/2018 9:48 AM EDT TIA (transient ischemic attack) BMP W/FASTING GLUCOSE Routine 08/10/2018 3:30 AM EDT HEMOGRAM Routine 08/10/2018 3:30 AM EDT DIFFERENTIAL, AUTOMATED Routine 08/10/2018 3:30 AM EDT CBC (WITH DIFF) Routine 08/10/2018 3:30 AM EDT TRIGLYCERIDE Routine 08/10/2018 3:30 AM EDT PHOSPHORUS Routine 08/10/2018 3:30 AM EDT MAGNESIUM Routine 08/10/2018 3:30 AM EDT HEMOGLOBIN A1C Routine 08/10/2018 3:30 AM EDT HEPATIC FUNCTION PANEL Routine 08/10/2018 3:[address] CAROTIDS AND [place] OF GREGORIO W CONTRAST STAT 08/09/2018 10:[address] HEAD WO CONTRAST (GENERIC) STAT 08/09/2018 10:00 PM EDT HEMOGRAM STAT 08/09/2018 9:35 PM EDT DIFFERENTIAL, AUTOMATED STAT 08/09/2018 9:35 PM EDT GOLD TUBE HOLD STAT 08/09/2018 9:35 PM EDT BLUE TUBE HOLD STAT 08/09/2018 9:35 PM EDT CBC (WITH DIFF) STAT 08/09/2018 9:35 PM EDT TROPONIN STAT 08/09/2018 9:35 PM EDT LDL CHOLESTEROL, DIRECT STAT 08/09/2018 9:35 PM EDT HDL/CHOL PROFILE STAT 08/09/2018 9:35 PM EDT BASIC METABOLIC PANEL STAT 08/09/2018 9:35 PM EDT EKG 12-LEAD STAT 08/09/2018 9:30 PM EDT documented in this encounter Results * SCAN DOC: BRUSHER WARP (08/12/2018 12:00 AM EDT) Anatomical Region Laterality Modality Other Narrative 08/12/2018 12:00 AM EDT Ordered by an unspecified provider. Scanning Provider MEDIA MGR SCAN EXT O RDR/RSLT * Ziopatch (08/11/2018 2:42 PM EDT) Anatomical Region Laterality Modality Other Narrative 09/06/2018 11:15 PM EST [facility] ? Zio Patch? Ambulatory Cardiac Event Monitor [...] Niki Zamorano MD CARDIAC SERVICES O RDERABLES * Prothrombin Time (08/11/2018 6:20 AM EDT) Prothrombin Time 12.3 9.4 - 12.[address] [facility] International Normalization Ratio 1.1 [facility] Comment: An INR <2.0 indicates adequate procoagulant activity for hemostasis in most patients without underlying bleeding disorders, though the INR may not adequately reflect hemostatic capacity in patients with liver disease and synthetic impairment. The recommended target INR range for therapeutic anticoagulation is 2.0 ? 3.0 for most applications, though lower and higher ranges may be appropriate depending on clinical circumstances. Blood specimen (specimen) Venous Draw / Unknown 08/11/2018 6:20 AM EDT 08/11/2018 6:31 AM EDT Narrative Resulting Agency Comment Spec In Lab Bennett Batista MD HEMATOLOGY JOSE JARAMILLO [facility] [place] [address] * MRI Brain wo Contrast (08/10/2018 5:07 PM EDT) Anatomical Region Laterality Modality Head Magnetic Resonan ce Impressions 08/10/2018 5:34 PM EDT Small, cortically-based left MCA territory infarct involving the left frontal lobe. Preliminary report signed by: Paul Moore at 08/10/2018 5:28 PM I have personally reviewed the image(s) and the residents interpretation and agree with the findings, Paul Denise at 08/10/2018 5:34 PM Narrative 08/10/2018 5:34 PM EDT EXAMINATION: MRI BRAIN WO CONTRAST CLINICAL HISTORY: Patient with left MCA infarct - looking to fully assess size of infarct TECHNIQUE: MRI brain without contrast. COMPARISON: CT head from 08/09/2018, 11/21/2005. FINDINGS: Area of restricted diffusion within the inferior left frontal lobe measuring approximately 2.4 x 2.0 cm, consistent with acute infarction. There is associated T2 hyperintensity in this region of the infarct. Mass effect is local with sulcal effacement. No additional areas of restricted diffusion or abnormal parenchymal signal. No intracranial hemorrhage. No mass, mass effect or midline shift. No extra-axial collection. The ventricles are normal in size and shape. The basal cisterns are patent. The paranasal sinuses and mastoid air cells are clear. No orbital or calvarial abnormality. Procedure Note Paul Denise MD - 08/10/2018 EXAMINATION: MRI BRAIN WO CONTRAST CLINICAL HISTORY: Patient with left MCA infarct - looking to fully assesssize of infarct TECHNIQUE: MRI brain without contrast. COMPARISON: CT head from 08/09/2018, 11/21/2005. FINDINGS: Area of restricted diffusion within the inferior left frontal lobemeasuring approximately 2.4 x 2.0 cm, consistent with acute infarction. There is associated T2 hyperintensity in this region of the infarct. Mass effect islocal with sulcal effacement. No additional areas of restricted diffusion orabnormal parenchymal signal. No intracranial hemorrhage. No mass, mass effect ormidline shift. No extra-axial collection. The ventricles are normal in size andshape. The basal cisterns are patent. The paranasal sinuses and mastoid air cellsare clear. No orbital or calvarial abnormality. IMPRESSION Small, cortically-based left MCA territory infarct involving the leftfrontal lobe. Preliminary report signed by: Paul Moore at 08/10/2018 5:28 PM I have personally reviewed the image(s) and the residents interpretationand agree with the findings, Paul Denise at 08/10/2018 5:[address] [facility] MRI ORDERABLES * APTT (08/10/2018 10:45 AM EDT) [facility] Signature Partial Thromboplastin Time 28 25 - [address] [facility] Comment: The PTT is NOT appropriate for heparin monitoring. Use the Anti-Xa level for heparin monitoring (HEP UFH) or LMWH monitoring (HEP LMW). A PTT less than 37 seconds generally indicates adequate hemostasis. Blood specimen (specimen) 08/10/2018 10:45 AM EDT 08/10/2018 11:00 AM EDT Narrative Resulting Agency Comment Spec In Lab Sulaiman Lopez MD HEMATOLOGY ORDERABLE S Performing Organization Address [facility] de Phone Number [facility] [place] [address] * (ABNORMAL) Prothrombin Time (08/10/2018 10:45 AM EDT) Prothrombin Time 12.7(H) 9.4 - 12.[address] [facility] International Normalization Ratio 1.[address] [facility] Comment: An INR <2.0 indicates adequate procoagulant activity for hemostasis in most patients without underlying bleeding disorders, though the INR may not adequately reflect hemostatic capacity in patients with liver disease and synthetic impairment. The recommended target INR range for therapeutic anticoagulation is 2.0 ? 3.0 for most applications, though lower and higher ranges may be appropriate depending on clinical circumstances. Blood specimen (specimen) 08/10/2018 10:45 AM EDT 08/10/2018 11:00 AM EDT Narrative Resulting Agency Comment Spec In Lab Sulaiman Lopez MD HEMATOLOGY ORDERABLE S Performing Organization Address [facility] Co de Phone Number [facility] [place] [address] * ECHO COMPLETE W CONTRAST (08/10/2018 9:48 AM EDT) EF 65 HEART[facility] SYSTEM Anatomical Region Laterality Modality Other 08/10/2018 Narrative 08/10/2018 10:23 AM EDT Procedure: ?Transthoracic Echocardiogram Patient: ?RADHA CASTRO E ? (Age): 1950(68y) Med Rec#: ? [id number] ?Sex: ?M ? Site Loc: ? [facility] ?Ht / Wt: ??180(cm)/127(kg) Pt. Loc: ?ED ?BSA: ?2.43 Study Date: ?? 08/10/2018 ?Pt. Type: Inpatient Tape: ? Referring: Sulaiman Lopez MD Reading: Ramon Valera ([id number]) Scrap Separator: Handy Lal Diagnosis: *Transient cerebral ischemic attack, unspecified (G45.9) Rhythm: ? Bradycardia BP: ? 114/67 SUMMARY: 1. Moderate concentric left ventricular hypertrophy is observed. ??There is normal global left ventricular systolic function. ??Ejection fraction is estimated to be 65%. ??There are no left ventricular segmental wall motion abnormalities. 2. The right ventricle is mildly dilated. ??Right ventricular global systolic function is normal. 3. There is no hemodynamically significant valve disease. 4. There is mild dilatation of the aortic root. ??There is moderate dilatation of the ascending aorta. 5. When comapred with study dated 2010, the aorta is not dilated. Otherwise, no significant change was found. 6. See remainder of report for additional findings. 7. See remainder of report for additional findings. Findings ? : Study Quality: ? Technically limited Left Ventricle: ? The left ventricular chamber size is normal. ?Moderate concentric left ventricular hypertrophy is observed. ?There is normal global left ventricular systolic function. ??Ejection fraction is estimated to be 65%. ?There are no left ventricular segmental wall motion abnormalities. ?The left ventricular diastolic filling pattern is consistent with impaired LV relaxation. ?Doppler assessment is consistent with normal left sided filling pressure. Left Atrium: ? The left atrium is normal in size.29 ml/m2 Right Ventricle: ? The right ventricle is mildly dilated. ?Right ventricular global systolic function is normal. Right Atrium: ? The right atrium appears normal. Aortic Valve: ? The aortic valve is tricuspid. ?The aortic valve leaflets are mildly thickened. ?There is no evidence of aortic valve stenosis. ?There is no evidence of aortic regurgitation. Mitral Valve: ? The mitral valve leaflets are mildly thickened. ?There is mitral annular calcification. ?There is trace mitral regurgitation present. Tricuspid Valve: ? The tricuspid valve appears normal in structure and function. ?There is trace tricuspid regurgitation present. Pulmonic Valve: ? The pulmonic valve appears normal in structure and function. ?There is trace pulmonic regurgitation present. Pericardium: ? The pericardium appears normal and there is no evidence of a pericardial effusion. Aorta: ? There is mild dilatation of the aortic root. ?There is moderate dilatation of the ascending aorta. Pulmonary Artery: ? The main pulmonary artery appears normal. Venous: ? The inferior vena cava appears normal in size. ?There is a greater than 50% respiratory change in the inferior vena cava dimension. Misc: ? See remainder of report for additional findings. ?Two-dimensional echo, spectral Doppler and color Doppler performed. ?Optison contrast (one 3 ml vial) was used to enhance endocardial definition. Excess contrast was discarded. Chambers 2D ?Value ?Units (Range) ? IVSd (2D) ? 1.9 ?cm ? LVPWd (2D) ?1.4 ?cm ? IVS:LVPW ratio (2D) 1.4 ?ratio ? RWT (2D) ?0.7 ?ratio ? RWT PW (2D) ? 0.6 ?ratio ? LVIDd (2D) ?4.5 ?cm ? LVIDs (2D) ?2.3 ?cm ? LVIDd (2D) index ?1.9 ?cm/m2 ? LVIDs (2D) index ?1 ?cm/m2 ? LV FS (2D) ?48 ? % ? EF Teichholz (2D) ?? 80 ? % ? Ao root diameter (2D3.8 ?cm (2.1 - 3.6) ? Ascending Ao ?4.1 ?cm (2 - 3.5) ? Volumes/Mass ?Value ?Units (Range) ? LA ESV BP (A/L) inde28.6 ? ml/m2 ? LV mass (2D) ?331.5 ?g ? LV mass (2D) index ??136.4 ?g/m2 ? Diastolic/Systolic Function ?Value ?Units (Range) ? MV E-wave Vmax ?0.8 ?m/sec ? MV deceleration hpyh728.8 ?msec ? MV A-wave Vmax ?1.1 ?m/sec ? MV E:A ratio ?0.7 ?ratio ? LV septal e' Vmax ?? 0 ?m/sec ? LV lateral e' Vmax ??0.1 ?m/sec ? LV average e' Vmax ??0.1 ?m/sec ? LV E:e' septal ratio19.3 ? ratio ? LV E:e' lateral rati11 ? ratio ? LV average E:e' rati12.9 ? ratio ? Tricuspid Valve ?Value ?Units (Range) ? TR Vmax ? 2.8 ?m/sec ? TR peak gradient ?31.6 ? mmHg ? Wall Motion: Segment Name ?Rest ? Base-Anteroseptal ?? Normal ? Base-Anterior ? Normal ? Base-Anterolateral ??Normal ? Base-Posterolateral Normal ? Base-Inferior ? Normal ? Base-Inferoseptal ?? Normal ? Mid-Anteroseptal ?Normal ? Mid-Anterior ?Normal ? Mid-Anterolateral ?? Normal ? Mid-Posterolateral ??Normal ? Mid-Inferior ?Normal ? Mid-Inferoseptal ?Normal ? [place]-Septal ? Normal ? [place]-Anterior ? Normal ? [place]-Lateral ?Normal ? [place]-Inferior ? Normal ? [place]-Tip ?Normal ? This report has been electronically signed by: Ramon Valera M.D. ? 08/10/2018 10:23:53 Images reviewed and interpretation verified [facility] Cardiac Ultrasound Laboratory Procedure Note Ramon Valera MD - 08/10/2018 Procedure: Transthoracic Echocardiogram Patient: RADHA Antonio DOB(Age): 1950(68y) Med Rec#: [id number] Sex: M Site Loc: [facility] Ht / Wt: 180(cm)/127(kg) Pt. Loc: ED BSA: 2.43 Study Date: 08/10/2018 Pt. Type: Inpatient Tape: Referring: Sulaiman Lopez MD Reading: Ramon Valera ([id number]) Scrap Separator: Handy Lal Diagnosis: *Transient cerebral ischemic attack, unspecified (G45.9) Rhythm: Bradycardia BP: 114/67 SUMMARY: 1. Moderate concentric left ventricular hypertrophy is [...] See remainder of report for additional findings. Findings : Study Quality: Technically limited Left Ventricle: The left ventricular chamber size is normal. Moderate concentric left ventricular hypertrophy is observed. There is normal global left ventricular systolic function. Ejection fraction is estimated to be 65%. There are no left ventricular segmental wall motion abnormalities. The left ventricular diastolic filling pattern is consistent with impaired LV relaxation. Doppler assessment is consistent with normal left sided filling pressure. Left Atrium: The left atrium is normal in size.29 ml/m2 Right Ventricle: The right ventricle is mildly dilated. Right ventricular global systolic function is normal. Right Atrium: The right atrium appears normal. Aortic Valve: The aortic valve is tricuspid. The aortic valve leaflets are mildly thickened. There is no evidence of aortic valve stenosis. There is no evidence of aortic regurgitation. Mitral Valve: The mitral valve leaflets are mildly thickened. There is mitral annular calcification. There is trace mitral regurgitation present. Tricuspid Valve: The tricuspid valve appears normal in structure and function. There is trace tricuspid regurgitation present. Pulmonic Valve: The pulmonic valve appears normal in structure and function. There is trace pulmonic regurgitation present. Pericardium: The pericardium appears normal and there is no evidence of a pericardial effusion. Aorta: There is mild dilatation of the aortic root. There is moderate dilatation of the ascending aorta. Pulmonary Artery: The main pulmonary artery appears normal. Venous: The inferior vena cava appears normal in size. There is a greater than 50% respiratory change in the inferior vena cava dimension. Misc: See remainder of report for additional findings. Two-dimensional echo, spectral Doppler and color Doppler performed. Optison contrast (one 3 ml vial) was used to enhance endocardial definition. Excess contrast was discarded. Chambers 2D Value Units (Range) IVSd (2D) 1.9 cm LVPWd (2D) 1.4 cm IVS:LVPW ratio (2D) 1.4 ratio RWT (2D) 0.7 ratio RWT PW (2D) 0.6 ratio LVIDd (2D) 4.5 cm LVIDs (2D) 2.3 cm LVIDd (2D) index 1.9 cm/m2 LVIDs (2D) index 1 cm/m2 LV FS (2D) 48 % EF Teichholz (2D) 80 % Ao root diameter (2D3.8 cm (2.1 - 3.6) Ascending Ao 4.1 cm (2 - 3.5) Volumes/Mass Value Units (Range) LA ESV BP (A/L) inde28.6 ml/m2 LV mass (2D) 331.5 g LV mass (2D) index 136.4 g/m2 Diastolic/Systolic Function Value Units (Range) MV E-wave Vmax 0.8 m/sec MV deceleration yrgt355.8 msec MV A-wave Vmax 1.1 m/sec MV E:A ratio 0.7 ratio LV septal e' Vmax 0 m/sec LV lateral e' Vmax 0.1 m/sec LV average e' Vmax 0.1 m/sec LV E:e' septal ratio19.3 ratio LV E:e' lateral rati11 ratio LV average E:e' rati12.9 ratio Tricuspid Valve Value Units (Range) TR Vmax 2.8 m/sec TR peak gradient 31.6 mmHg Wall Motion: Segment Name Rest Base-Anteroseptal Normal Base-Anterior Normal Base-Anterolateral Normal Base-Posterolateral Normal Base-Inferior Normal Base-Inferoseptal Normal Mid-Anteroseptal Normal Mid-Anterior Normal Mid-Anterolateral Normal Mid-Posterolateral Normal Mid-Inferior Normal Mid-Inferoseptal Normal [place]-Septal Normal [place]-Anterior Normal [place]-Lateral Normal [place]-Inferior Normal [place]-Tip Normal This report has been electronically signed by: Ramon Valera M.D. 08/10/2018 10:23:53 Images reviewed and interpretation verified [facility] Cardiac Ultrasound Laboratory Sulaiman Lopez MD ECHO ORDERABLES * (ABNORMAL) BMP w/fasting Glucose (08/10/2018 3:30 AM EDT) Glucose Fasting 145(H) 65 - 99 mg/dL [facility] Comment: ?Fasting* Glucose Interpretive Criteria [...] of Diabetes Mellitus, Position Statement from the [place] [employer]. ??Diabetes Care, Volume 33, Supplement 1, Nov 2009 Blood Urea Nitrogen 16 10 - 20 mg/dL [facility] Creatinine 0.93 0.80 - 1.50 mg/dL [facility] Sodium 140 135 - 145 mmol/L [facility] Potassium 3.9 3.5 - 5.0 mmol/L [facility] Comment: Please note: ??Patients with WBC >100,000 may have falsely elevated Potassium levels. ??For accurate Potassium quantification in these patients send serum separator tube (gold top) for subsequent determinations. ??Contact the Clinical Chemistry Laboratory if there are any questions. Chloride 102 98 - 107 mmol/L [facility] Carbon Dioxide 26 22 - 31 mmol/L [facility] Anion Gap 12 5 - 15 mmol/L [facility] Calcium 9.1 8.5 - 10.5 mg/dL [facility] Est Glomerular Filtration Rate 85 >=60 mL/min/1. 73 m?? [facility] Comment: The eGFR was calculated using the CKD-EPI equation. As with all creatinine based estimates of kidney function, eGFR values calculated with the CKD-EPI equation are not accurate in patients with acute kidney failure, extremes of body mass or the acutely ill. [email or web address] eGFR 98 >=60 mL/min/1. 73 m?? [facility] Comment: The eGFR was calculated using the CKD-EPI equation. As with all creatinine based estimates of kidney function, eGFR values calculated with the CKD-EPI equation are not accurate in patients with acute kidney failure, extremes of body mass or the acutely ill. [email or web address] Blood specimen (specimen) 08/10/2018 3:30 AM EDT 08/10/2018 3:41 AM EDT Narrative Resulting Agency Comment Spec In Lab Bennett Batista MD CHEMISTRY ORDER BENNY Performing Organization Address City/[facility]/ZIP Co de Phone Number [facility] [place] [address] * Differential, Automated (08/10/2018 3:30 AM EDT) Neutrophil % 46.4 % [facility] Neutrophil Absolute 1.91 1.70 - 6.10 x10(3)/[facility] LABORATORY Lymph % 40.0 % [facility] Lymphocytes Abs 1.6 0.9 - 3.2 x10(3)/[facility] LABORATORY Monocyte % 10.7 % [facility] Monocyte Abs 0.4 0.3 - 0.9 x10(3)/[facility] LABORATORY Eos % 1.9 % [facility] Eosinophils Abs 0.1 0.0 - 0.4 x10(3)/[facility] LABORATORY Basophil % 0.5 % [facility] Baso Absolute 0.0 0.0 - 0.1 x10(3)/[facility] LABORATORY Immature Gran % 0.50 % [facility] Comment: Immature granulocytes(IG's)percentage and absolute count will include metamyelocytes, myelocytes, and promyelocytes. Blood smears from CBCs yielding IG's will be scanned manually for concordance. If this scan disagrees with the automated IG or if promyelocytes are noted, a manual differential will be performed. Immature Gran Absolute 0.02 0.00 - 0.04 x10(3)/[facility] LABORATORY Blood specimen (specimen) 08/10/2018 3:30 AM EDT 08/10/2018 3:41 AM EDT Narrative Resulting Agency Comment Spec In Lab Bennett Batista MD HEMATOLOGY ORDE RABLES [facility] [place] [address] * (ABNORMAL) Hemogram (08/10/2018 3:30 AM EDT) Pathologist [facility] White Blood Cell 4.1 4.0 - 9.5 x10(3)/ L [facility] Red Blood Cell 4.23(L) 4.58 - 5.54 x10(6)/mc L [facility] Hemoglobin 12.9(L) 13.7 - 16.5 gm/dL [facility] Hematocrit 39.3(L) 40.5 - 48.5 % [facility] Mean Cell Volume 92.9 82.9 - 93.[address] [facility] Mean Cell Hemoglobin 30.5 27.5 - 32.[address] [facility] Mean Cell Hemoglobin Concentration 32.8 32.0 - 35.7 gm/dL [facility] Platelet 148 145 - 357 x10(3)/[facility] LABORATORY RDW Standard Deviation 45.0 36.0 - 45.0 [facility] LABORATORY RDW coefficient of variation 13.3 11.4 - 13.8 % [facility] Mean Platelet Volume 9.6 7.6 - 12.9 [facility] LABORATORY NRBC% auto 0.0 % [facility] NRBC Absolute 0.000 0.000 - 0.000 x10(3)/[facility] LABORATORY Blood specimen (specimen) 08/10/2018 3:30 AM EDT 08/10/2018 3:41 AM EDT Narrative Resulting Agency Comment Spec In Lab Bennett Batista MD HEMATOLOGY JOSE JARAMILLO [facility] [place] [address] * Triglyceride (08/10/2018 3:30 AM EDT) [facility] Triglyceride 291 mg/dL [facility] Comment: Average Risk/Lower Risk: <150 mg/dL Borderline High Risk: 150-199 mg/dL High Risk: 200-499 mg/dL Very High Risk: >lp=081 mg/dL Blood specimen (specimen) 08/10/2018 3:30 AM EDT 08/10/2018 3:41 AM EDT Narrative Resulting Agency Comment Spec In Lab Sulaiman Lopez MD CHEMISTRY ORDERABLES [facility] [place] [address] * (ABNORMAL) Hemoglobin A1c (08/10/2018 3:30 AM EDT) Hemoglobin A1c 6.1(H) 4.3 - 5.6 % [facility] Comment: Reference Range: 4.3 - 5.6% 5.7 - 6.4% - Increased Risk of Developing Diabetes Mellitus >=6.5% - Consistent with diagnosis of Diabetes Mellitus In the absence of hyperglycemia (i.e. plasma glucose > 200 mg/dL) or classic symptoms of hyperglycemia a repeat measurement of HbA1c should be performed on a separate sample to confirm the diagnosis. Diagnosis and Classification of Diabetes Mellitus, Diabetes Care 2013; 36: Suppl. 1, S67-74 Estimated Average Glucose 128 mg/dL [facility] Comment: eAG equivalents for HbA1c percentages: HbA1c(%) ?eAG(mg/dL) 6.0 ?126 6.5 ?140 7.0 ?154 7.5 ?169 8.0 ?183 8.5 ?197 9.0 ?212 9.5 ?226 10.0 ? 240 Limitations: The eAG calculation has not been validated on women, individuals below 18 years old and above 70 years old, and individuals with hemoglobinopathies. Additional resources are available on the ADA website. Isaac HACKETT, Isaiah J, Trini R, et al. ??Translating the A1C assay into estimated average glucose values. ??Diabetes Care 2008:31(8):5962-2298. Blood specimen (specimen) 08/10/2018 3:30 AM EDT 08/10/2018 3:41 AM EDT Narrative Resulting Agency Comment Spec In Lab Sulaiman Lopez MD CHEMISTRY ORDERABLES Performing Organization Address [facility] Co de Phone Number [facility] [place] [address] * (ABNORMAL) Hepatic Function Panel (08/10/2018 3:30 AM EDT) Protein, Total 7.1 6.1 - 8.0 gm/dL [facility] Albumin 3.7 3.2 - 5.2 gm/dL [facility] Aspartate Aminotransferase 40(H) 0 - 39 unit/L [facility] Alanine Aminotransferase 71(H) 0 - 55 unit/L [facility] Alkaline Phosphatase 83 40 - 120 unit/L [facility] Bilirubin, Total 0.2 0.2 - 1.3 mg/dL [facility] Bilirubin, Direct 0.1 0.0 - 0.3 mg/dL [facility] Blood specimen (specimen) 08/10/2018 3:30 AM EDT 08/10/2018 3:41 AM EDT Narrative Resulting Agency Comment Spec In Lab Sulaiman Lopez MD CHEMISTRY ORDERABLES Performing Organization Address [facility] Co de Phone Number [facility] [place] [address] * Phosphorus (08/10/2018 3:30 AM EDT) Phosphorus 3.9 2.5 - 4.5 mg/dL [facility] Blood specimen (specimen) 08/10/2018 3:30 AM EDT 08/10/2018 3:41 AM EDT Narrative Resulting Agency Comment Spec In Lab Sulaiman Lopez MD CHEMISTRY ORDERABLES Performing Organization Address [facility]/ZIP Co de Phone Number [facility] [place] [address] * Magnesium (08/10/2018 3:30 AM EDT) Magnesium 0.81 0.69 - 1.07 mmol/L [facility] Blood specimen (specimen) 08/10/2018 3:30 AM EDT 08/10/2018 3:41 AM EDT Narrative Resulting Agency Comment Spec In Lab Sulaiman Lopez MD CHEMISTRY ORDERABLES Performing Organization Address [facility] Co de Phone Number [facility] [place] [address] * (ABNORMAL) CT Angiogram Carotids & [place] of [place] (08/09/2018 10:00 PM EDT) Anatomical Region Laterality Modality Neck, Head Computed Tomogra phy Impressions 08/10/2018 12:45 AM EDT 1. ??Acute left MCA division infarct. 2. ??Hyperdense filling defect in the left M2 division as above is concerning for embolic calcium in the setting of an acute infarct. Focal atherosclerosis is also a consideration, but less likely. 3. ??No acute intracranial hemorrhage. 4. ??Unexpected findin mm nodule seen in the superior segment of the left lower lobe. If the patient is high-risk for malignancy, consider follow-up CT in one year. Otherwise, no follow-up is needed as per Fleischner Society guidelines 2017. Dr. Corbett was called with results at 08/09/2018 10:17 PM Narrative 08/10/2018 12:45 AM EDT EXAMINATION: CT ANGIOGRAM CAROTIDS AND [place] OF [place], CT HEAD WO CONTRAST (GENERIC) CLINICAL HISTORY: 68 yo M with serial TIAs TECHNIQUE: Noncontrast CT head, CTA of the carotids and [place] of [place] was obtained using 65 mL of Omnipaque 350. MIPs were reviewed. Three-D reformatted images were obtained on a separate workstation. COMPARISON: CT head 11/21/2005 FINDINGS: Noncontrast CT head: There is hypodensity seen in the deep white matter of the left frontal lobe with local castro-white differentiation abnormality concerning for an acute infarction. There is relatively asymmetric hypodense attenuation in the left insula. There is a high density calcific structure in the distal MCA distribution as described below. No acute intracranial hemorrhage. No sulcal effacement. There is parenchymal cortical atrophy with commensurate ventriculomegaly. The mastoid air cells are clear. No calvarial lesions seen. Mucosal retention cyst is seen in the left sphenoid sinus. There is also mucosal thickening seen in the ethmoid air cells and right maxillary sinus. The orbits are normal. A 4 mm nodule is seen in the superior segment of the left lower lobe on series 6, image 608. The thyroid is normal. CTA carotids and [place] of [place]: The visualized thoracic aorta is normal in caliber. There is a common origin of the right brachiocephalic and left common carotid artery. No stenosis at the origin of any of the aortic branch vasculature. The visualized subclavian and axillary arteries are normal. The common carotid arteries are widely patent. There is calcified atherosclerotic plaque seen in the carotid bulb on the right. No significant stenosis as measurable by NASCET criteria at the origin of the ICA. ECA origins are bilaterally normal. Calcified plaque is seen in the carotid siphon without significant stenosis. There is a high density filling defect seen in the left M2 distribution as identified on series 6, image 93. This is new since the prior CT in 2005. The right MCA distribution is normal without filling defects seen. The bilateral ACAs are also normal without filling defects seen. Patient has a dominant left vertebral artery. No significant stenosis seen at the origins of either vertebral artery. The vertebral arteries maintain a consistent caliber throughout their course in the neck. The basilar artery is widely patent. The posterior cerebral arteries are widely patent. The PCOMs are not visualized. Resulting Agency Comment Unexpected Finding Brenna Corbett MD [facility] CT ORDERABLES * (ABNORMAL) CT Head wo Contrast (Generic) (08/09/2018 10:00 PM EDT) Anatomical Region Laterality Modality Head Computed Tomogra phy Impressions 08/10/2018 12:45 AM EDT 1. ??Acute left MCA division infarct. 2. ??Hyperdense filling defect in the left M2 division as above is concerning for embolic calcium in the setting of an acute infarct. Focal atherosclerosis is also a consideration, but less likely. 3. ??No acute intracranial hemorrhage. 4. ??Unexpected findin mm nodule seen in the superior segment of the left lower lobe. If the patient is high-risk for malignancy, consider follow-up CT in one year. Otherwise, no follow-up is needed as per Fleischner Society guidelines 2017. Dr. Corbett was called with results at 08/09/2018 10:17 PM Narrative 08/10/2018 12:45 AM EDT EXAMINATION: CT ANGIOGRAM CAROTIDS AND [place] OF [place], CT HEAD WO CONTRAST (GENERIC) CLINICAL HISTORY: 68 yo M with serial TIAs TECHNIQUE: Noncontrast CT head, CTA of the carotids and [place] of [place] was obtained using 65 mL of Omnipaque 350. MIPs were reviewed. Three-D reformatted images were obtained on a separate workstation. COMPARISON: CT head 11/21/2005 FINDINGS: Noncontrast CT head: There is hypodensity seen in the deep white matter of the left frontal lobe with local castro-white differentiation abnormality concerning for an acute infarction. There is relatively asymmetric hypodense attenuation in the left insula. There is a high density calcific structure in the distal MCA distribution as described below. No acute intracranial hemorrhage. No sulcal effacement. There is parenchymal cortical atrophy with commensurate ventriculomegaly. The mastoid air cells are clear. No calvarial lesions seen. Mucosal retention cyst is seen in the left sphenoid sinus. There is also mucosal thickening seen in the ethmoid air cells and right maxillary sinus. The orbits are normal. A 4 mm nodule is seen in the superior segment of the left lower lobe on series 6, image 608. The thyroid is normal. CTA carotids and [place] of [place]: The visualized thoracic aorta is normal in caliber. There is a common origin of the right brachiocephalic and left common carotid artery. No stenosis at the origin of any of the aortic branch vasculature. The visualized subclavian and axillary arteries are normal. The common carotid arteries are widely patent. There is calcified atherosclerotic plaque seen in the carotid bulb on the right. No significant stenosis as measurable by NASCET criteria at the origin of the ICA. ECA origins are bilaterally normal. Calcified plaque is seen in the carotid siphon without significant stenosis. There is a high density filling defect seen in the left M2 distribution as identified on series 6, image 93. This is new since the prior CT in 2005. The right MCA distribution is normal without filling defects seen. The bilateral ACAs are also normal without filling defects seen. Patient has a dominant left vertebral artery. No significant stenosis seen at the origins of either vertebral artery. The vertebral arteries maintain a consistent caliber throughout their course in the neck. The basilar artery is widely patent. The posterior cerebral arteries are widely patent. The PCOMs are not visualized. Brenna Corbett MD IMG CT ORDERABLES * Gold Tube HOLD (08/09/2018 9:35 PM EDT) Gold Hold Sample in lab. [facility] Blood specimen (specimen) Venous Draw / Unknown 08/09/2018 9:35 PM EDT 08/09/2018 9:49 PM EDT Octavio Kerr MD CHEMISTRY ORDERABLES [facility] [place] [address] * Blue Tube HOLD (08/09/2018 9:35 PM EDT) Blue Hold Sample in lab. [facility] Blood specimen (specimen) Venous Draw / Unknown 08/09/2018 9:35 PM EDT 08/09/2018 9:49 PM EDT Octavio Kerr MD HEMATOLOGY ORDERABLE S Performing Organization Address City/[facility]/ZIP Co de Phone Number [facility] [place] [address] * Differential, Automated (08/09/2018 9:35 PM EDT) Neutrophil % 51.6 % [facility] Neutrophil Absolute 2.90 1.70 - 6.10 x10(3)/[facility] LABORATORY Lymph % 37.0 % [facility] Lymphocytes Abs 2.1 0.9 - 3.2 x10(3)/[facility] LABORATORY Monocyte % 8.9 % [facility] Monocyte Abs 0.5 0.3 - 0.9 x10(3)/[facility] LABORATORY Eos % 1.6 % [facility] Eosinophils Abs 0.1 0.0 - 0.4 x10(3)/[facility] LABORATORY Basophil % 0.5 % [facility] Baso Absolute 0.0 0.0 - 0.1 x10(3)/[facility] LABORATORY Immature Gran % 0.40 % [facility] Comment: Immature granulocytes(IG's)percentage and absolute count will include metamyelocytes, myelocytes, and promyelocytes. Blood smears from CBCs yielding IG's will be scanned manually for concordance. If this scan disagrees with the automated IG or if promyelocytes are noted, a manual differential will be performed. Immature Gran Absolute 0.02 0.00 - 0.04 x10(3)/[facility] LABORATORY Blood specimen (specimen) 08/09/2018 9:35 PM EDT 08/09/2018 9:48 PM EDT Narrative Resulting Agency Comment Spec In Lab Octavio Kerr MD HEMATOLOGY ORDERABLE S Performing Organization Address City/[facility]/ZIP Co de Phone Number [facility] [place] [address] * (ABNORMAL) Hemogram (08/09/2018 9:35 PM EDT) White Blood Cell 5.6 4.0 - 9.5 x10(3)/[facility] LABORATORY Red Blood Cell 4.35(L) 4.58 - 5.54 x10(6)/mc L [facility] Hemoglobin 13.3(L) 13.7 - 16.5 gm/dL [facility] Hematocrit 40.4(L) 40.5 - 48.5 % [facility] Mean Cell Volume 92.9 82.9 - 93.[address] [facility] Mean Cell Hemoglobin 30.6 27.5 - 32.[address] [facility] Mean Cell Hemoglobin Concentration 32.9 32.0 - 35.7 gm/dL [facility] Platelet 161 145 - 357 x10(3)/[facility] LABORATORY RDW Standard Deviation 44.2 36.0 - 45.0 [facility] LABORATORY RDW coefficient of variation 13.1 11.4 - 13.8 % [facility] Mean Platelet Volume 9.6 7.6 - 12.9 [facility] LABORATORY NRBC% auto 0.0 % [facility] NRBC Absolute 0.000 0.000 - 0.000 x10(3)/[facility] LABORATORY Blood specimen (specimen) 08/09/2018 9:35 PM EDT 08/09/2018 9:48 PM EDT Narrative Resulting Agency Comment Spec In Lab Octavio Kerr MD HEMATOLOGY ORDERABLE S [facility] [place] [address] * LDL Cholesterol, Direct (08/09/2018 9:35 PM EDT) LDL Cholesterol, Direct 90 mg/dL [facility] Comment: Lowest Risk: <100 mg/dL Lower Risk: 100-129 mg/dL Borderline High Risk: 130-159 mg/dL High Risk: 160-189 mg/dL Very High Risk: >he=966 mg/dL Blood specimen (specimen) 08/09/2018 9:35 PM EDT 08/09/2018 9:48 PM EDT Narrative Resulting Agency Comment Spec In Lab Brenna Corbett MD CHEMISTRY ORDERABLES [facility] [place] [address] * HDL/Cholesterol Profile (08/09/2018 9:35 PM EDT) Cholesterol, Total 161 mg/dL [facility] Comment: Lower Risk: <200 mg/dL Average Risk: 200-239 mg/dL Higher Risk: >pn=805 mg/dL HDL Cholesterol 33 mg/dL [facility] Comment: Males: ?? Higher Risk: <40 mg/dL Females: ?? HIgher Risk: <50 mg/dL Cholesterol/HDL Ratio 4.[address] [facility] Chol/HDL Interpretation See Note [facility] Comment: Lipid management should be guided by a patient? s ASCVD risk, goals and preferences. ACC/AHA Guidelines recommend high intensity statin if clinical ASCVD or LDL greater than or equal to 190 mg/dL. http://[employer].com/TOR-ATW-Dottfxtyb Measure LDL if Total Cholesterol minus HDL Cholesterol is greater than 220 mg/dL. Adults aged 40-75 with LDL 70-189 mg/dL should have their 10 year ASCVD risk estimated with the ACC/AHA ASCVD risk stave cutting supervisor http://tools.acc.org/UIKTY-Guiz-Ndqbfjelp/ Statin should be discussed if risk greater than or equal to 7.5% in non-diabetics. With diabetes, moderate intensity statin is recommended if risk less than 7.5%, high intensity if risk greater than or equal to 7.5%. Annual lipid monitoring on statins is not necessary. Lifestyle modification is a critical component of ASCVD risk reduction. Blood specimen (specimen) 08/09/2018 9:35 PM EDT 08/09/2018 9:48 PM EDT Narrative Resulting Agency Comment Spec In Lab Brenna Corbett MD CHEMISTRY ORDERABLES Performing Organization Address [facility]/ZIP Co de Phone Number [facility] [place] [address] * Troponin (08/09/2018 9:35 PM EDT) Pathologist [facility] Troponin-T <0.01 0.00 - 0.00 ng/mL [facility] Comment: The 99th percentile for Troponin T is less than 0.01 ng/mL, any detectable cTnT concentration using this assay should be considered elevated. According to the third universal definition of myocardial infarction the following criteria with a clinical presentation consistent with acute myocardial ischemia meets the diagnosis for a myocardial infarction (NV). Detection of a rise and/or fall of cTnT, with at least one value greater than the 99th percentile (> or = 0.01) and with at least one of the following ?? Symptoms of ischemia ?? New or presumed new significant UV-[id number]-W wave (ST-T) changes or new left bundle [...] additional sample may be indicated. Reference: Third [place] Definition of Myocardial Infarction. Journal of the [place] [employer] 2012;60:1581-98 Blood specimen (specimen) 08/09/2018 9:35 PM EDT 08/09/2018 9:48 PM EDT Narrative Resulting Agency Comment Spec In Lab Brenna Corbett MD CHEMISTRY ORDERABLES Performing Organization Address [facility]/ZIP Co de Phone Number [facility] [place] [address] * Basic Metabolic Panel (non-fasting) (08/09/2018 9:35 PM EDT) Pathologist [facility] Glucose 102 65 - 199 mg/dL [facility] Comment:Diabetes: >=200 mg/d L plus symptoms Blood Urea Nitrogen 17 10 - 20 mg/dL [facility] Creatinine 0.97 0.80 - 1.50 mg/dL [facility] Sodium 141 135 - 145 mmol/L [facility] Potassium 3.9 3.5 - 5.0 mmol/L [facility] Comment: Please note: ??Patients with WBC >100,000 may have falsely elevated Potassium levels. ??For accurate Potassium quantification in these patients send serum separator tube (gold top) for subsequent determinations. ??Contact the Clinical Chemistry Laboratory if there are any questions. Chloride 103 98 - 107 mmol/L [facility] Carbon Dioxide 25 22 - 31 mmol/L [facility] Anion Gap 13 5 - 15 mmol/L [facility] Calcium 9.4 8.5 - 10.5 mg/dL [facility] Est Glomerular Filtration Rate 80 >=60 mL/min/1. 73 m?? [facility] Comment: The eGFR was calculated using the CKD-EPI equation. As with all creatinine based estimates of kidney function, eGFR values calculated with the CKD-EPI equation are not accurate in patients with acute kidney failure, extremes of body mass or the acutely ill. [email or web address] eGFR 93 >=60 mL/min/1. 73 m?? [facility] Comment: The eGFR was calculated using the CKD-EPI equation. As with all creatinine based estimates of kidney function, eGFR values calculated with the CKD-EPI equation are not accurate in patients with acute kidney failure, extremes of body mass or the acutely ill. [email or web address] Blood specimen (specimen) 08/09/2018 9:35 PM EDT 08/09/2018 9:48 PM EDT Narrative Resulting Agency Comment Spec In Lab Brenna Corbett MD CHEMISTRY ORDERABLES [facility] [place] [address] * EKG 12 Lead (08/09/2018 9:30 PM EDT) Ventricular rate 61 BPM MUSE SYSTEM Atrial Rate 61 BPM MUSE SYSTEM P-R Interval 172 ms MUSE SYSTEM QRS Duration 124 ms MUSE SYSTEM Q-T Interval 446 ms MUSE SYSTEM QTC Calculated (Bezet) 448 ms MUSE SYSTEM Calculated P [place] -9 degrees MUSE SYSTEM Calculated R [place] -57 degrees MUSE SYSTEM Calculated T [place] 3 degrees MUSE SYSTEM INTERPRETATION Normal sinus rhythm Left anterior fascicular block Intraventricul ar conduction delay , non-specific Abnormal ECG When compared with ECG of 21-APR-2017 07:40, No significant change was found Confirmed by MD Jessika, Kevin Viramontes ([id number]) on 08/10/2018 12:25:21 PM MUSE SYSTEM 08/09/2018 9:30 PM EDT 08/10/2018 12:25 PM EDT Brenna Corbett MD ECG ORDERABLES MUSE SYSTEM documented in this encounter Visit Diagnoses Diagnosis TIA (transient ischemic attack) Unspecified transient cerebral ischemia Cerebrovascular accident (CVA), unspecified mechanism Cerebral infarction due to embolism of left middle cerebral artery Cerebral embolism with cerebral infarction Acute ischemic left MCA stroke Unspecified cerebral artery occlusion with cerebral infarction Cerebrovascular accident (CVA), unspecified mechanism documented in this encounter Admitting Diagnoses Diagnosis Acute ischemic left MCA stroke Unspecified cerebral artery occlusion with cerebral infarction documented in this encounter Administered Medications Inactive Administered Medications - up to 3 most recent administrations Medication Order MAR Action Action Date Dose Rate Site acetaminophen (TYLENOL) 650 mg/20.3 mL oral liquid 975 mg 975 mg, Per G Tube, EVERY 6 HOURS PRN, Starting on Thu08/10/18 at 0303, Until Thu08/11/18 at 1635, Pain, Fever, pain or temperature greater than 100 degrees F (measured by mouth), Routine acetaminophen (TYLENOL) suppository 975 mg 975 mg, Rectal, EVERY 6 HOURS PRN, Starting on Thu08/10/18 at 0303, Until Thu08/11/18 at 1635, Pain, Fever, pain or temperature greater than 100 degrees F (measured by mouth), Maximum dose of acetaminophen is 4000 mg from all sources in 24 hours., Routine acetaminophen (TYLENOL) tablet 975 mg 975 mg, Oral, EVERY 6 HOURS PRN, Starting on Thu08/10/18 at 0303, Until Thu08/11/18 at 1635, Pain, Fever, pain or temperature greater than 100 degrees F (measured by mouth), Maximum dose of acetaminophen is 4000 mg from all sources in 24 hours., Routine aspirin EC tablet 81 mg 81 mg, Oral, DAILY, First dose on Thu08/10/18 at 0900, Until Discontinued, Routine Given 08/11/2018 8:38 AM EDT 81 mg Given 08/10/2018 8:43 AM EDT 81 mg aspirin tablet 325 mg 325 mg, Oral, DAILY, First dose on Thu08/11/18 at 1400, Until Discontinued, Routine Given 08/11/2018 2:0 1 PM EDT 325 mg atorvastatin (LIPITOR) tablet 40 mg 40 mg, Oral, DAILY, First dose on Thu08/10/18 at 0900, Until Discontinued, Routine Given 08/10/2018 8:43 AM EDT 40 mg buPROPion (WELLBUTRIN SR or ZYBAN) SR tablet 150 mg 150 mg, Oral, 2 TIMES DAILY, First dose on Thu08/10/18 at 0900, Until Discontinued, DO NOT CRUSH OR OPEN, Routine Given 08/11/2018 8:37 AM EDT 150 mg Given 08/10/2018 8:04 PM EDT 150 mg Given 08/10/2018 8:43 AM EDT 150 mg clopidogrel (PLAVIX) tablet 75 mg 75 mg, Oral, DAILY, First dose on Thu08/10/18 at 0900, Until Discontinued, Routine Given 08/11/2018 8:38 AM EDT 75 mg Given 08/10/2018 10:35 AM EDT 75 mg iohexol (OMNIPAQUE) 350 mg/mL solution 0-200 mL 0-200 mL, Intravenous, ONCE PRN, 1 dose, Starting on Thu08/09/18 at 2147, Until Thu08/09/18 at 2147, Per Protocol, Warning Vesicant/Irritant Medication , Radiology Contrast, Routine Given 08/09/2018 9:47 PM EDT 65 mLs isosorbide mononitrate (IMDUR) CR tablet 30 mg 30 mg, Oral, DAILY, First dose on Thu08/10/18 at 1500, Until Discontinued, DO NOT CRUSH OR OPEN, Routine Given 08/11/2018 8:37 AM EDT 30 mg Given 08/10/2018 3:35 PM EDT 30 mg LORazepam (ATIVAN) injection 3 mg 3 mg, Intravenous, ONCE PRN, 1 dose, Starting on Thu08/10/18 at 1016, Until Thu08/10/18 at 1629, for MRI, Routine Given 08/10/2018 4:29 PM EDT 3 mg metoprolol tartrate (LOPRESSOR) tablet 12.5 mg 12.5 mg, Oral, EVERY 6 HOURS SCHEDULED, First dose on Thu08/10/18 at 1200, Until Discontinued, Please hold for HR less than or equal to 60 Please hold for SBP less than or equal to 90, Routine Given 08/11/2018 12:30 PM EDT 12.5 mg Given 08/11/2018 5:14 AM EDT 12.5 mg Given 08/10/2018 11:20 PM EDT 12.5 mg pantoprazole (PROTONIX) tablet 40 mg 40 mg, Oral, DAILY, First dose on Thu08/10/18 at 0900, Until Discontinued, DO NOT CRUSH OR OPEN, Routine Given 08/11/2018 8:37 AM EDT 40 mg Given 08/10/2018 8:43 AM EDT 40 mg perflutren protein-A microspheres (OPTISON) 0.22 mg/mL injection 2.5 mL 2.5 mL, Intravenous, ONCE PRN, 1 dose, Starting on Thu08/10/18 at 0949, Until Thu08/10/18 at 0900, Per Protocol, Routine Given 08/10/2018 9:00 AM EDT 2.5 m Ls polyethylene glycol (MIRALAX) packet 17 g 17 g, Oral, DAILY, First dose on Thu08/10/18 at 0900, Until Discontinued, Routine Given 08/11/2018 8:38 AM EDT 17 g senna-docusate (PERICOLACE) 8.6-50 mg per tablet 2 tablet 2 tablet, Oral, 2 TIMES DAILY, First dose on Thu08/10/18 at 0900, Until Discontinued, Administer to achieve 1 soft bowel movement daily without straining, Routine Given 08/11/2018 8:38 AM EDT 2 tablets Given 08/10/2018 8:04 PM EDT 2 tablets Given 08/10/2018 8:43 AM EDT 2 tablets sodium chloride 0.9 % flush 5 mL 5 mL, Intravenous, 2 TIMES DAILY, First dose on Thu08/10/18 at 0900, Until Discontinued, Routine Given 08/11/2018 8:41 AM EDT 5 mLs Given 08/10/2018 8:06 PM EDT 5 mLs Given 08/10/2018 8:44 AM EDT 5 mLs ubiquinone (coenzyme Q10) capsule 100 mg 100 mg, Oral, DAILY, First dose on Thu08/10/18 at 0900, Until Discontinued, Routine Given 08/11/2018 8:41 AM EDT 100 mg vitamin E capsule 400 Units 400 Units, Oral, DAILY, First dose on Thu08/10/18 at 1500, Until Discontinued Given 08/11/2018 8:41 AM EDT 400 Unit s Given 08/10/2018 3:35 PM EDT 400 Units documented in this encounter Active and Recently Administered Medications Times are shown in EDT. Scheduled Medication Order 08/09/2018 08/10/2018 08/11/2018 aspirin EC tablet 81 mg 81 mg, Oral, DAILY, First dose on Thu08/10/18 at 0900, Until Discontinued, Routine 0843 (Given - Provider: Ernst Quintana RN) 0838 (Given - Provider: Toni Mittal RN) aspirin tablet 325 mg 325 mg, Oral, DAILY, First dose on Thu08/11/18 at 1400, Until Discontinued, Routine 1401 (Given - Provid er: Toni Mittal RN) atorvastatin (LIPITOR) tablet 40 mg 40 mg, Oral, DAILY, First dose on Thu08/10/18 at 0900, Until Discontinued, Routine 0843 (Given - Provider: Ernst Quintana RN) buPROPion (WELLBUTRIN SR or ZYBAN) SR tablet 150 mg 150 mg, Oral, 2 TIMES DAILY, First dose on Thu08/10/18 at 0900, Until Discontinued, DO NOT CRUSH OR OPEN, Routine 0843 (Given - Provider: Ernst Quintana RN)2004 (Given - Provider: Nayla Stahl RN) 0837 (Given - Provider: Toni Mittal RN) clopidogrel (PLAVIX) tablet 75 mg 75 mg, Oral, DAILY, First dose on Thu08/10/18 at 0900, Until Discontinued, Routine 1035 (Given - Provider: Ernst Quintana RN) 0838 (Given - Provider: Toni Mittal, GLORIA) enoxaparin (LOVENOX) injection 40 mg 40 mg, Subcutaneous, NIGHTLY, First dose on Thu08/11/18 at 2100, Until Discontinued, Routine isosorbide mononitrate (IMDUR) CR tablet 30 mg 30 mg, Oral, DAILY, First dose on Thu08/10/18 at 1500, Until Discontinued, DO NOT CRUSH OR OPEN, Routine 1535 (Given - Provider: Zarina Jonas, RN) 0837 (Given - Provider: Toni Mittal, GLORIA) metoprolol tartrate (LOPRESSOR) tablet 12.5 mg 12.5 mg, Oral, EVERY 6 HOURS SCHEDULED, First dose on Thu08/10/18 at 1200, Until Discontinued, Please hold for HR less than or equal to 60 Please hold for SBP less than or equal to 90, Routine 1156 (Given - Provider: Ernst Quintana, GLORIA)1821 (Given - Provider: Zarina Jonas, GLORIA)2320 (Given - Provider: Latha Macias RN) 0514 (Given - Provider: Nayla Stahl RN)1230 (Given - Provider: Toni Mittal, GLORIA) pantoprazole (PROTONIX) tablet 40 mg 40 mg, Oral, DAILY, First dose on Thu08/10/18 at 0900, Until Discontinued, DO NOT CRUSH OR OPEN, Routine 0843 (Given - Provider: Ernst Quintana, GLORIA) 0837 (Given - Provider: Toni Mittal, GLORIA) polyethylene glycol (MIRALAX) packet 17 g 17 g, Oral, DAILY, First dose on Thu08/10/18 at 0900, Until Discontinued, Routine 0900 (Not Given - Provider: Ernst Quintana RN - Reason: Patient/family refused) 0838 (Given - Provider: Toni Mittal, GLORIA) senna-docusate (PERICOLACE) 8.6-50 mg per tablet 2 tablet 2 tablet, Oral, 2 TIMES DAILY, First dose on Thu08/10/18 at 0900, Until Discontinued, Administer to achieve 1 soft bowel movement daily without straining, Routine 0843 (Given - Provider: Ernst Quintana, RN)2003 (Given - Provider: Nayla Stahl, GLORIA) 0838 (Given - Provider: Toni Mittal, GLORIA) sodium chloride 0.9 % flush 5 mL 5 mL, Intravenous, 2 TIMES DAILY, First dose on Thu08/10/18 at 0900, Until Discontinued, Routine 0844 (Given - Provider: Ernst Quintana, RN)2005 (Given - Provider: Nayla Stahl, GLORIA) 0841 (Given - Provider: Toni Mittal, GLORIA) ubiquinone (coenzyme Q10) capsule 100 mg 100 mg, Oral, DAILY, First dose on Thu08/10/18 at 0900, Until Discontinued, Routine 0900 (Not Given - Provider: Zarina Jonas RN - Reason: Medication not available) 0841 (Given - Provider: Toni Mittal RN) vitamin E capsule 400 Units 400 Units, Oral, DAILY, First dose on Thu08/10/18 at 1500, Until Discontinued 1535 (Given - Provider: Zarina Jonas RN) 0841 (Given - Provider: Toni Mittal RN) PRN Medication Order 08/09/2018 08/10/2018 08/11/2018 acetaminophen (TYLENOL) 650 mg/20.3 mL oral liquid 975 mg(Linked Group 1) 975 mg, Per G Tube, EVERY 6 HOURS PRN, Starting on Thu08/10/18 at 0303, Until Thu08/11/18 at 1635, Pain, Fever, pain or temperature greater than 100 degrees F (measured by mouth), Routine acetaminophen (TYLENOL) suppository 975 mg(Linked Group 1) 975 mg, Rectal, EVERY 6 HOURS PRN, Starting on Thu08/10/18 at 0303, Until Thu08/11/18 at 1635, Pain, Fever, pain or temperature greater than 100 degrees F (measured by mouth), Maximum dose of acetaminophen is 4000 mg from all sources in 24 hours., Routine acetaminophen (TYLENOL) tablet 975 mg(Linked Group 1) 975 mg, Oral, EVERY 6 HOURS PRN, Starting on Thu08/10/18 at 0303, Until Thu08/11/18 at 1635, Pain, Fever, pain or temperature greater than 100 degrees F (measured by mouth), Maximum dose of acetaminophen is 4000 mg from all sources in 24 hours., Routine bisacodyl (DULCOLAX) suppository 10 mg 10 mg, Rectal, DAILY PRN, Starting on Thu08/10/18 at 0303, Until Thu08/11/18 at 1635, Constipation, Administer if needed per patient's routine or if no bowel movement within 48 hours to achieve: (1) One bowel movement at least every 48 hours, AND (2) Without straining. If multiple PRN bowel medications ordered, start with magnesium hydroxide, then bisacodyl. Multiple medications may be given concomitantly for constipation., Routine iohexol (OMNIPAQUE) 350 mg/mL solution 0-200 mL (COMPLETED) 0-200 mL, Intravenous, ONCE PRN, 1 dose, Starting on Thu08/09/18 at 2147, Until Thu08/09/18 at 2147, Per Protocol, Warning Vesicant/Irritant Medication , Radiology Contrast, Routine 2146 (Given - Provider: Joe Mckeon) labetalol (NORMODYNE,TRANDATE) injection 10-20 mg 10-20 mg, Intravenous, Administer over 2 Minutes, EVERY 15 MIN PRN, Starting on Thu08/10/18 at 0303, Until Thu08/11/18 at 1635, High Blood Pressure, - Systolic blood pressure (SBP) goal Less Than 220 mmHg. Start with 10 mg/dose every 15 minutes, If inadequate effect with 10 mg/dose then increase to 20 mg/dose for subsequent dosing. - Do not exceed 300 mg per day. - Repeat every 15 minutes for SBP greater than 220 mmHg. - Hold if pulse is less than 50 beats per minute. If Labetalol does not satisfactorily control BP within 30 minutes, consider enalaprilat or niCARdipine., Routine lidocaine (XYLOCAINE) 10 mg/mL (1 %) injection 3 mg 3 mg (0.3 mL), Subcutaneous, ONCE PRN, 1 dose, Starting on Thu08/10/18 at 0303, Until Thu08/11/18 at 1635, for discomfort with PIV insertion, Routine LORazepam (ATIVAN) injection 3 mg (COMPLETED) 3 mg, Intravenous, ONCE PRN, 1 dose, Starting on Thu08/10/18 at 1016, Until Thu08/10/18 at 1629, for MRI, Routine 1629 (Given - Provider: Zarina Jonas RN) magnesium hydroxide (MILK OF MAGNESIA) oral suspension 10 mL 10 mL, Oral, NIGHTLY PRN, Starting on Thu08/10/18 at 0303, Until Thu08/11/18 at 1635, Constipation, Administer if needed per patient's routine or if no bowel movement within 48 hours to achieve: (1) One bowel movement at least every 48 hours, AND (2) Without straining. If multiple PRN bowel medications ordered, start with magnesium hydroxide, then bisacodyl. Multiple medications may be given concomitantly for constipation., Routine nitroGLYcerin (NITROSTAT) SL tablet 0.4 mg 0.4 mg, Sublingual, ONCE PRN, Starting on Thu08/10/18 at 0303, Until Thu08/11/18 at 1635, Chest pain, SL nitroglycerin may be repeated every 5 minutes as needed up to 3 doses, Routine perflutren protein-A microspheres (OPTISON) 0.22 mg/mL injection 2.5 mL (COMPLETED) 2.5 mL, Intravenous, ONCE PRN, 1 dose, Starting on Thu08/10/18 at 0949, Until Thu08/10/18 at 0900, Per Protocol, Routine 0900 (Given - Provider: Handy Lal) sodium chloride 0.9 % flush 5-20 mL 5-20 mL, Intravenous, EVERY 1 MIN PRN, Starting on Thu08/10/18 at 0303, Until Thu08/11/18 at 1635, flush, Flush pertains to all indwelling lines. Flush per protocol found in the job aid using the link provided on this medication record., Routine Linked Groups Order Group 1: acetaminophen (TYLENOL) tablet 975 mgJump to med 975 mg, Oral, EVERY 6 HOURS PRN, Starting on Thu08/10/18 at 0303, Until Thu08/11/18 at 1635, Pain, Fever, pain or temperature greater than 100 degrees F (measured by mouth), Maximum dose of acetaminophen is 4000 mg from all sources in 24 hours., Routine Or acetaminophen (TYLENOL) 650 mg/20.3 mL oral liquid 975 mgJump to med 975 mg, Per G Tube, EVERY 6 HOURS PRN, Starting on Thu08/10/18 at 0303, Until Thu08/11/18 at 1635, Pain, Fever, pain or temperature greater than 100 degrees F (measured by mouth), Routine Or acetaminophen (TYLENOL) suppository 975 mgJump to med 975 mg, Rectal, EVERY 6 HOURS PRN, Starting on Thu08/10/18 at 0303, Until Thu08/11/18 at 1635, Pain, Fever, pain or temperature greater than 100 degrees F (measured by mouth), Maximum dose of acetaminophen is 4000 mg from all sources in 24 hours., Routine documented in this encounter Care Teams Silk Weaver Relationship Specialty Start Date End Date Vel Santos MD [address] [place] [address] [phone] PCP - General 09/24/10 06/04/23 documented as of this encounter
--- OUTSIDE RECORDS SUMMARY | 2024-07-19 22:18 | XMS_ITS | Encounter Summary ---
[facility] [place] [address] Care Team Providers Care Gas Controller Name Role Phone Vel Santos MD Primary Care Provider [phone] Encounter Details Date Type Department Care Team (Late st Contact Info) Description 08/08/2018 [place] [phone] Isaac Aguero PA [facility] [place] [address] Unstable angina Social History Tobacco Use Types Packs/Day Years [...] 10:30 AM EDT Hospital En[place] [phone] Navi Montero MD [facility] [place] [address] 08/09/2024 10:30 AM EDT - 08/09/2024 11:15 AM EDT Surgery [place] [phone] Navi Montero MD [facility] [place] [address] COLONOSCOPY,SCREENI NG (WRVU 3.26) Scheduled Procedures Name Priority Associated Diagnoses Date/Ti me COLONOSCOPY,SCREENING (WRVU 3.26) polyps 08/09/2024 10:30 AM EDT documented as of this encounter Procedures Procedure Name Priority Date/Time Associated Diagnosis Comments CARDIAC CATHETERIZATION Routine 09/01/20 18 2:25 PM EDT Unstable angina documented in this encounter Results * CARDIAC CATHETERIZATION (09/01/2018 2:25 PM EDT) Anatomical Region Laterality Modality Other Narrative 09/01/2018 2:39 PM EDT ?[facility] ? Cardiac Catheterization/Intervention Report ? Patient Name: Roland Vega ? Procedure Date: 09/01/2018 ? A #: [id number] ? Primary Physician: Dhaval, Ernst Nieto ? Case #: [id number] ? File Name: [id number] ? Catheterization Order Number: [id number] ? [facility] ? Final Report [place], [place] ? Patient Name: ? Roland Vega ? ID#: ?[id number] ? : ?1950 ? Procedure Date: ? September 01, 2018 ? Case #: ? [id number] ? Room: ? 1 ? Case Physician: ? Ernst Puentes M.D. ?Start: ?13:39 ?Fellow: ? Teresa Sims M.D. ?Admission: ??09/01/2018 ? Referring Physician: ??Vel Santos M.D. ? Procedures: ?* Coronary Angiography ?* Left Heart Catheterization ? History ?Roland Vega is a 68 year old man. He has hypertension and a family ?history of coronary artery disease. The patient has a history of smoking ?(20 pack years). He has hypercholesterolemia managed with lipid therapy. ?The patient has atypical symptoms for coronary artery disease and a prior ?history of coronary artery disease. He is status post a remote myocardial ?infarction. The patient had a remote coronary intervention procedure. He ?has a history of pre-syncope. The patient has a recent cerebral vascular ?accident. He also has a history of an abnormal EKG. Prior to the ?initiation of this procedure, the patient was designated as ASA Class ?III. ? Patient Status at Catheterization: ?The patient presented with: stable angina (w/i 42 days). [place] ?Cardiovascular Society angina class was III. This patient was on beta ?blockers prior to the procedure. An echo stress test was performed and ?results were Indeterminant. The status of the diagnostic procedure was ?Elective. ? Technique: ?A 6 SLFr sheath was inserted in the right radial artery utilizing the ?Seldinger technique. The left coronary artery was injected utilizing a ?6Fr JL 4 catheter. A 5Fr BRIAN RADIAL catheter was used to inject the ?right coronary artery. Left ventricular pressure was performed with a 6Fr ?ANGLED PIGTAIL catheter. 6,000 units of heparin were administered. A ?total of 150cc of Omnipaque were opened, 110cc of Omnipaque were ?administered and 40cc of Omnipaque were wasted. Radiation: Fluoro time ?was 12.2 minutes, dose area product was 150,110 mGYcm2 and air kerma was ?1,856 mGY. ?The patient received the following medications prior to and during the ?procedure: Unfractionated Heparin (any). ? Hemodynamics: ?Left Heart Pressures ? Resting: ? Syst Diast ? EDP ?a ?v ? m ?Ao 120 ?? 69 ?92 ?LV 123 ? 11 ?Comments: ??Ao Opening- 118/80(95). ? Coronary Angiography: ?Dominance: Right ?Left Main ? Mild luminal irregularity. ?Left Anterior Descending ? There was a 60% single discrete stenosis of the ostial segment of ? the first diagonal branch (Diagonal 1) of the left anterior ? descending (LAD). ??The previously placed stent is patent. ? Mild diffuse disease in the mid-distal vessel; proximal ectactic ? segment. ?Left Circumflex ? The ostial segment of the first obtuse marginal branch (OM1) of the ? left circumflex (LCX) was noted. ??The previously placed stent is ? patent. ? Mild luminal irregularities. ?Right Coronary Artery ? The ostial segment of the right posterior descending branch (RPDA) ? of the right coronary artery (RCA) was noted. ??The previously placed ? stent is patent. ? Mid-vessel is ectactic. ? Vascular Access: ?Vascular Access Management: ? Mechanical Compression of the right radial artery access site was ? performed. ? Conclusions: ?* One vessel coronary artery disease (LAD) ? Complications/Events: ?The patient had no complications during these procedures. ? Recommendations: ?Based upon the results of this procedure, it was recommended that medical ?therapy be considered. ? Comments: ?Procedure(s) (LRB): ?CARDIAC CATHETERIZATION (N/A) ?Right transradial arterial access ?Selective coronary angiography ?Left heart catheterization ?Findings: ?LM - Mild luminal irregularity ?LAD - Moderate proximal ectasia; prior stent in the mid-D1 is widely ?patent; D1 has an ostial 60% stenosis; mild diffuse disease in the ?ehg-rj-qlwaxs vessel ?LCX - Mild luminal irregularities; prior stent in high OM1 is widely ?patent ?RCA - Large caliber vessel; mid-vessel is ectactic; prior stent in the ?rPDA is widely patent ?LVEDP 11 mmHg; no significant mpid-ir-nlri gradient across the aortic ?valve. ?The attending physician was present for the entire procedure. ?Dr. Ernst Puentes M.D. was present during the moderate sedation ?intraservice time as documented by the sedation nurse. ??Case time = 00:36. ?Dr. Ernst Puentes M.D. performed the coronary angiography and left heart ?catheterization. ? Ernst Puentes M.D. ? Report Finalized: 09/01/2018 ??14:35 ? Procedure Note Ernst Puentes MD - 09/01/2018 [facility] Cardiac Catheterization/Intervention Report Patient Name: Roland Vega Procedure Date: 09/01/2018 A #: [id number] Primary Physician: Ernst Puentes Case #: [id number] File Name: [id number] Catheterization Order Number: [id number] [facility] FinalReport [place], [place] Patient Name: Roland Vega ID#:[id number] :1950 Procedure Date: September 01, 2018 Case #: [id number] Room: 1 Case Physician: Ernst Puentes M.D. Start: 13:39 Fellow: Teresa Sims M.D. Admission:09/01/2018 Referring Physician: Vel Santos M.D. Procedures: * Coronary Angiography * Left Heart Catheterization History Roland Vega is a 68 year old man. He has hypertension and afamily history of coronary artery disease. The patient has a history ofsmoking (20 pack years). He has hypercholesterolemia managed with lipidtherapy. The patient has atypical symptoms for coronary artery disease and aprior history of coronary artery disease. He is status post a remotemyocardial infarction. The patient had a remote coronary interventionprocedure. He has a history of pre-syncope. The patient has a recent cerebralvascular accident. He also has a history of an abnormal EKG. Prior to the initiation of this procedure, the patient was designated as ASAClass III. Patient Status at Catheterization: The patient presented with: stable angina (w/i 42 days). [place] [employer]ovascular Society angina class was III. This patient was onbeta blockers prior to the procedure. An echo stress test was performedand results were Indeterminant. The status of the diagnostic procedurewas Elective. Technique: A 6 SLFr sheath was inserted in the right radial artery utilizingthe Seldinger technique. The left coronary artery was injected utilizinga 6Fr JL 4 catheter. A 5Fr BRIAN RADIAL catheter was used to injectthe right coronary artery. Left ventricular pressure was performed witha 6Fr ANGLED PIGTAIL catheter. 6,000 units of heparin were administered. A total of 150cc of Omnipaque were opened, 110cc of Omnipaque were administered and 40cc of Omnipaque were wasted. Radiation: Fluorotime was 12.2 minutes, dose area product was 150,110 mGYcm2 and air kermawas 1,856 mGY. The patient received the following medications prior to and duringthe procedure: Unfractionated Heparin (any). Hemodynamics: Left Heart Pressures Resting: Syst Diast EDP a v m Ao 120 69 92 LV 123 11 Comments: Ao Opening- 118/80(95). Coronary Angiography: Dominance: Right Left Main Mild luminal irregularity. Left Anterior Descending There was a 60% single discrete stenosis of the ostial segmentof the first diagonal branch (Diagonal 1) of the left anterior descending (LAD). The previously placed stent is patent. Mild diffuse disease in the mid-distal vessel; proximalectactic segment. Left Circumflex The ostial segment of the first obtuse marginal branch (OM1) ofthe left circumflex (LCX) was noted. The previously placed stentis patent. Mild luminal irregularities. Right Coronary Artery The ostial segment of the right posterior descending branch(RPDA) of the right coronary artery (RCA) was noted. The previouslyplaced stent is patent. Mid-vessel is ectactic. Vascular Access: Vascular Access Management: Mechanical Compression of the right radial artery access sitewas performed. Conclusions: * One vessel coronary artery disease (LAD) Complications/Events: The patient had no complications during these procedures. Recommendations: Based upon the results of this procedure, it was recommended thatmedical therapy be considered. Comments: Procedure(s) (LRB): CARDIAC CATHETERIZATION (N/A) Right transradial arterial access Selective coronary angiography Left heart catheterization Findings: LM - Mild luminal irregularity LAD - Moderate proximal ectasia; prior stent in the mid-D1 is widely patent; D1 has an ostial 60% stenosis; mild diffuse disease in the sto-cw-vgvgjj vessel LCX - Mild luminal irregularities; prior stent in high OM1 is widely patent RCA - Large caliber vessel; mid-vessel is ectactic; prior stent inthe rPDA is widely patent LVEDP 11 mmHg; no significant uwri-tv-alip gradient across theaortic valve. The attending physician was present for the entire procedure. Dr. Ernst Puentes M.D. was present during the moderate sedation intraservice time as documented by the sedation nurse. Case time =00:36. Dr. rEnst Puentes M.D. performed the coronary angiography and leftheart catheterization. Ernst Puentes M.D. Report Finalized: 09/01/2018 14:35 Ernst Puentes MD CARDIAC CATH ORDERAB LES documented in this encounter Visit Diagnoses Diagnosis Unstable angina Intermediate coronary syndrome Unstable angina Intermediate coronary syndrome documented in this encounter Care Teams Gas Controller Relationship Specialty Start Date End Date Vel Santos MD [address] [place] [address] [phone] PCP - General 09/24/10 06/04/23 documented as of this encounter
--- OUTSIDE RECORDS SUMMARY | 2024-07-19 22:18 | XMS_ITS | Encounter Summary ---
Author Organization [facility] [place] [address] Care Team Providers Care Clay Preparation Supervisor Name Role Phone Vel Santos MD Primary Care Provider [phone] Encounter Details Date Type Department Care Team (Late st Contact Info) Description 11/12/2010 [place] [phone] Kevyn Abdi MD [facility] [place] [address] Social History Tobacco Use Types Packs/Day Years [...] 10:30 AM EDT Hospital [place] [phone] Navi Montero MD [facility] [place] [address] 08/09/2024 10:30 AM EDT - 08/09/2024 11:15 AM EDT [place] [phone] Navi Montero MD [facility] [place] [place] [address] COLONOSCOPY,SCREENI NG (WRVU 3.26) Scheduled Procedures Name Priority Associated Diagnoses Date/Ti me COLONOSCOPY,SCREENING (WRVU 3.26) polyps 08/09/2024 10:30 AM EDT documented as of this encounter Procedures Procedure Name Priority Date/Time Associated Diagnosis Comments DIFFERENTIAL, AUTOMATED Routine 11/13/2010 7:14 AM EST CARDIAC ENZYMES ([facility]) Routine 11/13/2010 7:14 AM EST CREATININE Routine 11/13/2010 7:14 AM EST CBC (WITH DIFF) Routine 11/13/2010 7:14 AM EST BUN Routine 11/13/2010 7:14 AM EST TSH Routine 11/13/2010 7:14 AM EST HEMOGLOBIN A1C Routine 11/13/2010 7:14 AM EST GLUCOSE, FASTING Routine 11/13/2010 7:14 AM EST HEPATIC FUNCTION PANEL Routine 11/13/2010 7:14 AM EST LIPID PANEL (REFLEX DIRECT LDL) Routine 11/13/2010 7:14 AM EST ELECTROLYTES PANEL Routine 11/13/2010 7: 14 AM EST CARDIAC ENZYMES ([facility]) Routine 11/12/2010 11:00 PM EST DIFFERENTIAL, AUTOMATED STAT 11/12/2010 3:05 PM EST CARDIAC ENZYMES ([facility]) STAT 11/12/2010 3:05 PM EST CREATININE STAT 11/12/2010 3:05 PM EST APTT STAT 11/12/2010 3:05 PM EST PROTHROMBIN TIME STAT 11/12/2010 3:05 PM EST CBC (WITH DIFF) STAT 11/12/2010 3:05 PM EST BUN STAT 11/12/2010 3:05 PM EST ELECTROLYTES PANEL STAT 11/12/2010 3: 05 PM EST documented in this encounter Results * HEMOGLOBIN A1C (11/13/2010 7:14 AM EST) [facility] Hemoglobin A1c 4.9 4.3 - 6.1 % [facility] Estimated Average Glucose 94 mg/dL [facility] Comment: eAG equivalents for HbA1c percentages: HbA1c(%) ?eAG(mg/dL) 6.0 ?126 6.5 ?140 7.0 ?154 7.5 ?169 8.0 ?183 8.5 ?197 9.0 ?212 9.5 ?226 10.0 ? 240 Limitations: The eAG calculation has not been validated on women, individuals below 18 years old and above 70 years old, and individuals with hemoglobinopathies. Additional resources are available on the ADA website: ??http://professional.diabetes.org/glucosecalculator.aspx Reference: Isaac HACKETT, Isaiah J, Trini R, et al. ??Translating the A1C assay into estimated average glucose values. ??Diabetes Care 2008:31(8):7366-6239. Blood specimen (specimen) 11/13/2010 7:14 AM EST 11/13/2010 7:33 AM EST Kevyn Abdi MD CHEMISTRY ORDERABLE S [facility] * TSH (11/13/2010 7:14 AM EST) Thyroid Stimulating Hormone 1.66 0.27 - 4.20 mcIU/mL [facility] Comment: [place] Cord Blood Reference Range: ??0.35 23.00 uIU/mL Blood specimen (specimen) 11/13/2010 7:14 AM EST 11/13/2010 7:33 AM EST Kevyn Abdi MD CHEMISTRY ORDERABLE S Performing Organization Address City/[facility] Co de Phone Number RACHEL DOMINGUEZ * (ABNORMAL) CARDIAC ENZYME PANEL (11/13/2010 7:14 AM EST) Troponin-T 0.08(H) <=0.03 ng/mL [facility] Comment: 0.03 ng/mL: ??Represents the 99th percentile upper reference limit for normals >0.03 ng/mL: ??Elevated cardiac troponin T level indicative of myocardial damage Diagnosis of acute, evolving or recent MN requires a typical rise and gradual fall of cTnT with at least ONE of the following: a) ??Ischemic symptoms b) ??Development of pathologic Q waves on the ECG c) ??ECG changes indicative of ischemia (S-T segment elevation/depression) d) ??Coronary artery intervention Serial bloods should be obtained for testing on admission, at 6-9h and again at 12-24h if earlier samples are negative and the clinical index of suspicion is high. Reference [Myocardial infarction redefined a consensus document of the Joint Society of Cardiology/[place] College of Cardiology Committee for the redefinition of myocardial infarction. Journal of the [place] College of Cardiology 2000; 36: 959-969] Creatine Kinase 87 0 - 200 unit/L [facility] Blood specimen (specimen) 11/13/2010 7:14 AM EST 11/13/2010 7:33 AM EST Kevyn Abdi MD CHEMISTRY ORDERABLE S RACHEL DOMINGUEZ * (ABNORMAL) LIPID PANEL (11/13/2010 7:14 AM EST) Cholesterol, Total 157 <=199 mg/dL [facility]HEL [facility] Comment: Recommendations of the NCEP Adult Treatment Panel for the following risk cutoff thresholds for the [place] population: Desirable: <200 mg/dL Borderline High: 200-239 mg/dL High: > or = 240 mg/dL Triglyceride 329(H) <=149 mg/dL [facility] Comment: Reference Range: Normal triglycerides: ??<150 mg/dL Borderline high: ??150-199 mg/dL High: ??200-499 mg/dL Very high: ??>xy=921 mg/dL BLANCA 2001; 285(19):5966-5778 HDL Cholesterol 25(L) >=40 mg/dL [facility] Comment: Reference range: ??Low HDL: ?? < 40 mg/dL ??Normal: ?40-60 mg/dL ??Desirable: > 60 mg/dL BLANCA 2001; 285(19):2724-2915 LDL Cholesterol 66 <=99 mg/dL [facility] Comment: Reference range: ?? Optimal: ?<100 mg/dL ?? Near Optimal/Above Optimal: ?? 100-129 mg/dL ?? Borderline high: ?130-159 mg/dL ?? High: ? 160-189 mg/dL ?? Very high: ?>ip=315 mg/dL BLANCA 2001: 285(19):8377-4439 Cholesterol/HDL Ratio 6.3 ratio [facility] Comment: A Cholesterol to HDL ratio below 4:1 is desirable. ??Studies suggest that increased CAD risk occurs at ratios above 5 for females and above 6 for men. ? [place] Heart Association ??(http://www.americanheart.org) ? [place] Int Med, 1994; 121:641 ? AM J Med, 1998; 105(1A):48S Fasting? Not Indicated RACHEL DOMINGUEZ Blood specimen (specimen) 11/13/2010 7:14 AM EST 11/13/2010 7:32 AM EST Kevyn Abdi MD CHEMISTRY ORDERABLE S RACHEL DOMINGUEZ * CREATININE, SERUM (11/13/2010 7:14 AM EST) Creatinine 1.03 0.80 - 1.50 mg/dL CERNER MILLENNIUM Est Glomerular Filtration Rate >60 >=60 [facility] e(ye)[facility]IN[facility]UM Comment: The National Kidney Disease Education Program (NKDEP) has recommended all laboratories report estimated GFR (eGFR) along with plasma creatinine measurements to assist you with recognition of early kidney disease. Caveats: ??Plasma creatinine should be at steady-state (unchanged within the past week). ??Patient age > = 18 years, and for Americans multiply eGFR by 1.2. At present, NKDEP does NOT recommend using the MDRD equation for drug dosing purposes and pharmacists should continue to use their current dosing methods. In addition, numerical eGFR values greater than 60 ml/min/1.73 square meters should be treated as > 60, and not an exact number due to greater inaccuracies at these higher values. Per NKDEP, they classify normal renal function as any GFR >60ml/min/1.73 square meters; chronic kidney disease when GFR <60, and renal failure when GFR <15. ??This calculation may not be valid for patients with atypical muscle mass (very lean or obese), acute renal failure, and in patients with diabetic kidney disease. References: http://nkdep.nih.gov/resources/NKDEP_Suggestn4Labs_0606_508.pdf http://www.kidney.org/professionals/kls/pdf/faq_gfr.pdf Blood specimen (specimen) 11/13/2010 7:14 AM EST 11/13/2010 7:32 AM EST Kevyn Abdi MD CHEMISTRY ORDERABLE S Performing Organization Address [facility] de Phone Number [facility] * BUN (11/13/2010 7:14 AM EST) Blood Urea Nitrogen 10 10 - 20 mg/dL [facility] Blood specimen (specimen) 11/13/2010 7:14 AM EST 11/13/2010 7:32 AM EST Kevyn Abdi MD CHEMISTRY ORDERABLE S Performing Organization Address [facility] Phone Number [facility] * (ABNORMAL) GLUCOSE, FASTING (11/13/2010 7:14 AM EST) Glucose Fasting 100(H) 65 - 99 mg/dL [facility] Comment: ?Fasting* Glucose Interpretive Criteria Normal ?65-99 [...] of Diabetes Mellitus, Position Statement from the [place] Diabetes Association. ??Diabetes Care, Volume 33, Supplement 1, Nov 2009 Blood specimen (specimen) 11/13/2010 7:14 AM EST 11/13/2010 7:32 AM EST Kevyn Abdi MD CHEMISTRY ORDERABLE S Performing Organization Address [facility] de Phone Number [facility] * (ABNORMAL) HEPATIC FUNCTION PANEL (11/13/2010 7:14 AM EST) Protein, Total 6.9 6.4 - 8.3 gm/dL CERNER MILLENNIUM Albumin 3.9 3.2 - 5.2 gm/dL CERNER MILLENNIUM Aspartate Aminotransferase 37 0 - 39 unit/L CERNER MILLENNIUM Alanine Aminotransferase 72(H) 0 - 55 unit/L CERNER MILLENNIUM Alkaline Phosphatase 57 40 - 120 unit/L CERNER MILLENNIUM Bilirubin, Total 0.5 0.2 - 1.3 mg/dL CERNER MILLENNIUM Bilirubin, Direct 0.1 0.0 - 0.3 mg/dL CERNER MILLENNIUM Blood specimen (specimen) 11/13/2010 7:14 AM EST 11/13/2010 7:32 AM EST Kevyn Abdi MD CHEMISTRY ORDERABLE S Performing Organization Address [facility] de Phone Number CERDELLA SALASENNIUM * ELECTROLYTE PANEL (11/13/2010 7:14 AM EST) Sodium 137 135 - 145 mmol/L CERNER MILLENNIUM Potassium 4.0 3.5 - 5.0 mmol/L CERNER MILLENNIUM Comment: Please note: ??Patients with WBC >100,000 may have falsely elevated Potassium levels. ??For accurate Potassium quantification in these patients send serum separator tube (gold top) for subsequent determinations. ??Contact the Clinical Chemistry Laboratory if there are any questions. Chloride 103 98 - 107 mmol/L CERNER MILLENNIUM Carbon Dioxide 25 22 - 31 mmol/L CERNER MILLENNIUM Anion Gap 9 5 - 15 mmol/L CERNER MILLENNIUM Blood specimen (specimen) 11/13/2010 7:14 AM EST 11/13/2010 7:32 AM EST Kevyn Abdi MD CHEMISTRY ORDERABLE S Performing Organization Address [facility] de Phone Number CERDELLA WATSONIUM * REFLEX LAB-A-DIFF (11/13/2010 7:14 AM EST) Neutrophil % 58.6 34.0 - 71.0 % CERNER MILLENNIUM Neutrophil Absolute 3.33 1.50 - 6.30 x10(3)/mcL CERNER MILLENNIUM Lymph % 29.2 19.0 - 53.0 % CERNER MILLENNIUM Lymphocytes Abs 1.7 1.0 - 3.6 x10(3)/mcL CERNER MILLENNIUM Monocyte % 10.2 4.0 - 13.0 % CERNER MILLENNIUM Monocyte Abs 0.6 0.2 - 1.0 x10(3)/mcL CERNER MILLENNIUM Eos % 1.4 0.0 - 7.0 % CERNER MILLENNIUM Eosinophils Abs 0.1 0.0 - 0.5 x10(3)/mcL CERNER MILLENNIUM Basophil % 0.4 0.0 - 2.0 % CERNER MILLENNIUM Baso Absolute 0.0 0.0 - 0.2 x10(3)/mcL CERNER MILLENNIUM Immature Gran % 0.20 0.00 - 0.66 % CERNER MILLENNIUM Comment: Immature granulocytes(IG's)percentage and absolute count will include metamyelocytes, myelocytes, and promyelocytes. Blood smears from CBCs yielding IG's will be scanned manually for concordance. If this scan disagrees with the automated IG or if promyelocytes are noted, a manual differential will be performed.v Immature Gran Absolute 0.01 0.00 - 0.05 x10(3)/mcL CERNER MILLENNIUM Blood specimen (specimen) 11/13/2010 7:14 AM EST 11/13/2010 7:32 AM EST Kevyn Abdi MD HEMATOLOGY ORDERABL ES CERDELLA SALASENNIUM * (ABNORMAL) CBC (11/13/2010 7:14 AM EST) White Blood Cell 5.7 4.0 - 10.0 x10(3)/mc L CERNER MILLENNIUM Red Blood Cell 4.76 4.63 - 6.08 x10(6)/mc L CERNER MILLENNIUM Hemoglobin 15.4 13.7 - 17.5 gm/dL CERNER MILLENNIUM Hematocrit 45.7 40.0 - 51.0 % CERNER MILLENNIUM Mean Cell Volume 96.0(H) 79.0 - 92.0 fL CERNER MILLENNIUM Mean Cell Hemoglobin 32.4(H) 25.6 - 32.2 pg CERNER MILLENNIUM Mean Cell Hemoglobin Concentration 33.7 32.0 - 36.5 gm/dL CERNER MILLENNIUM Platelet 173 145 - 370 x10(3)/mc L CERNER MILLENNIUM RDW Standard Deviation 48.3(H) 35.0 - 46.0 fL CERNER MILLENNIUM RDW coefficient of variation 13.8 10.9 - 14.4 % CERNER MILLENNIUM Mean Platelet Volume 10.2 9.0 - 12.0 fL CERNER MILLENNIUM Blood specimen (specimen) 11/13/2010 7:14 AM EST 11/13/2010 7:32 AM EST Kevyn Abdi MD HEMATOLOGY ORDERABL ES RACHEL WATSONIUM * (ABNORMAL) CARDIAC ENZYME PANEL (11/12/2010 11:00 PM EST) Troponin-T 0.08(H) <=0.03 ng/mL CERNER MILLENNIUM Comment: 0.03 ng/mL: ??Represents the 99th percentile upper reference limit for normals >0.03 ng/mL: ??Elevated cardiac troponin T level indicative of myocardial damage Diagnosis of acute, evolving or recent MN requires a typical rise and gradual fall of cTnT with at least ONE of the following: a) ??Ischemic symptoms b) ??Development of pathologic Q waves on the ECG c) ??ECG changes indicative of ischemia (S-T segment elevation/depression) d) ??Coronary artery intervention Serial bloods should be obtained for testing on admission, at 6-9h and again at 12-24h if earlier samples are negative and the clinical index of suspicion is high. Reference [Myocardial infarction redefined a consensus document of the Joint Society of Cardiology/[place] College of Cardiology Committee for the redefinition of myocardial infarction. Journal of the [place] College of Cardiology 2000; 36: 959-969] Creatine Kinase 100 0 - 200 unit/L CERNER MILLENNIUM Blood specimen (specimen) 11/12/2010 11:00 PM EST 11/12/2010 11:25 PM EST Kevyn Abdi MD CHEMISTRY ORDERABLE S Performing Organization Address [facility] Co de Phone Number RACHEL SALASGetyooIUM * ELECTROLYTE PANEL (11/12/2010 3:05 PM EST) Sodium 138 135 - 145 mmol/L CERNER MILLENNIUM Potassium 3.9 3.5 - 5.0 mmol/L CERNER MILLENNIUM Comment: Please note: ??Patients with WBC >100,000 may have falsely elevated Potassium levels. ??For accurate Potassium quantification in these patients send serum separator tube (gold top) for subsequent determinations. ??Contact the Clinical Chemistry Laboratory if there are any questions. Chloride 103 98 - 107 mmol/L CERNER MILLENNIUM Carbon Dioxide 25 22 - 31 mmol/L CERNER MILLENNIUM Anion Gap 10 5 - 15 mmol/L CERNER MILLENNIUM Blood specimen (specimen) 11/12/2010 3:05 PM EST 11/12/2010 3:26 PM EST Kevyn Abdi MD CHEMISTRY ORDERABLE S Performing Organization Address [facility] de Phone Number RACHEL WATSONIUM * CREATININE, SERUM (11/12/2010 3:05 PM EST) Creatinine 0.97 0.80 - 1.50 mg/dL CERNER MILLENNIUM Est Glomerular Filtration Rate >60 >=60 CERNER MILLENNIUM Comment: The National Kidney Disease Education Program (NKDEP) has recommended all laboratories report estimated GFR (eGFR) along with plasma creatinine measurements to assist you with recognition of early kidney disease. Caveats: ??Plasma creatinine should be at steady-state (unchanged within the past week). ??Patient age > = 18 years, and for Americans multiply eGFR by 1.2. At present, NKDEP does NOT recommend using the MDRD equation for drug dosing purposes and pharmacists should continue to use their current dosing methods. In addition, numerical eGFR values greater than 60 ml/min/1.73 square meters should be treated as > 60, and not an exact number due to greater inaccuracies at these higher values. Per NKDEP, they classify normal renal function as any GFR >60ml/min/1.73 square meters; chronic kidney disease when GFR <60, and renal failure when GFR <15. ??This calculation may not be valid for patients with atypical muscle mass (very lean or obese), acute renal failure, and in patients with diabetic kidney disease. References: http://nkdep.nih.gov/resources/NKDEP_Suggestn4Labs_0606_508.pdf http://www.kidney.org/professionals/kls/pdf/faq_gfr.pdf Blood specimen (specimen) 11/12/2010 3:05 PM EST 11/12/2010 3:26 PM EST Kevyn Abdi MD CHEMISTRY ORDERABLE S Performing Organization Address [facility] de Phone Number RACHEL [employer] * BUN (11/12/2010 3:05 PM EST) Blood Urea Nitrogen 11 10 - 20 mg/dL [facility] Blood specimen (specimen) 11/12/2010 3:05 PM EST 11/12/2010 3:26 PM EST Kevyn Abdi MD CHEMISTRY fring LtdABLE S Performing Organization Address [facility] de Phone Number [facility] * (ABNORMAL) CARDIAC ENZYME PANEL (11/12/2010 3:05 PM EST) Troponin-T 0.07(H) <=0.03 ng/mL [facility] Comment: 0.03 ng/mL: ??Represents the 99th percentile upper reference limit for normals >0.03 ng/mL: ??Elevated cardiac troponin T level indicative of myocardial damage Diagnosis of acute, evolving or recent MN requires a typical rise and gradual fall of cTnT with at least ONE of the following: a) ??Ischemic symptoms b) ??Development of pathologic Q waves on the ECG c) ??ECG changes indicative of ischemia (S-T segment elevation/depression) d) ??Coronary artery intervention Serial bloods should be obtained for testing on admission, at 6-9h and again at 12-24h if earlier samples are negative and the clinical index of suspicion is high. Reference [Myocardial infarction redefined a consensus document of the Joint Society of Cardiology/[place] College of Cardiology Committee for the redefinition of myocardial infarction. Journal of the [place] College of Cardiology 2000; 36: 959-969] Creatine Kinase 127 0 - 200 unit/L [facility] Blood specimen (specimen) 11/12/2010 3:05 PM EST 11/12/2010 3:26 PM EST Kevyn Abdi MD CHEMISTRY ORDERABLE S Performing Organization Address [facility] Phone Number [facility] * APTT (11/12/2010 3:05 PM EST) Partial Thromboplastin Time 31 25 - 37 sec [facility] Comment: Recommended therapeutic PTT range for full dose unfractionated heparin is 80-114 seconds. Blood specimen (specimen) 11/12/2010 3:05 PM EST 11/12/2010 3:27 PM EST Kevyn Abdi MD HEMATOLOGY ORDERABL ES Performing Organization Address [facility] Phone Number [facility] * PROTIME-INR (11/12/2010 3:05 PM EST) Prothrombin Time 13.8 12.3 - 14.7 sec [facility] Comment: [facility] Transfusion Committee Guidelines: INR less than 2.0, PTT less than OR equal to 43.5 seconds, or Fibrinogen greater than or equal to 100 mg/dl indicate adequate procoagulant activity for hemostasis in patients without underlying bleeding disorders. International Normalization Ratio 1.0 0.9 - 1.1 [facility] Blood specimen (specimen) 11/12/2010 3:05 PM EST 11/12/2010 3:27 PM EST Kevyn Abdi MD HEMATOLOGY ORDERABL ES Performing Organization Address [facility] Phone Number [facility] * REFLEX LAB-A-DIFF (11/12/2010 3:05 PM EST) Neutrophil % 49.4 34.0 - 71.0 % CERNER MILLENNIUM Neutrophil Absolute 2.36 1.50 - 6.30 x10(3)/mcL CERNER MILLENNIUM Lymph % 38.4 19.0 - 53.0 % CERNER MILLENNIUM Lymphocytes Abs 1.8 1.0 - 3.6 x10(3)/mcL CERNER MILLENNIUM Monocyte % 10.3 4.0 - 13.0 % CERNER MILLENNIUM Monocyte Abs 0.5 0.2 - 1.0 x10(3)/mcL CERNER MILLENNIUM Eos % 1.3 0.0 - 7.0 % CERNER MILLENNIUM Eosinophils Abs 0.1 0.0 - 0.5 x10(3)/mcL CERNER MILLENNIUM Basophil % 0.4 0.0 - 2.0 % CERNER MILLENNIUM Baso Absolute 0.0 0.0 - 0.2 x10(3)/mcL CERNER MILLENNIUM Immature Gran % 0.20 0.00 - 0.66 % CERNER MILLENNIUM Comment: Immature granulocytes(IG's)percentage and absolute count will include metamyelocytes, myelocytes, and promyelocytes. Blood smears from CBCs yielding IG's will be scanned manually for concordance. If this scan disagrees with the automated IG or if promyelocytes are noted, a manual differential will be performed.v Immature Gran Absolute 0.01 0.00 - 0.05 x10(3)/mcL CERNER MILLENNIUM Blood specimen (specimen) 11/12/2010 3:05 PM EST 11/12/2010 3:26 PM EST Kevyn Abdi MD HEMATOLOGY ORDERABL ES CERNER MILLENNIUM * (ABNORMAL) CBC (11/12/2010 3:05 PM EST) White Blood Cell 4.8 4.0 - 10.0 x10(3)/mc L CERNER MILLENNIUM Red Blood Cell 4.97 4.63 - 6.08 x10(6)/mc L CERNER MILLENNIUM Hemoglobin 15.8 13.7 - 17.5 gm/dL CERNER MILLENNIUM Hematocrit 47.3 40.0 - 51.0 % CERNER MILLENNIUM Mean Cell Volume 95.2(H) 79.0 - 92.0 fL CERNER MILLENNIUM Mean Cell Hemoglobin 31.8 25.6 - 32.2 pg CERNER MILLENNIUM Mean Cell Hemoglobin Concentration 33.4 32.0 - 36.5 gm/dL CERNER MILLENNIUM Platelet 185 145 - 370 x10(3)/mc L CERNER MILLENNIUM RDW Standard Deviation 47.5(H) 35.0 - 46.0 fL CERNER MILLENNIUM RDW coefficient of variation 13.8 10.9 - 14.4 % CERNER MILLENNIUM Mean Platelet Volume 10.3 9.0 - 12.0 fL CERNER MILLENNIUM Blood specimen (specimen) 11/12/2010 3:05 PM EST 11/12/2010 3:26 PM EST Kevyn Abdi MD HEMATOLOGY ORDERABL ES [facility] documented in this encounter Visit Diagnoses Not on filedocumented in this encounter Care Teams Clay Preparation Supervisor Relationship Specialty Start Date End Date Vel Santos MD [address] [place] [phone] PCP - General 09/24/10 06/04/23 documented as of this encounter
--- OUTSIDE RECORDS SUMMARY | 2024-07-19 22:18 | XMS_ITS | Encounter Summary ---
Author Organization [facility] Address [facility] [place] [address] Care Team Providers Care Director Of Math Name Role Phone Vel Santos MD Primary Care Provider [phone] Reason for Visit * Reason Comments Skin Check Encounter Details Date Type Department Care Team (Late st Contact Info) Description 05/09/2013 11:00 AM EDT Office Visit Dermatology at [facility] [address] [place] [address] Roberta Fam MD [facility] [place] [address] BCC (basal cell carcinoma of skin) (Primary Dx); Seborrheic keratosis Discharge Disposition: Home Social History Tobacco Use Types Packs/Day Years Used Date Smoking Tobacco: Former Sex and Gender Information Value Date Recorded Sex Assigned at Not on file Gender Identity Not on file Sexual Orientation Not on file documented as of this encounter Progress Notes * Roberta Fam MD - 05/09/2013 11:18 AM EDT Gloria Garcia [id number] 05/09/2013 Chief Problem Complaint: 1. Skin cancer and pigmented lesion exam 2. History of dysplastic nevus 3. History of SCC diagnosed and treated at outside facility History: 63 y.o. year old male Considered new patient although I have seen him in the past , last time 2008. Discussed concerns below. - Lesions on nose , brown spots - Right collarbone irritated growth Review of systems: CIPD Chronic inflammatory peripheral dymelination Current Outpatient Prescriptions on File Prior to Visit Medication Sig Dispense Refill ??? Gabapentin, Bulk, 100 % Powd by [facility].(Non-Drug; Combo Route) route 3 times daily. Cleo 10%,amit5%,toy 10% apply tid to toes 60 g prn ??? UNABLE TO FIND Apply topically. Med Name: cleo 10% linwood 10 % toy 10 % 2-3 times per day to toes 60 g PRN ??? CIS Free Text Med - topical comopounding for toes ??? CIS Free Text Med - calcium citrate w/ D, Mg and kathy ??? CIS Free Text Med - immunoglobulin ??? testosterone enanthate (DELATESTRYL) 200 mg/mL injection ??? folic acid (FOLVITE) 400 mcg tablet ??? ascorbic acid (VITAMIN C) 1,000 mg tablet ??? VITAMIN E ACETATE (VITAMIN E ORAL) ??? Howell-3 Fatty Acids-Vitamin E (OMEGA-3 FISH OIL) 1,000-5 mg-unit Cap ??? aspirin 325 mg tablet ??? pantoprazole (PROTONIX) 20 mg tablet 20 MG = 1 Tablet(s), PO, Once daily ??? clopidogrel (PLAVIX) 75 mg tablet 75 MG = 1 Tablet(s), PO, Once daily ??? nitroGLYcerin (NITROSTAT) 0.4 mg SL tablet 0.4 MG = 1 Tablet(s), Sublingual, prn ??? atorvastatin (LIPITOR) 40 mg tablet 40 MG = 1 Tablet(s), PO, Once daily ??? ALPHA LIPOIC ACID ORAL ??? CHOLECALCIFEROL, VITAMIN D3, (VITAMIN D-3 ORAL) ??? metoprolol succinate (TOPROL-XL) 100 mg XL tablet 100 MG = 1 Tablet(s), PO, Once daily ??? lisinopril (PRINIVIL;ZESTRIL) 5 mg tablet 5 MG = 1 Tablet(s), PO, Once daily Cis free text allergy; Cis free text allergy; Sulfa (sulfonamide antibiotics); Hydroxychloroquine sulfate; and Nsaids (non-steroidal anti-inflammatory drug) Examination: Patient was alert and in no noticeable distress. A skin examination was performed. This includes the head, neck, face and scalp including behind the ears. The chest, abdomen and back, as well as the arms, hands, palms, fingers; legs, feet, toes and soles were also examined. Specific findings: 1. Left scapula, 0.3cm pearly pink papule 2. Seborrheic keratosis right clavicle Diagnosis/Assessment: 1. BCC, back 2. Seborrheic keratosis Treatment and Plan: Discussion Specifically discussed: - Biopsy and completely destroy lesion on back Procedure: 1.Procedure: Destruction of lesion. BCC 3 mm. Site: left back Discussed indications and expectations including risks and benefits. Verbal consent obtained. Skin prep. Local anesthesia: buffered 1% lidocaine with epinephrine. The entire lesion plus a small margin was treated by curettage and electrod esiccation Post-curettage defects back. No complications. Wound dressed. Expectations (including discomfort management) and wound care reviewed. 2. LN2 x 2 to seborrheic keratosis #1 Follow up Plan: one year and PRN I Ashley Cedeño RN am documenting this encounter acting as the scribe for and in the presence of Sherry Fam MD. I performed the above scribed service and agree with the accuracy of the documentation in this encounter documented in this encounter Plan of Treatment Upcoming Encounters Date Type Department Care Team (Late st Contact Info) Description 08/09/2024 10:30 AM EDT Hospital En[place] [address] Navi Montero MD [facility] [place] [address] 08/09/2024 10:30 AM EDT - 08/09/2024 11:15 AM EDT Surgery [place] [address] Navi Montero MD [facility] [place] [address] COLONOSCOPY,SCREENI NG (WRVU 3.26) Scheduled Procedures Name Priority Associated Diagnoses Date/Ti me COLONOSCOPY,SCREENING (WRVU 3.26) polyps 08/09/2024 10:30 AM EDT documented as of this encounter Procedures Procedure Name Priority Date/Time Associated Diagnosis Comments SURGICAL PATHOLOGY REPORT Routine 05/09/2013 11:48 AM EDT SPECIMEN TO PATHOLOGY Routine 05/09/2013 11:48 AM EDT BCC (basal cell carcinoma of skin) documented in this encounter Results * Surgical Pathology Report (05/09/2013 11:48 AM EDT) Surgical Pathology Report ? [facility] ? Provider: ?? ROBERTA FAM ?Pt. Name: ?? GLORIA GARCIA ?ILDA ? Acc #: ?[id number] ? Pt. ? Col Date: ?? 05/09/2013 ?/Sex: ?1950,(63 years),Male ? Rec Date: ?? 05/09/2013 ?LOC: ?[facility] ? SURGICAL PATHOLOGY ? ---Pathologic Diagnosis--- ? Skin, left back, shave biopsy ED&C: ? Basal cell carcinoma, nodular type, focally pigmented. ? CR-0 ? 05/10/13 ? VMS ? 05/10/13 Verified by: ? Vern CONNOLLY, PhD, Brenda ? Dermatopathologist ? (Electronic Signature) ? The attending pathologist whose signature appears on this report has ? reviewed all diagnostic slides and has edited the gross and/or ? microscopic portion of the report in rendering the final pathologic ? diagnosis. ? ---Gross Description--- ? A - Labeled/Fixative: Patient demographics, formalin. ? Quantity/Size: Single, 0.5 x 0.4 x 0.1 cm. ? Tissue Description: Shave of granular, conde-castro skin. ? Sections/Processing: Inked and bisected. (T1) ??pps ? ---Clinical Information--- ? Specimen Submitted: ? A - Skin, left back, shave biopsy ED&C (1) ? Clinical History: ? [place] pearly papule, 0.3 cm ? Clinical Diagnosis: ? Pearly papule, BCC RACHEL DOMINGUEZ 05/09/2013 11:4 8 AM EDT Roberta Fam MD PATHOLOGY/CYTOL OGY ORDERABLES Performing Organization Address [facility] Co de Phone Number RACHEL JOSUEHAYDENGAGANDEEP * Specimen to Pathology (surgical or derm) (05/09/2013 11:48 AM EDT) AP Specimen 05/09/2013 11:4 8 AM EDT 05/09/2013 11:48 AM EDT Narrative RACHEL WATSONIUM - 05/09/2013 11:48 AM EDT Specimen requisition ordered. ??Separate Pathology report to follow Roberta Fam MD PATHOLOGY/CYTOL OGGonzalo ORDERABLES RACHEL JOSUELYNDSEY documented in this encounter Visit Diagnoses Diagnosis BCC (basal cell carcinoma of skin)- Primary Basal cell carcinoma of skin, site unspecified Seborrheic keratosis Other seborrheic keratosis documented in this encounter Care Teams Director Of Math Relationship Specialty Start Date End Date Vel Santos MD [address] [address] PCP - General 09/24/10 06/04/23 documented as of this encounter
--- OUTSIDE RECORDS SUMMARY | 2024-07-19 22:18 | XMS_ITS | Encounter Summary ---
Author Organization [facility] Address [facility] [place] [address] Care Team Providers Care First Crusher Name Role Phone Marco Aleman MD Primary Care Provider [phone] Encounter Details Date Type Department Care Team (Late st Contact Info) Description 04/05/2009 Orders Only Dermatology at [facility] [address] [place] [address] Ernst Robertson MD [facility] [address] [place] [address] Social History Tobacco Use Types Packs/Day Years [...] 10:30 AM EDT Hospital [place] [id number] Navi Montero MD [facility] [place] [address] 08/09/2024 10:30 AM EDT - 08/09/2024 11:15 AM EDT [place] [phone] Navi Montero MD [facility] [place] [address] COLONOSCOPY,SCREENI NG (WRVU 3.26) Scheduled Procedures Name Priority Associated Diagnoses Date/Ti me COLONOSCOPY,SCREENING (WRVU 3.26) polyps 08/09/2024 10:30 AM EDT documented as of this encounter Procedures Procedure Name Priority Date/Time Associated Diagnosis Comments SURGICAL PATHOLOGY REPORT Routine 04/05/2009 3:50 PM EDT documented in this encounter Results * Surgical Pathology Report (04/05/2009 3:50 PM EDT) Surgical Pathology Report [id number] ? Location: 4M The signing pathologist has (i) examined the relevant preparation(s) for the specimen(s) and (ii) rendered or confirmed the diagnosis(es). . ?Pathology Surgical Pathology Final Report Clinical Information Specimen Submitted: A - Right cheek, Shave removal (1): Clinical History: 0.6-cm pink papule Clinical Diagnosis: IDN vs sebaceous hyperplasia Comment: ??Elevated papule at cheek, consistently irritated by shaving, bleeds, changing Gross Description Labeled/Fixative : ? Labeled with the patient's name, formalin. Qty/Size/Weight: ?Single shave, 0.5 cm, of centrally nodular, ?yellow-conde skin. Sections/Process ing: ??Bisected. ??(T1) aje/EJR Microscopic Description Slides reviewed, microscopic description not recorded. Diagnosis Right cheek, shave biopsy: ?? Prominent sebaceous glands consistent with sebaceous hyperplasia. CR-0 04/06/09 VMS 04/06/09 Verified by: ? Cory Cheng MD ?Dermatopatholo gist ?(Electronic Signature) The attending pathologist whose signature appears on this report has reviewed all diagnostic slides and has edited the gross and/or microscopic portion of the report in rendering the final pathologic diagnosis. RACHEL DOMINGUEZ 04/05/2009 3:50 PM EDT Ernst Robertson MD PATHOLOGY/CYTOL OGY ORDERABLES R[facility]SONFORMERLY [facility] documented in this encounter Visit Diagnoses Not on filedocumented in this encounter Care Teams First Crusher Relationship Specialty Start Date End Date Marco Aleman MD [address] [place] [address] PCP - General Family Medicine 06/05/23 documented as of this encounter
--- OUTSIDE RECORDS SUMMARY | 2024-07-19 22:18 | XMS_ITS | Encounter Summary ---
Author Organization [facility] [place] [address] Care Team Providers Care Forestry Technical Officer Name Role Phone Vel Santos MD Primary Care Provider [phone] Reason for Visit * Reason Comments Skin Check Encounter Details Date Type Department Care Team (Late st Contact Info) Description 10/01/2016 11:00 AM EST Office Visit Dermatology at [facility] [address] [place] [address] Rl Martinez MD [address] [facility] [place] [address] Filiform wart (Primary Dx); AK (actinic keratosis); Neoplasm of uncertain behavior of skin of nose; Seborrheic keratoses, inflamed; History of nonmelanoma skin cancer; SK (seborrheic keratosis); Dorsey angioma; Sun-damaged skin Social History Tobacco Use Types Packs/Day [...] as of this encounter Progress Notes * Rl Martinez MD - 10/01/2016 11:00 AM EST This is a high risk patient who returns for re-evaluation of recurrence of skin cancer and development of new skin cancers. Chief Complaint: lesion History of Present Illness Roland Vega is a 66 y.o. male. History of skin cancer who complains of an irritated pink papule on the left alar rim that was first identified within the past year. Mildly tender. No bleeding. Never treated or biopsied. Also, concerned about a discoloration on the left side of his nose that he noticed in the last month. No symptoms. No changes. No bleeding. Never been treated or biopsied. Requests full body skin cancer screening. Interval changes to Medications and Medical, Family and Social Histories (including alcohol and tobacco use) Since Last Visit 08/10/15: No significant interval history. Skin Cancer History Left back, Basal cell carcinoma s/p ED&C May 2013 Abdomen, Basal Cell Carcinoma - excised around 1999 Allergies Allergies Allergen Reactions ??? Cis Free Text Allergy Swordfish. CIS - Anaphylaxis ??? Cis Free Text Allergy Swordfish. CIS - Anaphylaxis ??? Sulfa (Sulfonamide Antibiotics) CIS - Anaphylaxis, CIS - Anaphylaxis, CIS - Anaphylaxis ??? Hydroxychloroquine Sulfate CIS - visual changes, CIS - visual changes ??? Nsaids (Non-Steroidal Anti-Inflammatory Drug) CIS - swelling, CIS - swelling Medications ??? nystatin (MYCOSTATIN) Cream ??? aspirin 325 mg Tablet ??? Acetylcarnitine 500 mg Capsule ??? buPROPion (BUPROBAN) 150 mg Tablet Sustained Release ??? loratadine (CLARITIN) 10 mg Tablet ??? omeprazole (PRILOSEC) 20 mg Capsule, Delayed Release(E.C.) ??? coQ10, ubiquinol, 100 mg Capsule ??? testosterone enanthate (DELATESTRYL) 200 mg/mL Oil ??? diaZEPam (VALIUM) 5 mg Tablet ??? ketoconazole (NIZORAL) 2 % Shampoo ??? [place]-3 Fatty Acids-Vitamin E (OMEGA-3 FISH OIL) 1,000-5 mg-unit Cap ??? nitroGLYcerin (NITROSTAT) 0.4 mg SL tablet ??? atorvastatin (LIPITOR) 40 mg tablet ??? metoprolol succinate (TOPROL-XL) 100 mg XL tablet ??? 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 Examination Standby: Brandy Jensen, Clinical Scribe Mood is appropriate and congruent with effect. Well developed, well-nourished in no apparent distress, alert and oriented to time, person, place and situation. Patient was asked to disrobe to the level of comfort. Examination of the head - including the scalp, face, ears, nose, lips, neck, chest, abdomen, back, axillae, buttocks, upper and lower extremities, including the nail plates, significant for the following: ?? 2 mm verrucous pink papule on the left alar rim ?? 2 mm subtle hyperpigmented macule with no pigment pattern on the left nasal sidewall [place], hyperkeratotic slightly irregular papules on the left vertex scalp x 3, mid left helix x 1 [Total AKs: 4] Multiple, stuck-on, well-demarcated, conde or brown, waxy or warty papules on the head, trunk, and extremities Multiple, dorsey red 1-4mm papules on the trunk Stuck-on, well-demarcated, pink warty papules or plaques on pink bases or eroded on the left upper axillae and chest Moderate sun-damage on sun-exposed areas including irregular conde macules on sun- exposed areas and epidermal thinning with dyspigmentation and/or telangectia sun-exposed areas of the neck, chest 6 - 8 cm lichenified light brown thin plaque on the right knee and less prominently on the left knee ?? Multiple 1-4mm pedunculated, soft papules in the axillae and right and left inguinal folds ?? No evidence of recurrence in scars on the left back and abdomen Assessment and Plan Actinic Keratoses Counseled: AKs, risk for progression to SCCs, and treatment options, including observation, cryotherapy, topicals, and PDT. Answered all questions. Handout given. Total 4 treated with cryotherapy, 1 cycle at 4-5 seconds for each, after verbally discussing the disease and treatment options, cryotherapy method, expected results/course and potential adverse effects, including crusting, persistent erythema, scar, blister, pain, dyspigmentation, and recurrence. Steven schaffer verbally agreed. Patient tolerated well with no complications. Wound care instructions provided. If no resolution in 14d or if scaling recurs after initial resolution, may contact clinic for re-evaluation and management. Wart, left alar rim Symptomatic. Favor wart over ISK or SCC. Counseled: warts, types, etiology, prognosis long and serial treatments, and treatment options (including their risks and benefits) Answered all questions. Patient elected to treat with cryotherapy today ? Total 1 treated with cryotherapy, 2 cycles at 4 seconds each cycle with 25-60 seconds thaw interval for each, after verbally discussing the disease and treatment options, cryotherapy method, expected results/course and potential adverse effects, including crusting, persistent erythema, scar, blister, pain, dyspigmentation, and recurrence. Patient verbally agreed. Patient tolerated well with nocomplications. Wound care instructions provided. ?? If not resolved in 3 weeks, RTC for biopsy ?? Neoplasm of Uncertain Behavior, Left nasal sidewall Subtle discoloration that can be seen in certain light but no pigment pattern and no features of pigmented BCC, SCC or AK. No h/o trauma to suggest tattoo. Recommend observation at this time. Return to clinic prn for changes in color, size, shape or thickness or should bleeding or other symptoms occur. Patient agrees to plan. Sebaceous Gland Hyperplasia, nose Counseled: benign growths of sebaceous glands (hair follicle unit), rare risk of sebaceous carcinoma. Answered all questions. Patient declines treatment at this time. ?? Return to clinic, if bleeds, enlarges, or becomes symptomatic. Consider shave biopsy. Inflamed Seborrheic Keratosis, Chest and left axilla Benign. Inflamed. Counseled: ISKs and SKs, benign, treatment options for symptomatic lesions. Answered all questions.Patient declined treatment. Dorsey Angiomas Counseled: dorsey angiomas. Benign. No treatment necessary unless symptoms develop. Treatment considered cosmetic and [id number]. Treatment options, including but not limited to electrocautery, discussed. Handout given. Skin Tags, axillae and inguinal folds Asymptomatic. Incidental finding today. Counseled: skin tags, benign, a/w age, obesity and diabetes and sites of friction, and treatment options for symptomatic lesions, including but not limited to OTC products, shave or scissor removal, cryotherapy, electrocautery, laser. Answered all questions. Patient elects not to treat today. Solar Damage Benign but evidence of moderate chronic sun damage. Counseled: risks for skin cancer, thinning of skin. Recommend sun protection. Answered all questions. History of BCCs, left back and abdomen No evidence of recurrences Patient Counseling (Skin Cancer) Counseled: Counseled: sun protection, self skin exams, provider skin exams every 12 months, and theABCDEs of melanoma/NMSC (handout given). Answered all questions. Follow-up: Skin cancer screening in 12 months or return to clinic prn for new suspicious lesions orif changes/symptoms in existing lesions develop. Note initiated by DAWNA SILVA, Clinical Scribehas performed the documentation for this encounter in the presence of and acting as a scribe for Dr. Martinez. I performed the above scribed service and agree with the accuracy of the documentation in this encounter. Rl Martinez MD [facility] Section of Dermatology [facility] documented in this encounter Plan of Treatment Upcoming Encounters Date Type Department Care Team (Late st Contact Info) Description 08/09/2024 10:30 AM EDT Hospital En[place] [address] Navi Montero MD [facility] [place] [address] 08/09/2024 10:30 AM EDT - 08/09/2024 11:15 AM EDT [place] [address] Navi Montero MD [facility] [place] [address] COLONOSCOPY,SCREENI NG (WRVU 3.26) Scheduled Procedures Name Priority Associated Diagnoses Date/Ti me COLONOSCOPY,SCREENING (WRVU 3.26) polyps 08/09/2024 10:30 AM EDT documented as of this encounter Visit Diagnoses Diagnosis Filiform wart- Primary Other specified viral warts AK (actinic keratosis) Actinic keratosis Neoplasm of uncertain behavior of skin of nose Neoplasm of uncertain behavior of skin Seborrheic keratoses, inflamed History of nonmelanoma skin cancer Personal history of other malignant neoplasm of skin SK (seborrheic keratosis) Other seborrheic keratosis Dorsey angioma Nevus, non-neoplastic Sun-damaged skin Other chronic dermatitis due to solar radiation documented in this encounter Care Teams Forestry Technical Officer Relationship Specialty Start Date End Date Vel Santos MD [address] [place] [phone] PCP - General 09/24/10 06/04/23 documented as of this encounter
--- OUTSIDE RECORDS SUMMARY | 2024-07-19 22:18 | XMS_ITS | Encounter Summary ---
Author Organization [facility]ly [facility], Later [facility] [place] [address] Care Team Providers Care Medical Technologist Prn Name Role Phone Vel Santos MD Primary Care Provider [phone] Encounter Details Date Type Department Care Team (Latest Contact Info) Description 03/08/2014 7:03 AM EDT - 03/08/2014 11:50 AM EDT Hospital Encounter [place] [address] Brandy Dickerson MD [facility] [place] [address] Discharge Disposition: Home Social History Tobacco Use [...] - 03/08/2014 10:32 AM EDT Please call [phone], before 5pm with problems, questions or concerns, after 5pm call the Hospital at [phone] and ask to speak to the Communications Controller concession attendant and the scouring machine operator will contactthat person for you. Discharge [...] through Care Everywhere. * COLONOSCOPY : POSTOP (MOLDOVAN) documented in this encounter Medications at Time of Discharge Medication Sig Dispensed Refills Start Date End Date nitroGLYcerin (NITROSTAT) 0.4 mg SL tablet 0.4 MG = 1 Tablet(s), Sublingual, prn 11/13/2010 Gabapentin, Bulk, 100 % PowdIndications:CIDP (chronic inflammatory demyelinating polyneuropathy) [place] [facility]Non-Drug; Combo Route) route 3 times daily. Cleo 10%,linwood 5%,toy 10% apply tid to toes 60 g prn 06/23/2011 08/10/2015 UNABLE TO FIND Apply topically. Med Name: cleo 10% linwood 10 % toy 10 % 2-3 times per day to toes 60 g PRN 06/17/2011 08/10/2015 CIS Free Text Med - topical comopounding for toes 12/18/20102014 CIS Free Text Med - calcium citrate w/ D, Mg and kathy 11/13/2010 CIS Free Text Med - immunoglobulin 11/13/2010 08/10/2015 testosterone enanthate (DELATESTRYL) 200 mg/mL injection 11/13/2010 08/10/2015 folic acid (FOLVITE) 400 mcg tablet 11/13/2010 08/10/2015 ascorbic acid (VITAMIN C) 1,000 mg tablet 11/13/2010 08/10/2015 VITAMIN E ACETATE (VITAMIN E ORAL) 11/13/2010 08/10/2015 [place]-3 Fatty Acids-Vitamin E (OMEGA-3 FISH OIL) 1,000-5 [...] Dickerson MD - 03/08/2014 10:24 AM EDT [facility] [place] Patient Name: Roland Vega : [id number] MR#: [id number] Case Date: 03/08/2014 Surgeon: Surgeon(s) and Role: * Brandy Dickerson MD - Primary Preoperative diagnosis: persistent abd pain, change in bowels from regular to constipation Full procedure note is documented under the Procedure section of eDH. documented in this encounter Plan of Treatment Upcoming Encounters Date Type Department Care Team (Late st Contact Info) Description 08/09/2024 10:30 AM EDT Hospital Encounter [place] [address] Navi Montero MD [facility] [place] [address] 08/09/2024 10:30 AM EDT - 08/09/2024 11:15 AM EDT Surgery [place] [address] Navi Montero MD [facility] [place] [address] COLONOSCOPY,SCREENI NG (WRVU 3.26) Scheduled Procedures Name [...] * COLONOSCOPY (03/08/2014 9:33 AM EDT) COLONOSCOPY [facility] ___ Patient Name: Roland Vega ? Procedure Date: 03/08/2014 9:33 AM ? Date of : 1950 ? Age: 63 ? Order #: [id number] ? ___ Procedure: ? Colonoscopy Indications: ? [...] MD, Donnell Fonseca, ? RN, Brenna Cantor, Motorcycle Racer Referring MD: ?Vel Santos MD Medicines: ? [...] 8:20 AM EDT 100 mL/hr 100 mL/hr documented in [...] RN) documented in this encounter Care Teams Medical Technologist Prn Relationship Specialty Start Date End Date Vel Santos MD [address] [place] [address] [phone] PCP - General 09/24/10 06/04/23 documented as of this encounter
--- OUTSIDE RECORDS SUMMARY | 2024-07-19 22:18 | XMS_ITS | Encounter Summary ---
Author Organization [facility] [place] [address] Care Team Providers Care [employer] Worker Name Role Phone Vel Santos MD Primary Care Provider [phone] Reason for Visit * Reason Comments Skin Check Skin Lesion Encounter Details Date Type Department Care Team (Late st Contact Info) Description 08/10/2015 11:00 AM EDT Office Visit Dermatology at [facility] [address] [place] [address] Rl Martinez MD [address] [facility] [facility] [place] [address] Seborrheic keratoses, inflamed (Primary Dx); AK (actinic keratosis); Seborrheic dermatitis; SK (seborrheic keratosis); Dermatofibroma; Dorsey angioma; Lentigines Social History Tobacco Use Types Packs/Day Years Used Date Smoking Tobacco: Former Cigarettes Q uit: 08/10/2010 Smokeless Tobacco: Never Alcohol Use Standard Drinks/Week Comments Yes 14 (1 standard drink = 0.6 oz pu re alcohol) Sex and Gender Information Value Date Recorded Sex Assigned at Not on file Gender Identity Not on file Sexual Orientation Not on file documented as of this encounter Patient Instructions * Patient Instructions* Kandy Marr MA - 08/10/2015 11:51 AM EDT Actinic Keratoses You have been diagnosed today with Actinic Keratosis (AK). These dry, scaly patches are considered the earliest stage in the development of skin cancer. In rare cases, an AK can progress to skin cancer. Because of this risk, AKs are usually treated. You were treated today with Liquid Nitrogen. This is the most common treatment for AKs. Liquid nitrogen is extremely cold, and freezes the surface of the skin, causing the lesion to flake off. Treatment with liquid nitrogen can be uncomfortable, but discomfort should subside after a couple of hours. The area treated will look red and irritated, and it may blister up or turn dark, then fall off. This is normal! You do not need any special treatment for the area, but you may find cold compresses and/or a lightapplication of Vaseline soothing. For best results, do not rub or pick at the healing lesion. Expected healing time is 3-4 weeks. Please contact the Dermatology clinic at [phone] if the lesion has not fully resolved after 6 weeks. Seborrheic dermatitis Counseled: seborrheic dermatitis, chronic and recurrent course, etiologies and triggers, and treatment options for seborrheic dermatitis. Answered all questions. Handout on seborrheic dermatitis provided. Start nizoral shampoo, rinse after 5-10 min, daily for flares or weekly for prevention. Continue nizoral cream bid prn scaly rash on face. Counseled: risks of topical steroids. . documented in this encounter Progress Notes * Kandy Marr MA - 08/10/2015 11:27 AM EDT Chief Complaint: Lesion - rash History of Present Illness Roland Vega is a 65 y.o. male Complains of a recurrent scaly flaking rash on the scalp and face that has been coming and going onvarious parts of the head for years. Treated the face with nystatin cream with some relief but recurrence. Used OTC shampoos. Never been biopsied. Also, complains of a large warty lesion on the left lower abdomen that he picks at and is mildly pruritic. Present for years. Enlarging. Never been treated or biopsied. Requests full skin cancer screening. Skin Cancer History Left back, Basal cell carcinoma s/p ED&C May 2013 Abdomen, Basal Cell Carcinoma - excised around 2000 Allergies Allergies Allergen Reactions ??? Cis Free Text Allergy Swordfish. CIS - Anaphylaxis ??? Cis Free Text Allergy Swordfish. CIS - Anaphylaxis ??? Sulfa (Sulfonamide Antibiotics) CIS - Anaphylaxis, CIS - Anaphylaxis, CIS - Anaphylaxis ??? Hydroxychloroquine Sulfate CIS - visual changes, CIS - visual changes ??? Nsaids (Non-Steroidal Anti-Inflammatory Drug) CIS - swelling, CIS - swelling Medications Reconciled as above.med Current Outpatient Prescriptions on File Prior to Visit Medication Sig Dispense Refill ??? testosterone enanthate (DELATESTRYL) 200 mg/mL injection ??? aspirin 325 mg tablet ??? nitroGLYcerin (NITROSTAT) 0.4 mg SL tablet 0.4 MG = 1 Tablet(s), Sublingual, prn ??? lisinopril (PRINIVIL;ZESTRIL) 5 mg tablet 5 MG = 1 Tablet(s), PO, Once daily ??? Gabapentin, Bulk, 100 % Powd by [facility].(Non-Drug; Combo Route) route 3 times daily. Cleo [...] CIS Free Text Med - immunoglobulin ??? folic acid (FOLVITE) 400 mcg tablet ??? ascorbic acid (VITAMIN C) 1,000 mg tablet ??? VITAMIN E ACETATE (VITAMIN E ORAL) ??? [place]-3 Fatty Acids-Vitamin E (OMEGA-3 FISH OIL) 1,000-5 mg-unit Cap ??? pantoprazole (PROTONIX) 20 mg tablet 20 MG = 1 Tablet(s), PO, Once daily ??? atorvastatin (LIPITOR) 40 mg tablet 40 MG = 1 Tablet(s), PO, Once daily ??? ALPHA LIPOIC ACID ORAL ??? CHOLECALCIFEROL, VITAMIN D3, (VITAMIN D-3 ORAL) ??? metoprolol succinate (TOPROL-XL) 100 mg XL tablet 100 MG = 1 Tablet(s), PO, Once daily No current facility-administered medications on file prior to visit. Review of Systems Significant for no fevers, chills, night sweats, or fatigue and no other pertinent and acute changes in constitutional, other skin, HEENT, gastrointestinal, respiratory, cardiovascular, genitourinary, lymphatic, musculoskeletal, endocrine, neurologic, psychiatric, allergy/immunology systems upon specific queries. 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 Mood is appropriate. Well developed, well-nourished in no apparent distress, alert and oriented to time, person, place and situation. Skin Type: II. Examination of the head - including the scalp, face, ears, nose, lips, tongue, oral mucosa - neck, chest, abdomen, back, axillae, buttocks, pubic area, upper and lower extremities, including the nailplates, significant for the following: - [place], hyperkeratotic slightly irregular papules on the scalp x 5, forehead x1, and on the right side x1 [Total 7] - Scaly patches on the eybrows and left face schwartz area. - Firm, 9mm pink-conde papule with dimple sign on the right medial leg - Multiple, dorsey red 1-4mm papules on the trunk. - Scattered, stuck-on, well-demarcated, conde or brown, waxy or warty papules on the arms, trunk and scalp. - 18 mm warty stuck on papule on the left lower abdomen. - Multiple, uniformly conde, slightly irregular, polygonal macules on sun-exposed areas of skin - No evidence of recurrence in scars on the left back and abdomen. Assessment and Plan Inflamed Seborrheic Keratosis Benign. Symptomatic or inflamed. Counseled: ISKs and SKs, benign, treatment options for symptomatic lesions. Answered all questions.Handout given. Total 1 treated with cryotherapy, 1 cycle at 3-6 seconds for each, after verbally discussing the disease and treatment options, cryotherapy method, expected results/course and potential adverse effects, including crusting, persistent erythema, scar, blister, pain, dyspigmentation, and recurrence. Stevne schaffer verbally agreed. Patient tolerated well with no complications. Wound care instructions provided. If no resolution in 7-14d, may contact clinic for re- evaluation and management. Actinic Keratosis Counseled: AKs, risk for progression to SCCs, and treatment options, including observation, cryotherapy (recommended), topicals, and PDT. Answered all questions. Handout given. Total 7 treated with cryotherapy, 1 cycle at 3-6 seconds for each, after verbally discussing the disease and treatment options, cryotherapy method, expected results/course and potential adverse effects, including crusting, persistent erythema, scar, blister, pain, dyspigmentation, and recurrence. Steven schaffer verbally agreed. Patient tolerated well with no complications. Wound care instructions provided. If no resolution in 7-14d, may contact clinic for re- evaluation and management. Seborrheic dermatitis Counseled: seborrheic dermatitis, chronic and recurrent course, etiologies and triggers, and treatment options for seborrheic dermatitis. Answered all questions. Handout on seborrheic dermatitis provided. Start nizoral shampoo, rinse after 5-10 min, qd for flares or weekly for prevention. Continue the nystatin cream bid prn scaly rash on face. Counseled: risks of topical steroids. Dermatofibroma Counseled: Dermatofibromas, benign/non-cancerous growth of dermal dendritic histiocyte cells, commonly arise at site of a minor injury and etiology is unknown, prognosis, treatment options if recurs and/or is symptomatic. Return to clinic if recurs and patient would like removed. Answered all questions. Handout given. Dorsey angiomas. Counseled: dorsey angiomas. Benign. No treatment necessary unless symptoms develop. Treatment considered cosmetic and [id number]. Treatment options, including but not limited to electrocautery, discussed. Handout given. Seborrheic Keratosis Benign. No treatment necessary. Counseled: SKs, benign, treatment options for symptomatic lesions. Answered all questions. Handout given Lentigo Benign. Counseled: lentigos, sun damage and spontaneous development, rare risk of lentigo maligna (melanomaarising in a lentigo), sun protection, no treatment necessary but discussed cosmetic options, including topical bleaching agents, as well as chemical peels and lasers. Answered all questions. Handoutgiven. History of Skin Cancer No evidence of recurrence. Patient Counseling (Skin Cancer) Counseled: sun protection, self skin exams, provider skin exams every 12 months, and the ABCDEs of melanoma/NMSC (handout given). Answered all questions. Follow-up: Skin cancer screening in 12 months or return to clinic prn for new suspicious lesions orif changes/symptoms in existing lesions develop. I am documenting this encounter acting as the scribe for and in the presence of Dr. Martinez: Kandy Marr MA I performed the above scribed service and agree with the accuracy of the documentation in this encounter. Rl Martinez MD FAAD Section of Dermatology [facility] documented in this encounter Plan of Treatment Upcoming Encounters Date Type Department Care Team (Late st Contact Info) Description 08/09/2024 10:30 AM EDT Hospital Encounter [place] [address] Navi Montero MD [facility] [place] [address] 08/09/2024 10:30 AM EDT - 08/09/2024 11:15 AM EDT Surgery [place] [address] Navi Montero MD [facility] [place] [address] COLONOSCOPY,SCREENI NG (WRVU 3.26) Scheduled Procedures Name Priority Associated Diagnoses Date/Ti me COLONOSCOPY,SCREENING (WRVU 3.26) polyps 08/09/2024 10:30 AM EDT documented as of this encounter Visit Diagnoses Diagnosis Seborrheic keratoses, inflamed- Primary AK (actinic keratosis) Actinic keratosis Seborrheic dermatitis Seborrheic dermatitis, unspecified SK (seborrheic keratosis) Other seborrheic keratosis Dermatofibroma Benign neoplasm of skin, site unspecified Dorsey angioma Nevus, non-neoplastic Lentigines Other dyschromia documented in this encounter Care Teams [employer] Worker Relationship Specialty Start Date End Date Vel Santos MD [address] [place] [address] [phone] PCP - General 09/24/10 06/04/23 documented as of this encounter
--- OUTSIDE RECORDS SUMMARY | 2024-07-19 22:18 | XMS_ITS | Encounter Summary ---
Author Organization [facility] [place] [address] Care Team Providers Care Assembler Trim Name Role Phone Vel Santos MD Primary Care Provider [phone] Reason for Visit * Reason Comments Medication Refill Encounter Details Date Type Department Care Team (Late st Contact Info) Description 06/30/2011 Refill [place] [address] Kevin Benavidez MD [facility] [place] [address] Social History Tobacco Use Types Packs/Day Years [...] 10:30 AM EDT Hospital Encounter [place] [address] Navi Montero MD [facility] [place] [address] 08/09/2024 10:30 AM EDT - 08/09/2024 11:15 AM EDT Surgery [place] [phone] Navi Montero MD [facility] [place] [address] COLONOSCOPY,SCREENI NG (WRVU 3.26) Scheduled Procedures Name Priority Associated Diagnoses Date/Ti me COLONOSCOPY,SCREENING (WRVU 3.26) polyps 08/09/2024 10:30 AM EDT documented as of this encounter Visit Diagnoses Not on filedocumented in this encounter Care Teams Assembler Trim Relationship Specialty Start Date End Date Vel Santos MD [address] [place] [address] [phone] PCP - General 09/24/10 06/04/23 documented as of this encounter
--- OUTSIDE RECORDS SUMMARY | 2024-07-19 22:18 | XMS_ITS | Encounter Summary ---
Author Organization [facility] [place] [address] Care Team Providers Care Kiln Cleaner Name Role Phone Vel Santos MD Primary Care Provider [phone] Reason for Visit * Reason Onset Date Comments Other 04/13/2018 pantoprazole Encounter Details Date Type Department Care Team (Late st Contact Info) Description 04/13/2018 Telephone Cardiology at [address] [address] Adrian Rubio MD [facility] [place] [address] Other (pantoprazole) Social History Tobacco Use Types Packs/Day Years [...] Miscellaneous Notes * Telephone Encounter - Vel Aguilar RN - 04/13/2018 12:16 PM EDT Requested Prescriptions Pending Prescriptions Disp Refills ??? pantoprazole (PROTONIX) 40 mg Tablet, Delayed Release (E.C.) 90 tablet 3 Sig: Take 1 tablet by mouth daily. Received prescription refill request for above Protonix from [place], [place] Refill request for 90 days with 3 refills advanced anticipating future (annual) follow up in 4 Cardiology Clinic. Note routed to Clinic Scheduling professionals to call and offer same. Reviewed Epic record and last Discharge Summary from Dr. Rubio dated 04/20/2017. Refill prepped and forwarded to Provider for authorization Pavel Aguilar oscillograph technician Team Nurse [facility] Ambulatory Cardiology * Telephone Encounter - Traec Dunaway - 04/13/2018 11:16 AM EDT Pharmacy called in asking for a refill prescription for the Pantoprazole documented in this encounter Plan of Treatment Upcoming Encounters Date Type Department Care Team (Late st Contact Info) Description 08/09/2024 10:30 AM EDT Hospital Encounter [place] [address] Navi Montero MD [facility] [place] [address] 08/09/2024 10:30 AM EDT - 08/09/2024 11:15 AM EDT [place] [address] Navi Montero MD [facility] [place] [address] COLONOSCOPY,SCREENI NG (WRVU 3.26) Scheduled Procedures Name Priority Associated Diagnoses Date/Ti me COLONOSCOPY,SCREENING (WRVU 3.26) polyps 08/09/2024 10:30 AM EDT documented as of this encounter Visit Diagnoses Not on filedocumented in this encounter Care Teams Kiln Cleaner Relationship Specialty Start Date End Date Vel Santos MD [address] [place] [phone] PCP - General 09/24/10 06/04/23 documented as of this encounter
--- OUTSIDE RECORDS SUMMARY | 2024-07-19 22:19 | XMS_ITS ---
Author Organization Unknown Address [address] [place] [address] [phone] Phone Care Team Providers Care Physiology Teacher Name Role Phone CHINA Oneill Attending Unavailable Results COMPREHENSIVE METABOLIC PANE L (CMP) - Collect Date/Time: 01/27/2023 11:53 [facility] ID: [id number] - [id number] [address] [place], [place], [address] LOINC: 43685-4 Test Value Unit Reference Range Code Code System Flag GLUCOSE 92 mg/dL L=70 H=116 2345-7 LOINC BUN 13 mg/dL L=6 H=25 3094-0 LOINC CREATININE 1.06 mg/dL L=0.67 H=1.17 2160-0 LOINC SODIUM SERUM 141 mmol/L L=136 H=145 2951-2 LOINC POTASSIUM SERUM 5.0 mmol/L L=3.4 H=5.2 2823-3 LOINC CHLORIDE SERUM 102 mmol/L L=96 H=110 2075-0 LOINC CARBON DIOXIDE (CO2) 32 mmol/L L=22 H=34 2028-9 LOINC ANION GAP 7.2 mmol/L 70538-1 LOINC CALCIUM SERUM 9.0 mg/dL L=8.2 H=10.2 93335-5 LOINC BILIRUBIN TOTAL 0.8 mg/dL L=0.0 H=1.3 1975-2 LOINC ALK. PHOS. 70 U/L L=46 H=116 6768-6 LOINC SGOT (AST) 29 U/L L=15 H=37 1920-8 LOINC SGPT (ALT) 48 U/L L=12 H=78 1742-6 LOINC TOTAL PROTEIN 7.8 gm/dL L=6.0 H=8.0 2885-2 [facility] ALBUMIN 4.0 gm/dL L=3.4 H=5.0 1751-7 [facility] AGE 72 years eGFR (non-Afr.Amer.) 69 mL/min 43922-6 [facility] eGFR (Afr-Montenegrin) 83 mL/min 53757-5 [facility] Social History Type Status Start Date End Date Code Code Syst em Smoking History Former smoker 0743601 SNOMED CT Sex Male Medications Medication Start Date End Date Route Frequency Dose Code Code System Medication Instructions Home Meds Aspirin EC 325MG Oral Tablet, Enteric Coated 01/01/2023 Unknown ORAL DAILY 325 MILLIGRAMS 613832 RxNorm TAKE 325 MILLIGRAMS ORAL DAILY Clopidogrel 75MG Oral Tablet 01/01/2023 Unknown ORAL DAILY 75 MILLIGRAMS 182797 RxNorm TAKE 75 MILLIGRAMS ORAL DAILY CoQ10 100 MG Oral Capsule 01/01/2023 Unknown ORAL DAILY 100 MG RxNorm TAKE 100 MG ORAL DAILY D3 2000 2000 IU Oral Capsule, Liquid Filled 01/01/2023 Unknown ORAL DAILY 2000 IU RxNorm TAKE 2000 IU ORAL DAILY Depo-Testost erone 200MG/1ML Intramuscula r Oil 01/01/2023 Unknown INTRAMUS CULAR WEEKLY 1 unit(s) 599452 RxNorm INJECT 1 EACH INTRAMUSCULAR WEEKLY Fish Oil 120 MG-180 MG-5 IU Oral Capsule 01/01/2023 Unknown ORAL DAILY 1 unit(s) RxNorm TAKE 1 EACH ORAL DAILY MiraLAX 17GM/1Dose Oral Powder for Solution 01/01/2023 02/10/20 23 ORAL NEEDED DAILY 1 unit(s) 726700 RxNorm TAKE 1 EACH ORAL NEEDED DAILY Nitroglyceri n 0.4MG Sublingual Tablet 01/01/2023 Unknown SUBLINGU AL NEEDED 0.4 MILLIGRAMS 674172 RxNorm DISSOLVE 0.4 MILLIGRAMS SUBLINGUAL NEEDED Protonix 40 MG Oral Tablet, Delayed Release 01/01/2023 Unknown ORAL DAILY 40 MG 575293 RxNorm TAKE 40 MG ORAL DAILY Wellbutrin SR 150MG Oral Tablet, Extended Release, 12 HR 01/01/2023 Unknown ORAL DAILY 150 MILLIGRAMS 946084 RxNorm TAKE 150 MILLIGRAMS ORAL DAILY amLODIPine Besylate 10MG Oral Tablet 01/01/2023 Unknown ORAL DAILY 10 MILLIGRAMS 032600 RxNorm TAKE 10 MILLIGRAMS ORAL DAILY Assessment You had the following problems:ACUTE KIDNEY INJURYPALPITATIONSCORONARY ARTERY DISEASEHISTORY OF ISCHEMIC STROKE Hospital Discharge Instructions Should you have any questions prior to discharge, please contact a member of your healthcare team. If you have left the hospital and have any questions, please contact your primary care physician. Reason For Referral No Data Found Problems Problem Start Date Resolved Date Status Code Code System ACUTE KIDNEY INJURY active 51972385 SNOMED-CT PALPITATIONS active 34259489 SNOMED- CT CORONARY ARTERY DISEASE active 56314545 SNOMED-CT HISTORY OF ISCHEMIC STROKE active 16282489819172085 SNOMED-CT HISTORY OF CEREBROVASCULAR ACCIDENT 12/31/2022 resolved 135901053 SNOMED-CT PERIPHERAL NEUROPATHY 12/31/2022 resolved 5552155 06 SNOMED-CT NONALCOHOLIC FATTY LIVER DISEASE 12/31/2022 resolved 434002781 SNOMED-CT CORONARY ARTERY DISEASE 12/31/2022 resolved 80735775 SNOMED-CT PERSONAL HISTORY OF CANCER OF PROSTATE 12/31/2022 resolved 419221840 SNOMED-CT Allergies and Adverse Reactions Allergy Substance Reaction Severity Start Date Concern Status Co de Code System SULFA (sulfonamide) Active 79576368 SNO MED-CT swordfish Active 97055318 SNOMED-CT Plan of Treatment No Data Found Encounters Encounter Diagnosis Start Date Code Code Sys tem Disorder of kidney and ureter, unspecified 01/27/2023 SNOMED-CT Personal Care Team Section Performer Name Performer Role Active Date Inactive Da te
--- OUTSIDE RECORDS SUMMARY | 2024-07-19 22:19 | XMS_ITS ---
Author Organization Unknown Address [address] [place] [phone] Phone Care Team Providers Care Coal Digger Name Role Phone ANTOINE SCHULTZ Registered Nurse Unavailable CELIA Oneill Attending Unavailable MARIBELL FOSS Unavailable CHINA Oneill Primary Unavailable UNLISTED PROVIDER - REQUESTED Xhandoff Un available Results BASIC METABOLIC PANEL (BMP) - Collect Date/Time: 02/09/2023 17:45 [facility] ID: [id number] [address] [place], [place], [address] LOINC: 06636-8 Test Value Unit Reference Range Code Code System Flag GLUCOSE 97 mg/dL L=70 H=116 2345-7 LOINC BUN 20 mg/dL L=6 H=25 3094-0 LOINC CREATININE 1.01 mg/dL L=0.67 H=1.17 2160-0 LOINC SODIUM SERUM 139 mmol/L L=136 H=145 2951-2 LOINC POTASSIUM SERUM 4.0 mmol/L L=3.4 H=5.2 2823-3 LOINC CHLORIDE SERUM 102 mmol/L L=96 H=110 2075-0 LOINC CARBON DIOXIDE (CO2) 27 mmol/L L=22 H=34 2028-9 LOINC ANION GAP 10.3 mmol/L 16504-5 LOINC CALCIUM SERUM 9.3 mg/dL L=8.2 H=10.2 32739-3 LOINC AGE 72 years eGFR (non-Afr.Amer.) 73 mL/min 42261-7 LOINC eGFR (Afr-Mosotho) 88 mL/min 56745-8 LOINC PTT PARTIAL THROMBOPLASTIN T EDUIN* - Collect Date/Time: 02/09/2023 17:45 [facility] ID: [id number] [address] [place], [place], [id number] LOINC: 68402-3 Test Value Unit Reference Range Code Code System Flag PTT 23.2 seconds L=24.5 H=32.8 96899-4 LOINC L PT PROTHROMBIN TIME* - [place] ct Date/Time: 02/09/2023 17:45 [facility] ID: [id number] [address] [place] [address], [address] LOINC: 5902-2 Test Value Unit Reference Range Code Code System Flag PROTIME 10.7 seconds L=9.3 H=11.4 5902-2 LOINC INR 1.08 L=2.00 H=3.00 23065-8 LOINC L CBC W/ DIFFERENTIAL* - [place] ct Date/Time: 02/09/2023 17:45 [facility] ID: [id number] [address] [place] [address], [address] LOINC: 66801-7 Test Value Unit Reference Range Code Code System Flag WBC 5.30 th/cmm L=5.00 H=10.00 6690-2 LOINC NEUT % 57.5 % L=40.0 H=80.0 LYMPH % 32.3 % L=10.0 H=50.0 MONO % 8.1 % L=2.0 H=12.0 74343-2 LOINC EOS % 0.9 % L=0.0 H=8.0 BASO % 0.8 % L=0.0 H=3.0 IG % 0.4 % L=0.0 H=1.1 2514-8 LOINC NRBC % 0.0 % L=0.0 H=0.0 62974-1 LOINC NEUT abs count 3.1 th/cmm L=1.6 H=8.4 751-8 LOINC LYMPH abs count 1.7 th/cmm L=1.5 H=4.0 731-0 LOINC MONO abs count 0.4 th/cmm L=0.2 H=1.0 742-7 LOINC EOS abs count 0.1 th/cmm L=0.0 H=0.5 711-2 LOINC BASO abs count 0.0 th/cmm L=0.0 H=0.2 704-7 LOINC IG abs count 0.0 th/cmm L=0.0 H=0.1 62796-5 LOINC NRBC abs count 0.0 mil/cmm L=0.0 H=0.0 94167-5 LOINC RBC 4.84 mil/cmm L=4.30 H=6.20 789-8 LOINC HEMOGLOBIN 15.7 gm/dL L=13.0 H=17.0 718-7 LOINC HEMATOCRIT 46 % L=45 H=52 4544-3 LOINC MCV 96 fL L=82 H=92 787-2 LOINC H MCH 32.4 pg L=27.0 H=31.0 785-6 LOINC H MCHC 33.8 % L=32.0 H=36.0 786-4 LOINC RDW-SD 48.8 fL L=39.0 H=49.0 788-0 LOINC PLATELET COUNT 198 th/cmm L=150 H=450 777-3 LOINC Social History Type Status Start Date End Date Code Code Syst em Smoking History Former smoker 2179615 SNOMED CT Sex Male Vital Signs Vital Sign Value Unit Morton Value Morton Unit Date/Time Recent/Initial? Code Code System Body Mass Index 26.30 kg/m2 02/09/2023 17:08 Initial 85512 -5 LOINC Systolic Blood Pressure 128 mm[Hg] 02/09/2023 18:30 Most Recent 8480- 6 LOINC Diastolic Blood Pressure 80 mm[Hg] 02/09/2023 18:30 Most Recent 8462- 4 LOINC Systolic Blood Pressure 128 mm[Hg] 02/09/2023 17:08 Initial 8480- 6 LOINC Diastolic Blood Pressure 72 mm[Hg] 02/09/2023 17:08 Initial 8462- 4 LOINC Body Surface Area 2.15 m2 02/09/2023 17:08 Initial 3140- 1 LOINC Height 184.988 2 cm 72.83 in 02/09/2023 17:08 Initial 8302- 2 LOINC O2 Saturation 99 % 2022 18:30 Most Recent 10550 -5 [facility] O2 Saturation 100 % 2022 17:08 Initial 22808 -5 [facility] Pulse 80.0 /min 02/09/2023 18:30 Most Recent 8867- 4 [facility] Pulse 62.0 /min 02/09/2023 17:08 Initial 8867- 4 [facility] Respiration 16 /min 02/10/20 18:30 Most Recent 9279- 1 [facility] Respiration 16 /min 02/10/20 17:08 Initial 9279- 1 [facility] Temperature 36.0 Yaneth 96.8 F 02/10/20 17:08 Initial 8310- 5 [facility] Weight 90.00 kg 198.42 lbs 02/09/2023 17:08 Initial 40138 -7 [facility] Medications Medication Start Date End Date Route Frequency Dose Code Code System Medication Instructions Home Meds Aspirin EC 325MG Oral Tablet, Enteric Coated 01/01/2023 Unknown ORAL DAILY 325 MILLIGRAMS 311896 RxNorm TAKE 325 MILLIGRAMS ORAL DAILY Clopidogrel 75MG Oral Tablet 01/01/2023 Unknown ORAL DAILY 75 MILLIGRAMS 856723 RxNorm TAKE 75 MILLIGRAMS ORAL DAILY CoQ10 100 MG Oral Capsule 01/01/2023 Unknown ORAL DAILY 100 MG RxNorm TAKE 100 MG ORAL DAILY D3 2000 2000 IU Oral Capsule, Liquid Filled 01/01/2023 Unknown ORAL DAILY 2000 IU RxNorm TAKE 2000 IU ORAL DAILY Depo-Testost erone 200MG/1ML Intramuscula r Oil 01/01/2023 Unknown INTRAMUS CULAR WEEKLY 1 unit(s) 935759 RxNorm INJECT 1 EACH INTRAMUSCULAR WEEKLY Fish Oil 120 MG-180 MG-5 IU Oral Capsule 01/01/2023 Unknown ORAL DAILY 1 unit(s) RxNorm TAKE 1 EACH ORAL DAILY MiraLAX 17GM/1Dose Oral Powder for Solution 01/01/2023 02/10/20 23 ORAL NEEDED DAILY 1 unit(s) 087666 RxNorm TAKE 1 EACH ORAL NEEDED DAILY Nitroglyceri n 0.4MG Sublingual Tablet 01/01/2023 Unknown SUBLINGU AL NEEDED 0.4 MILLIGRAMS 328667 RxNorm DISSOLVE 0.4 MILLIGRAMS SUBLINGUAL NEEDED Protonix 40 MG Oral Tablet, Delayed Release 01/01/2023 Unknown ORAL DAILY 40 MG 317169 RxNorm TAKE 40 MG ORAL DAILY Wellbutrin SR 150MG Oral Tablet, Extended Release, 12 HR 01/01/2023 Unknown ORAL DAILY 150 MILLIGRAMS 179847 RxNorm TAKE 150 MILLIGRAMS ORAL DAILY amLODIPine Besylate 10MG Oral Tablet 01/01/2023 Unknown ORAL DAILY 10 MILLIGRAMS 568778 RxNorm TAKE 10 MILLIGRAMS ORAL DAILY Assessment [...] Code Code System ACUTE KIDNEY INJURY active 19463685 SNOMED-CT PALPITATIONS active 72796817 SNOMED- CT CORONARY ARTERY DISEASE active 86679771 SNOMED-CT HISTORY OF ISCHEMIC STROKE active 11952617444864716 SNOMED-CT HISTORY OF CEREBROVASCULAR ACCIDENT 12/31/2022 resolved 464772086 SNOMED-CT PERIPHERAL NEUROPATHY 12/31/2022 resolved 5685986 06 SNOMED-CT NONALCOHOLIC FATTY LIVER DISEASE 12/31/2022 resolved 796796357 SNOMED-CT CORONARY ARTERY DISEASE 12/31/2022 resolved 59003206 SNOMED-CT PERSONAL HISTORY OF CANCER OF PROSTATE 12/31/2022 resolved 213170215 SNOMED-CT Allergies and Adverse Reactions Allergy Substance Reaction Severity Start Date Concern Status Co de Code System SULFA (sulfonamide) Active 23747625 SNO MED-CT swordfish Active 24141491 SNOMED-CT Plan of Treatment No Data Found Encounters Encounter Diagnosis Start Date Code Code Sys tem Hemorrhage of anus and rectum 02/09/2023 SNOMED-CT Personal Care Team Section Performer Name Performer Role Active Date Inactive Da te
--- OUTSIDE RECORDS SUMMARY | 2024-07-19 22:19 | XMS_ITS ---
Author Organization Unknown Address [address] [place] [phone] Phone Care Team Providers Care Youth Corrections Officer Name Role Phone CHINA Oneill Attending Unavailable Social History Type Status Start Date End Date Code Code Syst em Smoking History Former smoker 1233458 SNOMED CT Sex Male Medications Medication Start Date End Date Route Frequency Dose Code Code System Medication Instructions Home Meds Aspirin EC 325MG Oral Tablet, Enteric Coated 01/01/2023 Unknown ORAL DAILY 325 MILLIGRAMS 497175 RxNorm TAKE 325 MILLIGRAMS ORAL DAILY Clopidogrel 75MG Oral Tablet 01/01/2023 Unknown ORAL DAILY 75 MILLIGRAMS 104867 RxNorm TAKE 75 MILLIGRAMS ORAL DAILY CoQ10 100 MG Oral Capsule 01/01/2023 Unknown ORAL DAILY 100 MG RxNorm TAKE 100 MG ORAL DAILY D3 2000 2000 IU Oral Capsule, Liquid Filled 01/01/2023 Unknown ORAL DAILY 2000 IU RxNorm TAKE 2000 IU ORAL DAILY Depo-Testost erone 200MG/1ML Intramuscula r Oil 01/01/2023 Unknown INTRAMUS CULAR WEEKLY 1 unit(s) 482728 RxNorm INJECT 1 EACH INTRAMUSCULAR WEEKLY Fish Oil 120 MG-180 MG-5 IU Oral Capsule 01/01/2023 Unknown ORAL DAILY 1 unit(s) RxNorm TAKE 1 EACH ORAL DAILY MiraLAX 17GM/1Dose Oral Powder for Solution 01/01/2023 02/10/20 23 ORAL NEEDED DAILY 1 unit(s) 653923 RxNorm TAKE 1 EACH ORAL NEEDED DAILY Nitroglyceri n 0.4MG Sublingual Tablet 01/01/2023 Unknown SUBLINGU AL NEEDED 0.4 MILLIGRAMS 712083 RxNorm DISSOLVE 0.4 MILLIGRAMS SUBLINGUAL NEEDED Protonix 40 MG Oral Tablet, Delayed Release 01/01/2023 Unknown ORAL DAILY 40 MG 230801 RxNorm TAKE 40 MG ORAL DAILY Wellbutrin SR 150MG Oral Tablet, Extended Release, 12 HR 01/01/2023 Unknown ORAL DAILY 150 MILLIGRAMS 740980 RxNorm TAKE 150 MILLIGRAMS ORAL DAILY amLODIPine Besylate 10MG Oral Tablet 01/01/2023 Unknown ORAL DAILY 10 MILLIGRAMS 945143 RxNorm TAKE 10 MILLIGRAMS ORAL DAILY Assessment [...] Code Code System ACUTE KIDNEY INJURY active 13539373 SNOMED-CT PALPITATIONS active 52586001 SNOMED- CT CORONARY ARTERY DISEASE active 84086281 SNOMED-CT HISTORY OF ISCHEMIC STROKE active 09762608816398469 SNOMED-CT HISTORY OF CEREBROVASCULAR ACCIDENT 12/31/2022 resolved 846100815 SNOMED-CT PERIPHERAL NEUROPATHY 12/31/2022 resolved 6933741 06 SNOMED-CT NONALCOHOLIC FATTY LIVER DISEASE 12/31/2022 resolved 940519828 SNOMED-CT CORONARY ARTERY DISEASE 12/31/2022 resolved 76547326 SNOMED-CT PERSONAL HISTORY OF CANCER OF PROSTATE 12/31/2022 resolved 180091748 SNOMED-CT Allergies and Adverse Reactions Allergy Substance Reaction Severity Start Date Concern Status Co de Code System SULFA (sulfonamide) Active 56127273 SNO MED-CT swordfish Active 26500117 SNOMED-CT Plan of Treatment No Data Found Encounters Encounter Diagnosis Start Date Code Code Sys tem Canceled operative procedure 01/22/2023 81505688 SNOMED-CT Personal Care Team Section Performer Name Performer Role Active Date Inactive Da te
--- OUTSIDE RECORDS SUMMARY | 2024-07-19 22:19 | XMS_ITS | Continuity of Care Document ---
Author Organization [place] [facility] Address [address] [place] [address] Assessment Encounter Date Assessment Date Assessment LastModified by Organization Details LastModified Time 05/31/2024 05/31/2024 22 [email or web address] Not available 05/04 15:58:38 Plan of Treatment Reminders Order Date Submit Date Provider Last Modified By Organization Details Last Modified Time Details Appointments Office Visit 2023 12:10P M Not available Not available Not available Annual Chronic Care (65+) 30 2024 02:10P M Not available Not available Not available Lab None recorded. Referral None recorded. Procedures None recorded. Surgeries None recorded. Imaging CT, chest, w/o contrast 2023 024 [email or web address] [facility], [address], [place], [address], 06/20/2024 15:32:40 Medication Orders famotidin e 20 mg tablet 2023 024 [facility], [address], [place], [address], 05/31/2024 15:58:46 Patient TargetsNo targets recorded. Patient InstructionsNo instructions recorded. Reason for Referral Orthopedic Surgeon Referral for Pain of left knee region Referring Physician: Marco Thompson [facility], Encounter Date: 12/18/2023 Urologist Referral for Erect ile dysfunction Referring Physician: Marco Thompson [facility], Encounter Date: 12/18/2023 Physical Therapist Referral for Pain of right shoulder region Referring Physician: Marco Thompson, Family Medicine, Encounter Date: 12/18/2023 Results Created Date Observation Date Name Description Value Unit Range Abnormal Flag Note LastModifiedBy Organization Detail LastModifiedTime 06/07/20 24 06/07/2024 XR, foot, 3 or more view No observ ation record ed. [email or web address] [facility] [address], [place], [address], 06/08/2024 07:37:19 Result Notes None recorded. Problems Name Problem SNOMED Code Status Onset Date Resolution Date Notes Provider Name and Address Organization Details Recorded Time Atherosc lerosis of coronary artery without angina pectoris 18679671814 4103 Active 2022 [place] 2007 stents, 2010 JANET Stent Eusebio Yannick [facility] 19:15:27 Testicul ar hypofunc tion 232182617 Active 2022 Eusebio Lanier [facility] 19:18:03 Malignan t tumor of prostate 510141778 Active prostate ctomy MD Naima [address] Dr, [facility] [address] , [facility] 4 01:42:45 Cerebral infarcti on 483084757 Active L MCA no residual MD Naima [address] Dr, [facility] [address] , [facility] 4 03:58:44 Essentia l tremor 571958495 Active 2022 [facility] Eusebio Leehead [facility] 4 19:16:35 Anxiety 17349719 Active [address], [facility] [address] , [facility] 4 11:18:40 Claustro phobia 26848985 Active 2022 Testing, flying MD Naima [address] Dr, [facility] [address] , [facility] 4 11:18:44 Gastroes ophageal reflux disease without esophagi tis 825407874 Active [address], [place] [address] [place] [address] 4 11:18:34 Gastroin testinal hemorrha ge 48673431 Active post polypect om colon - 4U [facility] 4 19:17:02 Essentia l hyperten shira 94037510 Active 2022 [facility] 4 19:16:13 Hyperlip idemia 69627635 Active 2022 [facility] 4 19:17:20 Nonalcoh olic steatohe patitis 512706684 Active [address], [place] [id number] , [facility] 4 11:18:51 Adult health examinat ion Active 2022 [facility] 4 19:14:56 Epidermo id cyst of skin 052332460 Completed 202212/14/2023 Problem Code: L72.3; Problem Code Type: ICD-10; MD Naima [address] Dr, [facility] [address] , [facility] 4 21:29:18 Erectile dysfunct ion 614905621 Active 2022 [facility] 4 19:16:06 Epidermo id cyst 600102241 Completed 202207/29/2023 Problem Code: L72.0; Problem Code Type: ICD-10; Not Available [facility] 3 05:30:40 Polyp of colon 62254124 Completed 202312/14/[address], [address] , [facility] 4 21:28:33 Diarrhea 26609513 Active [address], [place] [address] , [facility] 4 21:01:36 Pain of right shoulder region Active [address], [address] 4 03:58:39 Pain of left knee region 90019290848 4109 Active 2023 OA MD Naima [address] Dr, [place] [address] , [facility] 4 11:23:37 Obesity 372082247 Active 2023 RODRIGO CALLOWAY MA null, [facility] 4 12:36:26 Nodule of lung 985864262 Active [address], [place] [address] , [facility] 4 01:42:05 Abdomina l pain 09065851 Active [address], [facility] [address] , [facility] 4 12:42:17 Problem Notes None recorded. Medical Equipment None Reported. Allergies Allergen ID Allergen Name Allergen Category Reaction Reaction Severity Criticality Documentation Date Start Date Code Code System Note Provider Name and Address Organization Details Recorded Time 54463 Substance with sulfonami de structure and antibacte rial mechanism of action (substanc e) medicatio n anaphylax is moderate high 12/15/2023 12363 8002 SNOMED CARMELA CHRISTIANSON RN null, [facility] 4 10:28:48 45028 fish derived food,medi cation anaphylax is moderate high 12/15/2023 sword fish CARMELA CHRISTIANSON RN null, [place] - [facility] 4 10:30:20 Medications Name Sig Start Date Stop Date Status Note LastModified by Organization Details LastModified Time methocarb mague 500 mg tablet active Not Available Not Available No t Available clotrimaz ole 10 mg tang Take 1 tablet 5 times a day by oral route as directed for 7 days. 2023 active Not Available Not Available Not Avai lable bupropion HCl SR 150 mg tablet,12 hr sustained -release TAKE 1 TABLET BY MOUTH TWICE DAILY active Not Available Not Available No t Available Vitamin C 500 mg tablet Take 1 tablet twice a day by oral route. active Not Available Not Available No t Available aspirin 325 mg tablet 1 once a day active Not Available Not Available No t Available ibuprofen 800 mg tablet TAKE 1 TABLET BY MOUTH EVERY 6 TO 8 HOURS NEEDED FOR PAIN 12/16 completed Not Available Not Available Not Available famotidin e 40 mg tablet TAKE 1 TABLET BY MOUTH ONCE DAILY AT BEDTIME 05/31 completed Not Available Not Available Not Available clopidogr el 75 mg tablet TAKE 1 TABLET BY MOUTH ONCE DAILY active Not Available Not Available No t Available ciproflox acin 500 mg tablet TAKE 1 TABLET BY MOUTH TWICE DAILY FOR 7 DAYS 07/19 completed Not Available Not Available Not Available amoxicill in 500 mg tablet TAKE 1 TABLET BY MOUTH THREE TIMES DAILY 12/15 completed Not Available Not Available Not Available lamotrigi ne 25 mg tablet TAKE 3 TABLETS BY MOUTH TWICE DAILY active Not Available Not Available No t Available Tums Plus 500 mg-20 mg chewable tablet Take 1 tablet twice a day by oral route. active Not Available Not Available No t Available propranol ol 10 mg tablet TAKE 1 TABLET BY MOUTH TWICE DAILY INCREASE GRADUALL Y TO NO MORE THAN 4 TABLETS TWICE DAILY FOR ESSENTIA L TREMOR CAUTIONE D SIDE EFFECTS OF BRADYCAR MAYLIN AND LIGHTHEA DEDNESS active Not Available Not Available No t Available famotidin e 20 mg tablet TAKE 1 TABLET BY MOUTH TWICE DAILY active Not Available Not Available No t Available amlodipin e 10 mg tablet TAKE 1 TABLET BY MOUTH ONCE DAILY FOR 90 DAYS 02/13 /2024 completed Not Available Not Available Not Available hydrocodo ne 7.5 mg-acetam inophen 325 mg tablet TAKE 1 TABLET BY MOUTH EVERY 8 TO 12 HOURS NEEDED FOR PAIN 12/15 completed Not Available Not Available Not Available cephalexi n 500 mg capsule TAKE 1 CAPSULE BY MOUTH THREE TIMES DAILY 07/19 completed Not Available Not Available Not Available pantopraz ole 40 mg tablet,de layed release 1 tablet by mouth once a day 12/15 completed Not Available Not Available Not Available dexametha sone 4 mg tablet 12/15 completed Not Available Not Available Not Available BD Luer-Samantha Syringe 3 mL 25 gauge x 1 USE ONE A DAY DIRECTED WITH TESTOSTE SHASTA active Not Available Not Available No t Available niacin 100 mg tablet Take 1 tablet twice a day by oral route. active Not Available Not Available No t Available nitroglyc lebron 0.4 mg sublingua l tablet DISSOLVE ONE TABLET UNDER THE TONGUE EVERY 5 MINUTES NEEDED FOR CHEST PAIN. DO NOT EXCEED A TOTAL OF 3 DOSES IN 15 MINUTES active Not Available Not Available No t Available testoster one cypionate 200 mg/mL intramusc ular oil ADMINIST ER 1.5 ML IN THE MUSCLE 1 TIME WEEKLY. DISCARD THE REMAINDE R FOLLOWIN G 28 DAYS AFTER THE FIRST PUNCTURE OF THE MULTI-DO SE VIAL. active gets 2 10 ml bottles per 90 day supply Not Available Not Available Not Available ondansetr on 4 mg disintegr ating tablet 05/31 completed Not Available Not Available Not Available doxycycli ne hyclate 100 mg tablet 07/19 completed Not Available Not Available Not Available diazepam 5 mg tablet TAKE 1 TABLET BY MOUTH EVERY 4 HOURS NEEDED FOR AIRLINE TRAVEL AND DENTAL PROCEDUR ES active Not Available Not Available No t Available oxycodone 5 mg tablet 05/31 completed Not Available Not Available Not Available MSM 500 mg capsule Take 1 capsule twice a day by oral route. active Not Available Not Available No t Available chlorhexi dine gluconate 0.12 % mouthwash 12/15 completed Not Available Not Available Not Available magnesium 1 tab 1x a day active Not Available Not Available No t Available vitamin E (dl, acetate) 180 mg (400 unit) capsule Take 1 capsule every day by oral route. active Not Available Not Available No t Available Vitamin D3 125 mcg (5,000 unit) tablet Take 1 tablet every day by oral route. active Not Available Not Available No t Available Eclipse Syringe 3 mL 25 gauge x 1 USE ONE A DAY DIRECTED WITH JESI VEGAS active Not Available Not Available No t Available Repatha Syringe 140 mg/mL subcutane ous syringe 12/15 completed Not Available Not Available Not Available benfotiam ine 150 mg capsule Take 1 capsule every day by oral route. active OTC Thiamine Not Available Not Available Not Available ubiquinol 100 mg-pyrrol oquinolin e quinone (coenzyme PQQ) 10 mg capsule Take 1 capsule every day by oral route. active Not Available Not Available No t Available Vitals None Recorded Social History Question Answer Notes LastModified by Organizat ion Details LastModified Time Tobacco Smoking Status Former Smoker CARMELA CHRISTIANSON RN [facility], [place] [facility] 12/15/2023 10:39:11 When Did You Quit Smoking? 11-15yearssi [email or web address] Information not available 12/15/2023 What Was The Date Of Your Most Recent Tobacco Screening? 12/15/2023 [email or web address] Information not available 12/15/2023 Has Tobacco Cessation Counseling Been Provided? No [email or web address] Information not available 12/15/2023 Do You Or Have You Ever Used Any Other Forms Of Tobacco Or Nicotine? No [email or web address] Information not available 12/15/2023 Sex: Male Functional Status None recorded. Mental Status None recorded. 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 Immunizations Vaccine Type Date Status Provider Name and Address Organization Details Recorded Time Tdap 06/20/2020 completed Not Available [facility] 06:23:27 zoster recombinant 12/17/2022 completed Not Available [facility] 09/11/2023 06:23:27 zoster recombinant 03/03/2023 completed Not Available [facility] 09/11/2023 06:23:27 Influenza, high-dose, quadrivalent, PF 09/30/2021 completed Not Available [facility] 09/11/2023 06:23:27 Pneumococcal conjugate PCV20, polysaccharide VYL688 conjugate, adjuvant, PF 07/04/2022 completed Not Available [facility] 09/11/2023 06:23:27 COVID-19, mRNA, LNP-S, PF, 30 mcg/0.3 mL dose, francisca-sucrose 01/02/2021 completed Not Available [facility] 09/11/2023 06:23:28 COVID-19, mRNA, LNP-S, PF, 30 mcg/0.3 mL dose, francisca-sucrose 09/17/2021 completed Not Available [facility] 09/11/2023 06:23:28 pneumococcal polysaccharide PPV23 11/15/2020 completed Not Available [facility] 2022 06:23:28 Tdap 06/07/2024 completed [facility] 07/19/2024 12:24:03 Past Encounters Encounter ID Performer Location Encounter Start Date Encounter Closed Date Diagnosis/Indication Diagnosis SNOMED-CT Code Diagnosis ICD10 Code [id number] MARCO THOMPSON MD [address] [address] 05/31/2024 14:44:21 05/31/2024 16:12:48 Gastroesophageal reflux disease without esophagitis 221858646 K21.9 Nodule of lung 571544369 R91.1 Essential hypertension 83490993 I10 Health Concerns Section Related Observation LastModified by Organization Detai ls LastModified Time None Recorded Concern Status LastModified by Organization Details LastModified Time None Recorded Payers Encounter Date Sequence Insurance Name Policy Number Policy Fuentes Covered Member ID Fuentes Member ID Guarantor Name 05/31/2024 2 [employer] (MEDICARE SUPPLEMENT) Roland Vega [id number] Roland Vega 05/31/2024 1 [place]IC[place] [employer] Roland Vega [id number] Roland Vega Notes Date Note Type Note Provider Name and Address Organization Details Recorded Time 05/31/2024 text/html HPI Notes: Alethea nt requested a video conference visit. Consent was given. A few issues he was to talk about. He is overdue for follow-up CT scan for previously seen noted within his lung. That is being ordered. Also has calm self down from omeprazole to Pepcid 40 mg daily. 1 if you split the dose to 20 mg twice daily. I told no reason we cannot. He is also monitored blood pressure averaging 135/85 at home. Otherwise feeling well. He denies any recent illnesses. No chest pain respiratory symptoms. He has had no reflux or abdominal pain. MARCO THOMPSON MD [address], [place], [address], [facility]. 06/05/2024 01:46:13
--- OUTSIDE RECORDS SUMMARY | 2024-07-19 22:19 | XMS_ITS ---
Author Organization Unknown Address [address] [place] [phone] Phone Care Team Providers Care Shuttleless Loom Weaver Name Role Phone AKIL Benavides Attending Unavailable ALEKSANDER Oneill Secondary Unavailable Social History Type Status Start Date End Date Code Code Syst em Smoking History Former smoker 3410369 SNOMED CT Sex Male Medications Medication Start Date End Date Route Frequency Dose Code Code System Medication Instructions Home Meds Aspirin EC 325MG Oral Tablet, Enteric Coated 01/01/2023 Unknown ORAL DAILY 325 MILLIGRAMS 059593 RxNorm TAKE 325 MILLIGRAMS ORAL DAILY Clopidogrel 75MG Oral Tablet 01/01/2023 Unknown ORAL DAILY 75 MILLIGRAMS 002202 RxNorm TAKE 75 MILLIGRAMS ORAL DAILY CoQ10 100 MG Oral Capsule 01/01/2023 Unknown ORAL DAILY 100 MG RxNorm TAKE 100 MG ORAL DAILY D3 2000 2000 IU Oral Capsule, Liquid Filled 01/01/2023 Unknown ORAL DAILY 2000 IU RxNorm TAKE 2000 IU ORAL DAILY Depo-Testost erone 200MG/1ML Intramuscula r Oil 01/01/2023 Unknown INTRAMUS CULAR WEEKLY 1 unit(s) 672949 RxNorm INJECT 1 EACH INTRAMUSCULAR WEEKLY Fish Oil 120 MG-180 MG-5 IU Oral Capsule 01/01/2023 Unknown ORAL DAILY 1 unit(s) RxNorm TAKE 1 EACH ORAL DAILY MiraLAX 17GM/1Dose Oral Powder for Solution 01/01/2023 02/10/20 23 ORAL NEEDED DAILY 1 unit(s) 775499 RxNorm TAKE 1 EACH ORAL NEEDED DAILY Nitroglyceri n 0.4MG Sublingual Tablet 01/01/2023 Unknown SUBLINGU AL NEEDED 0.4 MILLIGRAMS 455146 RxNorm DISSOLVE 0.4 MILLIGRAMS SUBLINGUAL NEEDED Protonix 40 MG Oral Tablet, Delayed Release 01/01/2023 Unknown ORAL DAILY 40 MG 549028 RxNorm TAKE 40 MG ORAL DAILY Wellbutrin SR 150MG Oral Tablet, Extended Release, 12 HR 01/01/2023 Unknown ORAL DAILY 150 MILLIGRAMS 248637 RxNorm TAKE 150 MILLIGRAMS ORAL DAILY amLODIPine Besylate 10MG Oral Tablet 01/01/2023 Unknown ORAL DAILY 10 MILLIGRAMS 716947 RxNorm TAKE 10 MILLIGRAMS ORAL DAILY Assessment [...] Code Code System ACUTE KIDNEY INJURY active 64229073 SNOMED-CT PALPITATIONS active 80662908 SNOMED- CT CORONARY ARTERY DISEASE active 29296051 SNOMED-CT HISTORY OF ISCHEMIC STROKE active [id number] SNOMED-CT HISTORY OF CEREBROVASCULAR ACCIDENT 12/31/2022 resolved 056798785 SNOMED-CT PERIPHERAL NEUROPATHY 12/31/2022 resolved 9745014 06 SNOMED-CT NONALCOHOLIC FATTY LIVER DISEASE 12/31/2022 resolved 499224514 SNOMED-CT CORONARY ARTERY DISEASE 12/31/2022 resolved 54029976 SNOMED-CT PERSONAL HISTORY OF CANCER OF PROSTATE 12/31/2022 resolved 087851719 SNOMED-CT Allergies and Adverse Reactions Allergy Substance Reaction Severity Start Date Concern Status Co de Code System SULFA (sulfonamide) Active 30396096 SNO MED-CT swordfish Active 34951481 SNOMED-CT Plan of Treatment No Data Found Encounters Encounter Diagnosis Start Date Code Code Sys tem Acute kidney failure, unspecified 12/31/2022 SNOMED-CT Personal Care Team Section Performer Name Performer Role Active Date Inactive Da te
--- OUTSIDE RECORDS SUMMARY | 2024-07-19 22:19 | XMS_ITS | Encounter Summary ---
Author Organization Formerly [facility] [place] [address] Care Team Providers Care Moving Consultant Name Role Phone Marco Aleman MD Primary Care Provider [phone] Encounter Details Date Type Department Care Team (Late st Contact Info) Description 08/02/2004 [place] [id number] Torres Egan MD UROLOGY Social History Tobacco Use Types Packs/Day Years [...] 10:30 AM EDT Hospital En[place] [phone] Navi Montero MD [facility] [place] [address] 08/09/2024 10:30 AM EDT - 08/09/2024 11:15 AM EDT [place] [phone] Navi Montero MD [facility] [place] [address] COLONOSCOPY,SCREENI NG (WRVU 3.26) Scheduled Procedures Name Priority Associated Diagnoses Date/Ti me COLONOSCOPY,SCREENING (WRVU 3.26) polyps 08/09/2024 10:30 AM EDT documented as of this encounter Procedures Procedure Name Priority Date/Time Associated Diagnosis Comments SURGICAL PATHOLOGY REPORT Routine 08/02/2004 10:52 AM EDT documented in this encounter Results * Surgical Pathology Report (08/02/2004 10:52 AM EDT) Surgical Pathology Report [id number] ? Location: The signing pathologist has (i) examined the relevant preparation(s) for the specimen(s) and (ii) rendered or confirmed the diagnosis(es). . ?Pathology Surgical Pathology Final Report Clinical Information Specimen Submitted: A - (R) prostate B - (L) prostate Clinical History: R/O supervisor calibration, assym (R) prostate. ??CD: R/O supervisor calibration. Gross Description A - Labeled/Fixative: (R), formalin. Qty/Size/Weight: ?Five needle core biopsies, 0.1 cm in diameter, ?measuring 1.5 cm, 2 cm, 1.7 cm, 2 cm, and ?1.8-cm. Sections/Processing: ??(T2) B - Labeled/Fixative: (L), formalin. Qty/Size/Weight: ?Five needle core biopsies, 0.1 cm in diameter, ?1.7 cm, 1.8 cm, 1.2 cm, 2 cm, and 1.7 cm. Sections/Processing: ??(T2) ??tbb/ETH Microscopic Description Immunohistochemistry Studies: Interpretation: Formalin-fixed, paraffin-embedded tissue sections are studied for cytokeratin 34-beta-E12, p63, and P504S using the Avidin-Biotin complex technique with appropriate controls. These immunohistochemical studies provide ancillary information and are used only in conjunction with standard diagnostic procedures. Diagnosis A - Prostate (right), core biopsies: ?Focal high grade prostatic intraepithelial neoplasia ?(see Comment). ?Prostatic tissue with focal acute and chronic inflammation. B - Prostate (left), core biopsies: ?High grade prostatic intraepithelial neoplasia. ?Prostatic tissue with acute and chronic inflammation and focal ?mucinous metaplasia and Paneth cell-like change. CR-0 08/06/04 [facility] 08/09/04 Verified by: ? Tashi Gamez MD, PhD ?Pathologist ?(Electronic Signature) The attending pathologist whose signature appears on this report has reviewed all diagnostic slides and has edited the gross and/or microscopic portion of the report in rendering the final pathologic diagnosis. . Comment A single cluster of atypical glands is observed in one of the biopsy cores. This cluster stains with P504S, and demonstrates patchy staining for p63 and cytokeratin 34-beta-E12, consistent with a focus of high grade PIN. RACHEL DOMINGUEZ 08/02/2004 10:5 2 AM EDT Torres Egan MD PATHOLOGY/CYTOLOGY O RDERABLES RACHEL DOMINGUEZ documented in this encounter Visit Diagnoses Not on filedocumented in this encounter Care Teams Moving Consultant Relationship Specialty Start Date End Date Marco Aleman MD [address] [place] [address] PCP - General Family Medicine 06/05/23 documented as of this encounter
--- OUTSIDE RECORDS SUMMARY | 2024-07-19 22:19 | XMS_ITS ---
Author Organization Unknown Address [address] [place] [phone] Phone Care Team Providers Care Patent Attorney Name Role Phone MARLON OLIVER Registered Nurse Unavailable ALLAN MELISSA Registered Nurse Unavailable Unavailable Xwatchlist Unavailable AKIL Benavides Attending Unavailable ALEKSANDER [facility] Unavailable UNLISTED PROVIDER - REQUESTED Xhandoff Un available Results [facility]* - Collect Date/Time: 01/01/2023 13:20 [facility] ID: [id number] [address] [place] [address], [phone] LOINC: 28808-5 Test Value Unit Reference Range Code Code System Flag RESULTS NEGATIVE 23806-8 LOINC PERFORMED BY Denis James VERIFIED BY Krystina Trace TROPONIN HIGH SENSITIVITY* - Collect Date/Time: 01/01/2023 06:45 [facility] ID: [id number] [address] [place] [address], [address] LOINC: 04132-4 Test Value Unit Reference Range Code Code System Flag TROPONIN HS 10.7 pg/mL L=0.0 H=60.4 Specimen seq. RANDOM BASIC METABOLIC PANEL (BMP) - Collect Date/Time: 01/01/2023 06:45 [facility] ID: [id number] [address] [place] [address], [address] LOINC: 17486-1 Test Value Unit Reference Range Code Code System Flag GLUCOSE 98 mg/dL L=70 H=116 2345-7 LOINC BUN 19 mg/dL L=6 H=25 3094-0 LOINC CREATININE 1.12 mg/dL L=0.67 H=1.17 2160-0 LOINC SODIUM SERUM 139 mmol/L L=136 H=145 2951-2 LOINC POTASSIUM SERUM 4.1 mmol/L L=3.4 H=5.2 2823-3 LOINC CHLORIDE SERUM 105 mmol/L L=96 H=110 2075-0 LOINC CARBON DIOXIDE (CO2) 30 mmol/L L=22 H=34 2028-9 LOINC ANION GAP 3.7 mmol/L 44910-0 LOINC CALCIUM SERUM 8.5 mg/dL L=8.2 H=10.2 83792-3 LOINC AGE 72 years eGFR (non-Afr.Amer.) 65 mL/min 35303-1 LOINC eGFR (Afr-Canadian) 78 mL/min 41894-5 LOINC CBC W/ DIFFERENTIAL* - Colle ct Date/Time: 01/01/2023 06:45 [facility] ID: [id number] [address] [place], [place], [address] LOINC: 79521-2 Test Value Unit Reference Range Code Code System Flag WBC 3.63 th/cmm L=5.00 H=10.00 6690-2 LOINC L NEUT % 42.6 % L=40.0 H=80.0 LYMPH % 43.3 % L=10.0 H=50.0 MONO % 11.3 % L=2.0 H=12.0 63010-9 LOINC EOS % 1.9 % L=0.0 H=8.0 BASO % 0.6 % L=0.0 H=3.0 IG % 0.3 % L=0.0 H=1.1 2514-8 LOINC NRBC % 0.0 % L=0.0 H=0.0 56663-6 LOINC NEUT abs count 1.6 th/cmm L=1.6 H=8.4 751-8 LOINC LYMPH abs count 1.6 th/cmm L=1.5 H=4.0 731-0 LOINC MONO abs count 0.4 th/cmm L=0.2 H=1.0 742-7 LOINC EOS abs count 0.1 th/cmm L=0.0 H=0.5 711-2 LOINC BASO abs count 0.0 th/cmm L=0.0 H=0.2 704-7 LOINC IG abs count 0.0 th/cmm L=0.0 H=0.1 29598-7 LOINC NRBC abs count 0.0 mil/cmm L=0.0 H=0.0 68008-2 LOINC RBC 4.89 mil/cmm L=4.30 H=6.20 789-8 LOINC HEMOGLOBIN 15.5 gm/dL L=13.0 H=17.0 718-7 LOINC HEMATOCRIT 46 % L=45 H=52 4544-3 LOINC MCV 94 fL L=82 H=92 787-2 LOINC H MCH 31.7 pg L=27.0 H=31.0 785-6 LOINC H MCHC 33.6 % L=32.0 H=36.0 786-4 LOINC RDW-SD 46.0 fL L=39.0 H=49.0 788-0 LOINC PLATELET COUNT 145 th/cmm L=150 H=450 777-3 LOINC L GLUCOSE FINGER/HEEL CAPILLAR Y - Collect Date/Time: 01/01/2023 03:57 [facility] ID: [id number] [address] [place], [place], [id number] LOINC: 33370-8 Test Value Unit Reference Range Code Code System Flag GLUCOSE CAP 93 mg/dL L=70 H=116 MAGNESIUM SERUM* - Collect D ate/Time: 12/31/2022 17:50 [facility] ID: [id number] [address] [place] [address], [address] LOINC: 98032-8 Test Value Unit Reference Range Code Code System Flag MAGNESIUM 2.0 mg/dL L=1.8 H=2.4 43691-5 LOINC TROPONIN HIGH SENSITIVITY* - Collect Date/Time: 12/31/2022 17:50 [facility] ID: [id number] [address] [place], [place], [address] LOINC: 06238-1 Test Value Unit Reference Range Code Code System Flag TROPONIN HS 9.5 pg/mL L=0.0 H=60.4 Specimen seq. RANDOM COMPREHENSIVE METABOLIC PANE L (CMP) - Collect Date/Time: 12/31/2022 17:50 [facility] ID: [id number] [address] [place] [address], [address] LOINC: 03185-9 Test Value Unit Reference Range Code Code System Flag GLUCOSE 96 mg/dL L=70 H=116 2345-7 LOINC BUN 24 mg/dL L=6 H=25 3094-0 LOINC CREATININE 2.13 mg/dL L=0.67 H=1.17 2160-0 LOINC H SODIUM SERUM 138 mmol/L L=136 H=145 2951-2 LOINC POTASSIUM SERUM 4.3 mmol/L L=3.4 H=5.2 2823-3 LOINC CHLORIDE SERUM 104 mmol/L L=96 H=110 2075-0 LOINC CARBON DIOXIDE (CO2) 27 mmol/L L=22 H=34 2028-9 LOINC ANION GAP 6.8 mmol/L 81974-5 LOINC CALCIUM SERUM 9.2 mg/dL L=8.2 H=10.2 02885-8 LOINC BILIRUBIN TOTAL 0.5 mg/dL L=0.0 H=1.3 1975-2 LOINC ALK. PHOS. 73 U/L L=46 H=116 6768-6 LOINC SGOT (AST) 29 U/L L=15 H=37 1920-8 LOINC SGPT (ALT) 40 U/L L=12 H=78 1742-6 LOINC TOTAL PROTEIN 8.0 gm/dL L=6.0 H=8.0 2885-2 LOINC ALBUMIN 4.0 gm/dL L=3.4 H=5.0 1751-7 LOINC AGE 72 years eGFR (non-Afr.Amer.) 31 mL/min 06394-7 LOINC eGFR (Afr-Canadian) 37 mL/min 07471-1 LOINC CBC W/ DIFFERENTIAL* - Colle ct Date/Time: 12/31/2022 17:50 [facility] ID: [id number] [address] [place] [address], [address] LOINC: 62131-7 Test Value Unit Reference Range Code Code System Flag WBC 5.47 th/cmm L=5.00 H=10.00 6690-2 LOINC NEUT % 49.6 % L=40.0 H=80.0 LYMPH % 39.3 % L=10.0 H=50.0 MONO % 9.1 % L=2.0 H=12.0 69470-4 LOINC EOS % 1.1 % L=0.0 H=8.0 BASO % 0.5 % L=0.0 H=3.0 IG % 0.4 % L=0.0 H=1.1 2514-8 LOINC NRBC % 0.0 % L=0.0 H=0.0 98358-8 LOINC NEUT abs count 2.7 th/cmm L=1.6 H=8.4 751-8 LOINC LYMPH abs count 2.2 th/cmm L=1.5 H=4.0 731-0 LOINC MONO abs count 0.5 th/cmm L=0.2 H=1.0 742-7 LOINC EOS abs count 0.1 th/cmm L=0.0 H=0.5 711-2 LOINC BASO abs count 0.0 th/cmm L=0.0 H=0.2 704-7 LOINC IG abs count 0.0 th/cmm L=0.0 H=0.1 42293-9 LOINC NRBC abs count 0.0 mil/cmm L=0.0 H=0.0 78169-2 LOINC RBC 5.10 mil/cmm L=4.30 H=6.20 789-8 LOINC HEMOGLOBIN 16.3 gm/dL L=13.0 H=17.0 718-7 LOINC HEMATOCRIT 48 % L=45 H=52 4544-3 LOINC MCV 94 fL L=82 H=92 787-2 LOINC H MCH 32.0 pg L=27.0 H=31.0 785-6 LOINC H MCHC 34.2 % L=32.0 H=36.0 786-4 LOINC RDW-SD 45.4 fL L=39.0 H=49.0 788-0 LOINC PLATELET COUNT 180 th/cmm L=150 H=450 777-3 LOINC XR CHEST 2V PA AND LATERAL - Completed: 12/31/2022 19:00 LOINC: [facility] [place], [place] [address] PACS AUTO APPRAISER REPORT Patient Name: GLORIA GARCIA MRN: Sex: : Age: [id number] M 1950 72 Account: Accession: Admit: StayType: [id number] 12/31/2022 E/R Ordered: Order ID: Submitted: Ordering Provider: 12/31/2022 18:20 [id number] AVINASH CARL Completed: Technologist: Resulted: 12/31/2022 19:00 ALS 01/01/2023 10:39 Study Description: XR CHEST 2V PA AND LATERAL Study Reason: Palpitations TECHNIQUE: 2D digital imaging was performed. PA and Lateral views COMPARISON: No exams were available for comparison FINDINGS: Heart size is normal. The mediastinum is not widened. Lungs are clear. There are no infiltrates nor pleural effusions. IMPRESSION: No acute pulmonary findings. Report Digitally Signed by Heri Golden on 01/01/2023 10:39 AM EST Social History Type Status Start Date End Date Code Code Syst em Smoking History Former smoker 6326366 SNOMED CT Sex Male Vital Signs Vital Sign Value Unit [place] Value [place] Unit Date/Time Recent/Initial? Code Code System Body Mass Index 34.16 kg/m2 12/31/2022 22:49 Most Recent 59784 -5 LOINC Body Mass Index 34.45 kg/m2 12/31/2022 17:54 Initial 55794 -5 LOINC Systolic Blood Pressure 139 mm[Hg] 01/01/2023 12:00 Most Recent 8480- 6 LOINC Diastolic Blood Pressure 81 mm[Hg] 01/01/2023 12:00 Most Recent 8462- 4 LOINC Systolic Blood Pressure 145 mm[Hg] 12/31/2022 17:54 Initial 8480- 6 LOINC Diastolic Blood Pressure 81 mm[Hg] 12/31/2022 17:54 Initial 8462- 4 LOINC Body Surface Area 2.35 m2 12/31/2022 22:49 Most Recent 3140- 1 LOINC Body Surface Area 2.37 m2 12/31/2022 17:54 Initial 3140- 1 LOINC Height 180.009 8 cm 70.87 in 12/31/2022 22:49 Most Recent 8302- 2 LOINC Height 180.340 0 cm 71.00 in 12/31/2022 17:54 Initial 8302- 2 LOINC O2 Saturation 99 % 2022 12:00 Most Recent 84006 -5 LOINC O2 Saturation 96 % 2022 17:54 Initial 93555 -5 LOINC Pulse 63.0 /min 01/01/2023 12:00 Most Recent 8867- 4 LOINC Pulse 83.0 /min 12/31/2022 17:54 Initial 8867- 4 LOINC Respiration 18 /min 01/02/20 12:00 Most Recent 9279- 1 LOINC Respiration 14 /min 01/01/20 17:54 Initial 9279- 1 LOINC Temperature 36.5 Yaneth 97.7 F 01/02/20 12:00 Most Recent 8310- 5 LOINC Temperature 35.7 Yaneth 96.3 F 01/01/20 17:54 Initial 8310- 5 LOINC Weight 110.68 kg 244.00 lbs 12/31/2022 22:49 Most Recent 79020 -7 LOINC Weight 112.04 kg 247.00 lbs 12/31/2022 17:54 Initial 12214 -7 [facility] Medication Start Date End Date Route Frequency Dose Code Code System Medication Instructions Home Meds Aspirin EC 325MG Oral Tablet, Enteric Coated 01/01/2023 Unknown ORAL DAILY 325 MILLIGRAMS 588369 RxNorm TAKE 325 MILLIGRAMS ORAL DAILY Clopidogrel 75MG Oral Tablet 01/01/2023 Unknown ORAL DAILY 75 MILLIGRAMS 560025 RxNorm TAKE 75 MILLIGRAMS ORAL DAILY CoQ10 100 MG Oral Capsule 01/01/2023 Unknown ORAL DAILY 100 MG RxNorm TAKE 100 MG ORAL DAILY D3 2000 2000 IU Oral Capsule, Liquid Filled 01/01/2023 Unknown ORAL DAILY 2000 IU RxNorm TAKE 2000 IU ORAL DAILY Depo-Testost erone 200MG/1ML Intramuscula r Oil 01/01/2023 Unknown INTRAMUS CULAR WEEKLY 1 unit(s) 612052 RxNorm INJECT 1 EACH INTRAMUSCULAR WEEKLY Fish Oil 120 MG-180 MG-5 IU Oral Capsule 01/01/2023 Unknown ORAL DAILY 1 unit(s) RxNorm TAKE 1 EACH ORAL DAILY MiraLAX 17GM/1Dose Oral Powder for Solution 01/01/2023 02/10/20 23 ORAL NEEDED DAILY 1 unit(s) 239527 RxNorm TAKE 1 EACH ORAL NEEDED DAILY Nitroglyceri n 0.4MG Sublingual Tablet 01/01/2023 Unknown SUBLINGU AL NEEDED 0.4 MILLIGRAMS 395764 RxNorm DISSOLVE 0.4 MILLIGRAMS SUBLINGUAL NEEDED Protonix 40 MG Oral Tablet, Delayed Release 01/01/2023 Unknown ORAL DAILY 40 MG 447438 RxNorm TAKE 40 MG ORAL DAILY Wellbutrin SR 150MG Oral Tablet, Extended Release, 12 HR 01/01/2023 Unknown ORAL DAILY 150 MILLIGRAMS 958786 RxNorm TAKE 150 MILLIGRAMS ORAL DAILY amLODIPine Besylate 10MG Oral Tablet 01/01/2023 Unknown ORAL DAILY 10 MILLIGRAMS 411776 RxNorm TAKE 10 MILLIGRAMS ORAL DAILY Assessment You had the following problems:ACUTE KIDNEY INJURYPALPITATIONSCORONARY ARTERY DISEASEHISTORY OF ISCHEMIC STROKE Hospital Discharge Instructions Should you have any questions prior to discharge, please contact a member of your healthcare team. If you have left the hospital and have any questions, please contact your primary care physician. Reason For Referral No Data Found Procedures Procedure Name Date Status Code Code Systlydia m Percutaneous coronary intervention completed 4 60546514 SNOMEDCT Radical prostatectomy completed 38087740 SNO MEDCT Nasal surgery completed 62381907 SNOMEDCT Removal of basal cell skin cancer completed 9104005 SNOMEDCT Problems Problem Start Date Resolved Date Status Code Code System ACUTE KIDNEY INJURY active 65738061 SNOMED-CT PALPITATIONS active 04444438 SNOMED- CT CORONARY ARTERY DISEASE active 17198082 SNOMED-CT HISTORY OF ISCHEMIC STROKE active 19251466241641683 SNOMED-CT HISTORY OF CEREBROVASCULAR ACCIDENT 12/31/2022 resolved 446737469 SNOMED-CT PERIPHERAL NEUROPATHY 12/31/2022 resolved 1807602 06 SNOMED-CT NONALCOHOLIC FATTY LIVER DISEASE 12/31/2022 resolved 853367848 SNOMED-CT CORONARY ARTERY DISEASE 12/31/2022 resolved 68585380 SNOMED-CT PERSONAL HISTORY OF CANCER OF PROSTATE 12/31/2022 resolved 135920613 SNOMED-CT Allergies and Adverse Reactions Allergy Substance Reaction Severity Start Date Concern Status Co de Code System SULFA (sulfonamide) Active 87535609 SNO MED-CT swordfish Active 26153319 SNOMED-CT Plan of Treatment No Data Found Encounters Encounter Diagnosis Start Date Code Code Sys tem Acute kidney failure, unspecified 12/31/2022 SNOMED-CT Personal Care Team Section Performer Name Performer Role Active Date Inactive Da te Discharge Summary Notes [facility] 01/01/2023 13:48 All Demographics Patient Name Age Sex Visit Number Admission Date/Time Attending Physician Date of Service Room and Bed Emergency Contact GLORIA GARCIA 1950 72 years Male [id number] 12/31/2022 19:43 SHADY BARNARD 12/31/2022 [id number] TRACY GARCIA - [id number] 01/01/2023 13:41 Discharge Date: 01/01/2023 Admission Diagnosis: Mild acute kidney injury Palpitations Discharge Diagnosis: Mild acute kidney injury, resolved Palpitations Primary Care Physician: Primary Care Physician: No Demographics Available Consulting Physician(s): Procedures: Recommendations: Discharge to home Follow-up with primary care provider today As scheduled Called Dr. Barnard if you would like her to order an outpatient Zio patch (2-week heart monitor). Dr. Barnard cell [phone] Discharge Medications: No change in medication Discharge Meds List amLODIPine Besylate 10MG Oral Tablet, TAKE 10 MILLIGRAMS ORAL DAILY Aspirin EC 325MG Oral Tablet, Enteric Coated, TAKE 325 MILLIGRAMS ORAL DAILY Clopidogrel 75MG Oral Tablet, TAKE 75 MILLIGRAMS ORAL DAILY CoQ10 100 MG Oral Capsule, TAKE 100 MG ORAL DAILY D3 2000 2000 IU Oral Capsule, Liquid Filled, TAKE 2000 IU ORAL DAILY Depo-Testosterone 200MG/1ML Intramuscular Oil, INJECT 1 EACH INTRAMUSCULAR WEEKLY Depo-Testosterone 200MG/1ML Intramuscular Oil, INJECT 1 EACH INTRAMUSCULAR WEEKLY Fish Oil 120 MG-180 MG-5 IU Oral Capsule, TAKE 1 EACH ORAL DAILY MiraLAX 17GM/1Dose Oral Powder for Solution, TAKE 1 EACH ORAL NEEDED DAILY Nitroglycerin 0.4MG Sublingual Tablet, DISSOLVE 0.4 MILLIGRAMS SUBLINGUAL NEEDED Protonix 40 MG Oral Tablet, Delayed Release, TAKE 40 MG ORAL DAILY Wellbutrin SR 150MG Oral Tablet, Extended Release, 12 HR, TAKE 150 MILLIGRAMS ORAL DAILY History of Present Illness Gloria Garcia is a 72-year-old male with medical history significant for coronary artery disease status post PCI x2, history of CVA, fatty liver disease, history of prostate cancer, history of peripheral neuropathy, who presents today with palpitations x1.5 weeks. Patient has been noting episodes of palpitations, feeling like his heart is beating quickly associated with shortness of breath, fatigue, lightheadedness, and mild nausea. These episodes last from seconds to hours and he is having multiple episodes daily. He states that they seem to be exacerbated by exertion but do not occur exclusively with exertion. He does note that he took metoprolol in the past for his heart but had been discontinued at some point. He denies fever, chills, sweats, chest pain, upper respiratory symptoms, changes in bowel habit, dysuria, increased frequency or urgency. In the emergency department patient is afebrile, blood pressure stable, heart rate in the 80s, O2 sats in the 90s on room air. Lab results significant for creatinine 2.13, BUN 24, troponin 9.5. EKG shows normal sinus rhythm at 73 bpm with LAD and LVH. Chest x-ray reveals no acute findings. In the emergency department patient was given normal saline 1 L IV bolus. Hospital Course The patient was provided with gentle intravenous fluids overnight, BUN and creatinine came down to 19 and 1.12 from 24 and 2.13 on admission. He was monitored on telemetry. He had a few short pauses, Some mild bradycardia with heart rate occassionally down into the 40s while sleeping, not sustained, and with no tachy arrhythmias. The patient wonders whether his keto diet with high-protein may have resulted in the creatinine elevation. I think this is certainly possible. He is going to discuss this further with his primary care provider with whom he has an appointment this afternoon. He is going to cut back on his protein intake in the meantime. We discussed sending him home with a Zio patch (2-week heart monitor). He would like to discuss this further with his primary care provider. I have told him that he or his provider can contact me if they would like me to arrange for the Zio patch. I given him my cell phone number. My cell phone number is also listed at the top of this document. We certainly did not see any worrisome arrhythmias while he was monitored overnight here. Labs last 72 hours Test Results Units Reference Range Collected RESULTS NEGATIVE 01/01/2023 13:20 PERFORMED BY Denis James 01/01/2023 13:20 VERIFIED BY Krystina Woodward 01/01/2023 13:20 GLUCOSE 98 mg/dL L=70 H=116 01/01/2023 06:45 BUN 19 mg/dL L=6 H=25 01/01/2023 06:45 CREATININE 1.12 mg/dL L=0.67 H=1.17 01/01/2023 06:45 SODIUM SERUM 139 mmol/L L=136 H=145 01/01/2023 06:45 POTASSIUM SERUM 4.1 mmol/L L=3.4 H=5.2 01/01/2023 06:45 CHLORIDE SERUM 105 mmol/L L=96 H=110 01/01/2023 06:45 CARBON DIOXIDE (CO2) 30 mmol/L L=22 H=34 01/01/2023 06:45 ANION GAP 3.7 mmol/L 01/01/2023 06:45 CALCIUM SERUM 8.5 mg/dL L=8.2 H=10.2 01/01/2023 06:45 WBC 3.63 L th/cmm L=5.00 H=10.00 01/01/2023 06:45 HEMOGLOBIN 15.5 gm/dL L=13.0 H=17.0 01/01/2023 06:45 HEMATOCRIT 46 % L=45 H=52 01/01/2023 06:45 PLATELET COUNT 145 L th/cmm L=150 H=450 01/01/2023 06:45 TROPONIN HS 10.7 pg/mL L=0.0 H=60.4 01/01/2023 06:45 Specimen seq. RANDOM 01/01/2023 06:45 WBC 5.47 th/cmm L=5.00 H=10.00 12/31/2022 17:50 HEMOGLOBIN 16.3 gm/dL L=13.0 H=17.0 12/31/2022 17:50 HEMATOCRIT 48 % L=45 H=52 12/31/2022 17:50 PLATELET COUNT 180 th/cmm L=150 H=450 12/31/2022 17:50 GLUCOSE 96 mg/dL L=70 H=116 12/31/2022 17:50 BUN 24 mg/dL L=6 H=25 12/31/2022 17:50 CREATININE 2.13 H mg/dL L=0.67 H=1.17 12/31/2022 17:50 SODIUM SERUM 138 mmol/L L=136 H=145 12/31/2022 17:50 POTASSIUM SERUM 4.3 mmol/L L=3.4 H=5.2 12/31/2022 17:50 CHLORIDE SERUM 104 mmol/L L=96 H=110 12/31/2022 17:50 CARBON DIOXIDE (CO2) 27 mmol/L L=22 H=34 12/31/2022 17:50 ANION GAP 6.8 mmol/L 12/31/2022 17:50 CALCIUM SERUM 9.2 mg/dL L=8.2 H=10.2 12/31/2022 17:50 BILIRUBIN TOTAL 0.5 mg/dL L=0.0 H=1.3 12/31/2022 17:50 ALK. PHOS. 73 U/L L=46 H=116 12/31/2022 17:50 SGOT (AST) 29 U/L L=15 H=37 12/31/2022 17:50 SGPT (ALT) 40 U/L L=12 H=78 12/31/2022 17:50 TOTAL PROTEIN 8 gm/dL L=6.0 H=8.0 12/31/2022 17:50 ALBUMIN 4 gm/dL L=3.4 H=5.0 12/31/2022 17:50 MAGNESIUM 2 mg/dL L=1.8 H=2.4 12/31/2022 17:50 TROPONIN HS 9.5 pg/mL L=0.0 H=60.4 12/31/2022 17:50 Specimen seq. RANDOM 12/31/2022 17:50 Physical Exam: Vitals: Temperature 36.5 pulse 63 respiratory rate 18 blood pressure 139/81 oxygenation 99% on room air General: Older male who appears comfortable, no acute distress Heart: Regular rate and rhythm with no murmurs rubs gallops appreciated Lungs: Clear with no crackles or wheezes Abdomen: Normoactive bowel sounds, soft and nontender Extremities: No cyanosis clubbing or edema Neurologic: Patient is awake, alert and oriented. Speech is fluent, there is no facial droop, strength is 5+/5 in upper and lower extremities bilaterally. History and Physical Notes [facility] 01/03/2023 14:40 All Demographics Patient Name Age Sex Visit Number Admission Date/Time Attending Physician Date of Service Room and Bed Emergency Contact GLORIA GARCIA 1950 72 years Male [id number] 12/31/2022 19:43 SHADY BARNARD 12/31/2022 [id number] TRACY GARCIA - [id number] 12/31/2022 22:29 Admission Date: 12/31/2022 Reason for Admission: ACUTE KIDNEY INJURY Code Status: Full Code Attending Physician: Shady Barnard MD Primary Care Physician: No Demographics Available Referring Physician: Avinash Dominguez MD History of Present Illness Chief Complaint: Palpitations Gloria Garcia is a 72-year-old male with medical history significant for coronary artery disease status post PCI x2, history of CVA, fatty liver disease, history of prostate cancer, history of peripheral neuropathy, who presents today with palpitations x1.5 weeks. Patient has been noting episodes of palpitations, feeling like his heart is beating quickly associated with shortness of breath, fatigue, lightheadedness, and mild nausea. These episodes last from seconds to hours and he is having multiple episodes daily. He states that they seem to be exacerbated by exertion but do not occur exclusively with exertion. He does note that he took metoprolol in the past for his heart but had been discontinued at some point. He denies fever, chills, sweats, chest pain, upper respiratory symptoms, changes in bowel habit, dysuria, increased frequency or urgency. In the emergency department patient is afebrile, blood pressure stable, heart rate in the 80s, O2 sats in the 90s on room air. Lab results significant for creatinine 2.13, BUN 24, troponin 9.5. EKG shows normal sinus rhythm at 73 bpm with LAD and LVH. Chest x-ray reveals no acute findings. In the emergency department patient was given normal saline 1 L IV bolus. Past Medical/Surgical/Family/Social History Medical History: All Problems Problem Comment History of cerebrovascular accident 2020 Nonalcoholic fatty liver disease Coronary artery disease Status post [place] and "cardiac event with PCI x2, 4 stents placed Personal history of cancer of prostate s/p radical prostatectomy Peripheral neuropathy Surgical History: Percutaneous coronary intervention, x2 with 4 stents placed Radical prostatectomy, Nasal surgery, Removal of basal cell skin cancer, Family History: Family history of pulmonary embolism, FATHER FH of coronary artery disease, MOTHER FH of congestive heart failure, MOTHER Social History: 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 Former smoker has quit multiple times most recently 10 years ago with a ~94-qtkg-zxjy history. Endorses alcohol use up to a couple drinks a day. Has a prescription for medical marijuana. Allergy List SULFA (sulfonamide), medication swordfish Current Medications: Home Meds: Dose and Freq Medication Dosage Frequency Clopidogrel 75MG Oral Tablet 75 MILLIGRAMS DAILY D3 2000 2000 IU Oral Capsule, Liquid Filled 2000 IU DAILY CoQ10 100 MG Oral Capsule 100 MG DAILY MiraLAX 17GM/1Dose Oral Powder for Solution 1 EACH NEEDED DAILY Plavix 75MG Oral Tablet 75 MILLIGRAMS DAILY Wellbutrin SR 150MG Oral Tablet, Extended Release, 12 HR 150 MILLIGRAMS DAILY Aspirin EC 325MG Oral Tablet, Enteric Coated 325 MILLIGRAMS DAILY Nitroglycerin 0.4MG Sublingual Tablet 0.4 MILLIGRAMS NEEDED Fish Oil 120 MG-180 MG-5 IU Oral Capsule 1 EACH DAILY Depo-Testosterone 200MG/1ML Intramuscular Oil 1 EACH WEEKLY amLODIPine Besylate 10MG Oral Tablet 10 MILLIGRAMS DAILY Protonix 40 MG Oral Tablet, Delayed Release 40 MG DAILY REVIEW OF SYSTEMS: CONSTITUTIONAL: Denies fever, sweats, chills EYES: Denies changes in vision ENT: Denies sore throat RESPIRATORY: Endorses shortness of breath HEART: Endorses palpitations. Denies chest pain. ABDOMEN: Endorses nausea. Denies vomiting, diarrhea GENITOURINARY : Denies dysuria, hematuria EXTREMITIES: Denies pain or edema SKIN: Denies rash or abrasion. NEURO: Endorses lightheadedness. Denies headache, dizziness, syncope PHYSCIAL EXAM Most Recent Vital Signs BP (mm/Hg) BP Position/Site Heart Rate Resp Temp (C) Temp (F) SPO2% O2 Device Pain Score Height (cm) Height (in) Weight (kg) Weight (lbs/ozs) 130/82 72 16 35.7 Tympanic 96.3 Tympanic 94 % Room Air 21% 180.3 cm 71 in 112.04 kg 247 lbs GENERAL: Well appearing and well nourished. In no apparent distress. SKIN: Intact, no rashes. No jaundice. [place] and warm with good turgor. HEENT: Normocephalic, atraumatic. Pupils are equal, round and reactive to light. Extraocular muscles are grossly intact. Sclerae are without injection or icterus. Mucous membranes pink and moist. NECK: Supple, without lesions, or adenopathy. No JVD is seen. Trachea midline. CHEST/LUNGS: Clear to auscultation bilaterally. No rales, rhonchi, or wheezes are appreciated. HEART: Regular rate and rhythm. No murmurs, rubs, clicks or gallops. ABDOMEN: Soft, non-tender and non-distended. No hepatosplenomegaly or hernias or masses noted. MUSCULOSKELETAL: Grossly normal gait and station. No misalignment, asymmetry, decreased range of motion, or instability appreciated. EXTREMITIES: No peripheral edema appreciated. No amputations, deformities, or signs of trauma. NEUROLOGIC: The patient is oriented x3. Muscle strength grossly intact in the upper and lower extremities bilaterally. Sensation to pain, touch, and proprioception are grossly normal. PSYCHIATRIC: Mood and affect are appropriate. Memory is intact with good short- and long-term memory recall. Pre-Admission Studies: Lab Results: Last Week Test Results Units Reference Range Collected WBC 5.47 th/cmm L=5.00 H=10.00 12/31/2022 17:50 NEUT % 49.6 % L=40.0 H=80.0 12/31/2022 17:50 LYMPH % 39.3 % L=10.0 H=50.0 12/31/2022 17:50 MONO % 9.1 % L=2.0 H=12.0 12/31/2022 17:50 EOS % 1.1 % L=0.0 H=8.0 12/31/2022 17:50 BASO % 0.5 % L=0.0 H=3.0 12/31/2022 17:50 IG % 0.4 % L=0.0 H=1.1 12/31/2022 17:50 NRBC % 0 % L=0.0 H=0.0 12/31/2022 17:50 NEUT abs count 2.7 th/cmm L=1.6 H=8.4 12/31/2022 17:50 LYMPH abs count 2.2 th/cmm L=1.5 H=4.0 12/31/2022 17:50 MONO abs count 0.5 th/cmm L=0.2 H=1.0 12/31/2022 17:50 EOS abs count 0.1 th/cmm L=0.0 H=0.5 12/31/2022 17:50 BASO abs count 0 th/cmm L=0.0 H=0.2 12/31/2022 17:50 IG abs count 0 th/cmm L=0.0 H=0.1 12/31/2022 17:50 NRBC abs count 0 mil/cmm L=0.0 H=0.0 12/31/2022 17:50 RBC 5.1 mil/cmm L=4.30 H=6.20 12/31/2022 17:50 HEMOGLOBIN 16.3 gm/dL L=13.0 H=17.0 12/31/2022 17:50 HEMATOCRIT 48 % L=45 H=52 12/31/2022 17:50 MCV 94 H fL L=82 H=92 12/31/2022 17:50 MCH 32 H pg L=27.0 H=31.0 12/31/2022 17:50 MCHC 34.2 % L=32.0 H=36.0 12/31/2022 17:50 RDW-SD 45.4 fL L=39.0 H=49.0 12/31/2022 17:50 PLATELET COUNT 180 th/cmm L=150 H=450 12/31/2022 17:50 GLUCOSE 96 mg/dL L=70 H=116 12/31/2022 17:50 BUN 24 mg/dL L=6 H=25 12/31/2022 17:50 CREATININE 2.13 H mg/dL L=0.67 H=1.17 12/31/2022 17:50 SODIUM SERUM 138 mmol/L L=136 H=145 12/31/2022 17:50 POTASSIUM SERUM 4.3 mmol/L L=3.4 H=5.2 12/31/2022 17:50 CHLORIDE SERUM 104 mmol/L L=96 H=110 12/31/2022 17:50 CARBON DIOXIDE (CO2) 27 mmol/L L=22 H=34 12/31/2022 17:50 ANION GAP 6.8 mmol/L 12/31/2022 17:50 CALCIUM SERUM 9.2 mg/dL L=8.2 H=10.2 12/31/2022 17:50 BILIRUBIN TOTAL 0.5 mg/dL L=0.0 H=1.3 12/31/2022 17:50 ALK. PHOS. 73 U/L L=46 H=116 12/31/2022 17:50 SGOT (AST) 29 U/L L=15 H=37 12/31/2022 17:50 SGPT (ALT) 40 U/L L=12 H=78 12/31/2022 17:50 TOTAL PROTEIN 8 gm/dL L=6.0 H=8.0 12/31/2022 17:50 ALBUMIN 4 gm/dL L=3.4 H=5.0 12/31/2022 17:50 AGE 72 years 12/31/2022 17:50 eGFR (non- Afr.Amer.) 31 mL/min 12/31/2022 17:50 eGFR (Afr-Canadian) 37 mL/min 12/31/2022 17:50 MAGNESIUM 2 mg/dL L=1.8 H=2.4 12/31/2022 17:50 TROPONIN HS 9.5 pg/mL L=0.0 H=60.4 12/31/2022 17:50 Specimen seq. RANDOM 12/31/2022 17:50 Imaging: CXR 12/31/22: Impression: No acute findings. No cardiomegaly, consolidation, pleural effusion, or pneumothorax. Assessment/Plan Problem List Acute kidney injury Palpitations Coronary artery disease History of ischemic stroke Acute Kidney Injury- Labs from [facility] 11/22 showed a creatinine of 0.9. Patient has no known history of chronic kidney disease. Creatinine 2.13, BUN 24 on presentation. Given NS 1L IV bolus in the ED. Continue gentle IV fluids overnight. Repeat labs tomorrow. Palpitations- Cardiac workup negative for acute ischemic event- EKG normal sinus rhythm at 73bpm with LVH and LAD but no signs of acute ischemia. Troponin HS 9.5. Will admit patient on telemetry overnight though he may require an outpatient monitor in order to catch an episode. Patient is on aspirin 325mg daily and clopidogrel 75mg daily. Patient has been [facility] by cardiology at [facility] but may prefer follow up locally. Continue home medications as prescribed with exceptions and additions noted above. Estimated length of stay less than two midnights for treatment of acute kidney injury. Ordered Meds List MILK OF MAGNESIA SUSP UD: 2400MG/30ML, PRN DAILY ONDANSETRON INJ SDV: 4MG/2ML, PRN Q4H CALCIUM CARBONATE TAB CHEWABLE UD: 500MG, PRN Q2H ACETAMINOPHEN TABLET: 325MG, PRN Q6H DOCUSATE SODIUM CAPSULE: 100MG, PRN BID SODIUM CHLORIDE 0.9% 1000ML, CONT PANTOPRAZOLE TABLET: 40MG, DAILY EMPTY STOMACH AmLODIPine TABLET: 10MG, DAILY FISH OIL CAPSULE: 500MG, DAILY ASPIRIN TABLET E.C.: 325MG, DAILY WITH FOOD CLOPIDOGREL TABLET: 75MG, DAILY VITAMIN D3 TABLET: 1000UNITS, DAILY CLOPIDOGREL TABLET: 75MG, DAILY INFLUENZA QUADRIVALENT INJ SYR 0.5ML, X1 Ordered Meds List MILK OF MAGNESIA SUSP UD: 2400MG/30ML, PRN DAILY ONDANSETRON INJ SDV: 4MG/2ML, PRN Q4H CALCIUM CARBONATE TAB CHEWABLE UD: 500MG, PRN Q2H ACETAMINOPHEN TABLET: 325MG, PRN Q6H DOCUSATE SODIUM CAPSULE: 100MG, PRN BID
--- OUTSIDE RECORDS SUMMARY | 2024-07-19 22:19 | XMS_ITS ---
Author Organization Unknown Address [address] [place] [address] [phone] Phone Care Team Providers Care Project Control Analyst Name Role Phone AKIL Benavides Attending Unavailable ALEKSANDER Oneill Secondary Unavailable Social History Type Status Start Date End Date Code Code Syst em Smoking History Former smoker 6976963 SNOMED CT Sex Male Medications Medication Start Date End Date Route Frequency Dose Code Code System Medication Instructions Home Meds Aspirin EC 325MG Oral Tablet, Enteric Coated 01/01/2023 Unknown ORAL DAILY 325 MILLIGRAMS 360606 RxNorm TAKE 325 MILLIGRAMS ORAL DAILY Clopidogrel 75MG Oral Tablet 01/01/2023 Unknown ORAL DAILY 75 MILLIGRAMS 780463 RxNorm TAKE 75 MILLIGRAMS ORAL DAILY CoQ10 100 MG Oral Capsule 01/01/2023 Unknown ORAL DAILY 100 MG RxNorm TAKE 100 MG ORAL DAILY D3 2000 2000 IU Oral Capsule, Liquid Filled 01/01/2023 Unknown ORAL DAILY 2000 IU RxNorm TAKE 2000 IU ORAL DAILY Depo-Testost erone 200MG/1ML Intramuscula r Oil 01/01/2023 Unknown INTRAMUS CULAR WEEKLY 1 unit(s) 584622 RxNorm INJECT 1 EACH INTRAMUSCULAR WEEKLY Fish Oil 120 MG-180 MG-5 IU Oral Capsule 01/01/2023 Unknown ORAL DAILY 1 unit(s) RxNorm TAKE 1 EACH ORAL DAILY MiraLAX 17GM/1Dose Oral Powder for Solution 01/01/2023 02/10/20 23 ORAL NEEDED DAILY 1 unit(s) 959185 RxNorm TAKE 1 EACH ORAL NEEDED DAILY Nitroglyceri n 0.4MG Sublingual Tablet 01/01/2023 Unknown SUBLINGU AL NEEDED 0.4 MILLIGRAMS 708626 RxNorm DISSOLVE 0.4 MILLIGRAMS SUBLINGUAL NEEDED Protonix 40 MG Oral Tablet, Delayed Release 01/01/2023 Unknown ORAL DAILY 40 MG 369566 RxNorm TAKE 40 MG ORAL DAILY Wellbutrin SR 150MG Oral Tablet, Extended Release, 12 HR 01/01/2023 Unknown ORAL DAILY 150 MILLIGRAMS 955286 RxNorm TAKE 150 MILLIGRAMS ORAL DAILY amLODIPine Besylate 10MG Oral Tablet 01/01/2023 Unknown ORAL DAILY 10 MILLIGRAMS 011624 RxNorm TAKE 10 MILLIGRAMS ORAL DAILY Assessment [...] Code Code System ACUTE KIDNEY INJURY active 99583323 SNOMED-CT PALPITATIONS active 58969390 SNOMED- CT CORONARY ARTERY DISEASE active 61599909 SNOMED-CT HISTORY OF ISCHEMIC STROKE active 34451067884344870 SNOMED-CT HISTORY OF CEREBROVASCULAR ACCIDENT 12/31/2022 resolved 476480226 SNOMED-CT PERIPHERAL NEUROPATHY 12/31/2022 resolved 1758230 06 SNOMED-CT NONALCOHOLIC FATTY LIVER DISEASE 12/31/2022 resolved 539738269 SNOMED-CT CORONARY ARTERY DISEASE 12/31/2022 resolved 94683910 SNOMED-CT PERSONAL HISTORY OF CANCER OF PROSTATE 12/31/2022 resolved 873894067 SNOMED-CT Allergies and Adverse Reactions Allergy Substance Reaction Severity Start Date Concern Status Co de Code System SULFA (sulfonamide) Active 54405967 SNO MED-CT swordfish Active 20845674 SNOMED-CT Plan of Treatment No Data Found Encounters Encounter Diagnosis Start Date Code Code Sys tem Acute kidney failure, unspecified 12/31/2022 SNOMED-CT Personal Care Team Section Performer Name Performer Role Active Date Inactive Da te
--- OUTSIDE RECORDS SUMMARY | 2024-07-19 22:19 | XMS_ITS | Encounter Summary ---
Author Organization [facility] Address [facility] [place] [address] Care Team Providers Care Rf Design Engineer Name Role Phone Marco Aleman MD Primary Care Provider [phone] Encounter Details Date Type Department Care Team (Late st Contact Info) Description 01/20/2005 [place] [phone] Asad Encinas MD [facility] [place] [address] Social History Tobacco Use Types Packs/Day Years [...] 10:30 AM EDT Hospital En[place] [address] Navi Montero MD [facility] [place] [address] 08/09/2024 10:30 AM EDT - 08/09/2024 11:15 AM EDT [place] [phone] Navi Montero MD [facility] [place] [address] COLONOSCOPY,SCREENI NG (WRVU 3.26) Scheduled Procedures Name Priority Associated Diagnoses Date/Ti me COLONOSCOPY,SCREENING (WRVU 3.26) polyps 08/09/2024 10:30 AM EDT documented as of this encounter Procedures Procedure Name Priority Date/Time Associated Diagnosis Comments SURGICAL PATHOLOGY REPORT Routine 01/20/2005 5:28 PM EST documented in this encounter Results * Surgical Pathology Report (01/20/2005 5:28 PM EST) Surgical Pathology Report [id number] ? Location: [facility]; [facility]; The signing pathologist has (i) examined the relevant preparation(s) for the specimen(s) and (ii) rendered or confirmed the diagnosis(es). . ?Pathology Surgical Pathology Final Report Clinical Information Specimen Submitted: A - Prostate/seminal vesicles - stitch @ Rt apex; Pelvis B - Posterior bladder neck, pelvis Clinical History: Prostate Cancer Gross Description A - Labeled/Fixative: ?Prostate/seminal vesicles - stitch at RT ? ap, fresh. Qty/Size/Weight: ? Single, 7.2 x 4.6 x 3.6 cm, 46 g ? (fixed state). Tissue Description: ?Prostate with attached bilateral seminal ? vesicles and vasa deferentia, and suture ? marking right apex. ?? Length of adnexa: ?Rt Seminal Vesicle: ??4.2 cm. ?Lt Seminal Vesicle: ??4.3 cm. ?Rt Vas Deferens: ? 3.8 cm. ?Lt Vas Deferens: ? 3.8 cm. ?? Outer Surface: ?Diaz, smooth, and glistening on the lateral ? aspects with extensive cautery artifact ? elsewhere. ?? Cut Surface: ?Diaz-pink, whorled. ??Right lobe slightly ? larger than the left lobe, and at the ? posterior aspect there is a white-yellow, ? firm area in slices III-VII. Sections/Processing: ? The right half of the specimen is inked ? black and the left half yellow. ??The prostate is serially sectioned from apex to base at 3-mm intervals. ??The 3-mm apical slice is divided into anterior and posterior halves. ??Each half of the apical slice is then serially sectioned perpendicular to the inked apical resection margin and submitted separately as anterior and posterior apical margins. ??Beginning with the transverse slice immediately next to the apical slice, every other remaining transverse slice is first bisected into right and left halves, and each half is then further bisected into anterior and posterior quadrants. ??A shallow score adrian is made in the medial cut edge of each quadrant. Sections of the transverse slices are submitted in the ??following sequence: ??Right anterior quadrant, right posterior quadrant, left anterior quadrant, and left posterior quadrant. ??Each seminal vesicle is serially sectioned longitudinally, and both sides are entirely submitted. ??These sections will show the area from the basal end out toward the tip. ??The bilateral vas deferens margins are submitted with the seminal vesicle. ??(1) apical anterior margin; (2) apical posterior margin. ??Slices II, IV, , and VIII are entirely submitted in the sequence of quadrants as noted above, as follows: ??(3-6) slice II; (7-10) slice IV; (11-14) slice ; (15-18) slice VIII, with left anterior slice bisected (17); (19-20) right seminal vesicle (one half, longitudinally sectioned); (19) also contains tip of right vas deferens; (21-22) left seminal vesicle (one half, longitudinally sectioned); (22) also contains tip of left vas deferens; ??(23-26) slice III; ??(27-30) slice V; (32-34) slice VII. ??(T34) B - Labeled/Fixative: Posterior bladder neck, formalin. Qty/Size/Weight: ?Overall, 2.7 x 1.8 x 0.8 cm. . Gross Description Tissue Description: ?? Diaz-brown, firm, rubbery, unoriented fragment ?with extensive cautery artifact. Sections/Processing: ??Serially sectioned. ??(T2) ??aje/ETH Microscopic Description Slides reviewed, microscopic description not recorded. Immunohistochemistry Studies: Interpretation: ??Formalin-fixed, paraffin-embedded tissue sections are studied for P504S using the Avidin-Biotin Complex Technique with appropriate controls. These immunohistochemical studies provide ancillary information and are used only in conjunction with standard diagnostic procedures. Diagnosis A - Prostate, radical prostatectomy: ?Multifocal high grade prostatic intraepithelial neoplasia ?(see Comment). ?Nodular glandular and stromal hyperplasia. ?Focal acute and chronic inflammation. B - Bladder (posterior neck): ?Fibromuscular tissue, consistent with bladder wall, and fragments ?of fibroadipose tissue; epithelial cells are not observed. CR-0 01/22/05 [facility] 01/27/05 Verified by: ? Tashi Gamez MD, PhD ?Pathologist ?(Electronic Signature) The attending pathologist whose signature appears on this report has reviewed all diagnostic slides and has edited the gross and/or microscopic portion of the report in rendering the final pathologic diagnosis. Comment The entire prostate is submitted for histologic evaluation. ??Immunohistochemical stains for P504S demonstrate focal positive staining, consistent with high grade PIN. ??There is no evidence of invasive carcinoma. RACHEL SALASLYNDSEY 01/20/2005 5:28 PM EST Asad Encinas MD PATHOLOGY/CYTOLOGY O RDERABLES Performing Organization Address City/State/[facility] Co de Phone Number RACHEL DOMINGUEZ documented in this encounter Visit Diagnoses Not on filedocumented in this encounter Care Teams Rf Design Engineer Relationship Specialty Start Date End Date Marco Aleman MD [address] [place] [address] PCP - General Family Medicine 06/05/23 documented as of this encounter
--- OUTSIDE RECORDS SUMMARY | 2024-07-19 22:19 | XMS_ITS ---
Author Organization Unknown Address [address] [place] [address] [phone] Phone Care Team Providers Care Bridge Worker Name Role Phone YULIA Farooq Attending Unavailable CHINA Oneill Primary Unavailable Results CBC W/ DIFFERENTIAL* - Colle ct Date/Time: 03/11/2023 16:10 [facility] ID: [id number] [address] [place] [address], 5661 LOINC: 33501-1 Test Value Unit Reference Range Code Code System Flag WBC 6.13 th/cmm L=5.00 H=10.00 6690-2 LOINC NEUT % 61.8 % L=40.0 H=80.0 LYMPH % 27.6 % L=10.0 H=50.0 MONO % 8.8 % L=2.0 H=12.0 26373-5 LOINC EOS % 1.0 % L=0.0 H=8.0 BASO % 0.5 % L=0.0 H=3.0 IG % 0.3 % L=0.0 H=1.1 2514-8 LOINC NRBC % 0.0 % L=0.0 H=0.0 92034-4 LOINC NEUT abs count 3.8 th/cmm L=1.6 H=8.4 751-8 LOINC LYMPH abs count 1.7 th/cmm L=1.5 H=4.0 731-0 LOINC MONO abs count 0.5 th/cmm L=0.2 H=1.0 742-7 LOINC EOS abs count 0.1 th/cmm L=0.0 H=0.5 711-2 LOINC BASO abs count 0.0 th/cmm L=0.0 H=0.2 704-7 LOINC IG abs count 0.0 th/cmm L=0.0 H=0.1 37841-2 LOINC NRBC abs count 0.0 mil/cmm L=0.0 H=0.0 67413-0 LOINC RBC 4.07 mil/cmm L=4.30 H=6.20 789-8 LOINC L HEMOGLOBIN 12.2 gm/dL L=13.0 H=17.0 718-7 LOINC L HEMATOCRIT 39 % L=45 H=52 4544-3 LOINC L MCV 96 fL L=82 H=92 787-2 LOINC H MCH 30.0 pg L=27.0 H=31.0 785-6 LOINC MCHC 31.3 % L=32.0 H=36.0 786-4 LOINC L RDW-SD 49.8 fL L=39.0 H=49.0 788-0 LOINC H PLATELET COUNT 227 th/cmm L=150 H=450 777-3 LOINC Social History Type Status Start Date End Date Code Code Syst em Smoking History Former smoker 6964479 SNOMED CT Sex Male Medications Medication Start Date End Date Route Frequency Dose Code Code System Medication Instructions Home Meds Aspirin EC 325MG Oral Tablet, Enteric Coated 01/01/2023 Unknown ORAL DAILY 325 MILLIGRAMS 606300 RxNorm TAKE 325 MILLIGRAMS ORAL DAILY Clopidogrel 75MG Oral Tablet 01/01/2023 Unknown ORAL DAILY 75 MILLIGRAMS 439370 RxNorm TAKE 75 MILLIGRAMS ORAL DAILY CoQ10 100 MG Oral Capsule 01/01/2023 Unknown ORAL DAILY 100 MG RxNorm TAKE 100 MG ORAL DAILY D3 2000 2000 IU Oral Capsule, Liquid Filled 01/01/2023 Unknown ORAL DAILY 2000 IU RxNorm TAKE 2000 IU ORAL DAILY Depo-Testost erone 200MG/1ML Intramuscula r Oil 01/01/2023 Unknown INTRAMUS CULAR WEEKLY 1 unit(s) 833286 RxNorm INJECT 1 EACH INTRAMUSCULAR WEEKLY Fish Oil 120 MG-180 MG-5 IU Oral Capsule 01/01/2023 Unknown ORAL DAILY 1 unit(s) RxNorm TAKE 1 EACH ORAL DAILY Nitroglyceri n 0.4MG Sublingual Tablet 01/01/2023 Unknown SUBLINGU AL NEEDED 0.4 MILLIGRAMS 344417 RxNorm DISSOLVE 0.4 MILLIGRAMS SUBLINGUAL NEEDED Protonix 40 MG Oral Tablet, Delayed Release 01/01/2023 Unknown ORAL DAILY 40 MG 067618 RxNorm TAKE 40 MG ORAL DAILY Wellbutrin SR 150MG Oral Tablet, Extended Release, 12 HR 01/01/2023 Unknown ORAL DAILY 150 MILLIGRAMS 363853 RxNorm TAKE 150 MILLIGRAMS ORAL DAILY amLODIPine Besylate 10MG Oral Tablet 01/01/2023 Unknown ORAL DAILY 10 MILLIGRAMS 693741 RxNorm TAKE 10 MILLIGRAMS ORAL DAILY Assessment [...] Code Code System ACUTE KIDNEY INJURY active 66510733 SNOMED-CT PALPITATIONS active 18845033 SNOMED- CT CORONARY ARTERY DISEASE active 51604204 SNOMED-CT HISTORY OF ISCHEMIC STROKE active 79452925468001250 SNOMED-CT HISTORY OF CEREBROVASCULAR ACCIDENT 12/31/2022 resolved 234414031 SNOMED-CT PERIPHERAL NEUROPATHY 12/31/2022 resolved 0862417 06 SNOMED-CT NONALCOHOLIC FATTY LIVER DISEASE 12/31/2022 resolved 384584244 SNOMED-CT CORONARY ARTERY DISEASE 12/31/2022 resolved 54562105 SNOMED-CT PERSONAL HISTORY OF CANCER OF PROSTATE 12/31/2022 resolved 797577369 SNOMED-CT Allergies and Adverse Reactions Allergy Substance Reaction Severity Start Date Concern Status Co de Code System SULFA (sulfonamide) Active 77167010 SNO MED-CT swordfish Active 69287197 SNOMED-CT Plan of Treatment No Data Found Encounters Encounter Diagnosis Start Date Code Code Sys tem Acute posthemorrhagic anemia 03/11/2023 957493490 SNOMED-CT Personal Care Team Section Performer Name Performer Role Active Date Inactive Da te
--- OUTSIDE RECORDS SUMMARY | 2024-07-19 22:19 | XMS_ITS ---
Author Organization Unknown Address [address] [place] [address] [phone] Phone Care Team Providers Care Teletype Technician Name Role Phone CHINA Oneill Attending Unavailable Results TESTOSTERONE TOTAL* - Collec t Date/Time: 03/10/2023 08:17 [facility] ID: [id number] [address] [place] [address], [phone] LOINC: 2986-8 Test Value Unit Reference Range Code Code System Flag Testosterone 343 229-902 LIPID PANEL* - Collect Date/ Time: 03/10/2023 08:17 [facility] ID: [id number] [address] [place] [address], [id number] LOINC: Test Value Unit Reference Range Code Code System Flag FASTING STATUS: FASTING CHOLESTEROL 141 mg/dL L=0 H=200 2093-3 LOINC TRIGLYCERIDES 110 mg/dL L=56 H=240 2571-8 LOINC HDL 35 mg/dL L=30 H=74 2085-9 LOINC non-HDL-C 106 mg/dL L=0 H=160 26618-5 LOINC LDL (CALC) 84 mg/dL L=0 H=130 02679-9 LOINC % HDL 24.8 % Chol/HDL Ratio 4.0 L=0.0 H=4.9 9830-1 LOINC CHD Relative Risk 0.8 x Avg L=0.0 H=1.0 LDL/HDL Ratio 2.4 L=0.0 H=3.5 99310-4 LOINC CHD Relative Risk. 0.7 x Avg L=0.0 H=1.0 Social History Type Status Start Date End Date Code Code Syst em Smoking History Former smoker 4521162 SNOMED CT Sex Male Medications Medication Start Date End Date Route Frequency Dose Code Code System Medication Instructions Home Meds Aspirin EC 325MG Oral Tablet, Enteric Coated 01/01/2023 Unknown ORAL DAILY 325 MILLIGRAMS 569077 RxNorm TAKE 325 MILLIGRAMS ORAL DAILY Clopidogrel 75MG Oral Tablet 01/01/2023 Unknown ORAL DAILY 75 MILLIGRAMS 939957 RxNorm TAKE 75 MILLIGRAMS ORAL DAILY CoQ10 100 MG Oral Capsule 01/01/2023 Unknown ORAL DAILY 100 MG RxNorm TAKE 100 MG ORAL DAILY D3 2000 2000 IU Oral Capsule, Liquid Filled 01/01/2023 Unknown ORAL DAILY 2000 IU RxNorm TAKE 2000 IU ORAL DAILY Depo-Testost erone 200MG/1ML Intramuscula r Oil 01/01/2023 Unknown INTRAMUS CULAR WEEKLY 1 unit(s) 112458 RxNorm INJECT 1 EACH INTRAMUSCULAR WEEKLY Fish Oil 120 MG-180 MG-5 IU Oral Capsule 01/01/2023 Unknown ORAL DAILY 1 unit(s) RxNorm TAKE 1 EACH ORAL DAILY Nitroglyceri n 0.4MG Sublingual Tablet 01/01/2023 Unknown SUBLINGU AL NEEDED 0.4 MILLIGRAMS 320862 RxNorm DISSOLVE 0.4 MILLIGRAMS SUBLINGUAL NEEDED Protonix 40 MG Oral Tablet, Delayed Release 01/01/2023 Unknown ORAL DAILY 40 MG 009474 RxNorm TAKE 40 MG ORAL DAILY Wellbutrin SR 150MG Oral Tablet, Extended Release, 12 HR 01/01/2023 Unknown ORAL DAILY 150 MILLIGRAMS 892531 RxNorm TAKE 150 MILLIGRAMS ORAL DAILY amLODIPine Besylate 10MG Oral Tablet 01/01/2023 Unknown ORAL DAILY 10 MILLIGRAMS 388017 RxNorm TAKE 10 MILLIGRAMS ORAL DAILY Assessment [...] Code Code System ACUTE KIDNEY INJURY active 67079633 SNOMED-CT PALPITATIONS active 74923131 SNOMED- CT CORONARY ARTERY DISEASE active 19078415 SNOMED-CT HISTORY OF ISCHEMIC STROKE active 79611614239921387 SNOMED-CT HISTORY OF CEREBROVASCULAR ACCIDENT 12/31/2022 resolved 690919847 SNOMED-CT PERIPHERAL NEUROPATHY 12/31/2022 resolved 0974185 06 SNOMED-CT NONALCOHOLIC FATTY LIVER DISEASE 12/31/2022 resolved 840988892 SNOMED-CT CORONARY ARTERY DISEASE 12/31/2022 resolved 95553052 SNOMED-CT PERSONAL HISTORY OF CANCER OF PROSTATE 12/31/2022 resolved 493756720 SNOMED-CT Allergies and Adverse Reactions Allergy Substance Reaction Severity Start Date Concern Status Co de Code System SULFA (sulfonamide) Active 12423621 SNO MED-CT swordfish Active 97352764 SNOMED-CT Plan of Treatment No Data Found Encounters Encounter Diagnosis Start Date Code Code Sys tem Therapeutic drug monitoring assay 03/10/2023 8142956 0 SNOMED-CT Personal Care Team Section Performer Name Performer Role Active Date Inactive Da corey
--- OUTSIDE RECORDS SUMMARY | 2024-07-19 22:19 | XMS_ITS ---
Author Organization Unknown Address [address] [place] [address] [phone] Phone Care Team Providers Care Supervisor Insulation Name Role Phone ZOHRA Sevilla Attending Unavailable CHINA Oneill Primary Unavailable Social History Type Status Start Date End Date Code Code Syst em Smoking History Former smoker 2966345 SNOMED CT Sex Male Medications Medication Start Date End Date Route Frequency Dose Code Code System Medication Instructions Home Meds Aspirin EC 325MG Oral Tablet, Enteric Coated 01/01/2023 Unknown ORAL DAILY 325 MILLIGRAMS 880124 RxNorm TAKE 325 MILLIGRAMS ORAL DAILY Clopidogrel 75MG Oral Tablet 01/01/2023 Unknown ORAL DAILY 75 MILLIGRAMS 390252 RxNorm TAKE 75 MILLIGRAMS ORAL DAILY CoQ10 100 MG Oral Capsule 01/01/2023 Unknown ORAL DAILY 100 MG RxNorm TAKE 100 MG ORAL DAILY D3 2000 2000 IU Oral Capsule, Liquid Filled 01/01/2023 Unknown ORAL DAILY 2000 IU RxNorm TAKE 2000 IU ORAL DAILY Depo-Testost erone 200MG/1ML Intramuscula r Oil 01/01/2023 Unknown INTRAMUS CULAR WEEKLY 1 unit(s) 748481 RxNorm INJECT 1 EACH INTRAMUSCULAR WEEKLY Fish Oil 120 MG-180 MG-5 IU Oral Capsule 01/01/2023 Unknown ORAL DAILY 1 unit(s) RxNorm TAKE 1 EACH ORAL DAILY Nitroglyceri n 0.4MG Sublingual Tablet 01/01/2023 Unknown SUBLINGU AL NEEDED 0.4 MILLIGRAMS 755218 RxNorm DISSOLVE 0.4 MILLIGRAMS SUBLINGUAL NEEDED Protonix 40 MG Oral Tablet, Delayed Release 01/01/2023 Unknown ORAL DAILY 40 MG 966880 RxNorm TAKE 40 MG ORAL DAILY Wellbutrin SR 150MG Oral Tablet, Extended Release, 12 HR 01/01/2023 Unknown ORAL DAILY 150 MILLIGRAMS 815048 RxNorm TAKE 150 MILLIGRAMS ORAL DAILY amLODIPine Besylate 10MG Oral Tablet 01/01/2023 Unknown ORAL DAILY 10 MILLIGRAMS 477327 RxNorm TAKE 10 MILLIGRAMS ORAL DAILY Assessment [...] Code Code System ACUTE KIDNEY INJURY active 12907654 SNOMED-CT PALPITATIONS active 09108526 SNOMED- CT CORONARY ARTERY DISEASE active 72696580 SNOMED-CT HISTORY OF ISCHEMIC STROKE active 06659507982947032 SNOMED-CT HISTORY OF CEREBROVASCULAR ACCIDENT 12/31/2022 resolved 762550848 SNOMED-CT PERIPHERAL NEUROPATHY 12/31/2022 resolved 9830825 06 SNOMED-CT NONALCOHOLIC FATTY LIVER DISEASE 12/31/2022 resolved 923013896 SNOMED-CT CORONARY ARTERY DISEASE 12/31/2022 resolved 46172967 SNOMED-CT PERSONAL HISTORY OF CANCER OF PROSTATE 12/31/2022 resolved 819279250 SNOMED-CT Allergies and Adverse Reactions Allergy Substance Reaction Severity Start Date Concern Status Co de Code System SULFA (sulfonamide) Active 37695123 SNO MED-CT swordfish Active 16505116 SNOMED-CT Plan of Treatment No Data Found Encounters Encounter Diagnosis Start Date Code Code Sys tem Abnormal findings diagnostic imaging heart+coronary circulat 02/19/2023 463752960 SNOMED-CT Personal Care Team Section Performer Name Performer Role Active Date Inactive Da te
== END 2024-07-19 22:08 | disposition home or self-care (01) ==
LOC: NCHCN 22:07
PROVIDERS: PCP Family Medicine; Visit Provider Family Medicine
DX: R10.9 Unspecified abdominal pain (principal)
CPT/HCPCS: 80053; 83690; 81003; 85025

== ENCOUNTER 2024-11-07 21:12 | Outpatient (REF) | payer MEDICARE, SELFPAY ==
[2024-11-08 18:24] LABS: PSA, Diagnostic <0.1 ng/mL (<=6.5)
== END 2024-11-07 21:13 | disposition home or self-care (01) ==
LOC: NCHCN 21:12
PROVIDERS: PCP Family Medicine; Visit Provider Family Medicine
DX: F52.21 Male erectile disorder (principal); Z12.5 Encounter for screening for malignant neoplasm of prostate
CPT/HCPCS: 84153